=== PATIENT | male | born 1990 | race African-American/Black ===

== ENCOUNTER 2023-03-05 01:16 | Emergency (ER) | payer OTHER, SELFPAY ==
--- NOTE | ~2023-03-05 | XR_ITS ---
Clinical Indication: Chest pain PA and lateral views of the chest: Comparison: None Findings: The lungs are clear, without evidence of focal consolidation or pleural effusion. Cardiome diastinal silhouette is within normal limits. Bones and soft tissues are unremarkable. Impression: Normal chest. Reviewed, dictated and finalized at location . Impression: Normal chest.
--- NOTE | 2023-03-05 01:19 | ECG_ITS ---
Measurements Intervals [place] Rate: 93 P: 47 AR: 167 QRS: 83 QRSD: 102 T: -15 QT: 311 QTc: 387 Interpretive Statements SINUS RHYTHM POSSIBLE LEFT ATRIAL ENLARGEMENT [-0.1mV P WAVE IN V1/V2] POSSIBLE LEFT VENTRICULAR HYPERTROPHY [VOLTAGE CRITERIA PLUS LAE OR QRS WIDENING] ST SEGMENT ELEVATION CONSISTENT WITH ACUTE ANTERIOR WALL CO ABNORMAL ECG ACUTE CO NO PREVIOUS ECG AVAILABLE FOR COMPARISON Electronically Signed On 03-05-2023 13:01:17 CDT by Kev Pereira M.D.
[2023-03-05 01:24] VITALS: BP 118/84; PULSE 99; RESP 14; O2SAT 97
[2023-03-05 01:32] VITALS: PULSE 90
[2023-03-05 01:44] LABS: Basophils Percent Auto 0.3 % (0.2-1.2); Eosinophils Absolute Auto 0.2 K/mm3 (0-0.3); Eosinophils Percent Auto 2.9 % (0-4.4); Hematocrit 41.6 % (42.0-52.0); Hemoglobin 13.5 g/dL (14.0-18.0); Immature Granulocyte Absolute 0.01 K/mm3 (0.00-0.031); Immature Granulocyte Percent A 0.2 % (0-0.5); Lymphocytes Absolute Auto 1.81 K/mm3 (0.9-3.2); Lymphocytes Percent Auto 29.6 % (18.3-44.2); Mean Corpuscular HGB Conc 32.5 g/dl (32-36); Mean Corpuscular Hemoglobin 29.1 pg (26-34); Mean Corpuscular Volume 89.7 fl (80-100); Mean Platelet Volume 9.8 fl (7.4-10.4); Monocytes Absolute Auto 0.7 K/mm3 (0.1-0.6); Monocytes Percent Auto 11.1 % (2.6-8.5); Neutrophils Absolute Auto 3.4 K/mm3 (1.3-6.7); Neutrophils Percent Auto 55.9 % (45.5-73.1); Platelet Count Result 242 k/mm3 (150-375); Red Blood Count 4.64 M/mm3 (4.6-6.20); White Blood Count 6.1 K/mm3 (4.5-10.0)
[2023-03-05 01:56] LABS: Partial Thromboplastin Time 29.7 SECONDS (22.3-36.8)
[2023-03-05 01:58] LABS: Alanine Aminotransferase 29 U/L (6-50); Albumin Level 4.4 g/dL (3.5-5.1); Alkaline Phosphatase 61 U/L (38-126); Anion Gap 9 mmol/L (8-16); Aspartate Amino Transferase 35 U/L (17-59); Bilirubin,Total 0.2 mg/dL (0.2-1.3); Blood Urea Nitrogen 18 mg/dL (9-20); Calcium 9.2 mg/dL (8.4-10.2); Carbon Dioxide 21 mmol/L (22-30); Chloride 105 mmol/L (98-107); Estimated CRCL calculation 80 ml/min; Estimated Glomerular Filt Rate > 60; Glucose 105 mg/dL (65-110); Lipase 95 U/L (23-300); Potassium 4.1 mmol/L (3.4-5.0); Sodium 135 mmol/L (137-145)
[2023-03-05 02:00] VITALS: BP 125/78; PULSE 89; RESP 16; O2SAT 100
[2023-03-05 02:10] LABS: Troponin I < 0.012 ng/mL (0.000-0.034)
--- NOTE | 2023-03-05 02:48 | ED.GENADULT ---
HPI - General Adult General Chief complaint: Chest Pain Stated complaint: CHEST PAIN Time Seen by Provider: 03/05/23 01:24 History of Present Illness HPI narrative: Patient is a 32-year-old gentleman who presents the emergency department with chief complaint of chest pain. Patient reports has been having chest pain for some time reports has been seen at both [place] and [place] and has been told that he had something irritating his heart and was given a prescription for steroids and ibuprofen patient reports that is not getting any better and reports that he has not followed up. Related Data Allergies Allergy/AdvReac Type Severity Reaction Status Date / Time No Known Allergies Allergy Verified 03/05/23 02:11 Review of Systems Review of Systems: A 10 system review of systems was completed on the patient and is negative except for what is stated in the HPI. Nursing and ancillary documentation was reviewed. Exam Narrative: GENERAL: Well-appearing, well-nourished, and in no acute distress. HEAD: Normocephalic, atraumatic. EYES: PERRLA and EOMI. ENT: Nares clear, no rhinorrhea or epistaxis. Mucous membranes moist. NECK: Supple. CHEST: Clear to auscultation. No respiratory distress. HEART: Regular rate and rhythm. No murmur heard. Normal peripheral pulses. ABDOMEN: Soft, nontender, nondistended, normal active bowel sounds. EXTREMITIES: Normal range of motion. No edema. SKIN: Warm, dry, no rash. NEURO: No focal deficits. Alert and oriented x3. PSYCH: Normal mood and affect. Course Vital Signs Vital signs: Vital Signs Pulse Rate 99 03/05/23 01:24 Respiratory Rate 14 03/05/23 01:24 Blood Pressure 118/84 03/05/23 01:24 Pulse Oximetry 97 03/05/23 01:24 Oxygen Delivery Room Air 03/05/23 01:24 Pulse Rate 90 03/05/23 01:32 Respiratory Rate 14 03/05/23 01:24 Blood Pressure 118/84 03/05/23 01:24 Pulse Oximetry 97 03/05/23 01:24 Oxygen Delivery Room Air 03/05/23 01:24 Medical Decision Making [facility] Narrative Medical decision making narrative: Differential diagnosis includes ACS, STEMI, pericarditis, EKG showed diffuse ST elevations present with a rate of 93 EKG was compared to previous EKG from [place] that was obtained which showed pericarditis picture similar to today's EKG Laboratory studies were obtained and otherwise normal The patient be started on colchicine and also given a prescription for prednisone Vital Signs Vital Signs: Vital Signs Pulse Rate 99 03/05/23 01:24 Respiratory Rate 14 03/05/23 01:24 Blood Pressure 118/84 03/05/23 01:24 Pulse Oximetry 97 03/05/23 01:24 Oxygen Delivery Room Air 03/05/23 01:24 Pulse Rate 90 03/05/23 01:32 Respiratory Rate 14 03/05/23 01:24 Blood Pressure 118/84 03/05/23 01:24 Pulse Oximetry 97 03/05/23 01:24 Oxygen Delivery Room Air 03/05/23 01:24 Lab Data 03/05/23 01:39 03/05/23 01:39 Labs: Lab Results 03/05/23 Range/Units 01:39 WBC 6.1 (4.5-10.0) K/mm3 RBC 4.64 (4.6-6.20) M/mm3 Hgb 13.5 L (14.0-18.0) g/dL Hct 41.6 L (42.0-52.0) % MCV 89.7 (80-100) fl MCH 29.1 (26-34) pg MCHC 32.5 (32-36) g/dl RDW 14.0 (11.5-14.5) % Plt Count 242 (150-375) k/mm3 MPV 9.8 (7.4-10.4) fl Immature Gran % (Auto) 0.2 (0-0.5) % Neut % (Auto) 55.9 (45.5-73.1) % Lymph % (Auto) 29.6 (18.3-44.2) % [place] % (Auto) 11.1 H (2.6-8.5) % Eos % (Auto) 2.9 (0-4.4) % Baso % (Auto) 0.3 (0.2-1.2) % Lymph # (Auto) 1.81 (0.9-3.2) K/mm3 [place] # (Auto) 0.7 H (0.1-0.6) K/mm3 Eos # (Auto) 0.2 (0-0.3) K/mm3 Baso # (Auto) 0.0 (0.0-0.1) K/mm3 Abs Immat Gran (auto) 0.01 (0.00-0.031) K/mm3 Absolute Neuts (auto) 3.4 (1.3-6.7) K/mm3 Absolute Nucleated RBC 0.0 (0.0-0.012) K/mm3 Nucleated RBC % 0.0 (0.0-0.2) % PT 14.0 (11.1-14.7) Seconds INR 1.0 APTT 29.7 (22.3-36.8) SECONDS Sodium 135 L (137-145) mmol/L
[2023-03-05 03:15] VITALS: BP 126/69; PULSE 70; RESP 16; O2SAT 100
== END 2023-03-05 03:15 | disposition home or self-care (01) ==
PROVIDERS: Emergency Provider Emergency Medicine
DX: I31.9 Disease of pericardium, unspecified (principal); R94.31 Abnormal electrocardiogram [ECG] [EKG]
CPT/HCPCS: 36415; 71046; 80053; 83690; 84484; 85025; 85610; 85730; 93005; 99284

== ENCOUNTER 2023-06-13 16:19 | Emergency (ER) | payer OTHER, SELFPAY ==
[2023-06-13] VITALS (7 sets, daily range): BP systolic 103–138; BP diastolic 66–83; PULSE 59–71; RESP 8–20; TEMP 36.2–36.6; O2SAT 96–100
--- NOTE | ~2023-06-13 | XR_ITS ---
EXAMINATION: XR chest 1V portable Exam Date/Time: 06/13/2023 16:23 JUDICIAL ASSISTANT HISTORY: cp onset this P.M.; smoker Comparison: 03/05/2023. RESULT: Lines, tubes, and devices: None. Lungs and pleura: Clear. Cardiomediastinal silhouette: Stable. Other: No acute osseous or upper abdominal finding. IMPRESSION: No acute cardiopulmonary process. Reviewed, dictated and finalized at location K. CIAL ASSISTANT
--- NOTE | 2023-06-13 16:21 | ECG_ITS ---
Measurements Intervals [place] Rate: 62 P: 32 SD: 172 QRS: 83 QRSD: 106 T: 50 QT: 364 QTc: 370 Interpretive Statements SINUS RHYTHM WITH SINUS ARRHYTHMIA VOLTAGE CRITERIA FOR LVH ST ELEVATION IN DIFFUSE LEADS- CONSIDER PERICARDITIS, ACUTE INJURY OR EARLY REPOLARIZATION ABNORMALITY ABNORMAL ECG COMPARED TO ECG 03/05/2023 01:22:26 SINUS ARRHYTHMIA NOW PRESENT Electronically Signed On 06-13-2023 19:27:04 TRANSPORT ENGINEER by Juvenal Arteaga D.O.
[2023-06-13 16:41] LABS: Basophils Percent Auto 0.4 % (0.2-1.2); Eosinophils Absolute Auto 0.2 K/mm3 (0-0.3); Eosinophils Percent Auto 4.3 % (0-4.4); Hematocrit 40.8 % (42.0-52.0); Hemoglobin 13.1 g/dL (14.0-18.0); Immature Granulocyte Absolute 0.01 K/mm3 (0.00-0.031); Immature Granulocyte Percent A 0.2 % (0-0.5); Lymphocytes Absolute Auto 1.54 K/mm3 (0.9-3.2); Lymphocytes Percent Auto 32.9 % (18.3-44.2); Mean Corpuscular HGB Conc 32.1 g/dl (32-36); Mean Corpuscular Hemoglobin 28.7 pg (26-34); Mean Corpuscular Volume 89.3 fl (80-100); Mean Platelet Volume 9.6 fl (7.4-10.4); Monocytes Absolute Auto 0.6 K/mm3 (0.1-0.6); Neutrophils Absolute Auto 2.4 K/mm3 (1.3-6.7); Neutrophils Percent Auto 50.2 % (45.5-73.1); Platelet Count Result 237 k/mm3 (150-375); Red Blood Count 4.57 M/mm3 (4.6-6.20); Red Cell Distribution Width 14.6 % (11.5-14.5); White Blood Count 4.7 K/mm3 (4.5-10.0)
[2023-06-13] MEDS: ASPIRIN 81 MG CHEWABLE TABLET 324 MG PO (16:42)
[2023-06-13 17:00] LABS: Partial Thromboplastin Time 27.8 SECONDS (22.3-36.8); Prothrombin Time 13.8 Seconds (11.1-14.7)
--- NOTE | 2023-06-13 17:30 | ED.CHESTPAIN ---
HPI - Chest Pain General Chief Complaint: Chest Pain Stated Complaint: chest pain Time Seen by Provider: 06/13/23 16:34 History of Present Illness HPI narrative: Patient is a 33-year-old male with a history of pericarditis presenting with chest pain. States that the chest pain started couple of hours ago. States that he was not doing anything when it started. States that it feels like prior episodes when he was told he had pericarditis. States that he has had nasal congestion lately that he has attributed to his allergies. No shortness of breath, leg swelling, abdominal pain, nausea or vomiting, fevers or chills. No further complaints. Related Data Allergies Allergy/AdvReac Type Severity Reaction Status Date / Time No Known Allergies Allergy Verified 03/05/23 02:11 Review of Systems Review of Systems: All systems reviewed & are unremarkable except as noted in HPI and below Exam Narrative: GENERAL: Well-appearing, in no acute distress, pleasant and cooperative HEAD: Normocephalic, atraumatic. EYES: PERRLA and EOMI. ENT: Grossly unremarkable NECK: Supple. CHEST: Clear to auscultation. No respiratory distress. HEART: Regular rate and rhythm. No murmur heard. Left-sided chest wall tenderness ABDOMEN: Soft, nontender, nondistended EXTREMITIES: Normal range of motion. No edema. SKIN: Warm, dry, no rash. NEURO: No focal deficits. Alert and oriented x3. PSYCH: Normal mood and affect. Course Vital Signs Vital signs: Vital Signs Temperature 97.1 F L 06/13/23 16:22 Pulse Rate 61 06/13/23 16:22 Respiratory Rate 12 06/13/23 16:22 Blood Pressure 118/66 06/13/23 16:22 Pulse Oximetry 99 06/13/23 16:22 Oxygen Delivery Room Air 06/13/23 16:22 Temperature 97.9 F 06/13/23 17:16 Pulse Rate 71 06/13/23 19:31 Respiratory Rate 20 06/13/23 19:31 Blood Pressure 138/83 06/13/23 19:31 Pulse Oximetry 96 06/13/23 19:31 Oxygen Delivery Room Air 06/13/23 16:39 MDM - Chest Pain MDM Narrative Medical decision making narrative: 33-year-old male presenting with chest pain. Vitals are stable. EKG with ST elevations in leads I, 2, 3, aVF, V3 through V6. It appears very similar to her prior EKG from 3 months ago. There have been some improvements in the elevations and T wave inversions. Blood work is unremarkable. Troponins undetectable x2. Renal function normal. Patient given fluids and Toradol and reports improvement in his pain. States that he actually has an appointment with a mechanical research engineer in a week. Strongly advised that he keep this appointment. We will start him on some prednisone and high-dose ibuprofen. Appropriate return precautions given. Discharged in stable condition. Differential Diagnosis Differential diagnosis: Likely atypical chest pain, costochondritis and chest pain Medical Records Data Attestation: I reviewed the patient's medical records. Lab Data Attestation: I reviewed the patient's lab results. 06/13/23 16:36 06/13/23 16:58 Labs: Lab Results 06/13/23 06/13/23 06/13/23 Range/Units 16:36 16:58 19:29 WBC 4.7 (4.5-10.0) K/mm3 RBC 4.57 L (4.6-6.20) M/mm3 Hgb 13.1 L (14.0-18.0) g/dL Hct 40.8 L (42.0-52.0) % MCV 89.3 (80-100) fl MCH 28.7 (26-34) pg MCHC 32.1 (32-36) g/dl RDW 14.6 H (11.5-14.5) % Plt Count 237 (150-375) k/mm3 MPV 9.6 (7.4-10.4) fl Immature Gran % (Auto) 0.2 (0-0.5) % Neut % (Auto) 50.2 (45.5-73.1) % Lymph % (Auto) 32.9 (18.3-44.2) % [place] % (Auto) 12.0 H (2.6-8.5) % Eos % (Auto) 4.3 (0-4.4) % Baso % (Auto) 0.4 (0.2-1.2) % Lymph # (Auto) 1.54 (0.9-3.2) K/mm3 [place] # (Auto) 0.6 (0.1-0.6) K/mm3 Eos # (Auto) 0.2 (0-0.3) K/mm3 Baso # (Auto) 0.0 (0.0-0.1) K/mm3 Abs Immat Gran (auto) 0.01 (0.00-0.031) K/mm3 Absolute Neuts (auto) 2.4 (1.3-6.7) K/mm3 Absolute Nucleated RBC 0.0 (0.0-0.012) K/mm3 Nucleated RB
[2023-06-13 17:34] LABS: Alanine Aminotransferase 22 U/L (6-50); Albumin Level 4.3 g/dL (3.5-5.1); Alkaline Phosphatase 44 U/L (38-126); Anion Gap 7 mmol/L (8-16); Aspartate Amino Transferase 29 U/L (17-59); Bilirubin,Total 0.7 mg/dL (0.2-1.3); Blood Urea Nitrogen 10 mg/dL (9-20); Calcium 9.4 mg/dL (8.4-10.2); Carbon Dioxide 28 mmol/L (22-30); Chloride 106 mmol/L (98-107); Estimated CRCL calculation 81 ml/min; Estimated Glomerular Filt Rate > 60; Glucose 97 mg/dL (65-110); Lipase 74 U/L (23-300); Potassium 4.3 mmol/L (3.4-5.0); Sodium 141 mmol/L (137-145)
[2023-06-13 17:46] LABS: Troponin I < 0.012 ng/mL (0.000-0.034)
[2023-06-13] MEDS: KETOROLAC 30 MG/ML VIAL (*BKC) IV PUSH (18:03)
[2023-06-13 19:55] LABS: Troponin I < 0.012 ng/mL (0.000-0.034)
== END 2023-06-13 20:36 | disposition home or self-care (01) ==
PROVIDERS: Emergency Medicine; Emergency Provider Emergency Medicine
DX: I31.9 Disease of pericardium, unspecified (principal); R94.31 Abnormal electrocardiogram [ECG] [EKG]
CPT/HCPCS: 36415; 71045; 80053; 83690; 84484; 85025; 85610; 85730; 93005; 96374; 99284; A9270; J1885

== ENCOUNTER 2023-06-26 08:47 | Emergency (ER) | payer OTHER, SELFPAY ==
[2023-06-26] VITALS (13 sets, daily range): BP systolic 122–144; BP diastolic 81–96; PULSE 47–80; RESP 10–20; TEMP 36.8; O2SAT 89–100
--- NOTE | ~2023-06-26 | CT_ITS ---
EXAMINATION: CT abdomen pelvis w con INDICATION: Epigastric pain TECHNIQUE: Computed tomographic images of the abdomen and pelvis were obtained after the administrati on of 100 cc of Omnipaque 350 intravenous contrast. The dose-length product (DLP) was 328.72 mGy-cm. Automated exposure control and iterative reconstruction technique were employed. COMPARISON: None available FINDINGS: The lung bases are clear. The heart size is normal. The liver, spleen, pancreas, gallbladde r, and adrenal glands are normal. Cysts of the kidneys measure up to 12 mm on the right. There is a 3 mm nonobstructing stone of the left kidney. No pathologically enlarged abdominal or pelvic lymph nod es are identified. No free intraperitoneal gas or evidence of bowel obstruction. The appendix is norm al. A moderate volume of colonic stool is present. IMPRESSION: 1. No CT correlate for the patient's symptoms. Reviewed, dictated and finalized at location A. SLIDER
--- NOTE | ~2023-06-26 | XR_ITS ---
EXAMINATION: XR chest 1V portable INDICATION: Chest pain and vomiting TECHNIQUE: Portable AP chest at 0945 hours COMPARISON: 06/13/2023 FINDINGS: The lungs are free of acute opacities. No pleural effusion or pneumothorax. The cardiomedia stinal silhouette is normal. IMPRESSION: 1. No acute cardiopulmonary abnormality. Reviewed, dictated and finalized at location A. TICAL NURSING INSTRUCTOR
--- NOTE | 2023-06-26 08:51 | ECG_ITS ---
Measurements Intervals [place] Rate: 62 P: 29 ME: 140 QRS: 81 QRSD: 103 T: 64 QT: 376 QTc: 384 Interpretive Statements SINUS RHYTHM ST ELEVATION IN DIFFUSE LEADS- CONSIDER PERICARDITIS, ACUTE INJURY OR EARLY REPOLARIZATION ABNORMALITY ABNORMAL ECG COMPARED TO ECG 06/13/2023 16:25:52 NO SIGNIFICANT CHANGES Electronically Signed On 06-26-2023 12:22:18 WASTE WATER TREATMENT PLANT OPERATOR by Juvenal Arteaga D.O.
--- NOTE | 2023-06-26 09:28 | ED.GENADULT ---
HPI - General Adult General Chief complaint: Nausea/Vomiting/Diarrhea Stated complaint: hematemesis Time Seen by Provider: 06/26/23 09:01 Source: patient Mode of arrival: ambulatory Limitations: no limitations History of Present Illness HPI narrative: This is a 33-year-old male with PMH of pericarditis who presents to the ED with chief complaint of 1 episode of hematemesis about 30 minutes prior to arrival this morning around 7:30 a.m.. Reports that he woke up this morning and started to have some central sharp chest pain. He states when he was going for a walk he had 1 episode of emesis. Reports there was red streaking in the vomit. He has had no episodes since but does feel little bit nauseous. Reports that he has some shortness of breath with exertion but feels okay lying in the bed. Patient endorses taking ibuprofen for around 8 months ever since being 1st diagnosed with pericarditis. Denies fevers, chills, diarrhea, neck pain, headache, rectal bleeding. Related Data Allergies Allergy/AdvReac Type Severity Reaction Status Date / Time No Known Allergies Allergy Verified 06/26/23 08:49 Review of Systems Review of Systems: All systems as dictated in HPI Exam Narrative: GENERAL: Well-appearing, well-nourished, and in no acute distress. HEAD: Normocephalic, atraumatic. EYES: PERRLA and EOMI. ENT: Nares clear, no rhinorrhea or epistaxis. Mucous membranes moist. Oropharynx without tonsillar hypertrophy exudate or other lesions. NECK: Supple. No adenopathy or masses. CHEST: No respiratory distress. Clear to auscultation. No wheezes rales or rhonchi. Tenderness inferior to the xiphoid process. 99% on room air. HEART: Regular rate and rhythm. No murmur heard. Normal peripheral pulses. ABDOMEN: Tenderness to the epigastrium. soft, otherwise nontender, nondistended, normal active bowel sounds. Negative peritoneal signs. MSK: Normal range of motion. No edema. SKIN: Warm, dry, no rash. NEURO: Alert and oriented x3. No focal deficits. PSYCH: Normal mood and affect. Course Course Emergency Course: Re-evaluation at 11:51 a.m: Feeling slightly improved with GI cocktail. Minimal relief with morphine. Vital Signs Vital signs: Vital Signs Temperature 98.2 F 06/26/23 08:40 Pulse Rate 74 06/26/23 08:40 Respiratory Rate 15 06/26/23 08:40 Blood Pressure 134/85 06/26/23 08:40 Pulse Oximetry 100 06/26/23 08:40 Oxygen Delivery Room Air 06/26/23 08:40 Temperature 98.2 F 06/26/23 08:40 Pulse Rate 57 L 06/26/23 11:30 Respiratory Rate 12 06/26/23 11:30 Blood Pressure 122/85 06/26/23 11:16 Pulse Oximetry 99 06/26/23 11:30 Oxygen Delivery Room Air 06/26/23 08:40 Medical Decision Making MDM Narrative Medical decision making narrative: This is a 33-year-old male who presents to the ED with chief complaint of an episode of vomiting with blood streaks. He also had some chest pain this morning. History of pericarditis this year. vitals are normal. exam reveals the subxiphoid and epigastric tenderness. EKG shows diffuse ST elevations but are unchanged from previous visit. Lab work is largely unremarkable. Normal white count. CMP reveals very slightly elevated potassium of 5.4. Serial troponins negative. Heart score 1. Wells score for PE is 0, Very low suspicion for any kind of thromboembolic event. Urinalysis negative. Lipase normal. Chest x-ray normal. CT abdomen and pelvis: 1. No CT correlate for the patient's symptoms. No evidence of any pericardial effusion on the CT scan. Feel that his symptoms are more likely consistent possible gastric ulcer as he has been taking ibuprofen for the past 8 months and has epigastric pain/tenderness. Pericarditis is could certainly still be a component of his pain today. Able tolerate p.o., no vomiting episodes here in the ED. morphine provided minimal relief but GI cocktail helped slightly. He already has pantoprazole. I gave him
[2023-06-26 09:32] LABS: Basophils Percent Auto 0.6 % (0.2-1.2); Eosinophils Absolute Auto 0.2 K/mm3 (0-0.3); Eosinophils Percent Auto 3.5 % (0-4.4); Hematocrit 43.8 % (42.0-52.0); Hemoglobin 13.9 g/dL (14.0-18.0); Immature Granulocyte Absolute 0.02 K/mm3 (0.00-0.031); Immature Granulocyte Percent A 0.4 % (0-0.5); Lymphocytes Absolute Auto 1.56 K/mm3 (0.9-3.2); Lymphocytes Percent Auto 28.9 % (18.3-44.2); Mean Corpuscular HGB Conc 31.7 g/dl (32-36); Mean Corpuscular Hemoglobin 28.9 pg (26-34); Mean Corpuscular Volume 91.1 fl (80-100); Mean Platelet Volume 9.9 fl (7.4-10.4); Monocytes Absolute Auto 0.6 K/mm3 (0.1-0.6); Monocytes Percent Auto 11.1 % (2.6-8.5); Neutrophils Percent Auto 55.5 % (45.5-73.1); Platelet Count Result 239 k/mm3 (150-375); Red Blood Count 4.81 M/mm3 (4.6-6.20); Red Cell Distribution Width 14.7 % (11.5-14.5); White Blood Count 5.4 K/mm3 (4.5-10.0)
[2023-06-26] MEDS: ONDANSETRON INJ 4 MG/2 ML VIAL IV PUSH (09:40)
[2023-06-26] MEDS: MORPHINE SULFATE (*CRX) 4 MG/ML INJ IV PUSH (09:40)
[2023-06-26 09:48] LABS: Alanine Aminotransferase 20 U/L (6-50); Albumin Level 4.5 g/dL (3.5-5.1); Alkaline Phosphatase 49 U/L (38-126); Anion Gap 9 mmol/L (8-16); Aspartate Amino Transferase 33 U/L (17-59); Bilirubin,Total 0.6 mg/dL (0.2-1.3); Blood Urea Nitrogen 15 mg/dL (9-20); Calcium 9.3 mg/dL (8.4-10.2); Carbon Dioxide 22 mmol/L (22-30); Chloride 106 mmol/L (98-107); Estimated CRCL calculation 100 ml/min; Estimated Glomerular Filt Rate > 60; Glucose 96 mg/dL (65-110); Lipase 112 U/L (23-300); Potassium 5.4 mmol/L (3.4-5.0); Sodium 137 mmol/L (137-145)
[2023-06-26 09:58] LABS: Troponin I < 0.012 ng/mL (0.000-0.034)
[2023-06-26 10:41] LABS: Appearance Urine Clear (Clear); Bacteria Urine None Seen /hpf; Bilirubin Urine Negative (Negative); Blood Urine 1+ (Negative); Color Urine Yellow (Yellow); Glucose Urine UA Negative (Negative); Ketones Urine Negative (Negative); Leukocyte Esterase Ur Negative LEU/UL (Negative); Nitrate Urine Negative (Negative); Non Pathogenic Casts 0-2; Protein Urine Negative (Negative); RBC Urine 0-2 /hpf (0-2); Specific Grav Ur 1.019 (1.001-1.035); Squamous Epithelial Cell Urine None seen /hpf (Few); Urobilinogen Urine 0.2 mg/dL (<2.0); WBC Urine 0-5 /hpf
[2023-06-26 10:44] LABS: Add Urine Microscopic? YES
[2023-06-26] MEDS: BELLADONNA ALK/PHENOB ELIX 10 ML, MAG HYDROX/ALUMINUM HYD/SIMETH 30 ML, LIDOCAINE HCL 2... PO (10:58)
[2023-06-26 12:46] LABS: Troponin I < 0.012 ng/mL (0.000-0.034)
== END 2023-06-26 14:20 | disposition home or self-care (01) ==
PROVIDERS: Emergency Medicine; Emergency Provider Physician Assistant
DX: R10.13 Epigastric pain (principal); R94.31 Abnormal electrocardiogram [ECG] [EKG]
CPT/HCPCS: 36415; 71045; 74177; 80053; 81001; 83690; 84484; 85025; 93005; 96374; 96375; 99284; A9270; J2270; J2405; Q9967

== ENCOUNTER 2023-08-06 15:48 | Emergency (ER) | payer OTHER, SELFPAY ==
[2023-08-06 15:54] VITALS: BP 141/83; PULSE 110; RESP 18; TEMP 36.7; O2SAT 96
--- NOTE | 2023-08-06 16:48 | PC.NURSE ---
Pt stated to this RN that he lost his unborn daughter 1 week ago and stated that his significant other was 7 months at the time. Pt also stated he believes his family does not love him anymore. States he was treated not too long ago at [facility] for the same thing and discharged from their facility.
[2023-08-06 16:51] LABS: Basophils Percent Auto 0.4 % (0.2-1.2); Eosinophils Absolute Auto 0.1 K/mm3 (0-0.3); Eosinophils Percent Auto 1.8 % (0-4.4); Hematocrit 41.9 % (42.0-52.0); Hemoglobin 13.2 g/dL (14.0-18.0); Immature Granulocyte Absolute 0.01 K/mm3 (0.00-0.031); Immature Granulocyte Percent A 0.2 % (0-0.5); Lymphocytes Absolute Auto 1.43 K/mm3 (0.9-3.2); Lymphocytes Percent Auto 28.2 % (18.3-44.2); Mean Corpuscular HGB Conc 31.5 g/dl (32-36); Mean Corpuscular Hemoglobin 28.2 pg (26-34); Mean Corpuscular Volume 89.5 fl (80-100); Mean Platelet Volume 9.4 fl (7.4-10.4); Monocytes Absolute Auto 0.6 K/mm3 (0.1-0.6); Monocytes Percent Auto 10.8 % (2.6-8.5); Neutrophils Percent Auto 58.6 % (45.5-73.1); Platelet Count Result 265 k/mm3 (150-375); Red Blood Count 4.68 M/mm3 (4.6-6.20); Red Cell Distribution Width 13.8 % (11.5-14.5); White Blood Count 5.1 K/mm3 (4.5-10.0)
[2023-08-06 16:52] VITALS: BP 121/75; PULSE 104; RESP 17; O2SAT 97
[2023-08-06 17:00] LABS: Acetaminophen < 10 ug/mL (10-30); Ethanol < 10 mg/dL (<10); Salicylate < 1.0 mg/dL (2-20)
[2023-08-06 17:01] LABS: Alanine Aminotransferase 24 U/L (6-50); Albumin Level 4.3 g/dL (3.5-5.1); Alkaline Phosphatase 55 U/L (38-126); Anion Gap 11 mmol/L (8-16); Aspartate Amino Transferase 29 U/L (17-59); Bilirubin,Total 0.5 mg/dL (0.2-1.3); Blood Urea Nitrogen 8 mg/dL (9-20); Calcium 9.1 mg/dL (8.4-10.2); Carbon Dioxide 25 mmol/L (22-30); Chloride 103 mmol/L (98-107); Estimated CRCL calculation 97 ml/min; Estimated Glomerular Filt Rate > 60; Glucose 126 mg/dL (65-110); Potassium 3.6 mmol/L (3.4-5.0); Sodium 139 mmol/L (137-145)
[2023-08-06 17:06] LABS: Amphetamine Screen Urine Negative (Negative); Barbiturate Screen Urine Negative (Negative); Benzodiazepines Screen Urine Negative (Negative); Cannabinoid Screen Urine Positive (Negative); Cocaine Screen Urine Negative (Negative); Methadone Screen Urine Negative (Negative); Opiate Screen Urine Negative (Negative); Phencyclidine Screen Urine Negative (Negative)
[2023-08-06 17:11] LABS: Appearance Urine Clear (Clear); Bacteria Urine None Seen /hpf; Bilirubin Urine Negative (Negative); Blood Urine 2+ (Negative); Color Urine Yellow (Yellow); Glucose Urine UA Negative (Negative); Ketones Urine Trace mg/dL (Negative); Leukocyte Esterase Ur Trace LEU/UL (Negative); Mucus Urine Present /lpf; Need Manual Microscopic Reviewed; Nitrate Urine Negative (Negative); Protein Urine Trace mg/dL (Negative); RBC Urine 51-100 /hpf (0-2); Specific Grav Ur 1.024 (1.001-1.035); Squamous Epithelial Cell Urine None seen /hpf (Few); WBC Urine 0-5 /hpf; pH Urine 6.5 (5.0-9.0)
[2023-08-06 17:13] LABS: Add Urine Microscopic? YES
[2023-08-06 17:28] LABS: SARS-CoV-2 RNA PCR Negative (Negative)
[2023-08-06 17:35] LABS: Thyroid Stimulating Hormone 0.036 uIU/mL (0.465-4.680)
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
--- NOTE | 2023-08-06 19:15 | PC.NURSE ---
Report given to Anna SETH, all questions answered
--- NOTE | 2023-08-06 20:54 | PC.NURSE ---
Pt was medically cleared by ED provider Dr. Lemons at 1744
--- NOTE | 2023-08-06 22:55 | PC.NURSE ---
Pt accepted at [facility] in [facility]. accepting doctor is Dr. Walton, pt going to room 103 bed 1. Facility to return this Rns phone call for nurse report.
--- NOTE | 2023-08-06 23:01 | PC.NURSE ---
Nurse to nurse report given at this time.
--- NOTE | 2023-08-07 02:23 | PC.NURSE ---
Transport set for pt @[address] conditions[address]
[2023-08-07 06:24] VITALS: BP 105/73; PULSE 62; RESP 18; TEMP 36.6; O2SAT 100
[2023-08-07 07:30] VITALS: BP 118/68; PULSE 68; RESP 16; TEMP 36.4; O2SAT 98
[2023-08-07 08:30] VITALS: BP 116/68; PULSE 68; RESP 16; TEMP 36.6; O2SAT 100
[2023-08-07 09:54] VITALS: BP 118/66; PULSE 70; RESP 16; TEMP 36.8; O2SAT 98
== END 2023-08-07 09:55 ==
PROVIDERS: Emergency Medicine; Emergency Provider Emergency Medicine
DX: R45.851 Suicidal ideations (principal); Z11.52 Encounter for screening for COVID-19; F32.A Depression, unspecified
CPT/HCPCS: 36415; 80053; 80307; 81001; 84443; 85025; 87635; 99285

== ENCOUNTER 2023-08-13 02:43 | Emergency (ER) | payer OTHER, SELFPAY ==
--- NOTE | ~2023-08-13 | XR_ITS ---
Clinical Indication: Chest pain PA and lateral views of the chest: Comparison: 06/26/2023 Findings: The lungs are clear, without evidence of focal consolidation or pleural effusion. Cardiome diastinal silhouette is within normal limits. Bones and soft tissues are unremarkable. Impression: Normal chest. Reviewed, dictated and finalized at location . IST/OWNER Impression: Normal chest.
--- NOTE | 2023-08-13 02:55 | ECG_ITS ---
Measurements Intervals [place] Rate: 60 P: -11 AR: 144 QRS: 83 QRSD: 111 T: 36 QT: 390 QTc: 391 Interpretive Statements SINUS RHYTHM WITH SINUS ARRHYTHMIA INCOMPLETE LEFT BUNDLE BRANCH BLOCK ST ELEVATION IN ANTEROLAT/INF LEADS- CONSIDER PERICARDITIS, ACUTE INJURY OR EARLY REPOLARIZATION ABNORMALITY ABNORMAL ECG COMPARED TO ECG 06/26/2023 08:56:49 SINUS ARRHYTHMIA NOW PRESENT INCOMPLETE LEFT BUNDLE BRANCH BLOCK NOW PRESENT Electronically Signed On 08-13-2023 14:42:11 MORTGAGE UNDERWRITER by Juvenal Arteaga D.O.
[2023-08-13 03:04] VITALS: BP 126/69; PULSE 60; RESP 14; TEMP 36.4; O2SAT 99
[2023-08-13 03:12] LABS: Basophils Percent Auto 0.5 % (0.2-1.2); Eosinophils Absolute Auto 0.2 K/mm3 (0-0.3); Eosinophils Percent Auto 2.9 % (0-4.4); Hematocrit 39.8 % (42.0-52.0); Hemoglobin 12.4 g/dL (14.0-18.0); Immature Granulocyte Absolute 0.01 K/mm3 (0.00-0.031); Immature Granulocyte Percent A 0.2 % (0-0.5); Lymphocytes Absolute Auto 2.23 K/mm3 (0.9-3.2); Lymphocytes Percent Auto 40.8 % (18.3-44.2); Mean Corpuscular HGB Conc 31.2 g/dl (32-36); Mean Corpuscular Hemoglobin 28.8 pg (26-34); Mean Corpuscular Volume 92.3 fl (80-100); Mean Platelet Volume 9.6 fl (7.4-10.4); Monocytes Absolute Auto 0.7 K/mm3 (0.1-0.6); Monocytes Percent Auto 12.6 % (2.6-8.5); Neutrophils Absolute Auto 2.4 K/mm3 (1.3-6.7); Platelet Count Result 236 k/mm3 (150-375); Red Blood Count 4.31 M/mm3 (4.6-6.20); Red Cell Distribution Width 14.2 % (11.5-14.5); White Blood Count 5.5 K/mm3 (4.5-10.0)
[2023-08-13 03:23] LABS: Alanine Aminotransferase 28 U/L (6-50); Albumin Level 3.6 g/dL (3.5-5.1); Alkaline Phosphatase 57 U/L (38-126); Anion Gap 6 mmol/L (8-16); Aspartate Amino Transferase 41 U/L (17-59); Bilirubin,Total 0.2 mg/dL (0.2-1.3); Blood Urea Nitrogen 12 mg/dL (9-20); Calcium 8.7 mg/dL (8.4-10.2); Carbon Dioxide 25 mmol/L (22-30); Chloride 109 mmol/L (98-107); Estimated CRCL calculation 96 ml/min; Estimated Glomerular Filt Rate > 60; Glucose 92 mg/dL (65-110); Lipase 125 U/L (23-300); Potassium 4.2 mmol/L (3.4-5.0); Sodium 140 mmol/L (137-145)
[2023-08-13 03:34] LABS: Troponin I < 0.012 ng/mL (0.000-0.034)
[2023-08-13 03:36] LABS: Prothrombin Time 13.4 Seconds (11.1-14.7)
[2023-08-13 03:37] LABS: Partial Thromboplastin Time 28.2 SECONDS (22.3-36.8)
[2023-08-13 04:25] VITALS: BP 130/93; PULSE 64; RESP 13; TEMP 36.9; O2SAT 99
[2023-08-13 04:27] VITALS: PULSE 71
[2023-08-13] MEDS: KETOROLAC 30 MG/ML VIAL (*BKC) IM (04:38)
[2023-08-13 04:47] VITALS: BP 126/86; PULSE 70; RESP 15; O2SAT 100
[2023-08-13 05:01] VITALS: BP 128/84
--- NOTE | 2023-08-13 05:06 | ED.GENADULT ---
HPI - General Adult General Chief complaint: Chest Pain Stated complaint: CP Time Seen by Provider: 08/13/23 04:27 History of Present Illness HPI narrative: patient is a 33-year-old gentleman who presents emergency department with chief complaint of chest pain. Patient reports that he has history of pericarditis and reports that he started having sharp pain in his chest. the patient reports the pain is similar to recent pericarditis with for the past Related Data Allergies Allergy/AdvReac Type Severity Reaction Status Date / Time No Known Allergies Allergy Verified 08/06/23 16:53 Review of Systems Review of Systems: A 10 system review of systems was completed on the patient and is negative except for what is stated in the HPI. Nursing and ancillary documentation was reviewed. PMFSH Past Medical History Medical History Depression Pericarditis Surgical History Surgical History No pertinent past surgical history Social History Social History Substance use type: marijuana Exam Narrative: GENERAL: Well-appearing, well-nourished, and in no acute distress. HEAD: Normocephalic, atraumatic. EYES: PERRLA and EOMI. ENT: Nares clear, no rhinorrhea or epistaxis. Mucous membranes moist. NECK: Supple. CHEST: Clear to auscultation. No respiratory distress. HEART: Regular rate and rhythm. No murmur heard. Normal peripheral pulses. ABDOMEN: Soft, nontender, nondistended, normal active bowel sounds. EXTREMITIES: Normal range of motion. No edema. SKIN: Warm, dry, no rash. NEURO: No focal deficits. Alert and oriented x3. PSYCH: Normal mood and affect. Course Vital Signs Vital signs: Vital Signs Temperature 36.4 C 08/13/23 03:04 Pulse Rate 60 08/13/23 03:04 Respiratory Rate 14 08/13/23 03:04 Blood Pressure 126/69 08/13/23 03:04 Pulse Oximetry 99 08/13/23 03:04 Oxygen Delivery Room Air 08/13/23 03:04 Temperature 36.9 C 08/13/23 04:25 Pulse Rate 70 08/13/23 04:47 Respiratory Rate 15 08/13/23 04:47 Blood Pressure 128/84 08/13/23 05:01 Pulse Oximetry 100 08/13/23 04:47 Oxygen Delivery Room Air 08/13/23 04:25 Medical Decision Making MDM Narrative Medical decision making narrative: differential diagnosis includes pericarditis, ACS, atypical chest pain EKG is unchanged from previous study showing pericarditis. Laboratory studies were unremarkable patient was started back on indomethacin Vital Signs Vital Signs: Vital Signs Temperature 36.4 C 08/13/23 03:04 Pulse Rate 60 08/13/23 03:04 Respiratory Rate 14 08/13/23 03:04 Blood Pressure 126/69 08/13/23 03:04 Pulse Oximetry 99 08/13/23 03:04 Oxygen Delivery Room Air 08/13/23 03:04 Temperature 36.9 C 08/13/23 04:25 Pulse Rate 70 08/13/23 04:47 Respiratory Rate 15 08/13/23 04:47 Blood Pressure 128/84 08/13/23 05:01 Pulse Oximetry 100 08/13/23 04:47 Oxygen Delivery Room Air 08/13/23 04:25 Lab Data 08/13/23 03:04 08/13/23 03:04 Labs: Lab Results 08/13/23 Range/Units 03:04 WBC 5.5 (4.5-10.0) K/mm3 RBC 4.31 L (4.6-6.20) M/mm3 Hgb 12.4 L (14.0-18.0) g/dL Hct 39.8 L (42.0-52.0) % MCV 92.3 (80-100) fl MCH 28.8 (26-34) pg MCHC 31.2 L (32-36) g/dl RDW 14.2 (11.5-14.5) % Plt Count 236 (150-375) k/mm3 MPV 9.6 (7.4-10.4) fl Immature Gran % (Auto) 0.2 (0-0.5) % Neut % (Auto) 43.0 L (45.5-73.1) % Lymph % (Auto) 40.8 (18.3-44.2) % [place] % (Auto) 12.6 H (2.6-8.5) % Eos % (Auto) 2.9 (0-4.4) % Baso % (Auto) 0.5 (0.2-1.2) % Lymph # (Auto) 2.23 (0.9-3.2) K/mm3 [place] # (Auto) 0.7 H (0.1-0.6) K/mm3 Eos # (Auto) 0.2 (0-0.3) K/mm3 Baso # (Auto) 0.0 (0.0-0.1) K/mm3 Abs Immat Gran (a
== END 2023-08-13 06:10 | disposition home or self-care (01) ==
PROVIDERS: Emergency Provider Emergency Medicine
DX: I31.9 Disease of pericardium, unspecified (principal)
CPT/HCPCS: 36415; 71046; 80053; 83690; 84484; 85025; 85610; 85730; 93005; 96372; 99284; J1885

== ENCOUNTER 2023-08-15 17:36 | Emergency (ER) | payer OTHER, SELFPAY ==
[2023-08-15] VITALS (7 sets, daily range): BP systolic 121–151; BP diastolic 59–104; PULSE 79–102; RESP 18; TEMP 36.4–38.4; O2SAT 97–98
--- NOTE | ~2023-08-15 | XR_ITS ---
Portable chest x-ray Comparison: 08/13/2023 Clinical History: Hemoptysis Findings: Lungs are clear, without focal consolidation or pleural effusion. Cardiomediastinal silho uette is stable. Bones and soft tissues are unremarkable. Impression: Normal chest. Reviewed, dictated and finalized at [facility]. RANCE POLICY CLERK Impression: Normal chest.
[2023-08-15] MEDS: LACTATED RINGERS 1,000 ML 999 ML IV CONT (18:08)
[2023-08-15] MEDS: diazePAM INJ (*CRX) 10 MG/2 ML SYRINGE 5 MG IV PUSH (18:09)
[2023-08-15 18:25] LABS: Hematocrit 38.9 % (42.0-52.0); Hemoglobin 12.3 g/dL (14.0-18.0); Mean Corpuscular HGB Conc 31.6 g/dl (32-36); Mean Corpuscular Hemoglobin 28.5 pg (26-34); Mean Platelet Volume 9.5 fl (7.4-10.4); Platelet Count Result 194 k/mm3 (150-375); Red Blood Count 4.32 M/mm3 (4.6-6.20); White Blood Count 4.3 K/mm3 (4.5-10.0)
[2023-08-15 18:40] LABS: Prothrombin Time 13.2 Seconds (11.1-14.7)
[2023-08-15 18:41] LABS: Partial Thromboplastin Time 31.3 SECONDS (22.3-36.8)
[2023-08-15 18:53] LABS: Eosinophils Absolute Manual 0.08 K/mm3 (0.02-0.5); Eosinophils Percent Manual 2 % (0-4); Lymphocytes Absolute Manual 0.94 K/mm3 (1.1-4.5); Monocytes Absolute Manual 0.77 K/mm3 (0.1-0.90); Monocytes Percent Manual 18 % (3-9); Neutrophils Percent Manual 58 % (46-73); Platelet Estimate Adequate (Adequate); Schistocytes None Seen (NORMAL); Total Cells Counted 100
[2023-08-15 18:58] LABS: D Dimer 0.39 ug/mL (<0.48)
--- NOTE | 2023-08-15 19:11 | PC.NURSE ---
THIS RN ASSUMED CARE OF PATIENT. THIS RN TOOK PATIENT REPORT FROM DORINDA SHARMA.
[2023-08-15 19:27] LABS: Alanine Aminotransferase 39 U/L (6-50); Albumin Level 3.7 g/dL (3.5-5.1); Alkaline Phosphatase 54 U/L (38-126); Anion Gap 4 mmol/L (8-16); Aspartate Amino Transferase 40 U/L (17-59); Bilirubin,Total 0.3 mg/dL (0.2-1.3); Blood Urea Nitrogen 7 mg/dL (9-20); Calcium 8.5 mg/dL (8.4-10.2); Carbon Dioxide 28 mmol/L (22-30); Chloride 105 mmol/L (98-107); Estimated CRCL calculation 95 ml/min; Estimated Glomerular Filt Rate > 60; Glucose 91 mg/dL (65-110); Sodium 137 mmol/L (137-145)
[2023-08-15] MEDS: ACETAMINOPHEN 500 MG TABLET 1000 MG PO (19:47)
[2023-08-15] MEDS: KETOROLAC 30 MG/ML VIAL (*BKC) IM (19:47)
--- NOTE | 2023-08-15 20:42 | ED.GENADULT ---
HPI - General Adult General Chief complaint: Unspecified Stated complaint: coughing up blood Time Seen by Provider: 08/15/23 17:48 History of Present Illness HPI narrative: patient states that he has been having body aches, worse in his legs, as well as has a mild cough, he denies any chest pain whatsoever or shortness of breath, but he states that in their when he was coughing up sputum there was a little bit of blood-tinged sputum. He does have a history of pericarditis however he states that it is already he thinks resolved. No recent injury. No swelling in his legs. Related Data Allergies Allergy/AdvReac Type Severity Reaction Status Date / Time No Known Allergies Allergy Verified 08/06/23 16:53 Review of Systems Review of Systems: CONST: malaise HEENT: No sore throat C/V: No chest pain RESP: cough GI: No abdominal pain : No dysuria. M/S: body aches worse in his legs bilaterally SKIN: No rash. NEURO: [No headache or focal numbness or weakness] PSYCH: [No depression] [facility] Past Medical History Medical History Depression Pericarditis Surgical History Surgical History No pertinent past surgical history Social History Social History Substance use type: marijuana Exam Narrative: EXAMINATION OF ORGAN SYSTEMS/BODY AREAS: Constitutional: Vital signs per nursing GENERAL:[No acute distress, non-toxic appearing.] HEAD: Normal with no signs of head trauma. EYES: EOMI, conjunctiva normal ENT: Hearing grossly intact LUNGS: Nonlabored breathing. HEART: slightly tachycardic; normal DP pulses bilaterally ABD: [Soft], [nontender to palpation] EXT: Normal range of motion, no lower extremity tenderness or edema SKIN: [No rashes or lesions.] NEURO: [Alert and oriented x 3. No gross focal sensory or strength deficits.] Ambulating with normal steady gait PSYCH: Normal affect Course Vital Signs Vital signs: Vital Signs Pulse Rate 102 H 08/15/23 17:46 Respiratory Rate 18 08/15/23 17:46 Blood Pressure 151/104 H 08/15/23 17:46 Pulse Oximetry 98 08/15/23 17:46 Oxygen Delivery Room Air 08/15/23 17:46 Temperature 101.1 F H 08/15/23 19:15 Pulse Rate 79 08/15/23 20:06 Respiratory Rate 18 08/15/23 19:07 Blood Pressure 121/71 08/15/23 20:06 Pulse Oximetry 98 08/15/23 20:06 Oxygen Delivery Room Air 08/15/23 17:46 Medical Decision Making MDM Narrative Medical decision making narrative: 1) Differential diagnosis: DVT, viral syndrome, electrolyte abnormality, muscle spasm/cramps, bronchitis 2) Comorbidities: pericarditis 3) External notes reviewed: prior notes, EKGs 4) History sources independently obtained from: n/a 5) Discussion of management with: n/a 6) Independent interpretation of: chest x-ray: No obvious consolidation or pneumothorax; normal cardiac silhouette 7) Diagnostic tests or therapies considered but not ordered: CTA chest/US legs; very minimal blood tinged sputum without active bleeding and no CP/BRIAN whatsoever, and d-dimer is negative. 8) Social determinants of health: n/a 9) Shared decision makin-year-old male presenting with bilateral leg pain, and cough with slight blood-tinged sputum that happened once; denies CP, BRIAN. He is febrile here thus I do suspect viral infection. Labs/imaging including ddimer neg, CXR neg. Lytes nl. Pain meds and antipyretics given. On re-evaluation, patient states he is feeling better. Return precautions discussed. Swabs obtained. VS improved. I do feel he is stable for dc at this time. Vital Signs Vital Signs: Vital Signs Pulse Rate 102 H 08/15/23 17:46 Respiratory Rate 18 08/15/23 17:46 Blood Pressure 151/104 H 08/15/23 17:46 Pulse Oximetry 98 08/15/23 17:46 Oxygen Delivery Room Air 08/15/23
[2023-08-15 21:24] LABS: Influenza A QL RT-PCR Positive (Negative); Influenza B QL RT-PCR Negative (Negative); RSV RNA, RT-PCR Negative (Negative); SARS-CoV-2 RNA PCR Negative (Negative)
== END 2023-08-15 21:41 | disposition home or self-care (01) ==
PROVIDERS: Emergency Provider Emergency Medicine
DX: J10.1 Influenza due to other identified influenza virus with other respiratory manifestations (principal); M79.605 Pain in left leg; M79.604 Pain in right leg; Z20.822 Contact with and (suspected) exposure to COVID-19
CPT/HCPCS: 36415; 71045; 80053; 85025; 85380; 85610; 85730; 87637; 96361; 96372; 96374; 99284; A9270; J1885; J3360; J7120

== ENCOUNTER 2023-08-16 06:55 | Emergency (ER) | payer OTHER, SELFPAY ==
--- NOTE | ~2023-08-16 | XR_ITS ---
XR chest 1V portable 08/16/2023 08:05 Indication: Chest pain Procedure: AP portable chest Comparison: 08/15/2023 Findings: There is a new right perihilar nodular opacity. Heart size normal. No peripheral consolidat ion, pleural effusion or pneumothorax. No acute osseous abnormality. Impression: 1: New right perihilar nodular opacity which may represent infiltrate or parenchymal nodule. Consider follow-up CT chest on nonemergent basis. Reviewed, dictated and finalized at location B. ENE OPERATOR Impression: 1: New right perihilar nodular opacity which may represent infiltrate or parenc hymal nodule. Consider follow-up CT chest on nonemergent basis.
[2023-08-16 07:01] VITALS: BP 152/86; PULSE 95; RESP 20; TEMP 36.6; O2SAT 100
--- NOTE | 2023-08-16 07:47 | ECG_ITS ---
Measurements Intervals [place] Rate: 72 P: 39 NV: 164 QRS: 79 QRSD: 105 T: 44 QT: 359 QTc: 393 Interpretive Statements SINUS RHYTHM ST ELEVATION IN ANTEROLAT/INF LEADS- CONSIDER PERICARDITIS, ACUTE INJURY OR EARLY REPOLARIZATION ABNORMALITY BASELINE ARTIFACT- I, II, AVR ABNORMAL ECG COMPARED TO ECG 08/13/2023 02:49:26 NO SIGNIFICANT CHANGES Electronically Signed On 08-16-2023 8:23:19 LIGHTING FIXTURES DECORATOR by Juvenal Arteaga D.O.
--- NOTE | 2023-08-16 08:14 | ED.GENADULT ---
HPI - General Adult General Chief complaint: Unspecified Stated complaint: Chest pain after being woke up from waiting room Time Seen by Provider: 08/16/23 07:15 History of Present Illness HPI narrative: 33-year-old male presents to the emergency department from waiting room for evaluation chest pain and also reporting suicidal ideation. Patient is currently homeless and was seen in the emergency department yesterday. Patient was denying any pain at that time. Patient was discharged to the waiting room. When patient was asked to leave the waiting room he began complaining of chest pain. Patient describes anterior chest pain that is nonradiating that is been ongoing for an hour. Patient reports this does feel similar to his previous pericarditis pain. Patient denies any associated shortness of breath. Patient states he is suicidal. Patient did not mention any plan. Patient states that if he is going to have to live like this he does not want to live. Related Data Allergies Allergy/AdvReac Type Severity Reaction Status Date / Time No Known Allergies Allergy Verified 08/06/23 16:53 Review of Systems Review of Systems: All systems reviewed & are unremarkable except as noted in HPI and below PMFSH Past Medical History Medical History Depression Pericarditis Surgical History Surgical History No pertinent past surgical history Social History Social History Substance use type: marijuana Exam Narrative: APPEARANCE: Well appearing, no pain, no distress, well-nourished. HEAD: normocephalic, atraumatic. EYES: PERRLA/EOMI, conjunctivae clear. NOSE: Normal no drainage RESPIRATORY: Airway patent, respirations nonlabored. Clear to auscultation bilaterally, no rales, rhonchi, wheezing. CARDIOVASCULAR: Regular rate and rhythm without murmurs rubs or gallops. ABDOMINAL: Soft, nontender, nondistended, normal bowel sounds MUSCULOSKELETAL: Moves all extremities. Strength/ROM intact, No edema, No calf tenderness. NEURO: Alert. Cranial nerves II through XII intact. Grossly intact SKIN: Warm, dry. Normal Color Course Course Emergency Course: 31-year-old male presenting emergency department for evaluation chest pain. Patient is afebrile with no leukocytosis and a stable hemoglobin. Patient has no acute electrolyte abnormalities. Patient's UA was negative for infection. Patient was positive for benzos and cannabinoids. Chest x-ray showed no acute cardiopulmonary abnormality. Patient had negative serial troponins. EKGs were similar to his previous with no evidence of acute STEMI. Patient is medically cleared at this time. Patient is medically cleared to be evaluated by crisis and is medically cleared for transport and inpatient psychiatric treatment as needed. Patient did get placement but a bed will not be available until the morning. Vital Signs Vital signs: Vital Signs Temperature 97.8 F 08/16/23 07:01 Pulse Rate 95 08/16/23 07:01 Respiratory Rate 20 08/16/23 07:01 Blood Pressure 152/86 H 08/16/23 07:01 Pulse Oximetry 100 08/16/23 07:01 Oxygen Delivery Room Air 08/16/23 07:01 Temperature 97.8 F 08/16/23 07:01 Pulse Rate 70 08/16/23 12:20 Respiratory Rate 16 08/16/23 12:20 Blood Pressure 127/77 08/16/23 12:20 Pulse Oximetry 99 08/16/23 12:20 Oxygen Delivery Room Air 08/16/23 07:01 Medical Decision Making Vital Signs Vital Signs: Vital Signs Temperature 97.8 F 08/16/23 07:01 Pulse Rate 95 08/16/23 07:01 Respiratory Rate 20 08/16/23 07:01 Blood Pressure 152/86 H 08/16/23 07:01 Pulse Oximetry 100 08/16/23 07:01 Oxygen Delivery Room Air 08/16/23 07:01 Temperature 97.8 F 08/16/23 07:01 Pulse Rate 70 08/16/23 12:20 Respiratory Rate 16 08/16/23 12:20
--- NOTE | 2023-08-16 08:22 | PC.NURSE ---
Patient updated on POC and protocol for high risk SI patients. Patient changed into green scrubs and all belongings removed. Patient belongings placed into locked cabinet. Patient in monitored room still d/t chief complaint and not yet medically cleared.Sitter remains at bedside and updated on need for close observation d/t cords connected to patient for monitoring. Sitter verbalized understanding. Patient cooperative.
[2023-08-16] MEDS: KETOROLAC 15 MG/ML VIAL (*BKC) IV PUSH (08:55)
[2023-08-16 09:06] LABS: Basophils Percent Auto 0.7 % (0.2-1.2); Eosinophils Absolute Auto 0.1 K/mm3 (0-0.3); Eosinophils Percent Auto 1.7 % (0-4.4); Hematocrit 40.1 % (42.0-52.0); Hemoglobin 12.5 g/dL (14.0-18.0); Lymphocytes Absolute Auto 0.66 K/mm3 (0.9-3.2); Lymphocytes Percent Auto 23.1 % (18.3-44.2); Mean Corpuscular HGB Conc 31.2 g/dl (32-36); Mean Corpuscular Hemoglobin 28.4 pg (26-34); Mean Corpuscular Volume 91.1 fl (80-100); Mean Platelet Volume 9.5 fl (7.4-10.4); Monocytes Absolute Auto 0.7 K/mm3 (0.1-0.6); Monocytes Percent Auto 23.8 % (2.6-8.5); Neutrophils Absolute Auto 1.5 K/mm3 (1.3-6.7); Neutrophils Percent Auto 50.7 % (45.5-73.1); Platelet Count Result 187 k/mm3 (150-375); Red Cell Distribution Width 13.9 % (11.5-14.5); White Blood Count 2.9 K/mm3 (4.5-10.0)
[2023-08-16 09:16] LABS: Alanine Aminotransferase 41 U/L (6-50); Albumin Level 3.6 g/dL (3.5-5.1); Alkaline Phosphatase 52 U/L (38-126); Anion Gap 2 mmol/L (8-16); Aspartate Amino Transferase 44 U/L (17-59); Bilirubin,Total 0.2 mg/dL (0.2-1.3); Blood Urea Nitrogen 8 mg/dL (9-20); Calcium 8.6 mg/dL (8.4-10.2); Carbon Dioxide 31 mmol/L (22-30); Chloride 107 mmol/L (98-107); Estimated CRCL calculation 92 ml/min; Estimated Glomerular Filt Rate > 60; Glucose 108 mg/dL (65-110); Potassium 4.1 mmol/L (3.4-5.0); Sodium 140 mmol/L (137-145)
[2023-08-16 09:17] LABS: Ethanol < 10 mg/dL (<10)
[2023-08-16 09:20] LABS: Partial Thromboplastin Time 30.8 SECONDS (22.3-36.8); Prothrombin Time 13.8 Seconds (11.1-14.7)
[2023-08-16 09:28] LABS: Troponin I < 0.012 ng/mL (0.000-0.034)
--- NOTE | 2023-08-16 09:41 | PC.NURSE ---
Patient was noted dumping his urine down the drain and stated he was tired of waiting for his call to be answered patient used call light to ask for more chips and to speak to the doctor and it was not accomplished within his timeframe. Patient also ripped all of his leads off. Patient has been educated the need for the leads d/t his chest pain and the need for the urine sample. Patient sitter still at bedside and remained for the entirety of this interaction.
[2023-08-16 09:45] VITALS: BP 150/93; PULSE 65; RESP 16; O2SAT 100
[2023-08-16 09:47] LABS: Thyroid Stimulating Hormone 0.112 uIU/mL (0.465-4.680)
--- NOTE | 2023-08-16 09:56 | PC.NURSE ---
Patient reminded that blanket needs to be below his head so that we can see his neck and face since he is attached to the director of cardiac rehabilitation, pulse ox, and BP which could be used for strangulation. Patient verbalized understanding. Patient updated again on POC. Patient requesting meal tray. EDP made aware and meal tray with safety precautions ordered.
[2023-08-16 10:15] LABS: Appearance Urine Clear (Clear); Bacteria Urine None Seen /hpf; Bilirubin Urine Negative (Negative); Blood Urine 2+ (Negative); Color Urine Yellow (Yellow); Glucose Urine UA Negative (Negative); Ketones Urine Negative (Negative); Leukocyte Esterase Ur Negative LEU/UL (Negative); Nitrate Urine Negative (Negative); Non Pathogenic Casts 0-2; Protein Urine Trace mg/dL (Negative); Specific Grav Ur 1.018 (1.001-1.035); Squamous Epithelial Cell Urine None seen /hpf (Few); Urobilinogen Urine 0.2 mg/dL (<2.0); WBC Urine 0-5 /hpf; pH Urine 5.5 (5.0-9.0)
[2023-08-16 10:23] LABS: Add Urine Microscopic? YES
[2023-08-16 10:25] LABS: Amphetamine Screen Urine Negative (Negative); Barbiturate Screen Urine Negative (Negative); Benzodiazepines Screen Urine Positive (Negative); Cannabinoid Screen Urine Positive (Negative); Cocaine Screen Urine Negative (Negative); Methadone Screen Urine Negative (Negative); Opiate Screen Urine Negative (Negative); Phencyclidine Screen Urine Negative (Negative)
[2023-08-16 11:23] VITALS: BP 146/74; PULSE 64; RESP 16; O2SAT 99
[2023-08-16 12:14] LABS: Troponin I < 0.012 ng/mL (0.000-0.034)
[2023-08-16 12:20] VITALS: BP 127/77; PULSE 70; RESP 16; O2SAT 99
--- NOTE | 2023-08-16 13:04 | ECG_ITS ---
Measurements Intervals [place] Rate: 72 P: 35 MI: 136 QRS: 80 QRSD: 105 T: 35 QT: 355 QTc: 391 Interpretive Statements SINUS RHYTHM ST ELEVATION IN ANTEROLAT/INF LEADS- CONSIDER PERICARDITIS, ACUTE INJURY OR EARLY REPOLARIZATION ABNORMALITY ABNORMAL ECG COMPARED TO ECG 08/16/2023 08:00:59 NO SIGNIFICANT CHANGES Electronically Signed On 08-16-2023 13:10:38 FULLER BRUSH WORKER by Juvenal Arteaga D.O.
--- NOTE | 2023-08-16 14:03 | ECG_ITS ---
Measurements Intervals [place] Rate: 68 P: 56 HI: 132 QRS: 86 QRSD: 104 T: 48 QT: 357 QTc: 380 Interpretive Statements SINUS RHYTHM ST ELEVATION IN ANTEROLAT/INF LEADS- CONSIDER PERICARDITIS, ACUTE INJURY OR EARLY REPOLARIZATION ABNORMALITY ABNORMAL ECG COMPARED TO ECG 08/16/2023 12:00:54 NO SIGNIFICANT CHANGES Electronically Signed On 08-17-2023 9:34:43 VERIFICATION MANAGER by Juvenal Arteaga D.O.
[2023-08-16 19:47] VITALS: BP 138/78; PULSE 86; RESP 15; O2SAT 98
[2023-08-16] MEDS: traZODone HCL 50 MG TABLET PO (22:34)
--- NOTE | 2023-08-17 07:45 | PC.NURSE ---
Patient was telling the sitter that he does not want to go to [facility] in [place] for treatment. He says that he only wanted to hurt himself yesterday because his heart was hurting . This Rn and electrical discharge machine operator went to talk with patient and patient began yelling and cursing at us stating we were not doing anything for him and he was not going to go to [facility]. He stated he wants to get out of here. He stated that we didn't do anything for his heart and that he has pericarditis. Attempted to de-escalate patient and reassure him that his heart was evaluated yesterday and all his labs and cxr were normal. Pt continues to talk over us and refusing to go to [facility]. Security notified and at bedside to to patients hostile behavior towards this RN. Patient states he does not want to hurt anyone else and he denies wanting to hurt himself. Discussed with Dr. Rush and she is ok with patient leaving. Pt given his belongings and escorted to the door by security.
== END 2023-08-17 07:45 | disposition home or self-care (01) ==
PROVIDERS: Emergency Provider Emergency Medicine
DX: F32.A Depression, unspecified (principal); R45.851 Suicidal ideations; I31.9 Disease of pericardium, unspecified; Z59.00 Homelessness unspecified; R94.31 Abnormal electrocardiogram [ECG] [EKG]
CPT/HCPCS: 36415; 71045; 80053; 80307; 81001; 84443; 84484; 85025; 85610; 85730; 93005; 96374; 99284; A9270; J1885

== ENCOUNTER 2023-09-02 19:36 | Emergency (ER) | payer OTHER, SELFPAY ==
[2023-09-02] VITALS (9 sets, daily range): BP systolic 121–136; BP diastolic 77–87; PULSE 71–119; RESP 14–24; TEMP 36.6–37.3; O2SAT 96–100
--- NOTE | ~2023-09-02 | XR_ITS ---
EXAMINATION: XR chest 2V DATE: 09/02/2023 20:49 INDICATION: Chest pain TECHNIQUE: PA and lateral views of the chest were obtained. COMPARISON: Chest radiograph dated 08/16/2023 FINDINGS: Mild left apical pleural-parenchymal scarring. No other airspace opacities, pulmonary edema, pleural effusion or pneumothorax. The cardiomediastinal silhouette is normal. Chronic minimal anterior wedgin g of a few mid and lower thoracic vertebral bodies. IMPRESSION: 1. No acute cardiopulmonary disease. Reviewed, dictated and finalized at location A. RAL LABOR
--- NOTE | 2023-09-02 19:37 | ECG_ITS ---
Measurements Intervals [place] Rate: 93 P: 45 MN: 140 QRS: 87 QRSD: 99 T: -28 QT: 325 QTc: 404 Interpretive Statements SINUS RHYTHM POSSIBLE LEFT ATRIAL ENLARGEMENT [-0.1mV P WAVE IN V1/V2] POSSIBLE LEFT VENTRICULAR HYPERTROPHY [VOLTAGE CRITERIA PLUS LAE OR QRS WIDENING] CHRONIC ST SEGMENT ELEVATION/CONSIDER PERICARDITIS OR EARLY REPOLARIZATION ABNORMALITY. ABNORMAL ECG COMPARED TO ECG 08/16/2023 14:03:17 NO SIGNIFICANT CHANGES Electronically Signed On 09-03-2023 7:11:13 CHEMICAL WEIGHER by Kev Pereira M.D.
[2023-09-02 19:59] LABS: Basophils Percent Auto 0.5 % (0.2-1.2); Eosinophils Absolute Auto 0.2 K/mm3 (0-0.3); Eosinophils Percent Auto 2.4 % (0-4.4); Hematocrit 40.6 % (42.0-52.0); Hemoglobin 12.9 g/dL (14.0-18.0); Immature Granulocyte Absolute 0.01 K/mm3 (0.00-0.031); Immature Granulocyte Percent A 0.2 % (0-0.5); Lymphocytes Absolute Auto 2.35 K/mm3 (0.9-3.2); Lymphocytes Percent Auto 37.9 % (18.3-44.2); Mean Corpuscular HGB Conc 31.8 g/dl (32-36); Mean Corpuscular Hemoglobin 28.2 pg (26-34); Mean Corpuscular Volume 88.8 fl (80-100); Mean Platelet Volume 9.4 fl (7.4-10.4); Monocytes Absolute Auto 0.7 K/mm3 (0.1-0.6); Monocytes Percent Auto 11.1 % (2.6-8.5); Neutrophils Percent Auto 47.9 % (45.5-73.1); Platelet Count Result 326 k/mm3 (150-375); Red Blood Count 4.57 M/mm3 (4.6-6.20); Red Cell Distribution Width 13.7 % (11.5-14.5); White Blood Count 6.2 K/mm3 (4.5-10.0)
[2023-09-02 20:11] LABS: Alanine Aminotransferase 40 U/L (6-50); Albumin Level 4.2 g/dL (3.5-5.1); Alkaline Phosphatase 67 U/L (38-126); Anion Gap 9 mmol/L (8-16); Aspartate Amino Transferase 42 U/L (17-59); Bilirubin,Total 0.4 mg/dL (0.2-1.3); Blood Urea Nitrogen 13 mg/dL (9-20); Calcium 9.2 mg/dL (8.4-10.2); Carbon Dioxide 25 mmol/L (22-30); Chloride 106 mmol/L (98-107); Estimated CRCL calculation 103 ml/min; Estimated Glomerular Filt Rate > 60; Glucose 112 mg/dL (65-110); Lipase 100 U/L (23-300); Potassium 4.7 mmol/L (3.4-5.0); Sodium 140 mmol/L (137-145)
[2023-09-02 20:14] LABS: INR 0.9; Prothrombin Time 12.7 Seconds (11.1-14.7)
[2023-09-02 20:15] LABS: Partial Thromboplastin Time 26.5 SECONDS (22.3-36.8)
[2023-09-02 20:19] LABS: Troponin I < 0.012 ng/mL (0.000-0.034)
[2023-09-02] MEDS: ASPIRIN 81 MG CHEWABLE TABLET 324 MG PO (20:26)
--- NOTE | 2023-09-02 20:45 | ED.CHESTPAIN ---
HPI - Chest Pain General Chief Complaint: Chest Pain Stated Complaint: chest pain/HANEY Time Seen by Provider: 09/02/23 19:51 History of Present Illness HPI narrative: Patient is a 33-year-old male with history of chronic pericarditis who presents ER with reports of chest pain. It occurred while sitting at the bus stop after drinking a couple of beers. Sharp. Right-sided. No difficulty breathing or swallowing. Denies any aggravating or alleviating factors. He did see his casket liner today and he is supposed to show up in 3 days to have his 1st Arcalyst injection for his pericarditis treatment. he is not on colchicine or other anti-inflammatories at this time. Related Data Allergies Allergy/AdvReac Type Severity Reaction Status Date / Time No Known Allergies Allergy Verified 08/06/23 16:53 Review of Systems Review of Systems: All systems reviewed & are unremarkable except as noted in HPI and below Constitutional: Constitutional: Reports no additional constitutional complaints ENT: Reports system reviewed and no additional complaints, except as documented Cardiovascular: Cardiovascular: Reports chest pain, Denies rapid heart rate and Denies radiating jaw, neck or arm pain Respiratory: Respiratory: Reports no additional respiratory complaints Gastrointestinal: Gastrointestinal: Reports no additional gastrointestinal complaints PMFSH Past Medical History Medical History Depression Pericarditis Surgical History Surgical History No pertinent past surgical history Social History Social History Substance use type: marijuana Exam Narrative: GENERAL: Well-appearing, well-nourished, and in no acute distress. HEAD: Normocephalic, atraumatic. ENT: Mucous membranes moist. NECK: Supple. CHEST: Clear to auscultation. No respiratory distress. HEART: Regular rate and rhythm. Normal peripheral pulses. EXTREMITIES: Normal range of motion. No edema. SKIN: Warm, dry, no rash. NEURO: Alert and oriented x3. PSYCH: Normal mood and affect. Course Course Emergency Course: Patient is followed by a casket liner. He has multiple visits with negative troponins. Chest x-ray without large cardiac silhouette. Patient felt appropriate for discharge home and can follow up with his casket liner. Vital Signs Vital signs: Vital Signs Temperature 99.1 F 09/02/23 19:38 Pulse Rate 119 H 09/02/23 19:38 Respiratory Rate 15 09/02/23 19:38 Blood Pressure 136/79 09/02/23 19:38 Pulse Oximetry 99 09/02/23 19:38 Oxygen Delivery Room Air 09/02/23 19:38 Temperature 98 F 09/02/23 22:00 Pulse Rate 71 09/02/23 22:00 Respiratory Rate 15 09/02/23 22:00 Blood Pressure 121/87 09/02/23 22:00 Pulse Oximetry 100 09/02/23 22:00 Oxygen Delivery Room Air 09/02/23 19:52 MDM - Chest Pain Lab Data 09/02/23 19:48 09/02/23 19:48 Labs: Lab Results 09/02/23 Range/Units 19:48 WBC 6.2 (4.5-10.0) K/mm3 RBC 4.57 L (4.6-6.20) M/mm3 Hgb 12.9 L (14.0-18.0) g/dL Hct 40.6 L (42.0-52.0) % MCV 88.8 (80-100) fl MCH 28.2 (26-34) pg MCHC 31.8 L (32-36) g/dl RDW 13.7 (11.5-14.5) % Plt Count 326 D (150-375) k/mm3 MPV 9.4 (7.4-10.4) fl Immature Gran % (Auto) 0.2 (0-0.5) % Neut % (Auto) 47.9 (45.5-73.1) % Lymph % (Auto) 37.9 (18.3-44.2) % [place] % (Auto) 11.1 H (2.6-8.5) % Eos % (Auto) 2.4 (0-4.4) % Baso % (Auto) 0.5 (0.2-1.2) % Lymph # (Auto) 2.35 (0.9-3.2) K/mm3 [place] # (Auto) 0.7 H (0.1-0.6) K/mm3 Eos # (Auto) 0.2 (0-0.3) K/mm3 Baso # (Auto) 0.0 (0.0-0.1) K/mm3 Abs Immat Gran (auto) 0.01 (0.00-0.031) K/mm3 Absolute Neuts (auto) 3.0 (1.3-6.7) K/mm3 Absolute Nucleated RBC 0.0 (0.0-0.012) K/mm3 Nucleated RBC % 0.0 (0.0-0.
== END 2023-09-02 22:01 | disposition home or self-care (01) ==
PROVIDERS: Emergency Provider Emergency Medicine
DX: I31.9 Disease of pericardium, unspecified (principal); R94.31 Abnormal electrocardiogram [ECG] [EKG]
CPT/HCPCS: 36415; 71046; 80053; 83690; 84484; 85025; 85610; 85730; 93005; 99284; A9270

== ENCOUNTER 2023-09-10 08:39 | Emergency (ER) | payer OTHER, SELFPAY ==
[2023-09-10] VITALS (11 sets, daily range): BP systolic 131–140; BP diastolic 63–90; PULSE 71–105; RESP 14–31; TEMP 36.9; O2SAT 97–100
--- NOTE | ~2023-09-10 | CT_ITS ---
EXAMINATION: CT abdomen pelvis w con INDICATION: Periumbilical abdominal pain TECHNIQUE: Computed tomographic images of the abdomen and pelvis were obtained after the administrati on of 100 cc of Omnipaque 350 intravenous contrast. The dose-length product (DLP) was 268.24 mGy-cm. Automated exposure control and iterative reconstruction technique were employed. COMPARISON: 06/26/2023 FINDINGS: The lung bases are clear. The heart size is normal. There is a 3 mm cyst in the right hepat ic lobe. The spleen, pancreas, gallbladder, and adrenal glands are normal. Cysts of the kidneys measu re up to 12 mm on the right. No pathologically enlarged abdominal or pelvic lymph nodes are identifie d. No free intraperitoneal gas or evidence of bowel obstruction. The appendix is normal. IMPRESSION: 1. No CT correlate for the patient's symptoms. Reviewed, dictated and finalized at location B. RT FORKER
[2023-09-10 08:55] LABS: Basophils Percent Auto 0.2 % (0.2-1.2); Eosinophils Absolute Auto 0.1 K/mm3 (0-0.3); Eosinophils Percent Auto 1.7 % (0-4.4); Hematocrit 40.8 % (42.0-52.0); Immature Granulocyte Absolute 0.02 K/mm3 (0.00-0.031); Immature Granulocyte Percent A 0.3 % (0-0.5); Lymphocytes Absolute Auto 1.47 K/mm3 (0.9-3.2); Lymphocytes Percent Auto 22.8 % (18.3-44.2); Mean Corpuscular HGB Conc 31.9 g/dl (32-36); Mean Corpuscular Hemoglobin 28.6 pg (26-34); Mean Corpuscular Volume 89.9 fl (80-100); Mean Platelet Volume 9.1 fl (7.4-10.4); Monocytes Absolute Auto 0.9 K/mm3 (0.1-0.6); Monocytes Percent Auto 13.2 % (2.6-8.5); Neutrophils Percent Auto 61.8 % (45.5-73.1); Platelet Count Result 273 k/mm3 (150-375); Red Blood Count 4.54 M/mm3 (4.6-6.20); White Blood Count 6.5 K/mm3 (4.5-10.0)
[2023-09-10 09:04] LABS: Alanine Aminotransferase 41 U/L (6-50); Albumin Level 4.4 g/dL (3.5-5.1); Alkaline Phosphatase 62 U/L (38-126); Anion Gap 5 mmol/L (8-16); Aspartate Amino Transferase 49 U/L (17-59); Bilirubin,Total 0.4 mg/dL (0.2-1.3); Blood Urea Nitrogen 12 mg/dL (9-20); Calcium 9.6 mg/dL (8.4-10.2); Carbon Dioxide 28 mmol/L (22-30); Chloride 107 mmol/L (98-107); Estimated CRCL calculation 94 ml/min; Estimated Glomerular Filt Rate > 60; Glucose 100 mg/dL (65-110); Lipase 74 U/L (23-300); Potassium 3.9 mmol/L (3.4-5.0); Sodium 140 mmol/L (137-145)
[2023-09-10 09:19] LABS: Appearance Urine Clear (Clear); Bacteria Urine None Seen /hpf; Bilirubin Urine Negative (Negative); Blood Urine Negative (Negative); Color Urine Yellow (Yellow); Glucose Urine UA Negative (Negative); Ketones Urine Trace mg/dL (Negative); Leukocyte Esterase Ur Negative LEU/UL (Negative); Nitrate Urine Negative (Negative); Non Pathogenic Casts 0-2; Protein Urine 1+ mg/dL (Negative); Specific Grav Ur 1.031 (1.001-1.035); Squamous Epithelial Cell Urine None seen /hpf (Few); WBC Urine 0-5 /hpf; pH Urine 6.5 (5.0-9.0)
[2023-09-10 09:23] LABS: Add Urine Microscopic? YES
[2023-09-10] MEDS: diphenhydrAMINE HCl INJ 50 MG/ML VIAL 25 MG IV PUSH (10:24)
[2023-09-10] MEDS: SODIUM CHLORIDE 0.9% IV 1,000 ML 999 ML IV CONT (10:24)
[2023-09-10] MEDS: METOCLOPRAMIDE HCL INJ 10 MG/2 ML VIAL IV PUSH (10:24)
--- NOTE | 2023-09-10 12:20 | ED.ABDPAIN ---
HPI - Abdominal Pain General Chief Complaint: Abdominal Pain Stated Complaint: abdominal pain, vomitting Time Seen by Provider: 09/10/23 09:52 History of Present Illness HPI narrative: Patient is a 33-year-old male who presents to the emergency this afternoon complaining of abdominal pain, nausea and vomiting. Patient states that he has not been able to keep anything down since yesterday when all of his symptoms started. He denies any diarrhea and denies any sick contacts at. Patient denies any previous symptoms in the. He states that the pain is crampy and in the periumbilical region. Patient denies any additional symptoms including chest pain, shortness of breath, dysuria, hematuria, melena, hematochezia, fevers or chills. Patient also denies any headaches, dizziness, lightheadedness, blurry visions, focal weakness, numbness and or tingling. There are no other modifying, alleviating, or precipitating factors at this time. Related Data Allergies Allergy/AdvReac Type Severity Reaction Status Date / Time No Known Allergies Allergy Verified 08/06/23 16:53 Review of Systems Review of Systems: All systems are reviewed and are negative unless stated otherwise in the HPI. [facility] Past Medical History Medical History Depression Pericarditis Surgical History Surgical History No pertinent past surgical history Social History Social History Substance use type: marijuana Exam Narrative: General: Alert, awake, afebrile, in no acute distress. HEENT: PERRL, no rhinorrhea, no post nasal drip, oropharynx clear. Neck: Trachea midline, no JVD, no lymphadenopathy. Cardiovascular: Regular rate and rhythm, no murmurs, rubs or gallops, no peripheral edema. Respiratory: Clear to auscultation bilaterally, no tachypnea, no wheezing, no rhonchi, no rubs, no respiratory distress. Abdomen: Soft, tenderness to palpation over the periumbilical region, nondistended, no rebound, no guarding, no peritoneal signs. Musculoskeletal: No joint swelling or deformity, normal muscle tone. Skin: No rashes or petechia, no signs of infection. Psychiatric: Alert and oriented, normal behavior and judgment for situation. Neurological: Alert and oriented to person, place, and time. Follows all commands. No focal deficits, speech is clear and fluent. Course Vital Signs Vital signs: Vital Signs Temperature 98.4 F 09/10/23 08:43 Pulse Rate 105 H 09/10/23 08:43 Respiratory Rate 18 09/10/23 08:43 Blood Pressure 140/63 09/10/23 08:43 Pulse Oximetry 99 09/10/23 08:43 Oxygen Delivery Room Air 09/10/23 08:43 Temperature 98.4 F 09/10/23 08:43 Pulse Rate 71 09/10/23 11:03 Respiratory Rate 15 09/10/23 11:03 Blood Pressure 136/90 09/10/23 10:46 Pulse Oximetry 100 09/10/23 10:30 Oxygen Delivery Room Air 09/10/23 08:43 MDM - Abdominal Pain MDM Narrative Medical decision making narrative: The patient was evaluated by myself in the emergency department. History is obtained from patient who is an independent historian and physical exam was performed. External medical records were reviewed at this time. IV was established and pertinent tests were ordered. Patient was administered a 1 L fluid bolus with normal saline and 10 mg of IV Reglan and 25 mg of IV Benadryl. Laboratory results obtained revealing no acute process. Urinalysis obtained revealed trace ketones otherwise unremarkable. Imaging studies obtained included CT abdomen and pelvis with IV contrast which was independently interpreted by me revealing no acute process, which is pending final radiology interpretation. Differential diagnosis considerations include gastroenteritis, appendicitis, and cyclical vomiting syndrome given his history of marijuana use. Comorbidities impacting this
== END 2023-09-10 12:58 | disposition home or self-care (01) ==
PROVIDERS: Emergency Provider Emergency Medicine
DX: R11.15 Cyclical vomiting syndrome unrelated to migraine (principal); R10.33 Periumbilical pain; I31.9 Disease of pericardium, unspecified
CPT/HCPCS: 36415; 74177; 80053; 81001; 83690; 85025; 96361; 96374; 96375; 99284; J1200; J2765; J7030; Q9967

== ENCOUNTER 2023-09-13 17:28 | Emergency (ER) | payer OTHER, SELFPAY ==
--- NOTE | ~2023-09-13 | CT_ITS ---
EXAMINATION: CT brain wo con DATE: 09/13/2023 18:28 INDICATION: Headache TECHNIQUE: Computed tomography (CT) of the head was performed without intravenous contrast. Sagittal and coronal reconstructions were performed. Automated exposure control and iterative reconstruction t echnique were employed. The dose-length product was 1210.67 mGy-cm. COMPARISON: None FINDINGS: No acute intracranial hemorrhage, acute infarction or abnormal extra axial fluid collection. Ventricl es are normal and symmetric. No mass/mass effect. The orbits, paranasal sinuses and mastoid air cells are normal. IMPRESSION: 1. Normal head CT. Reviewed, dictated and finalized at location A. [employer]ENT[employer]CH[employer]IC [employer] IMPRESSION: 1. Normal head CT.
[2023-09-13 17:36] VITALS: BP 149/74; PULSE 75; RESP 16; TEMP 37.2; O2SAT 100
[2023-09-13 18:09] VITALS: BP 150/69; PULSE 73; RESP 15; TEMP 37.2; O2SAT 100
--- NOTE | 2023-09-13 18:14 | ED.HA ---
HPI - Headache General Chief Complaint: Headache Stated Complaint: headache Time Seen by Provider: 09/13/23 18:07 Source: patient Mode of arrival: ambulatory Limitations: no limitations History of Present Illness HPI Narrative: Patient is a 31-year-old male who presents the ED with report of a headache. Reports headache began several hours ago and have been constant since then. Present mostly in his frontal region. He has had mild headaches before, but states he has never had a headache this severe. States it feels like a brain storm. Reports phonophobia, dizziness, and mild nausea. Denies photophobia. Denies vomiting. Denies vision changes. Denies neck pain, fevers. Denies focal weakness or numbness. Denies recent cough or cold sx's, sinus pressure. Patient took Tylenol around 2pm today w/o improvement. Related Data Allergies Allergy/AdvReac Type Severity Reaction Status Date / Time No Known Allergies Allergy Verified 09/13/23 18:44 Review of Systems Review of Systems: CONSTITUTIONAL: Denies fever, chills, or sweats. ENT: See HPI. CARDIOVASCULAR: Denies chest pain. RESPIRATORY: Denies dyspnea. GASTROINTESTINAL: See HPI. MUSCULOSKELETAL: Denies back pain, extremity pain, myalgia. NEUROLOGIC: See HPI. All systems reviewed & are unremarkable except as noted in HPI and below PMFSH Past Medical History Medical History Depression Pericarditis Surgical History Surgical History No pertinent past surgical history Social History Social History Substance use type: marijuana Exam Narrative: GENERAL: Well-appearing, well-nourished, and in no acute distress. HEAD: Normocephalic, atraumatic. EYES: PERRL/EOMI, conjunctiva clear. No nystagmus. CHEST: Clear to auscultation. ?No respiratory distress. HEART: Regular rate and rhythm.? NEURO: ?Alert and oriented x3. No focal neurologic deficits. Course Vital Signs Vital signs: Vital Signs Temperature 98.9 F 09/13/23 17:36 Pulse Rate 75 09/13/23 17:36 Respiratory Rate 16 09/13/23 17:36 Blood Pressure 149/74 H 09/13/23 17:36 Pulse Oximetry 100 09/13/23 17:36 Oxygen Delivery Room Air 09/13/23 17:36 Temperature 99.0 F 09/13/23 18:09 Pulse Rate 73 09/13/23 18:09 Respiratory Rate 15 09/13/23 18:09 Blood Pressure 150/69 H 09/13/23 18:09 Pulse Oximetry 100 09/13/23 18:09 Oxygen Delivery Room Air 09/13/23 17:36 MDM - Headache MDM Narrative Medical decision making narrative: Patient present ED with several hour onset of frontal headache. Patient states headache is severe. He has never had a headache like this before. Vital signs stable upon arrival. Patient neurologically intact. No focal deficits. No neck pain or meningeal signs. No head injury or recent trauma. No vision changes. CT brain obtained and negative. Patient given migraine cocktail in the ED and feeling much better upon reevaluation. Will be discharged. Advised to continue therapies at home, stay well hydrated, low stimulus environment. Given return precautions. Patient in agreement with plan. D/C in stable condition. Medical Records Attestation: I reviewed the patient's medical records. Imaging Data Attestation: I personally reviewed and interpreted this imaging study as follows: Radiologist's impression: ITS Impressions Head CT 09/13/23 18:34 IMPRESSION: 1. Normal head CT. Discharge Plan Discharge Clinical Impression: Headache Qualifiers: Headache type: unspecified Headache chronicity pattern: acute headache Intractability: not intractable Qualified Code(s): R51.9 - Headache, unspecified Patient Disposition: Still a Patient Condition: Improved Instructions: Migraine Headache (ED), Tension Headache (ED), Acute Headache (ED) Ad
[2023-09-13] MEDS: SODIUM CHLORIDE 0.9% IV 1,000 ML 999 ML IV CONT (18:39)
[2023-09-13] MEDS: METOCLOPRAMIDE HCL INJ 10 MG/2 ML VIAL IV PUSH (18:40)
[2023-09-13] MEDS: diphenhydrAMINE HCl INJ 50 MG/ML VIAL 25 MG IV PUSH (18:40)
[2023-09-13] MEDS: KETOROLAC 30 MG/ML VIAL (*BKC) IV PUSH (18:50)
== END 2023-09-13 19:58 | disposition home or self-care (01) ==
LOC: ANHED 18:50
PROVIDERS: Emergency Provider Physician Assistant
DX: R51.9 Headache, unspecified (principal); I31.9 Disease of pericardium, unspecified
CPT/HCPCS: 70450; 96361; 96374; 96375; 99284; J1200; J1885; J2765; J7030

== ENCOUNTER 2023-09-15 20:47 | Emergency (ER) | payer OTHER, SELFPAY ==
--- NOTE | ~2023-09-15 | CT_ITS ---
Noncontrast CT scan of the lumbar spine CLINICAL HISTORY: Back pain TECHNIQUE: Axial noncontrast imaging of the lumbar spine was performed. Sagittal and coronal reformat cuco images were constructed. Dose reduction technique was used on this scan by utilizing automated ex posure control and iterative reconstruction technique. The dose-length product (DLP) was 357.47 mGy-c m. FINDINGS: No fracture or subluxation seen in the lumbar spine. Vertebral bodies maintain normal heigh t and alignment. Intervertebral disc spaces are well preserved. No significant disc bulge or herniation evident. No definite spinal canal stenosis or neural foramina l narrowing identified. Paravertebral soft tissues are unremarkable. Punctate bilateral nonobstructing renal stones are noted . Impression: No significant abnormality of the lumbar spine. Bilateral punctate nonobstructing renal stones. Reviewed, dictated and finalized at [facility]. ET PRESSMAN Impression: No significant abnormality of the lumbar spine. Bilateral punctate nonobstructing renal stones.
[2023-09-15 20:58] VITALS: BP 140/84; PULSE 112; RESP 18; TEMP 36.6; O2SAT 100
--- NOTE | 2023-09-16 00:21 | ED.BACK ---
HPI - Back Pain/Injury General Chief Complaint: Back Pain/Injury Stated Complaint: fall, back pain Time Seen by Provider: 09/15/23 23:23 Source: patient Limitations: no limitations History of Present Illness HPI Narrative: Patient is a 33-year-old male presents to the emergency department complaining of back pain. Patient states her prior to arrival he was at work picking up Pallet and fell backwards and hit his lower back where he has no having pain, nonsedated is a sharp pain, nonradiating, no history of pain like this in the past, has not tried anything for the pain, most the pain is better when lying flat and worse when leaning forward, denies hitting his head or having loss of consciousness. Patient denies history of cancer, history of IV drug use, urinary incontinence, stool incontinence, saddle anesthesia, numbness, weakness, chest pain, difficulty breathing, history kidney stones, urinary discomfort, diarrhea, melena, hematochezia. Patient has been ambulatory since the event without any difficulty. Related Data Allergies Allergy/AdvReac Type Severity Reaction Status Date / Time No Known Allergies Allergy Verified 09/15/23 21:02 Review of Systems Review of Systems: A 10 system review of systems was completed on the patient and is negative except for what is stated in the HPI. Nursing and ancillary documentation was reviewed. [facility] Past Medical History Medical History Depression Pericarditis Surgical History Surgical History No pertinent past surgical history Social History Social History Substance use type: marijuana Comments At time of signature, I have reviewed and agree with nursing past medical, surgical, social and family history unless otherwise noted. Please see the nursing chart for further information. There is no relevant family history pertinent to the presenting complaint. Exam Narrative: CONST: No acute distress. Well nourished. Sleeping comfortably in bed upon my arrival to the room. HENMT: Head is normocephalic and atraumatic. Moist mucous membranes. No posterior oropharynx erythema. EYES: No conjunctival icterus, injection, or pallor. PERRL. NECK: No meningeal signs. RESP: Able to speak in full sentences. Normal respiratory effort. CTAB. CARDIO: Regular rate. Regular rhythm. 2+ DP and radial pulses bilaterally. GI: Nondistended. No tenderness to palpation. Soft. : No CVA tenderness to palpation. SKIN: No rashes or lesions noted on exposed skin. NEURO: Oriented x3. Moves all extremities. No focal neurological deficits. No saddle anesthesia. EXTREM/MSK/BACK: No pedal edema. Mild midline lumbar vertebral tenderness palpation without step-offs or deformities. No thoracic or cervical midline vertebral tenderness to palpation or step-offs. Negative straight leg raise bilaterally. Motor strength is 5/5 bilateral lower extremities and range of motion intact actively. PSYCH: Normal affect. Course Vital Signs Vital signs: Vital Signs Temperature 97.9 F 09/15/23 20:58 Pulse Rate 112 H 09/15/23 20:58 Respiratory Rate 18 09/15/23 20:58 Blood Pressure 140/84 09/15/23 20:58 Pulse Oximetry 100 09/15/23 20:58 Oxygen Delivery Room Air 09/15/23 20:58 Temperature 97.9 F 09/15/23 20:58 Pulse Rate 112 H 09/15/23 20:58 Respiratory Rate 18 09/15/23 20:58 Blood Pressure 140/84 09/15/23 20:58 Pulse Oximetry 100 09/15/23 20:58 Oxygen Delivery Room Air 09/15/23 20:58 MDM - Back Pain/Injury MDM Narrative Medical decision making narrative: Patient presents with the above complaint. Initial vitals are remarkable for Tachycardia, suspect likely secondary to pain, Patient is not tachycardic on my examination and was sleeping comfortably upon my arrival t
[2023-09-16] MEDS: diazePAM (*CRX) 2 MG TABLET PO (00:33)
[2023-09-16] MEDS: ACETAMINOPHEN 500 MG TABLET 1000 MG PO (00:34)
[2023-09-16 02:09] VITALS: BP 114/52; PULSE 68; RESP 15; O2SAT 98
== END 2023-09-16 02:10 | disposition home or self-care (01) ==
PROVIDERS: Emergency Provider Student in an Organized Health Care Education/Training Program
DX: S39.012A Strain of muscle, fascia and tendon of lower back, initial encounter (principal); I31.9 Disease of pericardium, unspecified; W18.39XA Other fall on same level, initial encounter
CPT/HCPCS: 72131; 99284; A9270

== ENCOUNTER 2023-09-22 18:50 | Emergency (ER) | payer OTHER, SELFPAY ==
[2023-09-22] VITALS (12 sets, daily range): BP systolic 104–130; BP diastolic 56–83; PULSE 53–61; RESP 12–20; TEMP 36.5; O2SAT 97–100
--- NOTE | ~2023-09-22 | CT_ITS ---
EXAMINATION: CT abdomen pelvis w con DATE: 09/22/2023 20:57 INDICATION: Mid abdominal pain. TECHNIQUE: Computed tomography (CT) of the abdomen and pelvis was performed with 100 mL Omnipaque 350 intravenous contrast. Automated exposure control and iterative reconstruction technique were employe d. The dose-length product was 324.22 mGy-cm. COMPARISON: CT abdomen and pelvis 09/10/2023 FINDINGS: The visualized portions of the lung bases demonstrate mild atelectasis. No pleural effusion . The heart size is normal. No pericardial effusion. The liver, spleen, gallbladder, pancreas, and ad renal glands are normal. There is cortical thinning of the kidneys. There are cysts in right kidney m easuring up to 11 mm . There are no dilated loops of bowel. The appendix is normal. There are no path ologically enlarged lymph nodes. There is no free intraperitoneal fluid. There is mild lumbar spondyl osis. IMPRESSION: 1. No etiology for the patient's symptoms. Reviewed, dictated and finalized at location E. 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
--- NOTE | 2023-09-22 19:57 | ED.ABDPAIN ---
HPI - Abdominal Pain General Chief Complaint: Abdominal Pain Stated Complaint: ABD PAIN SINCE 1800 TONIGHT Time Seen by Provider: 09/22/23 19:46 Source: patient Mode of arrival: ambulatory Limitations: no limitations History of Present Illness HPI narrative: Patient is 33 years old male came by private car to the ED complaining mid abdominal pain started within 1 hour prior to arrival to the emergency room. He denies any fever, chills, nausea, vomiting, diarrhea, constipation or urinary symptoms. Last marijuana use 2 days ago. Related Data Allergies Allergy/AdvReac Type Severity Reaction Status Date / Time No Known Allergies Allergy Verified 09/15/23 21:02 Review of Systems Review of Systems: All systems reviewed & are unremarkable except as noted in HPI and below PMFSH Past Medical History Medical History Depression Pericarditis Surgical History Surgical History No pertinent past surgical history Social History Social History Substance use type: marijuana Exam Narrative: General appearance: Well-developed, well-nourished Skin: Normal color Head: Normocephalic, nontraumatic Eyes: Clear conjunctiva ENT: Oropharynx normal, ears normal, nose normal Neck: Supple, nontender Chest and respiratory: Airway patent, no respiratory distress, no accessory muscle use Heart: Regular rate/rhythm Abdomen: Soft, tenderness epigastric area, no guarding or rebound , no organomegaly, quiet bowel sounds Vascular: Normal peripheral pulses, normal capillary refill. 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 is normal as tested, no gross motor deficit Course Vital Signs Vital signs: Vital Signs Temperature 36.5 C 09/22/23 18:52 Pulse Rate 61 09/22/23 18:52 Respiratory Rate 20 09/22/23 18:52 Blood Pressure 130/83 09/22/23 18:52 Pulse Oximetry 98 09/22/23 18:52 Oxygen Delivery Room Air 09/22/23 18:52 Temperature 36.5 C 09/22/23 18:52 Pulse Rate 60 09/22/23 20:15 Respiratory Rate 14 09/22/23 20:15 Blood Pressure 120/78 09/22/23 20:15 Pulse Oximetry 100 09/22/23 20:15 Oxygen Delivery Room Air 09/22/23 18:52 MDM - Abdominal Pain MDM Narrative Medical decision making narrative: Patient presents with epigastric pain, vital signs are stable, physical examination showed [id number] tenderness in the epigastric area Differential diagnosis gastritis, esophagitis, GERD, pancreatitis, constipation, colitis, anxiety like symptoms Blood workup today showed no acute abnormalities, urinalysis showed no acute abnormalities, CT abdomen and pelvis with IV contrast showed no acute abnormalities. Diagnosis is abdominal pain of unknown etiology. In the ED patient received 1 L of normal saline IV,, Dilaudid 0.5 mg IV, Zofran 4 mg IV. With remarkable improvement Patient requested a sandwich prior to discharge. Differential Diagnosis Differential diagnosis: Likely other (As above) Medical Records Attestation: I reviewed the patient's medical records. Lab Data Attestation: I reviewed the patient's lab results. 09/22/23 20:06 09/22/23 20:06 Labs: Lab Results 09/22/23 Range/Units 20:06 WBC 6.3 (4.5-10.0) K/mm3 RBC 4.28 L (4.6-6.20) M/mm3 Hgb 12.2 L (14.0-18.0) g/dL Hct 38.1 L (42.0-52.0) % MCV 89.0 (80-100) fl MCH 28.5 (26-34) pg MCHC 32.0 (32-36) g/dl RDW 14.0 (11.5-14.5) % Plt Count 252 (150-375) k/mm3 MPV 9.1 (7.4-1
[2023-09-22 20:12] LABS: Basophils Percent Auto 0.5 % (0.2-1.2); Eosinophils Absolute Auto 0.1 K/mm3 (0-0.3); Eosinophils Percent Auto 2.2 % (0-4.4); Hematocrit 38.1 % (42.0-52.0); Hemoglobin 12.2 g/dL (14.0-18.0); Immature Granulocyte Absolute 0.02 K/mm3 (0.00-0.031); Immature Granulocyte Percent A 0.3 % (0-0.5); Lymphocytes Absolute Auto 1.93 K/mm3 (0.9-3.2); Lymphocytes Percent Auto 30.7 % (18.3-44.2); Mean Corpuscular Hemoglobin 28.5 pg (26-34); Mean Platelet Volume 9.1 fl (7.4-10.4); Monocytes Absolute Auto 0.6 K/mm3 (0.1-0.6); Monocytes Percent Auto 10.2 % (2.6-8.5); Neutrophils Absolute Auto 3.5 K/mm3 (1.3-6.7); Neutrophils Percent Auto 56.1 % (45.5-73.1); Platelet Count Result 252 k/mm3 (150-375); Red Blood Count 4.28 M/mm3 (4.6-6.20); White Blood Count 6.3 K/mm3 (4.5-10.0)
[2023-09-22] MEDS: ONDANSETRON INJ 4 MG/2 ML VIAL IV PUSH (20:15)
[2023-09-22] MEDS: HYDROmorphone HCL INJ (*CRX) 1 MG/ML SYR 0.5 MG IV PUSH (20:15)
[2023-09-22] MEDS: SODIUM CHLORIDE 0.9% IV 1,000 ML 999 ML IV CONT (20:15)
[2023-09-22 20:26] LABS: Alanine Aminotransferase 32 U/L (6-50); Albumin Level 4.2 g/dL (3.5-5.1); Alkaline Phosphatase 62 U/L (38-126); Anion Gap 8 mmol/L (8-16); Aspartate Amino Transferase 33 U/L (17-59); Bilirubin,Total 0.4 mg/dL (0.2-1.3); Blood Urea Nitrogen 12 mg/dL (9-20); Calcium 9.3 mg/dL (8.4-10.2); Carbon Dioxide 23 mmol/L (22-30); Chloride 106 mmol/L (98-107); Estimated CRCL calculation 94 ml/min; Estimated Glomerular Filt Rate > 60; Glucose 98 mg/dL (65-110); Lipase 90 U/L (23-300); Potassium 3.9 mmol/L (3.4-5.0); Sodium 137 mmol/L (137-145)
== END 2023-09-22 22:23 | disposition home or self-care (01) ==
PROVIDERS: Emergency Provider Emergency Medicine
DX: R10.9 Unspecified abdominal pain (principal); F32.A Depression, unspecified
CPT/HCPCS: 36415; 74177; 80053; 83690; 85025; 96361; 96374; 96375; 99284; J1170; J2405; J7030; Q9967

== ENCOUNTER 2023-10-04 14:43 | Emergency (ER) | payer OTHER, SELFPAY ==
--- NOTE | ~2023-10-04 | XR_ITS ---
EXAM: XR abdomen obstructive series DATE: 10/04/2023 18:11 HISTORY: abdominal pain . COMPARISON: CT abdomen pelvis 09/22/2023. FINDINGS: Clear lung bases. No free air. Normal bowel gas pattern. Enlarged liver. No abnormal abdom inal calcification. Regional bones and soft tissues normal for age. IMPRESSION: Hepatomegaly. No radiographic evidence of obstruction or ileus. Reviewed, dictated and finalized at location K. 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
[2023-10-04 14:51] VITALS: BP 134/69; PULSE 84; RESP 20; TEMP 36.3; O2SAT 100
[2023-10-04 15:05] LABS: Basophils Percent Auto 0.4 % (0.2-1.2); Eosinophils Absolute Auto 0.2 K/mm3 (0-0.3); Hematocrit 37.8 % (42.0-52.0); Hemoglobin 11.7 g/dL (14.0-18.0); Immature Granulocyte Absolute 0.01 K/mm3 (0.00-0.031); Immature Granulocyte Percent A 0.2 % (0-0.5); Lymphocytes Absolute Auto 1.53 K/mm3 (0.9-3.2); Lymphocytes Percent Auto 28.5 % (18.3-44.2); Mean Corpuscular Hemoglobin 27.9 pg (26-34); Mean Corpuscular Volume 90.2 fl (80-100); Mean Platelet Volume 9.3 fl (7.4-10.4); Monocytes Absolute Auto 0.7 K/mm3 (0.1-0.6); Monocytes Percent Auto 12.5 % (2.6-8.5); Neutrophils Percent Auto 55.4 % (45.5-73.1); Platelet Count Result 291 k/mm3 (150-375); Red Blood Count 4.19 M/mm3 (4.6-6.20); Red Cell Distribution Width 13.5 % (11.5-14.5); White Blood Count 5.4 K/mm3 (4.5-10.0)
[2023-10-04 15:17] LABS: Alanine Aminotransferase 29 U/L (6-50); Albumin Level 4.1 g/dL (3.5-5.1); Alkaline Phosphatase 65 U/L (38-126); Anion Gap 6 mmol/L (8-16); Aspartate Amino Transferase 35 U/L (17-59); Bilirubin,Total 0.2 mg/dL (0.2-1.3); Blood Urea Nitrogen 14 mg/dL (9-20); Calcium 9.2 mg/dL (8.4-10.2); Carbon Dioxide 26 mmol/L (22-30); Chloride 106 mmol/L (98-107); Estimated CRCL calculation 103 ml/min; Estimated Glomerular Filt Rate > 60; Glucose 86 mg/dL (65-110); Lipase 90 U/L (23-300); Potassium 3.9 mmol/L (3.4-5.0); Sodium 138 mmol/L (137-145)
--- NOTE | 2023-10-04 15:34 | ED.GENADULT ---
HPI - General Adult General Chief complaint: Abdominal Pain <Noreen Healy November, Last Filed: 10/04/23 15:38> Stated complaint: abdominal pain <Noreen Healy November, Last Filed: 10/04/23 15:38> Time Seen by Provider: 10/04/23 15:34 <Noreen Healy November, Last Filed: 10/04/23 15:38> Focused HPI: Flaco Best is a 33 y/o male presents today wt reports of mid abdominal pain that started 1 hour ago along with nausea vomiting. Continues to have pain to his abdomen 02/08 and feels nauseated. Last BM was yesterday and normal. Denies any testicular pain GENERAL: Well-appearing, well-nourished, and in no acute distress. HEAD: Normocephalic, atraumatic. CHEST: Clear to auscultation. ?No respiratory distress. HEART: Regular rate and rhythm.? NEURO: ?Alert and oriented x3. Patient screened in triage and initial orders placed.? ?Additional care and disposition to be based upon?diagnostic testing and treatment. <Noreen Healy November, Last Filed: 10/04/23 15:38> Related Data Allergies/adverse reactions: Allergies Allergy/AdvReac Type Severity Reaction Status Date / Time No Known Allergies Allergy Verified 10/04/23 14:43 <Noreen Healy November, Last Filed: 10/04/23 15:38> PMFSH Past Medical History Medical History: Medical History Depression Pericarditis <Noreen Healy November, Last Filed: 10/04/23 15:38> Surgical History Surgical History: Surgical History No pertinent past surgical history <Noreen Healy November, Last Filed: 10/04/23 15:38> Social History Social History: Social History Substance use type: marijuana <Noreen Healy November, - Last Filed: 10/04/23 15:38> Course Vital Signs Vital signs: Vital Signs Temperature 97.4 F L 10/04/23 14:51 Pulse Rate 84 10/04/23 14:51 Respiratory Rate 20 10/04/23 14:51 Blood Pressure 134/69 10/04/23 14:51 Pulse Oximetry 100 10/04/23 14:51 Oxygen Delivery Room Air 10/04/23 14:51 Temperature 97.6 F 10/04/23 18:52 Pulse Rate 76 10/04/23 18:52 Respiratory Rate 20 10/04/23 18:52 Blood Pressure 112/74 10/04/23 18:52 Pulse Oximetry 100 10/04/23 18:52 Oxygen Delivery Room Air 10/04/23 14:51 <Noreen Thomson, WIRE REPAIRER - Last Filed: 10/04/23 15:38> Vital Signs Temperature 97.4 F L 10/04/23 14:51 Pulse Rate 84 10/04/23 14:51 Respiratory Rate 20 10/04/23 14:51 Blood Pressure 134/69 10/04/23 14:51 Pulse Oximetry 100 10/04/23 14:51 Oxygen Delivery Room Air 10/04/23 14:51 Temperature 97.6 F 10/04/23 18:52 Pulse Rate 76 10/04/23 18:52 Respiratory Rate 20 10/04/23 18:52 Blood Pressure 112/74 10/04/23 18:52 Pulse Oximetry 100 10/04/23 18:52 Oxygen Delivery Room Air 10/04/23 14:51 <Adonay Malagon MD - Last Filed: 10/19/23 07:24> Medical Decision Making MDM Narrative Medical decision making narrative: 33-year-old male presenting emergency department for evaluation of abdominal pain that started after the patient had emesis. Patient states since arriving to the emergency department that the pain has improved. Patient is afebrile with no leukocytosis and a stable hemoglobin of 11.7, no acute abnormalities on the patient's CMP, UA did have ketones. X-ray shows no evidence of ileus or obstruction. Patient did feel improved with treatment. Patient was provided Zofran for home and was encouraged to have close follow-up with his primary care physician. <Adonay Malagon MD - Last Filed: 10/19/23 07:24> Vital Signs Vital Signs: Vital Signs Temperature 97.4 F L 10/04/23 14:51 Pulse Rate 84 10/04/23 14:51 Respiratory Rate 20 10/04/23 14:51 Blood Pressure 134/69 10/04/23 14:51 Pulse Oximetry 100 10/04/23 14:51 Oxygen Delivery Room Air 10/04/23 14:51 Temperatu
[2023-10-04 17:12] VITALS: BP 121/62; PULSE 81; RESP 17; O2SAT 98
[2023-10-04 17:20] LABS: Appearance Urine Turbid (Clear); Bacteria Urine None Seen /hpf; Bilirubin Urine Negative (Negative); Blood Urine Negative (Negative); Color Urine Yellow (Yellow); Glucose Urine UA Negative (Negative); Ketones Urine Trace mg/dL (Negative); Leukocyte Esterase Ur Trace LEU/UL (Negative); Nitrate Urine Negative (Negative); Non Pathogenic Casts 0-2; Protein Urine Negative (Negative); Specific Grav Ur 1.023 (1.001-1.035); Squamous Epithelial Cell Urine None seen /hpf (Few)
[2023-10-04 17:33] LABS: Add Urine Microscopic? YES
[2023-10-04] MEDS: ONDANSETRON HCL ODT 4 MG TABLET PO (18:49)
[2023-10-04 18:52] VITALS: BP 112/74; PULSE 76; RESP 20; TEMP 36.4; O2SAT 100
== END 2023-10-04 18:53 | disposition home or self-care (01) ==
PROVIDERS: Emergency Medicine; Emergency Provider Emergency Medicine
DX: R10.9 Unspecified abdominal pain (principal); R11.2 Nausea with vomiting, unspecified; I31.9 Disease of pericardium, unspecified
CPT/HCPCS: 36415; 74019; 80053; 81001; 83690; 85025; 87086; 87088; 99283; A9270

== ENCOUNTER 2023-10-13 08:56 | Emergency (ER) | payer OTHER, SELFPAY ==
--- NOTE | ~2023-10-13 | CT_ITS ---
EXAMINATION: CT abdomen pelvis w con DATE: 10/13/2023 10:13 INDICATION: Umbilical pain. TECHNIQUE: Computed tomography (CT) of the abdomen and pelvis was performed with 100 mL Omnipaque 350 intravenous contrast. Automated exposure control and iterative reconstruction technique were employe d. The dose-length product was 301.57 mGy-cm. COMPARISON: CT abdomen and pelvis 09/22/2023 FINDINGS: The visualized portions of the lung bases demonstrate minimal atelectasis. No pleural effus ion. The heart size is normal. No pericardial effusion. The liver, gallbladder, spleen, pancreas, and adrenal glands are normal. There are cysts in right kidney measuring up to 13 mm. There is a [address] one in left kidney. There are no dilated loops of bowel. The appendix is normal. There are no patholo gically enlarged lymph nodes. There is no free intraperitoneal fluid. There is mild lumbar spondylosi s. IMPRESSION: 1. No etiology for the patient's symptoms. Reviewed, dictated and finalized at location A.
[2023-10-13 09:04] VITALS: BP 124/75; PULSE 72; RESP 18; TEMP 36.9; O2SAT 99
[2023-10-13 09:26] LABS: Basophils Percent Auto 0.2 % (0.2-1.2); Eosinophils Absolute Auto 0.1 K/mm3 (0-0.3); Eosinophils Percent Auto 3.1 % (0-4.4); Hematocrit 36.1 % (42.0-52.0); Hemoglobin 11.4 g/dL (14.0-18.0); Immature Granulocyte Absolute 0.02 K/mm3 (0.00-0.031); Immature Granulocyte Percent A 0.4 % (0-0.5); Lymphocytes Absolute Auto 1.11 K/mm3 (0.9-3.2); Lymphocytes Percent Auto 24.7 % (18.3-44.2); Mean Corpuscular HGB Conc 31.6 g/dl (32-36); Mean Corpuscular Hemoglobin 28.2 pg (26-34); Mean Corpuscular Volume 89.4 fl (80-100); Mean Platelet Volume 9.8 fl (7.4-10.4); Monocytes Absolute Auto 0.5 K/mm3 (0.1-0.6); Monocytes Percent Auto 11.8 % (2.6-8.5); Neutrophils Absolute Auto 2.7 K/mm3 (1.3-6.7); Neutrophils Percent Auto 59.8 % (45.5-73.1); Platelet Count Result 263 k/mm3 (150-375); Red Blood Count 4.04 M/mm3 (4.6-6.20); Red Cell Distribution Width 13.9 % (11.5-14.5); White Blood Count 4.5 K/mm3 (4.5-10.0)
--- NOTE | 2023-10-13 09:30 | PC.NURSE ---
Pt unable to give urine sample at this time. Instructed to notify staff when able to urinate
--- NOTE | 2023-10-13 09:35 | ED.ABDPAIN ---
HPI - Abdominal Pain General Chief Complaint: Abdominal Pain Stated Complaint: abdominal pain Time Seen by Provider: 10/13/23 09:12 Source: patient Mode of arrival: ambulatory Limitations: no limitations History of Present Illness HPI narrative: This is a 33 year old male that presents to the ER for abdominal pain. Ongoing over the last couple of days. Associated with nausea and vomiting. Pain is worsened with bowel movement. Denies fever, diarrhea, or dysuria. Related Data Allergies Allergy/AdvReac Type Severity Reaction Status Date / Time No Known Allergies Allergy Verified 10/04/23 14:43 Review of Systems Review of Systems: CONSTITUTIONAL: Denies fever GASTROINTESTINAL: Reports abdominal pain, nausea, vomiting. Denies diarrhea. GENITOURINARY: Denies dysuria or hematuria. All systems reviewed & are unremarkable except as noted in HPI and below PMFSH Past Medical History Medical History Depression Pericarditis Surgical History Surgical History No pertinent past surgical history Social History Social History Substance use type: marijuana Exam Narrative: GENERAL: Well-appearing, well-nourished, and in no acute distress. HEAD: Normocephalic, atraumatic. EYES: EOMI. CHEST: Clear to auscultation. No respiratory distress. No wheezes rales or rhonchi HEART: Regular rate and rhythm. No murmur heard. Normal peripheral pulses. ABDOMEN: Soft, nondistended, normal active bowel sounds. Tender to palpation in the mid abdomen, without guarding EXTREMITIES: Normal range of motion. No edema. SKIN: Warm, dry, no rash. NEURO: No focal deficits. Alert and oriented x3. PSYCH: Normal mood and affect Course Course Emergency Course: Patient updated on his workup and agrees with plan of care Vital Signs Vital signs: Vital Signs Temperature 98.5 F 10/13/23 09:04 Pulse Rate 72 10/13/23 09:04 Respiratory Rate 18 10/13/23 09:04 Blood Pressure 124/75 10/13/23 09:04 Pulse Oximetry 99 10/13/23 09:04 Oxygen Delivery Room Air 10/13/23 09:04 Temperature 98.9 F 10/13/23 09:54 Pulse Rate 74 10/13/23 09:54 Respiratory Rate 16 10/13/23 09:54 Blood Pressure 126/74 10/13/23 09:54 Pulse Oximetry 98 10/13/23 09:54 Oxygen Delivery Room Air 10/13/23 09:04 MDM - Abdominal Pain MDM Narrative Medical decision making narrative: Patient presents to the ER for abdominal pain, nausea and vomiting. Ongoing over the last couple of days. He is afebrile and nontoxic appearing. His vitals are normal. CBC without leukocytosis. Metabolic panel and lipase without concerning findings. CT abdomen and pelvis without acute findings. Patient was updated on his workup and agrees with plan of care. Instructed to have further follow-up with primary provider. He was given warnings to return to the ER Differential Diagnosis Differential diagnosis: Likely constipation, diverticulitis and gastroenteritis Lab Data Attestation: I reviewed the patient's lab results. 10/13/23 09:19 10/13/23 09:19 Labs: Lab Results 10/13/23 Range/Units 09:19 WBC 4.5 (4.5-10.0) K/mm3 RBC 4.04 L (4.6-6.20) M/mm3 Hgb 11.4 L (14.0-18.0) g/dL Hct 36.1 L (42.0-52.0) % MCV 89.4 (80-100) fl MCH 28.2 (26-34) pg MCHC 31.6 L (32-36) g/dl RDW 13.9 (11.5-14.5) % Plt Count 263 (150-375) k/mm3 MPV 9.8 (7.4-10.4) fl Immature Gran % (Auto) 0.4 (0-0.5) % Neut % (Auto) 59.8 (45.5-73.1) % Lymph % (Auto) 24.7 (18.3-44.2) % Cannon % (Auto) 11.8 H (2.6-8.5) % Eos % (Auto) 3.1 (0-4.4) % Baso % (Auto) 0.2 (0.2-1.2) % Lymph # (Auto) 1.11 (0.9-3.2) K/mm3 Cannon # (Auto) 0.5 (0.1-0.6) K/mm3 Eos # (Auto) 0.1 (0-0.3) K/mm3 Baso # (Auto) 0.0 (0.0-0.1) K/mm3 Abs Immat Gran (auto) 0.02 (0.00-0.031) K/mm
[2023-10-13 09:41] LABS: Alanine Aminotransferase 29 U/L (6-50); Albumin Level 3.9 g/dL (3.5-5.1); Alkaline Phosphatase 50 U/L (38-126); Anion Gap 4 mmol/L (8-16); Aspartate Amino Transferase 33 U/L (17-59); Bilirubin,Total 0.4 mg/dL (0.2-1.3); Blood Urea Nitrogen 11 mg/dL (9-20); Calcium 9.1 mg/dL (8.4-10.2); Carbon Dioxide 24 mmol/L (22-30); Chloride 109 mmol/L (98-107); Estimated CRCL calculation 102 ml/min; Estimated Glomerular Filt Rate > 60; Glucose 109 mg/dL (65-110); Lipase 91 U/L (23-300); Potassium 4.3 mmol/L (3.4-5.0); Sodium 137 mmol/L (137-145)
[2023-10-13] MEDS: ONDANSETRON INJ 4 MG/2 ML VIAL IV PUSH (09:51)
[2023-10-13] MEDS: PANTOPRAZOLE SODIUM IV 40 MG VIAL IV PUSH (09:51)
[2023-10-13 09:54] VITALS: BP 126/74; PULSE 74; RESP 16; TEMP 37.2; O2SAT 98
[2023-10-13 10:37] VITALS: BP 117/77; PULSE 68; RESP 18; TEMP 36.8; O2SAT 100
== END 2023-10-13 10:39 | disposition home or self-care (01) ==
PROVIDERS: Emergency Provider Physician Assistant
DX: R10.33 Periumbilical pain (principal); F32.A Depression, unspecified
CPT/HCPCS: 36415; 74177; 80053; 83690; 85025; 96374; 96375; 99284; C9113; J2405; Q9967

== ENCOUNTER 2023-10-22 09:53 | Emergency (ER) | payer OTHER, SELFPAY ==
[2023-10-22 09:55] VITALS: BP 125/95; PULSE 96; RESP 18; TEMP 36.4; O2SAT 100
[2023-10-22 10:28] LABS: Basophils Percent Auto 0.4 % (0.2-1.2); Eosinophils Absolute Auto 0.1 K/mm3 (0-0.3); Eosinophils Percent Auto 2.5 % (0-4.4); Hematocrit 39.3 % (42.0-52.0); Hemoglobin 12.1 g/dL (14.0-18.0); Immature Granulocyte Absolute 0.02 K/mm3 (0.00-0.031); Immature Granulocyte Percent A 0.4 % (0-0.5); Lymphocytes Absolute Auto 1.34 K/mm3 (0.9-3.2); Lymphocytes Percent Auto 25.4 % (18.3-44.2); Mean Corpuscular HGB Conc 30.8 g/dl (32-36); Mean Corpuscular Hemoglobin 27.8 pg (26-34); Mean Corpuscular Volume 90.1 fl (80-100); Mean Platelet Volume 9.5 fl (7.4-10.4); Monocytes Absolute Auto 0.6 K/mm3 (0.1-0.6); Monocytes Percent Auto 11.2 % (2.6-8.5); Neutrophils Absolute Auto 3.2 K/mm3 (1.3-6.7); Neutrophils Percent Auto 60.1 % (45.5-73.1); Platelet Count Result 324 k/mm3 (150-375); Red Blood Count 4.36 M/mm3 (4.6-6.20); Red Cell Distribution Width 14.2 % (11.5-14.5); White Blood Count 5.3 K/mm3 (4.5-10.0)
[2023-10-22 10:40] LABS: Alanine Aminotransferase 23 U/L (6-50); Albumin Level 4.6 g/dL (3.5-5.1); Alkaline Phosphatase 54 U/L (38-126); Anion Gap 2 mmol/L (8-16); Aspartate Amino Transferase 41 U/L (17-59); Bilirubin,Total 0.3 mg/dL (0.2-1.3); Blood Urea Nitrogen 11 mg/dL (9-20); Calcium 9.6 mg/dL (8.4-10.2); Carbon Dioxide 30 mmol/L (22-30); Chloride 107 mmol/L (98-107); Estimated CRCL calculation 95 ml/min; Estimated Glomerular Filt Rate > 60; Glucose 96 mg/dL (65-110); Lipase 72 U/L (23-300); Potassium 4.2 mmol/L (3.4-5.0); Sodium 139 mmol/L (137-145)
[2023-10-22 10:56] LABS: Appearance Urine Clear (Clear); Bacteria Urine None Seen /hpf; Bilirubin Urine Negative (Negative); Blood Urine Non-Hemolyzed Trace (Negative); Color Urine Yellow (Yellow); Glucose Urine UA Negative (Negative); Ketones Urine Trace mg/dL (Negative); Leukocyte Esterase Ur 1+ LEU/UL (Negative); Nitrate Urine Negative (Negative); Non Pathogenic Casts 0-2; Protein Urine Trace mg/dL (Negative); RBC Urine 0-2 /hpf (0-2); Specific Grav Ur 1.027 (1.001-1.035); Squamous Epithelial Cell Urine None Seen /hpf (Few); WBC Urine 21-50 /hpf (0-3)
[2023-10-22 10:59] LABS: Add Urine Microscopic? YES
--- NOTE | 2023-10-22 11:33 | ED.ABDPAIN ---
HPI - Abdominal Pain General Chief Complaint: Abdominal Pain Stated Complaint: stomach pain Time Seen by Provider: 10/22/23 10:48 Source: patient Mode of arrival: ambulatory Limitations: no limitations History of Present Illness HPI narrative: Patient is a 33-year-old male who presents the ED with report of periumbilical abdominal pain. Patient reports pain began last night and persisted into today. He reported having an episode of vomiting earlier today. He does still feel nauseous currently. he has previously been prescribed Zofran and tried taking this at home without improvement. Patient has been seen in our ED several times for similar abdominal pain. Workups have been unremarkable. He has not tried anything for the pain today. He denies any fevers, diarrhea, constipation, dysuria, hematuria. Patient frequently uses marijuana. Related Data Allergies Allergy/AdvReac Type Severity Reaction Status Date / Time No Known Allergies Allergy Verified 10/22/23 09:53 Review of Systems Review of Systems: CONSTITUTIONAL: Denies fever, chills, or sweats. CARDIOVASCULAR: Denies chest pain. RESPIRATORY: Denies dyspnea. GASTROINTESTINAL: See HPI. GENITOURINARY: Denies dysuria or hematuria. MUSCULOSKELETAL: Denies back pain, extremity pain, myalgia. All systems reviewed & are unremarkable except as noted in HPI and below PMFSH Past Medical History Medical History Depression Pericarditis Surgical History Surgical History No pertinent past surgical history Social History Social History Substance use type: marijuana Exam Narrative: GENERAL: Well appearing, well-nourished, non-toxic, in no acute distress. HEAD: Normocephalic, atraumatic. RESPIRATORY: Airway patent, respirations nonlabored. Clear to auscultation bilaterally, no rales, rhonchi, wheezing. CARDIOVASCULAR: Regular rate and rhythm without murmurs, rubs, or gallops. ABDOMINAL: Soft, mild tenderness in LLQ/periumbilical region, nondistended. Normoactive BS. MUSCULOSKELETAL: Moves all extremities. No gross deformities. SKIN: Warm, dry, normal color. NEURO: A&O X3. Speech clear. PSYCHIATRIC: Flat affect. Normal interaction. Course Vital Signs Vital signs: Vital Signs Temperature 97.6 F 10/22/23 09:55 Pulse Rate 96 10/22/23 09:55 Respiratory Rate 18 10/22/23 09:55 Blood Pressure 125/95 H 10/22/23 09:55 Pulse Oximetry 100 10/22/23 09:55 Temperature 97.6 F 10/22/23 09:55 Pulse Rate 80 10/22/23 11:57 Respiratory Rate 15 10/22/23 11:57 Blood Pressure 122/86 10/22/23 11:57 Pulse Oximetry 99 10/22/23 11:57 MDM - Abdominal Pain MDM Narrative Medical decision making narrative: Patient present ED with 1 day history of periumbilical abdominal pain. History of similar ED visit, associated with 1 episode of nausea and vomiting. Vitals are stable upon arrival. Patient in no acute distress. Laboratory studies are reassuring. No leukocytosis. Stable mild anemia. CMP unremarkable. Urinalysis with possible infection, 1+ leuk esterase, 21-50 WBC. Patient denies urinary symptoms at this time. Denies concern for STDs. Sent for culture. Discussed treatment versus waiting for culture results. Patient would prefer discharge treatment now. Given dose of Keflex in the ED. given Tylenol and Bentyl. Patient has not tried anything for pain prior to arrival. Discussed reassuring laboratory studies and possibility of obtaining a CT scan of the abdomen. Patient has had several previous CT scans done recently which have been unremarkable. He would prefer to avoid imaging at this time. Will re-evaluate for pain control. On re-evaluation, patient feeling better. Symptoms improved. Nausea resolved. He was able to tolerate p.o. intake.
[2023-10-22] MEDS: DICYCLOMINE HCL 10 MG CAPSULE 20 MG PO (11:35)
[2023-10-22] MEDS: CEPHALEXIN 500 MG CAPSULE PO (11:35)
[2023-10-22] MEDS: ACETAMINOPHEN 500 MG TABLET 1000 MG PO (11:35)
[2023-10-22] MEDS: ONDANSETRON INJ 4 MG/2 ML VIAL IV PUSH (11:55)
[2023-10-22 11:57] VITALS: BP 122/86; PULSE 80; RESP 15; O2SAT 99
== END 2023-10-22 12:37 | disposition home or self-care (01) ==
PROVIDERS: Preventive Medicine Aerospace Medicine; Emergency Provider Physician Assistant
DX: N30.00 Acute cystitis without hematuria (principal); R10.33 Periumbilical pain; R11.2 Nausea with vomiting, unspecified
CPT/HCPCS: 36415; 80053; 83690; 85025; 87086; 96374; 99284; A9270; J2405

== ENCOUNTER 2023-11-05 09:38 | Emergency (ER) | payer OTHER, SELFPAY ==
--- NOTE | ~2023-11-05 | CT_ITS ---
EXAMINATION: CT abdomen pelvis w con DATE: 11/05/2023 13:35 INDICATION: Abdominal pain. TECHNIQUE: Computed tomography (CT) of the abdomen and pelvis was performed with 100 mL Omnipaque 350 intravenous contrast. Automated exposure control and iterative reconstruction technique were employe d. The dose-length product was 280.51 mGy-cm. COMPARISON: None. FINDINGS: The visualized portions of the lung bases are clear without pneumonia or pleural effusion. The heart size is normal. No pericardial effusion. The liver, spleen, gallbladder, pancreas, and adre nal glands are normal. There is cortical thinning of the kidneys. There is an 8 mm cyst in right kidn ey. There is a 3 mm stone in left kidney. There are no dilated loops of bowel. The appendix is normal . There are no pathologically enlarged lymph nodes. There is no free intraperitoneal fluid. There is mild lumbar spondylosis. IMPRESSION: 1. No etiology for the patient's symptoms. Reviewed, dictated and finalized at location A.
[2023-11-05 09:44] VITALS: BP 113/65; PULSE 69; RESP 18; TEMP 36.9; O2SAT 100
[2023-11-05 10:01] LABS: Basophils Percent Auto 0.4 % (0.2-1.2); Eosinophils Absolute Auto 0.1 K/mm3 (0-0.3); Eosinophils Percent Auto 2.6 % (0-4.4); Hematocrit 37.1 % (42.0-52.0); Hemoglobin 11.4 g/dL (14.0-18.0); Immature Granulocyte Absolute 0.01 K/mm3 (0.00-0.031); Immature Granulocyte Percent A 0.2 % (0-0.5); Lymphocytes Absolute Auto 1.34 K/mm3 (0.9-3.2); Mean Corpuscular HGB Conc 30.7 g/dl (32-36); Mean Corpuscular Hemoglobin 27.3 pg (26-34); Mean Platelet Volume 9.1 fl (7.4-10.4); Monocytes Absolute Auto 0.5 K/mm3 (0.1-0.6); Monocytes Percent Auto 8.9 % (2.6-8.5); Neutrophils Absolute Auto 3.4 K/mm3 (1.3-6.7); Neutrophils Percent Auto 62.9 % (45.5-73.1); Platelet Count Result 324 k/mm3 (150-375); Red Blood Count 4.17 M/mm3 (4.6-6.20); Red Cell Distribution Width 14.5 % (11.5-14.5); White Blood Count 5.4 K/mm3 (4.5-10.0)
[2023-11-05 10:35] LABS: Alanine Aminotransferase 33 U/L (6-50); Albumin Level 4.3 g/dL (3.5-5.1); Alkaline Phosphatase 57 U/L (38-126); Anion Gap 3 mmol/L (4-12); Aspartate Amino Transferase 56 U/L (17-59); Bilirubin,Total 0.4 mg/dL (0.2-1.3); Blood Urea Nitrogen 9 mg/dL (9-20); Calcium 9.4 mg/dL (8.4-10.2); Carbon Dioxide 29 mmol/L (22-30); Chloride 109 mmol/L (98-107); Estimated CRCL calculation 80 ml/min; Estimated Glomerular Filt Rate > 60; Glucose 105 mg/dL (65-110); Lipase 73 U/L (23-300); Potassium 4.3 mmol/L (3.4-5.0); Sodium 141 mmol/L (137-145)
[2023-11-05 11:49] LABS: Appearance Urine Cloudy (Clear); Bacteria Urine None Seen /hpf; Bilirubin Urine Negative (Negative); Blood Urine Negative (Negative); Color Urine Yellow (Yellow); Glucose Urine UA Negative (Negative); Ketones Urine Trace mg/dL (Negative); Leukocyte Esterase Ur Negative LEU/UL (Negative); Nitrate Urine Negative (Negative); Non Pathogenic Casts 0-2; Protein Urine Trace mg/dL (Negative); RBC Urine 0-2 /hpf (0-2); Specific Grav Ur 1.027 (1.001-1.035); Squamous Epithelial Cell Urine None Seen /hpf (Few); Urobilinogen Urine 0.2 mg/dL (<2.0); WBC Urine 0-5 /hpf (0-3); pH Urine 5.5 (5.0-9.0)
[2023-11-05 12:11] LABS: Add Urine Microscopic? YES
--- NOTE | 2023-11-05 12:59 | ED.ABDPAIN ---
HPI - Abdominal Pain General Chief Complaint: Abdominal Pain Stated Complaint: abd pain Time Seen by Provider: 11/05/23 11:45 History of Present Illness HPI narrative: 33-year-old male presents to the emergency department for evaluation of periumbilical abdominal pain that started last night. Patient denies any associated nausea vomiting constipation or diarrhea. Patient denies any significant past medical history. Related Data Allergies Allergy/AdvReac Type Severity Reaction Status Date / Time No Known Allergies Allergy Verified 11/05/23 09:48 Review of Systems Review of Systems: All systems reviewed & are unremarkable except as noted in HPI and below PMFSH Past Medical History Medical History Depression Pericarditis Surgical History Surgical History No pertinent past surgical history Social History Social History Substance use type: marijuana Exam Narrative: APPEARANCE: Well appearing, no pain, no distress, well-nourished. HEAD: normocephalic, atraumatic. EYES: PERRLA/EOMI, conjunctivae clear. NOSE: Normal no drainage EARS:TMS clear with good light reflex. THROAT: Pharynx clear, no exudate. NECK: Supple. No adenopathy, no masses. RESPIRATORY: Airway patent, respirations nonlabored. Clear to auscultation bilaterally, no rales, rhonchi, wheezing. CARDIOVASCULAR: Regular rate and rhythm without murmurs rubs or gallops. ABDOMINAL: Diffuse abdominal tenderness to palpation MUSCULOSKELETAL: Moves all extremities. Strength/ROM intact, No edema, No calf tenderness. NEURO: Alert. Cranial nerves II through XII intact. grossly intact Course Course Emergency Course: Patient felt improved was discharged to home Vital Signs Vital signs: Vital Signs Temperature 98.4 F 11/05/23 09:44 Pulse Rate 69 11/05/23 09:44 Respiratory Rate 18 11/05/23 09:44 Blood Pressure 113/65 11/05/23 09:44 Pulse Oximetry 100 11/05/23 09:44 Oxygen Delivery Room Air 11/05/23 09:44 Temperature 98.4 F 11/05/23 09:44 Pulse Rate 75 11/05/23 15:03 Respiratory Rate 18 11/05/23 15:03 Blood Pressure 120/74 11/05/23 15:03 Pulse Oximetry 100 11/05/23 15:03 Oxygen Delivery Room Air 11/05/23 09:44 MDM - Abdominal Pain MDM Narrative Medical decision making narrative: 33-year-old male presents emergency department for evaluation for abdominal pain. Patient was afebrile with no leukocytosis and a stable hemoglobin of 10.4, no acute abnormalities on the patient's CMP. UA shows no underlying evidence of infection. CT scan showed no explanation for the patient's abdominal pain. Patient was updated the results of the workup and patient was encouraged to follow a clear liquid diet for the next few days and to take Tylenol ibuprofen for pain control. Differential Diagnosis Differential diagnosis: Likely abdominal pain, acute appendicitis, calculus of kidney, constipation, diverticulitis, gastroenteritis, pancreatitis and small bowel obstruction Lab Data Attestation: I reviewed the patient's lab results. 11/05/23 09:55 11/05/23 09:55 Labs: Lab Results 11/05/23 11/05/23 Range/Units 09:55 11:27 WBC 5.4 (4.5-10.0) K/mm3 RBC 4.17 L (4.6-6.20) M/mm3 Hgb 11.4 L (14.0-18.0) g/dL Hct 37.1 L (42.0-52.0) % MCV 89.0 (80-100) fl MCH 27.3 (26-34) pg MCHC 30.7 L (32-36) g/dl RDW 14.5 (11.5-14.5) % Plt Count 324 (150-375) k/mm3 MPV 9.1 (7.4-10.4) fl Immature Gran % (Auto) 0.2 (0-0.5) % Neut % (Auto) 62.9 (45.5-73.1) % Lymph % (Auto) 25.0 (18.3-44.2) % [place] % (Auto) 8.9 H (2.6-8.5) % Eos % (Auto) 2.6 (0-4.4) % Baso % (Auto) 0.4 (0.2-1.2) % Lymph # (Auto) 1.34 (0.9-3.2) K/mm3 [place] # (Auto) 0.5 (0.1-0.6) K/mm3 Eos # (Auto
[2023-11-05 15:03] VITALS: BP 120/74; PULSE 75; RESP 18; O2SAT 100
== END 2023-11-05 15:05 | disposition home or self-care (01) ==
PROVIDERS: Emergency Provider Emergency Medicine
DX: R10.9 Unspecified abdominal pain (principal)
CPT/HCPCS: 36415; 74177; 80053; 81001; 83690; 85025; 99284; Q9967

== ENCOUNTER 2023-11-11 12:45 | Emergency (ER) | payer OTHER, SELFPAY ==
[2023-11-11] VITALS (9 sets, daily range): BP systolic 111–142; BP diastolic 60–88; PULSE 63–82; RESP 12–16; TEMP 37.1; O2SAT 97–99
--- NOTE | ~2023-11-11 | XR_ITS ---
EXAMINATION: XR chest 2V DATE: 11/11/2023 13:47 INDICATION: Left chest pain. TECHNIQUE: Frontal and lateral views of the chest were obtained. COMPARISON: Chest 2 views 09/02/2023 FINDINGS: There is mild scarring at the lung apices. No pleural effusion or pneumothorax. The heart s ize is normal. IMPRESSION: 1. Stable mild scarring at the lung apices. Reviewed, dictated and finalized at location A.
--- NOTE | 2023-11-11 12:49 | ECG_ITS ---
SEE SCANNED COPY FOR CONFIRMED REPORT MTDD
[2023-11-11 13:07] LABS: Basophils Percent Auto 0.6 % (0.2-1.2); Eosinophils Absolute Auto 0.2 K/mm3 (0-0.3); Eosinophils Percent Auto 2.8 % (0-4.4); Immature Granulocyte Absolute 0.02 K/mm3 (0.00-0.031); Immature Granulocyte Percent A 0.3 % (0-0.5); Lymphocytes Absolute Auto 1.44 K/mm3 (0.9-3.2); Lymphocytes Percent Auto 23.3 % (18.3-44.2); Mean Corpuscular HGB Conc 31.4 g/dl (32-36); Mean Corpuscular Hemoglobin 27.4 pg (26-34); Mean Corpuscular Volume 87.1 fl (80-100); Mean Platelet Volume 9.5 fl (7.4-10.4); Monocytes Absolute Auto 0.7 K/mm3 (0.1-0.6); Monocytes Percent Auto 11.5 % (2.6-8.5); Neutrophils Absolute Auto 3.8 K/mm3 (1.3-6.7); Neutrophils Percent Auto 61.5 % (45.5-73.1); Platelet Count Result 313 k/mm3 (150-375); Red Blood Count 4.02 M/mm3 (4.6-6.20); Red Cell Distribution Width 14.3 % (11.5-14.5); White Blood Count 6.2 K/mm3 (4.5-10.0)
[2023-11-11] MEDS: ASPIRIN 81 MG CHEWABLE TABLET 324 MG PO (13:18)
[2023-11-11 13:20] LABS: Alanine Aminotransferase 33 U/L (6-50); Albumin Level 4.3 g/dL (3.5-5.1); Alkaline Phosphatase 67 U/L (38-126); Anion Gap 5 mmol/L (4-12); Aspartate Amino Transferase 34 U/L (17-59); Bilirubin,Total 0.2 mg/dL (0.2-1.3); Blood Urea Nitrogen 11 mg/dL (9-20); Calcium 9.2 mg/dL (8.4-10.2); Carbon Dioxide 25 mmol/L (22-30); Chloride 109 mmol/L (98-107); Estimated CRCL calculation 102 ml/min; Estimated Glomerular Filt Rate > 60; Glucose 123 mg/dL (65-110); Lipase 132 U/L (23-300); Partial Thromboplastin Time 26.9 Seconds (22.3-36.8); Potassium 4.4 mmol/L (3.4-5.0); Prothrombin Time 13.7 Seconds (11.1-14.7); Sodium 139 mmol/L (137-145)
--- NOTE | 2023-11-11 13:29 | ED.CHESTPAIN ---
HPI - Chest Pain General Chief Complaint: Chest Pain Stated Complaint: chest pain Time Seen by Provider: 11/11/23 13:17 Source: patient Mode of arrival: ambulatory Limitations: no limitations History of Present Illness HPI narrative: 33-year-old male with chronic pericarditis presenting to emergency department with chest pain. Started about 30 minutes prior to arrival. It is anterior, feels like it typically does when he gets this chest pain. He ran out of his colchicine a few days ago which is primarily why he came in Related Data Allergies Allergy/AdvReac Type Severity Reaction Status Date / Time No Known Allergies Allergy Verified 11/05/23 09:48 Review of Systems Review of Systems: All systems reviewed & are unremarkable except as noted in HPI and below PMFSH Past Medical History Medical History Depression Pericarditis Surgical History Surgical History No pertinent past surgical history Social History Social History Substance use type: marijuana Exam Narrative: Constitutional: Generally well appearing, no acute distress Head: Atraumatic, no deformities. Eyes: Pupils equal, round, and reactive to light. Neck: Supple, no tracheal deviation, no JVD. ENMT: Mucous membranes moist Cardiovascular: S1, S2 auscultated. No murmurs, rubs, or gallops. No S3/S4. Normal Distal pulses. No peripheral edema. Respiratory: Lung sounds equal. No wheezes, rales, or rhonchi. Gastrointestinal: Abdomen was soft and non-tender. Non-distended. No rebound or guarding. Genitourinary: Deferred Musculoskeletal: Normal muscle tone and bulk. No obvious deformities or tenderness over extremities. Skin: No rashes. Neurological: Strength 5/5 in extremities. Cranial nerves I-XII grossly intact. Distal sensation intact. Mental Status: Awake, alert and oriented x3. Follows commands Course Vital Signs Vital signs: Vital Signs Temperature 37.1 C 11/11/23 12:47 Pulse Rate 82 11/11/23 12:47 Respiratory Rate 16 11/11/23 12:47 Blood Pressure 142/88 H 11/11/23 12:47 Pulse Oximetry 99 11/11/23 12:47 Oxygen Delivery Room Air 11/11/23 12:47 Temperature 37.1 C 11/11/23 12:47 Pulse Rate 82 11/11/23 12:47 Respiratory Rate 16 11/11/23 12:47 Blood Pressure 142/88 H 11/11/23 12:47 Pulse Oximetry 99 11/11/23 13:15 Oxygen Delivery Room Air 11/11/23 13:15 MDM - Chest Pain MDM Narrative Medical decision making narrative: 33-year-old male presenting for chest pain. Has history of pericarditis. Feels like his pericarditis. He typically takes colchicine daily but ran out a few days ago. On exam is well appearing, normal vital signs. Normal cardiorespiratory exam. Obtaining cardiac workup. EKG at 12:51 p.m. shows sinus rhythm. It is reading acute AK but this is chronic for the patient his chronic ST elevations. Otherwise normal intervals. Impression: ST changes, chronic pericarditis Troponin x2 negative. Presentation consistent with chronic pancreatitis. Patient well appearing, stable for discharge. Given prescription for colchicine. Pt feeling improved and would like to go home at this point. Return precautions were given to the patient include any new or worsening symptoms or development of and not limited to any chest pain, shortness of breath, lightheadedness, abdominal pain, fevers, chills. Patient understands and agrees. They are to follow-up with her PCP. All questions were answered. I reviewed the patient's vital signs, history, allergies, and labs and imaging workup. Lab Data 11/11/23 13:00 11/11/23 13:00 Labs: Lab Results 11/11/23 11/11/23 Range/Units 13:00 15:01 WBC 6.2 (4.5-10.0) K/mm3 RBC 4.02 L (4.6-6.20) M/mm3 Hgb 11.0 L (14.0-18.0) g/dL Hct 35.0 L (42.
[2023-11-11 13:32] LABS: Troponin I < 0.012 ng/mL (0.000-0.034)
[2023-11-11] MEDS: COLCHICINE 0.6 MG TABLET PO (13:56)
[2023-11-11 15:29] LABS: Troponin I < 0.012 ng/mL (0.000-0.034)
== END 2023-11-11 16:20 | disposition home or self-care (01) ==
PROVIDERS: Emergency Medicine; Emergency Provider Emergency Medicine
DX: I31.9 Disease of pericardium, unspecified (principal); R94.31 Abnormal electrocardiogram [ECG] [EKG]
CPT/HCPCS: 36415; 71046; 80053; 83690; 84484; 85025; 85610; 85730; 93005; 99284; A9270

== ENCOUNTER 2023-11-20 15:39 | Emergency (ER) | payer OTHER, SELFPAY ==
--- NOTE | ~2023-11-20 | XR_ITS ---
EXAMINATION: XR chest 1V portable Exam Date/Time: 11/20/2023 15:53 CDT HISTORY: chest pain Comparison: 11/11/2023. RESULT: Lines, tubes, and devices: None. Lungs and pleura: Mild biapical scarring, otherwise clear. Cardiomediastinal silhouette: Stable. Other: No acute osseous or upper abdominal finding. IMPRESSION: No acute cardiopulmonary process. Reviewed, dictated and finalized at location K.
[2023-11-20 15:41] VITALS: BP 120/72; PULSE 87; RESP 18; TEMP 36.6; O2SAT 98
--- NOTE | 2023-11-20 15:42 | ECG_ITS ---
SEE SCANNED COPY FOR CONFIRMED REPORT MTDD
[2023-11-20 15:46] VITALS: PULSE 88; O2SAT 97
[2023-11-20 15:47] VITALS: BP 120/72; PULSE 88; RESP 16; O2SAT 98
[2023-11-20 16:02] VITALS: BP 104/62; PULSE 79; RESP 15; TEMP 36.7; O2SAT 98
--- NOTE | 2023-11-20 16:21 | PC.NURSE ---
in room getting ready to give injection and pt pt suddenly refused IM medication
--- NOTE | 2023-11-20 16:51 | ED.CHESTPAIN ---
HPI - Chest Pain General Chief Complaint: Chest Pain Stated Complaint: chest pain Time Seen by Provider: 11/20/23 15:42 History of Present Illness HPI narrative: Patient presenting with chest pain that feels like his usual chest pain from his chronic pericarditis. He takes colchicine for symptoms. No new changes today, no new difficulty breathing. Related Data Allergies Allergy/AdvReac Type Severity Reaction Status Date / Time No Known Allergies Allergy Verified 11/20/23 15:48 Review of Systems Review of Systems: All systems reviewed & are unremarkable except as noted in HPI and below PMFSH Past Medical History Medical History Depression Pericarditis Surgical History Surgical History No pertinent past surgical history Social History Social History Substance use type: marijuana Exam Narrative: EXAMINATION OF ORGAN SYSTEMS/BODY AREAS: Constitutional: Vital signs per nursing GENERAL:[No acute distress, non-toxic appearing.] HEAD: Normal with no signs of head trauma. EYES: EOMI, conjunctiva normal ENT: Hearing grossly intact LUNGS: Nonlabored breathing. HEART: [Regular rate and rhythm] ABD: [Soft], [nontender to palpation] EXT: Normal range of motion SKIN: [No rashes or lesions.] NEURO: [Alert and oriented x 3. No gross focal sensory or strength deficits.] PSYCH: Normal affect Course Vital Signs Vital signs: Vital Signs Temperature 97.8 F 11/20/23 15:41 Pulse Rate 87 11/20/23 15:41 Respiratory Rate 18 11/20/23 15:41 Blood Pressure 120/72 11/20/23 15:41 Pulse Oximetry 98 11/20/23 15:41 Oxygen Delivery Room Air 11/20/23 15:41 Temperature 98.0 F 11/20/23 16:02 Pulse Rate 79 11/20/23 16:02 Respiratory Rate 15 11/20/23 16:02 Blood Pressure 104/62 11/20/23 16:02 Pulse Oximetry 98 11/20/23 16:02 Oxygen Delivery Room Air 11/20/23 15:46 MDM - Chest Pain MDM Narrative Medical decision making narrative: Patient with history of chronic pericarditis presents here with his usual symptoms, and no new changes. He is well appearing on exam, no respiratory distress, ambulating normally, he is asking for water and soda. He is homeless and does presents frequently to multiple emergency rooms with similar presentation. EKG obtained here on my a independent interpretation does show ST elevations in all leads consistent with pericarditis, this does appear very similar to his prior EKGs. Chest x-ray does not show any obvious pneumothorax or consolidation on my independent interpretation. I did perform pocus echo and I did see grossly normal EF without any significant pericardial effusion. Patient offered pain medicine but declined since he does not want a shot. He is just asking for more soda. 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 Stable for discharge at this time. Discharge Plan Discharge Clinical Impression: Chronic pericarditis Patient Disposition: Home, Self-Care Condition: Stable Instructions: Antibiotic Form, Chronic Pericarditis (ED) Additional Instructions: Please follow-up with your reactor fueling supervisor. Continue taking your medications as prescribed. You can always return to the ER for any further issues. Prescriptions: No Action ondansetron 4 mg tablet,disintegrating 4 mg PO Q8H PRN (Reason: nausea and vomiting) Qty: 10 0RF indomethacin 50 mg capsule 50 mg PO TID Qty: 30 0RF Rx Instructions: administer with food or milk acetaminophen 500 mg tablet 500 mg PO Q6H PRN (Reason: pain) Qty: 30 0RF ibuprofen 600 mg tablet 600 mg PO Q6H PRN (Reason: pain) Qty: 30 0RF cyclobenzaprine 5 mg tablet 5 mg PO TID P
== END 2023-11-20 16:24 | disposition home or self-care (01) ==
PROVIDERS: Emergency Provider Emergency Medicine
DX: I31.9 Disease of pericardium, unspecified (principal); R94.31 Abnormal electrocardiogram [ECG] [EKG]
CPT/HCPCS: 71045; 93005; 96372; 99283

== ENCOUNTER 2023-12-15 07:36 | Emergency (ER) | payer OTHER, SELFPAY ==
[2023-12-15] VITALS (21 sets, daily range): BP systolic 110–142; BP diastolic 62–91; PULSE 45–80; RESP 12–19; TEMP 36.3; O2SAT 98–100
--- NOTE | 2023-12-15 08:12 | ED.GENADULT ---
HPI - General Adult General Chief complaint: Unspecified Stated complaint: vomiting, depression Time Seen by Provider: 12/15/23 07:44 History of Present Illness HPI narrative: 33-year-old male presents to the emergency department for evaluation recurrent nausea vomiting. Patient states this morning he did have some speckles of blood in the emesis. Patient states he has had previous follow-up with GI at [facility] but does not recall there name. Patient states he does have suicidal ideation with a plan Related Data Home Medications Medication Instructions Recorded Confirmed clonazepam 0.5 mg tablet 0.5 mg PO PRN PRN Anxiety 12/15/23 12/15/23 cyanocobalamin (vitamin B-12) 10,000 mcg PO DAILY 12/15/23 12/15/23 1,000 mcg tablet doxycycline hyclate 100 mg capsule 100 mg PO DAILY 12/15/23 12/15/23 ferrous sulfate 325 mg (65 mg 325 mg PO DAILY 12/15/23 12/15/23 iron) tablet (FeroSul) Allergies Allergy/AdvReac Type Severity Reaction Status Date / Time No Known Allergies Allergy Verified 11/20/23 15:48 Review of Systems Review of Systems: All systems reviewed & are unremarkable except as noted in HPI and below PMFSH Past Medical History Medical History Depression Pericarditis Surgical History Surgical History No pertinent past surgical history Social History Social History Substance use type: marijuana Exam Narrative: APPEARANCE: Well appearing, no pain, no distress, well-nourished. HEAD: normocephalic, atraumatic. EYES: PERRLA/EOMI, conjunctivae clear. NOSE: Normal no drainage EARS:TMS clear with good light reflex. THROAT: Pharynx clear, no exudate. NECK: Supple. No adenopathy, no masses. RESPIRATORY: Airway patent, respirations nonlabored. Clear to auscultation bilaterally, no rales, rhonchi, wheezing. CARDIOVASCULAR: Regular rate and rhythm without murmurs rubs or gallops. ABDOMINAL: Soft, nontender, nondistended, normal bowel sounds MUSCULOSKELETAL: Moves all extremities. Strength/ROM intact, No edema, No calf tenderness. NEURO: Alert. Cranial nerves II through XII intact. Good gait. Good coordination SKIN: Warm, dry. Normal Color Course Course Emergency Course: Patient was transferred for inpatient psych Vital Signs Vital signs: Vital Signs Temperature 97.4 F L 12/15/23 07:44 Pulse Rate 80 12/15/23 07:44 Respiratory Rate 18 12/15/23 07:44 Blood Pressure 142/83 H 12/15/23 07:44 Pulse Oximetry 100 12/15/23 07:44 Oxygen Delivery Room Air 12/15/23 07:44 Temperature 97.4 F L 12/15/23 07:44 Pulse Rate 45 L 12/15/23 16:16 Respiratory Rate 15 12/15/23 16:16 Blood Pressure 122/81 12/15/23 16:16 Pulse Oximetry 99 12/15/23 16:16 Oxygen Delivery Room Air 12/15/23 07:44 Medical Decision Making MDM Narrative Medical decision making narrative: 33-year-old male presents emergency department for evaluation nausea vomiting with blood and has emesis. EKG does show some ST elevation but patient does have history of chronic pericarditis. Patient is medically cleared. Patient is medically cleared to be evaluated by the crisis counselor and patient is stable for transport and inpatient psych hospitalization as needed. Vital Signs Vital Signs: Vital Signs Temperature 97.4 F L 12/15/23 07:44 Pulse Rate 80 12/15/23 07:44 Respiratory Rate 18 12/15/23 07:44 Blood Pressure 142/83 H 12/15/23 07:44 Pulse Oximetry 100 12/15/23 07:44 Oxygen Delivery Room Air 12/15/23 07:44 Temperature 97.4 F L 12/15/23 07:44 Pulse Rate 45 L 12/15/23 16:16 Respiratory Rate 15 12/15/23 16:16 Blood Pressure 122/81 12/15/23 16:16 Pulse Oximetry 99 12/15/23 16:16 Oxygen Delivery Room Air 12/15/23 07:44 Lab Data 12/15/23 08:05 12/15/23 08:05
[2023-12-15 08:22] LABS: Basophils Percent Auto 0.3 % (0.2-1.2); Eosinophils Absolute Auto 0.1 K/mm3 (0-0.3); Hematocrit 40.8 % (42.0-52.0); Hemoglobin 12.4 g/dL (14.0-18.0); Immature Granulocyte Absolute 0.08 K/mm3 (0.00-0.031); Immature Granulocyte Percent A 1.4 % (0-0.5); Lymphocytes Absolute Auto 1.14 K/mm3 (0.9-3.2); Lymphocytes Percent Auto 19.3 % (18.3-44.2); Mean Corpuscular HGB Conc 30.4 g/dl (32-36); Mean Corpuscular Hemoglobin 26.6 pg (26-34); Mean Corpuscular Volume 87.4 fl (80-100); Mean Platelet Volume 9.3 fl (7.4-10.4); Monocytes Absolute Auto 0.6 K/mm3 (0.1-0.6); Monocytes Percent Auto 10.5 % (2.6-8.5); Neutrophils Percent Auto 67.5 % (45.5-73.1); Platelet Count Result 285 k/mm3 (150-375); Red Blood Count 4.67 M/mm3 (4.6-6.20); Red Cell Distribution Width 15.7 % (11.5-14.5); White Blood Count 5.9 K/mm3 (4.5-10.0)
[2023-12-15 08:25] LABS: Prothrombin Time 14.1 Seconds (11.1-14.7)
[2023-12-15 08:26] LABS: Partial Thromboplastin Time 26.4 Seconds (22.3-36.8)
--- NOTE | 2023-12-15 08:30 | ECG_ITS ---
SEE SCANNED COPY FOR CONFIRMED REPORT MTDD
[2023-12-15] MEDS: HALOPERIDOL LACTATE 5 MG/ML VIAL IM (08:40)
[2023-12-15] MEDS: SODIUM CHLORIDE 0.9% IV 1,000 ML 999 ML IV CONT (08:40)
[2023-12-15 08:45] LABS: Albumin Level 4.9 g/dL (3.5-5.1); Alkaline Phosphatase 61 U/L (38-126); Anion Gap 10 mmol/L (4-12); Aspartate Amino Transferase 28 U/L (17-59); Bilirubin,Total 0.6 mg/dL (0.2-1.3); Blood Urea Nitrogen 12 mg/dL (9-20); Calcium 9.3 mg/dL (8.4-10.2); Carbon Dioxide 25 mmol/L (22-30); Chloride 106 mmol/L (98-107); Estimated CRCL calculation 93 ml/min; Estimated Glomerular Filt Rate > 60; Glucose 139 mg/dL (65-110); Lipase 83 U/L (23-300); Potassium 3.3 mmol/L (3.4-5.0); Sodium 141 mmol/L (137-145)
[2023-12-15 09:12] LABS: Alanine Aminotransferase 32 U/L (6-50)
[2023-12-15 09:18] LABS: Amphetamine Screen Urine Negative (Negative); Barbiturate Screen Urine Negative (Negative); Benzodiazepines Screen Urine Negative (Negative); Cannabinoid Screen Urine Positive (Negative); Cocaine Screen Urine Negative (Negative); Methadone Screen Urine Negative (Negative); Opiate Screen Urine Negative (Negative); Phencyclidine Screen Urine Negative (Negative)
[2023-12-15 09:26] LABS: Appearance Urine Clear (Clear); Bacteria Urine None Seen /hpf; Bilirubin Urine Negative (Negative); Blood Urine Non-Hemolyzed Trace (Negative); Color Urine Yellow (Yellow); Glucose Urine UA Negative (Negative); Ketones Urine Trace mg/dL (Negative); Leukocyte Esterase Ur Negative LEU/UL (Negative); Mucus Urine Present /lpf; Need Manual Microscopic Reviewed; Nitrate Urine Negative (Negative); Non Pathogenic Casts 0-2; Protein Urine 1+ mg/dL (Negative); Squamous Epithelial Cell Urine Occasional /hpf (Few); pH Urine 5.5 (5.0-9.0)
[2023-12-15 09:34] LABS: Add Urine Microscopic? YES; Specific Grav Ur 1.032 (1.001-1.035)
[2023-12-15 09:58] LABS: Thyroid Stimulating Hormone Reflex 0.207 uIU/mL (0.465-4.68)
[2023-12-15 10:42] LABS: Free T4 Free Thyroxine Reflex 1.44 ng/dL (0.78-2.19)
[2023-12-15 11:02] LABS: Ethanol < 10 mg/dL (<10)
[2023-12-15 11:03] LABS: SARS-CoV-2 RNA PCR Negative (Negative)
[2023-12-15 12:17] LABS: Total Triiodothyronine (T3) 1.45 NG/ML (0.97-1.69)
--- NOTE | 2023-12-15 13:25 | PC.NURSE ---
Leora, financial administrator from [facility] - called to get report and will present pt to a doctor there.
--- NOTE | 2023-12-15 16:44 | PC.NURSE ---
Precautionary dinner tray ordered
== END 2023-12-15 18:38 ==
PROVIDERS: Emergency Provider Emergency Medicine
DX: R10.9 Unspecified abdominal pain (principal); F32.A Depression, unspecified; Z20.822 Contact with and (suspected) exposure to COVID-19
CPT/HCPCS: 36415; 80053; 80307; 81001; 83690; 84439; 84443; 84480; 85025; 85610; 85730; 87086; 87635; 93005; 96360; 96361; 96372; 99285; J1630; J7030

== ENCOUNTER 2024-03-07 06:26 | Emergency (ER) | payer OTHER, SELFPAY ==
--- NOTE | ~2024-03-07 | XR_ITS ---
Clinical Indication: Chest pain PA and lateral views of the chest: Comparison: 11/20/2023 Findings: The lungs are clear, without evidence of focal consolidation or pleural effusion. Cardiome diastinal silhouette is within normal limits. Bones and soft tissues are unremarkable. Impression: Normal chest. Reviewed, dictated and finalized at location . Impression: Normal chest.
--- NOTE | 2024-03-07 06:26 | ECG_ITS ---
Test Date: 2024-03-07 06:33:59 Measurements Intervals [place] Rate: 54 P: 15 [place]: 144 QRS: 80 QRSD: 117 T: 23 QT: 379 QTc: 359 Interpretive Statements SINUS BRADYCARDIA POSSIBLE LEFT VENTRICULAR HYPERTROPHY [VOLTAGE CRITERIA PLUS LAE OR QRS WIDENING] ST ELEVATIONS NOTED IN INFEROLATERAL LEADS, WHICH WERE ALSO NOTED ON PREVIOUS ECGS Electronically Signed On 03-07-2024 14:47:33 CDT by Pam Jesus M.D.
[2024-03-07 06:29] VITALS: BP 131/93; PULSE 56; RESP 12; TEMP 36.6; O2SAT 100
[2024-03-07 06:48] LABS: Basophils Percent Auto 0.4 % (0.2-1.2); Eosinophils Absolute Auto 0.2 K/mm3 (0-0.3); Eosinophils Percent Auto 3.3 % (0-4.4); Hematocrit 38.7 % (42.0-52.0); Immature Granulocyte Absolute 0.01 K/mm3 (0.00-0.031); Immature Granulocyte Percent A 0.2 % (0-0.5); Lymphocytes Absolute Auto 1.19 K/mm3 (0.9-3.2); Lymphocytes Percent Auto 26.6 % (18.3-44.2); Mean Corpuscular Volume 87.2 fl (80-100); Mean Platelet Volume 9.8 fl (7.4-10.4); Monocytes Absolute Auto 0.5 K/mm3 (0.1-0.6); Monocytes Percent Auto 10.7 % (2.6-8.5); Neutrophils Absolute Auto 2.6 K/mm3 (1.3-6.7); Neutrophils Percent Auto 58.8 % (45.5-73.1); Platelet Count Result 259 k/mm3 (150-375); Red Blood Count 4.44 M/mm3 (4.6-6.20); Red Cell Distribution Width 15.6 % (11.5-14.5); White Blood Count 4.5 K/mm3 (4.5-10.0)
[2024-03-07 06:58] LABS: INR 1.1; Prothrombin Time 14.2 Seconds (11.1-14.7)
[2024-03-07 06:59] LABS: Partial Thromboplastin Time 27.8 Seconds (22.3-36.8)
--- NOTE | 2024-03-07 07:10 | ED.CHESTPAIN ---
HPI - Chest Pain General Chief Complaint: Chest Pain Stated Complaint: chest pain Time Seen by Provider: 03/07/24 06:55 History of Present Illness HPI narrative: 34-year-old male present to the emergency department for evaluation for chest pain. Patient does have a longstanding history of chronic pericarditis. Patient states he has chest pain approximately every few months and his last episode of chest pain was about 2 months ago. Patient states he woke up with chest pain. Patient does have some associated shortness of breath with it. Patient denies any recent coughs colds or fevers, nausea vomiting diarrhea or falls or injuries. Related Data Home Medications Medication Instructions Recorded Confirmed clonazepam 0.5 mg tablet 0.5 mg PO PRN PRN Anxiety 12/15/23 12/15/23 cyanocobalamin (vitamin B-12) 10,000 mcg PO DAILY 12/15/23 12/15/23 1,000 mcg tablet doxycycline hyclate 100 mg capsule 100 mg PO DAILY 12/15/23 12/15/23 ferrous sulfate 325 mg (65 mg 325 mg PO DAILY 12/15/23 12/15/23 iron) tablet (FeroSul) Allergies Allergy/AdvReac Type Severity Reaction Status Date / Time No Known Allergies Allergy Verified 11/20/23 15:48 Review of Systems Review of Systems: All systems reviewed & are unremarkable except as noted in HPI and below PMFSH Past Medical History Medical History Depression Pericarditis Surgical History Surgical History No pertinent past surgical history Social History Social History Substance use type: marijuana Exam Narrative: APPEARANCE: Well appearing, no pain, no distress, well-nourished. HEAD: normocephalic, atraumatic. EYES: PERRLA/EOMI, conjunctivae clear. NOSE: Normal no drainage EARS:TMS clear with good light reflex. THROAT: Pharynx clear, no exudate. NECK: Supple. No adenopathy, no masses. RESPIRATORY: Airway patent, respirations nonlabored. Clear to auscultation bilaterally, no rales, rhonchi, wheezing. CARDIOVASCULAR: Regular rate and rhythm without murmurs rubs or gallops. ABDOMINAL: Soft, nontender, nondistended, normal bowel sounds MUSCULOSKELETAL: Moves all extremities. Strength/ROM intact, No edema, No calf tenderness. NEURO: Alert. Cranial nerves II through XII intact. Grossly intact SKIN: Warm, dry. Normal Color Course Course Emergency Course: Patient did feel improved with treatment. Vital Signs Vital signs: Vital Signs Temperature 98 F 03/07/24 06:29 Pulse Rate 56 L 03/07/24 06:29 Respiratory Rate 12 03/07/24 06:29 Blood Pressure 131/93 H 03/07/24 06:29 Pulse Oximetry 100 03/07/24 06:29 Temperature 97.5 F L 03/07/24 11:10 Pulse Rate 67 03/07/24 11:10 Respiratory Rate 15 03/07/24 11:10 Blood Pressure 131/78 03/07/24 11:10 Pulse Oximetry 100 03/07/24 11:10 MDM - Chest Pain MDM Narrative Medical decision making narrative: 34-year-old male present to the emergency department for evaluation of intermittent chest pain. Patient is afebrile with no leukocytosis and hemoglobin of 12. Patient had negative serial EKGs and negative serial troponins. Patient states pain was improved. Patient was updated the results of his workup patient was encouraged of close follow-up with primary care physician. All questions concerns were addressed. Differential Diagnosis Differential diagnosis: Likely fracture of rib, stable angina, unstable angina pectoris, atypical chest pain, chest pain and biliary colic Lab Data Attestation: I reviewed the patient's lab results. 03/07/24 06:42 03/07/24 06:42 Labs: Lab Results 03/07/24 03/07/24 Range/Units 06:42 09:45 WBC 4.5 (4.5-10.0) K/mm3 RBC 4.44 L (4.6-6.20) M/mm3 Hgb 12.0 L (14.0-18.0) g/dL Hct 38.7 L (42.0-52.0) % MCV 87.2 (80-100) fl MCH 27.0 (26-34) p
[2024-03-07 07:11] VITALS: BP 111/70; PULSE 56; RESP 15; O2SAT 100
[2024-03-07 07:12] VITALS: PULSE 55
[2024-03-07 07:12] LABS: Alanine Aminotransferase 17 U/L (6-50); Albumin Level 4.3 g/dL (3.5-5.1); Alkaline Phosphatase 57 U/L (38-126); Anion Gap 9 mmol/L (4-12); Aspartate Amino Transferase 24 U/L (17-59); Bilirubin,Total 0.4 mg/dL (0.2-1.3); Blood Urea Nitrogen 9 mg/dL (9-20); Carbon Dioxide 27 mmol/L (22-30); Chloride 102 mmol/L (98-107); Estimated CRCL calculation 87 ml/min; Estimated Glomerular Filt Rate > 60; Glucose 102 mg/dL (65-110); Lipase 73 U/L (23-300); Potassium 3.5 mmol/L (3.4-5.0); Sodium 138 mmol/L (137-145)
[2024-03-07] MEDS: ASPIRIN 81 MG CHEWABLE TABLET 324 MG PO (07:14)
[2024-03-07 07:23] LABS: Troponin I < 0.012 ng/mL (0.000-0.034)
[2024-03-07] MEDS: KETOROLAC 15 MG/ML VIAL (*BKC) IV PUSH (08:55)
[2024-03-07] MEDS: PANTOPRAZOLE SODIUM IV 40 MG VIAL IV PUSH (08:56)
[2024-03-07 08:58] VITALS: BP 118/79; PULSE 53; RESP 16; O2SAT 99
--- NOTE | 2024-03-07 09:37 | ECG_ITS ---
Test Date: 2024-03-07 09:58:45 Measurements Intervals [place] Rate: 50 P: 16 OR: 148 QRS: 80 QRSD: 113 T: 49 QT: 396 QTc: 361 Interpretive Statements SINUS BRADYCARDIA POSSIBLE LEFT VENTRICULAR HYPERTROPHY [VOLTAGE CRITERIA PLUS LAE OR QRS WIDENING] ST ELEVATIONS NOTED IN INFEROLATERAL LEADS, WHICH WERE ALSO NOTED ON PREVIOUS ECGS Compared to ECG 03/07/2024 06:33:59 NO SIGNIFICANT CHANGES Electronically Signed On 03-07-2024 14:50:12 CDT by Pam Jesus M.D.
[2024-03-07 10:14] LABS: Troponin I < 0.012 ng/mL (0.000-0.034)
[2024-03-07 11:10] VITALS: BP 131/78; PULSE 67; RESP 15; TEMP 36.4; O2SAT 100
== END 2024-03-07 11:11 | disposition home or self-care (01) ==
PROVIDERS: Emergency Medicine; Emergency Provider Emergency Medicine
DX: R07.9 Chest pain, unspecified (principal); I31.9 Disease of pericardium, unspecified; R00.1 Bradycardia, unspecified; R94.31 Abnormal electrocardiogram [ECG] [EKG]
CPT/HCPCS: 36415; 71046; 80053; 83690; 84484; 85025; 85610; 85730; 93005; 96374; 96375; 99284; A9270; J1885; J2470

== ENCOUNTER 2024-10-09 21:37 | Emergency (ER) | payer OTHER, SELFPAY ==
[2024-10-09 21:41] VITALS: BP 133/82; PULSE 56; RESP 18; TEMP 36.6; O2SAT 95
--- OUTSIDE RECORDS SUMMARY | 2024-10-09 21:41 | XMS_ITS | Referral Summary ---
Author Organization [facility] Address [address] [place] [address] [place] [address] Care Team Providers Care Outpatient Clerk Name Role Phone None, Physician Primary Care Provider Unavailabl e Source Comments [facility],non-owned Affiliates and Associated Physician Practices is amultiple site organization consisting of ambulatory clinics and hospital sitesin [place], [place], [place] and [place]. This disclosure is being madepursuant to the Care Everywhere program and may not contain all information available regarding this patient. Last updated 18.[facility] Encounters Date Type Department Care Team Description 09/17/2024 Travel 09/17/2024 1:40 AM HEALTH ADMINISTRATOR - 09/17/2024 4:17 AM [facility] Emergency [facility] EMERGENCY DEPARTMENT [address] [place] [phone] Kyree Rossi MD Acute idiopathic pericarditis (HCC) (Primary Dx); Chest pain, unspecified type; Cough, unspecified type Discharge Disposition: Home or Self Care from Last 3 Months Allergies No known active allergies Medications * Be aware that medications may not be up to date on this document. Alwaysverify current medications with the patient. Medication Sig Dispensed Refills Start Date End Date Status mirtazapine (Remeron) 7.5 MG tabletIndications:M ajor Depressive Disorder Take 1 (one) tablet by mouth at bedtime for 30 days Reasons: Major Depressive Disorder 30 tablet 08/10/2023 Active pantoprazole EC (Protonix) 40 MG tabletIndications:H eartburn Take 1 (one) tablet by mouth once daily for 30 days Reasons: Heartburn 30 tablet 08/11/2023 Active colchicine 0.6 MG tablet Take 2 (two) tablets by mouth once daily 60 tablet 09/17/2024 Active Active Problems Problem Noted Date Diagnosed Date Suicidal ideation 08/29/2023 Chronic pericarditis, unspec ified complication status, unspecified type 08/29/2023 Recurrent major depressive d isorder, remission status unspecified 08/29/2023 Encounter for medication monitoring 08/29/2023 Mood disorder 08/16/2023 Chronic pericarditis by hx 08/07/2023 Severe episode of recurrent major depressive disorder, without psychotic features 08/06/2023 ST elevation myocardial infarction (STEMI) 06/02 Overview (06/02/2022): Added automatically from request for surgery [id number] ST elevation myocardial infa rction (STEMI), unspecified artery 06/02/2022 Chest pain due to myocardial ischemia, unspecified ischemic chest pain type 06/02/2022 Immunizations Name Administration Dates Next Due DTP, HISTORIC VACCINE 04/04/1996,08/20/1992,06/02,04/30/1992 HEP A PEDS 2 DOSE 08/26/2001 HEP B VACCINE, PED/ADOL 09/21/2000,04/04/1996 HIB VACCINE 08/20/1992,06/20/1992,04/30/1992 MMR VACCINE 04/04/1996,06/20/1992 POLIO OPV 04/04/1996,08/20/1992,06/20/1992 ,04/30/1992 Social History Tobacco Use Types Packs/Day Years Used Date Smoking Tobacco: Never Passive Smoke Exposure: Never Smokeless Tobacco: Never Tobacco Cessation:Counseling Given: Not Answered Alcohol Use Standard Drinks/Week Comments Never 0 (1 standard drink = 0.6 oz pur e alcohol) AUDIT-C Answer Date Recorded Q1: How often do you have a drink containing alcohol? Never 08/28/2023 Q2: How many drinks containi ng alcohol do you have on a typical day when you are drinking? Patient does not drink Q3: How often do you have si x or more drinks on one occasion? Never 08/28/2023 Overall Financial Resource Strain (CARDIA) Answe r Date Recorded How hard is it for you to pa y for the very basics like food, housing, medical care, and heating? Hard 08/07/2023 [facility] - Occupational Stress Questionnaire Answer Date Recorded Do you feel stress - tense, restless, nervous, or anxious, or unable to sleep at night because your mind is troubled all the time - these days? Rather much 08/07/2023 Hunger Vital Sign Answer Date Recorded Within the past 12 months, y ou worried that your food would run out before you got the money to buy more. Sometimes true Within the past 12 months, t he food you bought just didn't last and you didn't have money to get more. Often true 01/2024 PRAPARE - Transportation Answer Date Re corded In the past 12 months, has l ack of transportation kept you from medical appointments or from getting medications? Yes 01/2024 In the past 12 months, has l ack of transportation kept you from meetings, work, or from getting things needed for daily living? Yes 08/07/2023 Housing Stability Vital Sign Answer Pavel e Recorded In the last 12 months, was t here a time when you were not able to pay the mortgage or rent on time? Yes 08/07/2023 In the last 12 months, how many places have you lived? 1 08/07/2023 In the last 12 months, was t here a time when you did not have a steady place to sleep or slept in a long-term (including now)? No 08/07/2023 Housing Stability Vital Sign Answer Pavel e Recorded In the last 12 months, was t here a time when you were not able to pay the mortgage or rent on time? Yes 08/07/2023 Number of Times Moved in the Last Year Not on fi le 08/07/2023 Homeless in the Last Year Not on file 2023 Sex and Gender Information Value Date Recorded Sex Assigned at Not on file Gender Identity Not on file Sexual Orientation Not on file Last Filed Vital Signs Vital Sign Reading Time Taken Comments Blood Pressure 141/85 09/17/2024 4:00 AM HEALTH ADMINISTRATOR Pulse 87 09/17/2024 4:00 AM HEALTH ADMINISTRATOR Temperature 36.9 C (98.5 F) 09/17/2024 1:48 AM HEALTH ADMINISTRATOR Respiratory Rate 13 09/17/2024 4:02 AM HEALTH ADMINISTRATOR Oxygen Saturation 96% 09/17/2024 4:00 AM HEALTH ADMINISTRATOR Inhaled Oxygen Concentration - - Weight 72.6 kg (160 lb) 09/17/2024 1:45 AM HEALTH ADMINISTRATOR Height 180.3 cm (5' 11 ) 09/17/2024 1:45 AM HEALTH ADMINISTRATOR Body Mass Index 22.32 09/17/2024 1:45 AM HEALTH ADMINISTRATOR Functional Status Functional Status Response Date of Assess ment Is person deaf or have serious hearing difficult y? No 08/10/2023 Is person blind or have serious difficulty seein g? No 08/10/2023 Does person have serious dif ficulty walking/climbing stairs? No 08/10/2023 Does person have difficulty dressing/bathing? No 08/10/2023 Does person have difficulty doing errands alone? No 08/10/2023 Cognitive Status Response Date of Assessm ent Does person have difficulty concentrating/remembering/making decisions? No 08/10/2023 Plan of Treatment Not on file Procedures Procedure Name Priority Date/Time Associated Diagnosis Comments CARDIAC EKG ORDER 09/19/2024 1:4 4 PM HEALTH ADMINISTRATOR BLOOD TYPE VERIFICATION STAT 09/17/2024 2:53 AM HEALTH ADMINISTRATOR TROPONIN-I HIGH SENSITIVE REFLEX 1HOUR Timed 09/17/2024 2:53 AM HEALTH ADMINISTRATOR XR CHEST 2VW STAT 09/17/2024 2:07 AM HEALTH ADMINISTRATOR Chest pain, unspecified type SARS-COV-2 (COVID-19)+INFLU A+B PCR RAPID STAT 09/17/2024 2:02 AM HEALTH ADMINISTRATOR TYPE + SCREEN PANEL STAT 09/17/2024 1 :52 AM HEALTH ADMINISTRATOR B-TYPE NATRIURETIC PEPTIDE STAT 09/17/2024 1:52 AM HEALTH ADMINISTRATOR TROPONIN-I HIGH SENSITIVE BASELINE + 1HR STAT 09/17/2024 1:52 AM HEALTH ADMINISTRATOR PT-INR SLH STAT 09/17/2024 1:52 AM HEALTH ADMINISTRATOR MAGNESIUM BLOOD STAT 09/17/2024 1:52 AM HEALTH ADMINISTRATOR COMPREHENSIVE METABOLIC PANEL STAT 09/17/2024 1:52 AM HEALTH ADMINISTRATOR CBC W AUTO DIFFERENTIAL STAT 09/17/2024 1:52 AM HEALTH ADMINISTRATOR EKG 12-LEAD STAT 09/17/2024 1:43 AM HEALTH ADMINISTRATOR Chest pain, unspecified type from Last 3 Months Results * CARDIAC EKG ORDER (09/19/2024 1:44 PM HEALTH ADMINISTRATOR) Narrative 09/19/2024 1:44 PM HEALTH ADMINISTRATOR Ordered by an unspecified provider. Scanned Document CARDIAC SERVICES ORD ERABLES * TROPONIN-I HIGH SENSITIVE REFLEX 1HOUR (09/17/2024 2:53 AM HEALTH ADMINISTRATOR) [facility] Troponin I High Sensitive 9 <=35 ng/L 09/17/2024 3:38 AM HEALTH ADMINISTRATOR [facility] [place] Troponin I HS 0 <6 ng/L 09/17/2024 3:38 AM HEALTH ADMINISTRATOR [facility] Blood BLOOD SPECIMEN / Unknown Venipuncture / Unknown 09/17/2024 2:53 AM HEALTH ADMINISTRATOR 09/17/2024 2:59 AM HEALTH ADMINISTRATOR Kyree Rossi MD LAB - CHEMISTRY CECIL SANTOS [facility] [address] [place] [phone], [facility] [phone] * BLOOD TYPE VERIFICATION (09/17/2024 2:53 AM HEALTH ADMINISTRATOR) [facility] ABO Rh A POS 09/17/2024 3:2 2 AM HEALTH ADMINISTRATOR [facility] BLOOD BANK LAB Blood Bank BLOOD SPECIMEN / Unknown Venipuncture / Unknown 09/17/2024 2:53 AM HEALTH ADMINISTRATOR 09/17/2024 3:00 AM HEALTH ADMINISTRATOR Kyree Rossi MD LAB - BLOOD BANK ORD ERATAMIKA [facility] BLOOD BANK LAB [address] [place] [phone], [place] [phone] * XR CHEST 2VW (09/17/2024 2:07 AM HEALTH ADMINISTRATOR) Anatomical Region Laterality Modality Chest Digital Radiogra phy 09/17/2024 2:08 AM HEALTH ADMINISTRATOR Narrative 09/17/2024 7:55 AM HEALTH ADMINISTRATOR PROCEDURE: XR CHEST 2VW, DATE/TIME OF EXAM: 09/17/2024 2:08 AM, LOCATION [facility] INDICATION: R07.9: Chest pain, unspecified type ADDITIONAL CLINICAL INFORMATION: Ordering Provider Reason For Exam: pna vs other Technologist Note: Additional: COMPARISON: None. FINDINGS/IMPRESSION: No focal consolidation, pleural effusion, or pneumothorax. The cardiomediastinal silhouette is normal. No acute osseous abnormality. > Dictated by Acacia Leal MD (residential gas heat technician) Mandi Osman MD have personally reviewed and interpreted this examination/study. > Interpreting Provider: Mandi Mccain MD on 09/17/2024 7:55 AM Procedure Note Mandi Mccain MD - 09/17/2024 PROCEDURE: XR CHEST 2VW, DATE/TIME OF EXAM: 09/17/2024 2:08 AM, LOCATION [facility] INDICATION: R07.9: Chest pain, unspecified type ADDITIONAL CLINICAL INFORMATION: Ordering Provider Reason For Exam: pna vs other Technologist Note: Additional: COMPARISON: None. FINDINGS/IMPRESSION: No focal consolidation, pleural effusion, or pneumothorax. The cardiomediastinal silhouette is normal. No acute osseousabnormality. > Dictated by Acacia Leal MD (residential gas heat technician) Mandi Osman MD have personally reviewed and interpreted this examination/study. > Interpreting Provider: Mandi Mccain MD on 09/17/2024 7:55 AM Kyree Rossi MD DIAGNOSTIC IMAGING O RDERABLES * SARS-COV-2 (COVID-19)+INFLU A+B PCR RAPID (09/17/2024 2:02 AM HEALTH ADMINISTRATOR) COVID-19 PCR Not detected Not detected 09/17/19 2:45 AM HEALTH ADMINISTRATOR [facility] Influenza A Rapid ROSALIND Not Detected Not Detected 09/17/2024 2:45 AM HEALTH ADMINISTRATOR [facility] Influenza B ROSALIND Rapid Not Detected Not Detected 09/17/2024 2:45 AM HEALTH ADMINISTRATOR [facility] Microbiology SPECIMEN FROM NASOPHARYNGEAL STRUCTURE / Unknown Collection / Unknown 09/17/2024 2:02 AM HEALTH ADMINISTRATOR 09/17/2024 2:05 AM HEALTH ADMINISTRATOR Narrative [facility] - 09/17/2024 2:45 AM HEALTH ADMINISTRATOR Influenza assay performed by Nucleic Acid Amplification. Results do not exclude the possibility of a mixed viral infection. NOTE: Detecting and identifying specific viral nucleic acids from individuals exhibiting signs and symptoms of respiratory infection aids in the diagnosis of respiratory infection, if used in conjunction with other clinical and laboratory findings. The results of this test should not be used as the sole basis for diagnosis, treatment, or patient management decisions. This nucleic acid amplification assay performance was validated by [facility]. This test has been authorized by the Food and Drug administration (FDA)under an Emergency Use Authorization (EUA). This test has been validated in accordance with the FDA's guidance document Policy for Diagnostic Testing in Laboratories Certified to perform High Complexity Testing under CLIA prior to Emergency Use Authorization for Coronavirus Disease-2019 during the Public Health Emergency issued on September 30, 2019. FDA independent review of this validation is pending. This test is only authorized for the duration of time the declaration that circumstances exist justifying the authorization of emergency use of in vitro diagnostic tests for detection of SARS-CoV-2 virus and/or diagnosis of COVID-19 infection under section 564(b)(1) of the Act, 21 U.S.C 360bbb-3 (b)(1), unless the authorization is terminated or revoked sooner. Fact Sheets for this EUA assay are available upon request. Kyree Rossi MD LAB - MICROBIOLOGY O RDERABLES [facility] [address] [place] [address], [facility] [phone] * PT-INR [facility] (09/17/2024 1:52 AM HEALTH ADMINISTRATOR) PT 13.3 12.1 - 14.8 Seconds 09/17/2024 2:18 AM [facility] INR 1.0 See Comment 09/17/2024 2:18 AM [facility] Comment:The suggested therap eutic range for standard coumadin (warfarin) therapy is an INR of 2.0-3.0. For high-risk patients (Mechanical Mitral Valve Prosthesis, etc.), the suggested prophylactic therapeutic range is an INR of 2.5-3.5. Blood BLOOD SPECIMEN / Unknown Venipuncture / Unknown 09/17/2024 1:52 AM HEALTH ADMINISTRATOR 09/17/2024 1:57 AM HEALTH ADMINISTRATOR Kyree Rossi MD LAB - COAGULATION OR DERABLES Performing Organization Address [facility]/ZIP Co de Phone Number [address] [address], [facility] [phone] * TROPONIN-I HIGH SENSITIVE BASELINE + 1HR (09/17/2024 1:52 AM HEALTH ADMINISTRATOR) Troponin I High Sensitive 9 <=35 ng/L 09/17/2024 2:28 AM [facility] Blood BLOOD SPECIMEN / Unknown Venipuncture / Unknown 09/17/2024 1:52 AM HEALTH ADMINISTRATOR 09/17/2024 1:57 AM HEALTH ADMINISTRATOR Kyree Rossi MD LAB - CHEMISTRY ORDE RABLES Performing Organization Address [facility] Co de Phone Number [address] [phone], [place] [phone] * TYPE + SCREEN PANEL (09/17/2024 1:52 AM HEALTH ADMINISTRATOR) Antibody Screen NEG 2:35 AM HEALTH ADMINISTRATOR [facility] BLOOD BANK LAB ABO Rh A POS 09/17/2024 2:35 AM HEALTH ADMINISTRATOR [facility] BLOOD BANK LAB Blood Bank BLOOD SPECIMEN / Unknown Venipuncture / Unknown 09/17/2024 1:52 AM HEALTH ADMINISTRATOR 09/17/2024 1:59 AM HEALTH ADMINISTRATOR Kyree Rossi MD LAB - BLOOD BANK ORD ERABLES Performing Organization Address [facility]/ZIP Co de Phone Number [facility] BLOOD BANK LAB [address] [place] [address], [facility] [phone] * (ABNORMAL) CBC W AUTO DIFFERENTIAL (09/17/2024 1:52 AM [facility]) [facility] Signature WBC 5.1 4.0 - 10.7 x10E9/L 09/17/2024 2:01 AM [facility] RBC Count 4.62 4.30 - 5.80 x10E12/L 09/17/2024 2:01 AM [facility] Hemoglobin 13.2(L) 13.3 - 17.5 g/dL 09/17/2024 2:01 AM [facility] Hematocrit 39.2 38.7 - 51.1 % 09/17/2024 2:01 AM [facility] MCV 84.8 80.0 - 98.0 fL 09/17/2024 2:01 AM [facility] MCH 28.6 26.7 - 33.6 pg 09/17/2024 2:01 AM [facility] MCHC 33.7 31.7 - 36.3 g/dL 09/17/2024 2:01 AM [facility] RDW-CV 13.2 11.3 - 14.8 % 09/17/2024 2:01 AM [facility] Platelet Count 240 150 - 420 x10E9/L 09/17/2024 2:01 AM [facility] MPV 9.6 7.8 - 11.4 fL 09/17/2024 2:01 AM [facility] Neutrophil % 69.4 41.0 - 74.0 % 09/17/2024 2:01 AM [facility] Lymphocyte % 18.1 17.0 - 47.0 % 09/17/2024 2:01 AM [facility] Monocyte % 10.5 3.0 - 11.0 % 09/17/2024 2:01 AM [facility] Eosinophil % 1.4 0.0 - 7.0 % 09/17/2024 2:01 AM [facility] Basophil % 0.4 0.0 - 1.6 % 09/17/2024 2:01 AM [facility] Immature Granulocytes % 0.2 0.0 - 1.0 % 09/17/2024 2:01 AM [facility] Neutrophil Absolute 3.56 1.60 - 7.50 x10E9/L 09/17/2024 2:01 AM [facility] Lymphocyte Absolute 0.93(L) 1.00 - 4.40 x10E9/L 09/17/2024 2:01 AM [facility] Monocyte Absolute 0.54 0.15 - 1.00 x10E9/L 09/17/2024 2:01 AM [facility] Eosinophil Absolute 0.07 0.00 - 0.60 x10E9/L 09/17/2024 2:01 AM [facility] Basophil Absolute 0.02 0.00 - 0.13 x10E9/L 09/17/2024 2:01 AM [facility] Blood BLOOD SPECIMEN / Unknown Venipuncture / Unknown 09/17/2024 1:52 AM [facility] 09/17/2024 1:56 AM [facility] Kyree Rossi MD LAB - HEMATOLOGY ORD ERABLES [facility] [address] [place] [address] [email or web address]] [phone] * B-TYPE NATRIURETIC PEPTIDE (09/17/2024 1:52 AM [facility]) BNP <10 <100 pg/mL 09/17/2024 2:43 AM [facility] Comment: A decision threshold of 100 pg/mL has been demonstrated to provide the maximal combination of sensitivity, specificity and predictive value for the diagnosis of congestive heart failure (CHF). Virtually all patients with no evidence of CHF have BNP values less than 100 pg/mL. A BNP value greater than 100 pg/mL is consistent with the diagnosis of CHF in the appropriate clinical setting. In a study of 693 patients (male and female) with diagnosed CHF, the following values were determined based on the NYHA functional classification system: NYHA Functional Class Mean Valule (pg/mL) % >100 pg/mL I 320 58.1 II 432 73.0 III 656 79.0 IV 1635 98.3 Blood BLOOD SPECIMEN / Unknown Venipuncture / Unknown 09/17/2024 1:52 AM HEALTH ADMINISTRATOR 09/17/2024 2:09 AM HEALTH ADMINISTRATOR Kyree Rossi MD LAB - CHEMISTRY CECIL SANTOS [facility] [address] [place] [address], [facility] [phone] * (ABNORMAL) COMPREHENSIVE METABOLIC PANEL (09/17/2024 1:52 AM HEALTH ADMINISTRATOR) BUN 8 7 - 26 mg/dL 09/17/2024 2:24 AM [facility] Creatinine 1.03 0.71 - 1.16 mg/dL 09/17/2024 2:24 AM [facility] Sodium 142 136 - 145 mmol/L 09/17/2024 2:24 AM [facility] Potassium 3.8 3.5 - 4.5 mmol/L 09/17/2024 2:24 AM [facility] Chloride 110(H) 98 - 107 mmol/L 09/17/2024 2:24 AM [facility] CO2 23 22 - 29 mmol/L 09/17/2024 2:24 AM [facility] Glucose 128(H) 70 - 99 mg/dL 09/17/2024 2:24 AM [facility] Calcium 8.8 8.4 - 10.2 mg/dL 09/17/2024 2:24 AM [facility] Protein Total 7.0 6.0 - 8.3 g/dL 09/17/2024 2:24 AM [facility] Albumin 3.8 3.4 - 5.0 g/dL 09/17/2024 2:24 AM [facility] Bilirubin Total 0.3 0.2 - 1.2 mg/dL 09/17/2024 2:24 AM [facility] Alkaline Phosphatase 65 40 - 150 U/L 09/17/2024 2:24 AM [facility] ALT 35 5 - 55 U/L 09/17/2024 2:24 AM [facility] AST 29 5 - 34 U/L 09/17/2024 2:24 AM [facility] Anion Gap 9 6 - 16 09/17/2024 2:24 AM [facility] BUN/Creatinine Ratio 8 7 - 23 09/17/2024 2:24 AM [facility] Osmolality Calculated 294 275 - 295 mOsm/kg 09/17/2024 2:24 AM [facility] Albumin/Globulin Ratio 1.2 1.1 - 2.3 09/17/2024 2:24 AM [facility] eGFR by CKD-EPI >90 >=90 mL/min/1.7 3 m2 09/17/2024 2:24 AM [facility] Blood BLOOD SPECIMEN / Unknown Venipuncture / Unknown 09/17/2024 1:52 AM HEALTH ADMINISTRATOR 09/17/2024 1:57 AM HEALTH ADMINISTRATOR Kyree Rossi MD LAB - CHEMISTRY CECIL SANTOS Performing Organization Address [facility]/ZIP Co de Phone Number [address] [address], [facility] [phone] * MAGNESIUM BLOOD (09/17/2024 1:52 AM HEALTH ADMINISTRATOR) Pathologist [facility] Magnesium 1.8 1.6 - 2.6 mg/dL 09/17/2024 2:24 AM [facility] Blood BLOOD SPECIMEN / Unknown Venipuncture / Unknown 09/17/2024 1:52 AM HEALTH ADMINISTRATOR 09/17/2024 1:57 AM HEALTH ADMINISTRATOR Kyree Rossi MD LAB - CHEMISTRY CECIL SANTOS Performing Organization Address [facility]/ZIP Co de Phone Number [address] [address], [facility] [phone] * EKG 12-LEAD (09/17/2024 1:43 AM HEALTH ADMINISTRATOR) Ventricular Rate 80 BPM [facility] MUSE Atrial Rate 80 BPM [facility] MUSE P-R Interval 164 ms [facility] MUSE QRS Duration ms 116 ms [facility] MUSE Q-T Interval ms 356 ms [facility] MUSE QTC Calculation (Bezet) 410 ms [facility] MUSE Calculated P [place] 36 degrees [facility] MUSE Calculated R [place] 80 degrees [facility] MUSE Calculated T [place] 48 degrees [facility] MUSE Interpretation EKG NORMAL SINUS RHYTHM ST ELEVATION CONSIDER ANTEROLATERAL INJURY OR ACUTE INFARCT ST ELEVATION CONSIDER INFERIOR INJURY OR ACUTE INFARCT ACUTE MT / STEMI ABNORMAL ECG WHEN COMPARED WITH ECG OF 28-AUG-2023 22:14, T WAVE INVERSION NO LONGER EVIDENT IN INFERIOR LEADS NONSPECIFIC T WAVE ABNORMALITY HAS REPLACED INVERTED T WAVES IN LATERAL LEADS Confirmed by TG SHAW MD ([id number]) on 09/23/2024 7:15:26 PM [facility] MUSE 09/17/2024 1:43 AM HEALTH ADMINISTRATOR 09/23/2024 7:15 PM HEALTH ADMINISTRATOR Kyree Rossi MD ECG ORDERABLES [facility] [place] from Last 3 Months Advance Directives * Full Code (Latest Code Status on File) Date Activated Date Inactivated Comments 08/29/2023 6:12 AM 08/29/2023 1:31 PM * Full Code Date Activated Date Inactivated Comments 08/07/2023 11:38 AM 08/10/2023 3:33 PM * Full Code Date Activated Date Inactivated Comments 06/02/2022 4:30 AM 06/03/2022 4:00 PM Care Teams Outpatient Clerk Relationship Specialty Start Date End Date None, Physician PCP - General 2/16/25
--- OUTSIDE RECORDS SUMMARY | 2024-10-09 21:41 | XMS_ITS | CONTINUITY OF CARE DOCUMENT ---
Author Name ed ward Address Unknown Organization [facility] Address [address] [place] [address] Phone [phone] Care Team Providers Care Railroad Inspector Name Role Phone Cat Choudhary MD Unavailable Cat Choudhary MD Unavailable PROBLEMS Condition Status Date Provider Notes Acute idiopathic pericarditis active Haritha MTZ Specialist Cardiology examination active Garfield Lucas MD Marijuana use active Garfield Lucas MD ENCOUNTERS Date Type Provider Location Encounter Diag nosis - In-person encounter Office Visit Garfield Lucas MD [facility] Cardiology examinationMarijuana use VITAL SIGNS Date Observation Value Provider Body Mass Index (Ratio) 23.32 kg/m2 Tyshawn Lucas MD blood pressure, diastolic 65 mm[Hg] Aurora nkLogic blood pressure, systolic 124 mm[Hg] Bettina kLogic blood pressure, cuff size regular Ja rret blood pressure, diastolic 65 mm[Hg] Ja rret blood pressure, systolic 124 mm[Hg] Jar ret pulse rate 107 /min Stephan y height E&M 72 [in_i] Stephan y oxygen saturation, oximetry 95 % Stephan respiratory rate E&M 12 /min Stephan Miramontes weight E&M 172 [lb_av] Stephan Miller y ALLERGIES No Known Drug Allergies SOCIAL HISTORY Date Observation Value Provider personal history of marijuana use yes Mckennakaren Zhangmiglia ORIENTAL MEDICINE PRACTITIONER drug use no Mckenna Ventimig maureen ORIENTAL MEDICINE PRACTITIONER alcohol use no Mckenna Ventimig maureen ORIENTAL MEDICINE PRACTITIONER cigarette use yes Stephan Velasco ay smoking status Former smoker Stephan Whitt rday INSURANCE PROVIDERS Payer name Policy type / Coverage type [employer] ID [employer] MEDICA[employer] Medicaid [id number] ADVANCE DIRECTIVES Name Date DISCUSSED - NO DECISION MADE TREATMENT PLAN Date Name Performer Cardiology:cessation encouraged Mckenna Zhangmiglia [facility] Cardiology:patient h as had recurrent ER visits for chest pain suggestive of pericarditis as worse with leaning forward and deep inspiration p ain has been refractory to NSAIDs and colchincine We will do echo to look for effusion w ill plan to send order for arcalyst p atient will return in 3 mos or sooner if needed. Mckenna Zhangmiglia [facility] Date Name Complete Echo HISTORY OF PROCEDURES Procedure Date Procedure Name Provider Procedure Notes S tatus EKG Garfield Lucas MD complete d
--- OUTSIDE RECORDS SUMMARY | 2024-10-09 21:41 | XMS_ITS | Patient Health Summary ---
Author Organization [facility] [employer] Address [address] [place] [address] [place] [address] Care Team Providers Care Lei Maker Name Role Phone None, Physician Primary Care Provider Unavailabl e Note from [facility],non-owned Affiliates and Associated Physician Practices is amultiple site organization consisting of ambulatory clinics and hospital sitesin [place], [place], [place] and [place]. This disclosure is being madepursuant to the Care Everywhere program and may not contain all information available regarding this patient. Last updated 18.[facility] [employer] Allergies No known active allergies Medications * Be aware that medications may not be up to date on this document. Alwaysverify current medications with the patient. * mirtazapine (Remeron) 7.5 MG tablet(Started 08/10/2023) Take 1 (one) tablet by mouth at bedtime for 30 days Reasons: Major Depressive Disorder * pantoprazole EC (Protonix) 40 MG tablet(Started 08/11/2023) Take 1 (one) tablet by mouth once daily for 30 days Reasons: Heartburn * colchicine 0.6 MG tablet(Started 09/17/2024) Take 2 (two) tablets by mouth once daily Active Problems Problem Noted Date Diagnosed Date Suicidal ideation 08/29/2023 Chronic pericarditis, unspec ified complication status, unspecified type 08/29/2023 Recurrent major depressive d isorder, remission status unspecified 08/29/2023 Encounter for medication monitoring 08/29/2023 Mood disorder 08/16/2023 Chronic pericarditis by hx 08/07/2023 Severe episode of recurrent major depressive disorder, without psychotic features 08/06/2023 ST elevation myocardial infarction (STEMI) 06/02 ST elevation myocardial infa rction (STEMI), unspecified artery 06/02/2022 Chest pain due to myocardial ischemia, unspecified ischemic chest pain type 06/02/2022 Immunizations * DTP, HISTORIC VACCINE(Given 04/04/1996, 08/20/1992, 06/20/1992, 04/30/1992) * HEP A PEDS 2 DOSE(Given 08/26/2001) * HEP B VACCINE, PED/ADOL(Given 09/21/2000, 04/04/1996) * HIB VACCINE(Given 08/20/1992, 06/20/1992, 04/30/1992) * MMR VACCINE(Given 04/04/1996, 06/20/1992) * POLIO OPV(Given 04/04/1996, 08/20/1992, 06/20/1992, 04/30/1992) Social History Tobacco Use Types Packs/Day Years [...] housing, medical care, and heating? Hard 08/07/2023 [facility] - Occupational Stress [...] place to sleep or slept in a fdc (including now)? No 08/07/2023 Housing Stability Vital [...] Comments Blood Pressure 141/85 09/17/2024 4:00 AM USER EXPERIENCE RESEARCHER Pulse 87 09/17/2024 4:00 AM USER EXPERIENCE RESEARCHER Temperature 36.9 C (98.5 F) 09/17/2024 1:48 AM USER EXPERIENCE RESEARCHER Respiratory Rate 13 09/17/2024 4:02 AM USER EXPERIENCE RESEARCHER Oxygen Saturation 96% 09/17/2024 4:00 AM USER EXPERIENCE RESEARCHER Inhaled Oxygen Concentration - - Weight 72.6 kg (160 lb) 09/17/2024 1:45 AM USER EXPERIENCE RESEARCHER Height 180.3 cm (5' 11 ) 09/17/2024 1:45 AM USER EXPERIENCE RESEARCHER Body Mass Index 22.32 09/17/2024 1:45 AM USER EXPERIENCE RESEARCHER Procedures * CARDIAC EKG ORDER(Performed 09/19/2024) * BLOOD TYPE VERIFICATION(Performed 09/17/2024) * TROPONIN-I HIGH SENSITIVE REFLEX 1HOUR(Performed 09/17/2024) * XR CHEST 2VW(Performed 09/17/2024) Performed for Chest pain, unspecified type * SARS-COV-2 (COVID-19)+INFLU A+B PCR RAPID(Performed 09/17/2024) * TYPE + SCREEN PANEL(Performed 09/17/2024) * B-TYPE NATRIURETIC PEPTIDE(Performed 09/17/2024) * TROPONIN-I HIGH SENSITIVE BASELINE + 1HR(Performed 09/17/2024) * PT-INR SLH(Performed 09/17/2024) * MAGNESIUM BLOOD(Performed 09/17/2024) * COMPREHENSIVE METABOLIC PANEL(Performed 09/17/2024) * CBC W AUTO DIFFERENTIAL(Performed 09/17/2024) * EKG 12-LEAD(Performed 09/17/2024) Performed for Chest pain, unspecified type * CARDIAC EKG ORDER(Performed 09/27/2023) * TROPONIN-I HIGH SENSITIVE REFLEX 1HOUR(Performed 09/26/2023) * COMPREHENSIVE METABOLIC PANEL(Performed 09/26/2023) * CBC W AUTO DIFFERENTIAL(Performed 09/26/2023) * TROPONIN-I HIGH SENSITIVE BASELINE + 1HR(Performed 09/26/2023) * CARDIAC EKG ORDER(Performed 08/30/2023) * TROPONIN-I HIGH SENSITIVE REFLEX 1HOUR(Performed 08/29/2023) * RPR TITER(Performed 08/29/2023) * RPR(Performed 08/29/2023) * TROPONIN-I HIGH SENSITIVE BASELINE + 1HR(Performed 08/29/2023) * SYPHILIS ANTIBODY CASCADING REFLEX(Performed 08/29/2023) * EKG 12-LEAD(Performed 08/28/2023) Performed for Suicidal ideation * EKG 12-LEAD(Performed 08/28/2023) Performed for Encounter for medication monitoring * URINE DRUG SCREEN IMMUNOASSAY(Performed 08/28/2023) * T4 FREE(Performed 08/28/2023) * CBC W AUTO DIFFERENTIAL(Performed 08/28/2023) * COMPREHENSIVE METABOLIC PANEL(Performed 08/28/2023) * TSH REFLEX FREE T4(Performed 08/28/2023) * ALCOHOL ETHYL BLOOD(Performed 08/28/2023) * CARDIAC EKG ORDER(Performed 08/11/2023) * CARDIAC EKG ORDER(Performed 08/11/2023) * XR CHEST 1VW PORTABLE(Performed 08/07/2023) Performed for Heart palpitations * C-REACTIVE PROTEIN(Performed 08/07/2023) * TROPONIN-I HIGH SENSITIVE(Performed 08/07/2023) * CBC W AUTO DIFFERENTIAL(Performed 08/07/2023) * MAGNESIUM BLOOD(Performed 08/07/2023) * COMPREHENSIVE METABOLIC PANEL(Performed 08/07/2023) * HEMOGLOBIN A1C(Performed 08/07/2023) * LIPID PROFILE(Performed 08/07/2023) * EKG 12-LEAD(Performed 08/07/2023) Performed for Heart palpitations * CARDIAC EKG ORDER(Performed 05/03/2023) * XR CHEST 1VW PORTABLE(Performed 04/30/2023) Performed for Chest pain, unspecified type * C-REACTIVE PROTEIN(Performed 04/30/2023) * ERYTHROCYTE SEDIMENTATION RATE(Performed 04/30/2023) * TROPONIN-I HIGH SENSITIVE BASELINE + 1HR(Performed 04/30/2023) * COMPREHENSIVE METABOLIC PANEL(Performed 04/30/2023) * CBC W AUTO DIFFERENTIAL(Performed 04/30/2023) * EKG 12-LEAD(Performed 04/30/2023) Performed for Chest pain, unspecified type * C-REACTIVE PROTEIN(Performed 03/13/2023) * ERYTHROCYTE SEDIMENTATION RATE(Performed 03/13/2023) * TROPONIN-I HIGH SENSITIVE REFLEX 1HOUR(Performed 03/13/2023) * XR CHEST 2VW(Performed 03/13/2023) Performed for Chest pain, unspecified type * TROPONIN-I HIGH SENSITIVE BASELINE + 1HR(Performed 03/13/2023) * BASIC METABOLIC PANEL (CALCIUM TOTAL)(Performed 03/13/2023) * CBC W AUTO DIFFERENTIAL(Performed 03/13/2023) * EKG 12-LEAD(Performed 03/13/2023) Performed for Chest pain, unspecified type * EKG 12-LEAD(Performed 03/13/2023) Performed for Chest pain, unspecified type * CARDIAC EKG ORDER(Performed 01/12/2023) * EKG 12-LEAD(Performed 01/11/2023) Performed for ST elevation myocardial infarction (STEMI), unspecified artery (HCC), Abnormal EKG, Acute idiopathic pericarditis (HCC) * ECHO COMPLETE(Performed 01/11/2023) Performed for ST elevation myocardial infarction (STEMI), unspecified artery (HCC), Abnormal EKG * TROPONIN-I HIGH SENSITIVE REFLEX 1HOUR(Performed 01/11/2023) * B-TYPE NATRIURETIC PEPTIDE(Performed 01/11/2023) * XR CHEST 1VW PORTABLE(Performed 01/11/2023) Performed for ST elevation myocardial infarction (STEMI), unspecified artery (HCC) * PTT SLH(Performed 01/11/2023) * PT-INR SLH(Performed 01/11/2023) * COMPREHENSIVE METABOLIC PANEL(Performed 01/11/2023) * CBC W/O DIFFERENTIAL(Performed 01/11/2023) * PT-INR SLH(Performed 01/11/2023) * CBC W AUTO DIFFERENTIAL(Performed 01/11/2023) * TROPONIN-I HIGH SENSITIVE BASELINE + 1HR(Performed 01/11/2023) * CARDIAC EKG ORDER(Performed 06/04/2022) * GLUCOSE - POINT OF CARE(Performed 06/03/2022) * MRI CARDIAC STUDY WO CONTRAST(Performed 06/03/2022) Performed for ST elevation myocardial infarction (STEMI), unspecified artery (HCC), Chest pain due to myocardial ischemia, unspecified ischemic chest pain type, Acute pericarditis, unspecified type (HCC) * MAGNESIUM BLOOD(Performed 06/03/2022) * BASIC METABOLIC PANEL (CALCIUM TOTAL)(Performed 06/03/2022) * ECHO COMPLETE W BUBBLE STUDY(Performed 06/02/2022) Performed for Chest pain due to myocardial ischemia, unspecified ischemic chest pain type * RESPIRATORY PANEL WITH SARS-COV-2 BY PCR (STL)(Performed 06/02/2022) * URINE DRUG SCREEN IMMUNOASSAY(Performed 06/02/2022) * TROPONIN I(Performed 06/02/2022) * EKG 12-LEAD(Performed 06/02/2022) Performed for ST elevation myocardial infarction (STEMI), unspecified artery (HCC) * XR CHEST 1VW PORTABLE(Performed 06/02/2022) Performed for ST elevation myocardial infarction (STEMI), unspecified artery (HCC) * PTT SLH(Performed 06/02/2022) * PT-INR SLH(Performed 06/02/2022) * TROPONIN I(Performed 06/02/2022) * CBC W AUTO DIFFERENTIAL(Performed 06/02/2022) * COMPREHENSIVE METABOLIC PANEL(Performed 06/02/2022) * TROPONIN I(Performed 06/02/2022) * LIPASE BLOOD(Performed 03/31/2018) * COMPREHENSIVE METABOLIC PANEL(Performed 03/31/2018) * CBC W AUTO DIFFERENTIAL(Performed 03/31/2018) Results * CARDIAC EKG ORDER (09/19/2024 1:44 PM USER EXPERIENCE RESEARCHER) Only the most recent of8 resultswithin the time period is included. Narrative 09/19/2024 1:44 PM USER EXPERIENCE RESEARCHER Ordered by an unspecified provider. Scanned Document CARDIAC SERVICES ORD ERABLES * TROPONIN-I HIGH SENSITIVE REFLEX 1HOUR (09/17/2024 2:53 AM USER EXPERIENCE RESEARCHER) Only the most recent of5 resultswithin the time period is included. [facility] Troponin I High Sensitive 9 <=35 ng/L 09/17/2024 3:38 AM USER EXPERIENCE RESEARCHER [facility] Delta Troponin I HS 0 <6 ng/L 09/17/2024 3:38 AM USER EXPERIENCE RESEARCHER [facility] Blood BLOOD SPECIMEN / Unknown Venipuncture / Unknown 09/17/2024 2:53 AM USER EXPERIENCE RESEARCHER 09/17/2024 2:59 AM USER EXPERIENCE RESEARCHER Kyree Rossi MD LAB - CHEMISTRY CECIL SANTOS [facility] [address] [place] [id number], [facility] [phone] * BLOOD TYPE VERIFICATION (09/17/2024 2:53 AM USER EXPERIENCE RESEARCHER) [facility] ABO Rh A POS 09/17/2024 3:2 2 AM USER EXPERIENCE RESEARCHER [facility] Blood Bank BLOOD SPECIMEN / Unknown Venipuncture / Unknown 09/17/2024 2:53 AM USER EXPERIENCE RESEARCHER 09/17/2024 3:00 AM USER EXPERIENCE RESEARCHER Kyree Rossi MD LAB - BLOOD BANK ORD MISSY [facility] [address] [place] [phone], [facility] [phone] * XR CHEST 2VW (09/17/2024 2:07 AM USER EXPERIENCE RESEARCHER) Only the most recent of2 resultswithin the time period is included. Anatomical Region Laterality Modality Chest Digital Radiogra phy 09/17/2024 2:08 AM USER EXPERIENCE RESEARCHER Narrative 09/17/2024 7:55 AM USER EXPERIENCE RESEARCHER PROCEDURE: XR CHEST 2VW, DATE/TIME OF EXAM: 09/17/2024 2:08 AM, LOCATION [facility] INDICATION: R07.9: Chest pain, unspecified type ADDITIONAL CLINICAL INFORMATION: Ordering Provider Reason For Exam: pna vs other Technologist Note: Additional: COMPARISON: None. FINDINGS/IMPRESSION: No focal consolidation, pleural effusion, or pneumothorax. The cardiomediastinal silhouette is normal. No acute osseous abnormality. > Dictated by Acacia Leal MD (radiology transporter) Mandi Osman MD have personally reviewed and interpreted this examination/study. > Interpreting Provider: Mandi Mccain MD on 09/17/2024 7:55 AM Procedure Note Mandi Mccain MD - 09/17/2024 PROCEDURE: XR CHEST 2VW, DATE/TIME OF EXAM: 09/17/2024 2:08 AM, LOCATION [facility] INDICATION: R07.9: Chest pain, unspecified type ADDITIONAL CLINICAL INFORMATION: Ordering Provider Reason For Exam: pna vs other Technologist Note: Additional: COMPARISON: None. FINDINGS/IMPRESSION: No focal consolidation, pleural effusion, or pneumothorax. The cardiomediastinal silhouette is normal. No acute osseousabnormality. > Dictated by Acacia Leal MD (radiology transporter) Mandi Osman MD have personally reviewed and interpreted this examination/study. > Interpreting Provider: Mandi Mccain MD on 09/17/2024 7:55 AM Kyree Rossi MD DIAGNOSTIC IMAGING O RDERABLES * SARS-COV-2 (COVID-19)+INFLU A+B PCR RAPID (09/17/2024 2:02 AM USER EXPERIENCE RESEARCHER) COVID-19 PCR Not detected Not detected 09/17/19 2:45 AM USER EXPERIENCE RESEARCHER [facility] Influenza A Rapid ROSALIND Not Detected Not Detected 09/17/2024 2:45 AM USER EXPERIENCE RESEARCHER [facility] Influenza B ROSALIND Rapid Not Detected Not Detected 09/17/2024 2:45 AM [facility] Microbiology SPECIMEN FROM NASOPHARYNGEAL STRUCTURE / Unknown Collection / Unknown 09/17/2024 2:02 AM USER EXPERIENCE RESEARCHER 09/17/2024 2:05 AM USER EXPERIENCE RESEARCHER Narrative [facility] - 09/17/2024 2:45 AM USER EXPERIENCE RESEARCHER Influenza assay performed by [employer]. [...] acid amplification assay performance was validated by [facility]. This test has been authorized by [...] Rossi MD LAB - MICROBIOLOGY O RDERABLES [facility] [address] [place] [address], [facility] [phone] * PT-INR [facility] (09/17/2024 1:52 AM USER EXPERIENCE RESEARCHER) Only the most recent of4 resultswithin the time period is included. PT 13.3 12.1 - 14.8 Seconds 09/17/2024 2:18 AM [facility] INR 1.0 See Comment 09/17/2024 2:18 AM [facility] Comment:The suggested therap eutic range for standard coumadin (warfarin) therapy is an INR of 2.0-3.0. For high-risk patients (Mechanical Mitral Valve Prosthesis, etc.), the suggested prophylactic therapeutic range is an INR of 2.5-3.5. Blood BLOOD SPECIMEN / Unknown Venipuncture / Unknown 09/17/2024 1:52 AM USER EXPERIENCE RESEARCHER 09/17/2024 1:57 AM USER EXPERIENCE RESEARCHER Kyree Rossi MD LAB - COAGULATION OR DERABLES Performing Organization Address [facility] Co de Phone Number [address] [address], [facility] [phone] * TROPONIN-I HIGH SENSITIVE BASELINE + 1HR (09/17/2024 1:52 AM USER EXPERIENCE RESEARCHER) Only the most recent of6 resultswithin the time period is included. Troponin I High Sensitive 9 <=35 ng/L 09/17/2024 2:28 AM [facility] Blood BLOOD SPECIMEN / Unknown Venipuncture / Unknown 09/17/2024 1:52 AM USER EXPERIENCE RESEARCHER 09/17/2024 1:57 AM USER EXPERIENCE RESEARCHER Kyree Rossi MD LAB - CHEMISTRY ORDE RABLES Performing Organization Address [facility] Co de Phone Number [address] [address], [place] [phone] * TYPE + SCREEN PANEL (09/17/2024 1:52 AM USER EXPERIENCE RESEARCHER) Antibody Screen NEG 2:35 AM USER EXPERIENCE RESEARCHER [facility] ABO Rh A POS 09/17/2024 2:35 AM USER EXPERIENCE RESEARCHER [facility] Blood Bank BLOOD SPECIMEN / Unknown Venipuncture / Unknown 09/17/2024 1:52 AM USER EXPERIENCE RESEARCHER 09/17/2024 1:59 AM USER EXPERIENCE RESEARCHER Kyree Rossi MD LAB - BLOOD BANK ORD ERABLES Performing Organization Address City/[facility]/ZIP Co de Phone Number [facility] [address] [place] [address], [facility] [phone] * (ABNORMAL) CBC W AUTO DIFFERENTIAL (09/17/2024 1:52 AM [facility]) Only the most recent of9 resultswithin the time period is included. WBC 5.1 4.0 - 10.7 x10E9/L 09/17/2024 2:01 AM [facility] RBC Count 4.62 4.30 - 5.80 x10E12/L 09/17/2024 2:01 AM [facility] Hemoglobin 13.2(L) 13.3 - 17.5 g/dL 09/17/2024 2:01 AM [facility] Hematocrit 39.2 38.7 - 51.1 % 09/17/2024 2:01 AM [facility] MCV 84.8 80.0 - 98.0 fL 09/17/2024 2:01 AM [facility] MCH 28.6 26.7 - 33.6 pg 09/17/2024 2:01 AM [facility] MCHC 33.7 31.7 - 36.3 g/dL 09/17/2024 2:01 AM [facility] RDW-CV 13.2 11.3 - 14.8 % 09/17/2024 2:01 AM [facility] Platelet Count 240 150 - 420 x10E9/L 09/17/2024 2:01 AM [facility] MPV 9.6 7.8 - 11.4 fL 09/17/2024 2:01 AM [facility] Neutrophil % 69.4 41.0 - 74.0 % 09/17/2024 2:01 AM [facility] Lymphocyte % 18.1 17.0 - 47.0 % 09/17/2024 2:01 AM [facility] Monocyte % 10.5 3.0 - 11.0 % 09/17/2024 2:01 AM [facility] Eosinophil % 1.4 0.0 - 7.0 % 09/17/2024 2:01 AM [facility] Basophil % 0.4 0.0 - 1.6 % 09/17/2024 2:01 AM [facility] Immature Granulocytes % 0.2 0.0 - 1.0 % 09/17/2024 2:01 AM [facility] Neutrophil Absolute 3.56 1.60 - 7.50 x10E9/L 09/17/2024 2:01 AM [facility] Lymphocyte Absolute 0.93(L) 1.00 - 4.40 x10E9/L 09/17/2024 2:01 AM [facility] Monocyte Absolute 0.54 0.15 - 1.00 x10E9/L 09/17/2024 2:01 AM [facility] Eosinophil Absolute 0.07 0.00 - 0.60 x10E9/L 09/17/2024 2:01 AM [facility] Basophil Absolute 0.02 0.00 - 0.13 x10E9/L 09/17/2024 2:01 AM [facility] Blood BLOOD SPECIMEN / Unknown Venipuncture / Unknown 09/17/2024 1:52 AM USER EXPERIENCE RESEARCHER 09/17/2024 1:56 AM [facility] Kyree Rossi MD LAB - HEMATOLOGY ORD ERABLES [facility] [address] [place] [phone], [facility] [phone] * B-TYPE NATRIURETIC PEPTIDE (09/17/2024 1:52 AM [facility]) Only the most recent of2 resultswithin the time period is included. BNP <10 <100 pg/mL 09/17/2024 2:43 AM [facility] Comment: A decision threshold of 100 [...] Unknown Venipuncture / Unknown 09/17/2024 1:52 AM USER EXPERIENCE RESEARCHER 09/17/2024 2:09 AM USER EXPERIENCE RESEARCHER Kyree Rossi MD LAB - CHEMISTRY CECIL SANTOS [facility] Organization Address City/State/ZIP Co de Phone Number [facility] [address] [place] [address], [facility] [phone] * (ABNORMAL) COMPREHENSIVE METABOLIC PANEL (09/17/2024 1:52 AM USER EXPERIENCE RESEARCHER) Only the most recent of8 resultswithin the time period is included. BUN 8 7 - 26 mg/dL 09/17/2024 2:24 AM [facility] Creatinine 1.03 0.71 - 1.16 mg/dL 09/17/2024 2:24 AM [facility] Sodium 142 136 - 145 mmol/L 09/17/2024 2:24 AM [facility] Potassium 3.8 3.5 - 4.5 mmol/L 09/17/2024 2:24 AM [facility] Chloride 110(H) 98 - 107 mmol/L 09/17/2024 2:24 AM [facility] CO2 23 22 - 29 mmol/L 09/17/2024 2:24 AM [facility] Glucose 128(H) 70 - 99 mg/dL 09/17/2024 2:24 AM [facility] Calcium 8.8 8.4 - 10.2 mg/dL 09/17/2024 2:24 AM [facility] Protein Total 7.0 6.0 - 8.3 g/dL 09/17/2024 2:24 AM [facility] Albumin 3.8 3.4 - 5.0 g/dL 09/17/2024 2:24 AM [facility] Bilirubin Total 0.3 0.2 - 1.2 mg/dL 09/17/2024 2:24 AM [facility] Alkaline Phosphatase 65 40 - 150 U/L 09/17/2024 2:24 AM [facility] ALT 35 5 - 55 U/L 09/17/2024 2:24 AM [facility] AST 29 5 - 34 U/L 09/17/2024 2:24 AM [facility] Anion Gap 9 6 - 16 09/17/2024 2:24 AM [facility] BUN/Creatinine Ratio 8 7 - 23 09/17/2024 2:24 AM [facility] Osmolality Calculated 294 275 - 295 mOsm/kg 09/17/2024 2:24 AM [facility] Albumin/Globulin Ratio 1.2 1.1 - 2.3 09/17/2024 2:24 AM [facility] eGFR by CKD-EPI >90 >=90 mL/min/1.7 3 m2 09/17/2024 2:24 AM [facility] Blood BLOOD SPECIMEN / Unknown Venipuncture / Unknown 09/17/2024 1:52 AM USER EXPERIENCE RESEARCHER 09/17/2024 1:57 AM USER EXPERIENCE RESEARCHER Kyree Rossi MD LAB - CHEMISTRY CECIL SANTOS Performing Organization Address City/[facility]/ZIP Co de Phone Number [address] [address], [facility] [phone] * MAGNESIUM BLOOD (09/17/2024 1:52 AM USER EXPERIENCE RESEARCHER) Only the most recent of3 resultswithin the time period is included. Pathologist [facility] Magnesium 1.8 1.6 - 2.6 mg/dL 09/17/2024 2:24 AM [facility] Blood BLOOD SPECIMEN / Unknown Venipuncture / Unknown 09/17/2024 1:52 AM USER EXPERIENCE RESEARCHER 09/17/2024 1:57 AM USER EXPERIENCE RESEARCHER Kyree Rossi MD LAB - CHEMISTRY CECIL SANTOS Performing Organization Address City/[facility]/ZIP Co de Phone Number [address] [address], [facility] [phone] * EKG 12-LEAD (09/17/2024 1:43 AM USER EXPERIENCE RESEARCHER) Only the most recent of9 resultswithin the time period is included. Ventricular Rate 80 BPM [facility] MUSE Atrial Rate 80 BPM [facility] MUSE P-R Interval 164 ms [facility] MUSE QRS Duration ms 116 ms [facility] MUSE Q-T Interval ms 356 ms [facility] MUSE QTC Calculation (Bezet) 410 ms SL MUSE Calculated [place] 36 degrees [facility] MUSE Calculated [place] 80 degrees SL MUSE Calculated [place] 48 degrees [facility] MUSE Interpretation EKG NORMAL SINUS RHYTHM ST ELEVATION CONSIDER ANTEROLATERAL INJURY OR ACUTE INFARCT ST ELEVATION CONSIDER INFERIOR INJURY OR ACUTE INFARCT ACUTE FL / STEMI ABNORMAL ECG WHEN COMPARED WITH ECG OF 28-AUG-2023 22:14, T WAVE INVERSION NO LONGER EVIDENT IN INFERIOR LEADS NONSPECIFIC T WAVE ABNORMALITY HAS REPLACED INVERTED T WAVES IN LATERAL LEADS Confirmed by VALERIA PETERSON, TG ([id number]) on 09/23/2024 7:15:26 PM [facility] 09/17/2024 1:43 AM USER EXPERIENCE RESEARCHER 09/23/2024 7:15 PM USER EXPERIENCE RESEARCHER Kyree Rossi MD ECG ORDERABLES Performing Organization Address City/[facility]/ZIP Co de Phone Number [facility] * (ABNORMAL) RPR TITER (08/29/2023 12:31 AM USER EXPERIENCE RESEARCHER) RPR Titer 1:4(A) (none) 08/29/2023 12:37 PM USER EXPERIENCE RESEARCHER [facility] Blood BLOOD SPECIMEN / Unknown Venipuncture / Unknown 08/29/2023 12:31 AM USER EXPERIENCE RESEARCHER 08/29/2023 12:33 AM USER EXPERIENCE RESEARCHER Delmi Jeronimo COMMUNITY ENGAGEMENT REPRESENTATIVE-MODEL MAKING SUPERVISOR LAB - CHEMIS TRY ORDERABLES [facility] [address] [place] [address], [facility] [phone] * (ABNORMAL) SYPHILIS ANTIBODY CASCADING REFLEX (08/29/2023 12:31 AM USER EXPERIENCE RESEARCHER) Treponema pallidum Antibody REACTIVE( A) Non-react jeff 08/29/2023 1:31 AM USER EXPERIENCE RESEARCHER [facility] Comment:Additional testing r equired for evaluation of syphilis. An RPR has been reflexively ordered and is in progress. Blood BLOOD SPECIMEN / Unknown Venipuncture / Unknown 08/29/2023 12:31 AM USER EXPERIENCE RESEARCHER 08/29/2023 12:33 AM USER EXPERIENCE RESEARCHER Delmi Jeronimo COMMUNITY ENGAGEMENT REPRESENTATIVE-MODEL MAKING SUPERVISOR LAB - [place] GY ORDERABLES Performing Organization Address [facility]/ZIP Co de Phone Number [facility] [address] [place] [phone], [facility] [phone] * (ABNORMAL) RPR (08/29/2023 12:31 AM USER EXPERIENCE RESEARCHER) Pathologist [facility] RPR REACTIVE( A) Non Reactive 08/29/2023 12:36 PM USER EXPERIENCE RESEARCHER [facility] Comment: Treponemal antibodies and non-treponemal antibodies detected. Consistent with current syphilis infection. Clinical evaluation should be performed to identify signs, symptoms, or past history of infection. Blood BLOOD SPECIMEN / Unknown Venipuncture / Unknown 08/29/2023 12:31 AM USER EXPERIENCE RESEARCHER 08/29/2023 12:33 AM USER EXPERIENCE RESEARCHER Delmi Jeronimo [facility] CHEMIS TRY ORDERABLES Performing Organization Address [facility] Co de Phone Number [address] [phone], [facility] [phone] * (ABNORMAL) URINE DRUG SCREEN IMMUNOASSAY (08/28/2023 9:59 PM USER EXPERIENCE RESEARCHER) Only the most recent of2 resultswithin the time period is included. [facility] Amphetamines Screen Urine Negative Negative : < 1000 ng/mL 08/28/2023 10:43 PM USER EXPERIENCE RESEARCHER [facility] Barbiturates Screen Urine Negative Negative : < 200 ng/mL 08/28/2023 10:43 PM [facility] Benzodiazepine Screen Urine Negative Negative : < 200 ng/mL 08/28/2023 10:43 PM [facility] Opiates Urine Negative Negative : < 300 ng/mL 08/28/2023 10:43 PM [facility] Cocaine Metabolites Urine Negative Negative : < 300 ng/mL 08/28/2023 10:43 PM [facility] Phencyclidine Screen Urine Negative Negative : < 25 ng/ml 08/28/2023 10:43 PM [facility] Cannabinoids Screen Urine Positive(A) Negative : <50 ng/mL 08/28/2023 10:43 PM [facility] Comment:Positive urine canna binoids (THC) screening results should be confirmed by another generally accepted non-immunological method such as gas chromatography or mass spectrometry. Methadone Screen Urine Negative Negative : < 300 ng/mL 08/28/2023 10:43 PM [facility] Fentanyl Screen Urine Negative Negative : <1.5 ng/mL 08/28/2023 10:43 PM [facility] Urine URINE / Unknown Collection / Unknown 08/28/2023 9:59 PM USER EXPERIENCE RESEARCHER 08/28/2023 10:07 PM [facility] Narrative [facility] - 08/28/2023 10:43 PM USER EXPERIENCE RESEARCHER The Urine Toxicology Screening Panel does not screen for Propoxyphene, Meprobamate, Carisoprodol, Trazodone, klsy-awz-lzeicns medications and/or volatiles (Acetone, Isopropanol, Methanol or Ethylene Glycol). Ethanol, Salicylate, Acetaminophen, Tricyclic Antidepressants and several therapeutic drugs may be individually assayed in serum or plasma specimen. Toxicology testing by the [facility] is an aid to medical diagnosis and treatment of patients. No documented chain of custody was maintained. Results are intended to be used for clinical purposes only. Delmi Jeronimo [facility] - URINE CHEMISTRY ORDERABLES [facility] [address] [place] [phone], [facility] [phone] * (ABNORMAL) TSH REFLEX FREE T4 (08/28/2023 9:57 PM USER EXPERIENCE RESEARCHER) TSH 0.078(L) 0.350 - 4.940 uIU/mL 08/28/2023 11:01 PM [facility] Blood BLOOD SPECIMEN / Unknown Venipuncture / Unknown 08/28/2023 9:57 PM USER EXPERIENCE RESEARCHER 08/28/2023 10:13 PM USER EXPERIENCE RESEARCHER Delmi Jeronimo COMMUNITY ENGAGEMENT REPRESENTATIVES[facility] - CHEMIS TRY ORDERABLES Performing Organization Address City/[facility]/ZIP Co de Phone Number [facility] [address] [place] [phone], [facility] [phone] * ALCOHOL ETHYL BLOOD (08/28/2023 9:57 PM USER EXPERIENCE RESEARCHER) Ethanol (mg/dL) <10 <10 mg/dL 10:43 PM USER EXPERIENCE RESEARCHER [facility] Ethanol Calculated (g/dL) <0.010 <=0.010 g/dL 08/28/2023 10:43 PM USER EXPERIENCE RESEARCHER [facility] Blood BLOOD SPECIMEN / Unknown Venipuncture / Unknown 08/28/2023 9:57 PM USER EXPERIENCE RESEARCHER 08/28/2023 10:13 PM USER EXPERIENCE RESEARCHER Narrative [facility] - 08/28/2023 10:43 PM USER EXPERIENCE RESEARCHER Ethanol Interp <10: None Detected. Depression of RVDA MASTER CERTIFIED RV TECHNICIAN: >100 mg/dl Potentially Critical: >250 mg/dl Potentially Fatal >400 mg/dl Ethanol in the patient's blood will contribute to the osmolar gap. Ethanol's contribution to the osmolar gap can be estimated by dividing the concentration of ethanol in mg/dL by 4.6. This test is for clinical use only and does not equal a PASCUAL for legal purposes. Delmi Jeronimo [facility] [employer] TRY ORDERABLES Performing Organization Address [facility]/ZIP Co de Phone Number [address] [address], [facility] [phone] * T4 FREE (08/28/2023 9:57 PM USER EXPERIENCE RESEARCHER) T4 Free 0.9 0.7 - 1.5 ng/dL 08/28/2023 11:33 PM USER EXPERIENCE RESEARCHER [facility] Blood BLOOD SPECIMEN / Unknown Venipuncture / Unknown 08/28/2023 9:57 PM USER EXPERIENCE RESEARCHER 08/28/2023 10:13 PM USER EXPERIENCE RESEARCHER Delmi Jeronimo COMMUNITY ENGAGEMENT [facility] [employer] TRY ORDERABLES [address] [place] [address], [facility] [phone] * XR CHEST 1 VW PORTABLE 11117 (08/07/2023 3:40 PM USER EXPERIENCE RESEARCHER) Only the most recent of4 resultswithin the time period is included. Anatomical Region Laterality Modality Chest Computed Radiogr aphy 08/07/2023 4:10 PM USER EXPERIENCE RESEARCHER Impressions 08/07/2023 4:11 PM USER EXPERIENCE RESEARCHER IMPRESSION: No acute cardiopulmonary process. > Interpreting Provider: Seth Reed DO on 08/07/2023 4:11 PM Narrative 08/07/2023 4:11 PM USER EXPERIENCE RESEARCHER PROCEDURE: XR CHEST 1VW PORTABLE Date/Time of Exam: 08/07/2023 3:41 PM INDICATION: R00.2: Palpitations Comparison: None. Findings: Lungs: There is no consolidation or atelectasis in either lung. Heart and mediastinum: Heart size normal. No abnormal mediastinal or hilar lymph nodes. Tracheal air shadow and aortic contour normal. Pleural spaces: No pleural fluid nor pneumothorax. Musculoskeletal: No acute osseous abnormalities. Procedure Note Seth Reed DO - 08/07/2023 PROCEDURE: XR CHEST 1VW PORTABLE Date/Time of Exam: 08/07/2023 3:41 PM INDICATION: R00.2: Palpitations Comparison: None. Findings: Lungs: There is no consolidation or atelectasis in either lung. Heart and mediastinum: Heart size normal. No abnormal mediastinal orhilar lymph nodes. Tracheal air shadow and aortic contour normal. Pleural spaces: No pleural fluid nor pneumothorax. Musculoskeletal: No acute osseous abnormalities. IMPRESSION: No acute cardiopulmonary process. > Interpreting Provider: Seth Reed DO on 08/07/2023 4:11 PM Nicola Childers COMMUNITY ENGAGEMENT REPRESENTATIVE-MODEL MAKING SUPERVISOR DIAGNOSTIC IMAGING ORDERABLES * TROPONIN-I HIGH SENSITIVE (08/07/2023 3:10 PM USER EXPERIENCE RESEARCHER) Troponin I High Sensitive 4 <=35 ng/L 08/07/2023 3:47 PM USER EXPERIENCE RESEARCHER [facility] Blood BLOOD SPECIMEN / Unknown Lab Venipuncture / Unknown 08/07/2023 3:10 PM USER EXPERIENCE RESEARCHER 08/07/2023 3:18 PM USER EXPERIENCE RESEARCHER Nicola Childers COMMUNITY ENGAGEMENT REPRESENTATIVEN[facility] - CHEM ISTRY ORDERABLES Performing Organization Address City/[facility]/ZIP Co de Phone Number [facility] [address] * C-REACTIVE PROTEIN (08/07/2023 3:10 PM USER EXPERIENCE RESEARCHER) Only the most recent of3 resultswithin the time period is included. C-Reactive Protein <0.10 <=0.50 mg/dL 08/07/2023 4:12 PM USER EXPERIENCE RESEARCHER [facility] Blood BLOOD SPECIMEN / Unknown Lab Venipuncture / Unknown 08/07/2023 3:10 PM USER EXPERIENCE RESEARCHER 08/07/2023 3:18 PM USER EXPERIENCE RESEARCHER Nicola Childers [facility] - CHEM ISTRY ORDERABLES Performing Organization Address [facility] de Phone Number [facility] [address] [place] [address] * HEMOGLOBIN A1C (08/07/2023 3:01 PM USER EXPERIENCE RESEARCHER) Hemoglobin A1c 5.4 4.2 - 5.6 % 08/08/2023 6:09 AM USER EXPERIENCE RESEARCHER [facility] Estimated Average Glucose 108 mg/dL 08/08/2023 6:09 AM USER EXPERIENCE RESEARCHER [facility] Blood BLOOD SPECIMEN / Unknown Lab Venipuncture / Unknown 08/07/2023 3:01 PM USER EXPERIENCE RESEARCHER 08/08/2023 5:56 AM USER EXPERIENCE RESEARCHER Narrative [facility] - 08/08/2023 6:09 AM USER EXPERIENCE RESEARCHER HbA1c Interpretation: Normal: < 5.7% Pre-diabetes: 5.7-6.4% Diabetes: Equal to or greater than 6.5% Test results diagnostic of diabetes should be repeated for confirmation. Treatment target values recommended by ADA and other clinical organizations should be used to evaluate metabolic control in patients. This test should not replace glucose testing for patients with Type 1 diabetes, pediatric patients, or women. Falsely low HbA1c results may be observed in patients with clinical conditions that shorten erythrocyte life span or decrease mean erythrocyte age such as the presence of unstable hemoglobin variants, elevated hemoglobin F level or other causes of hemolytic anemia. HbA1c may not accurately reflect glycemic control when clinical conditions that affect erythrocyte survival are present. Severe Iron deficiency anemia may yield falsely high results. Hemoglobin A1c assay should not be used to diagnose or monitor diabetes in patients with malignancy, recent blood transfusion, chronic kidney or liver disease. This method may yield falsely low results when hemoglobin (HbF) exceeds 5% in the specimen. The Hartman Alinity assay for the measurement of HbA1c is a National Glycohemoglobin Standardization Program (NGSP) certified method. Trinity Pollard [facility] - CHEMISTRY ORDERABLES [facility] [address] * (ABNORMAL) LIPID PROFILE (08/07/2023 3:01 PM [facility]) [facility] Cholesterol 164 <200 mg/dL 08/08/2023 6:11 AM [facility] Triglycerides 178(H) <150 mg/dL 08/08/2023 6:11 AM [facility] HDL Cholesterol 50 >40 mg/dL 4 6:11 AM [facility] Chol HDL Ratio 3.3 1.0 - 6.0 08/08/2023 6:11 AM [facility] LDL Calculated 78 65 - 130 mg/dL 08/08/2023 6:11 AM [facility] VLDL Calculated 36(H) <=30 mg/dL 4 6:11 AM [facility] Blood BLOOD SPECIMEN / Unknown Lab Venipuncture / Unknown 08/07/2023 3:01 PM USER EXPERIENCE RESEARCHER 08/08/2023 5:56 AM [facility] Narrative [facility] - 08/08/2023 6:11 AM [facility] Lipid Profile Comment: CHOLESTEROL LEVEL..................CLINICAL INTERPRETATION LESS THAN 200 MG/DL..............................DESIRABLE 200-239 MG/DL..............................BORDERLINE HIGH GREATER THAN 240 MG/DL................................HIGH LDL-CHOLESTEROL LEVEL..............CLINICAL INTERPRETATION LESS THAN 100 MG/DL................................OPTIMAL 100-129 MG/DL.................................NEAR OPTIMAL GREATER THAN 160 MG/DL...........................HIGH RISK HDL RISK LEVEL GREATER THEN 60 MG/DL............................DECREASED 40-60 MG/DL........................................AVERAGE LESS THAN 40 MG/DL...............................INCREASED TRIGLYCERIDE LEVEL..................CLINICAL INTERPRETATION LESS THAN 150 MG/DL...............................DESIRABLE 150-199 MG/DL...............................BORDERLINE HIGH 200-499 MG/DL..........................................HIGH GREATER THAN 500..................................VERY HIGH THE NATIONAL CHOLESTEROL EDUCATION PROGRAM HAS SET THE ABOVE GUIDELINES (REFERANCE VALUES) FOR CHOLESTEROL AND HDL. RISK ASSOCIATED WITH CHOLESTEROL/HDL RATIOS RISK....................MALE RATIO.............FEMALE RATIO 1/2 AVERAGE.................<3.4.......................<3.3 LOW RISK.................... 4.0 ...................... 3.8 AVERAGE..................... 5.0 ...................... 4.5 2X AVERAGE.................. 9.5 ...................... 7.0 3X AVERAGE...................>23........................>11 Trinity Pollard APRN-[facility] LAB - CHEMISTRY ORDERABLES [facility] [address] * ERYTHROCYTE SEDIMENTATION RATE (04/30/2023 9:06 AM CDT) Only the most recent of2 resultswithin the time period is included. Erythrocyte Sedimentation Rate Navid 13 0 - 15 MM/HR 04/30/2023 9:28 AM CDT [facility] Blood BLOOD SPECIMEN / Unknown Venipuncture / Unknown 04/30/2023 9:06 AM CDT 04/30/2023 9:15 AM CDT Neel Hernandez MD LAB - HEMATOLO GY ORDERABLES [facility] [address] [place] [address], [facility] [phone] * (ABNORMAL) BASIC METABOLIC PANEL (CALCIUM TOTAL) (03/13/2023 2:38 AM CDT) Only the most recent of2 resultswithin the time period is included. BUN 14 7 - 26 mg/dL 03/13/2023 3:17 AM [facility] Creatinine 1.18(H) 0.71 - 1.16 mg/dL 03/13/2023 3:17 AM [facility] Sodium 142 136 - 145 mmol/L 03/13/2023 3:17 AM [facility] Potassium 3.6 3.5 - 4.5 mmol/L 03/13/2023 3:17 AM [facility] Chloride 111(H) 98 - 107 mmol/L 03/13/2023 3:17 AM [facility] CO2 21(L) 22 - 29 mmol/L 03/13/2023 3:17 AM [facility] Glucose 172(H) 70 - 115 mg/dL 03/13/2023 3:17 AM [facility] Calcium 9.4 8.4 - 10.2 mg/dL 03/13/2023 3:17 AM [facility] Anion Gap 14 8 - 18 03/13/2023 3:17 AM [facility] BUN/Creatinine Ratio 12 7 - 23 03/13/2023 3:17 AM [facility] Osmolality Calculated 299 270 - 300 mOsm/kg 03/13/2023 3:17 AM [facility] eGFR by CKD-EPI 84(L) >=90 mL/min/1.7 3 m2 03/13/2023 3:17 AM [facility] Blood BLOOD SPECIMEN / Unknown Venipuncture / Unknown 03/13/2023 2:38 AM CDT 03/13/2023 2:47 AM CDT Cash Parker MD LAB - CHEMISTRY ORDERABLES [facility] [address] [place] [address], [facility] [phone] * ECHO COMPLETE (01/11/2023 11:08 AM CDT) BSA 1.1323677 [id number] m2 SSM CV FUJI PACS LV biplane EF 63 52 - 72 % SSM CV FUJI PACS LV A2C EF 64 48 - 76 % SSM CV FUJ I PACS LV A4C EF 65 46 - 74 % SSM CV FUJ I PACS LVOT stroke vol 73.80 cm3 SSM CV FUJI PACS LV stroke vol 2D teich 56.798 ml SSM CV FUJI PACS LV stroke vol index A4C MOD 139.732 ml SSM CV FUJI PACS LVIDd 5.06 4.2 - 5.8 cm SSM CV FUJI PACS LVIDs 3.87 2.5 - 4.0 cm SSM CV FUJI PACS IVSd 2D 0.787 0.6 - 1 cm SSM CV FUJI PACS IVSs 1.13 cm SSM CV FUJ I PACS LVPWd 0.89 cm SSM CV FUJ I PACS Fractional Shortening 2D 24 28 - 44 % SSM CV FUJI PACS LV ESV BP 78.449 21 - 61 mL SSM CV FUJI PACS LV ESV index BP 39.9 11 - 31 mL/m2 SSM CV FUJI PACS LV ESV A2C 75.479 15 - 75 mL SSM CV FUJI PACS LV EDV BP 212.144 mL SSM CV FUJ I PACS LV ESV A4C 73.997 22 - 78 mL SSM CV FUJI PACS LV EDV index BP 107.8 34 - 74 mL/m2 SSM CV FUJI PACS LV EDV A2C 204.161 59 - 175 mL SSM CV FUJI PACS LV EDV A4C 215.211 mL SSM CV FU JI PACS LV ESV 2D 64.6 21 - 61 mL SSM CV FUJI PACS LV EDV 2D 121.398 62 - 150 mL SSM CV FUJI PACS LVOT diam 2.2 cm SSM CV FUJ I PACS LVOT area 3.80 cm2 SSM CV FUJ I PACS LV RWT 0.352 SSM CV FUJ I PACS LV Hurley A2C 11.195 cm SSM CV F UJI PACS LV Hurley A4C 10.808 cm SSM CV F UJI PACS MV E pk joni 91.505 cm/s SSM CV F UJI PACS MV avg E/e' ratio 7.26 SS M CV FUJI PACS MV A pk joni 64.372 cm/s SSM CV F UJI PACS MV E A ratio 1.42 SSM CV FUJI PACS LV IVRT 126 ms SSM CV FUJ I PACS MV E' lateral joni 12.569 cm/s SS M CV FUJI PACS MV DT 185 ms SSM CV FUJ I PACS MV E' septal joni 12.641 cm/s SSM CV FUJI PACS MV A duration 157 ms SSM CV FUJI PACS MV E/e' septal 7.239 SSM C V FUJI PACS MV E/e' lateral 7.28 SSM CV FUJI PACS TR pk joni 217.0 cm/s SSM CV [facility] I PACS P vein A joni 25.0 cm/s SSM CV FUJI PACS P vein A duration 131 ms SS M CV FUJI PACS LVOT pk joni 0.95 m/s SSM CV F UJI PACS LVOT mn joni 0.58 m/s SSM CV F UJI PACS LVOT mn grad 1.4 mmHg SSM CV FUJI PACS LVOT Cardiac Output 3.806 l/min SSM CV FUJI PACS LA ESV A2C MOD Index 28 ml/m2 SSM CV FUJI PACS LA ESV A4C MOD Index 24 ml/m2 SSM CV FUJI PACS LA size 3.21 3.0 - 4.0 cm SSM CV FUJI PACS LA vol BP A-L 58.412 mL SSM CV FUJI PACS RVIDd 2.8 cm SSM CV [facility] I PACS RVOT VTI 18.446 cm SSM CV [facility] I PACS TV S' joni 15.082 SSM CV [facility] I PACS TAPSE 2.497 1.7 cm SSM CV [facility] I PACS RVOT pk joni 0.70 m/s SSM CV F UJI PACS RA area 18.208 cm2 SSM CV FUJ I PACS AV mn grad 3 mmHg SSM CV FU JI PACS AV pk grad 5 mmHg SSM CV FU JI PACS AV mn joni 0.77 m/s SSM CV FUJ I PACS AV pk joni 1.17 m/s SSM CV FUJ I PACS AV VTI 23.552 cm SSM CV FUJ I PACS LVOT pk grad 2.594 mmHg SSM CV FUJI PACS LVOT VTI 19.423 cm SSM CV FUJ I PACS AV area planimetry 3.13 cm2 SSM CV FUJI PACS AV area index 1.7 cm2/m2 SSM CV FUJI PACS AV area cont VTI 3.3 cm2 SSM CV FUJI PACS AV area pk joni 3.2 cm2 SSM C V FUJI PACS AV Doppler joni index pk joni 0.81 SSM CV FUJI PACS MV mn grad 1 mmHg SSM CV FU JI PACS MV pk grad 3 mmHg SSM CV FU JI PACS MV mn joni 0.34 m/s SSM CV FUJ I PACS MV pk joni 82.247 cm/s SSM CV FUJ I PACS MV PHT 54 ms SSM CV FUJ I PACS MV area PHT 4.07 cm2 SSM CV F UJI PACS MV area cont eq 2.38 cm2 SSM CV FUJI PACS MV VTI 31.052 cm SSM CV FUJ I PACS MV decel slope 493.739 cm/s2 SSM C V FUJI PACS TR VTI 70.3 cm SSM CV FUJ I PACS TR pk grad 19 mmHg SSM CV FU JI PACS RVOT mn grad 1 mmHg SSM CV FUJI PACS RVOT pk grad 2 mmHg SSM CV FUJI PACS NM pk grad 3 mmHg SSM CV FU JI PACS PV mn grad 2 mmHg SSM CV FU JI PACS PV pk joni 91.324 cm/s SSM CV FUJ I PACS PV pk grad 3 mmHg SSM CV FU JI PACS PV VTI 22.939 cm SSM CV FUJ I PACS PV mn joni 65.166 cm/s SSM CV FUJ I PACS Ascending aorta 2.84 cm SSM CV FUJI PACS [id number] 8.232 cm SSM CV FUJ I PACS [id number] 9.172 cm SSM CV FUJ I PACS Dimensionless Index 0.825 SSM CV FUJI PACS LV stroke vol BP 133.696 mL SSM CV FUJI PACS LVIDs index 1.97 1.3 - 2.1 cm/m2 SSM CV [facility] LV LVIDd index 2.57 2.2 - 3.0 cm/m2 [facility] CV [facility] Anatomical Region Laterality Modality Ultrasound Narrative 01/11/2023 1:29 PM CDT Left Ventricle: Left ventricle size is upper limits of normal. Normal wall thickness. Normal systolic function with a visually estimated EF of 55 - 60%. Normal wall motion. Normal diastolic function. Right Ventricle: Right ventricle size is normal. Normal systolic function. No significant valvular abnormalities. IVC/SVC: IVC diameter is less than or equal to 21 mm and decreases greater than 50% during inspiration; therefore the estimated right atrial pressure is normal (~3 mmHg). Pericardium: Trivial pericardial effusion present. Left Ventricle Left ventricle size is upper limits of normal. Normal wall thickness. Normal systolic function with a visually estimated EF of 55 - 60%. Normal wall motion. Normal diastolic function. Right Ventricle Right ventricle size is normal. Normal systolic function. Left Atrium Left atrium size is normal. Right Atrium Right atrium size is normal. IVC/SVC IVC diameter is less than or equal to 21 mm and decreases greater than 50% during inspiration; therefore the estimated right atrial pressure is normal (~3 mmHg). Mitral Valve Valve structure is normal. No restricted motion. Trace regurgitation. No stenosis. Tricuspid Valve Valve structure is normal. No restricted motion. Trace regurgitation. The pulmonary artery systolic pressure is normal. No stenosis. Aortic Valve Valve structure is trileaflet. No restricted motion. No regurgitation. No stenosis. Pulmonic Valve Valve structure is normal. No restricted motion. Trace regurgitation. No stenosis. Main pulmonary artery size is normal. Ascending Aorta Normal sized sinus of Valsalva (aortic root) and ascending aorta. Pericardium Trivial pericardial effusion present. Study Details Study quality was excellent. A complete 2D, color Doppler, spectral Doppler and M-mode echocardiogram was performed. The apical, parasternal, subcostal and suprasternal views were obtained. Procedure Note Teodoro Gomez MD - 01/11/2023 Left Ventricle: Left ventricle size is upper limits of normal. Normalwall thickness. Normal systolic function with a visually estimated EF of55 - 60%. Normal wall motion. Normal diastolic function. Right Ventricle: Right ventricle size is normal. Normal systolicfunction. No significant valvular abnormalities. IVC/SVC: IVC diameter is less than or equal to 21 mm and decreasesgreater than 50% during inspiration; therefore the estimated right atrialpressure is normal (~3 mmHg). Pericardium: Trivial pericardial effusion present. Sidney Reeves MD ECHO CUPID * PTT [facility] (01/11/2023 3:00 AM CDT) Only the most recent of2 resultswithin the time period is included. Pathologist [facility] APTT 28.8 23.0 - 38.4 Seconds 01/11/2023 3:43 AM T [facility] Comment:Suggested therapeuti c range for full dose I.V. unfractionated heparin therapy for venous thromboembolism is 71 to 109 seconds. Blood BLOOD SPECIMEN / Unknown Venipuncture / Unknown 01/11/2023 3:00 AM CDT 01/11/2023 3:15 AM CDT Sidney Reeves MD LAB - COAGULATION O RDERABLES [facility] [address] [place] [address], [facility] [phone] * (ABNORMAL) CBC W/O DIFFERENTIAL (01/11/2023 3:00 AM CDT) Pathologist [facility] WBC 6.2 3.5 - 10.5 10 3/uL 01/11/2023 3:25 AM CDT [facility] RBC 4.14(L) 4.30 - 5.70 10 6/uL 01/11/2023 3:25 AM [facility] Hemoglobin 12.3 12.0 - 17.6 g/dL 01/11/2023 3:25 AM T [facility] Hematocrit 37.7 35.2 - 51.7 % 01/11/2023 3:25 AM T [facility] MCV 91.1 80.7 - 98.3 fL 01/11/2023 3:25 AM T [facility] MCH 29.7 26.7 - 34.0 pg 01/11/2023 3:25 AM T [facility] MCHC 32.6 30.8 - 35.9 g/dL 01/11/2023 3:25 AM [facility] RDW-SD 43.0 36.0 - 50.0 fL 01/11/2023 3:25 AM [facility] RDW-CV 13.1 11.2 - 14.8 % 01/11/2023 3:25 AM [facility] Platelet Count 263 150 - 400 10 3/uL 01/11/2023 3:25 AM T [facility] MPV 9.6 9.4 - 12.9 fL 01/11/2023 3:25 AM [facility] nRBC Absolute 0.00 0 10 3/uL 01/11/2023 3:25 AM [facility] nRBC Auto 0.0 0 /100 WBC 01/11/2023 3:25 AM [facility] Blood BLOOD SPECIMEN / Unknown Venipuncture / Unknown 01/11/2023 3:00 AM CDT 01/11/2023 3:14 AM CDT Sidney Reeves MD LAB - HEMATOLOGY OR DERABLES [address] [address], [facility] [phone] * (ABNORMAL) GLUCOSE - POINT OF CARE (06/03/2022 12:10 PM CDT) Glucose WB/POC 279(H) 70 - 115 mg/dL 06/03/2022 5:07 PM CDT [facility] Specimen Type Arterial 06/03/2022 5:07 PM CDT [facility] Blood BLOOD SPECIMEN / Unknown 06/03/2022 12:10 PM CDT 06/03/2022 5:06 PM CDT Provider Unknown LAB - POINT OF CARE ORDERABLES [address] [address] [phone] * MRI CARDIAC STUDY WO CONTRAST (06/03/2022 8:08 AM CDT) Anatomical Region Laterality Modality Chest Magnetic Resonan ce 06/03/2022 10:4 9 AM CDT Impressions 06/03/2022 11:22 AM CDT Impression: 1.No imaging features of pericarditis or pericardial effusion. 2. Normal-sized heart and cardiac chambers. No wall motion abnormalities identified. > Interpreting Provider: Vielka Schaeffer MD on 06/03/2022 11:22 AM Narrative 06/03/2022 11:22 AM CDT PROCEDURE: MRI CARDIAC STUDY WO CONTRAST, DATE/TIME OF EXAM: 06/03/2022 8:09 AM, LOCATION [facility] INDICATION: I21.3: ST elevation myocardial infarction (STEMI), unspecified artery (CMS/HCC) I25.9: Chest pain due to myocardial ischemia, unspecified ischemic chest pain type I30.9: Acute pericarditis, unspecified type ADDITIONAL CLINICAL INFORMATION: Ordering Provider Reason For Exam: Myocarditis suspected in patient. EKG, patient had diffuse ST elevations inII, III, aVF, aVL, V1, -[id number] with pericarditis. COMPARISON: None. TECHNIQUE: MRI of the heart was performed without contrast according to a custom protocol monitored by the radiologist. Findings: Morphology: A left aortic arch is present. The visible aorta and pulmonary artery are normal in course and caliber. The right ventricle is normal in size without evidence of focal wall motion abnormality. The left ventricle is normal in size without evidence of focal wall motion abnormality. The myocardial thickness is within normal limits (septum measures 10 mm, anterior wall is 12 mm lateral wall is 11 mm and inferior wall is 9 mm in the mid ventricle). No pericardial thickening or pericardial effusion is identified. Valves: The aortic, pulmonic, tricuspid, and mitral valves are normal. No intraluminal filling defects or thrombi identified. Left and right ventricular functions: The left and right ventricular function was not able evaluated due to insufficient data set. Coronary arteries are noted evaluated due to motion artifacts. Noncardiac findings: The visible lungs are clear. There is no mediastinal lymphadenopathy. Procedure Note Vielka Schaeffer MD - 06/03/2022 PROCEDURE: MRI CARDIAC STUDY WO CONTRAST, DATE/TIME OF EXAM: 06/03/2022 8:09 AM, LOCATION [facility] INDICATION: I21.3: ST elevation myocardial infarction (STEMI), unspecified artery (CMS/HCC) I25.9: Chest pain due to myocardial ischemia, unspecified ischemic chest pain type I30.9: Acute pericarditis, unspecified type ADDITIONAL CLINICAL INFORMATION: Ordering Provider Reason For Exam: Myocarditis suspected in patient.EKG, patient had diffuse ST elevations inII, III, aVF, aVL, V1, -[id number] with pericarditis. COMPARISON: None. TECHNIQUE: MRI of the heart was performed without contrast according toa custom protocol monitored by the radiologist. Findings: Morphology: A left aortic arch is present. The visible aorta andpulmonary artery are normal in course and caliber. The right ventricle is normal in size without evidence of focal wallmotion abnormality. The left ventricle is normal in size without evidence of focal wallmotion abnormality. The myocardial thickness is within normal limits (septum measures 10 mm, anterior wall is 12 mm lateral wall is 11 mm andinferior wall is 9 mm in the mid ventricle). No pericardial thickening or pericardial effusion is identified. Valves: The aortic, pulmonic, tricuspid, and mitral valves are normal. No intraluminal filling defects or thrombi identified. Left and right ventricular functions: The left and right ventricular function was not able evaluated due to insufficient data set. Coronary arteries are noted evaluated due to motion artifacts. Noncardiac findings: The visible lungs are clear. There is no mediastinal lymphadenopathy. Impression: 1.No imaging features of pericarditis or pericardial effusion. 2. Normal-sized heart and cardiac chambers. No wall motion abnormalities identified. > Interpreting Provider: Vielka Schaeffer MD on 1:22 AM Neel Hernandez MD MR ORDERABLES * ECHO COMPLETE W BUBBLE STUDY (06/02/2022 3:42 PM CDT) Anatomical Region Laterality Modality Chest Echo 06/02/2022 3:01 PM CDT Narrative Procedure Note Juliet Benitez MD - 06/02/2022 Sidney Reeves MD ECHOCARDIOGRAPHY RA SOUSA * RESPIRATORY PANEL WITH SARS-COV-2 BY PCR (STL) (06/02/2022 1:30 PM CDT) Adenovirus PCR Not detected Not detected 06/02/2022 6:43 PM CDT [facility] Coronavirus 229E PCR Not detected Not detected 06/02/2022 6:43 PM CDT [facility] Coronavirus HKU1 PCR Not detected Not detected 06/02/2022 6:43 PM CDT [facility] Coronavirus NL63 PCR Not detected Not detected 06/02/2022 6:43 PM CDT [facility] Coronavirus OC43 PCR Not detected Not detected 06/02/2022 6:43 PM CDT [facility] COVID-19 PCR Not detected Not detected 06/02/2022 6:43 PM CDT [facility] Human Metapneumovirus PCR Not detected Not detected 06/02/2022 6:43 PM CDT [facility] Human Rhinovirus/Enterov irus PCR Not detected Not detected 06/02/2022 6:43 PM CDT [facility] Influenza A PCR Not detected Not detected 06/02/2022 6:43 PM CDT [facility] Influenza B PCR Not detected Not detected 06/02/2022 6:43 PM CDT [facility] Parainfluenza Virus 1 PCR Not detected Not detected 06/02/2022 6:43 PM CDT [facility] Parainfluenza Virus 2 PCR Not detected Not detected 06/02/2022 6:43 PM CDT [facility] Parainfluenza Virus 3 PCR Not detected Not detected 06/02/2022 6:43 PM CDT [facility] Parainfluenza Virus 4 PCR Not detected Not detected 06/02/2022 6:43 PM CDT [facility] Respiratory Syncytial Virus PCR Not detected Not detected 06/02/2022 6:43 PM CDT [facility] Bordetella parapertussis PCR Not detected Not detected 06/02/2022 6:43 PM CDT [facility] Bordetella pertussis PCR Not detected Not detected 06/02/2022 6:43 PM CDT [facility] Chlamydia pneumoniae PCR Not detected Not detected 06/02/2022 6:43 PM CDT [facility] Mycoplasma pneumoniae PCR Not detected Not detected 06/02/2022 6:43 PM CDT [facility] Microbiology SPECIMEN FROM NASOPHARYNGEAL STRUCTURE / Unknown Collection / Unknown 06/02/2022 1:30 PM CDT 06/02/2022 1:34 PM CDT Narrative [facility] - 06/02/2022 6:43 PM CDT This nucleic amplification assay has received FDA authorization via the [employer]. Neel Hernandez MD LAB - MICROBIO LOGY ORDERABLES [facility] [address] [place] [address], [facility] [phone] * (ABNORMAL) TROPONIN I (06/02/2022 8:02 AM CDT) Only the most recent of3 resultswithin the time period is included. Troponin I 0.228(H) <0.032 ng/mL 06/02/2022 8:42 AM CDT [facility] Blood BLOOD SPECIMEN / Unknown Venipuncture / Unknown 06/02/2022 8:02 AM CDT 06/02/2022 8:11 AM CDT Kyree Rossi MD LAB - CHEMISTRY CECIL SANTOS [facility] [address] [place] [address], [facility] [phone] * LIPASE BLOOD (03/31/2018 12:31 AM CDT) Lipase 118 73 - 393 U/L 03/31/2018 1:51 AM CDT [facility] Blood BLOOD SPECIMEN / Unknown Venipuncture / Unknown 03/31/2018 12:31 AM CDT 03/31/2018 12:36 AM CDT Stefan Montes MD LAB - CHEMISTRY CECIL Browne Organization Address City/State/ZIP Co de Phone Number [facility] [address] [place] [address] Care Teams Lei Maker Relationship Specialty Start Date End Date None, Physician PCP - General 09/17/24
--- OUTSIDE RECORDS SUMMARY | 2024-10-09 21:41 | XMS_ITS | Clinical Summary ---
Author Organization [facility] Commissioner Address [address] [place] [address] [place] [address] Care Team Providers Care Pizzamaker Name Role Phone None, Physician Primary Care Provider Unavailabl e Source Comments [facility] Commissioner,non-owned Affiliates and Associated Physician Practices is amultiple site organization consisting of ambulatory clinics and hospital sitesin [place], [place] and [place]. This disclosure is being madepursuant to the Care Everywhere program and may not contain all information available regarding this patient. Last updated 18.[employer] Allergies No known active allergies Medications * [...] (06/02/2022): Added automatically from request for surgery [id number] ST elevation myocardial infa rction (STEMI), unspecified artery 06/02/2022 Chest pain due to myocardial ischemia, unspecified ischemic chest pain type 06/02/2022 Encounters Date Type Department Care Team Description 09/17/2024 1:40 AM CRIMINOLOGY TEACHER - 09/17/2024 4:17 AM [facility] Emergency [facility] [address] [place] [address] Kyree Rossi MD Acute idiopathic pericarditis (HCC) (Primary Dx); Chest pain, unspecified type; Cough, unspecified type Discharge Disposition: Home or Self Care 09/17/2024 Travel from Last 3 Months Immunizations Name Administration Dates Next Due DTP, HISTORIC VACCINE 04/04/1996,08/20/1992,06/02,04/30/1992 HEP A PEDS 2 DOSE 08/26/2001 HEP B VACCINE, PED/ADOL 09/21/2000,04/04/1996 HIB VACCINE 08/20/1992,06/20/1992,04/30/1992 MMR VACCINE 04/04/1996,06/20/1992 POLIO OPV 04/04/1996,08/20/1992,06/20/1992 ,04/30/1992 Family History Medical History Relation Name Comments None Known Father None Known Mother Relation Name Status Comments Father Mother Social History Tobacco Use Types Packs/Day Years [...] housing, medical care, and heating? Hard 08/07/2023 [facility] Occupat ional Health - Occupational Stress [...] place to sleep or slept in a chcf (including now)? No 08/07/2023 Housing Stability Vital [...] Comments Blood Pressure 141/85 09/17/2024 4:00 AM CRIMINOLOGY TEACHER Pulse 87 09/17/2024 4:00 AM CRIMINOLOGY TEACHER Temperature 36.9 C (98.5 F) 09/17/2024 1:48 AM CRIMINOLOGY TEACHER Respiratory Rate 13 09/17/2024 4:02 AM CRIMINOLOGY TEACHER Oxygen Saturation 96% 09/17/2024 4:00 AM CRIMINOLOGY TEACHER Inhaled Oxygen Concentration - - Weight 72.6 kg (160 lb) 09/17/2024 1:45 AM CRIMINOLOGY TEACHER Height 180.3 cm (5' 11 ) 09/17/2024 1:45 AM CRIMINOLOGY TEACHER Body Mass Index 22.32 09/17/2024 1:45 AM CRIMINOLOGY TEACHER Plan of Treatment Health Maintenance Due Date Last Done Comments HEPATITIS B VACCINE (3 of 3 - 3-dose series) 11/16/2000 09/21/2000, 04/04/1996 DTAP/TDAP/TD VACCINES (5 - Tdap) 2002 04/04/1996, 08/20/1992, 06/20/1992, Additional history exists HIV SCREENING 2006 HEPATITIS C SCREENING 03/01/2009 COVID-19 VACCINE () 04/02/2024 INFLUENZA VACCINE (#1) 2024 DEPRESSION SCREENING 08/02/2024 ZOSTER VACCINE (1 of 2) 2041 HIB VACCINE Completed 08/20/1992, 06/02, 04/30/1992 HPV VACCINE Aged Out No longer eligi ble based on patient's age to complete this topic MENINGOCOCCAL (Group B) VACCINE Aged Out No longer eligible based on patient's age to complete this topic MENINGOCOCCAL VACCINE Aged Out No gila jorge eligible based on patient's age to complete this topic PNEUMOCOCCAL VACCINE Aged Out No long er eligible based on patient's age to complete this topic Procedures Procedure Name Priority Date/Time Associated Diagnosis Comments CARDIAC EKG ORDER 09/19/2024 1:4 4 PM CRIMINOLOGY TEACHER BLOOD TYPE VERIFICATION STAT 09/17/2024 2:53 AM CRIMINOLOGY TEACHER TROPONIN-I HIGH SENSITIVE REFLEX 1HOUR Timed 09/17/2024 2:53 AM CRIMINOLOGY TEACHER XR CHEST 2VW STAT 09/17/2024 2:07 AM CRIMINOLOGY TEACHER Chest pain, unspecified type SARS-COV-2 (COVID-19)+INFLU A+B PCR RAPID STAT 09/17/2024 2:02 AM CRIMINOLOGY TEACHER TYPE + SCREEN PANEL STAT 09/17/2024 1 :52 AM CRIMINOLOGY TEACHER B-TYPE NATRIURETIC PEPTIDE STAT 09/17/2024 1:52 AM CRIMINOLOGY TEACHER TROPONIN-I HIGH SENSITIVE BASELINE + 1HR STAT 09/17/2024 1:52 AM CRIMINOLOGY TEACHER PT-INR [facility] STAT 09/17/2024 1:52 AM CRIMINOLOGY TEACHER MAGNESIUM BLOOD STAT 09/17/2024 1:52 AM CRIMINOLOGY TEACHER COMPREHENSIVE METABOLIC PANEL STAT 09/17/2024 1:52 AM CRIMINOLOGY TEACHER CBC W AUTO DIFFERENTIAL STAT 09/17/2024 1:52 AM CRIMINOLOGY TEACHER EKG 12-LEAD STAT 09/17/2024 1:43 AM CRIMINOLOGY TEACHER Chest pain, unspecified type from Last 3 Months Results * CARDIAC EKG ORDER (09/19/2024 1:44 PM CRIMINOLOGY TEACHER) Narrative 09/19/2024 1:44 PM CRIMINOLOGY TEACHER Ordered by an unspecified provider. Scanned Document CARDIAC SERVICES ORD ERABLES * TROPONIN-I HIGH SENSITIVE REFLEX 1HOUR (09/17/2024 2:53 AM CRIMINOLOGY TEACHER) Troponin I High Sensitive 9 <=35 ng/L 09/17/2024 3:38 AM CRIMINOLOGY TEACHER [facility] Delta Troponin I HS 0 <6 ng/L 09/17/2024 3:38 AM CRIMINOLOGY TEACHER [facility] Blood BLOOD SPECIMEN / Unknown Venipuncture / Unknown 09/17/2024 2:53 AM CRIMINOLOGY TEACHER 09/17/2024 2:59 AM CRIMINOLOGY TEACHER Kyree Rossi MD LAB - CHEMISTRY ORDE TOM [facility] [address] [place] [address], [facility] [phone] * BLOOD TYPE VERIFICATION (09/17/2024 2:53 AM CRIMINOLOGY TEACHER) ABO Rh A POS 09/17/2024 3:2 2 AM CRIMINOLOGY TEACHER [facility] Blood Bank BLOOD SPECIMEN / Unknown Venipuncture / Unknown 09/17/2024 2:53 AM CRIMINOLOGY TEACHER 09/17/2024 3:00 AM CRIMINOLOGY TEACHER Kyree Rossi MD LAB - BLOOD BANK ORD ERABLES [facility] [address] [place] [address], [facility] [phone] * XR CHEST 2VW (09/17/2024 2:07 AM CRIMINOLOGY TEACHER) Anatomical Region Laterality Modality Chest Digital Radiogra phy 09/17/2024 2:08 AM CRIMINOLOGY TEACHER Narrative 09/17/2024 7:55 AM CRIMINOLOGY TEACHER PROCEDURE: XR CHEST 2VW, DATE/TIME OF EXAM: 09/17/2024 2:08 AM, LOCATION [facility] INDICATION: R07.9: Chest pain, unspecified type ADDITIONAL CLINICAL INFORMATION: Ordering Provider Reason For Exam: pna vs other Technologist Note: Additional: COMPARISON: None. FINDINGS/IMPRESSION: No focal consolidation, pleural effusion, or pneumothorax. The cardiomediastinal silhouette is normal. No acute osseous abnormality. > Dictated by Acacia Leal MD (resident caregiver) Mandi Osman MD have personally reviewed and interpreted this examination/study. > Interpreting Provider: Mandi Mccain MD on 09/17/2024 7:55 AM Procedure Note Mandi Mccain MD - 09/17/2024 PROCEDURE: XR CHEST 2VW, DATE/TIME OF EXAM: 09/17/2024 2:08 AM, LOCATION [facility] INDICATION: R07.9: Chest pain, unspecified type ADDITIONAL CLINICAL INFORMATION: Ordering Provider Reason For Exam: pna vs other Technologist Note: Additional: COMPARISON: None. FINDINGS/IMPRESSION: No focal consolidation, pleural effusion, or pneumothorax. The cardiomediastinal silhouette is normal. No acute osseousabnormality. > Dictated by Acacia Leal MD (resident caregiver) Mandi Osman MD have personally reviewed and interpreted this examination/study. > Interpreting Provider: Mandi Mccain MD on 09/17/2024 7:55 AM Kyree Rossi MD DIAGNOSTIC IMAGING O RDERABLES * SARS-COV-2 (COVID-19)+INFLU A+B PCR RAPID (09/17/2024 2:02 AM CRIMINOLOGY TEACHER) COVID-19 PCR Not detected Not detected 09/17/19 2:45 AM CRIMINOLOGY TEACHER [facility] Influenza A Rapid ROSALIND Not Detected Not Detected 09/17/2024 2:45 AM CRIMINOLOGY TEACHER [facility] Influenza B ROSALIND Rapid Not Detected Not Detected 09/17/2024 2:45 AM [facility] Microbiology SPECIMEN FROM NASOPHARYNGEAL STRUCTURE / Unknown Collection / Unknown 09/17/2024 2:02 AM CRIMINOLOGY TEACHER 09/17/2024 2:05 AM CRIMINOLOGY TEACHER [facility] - 09/17/2024 2:45 AM CRIMINOLOGY TEACHER Influenza assay performed by [employer]. [...] acid amplification assay performance was validated by [facility]. This test has been authorized [...] Rossi MD LAB - MICROBIOLOGY O RDERABLES Performing Organization Address [facility]/ZIP Co de Phone Number [facility] [address] [place] [address], [place] [phone] * PT-INR [facility] (09/17/2024 1:52 AM CRIMINOLOGY TEACHER) PT 13.3 12.1 - 14.8 Seconds 09/17/2024 2:18 AM CRIMINOLOGY TEACHER [facility] INR 1.0 See Comment 09/17/2024 2:18 AM CRIMINOLOGY TEACHER [facility] Comment:The suggested therap eutic range for standard coumadin (warfarin) therapy is an INR of 2.0-3.0. For high-risk patients (Mechanical Mitral Valve Prosthesis, etc.), the suggested prophylactic therapeutic range is an INR of 2.5-3.5. Blood BLOOD SPECIMEN / Unknown Venipuncture / Unknown 09/17/2024 1:52 AM CRIMINOLOGY TEACHER 09/17/2024 1:57 AM CRIMINOLOGY TEACHER Kyree Rossi MD LAB - COAGULATION OR DERABLES Performing Organization Address [facility] Co de Phone Number [address] [address], [place] [phone] * TROPONIN-I HIGH SENSITIVE BASELINE + 1HR (09/17/2024 1:52 AM CRIMINOLOGY TEACHER) Pathologist [facility] Troponin I High Sensitive 9 <=35 ng/L 09/17/2024 2:28 AM CRIMINOLOGY TEACHER [facility] Blood BLOOD SPECIMEN / Unknown Venipuncture / Unknown 09/17/2024 1:52 AM CRIMINOLOGY TEACHER 09/17/2024 1:57 AM CRIMINOLOGY TEACHER Kyree Rossi MD LAB - CHEMISTRY ORDE RABGHISLAINE Performing Organization Address City/[facility]/ZIP Co de Phone Number [address] [address], [place] [phone] * TYPE + SCREEN PANEL (09/17/2024 1:52 AM CRIMINOLOGY TEACHER) Pathologist [facility] Antibody Screen NEG 2:35 AM [facility] ABO Rh A POS 09/17/2024 2:35 AM [facility] Blood Bank BLOOD SPECIMEN / Unknown Venipuncture / Unknown 09/17/2024 1:52 AM CRIMINOLOGY TEACHER 09/17/2024 1:59 AM CRIMINOLOGY TEACHER Kyree Rossi MD LAB - BLOOD BANK ORD ERABLES [facility] [address] [place] [address], [facility] [phone] * (ABNORMAL) CBC W AUTO DIFFERENTIAL (09/17/2024 1:52 AM [facility]) [facility] WBC 5.1 4.0 - 10.7 x10E9/L 09/17/2024 2:01 AM [facility] RBC Count 4.62 4.30 - 5.80 x10E12/L 09/17/2024 2:01 AM [facility] Hemoglobin 13.2(L) 13.3 - 17.5 g/dL 09/17/2024 2:01 AM [facility] Hematocrit 39.2 38.7 - 51.1 % 09/17/2024 2:01 AM [facility] MCV 84.8 80.0 - 98.0 fL 09/17/2024 2:01 AM [facility] MCH 28.6 26.7 - 33.6 pg 09/17/2024 2:01 AM [facility] MCHC 33.7 31.7 - 36.3 g/dL 09/17/2024 2:01 AM [facility] RDW-CV 13.2 11.3 - 14.8 % 09/17/2024 2:01 AM [facility] Platelet Count 240 150 - 420 x10E9/L 09/17/2024 2:01 AM [facility] MPV 9.6 7.8 - 11.4 fL 09/17/2024 2:01 AM [facility] Neutrophil % 69.4 41.0 - 74.0 % 09/17/2024 2:01 AM [facility] Lymphocyte % 18.1 17.0 - 47.0 % 09/17/2024 2:01 AM [facility] Monocyte % 10.5 3.0 - 11.0 % 09/17/2024 2:01 AM [facility] Eosinophil % 1.4 0.0 - 7.0 % 09/17/2024 2:01 AM [facility] Basophil % 0.4 0.0 - 1.6 % 09/17/2024 2:01 AM [facility] Immature Granulocytes % 0.2 0.0 - 1.0 % 09/17/2024 2:01 AM [facility] Neutrophil Absolute 3.56 1.60 - 7.50 x10E9/L 09/17/2024 2:01 AM [facility] Lymphocyte Absolute 0.93(L) 1.00 - 4.40 x10E9/L 09/17/2024 2:01 AM [facility] Monocyte Absolute 0.54 0.15 - 1.00 x10E9/L 09/17/2024 2:01 AM [facility] Eosinophil Absolute 0.07 0.00 - 0.60 x10E9/L 09/17/2024 2:01 AM [facility] Basophil Absolute 0.02 0.00 - 0.13 x10E9/L 09/17/2024 2:01 AM [facility] Blood BLOOD SPECIMEN / Unknown Venipuncture / Unknown 09/17/2024 1:52 AM [facility] 09/17/2024 1:56 AM [facility] Kyree Rossi MD LAB - HEMATOLOGY ORD ERABLES [facility] [address] [place] [phone] [phone] * B-TYPE NATRIURETIC PEPTIDE (09/17/2024 1:52 AM [facility]) Pathologist [facility] BNP <10 <100 pg/mL 09/17/2024 2:43 AM [facility] Comment: A decision threshold of 100 pg/mL [...] Unknown Venipuncture / Unknown 09/17/2024 1:52 AM CRIMINOLOGY TEACHER 09/17/2024 2:09 AM [facility] Kyree Rossi MD LAB - CHEMISTRY CECIL SANTOS [facility] Organization Address City/State/ZIP Co de Phone Number [facility] [address] [place] [address], [facility] [phone] * (ABNORMAL) COMPREHENSIVE METABOLIC PANEL (09/17/2024 1:52 AM CRIMINOLOGY TEACHER) BUN 8 7 - 26 mg/dL 09/17/2024 2:24 AM [facility] Creatinine 1.03 0.71 - 1.16 mg/dL 09/17/2024 2:24 AM [facility] Sodium 142 136 - 145 mmol/L 09/17/2024 2:24 AM [facility] Potassium 3.8 3.5 - 4.5 mmol/L 09/17/2024 2:24 AM [facility] Chloride 110(H) 98 - 107 mmol/L 09/17/2024 2:24 AM [facility] CO2 23 22 - 29 mmol/L 09/17/2024 2:24 AM [facility] Glucose 128(H) 70 - 99 mg/dL 09/17/2024 2:24 AM [facility] Calcium 8.8 8.4 - 10.2 mg/dL 09/17/2024 2:24 AM [facility] Protein Total 7.0 6.0 - 8.3 g/dL 09/17/2024 2:24 AM [facility] Albumin 3.8 3.4 - 5.0 g/dL 09/17/2024 2:24 AM [facility] Bilirubin Total 0.3 0.2 - 1.2 mg/dL 09/17/2024 2:24 AM [facility] Alkaline Phosphatase 65 40 - 150 U/L 09/17/2024 2:24 AM [facility] ALT 35 5 - 55 U/L 09/17/2024 2:24 AM [facility] AST 29 5 - 34 U/L 09/17/2024 2:24 AM [facility] Anion Gap 9 6 - 16 09/17/2024 2:24 AM [facility] BUN/Creatinine Ratio 8 7 - 23 09/17/2024 2:24 AM [facility] Osmolality Calculated 294 275 - 295 mOsm/kg 09/17/2024 2:24 AM [facility] Albumin/Globulin Ratio 1.2 1.1 - 2.3 09/17/2024 2:24 AM [facility] eGFR by CKD-EPI >90 >=90 mL/min/1.7 3 m2 09/17/2024 2:24 AM [facility] Blood BLOOD SPECIMEN / Unknown Venipuncture / Unknown 09/17/2024 1:52 AM CRIMINOLOGY TEACHER 09/17/2024 1:57 AM CRIMINOLOGY TEACHER Kyree Rossi MD LAB - CHEMISTRY CECIL SANTOS [address] [address], [facility] [phone] * MAGNESIUM BLOOD (09/17/2024 1:52 AM CRIMINOLOGY TEACHER) Magnesium 1.8 1.6 - 2.6 mg/dL 09/17/2024 2:24 AM [facility] Blood BLOOD SPECIMEN / Unknown Venipuncture / Unknown 09/17/2024 1:52 AM CRIMINOLOGY TEACHER 09/17/2024 1:57 AM CRIMINOLOGY TEACHER Kyree Rossi MD LAB - CHEMISTRY CECIL SANTOS [facility] [address] [place] [address], [facility] [phone] * EKG 12-LEAD (09/17/2024 1:43 AM CRIMINOLOGY TEACHER) Ventricular Rate 80 BPM [facility] Atrial Rate 80 BPM [facility] P-R Interval 164 ms [facility] QRS Duration ms 116 ms [facility] Q-T Interval ms 356 ms [facility] QTC Calculation (Bezet) 410 ms [facility] Calculated P [place] 36 degrees [facility] Calculated R [place] 80 degrees [facility] Calculated T [place] 48 degrees [facility] Interpretation EKG NORMAL SINUS RHYTHM ST ELEVATION CONSIDER ANTEROLATERAL INJURY OR ACUTE INFARCT ST ELEVATION CONSIDER INFERIOR INJURY OR ACUTE INFARCT ACUTE AR / STEMI ABNORMAL ECG WHEN COMPARED WITH ECG OF 28-AUG-2023 22:14, T WAVE INVERSION NO LONGER EVIDENT IN INFERIOR LEADS NONSPECIFIC T WAVE ABNORMALITY HAS REPLACED INVERTED T WAVES IN LATERAL LEADS Confirmed by VALERIA PETERSON, TG ([id number]) on 09/23/2024 7:15:26 PM [facility] MUSE 09/17/2024 1:43 AM CRIMINOLOGY TEACHER 09/23/2024 7:15 PM CRIMINOLOGY TEACHER Kyree Rossi MD ECG ORDERABLES Performing Organization Address City/State/[facility] Co de Phone Number [facility] [place] from Last 3 Months Advance Directives * Full Code (Latest Code Status on File) Date Activated Date Inactivated Comments 08/29/2023 6:12 AM 08/29/2023 1:31 PM * Full Code Date Activated Date Inactivated Comments 08/07/2023 11:38 AM 08/10/2023 3:33 PM * Full Code Date Activated Date Inactivated Comments 06/02/2022 4:30 AM 06/03/2022 4:00 PM Care Teams Pizzamaker Relationship Specialty Start Date End Date None, Physician PCP - General 09/17/24
--- OUTSIDE RECORDS SUMMARY | 2024-10-09 21:41 | XMS_ITS | Clinical Summary ---
Author Organization [facility] [place] [facility] Address [address] [place] [address] Care Team Providers Care Mill Manager Name Role Phone No, Physician Primary Care Provider [phone] Allergies No known active allergies Medications colchicine (COLCRYS) 0.6 mg capsuleIndicati ons:pericarditi s Take 1 capsule (0.6 mg total) by mouth 2 (two) times a day 60 capsule 5 10/20/19 25 Active metoclopramide (REGLAN) 10 mg tablet Take 1 tablet (10 mg total) by mouth every 6 (six) hours as needed (abdominal pain, nausea) 30 tablet 4 10/02/19 25 Discontinu ed(Stop Taking at Discharge) colchicine (COLCRYS) 0.6 mg capsule Take 1 capsule (0.6 mg total) by mouth 2 (two) times a day 60 capsule 4 09/19/19 25 Discontinu ed(Reorder ) lidocaine (LIDODERM) 5 % Apply 1 patch topically daily Remove after 12 hours (need 12 hour patch free period). 15 patch 4 10/02/19 25 Discontinu ed(Stop Taking at Discharge) ibuprofen (ADVIL,MOTRIN) 600 mg tablet Take 1 tablet (600 mg total) by mouth every 6 (six) hours as needed for pain 20 tablet 4 10/02/19 25 Discontinu ed(Stop Taking at Discharge) pantoprazole DR (PROTONIX) 40 mg EC tabletIndicatio ns:GERD Take 1 tablet (40 mg total) by mouth daily 30 tablet 11 5 10/02/19 25 Discontinu ed(Stop Taking at Discharge) Active Problems Problem Noted Date Diagnosed Date History of iron deficiency 09/30/2024 Assessment & Plan (09/30/2024 9:09 AM BRANCH SALES AND SERVICE REPRESENTATIVE): Will try to obtain iron studies I asked SW to help w/ PCP followup Epigastric pain 09/30/2024 Assessment & Plan (09/30/2024 9:17 AM BRANCH SALES AND SERVICE REPRESENTATIVE): When asked where his pericarditis pain is, he points to the epigastrium. When I saw him in 11/2023, I had requested an H pylori stool antigen, which we were not able to obtain. -Try again to obtain H pylori antigen (especially w/ history of anemia) Depression 09/29/2024 Assessment & Plan (09/29/2024 1:17 PM BRANCH SALES AND SERVICE REPRESENTATIVE): As per psychiatry Will isidoroon a TSH Pericarditis 09/29/2024 Assessment & Plan (09/30/2024 9:10 AM BRANCH SALES AND SERVICE REPRESENTATIVE): Currently asymptomatic. Will obtain EKG. 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 Low threshold to restart. The chest pain (when present) he notes is epigastric so that may be a component of GERD Renal lesion 09/29/2024 Assessment & Plan (09/30/2024 9:09 AM BRANCH SALES AND SERVICE REPRESENTATIVE): 11/02/23 CT: There are 3 low-attenuation lesions in the right kidney which are incompletely evaluated on this single-phase study. Further evaluation with either pre and post contrast CT or pre and post contrast MR imaging is recommended. >>Will d/c w/ patient and recommend outpatient f/u w/ PCP. I asked SW re: need help for PCP Suicidal ideation 09/28/2024 Pericarditis 11/16/2023 Assessment & Plan (11/16/2023 4:41 PM CDT): Per medical team recs Assessment & Plan (11/17/2023 11:01 AM CDT): ?Chronic/insufficiently treated Pericarditis vs MSK pain w/ ??early repolarization He has a charted history of pericarditis, likely diagnosed in 2020. There has been EKG findings consistent w/ pericarditis (eg 08/14/23, 11/02/23 w/ diffuse ST elevation, w/ NE depression) and a negative ischemic workup (including as below, and multiple troponins). -12/15/20: EKG stress test negative for ischemia -12/14/20: TTE normal w/ no pericardial effusion -2022 TTE: overall normal, with trivial pericardial effusion Nevertheless, his pain is somewhat atypical for pericarditis (happens mostly at night, is worse w/ leaning forward, better w/ laying flat). Not reproducible w/ palpation. On ROS: not worse w/ food (GERD?) and no association w/ exercise. On further review of his EKGs, he also meets criteria for LVH (eg 11/02/23 EKG, 11/2020 EKG), and early repolarization is also on the Ddx for the appearance of his EKG. Notably, no significant pericardial effusion at the time of diagnosis (2020) nor on repeat Also, ESR/CRP have remained wnl or only slightly elevated (2022, 2023); I do not have access to labs prior, and D/C summary of the 11/2020 admission at OSH does not mention inflammatory markers. Other inflammatory markers (platelets, albumin, ferritin (granted may be confounded by iron deficiency) are also not elevated It looks like he follows w/ Dr Cat Choudhary (cardiology w/ [facility]), which he will follow up with Plan: -He should continue f/u w/ cardiology. At this point, he does not formally meet criteria for acute pericarditis (might be chronic vs poorly treated due to lack of adherence vs other causes -Will continue colchicine 0.6 BID here. I am ok w/ adding NSAIDs as well, though he does not seem interested -If able to, will send ESR/CRP. He had recent EKGs and has had no changes in symptoms, so hold off repeating it for now. -Alternate diagnosis can be entertained, including GERD, H pylori (also has anemia), less likely gastric ulcer, early repolarization. If Sx of ischemia develops (none so far), ischemic workup (repeat EKG, trop) should be obtained -Trial of lidocaine patch Update: H pylori stool antigen likely will not be obtained prior to discharge (likely today). Intrinsic factor & celiac labs processing. Ok for outpatient f/u Low serum vitamin B12 11/16/2023 Assessment & Plan (09/30/2024 9:11 AM BRANCH SALES AND SERVICE REPRESENTATIVE): B12 300, same as 11/2023. Will replete Assessment & Plan (11/16/2023 1:04 PM CDT): B12 levels 09/2023 were 300. No macrocytosis. Hgb 10. He is not vegetarian. -Will start supplementation. -See iron deficiency Iron deficiency anemia 11/16/2023 Assessment & Plan (11/16/2023 1:13 PM CDT): Ferritin 20, Tsat 8%, Hgb 10, consistent w/ iron deficiency anemia. No microcytosis. No Fhx of sicke cell. -Will start supplement w/ daily PO iron for at least 6 months -Will send a stool H pylori antigen (if able to obtain here) especially w/ the chronic epigastric pain. Hold PPIs here for now -Will need important PCP follow up +/- EGD/c/scope if this does not resolve -Will send workup for celiac (lower suspicion) and pernicious anemia. Asthma 11/16/2023 Assessment & Plan (11/16/2023 1:14 PM CDT): As per patient. No signs of acute exacerbation. Prn albuterol Microscopic hematuria 11/16/2023 Assessment & Plan (11/16/2023 1:20 PM CDT): He has stable microscopic hematuria on dipstick since at least 2022. Without gross hematuria, this seems unlikely to be causing the degree of iron deficiency anemia, but this is noteworthy enough and warrants PCP f/u +/- workup History of syphilis 11/16/2023 Assessment & Plan (09/30/2024 9:11 AM BRANCH SALES AND SERVICE REPRESENTATIVE): Late latent, appropriately treated. See my 11/15/24 note Assessment & Plan (11/16/2023 1:25 PM CDT): As per my colleague Dr Bynum (see 09/07/23 medicine c/s note): - Has history of Syphilis, treated in 2013 , -Treponema ab + and RPR 1:4 on 08/29/23 when tested at [facility] ED Contacted [facility] ( [place] ) for info To see if titers are coming down , left message with Nurse ( [phone]): Called back received, Patient diagnosed with late latent syphilis at [facility] in [place] on 10-11 : +RPR titer 1 :256, treponema -EIA positive Completed treatment with benzathine penicillin G x 3 doses given on November 21 2013, November 28 2013 and December 052013 So appropriately treated Lumbar strain, initial encounter 09/16/2023 Anemia 09/08/2023 Assessment & Plan (09/08/2023 8:05 PM BRANCH SALES AND SERVICE REPRESENTATIVE): -possible hx of GI bleed in June, refused EGD per OSH records Has been treated with PPI BID and then qday. Now on Pepcid Hgb 12.2 , MCV 89 Iron panel c/w ASTRID Iron 28, transferrin saturation 8 , Ferritin 20, B12 low 300 -agree with starting MVI with Iron that will also supplement B12 GERD (gastroesophageal reflux disease) Assessment & Plan (09/08/2023 5:10 AM BRANCH SALES AND SERVICE REPRESENTATIVE): -continue pepcid Adjustment disorders, with mixed anxiety and dep ressed mood 09/07/2023 Assessment & Plan (09/08/2023 4:53 AM BRANCH SALES AND SERVICE REPRESENTATIVE): Per Psychiatry Cannabis use disorder, moderate, dependence 01/2024 Assessment & Plan (09/08/2023 4:53 AM BRANCH SALES AND SERVICE REPRESENTATIVE): Per Psychiatry History of syphilis 09/07/2023 Assessment & Plan (09/08/2023 12:28 PM BRANCH SALES AND SERVICE REPRESENTATIVE): - Has history of Syphilis, treated in 2013 , -Treponema ab + and RPR 1:4 on 08/29/23 when tested at [facility] ED Contacted [facility] ( [place] ) for info To see if titers are coming down , left message with Nurse ( [phone]): Called back received, Patient diagnosed with late latent syphilis at [facility] in [place] on 10-11 : +RPR titer 1 :256, treponema -EIA positive Completed treatment with benzathine penicillin G x 3 doses given on November 21 2013, November 28 2013 and December 052013 -09-08-23 HIV 1/2 Abs +p24 Ag Non reactive COVID 05/22/2023 Assessment & Plan (05/22/2023 10:52 AM CDT): Patient did not receive any COVID vaccination. He was found incidentally to have a positive COVID test in the ED. Patient is asymptomatic. - continue to monitor - treat accordingly if symptoms arise. Adjustment disorder 05/22/2023 Assessment & Plan (11/17/2023 12:50 PM CDT): Good progress - feeling better. PLAN - continue voluntary admission - no medications necessary at this time. Patient is open to therapy. SW will help schedule this or provide appropriate resources for therapy - referred to therapy and he has an appointment tomorrow at 9AM. We will discharge him tomorrow to his appointment directly - appreciate medical team recs Assessment & Plan (11/16/2023 4:40 PM CDT): Mr. Escobar is a 33yo M with a hx of adjustment disorder, unspecified depressive disorder and MJ use, in addition to pericarditis and other medical co- morbidities, admitted for SI. Patient reports that his cousin was killed 4-5 days ago and he has been struggling since then. He reports low mood, and SI in addition to insomnia. This is consistent with past presentations and admission, all in the context of recent loss. We will keep the diagnosis of unspecified depressive disorder . Risk assessment: patient had recent SI. Admission is appropriate. PLAN - continue voluntary admission - no medications necessary at this time. Patient is open to therapy. SW will help schedule this or provide appropriate resources for therapy - we will discuss the risks and benefits of an SSRI - appreciate medical team recs Assessment & Plan (07/27/2023 10:01 AM BRANCH SALES AND SERVICE REPRESENTATIVE): Wes has been struggling for the last 4 years with unstable realtionships, unstable housing, difficulty finding and maintaining employment, and in and out of long-term/shelter/probation. He says that he is sad about his grandmother passing, but is no longer suicidal because that's not what my granny would've wanted . He says that getting a job and his own place are his priorities and was hoping that he could help with that while he was here. He does not want family notified where he is. I suspect that there is a personality disorder such as ASPD due to his h/o stealing, drinking at a young age, assault charges, and blaming/shirking responsbility. He is improving. He is in much better spirits. Voluntary Zoloft 50mg daily for depressive sxs. Med recs apprec; h/o pericarditis Swer to [facility] with follow-up and dispo Assessment & Plan (07/26/2023 9:44 AM BRANCH SALES AND SERVICE REPRESENTATIVE): Wes has been struggling for the last 4 years with unstable realtionships, unstable housing, difficulty finding and maintaining employment, and in and out of long-term/shelter/probation. He says that he is sad about his grandmother passing, but is no longer suicidal because that's not what my vanessany would've wanted . He says that getting a job and his own place are his priorities and was hoping that he could help with that while he was here. He does not want family notified where he is. I suspect that there is a personality disorder such as ASPD due to his h/o stealing, drinking at a young age, assault charges, and blaming/shirking responsbility. He is improving. Voluntary Zoloft 50mg daily for depressive sxs. Med recs apprec; h/o pericarditis Swer to [facility] with follow-up and dispo Assessment & Plan (07/25/2023 12:24 PM BRANCH SALES AND SERVICE REPRESENTATIVE): Wes has been struggling for the last 4 years with unstable realtionships, unstable housing, difficulty finding and maintaining employment, and in and out of long-term/shelter/probation. He says that he is sad about his grandmother passing, but is no longer suicidal because that's not what my granny would've wanted . He says that getting a job and his own place are his priorities and was hoping that he could help with that while he was here. He does not want family notified where he is. I suspect that there is a personality disorder such as ASPD due to his h/o stealing, drinking at a young age, assault charges, and blaming/shirking responsbility. Voluntary Zoloft 50mg daily for depressive sxs. Med recs apprec; h/o pericarditis Swer to [facility] with follow-up and dispo Assessment & Plan (05/22/2023 11:24 AM CDT): The patient reports a history, since the age of 29, of depressed mood most of the day nearly every day, anhedonia, insomnia, psychomotor retardation, fatigue, feelings of worthlessness/inappropriate guilt, poor concentration, and persistent suicidal ideation. These symptoms have caused clinically significant distress/impairment in social/occupational/other functioning. The patient endorses some symptoms that might be suggestive of laura, although history is a bit inconsistent, symptoms not severe enough to constitute laura, and timeline not consistent with manic episode. These symptoms are complicated by what the patient describes as command auditory hallucination and visual hallucinations which are distressing to the patient. These hallucinations only occur in the setting of mood episodes, and never occur without any mood episodes. He was started on Abilify and Depakote in [place], and reports that his visual and auditory hallucinations have resolved. - Start Sertraline 50mg, consider titrating - Obtain further information about the hallucinations - Haldol 5 p.o. or Haldol 5/Ativan 2 IM PRN for agitation - Suicide/elopement/safety precautions - Therapeutic milieu - q15 min safety checks Asthma 05/22/2023 Assessment & Plan (09/29/2024 1:14 PM BRANCH SALES AND SERVICE REPRESENTATIVE): Mild. Prn albuterol Assessment & Plan (09/08/2023 5:12 AM BRANCH SALES AND SERVICE REPRESENTATIVE): - no PFTs available , currently not in exacerbation, - PRN albuteral Assessment & Plan (07/25/2023 10:37 AM BRANCH SALES AND SERVICE REPRESENTATIVE): Intermittent. No symptoms. Uses albuterol prn at home Assessment & Plan (05/22/2023 10:53 AM CDT): Patient has a remote history of asthma. No acute episode of asthma for a long time. - albuterol p.r.n. if needed Personality disorder, unspecified 05/22/2023 Assessment & Plan (05/22/2023 11:22 AM CDT): Patient has a history of multiple arrests due to theft, altercations with civilians and police, altercations with . Did not have any symptoms suggestive of conduct disorder before the age of 16. Patient shows remorse towards his actions after they happened. He has a pattern of thinking everyone is against him and no one understands him, and that he sacrificed his life for everyone around him. As such, there are some symptoms that might be suggestive of personality traits, although inconclusive and not meeting criteria for any major personality disorder at this time. Antisocial personality disorder and borderline personality disorder on the differential but additional information will be required before making a diagnosis. - obtain additional information from patient's/collateral if patient consents Resolved Problems Problem Noted Date Diagnosed Date Resolved Date history of Pericarditis 09/07/202310/31 Assessment & Plan (09/08/2023 8:04 PM BRANCH SALES AND SERVICE REPRESENTATIVE): - patient has not been able to afford colchicine and reports benefit when getting doses in ED visits - continue colchicine 0.6 mg po BID and monitor for side effects, it should be held if nausea, vomiting, diarrhea -Hold NSAIDS as -he as not tolerated with significant Gi side effects -Patient was seen by Cardiology as outpatient on 09/02/2023 at [facility] ([facility]) and has an appointment on 09-21-23 for 2 D ECHO and follow up appointment scheduled again in November -records of outpatient visit requested as currently not available on Care- everywhere, per notes plan for ECHO on Sep 21 and send order for arcalyst Suicidal ideations 07/25/2023 Assessment & Plan (11/16/2023 12:50 PM CDT): TSH wnl Rest of plan as per psychiatry Assessment & Plan (07/25/2023 10:36 AM BRANCH SALES AND SERVICE REPRESENTATIVE): Pt w/ hx of depression and anxiety presents w/ SI after grandmother passing. Didn't have intent or plan. Denies SI now -mgt per primary Encounters Date Type Department Care Team Description 09/28/2024 2:49 AM BRANCH SALES AND SERVICE REPRESENTATIVE - 10/01/2024 11:55 AM BRANCH SALES AND SERVICE REPRESENTATIVE Hospital Encounter [facility] [address] [place] [address] Torres Armenta MD L'Ecuyer, MD Ivy Dixon, MD Toy Wilks, Irina Barlow MD Suicidal ideation (Primary Dx); Abdominal pain; Adjustment disorders, with mixed anxiety and depressed mood; 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]; Cannabis use disorder, moderate, dependence (CMS/HCC) (HCC) [F12.20]; Pericarditis [I31.9]; Personality disorder, unspecified (HCC) [F60.9]; Gastroesophageal reflux disease without esophagitis [K21.9] Discharge Disposition: Discharge to home or self care 09/19/2024 5:09 PM [facility] - 09/19/2024 5:50 PM [facility] Emergency [facility] Emergency Department [address] [place] [address] Kenny Curran MD Pericarditis (Primary Dx) Discharge Disposition: Discharge to home or self care 09/14/2024 12:06 AM [facility] - 09/14/2024 7:08 AM [facility] Emergency [facility] Emergency Department [address] [place] [phone] Alexis Santos MD Abdominal pain (Primary Dx) Discharge Disposition: Discharge to home or self care 09/13/2024 [facility]phone [facility] [address] [place] [address] Outpatient [facility] 4th Floor [address] [place] [address] Lara Herrera 09/08/2024 [facility]phone [facility] [address] [place] [address] 4th Floor [address] [place] [address] Lara Herrera 09/07/2024 1:21 AM [facility] - 09/07/2024 6:46 AM [facility] Emergency [facility] Emergency Department [address] [place] [phone] Wilmer Muro MD Chest pain, unspecified type (Primary Dx); Personality disorder, unspecified (HCC); Adjustment disorder, unspecified type; Asthma, unspecified asthma severity, unspecified whether complicated, unspecified whether persistent; Cannabis use disorder, moderate, dependence (HCC); Pain of finger of right hand Discharge Disposition: Discharge to home or self care from Last 3 Months Medical History Medical History Date Comments Pericarditis Asthma Depression with suicidal ideation 12/06/2023 Tobacco use Marijuana use Alcohol use Adjustment disorder Social History Tobacco Use Types Packs/Day Years Used Date Smoking Tobacco: Former Cigarettes Tobacco Cessation:Counseling Given: Not Answered Alcohol Use Standard Drinks/Week Comments Defer 0 (1 standard drink = 0.6 oz pur e alcohol) [facility] Utilities Answer Date Recorded In the past 12 months has th e [employer], oil, or water [employer] threatened to shut off services in your home? No 09/29/2024 Humiliation, Afraid, Rape, and Kick questionnair e Answer Date Recorded Within the last year, have y ou been afraid of your partner or ex-partner? No 09/29/2024 Within the last year, have y ou been humiliated or emotionally abused in other ways by your partner or ex-partner? No Within the last year, have y ou been kicked, hit, slapped, or otherwise physically hurt by your partner or ex-partner? No 09/29/2024 Within the last year, have y ou been raped or forced to have any kind of sexual activity by your partner or ex-partner? No 09/29/2024 Social Connection and Isolat ion Panel [NHANES] Answer Date Recorded In a typical week, how many times do you talk on the phone with family, friends, or neighbors? More than three times a week 09/29/2024 How often do you get togethe r with friends or relatives? More than three times a week 09/29/2024 How often do you attend chur ch or pentecostalism services? Never 09/29/2024 Do you belong to any clubs o r organizations such as baptism groups, unions, fraternal or athletic groups, or school groups? No 09/29/2024 How often do you attend meet ings of the clubs or organizations you belong to? Never 09/29/2024 Are you , , di vorced, , never , or living with a partner? 09/29/2024 AUDIT-C Answer Date Recorded Q1: How often do you have a drink containing alc ohol? Patient declined 09/29/2024 Q2: How many drinks containi ng alcohol do you have on a typical day when you are drinking? Patient declined 09/29/2024 Q3: How often do you have si x or more drinks on one occasion? Patient declined 09/29/2024 Overall Financial Resource Strain (CARDIA) Answe r Date Recorded How hard is it for you to pa y for the very basics like food, housing, medical care, and heating? Not very hard 09/29/2024 PHQ-2 Answer Date Recorded PHQ-2 Total Score (If total score is 3 or more points, staff should administer the PHQ-9) 2 09/07/2023 [facility] - Occupational Stress Questionnaire Answer Date Recorded Do you feel stress - tense, restless, nervous, or anxious, or unable to sleep at night because your mind is troubled all the time - these days? Only a little 09/29/2024 Exercise Vital Sign Answer Date Recorde d On average, how many days pe r week do you engage in moderate to strenuous exercise (like a brisk walk)? Patient declined On average, how many minutes do you engage in exercise at this level? Patient declined 09/29/2024 Hunger Vital Sign Answer Date Recorded Within the past 12 months, y ou worried that your food would run out before you got the money to buy more. Sometimes true Within the past 12 months, t he food you bought just didn't last and you didn't have money to get more. Sometimes true PRAPARE - Transportation Answer Date Re corded In the past 12 months, has l ack of transportation kept you from medical appointments or from getting medications? No 09/03 In the past 12 months, has l ack of transportation kept you from meetings, work, or from getting things needed for daily living? No 09/29/2024 Housing Stability Vital Sign Answer Pavel e Recorded In the last 12 months, was t here a time when you were not able to pay the mortgage or rent on time? Yes 10/02/2023 [address] of Places Lived in the Last Year Not on f ile 10/02/2023 In the last 12 months, was t here a time when you did not have a steady place to sleep or slept in a residential (including now)? Yes 10/02/2023 Housing Stability Vital Sign Answer Pavel e Recorded In the last 12 months, was t here a time when you were not able to pay the mortgage or rent on time? No 09/29/2024 Number of Times Moved in the Last Year Not on fi le 09/29/2024 At any time in the past 12 m [facility], were you homeless or living in a residential (including now)? No 09/29/2024 Personal Safety Answer Date Recorded Have you ever been in or are you currently in a harmful physical or emotional relationship or is someone making you feel afraid or unsafe? Denies 09/28/2024 Education Answer Date Recorded What is the highest level of school you have completed or the highest degree you have received? GED or equivalent 01/2024 Sex and Gender Information Value Date Recorded Sex Assigned at Not on file Legal Sex Male 5:49 PM [employer]AN[employer] SALES [employer] SERVICE REPRESENTATIVE Gender Identity Not on file Sexual Orientation Not on file Obstetrics History Last Filed Vital Signs Vital Sign Reading Time Taken Comments Blood Pressure 161/95 10/01/2024 7:56 AM BRANCH SALES AND SERVICE REPRESENTATIVE Pulse 75 10/01/2024 7:56 AM BRANCH SALES AND SERVICE REPRESENTATIVE Temperature 37.3 C (99.1 F) 10/01/2024 7:56 AM BR[employer]CH SALES AND SERVICE REPRESENTATIVE Respiratory Rate 20 10/01/2024 7:56 AM BRANCH SALES AND SERVICE REPRESENTATIVE Oxygen Saturation 97% 10/01/2024 7:56 AM BRANCH SALES AND SERVICE REPRESENTATIVE Inhaled Oxygen Concentration - - Weight 72.6 kg (160 lb 1.6 oz) 09/28/2024 2:30 P M BR[employer]CH SALES [employer] SERVICE REPRESENTATIVE Height 177.8 cm (5' 10 ) 09/28/2024 2:30 PM [employer]CH SALES AND SERVICE REPRESENTATIVE Body Mass Index 22.97 09/28/2024 2:30 PM BRANCH SALES AND SERVICE REPRESENTATIVE Plan of Treatment Health Maintenance Due Date Last Done Comments Hepatitis C Screening 1991 DTaP/Tdap/Td Vaccine (5 - Tdap) 2002 04/04/1996, 08/20/1992, 06/20/1992, Additional history exists Varicella Vaccines (1 of 2 - 13+ 2-dose series) 2004 Regular Well Visit/Exam 18-64 2009 Pneumococcal vaccine <65 (1 of 2 - PCV) 2010 Influenza Vaccine (#1) 2024 Depression Screening 09/06/2024 09/06/2023, 09/06/2023, 05/21/2023, Additional history exists Hepatitis B Screening Completed 09/21/2000, 996 HPV Vaccines Aged Out No longer eligi ble based on patient's age to complete this topic Procedures Procedure Name Priority Date/Time Associated Diagnosis Comments N. GONORRHOEAE/C. TRACHOMATIS AMPLIFICATION Routine 09/30/2024 11:18 AM BRANCH SALES AND SERVICE REPRESENTATIVE URINALYSIS, MICROSCOPIC ONLY STAT 09/28/2024 3:44 AM BRANCH SALES AND SERVICE REPRESENTATIVE DRUGS OF ABUSE SCREEN, URINE WITHOUT CONFIRMATION STAT 09/28/2024 3:44 AM BRANCH SALES AND SERVICE REPRESENTATIVE URINALYSIS AND REFLEX TO MICROSCOPIC STAT 09/28/2024 3:44 AM BRANCH SALES AND SERVICE REPRESENTATIVE IRON PROFILE W/ IBC STAT 09/28/2024 3 :15 AM BRANCH SALES AND SERVICE REPRESENTATIVE FERRITIN STAT 09/28/2024 3:15 AM BRANCH SALES AND SERVICE REPRESENTATIVE TSH STAT 09/28/2024 3:15 AM BRANCH SALES AND SERVICE REPRESENTATIVE VITAMIN B12 STAT 09/28/2024 3:15 AM BRANCH SALES AND SERVICE REPRESENTATIVE ETHANOL STAT 09/28/2024 3:15 AM BRANCH SALES AND SERVICE REPRESENTATIVE LIPID PANEL STAT 09/28/2024 1:27 AM BRANCH SALES AND SERVICE REPRESENTATIVE EGFR STAT 09/28/2024 1:27 AM BRANCH SALES AND SERVICE REPRESENTATIVE DIFFERENTIAL AUTO STAT 09/28/2024 1:2 7 AM BR[employer]CH SALES AND SERVICE REPRESENTATIVE LIPASE STAT 09/28/2024 1:27 AM BRANCH SALES AND SERVICE REPRESENTATIVE COMPREHENSIVE METABOLIC PANEL STAT 09/28/2024 1:27 AM BRANCH SALES AND SERVICE REPRESENTATIVE CBC WITH AUTO DIFFERENTIAL STAT 09/28/2024 1:27 AM BRANCH SALES AND SERVICE REPRESENTATIVE RPR STAT 09/28/2024 1:27 AM BRANCH SALES AND SERVICE REPRESENTATIVE HIV 1/2 ANTIBODY PLUS P24 ANTIGEN STAT 09/28/2024 1:27 AM BRANCH SALES AND SERVICE REPRESENTATIVE RESPIRATORY PATHOGEN PANEL STAT 09/27/2024 10:38 PM BRANCH SALES AND SERVICE REPRESENTATIVE TROPONIN I HIGH-SENSITIVITY 2-HOUR Timed 09/19/2024 5:19 PM BR[employer]CH SALES [employer] SERVICE REPRESENTATIVE XR CHEST PA LATERAL 2 VIEWS ED 09/19/2024 3:06 PM BR[employer]CH SALES AND SERVICE REPRESENTATIVE ECG 12-LEAD STAT 09/19/2024 3:00 PM BR[employer]CH SALES AND SERVICE REPRESENTATIVE EGFR STAT 09/19/2024 2:56 PM BR[employer]CH SALES AND SERVICE REPRESENTATIVE DIFFERENTIAL AUTO STAT 09/19/2024 2:5 6 PM BR[employer]CH SALES AND SERVICE REPRESENTATIVE TROPONIN I HIGH-SENSITIVITY SERIES (BASELINE, 2HR, 4HR, 6HR) STAT 09/19/2024 2:56 PM BRANCH SALES AND SERVICE REPRESENTATIVE COMPREHENSIVE METABOLIC PANEL STAT 09/19/2024 2:56 PM BRANCH SALES AND SERVICE REPRESENTATIVE CBC WITH AUTO DIFFERENTIAL STAT 09/19/2024 2:56 PM BRANCH SALES AND SERVICE REPRESENTATIVE EGFR Routine 09/14/2024 4:26 AM BRANCH SALES AND SERVICE REPRESENTATIVE LIPASE STAT 09/14/2024 4:26 AM BRANCH SALES AND SERVICE REPRESENTATIVE COMPREHENSIVE METABOLIC PANEL Routine 09/14/2024 4:26 AM BRANCH SALES AND SERVICE REPRESENTATIVE CBC WITHOUT DIFFERENTIAL Routine 09/14/2024 4:26 AM BRANCH SALES AND SERVICE REPRESENTATIVE URINALYSIS, MICROSCOPIC ONLY Routine 09/14/2024 1:16 AM BRANCH SALES AND SERVICE REPRESENTATIVE URINALYSIS AND REFLEX TO MICROSCOPIC AND CULTURE Routine 09/14/2024 1:16 AM BRANCH SALES AND SERVICE REPRESENTATIVE POCUS CARDIAC 09/07/2024 3:41 AM BRANCH SALES AND SERVICE REPRESENTATIVE TROPONIN I HIGH-SENSITIVITY 4-HOUR Timed 09/07/2024 2:19 AM BRANCH SALES AND SERVICE REPRESENTATIVE TROPONIN I HIGH-SENSITIVITY 2-HOUR Timed 09/06/2024 10:53 PM BRANCH SALES AND SERVICE REPRESENTATIVE ECG 12-LEAD STAT 09/06/2024 9:44 PM BR[employer]CH SALES AND SERVICE REPRESENTATIVE EGFR STAT 09/06/2024 9:13 PM BRANCH SALES AND SERVICE REPRESENTATIVE DIFFERENTIAL AUTO STAT 09/06/2024 9:1 3 PM BRANCH SALES AND SERVICE REPRESENTATIVE TROPONIN I HIGH-SENSITIVITY SERIES (BASELINE, 2HR, 4HR, 6HR) STAT 09/06/2024 9:13 PM BRANCH SALES AND SERVICE REPRESENTATIVE COMPREHENSIVE METABOLIC PANEL STAT 09/06/2024 9:13 PM BRANCH SALES AND SERVICE REPRESENTATIVE CBC WITH AUTO DIFFERENTIAL STAT 09/06/2024 9:13 PM BRANCH SALES AND SERVICE REPRESENTATIVE XR FINGER RIGHT 2 OR MORE VIEWS ED 09/06/2024 8:43 PM BR[employer]CH SALES AND SERVICE REPRESENTATIVE XR CHEST PA LATERAL 2 VIEWS ED 09/06/2024 8:43 PM BR[employer]CH SALES AND SERVICE REPRESENTATIVE from Last 3 Months Results * N. gonorrhoeae/C. trachomatis Amplification Urine (09/30/2024 11:18 AM BRANCH SALES AND SERVICE REPRESENTATIVE) [facility] C. trachomatis Not Detected Not Detected [facility] N. gonorrhoeae Not Detected Not Detected [facility] Comment: Interpretive Data This assay detects Chlamydia trachomatis and Neisseria gonorrhoeae by nucleic acid amplification testing (NAAT). This assay has been cleared by the [place] Food and Drug administration. The performance characteristics of this test have been verified by the [facility] Molecular Infectious Disease laboratory. The performance characteristics of this test have not been evaluated in individuals less than 14 years of age. Current Interpretive Data last revised 2023. Urine (None) 09/30/2024 11:1 8 AM [employer]CH SALES AND SERVICE REPRESENTATIVE 10/01/2024 2:05 PM BRANCH SALES AND SERVICE REPRESENTATIVE us Max Lira MD LAB MICROBIOLOGY - GENERA L ORDERABLES Final Result [facility] Department [place] [address] [facility] * (ABNORMAL) Urinalysis reflex to microscopic (09/28/2024 3:44 AM BRANCH SALES AND SERVICE REPRESENTATIVE) Color, ur Yellow Yellow Clarity, ur Clear Clear [facility] Specific gravity, ur 1.033(H) 1.003 - 1.030 [facility] pH, urine 6.0 [facility] Comment: Interpretive Data U rine pH is affected by diet, medications, systemic acid-base disturbances, and renal tubular function. pH may affect urinary stone formation. For example, urine pH below 6.0 may help reduce the tendency for calcium phosphate stones and pH greater than 6.0 may reduce the tendency for uric acid stone formation. Source: [facility] Current Interpretive Data was last revised on 2017 Protein, ur ql 1+(A) Negative [facility] Glucose, ur ql Negative Negative [facility] Ketones, ur Trace Negative [facility] Bilirubin, ur Negative Negative [facility] Blood, ur 1+(A) Negative [facility] Urobilinogen, ur <2.0 <2.0 mg/dL [facility] Nitrite, ur Negative Negative [facility] Leukocyte esterase, ur Negative Negative [facility] UA reflex comment Reflex to microscopic UA will be performed. [facility] Urine 09/28/2024 3:44 AM BR[employer]CH SALES AND SERVICE REPRESENTATIVE 09/28/2024 3:52 AM BRANCH SALES AND SERVICE REPRESENTATIVE Torres Armenta MD LAB URINE ORDERABLES Vickie arreola Result [facility] Department [place] [address] * (ABNORMAL) Drugs of Abuse Screen, Urine without Confirmation (09/28/2024 3:44 AM BRANCH SALES AND SERVICE REPRESENTATIVE) Amphetamine, ur Not Detected [facility] 500ng/mL Comment: Interpretive Data - Amphetamines: Samples containing greater than 500 ng/mL d-methamphetamine or other cross-reacting amphetamine compounds are reported as positive. Amphetamine immunoassays are subject to significant false positive rates due to cross-reactivity of non-amphetamine drugs. Confirmatory testing required for definitive results. Current Interpretive Data was last reviewed 2023. Barbiturates, ur Not Detected CutOff 200ng/mL [facility] Comment: Interpretive Data - Barbiturates: Samples containing greater than 200 ng/mL secobarbital or other cross-reacting barbiturate compounds are reported as positive. False positive and false negative results are possible. Confirmatory testing required for definitive results. Current Interpretive Data was last reviewed 2023. Benzodiazepines, ur Not Detected CutOff 100ng/mL [facility] Comment: Interpretive Data - Benzodiazepines: Samples containing greater than 100 ng/mL nordiazepam or other cross-reacting compounds are reported as positive. False positive and false negative results are possible. Confirmatory testing required for definitive results. Current Interpretive Data was last reviewed 2023. Cannabinoids, ur Screen Positive, presumptive (A) CutOff 50 ng/mL [facility] Comment: Interpretive Data - Cannabinoids: Samples containing greater than 50 ng/mL delta-9 THC -COOH or other cross- reacting compounds are reported as positive. False positive and false negative results are possible. Confirmatory testing required for definitive results. Current Interpretive Data was last reviewed 2023. Cocaine, ur Not Detected CutOff 150ng/mL [facility] Comment: Interpretive Data - Cocaine: Samples containing greater than 150 ng/mL benzoylecgonine or other cross- reacting compounds are reported as positive. False positive and false negative results are possible. Confirmatory testing required for definitive results. Current Interpretive Data was last reviewed 2023. Fentanyl, Ur Not Detected CutOff 5 ng/mL [facility] Comment: Interpretive Data - Fentanyl: Samples containing greater than 5 ng/mL norfentanyl, fentanyl, or other cross-reacting fentanyl compounds are reported as positive. False positive and false negative results are possible. Confirmatory testing required for definitive results. Current Interpretive Data was last reviewed 2023. Methadone, ur Not Detected CutOff 300ng/mL [facility] Comment: Interpretive Data - Methadone: Samples containing greater than 300 ng/mL d,l-methadone or other cross-reacting compounds are reported as positive. False positive and false negative results are possible. Confirmatory testing required for definitive results. Current Interpretive Data was last reviewed 2023. Opiates, ur Not Detected CutOff 300ng/mL [facility] Comment: Interpretive Data - Opiates: Samples containing greater than 300 ng/mL morphine or other cross-reacting compounds are reported as positive. False positive and false negative results are possible. Confirmatory testing required for definitive results. Current Interpretive Data was last reviewed 2023. Oxycodone, ur Not Detected CutOff 100ng/mL [facility] Comment: Interpretive Data - Oxycodone: Samples containing greater than 100 ng/mL oxycodone or other cross-reacting compounds are reported as positive. False positive and false negative results are possible. Confirmatory testing required for definitive results. Current Interpretive Data was last reviewed 2023. Phencyclidine, ur Not Detected CutOff 25 ng/mL [facility] Comment: Interpretive Data - Phencyclidine: Samples containing greater than 25 ng/mL phencyclidine or other cross-reacting compounds are reported as positive. False positive and false negative results are possible. Confirmatory testing required for definitive results. Current Interpretive Data was last reviewed 2023. Urine Creatinine 460 mg/dL [facility] Comment: Interpretive Data Urine Creatinine: < 10 mg/dL is extremely dilute = or > 10 but < 20 mg/dL is dilute = or > 20 mg/dL is normal Current Interpretive Data was last revised on 2017. Urine 09/28/2024 3:44 AM BRANCH SALES AND SERVICE REPRESENTATIVE 09/28/2024 4:00 AM BRANCH SALES AND SERVICE REPRESENTATIVE Narrative [facility] - 09/28/2024 4:43 AM BRANCH SALES AND SERVICE REPRESENTATIVE Drug of Abuse screening is performed by immunoassay for medical purposes only. This is not to be used for Pain Management purposes. Molly Haynes MD LAB URINE ORDERABL ES Edited Result - Final [facility] Department [place] [address] * (ABNORMAL) Urinalysis, microscopic only (09/28/2024 3:44 AM BRANCH SALES AND SERVICE REPRESENTATIVE) WBC, ur 0-5 0 - 5 /HPF RBC, ur 0-2 0 - 2 /HPF [facility] Bacteria, ur 1+(A) [facility] Yeast, ur TRACE [facility] Mucous, ur Present(A) [facility] Amorphous crystals, ur 1+(A) [facility] Urine 09/28/2024 3:44 AM BR[employer]CH SALES AND SERVICE REPRESENTATIVE 09/28/2024 3:52 AM BRANCH SALES AND SERVICE REPRESENTATIVE Torres Armenta MD LAB URINE ORDERABLES Vickie l Result Performing Organization Address [facility] Co de Phone Number [facility] [place] [address] * Iron profile w/ IBC (09/28/2024 3:15 AM BRANCH SALES AND SERVICE REPRESENTATIVE) Iron See Comment 50 - 150 mcg/dL Comment: Credited; Hemolyzed Specimen Telephone report made to: [facility] on 09/29/2024 21:39:47 BRANCH SALES AND SERVICE REPRESENTATIVE by rxy . TIBC See Comment 250 - 400 mcg/dL [facility] Comment: Credited; Hemolyzed Specimen Telephone report made to: [facility] on 09/29/2024 21:39:47 BRANCH SALES AND SERVICE REPRESENTATIVE by rxy . Unable to calculate exact result. Transferrin saturation See Comment 20 - 50 % [facility] Comment: Credited; Hemolyzed Specimen Telephone report made to: [facility] on 09/29/2024 21:39:47 BRANCH SALES AND SERVICE REPRESENTATIVE by rxy . Unable to calculate exact result. Blood 09/28/2024 3:15 AM BRANCH SALES AND SERVICE REPRESENTATIVE 09/28/2024 3:25 AM BRANCH SALES AND SERVICE REPRESENTATIVE Destiny Ch MD LAB BLOOD ORDERABLES Final R esult Performing Organization Address [facility] Co de Phone Number [facility] Department [place] [address] * TSH (09/28/2024 3:15 AM BRANCH SALES AND SERVICE REPRESENTATIVE) Thyroid Stimulating Hormone 0.76 0.30 - 4.20 mcIUnit/mL Blood 09/28/2024 3:15 AM BRANCH SALES AND SERVICE REPRESENTATIVE 09/28/2024 3:25 AM BRANCH SALES AND SERVICE REPRESENTATIVE Destiny Ch MD LAB BLOOD ORDERABLES Final R esult Performing Organization Address [facility] Co de Phone Number [facility] [place] [address] * Ferritin (09/28/2024 3:15 AM BRANCH SALES AND SERVICE REPRESENTATIVE) Pathologist [facility] Ferritin See Comment 30 - 400 ng/mL Comment: Credited; Hemolyzed Specimen Telephone report made to: destiny on 09/29/2024 21:39:02 BRANCH SALES AND SERVICE REPRESENTATIVE by RXY . Blood 09/28/2024 3:15 AM BRANCH SALES AND SERVICE REPRESENTATIVE 09/28/2024 3:25 AM BRANCH SALES AND SERVICE REPRESENTATIVE us Destiny Ch MD LAB BLOOD ORDERABLES Final R esult Performing Organization Address [facility] Co de Phone Number [facility] [place] [address] * Vitamin B12 (09/28/2024 3:15 AM BRANCH SALES AND SERVICE REPRESENTATIVE) [facility] Vitamin B12 307 230 - 1,250 pg/mL Blood 09/28/2024 3:15 AM BRANCH SALES AND SERVICE REPRESENTATIVE 09/28/2024 3:25 AM BRANCH SALES AND SERVICE REPRESENTATIVE us Destiny Ch MD LAB BLOOD ORDERABLES Final R esult Performing Organization Address [facility] Co de Phone Number [facility] Department [place] [address] * Ethanol (09/28/2024 3:15 AM BRANCH SALES AND SERVICE REPRESENTATIVE) Pathologist [facility] Ethanol <10 <=10 mg/dL Comment: Hemolyzed; result may be falsely decreased Interpretive Data Legal limit of intoxication > or = 80 mg/dL Levels > or = 400 mg/dL are potentially TOXIC. Current interpretive data was last revised on 2018. Blood 09/28/2024 3:15 AM BRANCH SALES AND SERVICE REPRESENTATIVE 09/28/2024 3:25 AM BRANCH SALES AND SERVICE REPRESENTATIVE us Molly Haynes MD LAB BLOOD ORDERABL ES Final Result Performing Organization Address [facility] Co de Phone Number [facility] Department [place] [address] * eGFR (09/28/2024 1:27 AM BRANCH SALES AND SERVICE REPRESENTATIVE) eGFR 80 >=60 mL/min/1. 73 m2 Comment: Interpretive Data Reference Interval Normal >/= 90 mL/min/1.73m2 Mildly decreased* 60 - 89 mL/min/1.73m2 Mildly to moderately decreased 45 - 59 mL/min/1.73m2 Moderately to severely decreased 30 - 44 mL/min/1.73m2 Severely decreased 15 - 29 mL/min/1.73m2 Kidney Failure < 15 mL/min/1.73m2 *Relative to young adult level Estimated glomerular filtration rate is determined by the 2020 CKD-EPI equation recommended by the National Kidney Foundation (A Unifying Approach to GFR Estimation: Recommendations of the NKF-ASK Task Force on Reassessing the Inclusion of Race in Diagnosing Kidney Disease, JASN 2020). The CKD-EPI equation should not be used for patients with unstable renal function and has not been validated in children and those over 70. Current interpretive data was last reviewed 2021. Blood 09/28/2024 1:27 AM BRANCH SALES AND SERVICE REPRESENTATIVE 09/28/2024 1:45 AM BRANCH SALES AND SERVICE REPRESENTATIVE Torres Armenta MD LAB BLOOD ORDERABLES Vickie l Result Performing Organization Address City/[facility] Co de Phone Number [facility] Department [place] [address] * (ABNORMAL) Differential, auto (09/28/2024 1:27 AM BRANCH SALES AND SERVICE REPRESENTATIVE) Pathologist [facility] Neutrophil abs 5.7 1.5 - 6.5 K/cumm Imm gran abs 0.0 0.0 - 0.1 K/cumm [facility] Lymphocyte abs 1.8 0.8 - 3.3 K/cumm [facility] Monocyte abs 1.0(H) 0.2 - 0.8 K/cumm [facility] Eosinophil abs 0.1 0.0 - 0.5 K/cumm [facility] Basophil abs 0.0 0.0 - 0.1 K/cumm [facility] Neutrophil pct 65.2 % [facility] Comment: Interpretive Data Percent cell count reference ranges are not reported, since discordance with absolute values may lead to misinterpretation of CBC data. Current Interpretive Data was last revised on 2017. Imm gran pct 0.5 % [facility] Comment: Interpretive Data Percent cell count reference ranges are not reported, since discordance with absolute values may lead to misinterpretation of CBC data. Current Interpretive Data was last revised on 2017. Lymphocyte pct 21.2 % [facility] Comment: Interpretive Data Percent cell count reference ranges are not reported, since discordance with absolute values may lead to misinterpretation of CBC data. Current Interpretive Data was last revised on 2017. Monocyte pct 11.6 % [facility] Comment: Interpretive Data Percent cell count reference ranges are not reported, since discordance with absolute values may lead to misinterpretation of CBC data. Current Interpretive Data was last revised on 2017. Eosinophil pct 1.4 % [facility] Comment: Interpretive Data Percent cell count reference ranges are not reported, since discordance with absolute values may lead to misinterpretation of CBC data. Current Interpretive Data was last revised on 2017. Basophil pct 0.1 % [facility] Comment: Interpretive Data Percent cell count reference ranges are not reported, since discordance with absolute values may lead to misinterpretation of CBC data. Current Interpretive Data was last revised on 2017. Blood 09/28/2024 1:27 AM BRANCH SALES AND SERVICE REPRESENTATIVE 09/28/2024 1:45 AM BRANCH SALES AND SERVICE REPRESENTATIVE us Torres Armenta MD LAB BLOOD ORDERABLES Vickie arreola Result [facility] Department [place] [address] * HIV 1/2 Antibody plus p24 Antigen Blood (09/28/2024 1:27 AM BRANCH SALES AND SERVICE REPRESENTATIVE) HIV 1/2 ab + p24 ag Nonreactive Nonreactive Comment:Nonreactive for HIV- 1 antigen and HIV-1/HIV-2 antibodies. No laboratory evidence of HIV infection. If acute HIV infection is suspected, consider testing for HIV-1 RNA. Current interpretive data was last revised on 22. Blood 09/28/2024 1:27 AM BRANCH SALES AND SERVICE REPRESENTATIVE 09/28/2024 1:45 AM BRANCH SALES AND SERVICE REPRESENTATIVE us Destiny Ch MD LAB MICROBIOLOGY - GENERAL O RDERABLES Final Result [facility] Department [place] [address] * CBC with auto differential (09/28/2024 1:27 AM BRANCH SALES AND SERVICE REPRESENTATIVE) [facility] WBC 8.7 3.8 - 9.9 K/cumm Hgb 13.9 13.0 - 17.5 g/dL [facility] Hct 42.6 38.9 - 50.3 % [facility] Plt 270 150 - 400 K/cumm [facility] MPV 10.0 9.1 - 12.3 fL [facility] RBC 4.87 4.30 - 5.80 M/cumm [facility] MCV 87.5 81.3 - 96.4 fL [facility] MCH 28.5 27.1 - 33.3 pg [facility] MCHC 32.6 32.3 - 35.7 g/dL [facility] RDW CV 13.2 11.1 - 14.9 % [facility] RDW SD 42.5 35.7 - 48.1 fL [facility] NRBC abs 0.00 0.00 - 0.01 K/cumm [facility] Blood Venous blood specimen / Unknown 09/28/2024 1:27 AM BRANCH SALES AND SERVICE REPRESENTATIVE 09/28/2024 1:45 AM BRANCH SALES AND SERVICE REPRESENTATIVE us Torres Armenta MD LAB BLOOD ORDERABLES Vickie l Result [facility] Department [place] [address] * RPR Blood (09/28/2024 1:27 AM BRANCH SALES AND SERVICE REPRESENTATIVE) RPR Nonreactive Nonreactive Blood 09/28/2024 1:27 AM BRANCH SALES AND SERVICE REPRESENTATIVE 09/28/2024 1:50 AM BRANCH SALES AND SERVICE REPRESENTATIVE us Destiny Ch MD LAB MICROBIOLOGY - GENERAL O RDERABLES Final Result [facility] Department [place] [address] * Lipase (09/28/2024 1:27 AM BRANCH SALES AND SERVICE REPRESENTATIVE) Pathologist [facility] Lipase 27 10 - 99 Units/L Blood Venous blood specimen / Unknown 09/28/2024 1:27 AM BRANCH SALES AND SERVICE REPRESENTATIVE 09/28/2024 1:45 AM BRANCH SALES AND SERVICE REPRESENTATIVE us Torres Armenta MD LAB BLOOD ORDERABLES Vickie l Result [facility] Department [place] [address] * Lipid panel (09/28/2024 1:27 AM BRANCH SALES AND SERVICE REPRESENTATIVE) Pathologist [facility] Cholesterol 163 30 - 199 mg/dL Comment: Interpretive Data Ages < or = 19 years Acceptable: <170 mg/dL Borderline high: 170-199 mg/dL High: >or= 200 mg/dL Ages > or = 20 years Desirable: <200 mg/dL Borderline high: 200-239 mg/dL High: >or= 240 mg/dL Literature References: 1. Expert Panel on Integrated Guidelines for Cardiovascular Health and Risk Reduction in Children and Adolescents. Pediatrics 2011;128:S213 2. NCEP Expert Panel. Circulation 2004;110:227 Current Interpretive Data was last revised on 2018. Triglycerides 75 <=149 mg/dL [facility] Comment: Interpretive Data Ages < or = 9 years Acceptable: <75 mg/dL Borderline high: 75-99 mg/dL High: >or= 100 mg/dL Ages 10 to 20 years Acceptable: <90 mg/dL Borderline high: 90-129 mg/dL High: >or= 130 mg/dL Ages > or = 20 years Desirable: <150 mg/dL Borderline high: 150-199 mg/dL High: 200-499 mg/dL Very high: >or= 499 mg/dL Literature References: 1. Expert Panel on Integrated Guidelines for Cardiovascular Health and Risk Reduction in Children and Adolescents. Pediatrics 2011;128:S213 2. NCEP Expert Panel. Circulation 2004;110:227 Current Interpretive Data was last revised on 2018. HDL 57 >=40 mg/dL [facility] Comment: Interpretive Data Ages < or = 19 years Acceptable: >45 mg/dL Borderline low: 40-45 mg/dL Low: <40 mg/dL Ages > or = 20 years Desirable: >or= 60 mg/dL Low: <40 mg/dL Literature References: 1. Expert Panel on Integrated Guidelines for Cardiovascular Health and Risk Reduction in Children and Adolescents. Pediatrics 2011;128:S213 2. NCEP Expert Panel. Circulation 2004;110:227 Current Interpretive Data was last revised on 2018. LDL, calculated 92 <=129 mg/dL [facility] Comment: Interpretive Data Ages < or = 19 years Acceptable: <110 mg/dL Borderline high: 110-129 mg/dL High: >or= 130 mg/dL Ages > or = 20 years Optimal: <100 mg/dL Near optimal: 100-129 mg/dL Borderline high: 130-159 mg/dL High: >160 mg/dL Calculated using the Aaron LDL-C estimating equation. This equation was implemented on 2024. Prior to this date LDL-C was estimated using the Friedewald equation. Literature References: 1. Expert Panel on Integrated Guidelines for Cardiovascular Health and Risk Reduction in Children and Adolescents. Pediatrics 2011;128:S213 2. NCEP Expert Panel. Circulation 2004;110:227 3. Aaron Mckinnon al. REVA Cardiol. 2019November 30;5(5):540-548. doi: [email or web address] Current Interpretive Data was last revised on 2024. Non-HDL Cholesterol 106 mg/dL [facility] Comment: Interpretive Data Ages < or = 19 years Acceptable: <120 mg/dL Borderline high: 120-144 mg/dL High: >145 mg/dL Ages > or = 20 years When triglycerides are >200 mg/dL, Non-HDL cholesterol is a secondary target of therapy with treatment goals that are 30 mg/dL greater than the LDL cholesterol target. Literature References: 1. Expert Panel on Integrated Guidelines for Cardiovascular Health and Risk Reduction in Children and Adolescents. Pediatrics 2011;128:S213 2. NCEP Expert Panel. Circulation 2004;110:227 Current Interpretive Data was last revised on 2018. Chol/HDL ratio 3 [facility] Blood 09/28/2024 1:27 AM BRANCH SALES AND SERVICE REPRESENTATIVE 09/28/2024 1:45 AM BRANCH SALES AND SERVICE REPRESENTATIVE us Destiny Ch MD LAB BLOOD ORDERABLES Final R esult [facility] Department [place] [address] * Comprehensive metabolic panel (09/28/2024 1:27 AM BRANCH SALES AND SERVICE REPRESENTATIVE) Sodium 143 135 - 145 mmol/L Potassium, pl 4.6 3.3 - 4.9 mmol/L [facility] Chloride 106 97 - 110 mmol/L [facility] CO2 29 22 - 32 mmol/L [facility] Anion gap 8 2 - 15 mmol/L [facility] BUN 10 6 - 25 mg/dL [facility] Creatinine 1.22 0.80 - 1.30 mg/dL [facility] Glucose 100 70 - 199 mg/dL [facility] Comment: Interpretive Data Fasting glucose >/= 126 mg/dl is diagnostic for diabetes. Fasting is defined as no caloric intake for at least 8 hours. Fasting glucose between 100 mg/dl to 125 mg/dl is diagnostic of prediabetes. In a patient with classic symptoms of hyperglycemia or hyperglycemic crisis, a random glucose >/= 200 mg/dl is diagnostic for diabetes. In the absence of unequivocal hyperglycemia, results should be confirmed by repeat testing. The classification and Diagnosis of Diabetes Diabetes Care 202; 46: S19-S40. Current interpretive data was last revised 2022. Calcium 9.7 8.5 - 10.3 mg/dL [facility] Bilirubin, total 0.2 0.1 - 1.2 mg/dL [facility] Protein, pl 7.7 6.5 - 8.5 g/dL [facility] Albumin 3.9 3.5 - 5.0 g/dL [facility] Alk phos 74 40 - 130 Units/L [facility] ALT 22 7 - 55 Units/L [facility] AST 24 10 - 50 Units/L [facility] Blood 09/28/2024 1:27 AM BRANCH SALES AND SERVICE REPRESENTATIVE 09/28/2024 1:45 AM BRANCH SALES AND SERVICE REPRESENTATIVE Torres Armenta MD LAB BLOOD ORDERABLES Vickie arreola Result [facility] Department [place] [address] * Respiratory pathogen panel Nasopharyngeal (09/27/2024 10:38 PM BRANCH SALES AND SERVICE REPRESENTATIVE) Pathologist [facility] Influenza A RNA Not Detected Not Detected Influenza B RNA Not Detected Not Detected [facility] RSV RNA Not Detected Not Detected [facility] COVID-19 RNA Not Detected Not Detected [facility] Coronavirus 229E RNA Not Detected Not Detected [facility] Coronavirus HKU1 RNA Not Detected Not Detected [facility] Coronavirus NL63 RNA Not Detected Not Detected [facility] Coronavirus OC43 RNA Not Detected Not Detected [facility] Adenovirus DNA Not Detected Not Detected [facility] Metapneumovirus RNA Not Detected Not Detected [facility] Rhinovirus/Enterov irus RNA Not Detected Not Detected [facility] Parainfluenza 1 RNA Not Detected Not Detected [facility] Parainfluenza 2 RNA Not Detected Not Detected [facility] Parainfluenza 3 RNA Not Detected Not Detected [facility] Parainfluenza 4 RNA Not Detected Not Detected [facility] B. pertussis DNA Not Detected Not Detected [facility] B. parapertussis DNA Not Detected Not Detected [facility] C. pneumoniae DNA Not Detected Not Detected [facility] M. pneumoniae DNA Not Detected Not Detected [facility] Nasopharyngeal 09/27/2024 10 :38 PM BRANCH SALES AND SERVICE REPRESENTATIVE 09/28/2024 1:00 AM BRANCH SALES AND SERVICE REPRESENTATIVE Buddy [facility] - 09/28/2024 2:21 AM BRANCH SALES AND SERVICE REPRESENTATIVE Is the Patient experiencing symptoms consistent with COVID?->Yes Surveillance testing for transplant patient?->No Interpretive Data The [employer] FilmArray Respiratory Panel (RP2.1) assay is a multiplexed real-time PCR based nucleic acid test capable of simultaneous qualitative detection and identification of multiple respiratory viral and bacterial nucleic acids, including SARS Coronavirus 2 (the causative agent of COVID-19). The following bacteria, viruses and virus subtypes can be identified using the FilmArray RP2.1 assay: Bordetella pertussis, Bordetella parapertussis, Chlamydia pneumoniae, Mycoplasma pneumoniae, Adenovirus, SARS Coronavirus 2, seasonal coronaviruses (Coronavirus HKU1, Coronavirus NL63, Coronavirus 229E, and Coronavirus OC43), Influenza A, Influenza A subtype H1, Influenza A subtype H3, Influenza A subtype 2009 H1, Influenza B, Metapneumovirus, Parainfluenza 1, Parainfluenza 2, Parainfluenza 3, Parainfluenza 4, RSV, Rhinovirus/Enterovirus. Due to the genetic similarity between human Rhinovirus and Enterovirus, the FilmArray RP2.1 assay cannot reliably differentiate them. Coronavirus OC43 may cross-react with some isolates of Coronavirus HKU1. A dual positive result may be due to cross-reactivity or may indicate a co- infection. The detection and identification of specific viral and bacterial nucleic acids from individuals exhibiting signs and symptoms of a respiratory infection aids in the diagnosis of respiratory infection if used in conjunction with other clinical and epidemiological information. The results of this test should not be used as the sole basis for diagnosis, treatment, or other management decisions. Negative results in the setting of a respiratory illness may be due to infection with pathogens that are not detected by this test. Positive results do not rule out infection/co-infection with other organisms. The agent(s) detected by the FilmArray RP2.1 may not be the definite cause of disease. Additional testing (lab, imaging, etc.) may be necessary when evaluating a patient with possible respiratory tract infection. The FilmArray RP2.1 assay has FDA clearance for testing of UPHOLSTERY INSTRU[employer] swabs. The performance of additional specimen types has been assessed by the performing laboratory. The performance characteristics of this assay have been determined by [facility] Infectious Disease [facility]. Current interpretive data was last revised on 22. us Torres Armenta MD LAB MICROBIOLOGY - GENERA L ORDERABLES Final Result Performing Organization Address [facility] de Phone Number [facility] [place] [address] * Troponin I high-sensitivity 2-hour (09/19/2024 5:19 PM BRANCH SALES AND SERVICE REPRESENTATIVE) Trop I hs 8 <=35 ng/L Comment: Interpretive Data For further hscTnI resources including the diagnostic algorithm and an aid in interpretation, copy and paste this link: [email or web address].testcatalog.org/show/[email or web address] Current Interpretive Data last revised 2020. Trop I hs delta 1 ng/L [facility] Trop I hs interp Insignificant [facility] Blood 09/19/2024 5:19 PM BRANCH SALES AND SERVICE REPRESENTATIVE 09/19/2024 5:36 PM BRANCH SALES AND SERVICE REPRESENTATIVE us Ole Kay MD LAB BLOOD ORDERABLES Final Result Performing Organization Address [facility] de Phone Number [facility] Department [place] [address] * XR Chest Pa Lateral 2 Views (09/19/2024 3:06 PM BRANCH SALES AND SERVICE REPRESENTATIVE) Anatomical Region Laterality Modality Body, Chest N/A Computed Radiogr aphy 09/19/2024 3:41 PM BRANCH SALES AND SERVICE REPRESENTATIVE Impressions 09/19/2024 4:08 PM BRANCH SALES AND SERVICE REPRESENTATIVE Comparison with chest radiograph dated 09/06/2024. No pulmonary consolidation, pleural effusion, or pneumothorax. Cardiomediastinal silhouette is normal. Dictated by: Kolby Garvey M.D. The radiology attending physician has personally reviewed this study, and had reviewed and/or edited this written report and agrees with it. Electronically signed by: Rory Castellano M.D. Narrative 09/19/2024 4:08 PM BRANCH SALES AND SERVICE REPRESENTATIVE EXAMINATION: 2 view chest radiograph Procedure Note Rory Castellano MD - 09/19/2024 EXAMINATION: 2 view chest radiograph IMPRESSION: Comparison with chest radiograph dated 09/06/2024. No pulmonary consolidation, pleural effusion, or pneumothorax. Cardiomediastinal silhouette is normal. Dictated by: Kolby Garvey M.D. The radiology attending physician has personally reviewed this study, and had reviewed and/or edited this written report and agrees with it. Electronically signed by: Rory Castellano M.D. us Kenny Curran MD IMG XR PROCEDURES Final Result * (ABNORMAL) ECG 12-LEAD (09/19/2024 3:00 PM BRANCH SALES AND SERVICE REPRESENTATIVE) Narrative [facility] - 09/19/2024 3:00 PM BRANCH SALES AND SERVICE REPRESENTATIVE Irina Yeager MD 09/19/2024 3:01 PM ECG 12 lead Date/Time: 09/19/2024 3:00 PM Performed by: Irina Yeager MD Authorized by: Freedom Mcginnis MD Rate: ECG rate: 86 ECG rate assessment: normal Rhythm: Rhythm: sinus rhythm Ectopy: Ectopy: none QRS: QRS axis: Normal QRS intervals: Normal Conduction: Conduction: normal ST segments: ST segments: Non-specific Interpretation: Interpretation: abnormal Recommended Follow-up: Recommended follow up: further workup in the ED Comments: Patient with ST elevations in V2, v3,v4,v5,v6, avf, II, III With NE depression in avF, I,II, v4, v5. Similar to prior EKG on 12/05/23. Acute pericarditis concern Procedure Note Irina Yeager MD - 09/19/2024 3:00 PM CST Procedure ECG 12 lead Date/Time: 09/19/2024 3:00 PM Performed by: Irina Yeager MD Authorized by: Freedom Mcginnis MD Rate: ECG rate: 86 ECG rate assessment: normal Rhythm: Rhythm: sinus rhythm Ectopy: Ectopy: none QRS: QRS axis: Normal QRS intervals: Normal Conduction: Conduction: normal ST segments: ST segments: Non-specific Interpretation: Interpretation: abnormal Recommended Follow-up: Recommended follow up: further workup in the ED Comments: Patient with ST elevations in V2, v3,v4,v5,v6, avf, II, III With NE depression in avF, I,II, v4, v5. Similar to prior EKG on 12/05/23. Acute pericarditis concern Irina Yeager MD 09/19/24 1501 us Kenny Curran MD ECG ORDERABLES Final R esult Performing Organization Address City/[facility]/ZIP Co de Phone Number [facility] * Troponin I high-sensitivity series (baseline, 2hr, 4hr, 6hr) (09/19/2024 2:56 PM BRANCH SALES AND SERVICE REPRESENTATIVE) Trop I hs 7 <=35 ng/L Comment: Interpretive Data For further hscTnI resources including the diagnostic algorithm and an aid in interpretation, copy and paste this link: https://bjhlab.testcatalog.org/show/hsTrop-1 Current Interpretive Data last revised 2020. Blood 09/19/2024 2:56 PM BRANCH SALES AND SERVICE REPRESENTATIVE 09/19/2024 3:25 PM BRANCH SALES AND SERVICE REPRESENTATIVE us Kenny Curran MD LAB BLOOD ORDERABLES Fi nal Result Performing Organization Address City/[facility] Co de Phone Number [facility] Department [place] [address] * eGFR (09/19/2024 2:56 PM BRANCH SALES AND SERVICE REPRESENTATIVE) eGFR >90 >=60 mL/min/1. 73 m2 Comment: Interpretive Data Reference Interval Normal >/= 90 mL/min/1.73m2 Mildly decreased* 60 - 89 mL/min/1.73m2 Mildly to moderately decreased 45 - 59 mL/min/1.73m2 Moderately to severely decreased 30 - 44 mL/min/1.73m2 Severely decreased 15 - 29 mL/min/1.73m2 Kidney Failure < 15 mL/min/1.73m2 *Relative to young adult level Estimated glomerular filtration rate is determined by the 2020 CKD-EPI equation recommended by the National Kidney Foundation (A Unifying Approach to GFR Estimation: Recommendations of the NKF-ASK Task Force on Reassessing the Inclusion of Race in Diagnosing Kidney Disease, JASN 2020). The CKD-EPI equation should not be used for patients with unstable renal function and has not been validated in children and those over 70. Current interpretive data was last reviewed 2021. Blood 09/19/2024 2:56 PM BRANCH SALES AND SERVICE REPRESENTATIVE 09/19/2024 3:25 PM BRANCH SALES AND SERVICE REPRESENTATIVE us Kenny Curran MD LAB BLOOD ORDERABLES Fi nal Result [facility] Department [place] [address] * Differential, auto (09/19/2024 2:56 PM BRANCH SALES AND SERVICE REPRESENTATIVE) Neutrophil abs 2.5 1.5 - 6.5 K/cumm Imm gran abs 0.0 0.0 - 0.1 K/cumm [facility] Lymphocyte abs 1.7 0.8 - 3.3 K/cumm [facility] Monocyte abs 0.5 0.2 - 0.8 K/cumm [facility] Eosinophil abs 0.1 0.0 - 0.5 K/cumm [facility] Basophil abs 0.0 0.0 - 0.1 K/cumm [facility] Neutrophil pct 50.3 % [facility] Comment: Interpretive Data Percent cell count reference ranges are not reported, since discordance with absolute values may lead to misinterpretation of CBC data. Current Interpretive Data was last revised on 2017. Imm gran pct 0.2 % [facility] Comment: Interpretive Data Percent cell count reference ranges are not reported, since discordance with absolute values may lead to misinterpretation of CBC data. Current Interpretive Data was last revised on 2017. Lymphocyte pct 35.7 % [facility] Comment: Interpretive Data Percent cell count reference ranges are not reported, since discordance with absolute values may lead to misinterpretation of CBC data. Current Interpretive Data was last revised on 2017. Monocyte pct 10.7 % [facility] Comment: Interpretive Data Percent cell count reference ranges are not reported, since discordance with absolute values may lead to misinterpretation of CBC data. Current Interpretive Data was last revised on 2017. Eosinophil pct 2.5 % [facility] Comment: Interpretive Data Percent cell count reference ranges are not reported, since discordance with absolute values may lead to misinterpretation of CBC data. Current Interpretive Data was last revised on 2017. Basophil pct 0.6 % [facility] Comment: Interpretive Data Percent cell count reference ranges are not reported, since discordance with absolute values may lead to misinterpretation of CBC data. Current Interpretive Data was last revised on 2017. Blood 09/19/2024 2:56 PM BRANCH SALES AND SERVICE REPRESENTATIVE 09/19/2024 3:25 PM BRANCH SALES AND SERVICE REPRESENTATIVE Kenny Curran MD LAB BLOOD ORDERABLES Fi nal Result [facility] Department [place] [address] * (ABNORMAL) CBC with auto differential (09/19/2024 2:56 PM BRANCH SALES AND SERVICE REPRESENTATIVE) WBC 4.9 3.8 - 9.9 K/cumm Hgb 12.8(L) 13.0 - 17.5 g/dL [facility] Hct 40.5 38.9 - 50.3 % [facility] Plt 271 150 - 400 K/cumm [facility] MPV 9.7 9.1 - 12.3 fL [facility] RBC 4.63 4.30 - 5.80 M/cumm [facility] MCV 87.5 81.3 - 96.4 fL [facility] MCH 27.6 27.1 - 33.3 pg [facility] MCHC 31.6(L) 32.3 - 35.7 g/dL [facility] RDW CV 13.2 11.1 - 14.9 % [facility] RDW SD 41.6 35.7 - 48.1 fL [facility] NRBC abs 0.02(H) 0.00 - 0.01 K/cumm [facility] Blood Venous blood specimen / Unknown 09/19/2024 2:56 PM BRANCH SALES AND SERVICE REPRESENTATIVE 09/19/2024 3:25 PM BRANCH SALES AND SERVICE REPRESENTATIVE us Kenny Curran MD LAB BLOOD ORDERABLES Fi nal Result [facility] Department [place] [address] * Comprehensive metabolic panel (09/19/2024 2:56 PM BRANCH SALES AND SERVICE REPRESENTATIVE) Sodium 141 135 - 145 mmol/L Potassium, pl 3.9 3.3 - 4.9 mmol/L [facility] Chloride 106 97 - 110 mmol/L [facility] CO2 26 22 - 32 mmol/L [facility] Anion gap 9 2 - 15 mmol/L [facility] BUN 6 6 - 25 mg/dL [facility] Creatinine 1.00 0.80 - 1.30 mg/dL [facility] Glucose 93 70 - 199 mg/dL [facility] Comment: Interpretive Data Fasting glucose >/= 126 mg/dl is diagnostic for diabetes. Fasting is defined as no caloric intake for at least 8 hours. Fasting glucose between 100 mg/dl to 125 mg/dl is diagnostic of prediabetes. In a patient with classic symptoms of hyperglycemia or hyperglycemic crisis, a random glucose >/= 200 mg/dl is diagnostic for diabetes. In the absence of unequivocal hyperglycemia, results should be confirmed by repeat testing. The classification and Diagnosis of Diabetes Diabetes Care 2021; 46: S19-S40. Current interpretive data was last revised 2022. Calcium 9.1 8.5 - 10.3 mg/dL [facility] Bilirubin, total 0.2 0.1 - 1.2 mg/dL [facility] Protein, pl 7.1 6.5 - 8.5 g/dL [facility] Albumin 4.2 3.5 - 5.0 g/dL [facility] Alk phos 69 40 - 130 Units/L [facility] ALT 32 7 - 55 Units/L [facility] AST 22 10 - 50 Units/L [facility] Blood 09/19/2024 2:56 PM BRANCH SALES AND SERVICE REPRESENTATIVE 09/19/2024 3:25 PM BRANCH SALES AND SERVICE REPRESENTATIVE Kenny Curran MD LAB BLOOD ORDERABLES Fi nal Result Performing Organization Address [facility] Co de Phone Number [facility] [place] [address] * eGFR (09/14/2024 4:26 AM BRANCH SALES AND SERVICE REPRESENTATIVE) eGFR >90 >=60 mL/min/1. 73 m2 Comment: Interpretive Data Reference Interval Normal >/= 90 mL/min/1.73m2 Mildly decreased* 60 - 89 mL/min/1.73m2 Mildly to moderately decreased 45 - 59 mL/min/1.73m2 Moderately to severely decreased 30 - 44 mL/min/1.73m2 Severely decreased 15 - 29 mL/min/1.73m2 Kidney Failure < 15 mL/min/1.73m2 *Relative to young adult level Estimated glomerular filtration rate is determined by the 2020 CKD-EPI equation recommended by the National Kidney Foundation (A Unifying Approach to GFR Estimation: Recommendations of the NKF-ASK Task Force on Reassessing the Inclusion of Race in Diagnosing Kidney Disease, JASN 2020). The CKD-EPI equation should not be used for patients with unstable renal function and has not been validated in children and those over 70. Current interpretive data was last reviewed 2021. Blood 09/14/2024 4:26 AM BRANCH SALES AND SERVICE REPRESENTATIVE 09/14/2024 4:45 AM BRANCH SALES AND SERVICE REPRESENTATIVE us Qi Cherry MD LAB BLOOD ORDERABLES Final R esult Performing Organization Address [facility] Co de Phone Number [facility] Department [place] [address] * (ABNORMAL) CBC without differential (09/14/2024 4:26 AM BRANCH SALES AND SERVICE REPRESENTATIVE) WBC 6.1 3.8 - 9.9 K/cumm Hgb 12.0(L) 13.0 - 17.5 g/dL [facility] Hct 37.2(L) 38.9 - 50.3 % [facility] Plt 218 150 - 400 K/cumm [facility] MPV 10.0 9.1 - 12.3 fL [facility] RBC 4.28(L) 4.30 - 5.80 M/cumm [facility] MCV 86.9 81.3 - 96.4 fL [facility] MCH 28.0 27.1 - 33.3 pg [facility] MCHC 32.3 32.3 - 35.7 g/dL [facility] RDW CV 13.2 11.1 - 14.9 % [facility] RDW SD 41.2 35.7 - 48.1 fL [facility] NRBC abs 0.00 0.00 - 0.01 K/cumm [facility] Blood 09/14/2024 4:26 AM BRANCH SALES AND SERVICE REPRESENTATIVE 09/14/2024 4:45 AM BRANCH SALES AND SERVICE REPRESENTATIVE Qi Cherry MD LAB BLOOD ORDERABLES Final R esult Performing Organization Address City/[facility]/ZIP Co de Phone Number [facility] [employer] [address] * Lipase (09/14/2024 4:26 AM BRANCH SALES AND SERVICE REPRESENTATIVE) Pathologist [facility] Lipase 39 10 - 99 Units/L Blood 09/14/2024 4:26 AM BRANCH SALES AND SERVICE REPRESENTATIVE 09/14/2024 4:45 AM BRANCH SALES AND SERVICE REPRESENTATIVE Qi Cherry MD LAB BLOOD ORDERABLES Final R esult [facility] [place] [employer] [address] * (ABNORMAL) Comprehensive metabolic panel (09/14/2024 4:26 AM BRANCH SALES AND SERVICE REPRESENTATIVE) Pathologist [facility] Sodium 142 135 - 145 mmol/L Potassium, pl 4.4 3.3 - 4.9 mmol/L [facility] Chloride 108 97 - 110 mmol/L [facility] CO2 27 22 - 32 mmol/L [facility] Anion gap 7 2 - 15 mmol/L [facility] BUN 12 6 - 25 mg/dL [facility] Creatinine 1.08 0.80 - 1.30 mg/dL [facility] Glucose 110 70 - 199 mg/dL [facility] Comment: Interpretive Data Fasting glucose >/= 126 mg/dl is diagnostic for diabetes. Fasting is defined as no caloric intake for at least 8 hours. Fasting glucose between 100 mg/dl to 125 mg/dl is diagnostic of prediabetes. In a patient with classic symptoms of hyperglycemia or hyperglycemic crisis, a random glucose >/= 200 mg/dl is diagnostic for diabetes. In the absence of unequivocal hyperglycemia, results should be confirmed by repeat testing. The classification and Diagnosis of Diabetes Diabetes Care 202; 46: S19-S40. Current interpretive data was last revised 2022. Calcium 8.4(L) 8.5 - 10.3 mg/dL [facility] Bilirubin, total <0.2 0.1 - 1.2 mg/dL [facility] Protein, pl 6.1(L) 6.5 - 8.5 g/dL [facility] Albumin 3.4(L) 3.5 - 5.0 g/dL [facility] Alk phos 65 40 - 130 Units/L [facility] ALT 27 7 - 55 Units/L [facility] AST 25 10 - 50 Units/L [facility] Blood 09/14/2024 4:26 AM [employer]CH SALES AND SERVICE REPRESENTATIVE 09/14/2024 4:45 AM BRANCH SALES AND SERVICE REPRESENTATIVE us Qi Cherry MD LAB BLOOD ORDERABLES Final R esult [facility] Department [place] [address] * (ABNORMAL) Urinalysis reflex to microscopic and culture Urine (09/14/2024 1:16 AM BRANCH SALES AND SERVICE REPRESENTATIVE) Color, ur Yellow Yellow Clarity, ur Clear Clear [facility] Specific gravity, ur 1.031(H) 1.003 - 1.030 [facility] pH, urine 6.5 [facility] Comment: Interpretive Data U rine pH is affected by diet, medications, systemic acid-base disturbances, and renal tubular function. pH may affect urinary stone formation. For example, urine pH below 6.0 may help reduce the tendency for calcium phosphate stones and pH greater than 6.0 may reduce the tendency for uric acid stone formation. Source: [facility] Current Interpretive Data was last revised on 2017 Protein, ur ql 1+(A) Negative [facility] Glucose, ur ql Negative Negative [facility] Ketones, ur Negative Negative [facility] Bilirubin, ur Negative Negative [facility] Blood, ur 1+(A) Negative [facility] Urobilinogen, ur <2.0 <2.0 mg/dL [facility] Nitrite, ur Negative Negative [facility] Leukocyte esterase, ur Negative Negative [facility] UA reflex comment Reflex to microscopic UA will be performed. [facility] Urine 09/14/2024 1:16 AM [employer]CH SALES AND SERVICE REPRESENTATIVE 09/14/2024 1:25 AM BRANCH SALES AND SERVICE REPRESENTATIVE Qi Cherry MD LAB MICROBIOLOGY - GENERAL O RDERABLES Final Result [facility] Department [place] [address] * (ABNORMAL) Urinalysis, microscopic only (09/14/2024 1:16 AM [employer]CH SALES AND SERVICE REPRESENTATIVE) WBC, ur 0-5 0 - 5 /HPF RBC, ur 11-20(A) 0 - 2 /HPF [facility] Bacteria, ur Trace(A) [facility] Mucous, ur Present(A) [facility] Hyaline casts, ur 1-5 0 - 10 /LPF [facility] Culture Reflex Comment Reflex conditions for urine culture (WBC >10) not met. [facility] Urine 09/14/2024 1:16 AM BR[employer]CH SALES AND SERVICE REPRESENTATIVE 09/14/2024 1:25 AM BR[employer]CH SALES AND SERVICE REPRESENTATIVE Qi Cherry MD LAB URINE ORDERABLES Final R esult [facility] Department [place] [address] * POCUS Cardiac (09/07/2024 3:41 AM BR[employer]CH SALES AND SERVICE REPRESENTATIVE) Anatomical Region Laterality Modality Other 09/07/2024 2:37 AM [employer]CH SALES AND SERVICE REPRESENTATIVE Narrative 09/07/2024 5:32 AM BRANCH SALES AND SERVICE REPRESENTATIVE Performed by: Kolby Dominguez Cardiac: Exam type: Diagnostic Exam Information: Indication(s) for Exam: Chest Pain Exam Occurence: Initial Findings : Pericardial effusion: Absent Left ventricle: Normal EF IVC: Normal IVC respiratory variation: High collapsibility (>50%) Interpretation: Normal LVEF Electronically signed by Kolby Dominguez on September at 5:22 AM I have reviewed the images & the resident's interpretation. I agree with the findings. Electronically signed by Wilmer Muro on September at 5:32 AM I have reviewed the images & the resident's interpretation. I agree with the findings. Procedure Note Wilmer Muro MD - 09/07/2024 Performed by: Kolby Dominguez Cardiac: Exam type: Diagnostic Exam Information: Indication(s) for Exam: Chest Pain Exam Occurence: Initial Findings : Pericardial effusion: Absent Left ventricle: Normal EF IVC: Normal IVC respiratory variation: High collapsibility (>50%) Interpretation: Normal LVEF Electronically signed by Kloby Dominguez on September 07t 5:22 AM I have reviewed the images & the resident's interpretation. I agree withthe findings. Electronically signed by Wilmer Muro on September at5:32 AM I have reviewed the images & the resident's interpretation. I agree withthe findings. Wilmer Muro MD POCUS ORDERABLES Final Result * Troponin I high-sensitivity 4-hour (09/07/2024 2:19 AM [employer] SALES AND SERVICE REPRESENTATIVE) Trop I hs 12 <=35 ng/L Comment: Interpretive Data For further hscTnI resources including the diagnostic algorithm and an aid in interpretation, copy and paste this link: [email or web address] Current Interpretive Data last revised 2020. Trop I hs delta See Comment ng/L [facility] Comment:Inappropriate collec tion time to report a delta. Trop I hs pct delta See Comment % [facility] Comment:Inappropriate collec tion time to report a delta. Trop I hs interp See Comment [facility] Comment:Inappropriate collec tion time to report a delta. Blood 09/07/2024 2:19 AM BRANCH SALES AND SERVICE REPRESENTATIVE 09/07/2024 2:40 AM BRANCH SALES AND SERVICE REPRESENTATIVE us Florida Yang MD LAB BLOOD ORDERABLES Final R esult Performing Organization Address [facility] Co de Phone Number [facility] [place] [employer] [address] * Troponin I high-sensitivity 2-hour (09/06/2024 10:53 PM BR[employer]CH SALES AND SERVICE REPRESENTATIVE) Trop I hs 12 <=35 ng/L Comment: Interpretive Data For further hscTnI resources including the diagnostic algorithm and an aid in interpretation, copy and paste this link: [email or web address]/[email or web address] Current Interpretive Data last revised 2020. Trop I hs delta 0 ng/L [facility] Trop I hs interp Insignificant [facility] Blood 09/06/2024 10:5 3 PM BR[employer]CH SALES AND SERVICE REPRESENTATIVE 09/06/2024 11:08 PM BRANCH SALES AND SERVICE REPRESENTATIVE us Florida Yang MD LAB BLOOD ORDERABLES Final R esult Performing Organization Address [facility] Co de Phone Number [facility] Department [place] [employer] [address] * ECG 12-LEAD (09/06/2024 9:44 PM BRANCH SALES AND SERVICE REPRESENTATIVE) Narrative [facility] - 09/06/2024 9:44 PM BRANCH SALES AND SERVICE REPRESENTATIVE Heriberto Herrera MD 09/06/2024 9:45 PM ECG 12 lead Date/Time: 09/06/2024 9:44 PM Performed by: Heriberto Herrera MD Authorized by: Florida Yang MD Procedure Note Heriberto Herrera MD - 09/06/2024 9:44 PM CST Procedure ECG 12 lead Date/Time: 09/06/2024 9:44 PM Performed by: Heriberto Herrera MD Authorized by: Florida Yang MD Normal sinus rhythm, rate of 60, left axis deviation, diffuse STelevations in leads 1, 2, 3, AVF, V3, V4, V5, V6, all similar to priorperformed 12/14/2023. Moderate to high-risk EKG but given chronicitydoubt acute ischemia. History of pericarditis. Heriberto Herrera MD 09/06/242144 us Wilmer Muro MD ECG ORDERABLES Final Result [facility] * Troponin I high-sensitivity series (baseline, 2hr, 4hr, 6hr) (09/06/2024 9:13 PM BRANCH SALES AND SERVICE REPRESENTATIVE) [facility] Trop I hs 12 <=35 ng/L Comment: Interpretive Data For further [facility] resources including the diagnostic algorithm and an aid in interpretation, copy and paste this link: [email or web address] Current Interpretive Data last revised 2020. Blood 09/06/2024 9:13 PM BRANCH SALES AND SERVICE REPRESENTATIVE 09/06/2024 9:55 PM BRANCH SALES AND SERVICE REPRESENTATIVE us Wilmer Muro MD LAB BLOOD ORDERABLES Final Re sult [facility] Department [place] [address] * eGFR (09/06/2024 9:13 PM BRANCH SALES AND SERVICE REPRESENTATIVE) eGFR >90 >=60 mL/min/1. 73 m2 Comment: Interpretive Data Reference Interval Normal >/= 90 mL/min/1.73m2 Mildly decreased* 60 - 89 mL/min/1.73m2 Mildly to moderately decreased 45 - 59 mL/min/1.73m2 Moderately to severely decreased 30 - 44 mL/min/1.73m2 Severely decreased 15 - 29 mL/min/1.73m2 Kidney Failure < 15 mL/min/1.73m2 *Relative to young adult level Estimated glomerular filtration rate is determined by the 2020 CKD-EPI equation recommended by the National Kidney Foundation (A Unifying Approach to GFR Estimation: Recommendations of the NKF-ASK Task Force on Reassessing the Inclusion of Race in Diagnosing Kidney Disease, JASN 2020). The CKD-EPI equation should not be used for patients with unstable renal function and has not been validated in children and those over 70. Current interpretive data was last reviewed 2021. Blood 09/06/2024 9:1 3 PM BRANCH SALES AND SERVICE REPRESENTATIVE 09/06/2024 9:55 PM BRANCH SALES AND SERVICE REPRESENTATIVE us Wilmer Muro MD LAB BLOOD ORDERABLES Final Re sult [facility] Department [place] [address] * Differential, auto (09/06/2024 9:13 PM BRANCH SALES AND SERVICE REPRESENTATIVE) Pathologist [facility] Neutrophil abs 3.6 1.5 - 6.5 K/cumm Imm gran abs 0.0 0.0 - 0.1 K/cumm [facility] Lymphocyte abs 2.0 0.8 - 3.3 K/cumm [facility] Monocyte abs 0.6 0.2 - 0.8 K/cumm [facility] Eosinophil abs 0.1 0.0 - 0.5 K/cumm [facility] Basophil abs 0.0 0.0 - 0.1 K/cumm [facility] Neutrophil pct 57.4 % [facility] Comment: Interpretive Data Percent cell count reference ranges are not reported, since discordance with absolute values may lead to misinterpretation of CBC data. Current Interpretive Data was last revised on 2017. Imm gran pct 0.3 % [facility] Comment: Interpretive Data Percent cell count reference ranges are not reported, since discordance with absolute values may lead to misinterpretation of CBC data. Current Interpretive Data was last revised on 2017. Lymphocyte pct 30.9 % [facility] Comment: Interpretive Data Percent cell count reference ranges are not reported, since discordance with absolute values may lead to misinterpretation of CBC data. Current Interpretive Data was last revised on 2017. Monocyte pct 9.1 % [facility] Comment: Interpretive Data Percent cell count reference ranges are not reported, since discordance with absolute values may lead to misinterpretation of CBC data. Current Interpretive Data was last revised on 2017. Eosinophil pct 2.0 % [facility] Comment: Interpretive Data Percent cell count reference ranges are not reported, since discordance with absolute values may lead to misinterpretation of CBC data. Current Interpretive Data was last revised on 2017. Basophil pct 0.3 % [facility] Comment: Interpretive Data Percent cell count reference ranges are not reported, since discordance with absolute values may lead to misinterpretation of CBC data. Current Interpretive Data was last revised on 2017. Blood 09/06/2024 9:13 PM BRANCH SALES AND SERVICE REPRESENTATIVE 09/06/2024 9:56 PM BRANCH SALES AND SERVICE REPRESENTATIVE us Wilmer Muro MD LAB BLOOD ORDERABLES Final Re sult [facility] Department [place] [address] * (ABNORMAL) CBC with auto differential (09/06/2024 9:13 PM BRANCH SALES AND SERVICE REPRESENTATIVE) WBC 6.4 3.8 - 9.9 K/cumm Hgb 13.9 13.0 - 17.5 g/dL [facility] Hct 43.6 38.9 - 50.3 % [facility] Plt 267 150 - 400 K/cumm [facility] MPV 10.1 9.1 - 12.3 fL [facility] RBC 4.94 4.30 - 5.80 M/cumm [facility] MCV 88.3 81.3 - 96.4 fL [facility] MCH 28.1 27.1 - 33.3 pg [facility] MCHC 31.9(L) 32.3 - 35.7 g/dL [facility] RDW CV 13.2 11.1 - 14.9 % [facility] RDW SD 42.4 35.7 - 48.1 fL [facility] NRBC abs 0.00 0.00 - 0.01 K/cumm [facility] Blood Venous blood specimen / Unknown 09/06/2024 9:13 PM BRANCH SALES AND SERVICE REPRESENTATIVE 09/06/2024 9:56 PM BRANCH SALES AND SERVICE REPRESENTATIVE us Wilmer Muro MD LAB BLOOD ORDERABLES Final Re sult [facility] Department [place] [address] * (ABNORMAL) Comprehensive metabolic panel (09/06/2024 9:13 PM BRANCH SALES AND SERVICE REPRESENTATIVE) Sodium 147(H) 135 - 145 mmol/L Potassium, pl 4.1 3.3 - 4.9 mmol/L [facility] Chloride 111(H) 97 - 110 mmol/L [facility] CO2 28 22 - 32 mmol/L [facility] Anion gap 8 2 - 15 mmol/L [facility] BUN 9 6 - 25 mg/dL [facility] Creatinine 1.05 0.80 - 1.30 mg/dL [facility] Glucose 91 70 - 199 mg/dL [facility] Comment: Interpretive Data Fasting glucose >/= 126 mg/dl is diagnostic for diabetes. Fasting is defined as no caloric intake for at least 8 hours. Fasting glucose between 100 mg/dl to 125 mg/dl is diagnostic of prediabetes. In a patient with classic symptoms of hyperglycemia or hyperglycemic crisis, a random glucose >/= 200 mg/dl is diagnostic for diabetes. In the absence of unequivocal hyperglycemia, results should be confirmed by repeat testing. The classification and Diagnosis of Diabetes Diabetes Care 2021; 46: S19-S40. Current interpretive data was last revised 2022. Calcium 9.5 8.5 - 10.3 mg/dL [facility] Bilirubin, total 0.2 0.1 - 1.2 mg/dL [facility] Protein, pl 7.7 6.5 - 8.5 g/dL [facility] Albumin 4.2 3.5 - 5.0 g/dL [facility] Alk phos 75 40 - 130 Units/L [facility] ALT 20 7 - 55 Units/L [facility] AST 26 10 - 50 Units/L [facility] Blood 09/06/2024 9:13 PM BRANCH SALES AND SERVICE REPRESENTATIVE 09/06/2024 9:55 PM BRANCH SALES AND SERVICE REPRESENTATIVE us Wilmer Muro MD LAB BLOOD ORDERABLES Final Re sult [facility] Department [place] [address] * XR Finger Right 2 or More Views (09/06/2024 8:43 PM BRANCH SALES AND SERVICE REPRESENTATIVE) Anatomical Region Laterality Modality Upper Extremities, Hand, Fingers Right Computed Radiography 09/06/2024 8:45 PM BRANCH SALES AND SERVICE REPRESENTATIVE Impressions 09/06/2024 8:57 PM BRANCH SALES AND SERVICE REPRESENTATIVE No acute fracture or dislocation. Joint spaces are preserved. Dictated by: Jay Rios MD The radiology attending physician has personally reviewed this study, and had reviewed and/or edited this written report and agrees with it. Electronically signed by: Mckenna Spencer M.D. Narrative 09/06/2024 8:57 PM BRANCH SALES AND SERVICE REPRESENTATIVE EXAMINATION: XR FINGER RIGHT 2 OR MORE VIEWS HISTORY: Pain Procedure Note Mckenna Spencer MD - 09/06/2024 EXAMINATION: XR FINGER RIGHT 2 OR MORE VIEWS HISTORY: Pain IMPRESSION: No acute fracture or dislocation. Joint spaces are preserved. Dictated by: Jay Rios MD The radiology attending physician has personally reviewed this study, and had reviewed and/or edited this written report and agrees with it. Electronically signed by: Mckenna Spencer M.D. Wilmer Muro MD IMG XR PROCEDURES Final Resul t * XR Chest Pa Lateral 2 Views (09/06/2024 8:43 PM BRANCH SALES AND SERVICE REPRESENTATIVE) Anatomical Region Laterality Modality Body, Chest N/A Computed Radiogr aphy 09/06/2024 8:44 PM BRANCH SALES AND SERVICE REPRESENTATIVE Impressions 09/06/2024 8:56 PM BRANCH SALES AND SERVICE REPRESENTATIVE FINDINGS/IMPRESSION: 2 views of the chest are provided for interpretation. Lungs are clear with no pulmonary consolidation. No pleural effusion and no pneumothorax is seen. Cardiomediastinal contours are normal. Dictated by: Carlos Heart M.D. The radiology attending physician has personally reviewed this study, and had reviewed and/or edited this written report and agrees with it. Electronically signed by: Mckenna Spencer M.D. Narrative 09/06/2024 8:56 PM BRANCH SALES AND SERVICE REPRESENTATIVE EXAMINATION: XR CHEST PA LATERAL 2 VIEWS HISTORY: 34-year-old male with chest pain. COMPARISON: Comparison radiograph from 12/05/2023. Procedure Note Mckenna Spencer MD - 09/06/2024 EXAMINATION: XR CHEST PA LATERAL 2 VIEWS HISTORY: 34-year-old male with chest pain. COMPARISON: Comparison radiograph from 12/05/2023. IMPRESSION: FINDINGS/IMPRESSION: 2 views of the chest are provided for interpretation. Lungs are clear with no pulmonary consolidation. No pleural effusion and no pneumothorax is seen. Cardiomediastinal contours are normal. Dictated by: Carlos Heart M.D. The radiology attending physician has personally reviewed this study, and had reviewed and/or edited this written report and agrees with it. Electronically signed by: Mckenna Spencer M.D. Wilmer Muro MD IM XR PROCEDURES Final Resul t from Last 3 Months Insurance Advance Directives For more information, please contact: [phone] * Full Code (Latest Code Status on File) Date Activated Date Inactivated Comments 09/28/2024 2:38 PM 10/01/2024 4:02 PM * Full Code Date Activated Date Inactivated Comments 11/16/2023 2:56 AM 11/18/2023 12:47 PM * Full Code Date Activated Date Inactivated Comments 09/07/2023 6:32 AM 09/09/2023 5:23 PM * Full Code Date Activated Date Inactivated Comments 07/25/2023 2:35 AM 07/28/2023 3:46 PM * Full Code Date Activated Date Inactivated Comments 05/22/2023 7:18 AM 05/25/2023 5:25 PM Care Teams Mill Manager Relationship Specialty Start Date End Date No, Physician PCP - General 11/30/20
--- OUTSIDE RECORDS SUMMARY | 2024-10-09 21:42 | XMS_ITS | Clinical Summary ---
Author Organization [facility] Address Formerly [facility] [place] [address] Care Team Providers Care Energy Trader Name Role Phone None, Provider MD Primary Care Provider Unavaila ble Allergies No known active allergies Medications ARIPiprazole (ABILIFY) 10 MG tablet Take 1 tablet (10 mg total) by mouth daily. 30 tablet 4 Active lidocaine (LIDO SINTIA) 4 % patch Place 1 patch onto the skin daily. Remove & Discard patch within 12 hours or as directed 30 patch 4 Active methocarbamol (ROBAXIN-750) 750 MG Tab Take 1 tablet (750 mg total) by mouth every 8 (eight) hours as needed. 30 tablet 4 Active pantoprazole EC (PROTONIX) 40 MG tablet Take 1 tablet (40 mg total) by mouth daily. 30 tablet 5 Active pantoprazole EC (PROTONIX) 40 MG tablet Take 1 tablet (40 mg total) by mouth 2 (two) times a day. 60 tablet 3 10/08/19 25 Discontinue d(Formulary change) ibuprofen (MOTRIN) 800 MG tablet Take 1 tablet (800 mg total) by mouth every 8 (eight) hours as needed. 15 tablet 5 09/23/19 25 Active Problems Problem Noted Date Diagnosed Date Pericarditis (HHS/HCC) 06/16/2023 Acute blood loss anemia 06/16/2023 Hematemesis with nausea 06/16/2023 Encounters Date Type Department Care Team Description 10/07/2024 1:49 AM CHUCKING LATHE OPERATOR - 10/07/2024 3:26 AM CHUCKING LATHE OPERATOR [facility] [place] [address] Ian Persaud MD Abdominal Pain Discharge Disposition: Home or Self Care (Routine Discharge) 10/07/2024 Travel 09/12/2024 11:01 PM CHUCKING LATHE OPERATOR - 09/13/2024 2:56 AM CHUCKING LATHE OPERATOR [facility] [place] [address] Ian Persaud MD Chest Pain Discharge Disposition: Home or Self Care (Routine Discharge) 09/12/2024 Travel from Last 3 Months Social History Tobacco Use Types Packs/Day Years Used Date Smoking Tobacco: Former Cigarettes Cigars Smokeless Tobacco: Never Tobacco Cessation:Counseling Given: Not Answered Alcohol Use Standard Drinks/Week Comments Yes 0 (1 standard drink = 0.6 oz pur e alcohol) [facility] [employer] Answer Date Recorded In the past 12 months has [employer], gas, oil, or water [employer] threatened to shut off services in your home? No 06/17/2023 Humiliation, Afraid, Rape, and Kick questionnair e Answer Date Recorded Within the last year, have y ou been afraid of your partner or ex-partner? No 06/17/2023 Within the last year, have y ou been humiliated or emotionally abused in other ways by your partner or ex-partner? No Within the last year, have y ou been kicked, hit, slapped, or otherwise physically hurt by your partner or ex-partner? No 06/17/2023 Within the last year, have y ou been raped or forced to have any kind of sexual activity by your partner or ex-partner? No 06/17/2023 Social Connection and Isolat ion Panel [NHANES] Answer Date Recorded In a typical week, how many times do you talk on the phone with family, friends, or neighbors? More than three times a week 06/17/2023 How often do you get togethe r with friends or relatives? More than three times a week 06/17/2023 How often do you attend [facility] or taoist services? 1 to 4 times per year 06/17/2023 Do you belong to any clubs o r organizations such as anabaptist groups, unions, fraternal or athletic groups, or school groups? No 06/17/2023 How often do you attend meet ings of the clubs or organizations you belong to? Never 06/17/2023 Are you , , di vorced, , never , or living with a partner? 06/17/2023 AUDIT-C Answer Date Recorded Q1: How often do you have a drink containing alcohol? Never 06/17/2023 Q2: How many drinks containi ng alcohol do you have on a typical day when you are drinking? Patient does not drink Q3: How often do you have si x or more drinks on one occasion? Never 06/17/2023 Overall Financial Resource Strain (CARDIA) Answe r Date Recorded How hard is it for you to pa y for the very basics like food, housing, medical care, and heating? Not hard at all 06/17/2023 PHQ-2 Answer Date Recorded Patient Health Questionnaire-2 Score 0 06/17/2023 [facility] - Occupational Stress Questionnaire Answer Date Recorded Do you feel stress - tense, restless, nervous, or anxious, or unable to sleep at night because your mind is troubled all the time - these days? Not at all 06/17/2023 Exercise Vital Sign Answer Date Recorde d On average, how many days pe r week do you engage in moderate to strenuous exercise (like a brisk walk)? 3 days 06/17/2023 On average, how many minutes do you engage in exercise at this level? 60 min 06/17/2023 Hunger Vital Sign Answer Date Recorded Within the past 12 months, y ou worried that your food would run out before you got the money to buy more. Never true 06/17/20 23 Within the past 12 months, t he food you bought just didn't last and you didn't have money to get more. Never true 06/17/2023 PRAPARE - Transportation Answer Date Re corded In the past 12 months, has l ack of transportation kept you from medical appointments or from getting medications? No 06/02 In the past 12 months, has l ack of transportation kept you from meetings, work, or from getting things needed for daily living? No 06/17/2023 Housing Stability Vital Sign Answer Pavel e Recorded In the last 12 months, was t here a time when you were not able to pay the mortgage or rent on time? No 06/17/2023 In the last 12 months, how many places have you lived? 1 06/17/2023 In the last 12 months, was t here a time when you did not have a steady place to sleep or slept in a long term (including now)? No 06/17/2023 Housing Stability Vital Sign Answer Pavel e Recorded In the last 12 months, was t here a time when you were not able to pay the mortgage or rent on time? No 06/17/2023 Number of Times Moved in the Last Year Not on fi le 06/17/2023 Homeless in the Last Year Not on file 2022 Sex and Gender Information Value Date Recorded Sex Assigned at Male 09/12/2024 10:51 PM CHUCKING LATHE OPERATOR Legal Sex Male 4:43 PM CDT Gender Identity Not on file Sexual Orientation Not on file Last Filed Vital Signs Vital Sign Reading Time Taken Comments Blood Pressure 151/92 10/07/2024 1:22 AM CHUCKING LATHE OPERATOR Pulse 102 10/07/2024 1:22 AM CHUCKING LATHE OPERATOR Temperature 37.2 C (98.9 F) 10/07/2024 1:22 AM CHUCKING LATHE OPERATOR Respiratory Rate 18 10/07/2024 1:22 AM CHUCKING LATHE OPERATOR Oxygen Saturation 100% 10/07/2024 1:22 AM CHUCKING LATHE OPERATOR Inhaled Oxygen Concentration - - Weight 72.6 kg (160 lb) 10/07/2024 1:22 AM CHUCKING LATHE OPERATOR Height 180.3 cm (5' 11 ) 10/07/2024 1:22 AM CHUCKING LATHE OPERATOR Body Mass Index 22.32 10/07/2024 1:22 AM CHUCKING LATHE OPERATOR Plan of Treatment Health Maintenance Due Date Last Done Comments Annual Physical 1994 Hepatitis B Vaccines (3 of 3 - 3-dose series) 11/16/2000 09/21/2000, 04/04/1996 DTaP, Tdap and Td Vaccines (5 - Tdap) 2002 04/04/1996, 08/20/1992, 06/20/1992, Additional history exists Hepatitis C 2009 COVID-19 Vaccine ( season) 2024 Influenza Adult (#1) 2024 HPV Vaccines Aged Out No longer eligi ble based on patient's age to complete this topic Meningococcal B Vaccine Aged Out No l onger eligible based on patient's age to complete this topic Meningococcal Vaccine Aged Out No gila jorge eligible based on patient's age to complete this topic Pneumococcal Vaccine: Pediatrics (0 to 5 Years) and At-Risk Patients (6 to 64 Years) Aged Out No longer eligible based on patient's age to complete this topic RSV Immunizations Under 20 Months Aged Out No longer eligible based on patient's age to complete this topic Goals Goal Patient Goal Type Associated Problems Recent Progress Patient-Stated? Author Patient will return to prior living situation and remain independent in ADLs upon discharge from hospital Lifestyle No 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, EMBROIDERY OPERATOR Procedures Procedure Name Priority Date/Time Associated Diagnosis Comments CT ABD+PEL W CON STAT 10/07/2024 2:23 AM CHUCKING LATHE OPERATOR LIPASE STAT 10/07/2024 2:04 AM CHUCKING LATHE OPERATOR COMPREHENSIVE METABOLIC PANEL STAT 10/07/2024 2:04 AM CHUCKING LATHE OPERATOR CBC W/DIFF AUTOMATED STAT 10/07/2024 2:04 AM CHUCKING LATHE OPERATOR ECG 12-LEAD STAT 09/13/2024 1:59 AM CHUCKING LATHE OPERATOR TROPONIN, QUANT STAT 09/13/2024 1:50 AM CHUCKING LATHE OPERATOR XR CHEST PORTABLE STAT 09/12/2024 11: 16 PM CHUCKING LATHE OPERATOR C-REACTIVE PROTEIN STAT 09/12/2024 10 :59 PM CHUCKING LATHE OPERATOR TROPONIN, QUANT STAT 09/12/2024 10:59 PM CHUCKING LATHE OPERATOR COMPREHENSIVE METABOLIC PANEL STAT 09/12/2024 10:59 PM CHUCKING LATHE OPERATOR CBC W/DIFF AUTOMATED STAT 09/12/2024 10:59 PM CHUCKING LATHE OPERATOR SED RATE, ERYTHROCYTE (ESR) STAT 09/12/2024 10:53 PM CHUCKING LATHE OPERATOR ECG 12-LEAD STAT 09/12/2024 10:52 PM CHUCKING LATHE OPERATOR from Last 3 Months Results * CT ABD+PEL W IV CON ONLY (10/07/2024 2:23 AM CHUCKING LATHE OPERATOR) Anatomical Region Laterality Modality Abdomen Computed Tomogra phy 10/07/2024 2:25 AM CHUCKING LATHE OPERATOR Impressions 10/07/2024 2:32 AM CHUCKING LATHE OPERATOR IMPRESSION: 1. No definite acute CT findings within the abdomen or pelvis. 2. Multiple hypodense foci within the kidneys that most likely represent cysts. The largest measures approximately 1.5 cm within the midportion of the right kidney which appears mild to moderately complex. Nonemergent renal ultrasound could be beneficial for further characterization. Referred By: Interpreted By: Jeremiah Sam MD, 10/07/2024 2:25 AM Narrative 10/07/2024 2:32 AM CHUCKING LATHE OPERATOR [address] [address] EXAMINATION: CT ABD+PEL W CON, 10/07/2024 2:25 AM TECHNIQUE: Computed tomographic images of the abdomen and pelvis were obtained after the administration of 100 mL of Isovue-370 injected through the left forearm IV, without evidence of adverse reaction. Additional coronal and sagittal reformatted images were generated. A dose lowering technique was used for this procedure, which may include, but is not limited to, dose reduction technique, automated exposure control, the use of iterative reconstruction, and ALARA (As Low As Reasonably Achievable) / Image Gently techniques. HISTORY: Red area on the side of the penial shaft. Patient reports redness and no drainage. Pericarditis. COMPARISON: CT abdomen and pelvis 10/19/2016 FINDINGS: Lung bases are well-aerated. Heart size is normal. ABDOMEN: The liver is normal in size and contour. There is a 0.3 cm hypodense focus involving the posterior segment of the right hepatic lobe (best seen on series 2 image 41) which could represent a hemangioma or tiny cyst, too small to characterize. Gallbladder is decompressed. No bile duct dilation. The pancreas is negative. The spleen is normal in size. Multiple hypodense foci within the kidneys that most likely represent cysts. The largest measures approximately 1.5 cm within the midportion of the right kidney which appears mild to moderately complex. No nephrolithiasis. No hydronephrosis. Caliber of the abdominal aorta is normal. No retroperitoneal adenopathy. PELVIS: The appendix appears normal. There is no bowel dilation or wall thickening. No free fluid within the abdomen or pelvis. No free intraperitoneal air. Pelvic phleboliths. Urinary bladder is relatively decompressed. No acute fracture nor destructive process of the visualized osseous structures. Procedure Note Jeremiah Sam MD - 10/07/[address] [address] EXAMINATION: CT ABD+PEL W CON, 10/07/2024 2:25 AM TECHNIQUE: Computed tomographic images of the abdomen and pelvis wereobtained after the administration of 100 mL of Isovue-370 injected throughthe left forearm IV, without evidence of adverse reaction. Additionalcoronal and sagittal reformatted images were generated. A dose loweringtechnique was used for this procedure, which may include, but is notlimited to, dose reduction technique, automated exposure control, the useof iterative reconstruction, and ALARA (As Low As Reasonably Achievable) /Image Gently techniques. HISTORY: Red area on the side of the penial shaft. Patient reports rednessand no drainage. Pericarditis. COMPARISON: CT abdomen and pelvis 10/19/2016 FINDINGS: Lung bases are well-aerated. Heart size is normal. ABDOMEN: The liver is normal in size and contour. There is a 0.3 cmhypodense focus involving the posterior segment of the right hepatic lobe(best seen on series 2 image 41) which could represent a hemangioma ortiny cyst, too small to characterize. Gallbladder is decompressed. Nobile duct dilation. The pancreas is negative. The spleen is normal insize. Multiple hypodense foci within the kidneys that most likelyrepresent cysts. The largest measures approximately 1.5 cm within themidportion of the right kidney which appears mild to moderately complex.No nephrolithiasis. No hydronephrosis. Caliber of the abdominal aorta isnormal. No retroperitoneal adenopathy. PELVIS: The appendix appears normal. There is no bowel dilation or wallthickening. No free fluid within the abdomen or pelvis. No freeintraperitoneal air. Pelvic phleboliths. Urinary bladder is relativelydecompressed. No acute fracture nor destructive process of the visualizedosseous structures. IMPRESSION: 1. No definite acute CT findings within the abdomen or pelvis. 2. Multiple hypodense foci within the kidneys that most likely representcysts. The largest measures approximately 1.5 cm within the midportion ofthe right kidney which appears mild to moderately complex. Nonemergentrenal ultrasound could be beneficial for further characterization. Referred By: Interpreted By: Jeremiah Sam MD, 10/07/2024 2:25 AM [address] [place] [address] Final Result * (ABNORMAL) COMPREHENSIVE METABOLIC PANEL (10/07/2024 2:04 AM CHUCKING LATHE OPERATOR) Only the most recent of2 resultswithin the time period is included. GLUCOSE 115(H) 70 - 99 MG/DL 10/07/2024 2:54 AM [facility] BUN 14 7 - 18 MG/DL 10/07/2024 2:54 AM [facility] CREATININE S/P/B 1.24 0.7 - 1.3 MG/DL 10/07/2024 2:54 AM [facility] SODIUM S/P/B 140 136 - 145 MMOL/L 10/07/2024 2:54 AM [facility] POTASSIUM S/P/B 3.7 3.5 - 5.1 MMOL/L 10/07/2024 2:54 AM [facility] CHLORIDE S/P/B 110 97 - 115 MMOL/L 10/07/2024 2:54 AM [facility] CO2 28.8 21 - 32 MMOL/L 10/07/2024 2:54 AM [facility] CALCIUM S/P/B 8.4(L) 8.5 - 10.1 MG/DL 10/07/2024 2:54 AM [facility] BILIRUBIN TOTAL S/P/B 0.2 0.2 - 1.2 MG/DL 10/07/2024 2:54 AM [facility] Comment: THIS ASSAY IS NOT RECOMMENDED FOR PATIENTS UNDERGOING TREATMENT WITH ELTROMBOPAG DUE TO THE POTENTIAL FOR FALSELY ELEVATED RESULTS. TOTAL PROTEIN S/P/B 7.3 6.4 - 8.2 G/DL 10/07/2024 2:54 AM [facility] ALBUMIN S/P/B 3.4 3.4 - 5.0 G/DL 10/07/2024 2:54 AM [facility] AST 15 15 - 37 U/L 10/07/2024 2:54 AM [facility] ALT 26 16 - 60 U/L 10/07/2024 2:54 AM [facility] ALKALINE PHOSPHATASE S/P/B 71 50 - 136 U/L 10/07/2024 2:54 AM [facility] ANION GAP 1.2(L) 2 - 10 MMOL/L 10/07/2024 2:54 AM [facility] BUN CREATININE RATIO 11.3 6 - 26 10/07/2024 2:54 AM [facility] A/G RATIO 0.9(L) 1.0 - 2.0 RATIO 10/07/2024 2:54 AM [facility] GFR ESTIMATE 79(L) >90 ML/MIN/1.7 3 M2 10/07/2024 2:54 AM [facility] Comment: NOTE: eGFR is not calculated for patients <18 years of age or gender unknown. This is an estimated GFR calculation using the new CKD EPI creatinine equation without race and so does not require a correction factor for race. This estimated GFR should not be used for calculating drug doses. 10/07/2024 2:04 AM CHUCKING LATHE OPERATOR [facility] Final Result [facility] [address] [place] [address], * (ABNORMAL) CBC W/DIFF AUTOMATED (10/07/2024 2:04 AM CHUCKING LATHE OPERATOR) Only the most recent of2 resultswithin the time period is included. WBC 6.53 4.5 - 11.0 x10'3/uL 10/07/2024 2:19 AM [facility] RBC 4.62(L) 4.70 - 6.10 x10'6/uL 10/07/2024 2:19 AM [facility] HGB 13.0(L) 14.0 - 18.0 G/DL 10/07/2024 2:19 AM [facility] HCT 41.1(L) 43.0 - 54.0 % 10/07/2024 2:19 AM [facility] MCV 89.0 80.0 - 94.0 FL 10/07/2024 2:19 AM [facility] MCH 28.1 27.0 - 31.0 PG 10/07/2024 2:19 AM [facility] MCHC 31.6(L) 32.0 - 36.0 G/DL 10/07/2024 2:19 AM [facility] RDW 13.2 11.5 - 14.5 % 10/07/2024 2:19 AM [facility] PLT 298 130 - 400 x10'3/uL 10/07/2024 2:19 AM [facility] MPV 9.8 9.3 - 12.2 FL 10/07/2024 2:19 AM [facility] DIFFERENTIAL TYPE AUTOMATED DIFFERENTIAL 10/07/2024 2:19 AM [facility] NEUTROPHILS % 61.9 % 10/07/2024 2:19 AM [facility] LYMPHOCYTES % 24.0 % 10/07/2024 2:19 AM [facility] MONOCYTES % 11.2 % 10/07/2024 2:19 AM [facility] EOSINOPHILS 2.0 % 10/07/2024 2:19 AM [facility] BASOPHILS 0.6 % 10/07/2024 2:19 AM [facility] IMMATURE GRANS % 0.3 % 10/08/19 2:19 AM [facility] ABS. NEUTROPHILS 4.04 1.80 - 7.70 x10'3/uL 10/07/2024 2:19 AM [facility] ABS. LYMPHOCYTES 1.57 1.00 - 4.80 x10'3/uL 10/07/2024 2:19 AM [facility] ABS. MONOCYTES 0.73 0.30 - 0.82 x10'3/uL 10/07/2024 2:19 AM [facility] ABS. EOSINOPHILS 0.13 0.04 - 0.54 x10'3/uL 10/07/2024 2:19 AM [facility] ABS. BASOPHILS 0.04 0.01 - 0.08 x10'3/uL 10/07/2024 2:19 AM [facility] ABS. IMMATURE GRANULOCYTES 0.02 0.00 - 0.49 x10'3/uL 10/07/2024 2:19 AM [facility] 10/07/2024 2:04 AM CHUCKING LATHE OPERATOR [facility] Final Result [facility] [address] [place] [id number], * LIPASE (10/07/2024 2:04 AM CHUCKING LATHE OPERATOR) LIPASE 32 13 - 75 UNITS/L 10/07/2024 2:54 AM CHUCKING LATHE OPERATOR [facility] 10/07/2024 2:04 AM CHUCKING LATHE OPERATOR [facility] Final Result Performing Organization Address [facility] Co de Phone Number [facility] [address] [place] [id number], * ECG 12 lead (09/13/2024 1:59 AM CHUCKING LATHE OPERATOR) Only the most recent of2 resultswithin the time period is included. 09/13/2024 1:59 AM CHUCKING LATHE OPERATOR Narrative [facility] ([facility] RAD - 09/13/2024 1:54 PM CHUCKING LATHE OPERATOR [address] Test Date: 2024-09-13 Pat Name: FLACO BEST Department: 41 Room: [facility] Gender: Male Certification And Selection Specialist: [id number] : 1990 Requested By: BREANNE GRIFFIN Order Number: [id number] Reading MD: Angie Vilchis Measurements Intervals [place] Rate: 68 P: 29 WI: 144 QRS: 81 QRSD: 120 T: 43 QT: 390 QTc: 415 Interpretive Statements SINUS RHYTHM POSSIBLE LEFT VENTRICULAR HYPERTROPHY [VOLTAGE CRITERIA PLUS LAE OR QRS WIDENING] ST ELEVATION, CONSIDER ANTEROLATERAL and INFERIOR INJURY [MARKED ST ELEVATION W/O NORMALLY INFLECTED T WAVE IN V3-V6] +++ ACUTE [place] +++ Compared to ECG 09/12/2024 22:52:04 No significant changes KING LATHE OPERATOR Procedure Note Angie Vilchis MD - 09/13/[address] Test Date: 2024-09-13 Pat Name: FLACO BEST Department: 41 Room: [facility] Gender: Male Certification And Selection Specialist: [id number] : 1990 Requested By: BREANNE GRIFFIN Order Number: [id number] Reading MD: Angie Vilchis Measurements Intervals [place] Rate: 68 P: 29 WI: 144 QRS: 81 QRSD: 120 T: 43 QT: 390 QTc: 415 Interpretive Statements SINUS RHYTHM POSSIBLE LEFT VENTRICULAR HYPERTROPHY [VOLTAGE CRITERIA PLUS LAE OR QRS WIDENING] ST ELEVATION, CONSIDER ANTEROLATERAL and INFERIOR INJURY [MARKED STELEVATION W/O NORMALLY INFLECTED T WAVE IN V3-V6] +++ ACUTE [place] +++ Compared to ECG 09/12/2024 22:52:04 No significant changes KING LATHE OPERATOR us Breanne [facility] ECG ORDERABLES Final Result [facility] ([facility]) RAD * TROPONIN, QUANT (09/13/2024 1:50 AM CHUCKING LATHE OPERATOR) Only the most recent of2 resultswithin the time period is included. TROPONIN I HIGH SENSITIVITY 34 <79 ng/L 09/13/2024 2:24 AM CHUCKING LATHE OPERATOR [facility] Comment: HIGH DOSES OF BIOTIN, TROPONIN-SPECIFIC AUTOANTIBODIES, AND ANTIBODY THERAPY CONTAINING HAMA MAY INTERFERE WITH THIS TEST RESULT. CORRELATION TO CLINICAL HISTORY AND PRESENTATION RECOMMENDED. 09/13/2024 1:50 AM CHUCKING LATHE OPERATOR [facility] Final Result [facility] [address] [place] [address], * XR CHEST PORTABLE (09/12/2024 11:16 PM CHUCKING LATHE OPERATOR) Anatomical Region Laterality Modality Chest Radiographic Macarena ging 09/12/2024 11:1 8 PM CHUCKING LATHE OPERATOR Impressions 09/12/2024 11:18 PM CHUCKING LATHE OPERATOR IMPRESSION: ======== 1. No acute cardiopulmonary findings. Referred By: Interpreted By: Alexis Clarke MD, 09/12/2024 11:18 PM Narrative 09/12/2024 11:18 PM CHUCKING LATHE OPERATOR [address] [address] Examination: Chest x-ray 1 view Exam Date/Time: 09/12/2024 11:11 PM Reason For Exam: Chest pain Mid chest pain radiates to the left arm Comparison: 10/18/2023 chest radiograph Technique: Single AP view of the chest was obtained. Findings: Heart size is within normal limits. Pulmonary vasculature is within normal limits. There is no large pleural effusion or pneumothorax. There is no focal infiltrate or consolidative change. ======== Procedure Note Alexis Clarke MD - 09/12/[address] [address] Examination: Chest x-ray 1 view Exam Date/Time: 09/12/2024 11:11 PM Reason For Exam: Chest pain Mid chest pain radiates to the left arm Comparison: 10/18/2023 chest radiograph Technique: Single AP view of the chest was obtained. Findings: Heart size is within normal limits. Pulmonary vasculature iswithin normal limits. There is no large pleural effusion or pneumothorax.There is no focal infiltrate or consolidative change. ======== IMPRESSION: ======== 1. No acute cardiopulmonary findings. Referred By: Interpreted By: Alexis Clarke MD, 09/12/2024 11:18 PM us Bre[facility] Final Result * C-REACTIVE PROTEIN (09/12/2024 10:59 PM CHUCKING LATHE OPERATOR) C-REACTIVE PROTEIN <0.29 <0.29 mg/dL 09/12/2024 11:36 PM CHUCKING LATHE OPERATOR [facility] 09/12/2024 10:5 9 PM CHUCKING LATHE OPERATOR us [facility] Final Result Performing Organization Address [facility] Co de Phone Number [facility] [address] [place] [id number], [place] [phone] * SED RATE, ERYTHROCYTE (ESR) (09/12/2024 10:53 PM CHUCKING LATHE OPERATOR) ESR 9 <15 MM/HR 09/12/2024 11:37 PM CHUCKING LATHE OPERATOR [facility] Comment:Testing performed on [employer] iSED. 09/12/2024 10:5 3 PM CHUCKING LATHE OPERATOR us [facility] Final Result [facility] [address] [place] [address], [place] [phone] from Last 3 Months Insurance [employer] Advance Directives * Full Code (Latest Code Status on File) Date Activated Date Inactivated Comments 06/16/2023 10:32 PM 06/18/2023 1:59 PM Care Teams Energy Trader Relationship Specialty Start Date End Date None, Provider, PCP - General UNKNOWN PHYSICIAN SPECIALTY 06/16/23
--- OUTSIDE RECORDS SUMMARY | 2024-10-09 21:42 | XMS_ITS | Referral Summary ---
[facility] Address [address] [place] [address] Care Team Providers Care Car Repair Supervisor Name Role Phone No, Physician Primary Care Provider [phone] Encounters Date Type Department Care Team Description 09/28/2024 2:49 AM CUSTOMER EXPERIENCE ANALYST - 10/01/2024 11:55 AM [facility] Hospital Encounter [facility] [address] [place] [id number] Torres Armenta MD L'Ecuyer, Suzanne, MD Svancarek, MD Tyo Wilks Rawan Ahmad, MD Suicidal ideation (Primary Dx); Abdominal pain; Adjustment disorders, with mixed anxiety and depressed mood; 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]; Cannabis use disorder, moderate, dependence (CMS/HCC) (HCC) [F12.20]; Pericarditis [I31.9]; Personality disorder, unspecified ([facility]) [F60.9]; Gastroesophageal reflux disease without esophagitis [K21.9] Discharge Disposition: Discharge to home or self care 09/19/2024 5:09 PM CUSTOMER EXPERIENCE ANALYST - 09/19/2024 5:50 PM [facility] Emergency [facility] Emergency Department [address] [place] [address] Kenny Curran MD Pericarditis (Primary Dx) Discharge Disposition: Discharge to home or self care 09/14/2024 12:06 AM CUSTOMER EXPERIENCE ANALYST - 09/14/2024 7:08 AM [facility] Emergency [facility] Emergency Department [address] [place] [address] Alexis Santos MD Abdominal pain (Primary Dx) Discharge Disposition: Discharge to home or self care 09/13/2024 [facility]phone [facility] [address] [place] [address] 4th Floor [address] [place] [address] Lara Herrera 09/08/2024 Telephone [facility] [address] [place] [address] 4th Floor [address] [place] [address] Lara Herrera 09/07/2024 1:21 AM [facility] 09/07/2024 6:46 AM [facility] Emergency [facility] Emergency Department [address] [place] [address] Wilmer Muro MD Chest pain, unspecified type (Primary Dx); Personality disorder, unspecified (HCC); Adjustment disorder, unspecified type; Asthma, unspecified asthma severity, unspecified whether complicated, unspecified whether persistent; Cannabis use disorder, moderate, dependence (HCC); Pain of finger of right hand Discharge Disposition: Discharge to home or self care from Last 3 Months Allergies No known active allergies Medications colchicine [...] 09/30/2024 Assessment & Plan (09/30/2024 9:09 AM CUSTOMER EXPERIENCE ANALYST): Will try to obtain iron studies I asked SW to help w/ PCP followup Epigastric pain 09/30/2024 Assessment & Plan (09/30/2024 9:17 AM CUSTOMER EXPERIENCE ANALYST): When asked where his pericarditis pain is, he points to the epigastrium. When I saw him in 11/2023, I had requested an H pylori stool antigen, which we were not able to obtain. -Try again to obtain H pylori antigen (especially w/ history of anemia) Depression 09/29/2024 Assessment & Plan (09/29/2024 1:17 PM CUSTOMER EXPERIENCE ANALYST): As per psychiatry Will addon a TSH Pericarditis 09/29/2024 Assessment & Plan (09/30/2024 9:10 AM CUSTOMER EXPERIENCE ANALYST): Currently asymptomatic. Will obtain EKG. Will restart colchicine if symptoms recurs EKG w/ diffuse ST elevation in II, III, aVF, and V1-6, with no KS depression This might also be early repolarization See my notes from 11/16/23 and 11/17/23 for my thought process then He has a biological technician (Dr Rivera, in [place]) with whom he can follow up Routine general medical exam ination at a health care facility 09/29/2024 Assessment & Plan (09/29/2024 1:17 PM CUSTOMER EXPERIENCE ANALYST): HIV, RPR negative Will recheck here Addon B12, TSH GERD (gastroesophageal reflux disease) Assessment & Plan (09/29/2024 1:18 PM CUSTOMER EXPERIENCE ANALYST): Hold off PPI for now as he notes no symptoms of acid reflux. Low threshold to restart. The chest pain (when present) he notes is epigastric so that may be a component of GERD Renal lesion 09/29/2024 Assessment & Plan (09/30/2024 9:09 AM CUSTOMER EXPERIENCE ANALYST): 11/02/23 CT: There are 3 low-attenuation lesions [...] 08/14/23, 11/02/23 w/ diffuse ST elevation, w/ KS depression) and a negative ischemic workup (including [...] follows w/ Dr Cat Choudhary (cardiology w/ [facility]), which he will follow up with Plan: [...] 11/16/2023 Assessment & Plan (09/30/2024 9:11 AM CUSTOMER EXPERIENCE ANALYST): B12 300, same as 11/2023. Will replete [...] 11/16/2023 Assessment & Plan (09/30/2024 9:11 AM CUSTOMER EXPERIENCE ANALYST): Late latent, appropriately treated. See my 11/15/24 note Assessment & Plan (11/16/2023 1:25 PM CDT): As per my colleague Dr Bynum (see 09/07/23 medicine c/s note): - Has history of Syphilis, treated in 2013 , -Treponema ab + and RPR 1:4 on 08/29/23 when tested at [facility] ED Contacted [facility] ( [place] ) for info To see if titers are coming down , left message with Nurse ( [phone]): Called back received, Patient diagnosed with late latent syphilis at [facility] in [place] on 10-11 : +RPR titer 1 :256, treponema -EIA positive Completed treatment with benzathine penicillin G x 3 doses given on November 21 2013, November 28 2013 and December 052013 So appropriately treated Lumbar strain, initial encounter 09/16/2023 Anemia 09/08/2023 Assessment & Plan (09/08/2023 8:05 PM CUSTOMER EXPERIENCE ANALYST): -possible hx of GI bleed in June, [...] disease) Assessment & Plan (09/08/2023 5:10 AM CUSTOMER EXPERIENCE ANALYST): -continue pepcid Adjustment disorders, with mixed anxiety and dep ressed mood 09/07/2023 Assessment & Plan (09/08/2023 4:53 AM CUSTOMER EXPERIENCE ANALYST): Per Psychiatry Cannabis use disorder, moderate, dependence 01/2024 Assessment & Plan (09/08/2023 4:53 AM CUSTOMER EXPERIENCE ANALYST): Per Psychiatry History of syphilis 09/07/2023 Assessment & Plan (09/08/2023 12:28 PM CUSTOMER EXPERIENCE ANALYST): - Has history of Syphilis, treated in 2013 , -Treponema ab + and RPR 1:4 on 08/29/23 when tested at [facility] ED Contacted [facility] ( [place] ) for info To see if titers are coming down , left message with Nurse ( [phone]): Called back received, Patient diagnosed with late latent syphilis at [facility] in [place] on 10-11 : +RPR titer 1 :256, [...] & Plan (11/16/2023 4:40 PM CDT): Mr. Ecsobar is a 33yo M with a hx [...] recs Assessment & Plan (07/27/2023 10:01 AM CUSTOMER EXPERIENCE ANALYST): Wes has been struggling for the last 4 years with unstable realtionships, unstable housing, difficulty finding and maintaining employment, and in and out of correction/assisted/probation. He says that he is sad about [...] Med recs apprec; h/o pericarditis Swer to [facility] with follow-up and dispo Assessment & Plan (07/26/2023 9:44 AM CUSTOMER EXPERIENCE ANALYST): Wes has been struggling for the last 4 years with unstable realtionships, unstable housing, difficulty finding and maintaining employment, and in and out of correction/assisted/probation. He says that he is sad about [...] Med recs apprec; h/o pericarditis Swer to [facility] with follow-up and dispo Assessment & Plan (07/25/2023 12:24 PM CUSTOMER EXPERIENCE ANALYST): Wes has been struggling for the last 4 years with unstable realtionships, unstable housing, difficulty finding and maintaining employment, and in and out of correction/assisted/probation. He says that he is sad about [...] Med recs apprec; h/o pericarditis Swer to [facility] with follow-up and dispo Assessment & Plan [...] was started on Abilify and Depakote in [place], and reports that his visual and auditory hallucinations have resolved. - Start Sertraline 50mg, consider titrating - Obtain further information about the hallucinations - Haldol 5 p.o. or Haldol 5/Ativan 2 IM PRN for agitation - Suicide/elopement/safety precautions - Therapeutic milieu - q15 min safety checks Asthma 05/22/2023 Assessment & Plan (09/29/2024 1:14 PM CUSTOMER EXPERIENCE ANALYST): Mild. Prn albuterol Assessment & Plan (09/08/2023 5:12 AM CUSTOMER EXPERIENCE ANALYST): - no PFTs available , currently not in exacerbation, - PRN albuteral Assessment & Plan (07/25/2023 10:37 AM CUSTOMER EXPERIENCE ANALYST): Intermittent. No symptoms. Uses albuterol prn at [...] 09/07/202310/31 Assessment & Plan (09/08/2023 8:04 PM CUSTOMER EXPERIENCE ANALYST): - patient has not been able to afford colchicine and reports benefit when getting doses in ED visits - continue colchicine 0.6 mg po BID and monitor for side effects, it should be held if nausea, vomiting, diarrhea -Hold NSAIDS as -he as not tolerated with significant Gi side effects -Patient was seen by Cardiology as outpatient on 09/02/[address] [facility] ([facility]) and has [...] psychiatry Assessment & Plan (07/25/2023 10:36 AM CUSTOMER EXPERIENCE ANALYST): Pt w/ hx of depression and anxiety presents w/ SI after grandmother passing. Didn't have intent or plan. Denies SI now -mgt per primary Social History Tobacco Use Types Packs/Day Years Used Date Smoking Tobacco: Former Cigarettes Tobacco Cessation:Counseling Given: Not Answered Alcohol Use Standard Drinks/Week Comments Defer 0 (1 standard drink = 0.6 oz pur e alcohol) [facility] Utilities Answer Date Recorded In the past 12 months has e [employer], gas, oil, or water company threatened to shut off services in your [...] 09/29/2024 How often do you attend chur or mormon services? Never 09/29/2024 Do you belong to any clubs o r organizations such as mormon groups, unions, fraternal or athletic groups, or [...] staff should administer the PHQ-9) 2 09/07/2023 [place] [facility] Occupat ional [facility] - Occupational Stress [...] place to sleep or slept in a group home (including now)? Yes 10/02/2023 Housing Stability Vital Sign Answer Pavel e Recorded In the last 12 months, was t here a time when you were not able to pay the mortgage or rent on time? No 09/29/2024 Number of Times Moved in the Last Year Not on fi le 09/29/2024 At any time in the past 12 m [facility], were you homeless or living in a group home (including now)? No 09/29/2024 Personal Safety Answer [...] on file Legal Sex Male 5:49 PM CUSTOMER EXPERIENCE ANALYST Gender Identity Not on file Sexual Orientation Not on file Last Filed Vital Signs Vital Sign Reading Time Taken Comments Blood Pressure 161/95 10/01/2024 7:56 AM CUSTOMER EXPERIENCE ANALYST Pulse 75 10/01/2024 7:56 AM CUSTOMER EXPERIENCE ANALYST Temperature 37.3 C (99.1 F) 10/01/2024 7:56 AM CUSTOMER EXPERIENCE ANALYST Respiratory Rate 20 10/01/2024 7:56 AM CUSTOMER EXPERIENCE ANALYST Oxygen Saturation 97% 10/01/2024 7:56 AM CUSTOMER EXPERIENCE ANALYST Inhaled Oxygen Concentration - - Weight 72.6 kg (160 lb 1.6 oz) 09/28/2024 2:30 P M CUSTOMER EXPERIENCE ANALYST Height 177.8 cm (5' 10 ) 09/28/2024 2:30 PM CUSTOMER EXPERIENCE ANALYST Body Mass Index 22.97 09/28/2024 2:30 PM CUSTOMER EXPERIENCE ANALYST Functional Status * Are you deaf or do you have serious difficulty hearing? Answer Date of Assessment Author No 09/29/2024 10:53 AM Rome Freedman LCSW * Are you blind or do you have serious difficulty seeing, even when wearing glasses? Answer Date of Assessment Author No 09/29/2024 10:53 AM Rome Freedman LCSW * Do you have serious difficulty walking or climbing stairs? Answer Date of Assessment Author No 09/29/2024 10:53 AM Rome Freedman LCSW * Do you have serious difficulty dressing or bathing? Answer Date of Assessment Author No 09/29/2024 10:53 AM Rome Freedman LCSW * Because of a physical, mental, or emotional condition, do you have serious difficulty doing errandsalone such as visiting the doctor? Answer Date of Assessment Author No 09/29/2024 10:53 AM Rome Freedman LCSW Mental Status * Because of a physical, mental, or emotional condition, do you have serious difficulty concentrating, remembering, or making decisions? (5 years old or older) Answer Entry Date Author No 09/29/2024 10:53 AM Rome Freedman LCSW Plan of Treatment Not on file Procedures Procedure Name Priority Date/Time Associated Diagnosis Comments N. GONORRHOEAE/C. TRACHOMATIS AMPLIFICATION Routine 09/30/2024 11:18 AM CUSTOMER EXPERIENCE ANALYST URINALYSIS, MICROSCOPIC ONLY STAT 09/28/2024 3:44 AM CUSTOMER EXPERIENCE ANALYST DRUGS OF ABUSE SCREEN, URINE WITHOUT CONFIRMATION STAT 09/28/2024 3:44 AM CUSTOMER EXPERIENCE ANALYST URINALYSIS AND REFLEX TO MICROSCOPIC STAT 09/28/2024 3:44 AM CUSTOMER EXPERIENCE ANALYST IRON PROFILE W/ IBC STAT 09/28/2024 3 :15 AM CUSTOMER EXPERIENCE ANALYST FERRITIN STAT 09/28/2024 3:15 AM CUSTOMER EXPERIENCE ANALYST TSH STAT 09/28/2024 3:15 AM CUSTOMER EXPERIENCE ANALYST VITAMIN B12 STAT 09/28/2024 3:15 AM CUSTOMER EXPERIENCE ANALYST ETHANOL STAT 09/28/2024 3:15 AM CUSTOMER EXPERIENCE ANALYST LIPID PANEL STAT 09/28/2024 1:27 AM CUSTOMER EXPERIENCE ANALYST EGFR STAT 09/28/2024 1:27 AM CUSTOMER EXPERIENCE ANALYST DIFFERENTIAL AUTO STAT 09/28/2024 1:2 7 AM CUSTOMER EXPERIENCE ANALYST LIPASE STAT 09/28/2024 1:27 AM CUSTOMER EXPERIENCE ANALYST COMPREHENSIVE METABOLIC PANEL STAT 09/28/2024 1:27 AM CUSTOMER EXPERIENCE ANALYST CBC WITH AUTO DIFFERENTIAL STAT 09/28/2024 1:27 AM CUSTOMER EXPERIENCE ANALYST RPR STAT 09/28/2024 1:27 AM CUSTOMER EXPERIENCE ANALYST HIV 1/2 ANTIBODY PLUS P24 ANTIGEN STAT 09/28/2024 1:27 AM CUSTOMER EXPERIENCE ANALYST RESPIRATORY PATHOGEN PANEL STAT 09/27/2024 10:38 PM CUSTOMER EXPERIENCE ANALYST TROPONIN I HIGH-SENSITIVITY 2-HOUR Timed 09/19/2024 5:19 PM CUSTOMER EXPERIENCE ANALYST XR CHEST PA LATERAL 2 VIEWS ED 09/19/2024 3:06 PM CUSTOMER EXPERIENCE ANALYST ECG 12-LEAD STAT 09/19/2024 3:00 PM CUSTOMER EXPERIENCE ANALYST EGFR STAT 09/19/2024 2:56 PM CUSTOMER EXPERIENCE ANALYST DIFFERENTIAL AUTO STAT 09/19/2024 2:5 6 PM CUSTOMER EXPERIENCE ANALYST TROPONIN I HIGH-SENSITIVITY SERIES (BASELINE, 2HR, 4HR, 6HR) STAT 09/19/2024 2:56 PM CUSTOMER EXPERIENCE ANALYST COMPREHENSIVE METABOLIC PANEL STAT 09/19/2024 2:56 PM CUSTOMER EXPERIENCE ANALYST CBC WITH AUTO DIFFERENTIAL STAT 09/19/2024 2:56 PM CUSTOMER EXPERIENCE ANALYST EGFR Routine 09/14/2024 4:26 AM CUSTOMER EXPERIENCE ANALYST LIPASE STAT 09/14/2024 4:26 AM CUSTOMER EXPERIENCE ANALYST COMPREHENSIVE METABOLIC PANEL Routine 09/14/2024 4:26 AM CUSTOMER EXPERIENCE ANALYST CBC WITHOUT DIFFERENTIAL Routine 09/14/2024 4:26 AM CUSTOMER EXPERIENCE ANALYST URINALYSIS, MICROSCOPIC ONLY Routine 09/14/2024 1:16 AM CUSTOMER EXPERIENCE ANALYST URINALYSIS AND REFLEX TO MICROSCOPIC AND CULTURE Routine 09/14/2024 1:16 AM CUSTOMER EXPERIENCE ANALYST POCUS CARDIAC 09/07/2024 3:41 AM CUSTOMER EXPERIENCE ANALYST TROPONIN I HIGH-SENSITIVITY 4-HOUR Timed 09/07/2024 2:19 AM CUSTOMER EXPERIENCE ANALYST TROPONIN I HIGH-SENSITIVITY 2-HOUR Timed 09/06/2024 10:53 PM CUSTOMER EXPERIENCE ANALYST ECG 12-LEAD STAT 09/06/2024 9:44 PM CUSTOMER EXPERIENCE ANALYST EGFR STAT 09/06/2024 9:13 PM CUSTOMER EXPERIENCE ANALYST DIFFERENTIAL AUTO STAT 09/06/2024 9:1 3 PM CUSTOMER EXPERIENCE ANALYST TROPONIN I HIGH-SENSITIVITY SERIES (BASELINE, 2HR, 4HR, 6HR) STAT 09/06/2024 9:13 PM CUSTOMER EXPERIENCE ANALYST COMPREHENSIVE METABOLIC PANEL STAT 09/06/2024 9:13 PM CUSTOMER EXPERIENCE ANALYST CBC WITH AUTO DIFFERENTIAL STAT 09/06/2024 9:13 PM CUSTOMER EXPERIENCE ANALYST XR FINGER RIGHT 2 OR MORE VIEWS ED 09/06/2024 8:43 PM CUSTOMER EXPERIENCE ANALYST XR CHEST PA LATERAL 2 VIEWS ED 09/06/2024 8:43 PM CUSTOMER EXPERIENCE ANALYST from Last 3 Months Results * N. gonorrhoeae/C. trachomatis Amplification Urine (09/30/2024 11:18 AM CUSTOMER EXPERIENCE ANALYST) Pathologist [facility] [place] C. trachomatis Not Detected Not Detected [facility] N. gonorrhoeae Not Detected Not Detected [facility] Comment: Interpretive Data This assay detects Chlamydia trachomatis and Neisseria gonorrhoeae by nucleic acid amplification testing (NAAT). This assay has been cleared by the [place] Food and Drug administration. The performance characteristics of this test have been verified by the [facility] laboratory. The performance characteristics of this test have not been evaluated in individuals less than 14 years of age. Current Interpretive Data last revised 2023. Urine (None) 09/30/2024 11:1 8 AM CUSTOMER EXPERIENCE ANALYST 10/01/2024 2:05 PM CUSTOMER EXPERIENCE ANALYST us Max Lira MD LAB MICROBIOLOGY - GENERA L ORDERABLES Final Result [facility] [place] [address] [facility] * (ABNORMAL) Urinalysis reflex to microscopic (09/28/2024 3:44 AM CUSTOMER EXPERIENCE ANALYST) Color, ur Yellow Yellow Clarity, ur Clear Clear [facility] Specific gravity, ur 1.033(H) 1.003 - 1.030 [facility] pH, urine 6.0 [facility] Comment: Interpretive Data U rine pH is affected by diet, medications, systemic acid-base disturbances, and renal tubular function. pH may affect urinary stone formation. For example, urine pH below 6.0 may help reduce the tendency for calcium phosphate stones and pH greater than 6.0 may reduce the tendency for uric acid stone formation. Source: [facility] Current Interpretive Data was last revised on 2017 Protein, ur ql 1+(A) Negative [facility] Glucose, ur ql Negative Negative [facility] Ketones, ur Trace Negative [facility] Bilirubin, ur Negative Negative [facility] Blood, ur 1+(A) Negative [facility] Urobilinogen, ur <2.0 <2.0 mg/dL [facility] Nitrite, ur Negative Negative [facility] Leukocyte esterase, ur Negative Negative [facility] UA reflex comment Reflex to microscopic UA will be performed. [facility] Urine 09/28/2024 3:44 AM CUSTOMER EXPERIENCE ANALYST 09/28/2024 3:52 AM CUSTOMER EXPERIENCE ANALYST Torres Armenta MD LAB URINE ORDERABLES Vickie arreola Result [facility] [place] [address] * (ABNORMAL) Drugs of Abuse Screen, Urine without Confirmation (09/28/2024 3:44 AM CUSTOMER EXPERIENCE ANALYST) Pathologist [facility] [place] Amphetamine, ur Not Detected [facility] 500ng/mL Comment: Interpretive Data - Amphetamines: Samples containing greater than 500 ng/mL d-methamphetamine or other cross-reacting amphetamine compounds are reported as positive. Amphetamine immunoassays are subject to significant false positive rates due to cross-reactivity of non-amphetamine drugs. Confirmatory testing required for definitive results. Current Interpretive Data was last reviewed 2023. Barbiturates, ur Not Detected CutOff 200ng/mL [facility] Comment: Interpretive Data - Barbiturates: Samples containing greater than 200 ng/mL secobarbital or other cross-reacting barbiturate compounds are reported as positive. False positive and false negative results are possible. Confirmatory testing required for definitive results. Current Interpretive Data was last reviewed 2023. Benzodiazepines, ur Not Detected CutOff 100ng/mL [facility] Comment: Interpretive Data - Benzodiazepines: Samples containing greater than 100 ng/mL nordiazepam or other cross-reacting compounds are reported as positive. False positive and false negative results are possible. Confirmatory testing required for definitive results. Current Interpretive Data was last reviewed 2023. Cannabinoids, ur Screen Positive, presumptive (A) CutOff 50 ng/mL [facility] Comment: Interpretive Data - Cannabinoids: Samples containing greater than 50 ng/mL delta-9 THC -COOH or other cross- reacting compounds are reported as positive. False positive and false negative results are possible. Confirmatory testing required for definitive results. Current Interpretive Data was last reviewed 2023. Cocaine, ur Not Detected CutOff 150ng/mL [facility] Comment: Interpretive Data - Cocaine: Samples containing greater than 150 ng/mL benzoylecgonine or other cross- reacting compounds are reported as positive. False positive and false negative results are possible. Confirmatory testing required for definitive results. Current Interpretive Data was last reviewed 2023. Fentanyl, Ur Not Detected CutOff 5 ng/mL [facility] Comment: Interpretive Data - Fentanyl: Samples containing greater than 5 ng/mL norfentanyl, fentanyl, or other cross-reacting fentanyl compounds are reported as positive. False positive and false negative results are possible. Confirmatory testing required for definitive results. Current Interpretive Data was last reviewed 2023. Methadone, ur Not Detected CutOff 300ng/mL [facility] Comment: Interpretive Data - Methadone: Samples containing greater than 300 ng/mL d,l-methadone or other cross-reacting compounds are reported as positive. False positive and false negative results are possible. Confirmatory testing required for definitive results. Current Interpretive Data was last reviewed 2023. Opiates, ur Not Detected CutOff 300ng/mL [facility] Comment: Interpretive Data - Opiates: Samples containing greater than 300 ng/mL morphine or other cross-reacting compounds are reported as positive. False positive and false negative results are possible. Confirmatory testing required for definitive results. Current Interpretive Data was last reviewed 2023. Oxycodone, ur Not Detected CutOff 100ng/mL [facility] Comment: Interpretive Data - Oxycodone: Samples containing greater than 100 ng/mL oxycodone or other cross-reacting compounds are reported as positive. False positive and false negative results are possible. Confirmatory testing required for definitive results. Current Interpretive Data was last reviewed 2023. Phencyclidine, ur Not Detected CutOff 25 ng/mL [facility] Comment: Interpretive Data - Phencyclidine: Samples containing greater than 25 ng/mL phencyclidine or other cross-reacting compounds are reported as positive. False positive and false negative results are possible. Confirmatory testing required for definitive results. Current Interpretive Data was last reviewed 2023. Urine Creatinine 460 mg/dL [facility] Comment: Interpretive Data Urine Creatinine: < 10 mg/dL is extremely dilute = or > 10 but < 20 mg/dL is dilute = or > 20 mg/dL is normal Current Interpretive Data was last revised on 2017. Urine 09/28/2024 3:44 AM CUSTOMER EXPERIENCE ANALYST 09/28/2024 4:00 AM CUSTOMER EXPERIENCE ANALYST Narrative [facility] - 09/28/2024 4:43 AM CUSTOMER EXPERIENCE ANALYST Drug of Abuse screening is performed by immunoassay for medical purposes only. This is not to be used for Pain Management purposes. us Molly Haynes MD LAB URINE ORDERABL ES Edited Result - Final [facility] Department [place] [address] * (ABNORMAL) Urinalysis, microscopic only (09/28/2024 3:44 AM CUSTOMER EXPERIENCE ANALYST) WBC, ur 0-5 0 - 5 /HPF RBC, ur 0-2 0 - 2 /HPF [facility] Bacteria, ur 1+(A) [facility] Yeast, ur TRACE [facility] Mucous, ur Present(A) [facility] Amorphous crystals, ur 1+(A) [facility] Urine 09/28/2024 3:44 AM CUSTOMER EXPERIENCE ANALYST 09/28/2024 3:52 AM CUSTOMER EXPERIENCE ANALYST us Torres Armenta MD LAB URINE ORDERABLES Vickie l Result Performing Organization Address City/[facility]/ZIP Co de Phone Number [facility] [place] [address] * Iron profile w/ IBC (09/28/2024 3:15 AM CUSTOMER EXPERIENCE ANALYST) Iron See Comment 50 - 150 mcg/dL Comment: Credited; Hemolyzed Specimen Telephone report made to: [facility] on 09/29/2024 21:39:47 CUSTOMER EXPERIENCE ANALYST by rxy . TIBC See Comment 250 - 400 mcg/dL [facility] Comment: Credited; Hemolyzed Specimen Telephone report made to: destiny on 09/29/2024 21:39:47 CUSTOMER EXPERIENCE ANALYST by rxy . Unable to calculate exact result. Transferrin saturation See Comment 20 - 50 % [facility] Comment: Credited; Hemolyzed Specimen Telephone report made to: destiny on 09/29/2024 21:39:47 CUSTOMER EXPERIENCE ANALYST by rxy . Unable to calculate exact result. Blood 09/28/2024 3:15 AM CUSTOMER EXPERIENCE ANALYST 09/28/2024 3:25 AM CUSTOMER EXPERIENCE ANALYST us Destiny Ch MD LAB BLOOD ORDERABLES Final R esult Performing Organization Address City/[facility]/ZIP Co de Phone Number [facility] [place] [address] * TSH (09/28/2024 3:15 AM CUSTOMER EXPERIENCE ANALYST) Thyroid Stimulating Hormone 0.76 0.30 - 4.20 mcIUnit/mL Blood 09/28/2024 3:15 AM CUSTOMER EXPERIENCE ANALYST 09/28/2024 3:25 AM CUSTOMER EXPERIENCE ANALYST Destiny Ch MD LAB BLOOD ORDERABLES Final R esult Performing Organization Address [facility] de Phone Number [facility] [place] [address] * Ferritin (09/28/2024 3:15 AM CUSTOMER EXPERIENCE ANALYST) Pathologist [facility] [place] Ferritin See Comment 30 - 400 ng/mL Comment: Credited; Hemolyzed Specimen Telephone report made to: destiny on 09/29/2024 21:39:02 CUSTOMER EXPERIENCE ANALYST by RXY . Blood 09/28/2024 3:15 AM CUSTOMER EXPERIENCE ANALYST 09/28/2024 3:25 AM CUSTOMER EXPERIENCE ANALYST Destiny Ch MD LAB BLOOD ORDERABLES Final R esult Performing Organization Address [facility] de Phone Number [facility] [place] [address] * Vitamin B12 (09/28/2024 3:15 AM CUSTOMER EXPERIENCE ANALYST) [facility] Vitamin B12 307 230 - 1,250 pg/mL Blood 09/28/2024 3:15 AM CUSTOMER EXPERIENCE ANALYST 09/28/2024 3:25 AM CUSTOMER EXPERIENCE ANALYST Destiny Ch MD LAB BLOOD ORDERABLES Final R esult Performing Organization Address [facility] de Phone Number [facility] Department [place] [address] * Ethanol (09/28/2024 3:15 AM CUSTOMER EXPERIENCE ANALYST) [facility] Ethanol <10 <=10 mg/dL Comment: Hemolyzed; result may be falsely decreased Interpretive Data Legal limit of intoxication > or = 80 mg/dL Levels > or = 400 mg/dL are potentially TOXIC. Current interpretive data was last revised on 2018. Blood 09/28/2024 3:15 AM CUSTOMER EXPERIENCE ANALYST 09/28/2024 3:25 AM CUSTOMER EXPERIENCE ANALYST us Molly Haynes MD LAB BLOOD ORDERABL ES Final Result Performing Organization Address [facility] Co de Phone Number [facility] [place] [address] * eGFR (09/28/2024 1:27 AM CUSTOMER EXPERIENCE ANALYST) eGFR 80 >=60 mL/min/1. 73 m2 Comment: [...] last reviewed 2021. Blood 09/28/2024 1:27 AM CUSTOMER EXPERIENCE ANALYST 09/28/2024 1:45 AM CUSTOMER EXPERIENCE ANALYST us Torres Armenta MD LAB BLOOD ORDERABLES Vickie l Result Performing Organization Address City/[facility]/ZIP Co de Phone Number [facility] Department [place] [address] * (ABNORMAL) Differential, auto (09/28/2024 1:27 AM CUSTOMER EXPERIENCE ANALYST) Neutrophil abs 5.7 1.5 - 6.5 K/cumm Imm gran abs 0.0 0.0 - 0.1 K/cumm [facility] Lymphocyte abs 1.8 0.8 - 3.3 K/cumm [facility] Monocyte abs 1.0(H) 0.2 - 0.8 K/cumm [facility] Eosinophil abs 0.1 0.0 - 0.5 K/cumm [facility] Basophil abs 0.0 0.0 - 0.1 K/cumm [facility] Neutrophil pct 65.2 % [facility] Comment: Interpretive Data Percent cell count reference ranges are not reported, since discordance with absolute values may lead to misinterpretation of CBC data. Current Interpretive Data was last revised on 2017. Imm gran pct 0.5 % [facility] Comment: Interpretive Data Percent cell count reference ranges are not reported, since discordance with absolute values may lead to misinterpretation of CBC data. Current Interpretive Data was last revised on 2017. Lymphocyte pct 21.2 % [facility] Comment: Interpretive Data Percent cell count reference ranges are not reported, since discordance with absolute values may lead to misinterpretation of CBC data. Current Interpretive Data was last revised on 2017. Monocyte pct 11.6 % [facility] Comment: Interpretive Data Percent cell count reference ranges are not reported, since discordance with absolute values may lead to misinterpretation of CBC data. Current Interpretive Data was last revised on 2017. Eosinophil pct 1.4 % [facility] Comment: Interpretive Data Percent cell count reference ranges are not reported, since discordance with absolute values may lead to misinterpretation of CBC data. Current Interpretive Data was last revised on 2017. Basophil pct 0.1 % [facility] Comment: Interpretive Data Percent cell count reference ranges are not reported, since discordance with absolute values may lead to misinterpretation of CBC data. Current Interpretive Data was last revised on 2017. Blood 09/28/2024 1:27 AM CUSTOMER EXPERIENCE ANALYST 09/28/2024 1:45 AM CUSTOMER EXPERIENCE ANALYST us Torres Armenta MD LAB BLOOD ORDERABLES Vickie arreola Result [facility] Department [place] [address] * HIV 1/2 Antibody plus p24 Antigen Blood (09/28/2024 1:27 AM CUSTOMER EXPERIENCE ANALYST) [facility] HIV 1/2 ab + p24 ag Nonreactive Nonreactive Comment:Nonreactive for HIV- 1 antigen and HIV-1/HIV-2 antibodies. No laboratory evidence of HIV infection. If acute HIV infection is suspected, consider testing for HIV-1 RNA. Current interpretive data was last revised on 22. Blood 09/28/2024 1:27 AM CUSTOMER EXPERIENCE ANALYST 09/28/2024 1:45 AM CUSTOMER EXPERIENCE ANALYST us Destiny Ch MD LAB MICROBIOLOGY - GENERAL O RDERABLES Final Result [facility] Department [place] [address] * CBC with auto differential (09/28/2024 1:27 AM CUSTOMER EXPERIENCE ANALYST) [facility] WBC 8.7 3.8 - 9.9 K/cumm Hgb 13.9 13.0 - 17.5 g/dL [facility] Hct 42.6 38.9 - 50.3 % [facility] Plt 270 150 - 400 K/cumm [facility] MPV 10.0 9.1 - 12.3 fL [facility] RBC 4.87 4.30 - 5.80 M/cumm [facility] MCV 87.5 81.3 - 96.4 fL [facility] MCH 28.5 27.1 - 33.3 pg [facility] MCHC 32.6 32.3 - 35.7 g/dL [facility] RDW CV 13.2 11.1 - 14.9 % [facility] RDW SD 42.5 35.7 - 48.1 fL [facility] NRBC abs 0.00 0.00 - 0.01 K/cumm [facility] Blood Venous blood specimen / Unknown 09/28/2024 1:27 AM CUSTOMER EXPERIENCE ANALYST 09/28/2024 1:45 AM CUSTOMER EXPERIENCE ANALYST us Torres Armenta MD LAB BLOOD ORDERABLES Vickie l Result Performing Organization Address City/[facility] Co de Phone Number [facility] Department [place] [address] * RPR Blood (09/28/2024 1:27 AM CUSTOMER EXPERIENCE ANALYST) RPR Nonreactive Nonreactive Blood 09/28/2024 1:27 AM CUSTOMER EXPERIENCE ANALYST 09/28/2024 1:50 AM CUSTOMER EXPERIENCE ANALYST us Destiny Ch MD LAB MICROBIOLOGY - GENERAL O RDERABLES Final Result Performing Organization Address [facility] Co de Phone Number [facility] Department [place] [address] * Lipase (09/28/2024 1:27 AM CUSTOMER EXPERIENCE ANALYST) Lipase 27 10 - 99 Units/L Blood Venous blood specimen / Unknown 09/28/2024 1:27 AM CUSTOMER EXPERIENCE ANALYST 09/28/2024 1:45 AM CUSTOMER EXPERIENCE ANALYST us Torres Armenta MD LAB BLOOD ORDERABLES Vickie l Result Performing Organization Address [facility] de Phone Number [facility] Department [place] [address] * Lipid panel (09/28/2024 1:27 AM CUSTOMER EXPERIENCE ANALYST) Cholesterol 163 30 - 199 mg/dL Comment: [...] revised on 2018. Triglycerides 75 <=149 mg/dL [facility] Comment: Interpretive Data Ages < or = [...] revised on 2018. HDL 57 >=40 mg/dL [facility] Comment: Interpretive Data Ages < or = [...] on 2018. LDL, calculated 92 <=129 mg/dL [facility] Comment: Interpretive Data Ages < or = [...] NCEP Expert Panel. Circulation 2004;110:227 3. Aaron Patton et al. REVA Cardiol. 2020 November 30;5(5):540-54. doi: 10.1001/jamacardio.2020.0013 Current Interpretive Data was last revised on 2024. Non-HDL Cholesterol 106 mg/dL [facility] Comment: Interpretive Data Ages < or = [...] last revised on 2018. Chol/HDL ratio 3 [facility] Blood 09/28/2024 1:27 AM CUSTOMER EXPERIENCE ANALYST 09/28/2024 1:45 AM CUSTOMER EXPERIENCE ANALYST Destiny Ch MD LAB BLOOD ORDERABLES Final R esult [facility] Department [place] [address] * Comprehensive metabolic panel (09/28/2024 1:27 AM CUSTOMER EXPERIENCE ANALYST) Sodium 143 135 - 145 mmol/L Potassium, pl 4.6 3.3 - 4.9 mmol/L [facility] Chloride 106 97 - 110 mmol/L [facility] CO2 29 22 - 32 mmol/L [facility] Anion gap 8 2 - 15 mmol/L [facility] BUN 10 6 - 25 mg/dL [facility] Creatinine 1.22 0.80 - 1.30 mg/dL [facility] Glucose 100 70 - 199 mg/dL [facility] Comment: Interpretive Data Fasting glucose >/= 126 [...] 2022. Calcium 9.7 8.5 - 10.3 mg/dL [facility] Bilirubin, total 0.2 0.1 - 1.2 mg/dL [facility] Protein, pl 7.7 6.5 - 8.5 g/dL [facility] Albumin 3.9 3.5 - 5.0 g/dL [facility] Alk phos 74 40 - 130 Units/L [facility] ALT 22 7 - 55 Units/L [facility] AST 24 10 - 50 Units/L [facility] Blood 09/28/2024 1:27 AM CUSTOMER EXPERIENCE ANALYST 09/28/2024 1:45 AM CUSTOMER EXPERIENCE ANALYST Torres Armenta MD LAB BLOOD ORDERABLES Vickie arreola Result Performing Organization Address City/State/[facility] Co de Phone Number [facility] Department [place] [address] * Respiratory pathogen panel Nasopharyngeal (09/27/2024 10:38 PM CUSTOMER EXPERIENCE ANALYST) Pathologist [facility] [place] Influenza A RNA Not Detected Not Detected Influenza B RNA Not Detected Not Detected [facility] RSV RNA Not Detected Not Detected [facility] COVID-19 RNA Not Detected Not Detected [facility] Coronavirus 229E RNA Not Detected Not Detected [facility] Coronavirus HKU1 RNA Not Detected Not Detected [facility] Coronavirus NL63 RNA Not Detected Not Detected [facility] Coronavirus OC43 RNA Not Detected Not Detected [facility] Adenovirus DNA Not Detected Not Detected [facility] Metapneumovirus RNA Not Detected Not Detected [facility] Rhinovirus/Enterov irus RNA Not Detected Not Detected [facility] Parainfluenza 1 RNA Not Detected Not Detected [facility] Parainfluenza 2 RNA Not Detected Not Detected [facility] Parainfluenza 3 RNA Not Detected Not Detected [facility] Parainfluenza 4 RNA Not Detected Not Detected [facility] B. pertussis DNA Not Detected Not Detected [facility] B. parapertussis DNA Not Detected Not Detected [facility] C. pneumoniae DNA Not Detected Not Detected [facility] M. pneumoniae DNA Not Detected Not Detected [facility] Nasopharyngeal 09/27/2024 10 :38 PM CUSTOMER EXPERIENCE ANALYST 09/28/2024 1:00 AM CUSTOMER EXPERIENCE ANALYST Narrative [facility] - 09/28/2024 2:21 AM CUSTOMER EXPERIENCE ANALYST Is the Patient experiencing symptoms consistent with COVID?->Yes Surveillance testing for transplant patient?->No Interpretive Data The [employer] Film[employer] Respiratory Panel (RP2.1) assay is a [...] assay has FDA clearance for testing of HEAD OF PHYSICS swabs. The performance of additional specimen types has been assessed by the performing laboratory. The performance characteristics of this assay have been determined by [facility] Molecular Infectious Disease Laboratory. Current interpretive data was last revised on 22. us Torres Armenta MD LAB MICROBIOLOGY - GENERA L ORDERABLES Final Result Performing Organization Address [facility] Co de Phone Number [facility] Department [place] [address] * Troponin I high-sensitivity 2-hour (09/19/2024 5:19 PM CUSTOMER EXPERIENCE ANALYST) Trop I hs 8 <=35 ng/L Comment: Interpretive Data For further hscTnI resources including the diagnostic algorithm and an aid in interpretation, copy and paste this link: https://bjhlab.testcatalog.org/show/hsTrop-[email or web address] Current Interpretive Data last revised 2020. Trop I hs delta 1 ng/L [facility] Trop I hs interp Insignificant [facility] Blood 09/19/2024 5:19 PM CUSTOMER EXPERIENCE ANALYST 09/19/2024 5:36 PM CUSTOMER EXPERIENCE ANALYST us Ole Kay MD LAB BLOOD ORDERABLES Final Result Performing Organization Address [facility] Co de Phone Number [facility] Department [place] [address] * XR Chest Pa Lateral 2 Views (09/19/2024 3:06 PM CUSTOMER EXPERIENCE ANALYST) Anatomical Region Laterality Modality Body, Chest N/A Computed Radiogr aphy 09/19/2024 3:41 PM CUSTOMER EXPERIENCE ANALYST Impressions 09/19/2024 4:08 PM CUSTOMER EXPERIENCE ANALYST Comparison with chest radiograph dated 09/06/2024. No pulmonary consolidation, pleural effusion, or pneumothorax. Cardiomediastinal silhouette is normal. Dictated by: Kolby Garvey M.D. The radiology attending physician has personally reviewed this study, and had reviewed and/or edited this written report and agrees with it. Electronically signed by: Rory Castellano M.D. Narrative 09/19/2024 4:08 PM CUSTOMER EXPERIENCE ANALYST EXAMINATION: 2 view chest radiograph Procedure Note [...] it. Electronically signed by: Rory Castellano M.D. Kenny Curran MD IMG XR PROCEDURES Final Result * (ABNORMAL) ECG 12-LEAD (09/19/2024 3:00 PM CUSTOMER EXPERIENCE ANALYST) Narrative [facility] - 09/19/2024 3:00 PM CUSTOMER EXPERIENCE ANALYST Irina Yeager MD 09/19/2024 3:01 PM ECG [...] in V2, v3,v4,v5,v6, avf, II, III With KS depression in avF, I,II, v4, v5. Similar [...] in V2, v3,v4,v5,v6, avf, II, III With KS depression in avF, I,II, v4, v5. Similar to prior EKG on 12/05/23. Acute pericarditis concern Irina Yeager MD 09/19/24 1501 us Kenny Curran MD ECG ORDERABLES Final R esult [facility] * Troponin I high-sensitivity series (baseline, 2hr, 4hr, 6hr) (09/19/2024 2:56 PM CUSTOMER EXPERIENCE ANALYST) Pathologist [facility] [place] Trop I hs 7 <=35 ng/L Comment: Interpretive Data For further hscTnI resources including the diagnostic algorithm and an aid in interpretation, copy and paste this link: https://bjhlab.testcatalog.org/show/[email or web address] Current Interpretive Data last revised 2020. Blood 09/19/2024 2:56 PM CUSTOMER EXPERIENCE ANALYST 09/19/2024 3:25 PM CUSTOMER EXPERIENCE ANALYST us Kenny Curran MD LAB BLOOD ORDERABLES Fi nal Result [facility] Department [place] [address] * eGFR (09/19/2024 2:56 PM CUSTOMER EXPERIENCE ANALYST) Pathologist [facility] [place] eGFR >90 >=60 mL/min/1. 73 m2 Comment: [...] last reviewed 2021. Blood 09/19/2024 2:56 PM CUSTOMER EXPERIENCE ANALYST 09/19/2024 3:25 PM CUSTOMER EXPERIENCE ANALYST us Kenny Curran MD LAB BLOOD ORDERABLES [facility] Result [facility] Department [place] [address] * Differential, auto (09/19/2024 2:56 PM CUSTOMER EXPERIENCE ANALYST) Neutrophil abs 2.5 1.5 - 6.5 K/cumm Imm gran abs 0.0 0.0 - 0.1 K/cumm [facility] Lymphocyte abs 1.7 0.8 - 3.3 K/cumm [facility] Monocyte abs 0.5 0.2 - 0.8 K/cumm [facility] Eosinophil abs 0.1 0.0 - 0.5 K/cumm [facility] Basophil abs 0.0 0.0 - 0.1 K/cumm [facility] Neutrophil pct 50.3 % [facility] Comment: Interpretive Data Percent cell count reference ranges are not reported, since discordance with absolute values may lead to misinterpretation of CBC data. Current Interpretive Data was last revised on 2017. Imm gran pct 0.2 % [facility] Comment: Interpretive Data Percent cell count reference ranges are not reported, since discordance with absolute values may lead to misinterpretation of CBC data. Current Interpretive Data was last revised on 2017. Lymphocyte pct 35.7 % [facility] Comment: Interpretive Data Percent cell count reference ranges are not reported, since discordance with absolute values may lead to misinterpretation of CBC data. Current Interpretive Data was last revised on 2017. Monocyte pct 10.7 % [facility] Comment: Interpretive Data Percent cell count reference ranges are not reported, since discordance with absolute values may lead to misinterpretation of CBC data. Current Interpretive Data was last revised on 2017. Eosinophil pct 2.5 % [facility] Comment: Interpretive Data Percent cell count reference ranges are not reported, since discordance with absolute values may lead to misinterpretation of CBC data. Current Interpretive Data was last revised on 2017. Basophil pct 0.6 % [facility] Comment: Interpretive Data Percent cell count reference ranges are not reported, since discordance with absolute values may lead to misinterpretation of CBC data. Current Interpretive Data was last revised on 2017. Blood 09/19/2024 2:56 PM CUSTOMER EXPERIENCE ANALYST 09/19/2024 3:25 PM CUSTOMER EXPERIENCE ANALYST us Kenny Curran MD LAB BLOOD ORDERABLES nal Result [facility] Department [place] [address] * (ABNORMAL) CBC with auto differential (09/19/2024 2:56 PM CUSTOMER EXPERIENCE ANALYST) WBC 4.9 3.8 - 9.9 K/cumm Hgb 12.8(L) 13.0 - 17.5 g/dL [facility] Hct 40.5 38.9 - 50.3 % [facility] Plt 271 150 - 400 K/cumm [facility] MPV 9.7 9.1 - 12.3 fL [facility] RBC 4.63 4.30 - 5.80 M/cumm [facility] MCV 87.5 81.3 - 96.4 fL [facility] MCH 27.6 27.1 - 33.3 pg [facility] MCHC 31.6(L) 32.3 - 35.7 g/dL [facility] RDW CV 13.2 11.1 - 14.9 % [facility] RDW SD 41.6 35.7 - 48.1 fL [facility] NRBC abs 0.02(H) 0.00 - 0.01 K/cumm [facility] Blood Venous blood specimen / Unknown 09/19/2024 2:56 PM CUSTOMER EXPERIENCE ANALYST 09/19/2024 3:25 PM CUSTOMER EXPERIENCE ANALYST us Kenny Curran MD LAB BLOOD ORDERABLES Fi nal Result [facility] Department [place] [address] * Comprehensive metabolic panel (09/19/2024 2:56 PM CUSTOMER EXPERIENCE ANALYST) Sodium 141 135 - 145 mmol/L Potassium, pl 3.9 3.3 - 4.9 mmol/L [facility] Chloride 106 97 - 110 mmol/L [facility] CO2 26 22 - 32 mmol/L [facility] Anion gap 9 2 - 15 mmol/L [facility] BUN 6 6 - 25 mg/dL [facility] Creatinine 1.00 0.80 - 1.30 mg/dL [facility] Glucose 93 70 - 199 mg/dL [facility] Comment: Interpretive Data Fasting glucose >/= 126 [...] 2022. Calcium 9.1 8.5 - 10.3 mg/dL [facility] Bilirubin, total 0.2 0.1 - 1.2 mg/dL [facility] Protein, pl 7.1 6.5 - 8.5 g/dL [facility] Albumin 4.2 3.5 - 5.0 g/dL [facility] Alk phos 69 40 - 130 Units/L [facility] ALT 32 7 - 55 Units/L [facility] AST 22 10 - 50 Units/L [facility] Blood 09/19/2024 2:56 PM CUSTOMER EXPERIENCE ANALYST 09/19/2024 3:25 PM CUSTOMER EXPERIENCE ANALYST us Kenny Curran MD LAB BLOOD ORDERABLES Fi nal Result Performing Organization Address City/[facility]/ZIP Co de Phone Number [facility] [place] [place] [address] * eGFR (09/14/2024 4:26 AM CUSTOMER EXPERIENCE ANALYST) eGFR >90 >=60 mL/min/1. 73 m2 Comment: [...] last reviewed 2021. Blood 09/14/2024 4:26 AM CUSTOMER EXPERIENCE ANALYST 09/14/2024 4:45 AM CUSTOMER EXPERIENCE ANALYST us Qi Cherry MD LAB BLOOD ORDERABLES Final R esult Performing Organization Address City/[facility]/ZIP Co de Phone Number [facility] Department [place] [address] * (ABNORMAL) CBC without differential (09/14/2024 4:26 AM CUSTOMER EXPERIENCE ANALYST) [facility] WBC 6.1 3.8 - 9.9 K/cumm Hgb 12.0(L) 13.0 - 17.5 g/dL [facility] Hct 37.2(L) 38.9 - 50.3 % [facility] Plt 218 150 - 400 K/cumm [facility] MPV 10.0 9.1 - 12.3 fL [facility] RBC 4.28(L) 4.30 - 5.80 M/cumm [facility] MCV 86.9 81.3 - 96.4 fL [facility] MCH 28.0 27.1 - 33.3 pg [facility] MCHC 32.3 32.3 - 35.7 g/dL [facility] RDW CV 13.2 11.1 - 14.9 % [facility] RDW SD 41.2 35.7 - 48.1 fL [facility] NRBC abs 0.00 0.00 - 0.01 K/cumm [facility] Blood 09/14/2024 4:26 AM CUSTOMER EXPERIENCE ANALYST 09/14/2024 4:45 AM CUSTOMER EXPERIENCE ANALYST Qi Cherry MD LAB BLOOD ORDERABLES Final R esult Performing Organization Address City/[facility] Co de Phone Number [facility] Department [place] [address] * Lipase (09/14/2024 4:26 AM CUSTOMER EXPERIENCE ANALYST) [facility] Lipase 39 10 - 99 Units/L Blood 09/14/2024 4:26 AM CUSTOMER EXPERIENCE ANALYST 09/14/2024 4:45 AM CUSTOMER EXPERIENCE ANALYST Qi Cherry MD LAB BLOOD ORDERABLES Final R esult [facility] [place] [address] * (ABNORMAL) Comprehensive metabolic panel (09/14/2024 4:26 AM CUSTOMER EXPERIENCE ANALYST) Sodium 142 135 - 145 mmol/L Potassium, pl 4.4 3.3 - 4.9 mmol/L [facility] Chloride 108 97 - 110 mmol/L [facility] CO2 27 22 - 32 mmol/L [facility] Anion gap 7 2 - 15 mmol/L [facility] BUN 12 6 - 25 mg/dL [facility] Creatinine 1.08 0.80 - 1.30 mg/dL [facility] Glucose 110 70 - 199 mg/dL [facility] Comment: Interpretive Data Fasting glucose >/= 126 [...] 2022. Calcium 8.4(L) 8.5 - 10.3 mg/dL [facility] Bilirubin, total <0.2 0.1 - 1.2 mg/dL [facility] Protein, pl 6.1(L) 6.5 - 8.5 g/dL [facility] Albumin 3.4(L) 3.5 - 5.0 g/dL [facility] Alk phos 65 40 - 130 Units/L [facility] ALT 27 7 - 55 Units/L [facility] AST 25 10 - 50 Units/L [facility] Blood 09/14/2024 4:26 AM CUSTOMER EXPERIENCE ANALYST 09/14/2024 4:45 AM CUSTOMER EXPERIENCE ANALYST us Qi Cherry MD LAB BLOOD ORDERABLES Final R esult [facility] [place] [address] * (ABNORMAL) Urinalysis reflex to microscopic and culture Urine (09/14/2024 1:16 AM CUSTOMER EXPERIENCE ANALYST) Color, ur Yellow Yellow Clarity, ur Clear Clear [facility] Specific gravity, ur 1.031(H) 1.003 - 1.030 [facility] pH, urine 6.5 [facility] Comment: Interpretive Data U rine pH is affected by diet, medications, systemic acid-base disturbances, and renal tubular function. pH may affect urinary stone formation. For example, urine pH below 6.0 may help reduce the tendency for calcium phosphate stones and pH greater than 6.0 may reduce the tendency for uric acid stone formation. Source: [facility] [employer] Current Interpretive Data was last revised on 2017 Protein, ur ql 1+(A) Negative [facility] Glucose, ur ql Negative Negative [facility] Ketones, ur Negative Negative [facility] Bilirubin, ur Negative Negative [facility] Blood, ur 1+(A) Negative [facility] Urobilinogen, ur <2.0 <2.0 mg/dL [facility] Nitrite, ur Negative Negative [facility] Leukocyte esterase, ur Negative Negative [facility] UA reflex comment Reflex to microscopic UA will be performed. [facility] Urine 09/14/2024 1:16 AM CUSTOMER EXPERIENCE ANALYST 09/14/2024 1:25 AM CUSTOMER EXPERIENCE ANALYST us Qi Cherry MD LAB MICROBIOLOGY - GENERAL O RDERABLES Final Result [facility] [place] [address] * (ABNORMAL) Urinalysis, microscopic only (09/14/2024 1:16 AM CUSTOMER EXPERIENCE ANALYST) WBC, ur 0-5 0 - 5 /HPF RBC, ur 11-20(A) 0 - 2 /HPF [facility] Bacteria, ur Trace(A) [facility] Mucous, ur Present(A) [facility] Hyaline casts, ur 1-5 0 - 10 /LPF [facility] Culture Reflex Comment Reflex conditions for urine culture (WBC >10) not met. [facility] Urine 09/14/2024 1:16 AM CUSTOMER EXPERIENCE ANALYST 09/14/2024 1:25 AM CUSTOMER EXPERIENCE ANALYST us Qi Cherry MD LAB URINE ORDERABLES Final R esult [facility] [place] [address] * POCUS Cardiac (09/07/2024 3:41 AM CUSTOMER EXPERIENCE ANALYST) Anatomical Region Laterality Modality Other 09/07/2024 2:37 AM CUSTOMER EXPERIENCE ANALYST Narrative 09/07/2024 5:32 AM CUSTOMER EXPERIENCE ANALYST Performed by: Kolby Dominguez Cardiac: Exam type: [...] Electronically signed by Kolby Dominguez on September 07t 5:22 AM I have reviewed the images & the resident's interpretation. I agree withthe findings. Electronically signed by Wilmer Muro on September at5:32 AM I have reviewed the images & the resident's interpretation. I agree withthe findings. us Wilmer Muro MD POCUS ORDERABLES Final Result * Troponin I high-sensitivity 4-hour (09/07/2024 2:19 AM CUSTOMER EXPERIENCE ANALYST) Trop I hs 12 <=35 ng/L Comment: Interpretive Data For further hscTnI resources including the diagnostic algorithm and an aid in interpretation, copy and paste this link: [email or web address] Current Interpretive Data last revised 2020. Trop I hs delta See Comment ng/L [facility] Comment:Inappropriate collec tion time to report a delta. Trop I hs pct delta See Comment % [facility] Comment:Inappropriate collec tion time to report a delta. Trop I hs interp See Comment [facility] Comment:Inappropriate collec tion time to report a delta. Blood 09/07/2024 2:19 AM CUSTOMER EXPERIENCE ANALYST 09/07/2024 2:40 AM CUSTOMER EXPERIENCE ANALYST [place] Yang MD LAB BLOOD ORDERABLES Final R esult Performing Organization Address [facility] Co de Phone Number [facility] [place] [address] * Troponin I high-sensitivity 2-hour (09/06/2024 10:53 PM CUSTOMER EXPERIENCE ANALYST) Trop I hs 12 <=35 ng/L Comment: Interpretive Data For further hscTnI resources including the diagnostic algorithm and an aid in interpretation, copy and paste this link: [email or web address]/[email or web address] Current Interpretive Data last revised 2020. Trop I hs delta 0 ng/L [facility] Trop I hs interp Insignificant [facility] Blood 09/06/2024 10:5 3 PM CUSTOMER EXPERIENCE ANALYST 09/06/2024 11:08 PM CUSTOMER EXPERIENCE ANALYST Florida Yang MD LAB BLOOD ORDERABLES Final R esult [facility] Department [place] [address] * ECG 12-LEAD (09/06/2024 9:44 PM CUSTOMER EXPERIENCE ANALYST) Narrative [facility] - 09/06/2024 9:44 PM CUSTOMER EXPERIENCE ANALYST Heriberto Herrera MD 09/06/2024 9:45 PM ECG [...] Wilmer Muro MD ECG ORDERABLES Final Result [facility] * Troponin I high-sensitivity series (baseline, 2hr, 4hr, 6hr) (09/06/2024 9:13 PM CUSTOMER EXPERIENCE ANALYST) Trop I hs 12 <=35 ng/L Comment: Interpretive Data For further hscTnI resources including the diagnostic algorithm and an aid in interpretation, copy and paste this link: [email or web address]/[email or web address] Current Interpretive Data last revised 2020. Blood 09/06/2024 9:13 PM CUSTOMER EXPERIENCE ANALYST 09/06/2024 9:55 PM CUSTOMER EXPERIENCE ANALYST us Wilmer Muro MD LAB BLOOD ORDERABLES Final Re sult [facility] [place] [address] * eGFR (09/06/2024 9:13 PM CUSTOMER EXPERIENCE ANALYST) Pathologist [facility] [place] eGFR >90 >=60 mL/min/1. 73 m2 Comment: [...] data was last reviewed 2021. Blood 09/06/2024 9:13 PM CUSTOMER EXPERIENCE ANALYST 09/06/2024 9:55 PM CUSTOMER EXPERIENCE ANALYST us Wilmer Muro MD LAB BLOOD ORDERABLES Final Re sult [facility] Department [place] [address] * Differential, auto (09/06/2024 9:13 PM CUSTOMER EXPERIENCE ANALYST) Pathologist [facility] [place] Neutrophil abs 3.6 1.5 - 6.5 K/cumm Imm gran abs 0.0 0.0 - 0.1 K/cumm [facility] Lymphocyte abs 2.0 0.8 - 3.3 K/cumm [facility] Monocyte abs 0.6 0.2 - 0.8 K/cumm [facility] Eosinophil abs 0.1 0.0 - 0.5 K/cumm [facility] Basophil abs 0.0 0.0 - 0.1 K/cumm [facility] Neutrophil pct 57.4 % [facility] Comment: Interpretive Data Percent cell count reference ranges are not reported, since discordance with absolute values may lead to misinterpretation of CBC data. Current Interpretive Data was last revised on 2017. Imm gran pct 0.3 % [facility] Comment: Interpretive Data Percent cell count reference ranges are not reported, since discordance with absolute values may lead to misinterpretation of CBC data. Current Interpretive Data was last revised on 2017. Lymphocyte pct 30.9 % [facility] Comment: Interpretive Data Percent cell count reference ranges are not reported, since discordance with absolute values may lead to misinterpretation of CBC data. Current Interpretive Data was last revised on 2017. Monocyte pct 9.1 % [facility] Comment: Interpretive Data Percent cell count reference ranges are not reported, since discordance with absolute values may lead to misinterpretation of CBC data. Current Interpretive Data was last revised on 2017. Eosinophil pct 2.0 % [facility] Comment: Interpretive Data Percent cell count reference ranges are not reported, since discordance with absolute values may lead to misinterpretation of CBC data. Current Interpretive Data was last revised on 2017. Basophil pct 0.3 % [facility] Comment: Interpretive Data Percent cell count reference ranges are not reported, since discordance with absolute values may lead to misinterpretation of CBC data. Current Interpretive Data was last revised on 2017. Blood 09/06/2024 9:13 PM CUSTOMER EXPERIENCE ANALYST 09/06/2024 9:56 PM CUSTOMER EXPERIENCE ANALYST us Wilmer Muro MD LAB BLOOD ORDERABLES Final Re sult [facility] [place] [address] * (ABNORMAL) CBC with auto differential (09/06/2024 9:13 PM CUSTOMER EXPERIENCE ANALYST) WBC 6.4 3.8 - 9.9 K/cumm Hgb 13.9 13.0 - 17.5 g/dL [facility] Hct 43.6 38.9 - 50.3 % [facility] Plt 267 150 - 400 K/cumm [facility] MPV 10.1 9.1 - 12.3 fL [facility] RBC 4.94 4.30 - 5.80 M/cumm [facility] MCV 88.3 81.3 - 96.4 fL [facility] MCH 28.1 27.1 - 33.3 pg [facility] MCHC 31.9(L) 32.3 - 35.7 g/dL [facility] RDW CV 13.2 11.1 - 14.9 % [facility] RDW SD 42.4 35.7 - 48.1 fL [facility] NRBC abs 0.00 0.00 - 0.01 K/cumm [facility] Blood Venous blood specimen / Unknown 09/06/2024 9:13 PM CUSTOMER EXPERIENCE ANALYST 09/06/2024 9:56 PM CUSTOMER EXPERIENCE ANALYST Wilmer Muro MD LAB BLOOD ORDERABLES Final Re sult [facility] [place] [address] * (ABNORMAL) Comprehensive metabolic panel (09/06/2024 9:13 PM CUSTOMER EXPERIENCE ANALYST) Sodium 147(H) 135 - 145 mmol/L Potassium, pl 4.1 3.3 - 4.9 mmol/L [facility] Chloride 111(H) 97 - 110 mmol/L [facility] CO2 28 22 - 32 mmol/L [facility] Anion gap 8 2 - 15 mmol/L [facility] BUN 9 6 - 25 mg/dL [facility] Creatinine 1.05 0.80 - 1.30 mg/dL [facility] Glucose 91 70 - 199 mg/dL [facility] Comment: Interpretive Data Fasting glucose >/= 126 [...] phos 75 40 - 130 Units/L [facility] ALT 20 7 - 55 Units/L [facility] AST 26 10 - 50 Units/L [facility] Blood 09/06/2024 9:13 PM CUSTOMER EXPERIENCE ANALYST 09/06/2024 9:55 PM CUSTOMER EXPERIENCE ANALYST us Wilmer Muro MD LAB BLOOD ORDERABLES Final Re sult [facility] [place] [address] * XR Finger Right 2 or More Views (09/06/2024 8:43 PM CUSTOMER EXPERIENCE ANALYST) Anatomical Region Laterality Modality Upper Extremities, Hand, Fingers Right Computed Radiography 09/06/2024 8:45 PM CUSTOMER EXPERIENCE ANALYST Impressions 09/06/2024 8:57 PM CUSTOMER EXPERIENCE ANALYST No acute fracture or dislocation. Joint spaces are preserved. Dictated by: Jay Rios MD The radiology attending physician has personally reviewed this study, and had reviewed and/or edited this written report and agrees with it. Electronically signed by: Mckenna Spencer M.D. Narrative 09/06/2024 8:57 PM CUSTOMER EXPERIENCE ANALYST EXAMINATION: XR FINGER RIGHT 2 OR MORE [...] Electronically signed by: Mckenna Spencer M.D. Wilmer [place] XR PROCEDURES Final Resul t * XR Chest Pa Lateral 2 Views (09/06/2024 8:43 PM CUSTOMER EXPERIENCE ANALYST) Anatomical Region Laterality Modality Body, Chest N/A Computed Radiogr aphy 09/06/2024 8:44 PM CUSTOMER EXPERIENCE ANALYST Impressions 09/06/2024 8:56 PM CUSTOMER EXPERIENCE ANALYST FINDINGS/IMPRESSION: 2 views of the chest are [...] Mckenna Spencer M.D. Narrative 09/06/2024 8:56 PM CUSTOMER EXPERIENCE ANALYST EXAMINATION: XR CHEST PA LATERAL 2 VIEWS [...] Electronically signed by: Mckenna Spencer M.D. Wilmer Jina MD IMG XR PROCEDURES Final Resul t from Last 3 Months Insurance Advance Directives For more information, please contact: [phone] * Full Code (Latest Code Status on [...] 7:18 AM 05/25/2023 5:25 PM Care Teams Car Repair Supervisor Relationship Specialty Start Date End Date No, Physician PCP - General 11/30/20
--- OUTSIDE RECORDS SUMMARY | 2024-10-09 21:42 | XMS_ITS | Clinical Summary ---
Author Organization [facility] Address [address] [place] [address] Phone Care Team Providers Care Oleomargarine Maker Name Role Phone Unavailable Primary Care Provider Unavailabl e Allergies No known active allergies Social History Tobacco Use Types Packs/Day Years Used Date Smoking Tobacco: Never Assessed Sex and Gender Information Value Date Recorded Sex Assigned at Not on file Legal Sex Male 8:18 AM VICE PRESIDENT NETWORK DEVELOPMENT Gender Identity Not on file Sexual Orientation Not on file Last Filed Vital Signs Vital Sign Reading Time Taken Comments Blood Pressure 136/87 06/14/2021 8:27 AM VICE PRESIDENT NETWORK DEVELOPMENT Pulse - - Temperature 36.9 C (98.4 F) 06/14/2021 8:27 AM VICE PRESIDENT NETWORK DEVELOPMENT Respiratory Rate 18 06/14/2021 8:27 AM VICE PRESIDENT NETWORK DEVELOPMENT Oxygen Saturation 98% 06/14/2021 8:27 AM VICE PRESIDENT NETWORK DEVELOPMENT Inhaled Oxygen Concentration - - Weight 69.9 kg (154 lb) 06/14/2021 8:27 AM VICE PRESIDENT NETWORK DEVELOPMENT Height 15.2 cm (6 ) 06/14/2021 8:27 AM VICE PRESIDENT NETWORK DEVELOPMENT Body Mass Index 3007.61 06/14/2021 8:27 AM VICE PRESIDENT NETWORK DEVELOPMENT Plan of Treatment Health Maintenance Due Date Last Done Comments DTAP/TDAP/TD VACCINES (1 - Tdap) 2010 HEPATITIS B VACCINES (1 of 3 - 19+ 3-dose series) 2010 INFLUENZA VACCINE (#1) 2024 HPV VACCINES Aged Out No longer eligi ble based on patient's age to complete this topic [place] [address] [place] [address] MEDICAID
--- OUTSIDE RECORDS SUMMARY | 2024-10-09 21:42 | XMS_ITS | Clinical Summary ---
Author Organization [facility] Address [address] [place] [address] Phone Care Team Providers Care Counter Supervisor Name Role Phone Provider, None Primary Care Provider Unavailabl e Medications Mirtazapine (REMERON) 7.5 MG Tablet Take 7.5 mg by mouth nightly. Active traZODone (DESYREL) 50 MG Tablet Take 50 mg by mouth nightly. Active pantoprazole (PROTONIX) 20 MG Tablet Delayed Response Take 40 mg by mouth daily. Active indomethacin (INDOCIN) 25 MG Capsule Take 50 mg by mouth 3 times daily. Active albuterol (Ventolin HFA) 108 (90 Base) MCG/ACT Aerosol Solution take 2 Puffs by inhalation every 4 hours as needed for Wheezing. Active Social History Tobacco Use Types Packs/Day Years Used Date Smoking Tobacco: Every Day Cigarettes Smokeless Tobacco: Never Tobacco Cessation:Ready to Q uit: Not Asked Alcohol Use Standard Drinks/Week Comments Yes 0 (1 standard drink = 0.6 oz pur e alcohol) Sex and Gender Information Value Date Recorded Sex Assigned at Not on file Legal Sex Male 12:16 AM CDT Gender Identity Not on file Sexual Orientation Not on file Last Filed Vital Signs Vital Sign Reading Time Taken Comments Blood Pressure 134/78 09/19/2023 6:07 PM PARTS CLEANER Pulse 70 09/19/2023 9:14 PM PARTS CLEANER Temperature 36.6 C (97.8 F) 09/19/2023 6:07 PM PARTS CLEANER Respiratory Rate 17 09/19/2023 6:07 PM PARTS CLEANER Oxygen Saturation 94% 09/19/2023 9:14 PM PARTS CLEANER Inhaled Oxygen Concentration - - Weight 79.4 kg (175 lb) 09/19/2023 6:07 PM PARTS CLEANER Height 185.4 cm (6' 1 ) 09/19/2023 6:07 PM PARTS CLEANER Body Mass Index 23.09 09/19/2023 6:07 PM PARTS CLEANER Plan of Treatment Health Maintenance Due Date Last Done Comments Hepatitis C Virus (HCV) Screening 1991 TdaP Immunization 1991 Hepatitis B Immunization (3 of 3 - 3-dose series) 11/16/2000 09/21/2000, 04/04/1996 Pneumococcal Immunization Combined (1 of 2 - PCV) 2010 Influenza Immunization (#1) 2024 SARS-COV-2 Immunization ( - season) 2024 Respiratory Syncytial Virus (RSV) Immunization (Adult) (1 - 1-dose 75+ series) 2066 DTaP/Tdap/Td Immunization Discontinued 1995, 08/20/1992, 06/20/1992, Additional history exists Meningococcal Immunization (ACWY) Aged Out No longer eligible based on patient's age to complete this topic Rotavirus Immunization Aged Out No lo nger eligible based on patient's age to complete this topic Insurance MEDICAID [place] Care Teams Counter Supervisor Relationship Specialty Start Date End Date Provider, None [place] PCP - General 08/19/23
--- NOTE | 2024-10-09 21:53 | ECG_ITS ---
Test Date: 2024-10-09 21:56:27 Measurements Intervals [place] Rate: 62 P: 30 AR: 144 QRS: 81 QRSD: 113 T: 28 QT: 380 QTc: 388 Interpretive Statements SINUS RHYTHM DIFFUSE ST ELEVATION Compared to ECG 03/07/2024 09:58:45 Sinus bradycardia no longer present Electronically Signed On 10-10-2024 14:45:20 CDT by Pam eJsus M.D.
[2024-10-09 21:54] VITALS: BP 131/80; PULSE 66; RESP 17; O2SAT 97
--- NOTE | 2024-10-09 21:54 | PC.NURSE ---
Patient stated that he has an on and off suicidal plan to cut both of his wrists.
[2024-10-09 22:14] LABS: Basophils Percent Auto 0.4 % (0.2-1.2); Eosinophils Absolute Auto 0.2 K/mm3 (0-0.3); Eosinophils Percent Auto 2.3 % (0-4.4); Hematocrit 40.9 % (42.0-52.0); Hemoglobin 13.1 g/dL (14.0-18.0); Immature Granulocyte Absolute 0.02 K/mm3 (0.00-0.031); Immature Granulocyte Percent A 0.3 % (0-0.5); Lymphocytes Absolute Auto 2.22 K/mm3 (0.9-3.2); Lymphocytes Percent Auto 31.7 % (18.3-44.2); Mean Corpuscular Hemoglobin 28.2 pg (26-34); Mean Corpuscular Volume 88.1 fl (80-100); Mean Platelet Volume 9.5 fl (7.4-10.4); Monocytes Absolute Auto 0.6 K/mm3 (0.1-0.6); Monocytes Percent Auto 9.1 % (2.6-8.5); Neutrophils Absolute Auto 3.9 K/mm3 (1.3-6.7); Neutrophils Percent Auto 56.2 % (45.5-73.1); Platelet Count Result 290 k/mm3 (150-375); Red Blood Count 4.64 M/mm3 (4.6-6.20); Red Cell Distribution Width 13.3 % (11.5-14.5)
[2024-10-09 22:31] LABS: Ethanol < 10 mg/dL (<10)
--- OUTSIDE RECORDS SUMMARY | 2024-10-09 22:32 | XMS_ITS | Clinical Summary ---
Author Organization [facility] [employer] Address [address] [place] [address] [place] [address] Care Team Providers [facility] [employer] Worker Name Role Phone None, Physician Primary Care Provider Unavailabl e Source Comments [facility] [employer],non-owned Affiliates and Associated Physician Practices is amultiple site organization consisting of ambulatory clinics and hospital sitesin [place], [place], [place] and [place]. This disclosure is being madepursuant to the Care Everywhere program and may not contain all information available regarding this patient. Last updated 18.[employer] Allergies No known active allergies Medications * [...] (06/02/2022): Added automatically from request for surgery [id number] ST elevation myocardial infa rction (STEMI), unspecified artery 06/02/2022 Chest pain due to myocardial ischemia, unspecified ischemic chest pain type 06/02/2022 Encounters Date Type Department Care Team Description 09/17/2024 1:40 AM [facility] - 09/17/2024 4:17 AM [facility] Emergency [facility] EMERGENCY DEPARTMENT [address] [place] [address] Kyree Rossi MD Acute idiopathic pericarditis (HCC) [...] housing, medical care, and heating? Hard 08/07/2023 [facility] [place] of Occupat ional Health - Occupational Stress [...] place to sleep or slept in a halfway (including now)? No 08/07/2023 Housing Stability Vital [...] Comments Blood Pressure 141/85 09/17/2024 4:00 AM [facility] Pulse 87 09/17/2024 4:00 AM [facility] Temperature 36.9 C (98.5 F) 09/17/2024 1:48 AM [facility] Respiratory Rate 13 09/17/2024 4:02 AM [facility] Oxygen Saturation 96% 09/17/2024 4:00 AM [facility] Inhaled Oxygen Concentration - - Weight 72.6 kg (160 lb) 09/17/2024 1:45 AM [facility] Height 180.3 cm (5' 11 ) 09/17/2024 1:45 AM [facility] Body Mass Index 22.32 09/17/2024 1:45 AM [facility] Plan of Treatment Health Maintenance Due Date [...] CARDIAC EKG ORDER 09/19/2024 1:4 4 PM [facility] BLOOD TYPE VERIFICATION STAT 09/17/2024 2:53 AM [facility] TROPONIN-I HIGH SENSITIVE REFLEX 1HOUR Timed 09/17/2024 2:53 AM [facility] XR CHEST 2VW STAT 09/17/2024 2:07 AM [facility] Chest pain, unspecified type SARS-COV-2 (COVID-19)+INFLU A+B PCR RAPID STAT 09/17/2024 2:02 AM [facility] TYPE + SCREEN PANEL STAT 09/17/2024 1 :52 AM [facility] B-TYPE NATRIURETIC PEPTIDE STAT 09/17/2024 1:52 AM [facility] TROPONIN-I HIGH SENSITIVE BASELINE + 1HR STAT 09/17/2024 1:52 AM [facility] PT-INR [facility] STAT 09/17/2024 1:52 AM [facility] MAGNESIUM BLOOD STAT 09/17/2024 1:52 AM [facility] COMPREHENSIVE METABOLIC PANEL STAT 09/17/2024 1:52 AM [facility] CBC W AUTO DIFFERENTIAL STAT 09/17/2024 1:52 AM [facility] EKG 12-LEAD STAT 09/17/2024 1:43 AM [facility] Chest pain, unspecified type from Last 3 Months Results * CARDIAC EKG ORDER (09/19/2024 1:44 PM [facility]) Narrative 09/19/2024 1:44 PM [facility] Ordered by an unspecified provider. Scanned Document CARDIAC SERVICES ORD ERABLES * TROPONIN-I HIGH SENSITIVE REFLEX 1HOUR (09/17/2024 2:53 AM [facility]ER) Troponin I High Sensitive 9 <=35 ng/L 09/17/2024 3:38 AM [facility] Delta Troponin I HS 0 <6 ng/L 09/17/2024 3:38 AM [facility] Blood BLOOD SPECIMEN / Unknown Venipuncture / Unknown 09/17/2024 2:53 AM [facility] 09/17/2024 2:59 AM [facility] Kyree Rossi MD LAB - CHEMISTRY ORDE TOM [facility] [address] [place] [address], [facility] [phone] * BLOOD TYPE VERIFICATION (09/17/2024 2:53 AM [facility]KER) ABO Rh A POS 09/17/2024 3:2 2 AM [facility] BLOOD BANK LAB Blood Bank BLOOD SPECIMEN / Unknown Venipuncture / Unknown 09/17/2024 2:53 AM [facility] 09/17/2024 3:00 AM [facility] Kyree Rossi MD LAB - BLOOD BANK ORD ERABLES [facility] BLOOD BANK LAB [address] [place] [address], [facility] [phone] * XR CHEST 2VW (09/17/2024 2:07 AM [facility]ER) Anatomical Region Laterality Modality Chest Digital Radiogra phy 09/17/2024 2:08 AM [facility] Narrative 09/17/2024 7:55 AM [facility] PROCEDURE: XR CHEST 2VW, DATE/TIME OF EXAM: 09/17/2024 2:08 AM, LOCATION [facility] INDICATION: R07.9: Chest pain, unspecified type ADDITIONAL CLINICAL INFORMATION: Ordering Provider Reason For Exam: pna vs other Technologist Note: Additional: COMPARISON: None. FINDINGS/IMPRESSION: No focal consolidation, pleural effusion, or pneumothorax. The cardiomediastinal silhouette is normal. No acute osseous abnormality. > Dictated by Acacia Leal MD (residential sales representative) Mandi Osman MD have personally reviewed and interpreted this examination/study. > Interpreting Provider: Mandi Mccain MD on 09/17/2024 7:55 AM Procedure Note Mandi Mccain MD - 09/17/2024 PROCEDURE: XR CHEST 2VW, DATE/TIME OF EXAM: 09/17/2024 2:08 AM, LOCATION [facility] INDICATION: R07.9: Chest pain, unspecified type ADDITIONAL CLINICAL INFORMATION: Ordering Provider Reason For Exam: pna vs other Technologist Note: Additional: COMPARISON: None. FINDINGS/IMPRESSION: No focal consolidation, pleural effusion, or pneumothorax. The cardiomediastinal silhouette is normal. No acute osseousabnormality. > Dictated by Acacia Leal MD (residential sales representative) Mandi Osman MD have personally reviewed and interpreted this examination/study. > Interpreting Provider: Mandi Mccain MD on 09/17/2024 7:55 AM Kyree Rossi MD DIAGNOSTIC IMAGING O RDERABLES * SARS-COV-2 (COVID-19)+INFLU A+B PCR RAPID (09/17/2024 2:02 AM [facility]) COVID-19 PCR Not detected Not detected 09/17/19 2:45 AM [facility] Influenza A Rapid ROSALIND Not Detected Not Detected 09/17/2024 2:45 AM [facility] Influenza B ROSALIND Rapid Not Detected Not Detected 09/17/2024 2:45 AM [facility] Microbiology SPECIMEN FROM NASOPHARYNGEAL STRUCTURE / Unknown Collection / Unknown 09/17/2024 2:02 AM [facility] 09/17/2024 2:05 AM [facility] - 09/17/2024 2:45 AM [facility]ER Influenza assay performed by Nucleic Acid Amplification. [...] acid amplification assay performance was validated by [facility]. This test has been [...] - MICROBIOLOGY O RDERABLES Performing Organization Address [facility]/ZIP Co de Phone Number [facility] [address] [place] [address], [place] [phone] * PT-INR [facility] (09/17/2024 1:52 AM [facility]KER) PT 13.3 12.1 - 14.8 Seconds 09/17/2024 2:18 AM [facility] INR 1.0 See Comment 09/17/2024 2:18 AM [facility] Comment:The suggested therap eutic range for standard coumadin (warfarin) therapy is an INR of 2.0-3.0. For high-risk patients (Mechanical Mitral Valve Prosthesis, etc.), the suggested prophylactic therapeutic range is an INR of 2.5-3.5. Blood BLOOD SPECIMEN / Unknown Venipuncture / Unknown 09/17/2024 1:52 AM [facility] 09/17/2024 1:57 AM [facility] Kyree Rossi MD LAB - COAGULATION OR DERABLES Performing Organization Address [facility] Co de Phone Number [address] [address], [place] [phone] * TROPONIN-I HIGH SENSITIVE BASELINE + 1HR (09/17/2024 1:52 AM [facility]KER) Pathologist [facility] Troponin I High Sensitive 9 <=35 ng/L 09/17/2024 2:28 AM [facility]ER [facility] Blood BLOOD SPECIMEN / Unknown Venipuncture / Unknown 09/17/2024 1:52 AM [facility] 09/17/2024 1:57 AM [facility] Kyree Rossi MD LAB - CHEMISTRY ORDE RABGHISLAINE Performing Organization Address City/[facility]/ZIP Co de Phone Number [address] [address], [place] [phone] * TYPE + SCREEN PANEL (09/17/2024 1:52 AM [facility]KER) Pathologist [facility] Antibody Screen NEG 2:35 AM [facility] BLOOD BANK LAB ABO Rh A POS 09/17/2024 2:35 AM [facility] BLOOD BANK LAB Blood Bank BLOOD SPECIMEN / Unknown Venipuncture / Unknown 09/17/2024 1:52 AM [facility] 09/17/2024 1:59 AM [facility] Kyree Rossi MD LAB - BLOOD BANK ORD ERABLES [facility] BLOOD BANK LAB [address] [place] [address], [facility] [phone] * (ABNORMAL) CBC W AUTO DIFFERENTIAL (09/17/2024 1:52 AM [facility]) [facility] WBC 5.1 4.0 - 10.7 x10E9/L 09/17/2024 2:01 AM [facility] RBC Count 4.62 4.30 - 5.80 x10E12/L 09/17/2024 2:01 AM [facility] Hemoglobin 13.2(L) 13.3 - 17.5 g/dL 09/17/2024 2:01 AM [facility] Hematocrit 39.2 38.7 - 51.1 % 09/17/2024 2:01 AM [facility] MCV 84.8 80.0 - 98.0 fL 09/17/2024 2:01 AM [facility] MCH 28.6 26.7 - 33.6 pg 09/17/2024 2:01 AM [facility] MCHC 33.7 31.7 - 36.3 g/dL 09/17/2024 2:01 AM [facility] RDW-CV 13.2 11.3 - 14.8 % 09/17/2024 2:01 AM [facility] Platelet Count 240 150 - 420 x10E9/L 09/17/2024 2:01 AM [facility] MPV 9.6 7.8 - 11.4 fL 09/17/2024 2:01 AM [facility] Neutrophil % 69.4 41.0 - 74.0 % 09/17/2024 2:01 AM [facility] Lymphocyte % 18.1 17.0 - 47.0 % 09/17/2024 2:01 AM [facility] Monocyte % 10.5 3.0 - 11.0 % 09/17/2024 2:01 AM [facility] Eosinophil % 1.4 0.0 - 7.0 % 09/17/2024 2:01 AM [facility] Basophil % 0.4 0.0 - 1.6 % 09/17/2024 2:01 AM [facility] Immature Granulocytes % 0.2 0.0 - 1.0 % 09/17/2024 2:01 AM [facility] Neutrophil Absolute 3.56 1.60 - 7.50 x10E9/L 09/17/2024 2:01 AM [facility] Lymphocyte Absolute 0.93(L) 1.00 - 4.40 x10E9/L 09/17/2024 2:01 AM [facility] Monocyte Absolute 0.54 0.15 - 1.00 x10E9/L 09/17/2024 2:01 AM [facility] Eosinophil Absolute 0.07 0.00 - 0.60 x10E9/L 09/17/2024 2:01 AM [facility] Basophil Absolute 0.02 0.00 - 0.13 x10E9/L 09/17/2024 2:01 AM [facility] Blood BLOOD SPECIMEN / Unknown Venipuncture / Unknown 09/17/2024 1:52 AM [facility] 09/17/2024 1:56 AM [facility] Kyree Rossi MD LAB - HEMATOLOGY ORD ERABLES [facility] [address] [place] [phone] [phone] * B-TYPE NATRIURETIC PEPTIDE (09/17/2024 1:52 AM [facility]) Pathologist [facility] BNP <10 <100 pg/mL 09/17/2024 2:43 AM [facility] Comment: A decision threshold of 100 pg/mL [...] Unknown Venipuncture / Unknown 09/17/2024 1:52 AM [facility] 09/17/2024 2:09 AM [facility] Kyree Rossi MD LAB - CHEMISTRY CECIL SANTOS [facility] Organization Address City/State/ZIP Co de Phone Number [facility] [address] [place] [address], [facility] [phone] * (ABNORMAL) COMPREHENSIVE METABOLIC PANEL (09/17/2024 1:52 AM [facility]KER) BUN 8 7 - 26 mg/dL 09/17/2024 2:24 AM [facility] Creatinine 1.03 0.71 - 1.16 mg/dL 09/17/2024 2:24 AM [facility] Sodium 142 136 - 145 mmol/L 09/17/2024 2:24 AM [facility] Potassium 3.8 3.5 - 4.5 mmol/L 09/17/2024 2:24 AM [facility] Chloride 110(H) 98 - 107 mmol/L 09/17/2024 2:24 AM [facility] CO2 23 22 - 29 mmol/L 09/17/2024 2:24 AM [facility] Glucose 128(H) 70 - 99 mg/dL 09/17/2024 2:24 AM [facility] Calcium 8.8 8.4 - 10.2 mg/dL 09/17/2024 2:24 AM [facility] Protein Total 7.0 6.0 - 8.3 g/dL 09/17/2024 2:24 AM [facility] Albumin 3.8 3.4 - 5.0 g/dL 09/17/2024 2:24 AM [facility] Bilirubin Total 0.3 0.2 - 1.2 mg/dL 09/17/2024 2:24 AM [facility] Alkaline Phosphatase 65 40 - 150 U/L 09/17/2024 2:24 AM [facility] ALT 35 5 - 55 U/L 09/17/2024 2:24 AM [facility] AST 29 5 - 34 U/L 09/17/2024 2:24 AM [facility] Anion Gap 9 6 - 16 09/17/2024 2:24 AM [facility] BUN/Creatinine Ratio 8 7 - 23 09/17/2024 2:24 AM [facility] Osmolality Calculated 294 275 - 295 mOsm/kg 09/17/2024 2:24 AM [facility] Albumin/Globulin Ratio 1.2 1.1 - 2.3 09/17/2024 2:24 AM [facility] eGFR by CKD-EPI >90 >=90 mL/min/1.7 3 m2 09/17/2024 2:24 AM [facility] Blood BLOOD SPECIMEN / Unknown Venipuncture / Unknown 09/17/2024 1:52 AM [facility] 09/17/2024 1:57 AM [facility] Kyree Rossi MD LAB - CHEMISTRY CECIL SANTOS [address] [address], [facility] [phone] * MAGNESIUM BLOOD (09/17/2024 1:52 AM [facility]KER) Magnesium 1.8 1.6 - 2.6 mg/dL 09/17/2024 2:24 AM [facility] Blood BLOOD SPECIMEN / Unknown Venipuncture / Unknown 09/17/2024 1:52 AM [facility]ER 09/17/2024 1:57 AM [facility]ER Kyree Rossi MD LAB - CHEMISTRY CECIL SANTOS [facility] [address] [place] [address], [facility] [phone] * EKG 12-LEAD (09/17/2024 1:43 AM [facility]ANK MAKER) Ventricular Rate 80 BPM [facility] Atrial Rate 80 BPM [facility] P-R Interval 164 ms [facility] QRS Duration ms 116 ms [facility] Q-T Interval ms 356 ms [facility] QTC Calculation (Bezet) 410 ms [facility]USE Calculated P Arnold 36 degrees [facility]USE Calculated R Arnold 80 degrees [facility] Calculated T Arnold 48 degrees [facility] Interpretation EKG NORMAL SINUS RHYTHM ST ELEVATION CONSIDER ANTEROLATERAL INJURY OR ACUTE INFARCT ST ELEVATION CONSIDER INFERIOR INJURY OR ACUTE INFARCT ACUTE OR / STEMI ABNORMAL ECG WHEN COMPARED WITH ECG OF 28-AUG-2023 22:14, T WAVE INVERSION NO LONGER EVIDENT IN INFERIOR LEADS NONSPECIFIC T WAVE ABNORMALITY HAS REPLACED INVERTED T WAVES IN LATERAL LEADS Confirmed by VALERIA PETERSON, TG ([id number]) on 09/23/2024 7:15:26 PM [facility] MUSE 09/17/2024 1:43 AM [facility]ANK [facility]KER 09/23/2024 7:15 PM [facility]ER Kyree Rossi MD ECG ORDERABLES Performing Organization Address City/State/[facility] Co de Phone Number [facility] [place] from Last 3 Months Advance Directives * Full Code (Latest Code Status on File) Date Activated Date Inactivated Comments 08/29/2023 6:12 AM 08/29/2023 1:31 PM * Full Code Date Activated Date Inactivated Comments 08/07/2023 11:38 AM 08/10/2023 3:33 PM * Full Code Date Activated Date Inactivated Comments 06/02/2022 4:30 AM 06/03/2022 4:00 PM Care Teams [facility] [employer] Worker Relationship Specialty Start Date End Date None, Physician PCP - General 09/17/24
--- OUTSIDE RECORDS SUMMARY | 2024-10-09 22:32 | XMS_ITS | Clinical Summary ---
Author Organization [facility] [place] [facility] Address [address] [place] [address] Care Team Providers Care Homemaking Rehabilitation Consultant Name Role Phone No, Physician Primary Care Provider [phone] Allergies No known active allergies Medications colchicine [...] 09/30/2024 Assessment & Plan (09/30/2024 9:09 AM GEOLOGICAL SPECIALIST): Will try to obtain iron studies I asked SW to help w/ PCP followup Epigastric pain 09/30/2024 Assessment & Plan (09/30/2024 9:17 AM GEOLOGICAL SPECIALIST): When asked where his pericarditis pain is, he points to the epigastrium. When I saw him in 11/2023, I had requested an H pylori stool antigen, which we were not able to obtain. -Try again to obtain H pylori antigen (especially w/ history of anemia) Depression 09/29/2024 Assessment & Plan (09/29/2024 1:17 PM GEOLOGICAL SPECIALIST): As per psychiatry Will isidoroon a TSH Pericarditis 09/29/2024 Assessment & Plan (09/30/2024 9:10 AM GEOLOGICAL SPECIALIST): Currently asymptomatic. Will obtain EKG. Will restart colchicine if symptoms recurs EKG w/ diffuse ST elevation in II, III, aVF, and V1-6, with no SD depression This might also be early repolarization See my notes from 11/16/23 and 11/17/23 for my thought process then He has a ekg monitor (Dr Rivera, in [place]) with whom he can follow up Routine general medical exam ination at a health care facility 09/29/2024 Assessment & Plan (09/29/2024 1:17 PM GEOLOGICAL SPECIALIST): HIV, RPR negative Will recheck here Addon B12, TSH GERD (gastroesophageal reflux disease) Assessment & Plan (09/29/2024 1:18 PM GEOLOGICAL SPECIALIST): Hold off PPI for now as he notes no symptoms of acid reflux. Low threshold to restart. The chest pain (when present) he notes is epigastric so that may be a component of GERD Renal lesion 09/29/2024 Assessment & Plan (09/30/2024 9:09 AM GEOLOGICAL SPECIALIST): 11/02/23 CT: There are 3 low-attenuation lesions [...] 08/14/23, 11/02/23 w/ diffuse ST elevation, w/ SD depression) and a negative ischemic workup (including [...] follows w/ Dr Cat Choudhary (cardiology w/ [facility]), which he will follow up with Plan: [...] 11/16/2023 Assessment & Plan (09/30/2024 9:11 AM GEOLOGICAL SPECIALIST): B12 300, same as 11/2023. Will replete [...] 11/16/2023 Assessment & Plan (09/30/2024 9:11 AM GEOLOGICAL SPECIALIST): Late latent, appropriately treated. See my 11/15/24 note Assessment & Plan (11/16/2023 1:25 PM CDT): As per my colleague Dr Bynum (see 09/07/23 medicine c/s note): - Has history of Syphilis, treated in 2013 , -Treponema ab + and RPR 1:4 on 08/29/23 when tested at [facility] ED Contacted [facility] ( [place] ) for info To see if titers are coming down , left message with Nurse ( [phone]): Called back received, Patient diagnosed with late latent syphilis at [facility] in [place] on 10-11 : +RPR titer 1 :256, treponema -EIA positive Completed treatment with benzathine penicillin G x 3 doses given on November 21 2013, November 28 2013 and December 052013 So appropriately treated Lumbar strain, initial encounter 09/16/2023 Anemia 09/08/2023 Assessment & Plan (09/08/2023 8:05 PM GEOLOGICAL SPECIALIST): -possible hx of GI bleed in June, [...] disease) Assessment & Plan (09/08/2023 5:10 AM GEOLOGICAL SPECIALIST): -continue pepcid Adjustment disorders, with mixed anxiety and dep ressed mood 09/07/2023 Assessment & Plan (09/08/2023 4:53 AM GEOLOGICAL SPECIALIST): Per Psychiatry Cannabis use disorder, moderate, dependence 01/2024 Assessment & Plan (09/08/2023 4:53 AM GEOLOGICAL SPECIALIST): Per Psychiatry History of syphilis 09/07/2023 Assessment & Plan (09/08/2023 12:28 PM GEOLOGICAL SPECIALIST): - Has history of Syphilis, treated in 2013 , -Treponema ab + and RPR 1:4 on 08/29/23 when tested at [facility] Contacted [facility] ( [place] ) for info To see if titers are coming down , left message with Nurse ( [phone]): Called back received, Patient diagnosed with late latent syphilis at [facility] in [place] on 10-11 : +RPR titer 1 :256, [...] recs Assessment & Plan (07/27/2023 10:01 AM GEOLOGICAL SPECIALIST): Wes has been struggling for the last 4 years with unstable realtionships, unstable housing, difficulty finding and maintaining employment, and in and out of fci/assisted/probation. He says that he is sad about [...] Med recs apprec; h/o pericarditis Swer to critical access hospital with follow-up and dispo Assessment & Plan (07/26/2023 9:44 AM GEOLOGICAL SPECIALIST): Wes has been struggling for the last 4 years with unstable realtionships, unstable housing, difficulty finding and maintaining employment, and in and out of fci/assisted/probation. He says that he is sad about [...] Med recs apprec; h/o pericarditis Swer to critical access hospital with follow-up and dispo Assessment & Plan (07/25/2023 12:24 PM GEOLOGICAL SPECIALIST): Wes has been struggling for the last 4 years with unstable realtionships, unstable housing, difficulty finding and maintaining employment, and in and out of fci/assisted/probation. He says that he is sad about [...] Med recs apprec; h/o pericarditis Swer to critical access hospital with follow-up and dispo Assessment & [...] was started on Abilify and Depakote in [place], and reports that his visual and auditory hallucinations have resolved. - Start Sertraline 50mg, consider titrating - Obtain further information about the hallucinations - Haldol 5 p.o. or Haldol 5/Ativan 2 IM PRN for agitation - Suicide/elopement/safety precautions - Therapeutic milieu - q15 min safety checks Asthma 05/22/2023 Assessment & Plan (09/29/2024 1:14 PM GEOLOGICAL SPECIALIST): Mild. Prn albuterol Assessment & Plan (09/08/2023 5:12 AM GEOLOGICAL SPECIALIST): - no PFTs available , currently not in exacerbation, - PRN albuteral Assessment & Plan (07/25/2023 10:37 AM GEOLOGICAL SPECIALIST): Intermittent. No symptoms. Uses albuterol prn at [...] 09/07/202310/31 Assessment & Plan (09/08/2023 8:04 PM GEOLOGICAL SPECIALIST): - patient has not been able to afford colchicine and reports benefit when getting doses in ED visits - continue colchicine 0.6 mg po BID and monitor for side effects, it should be held if nausea, vomiting, diarrhea -Hold NSAIDS as -he as not tolerated with significant Gi side effects -Patient was seen by Cardiology as outpatient on 09/02/2023 at [facility] ([facility]) and has an [...] psychiatry Assessment & Plan (07/25/2023 10:36 AM GEOLOGICAL SPECIALIST): Pt w/ hx of depression and anxiety presents w/ SI after grandmother passing. Didn't have intent or plan. Denies SI now -mgt per primary Encounters Date Type Department Care Team Description 09/28/2024 2:49 AM GEOLOGICAL SPECIALIST - 10/01/2024 11:55 AM GEOLOGICAL SPECIALIST Hospital Encounter [facility] [address] [place] [address] Torres Armenta MD L'Ecuyer, MD Ivy Dixon, [...] home or self care 09/19/2024 5:09 PM [facility] - 09/19/2024 5:50 PM [facility] Emergency [facility] Emergency Department [address] [place] [address] Kenny Curran MD Pericarditis (Primary Dx) Discharge Disposition: Discharge to home or self care 09/14/2024 12:06 AM [facility] - 09/14/2024 7:08 AM [facility] Emergency [facility] Emergency Department [address] [place] [phone] Alexis Santos MD Abdominal pain (Primary Dx) Discharge Disposition: Discharge to home or self care 09/13/2024 [facility]phone [facility] [address] [place] [address] [facility] 4th Floor [address] [place] [address] Lara Herrera 09/08/2024 Telephone [facility] [address] [place] [address] 4th Floor [address] [place] [address] Lara Herrera 09/07/2024 1:21 AM [facility] - 09/07/2024 6:46 AM [facility] Emergency [facility] Emergency Department [address] [place] [phone] Wilmer Muro MD Chest pain, unspecified type [...] drink = 0.6 oz pur e alcohol) [facility] Utilities Answer Date Recorded In the past 12 months has th e [employer], [email or web address], oil, or water [employer] threatened to shut off services in your [...] often do you attend chur ch or taoism services? Never 09/29/2024 Do you belong to any clubs o r organizations such as uatsdin groups, unions, fraternal or athletic groups, or [...] staff should administer the PHQ-9) 2 09/07/2023 [facility] - Occupational Stress Questionnaire Answer Date [...] place to sleep or slept in a alf (including now)? Yes 10/02/2023 Housing Stability Vital Sign Answer Pavel e Recorded In the last 12 months, was t here a time when you were not able to pay the mortgage or rent on time? No 09/29/2024 Number of Times Moved in the Last Year Not on fi le 09/29/2024 At any time in the past 12 m [facility], were you homeless or living in a alf (including now)? No 09/29/2024 Personal Safety Answer [...] on file Legal Sex Male 5:49 PM GEOLOGICAL SPECIALIST Gender Identity Not on file Sexual Orientation Not on file Obstetrics History Last Filed Vital Signs Vital Sign Reading Time Taken Comments Blood Pressure 161/95 10/01/2024 7:56 AM GEOLOGICAL SPECIALIST Pulse 75 10/01/2024 7:56 AM GEOLOGICAL SPECIALIST Temperature 37.3 C (99.1 F) 10/01/2024 7:56 AM GEOLOGICAL SPECIALIST Respiratory Rate 20 10/01/2024 7:56 AM GEOLOGICAL SPECIALIST Oxygen Saturation 97% 10/01/2024 7:56 AM GEOLOGICAL SPECIALIST Inhaled Oxygen Concentration - - Weight 72.6 kg (160 lb 1.6 oz) 09/28/2024 2:30 P M GEOLOGICAL SPECIALIST Height 177.8 cm (5' 10 ) 09/28/2024 2:30 PM GEOLOGICAL SPECIALIST Body Mass Index 22.97 09/28/2024 2:30 PM GEOLOGICAL SPECIALIST Plan of Treatment Health Maintenance Due Date [...] GONORRHOEAE/C. TRACHOMATIS AMPLIFICATION Routine 09/30/2024 11:18 AM GEOLOGICAL SPECIALIST URINALYSIS, MICROSCOPIC ONLY STAT 09/28/2024 3:44 AM GEOLOGICAL SPECIALIST DRUGS OF ABUSE SCREEN, URINE WITHOUT CONFIRMATION STAT 09/28/2024 3:44 AM GEOLOGICAL SPECIALIST URINALYSIS AND REFLEX TO MICROSCOPIC STAT 09/28/2024 3:44 AM GEOLOGICAL SPECIALIST IRON PROFILE W/ IBC STAT 09/28/2024 3 :15 AM GEOLOGICAL SPECIALIST FERRITIN STAT 09/28/2024 3:15 AM GEOLOGICAL SPECIALIST TSH STAT 09/28/2024 3:15 AM GEOLOGICAL SPECIALIST VITAMIN B12 STAT 09/28/2024 3:15 AM GEOLOGICAL SPECIALIST ETHANOL STAT 09/28/2024 3:15 AM GEOLOGICAL SPECIALIST LIPID PANEL STAT 09/28/2024 1:27 AM GEOLOGICAL SPECIALIST EGFR STAT 09/28/2024 1:27 AM GEOLOGICAL SPECIALIST DIFFERENTIAL AUTO STAT 09/28/2024 1:2 7 AM GEOLOGICAL SPECIALIST LIPASE STAT 09/28/2024 1:27 AM GEOLOGICAL SPECIALIST COMPREHENSIVE METABOLIC PANEL STAT 09/28/2024 1:27 AM GEOLOGICAL SPECIALIST CBC WITH AUTO DIFFERENTIAL STAT 09/28/2024 1:27 AM GEOLOGICAL SPECIALIST RPR STAT 09/28/2024 1:27 AM GEOLOGICAL SPECIALIST HIV 1/2 ANTIBODY PLUS P24 ANTIGEN STAT 09/28/2024 1:27 AM GEOLOGICAL SPECIALIST RESPIRATORY PATHOGEN PANEL STAT 09/27/2024 10:38 PM GEOLOGICAL SPECIALIST TROPONIN I HIGH-SENSITIVITY 2-HOUR Timed 09/19/2024 5:19 PM GEOLOGICAL SPECIALIST XR CHEST PA LATERAL 2 VIEWS ED 09/19/2024 3:06 PM GEOLOGICAL SPECIALIST ECG 12-LEAD STAT 09/19/2024 3:00 PM GEOLOGICAL SPECIALIST EGFR STAT 09/19/2024 2:56 PM GEOLOGICAL SPECIALIST DIFFERENTIAL AUTO STAT 09/19/2024 2:5 6 PM GEOLOGICAL SPECIALIST TROPONIN I HIGH-SENSITIVITY SERIES (BASELINE, 2HR, 4HR, 6HR) STAT 09/19/2024 2:56 PM GEOLOGICAL SPECIALIST COMPREHENSIVE METABOLIC PANEL STAT 09/19/2024 2:56 PM GEOLOGICAL SPECIALIST CBC WITH AUTO DIFFERENTIAL STAT 09/19/2024 2:56 PM GEOLOGICAL SPECIALIST EGFR Routine 09/14/2024 4:26 AM GEOLOGICAL SPECIALIST LIPASE STAT 09/14/2024 4:26 AM GEOLOGICAL SPECIALIST COMPREHENSIVE METABOLIC PANEL Routine 09/14/2024 4:26 AM GEOLOGICAL SPECIALIST CBC WITHOUT DIFFERENTIAL Routine 09/14/2024 4:26 AM GEOLOGICAL SPECIALIST URINALYSIS, MICROSCOPIC ONLY Routine 09/14/2024 1:16 AM GEOLOGICAL SPECIALIST URINALYSIS AND REFLEX TO MICROSCOPIC AND CULTURE Routine 09/14/2024 1:16 AM GEOLOGICAL SPECIALIST POCUS CARDIAC 09/07/2024 3:41 AM GEOLOGICAL SPECIALIST TROPONIN I HIGH-SENSITIVITY 4-HOUR Timed 09/07/2024 2:19 AM GEOLOGICAL SPECIALIST TROPONIN I HIGH-SENSITIVITY 2-HOUR Timed 09/06/2024 10:53 PM GEOLOGICAL SPECIALIST ECG 12-LEAD STAT 09/06/2024 9:44 PM GEOLOGICAL SPECIALIST EGFR STAT 09/06/2024 9:13 PM GEOLOGICAL SPECIALIST DIFFERENTIAL AUTO STAT 09/06/2024 9:1 3 PM GEOLOGICAL SPECIALIST TROPONIN I HIGH-SENSITIVITY SERIES (BASELINE, 2HR, 4HR, 6HR) STAT 09/06/2024 9:13 PM GEOLOGICAL SPECIALIST COMPREHENSIVE METABOLIC PANEL STAT 09/06/2024 9:13 PM GEOLOGICAL SPECIALIST CBC WITH AUTO DIFFERENTIAL STAT 09/06/2024 9:13 PM GEOLOGICAL SPECIALIST XR FINGER RIGHT 2 OR MORE VIEWS ED 09/06/2024 8:43 PM GEOLOGICAL SPECIALIST XR CHEST PA LATERAL 2 VIEWS ED 09/06/2024 8:43 PM GEOLOGICAL SPECIALIST from Last 3 Months Results * N. gonorrhoeae/C. trachomatis Amplification Urine (09/30/2024 11:18 AM GEOLOGICAL SPECIALIST) [facility] C. trachomatis Not Detected Not [...] this test have been verified by the [facility] Molecular Infectious Disease laboratory. The performance characteristics of this test have not been evaluated in individuals less than 14 years of age. Current Interpretive Data last revised 2023. Urine (None) 09/30/2024 11:1 8 AM GEOLOGICAL SPECIALIST 10/01/2024 2:05 PM GEOLOGICAL SPECIALIST us Max Lira MD LAB MICROBIOLOGY - GENERA L ORDERABLES Final Result [facility] Department [place] [address] [facility] * (ABNORMAL) Urinalysis reflex to microscopic (09/28/2024 3:44 AM GEOLOGICAL SPECIALIST) Color, ur Yellow Yellow Clarity, ur Clear Clear [facility] Specific gravity, ur 1.033(H) 1.003 - 1.030 [facility] pH, urine 6.0 [facility] Comment: Interpretive Data U rine pH is affected by diet, medications, systemic acid-base disturbances, and renal tubular function. pH may affect urinary stone formation. For example, urine pH below 6.0 may help reduce the tendency for calcium phosphate stones and pH greater than 6.0 may reduce the tendency for uric acid stone formation. Source: [facility] Current Interpretive Data was last revised on 2017 Protein, ur ql 1+(A) Negative [facility] Glucose, ur ql Negative Negative [facility] Ketones, ur Trace Negative [facility] Bilirubin, ur Negative Negative [facility] Blood, ur 1+(A) Negative [facility] Urobilinogen, ur <2.0 <2.0 mg/dL [facility] Nitrite, ur Negative Negative [facility] Leukocyte esterase, ur Negative Negative [facility] UA reflex comment Reflex to microscopic UA will be performed. [facility] Urine 09/28/2024 3:44 AM GEOLOGICAL SPECIALIST 09/28/2024 3:52 AM GEOLOGICAL SPECIALIST Torres Aremnta MD LAB URINE ORDERABLES Vickie arreola Result [facility] Department [place] [address] * (ABNORMAL) Drugs of Abuse Screen, Urine without Confirmation (09/28/2024 3:44 AM GEOLOGICAL SPECIALIST) Amphetamine, ur Not Detected [facility] 500ng/mL Comment: Interpretive Data - Amphetamines: Samples containing greater than 500 ng/mL d-methamphetamine or other cross-reacting amphetamine compounds are reported as positive. Amphetamine immunoassays are subject to significant false positive rates due to cross-reactivity of non-amphetamine drugs. Confirmatory testing required for definitive results. Current Interpretive Data was last reviewed 2023. Barbiturates, ur Not Detected CutOff 200ng/mL [facility] Comment: Interpretive Data - Barbiturates: Samples [...] 2023. Oxycodone, ur Not Detected CutOff 100ng/mL [facility] Comment: Interpretive Data - Oxycodone: Samples containing greater than 100 ng/mL oxycodone or other cross-reacting compounds are reported as positive. False positive and false negative results are possible. Confirmatory testing required for definitive results. Current Interpretive Data was last reviewed 2023. Phencyclidine, ur Not Detected CutOff 25 ng/mL [facility] Comment: Interpretive Data - Phencyclidine: Samples containing greater than 25 ng/mL phencyclidine or other cross-reacting compounds are reported as positive. False positive and false negative results are possible. Confirmatory testing required for definitive results. Current Interpretive Data was last reviewed 2023. Urine Creatinine 460 mg/dL [facility] Comment: Interpretive Data Urine Creatinine: < 10 mg/dL is extremely dilute = or > 10 but < 20 mg/dL is dilute = or > 20 mg/dL is normal Current Interpretive Data was last revised on 2017. Urine 09/28/2024 3:44 AM GEOLOGICAL SPECIALIST 09/28/2024 4:00 AM GEOLOGICAL SPECIALIST Narrative [facility] - 09/28/2024 4:43 AM GEOLOGICAL SPECIALIST Drug of Abuse screening is performed by immunoassay for medical purposes only. This is not to be used for Pain Management purposes. Molly Haynes MD LAB URINE ORDERABL ES Edited Result - Final [facility] [place] [address] * (ABNORMAL) Urinalysis, microscopic only (09/28/2024 3:44 AM GEOLOGICAL SPECIALIST) WBC, ur 0-5 0 - 5 /HPF RBC, ur 0-2 0 - 2 /HPF [facility] Bacteria, ur 1+(A) [facility] Yeast, ur TRACE [facility] Mucous, ur Present(A) [facility] Amorphous crystals, ur 1+(A) [facility] Urine 09/28/2024 3:44 AM GEOLOGICAL SPECIALIST 09/28/2024 3:52 AM GEOLOGICAL SPECIALIST Torres Armenta MD LAB URINE ORDERABLES Vickie l Result Performing Organization Address [facility] Co de Phone Number [facility] [place] [address] * Iron profile w/ IBC (09/28/2024 3:15 AM GEOLOGICAL SPECIALIST) Iron See Comment 50 - 150 mcg/dL Comment: Credited; Hemolyzed Specimen Telephone report made to: destiny on 09/29/2024 21:39:47 GEOLOGICAL SPECIALIST by rxy . TIBC See Comment 250 - 400 mcg/dL [facility] Comment: Credited; Hemolyzed Specimen Telephone report made to: destiny on 09/29/2024 21:39:47 GEOLOGICAL SPECIALIST by rxy . Unable to calculate exact result. Transferrin saturation See Comment 20 - 50 % [facility] Comment: Credited; Hemolyzed Specimen Telephone report made to: destiny on 09/29/2024 21:39:47 GEOLOGICAL SPECIALIST by rxy . Unable to calculate exact result. Blood 09/28/2024 3:15 AM GEOLOGICAL SPECIALIST 09/28/2024 3:25 AM GEOLOGICAL SPECIALIST Destiny Ch MD LAB BLOOD ORDERABLES Final R esult Performing Organization Address [facility] Co de Phone Number [facility] Department [place] [address] * TSH (09/28/2024 3:15 AM GEOLOGICAL SPECIALIST) Thyroid Stimulating Hormone 0.76 0.30 - 4.20 mcIUnit/mL Blood 09/28/2024 3:15 AM GEOLOGICAL SPECIALIST 09/28/2024 3:25 AM GEOLOGICAL SPECIALIST Destiny Ch MD LAB BLOOD ORDERABLES Final R esult Performing Organization Address [facility] Co de Phone Number [facility] [place] [address] * Ferritin (09/28/2024 3:15 AM GEOLOGICAL SPECIALIST) Pathologist [facility] Ferritin See Comment 30 - 400 ng/mL Comment: Credited; Hemolyzed Specimen Telephone report made to: destiny on 09/29/2024 21:39:02 GEOLOGICAL SPECIALIST by RXY . Blood 09/28/2024 3:15 AM GEOLOGICAL SPECIALIST 09/28/2024 3:25 AM GEOLOGICAL SPECIALIST us Destiny Ch MD LAB BLOOD ORDERABLES Final R esult Performing Organization Address [facility] Co de Phone Number [facility] [place] [address] * Vitamin B12 (09/28/2024 3:15 AM GEOLOGICAL SPECIALIST) [facility] Vitamin B12 307 230 - 1,250 pg/mL Blood 09/28/2024 3:15 AM GEOLOGICAL SPECIALIST 09/28/2024 3:25 AM GEOLOGICAL SPECIALIST us Destiny Ch MD LAB BLOOD ORDERABLES Final R esult Performing Organization Address [facility] Co de Phone Number [facility] Department [place] [address] * Ethanol (09/28/2024 3:15 AM GEOLOGICAL SPECIALIST) Pathologist [facility] Ethanol <10 <=10 mg/dL Comment: Hemolyzed; result may be falsely decreased Interpretive Data Legal limit of intoxication > or = 80 mg/dL Levels > or = 400 mg/dL are potentially TOXIC. Current interpretive data was last revised on 2018. Blood 09/28/2024 3:15 AM GEOLOGICAL SPECIALIST 09/28/2024 3:25 AM GEOLOGICAL SPECIALIST us Molly Haynes MD LAB BLOOD ORDERABL ES Final Result Performing Organization Address [facility] Co de Phone Number [facility] Department [place] [address] * eGFR (09/28/2024 1:27 AM GEOLOGICAL SPECIALIST) eGFR 80 >=60 mL/min/1. 73 m2 Comment: [...] last reviewed 2021. Blood 09/28/2024 1:27 AM GEOLOGICAL SPECIALIST 09/28/2024 1:45 AM GEOLOGICAL SPECIALIST Torres Armenta MD LAB BLOOD ORDERABLES Vickie l Result Performing Organization Address [facility] Co de Phone Number [facility] Department [place] [address] * (ABNORMAL) Differential, auto (09/28/2024 1:27 AM GEOLOGICAL SPECIALIST) Pathologist [facility] Neutrophil abs 5.7 1.5 - 6.5 K/cumm Imm gran abs 0.0 0.0 - 0.1 K/cumm [facility] Lymphocyte abs 1.8 0.8 - 3.3 K/cumm [facility] Monocyte abs 1.0(H) 0.2 - 0.8 K/cumm [facility] Eosinophil abs 0.1 0.0 - 0.5 K/cumm [facility] Basophil abs 0.0 0.0 - 0.1 K/cumm [facility] Neutrophil pct 65.2 % [facility] Comment: Interpretive Data Percent cell count reference ranges are not reported, since discordance with absolute values may lead to misinterpretation of CBC data. Current Interpretive Data was last revised on 2017. Imm gran pct 0.5 % [facility] Comment: Interpretive Data Percent cell count reference ranges are not reported, since discordance with absolute values may lead to misinterpretation of CBC data. Current Interpretive Data was last revised on 2017. Lymphocyte pct 21.2 % [facility] Comment: Interpretive Data Percent cell count reference ranges are not reported, since discordance with absolute values may lead to misinterpretation of CBC data. Current Interpretive Data was last revised on 2017. Monocyte pct 11.6 % [facility] Comment: Interpretive Data Percent cell count reference ranges are not reported, since discordance with absolute values may lead to misinterpretation of CBC data. Current Interpretive Data was last revised on 2017. Eosinophil pct 1.4 % [facility] Comment: Interpretive Data Percent cell count reference ranges are not reported, since discordance with absolute values may lead to misinterpretation of CBC data. Current Interpretive Data was last revised on 2017. Basophil pct 0.1 % [facility] Comment: Interpretive Data Percent cell count reference ranges are not reported, since discordance with absolute values may lead to misinterpretation of CBC data. Current Interpretive Data was last revised on 2017. Blood 09/28/2024 1:27 AM GEOLOGICAL SPECIALIST 09/28/2024 1:45 AM GEOLOGICAL SPECIALIST us Torres Armenta MD LAB BLOOD ORDERABLES Vickie arreola Result [facility] Department [place] [address] * HIV 1/2 Antibody plus p24 Antigen Blood (09/28/2024 1:27 AM GEOLOGICAL SPECIALIST) HIV 1/2 ab + p24 ag Nonreactive Nonreactive Comment:Nonreactive for HIV- 1 antigen and HIV-1/HIV-2 antibodies. No laboratory evidence of HIV infection. If acute HIV infection is suspected, consider testing for HIV-1 RNA. Current interpretive data was last revised on 22. Blood 09/28/2024 1:27 AM GEOLOGICAL SPECIALIST 09/28/2024 1:45 AM GEOLOGICAL SPECIALIST us Destiny Ch MD LAB MICROBIOLOGY - GENERAL O RDERABLES Final Result [facility] [place] [address] * CBC with auto differential (09/28/2024 1:27 AM GEOLOGICAL SPECIALIST) [facility] WBC 8.7 3.8 - 9.9 K/cumm Hgb 13.9 13.0 - 17.5 g/dL [facility] Hct 42.6 38.9 - 50.3 % [facility] Plt 270 150 - 400 K/cumm [facility] MPV 10.0 9.1 - 12.3 fL [facility] RBC 4.87 4.30 - 5.80 M/cumm [facility] MCV 87.5 81.3 - 96.4 fL [facility] MCH 28.5 27.1 - 33.3 pg [facility] MCHC 32.6 32.3 - 35.7 g/dL [facility] RDW CV 13.2 11.1 - 14.9 % [facility] RDW SD 42.5 35.7 - 48.1 fL [facility] NRBC abs 0.00 0.00 - 0.01 K/cumm [facility] Blood Venous blood specimen / Unknown 09/28/2024 1:27 AM GEOLOGICAL SPECIALIST 09/28/2024 1:45 AM GEOLOGICAL SPECIALIST us Torres Armenta MD LAB BLOOD ORDERABLES Vickie l Result [facility] Department [place] [address] * RPR Blood (09/28/2024 1:27 AM GEOLOGICAL SPECIALIST) RPR Nonreactive Nonreactive Blood 09/28/2024 1:27 AM GEOLOGICAL SPECIALIST 09/28/2024 1:50 AM GEOLOGICAL SPECIALIST us Destiny Ch MD LAB MICROBIOLOGY - GENERAL O RDERABLES Final Result [facility] Department [place] [address] * Lipase (09/28/2024 1:27 AM GEOLOGICAL SPECIALIST) Pathologist [facility] Lipase 27 10 - 99 Units/L Blood Venous blood specimen / Unknown 09/28/2024 1:27 AM GEOLOGICAL SPECIALIST 09/28/2024 1:45 AM GEOLOGICAL SPECIALIST us Torres Armenta MD LAB BLOOD ORDERABLES Vickie l Result [facility] Department [place] [address] * Lipid panel (09/28/2024 1:27 AM GEOLOGICAL SPECIALIST) Pathologist [facility] Cholesterol 163 30 - 199 mg/dL Comment: [...] revised on 2018. Triglycerides 75 <=149 mg/dL [facility] Comment: Interpretive Data Ages < or [...] revised on 2018. HDL 57 >=40 mg/dL [facility] Comment: Interpretive Data Ages < or [...] on 2018. LDL, calculated 92 <=129 mg/dL [facility] Comment: Interpretive Data Ages < or [...] revised on 2024. Non-HDL Cholesterol 106 mg/dL [facility] Comment: Interpretive Data Ages < or [...] last revised on 2018. Chol/HDL ratio 3 [facility] Blood 09/28/2024 1:27 AM GEOLOGICAL SPECIALIST 09/28/2024 1:45 AM GEOLOGICAL SPECIALIST us Destiny Ch MD LAB BLOOD ORDERABLES Final R esult [facility] [place] [address] * Comprehensive metabolic panel (09/28/2024 1:27 AM GEOLOGICAL SPECIALIST) Sodium 143 135 - 145 mmol/L Potassium, pl 4.6 3.3 - 4.9 mmol/L [facility] Chloride 106 97 - 110 mmol/L [facility] CO2 29 22 - 32 mmol/L [facility] Anion gap 8 2 - 15 mmol/L [facility] BUN 10 6 - 25 mg/dL [facility] Creatinine 1.22 0.80 - 1.30 mg/dL [facility] Glucose 100 70 - 199 mg/dL [facility] Comment: Interpretive Data Fasting glucose >/= [...] 2022. Calcium 9.7 8.5 - 10.3 mg/dL [facility] Bilirubin, total 0.2 0.1 - 1.2 mg/dL [facility] Protein, pl 7.7 6.5 - 8.5 g/dL [facility] Albumin 3.9 3.5 - 5.0 g/dL [facility] Alk phos 74 40 - 130 Units/L [facility] ALT 22 7 - 55 Units/L [facility] AST 24 10 - 50 Units/L [facility] Blood 09/28/2024 1:27 AM GEOLOGICAL SPECIALIST 09/28/2024 1:45 AM GEOLOGICAL SPECIALIST Torres Armenta MD LAB BLOOD ORDERABLES Vickie arreola Result [facility] Department [place] [address] * Respiratory pathogen panel Nasopharyngeal (09/27/2024 10:38 PM GEOLOGICAL SPECIALIST) Pathologist [facility] Influenza A RNA Not Detected Not Detected Influenza B RNA Not Detected Not Detected [facility] RSV RNA Not Detected Not Detected [facility] COVID-19 RNA Not Detected Not Detected [facility] Coronavirus 229E RNA Not Detected Not Detected [facility] Coronavirus HKU1 RNA Not Detected Not Detected [facility] Coronavirus NL63 RNA Not Detected Not Detected [facility] Coronavirus OC43 RNA Not Detected Not Detected [facility] Adenovirus DNA Not Detected Not Detected [facility] Metapneumovirus RNA Not Detected Not Detected [facility] Rhinovirus/Enterov irus RNA Not Detected Not Detected [facility] Parainfluenza 1 RNA Not Detected Not Detected [facility] Parainfluenza 2 RNA Not Detected Not Detected [facility] Parainfluenza 3 RNA Not Detected Not Detected [facility] Parainfluenza 4 RNA Not Detected Not Detected [facility] B. pertussis DNA Not Detected Not Detected [facility] B. parapertussis DNA Not Detected Not Detected [facility] C. pneumoniae DNA Not Detected Not Detected [facility] M. pneumoniae DNA Not Detected Not Detected [facility] Nasopharyngeal 09/27/2024 10 :38 PM GEOLOGICAL SPECIALIST 09/28/2024 1:00 AM GEOLOGICAL SPECIALIST Buddy [facility] - 09/28/2024 2:21 AM GEOLOGICAL SPECIALIST Is the Patient experiencing symptoms consistent with COVID?->Yes Surveillance testing for transplant patient?->No Interpretive Data The 3PointData FilmArray Respiratory Panel (RP2.1) assay is a [...] assay has FDA clearance for testing of PATTERN KEEPER swabs. The performance of additional specimen types has been assessed by the performing laboratory. The performance characteristics of this assay have been determined by [facility] Molecular Infectious Disease Laboratory. Current interpretive data was last revised on 22. us Torres Armenta MD LAB MICROBIOLOGY - GENERA L ORDERABLES Final Result Performing Organization Address [facility] de Phone Number [facility] [place] [address] * Troponin I high-sensitivity 2-hour (09/19/2024 5:19 PM GEOLOGICAL SPECIALIST) Trop I hs 8 <=35 ng/L Comment: Interpretive Data For further hscTnI resources including the diagnostic algorithm and an aid in interpretation, copy and paste this link: [email or web address].[email or web address]/show/[email or web address] Current Interpretive Data last revised 2020. Trop I hs delta 1 ng/L [facility] Trop I hs interp Insignificant [facility] Blood 09/19/2024 5:19 PM GEOLOGICAL SPECIALIST 09/19/2024 5:36 PM GEOLOGICAL SPECIALIST us Ole Kay MD LAB BLOOD ORDERABLES Final Result Performing Organization Address [facility] de Phone Number [facility] Department [place] [address] * XR Chest Pa Lateral 2 Views (09/19/2024 3:06 PM GEOLOGICAL SPECIALIST) Anatomical Region Laterality Modality Body, Chest N/A Computed Radiogr aphy 09/19/2024 3:41 PM GEOLOGICAL SPECIALIST Impressions 09/19/2024 4:08 PM GEOLOGICAL SPECIALIST Comparison with chest radiograph dated 09/06/2024. No pulmonary consolidation, pleural effusion, or pneumothorax. Cardiomediastinal silhouette is normal. Dictated by: Kolby Garvey M.D. The radiology attending physician has personally reviewed this study, and had reviewed and/or edited this written report and agrees with it. Electronically signed by: Rory Castellano M.D. Narrative 09/19/2024 4:08 PM GEOLOGICAL SPECIALIST EXAMINATION: 2 view chest radiograph Procedure Note [...] * (ABNORMAL) ECG 12-LEAD (09/19/2024 3:00 PM GEOLOGICAL SPECIALIST) Narrative [facility] - 09/19/2024 3:00 PM GEOLOGICAL SPECIALIST Irina Yeager MD 09/19/2024 3:01 PM ECG [...] in V2, v3,v4,v5,v6, avf, II, III With SD depression in avF, I,II, v4, v5. Similar [...] in V2, v3,v4,v5,v6, avf, II, III With SD depression in avF, I,II, v4, v5. Similar to prior EKG on 12/05/23. Acute pericarditis concern Irina Yeager MD 09/19/24 1501 us Kenny Curran MD ECG ORDERABLES Final R esult Performing Organization Address City/[facility]/ZIP Co de Phone Number [facility] * Troponin I high-sensitivity series (baseline, 2hr, 4hr, 6hr) (09/19/2024 2:56 PM GEOLOGICAL SPECIALIST) Trop I hs 7 <=35 ng/L Comment: Interpretive Data For further hscTnI resources including the diagnostic algorithm and an aid in interpretation, copy and paste this link: [email or web address].testcatalog.org/show/[email or web address] Current Interpretive Data last revised 2020. Blood 09/19/2024 2:56 PM GEOLOGICAL SPECIALIST 09/19/2024 3:25 PM GEOLOGICAL SPECIALIST us Kenny Curran MD LAB BLOOD ORDERABLES Fi nal Result Performing Organization Address City/[facility] Co de Phone Number [facility] Department [place] [address] * eGFR (09/19/2024 2:56 PM GEOLOGICAL SPECIALIST) eGFR >90 >=60 mL/min/1. 73 m2 Comment: [...] last reviewed 2021. Blood 09/19/2024 2:56 PM GEOLOGICAL SPECIALIST 09/19/2024 3:25 PM GEOLOGICAL SPECIALIST us Kenny Curran MD LAB BLOOD ORDERABLES Fi nal Result [facility] Department [place] [address] * Differential, auto (09/19/2024 2:56 PM GEOLOGICAL SPECIALIST) Neutrophil abs 2.5 1.5 - 6.5 K/cumm Imm gran abs 0.0 0.0 - 0.1 K/cumm [facility] Lymphocyte abs 1.7 0.8 - 3.3 K/cumm [facility] Monocyte abs 0.5 0.2 - 0.8 K/cumm [facility] Eosinophil abs 0.1 0.0 - 0.5 K/cumm [facility] Basophil abs 0.0 0.0 - 0.1 K/cumm [facility] Neutrophil pct 50.3 % [facility] Comment: Interpretive Data Percent cell count reference ranges are not reported, since discordance with absolute values may lead to misinterpretation of CBC data. Current Interpretive Data was last revised on 2017. Imm gran pct 0.2 % [facility] Comment: Interpretive Data Percent cell count reference ranges are not reported, since discordance with absolute values may lead to misinterpretation of CBC data. Current Interpretive Data was last revised on 2017. Lymphocyte pct 35.7 % [facility] Comment: Interpretive Data Percent cell count reference ranges are not reported, since discordance with absolute values may lead to misinterpretation of CBC data. Current Interpretive Data was last revised on 2017. Monocyte pct 10.7 % [facility] Comment: Interpretive Data Percent cell count reference ranges are not reported, since discordance with absolute values may lead to misinterpretation of CBC data. Current Interpretive Data was last revised on 2017. Eosinophil pct 2.5 % [facility] Comment: Interpretive Data Percent cell count reference ranges are not reported, since discordance with absolute values may lead to misinterpretation of CBC data. Current Interpretive Data was last revised on 2017. Basophil pct 0.6 % [facility] Comment: Interpretive Data Percent cell count reference ranges are not reported, since discordance with absolute values may lead to misinterpretation of CBC data. Current Interpretive Data was last revised on 2017. Blood 09/19/2024 2:56 PM GEOLOGICAL SPECIALIST 09/19/2024 3:25 PM GEOLOGICAL SPECIALIST Kenny Curran MD LAB BLOOD ORDERABLES Fi nal Result [facility] Department [place] [address] * (ABNORMAL) CBC with auto differential (09/19/2024 2:56 PM GEOLOGICAL SPECIALIST) WBC 4.9 3.8 - 9.9 K/cumm Hgb 12.8(L) 13.0 - 17.5 g/dL [facility] Hct 40.5 38.9 - 50.3 % [facility] Plt 271 150 - 400 K/cumm [facility] MPV 9.7 9.1 - 12.3 fL [facility] RBC 4.63 4.30 - 5.80 M/cumm [facility] MCV 87.5 81.3 - 96.4 fL [facility] MCH 27.6 27.1 - 33.3 pg [facility] MCHC 31.6(L) 32.3 - 35.7 g/dL [facility] RDW CV 13.2 11.1 - 14.9 % [facility] RDW SD 41.6 35.7 - 48.1 fL [facility] NRBC abs 0.02(H) 0.00 - 0.01 K/cumm [facility] Blood Venous blood specimen / Unknown 09/19/2024 2:56 PM GEOLOGICAL SPECIALIST 09/19/2024 3:25 PM GEOLOGICAL SPECIALIST us Kenny Curran MD LAB BLOOD ORDERABLES Fi nal Result [facility] Department [place] [address] * Comprehensive metabolic panel (09/19/2024 2:56 PM GEOLOGICAL SPECIALIST) Sodium 141 135 - 145 mmol/L Potassium, pl 3.9 3.3 - 4.9 mmol/L [facility] Chloride 106 97 - 110 mmol/L [facility] CO2 26 22 - 32 mmol/L [facility] Anion gap 9 2 - 15 mmol/L [facility] BUN 6 6 - 25 mg/dL [facility] Creatinine 1.00 0.80 - 1.30 mg/dL [facility] Glucose 93 70 - 199 mg/dL [facility] Comment: Interpretive Data Fasting glucose >/= [...] 2022. Calcium 9.1 8.5 - 10.3 mg/dL [facility] Bilirubin, total 0.2 0.1 - 1.2 mg/dL [facility] Protein, pl 7.1 6.5 - 8.5 g/dL [facility] Albumin 4.2 3.5 - 5.0 g/dL [facility] Alk phos 69 40 - 130 Units/L [facility] ALT 32 7 - 55 Units/L [facility] AST 22 10 - 50 Units/L [facility] Blood 09/19/2024 2:56 PM GEOLOGICAL SPECIALIST 09/19/2024 3:25 PM GEOLOGICAL SPECIALIST Kenny Curran MD LAB BLOOD ORDERABLES Fi nal Result Performing Organization Address [facility] Co de Phone Number [facility] [place] [address] * eGFR (09/14/2024 4:26 AM GEOLOGICAL SPECIALIST) eGFR >90 >=60 mL/min/1. 73 m2 Comment: [...] last reviewed 2021. Blood 09/14/2024 4:26 AM GEOLOGICAL SPECIALIST 09/14/2024 4:45 AM GEOLOGICAL SPECIALIST us Qi Cherry MD LAB BLOOD ORDERABLES Final R esult Performing Organization Address [facility] Co de Phone Number [facility] Department [place] [address] * (ABNORMAL) CBC without differential (09/14/2024 4:26 AM GEOLOGICAL SPECIALIST) WBC 6.1 3.8 - 9.9 K/cumm Hgb 12.0(L) 13.0 - 17.5 g/dL [facility] Hct 37.2(L) 38.9 - 50.3 % [facility] Plt 218 150 - 400 K/cumm [facility] MPV 10.0 9.1 - 12.3 fL [facility] RBC 4.28(L) 4.30 - 5.80 M/cumm [facility] MCV 86.9 81.3 - 96.4 fL [facility] MCH 28.0 27.1 - 33.3 pg [facility] MCHC 32.3 32.3 - 35.7 g/dL [facility] RDW CV 13.2 11.1 - 14.9 % [facility] RDW SD 41.2 35.7 - 48.1 fL [facility] NRBC abs 0.00 0.00 - 0.01 K/cumm [facility] Blood 09/14/2024 4:26 AM GEOLOGICAL SPECIALIST 09/14/2024 4:45 AM GEOLOGICAL SPECIALIST Qi Cherry MD LAB BLOOD ORDERABLES Final R esult Performing Organization Address City/[facility]/ZIP Co de Phone Number [facility] [place] [address] * Lipase (09/14/2024 4:26 AM GEOLOGICAL SPECIALIST) Pathologist [facility] Lipase 39 10 - 99 Units/L Blood 09/14/2024 4:26 AM GEOLOGICAL SPECIALIST 09/14/2024 4:45 AM GEOLOGICAL SPECIALIST Qi Cherry MD LAB BLOOD ORDERABLES Final R esult [facility] [place] [address] * (ABNORMAL) Comprehensive metabolic panel (09/14/2024 4:26 AM GEOLOGICAL SPECIALIST) Pathologist [facility] Sodium 142 135 - 145 mmol/L Potassium, pl 4.4 3.3 - 4.9 mmol/L [facility] Chloride 108 97 - 110 mmol/L [facility] CO2 27 22 - 32 mmol/L [facility] Anion gap 7 2 - 15 mmol/L [facility] BUN 12 6 - 25 mg/dL [facility] Creatinine 1.08 0.80 - 1.30 mg/dL [facility] Glucose 110 70 - 199 mg/dL [facility] Comment: Interpretive Data Fasting glucose >/= [...] 2022. Calcium 8.4(L) 8.5 - 10.3 mg/dL [facility] Bilirubin, total <0.2 0.1 - 1.2 mg/dL [facility] Protein, pl 6.1(L) 6.5 - 8.5 g/dL [facility] Albumin 3.4(L) 3.5 - 5.0 g/dL [facility] Alk phos 65 40 - 130 Units/L [facility] ALT 27 7 - 55 Units/L [facility] AST 25 10 - 50 Units/L [facility] Blood 09/14/2024 4:26 AM GEOLOGICAL SPECIALIST 09/14/2024 4:45 AM GEOLOGICAL SPECIALIST us Qi Cherry MD LAB BLOOD ORDERABLES Final R esult [facility] Department [place] [address] * (ABNORMAL) Urinalysis reflex to microscopic and culture Urine (09/14/2024 1:16 AM GEOLOGICAL SPECIALIST) Color, ur Yellow Yellow Clarity, ur Clear Clear [facility] Specific gravity, ur 1.031(H) 1.003 - 1.030 [facility] pH, urine 6.5 [facility] Comment: Interpretive Data U rine pH is affected by diet, medications, systemic acid-base disturbances, and renal tubular function. pH may affect urinary stone formation. For example, urine pH below 6.0 may help reduce the tendency for calcium phosphate stones and pH greater than 6.0 may reduce the tendency for uric acid stone formation. Source: [facility] Current Interpretive Data was last revised on 2017 Protein, ur ql 1+(A) Negative [facility] Glucose, ur ql Negative Negative [facility] Ketones, ur Negative Negative [facility] Bilirubin, ur Negative Negative [facility] Blood, ur 1+(A) Negative [facility] Urobilinogen, ur <2.0 <2.0 mg/dL [facility] Nitrite, ur Negative Negative [facility] Leukocyte esterase, ur Negative Negative [facility] UA reflex comment Reflex to microscopic UA will be performed. [facility] Urine 09/14/2024 1:16 AM GEOLOGICAL SPECIALIST 09/14/2024 1:25 AM GEOLOGICAL SPECIALIST Qi Cherry MD LAB MICROBIOLOGY - GENERAL O RDERABLES Final Result [facility] [place] [address] * (ABNORMAL) Urinalysis, microscopic only (09/14/2024 1:16 AM GEOLOGICAL SPECIALIST) WBC, ur 0-5 0 - 5 /HPF RBC, ur 11-20(A) 0 - 2 /HPF [facility] Bacteria, ur Trace(A) [facility] Mucous, ur Present(A) [facility] Hyaline casts, ur 1-5 0 - 10 /LPF [facility] Culture Reflex Comment Reflex conditions for urine culture (WBC >10) not met. [facility] Urine 09/14/2024 1:16 AM GEOLOGICAL SPECIALIST 09/14/2024 1:25 AM GEOLOGICAL SPECIALIST Qi Cherry MD LAB URINE ORDERABLES Final R esult [facility] [place] [address] * POCUS Cardiac (09/07/2024 3:41 AM GEOLOGICAL SPECIALIST) Anatomical Region Laterality Modality Other 09/07/2024 2:37 AM GEOLOGICAL SPECIALIST Narrative 09/07/2024 5:32 AM GEOLOGICAL SPECIALIST Performed by: Kolby Dominguez Cardiac: Exam type: [...] Troponin I high-sensitivity 4-hour (09/07/2024 2:19 AM GEOLOGICAL SPECIALIST) Trop I hs 12 <=35 ng/L Comment: Interpretive Data For further hscTnI resources including the diagnostic algorithm and an aid in interpretation, copy and paste this link: [email or web address].[email or web address]/show/[email or web address] Current Interpretive Data last revised 2020. Trop [...] report a delta. Blood 09/07/2024 2:19 AM GEOLOGICAL SPECIALIST 09/07/2024 2:40 AM GEOLOGICAL SPECIALIST us [place] Yang MD LAB BLOOD ORDERABLES Final R esult Performing Organization Address [facility] Co de Phone Number [facility] [place] [address] * Troponin I high-sensitivity 2-hour (09/06/2024 10:53 PM GEOLOGICAL SPECIALIST) Trop I hs 12 <=35 ng/L Comment: Interpretive Data For further hscTnI resources including the diagnostic algorithm and an aid in interpretation, copy and paste this link: [email or web address].[email or web address]/show/[email or web address] Current Interpretive Data last revised 2020. Trop I hs delta 0 ng/L [facility] Trop I hs interp Insignificant [facility] Blood 09/06/2024 10:5 3 PM GEOLOGICAL SPECIALIST 09/06/2024 11:08 PM GEOLOGICAL SPECIALIST us Florida Yang MD LAB BLOOD ORDERABLES Final R esult Performing Organization Address [facility] Co de Phone Number [facility] [place] [address] * ECG 12-LEAD (09/06/2024 9:44 PM GEOLOGICAL SPECIALIST) Narrative [facility] - 09/06/2024 9:44 PM GEOLOGICAL SPECIALIST Heriberto Herrera MD 09/06/2024 9:45 PM ECG [...] Muro MD ECG ORDERABLES Final Result [facility] * Troponin I high-sensitivity series (baseline, 2hr, 4hr, 6hr) (09/06/2024 9:13 PM GEOLOGICAL SPECIALIST) [facility] Trop I hs 12 <=35 ng/L Comment: Interpretive Data For further [facility] resources including the diagnostic algorithm and an aid in interpretation, copy and paste this link: [email or web address].testcatalog.org/show/[email or web address] Current Interpretive Data last revised 2020. Blood 09/06/2024 9:13 PM GEOLOGICAL SPECIALIST 09/06/2024 9:55 PM GEOLOGICAL SPECIALIST us Wilmer Muro MD LAB BLOOD ORDERABLES Final Re sult [facility] Department [place] [address] * eGFR (09/06/2024 9:13 PM GEOLOGICAL SPECIALIST) eGFR >90 >=60 mL/min/1. 73 m2 Comment: [...] reviewed 2021. Blood 09/06/2024 9:1 3 PM GEOLOGICAL SPECIALIST 09/06/2024 9:55 PM GEOLOGICAL SPECIALIST us Wilmer Muro MD LAB BLOOD ORDERABLES Final Re sult [facility] Department [place] [address] * Differential, auto (09/06/2024 9:13 PM GEOLOGICAL SPECIALIST) Pathologist [facility] Neutrophil abs 3.6 1.5 - 6.5 K/cumm Imm gran abs 0.0 0.0 - 0.1 K/cumm [facility] Lymphocyte abs 2.0 0.8 - 3.3 K/cumm [facility] Monocyte abs 0.6 0.2 - 0.8 K/cumm [facility] Eosinophil abs 0.1 0.0 - 0.5 K/cumm [facility] Basophil abs 0.0 0.0 - 0.1 K/cumm [facility] Neutrophil pct 57.4 % [facility] Comment: Interpretive Data Percent cell count reference ranges are not reported, since discordance with absolute values may lead to misinterpretation of CBC data. Current Interpretive Data was last revised on 2017. Imm gran pct 0.3 % [facility] Comment: Interpretive Data Percent cell count reference ranges are not reported, since discordance with absolute values may lead to misinterpretation of CBC data. Current Interpretive Data was last revised on 2017. Lymphocyte pct 30.9 % [facility] Comment: Interpretive Data Percent cell count reference ranges are not reported, since discordance with absolute values may lead to misinterpretation of CBC data. Current Interpretive Data was last revised on 2017. Monocyte pct 9.1 % [facility] Comment: Interpretive Data Percent cell count reference ranges are not reported, since discordance with absolute values may lead to misinterpretation of CBC data. Current Interpretive Data was last revised on 2017. Eosinophil pct 2.0 % [facility] Comment: Interpretive Data Percent cell count reference ranges are not reported, since discordance with absolute values may lead to misinterpretation of CBC data. Current Interpretive Data was last revised on 2017. Basophil pct 0.3 % [facility] Comment: Interpretive Data Percent cell count reference ranges are not reported, since discordance with absolute values may lead to misinterpretation of CBC data. Current Interpretive Data was last revised on 2017. Blood 09/06/2024 9:13 PM GEOLOGICAL SPECIALIST 09/06/2024 9:56 PM GEOLOGICAL SPECIALIST us Wilmer Muro MD LAB BLOOD ORDERABLES Final Re sult [facility] [place] [address] * (ABNORMAL) CBC with auto differential (09/06/2024 9:13 PM GEOLOGICAL SPECIALIST) WBC 6.4 3.8 - 9.9 K/cumm Hgb 13.9 13.0 - 17.5 g/dL [facility] Hct 43.6 38.9 - 50.3 % [facility] Plt 267 150 - 400 K/cumm [facility] MPV 10.1 9.1 - 12.3 fL [facility] RBC 4.94 4.30 - 5.80 M/cumm [facility] MCV 88.3 81.3 - 96.4 fL [facility] MCH 28.1 27.1 - 33.3 pg [facility] MCHC 31.9(L) 32.3 - 35.7 g/dL [facility] RDW CV 13.2 11.1 - 14.9 % [facility] RDW SD 42.4 35.7 - 48.1 fL [facility] NRBC abs 0.00 0.00 - 0.01 K/cumm [facility] Blood Venous blood specimen / Unknown 09/06/2024 9:13 PM GEOLOGICAL SPECIALIST 09/06/2024 9:56 PM GEOLOGICAL SPECIALIST us Wilmer Muro MD LAB BLOOD ORDERABLES Final Re sult [facility] [place] [address] * (ABNORMAL) Comprehensive metabolic panel (09/06/2024 9:13 PM GEOLOGICAL SPECIALIST) Sodium 147(H) 135 - 145 mmol/L Potassium, pl 4.1 3.3 - 4.9 mmol/L [facility] Chloride 111(H) 97 - 110 mmol/L [facility] CO2 28 22 - 32 mmol/L [facility] Anion gap 8 2 - 15 mmol/L [facility] BUN 9 6 - 25 mg/dL [facility] Creatinine 1.05 0.80 - 1.30 mg/dL [facility] Glucose 91 70 - 199 mg/dL [facility] Comment: Interpretive Data Fasting glucose >/= [...] Units/L [facility]ERNER BJ Blood 09/06/2024 9:13 PM GEOLOGICAL SPECIALIST 09/06/2024 9:55 PM GEOLOGICAL SPECIALIST us Wilmer Muro MD LAB BLOOD ORDERABLES Final Re sult [facility] [place] [address] * XR Finger Right 2 or More Views (09/06/2024 8:43 PM GEOLOGICAL SPECIALIST) Anatomical Region Laterality Modality Upper Extremities, Hand, Fingers Right Computed Radiography 09/06/2024 8:45 PM GEOLOGICAL SPECIALIST Impressions 09/06/2024 8:57 PM GEOLOGICAL SPECIALIST No acute fracture or dislocation. Joint spaces are preserved. Dictated by: Jay Rios MD The radiology attending physician has personally reviewed this study, and had reviewed and/or edited this written report and agrees with it. Electronically signed by: Mckenna Spencer M.D. Narrative 09/06/2024 8:57 PM GEOLOGICAL SPECIALIST EXAMINATION: XR FINGER RIGHT 2 OR MORE [...] Pa Lateral 2 Views (09/06/2024 8:43 PM GEOLOGICAL SPECIALIST) Anatomical Region Laterality Modality Body, Chest N/A Computed Radiogr aphy 09/06/2024 8:44 PM GEOLOGICAL SPECIALIST Impressions 09/06/2024 8:56 PM GEOLOGICAL SPECIALIST FINDINGS/IMPRESSION: 2 views of the chest are [...] Mckenna Spencer M.D. Narrative 09/06/2024 8:56 PM GEOLOGICAL SPECIALIST EXAMINATION: XR CHEST PA LATERAL 2 VIEWS [...] Advance Directives For more information, please contact: [phone] * Full Code (Latest Code Status on [...] 7:18 AM 05/25/2023 5:25 PM Care Teams Homemaking Rehabilitation Consultant Relationship Specialty Start Date End Date No, Physician PCP - General 11/30/20
--- OUTSIDE RECORDS SUMMARY | 2024-10-09 22:32 | XMS_ITS | Patient Health Summary ---
Author Organization [facility] Address [address] [place] [address] [place] [address] Care Team Providers Care Industrial Specialist Name Role Phone None, Physician Primary Care Provider Unavailabl e Note from [facility],non-owned Affiliates and Associated Physician Practices is amultiple site organization consisting of ambulatory clinics and hospital sitesin [place], [place], [place] and [place]. This disclosure is being madepursuant to the Care Everywhere program and may not contain all information available regarding this patient. Last updated 18.[facility] Allergies No known active allergies Medications * [...] housing, medical care, and heating? Hard 08/07/2023 [facility] - Occupational Stress [...] place to sleep or slept in a senior care (including now)? No 08/07/2023 Housing Stability Vital [...] Comments Blood Pressure 141/85 09/17/2024 4:00 AM AREA PLANT MANAGER Pulse 87 09/17/2024 4:00 AM AREA PLANT MANAGER Temperature 36.9 C (98.5 F) 09/17/2024 1:48 AM AREA PLANT MANAGER Respiratory Rate 13 09/17/2024 4:02 AM AREA PLANT MANAGER Oxygen Saturation 96% 09/17/2024 4:00 AM AREA PLANT MANAGER Inhaled Oxygen Concentration - - Weight 72.6 kg (160 lb) 09/17/2024 1:45 AM AREA PLANT MANAGER Height 180.3 cm (5' 11 ) 09/17/2024 1:45 AM AREA PLANT MANAGER Body Mass Index 22.32 09/17/2024 1:45 AM AREA PLANT MANAGER Procedures * CARDIAC EKG ORDER(Performed 09/19/2024) * [...] * CARDIAC EKG ORDER (09/19/2024 1:44 PM AREA PLANT MANAGER) Only the most recent of8 resultswithin the time period is included. Narrative 09/19/2024 1:44 PM AREA PLANT MANAGER Ordered by an unspecified provider. Scanned Document CARDIAC SERVICES ORD ERABLES * TROPONIN-I HIGH SENSITIVE REFLEX 1HOUR (09/17/2024 2:53 AM AREA PLANT MANAGER) Only the most recent of5 resultswithin the time period is included. [facility] Troponin I High Sensitive 9 <=35 ng/L 09/17/2024 3:38 AM AREA PLANT MANAGER [facility] Delta Troponin I HS 0 <6 ng/L 09/17/2024 3:38 AM AREA PLANT MANAGER [facility] Blood BLOOD SPECIMEN / Unknown Venipuncture / Unknown 09/17/2024 2:53 AM AREA PLANT MANAGER 09/17/2024 2:59 AM AREA PLANT MANAGER Kyree Rossi MD LAB - CHEMISTRY CECIL SANTOS [facility] [address] [place] [address], [facility] [phone] * BLOOD TYPE VERIFICATION (09/17/2024 2:53 AM AREA PLANT MANAGER) [facility] ABO Rh A POS 09/17/2024 3:2 2 AM AREA PLANT MANAGER [facility] Blood Bank BLOOD SPECIMEN / Unknown Venipuncture / Unknown 09/17/2024 2:53 AM AREA PLANT MANAGER 09/17/2024 3:00 AM AREA PLANT MANAGER Kyree Rossi MD LAB - BLOOD BANK ORD MISSY [facility] [address] [place] [address], [facility] [phone] * XR CHEST 2VW (09/17/2024 2:07 AM AREA PLANT MANAGER) Only the most recent of2 resultswithin the time period is included. Anatomical Region Laterality Modality Chest Digital Radiogra phy 09/17/2024 2:08 AM AREA PLANT MANAGER Narrative 09/17/2024 7:55 AM AREA PLANT MANAGER PROCEDURE: XR CHEST 2VW, DATE/TIME OF EXAM: 09/17/2024 2:08 AM, LOCATION [facility] INDICATION: R07.9: Chest pain, unspecified type ADDITIONAL CLINICAL INFORMATION: Ordering Provider Reason For Exam: pna vs other Technologist Note: Additional: COMPARISON: None. FINDINGS/IMPRESSION: No focal consolidation, pleural effusion, or pneumothorax. The cardiomediastinal silhouette is normal. No acute osseous abnormality. > Dictated by Acacia Leal MD (radiology teacher) Mandi Osman MD have personally reviewed and interpreted this examination/study. > Interpreting Provider: Mandi Mccain MD on 09/17/2024 7:55 AM Procedure Note Mandi Mccain MD - 09/17/2024 PROCEDURE: XR CHEST 2VW, DATE/TIME OF EXAM: 09/17/2024 2:08 AM, LOCATION [facility] INDICATION: R07.9: Chest pain, unspecified type ADDITIONAL CLINICAL INFORMATION: Ordering Provider Reason For Exam: pna vs other Technologist Note: Additional: COMPARISON: None. FINDINGS/IMPRESSION: No focal consolidation, pleural effusion, or pneumothorax. The cardiomediastinal silhouette is normal. No acute osseousabnormality. > Dictated by Acacia Leal MD (radiology teacher) Mandi Osman MD have personally reviewed and interpreted this examination/study. > Interpreting Provider: Mandi Mccain MD on 09/17/2024 7:55 AM Kyree Rossi MD DIAGNOSTIC IMAGING O RDERABLES * SARS-COV-2 (COVID-19)+INFLU A+B PCR RAPID (09/17/2024 2:02 AM AREA PLANT MANAGER) COVID-19 PCR Not detected Not detected 09/17/19 2:45 AM AREA PLANT MANAGER [facility] Influenza A Rapid ROSALIND Not Detected Not Detected 09/17/2024 2:45 AM AREA PLANT MANAGER [facility] Influenza B ROSALIND Rapid Not Detected Not Detected 09/17/2024 2:45 AM [facility] Microbiology SPECIMEN FROM NASOPHARYNGEAL STRUCTURE / Unknown Collection / Unknown 09/17/2024 2:02 AM AREA PLANT MANAGER 09/17/2024 2:05 AM AREA PLANT MANAGER Narrative [facility] - 09/17/2024 2:45 AM AREA PLANT MANAGER Influenza assay performed by [employer]. [...] acid amplification assay performance was validated by [facility]. This test has been authorized by [...] Rossi MD LAB - MICROBIOLOGY O RDERABLES [facility] [address] [place] [address], [facility] [phone] * PT-INR [facility] (09/17/2024 1:52 AM AREA PLANT MANAGER) Only the most recent of4 resultswithin the time period is included. PT 13.3 12.1 - 14.8 Seconds 09/17/2024 2:18 AM [facility] INR 1.0 See Comment 09/17/2024 2:18 AM [facility] Comment:The suggested therap eutic range for standard coumadin (warfarin) therapy is an INR of 2.0-3.0. For high-risk patients (Mechanical Mitral Valve Prosthesis, etc.), the suggested prophylactic therapeutic range is an INR of 2.5-3.5. Blood BLOOD SPECIMEN / Unknown Venipuncture / Unknown 09/17/2024 1:52 AM AREA PLANT MANAGER 09/17/2024 1:57 AM AREA PLANT MANAGER Kyree Rossi MD LAB - COAGULATION OR DERABLES Performing Organization Address [facility] Co de Phone Number [address] [address], [facility] [phone] * TROPONIN-I HIGH SENSITIVE BASELINE + 1HR (09/17/2024 1:52 AM AREA PLANT MANAGER) Only the most recent of6 resultswithin the time period is included. Troponin I High Sensitive 9 <=35 ng/L 09/17/2024 2:28 AM [facility] Blood BLOOD SPECIMEN / Unknown Venipuncture / Unknown 09/17/2024 1:52 AM AREA PLANT MANAGER 09/17/2024 1:57 AM AREA PLANT MANAGER Kyree Rossi MD LAB - CHEMISTRY ORDE RABLES Performing Organization Address [facility] Co de Phone Number [address] [address], [place] [phone] * TYPE + SCREEN PANEL (09/17/2024 1:52 AM AREA PLANT MANAGER) Antibody Screen NEG 2:35 AM AREA PLANT MANAGER [facility] ABO Rh A POS 09/17/2024 2:35 AM AREA PLANT MANAGER [facility] Blood Bank BLOOD SPECIMEN / Unknown Venipuncture / Unknown 09/17/2024 1:52 AM AREA PLANT MANAGER 09/17/2024 1:59 AM AREA PLANT MANAGER Kyree Rossi MD LAB - BLOOD BANK ORD ERABLES Performing Organization Address City/[facility]/ZIP Co de Phone Number [facility] [address] [place] [address], [facility] [phone] * (ABNORMAL) CBC W AUTO DIFFERENTIAL (09/17/2024 1:52 AM [facility]) Only the most recent of9 resultswithin the time period is included. WBC 5.1 4.0 - 10.7 x10E9/L 09/17/2024 2:01 AM [facility] RBC Count 4.62 4.30 - 5.80 x10E12/L 09/17/2024 2:01 AM [facility] Hemoglobin 13.2(L) 13.3 - 17.5 g/dL 09/17/2024 2:01 AM [facility] Hematocrit 39.2 38.7 - 51.1 % 09/17/2024 2:01 AM [facility] MCV 84.8 80.0 - 98.0 fL 09/17/2024 2:01 AM [facility] MCH 28.6 26.7 - 33.6 pg 09/17/2024 2:01 AM [facility] MCHC 33.7 31.7 - 36.3 g/dL 09/17/2024 2:01 AM [facility] RDW-CV 13.2 11.3 - 14.8 % 09/17/2024 2:01 AM [facility] Platelet Count 240 150 - 420 x10E9/L 09/17/2024 2:01 AM [facility] MPV 9.6 7.8 - 11.4 fL 09/17/2024 2:01 AM [facility] Neutrophil % 69.4 41.0 - 74.0 % 09/17/2024 2:01 AM [facility] Lymphocyte % 18.1 17.0 - 47.0 % 09/17/2024 2:01 AM [facility] Monocyte % 10.5 3.0 - 11.0 % 09/17/2024 2:01 AM [facility] Eosinophil % 1.4 0.0 - 7.0 % 09/17/2024 2:01 AM [facility] Basophil % 0.4 0.0 - 1.6 % 09/17/2024 2:01 AM [facility] Immature Granulocytes % 0.2 0.0 - 1.0 % 09/17/2024 2:01 AM [facility] Neutrophil Absolute 3.56 1.60 - 7.50 x10E9/L 09/17/2024 2:01 AM [facility] Lymphocyte Absolute 0.93(L) 1.00 - 4.40 x10E9/L 09/17/2024 2:01 AM [facility] Monocyte Absolute 0.54 0.15 - 1.00 x10E9/L 09/17/2024 2:01 AM [facility] Eosinophil Absolute 0.07 0.00 - 0.60 x10E9/L 09/17/2024 2:01 AM [facility] Basophil Absolute 0.02 0.00 - 0.13 x10E9/L 09/17/2024 2:01 AM [facility] Blood BLOOD SPECIMEN / Unknown Venipuncture / Unknown 09/17/2024 1:52 AM AREA PLANT MANAGER 09/17/2024 1:56 AM [facility] Kyree Rossi MD LAB - HEMATOLOGY ORD ERABLES [facility] [address] [place] [address], [facility] [phone] * B-TYPE NATRIURETIC PEPTIDE (09/17/2024 1:52 AM [facility]) Only the most recent of2 resultswithin the time period is included. BNP <10 <100 pg/mL 09/17/2024 2:43 AM [facility] Comment: A decision threshold of 100 [...] Unknown Venipuncture / Unknown 09/17/2024 1:52 AM AREA PLANT MANAGER 09/17/2024 2:09 AM AREA PLANT MANAGER Kyree Rossi MD LAB - CHEMISTRY CECIL SANTOS [facility] Organization Address City/State/ZIP Co de Phone Number [facility] [address] [place] [address], [facility] [phone] * (ABNORMAL) COMPREHENSIVE METABOLIC PANEL (09/17/2024 1:52 AM AREA PLANT MANAGER) Only the most recent of8 resultswithin the time period is included. BUN 8 7 - 26 mg/dL 09/17/2024 2:24 AM [facility] Creatinine 1.03 0.71 - 1.16 mg/dL 09/17/2024 2:24 AM [facility] Sodium 142 136 - 145 mmol/L 09/17/2024 2:24 AM [facility] Potassium 3.8 3.5 - 4.5 mmol/L 09/17/2024 2:24 AM [facility] Chloride 110(H) 98 - 107 mmol/L 09/17/2024 2:24 AM [facility] CO2 23 22 - 29 mmol/L 09/17/2024 2:24 AM [facility] Glucose 128(H) 70 - 99 mg/dL 09/17/2024 2:24 AM [facility] Calcium 8.8 8.4 - 10.2 mg/dL 09/17/2024 2:24 AM [facility] Protein Total 7.0 6.0 - 8.3 g/dL 09/17/2024 2:24 AM [facility] Albumin 3.8 3.4 - 5.0 g/dL 09/17/2024 2:24 AM [facility] Bilirubin Total 0.3 0.2 - 1.2 mg/dL 09/17/2024 2:24 AM [facility] Alkaline Phosphatase 65 40 - 150 U/L 09/17/2024 2:24 AM [facility] ALT 35 5 - 55 U/L 09/17/2024 2:24 AM [facility] AST 29 5 - 34 U/L 09/17/2024 2:24 AM [facility] Anion Gap 9 6 - 16 09/17/2024 2:24 AM [facility] BUN/Creatinine Ratio 8 7 - 23 09/17/2024 2:24 AM [facility] Osmolality Calculated 294 275 - 295 mOsm/kg 09/17/2024 2:24 AM [facility] Albumin/Globulin Ratio 1.2 1.1 - 2.3 09/17/2024 2:24 AM [facility] eGFR by CKD-EPI >90 >=90 mL/min/1.7 3 m2 09/17/2024 2:24 AM [facility] Blood BLOOD SPECIMEN / Unknown Venipuncture / Unknown 09/17/2024 1:52 AM AREA PLANT MANAGER 09/17/2024 1:57 AM [employer]A PLANT MANAGER Kyree Rossi MD LAB - CHEMISTRY CECIL SANTOS Performing Organization Address City/[facility]/ZIP Co de Phone Number [address] [address], [facility] [phone] * MAGNESIUM BLOOD (09/17/2024 1:52 AM AREA PLANT MANAGER) Only the most recent of3 resultswithin the time period is included. Pathologist [facility] Magnesium 1.8 1.6 - 2.6 mg/dL 09/17/2024 2:24 AM [facility] Blood BLOOD SPECIMEN / Unknown Venipuncture / Unknown 09/17/2024 1:52 AM AREA PLANT MANAGER 09/17/2024 1:57 AM [employer]A PLANT MANAGER Kyree Rossi MD LAB - CHEMISTRY CECIL SANTOS Performing Organization Address City/[facility]/ZIP Co de Phone Number [address] [address], [facility] [phone] * EKG 12-LEAD (09/17/2024 1:43 AM AREA PLANT MANAGER) Only the most recent of9 resultswithin the time period is included. Ventricular Rate 80 BPM [facility] MUSE Atrial Rate 80 BPM [facility] MUSE P-R Interval 164 ms [facility] MUSE QRS Duration ms 116 ms [facility] MUSE Q-T Interval ms 356 ms [facility] MUSE QTC Calculation (Bezet) 410 ms SL MUSE Calculated P Tenino 36 degrees [facility]H MUSE Calculated R Tenino 80 degrees SL MUSE Calculated T Tenino 48 degrees [facility] MUSE Interpretation EKG NORMAL SINUS RHYTHM ST ELEVATION CONSIDER ANTEROLATERAL INJURY OR ACUTE INFARCT ST ELEVATION CONSIDER INFERIOR INJURY OR ACUTE INFARCT ACUTE W[place] / STEMI ABNORMAL ECG WHEN COMPARED WITH ECG OF 28-AUG-2023 22:14, T WAVE INVERSION NO LONGER EVIDENT IN INFERIOR LEADS NONSPECIFIC T WAVE ABNORMALITY HAS REPLACED INVERTED T WAVES IN LATERAL LEADS Confirmed by VALERIA PETERSON, TG ([id number]) on 09/23/2024 7:15:26 PM [facility] 09/17/2024 1:43 AM AREA PLANT MANAGER 09/23/2024 7:15 PM AREA PLANT MANAGER Kyree Rossi MD ECG ORDERABLES Performing Organization Address City/[facility]/ZIP Co de Phone Number [facility] * (ABNORMAL) RPR TITER (08/29/2023 12:31 AM AREA PLANT MANAGER) RPR Titer 1:4(A) (none) 08/29/2023 12:37 PM AREA PLANT MANAGER [facility] Blood BLOOD SPECIMEN / Unknown Venipuncture / Unknown 08/29/2023 12:31 AM AREA PLANT MANAGER 08/29/2023 12:33 AM AREA PLANT MANAGER Delmi Jeronimo SCREEN MAKING SUPERVISOR-TRUST ADMINISTRATIVE ASSISTANT LAB - CHEMIS TRY ORDERABLES [facility] [address] [place] [address], [facility] [phone] * (ABNORMAL) SYPHILIS ANTIBODY CASCADING REFLEX (08/29/2023 12:31 AM AREA PLANT MANAGER) Treponema pallidum Antibody REACTIVE( A) Non-react jeff 08/29/2023 1:31 AM AREA PLANT MANAGER [facility] Comment:Additional testing r equired for evaluation of syphilis. An RPR has been reflexively ordered and is in progress. Blood BLOOD SPECIMEN / Unknown Venipuncture / Unknown 08/29/2023 12:31 AM AREA PLANT MANAGER 08/29/2023 12:33 AM AREA PLANT MANAGER Delmi Jeronimo SCREEN MAKING SUPERVISOR-TRUST ADMINISTRATIVE ASSISTANT LAB - SEROLO GY ORDERABLES Performing Organization Address [facility]/ZIP Co de Phone Number [facility] [address] [place] [address], [facility] [phone] * (ABNORMAL) RPR (08/29/2023 12:31 AM AREA PLANT MANAGER) Pathologist [facility] RPR REACTIVE( A) Non Reactive 08/29/2023 12:36 PM AREA PLANT MANAGER [facility] Comment: Treponemal antibodies and non-treponemal antibodies detected. Consistent with current syphilis infection. Clinical evaluation should be performed to identify signs, symptoms, or past history of infection. Blood BLOOD SPECIMEN / Unknown Venipuncture / Unknown 08/29/2023 12:31 AM AREA PLANT MANAGER 08/29/2023 12:33 AM AREA PLANT MANAGER Delmi Jeronimo [facility] LAB - CHEMIS TRY ORDERABLES Performing Organization Address [facility] Co de Phone Number [address] [address], [facility] [phone] * (ABNORMAL) URINE DRUG SCREEN IMMUNOASSAY (08/28/2023 9:59 PM AREA PLANT MANAGER) Only the most recent of2 resultswithin the time period is included. [facility] Amphetamines Screen Urine Negative Negative : < 1000 ng/mL 08/28/2023 10:43 PM AREA PLANT MANAGER [facility] Barbiturates Screen Urine Negative Negative : < 200 ng/mL 08/28/2023 10:43 PM [facility] Benzodiazepine Screen Urine Negative Negative : < 200 ng/mL 08/28/2023 10:43 PM [facility] Opiates Urine Negative Negative : < 300 ng/mL 08/28/2023 10:43 PM [facility] Cocaine Metabolites Urine Negative Negative : < 300 ng/mL 08/28/2023 10:43 PM [facility] Phencyclidine Screen Urine Negative Negative : < 25 ng/ml 08/28/2023 10:43 PM [facility] Cannabinoids Screen Urine Positive(A) Negative : <50 ng/mL 08/28/2023 10:43 PM [facility] Comment:Positive urine canna binoids (THC) screening results should be confirmed by another generally accepted non-immunological method such as gas chromatography or mass spectrometry. Methadone Screen Urine Negative Negative : < 300 ng/mL 08/28/2023 10:43 PM [facility] Fentanyl Screen Urine Negative Negative : <1.5 ng/mL 08/28/2023 10:43 PM [facility] Urine URINE / Unknown Collection / Unknown 08/28/2023 9:59 PM AREA PLANT MANAGER 08/28/2023 10:07 PM [facility] Narrative [facility] - 08/28/2023 10:43 PM AREA PLANT MANAGER The Urine Toxicology Screening Panel does not screen for Propoxyphene, Meprobamate, Carisoprodol, Trazodone, jhvv-ihn-yvjztpr medications and/or volatiles (Acetone, Isopropanol, Methanol or Ethylene Glycol). Ethanol, Salicylate, Acetaminophen, Tricyclic Antidepressants and several therapeutic drugs may be individually assayed in serum or plasma specimen. Toxicology testing by the [facility] is an aid to medical diagnosis and treatment of patients. No documented chain of custody was maintained. Results are intended to be used for clinical purposes only. Delmi Jeronimo [facility] LAB - URINE CHEMISTRY ORDERABLES [facility] [address] [place] [address], [facility] [phone] * (ABNORMAL) TSH REFLEX FREE T4 (08/28/2023 9:57 PM AREA PLANT MANAGER) TSH 0.078(L) 0.350 - 4.940 uIU/mL 08/28/2023 11:01 PM [facility] Blood BLOOD SPECIMEN / Unknown Venipuncture / Unknown 08/28/2023 9:57 PM AREA PLANT MANAGER 08/28/2023 10:13 PM AREA PLANT MANAGER Delmi Jeronimo SCREEN MAKING SUPERVISORWESTOVER [facility] LAB - CHEMIS TRY ORDERABLES Performing Organization Address City/[facility]/ZIP Co de Phone Number [facility] [address] [place] [address], [facility] [phone] * ALCOHOL ETHYL BLOOD (08/28/2023 9:57 PM AREA PLANT MANAGER) Ethanol (mg/dL) <10 <10 mg/dL 10:43 PM AREA PLANT MANAGER [facility] Ethanol Calculated (g/dL) <0.010 <=0.010 g/dL 08/28/2023 10:43 PM AREA PLANT MANAGER [facility] Blood BLOOD SPECIMEN / Unknown Venipuncture / Unknown 08/28/2023 9:57 PM AREA PLANT MANAGER 08/28/2023 10:13 PM AREA PLANT MANAGER Narrative [facility] - 08/28/2023 10:43 PM AREA PLANT MANAGER Ethanol Interp <10: None Detected. Depression of BOOK SHELVER: >100 mg/dl Potentially Critical: >250 mg/dl Potentially Fatal >400 mg/dl Ethanol in the patient's blood will contribute to the osmolar gap. Ethanol's contribution to the osmolar gap can be estimated by dividing the concentration of ethanol in mg/dL by 4.6. This test is for clinical use only and does not equal a PASCUAL for legal purposes. Delmi Jeronimo [facility] [employer] TRY ORDERABLES Performing Organization Address [facility]/ZIP Co de Phone Number [address] [address], [facility] [phone] * T4 FREE (08/28/2023 9:57 PM AREA PLANT MANAGER) T4 Free 0.9 0.7 - 1.5 ng/dL 08/28/2023 11:33 PM AREA PLANT MANAGER [facility] Blood BLOOD SPECIMEN / Unknown Venipuncture / Unknown 08/28/2023 9:57 PM AREA PLANT MANAGER 08/28/2023 10:13 PM AREA PLANT MANAGER Delmi Jeronimo SCREEN MAKING [facility]PER[facility]ORWESTOVER [facility] [employer] TRY ORDERABLES [address] [place] [address], [facility] [phone] * XR CHEST 1 VW PORTABLE [id number] (08/07/2023 3:40 PM AREA PLANT MANAGER) Only the most recent of4 resultswithin the time period is included. Anatomical Region Laterality Modality Chest Computed Radiogr aphy 08/07/2023 4:10 PM AREA PLANT MANAGER Impressions 08/07/2023 4:11 PM AREA PLANT MANAGER IMPRESSION: No acute cardiopulmonary process. > Interpreting Provider: Seth Reed DO on 08/07/2023 4:11 PM Narrative 08/07/2023 4:11 PM AREA PLANT MANAGER PROCEDURE: XR CHEST 1VW PORTABLE Date/Time of [...] DO on 08/07/2023 4:11 PM Nicola Childers SCREEN MAKING SUPERVISOR-TRUST ADMINISTRATIVE ASSISTANT DIAGNOSTIC IMAGING ORDERABLES * TROPONIN-I HIGH SENSITIVE (08/07/2023 3:10 PM AREA PLANT MANAGER) Troponin I High Sensitive 4 <=35 ng/L 08/07/2023 3:47 PM AREA PLANT MANAGER [facility] Blood BLOOD SPECIMEN / Unknown Lab Venipuncture / Unknown 08/07/2023 3:10 PM AREA PLANT MANAGER 08/07/2023 3:18 PM AREA PLANT MANAGER Nicola Childers SCREEN MAKING [facility] LAB - CHEM ISTRY ORDERABLES Performing Organization Address City/[facility]/ZIP Co de Phone Number [facility] [address] * C-REACTIVE PROTEIN (08/07/2023 3:10 PM AREA PLANT MANAGER) Only the most recent of3 resultswithin the time period is included. C-Reactive Protein <0.10 <=0.50 mg/dL 08/07/2023 4:12 PM AREA PLANT MANAGER [facility] Blood BLOOD SPECIMEN / Unknown Lab Venipuncture / Unknown 08/07/2023 3:10 PM AREA PLANT MANAGER 08/07/2023 3:18 PM AREA PLANT MANAGER Nicola Childers [facility] LAB - CHEM ISTRY ORDERABLES Performing Organization Address [facility] de Phone Number [facility] [address] [place] [address] * HEMOGLOBIN A1C (08/07/2023 3:01 PM AREA PLANT MANAGER) Hemoglobin A1c 5.4 4.2 - 5.6 % 08/08/2023 6:09 AM AREA PLANT MANAGER [facility] Estimated Average Glucose 108 mg/dL 08/08/2023 6:09 AM [employer] [facility] Blood BLOOD SPECIMEN / Unknown Lab Venipuncture / Unknown 08/07/2023 3:01 PM [employer] 08/08/2023 5:56 AM [employer] Narrative [facility] - 08/08/2023 6:09 AM [employer] HbA1c Interpretation: Normal: < 5.7% Pre-diabetes: 5.7-6.4% [...] Standardization Program (NGSP) certified method. Trinity Pollard [facility] - CHEMISTRY ORDERABLES [facility] [address] * (ABNORMAL) LIPID PROFILE (08/07/2023 3:01 PM [facility]) [facility] Cholesterol 164 <200 mg/dL 08/08/2023 6:11 AM [facility] Triglycerides 178(H) <150 mg/dL 08/08/2023 6:11 AM [facility] HDL Cholesterol 50 >40 mg/dL 4 6:11 AM [facility] Chol HDL Ratio 3.3 1.0 - 6.0 08/08/2023 6:11 AM [facility] LDL Calculated 78 65 - 130 mg/dL 08/08/2023 6:11 AM [facility] VLDL Calculated 36(H) <=30 mg/dL 4 6:11 AM [facility] [facility] Blood BLOOD SPECIMEN / Unknown Lab Venipuncture / Unknown 08/07/2023 3:01 PM [employer] 08/08/2023 5:56 AM [facility] Narrative [facility] - 08/08/2023 6:11 AM [facility] Lipid Profile Comment: CHOLESTEROL LEVEL..................CLINICAL INTERPRETATION LESS [...] 9.5 ...................... 7.0 3X AVERAGE...................>23........................>11 Trinity Pollard APRN-[facility] LAB - CHEMISTRY ORDERABLES [facility] [address] * ERYTHROCYTE SEDIMENTATION RATE (04/30/2023 9:06 AM CDT) Only the most recent of2 resultswithin the time period is included. Erythrocyte Sedimentation Rate Navid 13 0 - 15 MM/HR 04/30/2023 9:28 AM CDT [facility] Blood BLOOD SPECIMEN / Unknown Venipuncture / Unknown 04/30/2023 9:06 AM CDT 04/30/2023 9:15 AM CDT Neel Hernandez MD LAB - HEMATOLO GY ORDERABLES [facility] [address] [place] [address], [facility] [phone] * (ABNORMAL) BASIC METABOLIC PANEL (CALCIUM TOTAL) (03/13/2023 2:38 AM CDT) Only the most recent of2 resultswithin the time period is included. BUN 14 7 - 26 mg/dL 03/13/2023 3:17 AM [facility] Creatinine 1.18(H) 0.71 - 1.16 mg/dL 03/13/2023 3:17 AM [facility] Sodium 142 136 - 145 mmol/L 03/13/2023 3:17 AM [facility] Potassium 3.6 3.5 - 4.5 mmol/L 03/13/2023 3:17 AM [facility] Chloride 111(H) 98 - 107 mmol/L 03/13/2023 3:17 AM [facility] CO2 21(L) 22 - 29 mmol/L 03/13/2023 3:17 AM [facility] Glucose 172(H) 70 - 115 mg/dL 03/13/2023 3:17 AM [facility] Calcium 9.4 8.4 - 10.2 mg/dL 03/13/2023 3:17 AM [facility] Anion Gap 14 8 - 18 03/13/2023 3:17 AM [facility] BUN/Creatinine Ratio 12 7 - 23 03/13/2023 3:17 AM [facility] Osmolality Calculated 299 270 - 300 mOsm/kg 03/13/2023 3:17 AM [facility] eGFR by CKD-EPI 84(L) >=90 mL/min/1.7 3 m2 03/13/2023 3:17 AM [facility] Blood BLOOD SPECIMEN / Unknown Venipuncture / Unknown 03/13/2023 2:38 AM CDT 03/13/2023 2:47 AM CDT Cash Parker MD LAB - CHEMISTRY ORDERABLES [facility] [address] [place] [address], [facility] [phone] * ECHO COMPLETE (01/11/2023 11:08 AM CDT) BSA 1.0263825 [id number] m2 [facility] CV FUJI PACS LV biplane [...] TR pk joni 217.0 cm/s [facility] I PACS P vein A joni 25.0 [...] FUJI PACS RVIDd 2.8 cm [facility] I PACS RVOT VTI 18.446 cm [facility] I PACS TV S' joni 15.082 [facility] I PACS TAPSE 2.497 1.7 cm [facility] I PACS RVOT pk joni 0.70 m/s [...] grad 2 mmHg [facility] CV FUJI PACS VA pk grad 3 mmHg [facility] CV FU [...] aorta 2.84 cm [facility] CV FUJI PACS VAAHE1XY 8.232 cm [facility] CV [facility]J I PACS UYHJN0SE 9.172 cm [facility] CV [facility]J I PACS Dimensionless Index 0.825 [facility] CV [facility]I PACS LV stroke vol BP 133.696 mL [facility] CV FUJI PACS LVIDs index 1.97 1.3 - 2.1 cm/m2 [facility] LV LVIDd index 2.57 2.2 - 3.0 cm/m2 [facility] CV [facility] Anatomical Region Laterality Modality Ultrasound Narrative [...] Sidney Reeves MD ECHO CUPID * PTT [facility] (01/11/2023 3:00 AM CDT) Only the most recent of2 resultswithin the time period is included. Pathologist [facility] APTT 28.8 23.0 - 38.4 Seconds 01/11/2023 3:43 AM T [facility] Comment:Suggested therapeuti c range for full dose I.V. unfractionated heparin therapy for venous thromboembolism is 71 to 109 seconds. Blood BLOOD SPECIMEN / Unknown Venipuncture / Unknown 01/11/2023 3:00 AM CDT 01/11/2023 3:15 AM CDT Sidney Reeves MD LAB - COAGULATION O RDERABLES [facility] [address] [place] [address], [facility] [phone] * (ABNORMAL) CBC W/O DIFFERENTIAL (01/11/2023 3:00 AM CDT) Pathologist [facility] WBC 6.2 3.5 - 10.5 10 3/uL 01/11/2023 3:25 AM CDT [facility] RBC 4.14(L) 4.30 - 5.70 10 6/uL 01/11/2023 3:25 AM [facility] Hemoglobin 12.3 12.0 - 17.6 g/dL 01/11/2023 3:25 AM T [facility] Hematocrit 37.7 35.2 - 51.7 % 01/11/2023 3:25 AM T [facility] MCV 91.1 80.7 - 98.3 fL 01/11/2023 3:25 AM T [facility] MCH 29.7 26.7 - 34.0 pg 01/11/2023 3:25 AM T [facility] MCHC 32.6 30.8 - 35.9 g/dL 01/11/2023 3:25 AM [facility] RDW-SD 43.0 36.0 - 50.0 fL 01/11/2023 3:25 AM [facility] RDW-CV 13.1 11.2 - 14.8 % 01/11/2023 3:25 AM [facility] Platelet Count 263 150 - 400 10 3/uL 01/11/2023 3:25 AM T [facility] MPV 9.6 9.4 - 12.9 fL 01/11/2023 3:25 AM [facility] nRBC Absolute 0.00 0 10 3/uL 01/11/2023 3:25 AM [facility] nRBC Auto 0.0 0 /100 WBC 01/11/2023 3:25 AM [facility] Blood BLOOD SPECIMEN / Unknown Venipuncture / Unknown 01/11/2023 3:00 AM CDT 01/11/2023 3:14 AM CDT Sidney Reeves MD LAB - HEMATOLOGY OR DERABLES [address] [address], [facility] [phone] * (ABNORMAL) GLUCOSE - POINT OF CARE (06/03/2022 12:10 PM CDT) Glucose WB/POC 279(H) 70 - 115 mg/dL 06/03/2022 5:07 PM CDT [facility] Specimen Type Arterial 06/03/2022 5:07 PM CDT [facility] Blood BLOOD SPECIMEN / Unknown 06/03/2022 12:10 PM CDT 06/03/2022 5:06 PM CDT Provider Unknown LAB - POINT OF CARE ORDERABLES [address] [address] [phone] * MRI CARDIAC STUDY WO CONTRAST (06/03/2022 [...] DATE/TIME OF EXAM: 06/03/2022 8:09 AM, LOCATION [facility] INDICATION: I21.3: ST elevation myocardial infarction (STEMI), unspecified artery (CMS/HCC) I25.9: Chest pain due to myocardial ischemia, unspecified ischemic chest pain type I30.9: Acute pericarditis, unspecified type ADDITIONAL CLINICAL INFORMATION: Ordering Provider Reason For Exam: Myocarditis suspected in patient. EKG, patient had diffuse ST elevations inII, III, aVF, aVL, V1, -[id number] with pericarditis. COMPARISON: None. TECHNIQUE: MRI of [...] DATE/TIME OF EXAM: 06/03/2022 8:09 AM, LOCATION [facility] INDICATION: I21.3: ST elevation myocardial infarction (STEMI), unspecified artery (CMS/HCC) I25.9: Chest pain due to myocardial ischemia, unspecified ischemic chest pain type I30.9: Acute pericarditis, unspecified type ADDITIONAL CLINICAL INFORMATION: Ordering Provider Reason For Exam: Myocarditis suspected in patient.EKG, patient had diffuse ST elevations inII, III, aVF, aVL, V1, -[id number] with pericarditis. COMPARISON: None. TECHNIQUE: MRI of [...] detected Not detected 06/02/2022 6:43 PM CDT [facility]CRO[facility] Chlamydia pneumoniae PCR Not detected Not detected 06/02/2022 6:43 PM CDT [facility] Mycoplasma pneumoniae PCR Not detected Not detected 06/02/2022 6:43 PM CDT [facility] Microbiology SPECIMEN FROM NASOPHARYNGEAL STRUCTURE / Unknown Collection / Unknown 06/02/2022 1:30 PM CDT 06/02/2022 1:34 PM CDT Narrative [facility]CRO[facility] - 06/02/2022 6:43 PM CDT This nucleic amplification assay has received FDA authorization via the [employer]. Neel Hernandez MD LAB - MICROBIO LOGY ORDERABLES [facility] [address] [place] [address], [facility] [phone] * (ABNORMAL) TROPONIN I (06/02/2022 8:02 AM CDT) Only the most recent of3 resultswithin the time period is included. Troponin I 0.228(H) <0.032 ng/mL 06/02/2022 8:42 AM CDT [facility] Blood BLOOD SPECIMEN / Unknown Venipuncture / Unknown 06/02/2022 8:02 AM CDT 06/02/2022 8:11 AM CDT Kyree Rossi MD LAB - CHEMISTRY CECIL SANTOS [facility] [address] [place] [address], [facility] [phone] * LIPASE BLOOD (03/31/2018 12:31 AM CDT) Lipase 118 73 - 393 U/L 03/31/2018 1:51 AM CDT [id number] Blood BLOOD SPECIMEN / Unknown Venipuncture / Unknown 03/31/2018 12:31 AM CDT 03/31/2018 12:36 AM CDT Stefan Montes MD LAB - CHEMISTRY CECIL Browne Organization Address City/State/ZIP Co de Phone Number [id number] [address] [place] [address] Care Teams Industrial Specialist Relationship Specialty Start Date End Date None, Physician PCP - General 09/17/24
--- OUTSIDE RECORDS SUMMARY | 2024-10-09 22:32 | XMS_ITS | CONTINUITY OF CARE DOCUMENT ---
Author Name ed ward Address Unknown Organization [facility] Address [address] [place] [address] Phone [phone] Care Team Providers Care Lasting Machine Operator Hand Method Name Role Phone Cat Choudhary MD Unavailable [phone] Cat Choudhary MD Unavailable PROBLEMS Condition Status Date Provider Notes Acute idiopathic pericarditis active Haritha MTZ Specialist Cardiology examination active Garfield Lucas MD Marijuana use active Garfield Lucas MD ENCOUNTERS Date Type Provider Location Encounter Diag nosis - In-person encounter Office Visit Garfield Lucas MD [place] [facility] Cardiology examinationMarijuana use VITAL SIGNS Date [...] history of marijuana use yes Mckennakaren Zhangmiglia GASOLINE ATTENDANT drug use no Mckenna Ventimig maureen GASOLINE ATTENDANT alcohol use no Mckenna Ventimig maureen GASOLINE ATTENDANT cigarette use yes Stephan Velasco ay smoking status Former smoker Stephan Whitt rday INSURANCE PROVID[employer] Payer name Policy type / Coverage type [place] [employer] party ID [employer] Medicaid [id number] ADVANCE DIRECTIVES Name Date DISCUSSED - NO DECISION MADE TREATMENT PLAN Date Name Performer Cardiology:cessation encouraged Mckenna Zhangmiglia [facility] Cardiology:patient h as had recurrent ER visits for chest pain suggestive of pericarditis as worse with leaning forward and deep inspiration p ain has been refractory to NSAIDs and colchincine We will do echo to look for effusion w ill plan to send order for arcalyst p atient will return in 3 mos or sooner if needed. Mckenna Zhangmiglia [facility] Date Name Complete Echo HISTORY OF PROCEDURES Procedure Date Procedure Name Provider Procedure Notes S tatus EKG Garfield Lucas MD complete d
--- OUTSIDE RECORDS SUMMARY | 2024-10-09 22:32 | XMS_ITS | Referral Summary ---
Author Organization [facility] Address [address] [place] [address] [place] [address] Care Team Providers Care Political Analyst Name Role Phone None, Physician Primary Care Provider Unavailabl e Source Comments [facility],non-owned Affiliates and Associated Physician Practices is amultiple site organization consisting of ambulatory clinics and hospital sitesin [place], [place], [place] and [place]. This disclosure is being madepursuant to the Care Everywhere program and may not contain all information available regarding this patient. Last updated 18.[facility] Encounters Date Type Department Care Team Description 09/17/2024 Travel 09/17/2024 1:40 AM DIRECTOR OF ANALYTICS - 09/17/2024 4:17 AM [facility] Emergency [facility] EMERGENCY DEPARTMENT [address] [place] [id number] Kyree Rossi MD Acute idiopathic pericarditis (HCC) [...] (06/02/2022): Added automatically from request for surgery [id number] ST elevation myocardial infa rction (STEMI), unspecified [...] housing, medical care, and heating? Hard 08/07/2023 [facility] Gaylord of Occupat ional Health - Occupational Stress [...] place to sleep or slept in a usp (including now)? No 08/07/2023 Housing Stability Vital [...] Comments Blood Pressure 141/85 09/17/2024 4:00 AM DIRECTOR OF ANALYTICS Pulse 87 09/17/2024 4:00 AM DIRECTOR OF ANALYTICS Temperature 36.9 C (98.5 F) 09/17/2024 1:48 AM DIRECTOR OF ANALYTICS Respiratory Rate 13 09/17/2024 4:02 AM DIRECTOR OF ANALYTICS Oxygen Saturation 96% 09/17/2024 4:00 AM DIRECTOR OF ANALYTICS Inhaled Oxygen Concentration - - Weight 72.6 kg (160 lb) 09/17/2024 1:45 AM DIRECTOR OF ANALYTICS Height 180.3 cm (5' 11 ) 09/17/2024 1:45 AM DIRECTOR OF ANALYTICS Body Mass Index 22.32 09/17/2024 1:45 AM DIRECTOR OF ANALYTICS Functional Status Functional Status Response Date of [...] CARDIAC EKG ORDER 09/19/2024 1:4 4 PM DIRECTOR OF ANALYTICS BLOOD TYPE VERIFICATION STAT 09/17/2024 2:53 AM DIRECTOR OF ANALYTICS TROPONIN-I HIGH SENSITIVE REFLEX 1HOUR Timed 09/17/2024 2:53 AM DIRECTOR OF ANALYTICS XR CHEST 2VW STAT 09/17/2024 2:07 AM DIRECTOR OF ANALYTICS Chest pain, unspecified type SARS-COV-2 (COVID-19)+INFLU A+B PCR RAPID STAT 09/17/2024 2:02 AM DIRECTOR OF ANALYTICS TYPE + SCREEN PANEL STAT 09/17/2024 1 :52 AM DIRECTOR OF ANALYTICS B-TYPE NATRIURETIC PEPTIDE STAT 09/17/2024 1:52 AM DIRECTOR OF ANALYTICS TROPONIN-I HIGH SENSITIVE BASELINE + 1HR STAT 09/17/2024 1:52 AM DIRECTOR OF ANALYTICS PT-INR [facility] STAT 09/17/2024 1:52 AM DIRECTOR OF ANALYTICS MAGNESIUM BLOOD STAT 09/17/2024 1:52 AM DIRECTOR OF ANALYTICS COMPREHENSIVE METABOLIC PANEL STAT 09/17/2024 1:52 AM DIRECTOR OF ANALYTICS CBC W AUTO DIFFERENTIAL STAT 09/17/2024 1:52 AM DIRECTOR OF ANALYTICS EKG 12-LEAD STAT 09/17/2024 1:43 AM DIRECTOR OF ANALYTICS Chest pain, unspecified type from Last 3 Months Results * CARDIAC EKG ORDER (09/19/2024 1:44 PM DIRECTOR OF ANALYTICS) Narrative 09/19/2024 1:44 PM DIRECTOR OF ANALYTICS Ordered by an unspecified provider. Scanned Document CARDIAC SERVICES ORD ERABLES * TROPONIN-I HIGH SENSITIVE REFLEX 1HOUR (09/17/2024 2:53 AM DIRECTOR OF ANALYTICS) [facility] Troponin I High Sensitive 9 <=35 ng/L 09/17/2024 3:38 AM DIRECTOR OF ANALYTICS [facility] [place] Troponin I HS 0 <6 ng/L 09/17/2024 3:38 AM DIRECTOR OF ANALYTICS [facility] Blood BLOOD SPECIMEN / Unknown Venipuncture / Unknown 09/17/2024 2:53 AM DIRECTOR OF ANALYTICS 09/17/2024 2:59 AM DIRECTOR OF ANALYTICS Kyree Rossi MD LAB - CHEMISTRY CECIL SANTOS [facility] [address] [place] [id number], [facility] [phone] * BLOOD TYPE VERIFICATION (09/17/2024 2:53 AM DIRECTOR OF ANALYTICS) [facility] ABO Rh A POS 09/17/2024 3:2 2 AM DIRECTOR OF ANALYTICS [facility] Blood Bank BLOOD SPECIMEN / Unknown Venipuncture / Unknown 09/17/2024 2:53 AM DIRECTOR OF ANALYTICS 09/17/2024 3:00 AM DIRECTOR OF ANALYTICS Kyree Rossi MD LAB - BLOOD BANK ORD ERATAMIKA [facility] [address] [place] [id number], [place] [phone] * XR CHEST 2VW (09/17/2024 2:07 AM DIRECTOR OF ANALYTICS) Anatomical Region Laterality Modality Chest Digital Radiogra phy 09/17/2024 2:08 AM DIRECTOR OF ANALYTICS Narrative 09/17/2024 7:55 AM DIRECTOR OF ANALYTICS PROCEDURE: XR CHEST 2VW, DATE/TIME OF EXAM: 09/17/2024 2:08 AM, LOCATION [facility] INDICATION: R07.9: Chest pain, unspecified type ADDITIONAL CLINICAL INFORMATION: Ordering Provider Reason For Exam: pna vs other Technologist Note: Additional: COMPARISON: None. FINDINGS/IMPRESSION: No focal consolidation, pleural effusion, or pneumothorax. The cardiomediastinal silhouette is normal. No acute osseous abnormality. > Dictated by Acacia Leal MD (radiology technician) Mandi Osman MD have personally reviewed and interpreted this examination/study. > Interpreting Provider: Mandi Mccain MD on 09/17/2024 7:55 AM Procedure Note Mandi Mccain MD - 09/17/2024 PROCEDURE: XR CHEST 2VW, DATE/TIME OF EXAM: 09/17/2024 2:08 AM, LOCATION [facility] INDICATION: R07.9: Chest pain, unspecified type ADDITIONAL CLINICAL INFORMATION: Ordering Provider Reason For Exam: pna vs other Technologist Note: Additional: COMPARISON: None. FINDINGS/IMPRESSION: No focal consolidation, pleural effusion, or pneumothorax. The cardiomediastinal silhouette is normal. No acute osseousabnormality. > Dictated by Acacia Leal MD (radiology technician) Mandi Osman MD have personally reviewed and interpreted this examination/study. > Interpreting Provider: Mandi Mccain MD on 09/17/2024 7:55 AM Kyree Rossi MD DIAGNOSTIC IMAGING O RDERABLES * SARS-COV-2 (COVID-19)+INFLU A+B PCR RAPID (09/17/2024 2:02 AM DIRECTOR OF ANALYTICS) COVID-19 PCR Not detected Not detected 09/17/19 2:45 AM DIRECTOR OF ANALYTICS [facility] Influenza A Rapid ROSLAIND Not Detected Not Detected 09/17/2024 2:45 AM DIRECTOR OF ANALYTICS [facility] Influenza B ROSALIND Rapid Not Detected Not Detected 09/17/2024 2:45 AM DIRECTOR OF ANALYTICS [facility] Microbiology SPECIMEN FROM NASOPHARYNGEAL STRUCTURE / Unknown Collection / Unknown 09/17/2024 2:02 AM DIRECTOR OF ANALYTICS 09/17/2024 2:05 AM DIRECTOR OF ANALYTICS Narrative [facility] - 09/17/2024 2:45 AM DIRECTOR OF ANALYTICS Influenza assay performed by Nucleic Acid Amplification. [...] acid amplification assay performance was validated by [facility]. This test has been authorized by the [...] Rossi MD LAB - MICROBIOLOGY O RDERABLES [facility] [address] [place] [address], [facility] [phone] * PT-INR [facility] (09/17/2024 1:52 AM DIRECTOR OF ANALYTICS) PT 13.3 12.1 - 14.8 Seconds 09/17/2024 2:18 AM [facility] INR 1.0 See Comment 09/17/2024 2:18 AM [facility] Comment:The suggested therap eutic range for standard coumadin (warfarin) therapy is an INR of 2.0-3.0. For high-risk patients (Mechanical Mitral Valve Prosthesis, etc.), the suggested prophylactic therapeutic range is an INR of 2.5-3.5. Blood BLOOD SPECIMEN / Unknown Venipuncture / Unknown 09/17/2024 1:52 AM DIRECTOR OF ANALYTICS 09/17/2024 1:57 AM DIRECTOR OF ANALYTICS Kyree Rossi MD LAB - COAGULATION OR DERABLES Performing Organization Address [facility]/ZIP Co de Phone Number [address] [address], [facility] [phone] * TROPONIN-I HIGH SENSITIVE BASELINE + 1HR (09/17/2024 1:52 AM DIRECTOR OF ANALYTICS) Troponin I High Sensitive 9 <=35 ng/L 09/17/2024 2:28 AM [facility] Blood BLOOD SPECIMEN / Unknown Venipuncture / Unknown 09/17/2024 1:52 AM DIRECTOR OF ANALYTICS 09/17/2024 1:57 AM DIRECTOR OF ANALYTICS Kyree Rossi MD LAB - CHEMISTRY ORDE RABLES Performing Organization Address [facility] Co de Phone Number [address] [address], [place] [phone] * TYPE + SCREEN PANEL (09/17/2024 1:52 AM DIRECTOR OF ANALYTICS) Antibody Screen NEG 2:35 AM DIRECTOR OF ANALYTICS [facility] ABO Rh A POS 09/17/2024 2:35 AM DIRECTOR OF ANALYTICS [facility] LAB Blood Bank BLOOD SPECIMEN / Unknown Venipuncture / Unknown 09/17/2024 1:52 AM DIRECTOR OF ANALYTICS 09/17/2024 1:59 AM DIRECTOR OF ANALYTICS Kyree Rossi MD LAB - BLOOD BANK ORD ERABLES Performing Organization Address [facility]/ZIP Co de Phone Number [facility] [address] [place] [address], [facility] [phone] * (ABNORMAL) CBC W AUTO DIFFERENTIAL (09/17/2024 1:52 AM [facility]) [facility] Signature WBC 5.1 4.0 - 10.7 x10E9/L 09/17/2024 2:01 AM [facility] RBC Count 4.62 4.30 - 5.80 x10E12/L 09/17/2024 2:01 AM [facility] Hemoglobin 13.2(L) 13.3 - 17.5 g/dL 09/17/2024 2:01 AM [facility] Hematocrit 39.2 38.7 - 51.1 % 09/17/2024 2:01 AM [facility] MCV 84.8 80.0 - 98.0 fL 09/17/2024 2:01 AM [facility] MCH 28.6 26.7 - 33.6 pg 09/17/2024 2:01 AM [facility] MCHC 33.7 31.7 - 36.3 g/dL 09/17/2024 2:01 AM [facility] RDW-CV 13.2 11.3 - 14.8 % 09/17/2024 2:01 AM [facility] Platelet Count 240 150 - 420 x10E9/L 09/17/2024 2:01 AM [facility] MPV 9.6 7.8 - 11.4 fL 09/17/2024 2:01 AM [facility] Neutrophil % 69.4 41.0 - 74.0 % 09/17/2024 2:01 AM [facility] Lymphocyte % 18.1 17.0 - 47.0 % 09/17/2024 2:01 AM [facility] Monocyte % 10.5 3.0 - 11.0 % 09/17/2024 2:01 AM [facility] Eosinophil % 1.4 0.0 - 7.0 % 09/17/2024 2:01 AM [facility] Basophil % 0.4 0.0 - 1.6 % 09/17/2024 2:01 AM [facility] Immature Granulocytes % 0.2 0.0 - 1.0 % 09/17/2024 2:01 AM [facility] Neutrophil Absolute 3.56 1.60 - 7.50 x10E9/L 09/17/2024 2:01 AM [facility] Lymphocyte Absolute 0.93(L) 1.00 - 4.40 x10E9/L 09/17/2024 2:01 AM [facility] Monocyte Absolute 0.54 0.15 - 1.00 x10E9/L 09/17/2024 2:01 AM [facility] Eosinophil Absolute 0.07 0.00 - 0.60 x10E9/L 09/17/2024 2:01 AM [facility] Basophil Absolute 0.02 0.00 - 0.13 x10E9/L 09/17/2024 2:01 AM [facility] Blood BLOOD SPECIMEN / Unknown Venipuncture / Unknown 09/17/2024 1:52 AM [facility] 09/17/2024 1:56 AM [facility] Kyree Rossi MD LAB - HEMATOLOGY ORD ERABLES [facility] [address] [place] [address] [phone] * B-TYPE NATRIURETIC PEPTIDE (09/17/2024 1:52 AM [facility]) BNP <10 <100 pg/mL 09/17/2024 2:43 AM [facility] Comment: A decision threshold of 100 [...] Unknown Venipuncture / Unknown 09/17/2024 1:52 AM DIRECTOR OF ANALYTICS 09/17/2024 2:09 AM DIRECTOR OF ANALYTICS Kyree Rossi MD LAB - CHEMISTRY CECIL SANTOS [facility] [address] [place] [address], [facility] [phone] * (ABNORMAL) COMPREHENSIVE METABOLIC PANEL (09/17/2024 1:52 AM DIRECTOR OF ANALYTICS) BUN 8 7 - 26 mg/dL 09/17/2024 2:24 AM [facility] Creatinine 1.03 0.71 - 1.16 mg/dL 09/17/2024 2:24 AM [facility] Sodium 142 136 - 145 mmol/L 09/17/2024 2:24 AM [facility] Potassium 3.8 3.5 - 4.5 mmol/L 09/17/2024 2:24 AM [facility] Chloride 110(H) 98 - 107 mmol/L 09/17/2024 2:24 AM [facility] CO2 23 22 - 29 mmol/L 09/17/2024 2:24 AM [facility] Glucose 128(H) 70 - 99 mg/dL 09/17/2024 2:24 AM [facility] Calcium 8.8 8.4 - 10.2 mg/dL 09/17/2024 2:24 AM [facility] Protein Total 7.0 6.0 - 8.3 g/dL 09/17/2024 2:24 AM [facility] Albumin 3.8 3.4 - 5.0 g/dL 09/17/2024 2:24 AM [facility] Bilirubin Total 0.3 0.2 - 1.2 mg/dL 09/17/2024 2:24 AM [facility] Alkaline Phosphatase 65 40 - 150 U/L 09/17/2024 2:24 AM [facility] ALT 35 5 - 55 U/L 09/17/2024 2:24 AM [facility] AST 29 5 - 34 U/L 09/17/2024 2:24 AM [facility] Anion Gap 9 6 - 16 09/17/2024 2:24 AM [facility] BUN/Creatinine Ratio 8 7 - 23 09/17/2024 2:24 AM [facility] Osmolality Calculated 294 275 - 295 mOsm/kg 09/17/2024 2:24 AM [facility] Albumin/Globulin Ratio 1.2 1.1 - 2.3 09/17/2024 2:24 AM [facility] eGFR by CKD-EPI >90 >=90 mL/min/1.7 3 m2 09/17/2024 2:24 AM [facility] Blood BLOOD SPECIMEN / Unknown Venipuncture / Unknown 09/17/2024 1:52 AM DIRECTOR OF ANALYTICS 09/17/2024 1:57 AM DIRECTOR OF ANALYTICS Kyree Rossi MD LAB - CHEMISTRY CECIL SANTOS Performing Organization Address [facility]/ZIP Co de Phone Number [address] [address], [facility] [phone] * MAGNESIUM BLOOD (09/17/2024 1:52 AM DIRECTOR OF ANALYTICS) Pathologist [facility] Magnesium 1.8 1.6 - 2.6 mg/dL 09/17/2024 2:24 AM [facility] Blood BLOOD SPECIMEN / Unknown Venipuncture / Unknown 09/17/2024 1:52 AM DIRECTOR OF ANALYTICS 09/17/2024 1:57 AM DIRECTOR OF ANALYTICS Kyree Rossi MD LAB - CHEMISTRY CECIL SANTOS Performing Organization Address [facility]/ZIP Co de Phone Number [address] [address], [facility] [phone] * EKG 12-LEAD (09/17/2024 1:43 AM DIRECTOR OF ANALYTICS) Ventricular Rate 80 BPM [facility] Atrial Rate 80 BPM [facility] P-R Interval 164 ms [facility] QRS Duration ms 116 ms [facility] Q-T Interval ms 356 ms [facility] QTC Calculation (Bezet) 410 ms [facility] Calculated P [place] 36 degrees [facility] Calculated R [place] 80 degrees [facility] M[facility] Calculated T [place] 48 degrees [facility] Interpretation EKG NORMAL SINUS RHYTHM ST ELEVATION CONSIDER ANTEROLATERAL INJURY OR ACUTE INFARCT ST ELEVATION CONSIDER INFERIOR INJURY OR ACUTE INFARCT ACUTE ID / STEMI ABNORMAL ECG WHEN COMPARED WITH ECG OF 28-AUG-2023 22:14, T WAVE INVERSION NO LONGER EVIDENT IN INFERIOR LEADS NONSPECIFIC T WAVE ABNORMALITY HAS REPLACED INVERTED T WAVES IN LATERAL LEADS Confirmed by TG SHAW MD ([id number]) on 09/23/2024 7:15:26 PM [facility] 09/17/2024 1:43 AM DIRECTOR OF ANALYTICS 09/23/2024 7:15 PM DIRECTOR OF ANALYTICS Kyree Rossi MD ECG ORDERABLES [facility] [place] from Last 3 Months Advance Directives * Full Code (Latest Code Status on File) Date Activated Date Inactivated Comments 08/29/2023 6:12 AM 08/29/2023 1:31 PM * Full Code Date Activated Date Inactivated Comments 08/07/2023 11:38 AM 08/10/2023 3:33 PM * Full Code Date Activated Date Inactivated Comments 06/02/2022 4:30 AM 06/03/2022 4:00 PM Care Teams Political Analyst Relationship Specialty Start Date End Date None, Physician PCP - General 2/16/25
[2024-10-09 22:33] LABS: Alanine Aminotransferase 22 U/L (6-50); Albumin Level 4.2 g/dL (3.5-5.1); Alkaline Phosphatase 62 U/L (38-126); Anion Gap 11 mmol/L (4-12); Aspartate Amino Transferase 24 U/L (17-59); Bilirubin,Total 0.2 mg/dL (0.2-1.3); Blood Urea Nitrogen 12 mg/dL (9-20); Calcium 9.2 mg/dL (8.4-10.2); Carbon Dioxide 25 mmol/L (22-30); Chloride 107 mmol/L (98-107); Estimated Glomerular Filt Rate > 60; Glucose 118 mg/dL (65-110); Potassium 3.7 mmol/L (3.4-5.0); Sodium 143 mmol/L (137-145)
--- OUTSIDE RECORDS SUMMARY | 2024-10-09 22:33 | XMS_ITS | Clinical Summary ---
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 Gender Identity Not on file Sexual Orientation Not on file Last Filed Vital Signs Vital Sign Reading Time Taken Comments Blood Pressure 136/87 06/14/2021 8:27 AM ROLLER LEVELER OPERATOR Pulse - - Temperature 36.9 C (98.4 F) 06/14/2021 8:27 AM ROLLER LEVELER OPERATOR Respiratory Rate 18 06/14/2021 8:27 AM ROLLER LEVELER OPERATOR Oxygen Saturation 98% 06/14/2021 8:27 AM ROLLER LEVELER OPERATOR Inhaled Oxygen Concentration - - Weight 69.9 kg (154 lb) 06/14/2021 8:27 AM ROLLER LEVELER OPERATOR Height 15.2 cm (6 ) 06/14/2021 8:27 AM ROLLER LEVELER OPERATOR Body Mass Index 3007.61 06/14/2021 8:27 AM ROLLER LEVELER OPERATOR Plan of Treatment Health Maintenance Due Date Last Done Comments DTAP/TDAP/TD VACCINES (1 - Tdap) 2010 HEPATITIS B VACCINES (1 of 3 - 19+ 3-dose series) 2010 INFLUENZA VACCINE (#1) 2024 HPV VACCINES Aged Out No longer eligi ble based on patient's age to complete this topic [place] [address] MEDICAID
--- OUTSIDE RECORDS SUMMARY | 2024-10-09 22:33 | XMS_ITS | Referral Summary ---
Author Organization [facility] Address [address] [place] [address] Care Team Providers Care [employer] Name Role Phone No, Physician Primary Care Provider [phone] Encounters Date Type Department Care Team Description 09/28/2024 2:49 AM SOLE PAINTER - 10/01/2024 11:55 AM [facility] Hospital Encounter [facility] [address] [place] [phone] Torres Armenta MD L'Ecuyer, Suzanne, MD Svancarek, MD Toy Wilks Rawan Ahmad, MD Suicidal ideation (Primary Dx); Abdominal pain; Adjustment disorders, with mixed anxiety and depressed mood; 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]; Cannabis use disorder, moderate, dependence (CMS/HCC) (HCC) [F12.20]; Pericarditis [I31.9]; Personality disorder, unspecified ([facility]) [F60.9]; Gastroesophageal reflux disease without esophagitis [K21.9] Discharge Disposition: Discharge to home or self care 09/19/2024 5:09 PM SOLE PAINTER - 09/19/2024 5:50 PM [facility] Emergency [facility] Emergency Department [address] [place] [address] Kenny Curran MD Pericarditis (Primary Dx) Discharge Disposition: Discharge to home or self care 09/14/2024 12:06 AM SOLE PAINTER - 09/14/2024 7:08 AM [facility] Emergency [facility] Emergency Department [address] [place] [address] Alexis Santos MD Abdominal pain (Primary Dx) Discharge Disposition: Discharge to home or self care 09/13/2024 [facility]phone [facility] [address] [place] [address] 4th [address] [place] [address] Lara Herrera 09/08/2024 Telephone [facility] [address] [place] [address] 4th [address] [place] [address] Lara Herrera 09/07/2024 1:21 AM [facility] 09/07/2024 6:46 AM [facility] Emergency [facility] Emergency Department [address] [place] [address] Wilmer Muro MD Chest pain, unspecified type [...] 09/30/2024 Assessment & Plan (09/30/2024 9:09 AM SOLE PAINTER): Will try to obtain iron studies I asked SW to help w/ PCP followup Epigastric pain 09/30/2024 Assessment & Plan (09/30/2024 9:17 AM SOLE PAINTER): When asked where his pericarditis pain is, he points to the epigastrium. When I saw him in 11/2023, I had requested an H pylori stool antigen, which we were not able to obtain. -Try again to obtain H pylori antigen (especially w/ history of anemia) Depression 09/29/2024 Assessment & Plan (09/29/2024 1:17 PM SOLE PAINTER): As per psychiatry Will addon a TSH Pericarditis 09/29/2024 Assessment & Plan (09/30/2024 9:10 AM SOLE PAINTER): Currently asymptomatic. Will obtain EKG. Will restart colchicine if symptoms recurs EKG w/ diffuse ST elevation in II, III, aVF, and V1-6, with no MI depression This might also be early repolarization See my notes from 11/16/23 and 11/17/23 for my thought process then He has a financial aid counselor (Dr Rivera, in [place]) with whom he can follow up Routine general medical exam ination at a health care facility 09/29/2024 Assessment & Plan (09/29/2024 1:17 PM SOLE PAINTER): HIV, RPR negative Will recheck here Addon B12, TSH GERD (gastroesophageal reflux disease) Assessment & Plan (09/29/2024 1:18 PM SOLE PAINTER): Hold off PPI for now as he notes no symptoms of acid reflux. Low threshold to restart. The chest pain (when present) he notes is epigastric so that may be a component of GERD Renal lesion 09/29/2024 Assessment & Plan (09/30/2024 9:09 AM SOLE PAINTER): 11/02/23 CT: There are 3 low-attenuation lesions [...] 08/14/23, 11/02/23 w/ diffuse ST elevation, w/ MI depression) and a negative ischemic workup (including [...] 11/16/2023 Assessment & Plan (09/30/2024 9:11 AM SOLE PAINTER): B12 300, same as 11/2023. Will replete [...] 11/16/2023 Assessment & Plan (09/30/2024 9:11 AM SOLE PAINTER): Late latent, appropriately treated. See my 11/15/24 note Assessment & Plan (11/16/2023 1:25 PM CDT): As per my colleague Dr Bynum (see 09/07/23 medicine c/s note): - Has history of Syphilis, treated in 2013 , -Treponema ab + and RPR 1:4 on 08/29/23 when tested at [facility] ED Contacted [facility] ( [place] ) for info To see if titers are coming down , left message with Nurse ( [phone]): Called back received, Patient diagnosed with late latent syphilis at [facility], [place], operated by [facility] in [place] on 10-11 : +RPR titer 1 :256, treponema -EIA positive Completed treatment with benzathine penicillin G x 3 doses given on November 21 2013, November 28 2013 and December 052013 So appropriately treated Lumbar strain, initial encounter 09/16/2023 Anemia 09/08/2023 Assessment & Plan (09/08/2023 8:05 PM SOLE PAINTER): -possible hx of GI bleed in June, [...] disease) Assessment & Plan (09/08/2023 5:10 AM SOLE PAINTER): -continue pepcid Adjustment disorders, with mixed anxiety and dep ressed mood 09/07/2023 Assessment & Plan (09/08/2023 4:53 AM SOLE PAINTER): Per Psychiatry Cannabis use disorder, moderate, dependence 01/2024 Assessment & Plan (09/08/2023 4:53 AM SOLE PAINTER): Per Psychiatry History of syphilis 09/07/2023 Assessment & Plan (09/08/2023 12:28 PM SOLE PAINTER): - Has history of Syphilis, treated in 2013 , -Treponema ab + and RPR 1:4 on 08/29/23 when tested at [facility] ED Contacted [facility] ( [place] ) for info To see if titers are coming down , left message with Nurse ( [phone]): Called back received, Patient diagnosed with late latent syphilis at [facility], [place], operated by [facility] in [place] on 10-11 : +RPR titer 1 :256, [...] recs Assessment & Plan (07/27/2023 10:01 AM SOLE PAINTER): Wes has been struggling for the last 4 years with unstable realtionships, unstable housing, difficulty finding and maintaining employment, and in and out of assisted/fdc/probation. He says that he is sad about [...] Med recs apprec; h/o pericarditis Sw[facility] to [facility] with follow-up and dispo Assessment & Plan (07/26/2023 9:44 AM SOLE PAINTER): Wes has been struggling for the last 4 years with unstable realtionships, unstable housing, difficulty finding and maintaining employment, and in and out of assisted/fdc/probation. He says that he is sad about [...] Med recs apprec; h/o pericarditis [facility] to [facility] with follow-up and dispo Assessment & Plan (07/25/2023 12:24 PM SOLE PAINTER): Wes has been struggling for the last 4 years with unstable realtionships, unstable housing, difficulty finding and maintaining employment, and in and out of assisted/fdc/probation. He says that he is sad about [...] Med recs apprec; h/o pericarditis Swer to [facility] with follow-up and dispo Assessment & [...] was started on Abilify and Depakote in [place], and reports that his visual and auditory hallucinations have resolved. - Start Sertraline 50mg, consider titrating - Obtain further information about the hallucinations - Haldol 5 p.o. or Haldol 5/Ativan 2 IM PRN for agitation - Suicide/elopement/safety precautions - Therapeutic milieu - q15 min safety checks Asthma 05/22/2023 Assessment & Plan (09/29/2024 1:14 PM SOLE PAINTER): Mild. Prn albuterol Assessment & Plan (09/08/2023 5:12 AM SOLE PAINTER): - no PFTs available , currently not in exacerbation, - PRN albuteral Assessment & Plan (07/25/2023 10:37 AM SOLE PAINTER): Intermittent. No symptoms. Uses albuterol prn at [...] 09/07/202310/31 Assessment & Plan (09/08/2023 8:04 PM SOLE PAINTER): - patient has not been able to afford colchicine and reports benefit when getting doses in ED visits - continue colchicine 0.6 mg po BID and monitor for side effects, it should be held if nausea, vomiting, diarrhea -Hold NSAIDS as -he as not tolerated with significant Gi side effects -Patient was seen by Cardiology as outpatient on 09/02/[address] [facility]) and has [...] psychiatry Assessment & Plan (07/25/2023 10:36 AM SOLE PAINTER): Pt w/ hx of depression and anxiety presents w/ SI after grandmother passing. Didn't have intent or plan. Denies SI now -mgt per primary Social History Tobacco Use Types Packs/Day Years Used Date Smoking Tobacco: Former Cigarettes Tobacco Cessation:Counseling Given: Not Answered Alcohol Use Standard Drinks/Week Comments Defer 0 (1 standard drink = 0.6 oz pur e alcohol) [facility] Utilities Answer Date Recorded In the past 12 months has e [employer], gas, oil, or water company threatened to [...] How often do you attend chur or jain services? Never 09/29/2024 Do you belong to any clubs o r organizations such as congregation groups, unions, fraternal or athletic groups, or [...] staff should administer the PHQ-9) 2 09/07/2023 [place] [facility] - Occupational Stress [...] place to sleep or slept in a intermediate (including now)? Yes 10/02/2023 Housing Stability Vital Sign Answer Pavel e Recorded In the last 12 months, was t here a time when you were not able to pay the mortgage or rent on time? No 09/29/2024 Number of Times Moved in the Last Year Not on fi le 09/29/2024 At any time in the past 12 m [facility], were you homeless or living in a intermediate (including now)? No 09/29/2024 Personal Safety Answer [...] on file Legal Sex Male 5:49 PM SOLE PAINTER Gender Identity Not on file Sexual Orientation Not on file Last Filed Vital Signs Vital Sign Reading Time Taken Comments Blood Pressure 161/95 10/01/2024 7:56 AM SOLE PAINTER Pulse 75 10/01/2024 7:56 AM SOLE PAINTER Temperature 37.3 C (99.1 F) 10/01/2024 7:56 AM SOLE PAINTER Respiratory Rate 20 10/01/2024 7:56 AM SOLE PAINTER Oxygen Saturation 97% 10/01/2024 7:56 AM SOLE PAINTER Inhaled Oxygen Concentration - - Weight 72.6 kg (160 lb 1.6 oz) 09/28/2024 2:30 P M SOLE PAINTER Height 177.8 cm (5' 10 ) 09/28/2024 2:30 PM SOLE PAINTER Body Mass Index 22.97 09/28/2024 2:30 PM SOLE PAINTER Functional Status * Are you deaf or [...] GONORRHOEAE/C. TRACHOMATIS AMPLIFICATION Routine 09/30/2024 11:18 AM SOLE PAINTER URINALYSIS, MICROSCOPIC ONLY STAT 09/28/2024 3:44 AM SOLE PAINTER DRUGS OF ABUSE SCREEN, URINE WITHOUT CONFIRMATION STAT 09/28/2024 3:44 AM SOLE PAINTER URINALYSIS AND REFLEX TO MICROSCOPIC STAT 09/28/2024 3:44 AM SOLE PAINTER IRON PROFILE W/ IBC STAT 09/28/2024 3 :15 AM SOLE PAINTER FERRITIN STAT 09/28/2024 3:15 AM SOLE PAINTER TSH STAT 09/28/2024 3:15 AM SOLE PAINTER VITAMIN B12 STAT 09/28/2024 3:15 AM SOLE PAINTER ETHANOL STAT 09/28/2024 3:15 AM SOLE PAINTER LIPID PANEL STAT 09/28/2024 1:27 AM SOLE PAINTER EGFR STAT 09/28/2024 1:27 AM SOLE PAINTER DIFFERENTIAL AUTO STAT 09/28/2024 1:2 7 AM SOLE PAINTER LIPASE STAT 09/28/2024 1:27 AM SOLE PAINTER COMPREHENSIVE METABOLIC PANEL STAT 09/28/2024 1:27 AM SOLE PAINTER CBC WITH AUTO DIFFERENTIAL STAT 09/28/2024 1:27 AM SOLE PAINTER RPR STAT 09/28/2024 1:27 AM SOLE PAINTER HIV 1/2 ANTIBODY PLUS P24 ANTIGEN STAT 09/28/2024 1:27 AM SOLE PAINTER RESPIRATORY PATHOGEN PANEL STAT 09/27/2024 10:38 PM SOLE PAINTER TROPONIN I HIGH-SENSITIVITY 2-HOUR Timed 09/19/2024 5:19 PM SOLE PAINTER XR CHEST PA LATERAL 2 VIEWS ED 09/19/2024 3:06 PM SOLE PAINTER ECG 12-LEAD STAT 09/19/2024 3:00 PM SOLE PAINTER EGFR STAT 09/19/2024 2:56 PM SOLE PAINTER DIFFERENTIAL AUTO STAT 09/19/2024 2:5 6 PM SOLE PAINTER TROPONIN I HIGH-SENSITIVITY SERIES (BASELINE, 2HR, 4HR, 6HR) STAT 09/19/2024 2:56 PM SOLE PAINTER COMPREHENSIVE METABOLIC PANEL STAT 09/19/2024 2:56 PM SOLE PAINTER CBC WITH AUTO DIFFERENTIAL STAT 09/19/2024 2:56 PM SOLE PAINTER EGFR Routine 09/14/2024 4:26 AM SOLE PAINTER LIPASE STAT 09/14/2024 4:26 AM SOLE PAINTER COMPREHENSIVE METABOLIC PANEL Routine 09/14/2024 4:26 AM SOLE PAINTER CBC WITHOUT DIFFERENTIAL Routine 09/14/2024 4:26 AM SOLE PAINTER URINALYSIS, MICROSCOPIC ONLY Routine 09/14/2024 1:16 AM SOLE PAINTER URINALYSIS AND REFLEX TO MICROSCOPIC AND CULTURE Routine 09/14/2024 1:16 AM SOLE PAINTER POCUS CARDIAC 09/07/2024 3:41 AM SOLE PAINTER TROPONIN I HIGH-SENSITIVITY 4-HOUR Timed 09/07/2024 2:19 AM SOLE PAINTER TROPONIN I HIGH-SENSITIVITY 2-HOUR Timed 09/06/2024 10:53 PM SOLE PAINTER ECG 12-LEAD STAT 09/06/2024 9:44 PM SOLE PAINTER EGFR STAT 09/06/2024 9:13 PM SOLE PAINTER DIFFERENTIAL AUTO STAT 09/06/2024 9:1 3 PM SOLE PAINTER TROPONIN I HIGH-SENSITIVITY SERIES (BASELINE, 2HR, 4HR, 6HR) STAT 09/06/2024 9:13 PM SOLE PAINTER COMPREHENSIVE METABOLIC PANEL STAT 09/06/2024 9:13 PM SOLE PAINTER CBC WITH AUTO DIFFERENTIAL STAT 09/06/2024 9:13 PM SOLE PAINTER XR FINGER RIGHT 2 OR MORE VIEWS ED 09/06/2024 8:43 PM SOLE PAINTER XR CHEST PA LATERAL 2 VIEWS ED 09/06/2024 8:43 PM SOLE PAINTER from Last 3 Months Results * N. gonorrhoeae/C. trachomatis Amplification Urine (09/30/2024 11:18 AM SOLE PAINTER) Pathologist [facility] C. trachomatis Not Detected Not Detected [facility] N. gonorrhoeae Not Detected Not Detected [facility] Comment: Interpretive Data This assay detects Chlamydia trachomatis and Neisseria gonorrhoeae by nucleic acid amplification testing (NAAT). This assay has been cleared by the [place] Food and Drug administration. The performance characteristics of this test have been verified by the [facility] Disease laboratory. The performance characteristics of this test have not been evaluated in individuals less than 14 years of age. Current Interpretive Data last revised 2023. Urine (None) 09/30/2024 11:1 8 AM SOLE PAINTER 10/01/2024 2:05 PM SOLE PAINTER us Max Lira MD LAB MICROBIOLOGY - GENERA L ORDERABLES Final Result [facility] [place] [address] [facility] * (ABNORMAL) Urinalysis reflex to microscopic (09/28/2024 3:44 AM SOLE PAINTER) Color, ur Yellow Yellow Clarity, ur Clear Clear [facility] Specific gravity, ur 1.033(H) 1.003 - 1.030 [facility] pH, urine 6.0 [facility] Comment: Interpretive Data U rine pH is affected by diet, medications, systemic acid-base disturbances, and renal tubular function. pH may affect urinary stone formation. For example, urine pH below 6.0 may help reduce the tendency for calcium phosphate stones and pH greater than 6.0 may reduce the tendency for uric acid stone formation. Source: [facility] Current Interpretive Data was last revised on 2017 Protein, ur ql 1+(A) Negative [facility] Glucose, ur ql Negative Negative [facility] Ketones, ur Trace Negative [facility] Bilirubin, ur Negative Negative [facility] Blood, ur 1+(A) Negative [facility] Urobilinogen, ur <2.0 <2.0 mg/dL [facility] Nitrite, ur Negative Negative [facility] Leukocyte esterase, ur Negative Negative [facility] UA reflex comment Reflex to microscopic UA will be performed. [facility] Urine 09/28/2024 3:44 AM SOLE PAINTER 09/28/2024 3:52 AM SOLE PAINTER Torres Armenta MD LAB URINE ORDERABLES Vickie arreola Result [facility] Department [place] [address] * (ABNORMAL) Drugs of Abuse Screen, Urine without Confirmation (09/28/2024 3:44 AM SOLE PAINTER) Pathologist [facility] Amphetamine, ur Not Detected [facility] 500ng/mL Comment: Interpretive Data - Amphetamines: Samples containing greater than 500 ng/mL d-methamphetamine or other cross-reacting amphetamine compounds are reported as positive. Amphetamine immunoassays are subject to significant false positive rates due to cross-reactivity of non-amphetamine drugs. Confirmatory testing required for definitive results. Current Interpretive Data was last reviewed 2023. Barbiturates, ur Not Detected CutOff 200ng/mL [facility] Comment: Interpretive Data - Barbiturates: Samples containing greater than 200 ng/mL secobarbital or other cross-reacting barbiturate compounds are reported as positive. False positive and false negative results are possible. Confirmatory testing required for definitive results. Current Interpretive Data was last reviewed 2023. Benzodiazepines, ur Not Detected CutOff 100ng/mL [facility] Comment: Interpretive Data - Benzodiazepines: Samples containing greater than 100 ng/mL nordiazepam or other cross-reacting compounds are reported as positive. False positive and false negative results are possible. Confirmatory testing required for definitive results. Current Interpretive Data was last reviewed 2023. Cannabinoids, ur Screen Positive, presumptive (A) CutOff 50 ng/mL [facility] Comment: Interpretive Data - Cannabinoids: Samples containing greater than 50 ng/mL delta-9 THC -COOH or other cross- reacting compounds are reported as positive. False positive and false negative results are possible. Confirmatory testing required for definitive results. Current Interpretive Data was last reviewed 2023. Cocaine, ur Not Detected CutOff 150ng/mL [facility] Comment: Interpretive Data - Cocaine: Samples containing greater than 150 ng/mL benzoylecgonine or other cross- reacting compounds are reported as positive. False positive and false negative results are possible. Confirmatory testing required for definitive results. Current Interpretive Data was last reviewed 2023. Fentanyl, Ur Not Detected CutOff 5 ng/mL [facility] Comment: Interpretive Data - Fentanyl: Samples containing greater than 5 ng/mL norfentanyl, fentanyl, or other cross-reacting fentanyl compounds are reported as positive. False positive and false negative results are possible. Confirmatory testing required for definitive results. Current Interpretive Data was last reviewed 2023. Methadone, ur Not Detected CutOff 300ng/mL [facility] Comment: Interpretive Data - Methadone: Samples containing greater than 300 ng/mL d,l-methadone or other cross-reacting compounds are reported as positive. False positive and false negative results are possible. Confirmatory testing required for definitive results. Current Interpretive Data was last reviewed 2023. Opiates, ur Not Detected CutOff 300ng/mL [facility] Comment: Interpretive Data - Opiates: Samples containing greater than 300 ng/mL morphine or other cross-reacting compounds are reported as positive. False positive and false negative results are possible. Confirmatory testing required for definitive results. Current Interpretive Data was last reviewed 2023. Oxycodone, ur Not Detected CutOff 100ng/mL [facility] Comment: Interpretive Data - Oxycodone: Samples containing greater than 100 ng/mL oxycodone or other cross-reacting compounds are reported as positive. False positive and false negative results are possible. Confirmatory testing required for definitive results. Current Interpretive Data was last reviewed 2023. Phencyclidine, ur Not Detected CutOff 25 ng/mL [facility] Comment: Interpretive Data - Phencyclidine: Samples containing greater than 25 ng/mL phencyclidine or other cross-reacting compounds are reported as positive. False positive and false negative results are possible. Confirmatory testing required for definitive results. Current Interpretive Data was last reviewed 2023. Urine Creatinine 460 mg/dL [facility] Comment: Interpretive Data Urine Creatinine: < 10 mg/dL is extremely dilute = or > 10 but < 20 mg/dL is dilute = or > 20 mg/dL is normal Current Interpretive Data was last revised on 2017. Urine 09/28/2024 3:44 AM SOLE PAINTER 09/28/2024 4:00 AM SOLE PAINTER Narrative [facility] - 09/28/2024 4:43 AM SOLE PAINTER Drug of Abuse screening is performed by immunoassay for medical purposes only. This is not to be used for Pain Management purposes. us Molly Haynes MD LAB URINE ORDERABL ES Edited Result - Final [facility] Department [place] [address] * (ABNORMAL) Urinalysis, microscopic only (09/28/2024 3:44 AM SOLE PAINTER) WBC, ur 0-5 0 - 5 /HPF RBC, ur 0-2 0 - 2 /HPF [facility] Bacteria, ur 1+(A) [facility] Yeast, ur TRACE [facility] Mucous, ur Present(A) [facility] Amorphous crystals, ur 1+(A) [facility] Urine 09/28/2024 3:44 AM SOLE PAINTER 09/28/2024 3:52 AM SOLE PAINTER us Torres Armenta MD LAB URINE ORDERABLES Vickie l Result Performing Organization Address City/[facility]/ZIP Co de Phone Number [facility] [place] [address] * Iron profile w/ IBC (09/28/2024 3:15 AM SOLE PAINTER) Iron See Comment 50 - 150 mcg/dL Comment: Credited; Hemolyzed Specimen Telephone report made to: destiny on 09/29/2024 21:39:47 SOLE PAINTER by rxy . TIBC See Comment 250 - 400 mcg/dL [facility] Comment: Credited; Hemolyzed Specimen Telephone report made to: destiny on 09/29/2024 21:39:47 SOLE PAINTER by rxy . Unable to calculate exact result. Transferrin saturation See Comment 20 - 50 % [facility] Comment: Credited; Hemolyzed Specimen Telephone report made to: destiny on 09/29/2024 21:39:47 SOLE PAINTER by rxy . Unable to calculate exact result. Blood 09/28/2024 3:15 AM SOLE PAINTER 09/28/2024 3:25 AM SOLE PAINTER us Destiny Ch MD LAB BLOOD ORDERABLES Final R esult Performing Organization Address City/[facility]/ZIP Co de Phone Number [facility] Department [place] [address] * TSH (09/28/2024 3:15 AM SOLE PAINTER) Thyroid Stimulating Hormone 0.76 0.30 - 4.20 mcIUnit/mL Blood 09/28/2024 3:15 AM SOLE PAINTER 09/28/2024 3:25 AM SOLE PAINTER Destiny Ch MD LAB BLOOD ORDERABLES Final R esult Performing Organization Address [facility] de Phone Number [facility] [place] [address] * Ferritin (09/28/2024 3:15 AM SOLE PAINTER) Pathologist [facility] Ferritin See Comment 30 - 400 ng/mL Comment: Credited; Hemolyzed Specimen Telephone report made to: destiny on 09/29/2024 21:39:02 SOLE PAINTER by RXY . Blood 09/28/2024 3:15 AM SOLE PAINTER 09/28/2024 3:25 AM SOLE PAINTER Destiny Ch MD LAB BLOOD ORDERABLES Final R esult Performing Organization Address [facility] de Phone Number [facility] [place] [address] * Vitamin B12 (09/28/2024 3:15 AM SOLE PAINTER) [facility] Vitamin B12 307 230 - 1,250 pg/mL Blood 09/28/2024 3:15 AM SOLE PAINTER 09/28/2024 3:25 AM SOLE PAINTER Destiny Ch MD LAB BLOOD ORDERABLES Final R esult Performing Organization Address [facility] de Phone Number [facility] [email or web address] [place] [address] * Ethanol (09/28/2024 3:15 AM SOLE PAINTER) [facility] Ethanol <10 <=10 mg/dL Comment: Hemolyzed; result may be falsely decreased Interpretive Data Legal limit of intoxication > or = 80 mg/dL Levels > or = 400 mg/dL are potentially TOXIC. Current interpretive data was last revised on 2018. Blood 09/28/2024 3:15 AM SOLE PAINTER 09/28/2024 3:25 AM SOLE PAINTER us Molly Haynes MD LAB BLOOD ORDERABL ES Final Result Performing Organization Address [facility] Co de Phone Number [facility] [place] [address] * eGFR (09/28/2024 1:27 AM SOLE PAINTER) eGFR 80 >=60 mL/min/1. 73 m2 Comment: [...] last reviewed 2021. Blood 09/28/2024 1:27 AM SOLE PAINTER 09/28/2024 1:45 AM SOLE PAINTER us Torres Armenta MD LAB BLOOD ORDERABLES Vickie l Result Performing Organization Address City/[facility]/ZIP Co de Phone Number [facility] [place] [address] * (ABNORMAL) Differential, auto (09/28/2024 1:27 AM SOLE PAINTER) Neutrophil abs 5.7 1.5 - 6.5 K/cumm Imm gran abs 0.0 0.0 - 0.1 K/cumm [facility] Lymphocyte abs 1.8 0.8 - 3.3 K/cumm [facility] Monocyte abs 1.0(H) 0.2 - 0.8 K/cumm [facility] Eosinophil abs 0.1 0.0 - 0.5 K/cumm [facility] Basophil abs 0.0 0.0 - 0.1 K/cumm [facility] Neutrophil pct 65.2 % [facility] Comment: Interpretive Data Percent cell count reference ranges are not reported, since discordance with absolute values may lead to misinterpretation of CBC data. Current Interpretive Data was last revised on 2017. Imm gran pct 0.5 % [facility] Comment: Interpretive Data Percent cell count reference ranges are not reported, since discordance with absolute values may lead to misinterpretation of CBC data. Current Interpretive Data was last revised on 2017. Lymphocyte pct 21.2 % [facility] Comment: Interpretive Data Percent cell count reference ranges are not reported, since discordance with absolute values may lead to misinterpretation of CBC data. Current Interpretive Data was last revised on 2017. Monocyte pct 11.6 % [facility] Comment: Interpretive Data Percent cell count reference ranges are not reported, since discordance with absolute values may lead to misinterpretation of CBC data. Current Interpretive Data was last revised on 2017. Eosinophil pct 1.4 % [facility] Comment: Interpretive Data Percent cell count reference ranges are not reported, since discordance with absolute values may lead to misinterpretation of CBC data. Current Interpretive Data was last revised on 2017. Basophil pct 0.1 % [facility] Comment: Interpretive Data Percent cell count reference ranges are not reported, since discordance with absolute values may lead to misinterpretation of CBC data. Current Interpretive Data was last revised on 2017. Blood 09/28/2024 1:27 AM SOLE PAINTER 09/28/2024 1:45 AM SOLE PAINTER us Torres Armenta MD LAB BLOOD ORDERABLES Vickie arreola Result [facility] [place] [address] * HIV 1/2 Antibody plus p24 Antigen Blood (09/28/2024 1:27 AM SOLE PAINTER) [facility] HIV 1/2 ab + p24 ag Nonreactive Nonreactive Comment:Nonreactive for HIV- 1 antigen and HIV-1/HIV-2 antibodies. No laboratory evidence of HIV infection. If acute HIV infection is suspected, consider testing for HIV-1 RNA. Current interpretive data was last revised on 22. Blood 09/28/2024 1:27 AM SOLE PAINTER 09/28/2024 1:45 AM SOLE PAINTER us Destiny Ch MD LAB MICROBIOLOGY - GENERAL O RDERABLES Final Result [facility] [place] [address] * CBC with auto differential (09/28/2024 1:27 AM SOLE PAINTER) [facility] WBC 8.7 3.8 - 9.9 K/cumm Hgb 13.9 13.0 - 17.5 g/dL [facility] Hct 42.6 38.9 - 50.3 % [facility] Plt 270 150 - 400 K/cumm [facility] MPV 10.0 9.1 - 12.3 fL [facility] RBC 4.87 4.30 - 5.80 M/cumm [facility] MCV 87.5 81.3 - 96.4 fL [facility] MCH 28.5 27.1 - 33.3 pg [facility] MCHC 32.6 32.3 - 35.7 g/dL [facility] RDW CV 13.2 11.1 - 14.9 % [facility] RDW SD 42.5 35.7 - 48.1 fL [facility] NRBC abs 0.00 0.00 - 0.01 K/cumm [facility] Blood Venous blood specimen / Unknown 09/28/2024 1:27 AM SOLE PAINTER 09/28/2024 1:45 AM SOLE PAINTER us Torres Armenta MD LAB BLOOD ORDERABLES Vickie l Result Performing Organization Address City/[facility] Co de Phone Number [facility] [place] [address] * RPR Blood (09/28/2024 1:27 AM SOLE PAINTER) RPR Nonreactive Nonreactive Blood 09/28/2024 1:27 AM SOLE PAINTER 09/28/2024 1:50 AM SOLE PAINTER us Destiny Ch MD LAB MICROBIOLOGY - GENERAL O RDERABLES Final Result Performing Organization Address [facility] Co de Phone Number [facility] [place] [address] * Lipase (09/28/2024 1:27 AM SOLE PAINTER) Lipase 27 10 - 99 Units/L Blood Venous blood specimen / Unknown 09/28/2024 1:27 AM SOLE PAINTER 09/28/2024 1:45 AM SOLE PAINTER us Torres Armenta MD LAB BLOOD ORDERABLES Vickie l Result Performing Organization Address [facility] de Phone Number [facility] [place] [address] * Lipid panel (09/28/2024 1:27 AM SOLE PAINTER) Cholesterol 163 30 - 199 mg/dL Comment: [...] revised on 2018. Triglycerides 75 <=149 mg/dL [facility] Comment: Interpretive Data Ages < or [...] revised on 2018. HDL 57 >=40 mg/dL [facility] Comment: Interpretive Data Ages < or [...] on 2018. LDL, calculated 92 <=129 mg/dL [facility] Comment: Interpretive Data Ages < or [...] Patton et al. REVA Cardiol. 2020 November 30;5(5):540-545. doi: [email or web address] Current Interpretive Data was last revised on 2024. Non-HDL Cholesterol 106 mg/dL [facility] Comment: Interpretive Data Ages < or [...] last revised on 2018. Chol/HDL ratio 3 [facility] Blood 09/28/2024 1:27 AM SOLE PAINTER 09/28/2024 1:45 AM SOLE PAINTER Destiny Ch MD LAB BLOOD ORDERABLES Final R esult [facility] [place] [address] * Comprehensive metabolic panel (09/28/2024 1:27 AM SOLE PAINTER) Sodium 143 135 - 145 mmol/L Potassium, pl 4.6 3.3 - 4.9 mmol/L [facility] Chloride 106 97 - 110 mmol/L [facility] CO2 29 22 - 32 mmol/L [facility] Anion gap 8 2 - 15 mmol/L [facility] BUN 10 6 - 25 mg/dL [facility] Creatinine 1.22 0.80 - 1.30 mg/dL [facility] Glucose 100 70 - 199 mg/dL [facility] Comment: Interpretive Data Fasting glucose >/= [...] 2022. Calcium 9.7 8.5 - 10.3 mg/dL [facility] Bilirubin, total 0.2 0.1 - 1.2 mg/dL [facility] Protein, pl 7.7 6.5 - 8.5 g/dL [facility] Albumin 3.9 3.5 - 5.0 g/dL [facility] Alk phos 74 40 - 130 Units/L [facility] ALT 22 7 - 55 Units/L [facility] AST 24 10 - 50 Units/L [facility] Blood 09/28/2024 1:27 AM SOLE PAINTER 09/28/2024 1:45 AM SOLE PAINTER Torres Armenta MD LAB BLOOD ORDERABLES Vickie arreola Result Performing Organization Address City/State/[facility] Co de Phone Number [facility] [place] [address] * Respiratory pathogen panel Nasopharyngeal (09/27/2024 10:38 PM SOLE PAINTER) Pathologist [facility] Influenza A RNA Not Detected Not Detected Influenza B RNA Not Detected Not Detected [facility] RSV RNA Not Detected Not Detected [facility] COVID-19 RNA Not Detected Not Detected [facility] Coronavirus 229E RNA Not Detected Not Detected [facility] Coronavirus HKU1 RNA Not Detected Not Detected [facility] Coronavirus NL63 RNA Not Detected Not Detected [facility] Coronavirus OC43 RNA Not Detected Not Detected [facility] Adenovirus DNA Not Detected Not Detected [facility] Metapneumovirus RNA Not Detected Not Detected [facility] Rhinovirus/Enterov irus RNA Not Detected Not Detected [facility] Parainfluenza 1 RNA Not Detected Not Detected [facility] Parainfluenza 2 RNA Not Detected Not Detected [facility] Parainfluenza 3 RNA Not Detected Not Detected [facility] Parainfluenza 4 RNA Not Detected Not Detected [facility] B. pertussis DNA Not Detected Not Detected [facility] B. parapertussis DNA Not Detected Not Detected [facility] C. pneumoniae DNA Not Detected Not Detected [facility] M. pneumoniae DNA Not Detected Not Detected [facility] Nasopharyngeal 09/27/2024 10 :38 PM SOLE PAINTER 09/28/2024 1:00 AM SOLE PAINTER Narrative [facility] - 09/28/2024 2:21 AM SOLE PAINTER Is the Patient experiencing symptoms consistent with COVID?->Yes Surveillance testing for transplant patient?->No Interpretive Data The [employer] FilmArray Respiratory Panel (RP2.1) assay is a [...] assay has FDA clearance for testing of CON[employer]ER LOAN MANAGER swabs. The performance of additional specimen types has been assessed by the performing laboratory. The performance characteristics of this assay have been determined by [facility] Infectious Disease [facility]. Current interpretive data was last revised on 22. us Torres Armenta MD LAB MICROBIOLOGY - GENERA L ORDERABLES Final Result Performing Organization Address [facility] Co de Phone Number [facility] [place] [address] * Troponin I high-sensitivity 2-hour (09/19/2024 5:19 PM SOLE PAINTER) Trop I hs 8 <=35 ng/L Comment: Interpretive Data For further hscTnI resources including the diagnostic algorithm and an aid in interpretation, copy and paste this link: https://bjhlab.testcatalog.org/show/hsTrop-1 Current Interpretive Data last revised 2020. Trop I hs delta 1 ng/L [facility] Trop I hs interp Insignificant [facility] Blood 09/19/2024 5:19 PM SOLE PAINTER 09/19/2024 5:36 PM SOLE PAINTER us Ole Kay MD LAB BLOOD ORDERABLES Final Result Performing Organization Address [facility] Co de Phone Number [facility] [place] [address] * XR Chest Pa Lateral 2 Views (09/19/2024 3:06 PM SOLE PAINTER) Anatomical Region Laterality Modality Body, Chest N/A Computed Radiogr aphy 09/19/2024 3:41 PM SOLE PAINTER Impressions 09/19/2024 4:08 PM SOLE PAINTER Comparison with chest radiograph dated 09/06/2024. No pulmonary consolidation, pleural effusion, or pneumothorax. Cardiomediastinal silhouette is normal. Dictated by: Kolby Garvey M.D. The radiology attending physician has personally reviewed this study, and had reviewed and/or edited this written report and agrees with it. Electronically signed by: Rory Castellano M.D. Narrative 09/19/2024 4:08 PM SOLE PAINTER EXAMINATION: 2 view chest radiograph Procedure Note [...] * (ABNORMAL) ECG 12-LEAD (09/19/2024 3:00 PM SOLE PAINTER) Narrative [facility] - 09/19/2024 3:00 PM SOLE PAINTER Irina Yeager MD 09/19/2024 3:01 PM ECG [...] in V2, v3,v4,v5,v6, avf, II, III With MI depression in avF, I,II, v4, v5. Similar [...] in V2, v3,v4,v5,v6, avf, II, III With MI depression in avF, I,II, v4, v5. Similar to prior EKG on 12/05/23. Acute pericarditis concern Irina Yeager MD 09/19/24 1501 us Kenny Curran MD ECG ORDERABLES Final R esult [facility] * Troponin I high-sensitivity series (baseline, 2hr, 4hr, 6hr) (09/19/2024 2:56 PM SOLE PAINTER) Pathologist [facility] Trop I hs 7 <=35 ng/L Comment: Interpretive Data For further hscTnI resources including the diagnostic algorithm and an aid in interpretation, copy and paste this link: https://bjhlab.testcatalog.org/show/hsTrop-1 Current Interpretive Data last revised 2020. Blood 09/19/2024 2:56 PM SOLE PAINTER 09/19/2024 3:25 PM SOLE PAINTER us Kenny Curran MD LAB BLOOD ORDERABLES Fi nal Result [facility] [place] [address] * eGFR (09/19/2024 2:56 PM SOLE PAINTER) Pathologist [facility] eGFR >90 >=60 mL/min/1. 73 m2 Comment: [...] last reviewed 2021. Blood 09/19/2024 2:56 PM SOLE PAINTER 09/19/2024 3:25 PM SOLE PAINTER us Kenny Curran MD LAB BLOOD ORDERABLES [facility] Result [facility] [place] [address] * Differential, auto (09/19/2024 2:56 PM SOLE PAINTER) Neutrophil abs 2.5 1.5 - 6.5 K/cumm Imm gran abs 0.0 0.0 - 0.1 K/cumm [facility] Lymphocyte abs 1.7 0.8 - 3.3 K/cumm [facility] Monocyte abs 0.5 0.2 - 0.8 K/cumm [facility] Eosinophil abs 0.1 0.0 - 0.5 K/cumm [facility] Basophil abs 0.0 0.0 - 0.1 K/cumm [facility] Neutrophil pct 50.3 % [facility] Comment: Interpretive Data Percent cell count reference ranges are not reported, since discordance with absolute values may lead to misinterpretation of CBC data. Current Interpretive Data was last revised on 2017. Imm gran pct 0.2 % [facility] Comment: Interpretive Data Percent cell count reference ranges are not reported, since discordance with absolute values may lead to misinterpretation of CBC data. Current Interpretive Data was last revised on 2017. Lymphocyte pct 35.7 % [facility] Comment: Interpretive Data Percent cell count reference ranges are not reported, since discordance with absolute values may lead to misinterpretation of CBC data. Current Interpretive Data was last revised on 2017. Monocyte pct 10.7 % [facility] Comment: Interpretive Data Percent cell count reference ranges are not reported, since discordance with absolute values may lead to misinterpretation of CBC data. Current Interpretive Data was last revised on 2017. Eosinophil pct 2.5 % [facility] Comment: Interpretive Data Percent cell count reference ranges are not reported, since discordance with absolute values may lead to misinterpretation of CBC data. Current Interpretive Data was last revised on 2017. Basophil pct 0.6 % [facility] Comment: Interpretive Data Percent cell count reference ranges are not reported, since discordance with absolute values may lead to misinterpretation of CBC data. Current Interpretive Data was last revised on 2017. Blood 09/19/2024 2:56 PM SOLE PAINTER 09/19/2024 3:25 PM SOLE PAINTER us Kenny Curran MD LAB BLOOD ORDERABLES nal Result [facility] [place] [address] * (ABNORMAL) CBC with auto differential (09/19/2024 2:56 PM SOLE PAINTER) WBC 4.9 3.8 - 9.9 K/cumm Hgb 12.8(L) 13.0 - 17.5 g/dL [facility] Hct 40.5 38.9 - 50.3 % [facility] Plt 271 150 - 400 K/cumm [facility] MPV 9.7 9.1 - 12.3 fL [facility] RBC 4.63 4.30 - 5.80 M/cumm [facility] MCV 87.5 81.3 - 96.4 fL [facility] MCH 27.6 27.1 - 33.3 pg [facility] MCHC 31.6(L) 32.3 - 35.7 g/dL [facility] RDW CV 13.2 11.1 - 14.9 % [facility] RDW SD 41.6 35.7 - 48.1 fL [facility] NRBC abs 0.02(H) 0.00 - 0.01 K/cumm [facility] Blood Venous blood specimen / Unknown 09/19/2024 2:56 PM SOLE PAINTER 09/19/2024 3:25 PM SOLE PAINTER us Kenny Curran MD LAB BLOOD ORDERABLES Fi nal Result [facility] [place] [address] * Comprehensive metabolic panel (09/19/2024 2:56 PM SOLE PAINTER) Sodium 141 135 - 145 mmol/L Potassium, pl 3.9 3.3 - 4.9 mmol/L [facility] Chloride 106 97 - 110 mmol/L [facility] CO2 26 22 - 32 mmol/L [facility] Anion gap 9 2 - 15 mmol/L [facility] BUN 6 6 - 25 mg/dL [facility] Creatinine 1.00 0.80 - 1.30 mg/dL [facility] Glucose 93 70 - 199 mg/dL [facility] Comment: Interpretive Data Fasting glucose >/= [...] 2022. Calcium 9.1 8.5 - 10.3 mg/dL [facility] Bilirubin, total 0.2 0.1 - 1.2 mg/dL [facility] Protein, pl 7.1 6.5 - 8.5 g/dL [facility] Albumin 4.2 3.5 - 5.0 g/dL [facility] Alk phos 69 40 - 130 Units/L [facility] ALT 32 7 - 55 Units/L [facility] AST 22 10 - 50 Units/L [facility] Blood 09/19/2024 2:56 PM SOLE PAINTER 09/19/2024 3:25 PM SOLE PAINTER us Kenny Curran MD LAB BLOOD ORDERABLES Fi nal Result Performing Organization Address City/[facility]/ZIP Co de Phone Number [facility] [place] [email or web address] [address] * eGFR (09/14/2024 4:26 AM SOLE PAINTER) eGFR >90 >=60 mL/min/1. 73 m2 Comment: [...] last reviewed 2021. Blood 09/14/2024 4:26 AM SOLE PAINTER 09/14/2024 4:45 AM SOLE PAINTER us Qi Cherry MD LAB BLOOD ORDERABLES Final R esult Performing Organization Address City/[facility]/ZIP Co de Phone Number [facility] Department [email or web address] [place] [address] * (ABNORMAL) CBC without differential (09/14/2024 4:26 AM SOLE PAINTER) [facility] WBC 6.1 3.8 - 9.9 K/cumm Hgb 12.0(L) 13.0 - 17.5 g/dL [facility] Hct 37.2(L) 38.9 - 50.3 % [facility] Plt 218 150 - 400 K/cumm [facility] MPV 10.0 9.1 - 12.3 fL [facility] RBC 4.28(L) 4.30 - 5.80 M/cumm [facility] MCV 86.9 81.3 - 96.4 fL [facility] MCH 28.0 27.1 - 33.3 pg [facility] MCHC 32.3 32.3 - 35.7 g/dL [facility] RDW CV 13.2 11.1 - 14.9 % [facility] RDW SD 41.2 35.7 - 48.1 fL [facility] NRBC abs 0.00 0.00 - 0.01 K/cumm [facility] Blood 09/14/2024 4:26 AM SOLE PAINTER 09/14/2024 4:45 AM SOLE PAINTER Qi Cherry MD LAB BLOOD ORDERABLES Final R esult Performing Organization Address City/[facility] Co de Phone Number [facility] [place] [address] * Lipase (09/14/2024 4:26 AM SOLE PAINTER) [facility] Lipase 39 10 - 99 Units/L Blood 09/14/2024 4:26 AM SOLE PAINTER 09/14/2024 4:45 AM SOLE PAINTER Qi Cherry MD LAB BLOOD ORDERABLES Final R esult [facility] [place] [address] * (ABNORMAL) Comprehensive metabolic panel (09/14/2024 4:26 AM SOLE PAINTER) Sodium 142 135 - 145 mmol/L Potassium, pl 4.4 3.3 - 4.9 mmol/L [facility] Chloride 108 97 - 110 mmol/L [facility] CO2 27 22 - 32 mmol/L [facility] Anion gap 7 2 - 15 mmol/L [facility] BUN 12 6 - 25 mg/dL [facility] Creatinine 1.08 0.80 - 1.30 mg/dL [facility] Glucose 110 70 - 199 mg/dL [facility] Comment: Interpretive Data Fasting glucose >/= [...] 2022. Calcium 8.4(L) 8.5 - 10.3 mg/dL [facility] Bilirubin, total <0.2 0.1 - 1.2 mg/dL [facility] Protein, pl 6.1(L) 6.5 - 8.5 g/dL [facility] Albumin 3.4(L) 3.5 - 5.0 g/dL [facility] Alk phos 65 40 - 130 Units/L [facility] ALT 27 7 - 55 Units/L [facility] AST 25 10 - 50 Units/L [facility] Blood 09/14/2024 4:26 AM SOLE PAINTER 09/14/2024 4:45 AM SOLE PAINTER us Qi Cherry MD LAB BLOOD ORDERABLES Final R esult [facility] [place] [address] * (ABNORMAL) Urinalysis reflex to microscopic and culture Urine (09/14/2024 1:16 AM SOLE PAINTER) Color, ur Yellow Yellow Clarity, ur Clear Clear [facility] Specific gravity, ur 1.031(H) 1.003 - 1.030 [facility] pH, urine 6.5 [facility] Comment: Interpretive Data U rine pH is affected by diet, medications, systemic acid-base disturbances, and renal tubular function. pH may affect urinary stone formation. For example, urine pH below 6.0 may help reduce the tendency for calcium phosphate stones and pH greater than 6.0 may reduce the tendency for uric acid stone formation. Source: [facility] [email or web address] Current Interpretive Data was last revised on 2017 Protein, ur ql 1+(A) Negative [facility] Glucose, ur ql Negative Negative [facility] Ketones, ur Negative Negative [facility] Bilirubin, ur Negative Negative [facility] Blood, ur 1+(A) Negative [facility] Urobilinogen, ur <2.0 <2.0 mg/dL [facility] Nitrite, ur Negative Negative [facility] Leukocyte esterase, ur Negative Negative [facility] UA reflex comment Reflex to microscopic UA will be performed. [facility] Urine 09/14/2024 1:16 AM SOLE PAINTER 09/14/2024 1:25 AM SOLE PAINTER us Qi Cherry MD LAB MICROBIOLOGY - GENERAL O RDERABLES Final Result [facility] [place] [address] * (ABNORMAL) Urinalysis, microscopic only (09/14/2024 1:16 AM SOLE PAINTER) WBC, ur 0-5 0 - 5 /HPF RBC, ur 11-20(A) 0 - 2 /HPF [facility] Bacteria, ur Trace(A) [facility] Mucous, ur Present(A) [facility] Hyaline casts, ur 1-5 0 - 10 /LPF [facility] Culture Reflex Comment Reflex conditions for urine culture (WBC >10) not met. [facility] Urine 09/14/2024 1:16 AM SOLE PAINTER 09/14/2024 1:25 AM SOLE PAINTER us Qi Cherry MD LAB URINE ORDERABLES Final R esult [facility] [place] [address] * POCUS Cardiac (09/07/2024 3:41 AM SOLE PAINTER) Anatomical Region Laterality Modality Other 09/07/2024 2:37 AM SOLE PAINTER Narrative 09/07/2024 5:32 AM SOLE PAINTER Performed by: Kolby Dominguez Cardiac: Exam type: [...] Troponin I high-sensitivity 4-hour (09/07/2024 2:19 AM SOLE PAINTER) Trop I hs 12 <=35 ng/L Comment: Interpretive Data For further hscTnI resources including the diagnostic algorithm and an aid in interpretation, copy and paste this link: [email or web address]/show/[email or web address] Current Interpretive Data last revised 2020. Trop I hs delta See Comment ng/L [facility] Comment:Inappropriate collec tion time to report a delta. Trop I hs pct delta See Comment % [facility] Comment:Inappropriate collec tion time to report a delta. Trop I hs interp See Comment [facility] Comment:Inappropriate collec tion time to report a delta. Blood 09/07/2024 2:19 AM SOLE PAINTER 09/07/2024 2:40 AM SOLE PAINTER Florida Yang MD LAB BLOOD ORDERABLES Final R esult Performing Organization Address [facility] Co de Phone Number [facility] [place] [address] * Troponin I high-sensitivity 2-hour (09/06/2024 10:53 PM SOLE PAINTER) Trop I hs 12 <=35 ng/L Comment: Interpretive Data For further hscTnI resources including the diagnostic algorithm and an aid in interpretation, copy and paste this link: [email or web address]/show/[email or web address] Current Interpretive Data last revised 2020. Trop I hs delta 0 ng/L [facility] Trop I hs interp Insignificant [facility] Blood 09/06/2024 10:5 3 PM SOLE PAINTER 09/06/2024 11:08 PM SOLE PAINTER Florida Yang MD LAB BLOOD ORDERABLES Final R esult [facility] [place] [address] * ECG 12-LEAD (09/06/2024 9:44 PM SOLE PAINTER) Narrative [facility] - 09/06/2024 9:44 PM SOLE PAINTER Heriberto Herrera MD 09/06/2024 9:45 PM ECG [...] Wilmer Muro MD ECG ORDERABLES Final Result [facility] * Troponin I high-sensitivity series (baseline, 2hr, 4hr, 6hr) (09/06/2024 9:13 PM SOLE PAINTER) Trop I hs 12 <=35 ng/L Comment: Interpretive Data For further hscTnI resources including the diagnostic algorithm and an aid in interpretation, copy and paste this link: [email or web address]/show/[email or web address] Current Interpretive Data last revised 2020. Blood 09/06/2024 9:13 PM SOLE PAINTER 09/06/2024 9:55 PM SOLE PAINTER us Wilmer Muro MD LAB BLOOD ORDERABLES Final Re sult [facility] [place] [address] * eGFR (09/06/2024 9:13 PM SOLE PAINTER) Pathologist [facility] eGFR >90 >=60 mL/min/1. 73 m2 Comment: [...] last reviewed 2021. Blood 09/06/2024 9:13 PM SOLE PAINTER 09/06/2024 9:55 PM SOLE PAINTER us Wilmer Muro MD LAB BLOOD ORDERABLES Final Re sult [facility] [place] [address] * Differential, auto (09/06/2024 9:13 PM SOLE PAINTER) Pathologist [facility] Neutrophil abs 3.6 1.5 - 6.5 K/cumm Imm gran abs 0.0 0.0 - 0.1 K/cumm [facility] Lymphocyte abs 2.0 0.8 - 3.3 K/cumm [facility] Monocyte abs 0.6 0.2 - 0.8 K/cumm [facility] Eosinophil abs 0.1 0.0 - 0.5 K/cumm [facility] Basophil abs 0.0 0.0 - 0.1 K/cumm [facility] Neutrophil pct 57.4 % [facility] Comment: Interpretive Data Percent cell count reference ranges are not reported, since discordance with absolute values may lead to misinterpretation of CBC data. Current Interpretive Data was last revised on 2017. Imm gran pct 0.3 % [facility] Comment: Interpretive Data Percent cell count reference ranges are not reported, since discordance with absolute values may lead to misinterpretation of CBC data. Current Interpretive Data was last revised on 2017. Lymphocyte pct 30.9 % [facility] Comment: Interpretive Data Percent cell count reference ranges are not reported, since discordance with absolute values may lead to misinterpretation of CBC data. Current Interpretive Data was last revised on 2017. Monocyte pct 9.1 % [facility] Comment: Interpretive Data Percent cell count reference ranges are not reported, since discordance with absolute values may lead to misinterpretation of CBC data. Current Interpretive Data was last revised on 2017. Eosinophil pct 2.0 % [facility] Comment: Interpretive Data Percent cell count reference ranges are not reported, since discordance with absolute values may lead to misinterpretation of CBC data. Current Interpretive Data was last revised on 2017. Basophil pct 0.3 % [facility] Comment: Interpretive Data Percent cell count reference ranges are not reported, since discordance with absolute values may lead to misinterpretation of CBC data. Current Interpretive Data was last revised on 2017. Blood 09/06/2024 9:13 PM SOLE PAINTER 09/06/2024 9:56 PM SOLE PAINTER us Wilmer Muro MD LAB BLOOD ORDERABLES Final Re sult [facility] [place] [address] * (ABNORMAL) CBC with auto differential (09/06/2024 9:13 PM SOLE PAINTER) WBC 6.4 3.8 - 9.9 K/cumm Hgb 13.9 13.0 - 17.5 g/dL [facility] Hct 43.6 38.9 - 50.3 % [facility] Plt 267 150 - 400 K/cumm [facility] MPV 10.1 9.1 - 12.3 fL [facility] RBC 4.94 4.30 - 5.80 M/cumm [facility] MCV 88.3 81.3 - 96.4 fL [facility] MCH 28.1 27.1 - 33.3 pg [facility] MCHC 31.9(L) 32.3 - 35.7 g/dL [facility] RDW CV 13.2 11.1 - 14.9 % [facility] RDW SD 42.4 35.7 - 48.1 fL [facility] NRBC abs 0.00 0.00 - 0.01 K/cumm [facility] Blood Venous blood specimen / Unknown 09/06/2024 9:13 PM SOLE PAINTER 09/06/2024 9:56 PM SOLE PAINTER Wilmer Muro MD LAB BLOOD ORDERABLES Final Re sult [facility] [place] [address] * (ABNORMAL) Comprehensive metabolic panel (09/06/2024 9:13 PM SOLE PAINTER) Sodium 147(H) 135 - 145 mmol/L Potassium, pl 4.1 3.3 - 4.9 mmol/L [facility] Chloride 111(H) 97 - 110 mmol/L [facility] CO2 28 22 - 32 mmol/L [facility] Anion gap 8 2 - 15 mmol/L [facility] BUN 9 6 - 25 mg/dL [facility] Creatinine 1.05 0.80 - 1.30 mg/dL [facility] Glucose 91 70 - 199 mg/dL [facility] Comment: Interpretive Data Fasting glucose >/= [...] AST 26 10 - 50 Units/L [facility] Blood 09/06/2024 9:13 PM SOLE PAINTER 09/06/2024 9:55 PM SOLE PAINTER us Wilmer Muro MD LAB BLOOD ORDERABLES Final Re sult [facility] [place] [address] * XR Finger Right 2 or More Views (09/06/2024 8:43 PM SOLE PAINTER) Anatomical Region Laterality Modality Upper Extremities, Hand, Fingers Right Computed Radiography 09/06/2024 8:45 PM SOLE PAINTER Impressions 09/06/2024 8:57 PM SOLE PAINTER No acute fracture or dislocation. Joint spaces are preserved. Dictated by: Jay Rios MD The radiology attending physician has personally reviewed this study, and had reviewed and/or edited this written report and agrees with it. Electronically signed by: Mckenna Spencer M.D. Narrative 09/06/2024 8:57 PM SOLE PAINTER EXAMINATION: XR FINGER RIGHT 2 OR MORE [...] Pa Lateral 2 Views (09/06/2024 8:43 PM SOLE PAINTER) Anatomical Region Laterality Modality Body, Chest N/A Computed Radiogr aphy 09/06/2024 8:44 PM SOLE PAINTER Impressions 09/06/2024 8:56 PM SOLE PAINTER FINDINGS/IMPRESSION: 2 views of the chest are [...] Mckenna Spencer M.D. Narrative 09/06/2024 8:56 PM SOLE PAINTER EXAMINATION: XR CHEST PA LATERAL 2 VIEWS [...] Advance Directives For more information, please contact: [phone] * Full Code (Latest Code Status on [...] 7:18 AM 05/25/2023 5:25 PM Care Teams [employer] Chemistry Teacher Relationship Specialty Start Date End Date No, Physician PCP - General 11/30/20
--- OUTSIDE RECORDS SUMMARY | 2024-10-09 22:33 | XMS_ITS | Clinical Summary ---
Author Organization [facility] Address [address] [place] [address] Phone Care Team Providers Care Ms Sql Dba Name Role Phone Provider, None Primary Care [...] Comments Blood Pressure 134/78 09/19/2023 6:07 PM AIRLINE OPERATIONS AGENT Pulse 70 09/19/2023 9:14 PM AIRLINE OPERATIONS AGENT Temperature 36.6 C (97.8 F) 09/19/2023 6:07 PM AIRLINE OPERATIONS AGENT Respiratory Rate 17 09/19/2023 6:07 PM AIRLINE OPERATIONS AGENT Oxygen Saturation 94% 09/19/2023 9:14 PM AIRLINE OPERATIONS AGENT Inhaled Oxygen Concentration - - Weight 79.4 kg (175 lb) 09/19/2023 6:07 PM AIRLINE OPERATIONS AGENT Height 185.4 cm (6' 1 ) 09/19/2023 6:07 PM AIRLINE OPERATIONS AGENT Body Mass Index 23.09 09/19/2023 6:07 PM AIRLINE OPERATIONS AGENT Plan of Treatment Health Maintenance Due Date [...] age to complete this topic Insurance MEDICAID [employer] Care Teams Ms Sql Dba Relationship Specialty Start Date End Date Provider, None [place] PCP - General 08/19/23
--- OUTSIDE RECORDS SUMMARY | 2024-10-09 22:33 | XMS_ITS | Clinical Summary ---
Author Organization [facility] Address [facility] [place] [address] Care Team Providers Care Ad Compositor Name Role Phone None, Provider MD Primary [...] Department Care Team Description 10/07/2024 1:49 AM RECHECKER - 10/07/2024 3:26 AM RECHECKER Emergency [facility] [place] [address] Ian Persaud MD Abdominal Pain Discharge Disposition: Home or Self Care (Routine Discharge) 10/07/2024 Travel 09/12/2024 11:01 PM RECHECKER - 09/13/2024 2:56 AM RECHECKER Emergency [facility] [place] [address] [place] [address] Ian Persaud MD Chest Pain Discharge Disposition: Home or Self Care (Routine Discharge) 09/12/2024 Travel from Last 3 Months Social History Tobacco Use Types Packs/Day Years Used Date Smoking Tobacco: Former Cigarettes Cigars Smokeless Tobacco: Never Tobacco Cessation:Counseling Given: Not Answered Alcohol Use Standard Drinks/Week Comments Yes 0 (1 standard drink = 0.6 oz pur e alcohol) [facility] [employer] Answer Date Recorded In the past 12 months has [employer], gas, oil, or water [email or web address] threatened to shut off services in your [...] week 06/17/2023 How often do you attend [facility] or tenriism services? 1 to 4 times per year 06/17/2023 Do you belong to any clubs o r organizations such as quaker groups, unions, fraternal or athletic groups, or [...] Recorded Patient Health Questionnaire-2 Score 0 06/17/2023 [facility]at [facility] - Occupational Stress Questionnaire Answer Date [...] place to sleep or slept in a care home (including now)? No 06/17/2023 Housing Stability Vital [...] Sex Assigned at Male 09/12/2024 10:51 PM RECHECKER Legal Sex Male 4:43 PM CDT Gender Identity Not on file Sexual Orientation Not on file Last Filed Vital Signs Vital Sign Reading Time Taken Comments Blood Pressure 151/92 10/07/2024 1:22 AM RECHECKER Pulse 102 10/07/2024 1:22 AM RECHECKER Temperature 37.2 C (98.9 F) 10/07/2024 1:22 AM RECHECKER Respiratory Rate 18 10/07/2024 1:22 AM RECHECKER Oxygen Saturation 100% 10/07/2024 1:22 AM RECHECKER Inhaled Oxygen Concentration - - Weight 72.6 kg (160 lb) 10/07/2024 1:22 AM RECHECKER Height 180.3 cm (5' 11 ) 10/07/2024 1:22 AM RECHECKER Body Mass Index 22.32 10/07/2024 1:22 AM RECHECKER Plan of Treatment Health Maintenance Due Date [...] this topic Meningococcal Vaccine Aged Out No glia jorge eligible based on patient's age to [...] discharge from hospital Lifestyle No 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, 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 Procedures Procedure Name Priority Date/Time Associated Diagnosis Comments CT ABD+PEL W CON STAT 10/07/2024 2:23 AM RECHECKER LIPASE STAT 10/07/2024 2:04 AM RECHECKER COMPREHENSIVE METABOLIC PANEL STAT 10/07/2024 2:04 AM RECHECKER CBC W/DIFF AUTOMATED STAT 10/07/2024 2:04 AM RECHECKER ECG 12-LEAD STAT 09/13/2024 1:59 AM RECHECKER TROPONIN, QUANT STAT 09/13/2024 1:50 AM RECHECKER XR CHEST PORTABLE STAT 09/12/2024 11: 16 PM RECHECKER C-REACTIVE PROTEIN STAT 09/12/2024 10 :59 PM RECHECKER TROPONIN, QUANT STAT 09/12/2024 10:59 PM RECHECKER COMPREHENSIVE METABOLIC PANEL STAT 09/12/2024 10:59 PM RECHECKER CBC W/DIFF AUTOMATED STAT 09/12/2024 10:59 PM RECHECKER SED RATE, ERYTHROCYTE (ESR) STAT 09/12/2024 10:53 PM RECHECKER ECG 12-LEAD STAT 09/12/2024 10:52 PM RECHECKER from Last 3 Months Results * CT ABD+PEL W IV CON ONLY (10/07/2024 2:23 AM RECHECKER) Anatomical Region Laterality Modality Abdomen Computed Tomogra phy 10/07/2024 2:25 AM RECHECKER Impressions 10/07/2024 2:32 AM RECHECKER IMPRESSION: 1. No definite acute CT findings [...] 10/07/2024 2:25 AM Narrative 10/07/2024 2:32 AM RECHECKER [address] [address] EXAMINATION: CT ABD+PEL W CON, 10/07/2024 2:25 [...] Procedure Note Jeremiah Sam MD - 10/07/[address] [address] EXAMINATION: CT ABD+PEL W CON, 10/07/2024 2:25 [...] Sam MD, 10/07/2024 2:25 AM Breanne Griffin [place] CT Final Result * (ABNORMAL) COMPREHENSIVE METABOLIC PANEL (10/07/2024 2:04 AM RECHECKER) Only the most recent of2 resultswithin the time period is included. GLUCOSE 115(H) 70 - 99 MG/DL 10/07/2024 2:54 AM [facility] BUN 14 7 - 18 MG/DL 10/07/2024 2:54 AM [facility] CREATININE S/P/B 1.24 0.7 - 1.3 MG/DL 10/07/2024 2:54 AM [facility] SODIUM S/P/B 140 136 - 145 MMOL/L 10/07/2024 2:54 AM [facility] POTASSIUM S/P/B 3.7 3.5 - 5.1 MMOL/L 10/07/2024 2:54 AM [facility] CHLORIDE S/P/B 110 97 - 115 MMOL/L 10/07/2024 2:54 AM [facility] CO2 28.8 21 - 32 MMOL/L 10/07/2024 2:54 AM [facility] CALCIUM S/P/B 8.4(L) 8.5 - 10.1 MG/DL 10/07/2024 2:54 AM [facility] BILIRUBIN TOTAL S/P/B 0.2 0.2 - 1.2 MG/DL 10/07/2024 2:54 AM [facility] Comment: THIS ASSAY IS NOT RECOMMENDED FOR PATIENTS UNDERGOING TREATMENT WITH ELTROMBOPAG DUE TO THE POTENTIAL FOR FALSELY ELEVATED RESULTS. TOTAL PROTEIN S/P/B 7.3 6.4 - 8.2 G/DL 10/07/2024 2:54 AM [facility] ALBUMIN S/P/B 3.4 3.4 - 5.0 G/DL 10/07/2024 2:54 AM [facility] AST 15 15 - 37 U/L 10/07/2024 2:54 AM [facility] ALT 26 16 - 60 U/L 10/07/2024 2:54 AM [facility] ALKALINE PHOSPHATASE S/P/B 71 50 - 136 U/L 10/07/2024 2:54 AM [facility] ANION GAP 1.2(L) 2 - 10 MMOL/L 10/07/2024 2:54 AM [facility] BUN CREATININE RATIO 11.3 6 - 26 10/07/2024 2:54 AM [facility] A/G RATIO 0.9(L) 1.0 - 2.0 RATIO 10/07/2024 2:54 AM [facility] GFR ESTIMATE 79(L) >90 ML/MIN/1.7 3 M2 10/07/2024 2:54 AM [facility] Comment: NOTE: eGFR is not calculated for patients <18 years of age or gender unknown. This is an estimated GFR calculation using the new CKD EPI creatinine equation without race and so does not require a correction factor for race. This estimated GFR should not be used for calculating drug doses. 10/07/2024 2:04 AM RECHECKER [facility] Final Result [facility] [address] [place] [address], * (ABNORMAL) CBC W/DIFF AUTOMATED (10/07/2024 2:04 AM RECHECKER) Only the most recent of2 resultswithin the time period is included. WBC 6.53 4.5 - 11.0 x10'3/uL 10/07/2024 2:19 AM [facility] RBC 4.62(L) 4.70 - 6.10 x10'6/uL 10/07/2024 2:19 AM [facility] HGB 13.0(L) 14.0 - 18.0 G/DL 10/07/2024 2:19 AM [facility] HCT 41.1(L) 43.0 - 54.0 % 10/07/2024 2:19 AM [facility] MCV 89.0 80.0 - 94.0 FL 10/07/2024 2:19 AM [facility] MCH 28.1 27.0 - 31.0 PG 10/07/2024 2:19 AM [facility] MCHC 31.6(L) 32.0 - 36.0 G/DL 10/07/2024 2:19 AM [facility] RDW 13.2 11.5 - 14.5 % 10/07/2024 2:19 AM [facility] PLT 298 130 - 400 x10'3/uL 10/07/2024 2:19 AM [facility] MPV 9.8 9.3 - 12.2 FL 10/07/2024 2:19 AM [facility] DIFFERENTIAL TYPE AUTOMATED DIFFERENTIAL 10/07/2024 2:19 AM [facility] NEUTROPHILS % 61.9 % 10/07/2024 2:19 AM [facility] LYMPHOCYTES % 24.0 % 10/07/2024 2:19 AM [facility] MONOCYTES % 11.2 % 10/07/2024 2:19 AM [facility] EOSINOPHILS 2.0 % 10/07/2024 2:19 AM [facility] BASOPHILS 0.6 % 10/07/2024 2:19 AM [facility] IMMATURE GRANS % 0.3 % 10/08/19 2:19 AM [facility] ABS. NEUTROPHILS 4.04 1.80 - 7.70 x10'3/uL 10/07/2024 2:19 AM [facility] ABS. LYMPHOCYTES 1.57 1.00 - 4.80 x10'3/uL 10/07/2024 2:19 AM [facility] ABS. MONOCYTES 0.73 0.30 - 0.82 x10'3/uL 10/07/2024 2:19 AM [facility] ABS. EOSINOPHILS 0.13 0.04 - 0.54 x10'3/uL 10/07/2024 2:19 AM [facility] ABS. BASOPHILS 0.04 0.01 - 0.08 x10'3/uL 10/07/2024 2:19 AM [facility] ABS. IMMATURE GRANULOCYTES 0.02 0.00 - 0.49 x10'3/uL 10/07/2024 2:19 AM [facility] 10/07/2024 2:04 AM RECHECKER Breanne [facility] Final Result [facility] [address] [place] [id number], * LIPASE (10/07/2024 2:04 AM RECHECKER) LIPASE 32 13 - 75 UNITS/L 10/07/2024 2:54 AM RECHECKER [facility] 10/07/2024 2:04 AM RECHECKER Breanne [facility] Final Result Performing Organization Address [facility] Co de Phone Number [facility] [address] [place] [id number], * ECG 12 lead (09/13/2024 1:59 AM RECHECKER) Only the most recent of2 resultswithin the time period is included. 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 : 1990 Requested By: BREANNE GRIFFIN Order Number: [id number] Reading MD: Angie Vilchis Measurements Intervals Point Clear Rate: 68 P: 29 ME: 144 QRS: 81 QRSD: 120 T: 43 QT: 390 QTc: 415 Interpretive Statements SINUS RHYTHM POSSIBLE LEFT VENTRICULAR HYPERTROPHY [VOLTAGE CRITERIA PLUS LAE OR QRS WIDENING] ST ELEVATION, CONSIDER ANTEROLATERAL and INFERIOR INJURY [MARKED ST ELEVATION W/O NORMALLY INFLECTED T WAVE IN V3-V6] +++ ACUTE OR +++ Compared to ECG 09/12/2024 22:52:04 No significant changes ECKER Procedure Note Angie Vilchis MD - 09/13/[address] Test Date: 2024-09-13 Pat Name: FLACO BEST Department: 41 Room: [id number] 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: Male 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: [id number] : 1990 Requested By: BREANNE GRIFFIN Order Number: [id number] Reading MD: Angie Vilchis Measurements Intervals Point Clear Rate: 68 P: 29 ME: 144 QRS: 81 QRSD: 120 T: 43 QT: 390 QTc: 415 Interpretive Statements SINUS RHYTHM POSSIBLE LEFT VENTRICULAR HYPERTROPHY [VOLTAGE CRITERIA PLUS LAE OR QRS WIDENING] ST ELEVATION, CONSIDER ANTEROLATERAL and INFERIOR INJURY [MARKED STELEVATION W/O NORMALLY INFLECTED T WAVE IN V3-V6] +++ ACUTE OR +++ Compared to ECG 09/12/2024 22:52:04 No significant changes ECKER us Breanne MTZ ECG ORDERABLES Final Result [facility] ([facility]) RAD * TROPONIN, QUANT (09/13/2024 1:50 AM RECHECKER) Only the most recent of2 resultswithin the time period is included. TROPONIN I HIGH SENSITIVITY 34 <79 ng/L 09/13/2024 2:24 AM RECHECKER [facility] Comment: HIGH DOSES OF BIOTIN, TROPONIN-SPECIFIC AUTOANTIBODIES, AND ANTIBODY THERAPY CONTAINING HAMA MAY INTERFERE WITH THIS TEST RESULT. CORRELATION TO CLINICAL HISTORY AND PRESENTATION RECOMMENDED. 09/13/2024 1:50 AM RECHECKER Breanne [facility] Final Result [facility] [address] [place] [address], * XR CHEST PORTABLE (09/12/2024 11:16 PM RECHECKER) Anatomical Region Laterality Modality Chest Radiographic Macarena ging 09/12/2024 11:1 8 PM RECHECKER Impressions 09/12/2024 11:18 PM RECHECKER IMPRESSION: ======== 1. No acute cardiopulmonary findings. Referred By: Interpreted By: Alexis Clarke MD, 09/12/2024 11:18 PM Narrative 09/12/2024 11:18 PM RECHECKER [address] [address] Examination: Chest x-ray 1 view Exam Date/Time: [...] Procedure Note Alexis Clarke MD - 09/12/[address] [address] Examination: Chest x-ray 1 view Exam Date/Time: [...] Result * C-REACTIVE PROTEIN (09/12/2024 10:59 PM RECHECKER) C-REACTIVE PROTEIN <0.29 <0.29 mg/dL 09/12/2024 11:36 PM RECHECKER [facility] 09/12/2024 10:5 9 PM RECHECKER us Breanne [facility] Final Result Performing Organization Address City/[facility] Co de Phone Number [facility] [address] [place] [address], [place] [phone] * SED RATE, ERYTHROCYTE (ESR) (09/12/2024 10:53 PM RECHECKER) ESR 9 <15 MM/HR 09/12/2024 11:37 PM RECHECKER [facility] Comment:Testing performed on [employer] iSED. 09/12/2024 10:5 3 PM RECHECKER us Breanne [facility] Final Result [facility] [address] [place] [address], [place] [phone] from Last 3 Months Insurance [employer] Advance Directives * Full Code (Latest Code Status on File) Date Activated Date Inactivated Comments 06/16/2023 10:32 PM 06/18/2023 1:59 PM Care Teams Ad Compositor Relationship Specialty Start Date End Date None, Provider, PCP - General UNKNOWN PHYSICIAN SPECIALTY 06/16/23
[2024-10-09] MEDS: IBUPROFEN 600 MG TABLET PO (22:38)
[2024-10-09 22:54] LABS: Troponin I < 0.012 ng/mL (0.000-0.034)
[2024-10-09 22:58] LABS: Influenza A QL RT-PCR Negative (Negative); Influenza B QL RT-PCR Negative (Negative); RSV RNA, RT-PCR Negative (Negative); SARS-CoV-2 RNA PCR Negative (Negative)
--- NOTE | 2024-10-09 23:17 | ED.GENADULT ---
HPI - General Adult General Chief complaint: Psychiatric Symptoms Stated complaint: Chest pain, suicidal thoughts/hallucinations Time Seen by Provider: 10/09/24 21:56 History of Present Illness HPI narrative: Patient is a 34-year-old male who presents to the emergency department this evening with suicidal ideations. Patient states that he has been going through a lot of life stressors recently and that his cousins niece recently which has been triggering some suicidal thoughts. Patient states that he feels depressed, and has thoughts of cutting himself. Denies any homicidal ideations at this time. Admits that he has been having some visual hallucinations. Patient admits to history of drug use with meth but states that he has not used meth in the past 9 months. He denies any alcohol use. Admits that he has been hospitalized in the past for behavior health/suicidal ideations. Patient is also complaining of chest pain and states that he has a history of pericarditis and this feels just like his chronic pericarditis pain which he takes colchicine for her. Denies any nausea, vomiting, abdominal pain, and denies any shortness of breath. No additional symptoms or concerns at this time. Related Data Home Medications ?Medication ?Instructions ?Recorded ?Confirmed ?Last Taken ?Type clonazepam 0.5 mg tablet 0.5 mg PO PRN PRN Anxiety 12/15/23 12/15/23 Unknown History cyanocobalamin (vitamin B-12) 10,000 mcg PO DAILY 12/15/23 12/15/23 Unknown History 1,000 mcg tablet doxycycline hyclate 100 mg capsule 100 mg PO DAILY 12/15/23 12/15/23 Unknown History ferrous sulfate 325 mg (65 mg 325 mg PO DAILY 12/15/23 12/15/23 Unknown History iron) tablet (FeroSul) Allergies Allergy/AdvReac Type Severity Reaction Status Date / Time No Known Allergies Allergy Verified 10/09/24 21:39 Review of Systems Review of Systems: All systems are reviewed and are negative unless stated otherwise in the HPI. ON LICENSE OF [facility] Past Medical History Medical History Depression Pericarditis Surgical History Surgical History No pertinent past surgical history Social History Social History Substance use type: does not use Exam Narrative: General: Alert, awake, afebrile, in no acute distress. HEENT: PERRL, no rhinorrhea, no post nasal drip, oropharynx clear. Neck: Trachea midline, no JVD, no lymphadenopathy. Cardiovascular: Regular rate and rhythm, no murmurs, rubs or gallops, no peripheral edema. Respiratory: Clear to auscultation bilaterally, no tachypnea, no wheezing, no rhonchi, no rubs, no respiratory distress. Abdomen: Soft, nontender, nondistended, no rebound, no guarding, no peritoneal signs. Musculoskeletal: No joint swelling or deformity, normal muscle tone. Skin: No rashes or petechia, no signs of infection. Psychiatric: Alert and oriented, normal behavior and judgment for situation. Neurological: Alert and oriented to person, place, and time. Follows all commands. No focal deficits, speech is clear and fluent. Course Vital Signs Vital signs: Vital Signs Temperature 97.8 F 10/09/24 21:41 Pulse Rate 56 L 10/09/24 21:41 Respiratory Rate 18 10/09/24 21:41 Blood Pressure 133/82 10/09/24 21:41 Pulse Oximetry 95 10/09/24 21:41 Oxygen Delivery Room Air 10/09/24 21:41 Temperature 97.8 F 10/09/24 21:41 Pulse Rate 66 10/09/24 21:54 Respiratory Rate 17 10/09/24 21:54 Blood Pressure 131/80 10/09/24 21:54 Pulse Oximetry 97 10/09/24 21:54 Oxygen Delivery Room Air 10/09/24 21:[address] [facility] Narrative Medical decision making narrative: The patient was evaluated by myself in the emergency department. History is obtained from patient who is an independent historian and physical exam was performed. External medical records were reviewed at this time. IV was established and pertinent tests were ordered. Patient was administered 600 mg of oral ibuprofen for chest pain, likely patient's chronic pericarditis. EKG was obtained which revealed a paced rhythm rate of 62 beats per minute, good capture, negative Sgarbossa. No ST changes, T wave inversions or evidence of acute ischemia. EKG was independently interpreted by me and is currently pending official cardiology read. EKG was compared to multiple previous EKGs noted on file revealing some oral findings Laboratory results obtained revealing no acute process. Troponin negative. Urinalysis unremarkable, urine drug screen noted to be positive for cannabinoids. Viral swabs noted to be negative for COVID/influenza/RSV. Differential diagnosis considerations include suicidal ideations, homicidal ideations, depression, anxiety, acute stress reaction, pneumonia, acute viral syndrome, pericarditis, costochondritis. Comorbidities impacting this visit include history of previous psychiatric hospitalization for suicidal ideations and history of pericarditis. I have evaluated and discussed social determinants of health with the patient that could potentially impact subsequent diagnosis and treatment plans. On repeat assessment of the patient, reevaluation revealed that the patient is doing well and is in no acute distress. Patient symptoms have improved since he arrived to our emergency department. States that his chest pain has completely resolved. Repeat vital signs were all reviewed and noted to be stable. Differential diagnosis and treatment plan were discussed with the patient at bedside. Patient is now medically cleared pending psychiatric evaluation. Patient was evaluated by our psychiatric team recommending inpatient hospitalization for suicidal ideations. Patient is currently pending placement. Patient was accepted to [facility] and is currently pending transport. Accepting physician Dr. Pond. Vital Signs Vital Signs: Vital Signs Temperature 97.8 F 10/09/24 21:41 Pulse Rate 56 L 10/09/24 21:41 Respiratory Rate 18 10/09/24 21:41 Blood Pressure 133/82 10/09/24 21:41 Pulse Oximetry 95 10/09/24 21:41 Oxygen Delivery Room Air 10/09/24 21:41 Temperature 97.8 F 10/09/24 21:41 Pulse Rate 66 10/09/24 21:54 Respiratory Rate 17 10/09/24 21:54 Blood Pressure 131/80 10/09/24 21:54 Pulse Oximetry 97 10/09/24 21:54 Oxygen Delivery Room Air 10/09/24 21:41 Lab Data 10/09/24 22:05 10/09/24 22:05 Labs: Lab Results 10/09/24 10/09/24 10/09/24 Range/Units 22:04 22:05 23:02 WBC 7.0 (4.5-10.0) K/mm3 RBC 4.64 (4.6-6.20) M/mm3 Hgb 13.1 L (14.0-18.0) g/dL Hct 40.9 L (42.0-52.0) % MCV 88.1 (80-100) fl MCH 28.2 (26-34) pg MCHC 32.0 (32-36) g/dl RDW 13.3 (11.5-14.5) % Plt Count 290 (150-375) k/mm3 MPV 9.5 (7.4-10.4) fl Immature Gran % (Auto) 0.3 (0-0.5) % Neut % (Auto) 56.2 (45.5-73.1) % Lymph % (Auto) 31.7 (18.3-44.2) % Franklin % (Auto) 9.1 H (2.6-8.5) % Eos % (Auto) 2.3 (0-4.4) % Baso % (Auto) 0.4 (0.2-1.2) % Lymph # (Auto) 2.22 (0.9-3.2) K/mm3 Franklin # (Auto) 0.6 (0.1-0.6) K/mm3 Eos # (Auto) 0.2 (0-0.3) K/mm3 Baso # (Auto) 0.0 (0.0-0.1) K/mm3 Abs Immat Gran (auto) 0.02 (0.00-0.031) K/mm3 Absolute Neuts (auto) 3.9 (1.3-6.7) K/mm3 Absolute Nucleated RBC 0.000 (0.0-0.012) K/mm3 Nucleated RBC % 0.0 (0.0-0.2) % Sodium 143 (137-145) mmol/L Potassium 3.7 (3.4-5.0) mmol/L Chloride 107 (98-107) mmol/L Carbon Dioxide 25 (22-30) mmol/L Anion Gap 11 (4-12) mmol/L BUN 12 (9-20) mg/dL Creatinine 1.01 (0.7-1.3) mg/dL Estim Creat Clear Calc Not Reportable Estimated GFR > 60 (59 - ) Glucose 118 H (65-110) mg/dL Calcium 9.2 (8.4-10.2) mg/dL Total Bilirubin 0.2 (0.2-1.3) mg/dL AST 24 (17-59) U/L ALT 22 (6-50) U/L Alkaline Phosphatase 62 (38-126) U/L Troponin I < 0.012 (0.000-0.034) ng/mL Total Protein 7.0 (6.3-8.2) g/dL Albumin 4.2 (3.5-5.1) g/dL TSH (Reflex) 1.990 (0.465-4.68) uIU/mL Urine Color Yellow (Yellow) Urine Appearance Clear (Clear) Urine pH 5.5 (5.0-9.0) Ur Specific Parachute 1.034 (1.001-1.035) Urine Protein 1+ H (Negative) mg/dL Urine Glucose (UA) Negative (Negative) mg/dL Urine Ketones Trace H (Negative) mg/dL Ur Blood (Man) Negative (Negative) Urine Nitrate Negative (Negative) Urine Bilirubin Negative (Negative) Urine Urobilinogen 1.0 (<2.0) mg/dL Add Ur Microanalysis Reviewed Leukocyte Esterase Rfl Negative (Negative) JOYCE/UL Urine RBC 0-2 (0-2) /hpf Urine WBC 0-5 (0-3) /hpf Ur Squamous Epith Cells None seen (Few) /hpf Urine Bacteria None seen /hpf Urine Casts 0-2 Urine Opiates Screen Negative (Negative) Urine Methadone Screen Negative (Negative) Ur Barbiturates Screen Negative (Negative) Ur Phencyclidine Scrn Negative (Negative) Ur Amphetamine Screen Negative (Negative) U Benzodiazepines Scrn Negative (Negative) Urine Cocaine Screen Negative (Negative) U Cannabinoids Screen Positive A (Negative) Ethyl Alcohol < 10 (<10) mg/dL Influenza A (RT-PCR) Negative (Negative) Influenza B (RT-PCR) Negative (Negative) RSV (RT-PCR) Negative (Negative) SARS-CoV-2 RNA (RT-PCR) Negative (Negative) Discharge Plan Discharge Clinical Impression: Chronic pericarditis, Suicidal ideations, Depression, Acute stress reaction Patient Disposition: Psychiatric Hosp Condition: Stable Patient Language: Bengali Prescriptions: No Action doxycycline hyclate 100 mg capsule 100 mg PO DAILY clonazepam 0.5 mg tablet 0.5 mg PO PRN PRN (Reason: Anxiety) cyanocobalamin (vitamin B-12) 1,000 mcg tablet 10,000 mcg PO DAILY ferrous sulfate [FeroSul] 325 mg (65 mg iron) tablet 325 mg PO DAILY Follow-up/Referrals: UNKNOWN,DOCTOR [Primary Care Provider] - Time of Disposition: 04:51
[2024-10-09 23:33] LABS: Add Urine Microscopic? YES; Appearance Urine Clear (Clear); Bacteria Urine None Seen /hpf; Bilirubin Urine Negative (Negative); Blood Urine Negative (Negative); Color Urine Yellow (Yellow); Glucose Urine UA Negative (Negative); Ketones Urine Trace mg/dL (Negative); Leukocyte Esterase Ur Negative LEU/UL (Negative); Need Manual Microscopic Reviewed; Nitrate Urine Negative (Negative); Non Pathogenic Casts 0-2; Protein Urine 1+ mg/dL (Negative); RBC Urine 0-2 /hpf (0-2); Specific Grav Ur 1.034 (1.001-1.035); Squamous Epithelial Cell Urine None Seen /hpf (Few); WBC Urine 0-5 /hpf (0-3); pH Urine 5.5 (5.0-9.0)
[2024-10-09 23:47] LABS: Amphetamine Screen Urine Negative (Negative); Barbiturate Screen Urine Negative (Negative); Benzodiazepines Screen Urine Negative (Negative); Cannabinoid Screen Urine Positive (Negative); Cocaine Screen Urine Negative (Negative); Methadone Screen Urine Negative (Negative); Opiate Screen Urine Negative (Negative); Phencyclidine Screen Urine Negative (Negative)
--- NOTE | 2024-10-09 23:54 | PC.NURSE ---
Patient has been medically cleared. Crisis has been contacted and will arrive within 90 minutes.
--- NOTE | 2024-10-10 05:23 | PC.NURSE ---
Pt accepted to [facility] by Dr. Pond with dx of adjustment disorder with depressed mood. Bed 5[address] Sarah Fair with [facility] stated RN will call for report in one hour.
[2024-10-10 08:30] VITALS: BP 115/71; PULSE 60; RESP 16; O2SAT 99
== END 2024-10-10 08:34 ==
PROVIDERS: Emergency Provider Emergency Medicine
DX: R45.851 Suicidal ideations (principal); F43.0 Acute stress reaction; F32.A Depression, unspecified; I31.9 Disease of pericardium, unspecified; Z11.52 Encounter for screening for COVID-19
CPT/HCPCS: 36415; 80053; 80307; 81001; 82077; 84443; 84484; 85025; 87637; 93005; 99284; A9270

== ENCOUNTER 2024-10-31 12:43 | Emergency (ER) | payer OTHER, SELFPAY ==
--- NOTE | ~2024-10-31 | XR_ITS ---
EXAMINATION: XR chest 2V DATE: 10/31/2024 13:13 INDICATION: Chest pain TECHNIQUE: frontal and lateral views of the chest were obtained. COMPARISON: Chest radiograph dated 03/07/2024 FINDINGS: Unchanged mild biapical pleural-parenchymal scarring. The lungs remain otherwise clear with no focal airspace opacities, pulmonary edema, pleural effusion or pneumothorax. The cardiomediastinal silhouet te is normal. Visualized bones and soft tissues are unremarkable. IMPRESSION: 1. No acute cardiopulmonary disease. Reviewed, dictated and finalized at location A.
[2024-10-31 12:47] VITALS: BP 134/93; PULSE 54; RESP 16; TEMP 37.1; O2SAT 100
--- NOTE | 2024-10-31 12:48 | ECG_ITS ---
Test Date: 2024-10-31 12:53:15 Measurements Intervals [place] Rate: 55 P: 30 MT: 180 QRS: 75 QRSD: 105 T: 53 QT: 380 QTc: 364 Interpretive Statements SINUS BRADYCARDIA VOLTAGE CRITERIA FOR LVH ST ELEVATION IN DIFFUSE LEADS- PROBABLY EARLY REPOLARIZATION ABNORMALITY BASELINE ARTIFACT- V1, V4 ABNORMAL ECG Compared to ECG 10/09/2024 21:56:27 NO SIGNIFICANT CHANGE Electronically Signed On 10-31-2024 12:57:51 CDT by Juvenal Arteaga D.O.
[2024-10-31 13:04] LABS: Basophils Percent Auto 0.3 % (0.2-1.2); Eosinophils Absolute Auto 0.1 K/mm3 (0-0.3); Eosinophils Percent Auto 1.4 % (0-4.4); Hematocrit 41.7 % (42.0-52.0); Hemoglobin 13.3 g/dL (14.0-18.0); Immature Granulocyte Absolute 0.01 K/mm3 (0.00-0.031); Immature Granulocyte Percent A 0.1 % (0-0.5); Lymphocytes Absolute Auto 1.58 K/mm3 (0.9-3.2); Lymphocytes Percent Auto 22.7 % (18.3-44.2); Mean Corpuscular HGB Conc 31.9 g/dl (32-36); Mean Corpuscular Hemoglobin 28.2 pg (26-34); Mean Corpuscular Volume 88.5 fl (80-100); Mean Platelet Volume 9.6 fl (7.4-10.4); Monocytes Absolute Auto 0.6 K/mm3 (0.1-0.6); Monocytes Percent Auto 8.9 % (2.6-8.5); Neutrophils Absolute Auto 4.6 K/mm3 (1.3-6.7); Neutrophils Percent Auto 66.6 % (45.5-73.1); Platelet Count Result 229 k/mm3 (150-375); Red Blood Count 4.71 M/mm3 (4.6-6.20); Red Cell Distribution Width 13.6 % (11.5-14.5)
[2024-10-31 13:23] LABS: Alanine Aminotransferase 23 U/L (6-50); Albumin Level 4.3 g/dL (3.5-5.1); Alkaline Phosphatase 61 U/L (38-126); Anion Gap 10 mmol/L (4-12); Aspartate Amino Transferase 26 U/L (17-59); Bilirubin,Total 0.3 mg/dL (0.2-1.3); Blood Urea Nitrogen 13 mg/dL (9-20); Calcium 9.2 mg/dL (8.4-10.2); Carbon Dioxide 22 mmol/L (22-30); Chloride 108 mmol/L (98-107); Estimated CRCL calculation 90 ml/min; Estimated Glomerular Filt Rate > 60; Glucose 93 mg/dL (65-110); Lipase 84 U/L (23-300); Potassium 4.4 mmol/L (3.4-5.0); Sodium 140 mmol/L (137-145)
[2024-10-31 13:29] LABS: Troponin I < 0.012 ng/mL (0.000-0.034)
[2024-10-31 13:30] VITALS: O2SAT 98
[2024-10-31 13:32] LABS: Prothrombin Time 13.5 Seconds (11.1-14.7)
[2024-10-31 13:33] LABS: Partial Thromboplastin Time 27.5 Seconds (22.3-36.8)
[2024-10-31] MEDS: KETOROLAC 30 MG/ML VIAL (*BKC) IV PUSH (13:50)
[2024-10-31 14:00] VITALS: BP 130/89; PULSE 74; RESP 16; O2SAT 97
--- OUTSIDE RECORDS SUMMARY | 2024-10-31 14:31 | XMS_ITS | CONTINUITY OF CARE DOCUMENT ---
Author Name ed ward Address Unknown Organization [facility] Address [address] [place] [address] Phone [phone] Care Team Providers Care Policy Service Coordinator Name Role Phone Cat Choudhary MD Unavailable Cat Choudhary MD Unavailable PROBLEMS Condition Status Date Provider Notes Acute idiopathic pericarditis active Haritha MTZ Specialist Cardiology examination active Garfield Lucas MD Marijuana use active Garfield Lucas MD ENCOUNTERS Date Type Provider Location Encounter Diag nosis - In-person encounter Office Visit Garfield Lucas MD [facility] Cardiology examinationMarijuana use VITAL SIGNS Date [...] history of marijuana use yes Mckennakaren Zhangmiglia [employer] drug use no Mckenna Ventimig maureen [employer] alcohol use no Mckenna Ventimig maureen [employer] cigarette use yes Stephan Velasco ay smoking status Former smoker Stephan Whitt rday INSURANCE PROVIDERS Payer name Policy type / Coverage type [place] red democrat [employer] MED[employer] Medicaid [id number] ADVANCE DIRECTIVES Name Date DISCUSSED - NO DECISION MADE TREATMENT PLAN Date Name Performer Cardiology:cessation encouraged Mckenna Zhangmiglia [facility] Cardiology:patient h as had recurrent ER visits for chest pain suggestive of pericarditis as worse with leaning forward and deep inspiration p ain has been refractory to NSAIDs and colchincine We will do echo to look for effusion w ill plan to send order for arcalyst p atient will return in 3 mos or sooner if needed. Mckenna Zhangmiglia [facility] Date Name Complete Echo HISTORY OF PROCEDURES Procedure Date Procedure Name Provider Procedure Notes S tatus EKG Garfield Lucas MD complete d
--- OUTSIDE RECORDS SUMMARY | 2024-10-31 14:31 | XMS_ITS | Patient Health Record ---
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 Name Role Phone Rocío Castillo Primary Care Provider Reason For Referral No Information Social History Sex Assigned At : Social History Observation Description Sex Assigned At Male Encounters Encounter Location Date Provider Diagnosis [address] [place] [address] 10/16/2024 Rocío Casitllo Plan Of Treatment No Information Insurance Providers Payer Name Payer Address Payer Phone Subscriber Number Group Number Insured Name Patient Relationship to Insured Coverage Start Date Coverage End Date [employer] [phone] [id number] [employer] - patient is the insured 4
--- OUTSIDE RECORDS SUMMARY | 2024-10-31 14:31 | XMS_ITS | Clinical Summary ---
Author Organization [facility] [employer] Address [address] [place] [address] [place] [address] Care Team Providers Care Structural Steel Worker Helper Name Role Phone None, Physician Primary Care Provider Unavailabl e Source Comments [facility] [employer],non-owned Affiliates and Associated Physician Practices is amultiple site organization consisting of ambulatory clinics and hospital sitesin [place], [place], [place] and [place]. This disclosure is being madepursuant to the Care Everywhere program and may not contain all information available regarding this patient. Last updated 18.[employer] Allergies No known active allergies Medications * [...] Active Problems Problem Noted Date Diagnosed Date Unspecified mood (affective) disorder 10/10/2024 Suicidal ideation 08/29/2023 Chronic pericarditis, unspec ified complication status, unspecified type 08/29/2023 Recurrent major depressive d isorder, remission status unspecified 08/29/2023 Encounter for medication monitoring 08/29/2023 Mood disorder 08/16/2023 Chronic pericarditis by hx 08/07/2023 Severe episode of recurrent major depressive disorder, without psychotic features 08/06/2023 ST elevation myocardial infarction (STEMI) 06/02 Overview (06/02/2022): Added automatically from request for surgery [id number] ST elevation myocardial infa rction (STEMI), unspecified artery 06/02/2022 Chest pain due to myocardial ischemia, unspecified ischemic chest pain type 06/02/2022 Encounters Date Type Department Care Team Description 09/17/2024 1:40 AM TECHNOLOGY LAB TEACHER - 09/17/2024 4:[address] [facility] Emergency [facility] EMERGENCY DEPARTMENT [address] [place] [address] Kyree Rossi MD Acute idiopathic pericarditis (Primary Dx); Chest pain, unspecified type; Cough, [...] housing, medical care, and heating? Hard 08/07/2023 [facility] [place] of Occupat ional Health - Occupational Stress [...] Comments Blood Pressure 141/85 09/17/2024 4:00 AM TECHNOLOGY LAB TEACHER Pulse 87 09/17/2024 4:00 AM TECHNOLOGY LAB TEACHER Temperature 36.9 C (98.5 F) 09/17/2024 1:48 AM TECHNOLOGY LAB TEACHER Respiratory Rate 13 09/17/2024 4:02 AM TECHNOLOGY LAB TEACHER Oxygen Saturation 96% 09/17/2024 4:00 AM TECHNOLOGY LAB TEACHER Inhaled Oxygen Concentration - - Weight 72.6 kg (160 lb) 09/17/2024 1:45 AM TECHNOLOGY LAB TEACHER Height 180.3 cm (5' 11 ) 09/17/2024 1:45 AM TECHNOLOGY LAB TEACHER Body Mass Index 22.32 09/17/2024 1:45 AM TECHNOLOGY LAB TEACHER Plan of Treatment Health Maintenance Due Date Last Done Comments HEPATITIS B VACCINE (3 of 3 - 3-dose series) 11/16/2000 09/21/2000, 04/04/1996 DTAP/TDAP/TD VACCINES (5 - Tdap) 2002 04/04/1996, 08/20/1992, 06/20/1992, Additional history exists HIV SCREENING 2006 HEPATITIS C SCREENING 03/01/2009 COVID-19 VACCINE ( season) 2024 INFLUENZA VACCINE (#1) 2024 DEPRESSION SCREENING 08/02/2024 ZOSTER VACCINE (1 of 2) 2041 HIB VACCINE Completed 08/20/1992, 06/02, 04/30/1992 HPV VACCINE Aged Out No longer eligi ble based on patient's age to complete this topic MENINGOCOCCAL (Group B) VACCINE SHARED DECISION-MAKING Aged Out No longer eligible based on patient's age to complete this topic MENINGOCOCCAL GROUPS A/C/Y/W VACCINE Aged Out No longer eligible based on patient's age to complete this topic PNEUMOCOCCAL VACCINE Aged Out No long er eligible based on patient's age to complete this topic Procedures Procedure Name Priority Date/Time Associated Diagnosis Comments CARDIAC EKG ORDER 09/19/2024 1:4 4 PM TECHNOLOGY LAB TEACHER BLOOD TYPE VERIFICATION STAT 09/17/2024 2:53 AM TECHNOLOGY LAB TEACHER TROPONIN-I HIGH SENSITIVE REFLEX 1HOUR Timed 09/17/2024 2:53 AM TECHNOLOGY LAB TEACHER XR CHEST 2VW STAT 09/17/2024 2:07 AM TECHNOLOGY LAB TEACHER Chest pain, unspecified type SARS-COV-2 (COVID-19)+INFLU A+B PCR RAPID STAT 09/17/2024 2:02 AM TECHNOLOGY LAB TEACHER TYPE + SCREEN PANEL STAT 09/17/2024 1 :52 AM TECHNOLOGY LAB TEACHER B-TYPE NATRIURETIC PEPTIDE STAT 09/17/2024 1:52 AM TECHNOLOGY LAB TEACHER TROPONIN-I HIGH SENSITIVE BASELINE + 1HR STAT 09/17/2024 1:52 AM TECHNOLOGY LAB TEACHER PT-INR [facility] STAT 09/17/2024 1:52 AM TECHNOLOGY LAB TEACHER MAGNESIUM BLOOD STAT 09/17/2024 1:52 AM TECHNOLOGY LAB TEACHER COMPREHENSIVE METABOLIC PANEL STAT 09/17/2024 1:52 AM TECHNOLOGY LAB TEACHER CBC W AUTO DIFFERENTIAL STAT 09/17/2024 1:52 AM TECHNOLOGY LAB TEACHER EKG 12-LEAD STAT 09/17/2024 1:43 AM TECHNOLOGY LAB TEACHER Chest pain, unspecified type from Last 3 Months Results * CARDIAC EKG ORDER (09/19/2024 1:44 PM TECHNOLOGY LAB TEACHER) Narrative 09/19/2024 1:44 PM TECHNOLOGY LAB TEACHER Ordered by an unspecified provider. Scanned Document CARDIAC SERVICES ORD ERABLES * TROPONIN-I HIGH SENSITIVE REFLEX 1HOUR (09/17/2024 2:53 AM TECHNOLOGY LAB TEACHER) Troponin I High Sensitive 9 <=35 ng/L 09/17/2024 3:38 AM TECHNOLOGY LAB TEACHER [facility] Delta Troponin I HS 0 <6 ng/L 09/17/2024 3:38 AM TECHNOLOGY LAB TEACHER [facility] Blood BLOOD SPECIMEN / Unknown Venipuncture / Unknown 09/17/2024 2:53 AM TECHNOLOGY LAB TEACHER 09/17/2024 2:59 AM TECHNOLOGY LAB TEACHER Kyree Rossi MD LAB - CHEMISTRY ORDE TOM [address] [address], [facility] [phone] * BLOOD TYPE VERIFICATION (09/17/2024 2:53 AM TECHNOLOGY LAB TEACHER) ABO Rh A POS 09/17/2024 3:2 2 AM TECHNOLOGY LAB TEACHER [facility] BLOOD BANK LAB Blood Bank BLOOD SPECIMEN / Unknown Venipuncture / Unknown 09/17/2024 2:53 AM TECHNOLOGY LAB TEACHER 09/17/2024 3:00 AM TECHNOLOGY LAB TEACHER Kyree Rossi MD LAB - BLOOD BANK ORD ERABLES [facility] BLOOD BANK LAB [address] [place] [address], [facility] [phone] * XR CHEST 2VW (09/17/2024 2:07 AM TECHNOLOGY LAB TEACHER) Anatomical Region Laterality Modality Chest Digital Radiogra phy 09/17/2024 2:08 AM TECHNOLOGY LAB TEACHER Narrative 09/17/2024 7:55 AM TECHNOLOGY LAB TEACHER PROCEDURE: XR CHEST 2VW, DATE/TIME OF EXAM: 09/17/2024 2:08 AM, LOCATION [facility] INDICATION: R07.9: Chest pain, unspecified type ADDITIONAL CLINICAL INFORMATION: Ordering Provider Reason For Exam: pna vs other Technologist Note: Additional: COMPARISON: None. FINDINGS/IMPRESSION: No focal consolidation, pleural effusion, or pneumothorax. The cardiomediastinal silhouette is normal. No acute osseous abnormality. > Dictated by Acacia Leal MD (radiology rn) I, Mandi Mccain MD have personally reviewed and interpreted this examination/study. > Interpreting Provider: Mandi Mccain MD on 09/17/2024 7:55 AM Procedure Note Mandi Mccain MD - 09/17/2024 PROCEDURE: XR CHEST 2VW, DATE/TIME OF EXAM: 09/17/2024 2:08 AM, LOCATION [facility] INDICATION: R07.9: Chest pain, unspecified type ADDITIONAL CLINICAL INFORMATION: Ordering Provider Reason For Exam: pna vs other Technologist Note: Additional: COMPARISON: None. FINDINGS/IMPRESSION: No focal consolidation, pleural effusion, or pneumothorax. The cardiomediastinal silhouette is normal. No acute osseousabnormality. > Dictated by Acacia Leal MD (radiology rn) I, Mandi Mccain MD have personally reviewed and interpreted this examination/study. > Interpreting Provider: Mandi Mccain MD on 09/17/2024 7:55 AM Kyree Rossi MD DIAGNOSTIC IMAGING O RDERABLES * SARS-COV-2 (COVID-19)+INFLU A+B PCR RAPID (09/17/2024 2:02 AM TECHNOLOGY LAB TEACHER) COVID-19 PCR Not detected Not detected 09/17/19 2:45 AM TECHNOLOGY LAB TEACHER [facility] Influenza A Rapid ROSALIND Not Detected Not Detected 09/17/2024 2:45 AM [facility] Influenza B ROSALIND Rapid Not Detected Not Detected 09/17/2024 2:45 AM [facility] Microbiology SPECIMEN FROM NASOPHARYNGEAL STRUCTURE / Unknown Collection / Unknown 09/17/2024 2:02 AM TECHNOLOGY LAB TEACHER 09/17/2024 2:05 AM TECHNOLOGY LAB TEACHER Narrative [facility] - 09/17/2024 2:45 AM TECHNOLOGY LAB TEACHER Influenza assay performed by Nucleic Acid [...] acid amplification assay performance was validated by [facility]. This test has been authorized [...] - MICROBIOLOGY O RDERABLES Performing Organization Address City/[facility]/ZIP Co de Phone Number [address] [address], [place] [phone] * PT-INR [facility] (09/17/2024 1:52 AM TECHNOLOGY LAB TEACHER) Pathologist [facility] PT 13.3 12.1 - 14.8 Seconds 09/17/2024 2:18 AM TECHNOLOGY LAB TEACHER [facility] INR 1.0 See Comment 09/17/2024 2:18 AM TECHNOLOGY LAB TEACHER [facility] Comment:The suggested therap eutic range for standard coumadin (warfarin) therapy is an INR of 2.0-3.0. For high-risk patients (Mechanical Mitral Valve Prosthesis, etc.), the suggested prophylactic therapeutic range is an INR of 2.5-3.5. Blood BLOOD SPECIMEN / Unknown Venipuncture / Unknown 09/17/2024 1:52 AM TECHNOLOGY LAB TEACHER 09/17/2024 1:57 AM TECHNOLOGY LAB TEACHER Kyree Rossi MD LAB - COAGULATION OR DERABLES Performing Organization Address [facility]/ZIP Co de Phone Number [address] [address], [place] [phone] * TROPONIN-I HIGH SENSITIVE BASELINE + 1HR (09/17/2024 1:52 AM TECHNOLOGY LAB TEACHER) Pathologist [facility] Troponin I High Sensitive 9 <=35 ng/L 09/17/2024 2:28 AM TECHNOLOGY LAB TEACHER [facility] Blood BLOOD SPECIMEN / Unknown Venipuncture / Unknown 09/17/2024 1:52 AM TECHNOLOGY LAB TEACHER 09/17/2024 1:57 AM TECHNOLOGY LAB TEACHER Kyree Rossi MD LAB - CHEMISTRY ORDE RABLES Performing Organization Address City/[facility]/ZIP Co de Phone Number [address] [address], [place] [phone] * TYPE + SCREEN PANEL (09/17/2024 1:52 AM TECHNOLOGY LAB TEACHER) Antibody Screen NEG 2:35 AM [facility] BLOOD BANK LAB ABO Rh A POS 09/17/2024 2:35 AM [facility] BLOOD BANK LAB Blood Bank BLOOD SPECIMEN / Unknown Venipuncture / Unknown 09/17/2024 1:52 AM TECHNOLOGY LAB TEACHER 09/17/2024 1:59 AM TECHNOLOGY LAB TEACHER Kyree Rossi MD LAB - BLOOD BANK ORD ERABLES [facility] BLOOD BANK LAB [address] [place] [address], [facility] [phone] * (ABNORMAL) CBC W AUTO DIFFERENTIAL (09/17/2024 1:52 AM TECHNOLOGY LAB TEACHER) Pathologist [facility] WBC 5.1 4.0 - 10.7 x10E9/L 09/17/2024 2:01 AM [facility] RBC Count 4.62 4.30 - 5.80 x10E12/L 09/17/2024 2:01 AM [facility] Hemoglobin 13.2(L) 13.3 - 17.5 g/dL 09/17/2024 2:01 AM [facility] Hematocrit 39.2 38.7 - 51.1 % 09/17/2024 2:01 AM [facility] MCV 84.8 80.0 - 98.0 fL 09/17/2024 2:01 AM [facility] MCH 28.6 26.7 - 33.6 pg 09/17/2024 2:01 AM [facility] MCHC 33.7 31.7 - 36.3 g/dL 09/17/2024 2:01 AM [facility] RDW-CV 13.2 11.3 - 14.8 % 09/17/2024 2:01 AM [facility] Platelet Count 240 150 - 420 x10E9/L 09/17/2024 2:01 AM [facility] MPV 9.6 7.8 - 11.4 fL 09/17/2024 2:01 AM [facility] Neutrophil % 69.4 41.0 - 74.0 % 09/17/2024 2:01 AM [facility] Lymphocyte % 18.1 17.0 - 47.0 % 09/17/2024 2:01 AM [facility] Monocyte % 10.5 3.0 - 11.0 % 09/17/2024 2:01 AM [facility] Eosinophil % 1.4 0.0 - 7.0 % 09/17/2024 2:01 AM [facility] Basophil % 0.4 0.0 - 1.6 % 09/17/2024 2:01 AM [facility] Immature Granulocytes % 0.2 0.0 - 1.0 % 09/17/2024 2:01 AM [facility] Neutrophil Absolute 3.56 1.60 - 7.50 x10E9/L 09/17/2024 2:01 AM [facility] Lymphocyte Absolute 0.93(L) 1.00 - 4.40 x10E9/L 09/17/2024 2:01 AM [facility] Monocyte Absolute 0.54 0.15 - 1.00 x10E9/L 09/17/2024 2:01 AM [facility] Eosinophil Absolute 0.07 0.00 - 0.60 x10E9/L 09/17/2024 2:01 AM [facility] Basophil Absolute 0.02 0.00 - 0.13 x10E9/L 09/17/2024 2:01 AM [facility] Blood BLOOD SPECIMEN / Unknown Venipuncture / Unknown 09/17/2024 1:52 AM TECHNOLOGY LAB TEACHER 09/17/2024 1:[address] [facility] Kyree Rossi MD LAB - HEMATOLOGY ORD ERABLES [facility] [address] [place] [address], [facility] [phone] * B-TYPE NATRIURETIC PEPTIDE (09/17/2024 1:[address] [facility]) Pathologist [facility] BNP <10 <100 pg/mL 09/17/2024 2:43 AM [facility] Comment: A decision threshold of 100 [...] Unknown Venipuncture / Unknown 09/17/2024 1:52 AM TECHNOLOGY LAB TEACHER 09/17/2024 2:[address] [facility] Kyree Rossi MD LAB - CHEMISTRY CECIL SANTOS [facility] Organization Address City/State/ZIP Co de Phone Number [facility] [address] [place] [address] [phone] * (ABNORMAL) COMPREHENSIVE METABOLIC PANEL (09/17/2024 1:[address] [facility]) BUN 8 7 - 26 mg/dL 09/17/2024 2:24 AM [facility] Creatinine 1.03 0.71 - 1.16 mg/dL 09/17/2024 2:24 AM [facility] Sodium 142 136 - 145 mmol/L 09/17/2024 2:24 AM [facility] Potassium 3.8 3.5 - 4.5 mmol/L 09/17/2024 2:24 AM [facility] Chloride 110(H) 98 - 107 mmol/L 09/17/2024 2:24 AM [facility] CO2 23 22 - 29 mmol/L 09/17/2024 2:24 AM [facility] Glucose 128(H) 70 - 99 mg/dL 09/17/2024 2:24 AM [facility] Calcium 8.8 8.4 - 10.2 mg/dL 09/17/2024 2:24 AM [facility] Protein Total 7.0 6.0 - 8.3 g/dL 09/17/2024 2:24 AM [facility] Albumin 3.8 3.4 - 5.0 g/dL 09/17/2024 2:24 AM [facility] Bilirubin Total 0.3 0.2 - 1.2 mg/dL 09/17/2024 2:24 AM [facility] Alkaline Phosphatase 65 40 - 150 U/L 09/17/2024 2:24 AM [facility] ALT 35 5 - 55 U/L 09/17/2024 2:24 AM [facility] AST 29 5 - 34 U/L 09/17/2024 2:24 AM [facility] Anion Gap 9 6 - 16 09/17/2024 2:24 AM [facility] BUN/Creatinine Ratio 8 7 - 23 09/17/2024 2:24 AM [facility] Osmolality Calculated 294 275 - 295 mOsm/kg 09/17/2024 2:24 AM [facility] Albumin/Globulin Ratio 1.2 1.1 - 2.3 09/17/2024 2:24 AM [facility] eGFR by CKD-EPI >90 >=90 mL/min/1.7 3 m2 09/17/2024 2:24 AM [facility] Blood BLOOD SPECIMEN / Unknown Venipuncture / Unknown 09/17/2024 1:52 AM TECHNOLOGY LAB TEACHER 09/17/2024 1:57 AM TECHNOLOGY LAB TEACHER Kyree Rossi MD LAB - CHEMISTRY ORDE [facility] Organization Address [facility]/State/[place] Co de Phone Number [facility] [address] [place] [address] [phone] * MAGNESIUM BLOOD (09/17/2024 1:52 AM TECHNOLOGY LAB TEACHER) Magnesium 1.8 1.6 - 2.6 mg/dL 09/17/2024 2:24 AM [facility] Blood BLOOD SPECIMEN / Unknown Venipuncture / Unknown 09/17/2024 1:52 AM TECHNOLOGY LAB TEACHER 09/17/2024 1:57 AM TECHNOLOGY LAB TEACHER Kyree Rossi MD LAB - CHEMISTRY ORDE RABLES [facility] [address] [place] [address], [facility] [phone] * EKG 12-LEAD (09/17/2024 1:43 AM TECHNOLOGY LAB TEACHER) Ventricular Rate 80 BPM [facility]USE Atrial Rate 80 BPM [facility] MUSE P-R Interval 164 ms [facility]USE QRS Duration ms 116 ms H MUSE Q-T Interval ms 356 ms [facility] MUSE QTC Calculation (Bezet) 410 ms [facility] MUSE Calculated P [place] 36 degrees [facility] Calculated R [place] 80 degrees [facility]USE Calculated T [place] 48 degrees [facility] MUSE Interpretation EKG NORMAL SINUS RHYTHM ST ELEVATION CONSIDER ANTEROLATERAL INJURY OR ACUTE INFARCT ST ELEVATION CONSIDER INFERIOR INJURY OR ACUTE INFARCT ACUTE IA / STEMI ABNORMAL ECG WHEN COMPARED WITH ECG OF 28-AUG-2023 22:14, T WAVE INVERSION NO LONGER EVIDENT IN INFERIOR LEADS NONSPECIFIC T WAVE ABNORMALITY HAS REPLACED INVERTED T WAVES IN LATERAL LEADS Confirmed by VALERIA PETERSON, TG ([id number]) on 09/23/2024 7:15:26 PM [facility] MUSE 09/17/2024 1:43 AM TECHNOLOGY LAB TEACHER 09/23/2024 7:15 PM TECHNOLOGY LAB TEACHER Kyree Rossi MD ECG ORDERABLES Performing Organization Address [facility]/[place] Co de Phone Number [facility] [place] from Last 3 Months Advance Directives * Full Code (Latest Code Status on File) Date Activated Date Inactivated Comments 08/29/2023 6:12 AM 08/29/2023 1:31 PM * Full Code Date Activated Date Inactivated Comments 08/07/2023 11:38 AM 08/10/2023 3:33 PM * Full Code Date Activated Date Inactivated Comments 06/02/2022 4:30 AM 06/03/2022 4:00 PM Care Teams Structural Steel Worker Helper Relationship Specialty Start Date End Date None, Physician PCP - General 09/17/24
--- OUTSIDE RECORDS SUMMARY | 2024-10-31 14:31 | XMS_ITS ---
Author Organization [facility] Address [address] [place] [address] Care Team Providers Care Fishing Lure Assembler Name Role Phone Rocío Castillo Primary Care Provider REASON FOR VISIT psych eval, fu from [facility] Social History Sex Assigned At : Social History Observation Description Sex Assigned At Male Encounters Encounter Location Date Provider Diagnosis [address] [place] [address] 10/16/2024 Rocío Castillo Plan Of Treatment No Information Progress Notes * Flaco BESTDOB:[birth year] (34 yo M)Acc No.[id number]:10/16/2024 UNLOCKED PROGRESS NOTE Patient: Flaco LYNN Provider: Lluvia Castillo MSN, AUTOMOBILE CONTRACT CLERK, SCISSORS SHARPENER-C :1990 A ge:34 Y S ex:Male Date:10/16/2024 Address:[address] [place] [address], [place], [id number] Subjective: * Chief Complaints: * 1 . psych eval, fu from [facility]. * Medical History: Objective: * Vitals: Assessment: Plan: * Treatment: * * Electronic signature of Stacey Castillo , [id number] on 10/31/2024 at 02:31 PM CDT Sign off status: Pending * Provider: Lluvia Castillo MSN, AUTOMOBILE CONTRACT CLERK, SCISSORS SHARPENER-C Date: 0 10/16/2024 Generated for Roseann hernandez/Marcos/eTransmitting on: 10/31/2024 02:31 PM CDT
--- OUTSIDE RECORDS SUMMARY | 2024-10-31 14:32 | XMS_ITS | Clinical Summary ---
Author Organization [facility] Address [address] [place] [address] Phone Care Team Providers Care Ferryboat Deckhand Name Role Phone Provider, None Primary Care [...] Comments Blood Pressure 134/78 09/19/2023 6:07 PM [facility] Pulse 70 09/19/2023 9:14 PM [facility] Temperature 36.6 C (97.8 F) 09/19/2023 6:07 PM [facility] Respiratory Rate 17 09/19/2023 6:07 PM [facility] Oxygen Saturation 94% 09/19/2023 9:14 PM [facility] Inhaled Oxygen Concentration - - Weight 79.4 kg (175 lb) 09/19/2023 6:07 PM [facility] Height 185.4 cm (6' 1 ) 09/19/2023 6:07 PM [facility] Body Mass Index 23.09 09/19/2023 6:07 PM [facility] Plan of Treatment Health Maintenance Due Date [...] age to complete this topic Insurance MEDICAID [facility] Care Teams Ferryboat Deckhand Relationship Specialty Start Date End Date Provider, None [place] PCP - General 08/19/23
--- OUTSIDE RECORDS SUMMARY | 2024-10-31 14:32 | XMS_ITS | Clinical Summary ---
Author Organization [facility] Address [address] [place] [address] Phone Care Team Providers Care Information Technology Data Analyst Name Role Phone Unavailable Primary Care Provider Unavailabl e Allergies No known active allergies Social History Tobacco Use Types Packs/Day Years Used Date Smoking Tobacco: Never Assessed Sex and Gender Information Value Date Recorded Sex Assigned at Not on file Legal Sex Male 8:18 AM APPOINTMENT MANAGER Gender Identity Not on file Sexual Orientation Not on file Last Filed Vital Signs Vital Sign Reading Time Taken Comments Blood Pressure 136/87 06/14/2021 8:27 AM APPOINTMENT MANAGER Pulse - - Temperature 36.9 C (98.4 F) 06/14/2021 8:27 AM APPOINTMENT MANAGER Respiratory Rate 18 06/14/2021 8:27 AM APPOINTMENT MANAGER Oxygen Saturation 98% 06/14/2021 8:27 AM APPOINTMENT MANAGER Inhaled Oxygen Concentration - - Weight 69.9 kg (154 lb) 06/14/2021 8:27 AM APPOINTMENT MANAGER Height 15.2 cm (6 ) 06/14/2021 8:27 AM APPOINTMENT MANAGER Body Mass Index 3007.61 06/14/2021 8:27 AM APPOINTMENT MANAGER Plan of Treatment Health Maintenance Due Date Last Done Comments DTAP/TDAP/TD VACCINES (1 - Tdap) 2010 HEPATITIS B VACCINES (1 of 3 - 19+ 3-dose series) 2010 INFLUENZA VACCINE (#1) 2024 HPV VACCINES Aged Out No longer eligi ble based on patient's age to complete this topic [place] [address] [place] [address] MEDICAID
--- OUTSIDE RECORDS SUMMARY | 2024-10-31 14:32 | XMS_ITS | Clinical Summary ---
Author Organization 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 Name Role Phone No, Physician Primary Care Provider [phone] Allergies No known active allergies Medications colchicine (COLCRYS) 0.6 mg capsuleIndicati ons:pericarditi s Take 1 capsule (0.6 mg total) by mouth 2 (two) times a day 60 capsule 09/19/2024 Active Active Problems Problem Noted Date Diagnosed Date History of iron deficiency 09/30/2024 Assessment & Plan (09/30/2024 9:09 AM COMPUTER TAPE LIBRARIAN): Will try to obtain iron studies I asked SW to help w/ PCP followup Epigastric pain 09/30/2024 Assessment & Plan (09/30/2024 9:17 AM COMPUTER TAPE LIBRARIAN): When asked where his pericarditis pain is, he points to the epigastrium. When I saw him in 11/2023, I had requested an H pylori stool antigen, which we were not able to obtain. -Try again to obtain H pylori antigen (especially w/ history of anemia) Depression 09/29/2024 Assessment & Plan (09/29/2024 1:17 PM COMPUTER TAPE LIBRARIAN): As per psychiatry Will isidoroon tayler TSH Pericarditis 09/29/2024 Assessment & Plan (09/30/2024 9:10 AM COMPUTER TAPE LIBRARIAN): Currently asymptomatic. Will obtain EKG. 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 Low threshold to restart. The chest pain (when present) he notes is epigastric so that may be a component of GERD Renal lesion 09/29/2024 Assessment & Plan (09/30/2024 9:09 AM COMPUTER TAPE LIBRARIAN): 11/02/23 CT: There are 3 low-attenuation lesions [...] 08/14/23, 11/02/23 w/ diffuse ST elevation, w/ NH depression) and a negative ischemic workup (including [...] follows w/ Dr Cat Choudhary (cardiology w/ [facility]), which he will follow up with Plan: [...] 11/16/2023 Assessment & Plan (09/30/2024 9:11 AM COMPUTER TAPE LIBRARIAN): B12 300, same as 11/2023. Will replete [...] 11/16/2023 Assessment & Plan (09/30/2024 9:11 AM COMPUTER TAPE LIBRARIAN): Late latent, appropriately treated. See my 11/15/24 note Assessment & Plan (11/16/2023 1:25 PM CDT): As per my colleague Dr Bynum (see 09/07/23 medicine c/s note): - Has history of Syphilis, treated in 2013 , -Treponema ab + and RPR 1:4 on 08/29/23 when tested at [facility] ED Contact[facility] [place] [facility] for [place] To see if titers are coming down , left message with Nurse ( [phone]): Called back received, Patient diagnosed with late [place] [facility] [place] : +RPR titer 1 :256, treponema -EIA positive Completed treatment with benzathine penicillin G x 3 doses given on November 21 2013, November 28 2013 and December 052013 So appropriately treated Lumbar strain, initial encounter 09/16/2023 Anemia 09/08/2023 Assessment & Plan (09/08/2023 8:05 PM COMPUTER TAPE LIBRARIAN): -possible hx of GI bleed in June, [...] disease) Assessment & Plan (09/08/2023 5:10 AM COMPUTER TAPE LIBRARIAN): -continue pepcid Adjustment disorders, with mixed anxiety and dep ressed mood 09/07/2023 Assessment & Plan (09/08/2023 4:53 AM COMPUTER TAPE LIBRARIAN): Per Psychiatry Cannabis use disorder, moderate, dependence 01/2024 Assessment & Plan (09/08/2023 4:53 AM COMPUTER TAPE LIBRARIAN): Per Psychiatry History of syphilis 09/07/2023 Assessment & Plan (09/08/2023 12:28 PM COMPUTER TAPE LIBRARIAN): - Has history of Syphilis, treated in 2013 , -Treponema ab + and RPR 1:4 on 08/29/23 [facility] [place] [facility] [place] To see if titers are coming down , left message with Nurse ( [phone]): Called back received, Patient diagnosed with late latent syphilis at [facility] in [place] on 10-11 : +RPR titer 1 :256, [...] recs Assessment & Plan (07/27/2023 10:01 AM COMPUTER TAPE LIBRARIAN): Wes has been struggling for the last [...] Med recs apprec; h/o pericarditis Swer to [facility] with follow-up and dispo Assessment & Plan (07/26/2023 9:44 AM COMPUTER TAPE LIBRARIAN): Wes has been struggling for the last [...] Med recs apprec; h/o pericarditis Swer to [facility] with follow-up and dispo Assessment & Plan (07/25/2023 12:24 PM COMPUTER TAPE LIBRARIAN): Wes has been struggling for the last [...] Med recs apprec; h/o pericarditis Swer to [facility] with follow-up and dispo Assessment & [...] was started on Abilify and Depakote in [place], and reports that his visual and auditory hallucinations have resolved. - Start Sertraline 50mg, consider titrating - Obtain further information about the hallucinations - Haldol 5 p.o. or Haldol 5/Ativan 2 IM PRN for agitation - Suicide/elopement/safety precautions - Therapeutic milieu - q15 min safety checks Asthma 05/22/2023 Assessment & Plan (09/29/2024 1:14 PM COMPUTER TAPE LIBRARIAN): Mild. Prn albuterol Assessment & Plan (09/08/2023 5:12 AM COMPUTER TAPE LIBRARIAN): - no PFTs available , currently not in exacerbation, - PRN albuteral Assessment & Plan (07/25/2023 10:37 AM COMPUTER TAPE LIBRARIAN): Intermittent. No symptoms. Uses albuterol prn at [...] 09/07/202310/31 Assessment & Plan (09/08/2023 8:04 PM COMPUTER TAPE LIBRARIAN): - patient has not been able to afford colchicine and reports benefit when getting doses in ED visits - continue colchicine 0.6 mg po BID and monitor for side effects, it should be held if nausea, vomiting, diarrhea -Hold NSAIDS as -he as not tolerated with significant Gi side effects -Patient was seen by Cardiology as outpatient on 09/02/2023 at [facility] ([facility]) and has an [...] psychiatry Assessment & Plan (07/25/2023 10:36 AM COMPUTER TAPE LIBRARIAN): Pt w/ hx of depression and anxiety presents w/ SI after grandmother passing. Didn't have intent or plan. Denies SI now -mgt per primary Encounters Date Type Department Care Team Description 09/28/2024 2:49 AM COMPUTER TAPE LIBRARIAN - 10/01/2024 11:55 AM COMPUTER TAPE LIBRARIAN Hospital Encounter [facility] [address] [place] [address] Torres Armenta MD L'Ecuyer, MD Ivy Dixon, [...] home or self care 09/19/2024 5:09 PM COMPUTER TAPE LIBRARIAN - 09/19/2024 5:50 PM [facility] Emergency [facility] Emergency Department [address] [place] [phone] Kenny Curran MD Pericarditis (Primary Dx) Discharge Disposition: Discharge to home or self care 09/14/2024 12:06 AM COMPUTER TAPE LIBRARIAN - 09/14/2024 7:08 AM [facility] Emergency [facility] Emergency Department [address] [place] [phone] Alexis Santos MD Abdominal pain (Primary Dx) Discharge Disposition: Discharge to home or self care 09/13/2024 [facility]phone [facility] [address] [place] [address] [facility] 4th Floor [address] [place] [address] Lara Herrera 09/08/2024 Telephone [facility] [address] [place] [address] 4th Floor [address] [place] [phone] Lara Herrera 09/07/2024 1:21 AM COMPUTER TAPE LIBRARIAN - 09/07/2024 6:46 AM COMPUTER TAPE LIBRARIAN Emergency [facility] Emergency Department [address] [place] [address] Wilmer Muro MD Chest pain, unspecified type [...] drink = 0.6 oz pur e alcohol) [facility] Utilities Answer Date Recorded In the past 12 months has [employer] gas, oil, or water [employer] threatened to shut off services in your [...] week 09/29/2024 How often do you attend caro center or orthodox services? Never 09/29/2024 Do you belong to any clubs o r organizations such as sikhism groups, unions, fraternal or athletic groups, or [...] staff should administer the PHQ-9) 2 09/07/2023 [facility] - Occupational Stress Questionnaire Answer Date [...] place to sleep or slept in a half-way (including now)? Yes 10/02/2023 Housing Stability Vital Sign Answer Pavel e Recorded In the last 12 months, was t here a time when you were not able to pay the mortgage or rent on time? No 09/29/2024 Number of Times Moved in the Last Year Not on fi le 09/29/2024 At any time in the past 12 m [facility], were you homeless or living in a half-way (including now)? No 09/29/2024 Personal Safety Answer [...] on file Legal Sex Male 5:49 PM COMPUTER TAPE LIBRARIAN Gender Identity Not on file Sexual Orientation Not on file Obstetrics History Last Filed Vital Signs Vital Sign Reading Time Taken Comments Blood Pressure 161/95 10/01/2024 7:56 AM COMPUTER TAPE LIBRARIAN Pulse 75 10/01/2024 7:56 AM COMPUTER TAPE LIBRARIAN Temperature 37.3 C (99.1 F) 10/01/2024 7:56 AM COMPUTER TAPE LIBRARIAN Respiratory Rate 20 10/01/2024 7:56 AM COMPUTER TAPE LIBRARIAN Oxygen Saturation 97% 10/01/2024 7:56 AM COMPUTER TAPE LIBRARIAN Inhaled Oxygen Concentration - - Weight 72.6 kg (160 lb 1.6 oz) 09/28/2024 2:30 P M COMPUTER TAPE LIBRARIAN Height 177.8 cm (5' 10 ) 09/28/2024 2:30 PM COMPUTER TAPE LIBRARIAN Body Mass Index 22.97 09/28/2024 2:30 PM COMPUTER TAPE LIBRARIAN Plan of Treatment Health Maintenance Due Date [...] GONORRHOEAE/C. TRACHOMATIS AMPLIFICATION Routine 09/30/2024 11:18 AM COMPUTER TAPE LIBRARIAN URINALYSIS, MICROSCOPIC ONLY STAT 09/28/2024 3:44 AM COMPUTER TAPE LIBRARIAN DRUGS OF ABUSE SCREEN, URINE WITHOUT CONFIRMATION STAT 09/28/2024 3:44 AM COMPUTER TAPE LIBRARIAN URINALYSIS AND REFLEX TO MICROSCOPIC STAT 09/28/2024 3:44 AM COMPUTER TAPE LIBRARIAN IRON PROFILE W/ IBC STAT 09/28/2024 3 :15 AM COMPUTER TAPE LIBRARIAN FERRITIN STAT 09/28/2024 3:15 AM COMPUTER TAPE LIBRARIAN TSH STAT 09/28/2024 3:15 AM COMPUTER TAPE LIBRARIAN VITAMIN B12 STAT 09/28/2024 3:15 AM COMPUTER TAPE LIBRARIAN ETHANOL STAT 09/28/2024 3:15 AM COMPUTER TAPE LIBRARIAN LIPID PANEL STAT 09/28/2024 1:27 AM COMPUTER TAPE LIBRARIAN EGFR STAT 09/28/2024 1:27 AM COMPUTER TAPE LIBRARIAN DIFFERENTIAL AUTO STAT 09/28/2024 1:2 7 AM COMPUTER TAPE LIBRARIAN LIPASE STAT 09/28/2024 1:27 AM COMPUTER TAPE LIBRARIAN COMPREHENSIVE METABOLIC PANEL STAT 09/28/2024 1:27 AM COMPUTER TAPE LIBRARIAN CBC WITH AUTO DIFFERENTIAL STAT 09/28/2024 1:27 AM COMPUTER TAPE LIBRARIAN RPR STAT 09/28/2024 1:27 AM COMPUTER TAPE LIBRARIAN HIV 1/2 ANTIBODY PLUS P24 ANTIGEN STAT 09/28/2024 1:27 AM COMPUTER TAPE LIBRARIAN RESPIRATORY PATHOGEN PANEL STAT 09/27/2024 10:38 PM COMPUTER TAPE LIBRARIAN TROPONIN I HIGH-SENSITIVITY 2-HOUR Timed 09/19/2024 5:19 PM COMPUTER TAPE LIBRARIAN XR CHEST PA LATERAL 2 VIEWS ED 09/19/2024 3:06 PM COMPUTER TAPE LIBRARIAN ECG 12-LEAD STAT 09/19/2024 3:00 PM COMPUTER TAPE LIBRARIAN EGFR STAT 09/19/2024 2:56 PM COMPUTER TAPE LIBRARIAN DIFFERENTIAL AUTO STAT 09/19/2024 2:5 6 PM COMPUTER TAPE LIBRARIAN TROPONIN I HIGH-SENSITIVITY SERIES (BASELINE, 2HR, 4HR, 6HR) STAT 09/19/2024 2:56 PM COMPUTER TAPE LIBRARIAN COMPREHENSIVE METABOLIC PANEL STAT 09/19/2024 2:56 PM COMPUTER TAPE LIBRARIAN CBC WITH AUTO DIFFERENTIAL STAT 09/19/2024 2:56 PM COMPUTER TAPE LIBRARIAN EGFR Routine 09/14/2024 4:26 AM COMPUTER TAPE LIBRARIAN LIPASE STAT 09/14/2024 4:26 AM COMPUTER TAPE LIBRARIAN COMPREHENSIVE METABOLIC PANEL Routine 09/14/2024 4:26 AM COMPUTER TAPE LIBRARIAN CBC WITHOUT DIFFERENTIAL Routine 09/14/2024 4:26 AM COMPUTER TAPE LIBRARIAN URINALYSIS, MICROSCOPIC ONLY Routine 09/14/2024 1:16 AM COMPUTER TAPE LIBRARIAN URINALYSIS AND REFLEX TO MICROSCOPIC AND CULTURE Routine 09/14/2024 1:16 AM COMPUTER TAPE LIBRARIAN POCUS CARDIAC 09/07/2024 3:41 AM COMPUTER TAPE LIBRARIAN TROPONIN I HIGH-SENSITIVITY 4-HOUR Timed 09/07/2024 2:19 AM COMPUTER TAPE LIBRARIAN TROPONIN I HIGH-SENSITIVITY 2-HOUR Timed 09/06/2024 10:53 PM COMPUTER TAPE LIBRARIAN ECG 12-LEAD STAT 09/06/2024 9:44 PM COMPUTER TAPE LIBRARIAN EGFR STAT 09/06/2024 9:13 PM COMPUTER TAPE LIBRARIAN DIFFERENTIAL AUTO STAT 09/06/2024 9:1 3 PM COMPUTER TAPE LIBRARIAN TROPONIN I HIGH-SENSITIVITY SERIES (BASELINE, 2HR, 4HR, 6HR) STAT 09/06/2024 9:13 PM COMPUTER TAPE LIBRARIAN COMPREHENSIVE METABOLIC PANEL STAT 09/06/2024 9:13 PM COMPUTER TAPE LIBRARIAN CBC WITH AUTO DIFFERENTIAL STAT 09/06/2024 9:13 PM COMPUTER TAPE LIBRARIAN XR FINGER RIGHT 2 OR MORE VIEWS ED 09/06/2024 8:43 PM COMPUTER TAPE LIBRARIAN XR CHEST PA LATERAL 2 VIEWS ED 09/06/2024 8:43 PM COMPUTER TAPE LIBRARIAN from Last 3 Months Results * N. gonorrhoeae/C. trachomatis Amplification Urine (09/30/2024 11:18 AM COMPUTER TAPE LIBRARIAN) Pathologist [facility] C. trachomatis Not Detected Not Detected [facility] N. gonorrhoeae Not Detected Not Detected [facility] Comment: Interpretive Data This assay detects Chlamydia trachomatis and Neisseria gonorrhoeae by nucleic acid amplification testing (NAAT). This assay has been cleared by the [place] Food and Drug administration. The performance characteristics of this test have been verified by the [facility] laboratory. The performance characteristics of this test have not been evaluated in individuals less than 14 years of age. Current Interpretive Data last revised 2023. Urine (None) 09/30/2024 11:1 8 AM COMPUTER TAPE LIBRARIAN 10/01/2024 2:05 PM COMPUTER TAPE LIBRARIAN us Max Lira MD LAB MICROBIOLOGY - GENERA L ORDERABLES Final Result [facility] [place] [address] BJ * (ABNORMAL) Urinalysis reflex to microscopic (09/28/2024 3:44 AM COMPUTER TAPE LIBRARIAN) Color, ur Yellow Yellow Clarity, ur Clear Clear [facility] Specific gravity, ur 1.033(H) 1.003 - 1.030 [facility] pH, urine 6.0 [facility] Comment: Interpretive Data U rine pH is affected by diet, medications, systemic acid-base disturbances, and renal tubular function. pH may affect urinary stone formation. For example, urine pH below 6.0 may help reduce the tendency for calcium phosphate stones and pH greater than 6.0 may reduce the tendency for uric acid stone formation. Source: [facility] Current Interpretive Data was last revised on 2017 Protein, ur ql 1+(A) Negative [facility] Glucose, ur ql Negative Negative [facility] Ketones, ur Trace Negative [facility] Bilirubin, ur Negative Negative [facility] Blood, ur 1+(A) Negative [facility] Urobilinogen, ur <2.0 <2.0 mg/dL [facility] Nitrite, ur Negative Negative [facility] Leukocyte esterase, ur Negative Negative [facility] UA reflex comment Reflex to microscopic UA will be performed. [facility] Urine 09/28/2024 3:44 AM COMPUTER TAPE LIBRARIAN 09/28/2024 3:52 AM COMPUTER TAPE LIBRARIAN Torres Armenta MD LAB URINE ORDERABLES Vickie arreola Result [facility] Department [place] [address] * (ABNORMAL) Drugs of Abuse Screen, Urine without Confirmation (09/28/2024 3:44 AM COMPUTER TAPE LIBRARIAN) Pathologist [facility] Amphetamine, ur Not Detected [facility] 500ng/mL Comment: Interpretive Data - Amphetamines: Samples containing greater than 500 ng/mL d-methamphetamine or other cross-reacting amphetamine compounds are reported as positive. Amphetamine immunoassays are subject to significant false positive rates due to cross-reactivity of non-amphetamine drugs. Confirmatory testing required for definitive results. Current Interpretive Data was last reviewed 2023. Barbiturates, ur Not Detected CutOff 200ng/mL [facility] Comment: Interpretive Data - Barbiturates: Samples containing greater than 200 ng/mL secobarbital or other cross-reacting barbiturate compounds are reported as positive. False positive and false negative results are possible. Confirmatory testing required for definitive results. Current Interpretive Data was last reviewed 2023. Benzodiazepines, ur Not Detected CutOff 100ng/mL [facility] Comment: Interpretive Data - Benzodiazepines: Samples containing greater than 100 ng/mL nordiazepam or other cross-reacting compounds are reported as positive. False positive and false negative results are possible. Confirmatory testing required for definitive results. Current Interpretive Data was last reviewed 2023. Cannabinoids, ur Screen Positive, presumptive (A) CutOff 50 ng/mL [facility] Comment: Interpretive Data - Cannabinoids: Samples containing greater than 50 ng/mL delta-9 THC -COOH or other cross- reacting compounds are reported as positive. False positive and false negative results are possible. Confirmatory testing required for definitive results. Current Interpretive Data was last reviewed 2023. Cocaine, ur Not Detected CutOff 150ng/mL [facility] Comment: Interpretive Data - Cocaine: Samples containing greater than 150 ng/mL benzoylecgonine or other cross- reacting compounds are reported as positive. False positive and false negative results are possible. Confirmatory testing required for definitive results. Current Interpretive Data was last reviewed 2023. Fentanyl, Ur Not Detected CutOff 5 ng/mL [facility] Comment: Interpretive Data - Fentanyl: Samples containing greater than 5 ng/mL norfentanyl, fentanyl, or other cross-reacting fentanyl compounds are reported as positive. False positive and false negative results are possible. Confirmatory testing required for definitive results. Current Interpretive Data was last reviewed 2023. Methadone, ur Not Detected CutOff 300ng/mL [facility] Comment: Interpretive Data - Methadone: Samples containing greater than 300 ng/mL d,l-methadone or other cross-reacting compounds are reported as positive. False positive and false negative results are possible. Confirmatory testing required for definitive results. Current Interpretive Data was last reviewed 2023. Opiates, ur Not Detected CutOff 300ng/mL [facility] Comment: Interpretive Data - Opiates: Samples containing greater than 300 ng/mL morphine or other cross-reacting compounds are reported as positive. False positive and false negative results are possible. Confirmatory testing required for definitive results. Current Interpretive Data was last reviewed 2023. Oxycodone, ur Not Detected CutOff 100ng/mL [facility] Comment: Interpretive Data - Oxycodone: Samples containing greater than 100 ng/mL oxycodone or other cross-reacting compounds are reported as positive. False positive and false negative results are possible. Confirmatory testing required for definitive results. Current Interpretive Data was last reviewed 2023. Phencyclidine, ur Not Detected CutOff 25 ng/mL [facility] Comment: Interpretive Data - Phencyclidine: Samples containing greater than 25 ng/mL phencyclidine or other cross-reacting compounds are reported as positive. False positive and false negative results are possible. Confirmatory testing required for definitive results. Current Interpretive Data was last reviewed 2023. Urine Creatinine 460 mg/dL [facility] Comment: Interpretive Data Urine Creatinine: < 10 mg/dL is extremely dilute = or > 10 but < 20 mg/dL is dilute = or > 20 mg/dL is normal Current Interpretive Data was last revised on 2017. Urine 09/28/2024 3:44 AM COMPUTER TAPE LIBRARIAN 09/28/2024 4:00 AM COMPUTER TAPE LIBRARIAN Narrative [facility] - 09/28/2024 4:43 AM COMPUTER TAPE LIBRARIAN Drug of Abuse screening is performed by immunoassay for medical purposes only. This is not to be used for Pain Management purposes. Molly Haynes MD LAB URINE ORDERABL ES Edited Result - Final Performing Organization Address [facility] Co de Phone Number [facility] [place] [address] * (ABNORMAL) Urinalysis, microscopic only (09/28/2024 3:44 AM COMPUTER TAPE LIBRARIAN) WBC, ur 0-5 0 - 5 /HPF RBC, ur 0-2 0 - 2 /HPF [facility] Bacteria, ur 1+(A) [facility] Yeast, ur TRACE [facility] Mucous, ur Present(A) [facility] Amorphous crystals, ur 1+(A) [facility] Urine 09/28/2024 3:44 AM COMPUTER TAPE LIBRARIAN 09/28/2024 3:52 AM COMPUTER TAPE LIBRARIAN us Torres Armenta MD LAB URINE ORDERABLES Vickie l Result Performing Organization Address [facility] de Phone Number [facility] Department [place] [address] * Iron profile w/ IBC (09/28/2024 3:15 AM COMPUTER TAPE LIBRARIAN) Iron See Comment 50 - 150 mcg/dL Comment: Credited; Hemolyzed Specimen Telephone report made to: destiny on 09/29/2024 21:39:47 COMPUTER TAPE LIBRARIAN by rxy . TIBC See Comment 250 - 400 mcg/dL [facility] Comment: Credited; Hemolyzed Specimen Telephone report made to: destiny on 09/29/2024 21:39:47 COMPUTER TAPE LIBRARIAN by rxy . Unable to calculate exact result. Transferrin saturation See Comment 20 - 50 % [facility] Comment: Credited; Hemolyzed Specimen Telephone report made to: destiny on 09/29/2024 21:39:47 COMPUTER TAPE LIBRARIAN by rxy . Unable to calculate exact result. Blood 09/28/2024 3:15 AM COMPUTER TAPE LIBRARIAN 09/28/2024 3:25 AM COMPUTER TAPE LIBRARIAN Destiny Ch MD LAB BLOOD ORDERABLES Final R esult Performing Organization Address [facility] Co de Phone Number [facility] [place] [address] * TSH (09/28/2024 3:15 AM COMPUTER TAPE LIBRARIAN) Thyroid Stimulating Hormone 0.76 0.30 - 4.20 mcIUnit/mL Blood 09/28/2024 3:15 AM COMPUTER TAPE LIBRARIAN 09/28/2024 3:25 AM COMPUTER TAPE LIBRARIAN Destiny Ch MD LAB BLOOD ORDERABLES Final R esult Performing Organization Address [facility] de Phone Number [facility] [place] [address] * Ferritin (09/28/2024 3:15 AM COMPUTER TAPE LIBRARIAN) Pathologist [facility] Ferritin See Comment 30 - 400 ng/mL Comment: Credited; Hemolyzed Specimen Telephone report made to: destiny on 09/29/2024 21:39:02 COMPUTER TAPE LIBRARIAN by RXY . Blood 09/28/2024 3:15 AM COMPUTER TAPE LIBRARIAN 09/28/2024 3:25 AM COMPUTER TAPE LIBRARIAN Destiny Ch MD LAB BLOOD ORDERABLES Final R esult Performing Organization Address [facility] [place] [address] * Vitamin B12 (09/28/2024 3:15 AM COMPUTER TAPE LIBRARIAN) Vitamin B12 307 230 - 1,250 pg/mL Blood 09/28/2024 3:15 AM COMPUTER TAPE LIBRARIAN 09/28/2024 3:25 AM COMPUTER TAPE LIBRARIAN us Destiny Ch MD LAB BLOOD ORDERABLES Final R esult Performing Organization Address City/[facility] Co de Phone Number [facility] [place] [address] * Ethanol (09/28/2024 3:15 AM COMPUTER TAPE LIBRARIAN) Ethanol <10 <=10 mg/dL Comment: Hemolyzed; result may be falsely decreased Interpretive Data Legal limit of intoxication > or = 80 mg/dL Levels > or = 400 mg/dL are potentially TOXIC. Current interpretive data was last revised on 2018. Blood 09/28/2024 3:15 AM COMPUTER TAPE LIBRARIAN 09/28/2024 3:25 AM COMPUTER TAPE LIBRARIAN Molly Haynes MD LAB BLOOD ORDERABL ES Final Result Performing Organization Address [facility] Co de Phone Number [facility] [place] [address] * eGFR (09/28/2024 1:27 AM COMPUTER TAPE LIBRARIAN) Pathologist [facility] eGFR 80 >=60 mL/min/1. 73 m2 Comment: [...] of Race in Diagnosing Kidney Disease, JASN 202). The CKD-EPI equation should not be used for patients with unstable renal function and has not been validated in children and those over 70. Current interpretive data was last reviewed 2021. Blood 09/28/2024 1:27 AM COMPUTER TAPE LIBRARIAN 09/28/2024 1:45 AM COMPUTER TAPE LIBRARIAN Torres Armenta MD LAB BLOOD ORDERABLES Vickie arreola Result [facility] [place] [address] * (ABNORMAL) Differential, auto (09/28/2024 1:27 AM COMPUTER TAPE LIBRARIAN) Neutrophil abs 5.7 1.5 - 6.5 K/cumm Imm gran abs 0.0 0.0 - 0.1 K/cumm [facility] Lymphocyte abs 1.8 0.8 - 3.3 K/cumm [facility] Monocyte abs 1.0(H) 0.2 - 0.8 K/cumm [facility] Eosinophil abs 0.1 0.0 - 0.5 K/cumm [facility] Basophil abs 0.0 0.0 - 0.1 K/cumm [facility] Neutrophil pct 65.2 % [facility] Comment: Interpretive Data Percent cell count reference ranges are not reported, since discordance with absolute values may lead to misinterpretation of CBC data. Current Interpretive Data was last revised on 2017. Imm gran pct 0.5 % [facility] Comment: Interpretive Data Percent cell count reference ranges are not reported, since discordance with absolute values may lead to misinterpretation of CBC data. Current Interpretive Data was last revised on 2017. Lymphocyte pct 21.2 % [facility] Comment: Interpretive Data Percent cell count reference ranges are not reported, since discordance with absolute values may lead to misinterpretation of CBC data. Current Interpretive Data was last revised on 2017. Monocyte pct 11.6 % [facility] Comment: Interpretive Data Percent cell count reference ranges are not reported, since discordance with absolute values may lead to misinterpretation of CBC data. Current Interpretive Data was last revised on 2017. Eosinophil pct 1.4 % [facility] Comment: Interpretive Data Percent cell count reference ranges are not reported, since discordance with absolute values may lead to misinterpretation of CBC data. Current Interpretive Data was last revised on 2017. Basophil pct 0.1 % [facility] Comment: Interpretive Data Percent cell count reference ranges are not reported, since discordance with absolute values may lead to misinterpretation of CBC data. Current Interpretive Data was last revised on 2017. Blood 09/28/2024 1:27 AM COMPUTER TAPE LIBRARIAN 09/28/2024 1:45 AM COMPUTER TAPE LIBRARIAN us Torres Armenta MD LAB BLOOD ORDERABLES Vickie l Result Performing Organization Address [facility] Co de Phone Number [facility] [place] [address] * HIV 1/2 Antibody plus p24 Antigen Blood (09/28/2024 1:27 AM COMPUTER TAPE LIBRARIAN) [facility] HIV 1/2 ab + p24 ag Nonreactive Nonreactive Comment:Nonreactive for HIV- 1 antigen and HIV-1/HIV-2 antibodies. No laboratory evidence of HIV infection. If acute HIV infection is suspected, consider testing for HIV-1 RNA. Current interpretive data was last revised on 22. Blood 09/28/2024 1:27 AM COMPUTER TAPE LIBRARIAN 09/28/2024 1:45 AM COMPUTER TAPE LIBRARIAN us Destiny Ch MD LAB MICROBIOLOGY - GENERAL O RDERABLES Final Result Performing Organization Address City/[facility] Co de Phone Number [facility] [place] [address] * CBC with auto differential (09/28/2024 1:27 AM COMPUTER TAPE LIBRARIAN) [facility] WBC 8.7 3.8 - 9.9 K/cumm Hgb 13.9 13.0 - 17.5 g/dL [facility] Hct 42.6 38.9 - 50.3 % [facility] Plt 270 150 - 400 K/cumm [facility] MPV 10.0 9.1 - 12.3 fL [facility] RBC 4.87 4.30 - 5.80 M/cumm [facility] MCV 87.5 81.3 - 96.4 fL [facility] MCH 28.5 27.1 - 33.3 pg [facility] MCHC 32.6 32.3 - 35.7 g/dL [facility] RDW CV 13.2 11.1 - 14.9 % [facility] RDW SD 42.5 35.7 - 48.1 fL [facility] NRBC abs 0.00 0.00 - 0.01 K/cumm [facility] Blood Venous blood specimen / Unknown 09/28/2024 1:27 AM COMPUTER TAPE LIBRARIAN 09/28/2024 1:45 AM COMPUTER TAPE LIBRARIAN us Torres Armenta MD LAB BLOOD ORDERABLES Vickie l Result Performing Organization Address City/[facility]/ZIP Co de Phone Number [facility] [place] [address] * RPR Blood (09/28/2024 1:27 AM COMPUTER TAPE LIBRARIAN) RPR Nonreactive Nonreactive Blood 09/28/2024 1:27 AM COMPUTER TAPE LIBRARIAN 09/28/2024 1:50 AM COMPUTER TAPE LIBRARIAN Destiny Ch MD LAB MICROBIOLOGY - GENERAL O RDERABLES Final Result Performing Organization Address City/[facility]/ZIP Co de Phone Number [facility] [place] [address] * Lipase (09/28/2024 1:27 AM COMPUTER TAPE LIBRARIAN) Lipase 27 10 - 99 Units/L Blood Venous blood specimen / Unknown 09/28/2024 1:27 AM COMPUTER TAPE LIBRARIAN 09/28/2024 1:45 AM COMPUTER TAPE LIBRARIAN us Torres Armenta MD LAB BLOOD ORDERABLES Vickie l Result [facility] [place] [address] * Lipid panel (09/28/2024 1:27 AM COMPUTER TAPE LIBRARIAN) Cholesterol 163 30 - 199 mg/dL Comment: [...] revised on 2018. Triglycerides 75 <=149 mg/dL [facility] Comment: Interpretive Data Ages < or = [...] revised on 2018. HDL 57 >=40 mg/dL [facility] Comment: Interpretive Data Ages < or = [...] on 2018. LDL, calculated 92 <=129 mg/dL [facility] Comment: Interpretive Data Ages < or = [...] Patton et al. REVA Cardiol. 2020 November 30;5(5):540-548. doi: [email or web address] Current Interpretive Data was last revised on 2024. Non-HDL Cholesterol 106 mg/dL [facility] Comment: Interpretive Data Ages < or = [...] last revised on 2018. Chol/HDL ratio 3 [facility] Blood 09/28/2024 1:27 AM COMPUTER TAPE LIBRARIAN 09/28/2024 1:45 AM COMPUTER TAPE LIBRARIAN us Destiny Ch MD LAB BLOOD ORDERABLES Final R esult [facility] Department [place] [address] * Comprehensive metabolic panel (09/28/2024 1:27 AM COMPUTER TAPE LIBRARIAN) Sodium 143 135 - 145 mmol/L Potassium, pl 4.6 3.3 - 4.9 mmol/L [facility] Chloride 106 97 - 110 mmol/L [facility] CO2 29 22 - 32 mmol/L [facility] Anion gap 8 2 - 15 mmol/L [facility] BUN 10 6 - 25 mg/dL [facility] Creatinine 1.22 0.80 - 1.30 mg/dL [facility] Glucose 100 70 - 199 mg/dL [facility] Comment: Interpretive Data Fasting glucose >/= [...] 2022. Calcium 9.7 8.5 - 10.3 mg/dL [facility] Bilirubin, total 0.2 0.1 - 1.2 mg/dL [facility] Protein, pl 7.7 6.5 - 8.5 g/dL [facility] Albumin 3.9 3.5 - 5.0 g/dL [facility] Alk phos 74 40 - 130 Units/L [facility] ALT 22 7 - 55 Units/L [facility] AST 24 10 - 50 Units/L [facility] Blood 09/28/2024 1:27 AM COMPUTER TAPE LIBRARIAN 09/28/2024 1:45 AM COMPUTER TAPE LIBRARIAN us Torres Armenta MD LAB BLOOD ORDERABLES Vickie arreola Result [facility] Department [place] [address] * Respiratory pathogen panel Nasopharyngeal (09/27/2024 10:38 PM COMPUTER TAPE LIBRARIAN) Pathologist [facility] Influenza A RNA Not Detected Not Detected Influenza B RNA Not Detected Not Detected [facility] RSV RNA Not Detected Not Detected [facility] COVID-19 RNA Not Detected Not Detected [facility] Coronavirus 229E RNA Not Detected Not Detected [facility] Coronavirus HKU1 RNA Not Detected Not Detected [facility] Coronavirus NL63 RNA Not Detected Not Detected [facility] Coronavirus OC43 RNA Not Detected Not Detected [facility] Adenovirus DNA Not Detected Not Detected [facility] Metapneumovirus RNA Not Detected Not Detected [facility] Rhinovirus/Enterov irus RNA Not Detected Not Detected [facility] Parainfluenza 1 RNA Not Detected Not Detected [facility] Parainfluenza 2 RNA Not Detected Not Detected [facility] Parainfluenza 3 RNA Not Detected Not Detected [facility] Parainfluenza 4 RNA Not Detected Not Detected [facility] B. pertussis DNA Not Detected Not Detected [facility] B. parapertussis DNA Not Detected Not Detected [facility] C. pneumoniae DNA Not Detected Not Detected [facility] M. pneumoniae DNA Not Detected Not Detected [facility] Nasopharyngeal 09/27/2024 10 :38 PM COMPUTER TAPE LIBRARIAN 09/28/2024 1:00 AM COMPUTER TAPE LIBRARIAN Narrative [facility] - 09/28/2024 2:21 AM COMPUTER TAPE LIBRARIAN Is the Patient experiencing symptoms consistent with COVID?->Yes Surveillance testing for transplant patient?->No Interpretive Data The OpenFin FilmArray Respiratory Panel (RP2.1) assay is a [...] assay has FDA clearance for testing of CENSUS ENUMERATOR swabs. The performance of additional specimen types has been assessed by the performing laboratory. The performance characteristics of this assay have been determined by [facility]. Current interpretive data was last revised on 22. Torres Armenta MD LAB MICROBIOLOGY - GENERA L ORDERABLES Final Result [facility] [place] [address] * Troponin I high-sensitivity 2-hour (09/19/2024 5:19 PM COMPUTER TAPE LIBRARIAN) Trop I hs 8 <=35 ng/L Comment: Interpretive Data For further hscTnI resources including the diagnostic algorithm and an aid in interpretation, copy and paste this link: https://bjhlab.testcatalog.org/show/hsTrop-1 Current Interpretive Data last revised 2020. Trop I hs delta 1 ng/L [facility] Trop I hs interp Insignificant [facility] Blood 09/19/2024 5:19 PM COMPUTER TAPE LIBRARIAN 09/19/2024 5:36 PM COMPUTER TAPE LIBRARIAN us Ole Kay MD LAB BLOOD ORDERABLES Final Result [facility] [place] [address] * XR Chest Pa Lateral 2 Views (09/19/2024 3:06 PM COMPUTER TAPE LIBRARIAN) Anatomical Region Laterality Modality Body, Chest N/A Computed Radiogr aphy 09/19/2024 3:41 PM COMPUTER TAPE LIBRARIAN Impressions 09/19/2024 4:08 PM COMPUTER TAPE LIBRARIAN Comparison with chest radiograph dated 09/06/2024. No pulmonary consolidation, pleural effusion, or pneumothorax. Cardiomediastinal silhouette is normal. Dictated by: Kolby Garvey M.D. The radiology attending physician has personally reviewed this study, and had reviewed and/or edited this written report and agrees with it. Electronically signed by: Rory Castellano M.D. Narrative 09/19/2024 4:08 PM COMPUTER TAPE LIBRARIAN EXAMINATION: 2 view chest radiograph Procedure Note [...] * (ABNORMAL) ECG 12-LEAD (09/19/2024 3:00 PM COMPUTER TAPE LIBRARIAN) Narrative [facility] - 09/19/2024 3:00 PM COMPUTER TAPE LIBRARIAN Irina Yeager MD 09/19/2024 3:01 PM ECG [...] in V2, v3,v4,v5,v6, avf, II, III With NH depression in avF, I,II, v4, v5. Similar [...] in V2, v3,v4,v5,v6, avf, II, III With NH depression in avF, I,II, v4, v5. Similar to prior EKG on 12/05/23. Acute pericarditis concern Irina Yeager MD 09/19/24 1501 us Kenny Curran MD ECG ORDERABLES Final R esult [facility] * Troponin I high-sensitivity series (baseline, 2hr, 4hr, 6hr) (09/19/2024 2:56 PM COMPUTER TAPE LIBRARIAN) Trop I hs 7 <=35 ng/L Comment: Interpretive Data For further hscTnI resources including the diagnostic algorithm and an aid in interpretation, copy and paste this link: https://bjhlab.testcatalog.org/show/hsTrop-1 Current Interpretive Data last revised 2020. Blood 09/19/2024 2:56 PM COMPUTER TAPE LIBRARIAN 09/19/2024 3:25 PM COMPUTER TAPE LIBRARIAN us Kenny Curran MD LAB BLOOD ORDERABLES Fi nal Result Performing Organization Address City/[facility] Co de Phone Number [facility] [place] [address] * eGFR (09/19/2024 2:56 PM COMPUTER TAPE LIBRARIAN) eGFR >90 >=60 mL/min/1. 73 m2 Comment: [...] last reviewed 2021. Blood 09/19/2024 2:56 PM COMPUTER TAPE LIBRARIAN 09/19/2024 3:25 PM COMPUTER TAPE LIBRARIAN us Kenny Curran MD LAB BLOOD ORDERABLES Fi nal Result Performing Organization Address City/[facility]/ZIP Co de Phone Number [facility] [place] [address] * Differential, auto (09/19/2024 2:56 PM COMPUTER TAPE LIBRARIAN) Neutrophil abs 2.5 1.5 - 6.5 K/cumm Imm gran abs 0.0 0.0 - 0.1 K/cumm [facility] Lymphocyte abs 1.7 0.8 - 3.3 K/cumm [facility] Monocyte abs 0.5 0.2 - 0.8 K/cumm [facility] Eosinophil abs 0.1 0.0 - 0.5 K/cumm [facility] Basophil abs 0.0 0.0 - 0.1 K/cumm [facility] Neutrophil pct 50.3 % [facility] Comment: Interpretive Data Percent cell count reference ranges are not reported, since discordance with absolute values may lead to misinterpretation of CBC data. Current Interpretive Data was last revised on 2017. Imm gran pct 0.2 % [facility] Comment: Interpretive Data Percent cell count reference ranges are not reported, since discordance with absolute values may lead to misinterpretation of CBC data. Current Interpretive Data was last revised on 2017. Lymphocyte pct 35.7 % [facility] Comment: Interpretive Data Percent cell count reference ranges are not reported, since discordance with absolute values may lead to misinterpretation of CBC data. Current Interpretive Data was last revised on 2017. Monocyte pct 10.7 % [facility] Comment: Interpretive Data Percent cell count reference ranges are not reported, since discordance with absolute values may lead to misinterpretation of CBC data. Current Interpretive Data was last revised on 2017. Eosinophil pct 2.5 % [facility] Comment: Interpretive Data Percent cell count reference ranges are not reported, since discordance with absolute values may lead to misinterpretation of CBC data. Current Interpretive Data was last revised on 2017. Basophil pct 0.6 % [facility] Comment: Interpretive Data Percent cell count reference ranges are not reported, since discordance with absolute values may lead to misinterpretation of CBC data. Current Interpretive Data was last revised on 2017. Blood 09/19/2024 2:56 PM COMPUTER TAPE LIBRARIAN 09/19/2024 3:25 PM COMPUTER TAPE LIBRARIAN us Kenny Curran MD LAB BLOOD ORDERABLES Fi nal Result [facility] [place] [address] * (ABNORMAL) CBC with auto differential (09/19/2024 2:56 PM COMPUTER TAPE LIBRARIAN) [facility] WBC 4.9 3.8 - 9.9 K/cumm Hgb 12.8(L) 13.0 - 17.5 g/dL [facility] Hct 40.5 38.9 - 50.3 % [facility] Plt 271 150 - 400 K/cumm [facility] MPV 9.7 9.1 - 12.3 fL [facility] RBC 4.63 4.30 - 5.80 M/cumm [facility] MCV 87.5 81.3 - 96.4 fL [facility] MCH 27.6 27.1 - 33.3 pg [facility] MCHC 31.6(L) 32.3 - 35.7 g/dL [facility] RDW CV 13.2 11.1 - 14.9 % [facility] RDW SD 41.6 35.7 - 48.1 fL [facility] NRBC abs 0.02(H) 0.00 - 0.01 K/cumm [facility] Blood Venous blood specimen / Unknown 09/19/2024 2:56 PM COMPUTER TAPE LIBRARIAN 09/19/2024 3:25 PM COMPUTER TAPE LIBRARIAN us Kenny Curran MD LAB BLOOD ORDERABLES Fi nal Result [facility] [place] [address] * Comprehensive metabolic panel (09/19/2024 2:56 PM COMPUTER TAPE LIBRARIAN) [facility] Sodium 141 135 - 145 mmol/L Potassium, pl 3.9 3.3 - 4.9 mmol/L [facility] Chloride 106 97 - 110 mmol/L [facility] CO2 26 22 - 32 mmol/L [facility] Anion gap 9 2 - 15 mmol/L [facility] BUN 6 6 - 25 mg/dL [facility] Creatinine 1.00 0.80 - 1.30 mg/dL [facility] Glucose 93 70 - 199 mg/dL [facility] Comment: Interpretive Data Fasting glucose >/= [...] 2022. Calcium 9.1 8.5 - 10.3 mg/dL [facility] Bilirubin, total 0.2 0.1 - 1.2 mg/dL [facility] Protein, pl 7.1 6.5 - 8.5 g/dL [facility] Albumin 4.2 3.5 - 5.0 g/dL [facility] Alk phos 69 40 - 130 Units/L [facility] ALT 32 7 - 55 Units/L [facility] AST 22 10 - 50 Units/L [facility] Blood 09/19/2024 2:56 PM COMPUTER TAPE LIBRARIAN 09/19/2024 3:25 PM COMPUTER TAPE LIBRARIAN Kenny Curran MD LAB BLOOD ORDERABLES Fi nal Result [facility] [place] [address] * eGFR (09/14/2024 4:26 AM COMPUTER TAPE LIBRARIAN) eGFR >90 >=60 mL/min/1. 73 m2 Comment: [...] of Race in Diagnosing Kidney Disease, JASN 202). The CKD-EPI equation should not be used for patients with unstable renal function and has not been validated in children and those over 70. Current interpretive data was last reviewed 2021. Blood 09/14/2024 4:26 AM COMPUTER TAPE LIBRARIAN 09/14/2024 4:45 AM COMPUTER TAPE LIBRARIAN us Qi Cherry MD LAB BLOOD ORDERABLES Final R esult Performing Organization Address City/[facility]/ZIP Co de Phone Number [facility] [place] [address] * (ABNORMAL) CBC without differential (09/14/2024 4:26 AM COMPUTER TAPE LIBRARIAN) WBC 6.1 3.8 - 9.9 K/cumm Hgb 12.0(L) 13.0 - 17.5 g/dL [facility] Hct 37.2(L) 38.9 - 50.3 % [facility] Plt 218 150 - 400 K/cumm [facility] MPV 10.0 9.1 - 12.3 fL [facility] RBC 4.28(L) 4.30 - 5.80 M/cumm [facility] MCV 86.9 81.3 - 96.4 fL [facility] MCH 28.0 27.1 - 33.3 pg [facility] MCHC 32.3 32.3 - 35.7 g/dL [facility] RDW CV 13.2 11.1 - 14.9 % [facility] RDW SD 41.2 35.7 - 48.1 fL [facility] NRBC abs 0.00 0.00 - 0.01 K/cumm [facility] Blood 09/14/2024 4:26 AM COMPUTER TAPE LIBRARIAN 09/14/2024 4:45 AM COMPUTER TAPE LIBRARIAN us Qi Cherry MD LAB BLOOD ORDERABLES Final R esult [facility] [place] [address] * Lipase (09/14/2024 4:26 AM COMPUTER TAPE LIBRARIAN) Pathologist [facility] Lipase 39 10 - 99 Units/L Blood 09/14/2024 4:26 AM COMPUTER TAPE LIBRARIAN 09/14/2024 4:45 AM COMPUTER TAPE LIBRARIAN Qi Cherry MD LAB BLOOD ORDERABLES Final R esult [facility] [place] [address] * (ABNORMAL) Comprehensive metabolic panel (09/14/2024 4:26 AM COMPUTER TAPE LIBRARIAN) [facility] Sodium 142 135 - 145 mmol/L Potassium, pl 4.4 3.3 - 4.9 mmol/L [facility] Chloride 108 97 - 110 mmol/L [facility] CO2 27 22 - 32 mmol/L [facility] Anion gap 7 2 - 15 mmol/L [facility] BUN 12 6 - 25 mg/dL [facility] Creatinine 1.08 0.80 - 1.30 mg/dL [facility] Glucose 110 70 - 199 mg/dL [facility] Comment: Interpretive Data Fasting glucose >/= [...] 2022. Calcium 8.4(L) 8.5 - 10.3 mg/dL [facility] Bilirubin, total <0.2 0.1 - 1.2 mg/dL [facility] Protein, pl 6.1(L) 6.5 - 8.5 g/dL [facility] Albumin 3.4(L) 3.5 - 5.0 g/dL [facility] Alk phos 65 40 - 130 Units/L [facility] ALT 27 7 - 55 Units/L [facility] AST 25 10 - 50 Units/L [facility] Blood 09/14/2024 4:26 AM COMPUTER TAPE LIBRARIAN 09/14/2024 4:45 AM COMPUTER TAPE LIBRARIAN us Qi Cherry MD LAB BLOOD ORDERABLES Final R esult [facility] [place] [address] * (ABNORMAL) Urinalysis reflex to microscopic and culture Urine (09/14/2024 1:16 AM COMPUTER TAPE LIBRARIAN) Color, ur Yellow Yellow Clarity, ur Clear Clear [facility] Specific gravity, ur 1.031(H) 1.003 - 1.030 [facility] [facility] pH, urine 6.5 [facility] Comment: Interpretive Data U rine pH is affected by diet, medications, systemic acid-base disturbances, and renal tubular function. pH may affect urinary stone formation. For example, urine pH below 6.0 may help reduce the tendency for calcium phosphate stones and pH greater than 6.0 may reduce the tendency for uric acid stone formation. Source: [facility] Current Interpretive Data was last revised on 2017 Protein, ur ql 1+(A) Negative [facility] Glucose, ur ql Negative Negative [facility] Ketones, ur Negative Negative [facility] Bilirubin, ur Negative Negative [facility] Blood, ur 1+(A) Negative [facility] Urobilinogen, ur <2.0 <2.0 mg/dL [facility] Nitrite, ur Negative Negative [facility] Leukocyte esterase, ur Negative Negative [facility] UA reflex comment Reflex to microscopic UA will be performed. [facility] Urine 09/14/2024 1:16 AM COMPUTER TAPE LIBRARIAN 09/14/2024 1:25 AM COMPUTER TAPE LIBRARIAN us Qi Cherry MD LAB MICROBIOLOGY - GENERAL O RDERABLES Final Result Performing Organization Address [facility] de Phone Number [facility] [place] [address] * (ABNORMAL) Urinalysis, microscopic only (09/14/2024 1:16 AM COMPUTER TAPE LIBRARIAN) WBC, ur 0-5 0 - 5 /HPF RBC, ur 11-20(A) 0 - 2 /HPF [facility] Bacteria, ur Trace(A) [facility] Mucous, ur Present(A) [facility] Hyaline casts, ur 1-5 0 - 10 /LPF [facility] Culture Reflex Comment Reflex conditions for urine culture (WBC >10) not met. [facility] Urine 09/14/2024 1:16 AM COMPUTER TAPE LIBRARIAN 09/14/2024 1:25 AM COMPUTER TAPE LIBRARIAN Qi Cherry MD LAB URINE ORDERABLES Final R esult Performing Organization Address [facility] de Phone Number [facility] Department [place] [address] * POCUS Cardiac (09/07/2024 3:41 AM COMPUTER TAPE LIBRARIAN) Anatomical Region Laterality Modality Other 09/07/2024 2:37 AM COMPUTER TAPE LIBRARIAN Narrative 09/07/2024 5:32 AM COMPUTER TAPE LIBRARIAN Performed by: Kolby Dominguez Cardiac: Exam type: [...] Troponin I high-sensitivity 4-hour (09/07/2024 2:19 AM COMPUTER TAPE LIBRARIAN) Trop I hs 12 <=35 ng/L Comment: Interpretive Data For further hscTnI resources including the diagnostic algorithm and an aid in interpretation, copy and paste this link: https://bjhlab.testcatalog.org/show/hsTrop-1 Current Interpretive Data last revised 2020. Trop I hs delta See Comment ng/L PRISCILLA BOUCHER Comment:Inappropriate collec tion time to report a delta. Trop I hs pct delta See Comment % PRISCILLA BOUCHER Comment:Inappropriate collec tion time to report a delta. Trop I hs interp See Comment PRISCILLA BOUCHER Comment:Inappropriate collec tion time to report a delta. Blood 09/07/2024 2:19 AM COMPUTER TAPE LIBRARIAN 09/07/2024 2:40 AM COMPUTER TAPE LIBRARIAN us [place] Yang MD LAB BLOOD ORDERABLES Final R esult PRISCILLA BOUCHER [facility] Department [place] [address] * Troponin I high-sensitivity 2-hour (09/06/2024 10:53 PM COMPUTER TAPE LIBRARIAN) Trop I hs 12 <=35 ng/L Comment: Interpretive Data For further hscTnI resources including the diagnostic algorithm and an aid in interpretation, copy and paste this link: https://bjhlab.testcatalog.org/show/hsTrop-1 Current Interpretive Data last revised 2020. Trop I hs delta 0 ng/L CERNER BJ Trop I hs interp Insignificant CERNER BJ H Blood 09/06/2024 10:5 3 PM COMPUTER TAPE LIBRARIAN 09/06/2024 11:08 PM COMPUTER TAPE LIBRARIAN us Florida Yang MD LAB BLOOD ORDERABLES Final R esult Performing Organization Address City/[facility]/ZIP Co de Phone Number [facility] [place] [address] * ECG 12-LEAD (09/06/2024 9:44 PM COMPUTER TAPE LIBRARIAN) Narrative [facility] - 09/06/2024 9:44 PM COMPUTER TAPE LIBRARIAN Heriberto Herrera MD 09/06/2024 9:45 PM ECG [...] ischemia. History of pericarditis. Heriberto Herrera MD 09/06/243 us Wilmer Muro MD ECG ORDERABLES Final Result [facility] * Troponin I high-sensitivity series (baseline, 2hr, 4hr, 6hr) (09/06/2024 9:13 PM COMPUTER TAPE LIBRARIAN) Trop I hs 12 <=35 ng/L Comment: Interpretive Data For further hscTnI resources including the diagnostic algorithm and an aid in interpretation, copy and paste this link: https://bjhlab.testcatalog.org/show/hsTrop-1 Current Interpretive Data last revised 2020. Blood 09/06/2024 9:13 PM COMPUTER TAPE LIBRARIAN 09/06/2024 9:55 PM COMPUTER TAPE LIBRARIAN Wilmer Muro MD LAB BLOOD ORDERABLES Final Re sult Performing Organization Address City/[facility]/ZIP Co de Phone Number PRISCILLA PARK [facility] Department [place] [address] * eGFR (09/06/2024 9:13 PM COMPUTER TAPE LIBRARIAN) eGFR >90 >=60 mL/min/1. 73 m2 Comment: [...] last reviewed 2021. Blood 09/06/2024 9:13 PM COMPUTER TAPE LIBRARIAN 09/06/2024 9:55 PM COMPUTER TAPE LIBRARIAN us Wilmer Muro MD LAB BLOOD ORDERABLES Final Re sult PRISCILLA [facility] [place] [address] * Differential, auto (09/06/2024 9:13 PM COMPUTER TAPE LIBRARIAN) Neutrophil abs 3.6 1.5 - 6.5 K/cumm Imm gran abs 0.0 0.0 - 0.1 K/cumm [facility] Lymphocyte abs 2.0 0.8 - 3.3 K/cumm CERNER [facility] Monocyte abs 0.6 0.2 - 0.8 K/cumm [facility]ER [facility] Eosinophil abs 0.1 0.0 - 0.5 K/cumm CERNER [facility] Basophil abs 0.0 0.0 - 0.1 K/cumm [facility] Neutrophil pct 57.4 % [facility] Comment: Interpretive Data Percent cell count reference ranges are not reported, since discordance with absolute values may lead to misinterpretation of CBC data. Current Interpretive Data was last revised on 2017. Imm gran pct 0.3 % [facility] Comment: Interpretive Data Percent cell count reference ranges are not reported, since discordance with absolute values may lead to misinterpretation of CBC data. Current Interpretive Data was last revised on 2017. Lymphocyte pct 30.9 % [facility] Comment: Interpretive Data Percent cell count reference ranges are not reported, since discordance with absolute values may lead to misinterpretation of CBC data. Current Interpretive Data was last revised on 2017. Monocyte pct 9.1 % [facility] Comment: Interpretive Data Percent cell count reference ranges are not reported, since discordance with absolute values may lead to misinterpretation of CBC data. Current Interpretive Data was last revised on 2017. Eosinophil pct 2.0 % [facility] Comment: Interpretive Data Percent cell count reference ranges are not reported, since discordance with absolute values may lead to misinterpretation of CBC data. Current Interpretive Data was last revised on 2017. Basophil pct 0.3 % [facility] Comment: Interpretive Data Percent cell count reference ranges are not reported, since discordance with absolute values may lead to misinterpretation of CBC data. Current Interpretive Data was last revised on 2017. Blood 09/06/2024 9:13 PM COMPUTER TAPE LIBRARIAN 09/06/2024 9:56 PM COMPUTER TAPE LIBRARIAN Wilmer Muro MD LAB BLOOD ORDERABLES Final Re sult PRISCILLA [facility] [place] [address] * (ABNORMAL) CBC with auto differential (09/06/2024 9:13 PM COMPUTER TAPE LIBRARIAN) WBC 6.4 3.8 - 9.9 K/cumm Hgb 13.9 13.0 - 17.5 g/dL [facility] Hct 43.6 38.9 - 50.3 % [facility] Plt 267 150 - 400 K/cumm [facility] MPV 10.1 9.1 - 12.3 fL [facility] RBC 4.94 4.30 - 5.80 M/cumm [facility] MCV 88.3 81.3 - 96.4 fL [facility] MCH 28.1 27.1 - 33.3 pg [facility] MCHC 31.9(L) 32.3 - 35.7 g/dL [facility] RDW CV 13.2 11.1 - 14.9 % [facility] RDW SD 42.4 35.7 - 48.1 fL [facility] NRBC abs 0.00 0.00 - 0.01 K/cumm [facility] Blood Venous blood specimen / Unknown 09/06/2024 9:13 PM COMPUTER TAPE LIBRARIAN 09/06/2024 9:56 PM COMPUTER TAPE LIBRARIAN Wilmer Muro MD LAB BLOOD ORDERABLES Final [facility] [place] [address] * (ABNORMAL) Comprehensive metabolic panel (09/06/2024 9:13 PM COMPUTER TAPE LIBRARIAN) Pathologist [facility] Sodium 147(H) 135 - 145 mmol/L Potassium, pl 4.1 3.3 - 4.9 mmol/L [facility] Chloride 111(H) 97 - 110 mmol/L [facility] CO2 28 22 - 32 mmol/L [facility] Anion gap 8 2 - 15 mmol/L [facility] BUN 9 6 - 25 mg/dL [facility] Creatinine 1.05 0.80 - 1.30 mg/dL [facility] Glucose 91 70 - 199 mg/dL [facility] Comment: Interpretive Data Fasting glucose >/= [...] 2022. Calcium 9.5 8.5 - 10.3 mg/dL [facility] Bilirubin, total 0.2 0.1 - 1.2 mg/dL [facility] Protein, pl 7.7 6.5 - 8.5 g/dL [facility] Albumin 4.2 3.5 - 5.0 g/dL [facility] Alk phos 75 40 - 130 Units/L [facility] ALT 20 7 - 55 Units/L [facility] AST 26 10 - 50 Units/L [facility] Blood 09/06/2024 9:13 PM COMPUTER TAPE LIBRARIAN 09/06/2024 9:55 PM COMPUTER TAPE LIBRARIAN us Wilmer Muro MD LAB BLOOD ORDERABLES Final Re sult [facility] Department [place] [address] * XR Finger Right 2 or More Views (09/06/2024 8:43 PM COMPUTER TAPE LIBRARIAN) Anatomical Region Laterality Modality Upper Extremities, Hand, Fingers Right Computed Radiography 09/06/2024 8:45 PM COMPUTER TAPE LIBRARIAN Impressions 09/06/2024 8:57 PM COMPUTER TAPE LIBRARIAN No acute fracture or dislocation. Joint spaces are preserved. Dictated by: Jay Rios MD The radiology attending physician has personally reviewed this study, and had reviewed and/or edited this written report and agrees with it. Electronically signed by: Mckenna Spencer M.D. Narrative 09/06/2024 8:57 PM COMPUTER TAPE LIBRARIAN EXAMINATION: XR FINGER RIGHT 2 OR MORE [...] Pa Lateral 2 Views (09/06/2024 8:43 PM COMPUTER TAPE LIBRARIAN) Anatomical Region Laterality Modality Body, Chest N/A Computed Radiogr aphy 09/06/2024 8:44 PM COMPUTER TAPE LIBRARIAN Impressions 09/06/2024 8:56 PM COMPUTER TAPE LIBRARIAN FINDINGS/IMPRESSION: 2 views of the chest are [...] Mckenna Spencer M.D. Narrative 09/06/2024 8:56 PM COMPUTER TAPE LIBRARIAN EXAMINATION: XR CHEST PA LATERAL 2 VIEWS [...] Resul t from Last 3 Months Insurance [facility] Advance Directives For more information, please contact: [phone] * Full Code (Latest Code Status on [...] 7:18 AM 05/25/2023 5:25 PM Care Teams Motor Coach Driver Relationship Specialty Start Date End Date No, Physician PCP - General 11/30/20
--- OUTSIDE RECORDS SUMMARY | 2024-10-31 14:32 | XMS_ITS ---
Author Organization [facility] Address [address] [place] [address] Care Team Providers Care Air Hole Driller Name Role Phone Rocío Castillo Primary Care Provider Social History Sex Assigned At : Social History Observation Description Sex Assigned At Male Encounters Encounter Location Date Provider Diagnosis [address] [place] [address] 10/16/2024 Rocío Castillo Plan Of Treatment No Information Progress Notes * Flaco BESTDOB:[birth year] (34 yo M)Acc No.[id number]:10/16/2024 Patient: Puma REYESFlaco :1990 A ge:34 Y S ex:Male Address:[address] [place] [address], [id number] * true * Date: Generated for Roseann hernandez/Marcos/eTransmitting on: 0 10/31/2024 02:31 PM CDT
--- OUTSIDE RECORDS SUMMARY | 2024-10-31 14:32 | XMS_ITS | Clinical Summary ---
Author Organization [facility] Address Formerly [facility], [id number] [place] [address] Care Team Providers Care Public Safety Teacher Name Role Phone None, Provider MD Primary [...] a day. 60 tablet 3 10/08/19 25 Discontinu ed(Formula ry change) Active Problems Problem Noted Date Diagnosed Date Pericarditis (HHS/HCC) 06/16/2023 Acute blood loss anemia 06/16/2023 Hematemesis with nausea 06/16/2023 Encounters Date Type Department Care Team Description 10/07/2024 1:49 AM TELETYPESETTER OPERATOR - 10/07/2024 3:26 AM TELETYPESETTER OPERATOR Emergency [facility] [place] [address] Ian Persaud MD Abdominal Pain Discharge Disposition: Home or Self Care (Routine Discharge) 10/07/2024 Travel 09/12/2024 11:01 PM TELETYPESETTER OPERATOR - 09/13/2024 2:56 AM TELETYPESETTER OPERATOR Emergency [facility] [place] [address] Ian Persaud MD Chest Pain Discharge Disposition: Home or Self Care (Routine Discharge) 09/12/2024 Travel from Last 3 Months Social History Tobacco Use Types Packs/Day Years Used Date Smoking Tobacco: Former Cigarettes Cigars Smokeless Tobacco: Never Tobacco Cessation:Counseling Given: Not Answered Alcohol Use Standard Drinks/Week Comments Yes 0 (1 standard drink = 0.6 oz pur e alcohol) [facility] Utilities Answer Date Recorded In the past 12 months has e [employer], gas, oil, or water company threatened to [...] week 06/17/2023 How often do you attend chur ch or yarsanism services? 1 to 4 times per year 06/17/2023 Do you belong to any clubs o r organizations such as anglican groups, unions, fraternal or athletic groups, or [...] Recorded Patient Health Questionnaire-2 Score 0 06/17/2023 [facility] - [...] place to sleep or slept in a prison (including now)? No 06/17/2023 Housing Stability Vital [...] Sex Assigned at Male 09/12/2024 10:51 PM TELETYPESETTER OPERATOR Legal Sex Male 4:43 PM CDT Gender Identity Not on file Sexual Orientation Not on file Last Filed Vital Signs Vital Sign Reading Time Taken Comments Blood Pressure 151/92 10/07/2024 1:22 AM TELETYPESETTER OPERATOR Pulse 102 10/07/2024 1:22 AM TELETYPESETTER OPERATOR Temperature 37.2 C (98.9 F) 10/07/2024 1:22 AM TELETYPESETTER OPERATOR Respiratory Rate 18 10/07/2024 1:22 AM TELETYPESETTER OPERATOR Oxygen Saturation 100% 10/07/2024 1:22 AM TELETYPESETTER OPERATOR Inhaled Oxygen Concentration - - Weight 72.6 kg (160 lb) 10/07/2024 1:22 AM TELETYPESETTER OPERATOR Height 180.3 cm (5' 11 ) 10/07/2024 1:22 AM TELETYPESETTER OPERATOR Body Mass Index 22.32 10/07/2024 1:22 AM TELETYPESETTER OPERATOR Plan of Treatment Health Maintenance Due Date Last Done Comments Annual Physical 1994 Hepatitis B Vaccines (3 of 3 - 3-dose series) 11/16/2000 09/21/2000, 04/04/1996 DTaP, Tdap and Td Vaccines (5 - Tdap) 2002 04/04/1996, 08/20/1992, 06/20/1992, Additional history exists Hepatitis C 2009 COVID-19 Vaccine ( season) 2024 HPV Vaccines Aged Out No longer [...] discharge from hospital Lifestyle No 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, BUSINESS ANALYST PROJECT MANAGER Procedures Procedure Name Priority Date/Time Associated Diagnosis Comments CT ABD+PEL W CON STAT 10/07/2024 2:23 AM TELETYPESETTER OPERATOR LIPASE STAT 10/07/2024 2:04 AM TELETYPESETTER OPERATOR COMPREHENSIVE METABOLIC PANEL STAT 10/07/2024 2:04 AM TELETYPESETTER OPERATOR CBC W/DIFF AUTOMATED STAT 10/07/2024 2:04 AM TELETYPESETTER OPERATOR ECG 12-LEAD STAT 09/13/2024 1:59 AM TELETYPESETTER OPERATOR TROPONIN, QUANT STAT 09/13/2024 1:50 AM TELETYPESETTER OPERATOR XR CHEST PORTABLE STAT 09/12/2024 11: 16 PM TELETYPESETTER OPERATOR C-REACTIVE PROTEIN STAT 09/12/2024 10 :59 PM TELETYPESETTER OPERATOR TROPONIN, QUANT STAT 09/12/2024 10:59 PM TELETYPESETTER OPERATOR COMPREHENSIVE METABOLIC PANEL STAT 09/12/2024 10:59 PM TELETYPESETTER OPERATOR CBC W/DIFF AUTOMATED STAT 09/12/2024 10:59 PM TELETYPESETTER OPERATOR SED RATE, ERYTHROCYTE (ESR) STAT 09/12/2024 10:53 PM TELETYPESETTER OPERATOR ECG 12-LEAD STAT 09/12/2024 10:52 PM TELETYPESETTER OPERATOR from Last 3 Months Results * CT ABD+PEL W IV CON ONLY (10/07/2024 2:23 AM TELETYPESETTER OPERATOR) Anatomical Region Laterality Modality Abdomen Computed Tomogra phy 10/07/2024 2:25 AM TELETYPESETTER OPERATOR Impressions 10/07/2024 2:32 AM TELETYPESETTER OPERATOR IMPRESSION: 1. No definite acute CT [...] 10/07/2024 2:25 AM Narrative 10/07/2024 2:32 AM TELETYPESETTER OPERATOR [address] [address] EXAMINATION: CT ABD+PEL W CON, 10/07/2024 2:25 [...] Procedure Note Jeremiah Sam MD - 10/07/[address] [address] EXAMINATION: CT ABD+PEL W CON, 10/07/2024 2:25 [...] By: Jeremiah Sam MD, 10/07/2024 2:25 AM us [address]anne MTZ CT Final Result * (ABNORMAL) COMPREHENSIVE METABOLIC PANEL (10/07/2024 2:04 AM TELETYPESETTER OPERATOR) Only the most recent of2 resultswithin the time period is included. GLUCOSE 115(H) 70 - 99 MG/DL 10/07/2024 2:54 AM [facility] BUN 14 7 - 18 MG/DL 10/07/2024 2:54 AM [facility] CREATININE S/P/B 1.24 0.7 - 1.3 MG/DL 10/07/2024 2:54 AM [facility] SODIUM S/P/B 140 136 - 145 MMOL/L 10/07/2024 2:54 AM [facility] POTASSIUM S/P/B 3.7 3.5 - 5.1 MMOL/L 10/07/2024 2:54 AM [facility] CHLORIDE S/P/B 110 97 - 115 MMOL/L 10/07/2024 2:54 AM [facility] CO2 28.8 21 - 32 MMOL/L 10/07/2024 2:54 AM [facility] CALCIUM S/P/B 8.4(L) 8.5 - 10.1 MG/DL 10/07/2024 2:54 AM [facility] BILIRUBIN TOTAL S/P/B 0.2 0.2 - 1.2 MG/DL 10/07/2024 2:54 AM [facility] Comment: THIS ASSAY IS NOT RECOMMENDED FOR PATIENTS UNDERGOING TREATMENT WITH ELTROMBOPAG DUE TO THE POTENTIAL FOR FALSELY ELEVATED RESULTS. TOTAL PROTEIN S/P/B 7.3 6.4 - 8.2 G/DL 10/07/2024 2:54 AM [facility] ALBUMIN S/P/B 3.4 3.4 - 5.0 G/DL 10/07/2024 2:54 AM [facility] AST 15 15 - 37 U/L 10/07/2024 2:54 AM [facility] ALT 26 16 - 60 U/L 10/07/2024 2:54 AM [facility] ALKALINE PHOSPHATASE S/P/B 71 50 - 136 U/L 10/07/2024 2:54 AM [facility] ANION GAP 1.2(L) 2 - 10 MMOL/L 10/07/2024 2:54 AM [facility] BUN CREATININE RATIO 11.3 6 - 26 10/07/2024 2:54 AM [facility] A/G RATIO 0.9(L) 1.0 - 2.0 RATIO 10/07/2024 2:54 AM [facility] GFR ESTIMATE 79(L) >90 ML/MIN/1.7 3 M2 10/07/2024 2:54 AM [facility] Comment: NOTE: eGFR is not calculated for patients <18 years of age or gender unknown. This is an estimated GFR calculation using the new CKD EPI creatinine equation without race and so does not require a correction factor for race. This estimated GFR should not be used for calculating drug doses. 10/07/2024 2:04 AM TELETYPESETTER OPERATOR Breanne MTZ LABORATORY Final Result [facility] [address] [place] [address], [place] [phone] * (ABNORMAL) CBC W/DIFF AUTOMATED (10/07/2024 2:04 AM TELETYPESETTER OPERATOR) Only the most recent of2 resultswithin the time period is included. [facility] WBC 6.53 4.5 - 11.0 x10'3/uL 10/07/2024 2:19 AM [facility] RBC 4.62(L) 4.70 - 6.10 x10'6/uL 10/07/2024 2:19 AM [facility] HGB 13.0(L) 14.0 - 18.0 G/DL 10/07/2024 2:19 AM [facility] HCT 41.1(L) 43.0 - 54.0 % 10/07/2024 2:19 AM [facility] MCV 89.0 80.0 - 94.0 FL 10/07/2024 2:19 AM [facility] MCH 28.1 27.0 - 31.0 PG 10/07/2024 2:19 AM [facility] MCHC 31.6(L) 32.0 - 36.0 G/DL 10/07/2024 2:19 AM [facility] RDW 13.2 11.5 - 14.5 % 10/07/2024 2:19 AM [facility] PLT 298 130 - 400 x10'3/uL 10/07/2024 2:19 AM [facility] MPV 9.8 9.3 - 12.2 FL 10/07/2024 2:19 AM [facility] DIFFERENTIAL TYPE AUTOMATED DIFFERENTIAL 10/07/2024 2:19 AM TELETYPESETTER OPERATOR [facility] NEUTROPHILS % 61.9 % 10/07/2024 2:19 [address] [facility] LYMPHOCYTES % 24.0 % 10/07/2024 2:19 AM [facility] MONOCYTES % 11.2 % 10/07/2024 2:19 AM [facility] EOSINOPHILS 2.0 % 10/07/2024 2:19 [address]ETTER OPER[address] [facility] BASOPHILS 0.6 % 10/07/2024 2:19 AM [facility] IMMATURE GRANS % 0.3 % 10/08/19 2:19 AM [facility] ABS. NEUTROPHILS 4.04 1.80 - 7.70 x10'3/uL 10/07/2024 2:19 AM [facility] ABS. LYMPHOCYTES 1.57 1.00 - 4.80 x10'3/uL 10/07/2024 2:19 AM [facility] ABS. MONOCYTES 0.73 0.30 - 0.82 x10'3/uL 10/07/2024 2:19 AM [facility] ABS. EOSINOPHILS 0.13 0.04 - 0.54 x10'3/uL 10/07/2024 2:19 AM [facility] ABS. BASOPHILS 0.04 0.01 - 0.08 x10'3/uL 10/07/2024 2:19 AM [facility] ABS. IMMATURE GRANULOCYTES 0.02 0.00 - 0.49 x10'3/uL 10/07/2024 2:19 AM [facility] 10/07/2024 2:04 AM TELETYPESETTER OPERATOR us Breanne MTZ LABORATORY Final Result [facility] [address] [place] [address], * LIPASE (10/07/2024 2:04 AM TELETYPESETTER OPERATOR) LIPASE 32 13 - 75 UNITS/L 10/07/2024 2:54 [address]TER OPER[address] [facility] 10/07/2024 2:04 AM TELETYPESETTER OPERATOR Breanne Griffin PA LABORATORY Final Result [facility] [address] [place] [id number], * ECG 12 lead (09/13/2024 1:59 AM TELETYPESETTER OPERATOR) Only the most recent of2 resultswithin the time period is included. 09/13/2024 1:59 AM TELETYPESETTER OPERATOR Narrative [facility] ([facility]) RAD - 09/13/2024 1:54 PM TELETYPESETTER OPERATOR [address] Test Date: 2024-09-13 Pat Name: FLACO BEST Department: 41 Room: [facility] Gender: Male Personnel Assistant: [id number] : 1990 Requested By: BREANNE GRIFFIN Order Number: [id number] Reading MD: Angie Vilchis Measurements Intervals [place] Rate: 68 P: 29 FL: 144 QRS: 81 QRSD: 120 T: 43 QT: 390 QTc: 415 Interpretive Statements SINUS RHYTHM POSSIBLE LEFT VENTRICULAR HYPERTROPHY [VOLTAGE CRITERIA PLUS LAE OR QRS WIDENING] ST ELEVATION, CONSIDER ANTEROLATERAL and INFERIOR INJURY [MARKED ST ELEVATION W/O NORMALLY INFLECTED T WAVE IN V3-V6] +++ ACUTE MN +++ Compared to ECG 09/12/2024 22:52:04 No significant changes TYPESETTER OPERATOR Procedure Note Angie Vilchis MD - 09/13/[address] Test Date: 2024-09-13 Pat Name: FLACO BEST Department: 41 Room: EXAM12 Gender: Male Personnel Assistant: [id number] : 1990 Requested By: BREANNE GRIFFIN Order Number: [id number] Reading MD: Agnie Vilchis Measurements Intervals [place] Rate: 68 P: 29 FL: 144 QRS: 81 QRSD: 120 T: 43 QT: 390 QTc: 415 Interpretive Statements SINUS RHYTHM POSSIBLE LEFT VENTRICULAR HYPERTROPHY [VOLTAGE CRITERIA PLUS LAE OR QRS WIDENING] ST ELEVATION, CONSIDER ANTEROLATERAL and INFERIOR INJURY [MARKED STELEVATION W/O NORMALLY INFLECTED T WAVE IN V3-V6] +++ ACUTE MN +++ Compared to ECG 09/12/2024 22:52:04 No significant changes TYPESETTER OPERATOR us Breanne MTZ ECG ORDERABLES Final Result Performing Organization Address City/[facility]/ZIP Co de Phone Number [facility] ([facility]) RAD * TROPONIN, QUANT (09/13/2024 1:50 AM TELETYPESETTER OPERATOR) Only the most recent of2 resultswithin the time period is included. TROPONIN I HIGH SENSITIVITY 34 <79 ng/L 09/13/2024 2:24 [address] [facility] Comment: HIGH DOSES OF BIOTIN, TROPONIN-SPECIFIC AUTOANTIBODIES, AND ANTIBODY THERAPY CONTAINING HAMA MAY INTERFERE WITH THIS TEST RESULT. CORRELATION TO CLINICAL HISTORY AND PRESENTATION RECOMMENDED. 09/13/2024 1:50 AM TELETYPESETTER OPERATOR us Breanne MTZ LABORATORY Final Result Performing Organization Address City/[facility]/ZIP Co de Phone Number [facility] [address] [place] [address], * XR CHEST PORTABLE (09/12/2024 11:16 PM TELETYPESETTER OPERATOR) Anatomical Region Laterality Modality Chest Radiographic Macarena ging 09/12/2024 11:1 8 PM TELETYPESETTER OPERATOR Impressions 09/12/2024 11:18 PM TELETYPESETTER OPERATOR IMPRESSION: ======== 1. No acute cardiopulmonary findings. Referred By: Interpreted By: Alexis Clarke MD, 09/12/2024 11:18 PM Narrative 09/12/2024 11:18 PM TELETYPESETTER OPERATOR [address] [address] Examination: Chest x-ray 1 view Exam Date/Time: [...] Procedure Note Alexis Clarke MD - 09/12/[address] [address] Examination: Chest x-ray 1 view Exam Date/Time: [...] By: Alexis Clarke MD, 09/12/2024 11:18 PM Breanne MTZ GENERAL IMAGING Final Result * C-REACTIVE PROTEIN (09/12/2024 10:59 PM TELETYPESETTER OPERATOR) C-REACTIVE PROTEIN <0.29 <0.29 mg/dL 09/12/2024 11:36 [address] [facility] 09/12/2024 10:5 9 PM TELETYPESETTER OPERATOR Breanne MTZ LABORATORY Final Result Performing Organization Address City/[facility]/ZIP Co de Phone Number [facility] [address] [place] [address], [place] [phone] * SED RATE, ERYTHROCYTE (ESR) (09/12/2024 10:53 PM TELETYPESETTER OPERATOR) ESR 9 <15 MM/HR 09/12/2024 11:[address] [facility] Comment:Testing performed on [employer] iSED. 09/12/2024 10:5 3 PM TELETYPESETTER OPERATOR Breanne MTZ LABORATORY Final Result [facility] [address] [place] [address], [place] [phone] from Last 3 Months Insurance [employer] Advance Directives * Full Code (Latest Code Status on File) Date Activated Date Inactivated Comments 06/16/2023 10:32 PM 06/18/2023 1:59 PM Care Teams Public Safety Teacher Relationship Specialty Start Date End Date None, Provider, MD PCP - General UNKNOWN PHYSICIAN SPECIALTY 06/16/23
--- OUTSIDE RECORDS SUMMARY | 2024-10-31 14:32 | XMS_ITS | Referral Summary ---
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 Role Phone No, Physician Primary Care Provider [phone] Encounters Date Type Department Care Team Description 09/28/2024 2:49 AM HEAD ORTHOPEDIC TEAM PHYSICIAN - 10/01/2024 11:55 AM [facility] Hospital Encounter [facility] [address] [place] [address] Torres Armenta MD L'Ecuyer, Suzanne, MD Svancarek, MD Toy Wilks Rawan Ahmad, MD Suicidal ideation (Primary Dx); Abdominal pain; Adjustment disorders, with mixed anxiety and depressed mood; 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]; Cannabis use disorder, moderate, dependence (CMS/HCC) (HCC) [F12.20]; Pericarditis [I31.9]; Personality disorder, unspecified ([facility]) [F60.9]; Gastroesophageal reflux disease without esophagitis [K21.9] Discharge Disposition: Discharge to home or self care 09/19/2024 5:09 PM HEAD ORTHOPEDIC TEAM PHYSICIAN - 09/19/2024 5:50 PM [facility] Emergency [facility] Emergency Department [address] [place] [address] Kenny Curran MD Pericarditis (Primary Dx) Discharge Disposition: Discharge to home or self care 09/14/2024 12:06 AM HEAD ORTHOPEDIC TEAM PHYSICIAN - 09/14/2024 7:08 AM [facility] Emergency [facility] Emergency Department [address] [place] [address] Alexis Santos MD Abdominal pain (Primary Dx) Discharge Disposition: Discharge to home or self care 09/13/2024 [facility]phone [facility] [address] [place] [address] Outpatient [facility] 4th Floor [address] [place] [address] Lara Herrera 09/08/2024 Telephone [facility] [address] [place] [address] Outpatient [facility] 4th Floor [address] [place] [address] Lara Herrera 09/07/2024 1:21 AM [facility] - 09/07/2024 6:46 AM [facility] Emergency [facility] Emergency Department [address] [place] [address] Wilmer Muro MD Chest pain, unspecified type [...] 09/30/2024 Assessment & Plan (09/30/2024 9:09 AM HEAD ORTHOPEDIC TEAM PHYSICIAN): Will try to obtain iron studies I asked SW to help w/ PCP followup Epigastric pain 09/30/2024 Assessment & Plan (09/30/2024 9:17 AM HEAD ORTHOPEDIC TEAM PHYSICIAN): When asked where his pericarditis pain is, he points to the epigastrium. When I saw him in 11/2023, I had requested an H pylori stool antigen, which we were not able to obtain. -Try again to obtain H pylori antigen (especially w/ history of anemia) Depression 09/29/2024 Assessment & Plan (09/29/2024 1:17 PM HEAD ORTHOPEDIC TEAM PHYSICIAN): As per psychiatry Will addon a TSH Pericarditis 09/29/2024 Assessment & Plan (09/30/2024 9:10 AM HEAD ORTHOPEDIC TEAM PHYSICIAN): Currently asymptomatic. Will obtain EKG. 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 Low threshold to restart. The chest pain (when present) he notes is epigastric so that may be a component of GERD Renal lesion 09/29/2024 Assessment & Plan (09/30/2024 9:09 AM HEAD ORTHOPEDIC TEAM PHYSICIAN): 11/02/23 CT: There are 3 low-attenuation lesions [...] 08/14/23, 11/02/23 w/ diffuse ST elevation, w/ NM depression) and a negative ischemic workup (including [...] follows w/ Dr Cat Choudhary (cardiology w/ SS), which he will follow up with Plan: [...] 11/16/2023 Assessment & Plan (09/30/2024 9:11 AM HEAD ORTHOPEDIC TEAM PHYSICIAN): B12 300, same as 11/2023. Will replete [...] 11/16/2023 Assessment & Plan (09/30/2024 9:11 AM HEAD ORTHOPEDIC TEAM PHYSICIAN): Late latent, appropriately treated. See my 11/15/24 note Assessment & Plan (11/16/2023 1:25 PM CDT): As per my colleague Dr Bynum (see 09/07/23 medicine c/s note): - Has history of Syphilis, treated in 2013 , -Treponema ab + and RPR 1:4 on 08/29/23 when tested at [facility] ED Contacted [facility] Department ( [place] ) for info To see if titers are coming down , left message with Nurse ( [phone]): Called back received, Patient diagnosed with late latent syphilis at [facility] in [place] on 10-11 : +RPR titer 1 :256, treponema -EIA positive Completed treatment with benzathine penicillin G x 3 doses given on November 21 2013, November 28 2013 and December 052013 So appropriately treated Lumbar strain, initial encounter 09/16/2023 Anemia 09/08/2023 Assessment & Plan (09/08/2023 8:05 PM HEAD ORTHOPEDIC TEAM PHYSICIAN): -possible hx of GI bleed in June, [...] disease) Assessment & Plan (09/08/2023 5:10 AM HEAD ORTHOPEDIC TEAM PHYSICIAN): -continue pepcid Adjustment disorders, with mixed anxiety and dep ressed mood 09/07/2023 Assessment & Plan (09/08/2023 4:53 AM HEAD ORTHOPEDIC TEAM PHYSICIAN): Per Psychiatry Cannabis use disorder, moderate, dependence 01/2024 Assessment & Plan (09/08/2023 4:53 AM HEAD ORTHOPEDIC TEAM PHYSICIAN): Per Psychiatry History of syphilis 09/07/2023 Assessment & Plan (09/08/2023 12:28 PM HEAD ORTHOPEDIC TEAM PHYSICIAN): - Has history of Syphilis, treated in 2013 , -Treponema ab + and RPR 1:4 on 08/29/23 when tested at [facility] ED Contacted [facility] Department ( [place] ) for info To see if titers are coming down , left message with Nurse ( [phone]): Called back received, Patient diagnosed with late latent syphilis at [facility] in [place] on 10-11 : +RPR titer 1 :256, [...] recs Assessment & Plan (07/27/2023 10:01 AM HEAD ORTHOPEDIC TEAM PHYSICIAN): Wes has been struggling for the last 4 years with unstable realtionships, unstable housing, difficulty finding and maintaining employment, and in and out of prison/fdc/probation. He says that he is sad about [...] Med recs apprec; h/o pericarditis [facility] with follow-up and dispo Assessment & Plan (07/26/2023 9:44 AM HEAD ORTHOPEDIC TEAM PHYSICIAN): Wes has been struggling for the last 4 years with unstable realtionships, unstable housing, difficulty finding and maintaining employment, and in and out of prison/fdc/probation. He says that he is sad about [...] Med recs apprec; h/o pericarditis Swer to [facility] with follow-up and dispo Assessment & Plan (07/25/2023 12:24 PM HEAD ORTHOPEDIC TEAM PHYSICIAN): Wes has been struggling for the last 4 years with unstable realtionships, unstable housing, difficulty finding and maintaining employment, and in and out of prison/fdc/probation. He says that he is sad about [...] Med recs apprec; h/o pericarditis Swer to [facility] with follow-up and dispo Assessment & Plan [...] was started on Abilify and Depakote in [place], and reports that his visual and auditory hallucinations have resolved. - Start Sertraline 50mg, consider titrating - Obtain further information about the hallucinations - Haldol 5 p.o. or Haldol 5/Ativan 2 IM PRN for agitation - Suicide/elopement/safety precautions - Therapeutic milieu - q15 min safety checks Asthma 05/22/2023 Assessment & Plan (09/29/2024 1:14 PM HEAD ORTHOPEDIC TEAM PHYSICIAN): Mild. Prn albuterol Assessment & Plan (09/08/2023 5:12 AM HEAD ORTHOPEDIC TEAM PHYSICIAN): - no PFTs available , currently not in exacerbation, - PRN albuteral Assessment & Plan (07/25/2023 10:37 AM HEAD ORTHOPEDIC TEAM PHYSICIAN): Intermittent. No symptoms. Uses albuterol prn at [...] 09/07/202310/31 Assessment & Plan (09/08/2023 8:04 PM HEAD ORTHOPEDIC TEAM PHYSICIAN): - patient has not been able to afford colchicine and reports benefit when getting doses in ED visits - continue colchicine 0.6 mg po BID and monitor for side effects, it should be held if nausea, vomiting, diarrhea -Hold NSAIDS as -he as not tolerated with significant Gi side effects -Patient was seen by Cardiology as outpatient on 09/02/2023 at [facility] ([facility]) and has an [...] psychiatry Assessment & Plan (07/25/2023 10:36 AM HEAD ORTHOPEDIC TEAM PHYSICIAN): Pt w/ hx of depression and anxiety presents w/ SI after grandmother passing. Didn't have intent or plan. Denies SI now -mgt per primary Social History Tobacco Use Types Packs/Day Years Used Date Smoking Tobacco: Former Cigarettes Tobacco Cessation:Counseling Given: Not Answered Alcohol Use Standard Drinks/Week Comments Defer 0 (1 standard drink = 0.6 oz pur e alcohol) [facility] [employer] Answer Date Recorded In the past 12 months has e [employer], gas, oil, or water [employer] threatened to shut off services in your [...] week 09/29/2024 How often do you attend [facility] or moravian services? Never 09/29/2024 Do you belong to any clubs o r organizations such as druze groups, unions, fraternal or athletic groups, or [...] staff should administer the PHQ-9) 2 09/07/2023 [facility] - Occupational Stress Questionnaire Answer Date [...] or slept in a fdc (including now)? Yes 10/02/2023 Housing Stability Vital Sign Answer Pavel e Recorded In the last 12 months, was t here a time when you were not able to pay the mortgage or rent on time? No 09/29/2024 Number of Times Moved in the Last Year Not on fi le 09/29/2024 At any time in the past 12 m [facility], were you homeless or living in a fdc (including now)? No 09/29/2024 Personal Safety Answer [...] on file Legal Sex Male 5:49 PM HEAD ORTHOPEDIC TEAM PHYSICIAN Gender Identity Not on file Sexual Orientation Not on file Last Filed Vital Signs Vital Sign Reading Time Taken Comments Blood Pressure 161/95 10/01/2024 7:56 AM HEAD ORTHOPEDIC TEAM PHYSICIAN Pulse 75 10/01/2024 7:56 AM HEAD ORTHOPEDIC TEAM PHYSICIAN Temperature 37.3 C (99.1 F) 10/01/2024 7:56 AM HEAD ORTHOPEDIC TEAM PHYSICIAN Respiratory Rate 20 10/01/2024 7:56 AM HEAD ORTHOPEDIC TEAM PHYSICIAN Oxygen Saturation 97% 10/01/2024 7:56 AM HEAD ORTHOPEDIC TEAM PHYSICIAN Inhaled Oxygen Concentration - - Weight 72.6 kg (160 lb 1.6 oz) 09/28/2024 2:30 P M HEAD ORTHOPEDIC TEAM PHYSICIAN Height 177.8 cm (5' 10 ) 09/28/2024 2:30 PM HEAD ORTHOPEDIC TEAM PHYSICIAN Body Mass Index 22.97 09/28/2024 2:30 PM HEAD ORTHOPEDIC TEAM PHYSICIAN Functional Status * Are you deaf or [...] GONORRHOEAE/C. TRACHOMATIS AMPLIFICATION Routine 09/30/2024 11:18 AM HEAD ORTHOPEDIC TEAM PHYSICIAN URINALYSIS, MICROSCOPIC ONLY STAT 09/28/2024 3:44 AM HEAD ORTHOPEDIC TEAM PHYSICIAN DRUGS OF ABUSE SCREEN, URINE WITHOUT CONFIRMATION STAT 09/28/2024 3:44 AM HEAD ORTHOPEDIC TEAM PHYSICIAN URINALYSIS AND REFLEX TO MICROSCOPIC STAT 09/28/2024 3:44 AM HEAD ORTHOPEDIC TEAM PHYSICIAN IRON PROFILE W/ IBC STAT 09/28/2024 3 :15 AM HEAD ORTHOPEDIC TEAM PHYSICIAN FERRITIN STAT 09/28/2024 3:15 AM HEAD ORTHOPEDIC TEAM PHYSICIAN TSH STAT 09/28/2024 3:15 AM HEAD ORTHOPEDIC TEAM PHYSICIAN VITAMIN B12 STAT 09/28/2024 3:15 AM HEAD ORTHOPEDIC TEAM PHYSICIAN ETHANOL STAT 09/28/2024 3:15 AM HEAD ORTHOPEDIC TEAM PHYSICIAN LIPID PANEL STAT 09/28/2024 1:27 AM HEAD ORTHOPEDIC TEAM PHYSICIAN EGFR STAT 09/28/2024 1:27 AM HEAD ORTHOPEDIC TEAM PHYSICIAN DIFFERENTIAL AUTO STAT 09/28/2024 1:2 7 AM HEAD ORTHOPEDIC TEAM PHYSICIAN LIPASE STAT 09/28/2024 1:27 AM HEAD ORTHOPEDIC TEAM PHYSICIAN COMPREHENSIVE METABOLIC PANEL STAT 09/28/2024 1:27 AM HEAD ORTHOPEDIC TEAM PHYSICIAN CBC WITH AUTO DIFFERENTIAL STAT 09/28/2024 1:27 AM HEAD ORTHOPEDIC TEAM PHYSICIAN RPR STAT 09/28/2024 1:27 AM HEAD ORTHOPEDIC TEAM PHYSICIAN HIV 1/2 ANTIBODY PLUS P24 ANTIGEN STAT 09/28/2024 1:27 AM HEAD ORTHOPEDIC TEAM PHYSICIAN RESPIRATORY PATHOGEN PANEL STAT 09/27/2024 10:38 PM HEAD ORTHOPEDIC TEAM PHYSICIAN TROPONIN I HIGH-SENSITIVITY 2-HOUR Timed 09/19/2024 5:19 PM HEAD ORTHOPEDIC TEAM PHYSICIAN XR CHEST PA LATERAL 2 VIEWS ED 09/19/2024 3:06 PM HEAD ORTHOPEDIC TEAM PHYSICIAN ECG 12-LEAD STAT 09/19/2024 3:00 PM HEAD ORTHOPEDIC TEAM PHYSICIAN EGFR STAT 09/19/2024 2:56 PM HEAD ORTHOPEDIC TEAM PHYSICIAN DIFFERENTIAL AUTO STAT 09/19/2024 2:5 6 PM HEAD ORTHOPEDIC TEAM PHYSICIAN TROPONIN I HIGH-SENSITIVITY SERIES (BASELINE, 2HR, 4HR, 6HR) STAT 09/19/2024 2:56 PM HEAD ORTHOPEDIC TEAM PHYSICIAN COMPREHENSIVE METABOLIC PANEL STAT 09/19/2024 2:56 PM HEAD ORTHOPEDIC TEAM PHYSICIAN CBC WITH AUTO DIFFERENTIAL STAT 09/19/2024 2:56 PM HEAD ORTHOPEDIC TEAM PHYSICIAN EGFR Routine 09/14/2024 4:26 AM HEAD ORTHOPEDIC TEAM PHYSICIAN LIPASE STAT 09/14/2024 4:26 AM HEAD ORTHOPEDIC TEAM PHYSICIAN COMPREHENSIVE METABOLIC PANEL Routine 09/14/2024 4:26 AM HEAD ORTHOPEDIC TEAM PHYSICIAN CBC WITHOUT DIFFERENTIAL Routine 09/14/2024 4:26 AM HEAD ORTHOPEDIC TEAM PHYSICIAN URINALYSIS, MICROSCOPIC ONLY Routine 09/14/2024 1:16 AM HEAD ORTHOPEDIC TEAM PHYSICIAN URINALYSIS AND REFLEX TO MICROSCOPIC AND CULTURE Routine 09/14/2024 1:16 AM HEAD ORTHOPEDIC TEAM PHYSICIAN POCUS CARDIAC 09/07/2024 3:41 AM HEAD ORTHOPEDIC TEAM PHYSICIAN TROPONIN I HIGH-SENSITIVITY 4-HOUR Timed 09/07/2024 2:19 AM HEAD ORTHOPEDIC TEAM PHYSICIAN TROPONIN I HIGH-SENSITIVITY 2-HOUR Timed 09/06/2024 10:53 PM HEAD ORTHOPEDIC TEAM PHYSICIAN ECG 12-LEAD STAT 09/06/2024 9:44 PM HEAD ORTHOPEDIC TEAM PHYSICIAN EGFR STAT 09/06/2024 9:13 PM HEAD ORTHOPEDIC TEAM PHYSICIAN DIFFERENTIAL AUTO STAT 09/06/2024 9:1 3 PM HEAD ORTHOPEDIC TEAM PHYSICIAN TROPONIN I HIGH-SENSITIVITY SERIES (BASELINE, 2HR, 4HR, 6HR) STAT 09/06/2024 9:13 PM HEAD ORTHOPEDIC TEAM PHYSICIAN COMPREHENSIVE METABOLIC PANEL STAT 09/06/2024 9:13 PM HEAD ORTHOPEDIC TEAM PHYSICIAN CBC WITH AUTO DIFFERENTIAL STAT 09/06/2024 9:13 PM HEAD ORTHOPEDIC TEAM PHYSICIAN XR FINGER RIGHT 2 OR MORE VIEWS ED 09/06/2024 8:43 PM HEAD ORTHOPEDIC TEAM PHYSICIAN XR CHEST PA LATERAL 2 VIEWS ED 09/06/2024 8:43 PM HEAD ORTHOPEDIC TEAM PHYSICIAN from Last 3 Months Results * N. gonorrhoeae/C. trachomatis Amplification Urine (09/30/2024 11:18 AM HEAD ORTHOPEDIC TEAM PHYSICIAN) C. trachomatis Not Detected Not Detected [facility] N. gonorrhoeae Not Detected Not Detected [facility] Comment: Interpretive Data This assay detects Chlamydia trachomatis and Neisseria gonorrhoeae by nucleic acid amplification testing (NAAT). This assay has been cleared by the [place] Food and Drug administration. The performance characteristics of this test have been verified by the [facility] laboratory. The performance characteristics of this test have not been evaluated in individuals less than 14 years of age. Current Interpretive Data last revised 2023. Urine (None) 09/30/2024 11:1 8 AM HEAD ORTHOPEDIC TEAM PHYSICIAN 10/01/2024 2:05 PM HEAD ORTHOPEDIC TEAM PHYSICIAN us Max Lira MD LAB MICROBIOLOGY - GENERA L ORDERABLES Final Result [facility] Department [place] [address] [facility] * (ABNORMAL) Urinalysis reflex to microscopic (09/28/2024 3:44 AM HEAD ORTHOPEDIC TEAM PHYSICIAN) Color, ur Yellow Yellow Clarity, ur Clear Clear [facility] Specific gravity, ur 1.033(H) 1.003 - 1.030 [facility] pH, urine 6.0 [facility] Comment: Interpretive Data U rine pH is affected by diet, medications, systemic acid-base disturbances, and renal tubular function. pH may affect urinary stone formation. For example, urine pH below 6.0 may help reduce the tendency for calcium phosphate stones and pH greater than 6.0 may reduce the tendency for uric acid stone formation. Source: [facility] Current Interpretive Data was last revised on 2017 Protein, ur ql 1+(A) Negative [facility] Glucose, ur ql Negative Negative [facility] Ketones, ur Trace Negative [facility] Bilirubin, ur Negative Negative [facility] Blood, ur 1+(A) Negative [facility] Urobilinogen, ur <2.0 <2.0 mg/dL [facility] Nitrite, ur Negative Negative [facility] Leukocyte esterase, ur Negative Negative [facility] UA reflex comment Reflex to microscopic UA will be performed. [facility] Urine 09/28/2024 3:44 AM HEAD ORTHOPEDIC TEAM PHYSICIAN 09/28/2024 3:52 AM HEAD ORTHOPEDIC TEAM PHYSICIAN Torres Armenta MD LAB URINE ORDERABLES Vickie elba Result [facility] Department [place] [address] * (ABNORMAL) Drugs of Abuse Screen, Urine without Confirmation (09/28/2024 3:44 AM HEAD ORTHOPEDIC TEAM PHYSICIAN) Amphetamine, ur Not Detected [facility] 500ng/mL Comment: Interpretive Data - Amphetamines: Samples containing greater than 500 ng/mL d-methamphetamine or other cross-reacting amphetamine compounds are reported as positive. Amphetamine immunoassays are subject to significant false positive rates due to cross-reactivity of non-amphetamine drugs. Confirmatory testing required for definitive results. Current Interpretive Data was last reviewed 2023. Barbiturates, ur Not Detected CutOff 200ng/mL [facility] Comment: Interpretive Data - Barbiturates: Samples containing greater than 200 ng/mL secobarbital or other cross-reacting barbiturate compounds are reported as positive. False positive and false negative results are possible. Confirmatory testing required for definitive results. Current Interpretive Data was last reviewed 2023. Benzodiazepines, ur Not Detected CutOff 100ng/mL [facility] Comment: Interpretive Data - Benzodiazepines: Samples containing greater than 100 ng/mL nordiazepam or other cross-reacting compounds are reported as positive. False positive and false negative results are possible. Confirmatory testing required for definitive results. Current Interpretive Data was last reviewed 2023. Cannabinoids, ur Screen Positive, presumptive (A) CutOff 50 ng/mL [facility] Comment: Interpretive Data - Cannabinoids: Samples containing greater than 50 ng/mL delta-9 THC -COOH or other cross- reacting compounds are reported as positive. False positive and false negative results are possible. Confirmatory testing required for definitive results. Current Interpretive Data was last reviewed 2023. Cocaine, ur Not Detected CutOff 150ng/mL [facility] Comment: Interpretive Data - Cocaine: Samples containing greater than 150 ng/mL benzoylecgonine or other cross- reacting compounds are reported as positive. False positive and false negative results are possible. Confirmatory testing required for definitive results. Current Interpretive Data was last reviewed 2023. Fentanyl, Ur Not Detected CutOff 5 ng/mL [facility] Comment: Interpretive Data - Fentanyl: Samples containing greater than 5 ng/mL norfentanyl, fentanyl, or other cross-reacting fentanyl compounds are reported as positive. False positive and false negative results are possible. Confirmatory testing required for definitive results. Current Interpretive Data was last reviewed 2023. Methadone, ur Not Detected CutOff 300ng/mL [facility] Comment: Interpretive Data - Methadone: Samples containing greater than 300 ng/mL d,l-methadone or other cross-reacting compounds are reported as positive. False positive and false negative results are possible. Confirmatory testing required for definitive results. Current Interpretive Data was last reviewed 2023. Opiates, ur Not Detected CutOff 300ng/mL [facility] Comment: Interpretive Data - Opiates: Samples containing greater than 300 ng/mL morphine or other cross-reacting compounds are reported as positive. False positive and false negative results are possible. Confirmatory testing required for definitive results. Current Interpretive Data was last reviewed 2023. Oxycodone, ur Not Detected CutOff 100ng/mL [facility] Comment: Interpretive Data - Oxycodone: Samples containing greater than 100 ng/mL oxycodone or other cross-reacting compounds are reported as positive. False positive and false negative results are possible. Confirmatory testing required for definitive results. Current Interpretive Data was last reviewed 2023. Phencyclidine, ur Not Detected CutOff 25 ng/mL [facility] Comment: Interpretive Data - Phencyclidine: Samples containing greater than 25 ng/mL phencyclidine or other cross-reacting compounds are reported as positive. False positive and false negative results are possible. Confirmatory testing required for definitive results. Current Interpretive Data was last reviewed 2023. Urine Creatinine 460 mg/dL [facility] Comment: Interpretive Data Urine Creatinine: < 10 mg/dL is extremely dilute = or > 10 but < 20 mg/dL is dilute = or > 20 mg/dL is normal Current Interpretive Data was last revised on 2017. Urine 09/28/2024 3:44 AM HEAD ORTHOPEDIC TEAM PHYSICIAN 09/28/2024 4:00 AM HEAD ORTHOPEDIC TEAM PHYSICIAN Narrative [facility] - 09/28/2024 4:43 AM HEAD ORTHOPEDIC TEAM PHYSICIAN Drug of Abuse screening is performed by immunoassay for medical purposes only. This is not to be used for Pain Management purposes. Molly Haynes MD LAB URINE ORDERABL ES Edited Result - Final Performing Organization Address [facility] de Phone Number [facility] [place] [address] * (ABNORMAL) Urinalysis, microscopic only (09/28/2024 3:44 AM HEAD ORTHOPEDIC TEAM PHYSICIAN) WBC, ur 0-5 0 - 5 /HPF RBC, ur 0-2 0 - 2 /HPF [facility] Bacteria, ur 1+(A) [facility] Yeast, ur TRACE [facility] Mucous, ur Present(A) [facility] Amorphous crystals, ur 1+(A) [facility] Urine 09/28/2024 3:4 4 AM HEAD ORTHOPEDIC TEAM PHYSICIAN 09/28/2024 3:52 AM HEAD ORTHOPEDIC TEAM PHYSICIAN Torres Armenta MD LAB URINE ORDERABLES Vickie l Result Performing Organization Address [facility] de Phone Number [facility] Department [place] [address] * Iron profile w/ IBC (09/28/2024 3:15 AM HEAD ORTHOPEDIC TEAM PHYSICIAN) Iron See Comment 50 - 150 mcg/dL Comment: Credited; Hemolyzed Specimen Telephone report made to: destiny on 09/29/2024 21:39:47 HEAD ORTHOPEDIC TEAM PHYSICIAN by rxy . TIBC See Comment 250 - 400 mcg/dL [facility] Comment: Credited; Hemolyzed Specimen Telephone report made to: destiny on 09/29/2024 21:39:47 HEAD ORTHOPEDIC TEAM PHYSICIAN by rxy . Unable to calculate exact result. Transferrin saturation See Comment 20 - 50 % [facility] Comment: Credited; Hemolyzed Specimen Telephone report made to: [facility] on 09/29/2024 21:39:47 HEAD ORTHOPEDIC TEAM PHYSICIAN by rxy . Unable to calculate exact result. Blood 09/28/2024 3:15 AM HEAD ORTHOPEDIC TEAM PHYSICIAN 09/28/2024 3:25 AM HEAD ORTHOPEDIC TEAM PHYSICIAN Destiny Ch MD LAB BLOOD ORDERABLES Final R esult Performing Organization Address City/[facility] Co de Phone Number [facility] [place] [address] * TSH (09/28/2024 3:15 AM HEAD ORTHOPEDIC TEAM PHYSICIAN) Thyroid Stimulating Hormone 0.76 0.30 - 4.20 mcIUnit/mL Blood 09/28/2024 3:15 AM HEAD ORTHOPEDIC TEAM PHYSICIAN 09/28/2024 3:25 AM HEAD ORTHOPEDIC TEAM PHYSICIAN Destiny Ch MD LAB BLOOD ORDERABLES Final R esult Performing Organization Address [facility] Co de Phone Number [facility] [place] [address] * Ferritin (09/28/2024 3:15 AM HEAD ORTHOPEDIC TEAM PHYSICIAN) Ferritin See Comment 30 - 400 ng/mL Comment: Credited; Hemolyzed Specimen Telephone report made to: destiny on 09/29/2024 21:39:02 HEAD ORTHOPEDIC TEAM PHYSICIAN by RXY . Blood 09/28/2024 3:15 AM HEAD ORTHOPEDIC TEAM PHYSICIAN 09/28/2024 3:25 AM HEAD ORTHOPEDIC TEAM PHYSICIAN Destiny Ch MD LAB BLOOD ORDERABLES Final R esult Performing Organization Address City/[facility]/ZIP Co de Phone Number [facility] [place] [address] * Vitamin B12 (09/28/2024 3:15 AM HEAD ORTHOPEDIC TEAM PHYSICIAN) Vitamin B12 307 230 - 1,250 pg/mL Blood 09/28/2024 3:15 AM HEAD ORTHOPEDIC TEAM PHYSICIAN 09/28/2024 3:25 AM HEAD ORTHOPEDIC TEAM PHYSICIAN Destiny Ch MD LAB BLOOD ORDERABLES Final R esult Performing Organization Address [facility] de Phone Number [facility] Department [place] [address] * Ethanol (09/28/2024 3:15 AM HEAD ORTHOPEDIC TEAM PHYSICIAN) Pathologist [facility] Ethanol <10 <=10 mg/dL Comment: Hemolyzed; result may be falsely decreased Interpretive Data Legal limit of intoxication > or = 80 mg/dL Levels > or = 400 mg/dL are potentially TOXIC. Current interpretive data was last revised on 2018. Blood 09/28/2024 3:15 AM HEAD ORTHOPEDIC TEAM PHYSICIAN 09/28/2024 3:25 AM HEAD ORTHOPEDIC TEAM PHYSICIAN Molly Haynes MD LAB BLOOD ORDERABL ES Final Result Performing Organization Address [facility] de Phone Number [facility] Department [place] [address] * eGFR (09/28/2024 1:27 AM HEAD ORTHOPEDIC TEAM PHYSICIAN) Pathologist [facility] eGFR 80 >=60 mL/min/1. 73 m2 Comment: [...] last reviewed 2021. Blood 09/28/2024 1:27 AM HEAD ORTHOPEDIC TEAM PHYSICIAN 09/28/2024 1:45 AM HEAD ORTHOPEDIC TEAM PHYSICIAN us Torres Armenta MD LAB BLOOD ORDERABLES Vickie arreola Result [facility] Department [place] [address] * (ABNORMAL) Differential, auto (09/28/2024 1:27 AM HEAD ORTHOPEDIC TEAM PHYSICIAN) Neutrophil abs 5.7 1.5 - 6.5 K/cumm Imm gran abs 0.0 0.0 - 0.1 K/cumm [facility] Lymphocyte abs 1.8 0.8 - 3.3 K/cumm [facility] Monocyte abs 1.0(H) 0.2 - 0.8 K/cumm [facility] Eosinophil abs 0.1 0.0 - 0.5 K/cumm [facility] Basophil abs 0.0 0.0 - 0.1 K/cumm [facility] Neutrophil pct 65.2 % [facility] Comment: Interpretive Data Percent cell count reference ranges are not reported, since discordance with absolute values may lead to misinterpretation of CBC data. Current Interpretive Data was last revised on 2017. Imm gran pct 0.5 % [facility] Comment: Interpretive Data Percent cell count reference ranges are not reported, since discordance with absolute values may lead to misinterpretation of CBC data. Current Interpretive Data was last revised on 2017. Lymphocyte pct 21.2 % [facility] Comment: Interpretive Data Percent cell count reference ranges are not reported, since discordance with absolute values may lead to misinterpretation of CBC data. Current Interpretive Data was last revised on 2017. Monocyte pct 11.6 % [facility] Comment: Interpretive Data Percent cell count reference ranges are not reported, since discordance with absolute values may lead to misinterpretation of CBC data. Current Interpretive Data was last revised on 2017. Eosinophil pct 1.4 % [facility] Comment: Interpretive Data Percent cell count reference ranges are not reported, since discordance with absolute values may lead to misinterpretation of CBC data. Current Interpretive Data was last revised on 2017. Basophil pct 0.1 % [facility] Comment: Interpretive Data Percent cell count reference ranges are not reported, since discordance with absolute values may lead to misinterpretation of CBC data. Current Interpretive Data was last revised on 2017. Blood 09/28/2024 1:27 AM HEAD ORTHOPEDIC TEAM PHYSICIAN 09/28/2024 1:45 AM HEAD ORTHOPEDIC TEAM PHYSICIAN us Torres Armenta MD LAB BLOOD ORDERABLES Vickie l Result Performing Organization Address City/[facility]/ZIP Co de Phone Number [facility] Department [place] [address] * HIV 1/2 Antibody plus p24 Antigen Blood (09/28/2024 1:27 AM HEAD ORTHOPEDIC TEAM PHYSICIAN) Pathologist [facility] HIV 1/2 ab + p24 ag Nonreactive Nonreactive Comment:Nonreactive for HIV- 1 antigen and HIV-1/HIV-2 antibodies. No laboratory evidence of HIV infection. If acute HIV infection is suspected, consider testing for HIV-1 RNA. Current interpretive data was last revised on 22. Blood 09/28/2024 1:27 AM HEAD ORTHOPEDIC TEAM PHYSICIAN 09/28/2024 1:45 AM HEAD ORTHOPEDIC TEAM PHYSICIAN us Destiny Ch MD LAB MICROBIOLOGY - GENERAL O RDERABLES Final Result Performing Organization Address City/[facility]/ZIP Co de Phone Number [facility] Department [place] [address] * CBC with auto differential (09/28/2024 1:27 AM HEAD ORTHOPEDIC TEAM PHYSICIAN) WBC 8.7 3.8 - 9.9 K/cumm Hgb 13.9 13.0 - 17.5 g/dL [facility] Hct 42.6 38.9 - 50.3 % [facility] Plt 270 150 - 400 K/cumm [facility] MPV 10.0 9.1 - 12.3 fL [facility] RBC 4.87 4.30 - 5.80 M/cumm [facility] MCV 87.5 81.3 - 96.4 fL [facility] MCH 28.5 27.1 - 33.3 pg [facility] MCHC 32.6 32.3 - 35.7 g/dL [facility] RDW CV 13.2 11.1 - 14.9 % [facility] RDW SD 42.5 35.7 - 48.1 fL [facility] NRBC abs 0.00 0.00 - 0.01 K/cumm [facility] Blood Venous blood specimen / Unknown 09/28/2024 1:27 AM HEAD ORTHOPEDIC TEAM PHYSICIAN 09/28/2024 1:45 AM HEAD ORTHOPEDIC TEAM PHYSICIAN us Torres Armenta MD LAB BLOOD ORDERABLES Vickie l Result [facility] Department [place] [address] * RPR Blood (09/28/2024 1:27 AM HEAD ORTHOPEDIC TEAM PHYSICIAN) Pathologist [facility] RPR Nonreactive Nonreactive Blood 09/28/2024 1:27 AM HEAD ORTHOPEDIC TEAM PHYSICIAN 09/28/2024 1:50 AM HEAD ORTHOPEDIC TEAM PHYSICIAN us Destiny Ch MD LAB MICROBIOLOGY - GENERAL O RDERABLES Final Result Performing Organization Address City/[facility]/ZIP Co de Phone Number [facility] Department [place] [address] * Lipase (09/28/2024 1:27 AM HEAD ORTHOPEDIC TEAM PHYSICIAN) Pathologist [facility] Lipase 27 10 - 99 Units/L Blood Venous blood specimen / Unknown 09/28/2024 1:27 AM HEAD ORTHOPEDIC TEAM PHYSICIAN 09/28/2024 1:45 AM HEAD ORTHOPEDIC TEAM PHYSICIAN us Torres Armenta MD LAB BLOOD ORDERABLES Vickie arreola Result [facility] Department [place] [address] * Lipid panel (09/28/2024 1:27 AM HEAD ORTHOPEDIC TEAM PHYSICIAN) Cholesterol 163 30 - 199 mg/dL Comment: [...] revised on 2018. Triglycerides 75 <=149 mg/dL [facility] Comment: Interpretive Data Ages < or [...] on 2018. HDL 57 >=40 mg/dL [facility] Comment: Interpretive Data Ages < or [...] 2018. LDL, calculated 92 <=129 mg/dL [facility] Comment: Interpretive Data Ages < or = [...] 3. Aaron Patton et al. REVA Cardiol. 2019November 30;5(5):540-548. doi: [email or web address] Current Interpretive Data was last revised on 2024. Non-HDL Cholesterol 106 mg/dL [facility] Comment: Interpretive Data Ages < or [...] last revised on 2018. Chol/HDL ratio 3 [facility] Blood 09/28/2024 1:27 AM HEAD ORTHOPEDIC TEAM PHYSICIAN 09/28/2024 1:45 AM HEAD ORTHOPEDIC TEAM PHYSICIAN us Destiny Ch MD LAB BLOOD ORDERABLES Final R esult [facility] Department [place] [address] * Comprehensive metabolic panel (09/28/2024 1:27 AM HEAD ORTHOPEDIC TEAM PHYSICIAN) Sodium 143 135 - 145 mmol/L Potassium, pl 4.6 3.3 - 4.9 mmol/L [facility] Chloride 106 97 - 110 mmol/L [facility] CO2 29 22 - 32 mmol/L [facility] Anion gap 8 2 - 15 mmol/L [facility] BUN 10 6 - 25 mg/dL [facility] Creatinine 1.22 0.80 - 1.30 mg/dL [facility] Glucose 100 70 - 199 mg/dL [facility] Comment: Interpretive Data Fasting glucose >/= 126 [...] 2022. Calcium 9.7 8.5 - 10.3 mg/dL [facility] Bilirubin, total 0.2 0.1 - 1.2 mg/dL [facility] Protein, pl 7.7 6.5 - 8.5 g/dL [facility] Albumin 3.9 3.5 - 5.0 g/dL [facility] Alk phos 74 40 - 130 Units/L [facility] ALT 22 7 - 55 Units/L [facility] AST 24 10 - 50 Units/L [facility] Blood 09/28/2024 1:27 AM HEAD ORTHOPEDIC TEAM PHYSICIAN 09/28/2024 1:45 AM HEAD ORTHOPEDIC TEAM PHYSICIAN us Torres Armenta MD LAB BLOOD ORDERABLES Vickie l Result [facility] Department [place] [address] * Respiratory pathogen panel Nasopharyngeal (09/27/2024 10:38 PM HEAD ORTHOPEDIC TEAM PHYSICIAN) [facility] Influenza A RNA Not Detected Not Detected Influenza B RNA Not Detected Not Detected [facility] RSV RNA Not Detected Not Detected [facility] COVID-19 RNA Not Detected Not Detected [facility] Coronavirus 229E RNA Not Detected Not Detected [facility] Coronavirus HKU1 RNA Not Detected Not Detected [facility] Coronavirus NL63 RNA Not Detected Not Detected [facility] Coronavirus OC43 RNA Not Detected Not Detected [facility] Adenovirus DNA Not Detected Not Detected [facility] Metapneumovirus RNA Not Detected Not Detected [facility] Rhinovirus/Enterov irus RNA Not Detected Not Detected [facility] Parainfluenza 1 RNA Not Detected Not Detected [facility] Parainfluenza 2 RNA Not Detected Not Detected [facility] Parainfluenza 3 RNA Not Detected Not Detected [facility] Parainfluenza 4 RNA Not Detected Not Detected [facility] B. pertussis DNA Not Detected Not Detected [facility] B. parapertussis DNA Not Detected Not Detected [facility] C. pneumoniae DNA Not Detected Not Detected [facility] M. pneumoniae DNA Not Detected Not Detected [facility] Nasopharyngeal 09/27/2024 10 :38 PM HEAD ORTHOPEDIC TEAM PHYSICIAN 09/28/2024 1:00 AM HEAD ORTHOPEDIC TEAM PHYSICIAN Narrative [facility] - 09/28/2024 2:21 AM HEAD ORTHOPEDIC TEAM PHYSICIAN Is the Patient experiencing symptoms consistent with COVID?->Yes Surveillance testing for transplant patient?->No Interpretive Data The Right [employer] FilmArray Respiratory Panel (RP2.1) assay is a [...] assay has FDA clearance for testing of BUILDING [employer] swabs. The performance of additional specimen types has been assessed by the performing laboratory. The performance characteristics of this assay have been determined by [facility] Molecular Infectious Disease Laboratory. Current interpretive data was last revised on 22. Torres Armenta MD LAB MICROBIOLOGY - GENERA L ORDERABLES Final Result [facility] Department [place] [address] * Troponin I high-sensitivity 2-hour (09/19/2024 5:19 PM HEAD ORTHOPEDIC TEAM PHYSICIAN) Trop I hs 8 <=35 ng/L Comment: Interpretive Data For further hscTnI resources including the diagnostic algorithm and an aid in interpretation, copy and paste this link: https://bjhlab.testcatalog.org/show/hsTrop-1 Current Interpretive Data last revised 2020. Trop I hs delta 1 ng/L [facility] Trop I hs interp Insignificant [facility] Blood 09/19/2024 5:19 PM HEAD ORTHOPEDIC TEAM PHYSICIAN 09/19/2024 5:36 PM HEAD ORTHOPEDIC TEAM PHYSICIAN us Ole Kay MD LAB BLOOD ORDERABLES Final Result [facility] Department [place] [address] * XR Chest Pa Lateral 2 Views (09/19/2024 3:06 PM HEAD ORTHOPEDIC TEAM PHYSICIAN) Anatomical Region Laterality Modality Body, Chest N/A Computed Radiogr aphy 09/19/2024 3:41 PM HEAD ORTHOPEDIC TEAM PHYSICIAN Impressions 09/19/2024 4:08 PM HEAD ORTHOPEDIC TEAM PHYSICIAN Comparison with chest radiograph dated 09/06/2024. No pulmonary consolidation, pleural effusion, or pneumothorax. Cardiomediastinal silhouette is normal. Dictated by: Kolby Garvey M.D. The radiology attending physician has personally reviewed this study, and had reviewed and/or edited this written report and agrees with it. Electronically signed by: Rory Castellano M.D. Narrative 09/19/2024 4:08 PM HEAD ORTHOPEDIC TEAM PHYSICIAN EXAMINATION: 2 view chest radiograph Procedure Note [...] * (ABNORMAL) ECG 12-LEAD (09/19/2024 3:00 PM HEAD ORTHOPEDIC TEAM PHYSICIAN) Narrative [facility] - 09/19/2024 3:00 PM HEAD ORTHOPEDIC TEAM PHYSICIAN Irina Yeager MD 09/19/2024 3:01 PM ECG [...] in V2, v3,v4,v5,v6, avf, II, III With NM depression in avF, I,II, v4, v5. Similar to prior EKG on 12/05/23. Acute pericarditis concern Procedure Note Irina Yeager MD - 09/19/2024 3:00 PM CST Procedure ECG 12 lead Date/Time: 09/19/2024 3:00 PM Performed by: Irina Yeager MD Authorized by: Freeodm Mcginnis MD Rate: ECG rate: 86 ECG rate assessment: normal Rhythm: Rhythm: sinus rhythm Ectopy: Ectopy: none QRS: QRS axis: Normal QRS intervals: Normal Conduction: Conduction: normal ST segments: ST segments: Non-specific Interpretation: Interpretation: abnormal Recommended Follow-up: Recommended follow up: further workup in the ED Comments: Patient with ST elevations in V2, v3,v4,v5,v6, avf, II, III With NM depression in avF, I,II, v4, v5. Similar to prior EKG on 12/05/23. Acute pericarditis concern Irina Yeager MD 09/19/24 1501 us Kenny Curran MD ECG ORDERABLES Final R esult [facility] * Troponin I high-sensitivity series (baseline, 2hr, 4hr, 6hr) (09/19/2024 2:56 PM HEAD ORTHOPEDIC TEAM PHYSICIAN) Trop I hs 7 <=35 ng/L Comment: Interpretive Data For further hscTnI resources including the diagnostic algorithm and an aid in interpretation, copy and paste this link: https://bjhlab.testcatalog.org/show/hsTrop-1 Current Interpretive Data last revised 2020. Blood 09/19/2024 2:56 PM HEAD ORTHOPEDIC TEAM PHYSICIAN 09/19/2024 3:25 PM HEAD ORTHOPEDIC TEAM PHYSICIAN Kenny Curran MD LAB BLOOD ORDERABLES Fi nal Result Performing Organization Address [facility] Co de Phone Number [facility] [place] [address] * eGFR (09/19/2024 2:56 PM HEAD ORTHOPEDIC TEAM PHYSICIAN) eGFR >90 >=60 mL/min/1. 73 m2 Comment: [...] last reviewed 2021. Blood 09/19/2024 2:56 PM HEAD ORTHOPEDIC TEAM PHYSICIAN 09/19/2024 3:25 PM HEAD ORTHOPEDIC TEAM PHYSICIAN us Kenny Curran MD LAB BLOOD ORDERABLES Fi nal Result Performing Organization Address City/[facility]/ZIP Co de Phone Number [facility] Department [place] [address] * Differential, auto (09/19/2024 2:56 PM HEAD ORTHOPEDIC TEAM PHYSICIAN) Neutrophil abs 2.5 1.5 - 6.5 K/cumm Imm gran abs 0.0 0.0 - 0.1 K/cumm [facility] Lymphocyte abs 1.7 0.8 - 3.3 K/cumm [facility] Monocyte abs 0.5 0.2 - 0.8 K/cumm [facility] Eosinophil abs 0.1 0.0 - 0.5 K/cumm [facility] Basophil abs 0.0 0.0 - 0.1 K/cumm [facility] Neutrophil pct 50.3 % [facility] Comment: Interpretive Data Percent cell count reference ranges are not reported, since discordance with absolute values may lead to misinterpretation of CBC data. Current Interpretive Data was last revised on 2017. Imm gran pct 0.2 % [facility] Comment: Interpretive Data Percent cell count reference ranges are not reported, since discordance with absolute values may lead to misinterpretation of CBC data. Current Interpretive Data was last revised on 2017. Lymphocyte pct 35.7 % [facility] Comment: Interpretive Data Percent cell count reference ranges are not reported, since discordance with absolute values may lead to misinterpretation of CBC data. Current Interpretive Data was last revised on 2017. Monocyte pct 10.7 % [facility] Comment: Interpretive Data Percent cell count reference ranges are not reported, since discordance with absolute values may lead to misinterpretation of CBC data. Current Interpretive Data was last revised on 2017. Eosinophil pct 2.5 % [facility] Comment: Interpretive Data Percent cell count reference ranges are not reported, since discordance with absolute values may lead to misinterpretation of CBC data. Current Interpretive Data was last revised on 2017. Basophil pct 0.6 % [facility] Comment: Interpretive Data Percent cell count reference ranges are not reported, since discordance with absolute values may lead to misinterpretation of CBC data. Current Interpretive Data was last revised on 2017. Blood 09/19/2024 2:56 PM HEAD ORTHOPEDIC TEAM PHYSICIAN 09/19/2024 3:25 PM HEAD ORTHOPEDIC TEAM PHYSICIAN us Kenny Curran MD LAB BLOOD ORDERABLES Fi nal Result Performing Organization Address City/[facility]/ZIP Co de Phone Number [facility] Department [place] [address] * (ABNORMAL) CBC with auto differential (09/19/2024 2:56 PM HEAD ORTHOPEDIC TEAM PHYSICIAN) Pathologist [facility] WBC 4.9 3.8 - 9.9 K/cumm Hgb 12.8(L) 13.0 - 17.5 g/dL [facility] Hct 40.5 38.9 - 50.3 % [facility] Plt 271 150 - 400 K/cumm [facility] MPV 9.7 9.1 - 12.3 fL [facility] RBC 4.63 4.30 - 5.80 M/cumm [facility] MCV 87.5 81.3 - 96.4 fL [facility] MCH 27.6 27.1 - 33.3 pg [facility] MCHC 31.6(L) 32.3 - 35.7 g/dL [facility] RDW CV 13.2 11.1 - 14.9 % [facility] RDW SD 41.6 35.7 - 48.1 fL [facility] NRBC abs 0.02(H) 0.00 - 0.01 K/cumm [facility] Blood Venous blood specimen / Unknown 09/19/2024 2:56 PM HEAD ORTHOPEDIC TEAM PHYSICIAN 09/19/2024 3:25 PM HEAD ORTHOPEDIC TEAM PHYSICIAN us Kenny Curran MD LAB BLOOD ORDERABLES Fi nal Result [facility] Department [place] [address] * Comprehensive metabolic panel (09/19/2024 2:56 PM HEAD ORTHOPEDIC TEAM PHYSICIAN) Pathologist [facility] Sodium 141 135 - 145 mmol/L Potassium, pl 3.9 3.3 - 4.9 mmol/L [facility] Chloride 106 97 - 110 mmol/L [facility] CO2 26 22 - 32 mmol/L [facility] Anion gap 9 2 - 15 mmol/L [facility] BUN 6 6 - 25 mg/dL [facility] Creatinine 1.00 0.80 - 1.30 mg/dL [facility] Glucose 93 70 - 199 mg/dL [facility] Comment: Interpretive Data Fasting glucose >/= 126 [...] 2022. Calcium 9.1 8.5 - 10.3 mg/dL [facility] Bilirubin, total 0.2 0.1 - 1.2 mg/dL [facility] Protein, pl 7.1 6.5 - 8.5 g/dL [facility] Albumin 4.2 3.5 - 5.0 g/dL [facility] Alk phos 69 40 - 130 Units/L [facility] ALT 32 7 - 55 Units/L [facility] AST 22 10 - 50 Units/L [facility] Blood 09/19/2024 2:56 PM HEAD ORTHOPEDIC TEAM PHYSICIAN 09/19/2024 3:25 PM HEAD ORTHOPEDIC TEAM PHYSICIAN Kenny Curran MD LAB BLOOD ORDERABLES Fi nal Result [facility] Department [place] [address] * eGFR (09/14/2024 4:26 AM HEAD ORTHOPEDIC TEAM PHYSICIAN) eGFR >90 >=60 mL/min/1. 73 m2 Comment: [...] last reviewed 2021. Blood 09/14/2024 4:26 AM HEAD ORTHOPEDIC TEAM PHYSICIAN 09/14/2024 4:45 AM HEAD ORTHOPEDIC TEAM PHYSICIAN us Qi Cherry MD LAB BLOOD ORDERABLES Final R esult [facility] Department [place] [address] * (ABNORMAL) CBC without differential (09/14/2024 4:26 AM HEAD ORTHOPEDIC TEAM PHYSICIAN) WBC 6.1 3.8 - 9.9 K/cumm Hgb 12.0(L) 13.0 - 17.5 g/dL [facility] Hct 37.2(L) 38.9 - 50.3 % [facility] Plt 218 150 - 400 K/cumm [facility] MPV 10.0 9.1 - 12.3 fL [facility] RBC 4.28(L) 4.30 - 5.80 M/cumm [facility] MCV 86.9 81.3 - 96.4 fL [facility] MCH 28.0 27.1 - 33.3 pg [facility] MCHC 32.3 32.3 - 35.7 g/dL [facility] RDW CV 13.2 11.1 - 14.9 % [facility] RDW SD 41.2 35.7 - 48.1 fL [facility] NRBC abs 0.00 0.00 - 0.01 K/cumm [facility] Blood 09/14/2024 4:26 AM HEAD ORTHOPEDIC TEAM PHYSICIAN 09/14/2024 4:45 AM HEAD ORTHOPEDIC TEAM PHYSICIAN Qi Cherry MD LAB BLOOD ORDERABLES Final R esult Performing Organization Address City/[facility]/ZIP Co de Phone Number [facility] Department [place] [address] * Lipase (09/14/2024 4:26 AM HEAD ORTHOPEDIC TEAM PHYSICIAN) Pathologist [facility] Lipase 39 10 - 99 Units/L Blood 09/14/2024 4:26 AM HEAD ORTHOPEDIC TEAM PHYSICIAN 09/14/2024 4:45 AM HEAD ORTHOPEDIC TEAM PHYSICIAN Qi Cherry MD LAB BLOOD ORDERABLES Final R [facility] Performing Organization Address [facility] de Phone Number [facility] Department [place] [address] * (ABNORMAL) Comprehensive metabolic panel (09/14/2024 4:26 AM HEAD ORTHOPEDIC TEAM PHYSICIAN) [facility] Sodium 142 135 - 145 mmol/L Potassium, pl 4.4 3.3 - 4.9 mmol/L [facility] Chloride 108 97 - 110 mmol/L [facility] CO2 27 22 - 32 mmol/L [facility] Anion gap 7 2 - 15 mmol/L [facility] BUN 12 6 - 25 mg/dL [facility] Creatinine 1.08 0.80 - 1.30 mg/dL [facility] Glucose 110 70 - 199 mg/dL [facility] Comment: Interpretive Data Fasting glucose >/= 126 [...] 2022. Calcium 8.4(L) 8.5 - 10.3 mg/dL [facility] Bilirubin, total <0.2 0.1 - 1.2 mg/dL [facility] Protein, pl 6.1(L) 6.5 - 8.5 g/dL [facility] Albumin 3.4(L) 3.5 - 5.0 g/dL [facility] Alk phos 65 40 - 130 Units/L [facility] ALT 27 7 - 55 Units/L [facility] AST 25 10 - 50 Units/L [facility] Blood 09/14/2024 4:26 AM HEAD ORTHOPEDIC TEAM PHYSICIAN 09/14/2024 4:45 AM HEAD ORTHOPEDIC TEAM PHYSICIAN us Qi Cherry MD LAB BLOOD ORDERABLES Final R esult [facility] Department [place] [address] * (ABNORMAL) Urinalysis reflex to microscopic and culture Urine (09/14/2024 1:16 AM HEAD ORTHOPEDIC TEAM PHYSICIAN) Color, ur Yellow Yellow Clarity, ur Clear Clear [facility] Specific gravity, ur 1.031(H) 1.003 - 1.030 [facility] pH, urine 6.5 [facility] Comment: Interpretive Data U rine pH is affected by diet, medications, systemic acid-base disturbances, and renal tubular function. pH may affect urinary stone formation. For example, urine pH below 6.0 may help reduce the tendency for calcium phosphate stones and pH greater than 6.0 may reduce the tendency for uric acid stone formation. Source: [facility] Current Interpretive Data was last revised on 2017 Protein, ur ql 1+(A) Negative [facility] Glucose, ur ql Negative Negative [facility] Ketones, ur Negative Negative [facility] Bilirubin, ur Negative Negative [facility] Blood, ur 1+(A) Negative [facility] Urobilinogen, ur <2.0 <2.0 mg/dL [facility] Nitrite, ur Negative Negative [facility] Leukocyte esterase, ur Negative Negative [facility] UA reflex comment Reflex to microscopic UA will be performed. [facility] Urine 09/14/2024 1:16 AM HEAD ORTHOPEDIC TEAM PHYSICIAN 09/14/2024 1:25 AM HEAD ORTHOPEDIC TEAM PHYSICIAN Qi Cherry MD LAB MICROBIOLOGY - GENERAL O RDERABLES Final Result Performing Organization Address [facility] de Phone Number [facility] Department [place] [address] * (ABNORMAL) Urinalysis, microscopic only (09/14/2024 1:16 AM HEAD ORTHOPEDIC TEAM PHYSICIAN) WBC, ur 0-5 0 - 5 /HPF RBC, ur 11-20(A) 0 - 2 /HPF [facility] Bacteria, ur Trace(A) [facility] Mucous, ur Present(A) [facility] Hyaline casts, ur 1-5 0 - 10 /LPF [facility] Culture Reflex Comment Reflex conditions for urine culture (WBC >10) not met. [facility] Urine 09/14/2024 1:16 AM HEAD ORTHOPEDIC TEAM PHYSICIAN 09/14/2024 1:25 AM HEAD ORTHOPEDIC TEAM PHYSICIAN Qi Cherry MD LAB URINE ORDERABLES Final R esult Performing Organization Address [facility] de Phone Number [facility] Department [place] [address] * POCUS Cardiac (09/07/2024 3:41 AM HEAD ORTHOPEDIC TEAM PHYSICIAN) Anatomical Region Laterality Modality Other 09/07/2024 2:37 AM HEAD ORTHOPEDIC TEAM PHYSICIAN Narrative 09/07/2024 5:32 AM HEAD ORTHOPEDIC TEAM PHYSICIAN Performed by: Kolby Dominguez Cardiac: Exam type: [...] Troponin I high-sensitivity 4-hour (09/07/2024 2:19 AM HEAD ORTHOPEDIC TEAM PHYSICIAN) Trop I hs 12 <=35 ng/L Comment: [...] report a delta. Blood 09/07/2024 2:19 AM HEAD ORTHOPEDIC TEAM PHYSICIAN 09/07/2024 2:40 AM HEAD ORTHOPEDIC TEAM PHYSICIAN us [place] Yang MD LAB BLOOD ORDERABLES Final R esult [facility] Department [place] [address] * Troponin I high-sensitivity 2-hour (09/06/2024 10:53 PM HEAD ORTHOPEDIC TEAM PHYSICIAN) Trop I hs 12 <=35 ng/L Comment: Interpretive Data For further hscTnI resources including the diagnostic algorithm and an aid in interpretation, copy and paste this link: https://[email or web address].org/show/hsTrop-[email or web address] Current Interpretive Data last revised 2020. Trop I hs delta 0 ng/L [facility] Trop I hs interp Insignificant [facility] Blood 09/06/2024 10:5 3 PM HEAD ORTHOPEDIC TEAM PHYSICIAN 09/06/2024 11:08 PM HEAD ORTHOPEDIC TEAM PHYSICIAN us [place] Yang MD LAB BLOOD ORDERABLES Final R esult [facility] Department [place] [address] * ECG 12-LEAD (09/06/2024 9:44 PM HEAD ORTHOPEDIC TEAM PHYSICIAN) Narrative [facility] - 09/06/2024 9:44 PM HEAD ORTHOPEDIC TEAM PHYSICIAN Heriberto Herrera MD 09/06/2024 9:45 PM ECG [...] ischemia. History of pericarditis. Heriberto Herrera MD 09/06/24 2145 us Wilmer Muro MD ECG ORDERABLES Final Result [facility] * Troponin I high-sensitivity series (baseline, 2hr, 4hr, 6hr) (09/06/2024 9:13 PM HEAD ORTHOPEDIC TEAM PHYSICIAN) Trop I hs 12 <=35 ng/L Comment: Interpretive Data For further hscTnI resources including the diagnostic algorithm and an aid in interpretation, copy and paste this link: https://bjhlab.testcatalog.org/show/hsTrop-1 Current Interpretive Data last revised 2020. Blood 09/06/2024 9:13 PM HEAD ORTHOPEDIC TEAM PHYSICIAN 09/06/2024 9:55 PM HEAD ORTHOPEDIC TEAM PHYSICIAN us Wilmer Muro MD LAB BLOOD ORDERABLES Final Re sult Performing Organization Address City/[facility] Co de Phone Number [facility] Department [place] [address] * eGFR (09/06/2024 9:13 PM HEAD ORTHOPEDIC TEAM PHYSICIAN) eGFR >90 >=60 mL/min/1. 73 m2 Comment: [...] last reviewed 2021. Blood 09/06/2024 9:13 PM HEAD ORTHOPEDIC TEAM PHYSICIAN 09/06/2024 9:55 PM HEAD ORTHOPEDIC TEAM PHYSICIAN us Wilmer Muro MD LAB BLOOD ORDERABLES Final Re sult [facility] Department [place] [address] * Differential, auto (09/06/2024 9:13 PM HEAD ORTHOPEDIC TEAM PHYSICIAN) Neutrophil abs 3.6 1.5 - 6.5 K/cumm Imm gran abs 0.0 0.0 - 0.1 K/cumm [facility] Lymphocyte abs 2.0 0.8 - 3.3 K/cumm [facility] Monocyte abs 0.6 0.2 - 0.8 K/cumm [facility] Eosinophil abs 0.1 0.0 - 0.5 K/cumm [facility] Basophil abs 0.0 0.0 - 0.1 K/cumm [facility] Neutrophil pct 57.4 % [facility] Comment: Interpretive Data Percent cell count reference ranges are not reported, since discordance with absolute values may lead to misinterpretation of CBC data. Current Interpretive Data was last revised on 2017. Imm gran pct 0.3 % [facility] Comment: Interpretive Data Percent cell count reference ranges are not reported, since discordance with absolute values may lead to misinterpretation of CBC data. Current Interpretive Data was last revised on 2017. Lymphocyte pct 30.9 % [facility] Comment: Interpretive Data Percent cell count reference ranges are not reported, since discordance with absolute values may lead to misinterpretation of CBC data. Current Interpretive Data was last revised on 2017. Monocyte pct 9.1 % [facility] Comment: Interpretive Data Percent cell count reference ranges are not reported, since discordance with absolute values may lead to misinterpretation of CBC data. Current Interpretive Data was last revised on 2017. Eosinophil pct 2.0 % [facility] Comment: Interpretive Data Percent cell count reference ranges are not reported, since discordance with absolute values may lead to misinterpretation of CBC data. Current Interpretive Data was last revised on 2017. Basophil pct 0.3 % [facility] Comment: Interpretive Data Percent cell count reference ranges are not reported, since discordance with absolute values may lead to misinterpretation of CBC data. Current Interpretive Data was last revised on 2017. Blood 09/06/2024 9:13 PM HEAD ORTHOPEDIC TEAM PHYSICIAN 09/06/2024 9:56 PM HEAD ORTHOPEDIC TEAM PHYSICIAN Wilmer Muro MD LAB BLOOD ORDERABLES Final Re sult [facility] Department [place] [address] * (ABNORMAL) CBC with auto differential (09/06/2024 9:13 PM HEAD ORTHOPEDIC TEAM PHYSICIAN) WBC 6.4 3.8 - 9.9 K/cumm Hgb 13.9 13.0 - 17.5 g/dL [facility] Hct 43.6 38.9 - 50.3 % [facility] Plt 267 150 - 400 K/cumm [facility] MPV 10.1 9.1 - 12.3 fL [facility] RBC 4.94 4.30 - 5.80 M/cumm [facility] MCV 88.3 81.3 - 96.4 fL [facility] MCH 28.1 27.1 - 33.3 pg [facility] MCHC 31.9(L) 32.3 - 35.7 g/dL [facility] RDW CV 13.2 11.1 - 14.9 % [facility] RDW SD 42.4 35.7 - 48.1 fL [facility] NRBC abs 0.00 0.00 - 0.01 K/cumm [facility] Blood Venous blood specimen / Unknown 09/06/2024 9:13 PM HEAD ORTHOPEDIC TEAM PHYSICIAN 09/06/2024 9:56 PM HEAD ORTHOPEDIC TEAM PHYSICIAN us Wilmer Muro MD LAB BLOOD ORDERABLES Final Re sult Performing Organization Address City/[facility]/ZIP Co de Phone Number [facility] Department [place] [address] * (ABNORMAL) Comprehensive metabolic panel (09/06/2024 9:13 PM HEAD ORTHOPEDIC TEAM PHYSICIAN) Sodium 147(H) 135 - 145 mmol/L Potassium, pl 4.1 3.3 - 4.9 mmol/L [facility] Chloride 111(H) 97 - 110 mmol/L [facility] CO2 28 22 - 32 mmol/L [facility] Anion gap 8 2 - 15 mmol/L [facility] BUN 9 6 - 25 mg/dL [facility] Creatinine 1.05 0.80 - 1.30 mg/dL [facility] Glucose 91 70 - 199 mg/dL [facility] Comment: Interpretive Data Fasting glucose >/= 126 [...] 2022. Calcium 9.5 8.5 - 10.3 mg/dL [facility] Bilirubin, total 0.2 0.1 - 1.2 mg/dL [facility] Protein, pl 7.7 6.5 - 8.5 g/dL [facility] Albumin 4.2 3.5 - 5.0 g/dL [facility] Alk phos 75 40 - 130 Units/L [facility] ALT 20 7 - 55 Units/L [facility] AST 26 10 - 50 Units/L [facility] Blood 09/06/2024 9:13 PM HEAD ORTHOPEDIC TEAM PHYSICIAN 09/06/2024 9:55 PM HEAD ORTHOPEDIC TEAM PHYSICIAN us Wilmer Muro MD LAB BLOOD ORDERABLES Final Re sult [facility] Department [place] [address] * XR Finger Right 2 or More Views (09/06/2024 8:43 PM HEAD ORTHOPEDIC TEAM PHYSICIAN) Anatomical Region Laterality Modality Upper Extremities, Hand, Fingers Right Computed Radiography 09/06/2024 8:45 PM HEAD ORTHOPEDIC TEAM PHYSICIAN Impressions 09/06/2024 8:57 PM HEAD ORTHOPEDIC TEAM PHYSICIAN No acute fracture or dislocation. Joint spaces are preserved. Dictated by: Jay Rios MD The radiology attending physician has personally reviewed this study, and had reviewed and/or edited this written report and agrees with it. Electronically signed by: Mckenna Spencer M.D. Narrative 09/06/2024 8:57 PM HEAD ORTHOPEDIC TEAM PHYSICIAN EXAMINATION: XR FINGER RIGHT 2 OR MORE [...] Pa Lateral 2 Views (09/06/2024 8:43 PM HEAD ORTHOPEDIC TEAM PHYSICIAN) Anatomical Region Laterality Modality Body, Chest N/A Computed Radiogr aphy 09/06/2024 8:44 PM HEAD ORTHOPEDIC TEAM PHYSICIAN Impressions 09/06/2024 8:56 PM HEAD ORTHOPEDIC TEAM PHYSICIAN FINDINGS/IMPRESSION: 2 views of the chest are [...] Mckenna Spencer M.D. Narrative 09/06/2024 8:56 PM HEAD ORTHOPEDIC TEAM PHYSICIAN EXAMINATION: XR CHEST PA LATERAL 2 VIEWS [...] Resul t from Last [address] [place] [address] [place] [address] Advance Directives For more information, please contact: [phone] * Full Code (Latest Code Status on [...] 7:18 AM 05/25/2023 5:25 PM Care Teams [employer] Relationship Specialty Start Date End Date No, Physician PCP - General 11/30/20
[2024-10-31 15:00] VITALS: BP 130/74; PULSE 71; RESP 16; TEMP 36.7; O2SAT 98
--- NOTE | 2024-10-31 15:47 | PC.NURSE ---
patient refused 3 hour blood draw for troponin, GELA Lewis RN aware.
--- NOTE | 2024-10-31 15:48 | PC.NURSE ---
Patient refused their 3 hour troponin. EDP made aware.
--- NOTE | 2024-10-31 15:49 | ED.GENADULT ---
HPI - General Adult General Chief complaint: Chest Pain Stated complaint: chest pain Time Seen by Provider: 10/31/24 12:48 History of Present Illness HPI narrative: Patient is a 34-year-old male with history of chronic pericarditis who presents ER with chest pain. Began at noon. Aching. Goes to left shoulder. Has been out of his colchicine for couple weeks. Has not seen his primary care doctor or his blocker and polisher gold wheel. Cannot describe any other aggravating or alleviating factors. Related Data Home Medications ?Medication ?Instructions ?Recorded ?Confirmed ?Last Taken ?Type clonazepam 0.5 mg tablet 0.5 mg PO PRN PRN Anxiety 12/15/23 12/15/23 Unknown History cyanocobalamin (vitamin B-12) 10,000 mcg PO DAILY 12/15/23 12/15/23 Unknown History 1,000 mcg tablet doxycycline hyclate 100 mg capsule 100 mg PO DAILY 12/15/23 12/15/23 Unknown History ferrous sulfate 325 mg (65 mg 325 mg PO DAILY 12/15/23 12/15/23 Unknown History iron) tablet (FeroSul) Allergies Allergy/AdvReac Type Severity Reaction Status Date / Time No Known Allergies Allergy Verified 10/31/24 12:55 Review of Systems Review of Systems: All systems reviewed & are unremarkable except as noted in HPI and below Constitutional: Constitutional: Reports no additional constitutional complaints ENT: Reports system reviewed and no additional complaints, except as documented Cardiovascular: Cardiovascular: Reports no additional cardiovascular complaints Respiratory: Respiratory: Reports no additional respiratory complaints Musculoskeletal: Musculoskeletal: Reports no additional musculoskeletal complaints PMFSH Past Medical History Medical History Depression Pericarditis Surgical History Surgical History No pertinent past surgical history Social History Social History Substance use type: does not use Exam Narrative: GENERAL: Well-appearing, well-nourished, and in no acute distress. HEAD: Normocephalic, atraumatic. ENT: Mucous membranes moist. CHEST: Clear to auscultation. No respiratory distress. HEART: Regular rate and rhythm. Normal peripheral pulses. ABDOMEN: Soft, nontender, nondistended. EXTREMITIES: Normal range of motion. No edema. SKIN: Warm, dry, no rash. NEURO: Alert and oriented x3. PSYCH: Normal mood and affect. Course Course Emergency Course: Resting comfortably, declines second troponin. Feels improved with toradol. D/c. Vital Signs Vital signs: Vital Signs Temperature 98.7 F 10/31/24 12:47 Pulse Rate 54 L 10/31/24 12:47 Respiratory Rate 16 10/31/24 12:47 Blood Pressure 134/93 H 10/31/24 12:47 Pulse Oximetry 100 10/31/24 12:47 Oxygen Delivery Room Air 10/31/24 12:47 Temperature 98.7 F 10/31/24 12:47 Pulse Rate 54 L 10/31/24 12:47 Respiratory Rate 16 10/31/24 12:47 Blood Pressure 134/93 H 10/31/24 12:47 Pulse Oximetry 98 10/31/24 13:30 Oxygen Delivery Room Air 10/31/24 13:30 Medical Decision Making Vital Signs Vital Signs: Vital Signs Temperature 98.7 F 10/31/24 12:47 Pulse Rate 54 L 10/31/24 12:47 Respiratory Rate 16 10/31/24 12:47 Blood Pressure 134/93 H 10/31/24 12:47 Pulse Oximetry 100 10/31/24 12:47 Oxygen Delivery Room Air 10/31/24 12:47 Temperature 98.7 F 10/31/24 12:47 Pulse Rate 54 L 10/31/24 12:47 Respiratory Rate 16 10/31/24 12:47 Blood Pressure 134/93 H 10/31/24 12:47 Pulse Oximetry 98 10/31/24 13:30 Oxygen Delivery Room Air 10/31/24 13:30 Lab Data 10/31/24 12:57 10/31/24 12:57 Labs: Lab Results 10/31/24 Range/Units 12:57 WBC 7.0 (4.5-10.0) K/mm3 RBC 4.71 (4.6-6.20) M/mm3 Hgb 13.3 L (14.0-18.0) g/dL Hct 41.7 L (42.0-52.0) % MCV 88.5 (80-100) fl MCH 28.2 (26-34) pg MCHC 31.9 L (32-36) g/dl RDW 13.6 (11.5-14.5) % Plt Count 229 (150-375) k/mm3 MPV 9.6 (7.4-10.4) fl Immature Gran % (Auto) 0.1 (0-0.5) % Neut % (Auto) 66.6 (45.5-73.1) % Lymph % (Auto) 22.7 (18.3-44.2) % Barry % (Auto) 8.9 H (2.6-8.5) % Eos % (Auto) 1.4 (0-4.4) % Baso % (Auto) 0.3 (0.2-1.2) % Lymph # (Auto) 1.58 (0.9-3.2) K/mm3 Barry # (Auto) 0.6 (0.1-0.6) K/mm3 Eos # (Auto) 0.1 (0-0.3) K/mm3 Baso # (Auto) 0.0 (0.0-0.1) K/mm3 Abs Immat Gran (auto) 0.01 (0.00-0.031) K/mm3 Absolute Neuts (auto) 4.6 (1.3-6.7) K/mm3 Absolute Nucleated RBC 0.000 (0.0-0.012) K/mm3 Nucleated RBC % 0.0 (0.0-0.2) % PT 13.5 (11.1-14.7) Seconds INR 1.0 APTT 27.5 (22.3-36.8) Seconds Sodium 140 (137-145) mmol/L Potassium 4.4 (3.4-5.0) mmol/L Chloride 108 H (98-107) mmol/L Carbon Dioxide 22 (22-30) mmol/L Anion Gap 10 (4-12) mmol/L BUN 13 (9-20) mg/dL Creatinine 1.11 (0.7-1.3) mg/dL Estim Creat Clear Calc 90 ml/min Estimated GFR > 60 (59 - ) Glucose 93 (65-110) mg/dL Calcium 9.2 (8.4-10.2) mg/dL Total Bilirubin 0.3 (0.2-1.3) mg/dL AST 26 (17-59) U/L ALT 23 (6-50) U/L Alkaline Phosphatase 61 (38-126) U/L Troponin I < 0.012 (0.000-0.034) ng/mL Total Protein 8.0 (6.3-8.2) g/dL Albumin 4.3 (3.5-5.1) g/dL Lipase 84 (23-300) U/L Imaging Data Radiologist's impression: ITS Impressions Chest X-Ray 10/31/24 13:44 IMPRESSION: 1. No acute cardiopulmonary disease. ECG Data EKG #1: ECG completion date: 10/31/24 ECG completion time: 12:53 EKG Interpretation: bradycardia (55), no ectopy, ST elevation (chronic, diffuse), normal QRS, normal QT, NL axis and other (early repolarizeation, LVH) Discharge Plan Discharge Clinical Impression: Pericarditis Patient Disposition: Home, Self-Care Condition: Stable Instructions: Antibiotic Form Additional Instructions: Please return to the emergency department if you develop severe and persistent chest pain, difficulty breathing, dizziness, leg swelling or if you are coughing up blood as these can be signs of a medical emergency. Please call your doctor for a follow up appointment to determine the need for further testing. Follow up with your blocker and polisher gold wheel. Patient Language: Turkmen Prescriptions: New colchicine 0.6 mg capsule 0.6 mg PO DAILY Qty: 14 0RF No Action doxycycline hyclate 100 mg capsule 100 mg PO DAILY clonazepam 0.5 mg tablet 0.5 mg PO PRN PRN (Reason: Anxiety) cyanocobalamin (vitamin B-12) 1,000 mcg tablet 10,000 mcg PO DAILY ferrous sulfate [FeroSul] 325 mg (65 mg iron) tablet 325 mg PO DAILY Follow-up/Referrals: UNKNOWN,DOCTOR [Primary Care Provider] - 1 Week
--- NOTE | 2024-10-31 15:50 | PCCCNOTE ---
Called to the ED to provide a coat if possible. Case Management was able to provide a donated clean coat in which the pt was happy to accept. Denied having any further needs at this time.-wolfgang.
--- NOTE | 2024-10-31 16:04 | PC.NURSE ---
Pt refused 3 hour troponin & ekg. Dr Lemons informed
[2024-10-31 16:07] VITALS: BP 130/80; PULSE 55; RESP 18; TEMP 36.7; O2SAT 98
== END 2024-10-31 16:07 | disposition home or self-care (01) ==
PROVIDERS: Emergency Medicine; Emergency Provider Emergency Medicine
DX: I31.9 Disease of pericardium, unspecified (principal); R00.1 Bradycardia, unspecified; F32.A Depression, unspecified
CPT/HCPCS: 36415; 71046; 80053; 83690; 84484; 85025; 85610; 85730; 93005; 96374; 99284; J1885

== ENCOUNTER 2024-12-18 21:56 | Emergency (ER) | payer OTHER, SELFPAY ==
[2024-12-18] VITALS (7 sets, daily range): BP systolic 115–151; BP diastolic 63–92; PULSE 61–79; RESP 10–18; TEMP 37.1; O2SAT 95–100
--- NOTE | ~2024-12-18 | XR_ITS ---
EXAMINATION: XR chest 2V Exam Date/Time: 12/18/2024 22:12 CDT HISTORY: cp Comparison: 10/31/2024. RESULT: Lines, tubes, and devices: None. Lungs and pleura: No focal consolidation, pleural effusion, or pneumothorax. Biapical pleural scarri ng. Cardiomediastinal silhouette: Stable. Other: No acute osseous or upper abdominal finding. IMPRESSION: No acute cardiopulmonary process. Reviewed, dictated and finalized at location K.
--- NOTE | 2024-12-18 21:57 | ECG_ITS ---
Test Date: 2024-12-18 22:04:02 Measurements Intervals Tullos Rate: 63 P: 9 UT: 136 QRS: 81 QRSD: 100 T: 30 QT: 354 QTc: 363 Interpretive Statements SINUS RHYTHM VOLTAGE CRITERIA FOR LVH [MEETS CRITERIA IN ONE OF: R(aVL), S(V1), R(V5), R(V5/V6)+S(V1)] ST ELEVATION IN DIFFUSE LEADS- PROBABLY EARLY REPOLARIZATION ABNORMALITY Compared to ECG 10/31/2024 12:53:15 NO SIGNIFICANT CHANGES Electronically Signed On 12-19-2024 13:31:48 CDT by Pam Jesus M.D.
--- OUTSIDE RECORDS SUMMARY | 2024-12-18 21:58 | XMS_ITS | Patient Health Record ---
Author Organization [facility] Address [address] [place] [address] Care Team Providers Care Manager Social Services Name Role Phone Rocío Castillo Primary Care Provider Reason For Referral No Information Social History Sex Assigned At : Social History Observation Description Sex Assigned At Male Encounters Encounter Location Date Provider Diagnosis [address] [place] [address] 10/16/2024 Rocío Castillo Plan Of Treatment No Information Insurance Providers Payer Name Payer Address Payer Phone Subscriber Number Group Number Insured Name Patient Relationship to Insured Coverage Start Date Coverage End Date [employer] [phone] [id number] [employer] - patient is the insured 4
--- OUTSIDE RECORDS SUMMARY | 2024-12-18 21:58 | XMS_ITS | Encounter Summary ---
Author Organization [facility] Address [address] [place] [address] Care Team Providers Care Service Supervisor Name Role Phone Unavailable Primary Care Provider Unavailabl e Encounter Details Date Type Department Care Team (Late st Contact Info) Description 11/05/2024 Lab Requisition [facility] [address] [phone] Ventura Brian MD [address] [place] [address] Social History Tobacco Use Types Packs/Day Years Used Date Smoking Tobacco: Never Assessed Sex and Gender Information Value Date Recorded Sex Assigned at Not on file Legal Sex Male 8:18 AM CALF 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 AVG GLUCOSE, A1C 111 mg/dL 11/05/2024 9:48 AM CDT [facility] Blood 11/05/2024 6:48 AM CDT 11/05/2024 8:45 AM CDT Narrative [facility] - 11/05/2024 9:48 AM CDT HGB A1C INTERPRETATION NORMAL: <5.7% PRE-DIABETES: 5.7 - 6.4% DIABETES: 6.5% OR GREATER Ventura Brian MD CHEMISTRY ORDERABLES Final Res ult Performing Organization Address City/[facility]/ZIP Co de Phone Number [facility] [id number] [address] [place] [address] [phone] * GLUCOSE LEVEL (11/05/2024 6:48 AM CDT) GLUCOSE 91 70 - 115 mg/dL 11/05/2024 9:58 AM CDT [facility] Blood Collection / Unknown 11/05/2024 6:48 AM CDT 11/05/2024 8:45 AM CDT Ventura Brian MD CHEMISTRY ORDERABLES Final Res ult Performing Organization Address City/[facility]/ZIP Co de Phone Number [facility] [id number] [address] [place] [phone] * LIPID PANEL (11/05/2024 6:48 AM CDT) CHOLESTEROL 136 <200 mg/dL 11/05/2024 9:58 AM CDT [facility] TRIGLYCERIDE 69 <150 mg/dL 11/05/2024 9:58 AM CDT [facility] HDL 50 40 - 59 mg/dL 11/05/2024 9:58 AM CDT [facility] LDL CALCULATED 72 <100 mg/dL 11/05/2024 9:58 AM CDT [facility] NON-HDL CHOLESTEROL 86 <130 mg/dL 11/05/2024 9:58 AM CDT [facility] Blood Collection / Unknown 11/05/2024 6:48 AM CDT 11/05/2024 8:45 AM CDT Narrative [facility] - 11/05/2024 9:58 AM CDT TOTAL CHOLESTEROL mg/dL Desirable <200 Borderline high 200-239 High >=240 TRIGLYCERIDES mg/dL Normal <150 Borderline high 150-199 High 200-499 Very high >=500 HDL CHOLESTEROL mg/dL Low <40 Normal 40-59 Desirable >=60 NON HDL CHOLESTEROL mg/dL Optimal <130 Near Optimal 130-159 Borderline High 160-189 Very High >=190 CALCULATED LDL mg/dL LDL <70, OPTIMAL if have Atherosclerotic cardiovascular disease (ASCVD) or intermediate or higher (>7.5%) 10 year risk of ASCVD including most adults with diabetes. LDL <100, Optimal in adult patients with low (<7.5%) 10 year ASCVD risk LDL 100-160, Suboptimal LDL >160, High LDL >190, Very high LDL calculated using the Friedewald equation. ATPIII Guidelines Reference Ranges for Lipid Panels (NCEP/AMA) . us Ventura Brian MD CHEMISTRY ORDERABLES Final Res ult [facility] [id number] [address] [place] [address] [phone] documented in this encounter Visit Diagnoses Not on filedocumented in this encounter
--- OUTSIDE RECORDS SUMMARY | 2024-12-18 21:58 | XMS_ITS | Clinical Summary ---
Author Organization [facility] Address [address] [place] [address] [place] [address] Care Team Providers Care Associate Designer Name Role Phone None, Physician Primary Care Provider Unavailabl e Source Comments [facility],non-owned Affiliates and Associated Physician Practices is amultiple site organization consisting of ambulatory clinics and hospital sitesin [place], [place], [place] and [place]. This disclosure is being madepursuant to the Care Everywhere program and may not contain all information available regarding this patient. Last updated 18.[facility] Allergies No known active allergies Medications * This document contains information received from the source organization and may not represent a complete record from that organization. * Be aware that medications may not be up to date on this document. Alwaysverify current medications with the patient. mirtazapine (Remeron) 7.5 MG tabletIndicatio ns:Major Depressive Disorder Take 1 (one) tablet by mouth at bedtime for 30 days Reasons: Major Depressive Disorder 30 tablet 4 Active pantoprazole EC (Protonix) 40 MG tabletIndicatio ns:Heartburn Take 1 (one) tablet by mouth once daily for 30 days Reasons: Heartburn 30 tablet 4 Active colchicine 0.6 MG tablet Take 2 (two) tablets by mouth once daily 60 tablet 5 Active Active Problems Problem Noted Date Diagnosed [...] (06/02/2022): Added automatically from request for surgery [id number] ST elevation myocardial infa rction (STEMI), unspecified artery 06/02/2022 Chest pain due to myocardial ischemia, unspecified ischemic chest pain type 06/02/2022 Immunizations Immunization Administration Dates Next Due DTP, HISTORIC VACCINE [...] housing, medical care, and heating? Hard 08/07/2023 [facility] [place] [facility] Occupat ional Health - Occupational Stress [...] place to sleep or slept in a snf (including now)? 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 Gender Identity Not on file Sexual Orientation Not on file Last Filed Vital Signs Vital Sign Reading Time Taken Comments Blood Pressure 141/85 09/17/2024 4:00 AM FIELD REVIEWER Pulse 87 09/17/2024 4:00 AM FIELD REVIEWER Temperature 36.9 C (98.5 F) 09/17/2024 1:48 AM FIELD REVIEWER Respiratory Rate 13 09/17/2024 4:02 AM FIELD REVIEWER Oxygen Saturation 96% 09/17/2024 4:00 AM FIELD REVIEWER Inhaled Oxygen Concentration - - Weight 72.6 kg (160 lb) 09/17/2024 1:45 AM FIELD REVIEWER Height 180.3 cm (5' 11 ) 09/17/2024 1:45 AM FIELD REVIEWER Body Mass Index 22.32 09/17/2024 1:45 AM FIELD REVIEWER Plan of Treatment Health Maintenance Due Date Last Done Comments HEPATITIS B VACCINE (3 of 3 - 3-dose series) 11/16/2000 09/21/2000, 04/04/1996 DTAP/TDAP/TD VACCINES (5 - Tdap) 2002 04/04/1996, 08/20/1992, 06/20/1992, Additional history exists HIV SCREENING 2006 HEPATITIS C SCREENING 03/01/2009 COVID-19 VACCINE (2023- season) 2024 DEPRESSION SCREENING 08/02/2024 INFLUENZA VACCINE (Season Ended) 2025 ZOSTER VACCINE (1 of 2) 2041 HIB [...] patient's age to complete this topic Insurance Advance Directives * Full Code (Latest Code Status on File) Date Activated Date Inactivated Comments 08/29/2023 6:12 AM 08/29/2023 1:31 PM * Full Code Date Activated Date Inactivated Comments 08/07/2023 11:38 AM 08/10/2023 3:33 PM * Full Code Date Activated Date Inactivated Comments 06/02/2022 4:30 AM 06/03/2022 4:00 PM Care Teams Associate Designer Relationship Specialty Start Date End Date None, Physician PCP - General 09/17/24
--- OUTSIDE RECORDS SUMMARY | 2024-12-18 21:58 | XMS_ITS ---
Author Organization [facility] Address [address] [place] [address] Care Team Providers Care Solar Development Engineer Name Role Phone Rocío Castillo Primary Care Provider [phone] REASON FOR VISIT psych eval, fu from [facility] Social History Sex Assigned At : Social History Observation Description Sex Assigned At Male Encounters Encounter Location Date Provider Diagnosis [address] [place] [address] 10/16/2024 Rocío Castillo Plan Of Treatment No Information Progress Notes * Flaco BESTDOB:[birth year] (34 yo M)Acc No.[id number]:10/16/2024 UNLOCKED PROGRESS NOTE Patient: Flaco LYNN Provider: Lluvia Castillo MSN, MANAGER MATH, HISTOLOGICAL ILLUSTRATOR-C :1990 A ge:34 Y S ex:Male Date:10/16/2024 Address:[address] [place] [address], [facility], [id number] Subjective: * Chief Complaints: * 1 . psych eval, fu from [facility]. * Medical History: Objective: * Vitals: Assessment: Plan: * Treatment: * * Electronic signature of Stacey Castillo , [id number] on 12/18/2024 at 09:58 PM CDT Sign off status: Pending * Provider: Lluvia Castillo MSN, MANAGER MATH, HISTOLOGICAL ILLUSTRATOR-C Date: 0 10/16/2024 Generated for Roseann hernandez/Marcos/eTransmitting on: 12/18/2024 09:58 PM CDT
--- OUTSIDE RECORDS SUMMARY | 2024-12-18 21:58 | XMS_ITS | CONTINUITY OF CARE DOCUMENT ---
Author Name ed ward Address Unknown Organization [facility] Address [address] [address] [place] [address] Phone [phone] Care Team Providers Care Ticket Sorter Name Role Phone Cat Choudhary MD Unavailable Cat Choudhary MD Unavailable [phone] PROBLEMS Condition Status Date Provider Notes Acute idiopathic pericarditis active Haritha MTZ Specialist Cardiology examination active Garfield Lucas MD Marijuana use active Garfield Lucas MD ENCOUNTERS Date Type Provider Location Encounter Diag nosis - In-person encounter Office Visit Garfield Lucas MD [place] [facility] Cardiology examinationMarijuana use VITAL SIGNS Date [...] history of marijuana use yes Mckennakaren Zhangmiglia STUDENT ADVISOR drug use no Mckenna Ventimig maureen STUDENT ADVISOR alcohol use no Mckenna Ventimig maureen STUDENT ADVISOR cigarette use yes Stephan Velasco ay smoking status Former smoker Stephan Whitt rday INSURANCE PROVIDERS Payer name Policy type / Coverage type [place] red republic[place] [employer] MEDICAID Medicaid [id number] ADVANCE DIRECTIVES Name Date DISCUSSED - NO DECISION MADE TREATMENT PLAN Date Name Performer Cardiology:cessation encouraged Mckenna Zhangmiglia [facility] Cardiology:patient h as had recurrent ER visits for chest pain suggestive of pericarditis as worse with leaning forward and deep inspiration p ain has been refractory to NSAIDs and colchincine We will do echo to look for effusion w ill plan to send order for arcalyst p atient will return in 3 mos or sooner if needed. Mckenna Zhangmiglia [facility] Date Name Complete Echo HISTORY OF PROCEDURES Procedure Date Procedure Name Provider Procedure Notes S tatus EKG Garfield Lucas MD complete d
--- OUTSIDE RECORDS SUMMARY | 2024-12-18 21:59 | XMS_ITS | Clinical Summary ---
Author Organization [facility] Address [address] [place] [address] Phone Care Team Providers Care Optometry Teacher Name Role Phone Provider, None Primary Care [...] Comments Blood Pressure 134/78 09/19/2023 6:07 PM SUPERVISOR CARPENTERS Pulse 70 09/19/2023 9:14 PM SUPERVISOR CARPENTERS Temperature 36.6 C (97.8 F) 09/19/2023 6:07 PM SUPERVISOR CARPENTERS Respiratory Rate 17 09/19/2023 6:07 PM SUPERVISOR CARPENTERS Oxygen Saturation 94% 09/19/2023 9:14 PM SUPERVISOR CARPENTERS Inhaled Oxygen Concentration - - Weight 79.4 kg (175 lb) 09/19/2023 6:07 PM SUPERVISOR [employer]PENTERS Height 185.4 cm (6' 1 ) 09/19/2023 6:07 PM SUPERVISOR CARPENTERS Body Mass Index 23.09 09/19/2023 6:07 PM SUPERVISOR CARPENTERS Plan of Treatment Health Maintenance Due Date [...] age to complete this topic Insurance MEDICAID [place] Care Teams Optometry Teacher Relationship Specialty Start Date End Date Provider, None [place] PCP - General 08/19/23
--- OUTSIDE RECORDS SUMMARY | 2024-12-18 21:59 | XMS_ITS | Clinical Summary ---
Author Organization [facility] Address [address] [place] [address] Care Team Providers Care Rn Palliative Name Role Phone No, Physician Primary Care Provider [phone] Allergies No known active allergies Medications colchicine (COLCRYS) 0.6 mg capsuleIndicati ons:pericarditi s Take 1 capsule (0.6 mg total) by mouth 2 (two) times a day 60 capsule 09/19/2024 Active Active Problems Problem Noted Date Diagnosed Date History of iron deficiency 09/30/2024 Assessment & Plan (09/30/2024 9:09 AM AIR TUBE RELEASER): Will try to obtain iron studies I asked SW to help w/ PCP followup Epigastric pain 09/30/2024 Assessment & Plan (09/30/2024 9:17 AM AIR TUBE RELEASER): When asked where his pericarditis pain is, he points to the epigastrium. When I saw him in 11/2023, I had requested an H pylori stool antigen, which we were not able to obtain. -Try again to obtain H pylori antigen (especially w/ history of anemia) Depression 09/29/2024 Assessment & Plan (09/29/2024 1:17 PM AIR TUBE RELEASER): As per psychiatry Will addon a TSH Pericarditis 09/29/2024 Assessment & Plan (09/30/2024 9:10 AM AIR TUBE RELEASER): Currently asymptomatic. Will obtain EKG. Will restart colchicine if symptoms recurs EKG w/ diffuse ST elevation in II, III, aVF, and V1-6, with no IN depression This might also be early repolarization See my notes from 11/16/23 and 11/17/23 for my thought process then He has a structural design engineer (Dr Rivera, in [place]) with whom he can follow up Routine general medical exam ination at a health care facility 09/29/2024 Assessment & Plan (09/29/2024 1:17 PM AIR TUBE RELEASER): HIV, RPR negative Will recheck here Addon B12, TSH GERD (gastroesophageal reflux disease) Assessment & Plan (09/29/2024 1:18 PM AIR TUBE RELEASER): Hold off PPI for now as he notes no symptoms of acid reflux. Low threshold to restart. The chest pain (when present) he notes is epigastric so that may be a component of GERD Renal lesion 09/29/2024 Assessment & Plan (09/30/2024 9:09 AM AIR TUBE RELEASER): 11/02/23 CT: There are 3 low-attenuation lesions [...] 08/14/23, 11/02/23 w/ diffuse ST elevation, w/ IN depression) and a negative ischemic workup (including [...] follows w/ Dr Cat Choudhary (cardiology w/ [facility]), which he will follow up with Plan: [...] 11/16/2023 Assessment & Plan (09/30/2024 9:11 AM AIR TUBE RELEASER): B12 300, same as 11/2023. Will replete [...] 11/16/2023 Assessment & Plan (09/30/2024 9:11 AM AIR TUBE RELEASER): Late latent, appropriately treated. See my 11/15/24 note Assessment & Plan (11/16/2023 1:25 PM CDT): As per my colleague Dr Bynum (see 09/07/23 medicine c/s note): - Has history of Syphilis, treated in 2013 , -Treponema ab + and RPR 1:4 on 08/29/23 when tested at [facility] Contacted [facility] ( [place] ) for info To see if titers are coming down , left message with Nurse ( [phone]): Called back received, Patient diagnosed with late latent syphilis at [facility] on 10-11 : +RPR titer 1 :256, treponema -EIA positive Completed treatment with benzathine penicillin G x 3 doses given on November 21 2013, November 28 2013 and December 052013 So appropriately treated Lumbar strain, initial encounter 09/16/2023 Anemia 09/08/2023 Assessment & Plan (09/08/2023 8:05 PM AIR TUBE RELEASER): -possible hx of GI bleed in June, [...] disease) Assessment & Plan (09/08/2023 5:10 AM AIR TUBE RELEASER): -continue pepcid Adjustment disorders, with mixed anxiety and dep ressed mood 09/07/2023 Assessment & Plan (09/08/2023 4:53 AM AIR TUBE RELEASER): Per Psychiatry Cannabis use disorder, moderate, dependence 01/2024 Assessment & Plan (09/08/2023 4:53 AM AIR TUBE RELEASER): Per Psychiatry History of syphilis 09/07/2023 Assessment & Plan (09/08/2023 12:28 PM AIR TUBE RELEASER): - Has history of Syphilis, treated in 2013 , -Treponema ab + and RPR 1:4 on 08/29/23 when tested [facility] Contacted [facility] ( [place] ) for info To see if titers are coming down , left message with Nurse ( [phone]): Called back received, Patient diagnosed with late latent syphilis at [facility] in [place] on 10-11 : +RPR titer 1 :256, treponema -EIA positive Completed treatment with benzathine penicillin G x 3 doses given on November 21 2013, November 28 2013 and December 052013 -09-08-23 HIV 1/2 Abs +p24 Ag Non reactive Severe episode of recurrent major depressive disorder, without psychotic features 08/06/2023 Chronic pericarditis 06/16/2023 Acute idiopathic pericarditis 06/03/2023 COVID 05/22/2023 Assessment & Plan (05/22/2023 10:52 [...] & Plan (11/16/2023 4:40 PM CDT): Mr. 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 He says that he is sad about his grandmother passing, but is no longer suicidal because that's not what my mari would've wanted . He says that getting [...] apprec; h/o pericarditis Swer to [facility] with follow-up and dispo Assessment & Plan (07/26/2023 9:44 AM AIR TUBE RELEASER): Wes has been struggling for the last 4 years with unstable realtionships, unstable housing, difficulty finding and maintaining employment, and in and out of skilled nursing/nursing home/probation. He says that he is sad about his grandmother passing, but is no longer suicidal because that's not what my granemmy would've wanted . He says that getting [...] apprec; h/o pericarditis Swer to [facility] with follow-up and dispo Assessment & Plan (07/25/2023 12:24 PM AIR TUBE RELEASER): Wes has been struggling for the last 4 years with unstable realtionships, unstable housing, difficulty finding and maintaining employment, and in and out of skilled nursing/nursing home/probation. He says that he is sad about [...] apprec; h/o pericarditis Swer to [facility] with follow-up and dispo Assessment & Plan [...] inconsistent, symptoms not severe enough to constitute lauar, and timeline not consistent with manic episode. These symptoms are complicated by what the patient describes as command auditory hallucination and visual hallucinations which are distressing to the patient. These hallucinations only occur in the setting of mood episodes, and never occur without any mood episodes. He was started on Abilify and Depakote in [place], and reports that his visual and auditory hallucinations have resolved. - Start Sertraline 50mg, consider titrating - Obtain further information about the hallucinations - Haldol 5 p.o. or Haldol 5/Ativan 2 IM PRN for agitation - Suicide/elopement/safety precautions - Therapeutic milieu - q15 min safety checks Asthma 05/22/2023 Assessment & Plan (09/29/2024 1:14 PM AIR TUBE RELEASER): Mild. Prn albuterol Assessment & Plan (09/08/2023 5:12 AM AIR TUBE RELEASER): - no PFTs available , currently not in exacerbation, - PRN albuteral Assessment & Plan (07/25/2023 10:37 AM AIR TUBE RELEASER): Intermittent. No symptoms. Uses albuterol prn at [...] additional information from patient's/collateral if patient consents ST elevation (STEMI) myocard ial infarction of unspecified site 06/02/2022 Overview (11/04/2024): Added automatically from request for surgery [id number] Resolved Problems Problem Noted Date Diagnosed Date Resolved Date history of Pericarditis 09/07/202310/31 Assessment & Plan (09/08/2023 8:04 PM AIR TUBE RELEASER): - patient has not been able to afford colchicine and reports benefit when getting doses in ED visits - continue colchicine 0.6 mg po BID and monitor for side effects, it should be held if nausea, vomiting, diarrhea -Hold NSAIDS as -he as not tolerated with significant Gi side effects -Patient was seen by Cardiology as outpatient on 09/02/2023 at [facility] and has an [...] psychiatry Assessment & Plan (07/25/2023 10:36 AM AIR TUBE RELEASER): Pt w/ hx of depression and anxiety presents w/ SI after grandmother passing. Didn't have intent or plan. Denies SI now -mgt per primary Encounters Date Type Department Care Team Description 11/04/2024 12:54 AM CDT - 11/04/2024 12:05 PM CDT Emergency [address] [address] Neel So MD Depression with suicidal ideation (Primary Dx); Abdominal pain; Amphetamine abuse (HCC); Sinus bradycardia Discharge Disposition: Discharge to psych hospital or psych unit 09/28/2024 2:49 AM AIR TUBE RELEASER - 10/01/2024 11:55 AM AIR TUBE RELEASER Hospital Encounter [facility] [address] [place] [id number] Torres Armenta MD L'Ecuyer, Suzanne, MD Svancarek, Bridgette Blythe, MD Safa, Irina Barlow MD Suicidal ideation (Primary Dx); [...] the past 12 months has th e electric, gas, oil, or water company threatened to [...] How often do you attend chur or hinduism services? Never 09/29/2024 Do you belong to any clubs o r organizations such as evangelical groups, unions, fraternal or athletic groups, or [...] staff should administer the PHQ-9) 2 09/07/2023 [facility] - Occupational Stress Questionnaire Answer Date Recorded [...] At any time in the past 12 [facility], were you homeless or living in a half-way (including now)? No 09/29/2024 Personal Safety Answer Date Recorded Have you ever been in or are you currently in a harmful physical or emotional relationship or is someone making you feel afraid or unsafe? Denies 11/04/2024 Education Answer Date Recorded What is the highest level of school you have completed or the highest degree you have received? GED or equivalent 01/2024 Sex and Gender Information Value Date Recorded Sex Assigned at Not on file Legal Sex Male 5:49 PM AIR TUBE RELEASER Gender Identity Not on file Sexual Orientation Not on file Obstetrics History Last Filed Vital Signs Vital Sign Reading Time Taken Comments Blood Pressure 132/76 11/04/2024 11:15 AM CDT Pulse 74 11/04/2024 11:15 AM CDT Temperature 37.3 C (99.1 F) 11/04/2024 12:45 AM CDT Respiratory Rate 15 11/04/2024 11:15 AM CDT Oxygen Saturation 100% 11/04/2024 11:15 AM CDT Inhaled Oxygen Concentration - - Weight 74.8 kg (165 lb) 11/04/2024 12:45 AM CDT Height 180.3 cm (5' 11 ) 11/04/2024 12:45 AM CDT Body Mass Index 23.01 11/04/2024 12:45 AM CDT Plan of Treatment Health Maintenance Due Date Last Done Comments Hepatitis C Screening 1990 DTaP/Tdap/Td Vaccine (5 - Tdap) 2002 04/04/1996, 08/20/1992, 06/20/1992, Additional history exists Varicella Vaccines (1 of 2 - 13+ 2-dose series) 2004 Regular Well Visit/Exam 18-64 2009 Pneumococcal vaccine <65 (1 of 2 - PCV) 2010 Depression Screening 09/06/2024 09/06/2023, 09/06/2023, 05/21/2023, Additional history exists Influenza Vaccine (Season Ended) 2025 Hepatitis B Screening Completed 09/21/2000, 996 HPV Vaccines Aged Out No longer eligi ble based on patient's age to complete this topic Procedures Procedure Name Priority Date/Time Associated Diagnosis Comments CT ABDOMEN PELVIS W CONTRAST ED 11/04/2024 5:40 AM CDT DRUGS OF ABUSE SCREEN, URINE WITHOUT CONFIRMATION STAT 11/04/2024 5:27 AM CDT URINALYSIS AND REFLEX TO MICROSCOPIC AND CULTURE STAT 11/04/2024 5:27 AM CDT B ABO / RH CONFIRMATION TESTING STAT 11/04/2024 4:17 AM CDT TROPONIN T HIGH-SENSITIVITY 2-HOUR Timed 11/04/2024 4:17 AM CDT EGFR STAT 11/04/2024 1:26 AM CDT DIFFERENTIAL AUTO STAT 11/04/2024 1:2 6 AM CDT ANTIBODY SCREEN STAT 11/04/2024 1:26 AM CDT ABO/RH STAT 11/04/2024 1:26 AM CDT TROPONIN T HIGH-SENSITIVITY SERIES (BASELINE, 2HR, 4HR, 6HR) STAT 11/04/2024 1:26 AM CDT THYROID FUNCTION CASCADE STAT 11/04/2024 1:26 AM CDT PHOSPHORUS STAT 11/04/2024 1:26 AM CDT MAGNESIUM STAT 11/04/2024 1:26 AM CDT ETHANOL STAT 11/04/2024 1:26 AM CDT APTT STAT 11/04/2024 1:26 AM CDT PROTIME-INR STAT 11/04/2024 1:26 AM CDT TYPE AND SCREEN STAT 11/04/2024 1:26 AM CDT LACTATE STAT 11/04/2024 1:26 AM CDT LIPASE STAT 11/04/2024 1:26 AM CDT COMPREHENSIVE METABOLIC PANEL STAT 11/04/2024 1:26 AM CDT CBC WITH AUTO DIFFERENTIAL STAT 11/04/2024 1:26 AM CDT INFLUENZA A/B, RSV, AND COVID-19 PCR STAT 11/04/2024 1:26 AM CDT ECG 12-LEAD STAT 11/04/2024 1:07 AM CDT N. GONORRHOEAE/C. TRACHOMATIS AMPLIFICATION Routine 09/30/2024 11:18 AM AIR TUBE RELEASER URINALYSIS, MICROSCOPIC ONLY STAT 09/28/2024 3:44 AM AIR TUBE RELEASER DRUGS OF ABUSE SCREEN, URINE WITHOUT CONFIRMATION STAT 09/28/2024 3:44 AM AIR TUBE RELEASER URINALYSIS AND REFLEX TO MICROSCOPIC STAT 09/28/2024 3:44 AM AIR TUBE RELEASER IRON PROFILE W/ IBC STAT 09/28/2024 3 :15 AM AIR TUBE RELEASER FERRITIN STAT 09/28/2024 3:15 AM AIR TUBE RELEASER TSH STAT 09/28/2024 3:15 AM AIR TUBE RELEASER VITAMIN B12 STAT 09/28/2024 3:15 AM AIR TUBE RELEASER ETHANOL STAT 09/28/2024 3:15 AM AIR TUBE RELEASER LIPID PANEL STAT 09/28/2024 1:27 AM AIR TUBE RELEASER EGFR STAT 09/28/2024 1:27 AM AIR TUBE RELEASER DIFFERENTIAL AUTO STAT 09/28/2024 1:2 7 AM AIR TUBE RELEASER LIPASE STAT 09/28/2024 1:27 AM AIR TUBE RELEASER COMPREHENSIVE METABOLIC PANEL STAT 09/28/2024 1:27 AM AIR TUBE RELEASER CBC WITH AUTO DIFFERENTIAL STAT 09/28/2024 1:27 AM AIR TUBE RELEASER RPR STAT 09/28/2024 1:27 AM AIR TUBE RELEASER HIV 1/2 ANTIBODY PLUS P24 ANTIGEN STAT 09/28/2024 1:27 AM AIR TUBE RELEASER RESPIRATORY PATHOGEN PANEL STAT 09/27/2024 10:38 PM AIR TUBE RELEASER from Last 3 Months Results * CT Abdomen Pelvis W Contrast (11/04/2024 5:40 AM CDT) Anatomical Region Laterality Modality Body N/A Computed Tomogra phy 11/04/2024 5:51 AM CDT Narrative 11/04/2024 6:01 AM CDT EXAM DESCRIPTION: CT ABDOMEN PELVIS W CONTRAST REASON FOR STUDY: periumbilical pain Reports methamphetamine abuse and sig social stressors (cousin recently shot). Also c/o periumbilical pain. No nausea/vomiting, diarrhea/constipation, urine Sx, CP, SOB, URI Sx. He has a PMHx of pericarditis, alcohol use, marijuana and amphetamine abuse, tobacco dependence, asthma, depression. Past Medical History: Diagnosis Date Adjustment disorder Alcohol use Asthma Depression with suicidal ideation 12/06/2023 Marijuana use Pericarditis Tobacco use TECHNIQUE: CT scan of the abdomen and pelvis performed with intravenous and without oral contrast using helical scanning technique with dynamic intravenous contrast injection. Reconstructed coronal and sagittal MPR images reviewed. All images stored on PACS. Automated exposure control was used as a dose optimization technique for this examination. CONTRAST TYPE/DOSE: 94mL of IOVERSOL 350 MG IODINE/ML INTRAVENOUS SYRINGE injected via intravenous COMPARISON: CT of the abdomen and pelvis of November 02, 2023. FINDINGS: LOWER CHEST: The lung bases are clear. LIVER: The liver is normal in attenuation without focal lesion. GALLBLADDER: The gallbladder is contracted. BILE DUCTS: No intrahepatic or extrahepatic ductal dilatation. PANCREAS: Normal. SPLEEN: Normal size. No focal lesions. ADRENALS: Normal. KIDNEYS/URINARY TRACT: There is a small low-density cyst in the right kidney, unchanged. There are no urinary tract stones. There is no hydronephrosis or hydroureter. The bladder is collapsed. VASCULATURE: No acute abnormality seen. No abdominal aortic aneurysm. GI: The stomach appears normal. There is no significant small bowel dilation or visible thickening. No gross colonic abnormalities identified. The appendix is not visualized, however, there are no pericecal inflammatory changes seen to suggest appendicitis. PERITONEUM/MESENTERY: No ascites or free air. LYMPH NODES: There are no enlarged lymph nodes seen by CT size criteria. REPRODUCTIVE: The prostate and seminal vesicles are unremarkable. MUSCULOSKELETAL: No significant abnormality. OTHER: No other abnormality. IMPRESSION: No acute intra-abdominal or pelvic abnormality seen. THIS IS AN ELECTRONICALLY VERIFIED FINAL REPORT 11/04/2024 6:01 AM - Electronically signed by Farida Mahmood M.D. SN T: Report ID: [id number] Reading Location: [id number] Procedure Note Farida Mahmood MD - 11/04/2024 EXAM DESCRIPTION: CT ABDOMEN PELVIS W CONTRAST REASON FOR STUDY: periumbilical pain Reports methamphetamine abuse and sig social stressors (cousin recentlyshot). Also c/o periumbilical pain. No nausea/vomiting, diarrhea/constipation,urine Sx, CP, SOB, URI Sx. He has a PMHx of pericarditis, alcohol use, marijuanaand amphetamine abuse, tobacco dependence, asthma, depression. PastMedical History: Diagnosis Date Adjustment disorder Alcohol useAsthma Depression with suicidal ideation 12/06/2023 Marijuana use Pericarditis Tobacco use TECHNIQUE: CT scan of the abdomen and pelvis performed with intravenousand without oral contrast using helical scanning technique with dynamic intravenous contrast injection. Reconstructed coronal and sagittal MPRimages reviewed. All images stored on PACS. Automated exposure control was usedas a dose optimization technique for this examination. CONTRAST TYPE/DOSE: 94mL of IOVERSOL 350 MG IODINE/ML INTRAVENOUSSYRINGE injected via intravenous COMPARISON: CT of the abdomen and pelvis of November 02, 2023. FINDINGS: LOWER CHEST: The lung bases are clear. LIVER: The liver is normal in attenuation without focal lesion. GALLBLADDER: The gallbladder is contracted. BILE DUCTS: No intrahepatic or extrahepatic ductal dilatation. PANCREAS: Normal. SPLEEN: Normal size. No focal lesions. ADRENALS: Normal. KIDNEYS/URINARY TRACT: There is a small low-density cyst in the rightkidney, unchanged. There are no urinary tract stones. There is no hydronephrosisor hydroureter. The bladder is collapsed. VASCULATURE: No acute abnormality seen. No abdominal aortic aneurysm. GI: The stomach appears normal. There is no significant small bowel dilation or visible thickening. No gross colonic abnormalitiesidentified. The appendix is not visualized, however, there are no pericecalinflammatory changes seen to suggest appendicitis. PERITONEUM/MESENTERY: No ascites or free air. LYMPH NODES: There are no enlarged lymph nodes seen by CT size criteria. REPRODUCTIVE: The prostate and seminal vesicles are unremarkable. MUSCULOSKELETAL: No significant abnormality. OTHER: No other abnormality. IMPRESSION: No acute intra-abdominal or pelvic abnormality seen. THIS IS AN ELECTRONICALLY VERIFIED FINAL REPORT 11/04/2024 6:01 AM - Electronically signed by Farida Mahmood M.D. SN T: Report ID: [id number] Reading Location: [place] [address] Neel So MD IM CT PROCEDURES Final Re sult * Urinalysis reflex to microscopic and culture Urine (11/04/2024 5:27 AM CDT) Color, ur Yellow Yellow Clarity, ur Clear Clear [facility] Specific gravity, ur 1.021 1.003 - 1.030 [facility] pH, urine 6.5 [facility] Comment: Interpretive Data U rine pH is affected by diet, medications, systemic acid-base disturbances, and renal tubular function. pH may affect urinary stone formation. For example, urine pH below 6.0 may help reduce the tendency for calcium phosphate stones and pH greater than 6.0 may reduce the tendency for uric acid stone formation. Source: [place] [facility] Current Interpretive Data was last revised on 2017 Protein, ur ql Negative Negative [facility] Glucose, ur ql Negative Negative [facility] Ketones, ur Negative Negative [facility] Bilirubin, ur Negative Negative [facility] Blood, ur Negative Negative [facility] Urobilinogen, ur <2.0 <2.0 mg/dL [facility] Nitrite, ur Negative Negative [facility] Leukocyte esterase, ur Negative Negative [facility] UA reflex comment Reflex conditions for microscopic UA and culture not met. [facility] Urine 11/04/2024 5:27 AM CDT 11/04/2024 5:30 AM CDT Neel So MD LAB MICROBIOLOGY - GENERAL ORDERABLES Final Result [facility] [address] [facility] Department [place] [address] * (ABNORMAL) Drugs of Abuse Screen, Urine without Confirmation (11/04/2024 5:27 AM CDT) Pathologist [facility] Amphetamine, ur Not Detected CutOff 500ng/mL Comment: Interpretive Data - Amphetamines: Samples containing greater than 500 ng/mL d-methamphetamine or other cross-reacting amphetamine compounds are reported as positive. Amphetamine immunoassays are subject to significant false positive rates due to cross-reactivity of non-amphetamine drugs. Confirmatory testing required for definitive results. Current Interpretive Data was last reviewed 2023. Barbiturates, ur Not Detected CutOff 200ng/mL [facility] Comment: Interpretive Data - Barbiturates: Samples containing greater than 200 ng/mL secobarbital or other cross-reacting barbiturate compounds are reported as positive. False positive and false negative results are possible. Confirmatory testing required for definitive results. Current Interpretive Data was last reviewed 2023. Benzodiazepines, ur Not Detected CutOff 100ng/mL [facility] Comment: Interpretive Data - Benzodiazepines: Samples containing greater than 100 ng/mL nordiazepam or other cross-reacting compounds are reported as positive. False positive and false negative results are possible. Confirmatory testing required for definitive results. Current Interpretive Data was last reviewed 2023. Cannabinoids, ur Screen Positive, presumptive (A) CutOff 50 ng/mL [facility] Comment: Interpretive Data - Cannabinoids: Samples containing greater than 50 ng/mL delta-9 THC -COOH or other cross- reacting compounds are reported as positive. False positive and false negative results are possible. Confirmatory testing required for definitive results. Current Interpretive Data was last reviewed 2023. Cocaine, ur Not Detected CutOff 150ng/mL [facility] Comment: Interpretive Data - Cocaine: Samples containing greater than 150 ng/mL benzoylecgonine or other cross- reacting compounds are reported as positive. False positive and false negative results are possible. Confirmatory testing required for definitive results. Current Interpretive Data was last reviewed [id number]|2024-12-18 21:59:00|2024-12-18 21:58:00|XMS_ITS|BKG DAEMON|External Medical Summaries|[id number]|" Referral Summary Created on: December 18, 2024 Flaco Best Jr. : 1990 Sex: Male Author Organization [facility] Address [address] [place] [address] Care Team Providers Care Rn Palliative Name Role Phone No, Physician Primary Care Provider [phone] Encounters Date Type Department Care Team Description 11/04/2024 12:54 AM CDT - 11/04/2024 12:05 PM CDT Emergency [facility] [address] [place] [address] Neel So MD Depression with suicidal ideation (Primary Dx); Abdominal pain; Amphetamine abuse (HCC); Sinus bradycardia Discharge Disposition: Discharge to psych hospital or psych unit 09/28/2024 2:49 AM AIR TUBE RELEASER - 10/01/2024 11:55 AM AIR TUBE RELEASER Hospital Encounter [facility] [address] [place] [id number] Torres Armenta MD L'Ecuyer, MD Ivy Dixon, [...] 09/30/2024 Assessment & Plan (09/30/2024 9:09 AM AIR TUBE RELEASER): Will try to obtain iron studies I asked SW to help w/ PCP followup Epigastric pain 09/30/2024 Assessment & Plan (09/30/2024 9:17 AM AIR TUBE RELEASER): When asked where his pericarditis pain is, he points to the epigastrium. When I saw him in 11/2023, I had requested an H pylori stool antigen, which we were not able to obtain. -Try again to obtain H pylori antigen (especially w/ history of anemia) Depression 09/29/2024 Assessment & Plan (09/29/2024 1:17 PM AIR TUBE RELEASER): As per psychiatry Will addon a TSH Pericarditis 09/29/2024 Assessment & Plan (09/30/2024 9:10 AM AIR TUBE RELEASER): Currently asymptomatic. Will obtain EKG. Will restart colchicine if symptoms recurs EKG w/ diffuse ST elevation in II, III, aVF, and V1-6, with no IN depression This might also be early repolarization See my notes from 11/16/23 and 11/17/23 for my thought process then He has a structural design engineer (Dr Rivera, in [place]) with whom he can follow up Routine general medical exam ination at a health care facility 09/29/2024 Assessment & Plan (09/29/2024 1:17 PM AIR TUBE RELEASER): HIV, RPR negative Will recheck here Addon B12, TSH GERD (gastroesophageal reflux disease) Assessment & Plan (09/29/2024 1:18 PM AIR TUBE RELEASER): Hold off PPI for now as he notes no symptoms of acid reflux. Low threshold to restart. The chest pain (when present) he notes is epigastric so that may be a component of GERD Renal lesion 09/29/2024 Assessment & Plan (09/30/2024 9:09 AM AIR TUBE RELEASER): 11/02/23 CT: There are 3 low-attenuation lesions [...] 08/14/23, 11/02/23 w/ diffuse ST elevation, w/ IN depression) and a negative ischemic workup (including [...] follows w/ Dr Cat Choudhary (cardiology w/ [facility]), which he will follow up with Plan: [...] 11/16/2023 Assessment & Plan (09/30/2024 9:11 AM AIR TUBE RELEASER): B12 300, same as 11/2023. Will replete [...] 11/16/2023 Assessment & Plan (09/30/2024 9:11 AM AIR TUBE RELEASER): Late latent, appropriately treated. See my 11/15/24 note Assessment & Plan (11/16/2023 1:25 PM CDT): As per my colleague Dr Bynum (see 09/07/23 medicine c/s note): - Has history of Syphilis, treated in 2013 , -Treponema ab + and RPR 1:4 on 08/29/23 when tested at [facility] ED Contacted [facility] ( [place] ) for info To see if titers are coming down , left message with Nurse ( [phone]): Called back received, Patient diagnosed with late latent syphilis at [facility] in [place] on 10-11 : +RPR titer 1 :256, treponema -EIA positive Completed treatment with benzathine penicillin G x 3 doses given on November 21 2013, November 28 2013 and December 052013 So appropriately treated Lumbar strain, initial encounter 09/16/2023 Anemia 09/08/2023 Assessment & Plan (09/08/2023 8:05 PM AIR TUBE RELEASER): -possible hx of GI bleed in June, [...] disease) Assessment & Plan (09/08/2023 5:10 AM AIR TUBE RELEASER): -continue pepcid Adjustment disorders, with mixed anxiety and dep ressed mood 09/07/2023 Assessment & Plan (09/08/2023 4:53 AM AIR TUBE RELEASER): Per Psychiatry Cannabis use disorder, moderate, dependence 01/2024 Assessment & Plan (09/08/2023 4:53 AM AIR TUBE RELEASER): Per Psychiatry History of syphilis 09/07/2023 Assessment & Plan (09/08/2023 12:28 PM AIR TUBE RELEASER): - Has history of Syphilis, treated in 2013 , -Treponema ab + and RPR 1:4 on 08/29/23 when tested at [facility] ED Contacted [facility] ( [place] ) for info To see if titers are coming down , left message with Nurse ( [phone]): Called back received, Patient diagnosed with late latent syphilis at [facility] in [place] on 10-11 : +RPR titer 1 :256, treponema -EIA positive Completed treatment with benzathine penicillin G x 3 doses given on November 21 2013, November 28 2013 and December 052013 -2-7-24 HIV 1/2 Abs +p24 Ag Non reactive Severe episode of recurrent major depressive disorder, without psychotic features 08/06/2023 Chronic pericarditis 06/16/2023 Acute idiopathic pericarditis 06/03/2023 COVID 05/22/2023 Assessment & Plan (05/22/2023 10:52 [...] & Plan (11/16/2023 4:40 PM CDT): Mr. 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 He says that he is sad about [...] apprec; h/o pericarditis Swer to [facility] with follow-up and dispo Assessment & Plan (07/26/2023 9:44 AM AIR TUBE RELEASER): Wes has been struggling for the last 4 years with unstable realtionships, unstable housing, difficulty finding and maintaining employment, and in and out of skilled nursing/nursing home/probation. He says that he is sad about [...] apprec; h/o pericarditis Swer to [facility] with follow-up and dispo Assessment & Plan (07/25/2023 12:24 PM AIR TUBE RELEASER): Wes has been struggling for the last 4 years with unstable realtionships, unstable housing, difficulty finding and maintaining employment, and in and out of skilled nursing/nursing home/probation. He says that he is sad about [...] apprec; h/o pericarditis Swer to [facility] with follow-up and dispo Assessment & Plan [...] was started on Abilify and Depakote in [place], and reports that his visual and auditory hallucinations have resolved. - Start Sertraline 50mg, consider titrating - Obtain further information about the hallucinations - Haldol 5 p.o. or Haldol 5/Ativan 2 IM PRN for agitation - Suicide/elopement/safety precautions - Therapeutic milieu - q15 min safety checks Asthma 05/22/2023 Assessment & Plan (09/29/2024 1:14 PM AIR TUBE RELEASER): Mild. Prn albuterol Assessment & Plan (09/08/2023 5:12 AM AIR TUBE RELEASER): - no PFTs available , currently not in exacerbation, - PRN albuteral Assessment & Plan (07/25/2023 10:37 AM AIR TUBE RELEASER): Intermittent. No symptoms. Uses albuterol prn at [...] additional information from patient's/collateral if patient consents ST elevation (STEMI) myocard ial infarction of unspecified site 06/02/2022 Overview (11/04/2024): Added automatically from request for surgery [id number] Resolved Problems Problem Noted Date Diagnosed Date Resolved Date history of Pericarditis 09/07/202310/31 Assessment & Plan (09/08/2023 8:04 PM AIR TUBE RELEASER): - patient has not been able to afford colchicine and reports benefit when getting doses in ED visits - continue colchicine 0.6 mg po BID and monitor for side effects, it should be held if nausea, vomiting, diarrhea -Hold NSAIDS as -he as not tolerated with significant Gi side effects -Patient was seen by Cardiology as outpatient on 09/02/2023 at [facility]) and has an [...] psychiatry Assessment & Plan (07/25/2023 10:36 AM AIR TUBE RELEASER): Pt w/ hx of depression and anxiety presents w/ SI after grandmother passing. Didn't have intent or plan. Denies SI now -mgt per primary Social History Tobacco Use Types Packs/Day Years Used Date Smoking Tobacco: Former Cigarettes Tobacco Cessation:Counseling Given: Not Answered Alcohol Use Standard Drinks/Week Comments Defer 0 (1 standard drink = 0.6 oz pur e alcohol) [facility] [employer] Answer Date Recorded In the past 12 months has e [place], gas, oil, or water [employer] threatened to shut off services in your [...] often do you attend chur ch or hinduism services? Never 09/29/2024 Do you belong to any clubs o r organizations such as evangelical groups, unions, fraternal or athletic groups, or [...] staff should administer the PHQ-9) 2 09/07/2023 [facility] - Occupational Stress Questionnaire Answer Date Recorded [...] time in the past 12 m [facility], were you homeless or living in a half-way (including now)? No 09/29/2024 Personal Safety Answer Date Recorded Have you ever been in or are you currently in a harmful physical or emotional relationship or is someone making you feel afraid or unsafe? Denies 11/04/2024 Education Answer Date Recorded What is the highest level of school you have completed or the highest degree you have received? GED or equivalent 01/2024 Sex and Gender Information Value Date Recorded Sex Assigned at Not on file Legal Sex Male 5:49 PM AIR TUBE RELEASER Gender Identity Not on file Sexual Orientation Not on file Last Filed Vital Signs Vital Sign Reading Time Taken Comments Blood Pressure 132/76 11/04/2024 11:15 AM CDT Pulse 74 11/04/2024 11:15 AM CDT Temperature 37.3 C (99.1 F) 11/04/2024 12:45 AM CDT Respiratory Rate 15 11/04/2024 11:15 AM CDT Oxygen Saturation 100% 11/04/2024 11:15 AM CDT Inhaled Oxygen Concentration - - Weight 74.8 kg (165 lb) 11/04/2024 12:45 AM CDT Height 180.3 cm (5' 11 ) 11/04/2024 12:45 AM CDT Body Mass Index 23.01 11/04/2024 12:45 AM CDT Functional Status * Are you deaf or [...] Name Priority Date/Time Associated Diagnosis Comments CT ABDOMEN PELVIS W CONTRAST ED 11/04/2024 5:40 AM CDT DRUGS OF ABUSE SCREEN, URINE WITHOUT CONFIRMATION STAT 11/04/2024 5:27 AM CDT URINALYSIS AND REFLEX TO MICROSCOPIC AND CULTURE STAT 11/04/2024 5:27 AM CDT B ABO / RH CONFIRMATION TESTING STAT 11/04/2024 4:17 AM CDT TROPONIN T HIGH-SENSITIVITY 2-HOUR Timed 11/04/2024 4:17 AM CDT EGFR STAT 11/04/2024 1:26 AM CDT DIFFERENTIAL AUTO STAT 11/04/2024 1:2 6 AM CDT ANTIBODY SCREEN STAT 11/04/2024 1:26 AM CDT ABO/RH STAT 11/04/2024 1:26 AM CDT TROPONIN T HIGH-SENSITIVITY SERIES (BASELINE, 2HR, 4HR, 6HR) STAT 11/04/2024 1:26 AM CDT THYROID FUNCTION CASCADE STAT 11/04/2024 1:26 AM CDT PHOSPHORUS STAT 11/04/2024 1:26 AM CDT MAGNESIUM STAT 11/04/2024 1:26 AM CDT ETHANOL STAT 11/04/2024 1:26 AM CDT APTT STAT 11/04/2024 1:26 AM CDT PROTIME-INR STAT 11/04/2024 1:26 AM CDT TYPE AND SCREEN STAT 11/04/2024 1:26 AM CDT LACTATE STAT 11/04/2024 1:26 AM CDT LIPASE STAT 11/04/2024 1:26 AM CDT COMPREHENSIVE METABOLIC PANEL STAT 11/04/2024 1:26 AM CDT CBC WITH AUTO DIFFERENTIAL STAT 11/04/2024 1:26 AM CDT INFLUENZA A/B, RSV, AND COVID-19 PCR STAT 11/04/2024 1:26 AM CDT ECG 12-LEAD STAT 11/04/2024 1:07 AM CDT N. GONORRHOEAE/C. TRACHOMATIS AMPLIFICATION Routine 09/30/2024 11:18 AM AIR TUBE RELEASER URINALYSIS, MICROSCOPIC ONLY STAT 09/28/2024 3:44 AM AIR TUBE RELEASER DRUGS OF ABUSE SCREEN, URINE WITHOUT CONFIRMATION STAT 09/28/2024 3:44 AM AIR TUBE RELEASER URINALYSIS AND REFLEX TO MICROSCOPIC STAT 09/28/2024 3:44 AM AIR TUBE RELEASER IRON PROFILE W/ IBC STAT 09/28/2024 3 :15 AM AIR TUBE RELEASER FERRITIN STAT 09/28/2024 3:15 AM AIR TUBE RELEASER TSH STAT 09/28/2024 3:15 AM AIR TUBE RELEASER VITAMIN B12 STAT 09/28/2024 3:15 AM AIR TUBE RELEASER ETHANOL STAT 09/28/2024 3:15 AM AIR TUBE RELEASER LIPID PANEL STAT 09/28/2024 1:27 AM AIR TUBE RELEASER EGFR STAT 09/28/2024 1:27 AM AIR TUBE RELEASER DIFFERENTIAL AUTO STAT 09/28/2024 1:2 7 AM AIR TUBE RELEASER LIPASE STAT 09/28/2024 1:27 AM AIR TUBE RELEASER COMPREHENSIVE METABOLIC PANEL STAT 09/28/2024 1:27 AM AIR TUBE RELEASER CBC WITH AUTO DIFFERENTIAL STAT 09/28/2024 1:27 AM AIR TUBE RELEASER RPR STAT 09/28/2024 1:27 AM AIR TUBE RELEASER HIV 1/2 ANTIBODY PLUS P24 ANTIGEN STAT 09/28/2024 1:27 AM AIR TUBE RELEASER RESPIRATORY PATHOGEN PANEL STAT 09/27/2024 10:38 PM AIR TUBE RELEASER from Last 3 Months Results * CT Abdomen Pelvis W Contrast (11/04/2024 5:40 AM CDT) Anatomical Region Laterality Modality Body N/A Computed Tomogra phy 11/04/2024 5:51 AM CDT Narrative 11/04/2024 6:01 AM CDT EXAM DESCRIPTION: CT ABDOMEN PELVIS W CONTRAST REASON FOR STUDY: periumbilical pain Reports methamphetamine abuse and sig social stressors (cousin recently shot). Also c/o periumbilical pain. No nausea/vomiting, diarrhea/constipation, urine Sx, CP, SOB, URI Sx. He has a PMHx of pericarditis, alcohol use, marijuana and amphetamine abuse, tobacco dependence, asthma, depression. Past Medical History: Diagnosis Date Adjustment disorder Alcohol use Asthma Depression with suicidal ideation 12/06/2023 Marijuana use Pericarditis Tobacco use TECHNIQUE: CT scan of the abdomen and pelvis performed with intravenous and without oral contrast using helical scanning technique with dynamic intravenous contrast injection. Reconstructed coronal and sagittal MPR images reviewed. All images stored on PACS. Automated exposure control was used as a dose optimization technique for this examination. CONTRAST TYPE/DOSE: 94mL of IOVERSOL 350 MG IODINE/ML INTRAVENOUS SYRINGE injected via intravenous COMPARISON: CT of the abdomen and pelvis of November 02, 2023. FINDINGS: LOWER CHEST: The lung bases are clear. LIVER: The liver is normal in attenuation without focal lesion. GALLBLADDER: The gallbladder is contracted. BILE DUCTS: No intrahepatic or extrahepatic ductal dilatation. PANCREAS: Normal. SPLEEN: Normal size. No focal lesions. ADRENALS: Normal. KIDNEYS/URINARY TRACT: There is a small low-density cyst in the right kidney, unchanged. There are no urinary tract stones. There is no hydronephrosis or hydroureter. The bladder is collapsed. VASCULATURE: No acute abnormality seen. No abdominal aortic aneurysm. GI: The stomach appears normal. There is no significant small bowel dilation or visible thickening. No gross colonic abnormalities identified. The appendix is not visualized, however, there are no pericecal inflammatory changes seen to suggest appendicitis. PERITONEUM/MESENTERY: No ascites or free air. LYMPH NODES: There are no enlarged lymph nodes seen by CT size criteria. REPRODUCTIVE: The prostate and seminal vesicles are unremarkable. MUSCULOSKELETAL: No significant abnormality. OTHER: No other abnormality. IMPRESSION: No acute intra-abdominal or pelvic abnormality seen. THIS IS AN ELECTRONICALLY VERIFIED FINAL REPORT 11/04/2024 6:01 AM - Electronically signed by Farida Mahmood M.D. SN T: Report ID: [id number] Reading Location: [id number] Procedure Note Farida Mahmood MD - 11/04/2024 EXAM DESCRIPTION: CT ABDOMEN PELVIS W CONTRAST REASON FOR STUDY: periumbilical pain Reports methamphetamine abuse and sig social stressors (cousin recentlyshot). Also c/o periumbilical pain. No nausea/vomiting, diarrhea/constipation,urine Sx, CP, SOB, URI Sx. He has a PMHx of pericarditis, alcohol use, marijuanaand amphetamine abuse, tobacco dependence, asthma, depression. PastMedical History: Diagnosis Date Adjustment disorder Alcohol useAsthma Depression with suicidal ideation 12/06/2023 Marijuana use Pericarditis Tobacco use TECHNIQUE: CT scan of the abdomen and pelvis performed with intravenousand without oral contrast using helical scanning technique with dynamic intravenous contrast injection. Reconstructed coronal and sagittal MPRimages reviewed. All images stored on PACS. Automated exposure control was usedas a dose optimization technique for this examination. CONTRAST TYPE/DOSE: 94mL of IOVERSOL 350 MG IODINE/ML INTRAVENOUSSYRINGE injected via intravenous COMPARISON: CT of the abdomen and pelvis of November 02, 2023. FINDINGS: LOWER CHEST: The lung bases are clear. LIVER: The liver is normal in attenuation without focal lesion. GALLBLADDER: The gallbladder is contracted. BILE DUCTS: No intrahepatic or extrahepatic ductal dilatation. PANCREAS: Normal. SPLEEN: Normal size. No focal lesions. ADRENALS: Normal. KIDNEYS/URINARY TRACT: There is a small low-density cyst in the rightkidney, unchanged. There are no urinary tract stones. There is no hydronephrosisor hydroureter. The bladder is collapsed. VASCULATURE: No acute abnormality seen. No abdominal aortic aneurysm. GI: The stomach appears normal. There is no significant small bowel dilation or visible thickening. No gross colonic abnormalitiesidentified. The appendix is not visualized, however, there are no pericecalinflammatory changes seen to suggest appendicitis. PERITONEUM/MESENTERY: No ascites or free air. LYMPH NODES: There are no enlarged lymph nodes seen by CT size criteria. REPRODUCTIVE: The prostate and seminal vesicles are unremarkable. MUSCULOSKELETAL: No significant abnormality. OTHER: No other abnormality. IMPRESSION: No acute intra-abdominal or pelvic abnormality seen. THIS IS AN ELECTRONICALLY VERIFIED FINAL REPORT 11/04/2024 6:01 AM - Electronically signed by Farida Mahmood M.D. SN T: Report ID: [id number] Reading Location: [place] [id number] us Neel So MD IMG CT PROCEDURES Final Re sult * Urinalysis reflex to microscopic and culture Urine (11/04/2024 5:27 AM CDT) Color, ur Yellow Yellow Clarity, ur Clear Clear [facility] Specific gravity, ur 1.021 1.003 - 1.030 [facility] pH, urine 6.5 [facility] Comment: Interpretive Data U rine pH is affected by diet, medications, systemic acid-base disturbances, and renal tubular function. pH may affect urinary stone formation. For example, urine pH below 6.0 may help reduce the tendency for calcium phosphate stones and pH greater than 6.0 may reduce the tendency for uric acid stone formation. Source: [facility] Current Interpretive Data was last revised on 2017 Protein, ur ql Negative Negative [facility] Glucose, ur ql Negative Negative [facility] Ketones, ur Negative Negative [facility] Bilirubin, ur Negative Negative [facility] Blood, ur Negative Negative [facility] Urobilinogen, ur <2.0 <2.0 mg/dL [facility] Nitrite, ur Negative Negative [facility] Leukocyte esterase, ur Negative Negative [facility] UA reflex comment Reflex conditions for microscopic UA and culture not met. [facility] Urine 11/04/2024 5:27 AM CDT 11/04/2024 5:30 AM CDT Neel So MD LAB MICROBIOLOGY - GENERAL ORDERABLES Final Result [facility] [id number] [facility] Department of Laboratories [place], [place] [id number] * (ABNORMAL) Drugs of Abuse Screen, Urine without Confirmation (11/04/2024 5:27 AM CDT) Amphetamine, ur Not Detected [facility] 500ng/mL Comment: Interpretive Data - Amphetamines: Samples containing greater than 500 ng/mL d-methamphetamine or other cross-reacting amphetamine compounds are reported as positive. Amphetamine immunoassays are subject to significant false positive rates due to cross-reactivity of non-amphetamine drugs. Confirmatory testing required for definitive results. Current Interpretive Data was last reviewed 2023. Barbiturates, ur Not Detected CutOff 200ng/mL [facility] Comment: Interpretive Data - Barbiturates: Samples containing greater than 200 ng/mL secobarbital or other cross-reacting barbiturate compounds are reported as positive. False positive and false negative results are possible. Confirmatory testing required for definitive results. Current Interpretive Data was last reviewed 2023. Benzodiazepines, ur Not Detected CutOff 100ng/mL [facility] Comment: Interpretive Data - Benzodiazepines: Samples containing greater than 100 ng/mL nordiazepam or other cross-reacting compounds are reported as positive. False positive and false negative results are possible. Confirmatory testing required for definitive results. Current Interpretive Data was last reviewed 2023. Cannabinoids, ur Screen Positive, presumptive (A) CutOff 50 ng/mL [facility] Comment: Interpretive Data - Cannabinoids: Samples containing greater than 50 ng/mL delta-9 THC -COOH or other cross- reacting compounds are reported as positive. False positive and false negative results are possible. Confirmatory testing required for definitive results. Current Interpretive Data was last reviewed 2023. Cocaine, ur Not Detected CutOff 150ng/mL [facility] Comment: Interpretive Data - Cocaine: Samples containing greater than 150 ng/mL benzoylecgonine or other cross- reacting compounds are reported as positive. False positive and false negative results are possible. Confirmatory testing required for definitive results. Current Interpretive Data was last reviewed 2023. Fentanyl, Ur Not Detected CutOff 5 ng/mL [facility] Comment: Interpreti
--- OUTSIDE RECORDS SUMMARY | 2024-12-18 21:59 | XMS_ITS | Clinical Summary ---
Author Organization [facility] Address [address] [place] [address] Care Team Providers Care Operations Support Professionals Name Role Phone None, Provider MD Primary Care Provider Unavaila ble Allergies No known active allergies Medications ARIPiprazole (ABILIFY) 10 MG tablet Take 1 tablet (10 mg total) by mouth daily. 30 tablet 09/21/2023 Active lidocaine (LIDO SINTIA) 4 % patch Place 1 patch onto the skin daily. Remove & Discard patch within 12 hours or as directed 30 patch 10/01/2023 Active methocarbamol (ROBAXIN-750) 750 MG Tab Take 1 tablet (750 mg total) by mouth every 8 (eight) hours as needed. 30 tablet 10/01/2023 Active pantoprazole EC (PROTONIX) 40 MG tablet Take 1 tablet (40 mg total) by mouth daily. 30 tablet 10/07/2024 Active Active Problems Problem Noted Date Diagnosed Date Pericarditis (HHS/HCC) 06/16/2023 Acute blood loss anemia 06/16/2023 Hematemesis with nausea 06/16/2023 Encounters Date Type Department Care Team Description 11/10/2024 12:49 AM CDT - 11/10/2024 1:39 AM CDT Emergency [facility] [place] [address] Samuel Siddiqi NP Hand Pain (Right hand) Discharge Disposition: Home or Self Care (Routine Discharge) 11/10/2024 Travel 10/07/2024 1:49 AM CONDUCTOR AND ENGINEER - 10/07/2024 3:26 AM CONDUCTOR AND ENGINEER Emergency [facility] [place] [address] Ian Persaud MD Abdominal Pain Discharge Disposition: Home or Self Care (Routine Discharge) 10/07/2024 Travel from Last 3 Months Social History Tobacco Use Types Packs/Day Years Used Date Smoking Tobacco: Former Cigarettes Cigars Smokeless Tobacco: Never Tobacco Cessation:Counseling Given: Not Answered Alcohol Use Standard Drinks/Week Comments Yes 0 (1 standard drink = 0.6 oz pur e alcohol) socially [facility] Utilities Answer Date Recorded In the past 12 months has e [employer], gas, oil, or water [employer] threatened to shut off services in your [...] week 06/17/2023 How often do you attend [facility] or nondenominational services? 1 to 4 times per year 06/17/2023 Do you belong to any clubs o r organizations such as religion groups, unions, fraternal or athletic groups, or [...] Recorded Patient Health Questionnaire-2 Score 0 06/17/2023 [facility] - Occupational Stress [...] place to sleep or slept in a [facility] (including now)? No 06/17/2023 Housing Stability Vital [...] Sex Assigned at Male 09/12/2024 10:51 PM CONDUCTOR AND ENGINEER Legal Sex Male 4:43 PM CDT Gender Identity Not on file Sexual Orientation Not on file Last Filed Vital Signs Vital Sign Reading Time Taken Comments Blood Pressure 151/102 11/10/2024 12:46 AM CDT Pulse 88 11/10/2024 12:46 AM CDT Temperature 37.7 C (99.8 F) 11/10/2024 12:46 AM CDT Respiratory Rate 16 11/10/2024 12:46 AM CDT Oxygen Saturation 97% 11/10/2024 12:46 AM CDT Inhaled Oxygen Concentration - - Weight 74.8 kg (165 lb) 11/10/2024 12:46 AM CDT Height 180.3 cm (5' 11 ) 11/10/2024 12:46 AM CDT Body Mass Index 23.01 11/10/2024 12:46 AM CDT Plan of Treatment Health Maintenance Due Date Last Done Comments Annual Physical 1994 Hepatitis B Vaccines (3 of 3 - 3-dose series) 11/16/2000 09/21/2000, 04/04/1996 DTaP, Tdap and Td Vaccines (5 - Tdap) 2002 04/04/1996, 08/20/1992, 06/20/1992, Additional history exists Hepatitis C 2009 COVID-19 Vaccine (2023- season) 2024 HPV Vaccines Aged Out No longer eligi ble based on patient's age to complete this topic Meningococcal B Vaccine Aged Out No l onger eligible based on patient's age to complete this topic Meningococcal Vaccine Aged Out No gila jorge eligible based on patient's age to complete this topic Pneumococcal Vaccine: Pediatrics (0 to 5 Years) and At-Risk Patients (6 to 49 Years) Aged Out No longer eligible based on patient's age to complete this topic RSV Immunizations Under 20 Months Aged Out No longer eligible based on patient's age to complete this topic Goals Goal Patient Goal Type Associated Problems Recent Progress Patient-Stated? Author Patient will return to prior living situation and remain independent in ADLs upon discharge from hospital Lifestyle No 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, ARTS ADMINISTRATOR Procedures Procedure Name Priority Date/Time Associated Diagnosis Comments XR HAND RT 3V STAT 11/10/2024 1:[address] ABD+PEL W CON STAT 10/07/2024 2:23 AM CONDUCTOR AND ENGINEER LIPASE STAT 10/07/2024 2:04 AM CONDUCTOR AND ENGINEER COMPREHENSIVE METABOLIC PANEL STAT 10/07/2024 2:04 AM CONDUCTOR AND ENGINEER CBC W/DIFF AUTOMATED STAT 10/07/2024 2:04 AM CONDUCTOR AND ENGINEER from Last 3 Months Results * XR HAND RT 3V (11/10/2024 1:04 AM CDT) Anatomical Region Laterality Modality Hand Radiographic Macarena ging 11/10/2024 1:06 AM CDT Impressions 11/10/2024 1:07 AM CDT IMPRESSION: 1. No definite acute fracture or dislocation identified in the right hand. Referred By: Interpreted By: Vinh Arita MD, 11/10/2024 1:06 AM Narrative 11/10/2024 1:07 AM [address]T [address] [address] EXAMINATION: XR HAND RT 3V EXAM time: 11/10/2024 12:47 AM CLINICAL HISTORY: Right hand injury. Right third finger injury. COMPARISON: None TECHNIQUE: Right hand, 3 views. FINDINGS: No definite acute fracture or dislocation identified in the right hand. No remarkable arthritic changes. No abnormal soft tissue densities. Procedure Note Vinh Arita MD - 04/11/[address] [address] EXAMINATION: XR HAND RT 3V EXAM time: 11/10/2024 12:47 AM CLINICAL HISTORY: Right hand injury. Right third finger injury. COMPARISON: None TECHNIQUE: Right hand, 3 views. FINDINGS: No definite acute fracture or dislocation identified in the right hand. Noremarkable arthritic changes. No abnormal soft tissue densities. IMPRESSION: 1. No definite acute fracture or dislocation identified in the righthand. Referred By: Interpreted By: Vinh Arita MD, 11/10/2024 1:06 AM Samuel Siddiqi NP GENERAL IMAGING Final Result * CT ABD+PEL W IV CON ONLY (10/07/2024 2:23 AM CONDUCTOR AND ENGINEER) Anatomical Region Laterality Modality Abdomen Computed Tomogra phy 10/07/2024 2:25 AM CONDUCTOR AND ENGINEER Impressions 10/07/2024 2:32 AM CONDUCTOR AND ENGINEER IMPRESSION: 1. No definite acute CT findings [...] 10/07/2024 2:25 AM Narrative 10/07/2024 2:32 AM CONDUCTOR AND ENGINEER [address] [address] EXAMINATION: CT ABD+PEL W CON, 10/07/2024 2:25 [...] Procedure Note Jeremiah Sam MD - 10/07/[address] [address] EXAMINATION: CT ABD+PEL W CON, 10/07/2024 2:25 [...] Jeremiah Sam MD, 10/07/2024 2:[address] Final Result * (ABNORMAL) COMPREHENSIVE METABOLIC PANEL (10/07/2024 2:04 AM CONDUCTOR AND ENGINEER) GLUCOSE 115(H) 70 - 99 MG/DL 10/07/2024 2:54 AM CONDUCTOR AND ENGINEER [facility] BUN 14 7 - 18 MG/DL 10/07/2024 2:54 AM CONDUCTOR AND ENGINEER [facility] CREATININE S/P/B 1.24 0.7 - 1.3 MG/DL 10/07/2024 2:54 AM [facility] SODIUM S/P/B 140 136 - 145 MMOL/L 10/07/2024 2:54 AM [facility] POTASSIUM S/P/B 3.7 3.5 - 5.1 MMOL/L 10/07/2024 2:54 AM [facility] CHLORIDE S/P/B 110 97 - 115 MMOL/L 10/07/2024 2:54 AM [facility] CO2 28.8 21 - 32 MMOL/L 10/07/2024 2:54 AM [facility] CALCIUM S/P/B 8.4(L) 8.5 - 10.1 MG/DL 10/07/2024 2:54 AM [facility] BILIRUBIN TOTAL S/P/B 0.2 0.2 - 1.2 MG/DL 10/07/2024 2:54 AM [facility] Comment: THIS ASSAY IS NOT RECOMMENDED FOR PATIENTS UNDERGOING TREATMENT WITH ELTROMBOPAG DUE TO THE POTENTIAL FOR FALSELY ELEVATED RESULTS. TOTAL PROTEIN S/P/B 7.3 6.4 - 8.2 G/DL 10/07/2024 2:54 AM [facility] ALBUMIN S/P/B 3.4 3.4 - 5.0 G/DL 10/07/2024 2:54 AM [facility] AST 15 15 - 37 U/L 10/07/2024 2:54 AM [facility] ALT 26 16 - 60 U/L 10/07/2024 2:54 AM [facility] ALKALINE PHOSPHATASE S/P/B 71 50 - 136 U/L 10/07/2024 2:54 AM [facility] ANION GAP 1.2(L) 2 - 10 MMOL/L 10/07/2024 2:54 AM [facility] BUN CREATININE RATIO 11.3 6 - 26 10/07/2024 2:54 AM [facility] A/G RATIO 0.9(L) 1.0 - 2.0 RATIO 10/07/2024 2:54 AM [facility] GFR ESTIMATE 79(L) >90 ML/MIN/1.7 3 M2 10/07/2024 2:54 AM [facility] Comment: NOTE: eGFR is not calculated for patients <18 years of age or gender unknown. This is an estimated GFR calculation using the new CKD EPI creatinine equation without race and so does not require a correction factor for race. This estimated GFR should not be used for calculating drug doses. 10/07/2024 2:04 AM CONDUCTOR AND ENGINEER [facility] Final Result [facility] [address] [place] [address], [place] [phone] * (ABNORMAL) CBC W/DIFF AUTOMATED (10/07/2024 2:04 AM CONDUCTOR AND ENGINEER) WBC 6.53 4.5 - 11.0 x10'3/uL 10/07/2024 2:19 AM [facility] RBC 4.62(L) 4.70 - 6.10 x10'6/uL 10/07/2024 2:19 AM [facility] HGB 13.0(L) 14.0 - 18.0 G/DL 10/07/2024 2:19 AM [facility] HCT 41.1(L) 43.0 - 54.0 % 10/07/2024 2:19 AM [facility] MCV 89.0 80.0 - 94.0 FL 10/07/2024 2:19 AM [facility] MCH 28.1 27.0 - 31.0 PG 10/07/2024 2:19 AM [facility] MCHC 31.6(L) 32.0 - 36.0 G/DL 10/07/2024 2:19 AM [facility] RDW 13.2 11.5 - 14.5 % 10/07/2024 2:19 AM [facility] PLT 298 130 - 400 x10'3/uL 10/07/2024 2:19 AM [facility] MPV 9.8 9.3 - 12.2 FL 10/07/2024 2:19 AM [facility] DIFFERENTIAL TYPE AUTOMATED DIFFERENTIAL 10/07/2024 2:19 AM [facility] NEUTROPHILS % 61.9 % 10/07/2024 2:19 AM [facility] LYMPHOCYTES % 24.0 % 10/07/2024 2:19 AM [facility] MONOCYTES % 11.2 % 10/07/2024 2:19 AM [facility] EOSINOPHILS 2.0 % 10/07/2024 2:19 AM [facility] BASOPHILS 0.6 % 10/07/2024 2:19 AM [facility] IMMATURE GRANS % 0.3 % 10/08/19 2:19 AM [facility] ABS. NEUTROPHILS 4.04 1.80 - 7.70 x10'3/uL 10/07/2024 2:19 AM [facility] ABS. LYMPHOCYTES 1.57 1.00 - 4.80 x10'3/uL 10/07/2024 2:19 AM [facility] ABS. MONOCYTES 0.73 0.30 - 0.82 x10'3/uL 10/07/2024 2:19 AM CONDUCTOR AND ENGINEER [facility] ABS. EOSINOPHILS 0.13 0.04 - 0.54 x10'3/uL 10/07/2024 2:19 AM CONDUCTOR AND ENGINEER [facility] ABS. BASOPHILS 0.04 0.01 - 0.08 x10'3/uL 10/07/2024 2:19 AM CONDUCTOR AND ENGINEER [facility] ABS. IMMATURE GRANULOCYTES 0.02 0.00 - 0.49 x10'3/uL 10/07/2024 2:19 AM CONDUCTOR AND ENGINEER [facility] 10/07/2024 2:04 AM CONDUCTOR AND ENGINEER [facility] Final Result [facility] [address] [place] [address], [place] [phone] * LIPASE (10/07/2024 2:04 AM CONDUCTOR AND ENGINEER) LIPASE 32 13 - 75 UNITS/L 10/07/2024 2:54 AM CONDUCTOR AND ENGINEER [facility] 10/07/2024 2:04 AM CONDUCTOR AND ENGINEER [facility] Final Result [facility] [address] [place] [address], [place] [phone] from Last 3 Months Insurance [employer] Advance Directives * Full Code (Latest Code Status on File) Date Activated Date Inactivated Comments 06/16/2023 10:32 PM 06/18/2023 1:59 PM Care Teams Operations Support Professionals Relationship Specialty Start Date End Date None, Provider, MD PCP - General UNKNOWN PHYSICIAN SPECIALTY 06/16/23
--- OUTSIDE RECORDS SUMMARY | 2024-12-18 21:59 | XMS_ITS | Clinical Summary ---
Author Organization [facility] Address [address] [place] [address] Phone Care Team Providers Care Chemical Preparer Name Role Phone Unavailable Primary Care Provider Unavailabl e Allergies No known active allergies Encounters Date Type Department Care Team Description 11/05/2024 Lab Requisition [facility] [address] [place] [phone] Ventura Brian MD from Last 3 Months Social History Tobacco Use Types Packs/Day Years Used Date Smoking Tobacco: Never Assessed Sex and Gender Information Value Date Recorded Sex Assigned at Not on file Legal Sex Male 8:18 AM TRAIN CONDUCTOR Gender Identity Not on file Sexual Orientation Not on file Last Filed Vital Signs Vital Sign Reading Time Taken Comments Blood Pressure 136/87 06/14/2021 8:27 AM TRAIN CONDUCTOR Pulse - - Temperature 36.9 C (98.4 F) 06/14/2021 8:27 AM TRAIN CONDUCTOR Respiratory Rate 18 06/14/2021 8:27 AM TRAIN CONDUCTOR Oxygen Saturation 98% 06/14/2021 8:27 AM TRAIN CONDUCTOR Inhaled Oxygen Concentration - - Weight 69.9 kg (154 lb) 06/14/2021 8:27 AM TRAIN CONDUCTOR Height 15.2 cm (6 ) 06/14/2021 8:27 AM TRAIN CONDUCTOR Body Mass Index 3007.61 06/14/2021 8:27 AM TRAIN CONDUCTOR Plan of Treatment Health Maintenance Due Date [...] LIPID PANEL Routine 11/05/2024 6:48 AM CDT from Last 3 Months Results * HEMOGLOBIN A1C (11/05/2024 6:48 AM CDT) HEMOGLOBIN A1C 5.5 <=5.6 % 11/05/2024 9:48 AM CDT [facility] EST. AVG GLUCOSE, A1C 111 mg/dL 11/05/2024 9:48 AM CDT [facility] Blood 11/05/2024 6:48 AM CDT 11/05/2024 8:45 AM CDT Narrative [facility] - 11/05/2024 9:48 AM CDT HGB A1C INTERPRETATION NORMAL: <5.7% PRE-DIABETES: 5.7 - 6.4% DIABETES: 6.5% OR GREATER Ventura Brian MD CHEMISTRY ORDERABLES Final Res ult Performing Organization Address [facility]/ZIP Co de Phone Number [facility] [id number] [address] [place] [phone] * GLUCOSE LEVEL (11/05/2024 6:48 AM CDT) GLUCOSE 91 70 - 115 mg/dL 11/05/2024 9:58 AM CDT [facility] Blood Collection / Unknown 11/05/2024 6:48 AM CDT 11/05/2024 8:45 AM CDT Ventura Brian MD CHEMISTRY ORDERABLES Final Res ult [facility] [id number] [address] [place], [place] [address] [phone] * LIPID PANEL (11/05/2024 6:48 AM CDT) [facility] Signature CHOLESTEROL 136 <200 mg/dL 11/05/2024 9:58 AM CDT [facility] TRIGLYCERIDE 69 <150 mg/dL 11/05/2024 9:58 AM CDT [facility] HDL 50 40 - 59 mg/dL 11/05/2024 9:58 AM T [facility] LDL CALCULATED 72 <100 mg/dL 11/05/2024 9:58 AM T [facility] NON-HDL CHOLESTEROL 86 <130 mg/dL 11/05/2024 9:58 AM [facility] Blood Collection / Unknown 11/05/2024 6:48 AM CDT 11/05/2024 8:45 AM CDT [facility] LABORATORY [facility] - 11/05/2024 9:58 AM CDT TOTAL [...] Brian MD CHEMISTRY ORDERABLES Final Res ult [facility] [id number] [address] [place] [phone] from Last [address] [place] [address] MEDICAID
[2024-12-18 22:21] LABS: Basophils Percent Auto 0.3 % (0.2-1.2); Eosinophils Absolute Auto 0.2 K/mm3 (0-0.3); Eosinophils Percent Auto 2.5 % (0-4.4); Hematocrit 44.6 % (42.0-52.0); Hemoglobin 13.9 g/dL (14.0-18.0); Immature Granulocyte Absolute 0.02 K/mm3 (0.00-0.031); Immature Granulocyte Percent A 0.3 % (0-0.5); Lymphocytes Absolute Auto 1.51 K/mm3 (0.9-3.2); Lymphocytes Percent Auto 25.4 % (18.3-44.2); Mean Corpuscular HGB Conc 31.2 g/dl (32-36); Mean Corpuscular Hemoglobin 27.9 pg (26-34); Mean Corpuscular Volume 89.6 fl (80-100); Mean Platelet Volume 9.8 fl (7.4-10.4); Monocytes Absolute Auto 0.5 K/mm3 (0.1-0.6); Monocytes Percent Auto 8.6 % (2.6-8.5); Neutrophils Absolute Auto 3.7 K/mm3 (1.3-6.7); Neutrophils Percent Auto 62.9 % (45.5-73.1); Platelet Count Result 230 k/mm3 (150-375); Red Blood Count 4.98 M/mm3 (4.6-6.20); Red Cell Distribution Width 13.5 % (11.5-14.5); White Blood Count 5.9 K/mm3 (4.5-10.0)
[2024-12-18 22:28] LABS: Alanine Aminotransferase 30 U/L (6-50); Albumin Level 4.6 g/dL (3.5-5.1); Alkaline Phosphatase 64 U/L (38-126); Anion Gap 9 mmol/L (4-12); Aspartate Amino Transferase 33 U/L (17-59); Bilirubin,Total 0.2 mg/dL (0.2-1.3); Blood Urea Nitrogen 15 mg/dL (9-20); Carbon Dioxide 27 mmol/L (22-30); Chloride 106 mmol/L (98-107); Estimated CRCL calculation 74 ml/min; Estimated Glomerular Filt Rate 60; Glucose 104 mg/dL (65-110); Lipase 100 U/L (23-300); Potassium 4.2 mmol/L (3.4-5.0); Sodium 142 mmol/L (137-145)
[2024-12-18] MEDS: ASPIRIN 81 MG CHEWABLE TABLET 324 MG PO (22:28)
[2024-12-18 22:41] LABS: Prothrombin Time 13.4 Seconds (11.1-14.7)
[2024-12-18 22:42] LABS: Partial Thromboplastin Time 27.3 Seconds (22.3-36.8); Troponin I < 0.012 ng/mL (0.000-0.034)
--- OUTSIDE RECORDS SUMMARY | 2024-12-18 23:06 | XMS_ITS | Clinical Summary ---
Author Organization [facility] Address [address] [place] [address] Phone Care Team Providers Care Programs Assistant Name Role Phone Provider, None Primary Care [...] Comments Blood Pressure 134/78 09/19/2023 6:07 PM PING PONG TABLE ASSEMBLER Pulse 70 09/19/2023 9:14 PM PING PONG TABLE ASSEMBLER Temperature 36.6 C (97.8 F) 09/19/2023 6:07 PM PING PONG TABLE ASSEMBLER Respiratory Rate 17 09/19/2023 6:07 PM PING PONG TABLE ASSEMBLER Oxygen Saturation 94% 09/19/2023 9:14 PM PING PONG TABLE ASSEMBLER Inhaled Oxygen Concentration - - Weight 79.4 kg (175 lb) 09/19/2023 6:07 PM PING PONG TABLE ASSEMBLER Height 185.4 cm (6' 1 ) 09/19/2023 6:07 PM PING PONG TABLE ASSEMBLER Body Mass Index 23.09 09/19/2023 6:07 PM PING PONG TABLE ASSEMBLER Plan of Treatment Health Maintenance Due Date [...] age to complete this topic Insurance MEDICAID [place] Care Teams Programs Assistant Relationship Specialty Start Date End Date Provider, None [place] PCP - General 08/19/23
--- OUTSIDE RECORDS SUMMARY | 2024-12-18 23:06 | XMS_ITS | Encounter Summary ---
Author Organization [facility] Address [address] [place] [address] Care Team Providers Care Computer Equipment Repairer Name Role Phone Unavailable Primary Care Provider Unavailabl e Encounter Details Date Type Department Care Team (Late st Contact Info) Description 11/05/2024 Lab Requisition [facility] [address] [phone] Ventura Brian MD [address] [place] [phone] Social History Tobacco Use Types Packs/Day Years Used Date Smoking Tobacco: Never Assessed Sex and Gender Information Value Date Recorded Sex Assigned at Not on file Legal Sex Male 8:18 AM REFUGE MANAGER Gender Identity Not on file Sexual [...] 5.5 <=5.6 % 11/05/2024 9:48 AM CDT [facility] EST. AVG GLUCOSE, A1C 111 mg/dL 11/05/2024 9:48 AM CDT [facility] Blood 11/05/2024 6:48 AM CDT 11/05/2024 8:45 AM CDT Narrative [facility] - 11/05/2024 9:48 AM CDT HGB A1C INTERPRETATION NORMAL: <5.7% PRE-DIABETES: 5.7 - 6.4% DIABETES: 6.5% OR GREATER Ventura Brian MD CHEMISTRY ORDERABLES Final Res ult Performing Organization Address City/[facility]/ZIP Co de Phone Number [facility] [id number] [address] [place] [phone] * GLUCOSE LEVEL (11/05/2024 6:48 AM CDT) GLUCOSE 91 70 - 115 mg/dL 11/05/2024 9:58 AM CDT [facility] Blood Collection / Unknown 11/05/2024 6:48 AM CDT 11/05/2024 8:45 AM CDT Ventura Brian MD CHEMISTRY ORDERABLES Final Res ult Performing Organization Address City/[facility]/ZIP Co de Phone Number [facility] [id number] [address] [place] [phone] * LIPID PANEL (11/05/2024 6:48 AM CDT) CHOLESTEROL 136 <200 mg/dL 11/05/2024 9:58 AM CDT [facility] TRIGLYCERIDE 69 <150 mg/dL 11/05/2024 9:58 AM CDT [facility] HDL 50 40 - 59 mg/dL 11/05/2024 9:58 AM CDT [facility] LDL CALCULATED 72 <100 mg/dL 11/05/2024 9:58 AM CDT [facility] NON-HDL CHOLESTEROL 86 <130 mg/dL 11/05/2024 9:58 AM CDT [facility] Blood Collection / Unknown 11/05/2024 6:48 AM CDT 11/05/2024 8:45 AM CDT Narrative [facility] - 11/05/2024 9:58 AM CDT TOTAL CHOLESTEROL [...] ORDERABLES Final Res ult [facility] [id number] [address] [place] [phone] documented in this encounter Visit Diagnoses Not on filedocumented in this encounter
--- OUTSIDE RECORDS SUMMARY | 2024-12-18 23:06 | XMS_ITS | CONTINUITY OF CARE DOCUMENT ---
Author Name ed ward Address Unknown Organization [facility] Address [address] [place] [address] Phone [phone] Care Team Providers Care Sleeve Tailor Name Role Phone Cat Choudhary MD Unavailable [phone] Cat Choudhary MD Unavailable PROBLEMS Condition Status Date Provider Notes Acute idiopathic pericarditis active Haritha MTZ Specialist Cardiology examination active Garfield Lucas MD Marijuana use active Garfield Lucas MD ENCOUNTERS Date Type Provider Location Encounter Diag nosis - In-person encounter Office Visit Garfield Lucas MD [facility] Cardiology examinationMarijuana use VITAL SIGNS Date [...] history of marijuana use yes Mckennakaren Zhangmiglia PRECAST WORKER drug use no Mckenna Ventimig maureen PRECAST WORKER alcohol use no Mckenna Ventimig maureen PRECAST WORKER cigarette use yes Stephan Velasco ay smoking status Former smoker Stephan Whitt rday INSURANCE PROVIDERS Payer name Policy type / Coverage type [place] red constitution party ID [employer] MEDICA[employer] Medicaid [id number] ADVANCE DIRECTIVES Name Date DISCUSSED - NO DECISION MADE TREATMENT PLAN Date Name Performer Cardiology:cessation encouraged Mckenna Zhangmiglia [facility] Cardiology:patient h as had recurrent ER visits for chest pain suggestive of pericarditis as worse with leaning forward and deep inspiration p ain has been refractory to NSAIDs and colchincine We will do echo to look for effusion w ill plan to send order for arcalyst p atient will return in 3 mos or sooner if needed. Mckenna Zhangmiglia [facility] Date Name Complete Echo HISTORY OF PROCEDURES Procedure Date Procedure Name Provider Procedure Notes S tatus EKG Garfield Lucas MD complete d
--- OUTSIDE RECORDS SUMMARY | 2024-12-18 23:06 | XMS_ITS | Clinical Summary ---
Author Organization [facility] [employer] Address [address] [place] [address] [place] [address] Care Team Providers Care Transfer Table Operator Name Role Phone None, Physician Primary Care Provider Unavailabl e Source Comments [facility] [employer],non-owned Affiliates and Associated Physician Practices is amultiple site organization consisting of ambulatory clinics and hospital sitesin [place], [place], [place] and [place]. This disclosure is being madepursuant to the Care Everywhere program and may not contain all information available regarding this patient. Last updated 18.[employer] Allergies No known active allergies Medications * [...] (06/02/2022): Added automatically from request for surgery [id number] ST elevation myocardial infa rction (STEMI), unspecified [...] housing, medical care, and heating? Hard 08/07/2023 [facility] [place] - Occupational Stress [...] or slept in a residential (including now)? No 08/07/2023 Housing Stability Vital [...] on file Legal Sex Male 8:25 PM JUNIOR [employer]IGH [employer] PRINCIPAL Gender Identity Not on file Sexual Orientation Not on file Last Filed Vital Signs Vital Sign Reading Time Taken Comments Blood Pressure 141/85 09/17/2024 4:00 AM JUNIOR HIGH SCHO[employer] PRINCIPAL Pulse 87 09/17/2024 4:00 AM JUNIOR HIGH [employer] PRINCIPAL Temperature 36.9 C (98.5 F) 09/17/2024 1:48 AM JUNIOR HIGH SCHO[employer] PRINCIPAL Respiratory Rate 13 09/17/2024 4:02 AM J[employer]IOR [employer]IGH [employer] PRINCIPAL Oxygen Saturation 96% 09/17/2024 4:00 AM JUNIOR HIGH SCHO[employer] PRINCIPAL Inhaled Oxygen Concentration - - Weight 72.6 kg (160 lb) 09/17/2024 1:45 AM JUNIOR HIGH SCHO[employer] PRINCIPAL Height 180.3 cm (5' 11 ) 09/17/2024 1:45 AM JUNIOR HIGH SCHOOL PRINCIPAL Body Mass Index 22.32 09/17/2024 1:45 AM JUNIOR HIGH SCHOOL PRINCIPAL Plan of Treatment Health Maintenance Due Date [...] 4:30 AM 06/03/2022 4:00 PM Care Teams Transfer Table Operator Relationship Specialty Start Date End Date None, Physician PCP - General 09/17/24
--- OUTSIDE RECORDS SUMMARY | 2024-12-18 23:06 | XMS_ITS | Clinical Summary ---
Author Organization [facility] Address [address] [place] [address] Care Team Providers Care Pier Hand Name Role Phone No, Physician Primary Care Provider [phone] Allergies No known active allergies Medications colchicine (COLCRYS) 0.6 mg capsuleIndicati ons:pericarditi s Take 1 capsule (0.6 mg total) by mouth 2 (two) times a day 60 capsule 09/19/2024 Active Active Problems Problem Noted Date Diagnosed Date History of iron deficiency 09/30/2024 Assessment & Plan (09/30/2024 9:09 AM FLOOR PRESS OPERATOR): Will try to obtain iron studies I asked SW to help w/ PCP followup Epigastric pain 09/30/2024 Assessment & Plan (09/30/2024 9:17 AM FLOOR PRESS OPERATOR): When asked where his pericarditis pain is, he points to the epigastrium. When I saw him in 11/2023, I had requested an H pylori stool antigen, which we were not able to obtain. -Try again to obtain H pylori antigen (especially w/ history of anemia) Depression 09/29/2024 Assessment & Plan (09/29/2024 1:17 PM FLOOR PRESS OPERATOR): As per psychiatry Will addon a TSH Pericarditis 09/29/2024 Assessment & Plan (09/30/2024 9:10 AM FLOOR PRESS OPERATOR): Currently asymptomatic. Will obtain EKG. Will restart colchicine if symptoms recurs EKG w/ diffuse ST elevation in II, III, aVF, and V1-6, with no CT depression This might also be early repolarization See my notes from 11/16/23 and 11/17/23 for my thought process then He has a ticketing agent (Dr Rivera, in [place]) with whom he can follow up Routine general medical exam ination at a health care facility 09/29/2024 Assessment & Plan (09/29/2024 1:17 PM FLOOR PRESS OPERATOR): HIV, RPR negative Will recheck here Addon B12, TSH GERD (gastroesophageal reflux disease) Assessment & Plan (09/29/2024 1:18 PM FLOOR PRESS OPERATOR): Hold off PPI for now as he notes no symptoms of acid reflux. Low threshold to restart. The chest pain (when present) he notes is epigastric so that may be a component of GERD Renal lesion 09/29/2024 Assessment & Plan (09/30/2024 9:09 AM FLOOR PRESS OPERATOR): 11/02/23 CT: There are 3 low-attenuation lesions [...] 08/14/23, 11/02/23 w/ diffuse ST elevation, w/ CT depression) and a negative ischemic workup (including [...] follows w/ Dr Cat Choudhary (cardiology w/ [facility]), which he will follow up with [...] 11/16/2023 Assessment & Plan (09/30/2024 9:11 AM FLOOR PRESS OPERATOR): B12 300, same as 11/2023. Will replete [...] 11/16/2023 Assessment & Plan (09/30/2024 9:11 AM FLOOR PRESS OPERATOR): Late latent, appropriately treated. See my 11/15/24 note Assessment & Plan (11/16/2023 1:25 PM CDT): As per my colleague Dr Bynum (see 09/07/23 medicine c/s note): - Has history of Syphilis, treated in 2013 , -Treponema ab + and RPR 1:4 on 08/29/23 [facility] Contacted [facility] ( [place] ) for info To see if titers are coming down , left message with Nurse ( [phone]): Called back received, Patient diagnosed with late latent syphilis at [facility] on 10-11 : +RPR titer 1 :256, treponema -EIA positive Completed treatment with benzathine penicillin G x 3 doses given on November 21 2013, November 28 2013 and December 052013 So appropriately treated Lumbar strain, initial encounter 09/16/2023 Anemia 09/08/2023 Assessment & Plan (09/08/2023 8:05 PM FLOOR PRESS OPERATOR): -possible hx of GI bleed in June, [...] disease) Assessment & Plan (09/08/2023 5:10 AM FLOOR PRESS OPERATOR): -continue pepcid Adjustment disorders, with mixed anxiety and dep ressed mood 09/07/2023 Assessment & Plan (09/08/2023 4:53 AM FLOOR PRESS OPERATOR): Per Psychiatry Cannabis use disorder, moderate, dependence 01/2024 Assessment & Plan (09/08/2023 4:53 AM FLOOR PRESS OPERATOR): Per Psychiatry History of syphilis 09/07/2023 Assessment & Plan (09/08/2023 12:28 PM FLOOR PRESS OPERATOR): - Has history of Syphilis, treated in 2013 , -Treponema ab + and RPR 1:4 on 08/29/23 [facility] Contacted [facility] ( [place] ) for info To see if titers are coming down , left message with Nurse ( [phone]): Called back received, Patient diagnosed with late latent syphilis at [facility] in [place] on 10-11 : +RPR titer 1 :256, [...] recs Assessment & Plan (07/27/2023 10:01 AM FLOOR PRESS OPERATOR): Wes has been struggling for the last [...] Med recs apprec; h/o pericarditis Swer to [facility] with follow-up and dispo Assessment & Plan (07/26/2023 9:44 AM FLOOR PRESS OPERATOR): Wes has been struggling for the last [...] Med recs apprec; h/o pericarditis Swer to [facility] with follow-up and dispo Assessment & Plan (07/25/2023 12:24 PM FLOOR PRESS OPERATOR): Wes has been struggling for the last [...] Med recs apprec; h/o pericarditis Swer to [facility] with follow-up and dispo Assessment & Plan [...] was started on Abilify and Depakote in [place], and reports that his visual and auditory hallucinations have resolved. - Start Sertraline 50mg, consider titrating - Obtain further information about the hallucinations - Haldol 5 p.o. or Haldol 5/Ativan 2 IM PRN for agitation - Suicide/elopement/safety precautions - Therapeutic milieu - q15 min safety checks Asthma 05/22/2023 Assessment & Plan (09/29/2024 1:14 PM FLOOR PRESS OPERATOR): Mild. Prn albuterol Assessment & Plan (09/08/2023 5:12 AM FLOOR PRESS OPERATOR): - no PFTs available , currently not in exacerbation, - PRN albuteral Assessment & Plan (07/25/2023 10:37 AM FLOOR PRESS OPERATOR): Intermittent. No symptoms. Uses albuterol prn at [...] (11/04/2024): Added automatically from request for surgery [id number] Resolved Problems Problem Noted Date Diagnosed Date Resolved Date history of Pericarditis 09/07/202310/31 Assessment & Plan (09/08/2023 8:04 PM FLOOR PRESS OPERATOR): - patient has not been able to afford colchicine and reports benefit when getting doses in ED visits - continue colchicine 0.6 mg po BID and monitor for side effects, it should be held if nausea, vomiting, diarrhea -Hold NSAIDS as -he as not tolerated with significant Gi side effects -Patient was seen by Cardiology as outpatient on 09/02/[address] [facility] ([facility]) and has [...] psychiatry Assessment & Plan (07/25/2023 10:36 AM FLOOR PRESS OPERATOR): Pt w/ hx of depression and anxiety presents w/ SI after grandmother passing. Didn't have intent or plan. Denies SI now -mgt per primary Encounters Date Type Department Care Team Description 11/04/2024 12:54 AM CDT - 11/04/2024 12:05 PM CDT Emergency [address] [address] Neel So MD Depression with suicidal ideation (Primary Dx); Abdominal pain; Amphetamine abuse (HCC); Sinus bradycardia Discharge Disposition: Discharge to psych hospital or psych unit 09/28/2024 2:49 AM FLOOR PRESS OPERATOR - 10/01/2024 11:55 AM FLOOR PRESS OPERATOR Hospital Encounter [facility] [address] [place] [id number] Torres Armenta MD L'Ecuyer, Suzanne, MD Svancarek, [...] drink = 0.6 oz pur e alcohol) [facility] Utilities Answer Date Recorded In the past [...] How often do you attend chur or pentecostalism services? Never 09/29/2024 Do you [...] administer the PHQ-9) 2 09/07/2023 [facility] - Occupational Stress Questionnaire Answer Date [...] At any time in the past 12 [facility], were you homeless or living in [...] on file Legal Sex Male 5:49 PM FLOOR PRESS OPERATOR Gender Identity Not on file Sexual [...] GONORRHOEAE/C. TRACHOMATIS AMPLIFICATION Routine 09/30/2024 11:18 AM FLOOR PRESS OPERATOR URINALYSIS, MICROSCOPIC ONLY STAT 09/28/2024 3:44 AM FLOOR PRESS OPERATOR DRUGS OF ABUSE SCREEN, URINE WITHOUT CONFIRMATION STAT 09/28/2024 3:44 AM FLOOR PRESS OPERATOR URINALYSIS AND REFLEX TO MICROSCOPIC STAT 09/28/2024 3:44 AM FLOOR PRESS OPERATOR IRON PROFILE W/ IBC STAT 09/28/2024 3 :15 AM FLOOR PRESS OPERATOR FERRITIN STAT 09/28/2024 3:15 AM FLOOR PRESS OPERATOR TSH STAT 09/28/2024 3:15 AM FLOOR PRESS OPERATOR VITAMIN B12 STAT 09/28/2024 3:15 AM FLOOR PRESS OPERATOR ETHANOL STAT 09/28/2024 3:15 AM FLOOR PRESS OPERATOR LIPID PANEL STAT 09/28/2024 1:27 AM FLOOR PRESS OPERATOR EGFR STAT 09/28/2024 1:27 AM FLOOR PRESS OPERATOR DIFFERENTIAL AUTO STAT 09/28/2024 1:2 7 AM FLOOR PRESS OPERATOR LIPASE STAT 09/28/2024 1:27 AM FLOOR PRESS OPERATOR COMPREHENSIVE METABOLIC PANEL STAT 09/28/2024 1:27 AM FLOOR PRESS OPERATOR CBC WITH AUTO DIFFERENTIAL STAT 09/28/2024 1:27 AM FLOOR PRESS OPERATOR RPR STAT 09/28/2024 1:27 AM FLOOR PRESS OPERATOR HIV 1/2 ANTIBODY PLUS P24 ANTIGEN STAT 09/28/2024 1:27 AM FLOOR PRESS OPERATOR RESPIRATORY PATHOGEN PANEL STAT 09/27/2024 10:38 PM FLOOR PRESS OPERATOR from Last 3 Months Results * [...] Farida Mahmood M.D. SN T: Report ID: [id number] Reading Location: [id number] Procedure Note Farida Mahmood MD - 11/04/2024 [...] Farida Mahmood M.D. SN T: Report ID: [id number] Reading Location: [place] [address] Neel So MD IM CT PROCEDURES Final [...] tendency for uric acid stone formation. Source: [place] Cardiac Dimensions Current Interpretive Data was last revised on 2017 Protein, ur ql Negative Negative [facility] Glucose, ur ql Negative Negative [facility] Ketones, ur Negative Negative [facility] Bilirubin, ur Negative Negative [facility] Blood, ur Negative Negative [facility] Urobilinogen, ur <2.0 <2.0 mg/dL [facility] Nitrite, ur Negative Negative [facility] Leukocyte esterase, ur Negative Negative [facility] UA reflex comment Reflex conditions for microscopic UA and culture not met. [facility] Urine 11/04/2024 5:27 AM CDT 11/04/2024 5:30 AM CDT Neel So MD LAB MICROBIOLOGY - GENERAL ORDERABLES Final Result [facility] [address] [facility] Department [place] [address] * (ABNORMAL) Drugs of Abuse Screen, Urine without Confirmation (11/04/2024 5:27 AM CDT) Pathologist [facility] Amphetamine, ur [...] 2023. Barbiturates, ur Not Detected CutOff 200ng/mL [facility] Comment: Interpretive Data - Barbiturates: Samples containing greater than 200 ng/mL secobarbital or other cross-reacting barbiturate compounds are reported as positive. False positive and false negative results are possible. Confirmatory testing required for definitive results. Current Interpretive Data was last reviewed 2023. Benzodiazepines, ur Not Detected CutOff 100ng/mL [facility] Comment: Interpretive Data - Benzodiazepines: Samples containing greater than 100 ng/mL nordiazepam or other cross-reacting compounds are reported as positive. False positive and false negative results are possible. Confirmatory testing required for definitive results. Current Interpretive Data was last reviewed 2023. Cannabinoids, ur Screen Positive, presumptive (A) CutOff 50 ng/mL [facility] Comment: Interpretive Data - Cannabinoids: [...] results. Current Interpretive Data was last reviewed [id number]|2024-12-18 23:06:00|2024-12-18 23:06:00|XMS_ITS|BKG DAEMON|External Medical Summaries|[id number]|" Referral Summary Created on: December 18, 2024 Flaco Best Jr. : 1990 Sex: Male Author Organization [facility] Address [address] [place] [address] Care Team Providers Care Pier Hand Name Role Phone No, Physician Primary Care Provider [phone] Encounters Date Type Department Care Team Description 11/04/2024 12:54 AM CDT - 11/04/2024 12:05 PM CDT Emergency [facility] [address] [place] [address] Neel So MD Depression with suicidal ideation (Primary Dx); Abdominal pain; Amphetamine abuse (HCC); Sinus bradycardia Discharge Disposition: Discharge to psych hospital or psych unit 09/28/2024 2:49 AM FLOOR PRESS OPERATOR - 10/01/2024 11:55 AM FLOOR PRESS OPERATOR Hospital Encounter [facility] [address] [place] [address] Torres Armenta MD L'Ecuyer, MD Ivy Dixon, [...] 09/30/2024 Assessment & Plan (09/30/2024 9:09 AM FLOOR PRESS OPERATOR): Will try to obtain iron studies I asked SW to help w/ PCP followup Epigastric pain 09/30/2024 Assessment & Plan (09/30/2024 9:17 AM FLOOR PRESS OPERATOR): When asked where his pericarditis pain is, he points to the epigastrium. When I saw him in 11/2023, I had requested an H pylori stool antigen, which we were not able to obtain. -Try again to obtain H pylori antigen (especially w/ history of anemia) Depression 09/29/2024 Assessment & Plan (09/29/2024 1:17 PM FLOOR PRESS OPERATOR): As per psychiatry Will addon a TSH Pericarditis 09/29/2024 Assessment & Plan (09/30/2024 9:10 AM FLOOR PRESS OPERATOR): Currently asymptomatic. Will obtain EKG. Will restart colchicine if symptoms recurs EKG w/ diffuse ST elevation in II, III, aVF, and V1-6, with no CT depression This might also be early repolarization See my notes from 11/16/23 and 11/17/23 for my thought process then He has a ticketing agent (Dr Rivera, in [place]) with whom he can follow up Routine general medical exam ination at a health care facility 09/29/2024 Assessment & Plan (09/29/2024 1:17 PM FLOOR PRESS OPERATOR): HIV, RPR negative Will recheck here Addon B12, TSH GERD (gastroesophageal reflux disease) Assessment & Plan (09/29/2024 1:18 PM FLOOR PRESS OPERATOR): Hold off PPI for now as he notes no symptoms of acid reflux. Low threshold to restart. The chest pain (when present) he notes is epigastric so that may be a component of GERD Renal lesion 09/29/2024 Assessment & Plan (09/30/2024 9:09 AM FLOOR PRESS OPERATOR): 11/02/23 CT: There are 3 low-attenuation lesions [...] 08/14/23, 11/02/23 w/ diffuse ST elevation, w/ CT depression) and a negative ischemic workup (including [...] follows w/ Dr Cat Choudhary (cardiology w/ [facility]), which he will follow up with [...] 11/16/2023 Assessment & Plan (09/30/2024 9:11 AM FLOOR PRESS OPERATOR): B12 300, same as 11/2023. Will replete [...] 11/16/2023 Assessment & Plan (09/30/2024 9:11 AM FLOOR PRESS OPERATOR): Late latent, appropriately treated. See my 11/15/24 note Assessment & Plan (11/16/2023 1:25 PM CDT): As per my colleague Dr Bynum (see 09/07/23 medicine c/s note): - Has history of Syphilis, treated in 2013 , -Treponema ab + and RPR 1:4 on 08/29/23 when tested at [facility] Contacted [facility] ( [place] ) for info To see if titers are coming down , left message with Nurse ( [phone]): Called back received, Patient diagnosed with late latent syphilis at [facility] in [place] on 10-11 : +RPR titer 1 :256, treponema -EIA positive Completed treatment with benzathine penicillin G x 3 doses given on November 21 2013, November 28 2013 and December 052013 So appropriately treated Lumbar strain, initial encounter 09/16/2023 Anemia 09/08/2023 Assessment & Plan (09/08/2023 8:05 PM FLOOR PRESS OPERATOR): -possible hx of GI bleed in June, [...] disease) Assessment & Plan (09/08/2023 5:10 AM FLOOR PRESS OPERATOR): -continue pepcid Adjustment disorders, with mixed anxiety and dep ressed mood 09/07/2023 Assessment & Plan (09/08/2023 4:53 AM FLOOR PRESS OPERATOR): Per Psychiatry Cannabis use disorder, moderate, dependence 01/2024 Assessment & Plan (09/08/2023 4:53 AM FLOOR PRESS OPERATOR): Per Psychiatry History of syphilis 09/07/2023 Assessment & Plan (09/08/2023 12:28 PM FLOOR PRESS OPERATOR): - Has history of Syphilis, treated in 2013 , -Treponema ab + and RPR 1:4 on 08/29/23 when tested at [facility] Contacted [facility] ( [place] ) for info To see if titers are coming down , left message with Nurse ( [phone]): Called back received, Patient diagnosed with late latent syphilis at [facility] in [place] on 10-11 : +RPR titer 1 :256, [...] recs Assessment & Plan (07/27/2023 10:01 AM FLOOR PRESS OPERATOR): Wes has been struggling for the last [...] Med recs apprec; h/o pericarditis Swer to [facility] with follow-up and dispo Assessment & Plan (07/26/2023 9:44 AM FLOOR PRESS OPERATOR): Wes has been struggling for the last [...] Med recs apprec; h/o pericarditis Swer to [facility] with follow-up and dispo Assessment & Plan (07/25/2023 12:24 PM FLOOR PRESS OPERATOR): Wes has been struggling for the last [...] Med recs apprec; h/o pericarditis Swer to [facility] with follow-up and dispo Assessment & Plan [...] was started on Abilify and Depakote in [place], and reports that his visual and auditory hallucinations have resolved. - Start Sertraline 50mg, consider titrating - Obtain further information about the hallucinations - Haldol 5 p.o. or Haldol 5/Ativan 2 IM PRN for agitation - Suicide/elopement/safety precautions - Therapeutic milieu - q15 min safety checks Asthma 05/22/2023 Assessment & Plan (09/29/2024 1:14 PM FLOOR PRESS OPERATOR): Mild. Prn albuterol Assessment & Plan (09/08/2023 5:12 AM FLOOR PRESS OPERATOR): - no PFTs available , currently not in exacerbation, - PRN albuteral Assessment & Plan (07/25/2023 10:37 AM FLOOR PRESS OPERATOR): Intermittent. No symptoms. Uses albuterol prn at [...] (11/04/2024): Added automatically from request for surgery [id number] Resolved Problems Problem Noted Date Diagnosed Date Resolved Date history of Pericarditis 09/07/202310/31 Assessment & Plan (09/08/2023 8:04 PM FLOOR PRESS OPERATOR): - patient has not been able to afford colchicine and reports benefit when getting doses in ED visits - continue colchicine 0.6 mg po BID and monitor for side effects, it should be held if nausea, vomiting, diarrhea -Hold NSAIDS as -he as not tolerated with significant Gi side effects -Patient was seen by Cardiology as outpatient on 09/02/[address] [facility] ([facility]) and has [...] psychiatry Assessment & Plan (07/25/2023 10:36 AM FLOOR PRESS OPERATOR): Pt w/ hx of depression and anxiety presents w/ SI after grandmother passing. Didn't have intent or plan. Denies SI now -mgt per primary Social History Tobacco Use Types Packs/Day Years Used Date Smoking Tobacco: Former Cigarettes Tobacco Cessation:Counseling Given: Not Answered Alcohol Use Standard Drinks/Week Comments Defer 0 (1 standard drink = 0.6 oz pur e alcohol) [facility] [employer] Answer Date Recorded In the past 12 months has e Bablic, gas, oil, or water Dovetail threatened to shut off services in your [...] administer the PHQ-9) 2 09/07/2023 [facility] - Occupational Stress Questionnaire Answer Date [...] any time in the past 12 [facility], were you homeless or living in [...] on file Legal Sex Male 5:49 PM FLOOR PRESS OPERATOR Gender Identity Not on file Sexual [...] GONORRHOEAE/C. TRACHOMATIS AMPLIFICATION Routine 09/30/2024 11:18 AM FLOOR PRESS OPERATOR URINALYSIS, MICROSCOPIC ONLY STAT 09/28/2024 3:44 AM FLOOR PRESS OPERATOR DRUGS OF ABUSE SCREEN, URINE WITHOUT CONFIRMATION STAT 09/28/2024 3:44 AM FLOOR PRESS OPERATOR URINALYSIS AND REFLEX TO MICROSCOPIC STAT 09/28/2024 3:44 AM FLOOR PRESS OPERATOR IRON PROFILE W/ IBC STAT 09/28/2024 3 :15 AM FLOOR PRESS OPERATOR FERRITIN STAT 09/28/2024 3:15 AM FLOOR PRESS OPERATOR TSH STAT 09/28/2024 3:15 AM FLOOR PRESS OPERATOR VITAMIN B12 STAT 09/28/2024 3:15 AM FLOOR PRESS OPERATOR ETHANOL STAT 09/28/2024 3:15 AM FLOOR PRESS OPERATOR LIPID PANEL STAT 09/28/2024 1:27 AM FLOOR PRESS OPERATOR EGFR STAT 09/28/2024 1:27 AM FLOOR PRESS OPERATOR DIFFERENTIAL AUTO STAT 09/28/2024 1:2 7 AM FLOOR PRESS OPERATOR LIPASE STAT 09/28/2024 1:27 AM FLOOR PRESS OPERATOR COMPREHENSIVE METABOLIC PANEL STAT 09/28/2024 1:27 AM FLOOR PRESS OPERATOR CBC WITH AUTO DIFFERENTIAL STAT 09/28/2024 1:27 AM FLOOR PRESS OPERATOR RPR STAT 09/28/2024 1:27 AM FLOOR PRESS OPERATOR HIV 1/2 ANTIBODY PLUS P24 ANTIGEN STAT 09/28/2024 1:27 AM FLOOR PRESS OPERATOR RESPIRATORY PATHOGEN PANEL STAT 09/27/2024 10:38 PM FLOOR PRESS OPERATOR from Last 3 Months Results * [...] Farida Mahmood M.D. SN T: Report ID: [id number] Reading Location: [id number] Procedure Note Farida Mahmood MD - 11/04/2024 [...] Farida Mahmood M.D. SN T: Report ID: [id number] Reading Location: [place] [address] [place] Neel So MD IMG CT PROCEDURES Final Re sult * Urinalysis reflex to microscopic and culture Urine (11/04/2024 5:27 AM CDT) Color, ur Yellow Yellow Clarity, ur Clear Clear [facility] Specific gravity, ur 1.021 1.003 - 1.030 [facility] pH, urine 6.5 [facility] Comment: Interpretive Data U rine pH is affected by diet, medications, systemic acid-base disturbances, and renal tubular function. pH may affect urinary stone formation. For example, urine pH below 6.0 may help reduce the tendency for calcium phosphate stones and pH greater than 6.0 may reduce the tendency for uric acid stone formation. Source: [facility]br[facility] Current Interpretive Data was last revised on 2017 Protein, ur ql Negative Negative [facility] Glucose, ur ql Negative Negative [facility] Ketones, ur Negative Negative [facility] Bilirubin, ur Negative Negative [facility] Blood, ur Negative Negative [facility] Urobilinogen, ur <2.0 <2.0 mg/dL [facility] Nitrite, ur Negative Negative [facility] Leukocyte esterase, ur Negative Negative [facility] UA reflex comment Reflex conditions for microscopic UA and culture not met. [facility] Urine 11/04/2024 5:27 AM CDT 11/04/2024 5:30 AM CDT Neel So MD LAB MICROBIOLOGY - GENERAL ORDERABLES Final Result [facility] [address] [facility] Department of Laboratories [place], [place] [id number] * (ABNORMAL) Drugs of Abuse Screen, Urine [...] 2023. Benzodiazepines, ur Not Detected CutOff 100ng/mL [facility] Comment: Interpretive Data - Benzodiazepines: Samples containing greater than 100 ng/mL nordiazepam or other cross-reacting compounds are reported as positive. False positive and false negative results are possible. Confirmatory testing required for definitive results. Current Interpretive Data was last reviewed 2023. Cannabinoids, ur Screen Positive, presumptive (A) CutOff 50 ng/mL [facility] Comment: Interpretive Data - Cannabinoids: Samples containing greater than 50 ng/mL delta-9 THC -COOH or other cross- reacting compounds are reported as positive. False positive and false negative results are possible. Confirmatory testing required for definitive results. Current Interpretive Data was last reviewed 2023. Cocaine, ur Not Detected CutOff 150ng/mL [facility] Comment: Interpretive Data - Cocaine: Samples containing greater than 150 ng/mL benzoylecgonine or other cross- reacting compounds are reported as positive. False positive and false negative results are possible. Confirmatory testing required for definitive results. Current Interpretive Data was last reviewed 2023. Fentanyl, Ur Not Detected CutOff 5 ng/mL [facility] Comment: Interpreti
--- OUTSIDE RECORDS SUMMARY | 2024-12-18 23:06 | XMS_ITS ---
Author Organization [facility] Address [address] [place] [address] Care Team Providers Care Harvest Worker Fruit Name Role Phone Rocío Castillo Primary Care Provider [phone] REASON FOR VISIT psych eval, fu from [facility] Social History Sex Assigned At : Social History Observation Description Sex Assigned At Male Encounters Encounter Location Date Provider Diagnosis [address] [place] [address] 10/16/2024 Rocío Castillo Plan Of Treatment No Information Progress Notes * Flaco BESTDOB:[birth year] (34 yo M)Acc No.[id number]:10/16/2024 UNLOCKED PROGRESS NOTE Patient: Flaco LYNN Provider: Lluvia Castillo MSN, ORNAMENTER HAND, BUYER BROKER-C :1990 A ge:34 Y S ex:Male Date:10/16/2024 Address:[address] [place] [address], [facility], [id number] Subjective: * Chief Complaints: * 1 . psych eval, fu from [facility]. * Medical History: Objective: * Vitals: Assessment: Plan: * Treatment: * * Electronic signature of Stacey Castillo , [id number] on 12/18/2024 at 11:05 PM CDT Sign off status: Pending * Provider: Lluvia Castillo MSN, ORNAMENTER HAND, BUYER BROKER-C Date: 0 10/16/2024 Generated for Roseann hernandez/Marcos/eTransmitting on: 12/18/2024 11:05 PM CDT
--- OUTSIDE RECORDS SUMMARY | 2024-12-18 23:06 | XMS_ITS | Patient Health Record ---
Author Organization [facility] Address [address] [place] [address] Care Team Providers Care Personnel Worker Name Role Phone Rocío Castillo Primary Care Provider [phone] Reason For Referral No Information Social History Sex Assigned At : Social History Observation Description Sex Assigned At Male Encounters Encounter Location Date Provider Diagnosis [address] [place] [address] 10/16/2024 Rocío Castillo Plan Of Treatment No Information Insurance Providers Payer Name Payer Address Payer Phone Subscriber Number Group Number Insured Name Patient Relationship to Insured Coverage Start Date Coverage End Date [address] [phone] [id number] Flaco Best Self - patient is the insured 4
--- OUTSIDE RECORDS SUMMARY | 2024-12-18 23:07 | XMS_ITS | Clinical Summary ---
Author Organization [facility] Address [address] [place] [address] Phone Care Team Providers Care Precision Machining Instructor Name Role Phone Unavailable Primary Care Provider Unavailabl e Allergies No known active allergies Encounters Date Type Department Care Team Description 11/05/2024 Lab Requisition [facility] [address] [place] [phone] Ventura Brian MD from Last 3 Months Social History Tobacco Use Types Packs/Day Years Used Date Smoking Tobacco: Never Assessed Sex and Gender Information Value Date Recorded Sex Assigned at Not on file Legal Sex Male 8:18 AM TOOL DESIGN CHECKER Gender Identity Not on file Sexual Orientation Not on file Last Filed Vital Signs Vital Sign Reading Time Taken Comments Blood Pressure 136/87 06/14/2021 8:27 AM TOOL DESIGN CHECKER Pulse - - Temperature 36.9 C (98.4 F) 06/14/2021 8:27 AM TOOL DESIGN CHECKER Respiratory Rate 18 06/14/2021 8:27 AM TOOL DESIGN CHECKER Oxygen Saturation 98% 06/14/2021 8:27 AM TOOL DESIGN CHECKER Inhaled Oxygen Concentration - - Weight 69.9 kg (154 lb) 06/14/2021 8:27 AM TOOL DESIGN CHECKER Height 15.2 cm (6 ) 06/14/2021 8:27 AM TOOL DESIGN CHECKER Body Mass Index 3007.61 06/14/2021 8:27 AM TOOL DESIGN CHECKER Plan of Treatment Health Maintenance Due Date [...] 5.5 <=5.6 % 11/05/2024 9:[address] [facility] EST. AVG GLUCOSE, A1C 111 mg/dL 11/05/2024 9:48 AM CDT [facility] [employer] [facility] Blood 11/05/2024 6:48 AM CDT 11/05/2024 8:45 AM CDT Narrative [facility] [employer] [facility] - 11/05/2024 9:48 AM CDT HGB A1C INTERPRETATION NORMAL: <5.7% PRE-DIABETES: 5.7 - 6.4% DIABETES: 6.5% OR GREATER Ventura Brian MD CHEMISTRY ORDERABLES Final Res ult Performing Organization Address [facility]/ZIP Co de Phone Number [facility] [id number] [address] [place] [phone] * GLUCOSE LEVEL (11/05/2024 6:48 AM CDT) GLUCOSE 91 70 - 115 mg/dL 11/05/2024 9:58 AM CDT [facility] [employer] [facility] Blood Collection / Unknown 11/05/2024 6:48 AM CDT 11/05/2024 8:45 AM CDT Ventura Brian MD CHEMISTRY ORDERABLES Final Res ult [facility] [id number] [address] [place], [place] [address] [phone] * LIPID PANEL (11/05/2024 6:48 AM CDT) [facility] Signature CHOLESTEROL 136 <200 mg/dL 11/05/2024 9:58 AM CDT [facility] [employer] [facility] TRIGLYCERIDE 69 <150 mg/dL 11/05/2024 9:58 AM CDT [facility] HDL 50 40 - 59 mg/dL 11/05/2024 9:58 AM T [facility] LDL CALCULATED 72 <100 mg/dL 11/05/2024 9:58 AM T [facility] NON-HDL CHOLESTEROL 86 <130 mg/dL 11/05/2024 9:58 AM [facility] Blood Collection / Unknown 11/05/2024 6:48 AM CDT 11/05/2024 8:45 AM CDT [facility]AT[facility] - 11/05/2024 9:58 AM CDT TOTAL [...] Brian MD CHEMISTRY ORDERABLES Final Res ult [facility] [id number] [address] [place] [phone] from Last [address] [place] [address] [place] [address] MEDICAID
--- OUTSIDE RECORDS SUMMARY | 2024-12-18 23:07 | XMS_ITS | Clinical Summary ---
Author Organization [facility] Address [address] [place] [address] Care Team Providers Care Drafter Cartographic Name Role Phone None, Provider MD Primary [...] CDT - 11/10/2024 1:39 AM CDT Emergency [facility] [place] [address] Samuel Siddiqi NP Hand Pain (Right hand) Discharge Disposition: Home or Self Care (Routine Discharge) 11/10/2024 Travel 10/07/2024 1:49 AM CENTRIFUGAL STATION OPERATOR - 10/07/2024 3:26 AM CENTRIFUGAL STATION OPERATOR Emergency [facility] [place] [address] Ian Persaud MD Abdominal Pain Discharge Disposition: Home or Self Care (Routine Discharge) 10/07/2024 Travel from Last 3 Months Social History Tobacco Use Types Packs/Day Years Used Date Smoking Tobacco: Former Cigarettes Cigars Smokeless Tobacco: Never Tobacco Cessation:Counseling Given: Not Answered Alcohol Use Standard Drinks/Week Comments Yes 0 (1 standard drink = 0.6 oz pur e alcohol) socially [facility] Utilities Answer Date Recorded In the past 12 months has e Juk[employer], gas, oil, or water [employer] threatened to shut off services in your [...] week 06/17/2023 How often do you attend [facility] or mandaeism services? 1 to 4 times per year 06/17/2023 Do you belong to any clubs o r organizations such as confucianist groups, unions, fraternal or athletic groups, or [...] Recorded Patient Health Questionnaire-2 Score 0 06/17/2023 [facility] - Occupational [...] place to sleep or slept in a correction (including now)? No 06/17/2023 Housing Stability Vital [...] Sex Assigned at Male 09/12/2024 10:51 PM CENTRIFUGAL STATION OPERATOR Legal Sex Male 4:43 PM CDT [...] discharge from hospital Lifestyle No 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, PHYSICAL THERAPY PROFESSOR Procedures Procedure Name Priority Date/Time Associated Diagnosis Comments XR HAND RT 3V STAT 11/10/2024 1:[address] ABD+PEL W CON STAT 10/07/2024 2:23 AM CENTRIFUGAL STATION OPERATOR LIPASE STAT 10/07/2024 2:04 AM CENTRIFUGAL STATION OPERATOR COMPREHENSIVE METABOLIC PANEL STAT 10/07/2024 2:04 AM CENTRIFUGAL STATION OPERATOR CBC W/DIFF AUTOMATED STAT 10/07/2024 2:04 AM CENTRIFUGAL STATION OPERATOR from Last 3 Months Results * XR HAND RT 3V (11/10/2024 1:04 AM CDT) Anatomical Region Laterality Modality Hand Radiographic Macarena ging 11/10/2024 1:06 AM CDT Impressions 11/10/2024 1:07 AM CDT IMPRESSION: 1. No definite acute fracture or dislocation identified in the right hand. Referred By: Interpreted By: Vinh Arita MD, 11/10/2024 1:06 AM Narrative 11/10/2024 1:07 AM CDT [address] [address] EXAMINATION: XR HAND RT 3V EXAM time: 11/10/2024 12:47 AM CLINICAL HISTORY: Right hand injury. Right third finger injury. COMPARISON: None TECHNIQUE: Right hand, 3 views. FINDINGS: No definite acute fracture or dislocation identified in the right hand. No remarkable arthritic changes. No abnormal soft tissue densities. Procedure Note Vinh Arita MD - 04/11/[address] [address] EXAMINATION: XR HAND RT 3V EXAM time: [...] W IV CON ONLY (10/07/2024 2:23 AM CENTRIFUGAL STATION OPERATOR) Anatomical Region Laterality Modality Abdomen Computed Tomogra phy 10/07/2024 2:25 AM CENTRIFUGAL STATION OPERATOR Impressions 10/07/2024 2:32 AM CENTRIFUGAL STATION OPERATOR IMPRESSION: 1. No definite acute CT [...] 10/07/2024 2:25 AM Narrative 10/07/2024 2:32 AM CENTRIFUGAL STATION OPERATOR [address] [address] EXAMINATION: CT ABD+PEL W CON, 10/07/2024 2:25 [...] Procedure Note Jeremiah Sam MD - 10/07/[address] [address] EXAMINATION: CT ABD+PEL W CON, 10/07/2024 2:25 [...] (ABNORMAL) COMPREHENSIVE METABOLIC PANEL (10/07/2024 2:04 AM CENTRIFUGAL STATION OPERATOR) GLUCOSE 115(H) 70 - 99 MG/DL 10/07/2024 2:54 AM CENTRIFUGAL STATION OPERATOR [facility] BUN 14 7 - 18 MG/DL 10/07/2024 2:54 AM CENTRIFUGAL STATION OPERATOR [facility] CREATININE S/P/B 1.24 0.7 - 1.3 MG/DL 10/07/2024 2:54 AM [facility] SODIUM S/P/B 140 136 - 145 MMOL/L 10/07/2024 2:54 AM [facility] POTASSIUM S/P/B 3.7 3.5 - 5.1 MMOL/L 10/07/2024 2:54 AM [facility] CHLORIDE S/P/B 110 97 - 115 MMOL/L 10/07/2024 2:54 AM [facility] CO2 28.8 21 - 32 MMOL/L 10/07/2024 2:54 AM [facility] CALCIUM S/P/B 8.4(L) 8.5 - 10.1 MG/DL 10/07/2024 2:54 AM [facility] BILIRUBIN TOTAL S/P/B 0.2 0.2 - 1.2 MG/DL 10/07/2024 2:54 AM [facility] Comment: THIS ASSAY IS NOT RECOMMENDED FOR PATIENTS UNDERGOING TREATMENT WITH ELTROMBOPAG DUE TO THE POTENTIAL FOR FALSELY ELEVATED RESULTS. TOTAL PROTEIN S/P/B 7.3 6.4 - 8.2 G/DL 10/07/2024 2:54 AM [facility] ALBUMIN S/P/B 3.4 3.4 - 5.0 G/DL 10/07/2024 2:54 AM [facility] AST 15 15 - 37 U/L 10/07/2024 2:54 AM [facility] ALT 26 16 - 60 U/L 10/07/2024 2:54 AM [facility] ALKALINE PHOSPHATASE S/P/B 71 50 - 136 U/L 10/07/2024 2:54 AM [facility] ANION GAP 1.2(L) 2 - 10 MMOL/L 10/07/2024 2:54 AM [facility] BUN CREATININE RATIO 11.3 6 - 26 10/07/2024 2:54 AM [facility] A/G RATIO 0.9(L) 1.0 - 2.0 RATIO 10/07/2024 2:54 AM [facility] GFR ESTIMATE 79(L) >90 ML/MIN/1.7 3 M2 10/07/2024 2:54 AM [facility] Comment: NOTE: eGFR is not calculated for patients <18 years of age or gender unknown. This is an estimated GFR calculation using the new CKD EPI creatinine equation without race and so does not require a correction factor for race. This estimated GFR should not be used for calculating drug doses. 10/07/2024 2:04 AM CENTRIFUGAL STATION OPERATOR [facility] Final Result [facility] [address] [place] [address], [place] [phone] * (ABNORMAL) CBC W/DIFF AUTOMATED (10/07/2024 2:04 AM CENTRIFUGAL STATION OPERATOR) WBC 6.53 4.5 - 11.0 x10'3/uL 10/07/2024 2:19 AM [facility] RBC 4.62(L) 4.70 - 6.10 x10'6/uL 10/07/2024 2:19 AM [facility] HGB 13.0(L) 14.0 - 18.0 G/DL 10/07/2024 2:19 AM [facility] HCT 41.1(L) 43.0 - 54.0 % 10/07/2024 2:19 AM [facility] MCV 89.0 80.0 - 94.0 FL 10/07/2024 2:19 AM [facility] MCH 28.1 27.0 - 31.0 PG 10/07/2024 2:19 AM [facility] MCHC 31.6(L) 32.0 - 36.0 G/DL 10/07/2024 2:19 AM [facility] RDW 13.2 11.5 - 14.5 % 10/07/2024 2:19 AM [facility] PLT 298 130 - 400 x10'3/uL 10/07/2024 2:19 AM [facility] MPV 9.8 9.3 - 12.2 FL 10/07/2024 2:19 AM [facility] DIFFERENTIAL TYPE AUTOMATED DIFFERENTIAL 10/07/2024 2:19 AM [facility] NEUTROPHILS % 61.9 % 10/07/2024 2:19 AM [facility] LYMPHOCYTES % 24.0 % 10/07/2024 2:19 AM [facility] MONOCYTES % 11.2 % 10/07/2024 2:19 AM [facility] EOSINOPHILS 2.0 % 10/07/2024 2:19 AM [facility] BASOPHILS 0.6 % 10/07/2024 2:19 AM [facility] IMMATURE GRANS % 0.3 % 10/08/19 2:19 AM [facility] ABS. NEUTROPHILS 4.04 1.80 - 7.70 x10'3/uL 10/07/2024 2:19 AM [facility] ABS. LYMPHOCYTES 1.57 1.00 - 4.80 x10'3/uL 10/07/2024 2:19 AM [facility] ABS. MONOCYTES 0.73 0.30 - 0.82 x10'3/uL 10/07/2024 2:19 AM CENTRIFUGAL STATION OPERATOR [facility] ABS. EOSINOPHILS 0.13 0.04 - 0.54 x10'3/uL 10/07/2024 2:19 AM CENTRIFUGAL STATION OPERATOR [facility] ABS. BASOPHILS 0.04 0.01 - 0.08 x10'3/uL 10/07/2024 2:19 AM CENTRIFUGAL STATION OPERATOR [facility] ABS. IMMATURE GRANULOCYTES 0.02 0.00 - 0.49 x10'3/uL 10/07/2024 2:19 AM CENTRIFUGAL STATION OPERATOR [facility] 10/07/2024 2:04 AM CENTRIFUGAL STATION OPERATOR [facility] Final Result [facility] [address] [place] [address], [place] [phone] * LIPASE (10/07/2024 2:04 AM CENTRIFUGAL STATION OPERATOR) LIPASE 32 13 - 75 UNITS/L 10/07/2024 2:54 AM CENTRIFUGAL STATION OPERATOR [facility] 10/07/2024 2:04 AM CENTRIFUGAL STATION OPERATOR [facility] Final Result [facility] [address] [place] [address], [place] [phone] from Last 3 Months Insurance [employer] Advance Directives * Full Code (Latest Code Status on File) Date Activated Date Inactivated Comments 06/16/2023 10:32 PM 06/18/2023 1:59 PM Care Teams Drafter Cartographic Relationship Specialty Start Date End Date None, Provider, MD PCP - General UNKNOWN PHYSICIAN SPECIALTY 06/16/23
[2024-12-18] MEDS: KETOROLAC 30 MG/ML VIAL (*BKC) 15 MG IM (23:30)
[2024-12-18] MEDS: ONDANSETRON HCL ODT 4 MG TABLET (23:31)
--- NOTE | 2024-12-18 23:31 | PC.NURSE ---
Per MD Ramon, she verbally states to do oral zofran instead of IV due to pt not having an IV.
--- NOTE | 2024-12-19 01:28 | ED_ITS ---
HPI - Chest Pain General Chief Complaint: Chest Pain Stated Complaint: Chest pain x 30min, Hx Pericarditis Time Seen by Provider: 12/18/24 22:49 History of Present Illness HPI narrative: 34M with h/o pericarditis started having chest pain when he got off work earlier today, feels like his pericarditis. Related Data Home Medications Medication Instructions Recorded Confirmed Last Taken Type clonazepam 0.5 mg tablet 0.5 mg PO PRN PRN Anxiety 12/15/23 12/15/23 Unknown History cyanocobalamin (vitamin B-12) 10,000 mcg PO DAILY 12/15/23 12/15/23 Unknown History 1,000 mcg tablet doxycycline hyclate 100 mg capsule 100 mg PO DAILY 12/15/23 12/15/23 Unknown History ferrous sulfate 325 mg (65 mg 325 mg PO DAILY 12/15/23 12/15/23 Unknown History iron) tablet (FeroSul) Allergies Allergy/AdvReac Type Severity Reaction Status Date / Time No Known Allergies Allergy Verified 12/18/24 21:56 Review of Systems 2 Review of Systems: All systems reviewed & are unremarkable except as noted in HPI and below PMFSH Past Medical History Medical History Depression Pericarditis Surgical History Surgical History No pertinent past surgical history Social History Social History Substance use type: does not use Exam 2 Narrative: EXAMINATION OF ORGAN SYSTEMS/BODY AREAS: Constitutional: Vital signs per nursing GENERAL:[No acute distress, non-toxic appearing.] HEAD: Normal with no signs of head trauma. EYES: EOMI, conjunctiva normal ENT: Hearing grossly intact LUNGS: Nonlabored breathing. HEART: [Regular rate and rhythm] ABD: [Soft], [nontender to palpation] EXT: Normal range of motion SKIN: [No rashes or lesions.] NEURO: [Alert and oriented x 3. No gross focal sensory or strength deficits.] PSYCH: Normal affect Course Vital Signs Vital signs: Vital Signs Temperature 98.8 F 12/18/24 21:57 Pulse Rate 68 12/18/24 21:57 Respiratory Rate 16 12/18/24 21:57 Blood Pressure 151/92 H 12/18/24 21:57 Pulse Oximetry 100 12/18/24 21:57 Oxygen Delivery Room Air 12/18/24 21:57 Temperature 98.8 F 12/18/24 21:57 Pulse Rate 63 12/18/24 23:47 Respiratory Rate 14 12/18/24 23:47 Blood Pressure 115/63 12/18/24 23:47 Pulse Oximetry 96 12/18/24 23:47 Oxygen Delivery Room Air 12/18/24 22:24 MDM - Chest Pain MDM Narrative Medical decision making narrative: Patient with history of pericarditis presents here with what feels like a pericarditis flare. EKG on my independent interpretation does show normal sinus rhythm, normal axis, diffuse ST elevations, all consistent with pericarditis, compared to prior EKG no new changes Labs here obtained show normal troponin, very minimally elevated creatinine. Chest x-ray on my independent interpretation shows thankfully without signs of cardiomegaly/pericardial effusion Patient has done well in the past with colchicine and NSAIDs so I will start him on that now, consult to take medications as prescribed, follow-up with Cardiology, make sure to keep hydrated. Patient agreeable to this plan with return precautions Lab Data 12/18/24 22:10 12/18/24 22:10 Labs: Lab Results 12/18/24 Range/Units 22:10 WBC 5.9 (4.5-10.0) K/mm3 RBC 4.98 (4.6-6.20) M/mm3 Hgb 13.9 L (14.0-18.0) g/dL Hct 44.6 (42.0-52.0) % MCV 89.6 (80-100) fl MCH 27.9 (26-34) pg MCHC 31.2 L (32-36) g/dl RDW 13.5 (11.5-14.5) % Plt Count 230 (150-375) k/mm3 MPV 9.8 (7.4-10.4) fl Immature Gran % (Auto) 0.3 (0-0.5) % Neut % (Auto) 62.9 (45.5-73.1) % Lymph % (Auto) 25.4 (18.3-44.2) % Emmons % (Auto) 8.6 H (2.6-8.5) % Eos % (Auto) 2.5 (0-4.4) % Baso % (Auto) 0.3 (0.2-1.2) % Lymph # (Auto) 1.51 (0.9-3.2) K/mm3 Emmons # (Auto) 0.5 (0.1-0.6) K/mm3 Eos # (Auto) 0.2 (0-0.3) K/mm3 Baso # (Auto) 0.0 (0.0-0.1) K/mm3 Abs Immat Gran (auto) 0.02 (0.00-0.031) K/mm3 Absolute Neuts (auto) 3.7 (1.3-6.7) K/mm3 Absolute Nucleated RBC 0.000 (0.0-0.012) K/mm3 Nucleated RBC % 0.0 (0.0-0.2) % PT 13.4 (11.1-14.7) Seconds INR 1.0 APTT 27.3 (22.3-36.8) Seconds Sodium 142 (137-145) mmol/L Potassium 4.2 (3.4-5.0) mmol/L Chloride 106 (98-107) mmol/L Carbon Dioxide 27 (22-30) mmol/L Anion Gap 9 (4-12) mmol/L BUN 15 (9-20) mg/dL Creatinine 1.36 H (0.7-1.3) mg/dL Estim Creat Clear Calc 74 ml/min Estimated GFR 60 (59 - ) Glucose 104 (65-110) mg/dL Calcium 9.0 (8.4-10.2) mg/dL Total Bilirubin 0.2 (0.2-1.3) mg/dL AST 33 (17-59) U/L ALT 30 (6-50) U/L Alkaline Phosphatase 64 (38-126) U/L Troponin I < 0.012 (0.000-0.034) ng/mL Total Protein 8.0 (6.3-8.2) g/dL Albumin 4.6 (3.5-5.1) g/dL Lipase 100 (23-300) U/L Discharge Plan Discharge Clinical Impression: Pericarditis Patient Disposition: Home Condition: Stable Instructions: Acute Pericarditis (ED) Additional Instructions: Follow up with the stave block splitter and take the medications as prescribed; you can always return to the ER for any further issues. Patient Language: Guatemalan Prescriptions: New colchicine 0.6 mg capsule 0.6 mg PO BID Qty: 30 0RF prednisone 20 mg tablet 40 mg PO DAILY 5 Days Qty: 10 0RF ibuprofen 600 mg tablet 600 mg PO TID PRN (Reason: fever or pain) Qty: 30 0RF No Action doxycycline hyclate 100 mg capsule 100 mg PO DAILY clonazepam 0.5 mg tablet 0.5 mg PO PRN PRN (Reason: Anxiety) cyanocobalamin (vitamin B-12) 1,000 mcg tablet 10,000 mcg PO DAILY ferrous sulfate [FeroSul] 325 mg (65 mg iron) tablet 325 mg PO DAILY colchicine 0.6 mg capsule 0.6 mg PO DAILY Qty: 14 0RF Follow-up/Referrals: Kev Pereira MD [Physician] - 2 Days PHYSICIAN,PUBLIC INFORMATION RELATIONS MANAGER [Primary Care Provider] -
== END 2024-12-19 | disposition home or self-care (01) ==
PROVIDERS: Emergency Provider Emergency Medicine
DX: I31.9 Disease of pericardium, unspecified (principal); F32.A Depression, unspecified; R94.31 Abnormal electrocardiogram [ECG] [EKG]
CPT/HCPCS: 36415; 71046; 80053; 83690; 84484; 85025; 85610; 85730; 93005; 96372; 96374; 96375; 99284; A9270; J1885

== ENCOUNTER 2025-01-12 21:42 | Emergency (ER) | payer OTHER, SELFPAY ==
--- NOTE | ~2025-01-12 | XR_ITS ---
XR chest 1V portable Ordering provider: Jacqueline Ng MD History: 34 years Male with . BRIAN, h/o asthma . Comparison: December 18, 2024 FINDINGS: MEDIASTINUM: The cardiac silhouette is not enlarged. LUNGS: No infiltrates, effusions or pneumothorax. OTHER: No free air under the diaphragm. IMPRESSION: No acute cardiopulmonary pathology. Reviewed, dictated and finalized at location A.
--- OUTSIDE RECORDS SUMMARY | 2025-01-12 21:44 | XMS_ITS ---
Author Organization [facility] Address [address] [place] [address] Care Team Providers Care Automation Test Developer Name Role Phone Rocío Castillo Primary Care Provider [phone] REASON FOR VISIT psych eval, fu from [facility] Social History Sex Assigned At : Social History Observation Description Sex Assigned At Male Encounters Encounter Location Date Provider Diagnosis [address] [place] [address] 10/16/2024 Rocío Castillo Plan Of Treatment No Information Progress Notes * Flaco BESTDOB:[birth year] (34 yo M)Acc No.[id number]:10/16/2024 UNLOCKED PROGRESS NOTE Patient: Flaco LYNN Provider: Lluvia Castillo MSN, ASSISTANT CLINICAL DIRECTOR, LINEMAN A CLASS-C :1990 A ge:34 Y S ex:Male Date:10/16/2024 Address:[address] [place] [address], [facility], [id number] Subjective: * Chief Complaints: * 1 . psych eval, fu from [facility]. * Medical History: Objective: * Vitals: Assessment: Plan: * Treatment: * * Electronic signature of Stacey Castillo , [id number] on 01/12/2025 at 09:44 PM CDT Sign off status: Pending * Provider: Lluvia Castillo MSN, ASSISTANT CLINICAL DIRECTOR, LINEMAN A CLASS-C Date: 0 10/16/2024 Generated for Roseann hernandez/Marcos/eTransmitting on: 01/12/2025 09:44 PM CDT
--- OUTSIDE RECORDS SUMMARY | 2025-01-12 21:44 | XMS_ITS | Encounter Summary ---
Author Organization [facility] Address [address] [place] [address] Care Team Providers Care Poultry Picking Machine Tender Name Role Phone Unavailable Primary Care Provider Unavailabl e Encounter Details Date Type Department Care Team (Late st Contact Info) Description 12/22/2024 Lab Requisition [facility] Laboratory Services [address] [phone] Ventura Brian MD [address] [place] [phone] Social History Tobacco Use Types Packs/Day Years Used Date Smoking Tobacco: Never Assessed Sex and Gender Information Value Date Recorded Sex Assigned at Not on file Legal Sex Male 8:18 AM BEER RUNNER Gender Identity Not on file Sexual Orientation Not on file documented as of this encounter Plan of Treatment Not on file documented as of this encounter Procedures Procedure Name Priority Date/Time Associated Diagnosis Comments HEMOGLOBIN A1C Routine 12/22/2024 5:35 AM CDT LIPID PANEL Routine 12/22/2024 5:35 AM CDT documented in this encounter Results * HEMOGLOBIN A1C (12/22/2024 5:35 AM CDT) HEMOGLOBIN A1C 5.5 <=5.6 % 12/22/2024 7:21 AM CDT [facility] [employer] [facility] [place] [facility] EST. AVG GLUCOSE, A1C 111 mg/dL 12/22/2024 7:21 AM CDT [facility] [employer] [place] [facility] Blood Venipuncture / Unknown 12/22/2024 5:35 AM CDT 12/22/2024 6:18 AM CDT Critical access hospital LABORATORY [facility] [place] [facility] - 12/22/2024 7:21 AM CDT HGB A1C INTERPRETATION NORMAL: <5.7% PRE-DIABETES: 5.7 - 6.4% DIABETES: 6.5% OR GREATER us Ventura Brian MD CHEMISTRY ORDERABLES Final Res ult [facility] [id number] [address] [place] [address] * LIPID PANEL (12/22/2024 5:35 AM CDT) [facility] CHOLESTEROL 132 <200 mg/dL 12/22/2024 7:25 AM CDT [facility] TRIGLYCERIDE 83 <150 mg/dL 12/22/2024 7:25 AM CDT [facility] HDL 45 40 - 59 mg/dL 12/22/2024 7:25 AM CDT [facility] LDL CALCULATED 70 <100 mg/dL 12/22/2024 7:25 AM CDT [facility] NON-HDL CHOLESTEROL 87 <130 mg/dL 12/22/2024 7:25 AM T [facility] Blood Venipuncture / Unknown 12/22/2024 5:35 AM CDT 12/22/2024 6:18 AM CDT [facility] LAB - 12/22/2024 7:25 AM CDT TOTAL CHOLESTEROL mg/dL Desirable <200 [...] Brian MD CHEMISTRY ORDERABLES Final Res ult [facility] LABORATORY SERVICES - [facility] [id number] [address] [place] [address] documented in this encounter Visit Diagnoses Not on filedocumented in this encounter
--- OUTSIDE RECORDS SUMMARY | 2025-01-12 21:44 | XMS_ITS | Patient Health Record ---
Author Organization [facility] Address [address] [place] [address] Care Team Providers Care Premium Card Cancellation Clerk Name Role Phone Rocío Castillo Primary Care Provider Reason For Referral No Information Social History Sex Assigned At : Social History Observation Description Sex Assigned At Male Encounters Encounter Location Date Provider Diagnosis [address] [place] [address] 10/16/2024 Rocío Castillo Plan Of Treatment No Information Insurance Providers Payer Name Payer Address Payer Phone Subscriber Number Group Number Insured Name Patient Relationship to Insured Coverage Start Date Coverage End Date [id number] [phone] [id number] [employer] Self - patient is the insured 4
--- OUTSIDE RECORDS SUMMARY | 2025-01-12 21:44 | XMS_ITS | Encounter Summary ---
Author Organization [facility] Address [address] [place] [address] Care Team Providers Care Regulatory Consultant Name Role Phone Unavailable Primary Care Provider Unavailabl e Encounter Details Date Type Department Care Team (Late st Contact Info) Description 11/05/[address] [facility] Laboratory Services [address] [phone] Ventura Brian MD [address] [place] [phone] Social History Tobacco Use Types Packs/Day Years Used Date Smoking Tobacco: Never Assessed Sex and Gender Information Value Date Recorded Sex Assigned at Not on file Legal Sex Male 8:18 AM MANAGER CARE MANAGEMENT Gender Identity Not on file Sexual Orientation [...] 5.5 <=5.6 % 11/05/2024 9:48 AM CDT [facility] EST. AVG GLUCOSE, A1C 111 mg/dL 11/05/2024 9:48 AM CDT [facility] Blood 11/05/2024 6:48 AM CDT 11/05/2024 8:45 AM CDT Narrative [facility]AT[facility] - 11/05/2024 9:48 AM CDT HGB A1C INTERPRETATION NORMAL: <5.7% PRE-DIABETES: 5.7 - 6.4% DIABETES: 6.5% OR GREATER Ventura Brian MD CHEMISTRY ORDERABLES Final Res ult Performing Organization Address City/[facility]/ZIP Co de Phone Number [facility] [id number] [address] [place] [phone] * GLUCOSE LEVEL (11/05/2024 6:48 AM CDT) GLUCOSE 91 70 - 115 mg/dL 11/05/2024 9:58 AM CDT [facility] Blood Collection / Unknown 11/05/2024 6:48 AM CDT 11/05/2024 8:45 AM CDT Ventura Brian MD CHEMISTRY ORDERABLES Final Res ult Performing Organization Address City/[facility]/ZIP Co de Phone Number [facility] [id number] [address] [place] [phone] * LIPID PANEL (11/05/2024 6:48 AM CDT) CHOLESTEROL 136 <200 mg/dL 11/05/2024 9:58 AM CDT [facility] TRIGLYCERIDE 69 <150 mg/dL 11/05/2024 9:58 AM CDT [facility] HDL 50 40 - 59 mg/dL 11/05/2024 9:58 AM CDT [facility] LDL CALCULATED 72 <100 mg/dL 11/05/2024 9:58 AM CDT [facility] NON-HDL CHOLESTEROL 86 <130 mg/dL 11/05/2024 9:58 AM CDT [facility] Blood Collection / Unknown 11/05/2024 6:48 AM CDT 11/05/2024 8:45 AM CDT Narrative [facility] - 11/05/2024 9:58 AM CDT TOTAL [...] ORDERABLES Final Res ult [facility] [id number] [address] [place] [phone] documented in this encounter Visit Diagnoses Not on filedocumented in this encounter
--- OUTSIDE RECORDS SUMMARY | 2025-01-12 21:45 | XMS_ITS | Clinical Summary ---
Author Organization [facility] Address [address] [place] [address] Phone Care Team Providers Care Cement Tester Assistant Name Role Phone Provider, None Primary Care Provider Unavailabl e Allergies No known active allergies Medications Mirtazapine (REMERON) 7.5 MG Tablet Take [...] 4 hours as needed for Wheezing. Active ketorolac (TORADOL) 10 MG Tablet Take 1 Tablet by mouth every 6 hours as needed for Moderate or more severe pain. 20 Tablet 5 Active predniSONE (DELTASONE) 50 MG Tablet Take 1 Tablet by mouth daily for 5 days. 5 Tablet 5 01/11/20 25 Encounters Date Type Department Care Team Description 01/05/2025 8:53 PM CDT - 01/05/2025 11:26 PM CDT Emergency [facility] Emergency [address] [place] [address] Shaka Salguero MD Chronic pericarditis, unspecified complication status, unspecified type Discharge Disposition: Discharged to home or Selfcare 01/05/2025 Travel from Last 3 Months Social History [...] Sign Reading Time Taken Comments Blood Pressure 146/88 01/05/2025 11:24 PM CDT Pulse 84 01/05/2025 11:24 PM CDT Temperature 36.8 C (98.2 F) 01/05/2025 9:02 PM CDT Respiratory Rate 18 01/05/2025 11:24 PM CDT Oxygen Saturation 96% 01/05/2025 11:24 PM CDT Inhaled Oxygen Concentration - - Weight 74.8 kg (165 lb) 01/05/2025 9:02 PM CDT Height 180.3 cm (5' 11) 01/05/2025 9:02 PM CDT Body Mass Index 23.01 01/05/2025 9:02 PM CDT Plan of Treatment Health Maintenance Due Date Last Done Comments Hepatitis C Virus (HCV) Screening 1991 TdaP Immunization 1991 Hepatitis B Immunization (3 of 3 - 3-dose series) 11/16/2000 09/21/2000, 04/04/1996 Human Papillomavirus (HPV) Immunization (1 - Male 3-dose series) 2006 Pneumococcal Immunization Combined (1 of 2 - PCV) 2010 SARS-COV-2 Immunization ( - season) 2024 Influenza Immunization (Season Ended) 2025 Respiratory Syncytial Virus (RSV) Immunization (Adult) (1 - 1-dose 75+ series) 2066 DTaP/Tdap/Td Immunization Discontinued 1995, 08/20/1992, 06/20/1992, Additional history exists Meningococcal Immunization (ACWY) Aged Out No longer eligible based on patient's age to complete this topic Rotavirus Immunization Aged Out No lo nger eligible based on patient's age to complete this topic Procedures Procedure Name Priority Date/Time Associated Diagnosis Comments XR CHEST SINGLE VIEW PORTABLE STAT 01/05/2025 9:19 PM CDT CBC WITH AUTO DIFFERENTIAL STAT 01/05/2025 9:10 PM CDT TROPONIN I, HIGH SENSITIVITY (HSTRP) STAT 01/05/2025 9:10 PM CDT COMPLETE BLOOD COUNT (CBC) WITH DIFF STAT 01/05/2025 9:10 PM CDT CMP (COMPREHENSIVE METABOLIC PANEL) STAT 01/05/2025 9:10 PM CDT EKG 12 LEAD STAT 01/05/2025 8:51 PM CDT EKG SCAN 01/05/2025 12:00 AM CDT from Last 3 Months Results * XR CHEST SINGLE VIEW PORTABLE (01/05/2025 9:19 PM CDT) Anatomical Region Laterality Modality Chest N/A Computed Radiogr aphy 01/05/2025 9:32 PM CDT Impressions 01/05/2025 9:35 PM CDT IMPRESSION: No acute cardiopulmonary abnormality. Narrative 01/05/2025 9:35 PM CDT EXAM DESCRIPTION: XR CHEST SINGLE VIEW PORTABLE REASON FOR STUDY: chronic pericarditis TECHNIQUE: Single radiographic view(s) of the chest. COMPARISON: No prior FINDINGS: LUNGS: Pulmonary vascularity appears normal. No confluent infiltrate or effusion. Costophrenic angles are sharp. HEART/MEDIASTINUM: Cardiac silhouette normal in size. Mediastinal and hilar contours appear normal. LINES/TUBES: None. BONES: No acute osseous abnormality. THIS IS AN ELECTRONICALLY VERIFIED FINAL REPORT 01/05/2025 9:32 PM - Electronically signed by Kev Canela M.D. MJ: [email or web address] Report ID: [id number] Reading Location: [id number] Procedure Note Kev Canela MD - 01/05/2025 EXAM DESCRIPTION: XR CHEST SINGLE VIEW PORTABLE REASON FOR STUDY: chronic pericarditis TECHNIQUE: Single radiographic view(s) of the chest. COMPARISON: No prior FINDINGS: LUNGS: Pulmonary vascularity appears normal. No confluent infiltrate or effusion. Costophrenic angles are sharp. HEART/MEDIASTINUM: Cardiac silhouette normal in size. Mediastinal and hilar contours appear normal. LINES/TUBES: None. BONES: No acute osseous abnormality. THIS IS AN ELECTRONICALLY VERIFIED FINAL REPORT 01/05/2025 9:32 PM - Electronically signed by Kev Canela M.D. MJ: [email or web address] Report ID: [id number] Reading Location: [place] [address] IMPRESSION: No acute cardiopulmonary abnormality. Shaka Salguero MD IMG DIAGNOSTIC ORDERABLES Final Result * TROPONIN I, HIGH SENSITIVITY (HSTRP) (01/05/2025 9:10 PM CDT) [facility] TROPONIN I, HIGH SENSITIVITY- MCRAE 11 <=35 ng/L 01/05/2025 9:50 PM CDT [facility] Comment: High-sensitivity troponin I results are reported in ng/L making the result appear to be 1,000 times higher than the contemporary troponin I value which is reported in ng/ml. Results from [facility]. Blood Venipuncture / Unknown 01/05/2025 9:10 PM CDT 01/05/2025 9:25 PM CDT Shaka Salguero MD CHEMISTRY ORDERABLES Final Result [facility] [address] [place] [address] * (ABNORMAL) CBC with Auto Differential (01/05/2025 9:10 PM CDT) [facility] WBC 8.19 4.00 - 12.00 10(3)/mcL 01/05/2025 9:28 PM CDT [facility] RBC 4.79 4.40 - 5.80 10(6)/mcL 01/05/2025 9:28 PM CDT [facility] HEMOGLOBIN (HGB) 13.7 13.0 - 16.5 g/dL 01/05/2025 9:28 PM CDT [facility] HEMATOCRIT (HCT) 42.4 38.0 - 50.0 % 01/05/2025 9:28 PM CDT [facility] MCV 88.5 82.0 - 96.0 fL 01/05/2025 9:28 PM CDT [facility] MCH 28.6 26.0 - 32.0 pg 01/05/2025 9:28 PM CDT [facility] MCHC 32.3 31.0 - 36.0 g/dL 01/05/2025 9:28 PM CDT [facility] PLATELET COUNT 259 140 - 440 10(3)/mcL 01/05/2025 9:28 PM CDT [facility] RDW 13.3 11.8 - 15.5 % 01/05/2025 9:28 PM CDT [facility] MPV 9.5 8.0 - 12.6 fL 01/05/2025 9:28 PM CDT [facility] NEUTROPHILS 53.1 40.0 - 68.0 % 01/05/2025 9:28 PM CDT [facility] LYMPHOCYTES 33.0 19.0 - 49.0 % 01/05/2025 9:28 PM CDT [facility] MONOCYTES 11.5 3.0 - 13.0 % 01/05/2025 9:28 PM CDT [facility] EOSINOPHILS 2.0 0.0 - 8.0 % 01/05/2025 9:28 PM CDT [facility] BASOPHILS 0.4 0.0 - 1.0 % 01/05/2025 9:28 PM CDT [facility] ABSOLUTE NEUTROPHILS 4.36 1.40 - 5.30 10(3)/mcL 01/05/2025 9:28 PM CDT [facility] ABSOLUTE LYMPHOCYTES 2.70 0.90 - 3.30 10(3)/mcL 01/05/2025 9:28 PM CDT [facility] ABSOLUTE MONOCYTES 0.94(H) 0.10 - 0.90 10(3)/mcL 01/05/2025 9:28 PM CDT [facility] ABSOLUTE EOSINOPHIL 0.16 0.00 - 0.50 10(3)/mcL 01/05/2025 9:28 PM CDT [facility] ABSOLUTE BASOPHILS 0.03 0.00 - 0.10 10(3)/mcL 01/05/2025 9:28 PM CDT [facility] NRBC PER 100 WBC 0 01/06/20 9:28 PM CDT [facility] Blood Venipuncture / Unknown 01/05/2025 9:10 PM CDT 01/05/2025 9:25 PM CDT us Shaka Salguero MD HEMATOLOGY ORDERABLES Vickie l Result [facility] [address] [place] [address] * (ABNORMAL) CMP (01/05/2025 9:10 PM CDT) SODIUM 140 136 - 145 mmol/L 01/05/2025 9:48 PM CDT [facility] POTASSIUM 4.0 3.5 - 5.1 mmol/L 01/05/2025 9:48 PM CDT [facility] CHLORIDE 107 98 - 107 mmol/L 01/05/2025 9:48 PM CDT [facility] CO2, VENOUS 24 22 - 30 mmol/L 01/05/2025 9:48 PM CDT [facility] ANION GAP 13.0 <18.0 mmol/L 01/05/2025 9:48 PM CDT [facility] GLUCOSE 95 70 - 99 mg/dL 01/05/2025 9:48 PM CDT [facility] BUN 12 9 - 21 mg/dL 01/05/2025 9:48 PM CDT [facility] CREATININE, BLOOD 1.33(H) 0.70 - 1.30 mg/dL 01/05/2025 9:48 PM CDT [facility] BUN/CREATININE RATIO 9(L) 12 - 20 ratio 01/05/2025 9:48 PM CDT [facility] TOTAL PROTEIN 7.9 6.0 - 8.0 g/dL 01/05/2025 9:48 PM CDT [facility] ALBUMIN 4.5 3.5 - 5.0 g/dL 01/05/2025 9:48 PM CDT [facility] A/G RATIO 1.3 1.0 - 2.2 01/05/2025 9:48 PM CDT [facility] CALCIUM 9.1 8.7 - 10.5 mg/dL 01/05/2025 9:48 PM CDT [facility] T BILI 0.2 0.2 - 1.2 mg/dL 01/05/2025 9:48 PM CDT [facility] SGOT (AST) 35 <43 U/L 01/05/2025 9:48 PM CDT [facility] SGPT (ALT) 41 <56 U/L 01/05/2025 9:48 PM CDT [facility] ALKALINE PHOSPHATASE 62 40 - 150 U/L 01/05/2025 9:48 PM CDT [facility] GFR, ESTIMATED >60 >=60 01/05/2025 9:48 PM CDT [facility] Comment: Creatinine Clearance is the preferred criteria for selecting drug dose adjustments in renally impaired patients. The GFR is provided as additional pertinent clinical information. GFR is reported in mL/min/1.73 sq m. Calculation based on the Chronic Kidney Disease Epidemiology Collaboration (CKD- EPI) equation refit without adjustment for race. GFR, EST. >60 >=60 025 9:48 PM CDT [facility] GFR, EST. NONAFRICAN >60 >=60 01/05/2025 9:48 PM CDT [facility] Blood Venipuncture / Unknown 01/05/2025 9:10 PM CDT 01/05/2025 9:25 PM CDT us Shaka Salguero MD CHEMISTRY ORDERABLES Final Result [facility] [address] [place] [address] * EKG 12 LEAD (01/05/2025 8:51 PM CDT) Ventricular Rate 73 BPM EXTERNAL EKG Atrial Rate 73 BPM EXTERNAL EKG P-R Interval 164 ms EXTERNAL EKG QRS Duration 110 ms EXTERNAL EKG Q-T Duration 356 ms EXTERNAL EKG QTC CALCULATION 392 ms EXTERNAL EKG P [place] 42 degrees EXTERNAL EKG R [place] 81 degrees EXTERNAL EKG T [place] 50 degrees EXTERNAL EKG 01/05/2025 8:51 PM CDT Impressions EXTERNAL EKG - 01/08/2025 9:18 AM CDT Normal sinus rhythm ST elevation, consider early repolarization, pericarditis, or injury Abnormal ECG When compared with ECG of 18-AUG-2023 23:06, No significant change was found ~ Confirmed by Jermaine Dimas ([id number]) on 01/08/2025 9:18:19 AM Narrative Procedure Note Jermaine Dimas MD - 01/08/2025 IMPRESSION: Normal sinus rhythm ST elevation, consider early repolarization, pericarditis, or injury Abnormal ECG When compared with ECG of 18-AUG-2023 23:06, No significant change was found ~ Confirmed by Jermaine Dimas ([id number]) on 01/08/2025 9:18:19 AM us Shaka Salguero MD IMG ECG ORDERABLES Final R esult EXTERNAL EKG * EKG SCAN (01/05/2025 12:00 AM CDT) 01/05/2025 us Provider Scan IMG ECG ORDERABLES Final Result RESULTING AGENCY from Last 3 Months Insurance MEDICAID [place] Care Teams Cement Tester Assistant Relationship Specialty Start Date End Date Provider, None [place] PCP - General 08/19/23
--- OUTSIDE RECORDS SUMMARY | 2025-01-12 21:45 | XMS_ITS | Clinical Summary ---
Author Organization [facility] Address [address] [place] [address] Care Team Providers Care Assistant Professor Name Role Phone No, Physician Primary Care Provider [phone] Allergies No known active allergies Medications colchicine (COLCRYS) 0.6 mg tabletIndication s:Pericarditis Take 1 tablet (0.6 mg total) by mouth 2 (two) times a day 60 tablet 2 5 026 Active colchicine (COLCRYS) 0.6 mg capsule Take 1 capsule (0.6 mg total) by mouth 2 (two) times a day 60 capsule 5 025 Discontinu ed(Stop Taking at Discharge) divalproex ER (DEPAKOTE ER) 500 mg 24 hr tablet Take 1 tablet (500 mg total) by mouth daily 5 025 Discontinu ed(Stop Taking at Discharge) famotidine (PEPCID) 20 mg tablet Take 1 tablet (20 mg total) by mouth 2 (two) times a day 5 025 Discontinu ed(Stop Taking at Discharge) FLUoxetine (PROzac) 20 mg capsule Take 1 capsule (20 mg total) by mouth daily 5 025 Discontinu ed(Stop Taking at Discharge) hydrOXYzine (ATARAX) 25 mg tablet Take 1 tablet (25 mg total) by mouth every 6 (six) hours as needed 5 025 Discontinu ed(Stop Taking at Discharge) ibuprofen (ADVIL,MOTRIN) 600 mg tablet Take 1 tablet (600 mg total) by mouth every 8 (eight) hours as needed for pain, fever or headaches 5 025 Discontinu ed(Stop Taking at Discharge) QUEtiapine (SEROquel) 100 mg tablet Take 1 tablet (100 mg total) by mouth nightly 5 Discontinu ed(Stop Taking at Discharge) predniSONE (DELTASONE) 5 mg tabletIndication s:recurrent pericarditis Take 7 tablets (35 mg) by mouth daily for 14 days 98 tablet 5 025 Discontinu ed(Stop Taking at Discharge) predniSONE (DELTASONE) 5 mg tabletIndication s:recurrent pericarditis Take 6 tablets (30 mg) by mouth daily for 14 days 84 tablet 5 025 Discontinu ed(Stop Taking at Discharge) predniSONE (DELTASONE) 5 mg tablet Take 5 tablets (25 mg) by mouth daily for 14 days 70 tablet 5 025 Discontinu ed(Stop Taking at Discharge) predniSONE (DELTASONE) 20 mg tabletIndication s:recurrent pericarditis Take 1 tablet (20 mg) by mouth daily for 14 days 14 tablet 5 025 Discontinu ed(Stop Taking at Discharge) predniSONE (DELTASONE) 5 mg tabletIndication s:recurrent pericarditis Take 3 tablets (15 mg) by mouth daily for 14 days 42 tablet 5 025 Discontinu ed(Stop Taking at Discharge) predniSONE (DELTASONE) 5 mg tabletIndication s:recurrent pericarditis Take 2 tablets (10 mg) by mouth daily for 3 days 6 tablet 5 025 predniSONE (DELTASONE) 5 mg tablet Take 1 tablet (5 mg) by mouth daily for 3 days 3 tablet 5 025 Active Problems Problem Noted Date Diagnosed Date Tobacco use disorder 01/07/2025 Assessment & Plan (01/07/2025 11:29 PM CDT): PCV20 is recommended. Unspecified depressive disorder 01/06/2025 Assessment & Plan (01/07/2025 10:51 AM CDT): Plan per psychiatry Chest pain 12/30/2024 History of iron deficiency 09/30/2024 Assessment & Plan (09/30/2024 9:09 AM [employer]): Will try to obtain iron studies I asked SW to help w/ PCP followup Epigastric pain 09/30/2024 Assessment & Plan (09/30/2024 9:17 AM [employer] DE[employer] HEAD): When asked where his pericarditis pain is, he points to the epigastrium. When I saw him in 11/2023, I had requested an H pylori stool antigen, which we were not able to obtain. -Try again to obtain H pylori antigen (especially w/ history of anemia) Depression 09/29/2024 Assessment & Plan (09/29/2024 1:17 PM [employer] DEPART[employer] HEAD): As per psychiatry Will addon a TSH Pericarditis 09/29/2024 Assessment & Plan (09/30/2024 9:10 AM [employer] OR [employer]ITY DEPARTMENT HEAD): Currently asymptomatic. Will obtain EKG. Will restart colchicine if symptoms recurs EKG w/ diffuse ST elevation in II, III, aVF, and V1-6, with no MO depression This might also be early repolarization See my notes from 11/16/23 and 11/17/23 for my thought process then He has a form maker (Dr Rivera, in [place]) with whom he can follow up Routine general medical exam ination at a health care facility 09/29/2024 Assessment & Plan (09/29/2024 1:17 PM [employer]PART[employer] HEAD): HIV, RPR negative Will recheck here Addon B12, TSH GERD (gastroesophageal reflux disease) Assessment & Plan (09/29/2024 1:18 PM [employer] DEPARTMENT HEAD): Hold off PPI for now as he notes no symptoms of acid reflux. Low threshold to restart. The chest pain (when present) he notes is epigastric so that may be a component of GERD Renal lesion 09/29/2024 Assessment & Plan (09/30/2024 9:09 AM [employer] DEPART[employer] HEAD): 11/02/23 CT: There are 3 low-attenuation lesions [...] 08/14/23, 11/02/23 w/ diffuse ST elevation, w/ MO depression) and a negative ischemic workup (including [...] 11/16/2023 Assessment & Plan (09/30/2024 9:11 AM [employer] HEAD): B12 300, same as 11/2023. Will replete [...] 11/16/2023 Assessment & Plan (09/30/2024 9:11 AM [employer] DEPART[employer] HEAD): Late latent, appropriately treated. See my 11/15/24 note Assessment & Plan (11/16/2023 1:25 PM CDT): As per my colleague Dr Bynum (see 09/07/23 medicine c/s note): - Has history of Syphilis, treated in 2013 , -Treponema ab + and RPR 1:4 on 08/29/23 when tested at [facility] ED Contacted [facility] ( [place] ) for info To see if titers are coming down , left message with Nurse ( [phone]): Called back received, Patient diagnosed with late latent syphilis at [facility] in [place] on 10-11 : +RPR titer 1 :256, treponema -EIA positive Completed treatment with benzathine penicillin G x 3 doses given on November 21 2013, November 28 2013 and December 052013 So appropriately treated Lumbar strain, initial encounter 09/16/2023 Anemia 09/08/2023 Assessment & Plan (09/08/2023 8:05 PM [employer]): -possible hx of GI bleed in June, [...] disease) Assessment & Plan (09/08/2023 5:10 AM [employer] DE[employer] HEAD): -continue pepcid Adjustment disorders, with mixed anxiety and dep ressed mood 09/07/2023 Assessment & Plan (09/08/2023 4:53 AM [employer] DE[employer] HEAD): Per Psychiatry Cannabis use disorder, moderate, dependence 01/2024 Assessment & Plan (09/08/2023 4:53 AM [employer]ITY DEPARTMENT HEAD): Per Psychiatry History of syphilis 09/07/2023 Assessment & Plan (09/08/2023 12:28 PM [employer]ITY DEPARTMENT HEAD): - Has history of Syphilis, treated in 2013 , -Treponema ab + and RPR 1:4 on 08/29/23 when tested at [facility] ED Contacted [facility] ( [place] ) for info To see if titers are coming down , left message with Nurse ( [phone]): Called back received, Patient diagnosed with late latent syphilis at [facility] in [place] on 10-11 : +RPR titer 1 :256, treponema -EIA positive Completed treatment with benzathine penicillin G x 3 doses given on November 21 2013, November 28 2013 and December 052013 -09-08-23 HIV 1/2 Abs +p24 Ag Non reactive Severe episode of recurrent major depressive disorder, without psychotic features 08/06/2023 Chronic pericarditis 06/16/2023 Assessment & Plan (01/07/2025 11:29 PM CDT): Patient has a chart history of pericarditis. I am not sure what the etiology is. I am also unsure of the veracity of this diagnosis. His troponins and CRPs have been negative going back to 2022. His TTEs have been unremarkable. His EKG's have been consistent across the years, showing ST elevations in many leads without a clear arterial anatomic correlation. He may have LVH, which could explain his EKG findings and be due to hypertension, genetic causes, or chronic exposure to high-dose stimulants. Dr. Mccarty's (psychiatry) assessment from 01/07/25 had a high concern for malingering and ASPD, with respect to his current presentation and deceitfulness with prior healthcare encounters and inconsistent history across providers. For now, I think monotherapy with colchicine is okay and benign, as this is my first encounter with him and I don't want to immediately jump to dismiss a diagnosis like this. He did report symptomatic improvement with colchicine, and I am not aware of any psychoactive effects of colchicine that would make someone seek it out for unintended purposes. Plan: Colchicine 0.6 mg BID Acute idiopathic pericarditis 06/03/2023 COVID 05/22/2023 Assessment [...] recs Assessment & Plan (07/27/2023 10:01 AM [employer]ITY DEPARTMENT HEAD): Wes has been struggling for the last 4 years with unstable realtionships, unstable housing, difficulty finding and maintaining employment, and in and out of residential/usp/probation. He says that he is sad about his grandmother passing, but is no longer suicidal because that's not what my granny would've wanted. He says that getting a job and [...] Med recs apprec; h/o pericarditis Swer to [facility] with follow-up and dispo Assessment & Plan (07/26/2023 9:44 AM [employer]ITY DEPARTMENT HEAD): Wes has been struggling for the last 4 years with unstable realtionships, unstable housing, difficulty finding and maintaining employment, and in and out of residential/usp/probation. He says that he is sad about his grandmother passing, but is no longer suicidal because that's not what my granny would've wanted. He says that getting a job and [...] Med recs apprec; h/o pericarditis Swer to [facility] with follow-up and dispo Assessment & Plan (07/25/2023 12:24 PM [employer]IV[employer]ITY DEPARTMENT HEAD): Wes has been struggling for the last 4 years with unstable realtionships, unstable housing, difficulty finding and maintaining employment, and in and out of residential/usp/probation. He says that he is sad about his grandmother passing, but is no longer suicidal because that's not what my granny would've wanted. He says that getting a job and [...] Med recs apprec; h/o pericarditis Swer to [facility] with follow-up and dispo Assessment & [...] was started on Abilify and Depakote in [place], and reports that his visual and auditory hallucinations have resolved. - Start Sertraline 50mg, consider titrating - Obtain further information about the hallucinations - Haldol 5 p.o. or Haldol 5/Ativan 2 IM PRN for agitation - Suicide/elopement/safety precautions - Therapeutic milieu - q15 min safety checks Asthma 05/22/2023 Assessment & Plan (09/29/2024 1:14 PM [employer] DEPART[employer] HEAD): Mild. Prn albuterol Assessment & Plan (09/08/2023 5:12 AM [employer] OR [employer]ITY DEPARTMENT HEAD): - no PFTs available , currently not in exacerbation, - PRN albuteral Assessment & Plan (07/25/2023 10:37 AM [employer] OR UNIVERSITY DEPARTMENT HEAD): Intermittent. No symptoms. Uses albuterol prn at [...] (11/04/2024): Added automatically from request for surgery [id number] Resolved Problems Problem Noted Date Diagnosed Date Resolved Date history of Pericarditis 09/07/202310/31 Assessment & Plan (09/08/2023 8:04 PM [employer] DEPART[employer] HEAD): - patient has not been able to afford colchicine and reports benefit when getting doses in ED visits - continue colchicine 0.6 mg po BID and monitor for side effects, it should be held if nausea, vomiting, diarrhea -Hold NSAIDS as -he as not tolerated with significant Gi side effects -Patient was seen by Cardiology as outpatient on 09/02/2023 at [facility] ([facility]) and has an [...] psychiatry Assessment & Plan (07/25/2023 10:36 AM [employer] OR [employer]IV[employer]ITY DEPARTMENT HEAD): Pt w/ hx of depression and anxiety presents w/ SI after grandmother passing. Didn't have intent or plan. Denies SI now -mgt per primary Encounters Date Type Department Care Team Description 01/06/2025 2:01 PM CDT - 01/09/2025 3:55 PM CDT [facility] [address] [place] [id number] Filipe Claros MD L'Ecuyer, Suzanne, MD de Leon, Victoria Carmen, MD Unspecified depressive disorder [F32.A] (Primary Dx); Chronic pericarditis [I31.9]; Cannabis use disorder, moderate, dependence (HCC) [F12.20] Discharge Disposition: Discharge to home or self care 01/06/2025 12:57 PM CDT - 01/06/2025 11:59 PM CDT Hospital Encounter [facility] Discharge Disposition: Discharge to home or self care 01/06/2025 12:47 AM CDT - 01/06/2025 12:58 PM CDT Emergency [facility] Emergency Department [address] [place] [address] Jose Sullivan MD Zozula, Jaskaran Macdonald MD Suicidal ideation (Primary Dx) Discharge Disposition: Discharge to psych hospital or psych unit 01/04/2025 [facility] Post Discharge Follow up phone call [facility] [address] [place] [address] Anastasiia Montano 01/01/2025 10:08 PM CDT - 01/02/2025 2:26 AM CDT Emergency Emergency Department [address] [place] [address] Irina Yeager MD Suicidal ideation (Primary Dx) Discharge Disposition: Discharge to home or self care 12/29/2024 10:58 PM CDT - 12/30/2024 4:10 PM CDT Hospital Encounter [facility] IMU [address] [place] [address] Jose Sullivan MD Fasick, Victoria Rose, DO Richards, John Albert Jr., MD Chest pain, unspecified type (Primary Dx); Other chest pain; Chronic pericarditis; Acute idiopathic pericarditis Discharge Disposition: Discharge to home or self care 12/20/2024 5:19 PM CDT - 12/21/2024 12:03 PM CDT Emergency [facility] Emergency Department [address] [place] [id number] Renetta Echols MD Suicidal ideation (Primary Dx) Discharge Disposition: Discharge to psych hospital or psych unit 11/04/2024 12:54 AM CDT - 11/04/2024 12:05 PM CDT [address] [address] Neel So MD Depression with suicidal ideation (Primary Dx); Abdominal pain; Amphetamine abuse (HCC); Sinus bradycardia Discharge Disposition: Discharge to psych hospital or psych unit from Last 3 Months Immunizations Immunization Administration Dates Next Due Pneumococcal Conjugate Pcv20 01/07/2025 Medical History Medical History Date Comments Pericarditis Asthma Depression with suicidal ideation 12/06/2023 Tobacco use Marijuana use Alcohol use Adjustment disorder Social History Tobacco Use Types Packs/Day Years Used Date Smoking Tobacco: Some Days Cigarettes Tobacco Cessation:Ready to Q uit: Not Asked; Counseling Given: Not Answered Alcohol Use Standard Drinks/Week Comments Defer 0 (1 standard drink = 0.6 oz pur e alcohol) [facility] Utilities Answer Date Recorded In the past 12 months has [email or web address], gas, oil, or water [employer] threatened to shut off services in your home? No 01/07/2025 Humiliation, Afraid, Rape, and Kick questionnair e Answer Date Recorded Within the last year, have y ou been afraid of your partner or ex-partner? No 01/07/2025 Within the last year, have y ou been humiliated or emotionally abused in other ways by your partner or ex-partner? No Within the last year, have y ou been kicked, hit, slapped, or otherwise physically hurt by your partner or ex-partner? No 01/07/2025 Within the last year, have y ou been raped or forced to have any kind of sexual activity by your partner or ex-partner? No 01/07/2025 Social Connection and Isolat ion Panel [NHANES] Answer Date Recorded In a typical week, how many times do you talk on the phone with family, friends, or neighbors? More than three times a week 01/07/2025 How often do you get togethe r with friends or relatives? More than three times a week 01/07/2025 How often do you attend chur or pentecostalism services? Never 01/07/2025 Do you belong to any clubs o r organizations such as anabaptism groups, unions, fraternal or athletic groups, or school groups? No 01/07/2025 How often do you attend meet ings of the clubs or organizations you belong to? Never 01/07/2025 Are you , , di vorced, , never , or living with a partner? 01/07/2025 AUDIT-C Answer Date Recorded Q1: How often do you have a drink containing alcohol? Never 01/07/2025 Q2: How many drinks containi ng alcohol do you have on a typical day when you are drinking? Patient does not drink Q3: How often do you have si x or more drinks on one occasion? Never 01/07/2025 Overall Financial Resource Strain (CARDIA) Answe r Date Recorded How hard is it for you to pa y for the very basics like food, housing, medical care, and heating? Somewhat hard 01/07/2025 PHQ-2 Answer Date Recorded PHQ-2 Total Score (If total score is 3 or more points, staff should administer the PHQ-9) 2 09/07/2023 [employer] [place] [facility] [employer] - Occupational Stress Questionnaire Answer Date Recorded Do you feel stress - tense, restless, nervous, or anxious, or unable to sleep at night because your mind is troubled all the time - these days? To some extent 01/07/2025 Exercise Vital Sign Answer Date Recorde d On average, how many days pe r week do you engage in moderate to strenuous exercise (like a brisk walk)? Patient declined On average, how many minutes do you engage in exercise at this level? Patient declined 01/07/2025 Hunger Vital Sign Answer Date Recorded Within the past 12 months, y ou worried that your food would run out before you got the money to buy more. Often true 01/08/20 25 Within the past 12 months, t he food you bought just didn't last and you didn't have money to get more. Often true 01/07/2025 PRAPARE - Transportation Answer Date Re corded In the past 12 months, has l ack of transportation kept you from medical appointments or from getting medications? No 03/2025 In the past 12 months, has l ack of transportation kept you from meetings, work, or from getting things needed for daily living? No 01/07/2025 Housing Stability Vital Sign Answer Pavel e [...] or slept in a correction (including now)? Yes 10/02/2023 Housing Stability Vital Sign Answer Pavel e Recorded In the last 12 months, was t here a time when you were not able to pay the mortgage or rent on time? No 01/07/2025 Number of Times Moved in the Last Year Not on fi le 01/07/2025 At any time in the past 12 m [facility], were you homeless or living in a correction (including now)? No 01/07/2025 Personal Safety Answer Date Recorded Have you ever been in or are you currently in a harmful physical or emotional relationship or is someone making you feel afraid or unsafe? Denies 01/06/2025 Education Answer Date Recorded What is the highest level of school you have completed or the highest degree you have received? GED or equivalent 01/2024 Sex and Gender Information Value Date Recorded Sex Assigned at Not on file Legal Sex Male 5:49 PM [employer] Gender Identity Not on file Sexual Orientation Not on file Obstetrics History Last Filed Vital Signs Vital Sign Reading Time Taken Comments Blood Pressure 154/91 01/09/2025 7:00 AM CDT Pulse 65 01/09/2025 7:00 AM CDT Temperature 36.7 C (98.1 F) 01/09/2025 7:00 AM CDT Respiratory Rate 20 01/09/2025 7:00 AM CDT Oxygen Saturation 95% 01/09/2025 7:00 AM CDT Inhaled Oxygen Concentration - - Weight 76.5 kg (168 lb 11.2 oz) 01/06/2025 2:15 PM CDT Height 177.8 cm (5' 10) 01/06/2025 2:15 PM CDT Body Mass Index 24.21 01/06/2025 2:15 PM CDT Plan of Treatment Health Maintenance Due Date Last Done Comments Hepatitis C Screening 1991 DTaP/Tdap/Td Vaccine (5 - Tdap) 2002 04/04/1996, 08/20/1992, 06/20/1992, Additional history exists Varicella Vaccines (1 of 2 - 13+ 2-dose series) 2004 Regular Well Visit/Exam 18-64 2009 Depression Screening 09/06/2024 09/06/2023, 09/06/2023, 05/21/2023, Additional history exists Influenza Vaccine (Season Ended) 2025 Hepatitis B Screening Completed 09/21/2000, 996 Pneumococcal vaccine <65 Completed 01/07/2025 HPV Vaccines Aged Out No longer eligi ble based on patient's age to complete this topic Procedures Procedure Name Priority Date/Time Associated Diagnosis Comments URINALYSIS, MICROSCOPIC ONLY STAT 01/06/2025 12:40 AM CDT DRUGS OF ABUSE SCREEN, URINE WITHOUT CONFIRMATION STAT 01/06/2025 12:40 AM CDT URINE CULTURE STAT 01/06/2025 12:40 AM CDT URINALYSIS AND REFLEX TO MICROSCOPIC AND CULTURE STAT 01/06/2025 12:40 AM CDT EGFR STAT 01/06/2025 12:32 AM CDT DIFFERENTIAL AUTO STAT 01/06/2025 12: 32 AM CDT ETHANOL STAT 01/06/2025 12:32 AM CDT THYROID FUNCTION CASCADE STAT 01/06/2025 12:32 AM CDT COMPREHENSIVE METABOLIC PANEL STAT 01/06/2025 12:32 AM CDT CBC WITH AUTO DIFFERENTIAL STAT 01/06/2025 12:32 AM CDT COVID-19 CORONAVIRUS RNA STAT 01/06/2025 12:32 AM CDT CREATINE KINASE (CK), TOTAL STAT 01/01/2025 10:28 PM CDT VALPROIC ACID LEVEL, TOTAL STAT 01/01/2025 10:28 PM CDT SALICYLATE LEVEL STAT 01/01/2025 10:2 8 PM CDT ACETAMINOPHEN LEVEL STAT 01/01/2025 1 0:28 PM CDT EGFR STAT 01/01/2025 10:28 PM CDT URINALYSIS, MICROSCOPIC ONLY STAT 01/01/2025 10:28 PM CDT DIFFERENTIAL AUTO STAT 01/01/2025 10: 28 PM CDT URINALYSIS AND REFLEX TO MICROSCOPIC STAT 01/01/2025 10:28 PM CDT LIPASE STAT 01/01/2025 10:28 PM CDT COMPREHENSIVE METABOLIC PANEL STAT 01/01/2025 10:28 PM CDT CBC WITH AUTO DIFFERENTIAL STAT 01/01/2025 10:28 PM CDT ANUSHKA SCREEN W/REFLEX FLIP+DSDNA Routine 12/30/2024 11:56 AM CDT RPR Routine 12/30/2024 11:56 AM CDT HIV 1/2 ANTIBODY PLUS P24 ANTIGEN Routine 12/30/2024 11:56 AM CDT EGFR Timed 12/30/2024 5:09 AM CDT DIFFERENTIAL AUTO Timed 12/30/2024 5:0 9 AM CDT CBC WITH AUTO DIFFERENTIAL Timed 12/30/2024 5:09 AM CDT PHOSPHORUS Timed 12/30/2024 5:09 AM CDT MAGNESIUM Timed 12/30/2024 5:09 AM CDT COMPREHENSIVE METABOLIC PANEL Timed 12/30/2024 5:09 AM CDT TROPONIN T HIGH-SENSITIVITY 6-HOUR Timed 12/30/2024 5:09 AM CDT CRP (ACUTE PHASE) Add-On 12/30/2024 5:0 7 AM CDT ERYTHROCYTE SEDIMENTATION RATE Add-On 12/30/2024 5:07 AM CDT LIPASE Add-On 12/30/2024 12:43 AM CDT TROPONIN T HIGH-SENSITIVITY 2-HOUR Timed 12/30/2024 12:43 AM CDT ECG 12-LEAD Routine 12/30/2024 12:32 AM CDT ECG 12-LEAD Routine 12/30/2024 12:32 AM CDT DRUGS OF ABUSE SCREEN, URINE WITHOUT CONFIRMATION STAT 12/30/2024 12:06 AM CDT URINALYSIS AND REFLEX TO MICROSCOPIC AND CULTURE STAT 12/30/2024 12:06 AM CDT ECG 12-LEAD Routine 12/29/2024 11:[address] CHEST PE W CONTRAST ED 11:53 PM CDT XR CHEST 1 VIEW ED 12/29/2024 11:19 PM CDT T3, FREE Routine 12/29/2024 11:09 PM CDT T4, FREE Routine 12/29/2024 11:09 PM CDT EGFR STAT 12/29/2024 11:09 PM CDT DIFFERENTIAL AUTO STAT 12/29/2024 11: 09 PM CDT THYROID FUNCTION CASCADE Routine 12/29/2024 11:09 PM CDT MAGNESIUM STAT 12/29/2024 11:09 PM CDT TROPONIN T HIGH-SENSITIVITY SERIES (BASELINE, 2HR, 4HR, 6HR) STAT 12/29/2024 11:09 PM CDT COMPREHENSIVE METABOLIC PANEL STAT 12/29/2024 11:09 PM CDT CBC WITH AUTO DIFFERENTIAL STAT 12/29/2024 11:09 PM CDT URINALYSIS, MICROSCOPIC ONLY STAT 12/20/2024 5:19 PM CDT DRUGS OF ABUSE SCREEN, URINE WITHOUT CONFIRMATION STAT 12/20/2024 5:19 PM CDT URINALYSIS AND REFLEX TO MICROSCOPIC AND CULTURE STAT 12/20/2024 5:19 PM CDT SALICYLATE LEVEL STAT 12/20/2024 5:06 PM CDT EGFR STAT 12/20/2024 5:06 PM CDT ACETAMINOPHEN LEVEL STAT 12/20/2024 5 :06 PM CDT DIFFERENTIAL AUTO STAT 12/20/2024 5:0 6 PM CDT ETHANOL STAT 12/20/2024 5:06 PM CDT THYROID FUNCTION CASCADE STAT 12/20/2024 5:06 PM CDT COMPREHENSIVE METABOLIC PANEL STAT 12/20/2024 5:06 PM CDT CBC WITH AUTO DIFFERENTIAL STAT 12/20/2024 5:06 PM CDT COVID-19 CORONAVIRUS RNA STAT 12/20/2024 5:[address] ABDOMEN PELVIS W CONTRAST ED 11/04/2024 [...] 1:26 AM CDT DIFFERENTIAL AUTO STAT 11/04/2024 1: 26 AM CDT ANTIBODY SCREEN STAT 11/04/2024 1:26 [...] ECG 12-LEAD STAT 11/04/2024 1:07 AM CDT from Last 3 Months Results * (ABNORMAL) Urinalysis reflex to microscopic and culture Urine (01/06/2025 12:40 AM CDT) Color, ur Yellow Yellow Clarity, ur Clear Clear [facility] ([facility]) Specific gravity, ur 1.023 1.003 - 1.030 [facility] ([facility]) pH, urine 5.5 [facility] ([facility]) Comment: Interpretive Data U rine pH is affected by diet, medications, systemic acid-base disturbances, and renal tubular function. pH may affect urinary stone formation. For example, urine pH below 6.0 may help reduce the tendency for calcium phosphate stones and pH greater than 6.0 may reduce the tendency for uric acid stone formation. Source: [facility] [employer] Current Interpretive Data was last revised on 2017 Protein, ur ql Trace Negative [facility] (CHAO) Glucose, ur ql Negative Negative [facility] (CHAO) Ketones, ur Negative Negative [facility] (CHAO) Bilirubin, ur Negative Negative [facility] (CHAO) Blood, ur Trace(A) Negative [facility] (CHAO) Urobilinogen, ur <2.0 <2.0 mg/dL [facility] (CHAO) Nitrite, ur Negative Negative [facility] (CHAO) Leukocyte esterase, ur 2+(A) Negative [facility] (CHAO) UA reflex comment Reflex to microscopic UA will be performed. [facility] (CHAO) Urine 01/06/2025 12:4 0 AM CDT 01/06/2025 12:58 AM CDT Jose Sullivan MD LAB MICROBIOLOGY - GENERAL OR DERABLES Final Result [facility] (CHAO) 1 [facility] [place] [address] * (ABNORMAL) Drugs of Abuse Screen, Urine without Confirmation (01/06/2025 12:40 AM CDT) Amphetamine, ur Not Detected CutOff [...] Barbiturates, ur Not Detected CutOff 200ng/mL [facility] (CHAO) Comment: Interpretive Data - Barbiturates: Samples containing greater than 200 ng/mL secobarbital or other cross-reacting barbiturate compounds are reported as positive. False positive and false negative results are possible. Confirmatory testing required for definitive results. Current Interpretive Data was last reviewed 2023. Benzodiazepines, ur Not Detected CutOff 100ng/mL [facility] (CHAO) Comment: Interpretive Data - Benzodiazepines: Samples containing greater than 100 ng/mL nordiazepam or other cross-reacting compounds are reported as positive. False positive and false negative results are possible. Confirmatory testing required for definitive results. Current Interpretive Data was last reviewed 2023. Cannabinoids, ur Screen Positive, presumptive (A) CutOff 50 ng/mL [facility] (CHAO) Comment: Interpretive Data - Cannabinoids: Samples containing greater than 50 ng/mL delta-9 THC -COOH or other cross- reacting compounds are reported as positive. False positive and false negative results are possible. Confirmatory testing required for definitive results. Current Interpretive Data was last reviewed 2023. Cocaine, ur Not Detected CutOff 150ng/mL [facility] (CHAO) Comment: Interpretive Data - Cocaine: Samples containing greater than 150 ng/mL benzoylecgonine or other cross- reacting compounds are reported as positive. False positive and false negative results are possible. Confirmatory testing required for definitive results. Current Interpretive Data was last reviewed 2023. Fentanyl, Ur Not Detected CutOff 5 ng/mL [facility] (CHAO) Comment: Interpretive Data - Fentanyl: Samples containing greater than 5 ng/mL norfentanyl, fentanyl, or other cross-reacting fentanyl compounds are reported as positive. False positive and false negative results are possible. Confirmatory testing required for definitive results. Current Interpretive Data was last reviewed 2023. Methadone, ur Not Detected CutOff 300ng/mL [facility] (CHAO) Comment: Interpretive Data - Methadone: Samples containing greater than 300 ng/mL d,l-methadone or other cross-reacting compounds are reported as positive. False positive and false negative results are possible. Confirmatory testing required for definitive results. Current Interpretive Data was last reviewed 2023. Opiates, ur Not Detected CutOff 300ng/mL [facility]OL[facility] (CHAO) Comment: Interpretive Data - Opiates: Samples containing greater than 300 ng/mL morphine or other cross-reacting compounds are reported as positive. False positive and false negative results are possible. Confirmatory testing required for definitive results. Current Interpretive Data was last reviewed 2023. Oxycodone, ur Not Detected CutOff 100ng/mL [facility] (CHAO) Comment: Interpretive Data - Oxycodone: Samples containing greater than 100 ng/mL oxycodone or other cross-reacting compounds are reported as positive. False positive and false negative results are possible. Confirmatory testing required for definitive results. Current Interpretive Data was last reviewed 2023. Phencyclidine, ur Not Detected CutOff 25 ng/mL [facility] (CHAO) Comment: Interpretive Data - Phencyclidine: Samples containing greater than 25 ng/mL phencyclidine or other cross-reacting compounds are reported as positive. False positive and false negative results are possible. Confirmatory testing required for definitive results. Current Interpretive Data was last reviewed 2023. Urine Creatinine 365 mg/dL LEON ARREOL[facility] (CHAO) Comment: Interpretive Data Urine Creatinine: < 10 mg/dL is extremely dilute = or > 10 but < 20 mg/dL is dilute = or > 20 mg/dL is normal Current Interpretive Data was last revised on 2017. Urine 01/06/2025 12:4 0 AM CDT 01/06/2025 12:58 AM CDT Narrative [facility] (CHAO) - 01/06/2025 1:24 AM CDT Drug of Abuse screening is performed by immunoassay for medical purposes only. This is not to be used for Pain Management purposes. us Jose Sullivan MD LAB URINE ORDERABLES Final Re sult [facility] (CHAO) 1 [facility] [place] [address] * (ABNORMAL) Urinalysis, microscopic only (01/06/2025 12:40 AM CDT) WBC, ur 11-20(A) 0 - 5 /HPF RBC, ur 6-10(A) 0 - 2 /HPF [facility] (CHAO) Epithelial cells, squamous, ur 1-5 0 - 5 /HPF [facility] (CHAO) Mucous, ur Present(A) [facility] Mix (CHAO) Hyaline casts, ur 1-5 0 - 10 /LPF [facility] (CHAO) Culture Reflex Comment Reflex to urine culture will be performed. [facility] (CHAO) Urine 01/06/2025 12:4 0 AM CDT 01/06/2025 12:58 AM CDT us Jose Sullivan MD LAB URINE ORDERABLES Final Re sult Performing Organization Address [facility] Co de Phone Number [facility] (SULTAN) [address] [place] [address] [place] [address] * Urine culture Urine (01/06/2025 12:40 AM CDT) Report Final Report: Less than 100,000 colonies/mL (clinically insignificant growth based on current clinical standards) Comment:Testing performed by : , 1 [place]., [address] Organism (CLINICALLY INSIGNIFICANT GROWTH [facility] (SULTAN) Urine 01/06/2025 12:4 0 AM CDT 01/06/2025 6:07 AM CDT Narrative [facility] (CHAO) - 01/07/2025 12:32 PM CDT Urine culture reflexed based upon urinalysis results. Testing performed by Microbiology Laboratory ([phone]) us Jose Sullivan MD LAB MICROBIOLOGY - GENERAL OR DERABLES Final Result Performing Organization Address [facility]/ZIP Co de Phone Number [facility] (SULTAN) [address] [place] [address] [place] [address] * COVID-19 Coronavirus RNA Nasopharyngeal (01/06/2025 12:32 AM CDT) COVID-19 RNA Negative Negative Nasopharyngeal 01/06/2025 12 :32 AM CDT 01/06/2025 12:47 AM CDT Narrative [facility] (CHAO) - 01/06/2025 1:25 AM CDT Is the patient experiencing any symptoms consistent with COVID (eg. Fever, cough, shortness of breath)?->No What is the reason for testing?->Screening for semi-private room placement Interpretive data: Testing performed by [facility]. This test is performed using the [employer] Xpert Xpress CoV-2 plus assay. This is a real-time RT-PCR test intended for the qualitative detection of nucleic acid from the SARS-CoV-2. This assay has been cleared by the [place] Food and Drug administration. The performance characteristics have been verified by [facility]. Results must be considered in the clinical context, and a negative result does not rule out infection. Interpretive data last revised 2024. Interpretive data: Testing performed by [facility]. This test is performed using the [employer] Xpert Xpress CoV-2 plus assay. This is a real-time RT-PCR test intended for the qualitative detection of nucleic acid from the SARS-CoV-2. This assay has been cleared by the [place] Food and Drug administration. The performance characteristics have been verified by [facility]. Results must be considered in the clinical context, and a negative result does not rule out infection. Interpretive data last revised 2024. Jose Sullivan MD LAB MICROBIOLOGY - GENERAL OR DERABLES Final Result [facility] (SULTAN) 1 [facility] Department [place] [address] * eGFR (01/06/2025 12:32 AM CDT) eGFR 89 >=60 mL/min/1. 73 m2 Comment: Interpretive Data [...] interpretive data was last reviewed 2021. Blood 01/06/2025 12:3 2 AM CDT 01/06/2025 12:47 AM CDT us Jose Sullivan MD LAB BLOOD ORDERABLES Final Re sult [facility] ([facility] [address] [place] [address] Department [place] [address] * Differential, auto (01/06/2025 12:32 AM CDT) Neutrophil abs 5.57 1.50 - 6.50 K/cumm Imm gran abs 0.04 0.00 - 0.10 K/cumm [facility] (CHAO) Lymphocyte abs 1.68 0.80 - 3.30 K/cumm [facility] (CHAO) Monocyte abs 0.41 0.20 - 0.80 K/cumm [facility] (CHAO) Eosinophil abs 0.13 0.00 - 0.50 K/cumm [facility] (CHAO) Basophil abs 0.03 0.00 - 0.10 K/cumm [facility] (CHAO) Neutrophil pct 70.8 % [facility] (CHAO) Comment: Interpretive Data Percent cell count reference ranges are not reported, since discordance with absolute values may lead to misinterpretation of CBC data. Current Interpretive Data was last revised on 2017. Imm gran pct 0.5 % [facility] ([facility]ULTAN) Comment: Interpretive Data Percent cell count reference ranges are not reported, since discordance with absolute values may lead to misinterpretation of CBC data. Current Interpretive Data was last revised on 2017. Lymphocyte pct 21.4 % [facility] (CHAO) Comment: Interpretive Data Percent cell count reference ranges are not reported, since discordance with absolute values may lead to misinterpretation of CBC data. Current Interpretive Data was last revised on 2017. Monocyte pct 5.2 % [facility] (CHAO) Comment: Interpretive Data Percent cell count reference ranges are not reported, since discordance with absolute values may lead to misinterpretation of CBC data. Current Interpretive Data was last revised on 2017. Eosinophil pct 1.7 % [facility] (CHAO) Comment: Interpretive Data Percent cell count reference ranges are not reported, since discordance with absolute values may lead to misinterpretation of CBC data. Current Interpretive Data was last revised on 2017. Basophil pct 0.4 % [facility] (CHAO) Comment: Interpretive Data Percent cell count reference ranges are not reported, since discordance with absolute values may lead to misinterpretation of CBC data. Current Interpretive Data was last revised on 2017. Blood 01/06/2025 12:3 2 AM CDT 01/06/2025 12:47 AM CDT us Jose Sullivan MD LAB BLOOD ORDERABLES Final Re sult Performing Organization Address City/[facility]/ZIP Co de Phone Number [facility]A [facility]OL[facility] (SULTAN) 1 [facility] [place] [address] * Thyroid Function [place] (01/06/2025 12:32 AM CDT) TSH 1.00 0.30 - 4.20 mcIUnit/mL Blood 01/06/2025 12:3 2 AM CDT 01/06/2025 12:47 AM CDT Jose Sullivan MD LAB BLOOD ORDERABLES Final Re sult [facility] (SULTAN) 1 [facility] [place] [address] * CBC with auto differential (01/06/2025 12:32 AM CDT) WBC 7.86 3.80 - 9.90 K/cumm Hgb 13.4 13.0 - 17.5 g/dL [facility] (CHAO) Hct 41.2 38.9 - 50.3 % [facility] (CHAO) Plt 259 150 - 400 K/cumm [facility] (CHAO) MPV 10.2 9.1 - 12.3 fL [facility] ([facility]) RBC 4.65 4.30 - 5.80 M/cumm [facility] (CHAO) MCV 88.6 81.3 - 96.4 fL [facility] (CHAO) MCH 28.8 27.1 - 33.3 pg [facility] (CHAO) MCHC 32.5 32.3 - 35.7 g/dL [facility] (CHAO) RDW CV 13.5 11.1 - 14.9 % [facility] (CHAO) RDW SD 43.3 35.7 - 48.1 fL [facility] ([facility]) NRBC abs 0.00 0.00 - 0.01 K/cumm [facility] (CHAO) Blood Venous blood specimen / Unknown 01/06/2025 12:32 AM CDT 01/06/2025 12:47 AM CDT us Jose Sullivan MD LAB BLOOD ORDERABLES Final Re sult [facility] (CHAO) 1 [facility] Department [place] [address] * Ethanol (01/06/2025 12:32 AM CDT) Ethanol <10 <=10 mg/dL Comment: Interpretive Data Legal limit of intoxication > or = 80 mg/dL Levels > or = 400 mg/dL are potentially TOXIC. Current interpretive data was last revised on 2018. Blood 01/06/2025 12:3 2 AM CDT 01/06/2025 12:47 AM CDT us Jose Sullivan MD LAB BLOOD ORDERABLES Final Re sult PRISCILLA PAULSON) 1 [facility] [place] [address] * (ABNORMAL) Comprehensive metabolic panel (01/06/2025 12:32 AM CDT) Sodium 135 135 - 145 mmol/L Potassium, pl 4.7 3.3 - 4.9 mmol/L [facility] (CHAO) Comment:Moderately Hemolyzed Specimen. Results may be affected. Chloride 101 97 - 110 mmol/L [facility] (CHAO) CO2 21(L) 22 - 32 mmol/L [facility] (CHAO) Anion gap 13 2 - 15 mmol/L [facility] (CHAO) BUN 13 6 - 25 mg/dL [facility] (CHAO) Creatinine 1.12 0.80 - 1.30 mg/dL [facility] (CHAO) Glucose 167 70 - 199 mg/dL [facility] (CHAO) Comment: Interpretive Data Fasting glucose >/= 126 [...] interpretive data was last revised 2022. Calcium 8.9 8.5 - 10.3 mg/dL [facility] (CHAO) Bilirubin, total 0.2 0.1 - 1.2 mg/dL [facility] (CHAO) Protein, pl 7.4 6.5 - 8.5 g/dL [facility] (CHAO) Albumin 4.1 3.5 - 5.0 g/dL [facility] (CHAO) Alk phos 63 40 - 130 Units/L [facility] (CHAO) ALT 33 7 - 55 Units/L [facility] (CHAO) Comment: Hemolysis present. Results may be affected. Moderately Hemolyzed Specimen AST 34 10 - 50 Units/L [facility] (CHAO) Comment: Hemolysis present. Results may be affected. Moderately Hemolyzed Specimen Blood 01/06/2025 12:3 2 AM CDT 01/06/2025 12:47 AM CDT us Jose Sullivan MD LAB BLOOD ORDERABLES Final Re sult [facility] (SULTAN) 1 [facility] [place] [address] * eGFR (01/01/2025 10:28 PM CDT) eGFR 79 >=60 mL/min/1. 73 m2 Comment: Interpretive Data [...] interpretive data was last reviewed 2021. Blood 01/01/2025 10:2 8 PM CDT 01/01/2025 10:34 PM CDT us Irina Yeager MD LAB BLOOD ORDERABLES Final R esult Performing Organization Address City/[facility]/ZIP Co de Phone Number [facility] [place] [address] * (ABNORMAL) Differential, auto (01/01/2025 10:28 PM CDT) Neutrophil abs 4.69 1.50 - 6.50 K/cumm Imm gran abs 0.02 0.00 - 0.10 K/cumm [facility] Lymphocyte abs 1.78 0.80 - 3.30 K/cumm [facility] Monocyte abs 0.87(H) 0.20 - 0.80 K/cumm [facility] Eosinophil abs 0.17 0.00 - 0.50 K/cumm [facility] Basophil abs 0.03 0.00 - 0.10 K/cumm [facility] Neutrophil pct 62.1 % [facility] Comment: Interpretive Data Percent cell count reference ranges are not reported, since discordance with absolute values may lead to misinterpretation of CBC data. Current Interpretive Data was last revised on 2017. Imm gran pct 0.3 % [facility] Comment: Interpretive Data Percent cell count reference ranges are not reported, since discordance with absolute values may lead to misinterpretation of CBC data. Current Interpretive Data was last revised on 2017. Lymphocyte pct 23.5 % [facility] Comment: Interpretive Data Percent cell count reference ranges are not reported, since discordance with absolute values may lead to misinterpretation of CBC data. Current Interpretive Data was last revised on 2017. Monocyte pct 11.5 % [facility] Comment: Interpretive Data Percent cell count reference ranges are not reported, since discordance with absolute values may lead to misinterpretation of CBC data. Current Interpretive Data was last revised on 2017. Eosinophil pct 2.2 % [facility] Comment: Interpretive Data Percent cell count reference ranges are not reported, since discordance with absolute values may lead to misinterpretation of CBC data. Current Interpretive Data was last revised on 2017. Basophil pct 0.4 % [facility] Comment: Interpretive Data Percent cell count reference ranges are not reported, since discordance with absolute values may lead to misinterpretation of CBC data. Current Interpretive Data was last revised on 2017. Blood 01/01/2025 10:2 8 PM CDT 01/01/2025 10:35 PM CDT Irina Yeager MD LAB BLOOD ORDERABLES Final R esult Performing Organization Address City/[facility]/ZIP Co de Phone Number [facility] [place] [address] * (ABNORMAL) Urinalysis reflex to microscopic (01/01/2025 10:28 PM CDT) Color, ur Yellow Yellow Clarity, ur Clear Clear [facility] Specific gravity, ur 1.027 1.003 - 1.030 [facility] pH, urine 6.0 [facility] Comment: Interpretive Data U rine pH is affected by diet, medications, systemic acid-base disturbances, and renal tubular function. pH may affect urinary stone formation. For example, urine pH below 6.0 may help reduce the tendency for calcium phosphate stones and pH greater than 6.0 may reduce the tendency for uric acid stone formation. Source: [facility] Current Interpretive Data was last revised on 2017 Protein, ur ql 1+(A) Negative [facility] Glucose, ur ql Negative Negative [facility] Ketones, ur Negative Negative [facility] Bilirubin, ur Negative Negative [facility] Blood, ur 2+(A) Negative [facility] Urobilinogen, ur <2.0 <2.0 mg/dL [facility] Nitrite, ur Negative Negative [facility] Leukocyte esterase, ur Negative Negative [facility] UA reflex comment Reflex to microscopic UA will be performed. [facility] Urine 01/01/2025 10:2 8 PM CDT 01/01/2025 10:33 PM CDT Irina Yeager MD LAB URINE ORDERABLES Final R esult Performing Organization Address City/[facility]/ZIP Co de Phone Number [facility] [place] [address] * CBC with auto differential (01/01/2025 10:28 PM CDT) WBC 7.56 3.80 - 9.90 K/cumm Hgb 14.8 13.0 - 17.5 g/dL [facility] Hct 45.4 38.9 - 50.3 % [facility] Plt 308 150 - 400 K/cumm [facility] MPV 10.1 9.1 - 12.3 fL [facility] RBC 5.26 4.30 - 5.80 M/cumm [facility] MCV 86.3 81.3 - 96.4 fL [facility] MCH 28.1 27.1 - 33.3 pg [facility] MCHC 32.6 32.3 - 35.7 g/dL [facility] RDW CV 13.4 11.1 - 14.9 % [facility] RDW SD 42.3 35.7 - 48.1 fL [facility] NRBC abs 0.00 0.00 - 0.01 K/cumm [facility] Blood Venous blood specimen / Unknown 01/01/2025 10:28 PM CDT 01/01/2025 10:35 PM CDT Irina Yeager MD LAB BLOOD ORDERABLES Final R esult Performing Organization Address City/[facility]/ZIP Co de Phone Number [facility] [place] [employer] [place] [address] * (ABNORMAL) Urinalysis, microscopic only (01/01/2025 10:28 PM CDT) WBC, ur 0-5 0 - 5 /HPF RBC, ur >50(A) 0 - 2 /HPF [facility] Mucous, ur Present(A) [facility] Urine 01/01/2025 10:2 8 PM CDT 01/01/2025 10:33 PM CDT Irina Yeager MD LAB URINE ORDERABLES Final R esult [facility] [place] [address] * Lipase (01/01/2025 10:28 PM CDT) Lipase 26 10 - 99 Units/L Blood Venous blood specimen / Unknown 01/01/2025 10:28 PM CDT 01/01/2025 10:34 PM CDT Irina Yeager MD LAB BLOOD ORDERABLES Final R esult Performing Organization Address City/[facility] Co de Phone Number [facility] Department [place] [address] * (ABNORMAL) Creatine kinase (CK), total (01/01/2025 10:28 PM CDT) Pathologist [facility] CK 632(H) 40 - 300 Units/L Blood 01/01/2025 10:2 8 PM CDT 01/01/2025 10:34 PM CDT Irina Yeager MD LAB BLOOD ORDERABLES Final R esult Performing Organization Address [facility] de Phone Number [facility] Department [place] [address] * Acetaminophen level (01/01/2025 10:28 PM CDT) Pathologist [facility] Acetaminophen <5 <=5 mcg/mL Comment: Interpretive Data Significant hepatic injury may occur and treatment with n-acetyl cysteine is generally recommended if the acetaminophen level exceeds: 150 mcg/mL at 4 hours after ingestion 75 mcg/mL at 8 hours after ingestion 38 mcg/mL at 12 hours after ingestion 19 mcg/mL at 16 hours after ingestion Consult toxicology or poison control ([phone]) for unknown ingestion time. Current interpretive data was last revised 2023. Blood 01/01/2025 10:2 8 PM CDT 01/01/2025 10:34 PM CDT Maye Pradhan NP LAB BLOOD ORDERABLES Final Result Performing Organization Address [facility]/ZIP Co de Phone Number [facility] Department [place] [address] * Salicylate level (01/01/2025 10:28 PM CDT) Pathologist [facility] Salicylate <9.0 <=9.0 mg/dL Comment: Interpretive Data Toxic: 30 mg/dL or greater. Current interpretive data was last revised 2023. Blood 01/01/2025 10:2 8 PM CDT 01/01/2025 10:34 PM CDT Maye Pradhan PHARM SPEC LAB BLOOD ORDERABLES Final Result Performing Organization Address [facility] [place] [address] * (ABNORMAL) Valproic acid level, total (01/01/2025 10:28 PM CDT) [facility] Valproic Acid <15.0(L) 50.0 - 100.0 mcg/mL Comment: Interpretive Data Therapeutic or toxic effects of anticonvulsant drugs may occur at different concentrations in different patients and the correlation between dose and clinical effect must be evaluated individually. Current interpretative data was last revised on 13. Blood 01/01/2025 10:2 8 PM CDT 01/01/2025 10:34 PM CDT Maye Pradhan PHARM SPEC LAB BLOOD ORDERABLES Final Result Performing Organization Address City/[facility] Co de Phone Number [facility] [place] [address] * Comprehensive metabolic panel (01/01/2025 10:28 PM CDT) Pathologist [facility] Sodium 141 135 - 145 mmol/L Potassium, pl 4.0 3.3 - 4.9 mmol/L [facility] Comment:Hemolyzed; Potassium value may be falsely elevated by as much as 0.3-0.5 mmol/L. Suggest redraw and reanalysis. Chloride 105 97 - 110 mmol/L [facility] CO2 26 22 - 32 mmol/L [facility] Anion gap 10 2 - 15 mmol/L [facility] BUN 10 6 - 25 mg/dL [facility] Creatinine 1.24 0.80 - 1.30 mg/dL [facility] Glucose 123 70 - 199 mg/dL [facility] Comment: Interpretive Data Fasting glucose [...] interpretive data was last revised 2022. Calcium 9.8 8.5 - 10.3 mg/dL [facility] Bilirubin, total 0.2 0.1 - 1.2 mg/dL [facility] Protein, pl 8.1 6.5 - 8.5 g/dL [facility] Albumin 4.3 3.5 - 5.0 g/dL [facility] Alk phos 78 40 - 130 Units/L [facility] ALT 40 7 - 55 Units/L [facility] AST 47 10 - 50 Units/L [facility] Comment:Hemolyzed; result ma y be falsely elevated Blood 01/01/2025 10:2 8 PM CDT 01/01/2025 10:34 PM CDT Irina Yeager MD LAB BLOOD ORDERABLES Final R esult [facility] [place] [address] * [place] screen w/rflx FLIP+dsDNA (12/30/2024 11:56 AM CDT) [place] Negative Comment: Interpretive Data Normal range for [place] Qualitative Antibody = Negative. 1. ANUSKHA is performed using indirect immunofluorescence against HEp-2 cells 2. ANUSHKA titers are performed on all positive qualitative results. 3. A significantly positive ANUSHKA result is defined as a positive nuclear fluorescence at a titer of 1:80 or greater. 4. 15% of normal people above age 65 have significantly positive ANUSHKA results. 5% or less of normal people age 65 or under have significantly positive ANUSHKA results. Current interpretive data was last revised on 2020. Testing performed by: , [address] [place]., [address] Blood 12/30/2024 11:5 6 AM CDT 12/30/2024 3:00 PM CDT us Navarro Zuleta Jr., MD LAB BLOOD ORDERABLE S Final Result Performing Organization Address [facility] Co de Phone Number [facility] (SULTAN) [address] [place] [address] [place] [address] * HIV 1/2 Antibody plus p24 Antigen Blood (12/30/2024 11:56 AM CDT) HIV 1/2 ab + p24 ag Nonreactive Nonreactive Comment: Nonreactive for HIV-1 antigen and HIV-1/HIV-2 antibodies. No laboratory evidence of HIV infection. If acute HIV infection is suspected, consider testing for HIV-1 RNA. Testing performed by: [address] [address] Blood 12/30/2024 11:5 6 AM CDT 12/30/2024 1:50 PM CDT us Navarro Zuleta Jr., MD LAB MICROBIOLOGY - GENERAL ORDERABLES Final Result [facility] ([place]) [address] [place] [address] [place] [address] * RPR Blood (12/30/2024 11:56 AM CDT) RPR Nonreactive Nonreactive Comment:Testing performed by : [address] [place]., [address] Blood 12/30/2024 11:5 6 AM CDT 12/30/2024 1:50 PM CDT us Navarro Zuleta Jr., MD LAB MICROBIOLOGY - GENERAL ORDERABLES Final Result Performing Organization Address [facility] Co de Phone Number [facility] (SULTAN) [address] [facility] [place] [address] * Troponin T high-sensitivity 6-hour (12/30/2024 5:09 AM CDT) Trop T hs 20 <=22 ng/L Comment: Interpretive Data For further hscTnT resources including the diagnostic algorithm and an aid in interpretation, copy and paste this link: https://nrl.testcatalog.org/show/hsTrop Current Interpretive Data last revised 2020. Trop T hs delta -9 ng/L [facility] (CHAO) Trop T hs interp Equivocal [facility] (CHAO) Blood 12/30/2024 5:09 AM CDT 12/30/2024 5:12 AM CDT us Larissa Medellin MD LAB BLOOD ORDERABLES Vickie l Result Performing Organization Address [facility] Co de Phone Number [facility] (SULTAN) [address] [place] [address] * eGFR (12/30/2024 5:09 AM CDT) eGFR >90 >=60 mL/min/1. 73 m2 Comment: [...] interpretive data was last reviewed 2021. Blood 12/30/2024 5:09 AM CDT 12/30/2024 5:12 AM CDT us Kelly Knight DO LAB BLOOD ORDERABLES Fin al Result [facility] (SULTAN) 1 [facility] [place] [address] * (ABNORMAL) Differential, auto (12/30/2024 5:09 AM CDT) Neutrophil abs 3.85 1.50 - 6.50 K/cumm Imm gran abs 0.03 0.00 - 0.10 K/cumm [facility] ([facility]) Lymphocyte abs 1.68 0.80 - 3.30 K/cumm [facility] ([facility]) Monocyte abs 0.94(H) 0.20 - 0.80 K/cumm [facility] ([facility]) Eosinophil abs 0.14 0.00 - 0.50 K/cumm [facility] ([facility]) Basophil abs 0.02 0.00 - 0.10 K/cumm [facility] ([facility]) Neutrophil pct 57.8 % [facility] ([facility]) Comment: Interpretive Data Percent cell count reference ranges are not reported, since discordance with absolute values may lead to misinterpretation of CBC data. Current Interpretive Data was last revised on 2017. Imm gran pct 0.5 % [facility] ([facility]) Comment: Interpretive Data Percent cell count reference ranges are not reported, since discordance with absolute values may lead to misinterpretation of CBC data. Current Interpretive Data was last revised on 2017. Lymphocyte pct 25.2 % [facility] ([facility]) Comment: Interpretive Data Percent cell count reference ranges are not reported, since discordance with absolute values may lead to misinterpretation of CBC data. Current Interpretive Data was last revised on 2017. Monocyte pct 14.1 % [facility] ([place]) Comment: Interpretive Data Percent cell count reference ranges are not reported, since discordance with absolute values may lead to misinterpretation of CBC data. Current Interpretive Data was last revised on 2017. Eosinophil pct 2.1 % [facility] ([facility]) Comment: Interpretive Data Percent cell count reference ranges are not reported, since discordance with absolute values may lead to misinterpretation of CBC data. Current Interpretive Data was last revised on 2017. Basophil pct 0.3 % [facility] ([facility]) Comment: Interpretive Data Percent cell count reference ranges are not reported, since discordance with absolute values may lead to misinterpretation of CBC data. Current Interpretive Data was last revised on 2017. Blood 12/30/2024 5:09 AM CDT 12/30/2024 5:12 AM CDT us Kelly Knight DO LAB BLOOD ORDERABLES Fin al Result [facility] ([place]) 1 [facility] Department of Laboratories [place], [place] [id number] * (ABNORMAL) CBC with auto differential (12/30/2024 5:09 AM CDT) WBC 6.66 3.80 - 9.90 K/cumm Hgb 13.3 13.0 - 17.5 g/dL [facility] ([facility]) Hct 43.0 38.9 - 50.3 % [facility] ([facility]) Plt 209 150 - 400 K/cumm [facility] ([facility]) MPV 10.2 9.1 - 12.3 fL [facility] ([facility]) RBC 4.71 4.30 - 5.80 M/cumm [facility] ([facility]) MCV 91.3 81.3 - 96.4 fL [facility] ([facility]) MCH 28.2 27.1 - 33.3 pg [facility] ([facility]) MCHC 30.9(L) 32.3 - 35.7 g/dL [facility] ([facility]) RDW CV 13.5 11.1 - 14.9 % [facility] ([facility]) RDW SD 45.9 35.7 - 48.1 fL [facility] ([facility]) NRBC abs 0.00 0.00 - 0.01 K/cumm [facility] ([facility]) Blood 12/30/2024 5:09 AM CDT 12/30/2024 5:12 AM CDT Kelly Knight DO LAB BLOOD ORDERABLES Fin al Result [facility] (SULTAN) [address] [facility] [place] [address] * Phosphorus (12/30/2024 5:09 AM CDT) Phosphorus, pl 3.8 2.3 - 4.5 mg/dL Blood 12/30/2024 5:09 AM CDT 12/30/2024 5:12 AM CDT Kelly Knight DO LAB BLOOD ORDERABLES Fin al Result Performing Organization Address City/[facility]/ZIP Co de Phone Number [facility] (SULTAN) 1 [facility] [place] [address] * Magnesium (12/30/2024 5:09 AM CDT) Magnesium 1.8 1.4 - 2.5 mg/dL Blood 12/30/2024 5:09 AM CDT 12/30/2024 5:12 AM CDT Kelly CamarenaHumacyte DO LAB BLOOD ORDERABLES Fin al Result [facility] (S[place]AN) [address] [facility] [place] [address] * Comprehensive metabolic panel (12/30/2024 5:09 AM CDT) Sodium 137 135 - 145 mmol/L Potassium, pl 4.8 3.3 - 4.9 mmol/L [facility] ([facility]) Comment:Slightly Hemolyzed S pecimen. Results may be affected. Chloride 105 97 - 110 mmol/L [facility] ([facility]) CO2 22 22 - 32 mmol/L [facility] ([facility]) Anion gap 10 2 - 15 mmol/L [facility] ([facility]) BUN 7 6 - 25 mg/dL [facility] ([facility]) Creatinine 1.00 0.80 - 1.30 mg/dL [facility] ([facility]) Glucose 118 70 - 199 mg/dL [facility] ([facility]) Comment: Interpretive Data Fasting glucose >/= 126 [...] interpretive data was last revised 2022. Calcium 8.7 8.5 - 10.3 mg/dL [facility] ([facility]) Bilirubin, total <0.2 0.1 - 1.2 mg/dL [facility] ([place]) Protein, pl 6.6 6.5 - 8.5 g/dL [facility] ([facility]) Albumin 3.6 3.5 - 5.0 g/dL [facility] ([facility]) Alk phos 68 40 - 130 Units/L [facility] ([facility]) ALT 18 7 - 55 Units/L [facility] ([facility]) Comment:Hemolysis present. R esults may be affected. AST 26 10 - 50 Units/L [facility] ([facility]) Comment: Hemolysis present. Results may be affected. Slightly Hemolyzed Specimen Blood 12/30/2024 5:09 AM CDT 12/30/2024 5:12 AM CDT Kelly Knight DO LAB BLOOD ORDERABLES Fin al Result [facility] (SULTAN) 1 [facility] [place] [address] * Erythrocyte sedimentation rate (12/30/2024 5:07 AM CDT) Pathologist [facility] Erythrocyte sedimentation rate 11 1 - 15 mm/hr Blood 12/30/2024 5:07 AM CDT 12/30/2024 6:46 AM CDT us Navarro Zuleta Jr., MD LAB BLOOD ORDERABLE S Final Result Performing Organization Address [facility] Co de Phone Number [facility] (SULTAN) [address] [place] [address] * CRP (acute phase) (12/30/2024 5:07 AM CDT) [facility] CRP <3.0 <=10.0 mg/L Blood 12/30/2024 5:07 AM CDT 12/30/2024 6:48 AM CDT us Navarro Zuleta Jr., MD LAB BLOOD ORDERABLE S Final Result Performing Organization Address [facility] de Phone Number [facility] (SULTAN) 1 [facility] [place] [address] * (ABNORMAL) Troponin T high-sensitivity 2-hour (12/30/2024 12:43 AM CDT) Pathologist [facility] Trop T hs 26(H) <=22 ng/L Comment: Interpretive Data For further hscTnT resources including the diagnostic algorithm and an aid in interpretation, copy and paste this link: https://nrl.testcatalog.org/show/hsTrop Current Interpretive Data last revised 2020. Trop T hs delta -3 ng/L [facility] ([facility]) Trop T hs interp Insignificant [facility] ([facility]) Blood 12/30/2024 12:4 3 AM CDT 12/30/2024 12:45 AM CDT Larissa Medellin MD LAB BLOOD ORDERABLES Vickie l Result Performing Organization Address [facility] Co de Phone Number [facility] (SULTAN) 1 [facility] [place] [place] [address] * Lipase (12/30/2024 12:43 AM CDT) Lipase 25 10 - 99 Units/L Blood 12/30/2024 12:4 3 AM CDT 12/30/2024 1:46 AM CDT Kelly Knight DO LAB BLOOD ORDERABLES Fin al Result Performing Organization Address [facility] de Phone Number [facility] (SULTAN) [address] [place] [address] * ECG 12 lead (12/30/2024 12:32 AM CDT) 12/30/2024 12:3 2 AM CDT Narrative [facility] - 12/30/2024 7:25 AM CDT Vent Rate: 104 bpm RR Interval: 575 msec MO Interval: 159 msec QRS Duration: 109 msec QT Interval: 330 msec QTC Interval: 390 msec P-R-T Carville: 56 - 85 - -50 degrees IMPRESSION: SINUS TACHYCARDIA LEFT VENTRICULAR HYPERTROPHY AND ST-T CHANGE [VOLTAGE CRITERIA PLUS ST/T ABNORMALITY] ST ELEVATION, CONSIDER ANTERIOR INJURY [MARKED ST ELEVATION W/O NORMALLY INFLECTED T-WAVE IN V2-V5] ACUTE FL NO CHANGE FROM PREVIOUS TRACING NOTED Electronically Signed By: Skyler Waite MD Jose Sullivan MD ECG ORDERABLES Final Result Performing Organization Address [facility] Co de Phone Number [facility] [employer] [facility] * Urinalysis reflex to microscopic and culture Urine, bladder (12/30/2024 12:06 AM CDT) Color, ur Yellow Yellow Clarity, ur Clear Clear C[facility] Dominguez (SULTAN) Specific gravity, ur 1.020 1.003 - 1.030 [facility] ([facility]) pH, urine 7.5 [facility] ([facility]) Comment: Interpretive Data U rine pH is affected by diet, medications, systemic acid-base disturbances, and renal tubular function. pH may affect urinary stone formation. For example, urine pH below 6.0 may help reduce the tendency for calcium phosphate stones and pH greater than 6.0 may reduce the tendency for uric acid stone formation. Source: [facility] Current Interpretive Data was last revised on 2017 Protein, ur ql Negative Negative [facility] ([facility]) Glucose, ur ql Negative Negative [facility] ([facility]) Ketones, ur Negative Negative [facility] ([facility]) Bilirubin, ur Negative Negative [facility] ([place]) Blood, ur Negative Negative [facility] ([place]) Urobilinogen, ur <2.0 <2.0 mg/dL [facility] ([facility]) Nitrite, ur Negative Negative [facility] ([facility]) Leukocyte esterase, ur Negative Negative [facility] ([facility]) UA reflex comment Reflex conditions for microscopic UA and culture not met. [facility] ([place]) Urine, bladder 12/30/2024 12 :06 AM CDT 12/30/2024 12:11 AM CDT Jose Sullivan MD LAB MICROBIOLOGY - GENERAL OR DERABLES Final Result [facility] (SULTAN) 1 [facility] [place] [address] * (ABNORMAL) Drugs of Abuse Screen, Urine without Confirmation (12/30/2024 12:06 AM CDT) Amphetamine, ur Not Detected CutOff [...] Barbiturates, ur Not Detected CutOff 200ng/mL [facility] ([facility]) Comment: Interpretive Data - Barbiturates: Samples containing greater than 200 ng/mL secobarbital or other cross-reacting barbiturate compounds are reported as positive. False positive and false negative results are possible. Confirmatory testing required for definitive results. Current Interpretive Data was last reviewed 2023. Benzodiazepines, ur Not Detected CutOff 100ng/mL [facility] ([facility]) Comment: Interpretive Data - Benzodiazepines: Samples containing greater than 100 ng/mL nordiazepam or other cross-reacting compounds are reported as positive. False positive and false negative results are possible. Confirmatory testing required for definitive results. Current Interpretive Data was last reviewed 2023. Cannabinoids, ur Screen Positive, presumptive (A) CutOff 50 ng/mL [facility] ([facility]) Comment: Interpretive Data - Cannabinoids: Samples containing greater than 50 ng/mL delta-9 THC -COOH or other cross- reacting compounds are reported as positive. False positive and false negative results are possible. Confirmatory testing required for definitive results. Current Interpretive Data was last reviewed 2023. Cocaine, ur Not Detected CutOff 150ng/mL [facility] ([facility]) Comment: Interpretive Data - Cocaine: Samples containing greater than 150 ng/mL benzoylecgonine or other cross- reacting compounds are reported as positive. False positive and false negative results are possible. Confirmatory testing required for definitive results. Current Interpretive Data was last reviewed 2023. Fentanyl, Ur Not Detected CutOff 5 ng/mL [facility] ([facility]) Comment: Interpretive Data - Fentanyl: Samples containing greater than 5 ng/mL norfentanyl, fentanyl, or other cross-reacting fentanyl compounds are reported as positive. False positive and false negative results are possible. Confirmatory testing required for definitive results. Current Interpretive Data was last reviewed 2023. Methadone, ur Not Detected CutOff 300ng/mL [facility] (HCAO) Comment: Interpretive Data - Methadone: Samples containing greater than 300 ng/mL d,l-methadone or other cross-reacting compounds are reported as positive. False positive and false negative results are possible. Confirmatory testing required for definitive results. Current Interpretive Data was last reviewed 2023. Opiates, ur Not Detected CutOff 300ng/mL [facility] (CHOA) Comment: Interpretive Data - Opiates: Samples containing greater than 300 ng/mL morphine or other cross-reacting compounds are reported as positive. False positive and false negative results are possible. Confirmatory testing required for definitive results. Current Interpretive Data was last reviewed 2023. Oxycodone, ur Not Detected CutOff 100ng/mL [facility] (CHAO) Comment: Interpretive Data - Oxycodone: Samples containing greater than 100 ng/mL oxycodone or other cross-reacting compounds are reported as positive. False positive and false negative results are possible. Confirmatory testing required for definitive results. Current Interpretive Data was last reviewed 2023. Phencyclidine, ur Not Detected CutOff 25 ng/mL [facility] (CHAO) Comment: Interpretive Data - Phencyclidine: Samples containing greater than 25 ng/mL phencyclidine or other cross-reacting compounds are reported as positive. False positive and false negative results are possible. Confirmatory testing required for definitive results. Current Interpretive Data was last reviewed 2023. Urine Creatinine 155 mg/dL LEON ARREOLA (CHAO) Comment: Interpretive Data Urine Creatinine: < 10 mg/dL is extremely dilute = or > 10 but < 20 mg/dL is dilute = or > 20 mg/dL is normal Current Interpretive Data was last revised on 2017. Urine 12/30/2024 12:0 6 AM CDT 12/30/2024 12:11 AM CDT Narrative [facility] (SULTAN) - 12/30/2024 12:55 AM CDT Drug of Abuse screening is performed by immunoassay for medical purposes only. This is not to be used for Pain Management purposes. us Jose Sullivan MD LAB URINE ORDERABLES Final Re sult [facility] (SULTAN) 1 [facility] Department of [employer] [place], [place] [id number] * ECG 12 lead (12/29/2024 11:58 PM CDT) 12/29/2024 11:5 8 PM CDT Narrative [facility] - 12/30/2024 7:27 AM CDT Vent Rate: 116 bpm RR Interval: 516 msec MO Interval: 163 msec QRS Duration: 106 msec QT Interval: 321 msec QTC Interval: 390 msec P-R-T Carville: 64 - 85 - -64 degrees IMPRESSION: SINUS TACHYCARDIA LEFT VENTRICULAR HYPERTROPHY AND ST-T CHANGE [VOLTAGE CRITERIA PLUS ST/T ABNORMALITY] ST ELEVATION, CONSIDER ANTERIOR INJURY [MARKED ST ELEVATION W/O NORMALLY INFLECTED T-WAVE IN V2-V5] ACUTE FL Compared to prior EKG, heart rate has increased Electronically Signed By: Skyler Waite MD us Jose Sullivan MD ECG ORDERABLES Final Result [employer] * CT Chest PE (CTA) W Contrast (12/29/2024 11:53 PM CDT) Anatomical Region Laterality Modality Body N/A Computed Tomogra phy 12/30/2024 12:1 6 AM CDT Narrative 12/30/2024 12:22 AM CDT EXAM DESCRIPTION: CT CHEST PE (CTA) W CONTRAST REASON FOR STUDY: Pulmonary embolism (PE) suspected, high prob Patient complains of chest pain onset x 1 hour ago. Denies shortness of breath. Denies surgeries to chest. TECHNIQUE: CT angiogram of the chest performed with intravenous contrast using helical scanning technique with dynamic intravenous contrast injection. Reconstructed coronal and sagittal MPR images reviewed. All images stored on PACS. 3D MIP images rendered on scanning unit and reviewed at time of interpretation. Automated exposure control was used as a dose optimization technique for this examination. CONTRAST TYPE/DOSE: 75mL of IOVERSOL 350 MG IODINE/ML INTRAVENOUS SYRINGE injected via intravenous COMPARISON: None FINDINGS: VASCULATURE: No identified pulmonary emboli. LUNGS: On image 32, there is a 4 mm noncalcified nodule in the posterior right upper lobe. PLEURA: No effusion. No pneumothorax. MEDIASTINUM/NICOLETTE: No identified masses or abnormal nodes. HEART: Heart size is normal with no pericardial effusion. AXILLA: No adenopathy. CHEST WALL: No masses. No subcutaneous air. HARDWARE/LINES/TUBES: None. UPPER ABDOMEN: No significant abnormality. MUSCULOSKELETAL: No significant abnormality. OTHER: No significant abnormality. IMPRESSION: No CT evidence for pulmonary embolus. 4 mm noncalcified nodule posterior right upper lobe. Non-contrast chest CT can be considered in 12 months if patient is high-risk. THIS IS AN ELECTRONICALLY VERIFIED FINAL REPORT 12/30/2024 12:22 AM - Electronically signed by Richi Farr M.D., KT: NANNETTE Report ID: [id number] Reading Location: [id number] Procedure Note Richi Farr MD - 12/30/2024 EXAM DESCRIPTION: CT CHEST PE (CTA) W CONTRAST REASON FOR STUDY: Pulmonary embolism (PE) suspected, high prob Patient complains of chest pain onset x 1 hour ago. Denies shortness of breath. Denies surgeries to chest. TECHNIQUE: CT angiogram of the chest performed with intravenous contrastusing helical scanning technique with dynamic intravenous contrast injection. Reconstructed coronal and sagittal MPR images reviewed. All images storedon PACS. 3D MIP images rendered on scanning unit and reviewed at time of interpretation. Automated exposure control was used as a doseoptimization technique for this examination. CONTRAST TYPE/DOSE: 75mL of IOVERSOL 350 MG IODINE/ML INTRAVENOUSSYRINGE injected via intravenous COMPARISON: None FINDINGS: VASCULATURE: No identified pulmonary emboli. LUNGS: On image 32, there is a 4 mm noncalcified nodule in the posterior right upper lobe. PLEURA: No effusion. No pneumothorax. MEDIASTINUM/NICOLETTE: No identified masses or abnormal nodes. HEART: Heart size is normal with no pericardial effusion. AXILLA: No adenopathy. CHEST WALL: No masses. No subcutaneous air. HARDWARE/LINES/TUBES: None. UPPER ABDOMEN: No significant abnormality. MUSCULOSKELETAL: No significant abnormality. OTHER: No significant abnormality. IMPRESSION: No CT evidence for pulmonary embolus. 4 mm noncalcified nodule posterior right upper lobe. Non-contrast chestCT can be considered in 12 months if patient is high-risk. THIS IS AN ELECTRONICALLY VERIFIED FINAL REPORT 12/30/2024 12:22 AM - Electronically signed by Richi Farr M.D. KT: NANNETTE Report ID: [id number] Reading Location: [id number] Jose Sullivan MD IMG CT PROCEDURES Final Resul t * XR Chest 1 Vw Portable (12/29/2024 11:19 PM CDT) Anatomical Region Laterality Modality Body, Chest N/A Computed Radiogr aphy 12/29/2024 11:4 7 PM CDT Narrative 12/29/2024 11:48 PM CDT EXAM DESCRIPTION: XR CHEST 1 VIEW REASON FOR STUDY: chest pain c/o epigastric pain x 30 min hx pericarditis TECHNIQUE: Portable upright AP view of the chest. COMPARISON: 09/19/2024 FINDINGS: LUNGS AND PLEURA: No focal opacity, large effusion, or pneumothorax identified. HEART/MEDIASTINUM: Trachea midline. Cardiac silhouette normal in size. Mediastinal contours appear normal. BONES: Unremarkable. CHEST WALL: Unremarkable. UPPER ABDOMEN: Unremarkable. IMPRESSION: No acute abnormality identified. THIS IS AN ELECTRONICALLY VERIFIED FINAL REPORT 12/29/2024 11:48 PM - Electronically signed by Jaskaran Sam M.D. AR: JOHN PAUL Report ID: [id number] Reading Location: [id number] Procedure Note Jaskaran Sam MD - 12/29/2024 EXAM DESCRIPTION: XR CHEST 1 VIEW REASON FOR STUDY: chest pain c/o epigastric pain x 30 min hx pericarditis TECHNIQUE: Portable upright AP view of the chest. COMPARISON: 09/19/2024 FINDINGS: LUNGS AND PLEURA: No focal opacity, large effusion, or pneumothorax identified. HEART/MEDIASTINUM: Trachea midline. Cardiac silhouette normal in size. Mediastinal contours appear normal. BONES: Unremarkable. CHEST WALL: Unremarkable. UPPER ABDOMEN: Unremarkable. IMPRESSION: No acute abnormality identified. THIS IS AN ELECTRONICALLY VERIFIED FINAL REPORT 12/29/2024 11:48 PM - Electronically signed by Jaskaran Sam M.D. AR: JOHN PAUL Report ID: [id number] Reading Location: [id number] us Jose Sullivan MD IMG XR PROCEDURES Final Resul t * (ABNORMAL) Troponin T high-sensitivity series (baseline, 2hr, 4hr, 6hr) (12/29/2024 11:09 PM CDT) Trop T hs 29(H) <=22 ng/L Comment: Interpretive Data For further hscTnT resources including the diagnostic algorithm and an aid in interpretation, copy and paste this link: https://nrl.testcatalog.org/show/hsTrop Current Interpretive Data last revised 2020. Blood 12/29/2024 11:0 9 PM CDT 12/29/2024 11:15 PM CDT us Jose Sullivan MD LAB BLOOD ORDERABLES Final Re sult [facility]) 1 [facility] [place] [address] * eGFR (12/29/2024 11:09 PM CDT) eGFR >90 >=60 mL/min/1. 73 m2 Comment: [...] interpretive data was last reviewed 2021. Blood 12/29/2024 11:0 9 PM CDT 12/29/2024 11:15 PM CDT us Larissa Mdeellin MD LAB BLOOD ORDERABLES Vickie arreola Result [facility] (S[place]AN) 1 [facility] [place] [address] * Differential, auto (12/29/2024 11:09 PM CDT) Neutrophil abs 5.64 1.50 - 6.50 K/cumm Imm gran abs 0.03 0.00 - 0.10 K/cumm [facility] ([facility]) Lymphocyte abs 1.06 0.80 - 3.30 K/cumm [facility] ([place]) Monocyte abs 0.77 0.20 - 0.80 K/cumm [facility] ([place]) Eosinophil abs 0.03 0.00 - 0.50 K/cumm [facility] ([place]) Basophil abs 0.02 0.00 - 0.10 K/cumm [facility] ([place]) Neutrophil pct 74.7 % [facility] ([facility]) Comment: Interpretive Data Percent cell count reference ranges are not reported, since discordance with absolute values may lead to misinterpretation of CBC data. Current Interpretive Data was last revised on 2017. Imm gran pct 0.4 % [facility] ([place]) Comment: Interpretive Data Percent cell count reference ranges are not reported, since discordance with absolute values may lead to misinterpretation of CBC data. Current Interpretive Data was last revised on 2017. Lymphocyte pct 14.0 % [facility] ([facility]AN) Comment: Interpretive Data Percent cell count reference ranges are not reported, since discordance with absolute values may lead to misinterpretation of CBC data. Current Interpretive Data was last revised on 2017. Monocyte pct 10.2 % [facility] ([facility]) Comment: Interpretive Data Percent cell count reference ranges are not reported, since discordance with absolute values may lead to misinterpretation of CBC data. Current Interpretive Data was last revised on 2017. Eosinophil pct 0.4 % [facility] ([facility]) Comment: Interpretive Data Percent cell count reference ranges are not reported, since discordance with absolute values may lead to misinterpretation of CBC data. Current Interpretive Data was last revised on 2017. Basophil pct 0.3 % [facility] ([facility]) Comment: Interpretive Data Percent cell count reference ranges are not reported, since discordance with absolute values may lead to misinterpretation of CBC data. Current Interpretive Data was last revised on 2017. Blood 12/29/2024 11:0 9 PM CDT 12/29/2024 11:15 PM CDT us Larissa Medellin MD LAB BLOOD ORDERABLES Vickie l Result [facility] (SULTAN) 1 [facility] Department [place] [place] [address] * (ABNORMAL) Thyroid Function [place] (12/29/2024 11:09 PM CDT) TSH 0.17(L) 0.30 - 4.20 mcIUnit/mL Blood 12/29/2024 11:0 9 PM CDT 12/30/2024 9:14 AM CDT us Jose Sullivan MD LAB BLOOD ORDERABLES Edited R esult - Final Performing Organization Address City/[facility]/ZIP Co de Phone Number [facility] (SULTAN) 1 [facility] [place] [address] * CBC with auto differential (12/29/2024 11:09 PM CDT) WBC 7.55 3.80 - 9.90 K/cumm Hgb 13.8 13.0 - 17.5 g/dL [facility] ([place]) Hct 42.1 38.9 - 50.3 % [facility] ([place]) Plt 270 150 - 400 K/cumm [facility] ([place]) MPV 9.6 9.1 - 12.3 fL [facility] ([place]) RBC 4.87 4.30 - 5.80 M/cumm [facility] ([place]) MCV 86.4 81.3 - 96.4 fL [facility] ([place]) MCH 28.3 27.1 - 33.3 pg [facility] ([facility]) MCHC 32.8 32.3 - 35.7 g/dL [facility] ([place]) RDW CV 13.3 11.1 - 14.9 % [facility] ([facility]) RDW SD 42.5 35.7 - 48.1 fL [facility] ([facility]) NRBC abs 0.00 0.00 - 0.01 K/cumm [facility] ([facility]) Blood 12/29/2024 11:0 9 PM CDT 12/29/2024 11:15 PM CDT us Jose Sullivan MD LAB BLOOD ORDERABLES Final Re sult Performing Organization Address [facility] Co de Phone Number [facility]CILLA ARREOL[facility] (SULTAN) [address] [place] [address] [place] [address] * T3, free (12/29/2024 11:09 PM CDT) Free T3 3.9 2.0 - 4.4 pg/mL Comment:Testing performed by : [facility], [address] [place] [address], [address] Blood 12/29/2024 11:0 9 PM CDT 12/30/2024 9:14 AM CDT Narrative [facility] ARREOL[facility] ([place]) - 12/30/2024 9:57 AM CDT This test was reflexed from a T4 result. us Jose Sullivan MD LAB BLOOD ORDERABLES Final Re sult Performing Organization Address [facility]/ZIP Co de Phone Number PR[facility]CILLA ARREOL[facility] (SULTAN) [address] [place] [address] [place] [address] * T4, free (12/29/2024 11:09 PM CDT) Free T4 1.07 0.90 - 1.70 ng/dL Blood 12/29/2024 11:0 9 PM CDT 12/30/2024 9:14 AM CDT Narrative [facility] ([place]) - 12/30/2024 9:57 AM CDT This test was reflexed from a TSH result. Jose Sullivan MD LAB BLOOD ORDERABLES Edited R esult - Final Performing Organization Address City/[facility]/ZIP Co de Phone Number PRISCILLA ARREOLA (CHA[place]) 1 [facility] [place] [place] [address] * Magnesium (12/29/2024 11:09 PM CDT) Magnesium 1.6 1.4 - 2.5 mg/dL Blood 12/29/2024 11:0 9 PM CDT 12/29/2024 11:15 PM CDT us Jose Sullivan MD LAB BLOOD ORDERABLES Final Re sult Performing Organization Address [facility] Co de Phone Number PRISCILLA ARREOLA (CHAO) [address] [facility] [place] [address] * Comprehensive metabolic panel (12/29/2024 11:09 PM CDT) Sodium 137 135 - 145 mmol/L Potassium, pl 4.2 3.3 - 4.9 mmol/L [facility] Chloride 99 97 - 110 mmol/L [facility] ([facility]) CO2 24 22 - 32 mmol/L [facility]) Anion gap 14 2 - 15 mmol/L [facility] BUN 8 6 - 25 mg/dL [facility] ([facility] Creatinine 1.04 0.80 - 1.30 mg/dL [facility] ([facility]) Glucose 126 70 - 199 mg/dL [facility] ([facility]) Comment: Interpretive Data Fasting glucose >/= 126 [...] interpretive data was last revised 2022. Calcium 9.3 8.5 - 10.3 mg/dL [facility] ([facility]) Bilirubin, total 0.2 0.1 - 1.2 mg/dL [facility] ([place]) Protein, pl 7.5 6.5 - 8.5 g/dL [facility] ([place]) Albumin 4.3 3.5 - 5.0 g/dL [facility] ([facility]) Alk phos 71 40 - 130 Units/L [facility] ([facility]) ALT 20 7 - 55 Units/L [facility] ([facility]) AST 25 10 - 50 Units/L [facility] ([facility]) Blood 12/29/2024 11:0 9 PM CDT 12/29/2024 11:15 PM CDT Jose Sullivan MD LAB BLOOD ORDERABLES Final Re sult [facility] ([facility]) 1 [facility] [place] [address] * (ABNORMAL) Urinalysis reflex to microscopic and culture Urine (12/20/2024 5:19 PM CDT) Color, ur Yellow Yellow Comment:Testing performed by : [address] [address] Clarity, ur Clear Clear [facility] Comment:Testing performed by : [address] [address] Specific gravity, ur 1.032(H) 1.003 - 1.030 [facility] Comment:Testing performed by : [address] [address] pH, urine 6.5 [facility] Comment: Interpretive Data U rine pH is affected by diet, medications, systemic acid-base disturbances, and renal tubular function. pH may affect urinary stone formation. For example, urine pH below 6.0 may help reduce the tendency for calcium phosphate stones and pH greater than 6.0 may reduce the tendency for uric acid stone formation. Source: [facility] [employer] Current Interpretive Data was last revised on 2017 Testing performed by: [address] [address] Protein, ur ql Trace(A) Negative [facility] Comment:Testing performed by : [address], [place]., [address] Glucose, ur ql Negative Negative [facility] Comment:Testing performed by : [address] [address] Ketones, ur Trace(A) Negative [facility] Comment:Testing performed by : [address] [address] Bilirubin, ur Negative Negative [facility] Comment:Testing performed by : [address], [place]., [address] Blood, ur 1+(A) Negative [facility] Comment:Testing performed by : [address] [address] Urobilinogen, ur 2.0(A) <2.0 mg/dL [facility] Comment:Testing performed by : [address] [address] Nitrite, ur Negative Negative [facility] Comment:Testing performed by : [address] [address] Leukocyte esterase, ur Negative Negative [facility] Comment:Testing performed by : [address] [address] UA reflex comment Reflex to microscopic UA will be performed. [facility] Comment:Testing performed by : [address] [address] Urine 12/20/2024 5:19 PM CDT 12/20/2024 5:25 PM CDT us Renetta Echols MD LAB MICROBIOLOGY - GENER AL ORDERABLES Final Result [facility] [address] [facility] [place] [address] * (ABNORMAL) Drugs of Abuse Screen, Urine without Confirmation (12/20/2024 5:19 PM CDT) [facility] Amphetamine, ur Not Detected CutOff 500ng/mL Comment: Interpretive Data - Amphetamines: Samples containing greater than 500 ng/mL d-methamphetamine or other cross-reacting amphetamine compounds are reported as positive. Amphetamine immunoassays are subject to significant false positive rates due to cross-reactivity of non-amphetamine drugs. Confirmatory testing required for definitive results. Current Interpretive Data was last reviewed 2023. Testing performed by: [address] [address] Barbiturates, ur Not Detected CutOff 200ng/mL [facility] Comment: Interpretive Data - Barbiturates: Samples containing greater than 200 ng/mL secobarbital or other cross-reacting barbiturate compounds are reported as positive. False positive and false negative results are possible. Confirmatory testing required for definitive results. Current Interpretive Data was last reviewed 2023. Testing performed by: [address] [address] Benzodiazepines, ur Not Detected CutOff 100ng/mL [facility] Comment: Interpretive Data - Benzodiazepines: Samples containing greater than 100 ng/mL nordiazepam or other cross-reacting compounds are reported as positive. False positive and false negative results are possible. Confirmatory testing required for definitive results. Current Interpretive Data was last reviewed 2023. Testing performed by: [address] [address] Cannabinoids, ur Screen Positive, presumptive (A) CutOff 50 ng/mL [facility] Comment: Interpretive Data - Cannabinoids: Samples containing greater than 50 ng/mL delta-9 THC -COOH or other cross- reacting compounds are reported as positive. False positive and false negative results are possible. Confirmatory testing required for definitive results. Current Interpretive Data was last reviewed 2023. Testing performed by: [address] [address] Cocaine, ur Not Detected CutOff 150ng/mL [facility] Comment: Interpretive Data - Cocaine: Samples containing greater than 150 ng/mL benzoylecgonine or other cross- reacting compounds are reported as positive. False positive and false negative results are possible. Confirmatory testing required for definitive results. Current Interpretive Data was last reviewed 2023. Testing performed by: [facility], [address] [place] [address]., [address] Fentanyl, Ur Not Detected Cutoff 1 ng/mL [facility] Comment: Interpretive Data - Fentanyl: Samples containing greater than 1 ng/mL fentanyl or other cross-reacting fentanyl compounds are reported as positive. False positive and false negative results are possible. Confirmatory testing required for definitive results. Current Interpretive Data was last reviewed 2023. Testing performed by: [facility], [address] [place] [address]., [address] Methadone, ur Not Detected CutOff 300ng/mL [facility] Comment: Interpretive Data - Methadone: Samples containing greater than 300 ng/mL d,l-methadone or other cross-reacting compounds are reported as positive. False positive and false negative results are possible. Confirmatory testing required for definitive results. Current Interpretive Data was last reviewed 2023. Testing performed by: [address] [address] Opiates, ur Not Detected CutOff 300ng/mL [facility] Comment: Interpretive Data - Opiates: Samples containing greater than 300 ng/mL morphine or other cross-reacting compounds are reported as positive. False positive and false negative results are possible. Confirmatory testing required for definitive results. Current Interpretive Data was last reviewed 2023. Testing performed by: [address] [address] Oxycodone, ur Not Detected CutOff 100ng/mL [facility] Comment: Interpretive Data - Oxycodone: Samples containing greater than 100 ng/mL oxycodone or other cross-reacting compounds are reported as positive. False positive and false negative results are possible. Confirmatory testing required for definitive results. Current Interpretive Data was last reviewed 2023. Testing performed by: [address] [address] Phencyclidine, ur Not Detected CutOff 25 ng/mL [facility] Comment: Interpretive Data - Phencyclidine: Samples containing greater than 25 ng/mL phencyclidine or other cross-reacting compounds are reported as positive. False positive and false negative results are possible. Confirmatory testing required for definitive results. Current Interpretive Data was last reviewed 2023. Testing performed by: [address] [address] Urine Creatinine 390 mg/dL [facility] Comment: Interpretive Data Urine Creatinine: < 10 mg/dL is extremely dilute = or > 10 but < 20 mg/dL is dilute = or > 20 mg/dL is normal Current Interpretive Data was last revised on 2017. Testing performed by: [address] [address] Urine 12/20/2024 5:19 PM CDT 12/20/2024 5:25 PM CDT Narrative PR[facility]LLA - 12/20/2024 5:57 PM CDT Drug of Abuse screening is performed by immunoassay for medical purposes only. This is not to be used for Pain Management purposes. us Renetta Echols MD LAB URINE ORDERABLES Fin al Result [facility]7 [facility] [place] [address] * (ABNORMAL) Urinalysis, microscopic only (12/20/2024 5:19 PM CDT) WBC, ur 0-5 0 - 5 /HPF Comment:Testing performed by : [address] [address] RBC, ur 11-20(A) 0 - 2 /HPF [facility] Comment:Testing performed by : [address] [address] Epithelial cells, squamous, ur 6-10(A) 0 - 5 /HPF [facility] Comment:Testing performed by : [address] [address] Mucous, ur Present(A) [facility]A Comment:Testing performed by : [address] [address] Sperm, ur Present(A) [facility]A Comment:Testing performed by : [address] [address] Culture Reflex Comment Reflex conditions for urine culture (WBC >10) not met. [facility]LLA Comment:Testing performed by : [facility], [address] [place] [address]., [address] Urine 12/20/2024 5:19 PM CDT 12/20/2024 5:25 PM CDT Renetta Echols MD LAB URINE ORDERABLES Fin al Result PR[facility]CILLA [address] [facility] [place] [address] * COVID-19 Coronavirus RNA Nasopharyngeal (12/20/2024 5:06 PM CDT) COVID-19 RNA Negative Negative Comment:Testing performed by : [address] [address] Nasopharyngeal 12/20/2024 5: 06 PM CDT 12/20/2024 5:22 PM CDT Narrative PRISCILLA - 12/20/2024 5:55 PM CDT Is the patient experiencing any symptoms consistent with COVID (eg. Fever, cough, shortness of breath)?->No What is the reason for testing?->Screening prior to Behavioral health admission Interpretive data Testing performed by [facility]. This test is performed using the Hexago Xpert Xpress CoV-2 plus assay. This is a real-time RT-PCR test intended for the qualitative detection of nucleic acid from the SARS-CoV-2. This assay has been cleared by the [place] Food and Drug administration. The performance characteristics have been verified by the [facility]. Results must be considered in the clinical context, and a negative result does not rule out infection. Interpretive data last revised 2024. Interpretive data Testing performed by [facility]. This test is performed using the [employer] Xpert Xpress CoV-2 plus assay. This is a real-time RT-PCR test intended for the qualitative detection of nucleic acid from the SARS-CoV-2. This assay has been cleared by the [place] Food and Drug administration. The performance characteristics have been verified by the [facility]. Results must be considered in the clinical context, and a negative result does not rule out infection. Interpretive data last revised 2024. Renetta Echols MD LAB MICROBIOLOGY - GENER AL ORDERABLES Final Result Performing Organization Address [facility] Co de Phone Number PRISCILLA [address] [address] * eGFR (12/20/2024 5:06 PM CDT) Pathologist [facility] eGFR >90 >=60 mL/min/1. 73 m2 Comment: [...] Current interpretive data was last reviewed 2021. Testing performed by: [facility], [address] [place] [address]., [address] Blood 12/20/2024 5:06 PM CDT 12/20/2024 5:25 PM CDT Renetta Echols MD LAB BLOOD ORDERABLES Fin al Result Performing Organization Address [facility] Co de Phone Number PRISCILLA [address] [place] [address] * Differential, auto (12/20/2024 5:06 PM CDT) Pathologist [facility] Neutrophil abs 3.48 1.50 - 6.50 K/cumm Comment:Testing performed by : [address], [place]., [address] Imm gran abs 0.02 0.00 - 0.10 K/cumm [facility] Comment:Testing performed by : [address] [address] Lymphocyte abs 1.90 0.80 - 3.30 K/cumm [facility] Comment:Testing performed by : [address] [address] Monocyte abs 0.60 0.20 - 0.80 K/cumm [facility] Comment:Testing performed by : [address], [place]., [address] Eosinophil abs 0.17 0.00 - 0.50 K/cumm [facility] Comment:Testing performed by : [address] [address] Basophil abs 0.03 0.00 - 0.10 K/cumm [facility] Comment:Testing performed by : [address] [address] Neutrophil pct 56.2 % [facility] Comment: Interpretive Data Percent cell count reference ranges are not reported, since discordance with absolute values may lead to misinterpretation of CBC data. Current Interpretive Data was last revised on 2017. Testing performed by: [address] [address] Imm gran pct 0.3 % [facility] Comment: Interpretive Data Percent cell count reference ranges are not reported, since discordance with absolute values may lead to misinterpretation of CBC data. Current Interpretive Data was last revised on 2017. Testing performed by: [address] [address] Lymphocyte pct 30.6 % [facility] Comment: Interpretive Data Percent cell count reference ranges are not reported, since discordance with absolute values may lead to misinterpretation of CBC data. Current Interpretive Data was last revised on 2017. Testing performed by: [address] [address] Monocyte pct 9.7 % [facility] Comment: Interpretive Data Percent cell count reference ranges are not reported, since discordance with absolute values may lead to misinterpretation of CBC data. Current Interpretive Data was last revised on 2017. Testing performed by: [address] [address] Eosinophil pct 2.7 % [facility] Comment: Interpretive Data Percent cell count reference ranges are not reported, since discordance with absolute values may lead to misinterpretation of CBC data. Current Interpretive Data was last revised on 2017. Testing performed by: [address] [address] Basophil pct 0.5 % [facility] Comment: Interpretive Data Percent cell count reference ranges are not reported, since discordance with absolute values may lead to misinterpretation of CBC data. Current Interpretive Data was last revised on 2017. Testing performed by: [address] [address] Blood 12/20/2024 5:06 PM CDT 12/20/2024 5:25 PM CDT Renetta Echols MD LAB BLOOD ORDERABLES Fin al Result Performing Organization Address City/[facility] Co de Phone Number [address] [place] [address] * Thyroid Function [place] (12/20/2024 5:06 PM CDT) Pathologist [facility] TSH 0.32 0.30 - 4.20 mcIUnit/mL Comment:Testing performed by : [address] [address] Blood 12/20/2024 5:06 PM CDT 12/20/2024 5:25 PM CDT Renetta Echols MD LAB BLOOD ORDERABLES Fin al Result Performing Organization Address City/[facility] Co de Phone Number [address] [place] [place] [address] * CBC with auto differential (12/20/2024 5:06 PM CDT) WBC 6.20 3.80 - 9.90 K/cumm Comment:Testing performed by : [address] [address] Hgb 13.0 13.0 - 17.5 g/dL [facility] Comment:Testing performed by : [address] [address] Hct 39.6 38.9 - 50.3 % [facility] Comment:Testing performed by : [address] [address] Plt 245 150 - 400 K/cumm [facility] Comment:Testing performed by : [address] [address] MPV 9.7 9.1 - 12.3 fL [facility] Comment:Testing performed by : [address], [address] RBC 4.61 4.30 - 5.80 M/cumm [facility] Comment:Testing performed by : [address], [address] MCV 85.9 81.3 - 96.4 fL [facility] Comment:Testing performed by : [address] [address] MCH 28.2 27.1 - 33.3 pg [facility] Comment:Testing performed by : [address] [address] MCHC 32.8 32.3 - 35.7 g/dL [facility] Comment:Testing performed by : [address], [address] RDW CV 14.0 11.1 - 14.9 % [facility] Comment:Testing performed by : [address] [address] RDW SD 43.7 35.7 - 48.1 fL [facility] Comment:Testing performed by : [address] [address] NRBC abs 0.00 0.00 - 0.01 K/cumm [facility] Comment:Testing performed by : [address], [address] Blood Venous blood specimen / Unknown 12/20/2024 5:06 PM CDT 12/20/2024 5:25 PM CDT Renetta Echols MD LAB BLOOD ORDERABLES Fin al Result Performing Organization Address [facility] Co de Phone Number PRISCILLA [address] [address] * Ethanol (12/20/2024 5:06 PM CDT) Ethanol <10 <=10 mg/dL Comment: Interpretive Data Legal limit of intoxication > or = 80 mg/dL Levels > or = 400 mg/dL are potentially TOXIC. Current interpretive data was last revised on 2018. Testing performed by: [address] [address] Blood 12/20/2024 5:06 PM CDT 12/20/2024 5:25 PM CDT Renetta Echols MD LAB BLOOD ORDERABLES Fin al Result Performing Organization Address [facility] Co de Phone Number LEON[address] [address] * Acetaminophen level (12/20/2024 5:06 PM CDT) Acetaminophen <5 <=5 mcg/mL Comment: Interpretive Data Significant hepatic injury may occur and treatment with n-acetyl cysteine is generally recommended if the acetaminophen level exceeds: 150 mcg/mL at 4 hours after ingestion 75 mcg/mL at 8 hours after ingestion 38 mcg/mL at 12 hours after ingestion 19 mcg/mL at 16 hours after ingestion Consult toxicology or poison control ([phone]) for unknown ingestion time. Current interpretive data was last revised 2023. Testing performed by: [address] [address] Blood 12/20/2024 5:06 PM CDT 12/20/2024 5:25 PM CDT Renetta Echols MD LAB BLOOD ORDERABLES Fin al Result Performing Organization Address [facility] de Phone Number LEON[address] [address] * Salicylate level (12/20/2024 5:06 PM CDT) Salicylate <1.0 <=1.0 mg/dL Comment: Interpretive Data Toxic: 30 mg/dL or greater. Current interpretive data was last revised 2023. Testing performed by: [address] [address] Blood 12/20/2024 5:06 PM CDT 12/20/2024 5:25 PM CDT Renetta Echols MD LAB BLOOD ORDERABLES Fin al Result Performing Organization Address [facility] de Phone Number LEON[address] [place] [address] * Comprehensive metabolic panel (12/20/2024 5:06 PM CDT) Pathologist [facility] Sodium 142 135 - 145 mmol/L Comment:Testing performed by : [address] [address] Potassium, pl 4.1 3.3 - 4.9 mmol/L [facility] Comment:Testing performed by : [address] [address] Chloride 106 97 - 110 mmol/L [facility] Comment:Testing performed by : [address] [address] CO2 24 22 - 32 mmol/L [facility] Comment:Testing performed by : [address] [address] Anion gap 12 2 - 15 mmol/L [facility] Comment:Testing performed by : [address] [address] BUN 9 6 - 25 mg/dL [facility] Comment:Testing performed by : [address] [address] Creatinine 1.10 0.80 - 1.30 mg/dL [facility] Comment:Testing performed by : [address] [address] Glucose 116 70 - 199 mg/dL [facility] Comment: Interpretive Data Fasting glucose >/= 126 [...] Current interpretive data was last revised 2022. Testing performed by: [address] [address] Calcium 9.0 8.5 - 10.3 mg/dL [facility] Comment:Testing performed by : [address] [address] Bilirubin, total 0.2 0.1 - 1.2 mg/dL [facility] Comment:Testing performed by : [address] [address] Protein, pl 7.1 6.5 - 8.5 g/dL [facility] Comment:Testing performed by : [address] [address] Albumin 4.1 3.5 - 5.0 g/dL [facility] Comment:Testing performed by : [address] [address] Alk phos 64 40 - 130 Units/L [facility] Comment:Testing performed by : [address] [address] ALT 15 7 - 55 Units/L [facility] Comment:Testing performed by : [address] [address] AST 20 10 - 50 Units/L [facility] Comment:Testing performed by : [address] [address] Blood 12/20/2024 5:06 PM CDT 12/20/2024 5:25 PM CDT us Renetta Echosl MD LAB BLOOD ORDERABLES Fin al Result [facility] MH [address] [facility] Department [place] [address] * CT Abdomen Pelvis W Contrast (11/04/2024 [...] Farida Mahmood M.D. SN T: Report ID: [id number] Reading Location: [id number] Procedure Note Farida Mahmood MD - 11/04/2024 [...] Farida Mahmood M.D. SN T: Report ID: [id number] Reading Location: [place] [address] us Neel So MD IMG CT PROCEDURES Final Re sult * Urinalysis reflex to microscopic and culture Urine (11/04/2024 5:27 AM CDT) Color, ur Yellow Yellow Clarity, ur Clear Clear [facility] Specific gravity, ur 1.021 1.003 - 1.030 [facility] pH, urine 6.5 [facility] Comment: Interpretive Data U rine pH is affected by diet, medications, systemic acid-base disturbances, and renal tubular function. pH may affect urinary stone formation. For example, urine pH below 6.0 may help reduce the tendency for calcium phosphate stones and pH greater than 6.0 may reduce the tendency for uric acid stone formation. Source: [facility] [employer] Current Interpretive Data was last revised on 2017 Protein, ur ql Negative Negative [facility] Glucose, ur ql Negative Negative [facility] Ketones, ur Negative Negative [facility] Bilirubin, ur Negative Negative [facility] Blood, ur Negative Negative [facility] Urobilinogen, ur <2.0 <2.0 mg/dL [facility] Nitrite, ur Negative Negative [facility] Leukocyte esterase, ur Negative Negative [facility] UA reflex comment Reflex conditions for microscopic UA and culture not met. [facility] Urine 11/04/2024 5:27 AM CDT 11/04/2024 5:30 AM CDT us Neel So MD LAB MICROBIOLOGY - GENERAL ORDERABLES Final Result [facility] [address] [facility] Department [place] [address] * (ABNORMAL) Drugs of Abuse Screen, Urine without Confirmation (11/04/2024 5:27 AM CDT) Pathologist [facility] Amphetamine, ur Not Detected CutOff 500ng/mL Comment: Interpretive Data - Amphetamines: Samples containing greater than 500 ng/mL d-methamphetamine or other cross-reacting amphetamine compounds are reported as positive. Amphetamine immunoassays are subject to significant false positive rates due to cross-reactivity of non-amphetamine drugs. Confirmatory testing required for definitive results. Current Interpretive Data was last reviewed 2023. Barbiturates, ur Not Detected CutOff 200ng/mL [facility] Comment: Interpretive Data - Barbiturates: Samples containing greater than 200 ng/mL secobarbital or other cross-reacting barbiturate compounds are reported as positive. False positive and false negative results are possible. Confirmatory testing required for definitive results. Current Interpretive Data was last reviewed 2023. Benzodiazepines, ur Not Detected CutOff 100ng/mL [facility] Comment: Interpretive Data - Benzodiazepines: Samples containing greater than 100 ng/mL nordiazepam or other cross-reacting compounds are reported as positive. False positive and false negative results are possible. Confirmatory testing required for definitive results. Current Interpretive Data was last reviewed 2023. Cannabinoids, ur Screen Positive, presumptive (A) CutOff 50 ng/mL [facility] Comment: Interpretive Data - Cannabinoids: Samples containing greater than 50 ng/mL delta-9 THC -COOH or other cross- reacting compounds are reported as positive. False positive and false negative results are possible. Confirmatory testing required for definitive results. Current Interpretive Data was last reviewed 2023. Cocaine, ur Not Detected CutOff 150ng/mL [facility] Comment: Interpretive Data - Cocaine: Samples containing greater than 150 ng/mL benzoylecgonine or other cross- reacting compounds are reported as positive. False positive and false negative results are possible. Confirmatory testing required for definitive results. Current Interpretive Data was last reviewed 2023. Fentanyl, Ur Not Detected CutOff 5 ng/mL [facility] Comment: Interpretive Data - Fentanyl: Samples containing greater than 5 ng/mL norfentanyl, fentanyl, or other cross-reacting fentanyl compounds are reported as positive. False positive and false negative results are possible. Confirmatory testing required for definitive results. Current Interpretive Data was last reviewed 2023. Methadone, ur Not Detected CutOff 300ng/mL [facility] Comment: Interpretive Data - Methadone: Samples containing greater than 300 ng/mL d,l-methadone or other cross-reacting compounds are reported as positive. False positive and false negative results are possible. Confirmatory testing required for definitive results. Current Interpretive Data was last reviewed 2023. Opiates, ur Not Detected CutOff 300ng/mL [facility] Comment: Interpretive Data - Opiates: Samples containing greater than 300 ng/mL morphine or other cross-reacting compounds are reported as positive. False positive and false negative results are possible. Confirmatory testing required for definitive results. Current Interpretive Data was last reviewed 2023. Oxycodone, ur Not Detected CutOff 100ng/mL [facility] Comment: Interpretive Data - Oxycodone: Samples containing greater than 100 ng/mL oxycodone or other cross-reacting compounds are reported as positive. False positive and false negative results are possible. Confirmatory testing required for definitive results. Current Interpretive Data was last reviewed 2023. Phencyclidine, ur Not Detected CutOff 25 ng/mL [facility] Comment: Interpretive Data - Phencyclidine: Samples containing greater than 25 ng/mL phencyclidine or other cross-reacting compounds are reported as positive. False positive and false negative results are possible. Confirmatory testing required for definitive results. Current Interpretive Data was last reviewed 2023. Urine Creatinine 126 mg/dL [facility] Comment: Interpretive Data Urine Creatinine: < 10 mg/dL is extremely dilute = or > 10 but < 20 mg/dL is dilute = or > 20 mg/dL is normal Current Interpretive Data was last revised on 2017. Urine 11/04/2024 5:27 AM CDT 11/04/2024 5:30 AM CDT Narrative [facility] - 11/04/2024 5:58 AM CDT Drug of Abuse screening is performed by immunoassay for medical purposes only. This is not to be used for Pain Management purposes. Neel So MD LAB URINE ORDERABLES Final Result Performing Organization Address [facility] Co de Phone Number LEON[address] [address] * Troponin T high-sensitivity 2-hour (11/04/2024 4:17 AM CDT) Trop T hs 8 <=22 ng/L Comment: Interpretive Data For further hscTnT resources including the diagnostic algorithm and an aid in interpretation, copy and paste this link: https://nrl.testcatalog.org/show/hsTrop Current Interpretive Data last revised 2020. Trop T hs delta 1 ng/L [facility] Trop T hs interp Insignificant [facility] Blood 11/04/2024 4:17 AM CDT 11/04/2024 4:20 AM CDT Neel So MD LAB BLOOD ORDERABLES Final Result Performing Organization Address [facility] de Phone Number [address] [address] * ABO / Rh Confirmation Testing (11/04/2024 4:17 AM CDT) ABO/Rh Confirmation NTD Pos [facility] Comment: 11/04/2024 04:48 [id number] Patient demonstrating mixed field reactions in the ABO typing due to unknown cause. ABO typing cannot be interpreted at this time. Blood 11/04/2024 4:17 AM CDT 11/04/2024 4:20 AM CDT Result [facility] Neel So MD LAB BLOOD ORDERABLES Final Result Performing Organization Address [facility] Co de Phone Number [address] [address] [facility] * Troponin T high-sensitivity series (baseline, 2hr, 4hr, 6hr) (11/04/2024 1:26 AM CDT) Trop T hs 7 <=22 ng/L Comment: Interpretive Data For further hscTnT resources including the diagnostic algorithm and an aid in interpretation, copy and paste this link: https://nrl.testcatalog.org/show/hsTrop Current Interpretive Data last revised 2020. Blood 11/04/2024 1:26 AM CDT 11/04/2024 2:41 AM CDT Neel So MD LAB BLOOD ORDERABLES Final Result Performing Organization Address [facility] Co de Phone Number [facility]A [address] [facility] Department [place] [address] * Influenza A/B, RSV, and COVID-19 PCR Nasopharyngeal (11/04/2024 1:26 AM CDT) [facility] COVID-19 RNA Negative Negative Influenza A RNA Negative Negative [facility] Influenza B RNA Negative Negative [facility] RSV RNA Negative Negative [facility] Comment: Interpretive data: Testing performed by [facility]. This test is performed using the [employer] Xpert Xpress CoV-2/Flu/RSV plus assay. This is a multiplex, real-time reverse transcriptase PCR assay intended for the qualitative detection of nucleic acid from SARS-CoV-2, influenza A, influenza B, and respiratory syncytial virus. This assay has been cleared by the [place] Food and Drug administration. The performance characteristics have been verified by the [facility]. Results must be considered in the clinical context, and a negative result does not rule out infection. Interpretive Data last revised 2023 Nasopharyngeal 11/04/2024 1: 26 AM CDT 11/04/2024 1:30 AM CDT Narrative [facility] - 11/04/2024 2:20 AM CDT Is the Patient experiencing symptoms consistent with COVID?->Unknown Neel So MD LAB MICROBIOLOGY - GENERAL ORDERABLES Final Result Performing Organization Address [facility]/ZIP Co de Phone Number PRISCILLA [address] [place] [address] * (ABNORMAL) Lactate (11/04/2024 1:26 AM CDT) Lactate 0.4(L) 0.7 - 2.0 mmol/L Blood 11/04/2024 1:26 AM CDT 11/04/2024 1:30 AM CDT Neel So MD LAB BLOOD ORDERABLES Final Result Performing Organization Address [facility] de Phone Number LEON[address] [place] [address] * eGFR (11/04/2024 1:26 AM CDT) eGFR >90 >=60 mL/min/1. 73 m2 Comment: [...] interpretive data was last reviewed 2021. Blood 11/04/2024 1:26 AM CDT 11/04/2024 1:30 AM CDT Neel So MD LAB BLOOD ORDERABLES Final Result Performing Organization Address [facility] Co de Phone Number PRISCILLA [address] [place] [address] * Differential, auto (11/04/2024 1:26 AM CDT) Pathologist [facility] Neutrophil abs 2.07 1.50 - 6.50 K/cumm Imm gran abs 0.00 0.00 - 0.10 K/cumm [facility] Lymphocyte abs 1.51 0.80 - 3.30 K/cumm [facility] Monocyte abs 0.53 0.20 - 0.80 K/cumm [facility] Eosinophil abs 0.14 0.00 - 0.50 K/cumm [facility] Basophil abs 0.01 0.00 - 0.10 K/cumm [facility] Neutrophil pct 48.7 % [facility] Comment: Interpretive Data Percent cell count reference ranges are not reported, since discordance with absolute values may lead to misinterpretation of CBC data. Current Interpretive Data was last revised on 2017. Imm gran pct 0.0 % [facility] Comment: Interpretive Data Percent cell count reference ranges are not reported, since discordance with absolute values may lead to misinterpretation of CBC data. Current Interpretive Data was last revised on 2017. Lymphocyte pct 35.4 % [facility] Comment: Interpretive Data Percent cell count reference ranges are not reported, since discordance with absolute values may lead to misinterpretation of CBC data. Current Interpretive Data was last revised on 2017. Monocyte pct 12.4 % [facility] Comment: Interpretive Data Percent cell count reference ranges are not reported, since discordance with absolute values may lead to misinterpretation of CBC data. Current Interpretive Data was last revised on 2017. Eosinophil pct 3.3 % [facility] Comment: Interpretive Data Percent cell count reference ranges are not reported, since discordance with absolute values may lead to misinterpretation of CBC data. Current Interpretive Data was last revised on 2017. Basophil pct 0.2 % [facility] Comment: Interpretive Data Percent cell count reference ranges are not reported, since discordance with absolute values may lead to misinterpretation of CBC data. Current Interpretive Data was last revised on 2017. Blood 11/04/2024 1:26 AM CDT 11/04/2024 1:30 AM CDT Neel So MD LAB BLOOD ORDERABLES Final Result Performing Organization Address City/[facility]/ZIP Co de Phone Number [address] [place] [address] * Thyroid Function [place] (11/04/2024 1:26 AM CDT) Pathologist [facility] TSH 0.41 0.30 - 4.20 mcIUnit/mL Blood 11/04/2024 1:26 AM CDT 11/04/2024 1:30 AM CDT Neel So MD LAB BLOOD ORDERABLES Final Result Performing Organization Address [facility] de Phone Number [address] [place] [address] * (ABNORMAL) CBC with auto differential (11/04/2024 1:26 AM CDT) Pathologist [facility] WBC 4.26 3.80 - 9.90 K/cumm Hgb 13.0 13.0 - 17.5 g/dL [facility] Hct 40.9 38.9 - 50.3 % [facility] Plt 216 150 - 400 K/cumm [facility] MPV 9.6 9.1 - 12.3 fL [facility] RBC 4.69 4.30 - 5.80 M/cumm [facility] MCV 87.2 81.3 - 96.4 fL [facility] MCH 27.7 27.1 - 33.3 pg [facility] MCHC 31.8(L) 32.3 - 35.7 g/dL [facility] RDW CV 13.6 11.1 - 14.9 % [facility] RDW SD 43.1 35.7 - 48.1 fL [facility] NRBC abs 0.00 0.00 - 0.01 K/cumm [facility] Blood 11/04/2024 1:26 AM CDT 11/04/2024 1:30 AM CDT Neel So MD LAB BLOOD ORDERABLES Final Result Performing Organization Address [facility] de Phone Number LEON[address] [address] * ABO/Rh (11/04/2024 1:26 AM CDT) ABO/Rh NTD Pos Comment: 11/04/2024 04:45 [id number] Patient demonstrating mixed field reactions in the ABO typing due to unknown cause. ABO typing cannot be interpreted at this time. Blood 11/04/2024 1:26 AM CDT 11/04/2024 1:30 AM CDT Narrative [facility] - 11/04/2024 4:47 AM CDT Has the patient had Daratumumab or Isatuximab in the past 6 months?->Unknown Neel So MD LAB BLOOD BANK TEST ORDERA BLES Final Result Performing Organization Address [facility] de Phone Number [address] [address] * aPTT (11/04/2024 1:26 AM CDT) aPTT 28 22 - 37 sec Comment: Interpretive data aPTT test has not been evaluated for monitoring heparin therapy. The anti-Xa is the preferred test. Current interpretive data was last revised on 2019. Blood 11/04/2024 1:26 AM CDT 11/04/2024 1:30 AM CDT Neel So MD LAB BLOOD ORDERABLES Final Result Performing Organization Address [facility] de [place] Number [place] [id number] [facility] [place] [address] * Protime-INR (11/04/2024 1:26 AM CDT) PT 14.0 12.0 - 14.6 sec INR 1.1 0.9 - 1.2 [facility] Comment: Ref Range High Interpretive data Oral anticoagulant therapeutic ranges: Venous thromboembolism prophylaxis or treatment: 2.0-3.0 CARDIOLOGY Standard range: 2.0-3.0 High-intensity range: 2.5-3.5 Refer to indication-specific guidelines for appropriate target ranges for prosthetic heart valve replacement. Current interpretive data was last revised on 2019. Blood 11/04/2024 1:26 AM CDT 11/04/2024 1:30 AM CDT Neel So MD LAB BLOOD ORDERABLES Final Result Performing Organization Address City/[facility] Co de Phone Number [address] [place] [address] * Antibody screen (11/04/2024 1:26 AM CDT) Pathologist [facility] [place], indirect, Gel Interpretation Negative ABSC Blood 11/04/2024 1:26 AM CDT 11/04/2024 1:30 AM CDT Narrative [facility]A - 11/04/2024 4:47 AM CDT Has the patient had Daratumumab or Isatuximab in the past 6 months?->Unknown Neel So MD LAB BLOOD BANK TEST ORDERA BLES Final Result Performing Organization Address [facility] de Phone Number [address] [address] * Phosphorus (11/04/2024 1:26 AM CDT) Pathologist [facility] Phosphorus, pl 2.9 2.3 - 4.5 mg/dL Blood 11/04/2024 1:26 AM CDT 11/04/2024 1:30 AM CDT Neel So MD LAB BLOOD ORDERABLES Final Result Performing Organization Address [facility] de Phone Number [address] [address] * Magnesium (11/04/2024 1:26 AM CDT) Pathologist [facility] Magnesium 1.7 1.4 - 2.5 mg/dL Blood 11/04/2024 1:26 AM CDT 11/04/2024 1:30 AM CDT eNel So MD LAB BLOOD ORDERABLES Final Result Performing Organization Address [facility] de Phone Number LEON[address] [place] [address] * Lipase (11/04/2024 1:26 AM CDT) Pathologist [facility] Lipase 36 10 - 99 Units/L Blood 11/04/2024 1:26 AM CDT 11/04/2024 1:30 AM CDT Neel So MD LAB BLOOD ORDERABLES Final Result Performing Organization Address [facility] Phone Number [address] [address] * Ethanol (11/04/2024 1:26 AM CDT) [facility] Ethanol <10 <=10 mg/dL Comment: Interpretive Data Legal limit of intoxication > or = 80 mg/dL Levels > or = 400 mg/dL are potentially TOXIC. Current interpretive data was last revised on 2018. Blood 11/04/2024 1:26 AM CDT 11/04/2024 1:30 AM CDT Neel So MD LAB BLOOD ORDERABLES Final Result Performing Organization Address [facility] de Phone Number [address] [place] [address] * (ABNORMAL) Comprehensive metabolic panel (11/04/2024 1:26 AM CDT) [facility] Sodium 139 135 - 145 mmol/L Potassium, pl 4.3 3.3 - 4.9 mmol/L [facility] Chloride 106 97 - 110 mmol/L [facility] CO2 24 22 - 32 mmol/L [facility] Anion gap 9 2 - 15 mmol/L [facility] BUN 12 6 - 25 mg/dL [facility] Creatinine 1.10 0.80 - 1.30 mg/dL [facility] Glucose 91 70 - 199 mg/dL [facility] Comment: Interpretive Data Fasting glucose >/= 126 [...] interpretive data was last revised 2022. Calcium 8.1(L) 8.5 - 10.3 mg/dL [facility] Bilirubin, total 0.2 0.1 - 1.2 mg/dL [facility] Protein, pl 6.9 6.5 - 8.5 g/dL [facility] Albumin 4.0 3.5 - 5.0 g/dL [facility] Alk phos 64 40 - 130 Units/L [facility] ALT 20 7 - 55 Units/L [facility] AST 23 10 - 50 Units/L [facility] Blood 11/04/2024 1:26 AM CDT 11/04/2024 1:30 AM CDT us Neel So MD LAB BLOOD ORDERABLES Final Result Performing Organization Address City/State/[facility] Co de Phone Number [facility] [address] [facility] [place] [address] * ECG 12 lead (11/04/2024 1:07 AM CDT) Pathologist [facility] Ventricular Rate EKG/Min 58 BPM [facility] Atrial Rate 58 BPM [facility] MO-Interval (MSEC) 162 ms [facility] QRS-Interval (MSEC) 110 ms [facility] QT-Interval (MSEC) 370 ms [facility] QTc 363 ms [facility] P [place] 17 degrees [facility] R [place] 78 degrees [facility] T [place] 55 degrees [facility] Diagnosis Sinus bradycardia with sinus arrhythmia Possible Left atrial enlargement Left ventricular hypertrophy ST elevation, consider early repolarization , pericarditis, or injury Abnormal ECG When compared with ECG of 07-OCT-2023 01:51, T wave inversion now evident in Anterior leads Confirmed by HARRY LI M.D. ([id number]) on 11/09/2024 1:32:02 PM [facility] 11/04/2024 1:07 AM CDT 11/09/2024 1:32 PM CDT us Neel So MD ECG ORDERABLES Final Resu lt [facility] from Last 3 Months Insurance Advance Directives For more information, please contact: [phone] * Full Code (Latest Code Status on File) Date Activated Date Inactivated Comments 01/06/2025 2:47 PM 01/09/2025 7:55 PM * Full Code Date Activated Date Inactivated Comments 12/30/2024 1:31 AM 12/30/2024 8:15 PM * Full Code Date Activated Date Inactivated Comments 09/28/2024 2:38 PM 10/01/2024 4:02 PM * Full Code Date Activated Date Inactivated Comments 11/16/2023 2:56 AM 11/18/2023 12:47 PM * Full Code Date Activated Date Inactivated Comments 09/07/2023 6:32 AM 09/09/2023 5:23 PM Care Teams Assistant Professor Relationship Specialty Start Date End Date No, Physician PCP - General 11/30/20
--- OUTSIDE RECORDS SUMMARY | 2025-01-12 21:45 | XMS_ITS | Clinical Summary ---
Author Organization [facility] [employer] Address [address] [place] [address] Care Team Providers Care Tangled Yarn Worker Name Role Phone None, Physician Primary Care Provider Unavailabl e Source Comments [facility] [employer],non-owned Affiliates and Associated Physician Practices is amultiple site organization consisting of ambulatory clinics and hospital sitesin [place], [place], [place] and [place]. This disclosure is being madepursuant to the Care Everywhere program and may not contain all information available regarding this patient. Last updated 18.[facility] [employer] Allergies No known active allergies Medications * [...] (06/02/2022): Added automatically from request for surgery [id number] ST elevation myocardial infa rction (STEMI), unspecified [...] housing, medical care, and heating? Hard 08/07/2023 [facility] [place] [facility] - Occupational Stress [...] place to sleep or slept in a skilled nursing (including now)? 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 Gender Identity Not on file Sexual Orientation Not on file Last Filed Vital Signs Vital Sign Reading Time Taken Comments Blood Pressure 141/85 09/17/2024 4:00 AM FORM SETTER HELPER Pulse 87 09/17/2024 4:00 AM FORM SETTER HELPER Temperature 36.9 C (98.5 F) 09/17/2024 1:48 AM FORM SETTER HELPER Respiratory Rate 13 09/17/2024 4:02 AM FORM SETTER HELPER Oxygen Saturation 96% 09/17/2024 4:00 AM FORM SETTER HELPER Inhaled Oxygen Concentration - - Weight 72.6 kg (160 lb) 09/17/2024 1:45 AM FORM SETTER HELPER Height 180.3 cm (5' 11) 09/17/2024 1:45 AM FORM SETTER HELPER Body Mass Index 22.32 09/17/2024 1:45 AM FORM SETTER HELPER Plan of Treatment Health Maintenance Due Date Last Done Comments HEPATITIS B VACCINE (3 of 3 - 3-dose series) 11/16/2000 09/21/2000, 04/04/1996 DTAP/TDAP/TD VACCINES (5 - Tdap) 2002 04/04/1996, 08/20/1992, 06/20/1992, Additional history exists HIV SCREENING 2006 HEPATITIS C SCREENING 03/01/2009 COVID-19 VACCINE ( season) 2024 DEPRESSION SCREENING 08/02/2024 INFLUENZA VACCINE [...] 4:30 AM 06/03/2022 4:00 PM Care Teams Tangled Yarn Worker Relationship Specialty Start Date End Date None, Physician PCP - General 09/17/24
--- OUTSIDE RECORDS SUMMARY | 2025-01-12 21:45 | XMS_ITS | Clinical Summary ---
Author Organization [facility] Address [address] [place] [address] Phone Care Team Providers Care Automotive Window Tinter Name Role Phone Unavailable Primary Care Provider Unavailabl e Allergies No known active allergies Encounters Date Type Department Care Team Description 12/22/2024 Lab Requisition [facility] [address] [place] [phone] Ventura Brian MD 11/05/2024 Lab Requisition [facility] [address] [place] [phone] Ventura Brian MD from Last 3 Months Social History Tobacco Use Types Packs/Day Years Used Date Smoking Tobacco: Never Assessed Sex and Gender Information Value Date Recorded Sex Assigned at Not on file 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 Gender Identity Not on file Sexual Orientation Not on file Last Filed Vital Signs Vital Sign Reading Time Taken Comments Blood Pressure 136/87 06/14/2021 8:27 AM EAR NOSE THROAT SURGEON Pulse - - Temperature 36.9 C (98.4 F) 06/14/2021 8:27 AM EAR NOSE THROAT SURGEON Respiratory Rate 18 06/14/2021 8:27 AM EAR NOSE THROAT SURGEON Oxygen Saturation 98% 06/14/2021 8:27 AM EAR NOSE THROAT SURGEON Inhaled Oxygen Concentration - - Weight 69.9 kg (154 lb) 06/14/2021 8:27 AM EAR NOSE THROAT SURGEON Height 15.2 cm (6) 06/14/2021 8:27 AM EAR NOSE THROAT SURGEON Body Mass Index 3007.61 06/14/2021 8:27 AM EAR NOSE THROAT SURGEON Plan of Treatment Health Maintenance Due Date [...] LIPID PANEL Routine 12/22/2024 5:35 AM CDT HEMOGLOBIN A1C Routine 11/05/2024 6:48 AM CDT GLUCOSE LEVEL Routine 11/05/2024 6:48 AM CDT LIPID PANEL Routine 11/05/2024 6:48 AM CDT from Last 3 Months Results * HEMOGLOBIN A1C (12/22/2024 5:35 AM CDT) Only the most recent of2 resultswithin the time period is included. HEMOGLOBIN A1C 5.5 <=5.6 % 12/22/2024 7:21 AM CDT [facility] EST. AVG GLUCOSE, A1C 111 mg/dL 12/22/2024 7:21 AM CDT [facility] Blood Venipuncture / Unknown 12/22/2024 5:35 AM CDT 12/22/2024 6:18 AM CDT Narrative [facility] - 12/22/2024 7:21 AM CDT HGB A1C INTERPRETATION NORMAL: <5.7% PRE-DIABETES: 5.7 - 6.4% DIABETES: 6.5% OR GREATER us Ventura Brian MD CHEMISTRY ORDERABLES Final Res ult [facility] [id number] [address] [place] [id number] * LIPID PANEL (12/22/2024 5:35 AM CDT) Only the most recent of2 resultswithin the time period is included. CHOLESTEROL 132 <200 mg/dL 12/22/2024 7:25 AM CDT [facility] TRIGLYCERIDE 83 <150 mg/dL 12/22/2024 7:25 AM CDT [facility] HDL 45 40 - 59 mg/dL 12/22/2024 7:25 AM CDT [facility] LDL CALCULATED 70 <100 mg/dL 12/22/2024 7:25 AM CDT [facility] NON-HDL CHOLESTEROL 87 <130 mg/dL 12/22/2024 7:25 AM T [facility] Blood Venipuncture / Unknown 12/22/2024 5:35 AM CDT 12/22/2024 6:18 AM CDT Narrative [facility] - 12/22/2024 7:25 AM CDT TOTAL [...] Brian MD CHEMISTRY ORDERABLES Final Res ult [facility] [id number] [address] [place] [address] * GLUCOSE LEVEL (11/05/2024 6:48 AM CDT) GLUCOSE 91 70 - 115 mg/dL 11/05/2024 9:58 AM CDT [facility] Blood Collection / Unknown 11/05/2024 6:48 AM CDT 11/05/2024 8:45 AM CDT us Ventura Brian MD CHEMISTRY ORDERABLES Final Res ult [facility] [id number] [address] [place] [phone] from Last [address] [place] [address] [place] [address] PLAN MEDICAID
--- OUTSIDE RECORDS SUMMARY | 2025-01-12 21:45 | XMS_ITS | Referral Summary ---
Author Organization [facility] Address [address] [place] [address] Care Team Providers Care Human Resources Clerk Name Role Phone No, Physician Primary Care Provider [phone] Encounters Date Type Department Care Team Description 01/06/2025 2:01 PM CDT - 01/09/2025 3:55 PM CDT Hospital Encounter [facility] [address] [place] [id number] Filipe Claros MD L'Ecuyer, Suzanne, MD de Leon, Kelly Smith MD Unspecified depressive disorder [F32.A] (Primary Dx); Chronic pericarditis [I31.9]; Cannabis use disorder, moderate, dependence (HCC) [F12.20] Discharge Disposition: Discharge to home or self care 01/06/2025 12:57 PM CDT - 01/06/2025 11:59 PM CDT Hospital Encounter [facility] Discharge Disposition: Discharge to home or self care 01/06/2025 12:47 AM CDT - 01/06/2025 12:58 PM CDT Emergency [facility] Emergency Department [address] [place] [id number] Jose Sullivan MD Zozula, Jaskaran Macdonald MD Suicidal ideation (Primary Dx) Discharge Disposition: Discharge to psych hospital or psych unit 01/04/2025 [facility] Post Discharge Follow up phone call [facility] Surgery Care [address] [place] [address] Anastasiia Montano 01/01/2025 10:08 PM CDT - 01/02/2025 2:26 AM CDT Emergency [facility] Emergency Department [address] [place] [address] Irina Yeager MD Suicidal ideation (Primary Dx) Discharge Disposition: Discharge to home or self care 12/29/2024 10:58 PM CDT - 12/30/2024 4:10 PM CDT Hospital Encounter [facility] IMU [address] [place] [id number] Jose Sullivan MD Fasick, Victoria Rose, DO Richards, John Albert Jr., MD Chest pain, unspecified type (Primary Dx); Other chest pain; Chronic pericarditis; Acute idiopathic pericarditis Discharge Disposition: Discharge to home or self care 12/20/2024 5:19 PM CDT - 12/21/2024 12:03 PM T [facility] Emergency Department [address] [place] [id number] Renetta Echols MD Suicidal ideation (Primary Dx) Discharge Disposition: Discharge to psych hospital or psych unit 11/04/2024 12:54 AM CDT - 11/04/2024 12:05 PM T [address] [address] Neel So MD Depression with suicidal ideation (Primary Dx); Abdominal pain; Amphetamine abuse (HCC); Sinus bradycardia Discharge Disposition: Discharge to psych hospital or psych unit from Last 3 Months Allergies No known [...] every 6 (six) hours as needed 5 Discontinu ed(Stop Taking at Discharge) ibuprofen (ADVIL,MOTRIN) 600 mg tablet Take 1 tablet (600 mg total) by mouth every 8 (eight) hours as needed for pain, fever or headaches 5 Discontinu ed(Stop Taking at Discharge) QUEtiapine (SEROquel) [...] 09/30/2024 Assessment & Plan (09/30/2024 9:09 AM CARPENTER ROUGH): Will try to obtain iron studies I asked SW to help w/ PCP followup Epigastric pain 09/30/2024 Assessment & Plan (09/30/2024 9:17 AM CARPENTER ROUGH): When asked where his pericarditis pain is, he points to the epigastrium. When I saw him in 11/2023, I had requested an H pylori stool antigen, which we were not able to obtain. -Try again to obtain H pylori antigen (especially w/ history of anemia) Depression 09/29/2024 Assessment & Plan (09/29/2024 1:17 PM CARPENTER ROUGH): As per psychiatry Will addon a TSH Pericarditis 09/29/2024 Assessment & Plan (09/30/2024 9:10 AM CARPENTER ROUGH): Currently asymptomatic. Will obtain EKG. Will restart colchicine if symptoms recurs EKG w/ diffuse ST elevation in II, III, aVF, and V1-6, with no SD depression This might also be early repolarization See my notes from 11/16/23 and 11/17/23 for my thought process then He has a case supervisor (Dr Rivera, in [place]) with whom he can follow up Routine general medical exam ination at a health care facility 09/29/2024 Assessment & Plan (09/29/2024 1:17 PM CARPENTER ROUGH): HIV, RPR negative Will recheck here Addon B12, TSH GERD (gastroesophageal reflux disease) Assessment & Plan (09/29/2024 1:18 PM CARPENTER ROUGH): Hold off PPI for now as he notes no symptoms of acid reflux. Low threshold to restart. The chest pain (when present) he notes is epigastric so that may be a component of GERD Renal lesion 09/29/2024 Assessment & Plan (09/30/2024 9:09 AM CARPENTER ROUGH): 11/02/23 CT: There are 3 low-attenuation lesions [...] follows w/ Dr Cat Choudhary (cardiology w/ [facility]), which he will follow up [...] 11/16/2023 Assessment & Plan (09/30/2024 9:11 AM CARPENTER ROUGH): B12 300, same as 11/2023. Will replete [...] 11/16/2023 Assessment & Plan (09/30/2024 9:11 AM CARPENTER ROUGH): Late latent, appropriately treated. See my 11/15/24 note Assessment & Plan (11/16/2023 1:25 PM CDT): As per my colleague Dr Bynum (see 09/07/23 medicine c/s note): - Has history of Syphilis, treated in 2013 , -Treponema ab + and RPR 1:4 on 08/29/23 when tested at [facility] Contacted [facility] ( [place] ) for info To see if titers are coming down , left message with Nurse ( [phone]): Called back received, Patient diagnosed with late latent syphilis at [facility] in [place] on 10-11 : +RPR titer 1 :256, treponema -EIA positive Completed treatment with benzathine penicillin G x 3 doses given on November 21 2013, November 28 2013 and December 052013 So appropriately treated Lumbar strain, initial encounter 09/16/2023 Anemia 09/08/2023 Assessment & Plan (09/08/2023 8:05 PM CARPENTER ROUGH): -possible hx of GI bleed in June, [...] disease) Assessment & Plan (09/08/2023 5:10 AM CARPENTER ROUGH): -continue pepcid Adjustment disorders, with mixed anxiety and dep ressed mood 09/07/2023 Assessment & Plan (09/08/2023 4:53 AM CARPENTER ROUGH): Per Psychiatry Cannabis use disorder, moderate, dependence 01/2024 Assessment & Plan (09/08/2023 4:53 AM CARPENTER ROUGH): Per Psychiatry History of syphilis 09/07/2023 Assessment & Plan (09/08/2023 12:28 PM CARPENTER ROUGH): - Has history of Syphilis, treated in 2013 , -Treponema ab + and RPR 1:4 on 08/29/23 when tested at [facility] Contacted [facility] ( [place] ) for info To see if titers are coming down , left message with Nurse ( [phone]): Called back received, Patient diagnosed with late latent syphilis at [facility] in [place] on 10-11 : +RPR titer 1 :256, [...] recs Assessment & Plan (07/27/2023 10:01 AM CARPENTER ROUGH): Wes has been struggling for the last 4 years with unstable realtionships, unstable housing, difficulty finding and maintaining employment, and in and out of long term/usp/probation. He says that he is sad about [...] Med recs apprec; h/o pericarditis Swer to [facility] with follow-up and dispo Assessment & Plan (07/26/2023 9:44 AM CARPENTER ROUGH): Wes has been struggling for the last 4 years with unstable realtionships, unstable housing, difficulty finding and maintaining employment, and in and out of long term/usp/probation. He says that he is sad about his grandmother passing, but is no longer suicidal because that's not what my mari would've wanted. He says that getting a [...] Med recs apprec; h/o pericarditis Swer to [facility] with follow-up and dispo Assessment & Plan (07/25/2023 12:24 PM CARPENTER ROUGH): Wes has been struggling for the last 4 years with unstable realtionships, unstable housing, difficulty finding and maintaining employment, and in and out of long term/usp/probation. He says that he is sad about his grandmother passing, but is no longer suicidal because that's not what my vanessany would've wanted. He says that getting a [...] Med recs apprec; h/o pericarditis Swer to [facility] with follow-up and dispo Assessment & [...] was started on Abilify and Depakote in [place], and reports that his visual and auditory hallucinations have resolved. - Start Sertraline 50mg, consider titrating - Obtain further information about the hallucinations - Haldol 5 p.o. or Haldol 5/Ativan 2 IM PRN for agitation - Suicide/elopement/safety precautions - Therapeutic milieu - q15 min safety checks Asthma 05/22/2023 Assessment & Plan (09/29/2024 1:14 PM CARPENTER ROUGH): Mild. Prn albuterol Assessment & Plan (09/08/2023 5:12 AM CARPENTER ROUGH): - no PFTs available , currently not in exacerbation, - PRN albuteral Assessment & Plan (07/25/2023 10:37 AM CARPENTER ROUGH): Intermittent. No symptoms. Uses albuterol prn at [...] (11/04/2024): Added automatically from request for surgery [id number] Resolved Problems Problem Noted Date Diagnosed Date Resolved Date history of Pericarditis 09/07/202310/31 Assessment & Plan (09/08/2023 8:04 PM CARPENTER ROUGH): - patient has not been able to afford colchicine and reports benefit when getting doses in ED visits - continue colchicine 0.6 mg po BID and monitor for side effects, it should be held if nausea, vomiting, diarrhea -Hold NSAIDS as -he as not tolerated with significant Gi side effects -Patient was seen by Cardiology as outpatient on 09/02/2023 at [facility] and has [...] psychiatry Assessment & Plan (07/25/2023 10:36 AM CARPENTER ROUGH): Pt w/ hx of depression and anxiety presents w/ SI after grandmother passing. Didn't have intent or plan. Denies SI now -mgt per primary Immunizations Immunization Administration Dates Next Due Pneumococcal Conjugate Pcv20 01/07/2025 Social History Tobacco Use Types Packs/Day Years Used Date Smoking Tobacco: Some Days Cigarettes Tobacco Cessation:Ready to Q uit: Not Asked; Counseling Given: Not Answered Alcohol Use Standard Drinks/Week Comments Defer 0 (1 standard drink = 0.6 oz pur e alcohol) [facility] Utilities Answer Date Recorded In the past 12 months has e [employer], gas, oil, or water [employer] threatened to shut off services in your [...] How often do you attend chur or mandaeism services? Never 01/07/2025 Do you belong to any clubs o r organizations such as bahai groups, unions, fraternal or athletic groups, or [...] staff should administer the PHQ-9) 2 09/07/2023 [facility] - Occupational Stress [...] place to sleep or slept in a retirement (including now)? Yes 10/02/2023 Housing Stability Vital Sign Answer Pavel e Recorded In the last 12 months, was t here a time when you were not able to pay the mortgage or rent on time? No 01/07/2025 Number of Times Moved in the Last Year Not on fi le 01/07/2025 At any time in the past 12 m [facility], were you homeless or living in a retirement (including now)? No 01/07/2025 Personal Safety Answer [...] on file Legal Sex Male 5:49 PM CARPENTER ROUGH Gender Identity Not on file Sexual Orientation [...] Mass Index 24.21 01/06/2025 2:15 PM CDT Functional Status * Are you deaf or do you have serious difficulty hearing? Answer Date of Assessment Author No 01/07/2025 10:40 AM CDT Seema Quintero LCSW * Are you blind or do you have serious difficulty seeing, even when wearing glasses? Answer Date of Assessment Author No 01/07/2025 10:40 AM CDT Seema uQintero LCSW * Do you have serious difficulty walking or climbing stairs? Answer Date of Assessment Author No 01/07/2025 10:40 AM CDT Seema Quintero LCSW * Do you have serious difficulty dressing or bathing? Answer Date of Assessment Author No 01/07/2025 10:40 AM CDT Seema Quintero LCSW * Because of a physical, mental, or emotional condition, do you have serious difficulty doing errandsalone such as visiting the doctor? Answer Date of Assessment Author No 01/07/2025 10:40 AM CDT Seema Quintero LCSW Mental Status * Because of a physical, mental, or emotional condition, do you have serious difficulty concentrating, remembering, or making decisions? (5 years old or older) Answer Entry Date Author No 01/07/2025 10:40 AM CDT Seema Quintero LCSW Plan of Treatment Not on file [...] tendency for uric acid stone formation. Source: [facility] [employer] Current Interpretive Data was last revised on [...] AM CDT us Jose Sullivan MD LAB MICROBIOLOGY - GENERAL OR DERABLES Final Result [facility] ([facility]) [address] [facility] Department [place] [address] * (ABNORMAL) Drugs of Abuse Screen, Urine without Confirmation (01/06/2025 12:40 AM CDT) [facility] Amphetamine, ur Not Detected CutOff 500ng/mL [...] Methadone, ur Not Detected CutOff 300ng/mL [facility] ([place]) Comment: Interpretive Data - Methadone: Samples [...] to be used for Pain Management purposes. Jose Sullivan MD LAB URINE ORDERABLES Final Re sult Performing Organization Address [facility]/ZIP Co de Phone Number [facility] ([place]) [address] [facility] [place] [address] * (ABNORMAL) Urinalysis, microscopic only (01/06/2025 12:40 AM CDT) WBC, ur 11-20(A) 0 - 5 /HPF RBC, ur 6-10(A) 0 - 2 /HPF [facility] ([facility]) Epithelial cells, squamous, ur 1-5 0 - 5 /HPF [facility] ([place]) Mucous, ur Present(A) [facility] ([place]) Hyaline casts, ur 1-5 0 - 10 /LPF [facility] ([place]) Culture Reflex Comment Reflex to urine culture will be performed. [facility] ([place]) Urine 01/06/2025 12:4 0 AM CDT 01/06/2025 12:58 AM CDT us Jose Sullivan MD LAB URINE ORDERABLES Final Re sult Performing Organization Address City/[facility]/ZIP Co de Phone Number [facility] ([place]) [address] [place] [address] [place] [address] * Urine culture Urine (01/06/2025 12:40 AM CDT) Report Final Report: Less than 100,000 colonies/mL (clinically insignificant growth based on current clinical standards) Comment:Testing performed by : [facility], [address] [facility] [place]., [address] Organism (CLINICALLY INSIGNIFICANT GROWTH [facility] ([place]) Urine 01/06/2025 12:4 0 AM CDT 01/06/2025 6:07 AM CDT Narrative [facility] ([place]) - 01/07/2025 12:32 PM CDT Urine culture reflexed based upon urinalysis results. Testing performed by [facility] Microbiology Laboratory ([phone]) us Jose Sullivan MD LAB MICROBIOLOGY - GENERAL OR DERABLES Final Result Performing Organization Address City/[facility]/ZIP Co de Phone Number [facility] ([place]) [address] [facility] Department [place] [address] * COVID-19 Coronavirus RNA Nasopharyngeal (01/06/2025 12:32 AM CDT) COVID-19 RNA Negative Negative Nasopharyngeal 01/06/2025 12 :32 AM CDT 01/06/2025 12:47 AM CDT Narrative [facility] ([place]) - 01/06/2025 1:25 AM CDT Is the patient experiencing any symptoms consistent with COVID (eg. Fever, cough, shortness of breath)?->No What is the reason for testing?->Screening for semi-private room placement Interpretive data: Testing performed by [facility]. This test is performed using the ProFibrix Xpert Xpress CoV-2 plus assay. This is a real-time RT-PCR test intended for the qualitative detection of nucleic acid from the SARS-CoV-2. This assay has been cleared by the [place] Food and Drug administration. The performance characteristics have been verified by [facility]. Results must be considered in the clinical context, and a negative result does not rule out infection. Interpretive data last revised 2024. Interpretive data: Testing performed by [facility]. This test is performed using the ProFibrix Xpert Xpress CoV-2 plus assay. This is a real-time RT-PCR test intended for the qualitative detection of nucleic acid from the SARS-CoV-2. This assay has been cleared by the [place] Food and Drug administration. The performance characteristics have been verified by [facility]. Results must be considered in the clinical context, and a negative result does not rule out infection. Interpretive data last revised 2024. us Jose Sullivan MD LAB MICROBIOLOGY - GENERAL OR DERABLES Final Result [facility] ([place]) [address] [facility] Department [place] [address] * eGFR (01/06/2025 12:32 AM CDT) eGFR [...] LAB BLOOD ORDERABLES Final Re sult [facility] [address] [facility] Department [place] [address] * Differential, auto (01/06/2025 12:32 AM CDT) Neutrophil abs 5.57 1.50 - 6.50 K/cumm Imm gran abs 0.04 0.00 - 0.10 K/cumm [facility] ([place]) Lymphocyte abs 1.68 0.80 - 3.30 K/cumm [facility]) Monocyte abs 0.41 0.20 - 0.80 K/cumm [facility] ([place]) Eosinophil abs 0.13 0.00 - 0.50 K/cumm [facility] ([place]) Basophil abs 0.03 0.00 - 0.10 K/cumm [facility] Neutrophil pct 70.8 % [facility] ([place]) Comment: Interpretive Data Percent cell count reference ranges are not reported, since discordance with absolute values may lead to misinterpretation of CBC data. Current Interpretive Data was last revised on 2017. Imm gran pct 0.5 % [facility] ([place]) Comment: Interpretive Data Percent cell count reference ranges are not reported, since discordance with absolute values may lead to misinterpretation of CBC data. Current Interpretive Data was last revised on 2017. Lymphocyte pct 21.4 % [facility] ([place]) Comment: Interpretive Data Percent cell count reference ranges are not reported, since discordance with absolute values may lead to misinterpretation of CBC data. Current Interpretive Data was last revised on 2017. Monocyte pct 5.2 % [facility] ([place]) Comment: Interpretive Data Percent cell count [...] revised on 2017. Basophil pct 0.4 % [facility] ([place]) Comment: Interpretive Data Percent cell count reference ranges are not reported, since discordance with absolute values may lead to misinterpretation of CBC data. Current Interpretive Data was last revised on 2017. Blood 01/06/2025 12:3 2 AM CDT 01/06/2025 12:47 AM CDT us Jose Sullivan MD LAB BLOOD ORDERABLES Final Re sult [facility] ([place]) [address] [facility] Department [place] [address] * Thyroid Function [place] (01/06/2025 12:32 AM CDT) TSH 1.00 0.30 - 4.20 mcIUnit/mL Blood 01/06/2025 12:3 2 AM CDT 01/06/2025 12:47 AM CDT us Jose Sullivan MD LAB BLOOD ORDERABLES Final Re sult [facility] Department [place] [address] * CBC with auto differential (01/06/2025 12:32 AM CDT) WBC 7.86 3.80 - 9.90 K/cumm Hgb 13.4 13.0 - 17.5 g/dL [facility] ([place]) Hct 41.2 38.9 - 50.3 % [facility] ([place]) Plt 259 150 - 400 K/cumm [facility] ([place]) MPV 10.2 9.1 - 12.3 fL [facility] ([place]) RBC 4.65 4.30 - 5.80 M/cumm [facility] ([place]) MCV 88.6 81.3 - 96.4 fL [facility] ([place]) MCH 28.8 27.1 - 33.3 pg [facility] ([facility]) MCHC 32.5 32.3 - 35.7 g/dL [facility] ([place]) RDW CV 13.5 11.1 - 14.9 % [facility] ([place]) RDW SD 43.3 35.7 - 48.1 fL [facility] NRBC abs 0.00 0.00 - 0.01 K/cumm [facility] Blood Venous blood specimen / Unknown 01/06/2025 12:32 AM CDT 01/06/2025 12:47 AM CDT us Jose Sullivan MD LAB BLOOD ORDERABLES Final Re sult [facility] ([place]) [address] [facility] Department [place] [address] * Ethanol (01/06/2025 12:32 AM CDT) Ethanol <10 <=10 mg/dL Comment: Interpretive Data Legal limit of intoxication > or = 80 mg/dL Levels > or = 400 mg/dL are potentially TOXIC. Current interpretive data was last revised on 2018. Blood 01/06/2025 12:3 2 AM CDT 01/06/2025 12:47 AM CDT us Jose Sullivan MD LAB BLOOD ORDERABLES Final Re sult [facility] ([facility]) [address] [facility] Department [place] [address] * (ABNORMAL) Comprehensive metabolic panel (01/06/2025 12:32 [...] Protein, pl 7.4 6.5 - 8.5 g/dL [facility] Albumin 4.1 3.5 - 5.0 g/dL [facility] Alk phos 63 40 - 130 Units/L [facility] ALT 33 7 - 55 Units/L [facility] Comment: Hemolysis present. Results may be affected. Moderately Hemolyzed Specimen AST 34 10 - 50 Units/L [facility] Comment: Hemolysis present. Results may be affected. Moderately Hemolyzed Specimen Blood 01/06/2025 12:3 2 AM CDT 01/06/2025 12:47 AM CDT Jose Sullivan MD LAB BLOOD ORDERABLES Final Re sult [facility] ([place]) [address] [facility] Department [place] [address] * eGFR (01/01/2025 10:28 PM CDT) eGFR [...] ORDERABLES Final R esult [facility] [place] [address] * (ABNORMAL) Differential, auto (01/01/2025 10:28 PM CDT) Neutrophil abs 4.69 1.50 - 6.50 K/cumm Imm gran abs 0.02 0.00 - 0.10 K/cumm [facility] Lymphocyte abs 1.78 0.80 - 3.30 K/cumm [facility] Monocyte abs 0.87(H) 0.20 - 0.80 K/cumm [facility] Eosinophil abs 0.17 0.00 - 0.50 K/cumm [facility] Basophil abs 0.03 0.00 - 0.10 K/cumm [facility] Neutrophil pct 62.1 % [facility] Comment: Interpretive Data Percent cell count reference ranges are not reported, since discordance with absolute values may lead to misinterpretation of CBC data. Current Interpretive Data was last revised on 2017. Imm gran pct 0.3 % [facility] Comment: Interpretive Data Percent cell count reference ranges are not reported, since discordance with absolute values may lead to misinterpretation of CBC data. Current Interpretive Data was last revised on 2017. Lymphocyte pct 23.5 % [facility] Comment: Interpretive Data Percent cell count reference ranges are not reported, since discordance with absolute values may lead to misinterpretation of CBC data. Current Interpretive Data was last revised on 2017. Monocyte pct 11.5 % [facility] Comment: Interpretive Data Percent cell count reference ranges are not reported, since discordance with absolute values may lead to misinterpretation of CBC data. Current Interpretive Data was last revised on 2017. Eosinophil pct 2.2 % [facility] Comment: Interpretive Data Percent cell count reference ranges are not reported, since discordance with absolute values may lead to misinterpretation of CBC data. Current Interpretive Data was last revised on 2017. Basophil pct 0.4 % [facility] Comment: Interpretive Data Percent cell count reference ranges are not reported, since discordance with absolute values may lead to misinterpretation of CBC data. Current Interpretive Data was last revised on 2017. Blood 01/01/2025 10:2 8 PM CDT 01/01/2025 10:35 PM CDT us Irina Yeager MD LAB BLOOD ORDERABLES Final R esult [facility] [place] [address] * (ABNORMAL) Urinalysis reflex to microscopic (01/01/2025 10:28 PM CDT) Color, ur Yellow Yellow Clarity, ur Clear Clear [facility] Specific gravity, ur 1.027 1.003 - 1.030 [facility] pH, urine 6.0 [facility] Comment: Interpretive Data U rine pH is affected by diet, medications, systemic acid-base disturbances, and renal tubular function. pH may affect urinary stone formation. For example, urine pH below 6.0 may help reduce the tendency for calcium phosphate stones and pH greater than 6.0 may reduce the tendency for uric acid stone formation. Source: [facility] Current Interpretive Data was last revised on 2017 Protein, ur ql 1+(A) Negative [facility] Glucose, ur ql Negative Negative [facility] Ketones, ur Negative Negative [facility] Bilirubin, ur Negative Negative [facility] Blood, ur 2+(A) Negative [facility] Urobilinogen, ur <2.0 <2.0 mg/dL [facility] Nitrite, ur Negative Negative [facility] Leukocyte esterase, ur Negative Negative [facility] UA reflex comment Reflex to microscopic UA will be performed. [facility] Urine 01/01/2025 10:2 8 PM CDT 01/01/2025 10:33 PM CDT us Irina Yeager MD LAB URINE ORDERABLES Final R esult [facility] [place] [address] * CBC with auto differential (01/01/2025 10:28 PM CDT) Pathologist [facility] WBC 7.56 3.80 - 9.90 K/cumm Hgb 14.8 13.0 - 17.5 g/dL [facility] Hct 45.4 38.9 - 50.3 % [facility] Plt 308 150 - 400 K/cumm [facility] MPV 10.1 9.1 - 12.3 fL [facility] RBC 5.26 4.30 - 5.80 M/cumm [facility] MCV 86.3 81.3 - 96.4 fL [facility] MCH 28.1 27.1 - 33.3 pg [facility] MCHC 32.6 32.3 - 35.7 g/dL [facility] RDW CV 13.4 11.1 - 14.9 % [facility] RDW SD 42.3 35.7 - 48.1 fL [facility] NRBC abs 0.00 0.00 - 0.01 K/cumm [facility] Blood Venous blood specimen / Unknown 01/01/2025 10:28 PM CDT 01/01/2025 10:35 PM CDT Irina Yeager MD LAB BLOOD ORDERABLES Final R esult [facility] [place] [address] * (ABNORMAL) Urinalysis, microscopic only (01/01/2025 10:28 PM CDT) Pathologist [facility] WBC, ur 0-5 0 - 5 /HPF RBC, ur >50(A) 0 - 2 /HPF [facility] Mucous, ur Present(A) [facility] Urine 01/01/2025 10:2 8 PM CDT 01/01/2025 10:33 PM CDT Irina Yeager MD LAB URINE ORDERABLES Final R esult Performing Organization Address City/[facility]/ZIP Co de Phone Number [facility] Department [place] [address] * Lipase (01/01/2025 10:28 PM CDT) Lipase 26 10 - 99 Units/L Blood Venous blood specimen / Unknown 01/01/2025 10:28 PM CDT 01/01/2025 10:34 PM CDT Irina Yeager MD LAB BLOOD ORDERABLES Final R esult Performing Organization Address [facility] Co de Phone Number [facility] [place] [address] * (ABNORMAL) Creatine kinase (CK), total (01/01/2025 10:28 PM CDT) CK 632(H) 40 - 300 Units/L Blood 01/01/2025 10:2 8 PM CDT 01/01/2025 10:34 PM CDT Irina Yeager MD LAB BLOOD ORDERABLES Final R esult Performing Organization Address City/[facility] Co de Phone Number [facility] Department [place] [address] * Acetaminophen level (01/01/2025 10:28 PM CDT) Acetaminophen <5 <=5 mcg/mL Comment: Interpretive Data Significant hepatic injury may occur and treatment with n-acetyl cysteine is generally recommended if the acetaminophen level exceeds: 150 mcg/mL at 4 hours after ingestion 75 mcg/mL at 8 hours after ingestion 38 mcg/mL at 12 hours after ingestion 19 mcg/mL at 16 hours after ingestion Consult toxicology or poison control ([phone]) for unknown ingestion time. Current interpretive data was last revised 2023. Blood 01/01/2025 10:2 8 PM CDT 01/01/2025 10:34 PM CDT Maye Pradhan GLUE JOINTER OPERATOR LAB BLOOD ORDERABLES Final Result Performing Organization Address [facility] de Phone Number [facility] [place] [address] * Salicylate level (01/01/2025 10:28 PM CDT) Salicylate <9.0 <=9.0 mg/dL Comment: Interpretive Data Toxic: 30 mg/dL or greater. Current interpretive data was last revised 2023. Blood 01/01/2025 10:2 8 PM CDT 01/01/2025 10:34 PM CDT Maye Pradhan GLUE JOINTER OPERATOR LAB BLOOD ORDERABLES Final Result Performing Organization Address [facility] de Phone Number [facility] [place] [address] * (ABNORMAL) Valproic acid level, total (01/01/2025 10:28 PM CDT) Valproic Acid <15.0(L) 50.0 - 100.0 mcg/mL [...] BLOOD ORDERABLES Final Result Performing Organization Address [facility] de Phone Number [facility] [place] [address] * Comprehensive metabolic panel (01/01/2025 10:28 PM CDT) Sodium 141 135 - 145 mmol/L Potassium, pl 4.0 3.3 - 4.9 mmol/L [facility] Comment:Hemolyzed; Potassium value may be falsely elevated by as much as 0.3-0.5 mmol/L. Suggest redraw and reanalysis. Chloride 105 97 - 110 mmol/L [facility] CO2 26 22 - 32 mmol/L [facility] Anion gap 10 2 - 15 mmol/L [facility] BUN 10 6 - 25 mg/dL [facility] Creatinine 1.24 0.80 - 1.30 mg/dL [facility] Glucose 123 70 - 199 mg/dL [facility] Comment: Interpretive Data Fasting glucose >/= [...] 2022. Calcium 9.8 8.5 - 10.3 mg/dL [facility] Bilirubin, total 0.2 0.1 - 1.2 mg/dL [facility] Protein, pl 8.1 6.5 - 8.5 g/dL [facility] Albumin 4.3 3.5 - 5.0 g/dL [facility] Alk phos 78 40 - 130 Units/L [facility] ALT 40 7 - 55 Units/L [facility] AST 47 10 - 50 Units/L [facility] Comment:Hemolyzed; result ma y be falsely elevated Blood 01/01/2025 10:2 8 PM CDT 01/01/2025 10:34 PM CDT Irina Yeager MD LAB BLOOD ORDERABLES Final R esult [facility] Department of Laboratories [place], [place] [id number] * ANUSHKA screen w/rflx FLIP+dsDNA (12/30/2024 11:56 AM CDT) ANUSHKA Negative Comment: Interpretive Data Normal range for ANUSHKA Qualitative Antibody = Negative. 1. ANUSHKA is performed using indirect immunofluorescence against HEp-2 [...] last revised on 2020. Testing performed by: [facility], [address] [place] [address], [place]., [address] Blood 12/30/2024 11:5 6 AM CDT 12/30/2024 3:00 PM CDT us Navarro Zuleta Jr., MD LAB BLOOD ORDERABLE S Final Result Performing Organization Address City/[facility] Co de Phone Number [facility] Department [place] [address] * HIV 1/2 Antibody plus p24 Antigen Blood (12/30/2024 11:56 AM CDT) HIV 1/2 ab + p24 ag Nonreactive Nonreactive Comment: Nonreactive for HIV-1 antigen and HIV-1/HIV-2 antibodies. No laboratory evidence of HIV infection. If acute HIV infection is suspected, consider testing for HIV-1 RNA. Testing performed by: [facility], [address] [place] [address], [place]., [address] Blood 12/30/2024 11:5 6 AM CDT 12/30/2024 1:50 PM CDT us Navarro Zuleta Jr., MD LAB MICROBIOLOGY - GENERAL ORDERABLES Final Result [facility] ([place]) [facility] [place] [address] * RPR Blood (12/30/2024 11:56 AM CDT) [facility] RPR Nonreactive Nonreactive Comment:Testing performed by : [facility], [address] [place] [address], [place]., [address] Blood 12/30/2024 11:5 6 AM CDT 12/30/2024 1:50 PM CDT us Navarro Zuleta Jr., MD LAB MICROBIOLOGY - GENERAL ORDERABLES Final Result Performing Organization Address [facility] Co de Phone Number [facility] ([place]) 1 [facility] [place] [address] * Troponin T high-sensitivity 6-hour (12/30/2024 5:09 AM CDT) [facility] Trop T hs 20 <=22 ng/L Comment: Interpretive Data For further hscTnT resources including the diagnostic algorithm and an aid in interpretation, copy and paste this link: https://nrl.testcatalog.org/show/hsTrop Current Interpretive Data last revised 2020. Trop T hs delta -9 ng/L [facility] ([place]) Trop T hs interp Equivocal [facility] ([place]) Blood 12/30/2024 5:09 AM CDT 12/30/2024 5:12 AM CDT us Larissa Medellin MD LAB BLOOD ORDERABLES Vickie l Result [facility] ([place]) 1 [facility] [place] [address] * eGFR (12/30/2024 5:09 AM CDT) [facility] eGFR >90 >=60 mL/min/1. 73 m2 Comment: [...] DO LAB BLOOD ORDERABLES Fin al Result [facility] ([place]) [facility] Department [place] [address] * (ABNORMAL) Differential, auto (12/30/2024 5:09 AM [...] revised on 2017. Basophil pct 0.3 % [facility] ([place]) Comment: Interpretive Data Percent cell count reference ranges are not reported, since discordance with absolute values may lead to misinterpretation of CBC data. Current Interpretive Data was last revised on 2017. Blood 12/30/2024 5:09 AM CDT 12/30/2024 5:12 AM CDT us Kelly Knight DO LAB BLOOD ORDERABLES Fin al Result [facility] ([place]) [facility] Department [place] [address] * (ABNORMAL) CBC with auto differential (12/30/2024 5:09 AM CDT) WBC 6.66 3.80 - 9.90 K/cumm Hgb 13.3 13.0 - 17.5 g/dL [facility] ([place]) Hct 43.0 38.9 - 50.3 % [facility] ([place]) Plt 209 150 - 400 K/cumm [facility] ([place]) MPV 10.2 9.1 - 12.3 fL [facility] ([place]) RBC 4.71 4.30 - 5.80 M/cumm [facility] ([place]) MCV 91.3 81.3 - 96.4 fL [facility] ([place]) MCH 28.2 27.1 - 33.3 pg [facility] ([place]) MCHC 30.9(L) 32.3 - 35.7 g/dL [facility] ([place]) RDW CV 13.5 11.1 - 14.9 % [facility] ([place]) RDW SD 45.9 35.7 - 48.1 fL [facility] NRBC abs 0.00 0.00 - 0.01 K/cumm [facility] Blood 12/30/2024 5:09 AM CDT 12/30/2024 5:12 AM CDT Kelly Knight DO LAB BLOOD ORDERABLES Fin al Result [facility] ([place] [place] [address] * Phosphorus (12/30/2024 5:09 AM CDT) Phosphorus, pl 3.8 2.3 - 4.5 mg/dL Blood 12/30/2024 5:09 AM CDT 12/30/2024 5:12 AM CDT Kelly Knight DO LAB BLOOD ORDERABLES Fin al Result [facility] ([place]) 1 [facility] [place] [address] * Magnesium (12/30/2024 5:09 AM CDT) Magnesium 1.8 1.4 - 2.5 mg/dL Blood 12/30/2024 5:09 AM CDT 12/30/2024 5:12 AM CDT Kelly Michelle Fasick DO LAB BLOOD ORDERABLES Fin al Result [facility] ([place]) [facility] Department [place] [address] * Comprehensive metabolic panel (12/30/2024 5:09 AM [...] ORDERABLES Fin al Result Performing Organization Address [facility] Co de Phone Number [facility] ([place]) 1 [facility] [place] [address] * Erythrocyte sedimentation rate (12/30/2024 5:07 AM CDT) Erythrocyte sedimentation rate 11 1 - 15 mm/hr Blood 12/30/2024 5:07 AM CDT 12/30/2024 6:46 AM CDT Navarro Zuleta Jr., MD LAB BLOOD ORDERABLE S Final Result Performing Organization Address [facility] de Phone Number [facility] ([place]) 1 [place] [address] * CRP (acute phase) (12/30/2024 5:07 AM CDT) CRP <3.0 <=10.0 mg/L Blood 12/30/2024 5:07 AM CDT 12/30/2024 6:48 AM CDT Navarro Zuleta Jr., MD LAB BLOOD ORDERABLE S Final Result Performing Organization Address [facility] Co de Phone Number [facility] ([place]) 1 [facility] [place] [address] * (ABNORMAL) Troponin T high-sensitivity 2-hour (12/30/2024 12:43 AM CDT) Trop T hs 26(H) <=22 ng/L Comment: [...] ORDERABLES Vickie l Result Performing Organization Address [facility] Co de Phone Number [facility] ([place]) 1 [facility] [place] [address] * Lipase (12/30/2024 12:43 AM CDT) Lipase 25 10 - 99 Units/L Blood 12/30/2024 12:4 3 AM CDT 12/30/2024 1:46 AM CDT Kelly Knight DO LAB BLOOD ORDERABLES Fin al Result Performing Organization Address [facility] de Phone Number [facility] ([place]) 1 [facility] [place] [address] * ECG 12 lead (12/30/2024 12:32 AM CDT) 12/30/2024 12:3 2 AM CDT Narrative [facility] - 12/30/2024 7:25 AM CDT Vent Rate: 104 bpm RR Interval: 575 msec SD Interval: 159 msec QRS Duration: 109 msec QT Interval: 330 msec QTC Interval: 390 msec P-R-T [place]: 56 - 85 - -50 degrees IMPRESSION: SINUS TACHYCARDIA LEFT VENTRICULAR HYPERTROPHY AND ST-T CHANGE [VOLTAGE CRITERIA PLUS ST/T ABNORMALITY] ST ELEVATION, CONSIDER ANTERIOR INJURY [MARKED ST ELEVATION W/O NORMALLY INFLECTED T-WAVE IN V2-V5] ACUTE VT NO CHANGE FROM PREVIOUS TRACING NOTED Electronically Signed By: Skyler Waite MD Jose Sullivan MD ECG ORDERABLES Final Result [facility] * Urinalysis reflex to microscopic and culture Urine, bladder (12/30/2024 12:06 AM CDT) Color, ur Yellow Yellow Clarity, ur Clear Clear [facility] ([place]) Specific gravity, ur 1.020 1.003 - 1.030 [...] tendency for uric acid stone formation. Source: [facility] [employer] Current Interpretive Data was last revised on [...] :06 AM CDT 12/30/2024 12:11 AM CDT us Jose Sullivan MD LAB MICROBIOLOGY - GENERAL OR DERABLES Final Result [facility] ([place]) [facility] Department [place] [address] * (ABNORMAL) Drugs of Abuse Screen, Urine [...] CDT 12/30/2024 12:11 AM CDT Narrative [facility] ([place]) - 12/30/2024 12:55 AM CDT Drug of Abuse screening is performed by immunoassay for medical purposes only. This is not to be used for Pain Management purposes. us Jose Sullivan MD LAB URINE ORDERABLES Final Re sult [facility] ([place]) [facility] Department [place] [address] * ECG 12 lead (12/29/2024 11:58 PM CDT) 12/29/2024 11:5 8 PM CDT Narrative [facility] - 12/30/2024 7:27 AM CDT Vent Rate: 116 bpm RR Interval: 516 msec SD Interval: 163 msec QRS Duration: 106 msec QT Interval: 321 msec QTC Interval: 390 msec P-R-T [place]: 64 - 85 - -64 degrees IMPRESSION: SINUS TACHYCARDIA LEFT VENTRICULAR HYPERTROPHY AND ST-T CHANGE [VOLTAGE CRITERIA PLUS ST/T ABNORMALITY] ST ELEVATION, CONSIDER ANTERIOR INJURY [MARKED ST ELEVATION W/O NORMALLY INFLECTED T-WAVE IN V2-V5] ACUTE VT Compared to prior EKG, heart rate has increased Electronically Signed By: Skyler Waite MD us Jose Sullivan MD ECG ORDERABLES Final Result [facility] * CT Chest PE (CTA) W Contrast [...] Electronically signed by Richi Farr M.D. KT: KT Report ID: [id number] Reading Location: [id number] Procedure Note Richi Farr MD - 12/30/2024 [...] 12:22 AM - Electronically signed by Richi Frar M.D. KT: NANNETTE Report ID: [id number] Reading Location: [id number] us Jose Sullivan MD IM CT PROCEDURES Final Resul t * XR [...] Sam M.D. AR: JOHN PAUL Report ID: [id number] Reading Location: [id number] Procedure Note Jaskaran Sam MD - 12/29/2024 [...] Sam M.D. AR: JOHN PAUL Report ID: [id number] Reading Location: [place] [address] us Jose Sullivan MD IMG XR PROCEDURES [...] BLOOD ORDERABLES Final Re sult [facility] [place] [place] [address] * eGFR (12/29/2024 11:09 PM [...] Inclusion of Race in Diagnosing Kidney Disease, JAGDISHSRome 2020). The CKD-EPI equation should not be used for patients with unstable renal function and has not been validated in children and those over 70. Current interpretive data was last reviewed 2021. Blood 12/29/2024 11:0 9 PM CDT 12/29/2024 11:15 PM CDT Larissa Medellin MD LAB BLOOD ORDERABLES Vickie elba Result [facility] ([place] Department [place] [address] * Differential, auto (12/29/2024 11:09 PM CDT) Neutrophil abs 5.64 1.50 - 6.50 K/cumm Imm gran abs 0.03 0.00 - 0.10 K/cumm [facility] ([place]) Lymphocyte abs 1.06 0.80 - 3.30 K/cumm [facility] ([place]) Monocyte abs 0.77 0.20 - 0.80 K/cumm [facility] ([place]) Eosinophil abs 0.03 0.00 - 0.50 K/cumm [facility] ([place]) Basophil abs 0.02 0.00 - 0.10 K/cumm [facility] ([place]) Neutrophil pct 74.7 % [facility] ([place]) Comment: Interpretive Data Percent cell count reference ranges are not reported, since discordance with absolute values may lead to misinterpretation of CBC data. Current Interpretive Data was last revised on 2017. Imm gran pct 0.4 % [facility] ([place]) Comment: Interpretive Data Percent cell count reference ranges are not reported, since discordance with absolute values may lead to misinterpretation of CBC data. Current Interpretive Data was last revised on 2017. Lymphocyte pct 14.0 % [facility] ([place] Comment: Interpretive Data Percent cell count reference ranges are not reported, since discordance with absolute values may lead to misinterpretation of CBC data. Current Interpretive Data was last revised on 2017. Monocyte pct 10.2 % [facility] ([place] Comment: Interpretive Data Percent cell count reference ranges are not reported, since discordance with absolute values may lead to misinterpretation of CBC data. Current Interpretive Data was last revised on 2017. Eosinophil pct 0.4 % [facility] ([place]) Comment: Interpretive [...] MD LAB BLOOD ORDERABLES Vickie l Result [facility] ([place] 1 [facility] [place] [address] * (ABNORMAL) Thyroid Function [place] (12/29/2024 11:09 PM CDT) TSH 0.17(L) 0.30 - 4.20 mcIUnit/mL Blood 12/29/2024 11:0 9 PM CDT 12/30/2024 9:14 AM CDT us Jose Sullivan MD LAB BLOOD ORDERABLES Edited R esult - Final [facility] [place] [address] * CBC with auto differential (12/29/2024 11:09 [...] ([place]) MCV 86.4 81.3 - 96.4 fL [facility] ([place]) MCH 28.3 27.1 - 33.3 pg [facility] ([place]) MCHC 32.8 32.3 - 35.7 g/dL [facility] ([place]) RDW CV 13.3 11.1 - 14.9 % [facility] ([place]) RDW SD 42.5 35.7 - 48.1 fL [facility] ([place]) NRBC abs 0.00 0.00 - 0.01 K/cumm [facility] ([place]) Blood 12/29/2024 11:0 9 PM CDT 12/29/2024 11:15 PM CDT us Jose Sullivan MD LAB BLOOD ORDERABLES Final Re sult Performing Organization Address [facility] Co de Phone Number [facility] ([place] 1 [facility] [employer] [place] [id number] * T3, free (12/29/2024 11:09 PM CDT) Free T3 3.9 2.0 - 4.4 pg/mL Comment:Testing performed by : [facility], [address] [place] [address]., [address] Blood 12/29/2024 11:0 9 PM CDT 12/30/2024 9:14 AM CDT Narrative [facility] ([place] - 12/30/2024 9:57 AM CDT This test was reflexed from a T4 result. us Jose Sullivan MD LAB BLOOD ORDERABLES Final Re sult Performing Organization Address City/[facility]/ZIP Co de Phone Number [facility] ([place]) [address] [place] [address] * T4, free (12/29/2024 11:09 PM CDT) [facility] Free T4 1.07 0.90 - 1.70 ng/dL Blood 12/29/2024 11:0 9 PM CDT 12/30/2024 9:14 AM CDT Narrative [facility] ([place]) - 12/30/2024 9:57 AM CDT This test was reflexed from a TSH result. Jose Sullivan MD LAB BLOOD ORDERABLES Edited R esult - Final [facility] ([place]) 1 [place] [address] * Magnesium (12/29/2024 11:09 PM CDT) [facility] Magnesium 1.6 1.4 - 2.5 mg/dL Blood 12/29/2024 11:0 9 PM CDT 12/29/2024 11:15 PM CDT us Jose Sullivan MD LAB BLOOD ORDERABLES Final Re sult [facility] [address] [place] [address] * Comprehensive metabolic panel (12/29/2024 11:09 PM CDT) [facility] Sodium 137 135 - 145 mmol/L Potassium, pl 4.2 3.3 - 4.9 mmol/L [facility] ([place]) Chloride 99 97 - 110 mmol/L [facility] ([place] CO2 24 22 - 32 mmol/L [facility] [place]) Anion gap 14 2 - 15 mmol/L [facility] ([place] BUN 8 6 - 25 mg/dL [facility] ([place]) Creatinine 1.04 0.80 - 1.30 mg/dL [facility] ([place] Glucose 126 70 - 199 mg/dL [facility] ([place]) [...] LAB BLOOD ORDERABLES Final Re sult [facility] ([place]) [facility] Department [place] [address] * (ABNORMAL) Urinalysis reflex to microscopic and culture Urine (12/20/2024 5:19 PM CDT) Color, ur Yellow Yellow Comment:Testing performed by : [address] [address] Clarity, ur Clear Clear [facility] Comment:Testing performed by : [address] [address] Specific gravity, ur 1.032(H) 1.003 - 1.030 [facility] Comment:Testing performed by : [facility], [address] [place] [address]., [address] pH, urine 6.5 [facility] Comment: Interpretive Data U rine pH is affected by diet, medications, systemic acid-base disturbances, and renal tubular function. pH may affect urinary stone formation. For example, urine pH below 6.0 may help reduce the tendency for calcium phosphate stones and pH greater than 6.0 may reduce the tendency for uric acid stone formation. Source: [facility] [employer] Current Interpretive Data was last revised on 2017 Testing performed by: [facility], [address] [place] [address], [place]., [address] Protein, ur ql Trace(A) Negative [facility] Comment:Testing performed by : [address], [place]., [address] Glucose, ur ql Negative Negative [facility] Comment:Testing performed by : [address], [place]., [address] Ketones, ur Trace(A) Negative [facility] Comment:Testing performed by : [address], [place]., [address] Bilirubin, ur Negative Negative [facility] Comment:Testing performed by : [address], [place]., [address] Blood, ur 1+(A) Negative [facility] Comment:Testing performed by : [address], [place]., [address] Urobilinogen, ur 2.0(A) <2.0 mg/dL [facility] Comment:Testing performed by : [address] [address] Nitrite, ur Negative Negative [facility] Comment:Testing performed by : [address], [place]., [address] Leukocyte esterase, ur Negative Negative [facility] Comment:Testing performed by : [address] [address] UA reflex comment Reflex to microscopic UA will be performed. [facility] Comment:Testing performed by : [address], [place]., [address] Urine 12/20/2024 5:19 PM CDT 12/20/2024 5:25 PM CDT us Renetta Echols MD LAB MICROBIOLOGY - GENER AL ORDERABLES Final Result [facility] [address] [facility] Department [place] [address] * (ABNORMAL) Drugs of Abuse Screen, Urine without Confirmation (12/20/2024 5:19 PM CDT) Amphetamine, ur Not Detected CutOff 500ng/mL Comment: Interpretive Data - Amphetamines: Samples containing greater than 500 ng/mL d-methamphetamine or other cross-reacting amphetamine compounds are reported as positive. Amphetamine immunoassays are subject to significant false positive rates due to cross-reactivity of non-amphetamine drugs. Confirmatory testing required for definitive results. Current Interpretive Data was last reviewed 2023. Testing performed by: [address] [address] Barbiturates, ur Not Detected CutOff 200ng/mL [facility] Comment: Interpretive Data - Barbiturates: Samples containing greater than 200 ng/mL secobarbital or other cross-reacting barbiturate compounds are reported as positive. False positive and false negative results are possible. Confirmatory testing required for definitive results. Current Interpretive Data was last reviewed 2023. Testing performed by: [facility], [address] [place] [address]., [address] Benzodiazepines, ur Not Detected CutOff 100ng/mL [facility] Comment: Interpretive Data - Benzodiazepines: Samples containing greater than 100 ng/mL nordiazepam or other cross-reacting compounds are reported as positive. False positive and false negative results are possible. Confirmatory testing required for definitive results. Current Interpretive Data was last reviewed 2023. Testing performed by: [address] [address] Cannabinoids, ur Screen Positive, presumptive (A) CutOff 50 ng/mL [facility] Comment: Interpretive Data - Cannabinoids: Samples containing greater than 50 ng/mL delta-9 THC -COOH or other cross- reacting compounds are reported as positive. False positive and false negative results are possible. Confirmatory testing required for definitive results. Current Interpretive Data was last reviewed 2023. Testing performed by: [address] [address] Cocaine, ur Not Detected CutOff 150ng/mL [facility] Comment: Interpretive Data - Cocaine: Samples containing greater than 150 ng/mL benzoylecgonine or other cross- reacting compounds are reported as positive. False positive and false negative results are possible. Confirmatory testing required for definitive results. Current Interpretive Data was last reviewed 2023. Testing performed by: [address] [address] Fentanyl, Ur Not Detected Cutoff 1 ng/mL [facility] Comment: Interpretive Data - Fentanyl: Samples containing greater than 1 ng/mL fentanyl or other cross-reacting fentanyl compounds are reported as positive. False positive and false negative results are possible. Confirmatory testing required for definitive results. Current Interpretive Data was last reviewed 2023. Testing performed by: [address] [address] Methadone, ur Not Detected CutOff 300ng/mL [facility] Comment: Interpretive Data - Methadone: Samples containing greater than 300 ng/mL d,l-methadone or other cross-reacting compounds are reported as positive. False positive and false negative results are possible. Confirmatory testing required for definitive results. Current Interpretive Data was last reviewed 2023. Testing performed by: [address] [address] Opiates, ur Not Detected CutOff 300ng/mL [facility] Comment: Interpretive Data - Opiates: Samples containing greater than 300 ng/mL morphine or other cross-reacting compounds are reported as positive. False positive and false negative results are possible. Confirmatory testing required for definitive results. Current Interpretive Data was last reviewed 2023. Testing performed by: [address] [address] Oxycodone, ur Not Detected CutOff 100ng/mL [facility] Comment: Interpretive Data - Oxycodone: Samples containing greater than 100 ng/mL oxycodone or other cross-reacting compounds are reported as positive. False positive and false negative results are possible. Confirmatory testing required for definitive results. Current Interpretive Data was last reviewed 2023. Testing performed by: [address] [place] [address] Phencyclidine, ur Not Detected CutOff 25 ng/mL [facility] Comment: Interpretive Data - Phencyclidine: Samples containing greater than 25 ng/mL phencyclidine or other cross-reacting compounds are reported as positive. False positive and false negative results are possible. Confirmatory testing required for definitive results. Current Interpretive Data was last reviewed 2023. Testing performed by: [address] [address] Urine Creatinine 390 mg/dL [facility] Comment: Interpretive Data Urine Creatinine: < 10 mg/dL is extremely dilute = or > 10 but < 20 mg/dL is dilute = or > 20 mg/dL is normal Current Interpretive Data was last revised on 2017. Testing performed by: [address] [address] Urine 12/20/2024 5:19 PM CDT 12/20/2024 5:25 PM CDT Narrative [facility] - 12/20/2024 5:57 PM CDT Drug of Abuse screening is performed by immunoassay for medical purposes only. This is not to be used for Pain Management purposes. us Renetta Echols MD LAB URINE ORDERABLES Fin al Result [facility] [address] [facility] Department [place] [address] * (ABNORMAL) Urinalysis, microscopic only (12/20/2024 5:19 PM CDT) WBC, ur 0-5 0 - 5 /HPF Comment:Testing performed by : [address] [address] RBC, ur 11-20(A) 0 - 2 /HPF [facility] Comment:Testing performed by : [address] [address] Epithelial cells, squamous, ur 6-10(A) 0 - 5 /HPF [facility] Comment:Testing performed by : [address] [address] Mucous, ur Present(A) [facility] Comment:Testing performed by : [address] [address] Sperm, ur Present(A) [facility] Comment:Testing performed by : [address] [address] Culture Reflex Comment Reflex conditions for urine culture (WBC >10) not met. [facility] Comment:Testing performed by : [address] [address] Urine 12/20/2024 5:19 PM CDT 12/20/2024 5:25 PM CDT Renetta Echols MD LAB URINE ORDERABLES Fin al Result Performing Organization Address City/State/[facility] Co de Phone Number [facility] [address] [facility] Department [place] [address] * COVID-19 Coronavirus RNA Nasopharyngeal (12/20/2024 5:06 PM CDT) Pathologist [facility] COVID-19 RNA Negative Negative Comment:Testing performed by : [address] [address] Nasopharyngeal 12/20/2024 5: 06 PM CDT 12/20/2024 5:22 PM CDT Narrative [facility] - 12/20/2024 5:55 PM CDT Is the patient experiencing any symptoms consistent with COVID (eg. Fever, cough, shortness of breath)?->No What is the reason for testing?->Screening prior to Behavioral health admission Interpretive data Testing performed by [facility]. This test is performed using the ProFibrix Xpert Xpress CoV-2 plus assay. This is a real-time RT-PCR test intended for the qualitative detection of nucleic acid from the SARS-CoV-2. This assay has been cleared by the [place] Food and Drug administration. The performance characteristics have been verified by the [facility]. Results must be considered in the clinical context, and a negative result does not rule out infection. Interpretive data last revised 2024. Interpretive data Testing performed by [facility]. This test is performed using the ProFibrix Xpert Xpress CoV-2 plus assay. This is a real-time RT-PCR test intended for the qualitative detection of nucleic acid from the SARS-CoV-2. This assay has been cleared by the [place] Food and Drug administration. The performance characteristics have been verified by the [facility]. Results must be considered in the clinical context, and a negative result does not rule out infection. Interpretive data last revised 2024. Renetta Echols MD LAB MICROBIOLOGY - GENER AL ORDERABLES Final Result Performing Organization Address [facility] Co de Phone Number [facility]LL[facility] [address] Department [place] [address] * eGFR (12/20/2024 5:06 PM CDT) Pathologist [facility] eGFR >90 >=60 mL/min/1. 73 m2 Comment: [...] was last reviewed 2021. Testing performed by: [facility], [address] [place] [address]., [address] Blood 12/20/2024 5:06 PM CDT 12/20/2024 5:25 PM CDT Renetta Echols MD LAB BLOOD ORDERABLES Fin al Result Performing Organization Address City/[facility]/ZIP Co de Phone Number PR[facility]CILL[facility] [address] [facility] Department [place] [address] * Differential, auto (12/20/2024 5:06 PM CDT) Neutrophil abs 3.48 1.50 - 6.50 K/cumm Comment:Testing performed by : [address] [address] Imm gran abs 0.02 0.00 - 0.10 K/cumm [facility] Comment:Testing performed by : [address] [address] Lymphocyte abs 1.90 0.80 - 3.30 K/cumm [facility] Comment:Testing performed by : [address] [address] Monocyte abs 0.60 0.20 - 0.80 K/cumm [facility] Comment:Testing performed by : [address] [address] Eosinophil abs 0.17 0.00 - 0.50 K/cumm [facility] Comment:Testing performed by : [address] [address] Basophil abs 0.03 0.00 - 0.10 K/cumm [facility] Comment:Testing performed by : [address] [address] Neutrophil pct 56.2 % [facility] Comment: Interpretive Data Percent cell count reference ranges are not reported, since discordance with absolute values may lead to misinterpretation of CBC data. Current Interpretive Data was last revised on 2017. Testing performed by: [address] [address] Imm gran pct 0.3 % [facility] Comment: Interpretive Data Percent cell count reference ranges are not reported, since discordance with absolute values may lead to misinterpretation of CBC data. Current Interpretive Data was last revised on 2017. Testing performed by: [address] [address] Lymphocyte pct 30.6 % [facility] Comment: Interpretive Data Percent cell count reference ranges are not reported, since discordance with absolute values may lead to misinterpretation of CBC data. Current Interpretive Data was last revised on 2017. Testing performed by: [address] [address] Monocyte pct 9.7 % [facility] Comment: Interpretive Data Percent cell count reference ranges are not reported, since discordance with absolute values may lead to misinterpretation of CBC data. Current Interpretive Data was last revised on 2017. Testing performed by: [address] [address] Eosinophil pct 2.7 % [facility] Comment: Interpretive Data Percent cell count reference ranges are not reported, since discordance with absolute values may lead to misinterpretation of CBC data. Current Interpretive Data was last revised on 2017. Testing performed by: [address] [address] Basophil pct 0.5 % [facility] Comment: Interpretive Data Percent cell count reference ranges are not reported, since discordance with absolute values may lead to misinterpretation of CBC data. Current Interpretive Data was last revised on 2017. Testing performed by: [address] [address] Blood 12/20/2024 5:06 PM CDT 12/20/2024 5:25 PM CDT Renetta Echols MD LAB BLOOD ORDERABLES Fin al Result Performing Organization Address City/State/[facility] Co de Phone Number [facility] [address] [facility] Department [place] [address] * Thyroid Function [place] (12/20/2024 5:06 PM CDT) TSH 0.32 0.30 - 4.20 mcIUnit/mL Comment:Testing performed by : [address] [address] Blood 12/20/2024 5:06 PM CDT 12/20/2024 5:25 PM CDT Renetta Echols MD LAB BLOOD ORDERABLES Fin al Result [facility] [address] Department [place] [address] * CBC with auto differential (12/20/2024 5:06 PM CDT) WBC 6.20 3.80 - 9.90 K/cumm Comment:Testing performed by : [address] [address] Hgb 13.0 13.0 - 17.5 g/dL [facility] Comment:Testing performed by : [address] [address] Hct 39.6 38.9 - 50.3 % [facility] Comment:Testing performed by : [address] [address] Plt 245 150 - 400 K/cumm [facility] Comment:Testing performed by : [address] [address] MPV 9.7 9.1 - 12.3 fL [facility] Comment:Testing performed by : [address] [address] RBC 4.61 4.30 - 5.80 M/cumm [facility] Comment:Testing performed by : [address] [address] MCV 85.9 81.3 - 96.4 fL [facility] Comment:Testing performed by : [address] [address] MCH 28.2 27.1 - 33.3 pg [facility] Comment:Testing performed by : [address] [address] MCHC 32.8 32.3 - 35.7 g/dL [facility] Comment:Testing performed by : [address] [address] RDW CV 14.0 11.1 - 14.9 % [facility] Comment:Testing performed by : [address] [address] RDW SD 43.7 35.7 - 48.1 fL [facility] Comment:Testing performed by : [facility], [address] [place] [address]., [address] NRBC abs 0.00 0.00 - 0.01 K/cumm [facility] Comment:Testing performed by : [address] [address] Blood Venous blood specimen / Unknown 12/20/2024 5:06 PM CDT 12/20/2024 5:25 PM CDT Renetta Echols MD LAB BLOOD ORDERABLES Fin al Result Performing Organization Address [facility] Co de Phone Number LEON[address] [place] [place] [address] * Ethanol (12/20/2024 5:06 PM CDT) Ethanol <10 <=10 mg/dL Comment: Interpretive Data Legal limit of intoxication > or = 80 mg/dL Levels > or = 400 mg/dL are potentially TOXIC. Current interpretive data was last revised on 2018. Testing performed by: [facility], [address] [place] [address]., [address] Blood 12/20/2024 5:06 PM CDT 12/20/2024 5:25 PM CDT Renetta Echols MD LAB BLOOD ORDERABLES Fin al Result Performing Organization Address City/[facility] Co de Phone Number LEON[address] [place] [address] * Acetaminophen level (12/20/2024 5:06 PM CDT) [...] after ingestion Consult toxicology or poison control ([phone]) for unknown ingestion time. Current interpretive data was last revised 2023. Testing performed by: [address] [address] Blood 12/20/2024 5:06 PM CDT 12/20/2024 5:25 PM CDT Renetta Echols MD LAB BLOOD ORDERABLES Fin al Result Performing Organization Address [facility] Phone Number [address] [place] [address] * Salicylate level (12/20/2024 5:06 PM CDT) Pathologist [facility] Salicylate <1.0 <=1.0 mg/dL Comment: Interpretive Data Toxic: 30 mg/dL or greater. Current interpretive data was last revised 2023. Testing performed by: [address] [address] Blood 12/20/2024 5:06 PM CDT 12/20/2024 5:25 PM CDT Renetta Echols MD LAB BLOOD ORDERABLES Fin al Result Performing Organization Address [facility] de Phone Number [address] [address] * Comprehensive metabolic panel (12/20/2024 5:06 PM CDT) Pathologist [facility] Sodium 142 135 - 145 mmol/L Comment:Testing performed by : [address] [address] Potassium, pl 4.1 3.3 - 4.9 mmol/L [facility] MAURER Comment:Testing performed by : [address] [address] Chloride 106 97 - 110 mmol/L [facility] MAURER Comment:Testing performed by : [address] [address] CO2 24 22 - 32 mmol/L [facility] MAURER Comment:Testing performed by : [address] [address] Anion gap 12 2 - 15 mmol/L [facility] Comment:Testing performed by : [address] [address] BUN 9 6 - 25 mg/dL [facility] Comment:Testing performed by : [address] [address] Creatinine 1.10 0.80 - 1.30 mg/dL [facility] Comment:Testing performed by : [address] [address] Glucose 116 70 - 199 mg/dL [facility] Comment: Interpretive Data Fasting glucose >/= [...] was last revised 2022. Testing performed by: [address] [address] Calcium 9.0 8.5 - 10.3 mg/dL [facility] Comment:Testing performed by : [address] [address] Bilirubin, total 0.2 0.1 - 1.2 mg/dL [facility] Comment:Testing performed by : [address] [address] Protein, pl 7.1 6.5 - 8.5 g/dL [facility] Comment:Testing performed by : [address] [address] Albumin 4.1 3.5 - 5.0 g/dL [facility] Comment:Testing performed by : [address] [address] Alk phos 64 40 - 130 Units/L [facility] Comment:Testing performed by : [address] [address] ALT 15 7 - 55 Units/L [facility] Comment:Testing performed by : [facility], [address] [place] [address]., [address] AST 20 10 - 50 Units/L [facility] Comment:Testing performed by : [facility], [address] [place] [address]., [address] Blood 12/20/2024 5:06 PM CDT 12/20/2024 5:25 PM CDT us Renetta Echols MD LAB BLOOD ORDERABLES Fin al Result [facility] [address] [facility] Department [place] [address] * CT Abdomen Pelvis W Contrast (11/04/2024 [...] Farida Mahmood M.D. SN T: Report ID: [id number] Reading Location: [id number] Procedure Note Farida Mahmood MD - 11/04/2024 [...] Farida Mahmood M.D. SN T: Report ID: [id number] Reading Location: [place] [address] Neel So MD IM CT PROCEDURES Final [...] tendency for uric acid stone formation. Source: [employer] Current Interpretive Data was last revised on 2017 Protein, ur ql Negative Negative [facility] Glucose, ur ql Negative Negative [facility] Ketones, ur Negative Negative [facility] Bilirubin, ur Negative Negative [facility] Blood, ur Negative Negative [facility] Urobilinogen, ur <2.0 <2.0 mg/dL [facility] Nitrite, ur Negative Negative [facility] Leukocyte esterase, ur Negative Negative [facility] UA reflex comment Reflex conditions for microscopic UA and culture not met. [facility] Urine 11/04/2024 5:27 AM CDT 11/04/2024 5:30 AM CDT Neel So MD LAB MICROBIOLOGY - GENERAL ORDERABLES Final Result [facility] [address] Department [place] [address] * (ABNORMAL) Drugs of Abuse Screen, Urine without Confirmation (11/04/2024 5:27 AM CDT) Pathologist [facility] Amphetamine, ur Not Detected CutOff 500ng/mL Comment: Interpretive Data - Amphetamines: Samples containing greater than 500 ng/mL d-methamphetamine or other cross-reacting amphetamine compounds are reported as positive. Amphetamine immunoassays are subject to significant false positive rates due to cross-reactivity of non-amphetamine drugs. Confirmatory testing required for definitive results. Current Interpretive Data was last reviewed 2023. Barbiturates, ur Not Detected CutOff 200ng/mL [facility] Comment: Interpretive Data - Barbiturates: Samples containing greater than 200 ng/mL secobarbital or other cross-reacting barbiturate compounds are reported as positive. False positive and false negative results are possible. Confirmatory testing required for definitive results. Current Interpretive Data was last reviewed 2023. Benzodiazepines, ur Not Detected CutOff 100ng/mL [facility] Comment: Interpretive Data - Benzodiazepines: Samples containing greater than 100 ng/mL nordiazepam or other cross-reacting compounds are reported as positive. False positive and false negative results are possible. Confirmatory testing required for definitive results. Current Interpretive Data was last reviewed 2023. Cannabinoids, ur Screen Positive, presumptive (A) CutOff 50 ng/mL [facility] Comment: Interpretive Data - Cannabinoids: Samples containing greater than 50 ng/mL delta-9 THC -COOH or other cross- reacting compounds are reported as positive. False positive and false negative results are possible. Confirmatory testing required for definitive results. Current Interpretive Data was last reviewed 2023. Cocaine, ur Not Detected CutOff 150ng/mL [facility] Comment: Interpretive Data - Cocaine: Samples containing [...] 2023. Methadone, ur Not Detected CutOff 300ng/mL [facility] Comment: Interpretive Data - Methadone: Samples containing greater than 300 ng/mL d,l-methadone or other cross-reacting compounds are reported as positive. False positive and false negative results are possible. Confirmatory testing required for definitive results. Current Interpretive Data was last reviewed 2023. Opiates, ur Not Detected CutOff 300ng/mL [facility] Comment: Interpretive Data - Opiates: Samples containing greater than 300 ng/mL morphine or other cross-reacting compounds are reported as positive. False positive and false negative results are possible. Confirmatory testing required for definitive results. Current Interpretive Data was last reviewed 2023. Oxycodone, ur Not Detected CutOff 100ng/mL [facility] Comment: Interpretive Data - Oxycodone: Samples containing [...] AM CDT 11/04/2024 5:30 AM CDT Narrative [facility] - 11/04/2024 5:58 AM CDT Drug of Abuse screening is performed by immunoassay for medical purposes only. This is not to be used for Pain Management purposes. Neel So MD LAB URINE ORDERABLES Final Result Performing Organization Address [facility] de Phone Number LEON[address] [place] [address] * Troponin T high-sensitivity 2-hour (11/04/2024 4:17 AM CDT) Trop T hs 8 <=22 ng/L Comment: Interpretive Data For further hscTnT resources including the diagnostic algorithm and an aid in interpretation, copy and paste this link: https://nrl.testcatalog.org/show/hsTrop Current Interpretive Data last revised 2020. Trop T hs delta 1 ng/L [facility] Trop T hs interp Insignificant [facility] Blood 11/04/2024 4:17 AM CDT 11/04/2024 4:20 AM CDT Neel So MD LAB BLOOD ORDERABLES Final Result Performing Organization Address [facility] Co de Phone Number [address] [place] [address] * ABO / Rh Confirmation Testing (11/04/2024 4:17 AM CDT) ABO/Rh Confirmation NTD Pos [facility] Comment: 11/04/2024 04:48 [id number] Patient demonstrating mixed field reactions in the ABO typing due to unknown cause. ABO typing cannot be interpreted at this time. Blood 11/04/2024 4:17 AM CDT 11/04/2024 4:20 AM CDT Neel So MD LAB BLOOD ORDERABLES Final Result Performing Organization Address [facility] de Phone Number PRISCILLA [address] [address] MH * Troponin T high-sensitivity series (baseline, 2hr, 4hr, 6hr) (11/04/2024 1:26 AM CDT) Pathologist [facility] Trop T hs 7 <=22 ng/L Comment: Interpretive Data For further hscTnT resources including the diagnostic algorithm and an aid in interpretation, copy and paste this link: https://nrl.testcatalog.org/show/hsTrop Current Interpretive Data last revised 2020. Blood 11/04/2024 1:26 AM CDT 11/04/2024 2:41 AM CDT Neel So MD LAB BLOOD ORDERABLES Final Result Performing Organization Address [facility] de Phone Number PRISCILLA [address] [address] * Influenza A/B, RSV, and COVID-19 PCR Nasopharyngeal (11/04/2024 1:26 AM CDT) [facility] COVID-19 RNA Negative Negative Influenza A RNA Negative Negative [facility] Influenza B RNA Negative Negative [facility] RSV RNA Negative Negative [facility] Comment: Interpretive data: Testing performed by [facility]. This test is performed using the ProFibrix Xpert Xpress CoV-2/Flu/RSV plus assay. This is a multiplex, real-time reverse transcriptase PCR assay intended for the qualitative detection of nucleic acid from SARS-CoV-2, influenza A, influenza B, and respiratory syncytial virus. This assay has been cleared by the [place] Food and Drug administration. The performance characteristics have been verified by the [facility]. Results must be considered in the clinical context, and a negative result does not rule out infection. Interpretive Data last revised 2023 Nasopharyngeal 11/04/2024 1: 26 AM CDT 11/04/2024 1:30 AM CDT Narrative [facility] - 11/04/2024 2:20 AM CDT Is the Patient experiencing symptoms consistent with COVID?->Unknown Neel So MD LAB MICROBIOLOGY - GENERAL ORDERABLES Final Result Performing Organization Address [facility] de Phone Number PRISCILLA [address] [address] * (ABNORMAL) Lactate (11/04/2024 1:26 AM CDT) Lactate 0.4(L) 0.7 - 2.0 mmol/L Blood 11/04/2024 1:26 AM CDT 11/04/2024 1:30 AM CDT Neel So MD LAB BLOOD ORDERABLES Final Result Performing Organization Address [facility] Phone Number [address] [address] * eGFR (11/04/2024 1:26 AM CDT) eGFR [...] So MD LAB BLOOD ORDERABLES Final Result [facility] [address] [facility] Department [place] [address] * Differential, auto (11/04/2024 1:26 AM CDT) Pathologist [facility] Neutrophil abs 2.07 1.50 - 6.50 K/cumm Imm gran abs 0.00 0.00 - 0.10 K/cumm [facility] Lymphocyte abs 1.51 0.80 - 3.30 K/cumm [facility] Monocyte abs 0.53 0.20 - 0.80 K/cumm [facility] Eosinophil abs 0.14 0.00 - 0.50 K/cumm [facility] Basophil abs 0.01 0.00 - 0.10 K/cumm [facility] Neutrophil pct 48.7 % [facility] Comment: Interpretive Data Percent cell count reference ranges are not reported, since discordance with absolute values may lead to misinterpretation of CBC data. Current Interpretive Data was last revised on 2017. Imm gran pct 0.0 % [facility] Comment: Interpretive Data Percent cell count reference ranges are not reported, since discordance with absolute values may lead to misinterpretation of CBC data. Current Interpretive Data was last revised on 2017. Lymphocyte pct 35.4 % [facility] Comment: Interpretive Data Percent cell count reference ranges are not reported, since discordance with absolute values may lead to misinterpretation of CBC data. Current Interpretive Data was last revised on 2017. Monocyte pct 12.4 % [facility] Comment: Interpretive Data Percent cell count reference ranges are not reported, since discordance with absolute values may lead to misinterpretation of CBC data. Current Interpretive Data was last revised on 2017. Eosinophil pct 3.3 % [facility] Comment: Interpretive Data Percent cell count reference ranges are not reported, since discordance with absolute values may lead to misinterpretation of CBC data. Current Interpretive Data was last revised on 2017. Basophil pct 0.2 % [facility] Comment: Interpretive Data Percent cell count reference ranges are not reported, since discordance with absolute values may lead to misinterpretation of CBC data. Current Interpretive Data was last revised on 2017. Blood 11/04/2024 1:26 AM CDT 11/04/2024 1:30 AM CDT Neel So MD LAB BLOOD ORDERABLES Final Result Performing Organization Address [facility] de Phone Number [address] [place] [address] * Thyroid Function [place] (11/04/2024 1:26 AM CDT) [facility] TSH 0.41 0.30 - 4.20 mcIUnit/mL Blood 11/04/2024 1:26 AM CDT 11/04/2024 1:30 AM CDT Neel So MD LAB BLOOD ORDERABLES Final Result Performing Organization Address [facility] de Phone Number [address] [place] [address] * (ABNORMAL) CBC with auto differential (11/04/2024 1:26 AM CDT) [facility] WBC 4.26 3.80 - 9.90 K/cumm Hgb 13.0 13.0 - 17.5 g/dL [facility] Hct 40.9 38.9 - 50.3 % [facility] Plt 216 150 - 400 K/cumm [facility] MPV 9.6 9.1 - 12.3 fL [facility] RBC 4.69 4.30 - 5.80 M/cumm [facility] MCV 87.2 81.3 - 96.4 fL [facility] MCH 27.7 27.1 - 33.3 pg [facility] MCHC 31.8(L) 32.3 - 35.7 g/dL [facility] RDW CV 13.6 11.1 - 14.9 % [facility] RDW SD 43.1 35.7 - 48.1 fL [facility] NRBC abs 0.00 0.00 - 0.01 K/cumm [facility] Blood 11/04/2024 1:26 AM CDT 11/04/2024 1:30 AM CDT Neel So MD LAB BLOOD ORDERABLES Final Result Performing Organization Address [facility] Co de Phone Number [address] [place] [address] * ABO/Rh (11/04/2024 1:26 AM CDT) ABO/Rh NTD Pos Comment: 11/04/2024 04:45 [id number] Patient demonstrating mixed field reactions in the ABO typing due to unknown cause. ABO typing cannot be interpreted at this time. Blood 11/04/2024 1:26 AM CDT 11/04/2024 1:30 AM CDT Narrative [facility] - 11/04/2024 4:47 AM CDT Has the patient had Daratumumab or Isatuximab in the past 6 months?->Unknown Neel So MD LAB BLOOD BANK TEST ORDERA BLES Final Result Performing Organization Address [facility] de Phone Number [address] [place] [address] * aPTT (11/04/2024 1:26 AM CDT) aPTT 28 22 - 37 sec Comment: Interpretive data aPTT test has not been evaluated for monitoring heparin therapy. The anti-Xa is the preferred test. Current interpretive data was last revised on 2019. Blood 11/04/2024 1:26 AM CDT 11/04/2024 1:30 AM CDT Neel So MD LAB BLOOD ORDERABLES Final Result Performing Organization Address [facility] Co de Phone Number [address] [place] [address] * Protime-INR (11/04/2024 1:26 AM CDT) Pathologist [facility] PT 14.0 12.0 - 14.6 sec INR [...] 1:26 AM CDT 11/04/2024 1:30 AM CDT Result [facility] Neel So MD LAB BLOOD ORDERABLES Final Result Performing Organization Address [facility] de Phone Number [address] [place] [address] * Antibody screen (11/04/2024 1:26 AM CDT) Pathologist [facility] Tanvi, indirect, Gel Interpretation Negative ABSC Blood 11/04/2024 1:26 AM CDT 11/04/2024 1:30 AM CDT Narrative [facility] - 11/04/2024 4:47 AM CDT Has the patient had Daratumumab or Isatuximab in the past 6 months?->Unknown Result [facility] Neel So MD LAB BLOOD BANK TEST ORDERA BLES Final Result Performing Organization Address City/[facility] Co de Phone Number [address] [place] [address] * Phosphorus (11/04/2024 1:26 AM CDT) Pathologist [facility] Phosphorus, pl 2.9 2.3 - 4.5 mg/dL Blood 11/04/2024 1:26 AM CDT 11/04/2024 1:30 AM CDT Result [facility] Neel So MD LAB BLOOD ORDERABLES Final Result Performing Organization Address [facility] Co de Phone Number [address] [place] [address] * Magnesium (11/04/2024 1:26 AM CDT) Magnesium 1.7 1.4 - 2.5 mg/dL Blood 11/04/2024 1:26 AM CDT 11/04/2024 1:30 AM CDT Neel So MD LAB BLOOD ORDERABLES Final Result Performing Organization Address [facility] de Phone Number [address] [place] [address] * Lipase (11/04/2024 1:26 AM CDT) Lipase 36 10 - 99 Units/L Blood 11/04/2024 1:26 AM CDT 11/04/2024 1:30 AM CDT Neel So MD LAB BLOOD ORDERABLES Final Result Performing Organization Address [place] [facility] Phone Number [address] [place] [address] * Ethanol (11/04/2024 1:26 AM CDT) Ethanol <10 <=10 mg/dL Comment: Interpretive Data Legal limit of intoxication > or = 80 mg/dL Levels > or = 400 mg/dL are potentially TOXIC. Current interpretive data was last revised on 2018. Blood 11/04/2024 1:26 AM CDT 11/04/2024 1:30 AM CDT Neel So MD LAB BLOOD ORDERABLES Final Result Performing Organization Address [facility] Co de Phone Number [address] [place] [address] * (ABNORMAL) Comprehensive metabolic panel (11/04/2024 1:26 AM CDT) Pathologist [facility] Sodium 139 135 - 145 mmol/L Potassium, pl 4.3 3.3 - 4.9 mmol/L [facility] Chloride 106 97 - 110 mmol/L [facility] CO2 24 22 - 32 mmol/L [facility] Anion gap 9 2 - 15 mmol/L [facility] BUN 12 6 - 25 mg/dL [facility] Creatinine 1.10 0.80 - 1.30 mg/dL [facility] Glucose 91 70 - 199 mg/dL [facility] Comment: Interpretive Data Fasting glucose >/= [...] 2022. Calcium 8.1(L) 8.5 - 10.3 mg/dL [facility] Bilirubin, total 0.2 0.1 - 1.2 mg/dL [facility] Protein, pl 6.9 6.5 - 8.5 g/dL [facility] Albumin 4.0 3.5 - 5.0 g/dL [facility] Alk phos 64 40 - 130 Units/L [facility] ALT 20 7 - 55 Units/L [facility] AST 23 10 - 50 Units/L [facility] Blood 11/04/2024 1:26 AM CDT 11/04/2024 1:30 AM CDT us Neel So MD LAB BLOOD ORDERABLES Final Result [facility] [address] [facility] Department [place] [address] * ECG 12 lead (11/04/2024 1:07 AM CDT) [facility] Ventricular Rate EKG/Min 58 BPM [facility] Atrial Rate 58 BPM [facility] SD-Interval (MSEC) 162 ms [facility] QRS-Interval (MSEC) 110 ms [facility] QT-Interval (MSEC) 370 ms [facility] QTc 363 ms [facility] P [place] 17 degrees [facility] R [place] 78 degrees [facility] T [place] 55 degrees [facility] Diagnosis Sinus bradycardia with sinus arrhythmia Possible Left atrial enlargement Left ventricular hypertrophy ST elevation, consider early repolarization , pericarditis, or injury Abnormal ECG When compared with ECG of 07-OCT-2023 01:51, T wave inversion now evident in Anterior leads Confirmed by HARRY LI M.D. ([id number]) on 11/09/2024 1:32:02 PM [facility] 11/04/2024 1:07 AM CDT 11/09/2024 1:32 PM CDT us Neel So MD ECG ORDERABLES Final Resu lt [facility] from Last [address] [facility] Advance Directives For more information, please contact: [phone] * Full Code (Latest Code Status on [...] 6:32 AM 09/09/2023 5:23 PM Care Teams Human Resources Clerk Relationship Specialty Start Date End Date No, Physician PCP - General 11/30/20
[2025-01-12 21:47] VITALS: BP 133/76; PULSE 84; RESP 18; TEMP 36.7; O2SAT 98
--- NOTE | 2025-01-12 22:02 | ECG_ITS ---
Test Date: 2025-01-12 22:13:33 Measurements Intervals [place] Rate: 70 P: 33 WV: 167 QRS: 78 QRSD: 114 T: 21 QT: 372 QTc: 402 Interpretive Statements SINUS RHYTHM POSSIBLE LEFT ATRIAL ENLARGEMENT POSSIBLE LEFT VENTRICULAR HYPERTROPHY ST ELEVATION IN DIFFUSE LEADS- PROBABLY EARLY REPOLAIZATION ABNORMALITY BORDERLINE ECG Compared to ECG 12/18/2024 22:04:02 NO SIGNIFICANT CHANGE Electronically Signed On 01-13-2025 07:29:53 CDT by Juvenal Arteaga D.O.
[2025-01-12 22:13] LABS: Basophils Percent Auto 0.4 % (0.2-1.2); Eosinophils Absolute Auto 0.2 K/mm3 (0-0.3); Eosinophils Percent Auto 2.5 % (0-4.4); Hematocrit 39.4 % (42.0-52.0); Hemoglobin 12.5 g/dL (14.0-18.0); Immature Granulocyte Absolute 0.06 K/mm3 (0.00-0.031); Immature Granulocyte Percent A 0.8 % (0-0.5); Lymphocytes Absolute Auto 1.71 K/mm3 (0.9-3.2); Lymphocytes Percent Auto 22.7 % (18.3-44.2); Mean Corpuscular HGB Conc 31.7 g/dl (32-36); Mean Corpuscular Hemoglobin 27.8 pg (26-34); Mean Corpuscular Volume 87.6 fl (80-100); Mean Platelet Volume 9.3 fl (7.4-10.4); Monocytes Percent Auto 13.5 % (2.6-8.5); Neutrophils Absolute Auto 4.5 K/mm3 (1.3-6.7); Neutrophils Percent Auto 60.1 % (45.5-73.1); Platelet Count Result 226 k/mm3 (150-375); Red Cell Distribution Width 13.9 % (11.5-14.5); White Blood Count 7.5 K/mm3 (4.5-10.0)
[2025-01-12] MEDS: predniSONE 20 MG TABLET 40 MG PO (22:21)
[2025-01-12] MEDS: IPRATROPIUM BR 0.02% INH SOLN 0.5 MG/2.5 ML VIAL 1 MG INHALATION (22:22)
[2025-01-12] MEDS: ALBUTEROL SULFATE NEB 2.5 MG/3 ML INH 15 MG INHALATION (22:23)
--- OUTSIDE RECORDS SUMMARY | 2025-01-12 22:25 | XMS_ITS | Encounter Summary ---
Author Organization [facility] Address 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 AVG GLUCOSE, A1C 111 mg/dL 11/05/2024 9:48 AM CDT [facility] Blood 11/05/2024 6:48 AM CDT 11/05/2024 8:45 AM CDT Narrative [facility] - 11/05/2024 9:48 AM CDT HGB A1C INTERPRETATION NORMAL: <5.7% PRE-DIABETES: 5.7 - 6.4% DIABETES: 6.5% OR GREATER Ventura Brian MD CHEMISTRY ORDERABLES Final Res ult Performing Organization Address City/[facility]/ZIP Co de Phone Number [facility] [id number] [address] [place] [address] [phone] * GLUCOSE LEVEL (11/05/2024 6:48 AM CDT) GLUCOSE 91 70 - 115 mg/dL 11/05/2024 9:58 AM CDT [facility] Blood Collection / Unknown 11/05/2024 6:48 AM CDT 11/05/2024 8:45 AM CDT Ventura Brian MD CHEMISTRY ORDERABLES Final Res ult Performing Organization Address City/[facility]/ZIP Co de Phone Number [facility] [id number] [address] [place] [phone] * LIPID PANEL (11/05/2024 6:48 AM CDT) CHOLESTEROL 136 <200 mg/dL 11/05/2024 9:58 AM CDT [facility] TRIGLYCERIDE 69 <150 mg/dL 11/05/2024 9:58 AM CDT [facility] HDL 50 40 - 59 mg/dL 11/05/2024 9:58 AM CDT [facility] LDL CALCULATED 72 <100 mg/dL 11/05/2024 9:58 AM CDT [facility] NON-HDL CHOLESTEROL 86 <130 mg/dL 11/05/2024 9:58 AM CDT [facility] Blood Collection / Unknown 11/05/2024 6:48 AM CDT 11/05/2024 8:45 AM CDT Narrative [facility] - 11/05/2024 9:58 AM CDT TOTAL [...] ORDERABLES Final Res ult [facility] [id number] [address] [place] [address] [phone] documented in this encounter Visit Diagnoses Not on filedocumented in this encounter
--- OUTSIDE RECORDS SUMMARY | 2025-01-12 22:25 | XMS_ITS | Encounter Summary ---
Author Organization [facility] Address 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 AVG GLUCOSE, A1C 111 mg/dL 12/22/2024 7:21 AM CDT [facility] Blood Venipuncture / Unknown 12/22/2024 5:35 AM CDT 12/22/2024 6:18 AM CDT Pending sale to [facility]ORAT[facility] - 12/22/2024 7:21 AM CDT HGB A1C INTERPRETATION NORMAL: <5.7% PRE-DIABETES: 5.7 - 6.4% DIABETES: 6.5% OR GREATER us Ventura Brian MD CHEMISTRY ORDERABLES Final Res ult [facility] [id number] [address] [place] [address] * LIPID PANEL (12/22/2024 5:35 AM CDT) [facility] CHOLESTEROL 132 <200 mg/dL 12/22/2024 7:25 AM CDT [facility] TRIGLYCERIDE 83 <150 mg/dL 12/22/2024 7:25 AM CDT [facility] HDL 45 40 - 59 mg/dL 12/22/2024 7:25 AM CDT [facility] LDL CALCULATED 70 <100 mg/dL 12/22/2024 7:25 AM CDT [facility] NON-HDL CHOLESTEROL 87 <130 mg/dL 12/22/2024 7:25 AM T [facility] Blood Venipuncture / Unknown 12/22/2024 5:35 AM CDT 12/22/2024 6:[address] [facility] - 12/22/2024 7:25 AM CDT TOTAL [...] Brian MD CHEMISTRY ORDERABLES Final Res ult [facility] - [facility] [id number] [address] [place] [address] documented in this encounter Visit Diagnoses Not on filedocumented in this encounter
[2025-01-12 22:26] LABS: Alanine Aminotransferase 56 U/L (6-50); Albumin Level 3.9 g/dL (3.5-5.1); Alkaline Phosphatase 55 U/L (38-126); Anion Gap 6 mmol/L (4-12); Aspartate Amino Transferase 41 U/L (17-59); Bilirubin,Total 0.3 mg/dL (0.2-1.3); Blood Urea Nitrogen 12 mg/dL (9-20); Calcium 8.9 mg/dL (8.4-10.2); Carbon Dioxide 25 mmol/L (22-30); Chloride 108 mmol/L (98-107); Estimated CRCL calculation 88 ml/min; Estimated Glomerular Filt Rate > 60; Glucose 116 mg/dL (65-110); Potassium 3.9 mmol/L (3.4-5.0); Sodium 139 mmol/L (137-145); Total Protein 7.1 g/dL (6.3-8.2)
--- OUTSIDE RECORDS SUMMARY | 2025-01-12 22:26 | XMS_ITS | Clinical Summary ---
[facility] Address [address] [place] [address] Care Team Providers Care Brown Stock Washer Name Role Phone No, Physician Primary Care Provider [phone] Allergies No known active allergies Medications colchicine [...] 09/30/2024 Assessment & Plan (09/30/2024 9:09 AM WORK ORDER CLERK): Will try to obtain iron studies I asked SW to help w/ PCP followup Epigastric pain 09/30/2024 Assessment & Plan (09/30/2024 9:17 AM WORK ORDER CLERK): When asked where his pericarditis pain is, he points to the epigastrium. When I saw him in 11/2023, I had requested an H pylori stool antigen, which we were not able to obtain. -Try again to obtain H pylori antigen (especially w/ history of anemia) Depression 09/29/2024 Assessment & Plan (09/29/2024 1:17 PM WORK ORDER CLERK): As per psychiatry Will addon a TSH Pericarditis 09/29/2024 Assessment & Plan (09/30/2024 9:10 AM WORK ORDER CLERK): Currently asymptomatic. Will obtain EKG. 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 Low threshold to restart. The chest pain (when present) he notes is epigastric so that may be a component of GERD Renal lesion 09/29/2024 Assessment & Plan (09/30/2024 9:09 AM WORK ORDER CLERK): 11/02/23 CT: There are 3 low-attenuation lesions [...] 08/14/23, 11/02/23 w/ diffuse ST elevation, w/ WV depression) and a negative ischemic workup (including [...] 11/16/2023 Assessment & Plan (09/30/2024 9:11 AM WORK ORDER CLERK): B12 300, same as 11/2023. Will replete [...] 11/16/2023 Assessment & Plan (09/30/2024 9:11 AM WORK ORDER CLERK): Late latent, appropriately treated. See my 11/15/24 note Assessment & Plan (11/16/2023 1:25 PM CDT): As per my colleague Dr Bynum (see 09/07/23 medicine c/s note): - Has history of Syphilis, treated in 2013 , -Treponema ab + and RPR 1:4 on 08/29/23 when tested at [facility] ED Contacted [facility] ( [place] ) for info To see if titers are coming down , left message with Nurse ( [phone]): Called back received, Patient diagnosed with late latent syphilis at [facility] in [place] on 10-11 : +RPR titer 1 :256, treponema -EIA positive Completed treatment with benzathine penicillin G x 3 doses given on November 21 2013, November 28 2013 and December 052013 So appropriately treated Lumbar strain, initial encounter 09/16/2023 Anemia 09/08/2023 Assessment & Plan (09/08/2023 8:05 PM WORK ORDER CLERK): -possible hx of GI bleed in June, [...] disease) Assessment & Plan (09/08/2023 5:10 AM WORK ORDER CLERK): -continue pepcid Adjustment disorders, with mixed anxiety and dep ressed mood 09/07/2023 Assessment & Plan (09/08/2023 4:53 AM WORK ORDER CLERK): Per Psychiatry Cannabis use disorder, moderate, dependence 01/2024 Assessment & Plan (09/08/2023 4:53 AM WORK ORDER CLERK): Per Psychiatry History of syphilis 09/07/2023 Assessment & Plan (09/08/2023 12:28 PM WORK ORDER CLERK): - Has history of Syphilis, treated in 2013 , -Treponema ab + and RPR 1:4 on 08/29/23 when tested at [facility] ED Contacted [facility] ( [place] ) for info To see if titers are coming down , left message with Nurse ( [phone]): Called back received, Patient diagnosed with late latent syphilis at [facility] in [place] on 10-11 : +RPR titer 1 :256, [...] recs Assessment & Plan (07/27/2023 10:01 AM WORK ORDER CLERK): Wes has been struggling for the last 4 years with unstable realtionships, unstable housing, difficulty finding and maintaining employment, and in and out of senior care/detention/probation. He says that he is sad about [...] Med recs apprec; h/o pericarditis Swer to counts include 234 beds at the [facility] with follow-up and dispo Assessment & Plan (07/26/2023 9:44 AM WORK ORDER CLERK): Wes has been struggling for the last 4 years with unstable realtionships, unstable housing, difficulty finding and maintaining employment, and in and out of senior care/detention/probation. He says that he is sad about [...] Med recs apprec; h/o pericarditis Swer to counts include 234 beds at the [facility] with follow-up and dispo Assessment & Plan (07/25/2023 12:24 PM WORK ORDER CLERK): Wes has been struggling for the last 4 years with unstable realtionships, unstable housing, difficulty finding and maintaining employment, and in and out of senior care/detention/probation. He says that he is sad about [...] Med recs apprec; h/o pericarditis Swer to counts include 234 beds at the [facility] with follow-up and dispo [...] was started on Abilify and Depakote in [place], and reports that his visual and auditory hallucinations have resolved. - Start Sertraline 50mg, consider titrating - Obtain further information about the hallucinations - Haldol 5 p.o. or Haldol 5/Ativan 2 IM PRN for agitation - Suicide/elopement/safety precautions - Therapeutic milieu - q15 min safety checks Asthma 05/22/2023 Assessment & Plan (09/29/2024 1:14 PM WORK ORDER CLERK): Mild. Prn albuterol Assessment & Plan (09/08/2023 5:12 AM WORK ORDER CLERK): - no PFTs available , currently not in exacerbation, - PRN albuteral Assessment & Plan (07/25/2023 10:37 AM WORK ORDER CLERK): Intermittent. No symptoms. Uses albuterol prn at [...] (11/04/2024): Added automatically from request for surgery [id number] Resolved Problems Problem Noted Date Diagnosed Date Resolved Date history of Pericarditis 09/07/202310/31 Assessment & Plan (09/08/2023 8:04 PM WORK ORDER CLERK): - patient has not been able to afford colchicine and reports benefit when getting doses in ED visits - continue colchicine 0.6 mg po BID and monitor for side effects, it should be held if nausea, vomiting, diarrhea -Hold NSAIDS as -he as not tolerated with significant Gi side effects -Patient was seen by Cardiology as outpatient on 09/02/2023 at [facility] ([facility]) and has an [...] psychiatry Assessment & Plan (07/25/2023 10:36 AM WORK ORDER CLERK): Pt w/ hx of depression and anxiety presents w/ SI after grandmother passing. Didn't have intent or plan. Denies SI now -mgt per primary Encounters Date Type Department Care Team Description 01/06/2025 2:01 PM CDT - 01/09/2025 3:55 PM CDT Hospital Encounter [facility] [address] [place] [id number] Filipe Claros MD L'Ecuyer, Suzanne, MD de [...] CDT - 01/06/2025 12:58 PM CDT Emergency [facility] Emergency Department [address] [place] [address] Jose Sullivan MD Zozula, Jaskaran Macdonald MD Suicidal ideation (Primary Dx) Discharge Disposition: Discharge to psych hospital or psych unit 01/04/2025 [facility] Post Discharge Follow up phone call [facility] [address] [place] [address] Anastasiia Montano 01/01/2025 10:08 PM CDT - 01/02/2025 2:26 AM CDT Emergency [facility] Emergency Department [address] [place] [address] Irina Yeager MD Suicidal ideation (Primary Dx) Discharge Disposition: Discharge to home or self care 12/29/2024 10:58 PM CDT - 12/30/2024 4:10 PM CDT Hospital Encounter [facility] IMU [address] [place] [address] Jose Sullivan MD Fasick, Victoria Rose, DO Richards, John Albert Jr., MD Chest pain, unspecified type (Primary Dx); Other chest pain; Chronic pericarditis; Acute idiopathic pericarditis Discharge Disposition: Discharge to home or self care 12/20/2024 5:19 PM CDT - 12/21/2024 12:[address] [facility] Emergency Department [address] [place] [id number] Renetta Echols MD Suicidal ideation (Primary Dx) Discharge Disposition: Discharge to psych hospital or psych unit 11/04/2024 12:54 AM CDT - 11/04/2024 12:05 PM CDT [address] [address] Neel So MD Depression with suicidal ideation [...] drink = 0.6 oz pur e alcohol) [facility] Utilities Answer Date Recorded In the past 12 months has [employer] gas, oil, or water Richard Pauer - [employer] threatened to shut off services in your [...] How often do you attend chur or orthodoxy services? Never 01/07/2025 Do you belong to any clubs o r organizations such as synagogue groups, unions, fraternal or athletic groups, or [...] staff should administer the PHQ-9) 2 09/07/2023 [facility] - Occupational Stress [...] or slept in a usp (including now)? Yes 10/02/2023 Housing Stability Vital Sign Answer Pavel e Recorded In the last 12 months, was t here a time when you were not able to pay the mortgage or rent on time? No 01/07/2025 Number of Times Moved in the Last Year Not on fi le 01/07/2025 At any time in the past 12 m [facility], were you homeless or living in a usp (including now)? No 01/07/2025 Personal Safety Answer [...] on file Legal Sex Male 5:49 PM WORK ORDER CLERK Gender Identity Not on file Sexual Orientation [...] tendency for uric acid stone formation. Source: [facility] [place] Current Interpretive Data was last revised on [...] DERABLES Final Result [facility] 1 [facility] [place] [address] * (ABNORMAL) Drugs of Abuse Screen, Urine [...] Final Re sult [facility] ([place] 1 [facility] [place] [address] * (ABNORMAL) Urinalysis, microscopic only (01/06/2025 12:40 AM CDT) WBC, ur 11-20(A) 0 - 5 /HPF RBC, ur 6-10(A) 0 - 2 /HPF [facility] ([place]) Epithelial cells, squamous, ur 1-5 0 - 5 /HPF [facility] ([place]) Mucous, ur Present(A) [facility] ([place]) Hyaline casts, ur 1-5 0 - 10 /LPF [facility] ([place]) Culture Reflex Comment Reflex to urine culture will be performed. [facility] ([place]) Urine 01/06/2025 12:4 0 AM CDT 01/06/2025 12:58 AM CDT us Jose Sullivan MD LAB URINE ORDERABLES Final Re sult Performing Organization Address [facility] Co de Phone Number [facility] ([place]) [address] [place] [address] [place] [address] * Urine culture Urine (01/06/2025 12:40 AM CDT) Report Final Report: Less than 100,000 colonies/mL (clinically insignificant growth based on current clinical standards) Comment:Testing performed by : [facility], 1 [place]., [address] Organism (CLINICALLY INSIGNIFICANT GROWTH [facility] ([place]) Urine 01/06/2025 12:4 0 AM CDT 01/06/2025 6:07 AM CDT Narrative [facility] ([place]) - 01/07/2025 12:32 PM CDT Urine culture reflexed based upon urinalysis results. Testing performed by [facility] ([phone]) us Jose Sullivan MD LAB MICROBIOLOGY - GENERAL OR DERABLES Final Result Performing Organization Address [facility]/ZIP Co de Phone Number [facility] ([place]) [address] [place] [address] [place] [address] * COVID-19 Coronavirus RNA Nasopharyngeal (01/06/2025 12:32 AM CDT) COVID-19 RNA Negative Negative Nasopharyngeal 01/06/2025 12 :32 AM CDT 01/06/2025 12:47 AM CDT Narrative [facility] ([place] - 01/06/2025 1:25 AM CDT Is the patient experiencing any symptoms consistent with COVID (eg. Fever, cough, shortness of breath)?->No What is the reason for testing?->Screening for semi-private room placement Interpretive data: Testing performed by [facility]. This test is performed using the [employer] Xpert Xpress CoV-2 plus assay. This is a real-time RT-PCR test intended for the qualitative detection of nucleic acid from the SARS-CoV-2. This assay has been cleared by the [place] Food and Drug administration. The performance characteristics have been verified by [facility]. Results must be considered in the clinical context, and a negative result does not rule out infection. Interpretive data last revised 2024. Interpretive data: Testing performed by [facility]. This test is performed using the [employer] Xpert Xpress CoV-2 plus assay. This is a real-time RT-PCR test intended for the qualitative detection of nucleic acid from the SARS-CoV-2. This assay has been cleared by the [place] Food and Drug administration. The performance characteristics have been verified by [facility]. Results must be considered in the clinical context, and a negative result does not rule out infection. Interpretive data last revised 2024. Joes Sullivan MD LAB MICROBIOLOGY - GENERAL OR DERABLES Final Result [facility] ([place]) 1 [facility] Department [place] [address] * eGFR (01/06/2025 12:32 AM CDT) eGFR [...] MD LAB BLOOD ORDERABLES Final Re sult [facility] [address] [place] [address] [place] [address] * Differential, auto (01/06/2025 12:32 AM CDT) [...] Imm gran pct 0.5 % [facility] ([place]) Comment: Interpretive Data Percent cell count reference [...] ORDERABLES Final Re sult Performing Organization Address City/[facility]/ZIP Co de Phone Number [facility] ([place]) 1 [facility] [place] [address] * Thyroid Function Humphreys (01/06/2025 12:32 AM CDT) TSH 1.00 0.30 - 4.20 mcIUnit/mL Blood 01/06/2025 12:3 2 AM CDT 01/06/2025 12:47 AM CDT Jose Sullivan MD LAB BLOOD ORDERABLES Final Re sult [facility] ([place]) 1 [facility] [place] [address] * CBC with auto differential (01/06/2025 12:32 AM CDT) WBC 7.86 3.80 - 9.90 K/cumm Hgb 13.4 13.0 - 17.5 g/dL [facility] Hct 41.2 38.9 - 50.3 % [facility] ([place]) Plt 259 150 - 400 K/cumm [facility] ([place]) MPV 10.2 9.1 - 12.3 fL [facility] RBC 4.65 4.30 - 5.80 M/cumm [facility] ([place] MCV 88.6 81.3 - 96.4 fL [facility] ([place] MCH 28.8 27.1 - 33.3 pg [facility] ([place] MCHC 32.5 32.3 - 35.7 g/dL [facility] ([place] RDW CV 13.5 11.1 - 14.9 % [facility] RDW SD 43.3 35.7 - 48.1 fL [facility] NRBC abs 0.00 0.00 - 0.01 K/cumm [facility] ([place]) Blood Venous blood specimen / Unknown 01/06/2025 12:32 AM CDT 01/06/2025 12:47 AM CDT us Jose Sullivan MD LAB BLOOD ORDERABLES Final Re sult [facility] ([place] 1 [facility] Department [place] [address] * Ethanol (01/06/2025 12:32 AM CDT) Ethanol <10 <=10 mg/dL Comment: Interpretive Data Legal limit of intoxication > or = 80 mg/dL Levels > or = 400 mg/dL are potentially TOXIC. Current interpretive data was last revised on 2018. Blood 01/06/2025 12:3 2 AM CDT 01/06/2025 12:47 AM CDT us Jose Sullivan MD LAB BLOOD ORDERABLES Final Re sult [facility]) 1 [facility] [place] [address] * (ABNORMAL) Comprehensive metabolic panel (01/06/2025 12:32 [...] LAB BLOOD ORDERABLES Final Re sult [facility] 1 [facility] [place] [address] * eGFR (01/01/2025 10:28 PM CDT) eGFR [...] ORDERABLES Final R esult Performing Organization Address City/[facility]/ZIP Co de Phone Number [facility] Department [place] [address] * (ABNORMAL) Differential, auto (01/01/2025 10:28 PM CDT) Neutrophil abs 4.69 1.50 - 6.50 K/cumm Imm gran abs 0.02 0.00 - 0.10 K/cumm [facility] Lymphocyte abs 1.78 0.80 - 3.30 K/cumm [facility] Monocyte abs 0.87(H) 0.20 - 0.80 K/cumm [facility] Eosinophil abs 0.17 0.00 - 0.50 K/cumm [facility] Basophil abs 0.03 0.00 - 0.10 K/cumm [facility] Neutrophil pct 62.1 % [facility] Comment: Interpretive Data Percent cell count reference ranges are not reported, since discordance with absolute values may lead to misinterpretation of CBC data. Current Interpretive Data was last revised on 2017. Imm gran pct 0.3 % [facility] Comment: Interpretive Data Percent cell count reference ranges are not reported, since discordance with absolute values may lead to misinterpretation of CBC data. Current Interpretive Data was last revised on 2017. Lymphocyte pct 23.5 % [facility] Comment: Interpretive Data Percent cell count reference ranges are not reported, since discordance with absolute values may lead to misinterpretation of CBC data. Current Interpretive Data was last revised on 2017. Monocyte pct 11.5 % [facility] Comment: Interpretive Data Percent cell count reference ranges are not reported, since discordance with absolute values may lead to misinterpretation of CBC data. Current Interpretive Data was last revised on 2017. Eosinophil pct 2.2 % [facility] Comment: Interpretive Data Percent cell count reference ranges are not reported, since discordance with absolute values may lead to misinterpretation of CBC data. Current Interpretive Data was last revised on 2017. Basophil pct 0.4 % [facility] Comment: Interpretive Data Percent cell count reference ranges are not reported, since discordance with absolute values may lead to misinterpretation of CBC data. Current Interpretive Data was last revised on 2017. Blood 01/01/2025 10:2 8 PM CDT 01/01/2025 10:35 PM CDT Irina Yeager MD LAB BLOOD ORDERABLES Final R esult Performing Organization Address City/[facility]/ZIP Co de Phone Number [facility] Department [place] [address] * (ABNORMAL) Urinalysis reflex to microscopic (01/01/2025 10:28 PM CDT) Color, ur Yellow Yellow Clarity, ur Clear Clear [facility] Specific gravity, ur 1.027 1.003 - 1.030 [facility] pH, urine 6.0 [facility] Comment: Interpretive Data U rine pH is affected by diet, medications, systemic acid-base disturbances, and renal tubular function. pH may affect urinary stone formation. For example, urine pH below 6.0 may help reduce the tendency for calcium phosphate stones and pH greater than 6.0 may reduce the tendency for uric acid stone formation. Source: [facility] Current Interpretive Data was last revised on 2017 Protein, ur ql 1+(A) Negative [facility] Glucose, ur ql Negative Negative [facility] Ketones, ur Negative Negative [facility] Bilirubin, ur Negative Negative [facility] Blood, ur 2+(A) Negative [facility] Urobilinogen, ur <2.0 <2.0 mg/dL [facility] Nitrite, ur Negative Negative [facility] Leukocyte esterase, ur Negative Negative [facility] UA reflex comment Reflex to microscopic UA will be performed. [facility] Urine 01/01/2025 10:2 8 PM CDT 01/01/2025 10:33 PM CDT Irina Yeager MD LAB URINE ORDERABLES Final R esult Performing Organization Address City/[facility]/ZIP Co de Phone Number [facility] Department [place] [address] * CBC with auto differential (01/01/2025 10:28 PM CDT) WBC 7.56 3.80 - 9.90 K/cumm Hgb 14.8 13.0 - 17.5 g/dL [facility] Hct 45.4 38.9 - 50.3 % [facility] Plt 308 150 - 400 K/cumm [facility] MPV 10.1 9.1 - 12.3 fL [facility] RBC 5.26 4.30 - 5.80 M/cumm [facility] MCV 86.3 81.3 - 96.4 fL [facility] MCH 28.1 27.1 - 33.3 pg [facility] MCHC 32.6 32.3 - 35.7 g/dL [facility] RDW CV 13.4 11.1 - 14.9 % [facility] RDW SD 42.3 35.7 - 48.1 fL [facility] NRBC abs 0.00 0.00 - 0.01 K/cumm [facility] Blood Venous blood specimen / Unknown 01/01/2025 10:28 PM CDT 01/01/2025 10:35 PM CDT Irina Yeager MD LAB BLOOD ORDERABLES Final R esult Performing Organization Address City/[facility]/ZIP Co de Phone Number [facility] [place] [address] * (ABNORMAL) Urinalysis, microscopic only (01/01/2025 10:28 PM CDT) WBC, ur 0-5 0 - 5 /HPF RBC, ur >50(A) 0 - 2 /HPF [facility] Mucous, ur Present(A) [facility] Urine 01/01/2025 10:2 8 PM CDT 01/01/2025 10:33 PM CDT Irina Yeager MD LAB URINE ORDERABLES Final R esult [facility] [place] [address] * Lipase (01/01/2025 10:28 PM CDT) Lipase 26 10 - 99 Units/L Blood Venous blood specimen / Unknown 01/01/2025 10:28 PM CDT 01/01/2025 10:34 PM CDT Irina Yeager MD LAB BLOOD ORDERABLES Final R esult Performing Organization Address City/[facility] Co de Phone Number [facility] Department [place] [address] * (ABNORMAL) Creatine kinase (CK), total (01/01/2025 10:28 PM CDT) Pathologist [facility] CK 632(H) 40 - 300 Units/L Blood 01/01/2025 10:2 8 PM CDT 01/01/2025 10:34 PM CDT Irina Yeager MD LAB BLOOD ORDERABLES Final R esult Performing Organization Address [facility] de Phone Number [facility] Department [place] [address] * Acetaminophen level (01/01/2025 10:28 PM CDT) Pathologist [facility] Acetaminophen <5 <=5 mcg/mL Comment: Interpretive Data Significant hepatic injury may occur and treatment with n-acetyl cysteine is generally recommended if the acetaminophen level exceeds: 150 mcg/mL at 4 hours after ingestion 75 mcg/mL at 8 hours after ingestion 38 mcg/mL at 12 hours after ingestion 19 mcg/mL at 16 hours after ingestion Consult toxicology or poison control ([phone]) for unknown ingestion time. Current interpretive data was last revised 2023. Blood 01/01/2025 10:2 8 PM CDT 01/01/2025 10:34 PM CDT Maye Pradhan NP LAB BLOOD ORDERABLES Final Result Performing Organization Address [facility]/ZIP Co de Phone Number [facility] Department [place] [address] * Salicylate level (01/01/2025 10:28 PM CDT) Pathologist [facility] Salicylate <9.0 <=9.0 mg/dL Comment: Interpretive Data Toxic: 30 mg/dL or greater. Current interpretive data was last revised 2023. Blood 01/01/2025 10:2 8 PM CDT 01/01/2025 10:34 PM CDT Maye Pradhan [facility] LAB BLOOD ORDERABLES Final Result Performing Organization Address [facility] [place] [address] * (ABNORMAL) Valproic acid level, total (01/01/2025 10:28 PM CDT) [facility] Valproic Acid <15.0(L) 50.0 - 100.0 mcg/mL Comment: Interpretive Data Therapeutic or toxic effects of anticonvulsant drugs may occur at different concentrations in different patients and the correlation between dose and clinical effect must be evaluated individually. Current interpretative data was last revised on 13. Blood 01/01/2025 10:2 8 PM CDT 01/01/2025 10:34 PM CDT Maye Pradhan [facility] LAB BLOOD ORDERABLES Final Result Performing Organization Address City/[facility] Co de Phone Number [facility] [place] [address] * Comprehensive metabolic panel (01/01/2025 10:28 PM CDT) Pathologist [facility] Sodium 141 135 - 145 mmol/L Potassium, pl 4.0 3.3 - 4.9 mmol/L [facility] Comment:Hemolyzed; Potassium value may be falsely elevated by as much as 0.3-0.5 mmol/L. Suggest redraw and reanalysis. Chloride 105 97 - 110 mmol/L [facility] CO2 26 22 - 32 mmol/L [facility] Anion gap 10 2 - 15 mmol/L [facility] BUN 10 6 - 25 mg/dL [facility] Creatinine 1.24 0.80 - 1.30 mg/dL [facility] Glucose 123 70 - 199 mg/dL [facility] Comment: Interpretive Data Fasting glucose [...] 2022. Calcium 9.8 8.5 - 10.3 mg/dL [facility] Bilirubin, total 0.2 0.1 - 1.2 mg/dL [facility] Protein, pl 8.1 6.5 - 8.5 g/dL [facility] Albumin 4.3 3.5 - 5.0 g/dL [facility] Alk phos 78 40 - 130 Units/L [facility] ALT 40 7 - 55 Units/L [facility] AST 47 10 - 50 Units/L [facility] Comment:Hemolyzed; result ma y be falsely elevated Blood 01/01/2025 10:2 8 PM CDT 01/01/2025 10:34 PM CDT Irina Yeager MD LAB BLOOD ORDERABLES Final R esult [facility] Department [place] [address] * ANUSHKA screen w/rflx FLIP+dsDNA (12/30/2024 11:56 [...] last revised on 2020. Testing performed by: [facility], [address] [place]., [address] Blood 12/30/2024 11:5 6 AM CDT 12/30/2024 3:00 PM CDT us Navarro Zuleta Jr., MD LAB BLOOD ORDERABLE S Final Result Performing Organization Address [facility] Co de Phone Number [facility] [address] [place] [address] [place] [address] * HIV 1/2 Antibody plus p24 Antigen Blood (12/30/2024 11:56 AM CDT) HIV 1/2 ab + p24 ag Nonreactive Nonreactive Comment: Nonreactive for HIV-1 antigen and HIV-1/HIV-2 antibodies. No laboratory evidence of HIV infection. If acute HIV infection is suspected, consider testing for HIV-1 RNA. Testing performed by: [address] [address] Blood 12/30/2024 11:5 6 AM CDT 12/30/2024 1:50 PM CDT us Navarro Zuleta Jr., MD LAB MICROBIOLOGY - GENERAL ORDERABLES Final Result [facility] ([place] [address] [place] [address] [place] [address] * RPR Blood (12/30/2024 11:56 AM CDT) RPR Nonreactive Nonreactive Comment:Testing performed by : [address] [place]., [address] Blood 12/30/2024 11:5 6 AM CDT 12/30/2024 1:50 PM CDT us Navarro Zuleta Jr., MD LAB MICROBIOLOGY - GENERAL ORDERABLES Final Result Performing Organization Address [facility] Co de Phone Number [facility] ([place]) 1 [facility] [place] [address] * Troponin T high-sensitivity 6-hour (12/30/2024 5:09 [...] ORDERABLES Vickie l Result Performing Organization Address [facility] Co de Phone Number [facility] ([place]) [address] [place] [address] * eGFR (12/30/2024 5:09 AM CDT) eGFR [...] BLOOD ORDERABLES Fin al Result [facility] ([place]) 1 [facility] Department [place] [address] * (ABNORMAL) Differential, auto (12/30/2024 5:09 AM [...] Fin al Result [facility] ([place]) 1 [facility] Department of Laboratories [place], [place] [id number] * (ABNORMAL) CBC with auto differential (12/30/2024 [...] ([place]) MCHC 30.9(L) 32.3 - 35.7 g/dL [facility] ([place]) RDW CV 13.5 11.1 - 14.9 % [facility] ([place]) RDW SD 45.9 35.7 - 48.1 fL [facility] ([place]) NRBC abs 0.00 0.00 - 0.01 K/cumm [facility] ([place]) Blood 12/30/2024 5:09 AM CDT 12/30/2024 5:12 AM CDT Kelly Knight DO LAB BLOOD ORDERABLES Fin al Result [facility] 1 [facility] [place] [address] * Phosphorus (12/30/2024 5:09 AM CDT) Phosphorus, pl 3.8 2.3 - 4.5 mg/dL Blood 12/30/2024 5:09 AM CDT 12/30/2024 5:12 AM CDT Kelly Knight DO LAB BLOOD ORDERABLES Fin al Result Performing Organization Address City/[facility]/ZIP Co de Phone Number [facility] 1 [facility] [place] [address] * Magnesium (12/30/2024 5:09 AM CDT) Magnesium 1.8 1.4 - 2.5 mg/dL Blood 12/30/2024 5:09 AM CDT 12/30/2024 5:12 AM CDT Kelly [employer]amarena[employer] DO LAB BLOOD ORDERABLES Fin al Result [facility] ([place]) 1 [facility] [place] [address] * Comprehensive metabolic panel (12/30/2024 5:09 AM CDT) Sodium 137 135 - 145 mmol/L Potassium, pl 4.8 3.3 - 4.9 mmol/L [facility] ([place]) Comment:Slightly Hemolyzed S pecimen. Results may be [...] 5:09 AM CDT 12/30/2024 5:12 AM CDT eKlly Knight DO LAB BLOOD ORDERABLES Fin al Result [facility] ([place]) 1 [facility] [place] [address] * Erythrocyte sedimentation rate (12/30/2024 5:07 AM CDT) Pathologist [facility] Erythrocyte sedimentation rate 11 1 - 15 mm/hr Blood 12/30/2024 5:07 AM CDT 12/30/2024 6:46 AM CDT us Navarro Zuleta Jr., MD LAB BLOOD ORDERABLE S Final Result Performing Organization Address [facility] Co de Phone Number [facility] ([place]) [address] [place] [address] * CRP (acute phase) (12/30/2024 5:07 AM CDT) [facility] CRP <3.0 <=10.0 mg/L Blood 12/30/2024 5:07 AM CDT 12/30/2024 6:48 AM CDT us Navarro Zuleta Jr., MD LAB BLOOD ORDERABLE S Final Result Performing Organization Address [facility] de Phone Number [facility] ([place]) 1 [facility] [place] [address] * (ABNORMAL) Troponin T high-sensitivity 2-hour (12/30/2024 12:43 AM CDT) Pathologist [facility] Trop T hs 26(H) <=22 ng/L Comment: [...] ORDERABLES Vickie l Result Performing Organization Address [facility] Co de Phone Number [facility] ([place]) 1 [facility] [place] [address] * Lipase (12/30/2024 12:43 AM CDT) Lipase 25 10 - 99 Units/L Blood 12/30/2024 12:4 3 AM CDT 12/30/2024 1:46 AM CDT Kelly Knight DO LAB BLOOD ORDERABLES Fin al Result Performing Organization Address [facility] de Phone Number [facility] ([place]) [address] [place] [address] * ECG 12 lead (12/30/2024 12:32 AM CDT) 12/30/2024 12:3 2 AM CDT Narrative [facility] - 12/30/2024 7:25 AM CDT Vent Rate: 104 bpm RR Interval: 575 msec WV Interval: 159 msec QRS Duration: 109 msec QT Interval: 330 msec QTC Interval: 390 msec P-R-T Greene: 56 - 85 - -50 degrees IMPRESSION: SINUS TACHYCARDIA LEFT VENTRICULAR HYPERTROPHY AND ST-T CHANGE [VOLTAGE CRITERIA PLUS ST/T ABNORMALITY] ST ELEVATION, CONSIDER ANTERIOR INJURY [MARKED ST ELEVATION W/O NORMALLY INFLECTED T-WAVE IN V2-V5] ACUTE VT NO CHANGE FROM PREVIOUS TRACING NOTED Electronically Signed By: Skyler Waite MD Jose Sullivan MD ECG ORDERABLES Final Result Performing Organization Address [facility] Co de Phone Number [facility] [email or web address] [facility] * Urinalysis reflex to microscopic and culture Urine, bladder (12/30/2024 12:06 AM CDT) Color, ur Yellow Yellow Clarity, ur Clear Clear [facility] ([place]) Specific gravity, ur 1.020 1.003 - 1.030 [...] uric acid stone formation. Source: [facility] Current Interpretive Data was last revised [...] MICROBIOLOGY - GENERAL OR DERABLES Final Result [facility] ([place]) 1 [facility] [place] [address] * (ABNORMAL) Drugs of Abuse Screen, Urine [...] [facility] ([place]) Comment: Interpretive Data - Opiates: Samples [...] CDT 12/30/2024 12:11 AM CDT Narrative [facility] - 12/30/2024 12:55 AM CDT Drug of Abuse screening is performed by immunoassay for medical purposes only. This is not to be used for Pain Management purposes. us Jose Sullivan MD LAB URINE ORDERABLES Final Re sult [facility] ([place] 1 [facility] Department of [place], [place] [id number] * ECG 12 lead (12/29/2024 11:58 PM CDT) 12/29/2024 11:5 8 PM CDT Narrative [facility] - 12/30/2024 7:27 AM CDT Vent Rate: 116 bpm RR Interval: 516 msec WV Interval: 163 msec QRS Duration: 106 msec QT Interval: 321 msec QTC Interval: 390 msec P-R-T Greene: 64 - 85 - -64 degrees IMPRESSION: SINUS TACHYCARDIA LEFT VENTRICULAR HYPERTROPHY AND ST-T CHANGE [VOLTAGE CRITERIA PLUS ST/T ABNORMALITY] ST ELEVATION, CONSIDER ANTERIOR INJURY [MARKED ST ELEVATION W/O NORMALLY INFLECTED T-WAVE IN V2-V5] ACUTE VT Compared to prior EKG, heart rate has increased Electronically Signed By: Skyler Waite MD us Jose Sullivan MD ECG ORDERABLES Final Result [facility] * CT Chest PE (CTA) W Contrast [...] Richi Farr M.D., KT: NANNETTE Report ID: [id number] Reading Location: [id number] Procedure Note Richi Farr MD - 12/30/2024 [...] Richi Farr M.D. KT: NANNETTE Report ID: [id number] Reading Location: [id number] Jose Sullivan MD IMG CT PROCEDURES Final [...] Sam M.D. AR: JOHN PAUL Report ID: [id number] Reading Location: [id number] Procedure Note Jaskaran Sam MD - 12/29/2024 [...] Sam M.D. AR: JOHN PAUL Report ID: [id number] Reading Location: [id number] us Jose Sullivan MD IMG XR PROCEDURES [...] BLOOD ORDERABLES Final Re sult [facility] [place] 1 [facility] [place] [address] * eGFR (12/29/2024 11:09 PM [...] Larissa Medellin MD LAB BLOOD ORDERABLES Vickie arreola Result [facility] ([place]) 1 [facility] [place] [address] * Differential, auto (12/29/2024 11:09 PM CDT) Neutrophil abs 5.64 1.50 - 6.50 K/cumm Imm gran abs 0.03 0.00 - 0.10 K/cumm [facility] ([place]) Lymphocyte abs 1.06 0.80 - 3.30 K/cumm [facility] ([place]) Monocyte abs 0.77 0.20 - 0.80 K/cumm [facility] ([place]) Eosinophil abs 0.03 0.00 - 0.50 K/cumm [facility] ([place]) Basophil abs 0.02 0.00 - 0.10 K/cumm [facility] ([place]) Neutrophil pct 74.7 % [facility] ([place]) Comment: Interpretive Data Percent cell count reference ranges are not reported, since discordance with absolute values may lead to misinterpretation of CBC data. Current Interpretive Data was last revised on 2017. Imm gran pct 0.4 % [facility] ([place]) Comment: Interpretive Data Percent cell count reference ranges are not reported, since discordance with absolute values may lead to misinterpretation of CBC data. Current Interpretive Data was last revised on 2017. Lymphocyte pct 14.0 % [facility] ([place]) Comment: Interpretive Data Percent cell count reference ranges are not reported, since discordance with absolute values may lead to misinterpretation of CBC data. Current Interpretive Data was last revised on 2017. Monocyte pct 10.2 % [facility] ([place]) Comment: Interpretive Data Percent cell count reference ranges are not reported, since discordance with absolute values may lead to misinterpretation of CBC data. Current Interpretive Data was last revised on 2017. Eosinophil pct 0.4 % [facility] ([place]) Comment: Interpretive Data Percent cell count reference [...] BLOOD ORDERABLES Vickie l Result [facility] ([place]) 1 [facility] [place] [address] * (ABNORMAL) Thyroid Function Humphreys (12/29/2024 11:09 PM CDT) TSH 0.17(L) 0.30 - 4.20 mcIUnit/mL Blood 12/29/2024 11:0 9 PM CDT 12/30/2024 9:14 AM CDT us Jose Sullivan MD LAB BLOOD ORDERABLES Edited R esult - Final Performing Organization Address City/[facility]/ZIP Co de Phone Number [facility] ([place]) 1 [facility] [place] [address] * CBC with auto differential (12/29/2024 11:09 [...] ORDERABLES Final Re sult Performing Organization Address [facility] Co de Phone Number [facility] ([place]) [address] [place] [address] [place] [address] * T3, free (12/29/2024 11:09 PM CDT) Free T3 3.9 2.0 - 4.4 pg/mL Comment:Testing performed by : [facility], [address] [place] [address], [address] Blood 12/29/2024 11:0 9 PM CDT 12/30/2024 9:14 AM CDT Narrative [facility] ([place]) - 12/30/2024 9:57 AM CDT This test was reflexed from a T4 result. us Jose Sullivan MD LAB BLOOD ORDERABLES Final Re sult Performing Organization Address [facility]/ZIP Co de Phone Number [facility] ([place]) [address] [place] [address] [place] [address] * T4, free (12/29/2024 11:09 PM CDT) Free T4 1.07 0.90 - 1.70 ng/dL Blood 12/29/2024 11:0 9 PM CDT 12/30/2024 9:14 AM CDT Narrative [facility] ([place]) - 12/30/2024 9:57 AM CDT This test was reflexed from a TSH result. Jose Sullivan MD LAB BLOOD ORDERABLES Edited R esult - Final Performing Organization Address City/[facility]/ZIP Co de Phone Number [facility] ([place]) 1 [facility] [place] [address] * Magnesium (12/29/2024 11:09 PM CDT) Magnesium 1.6 1.4 - 2.5 mg/dL Blood 12/29/2024 11:0 9 PM CDT 12/29/2024 11:15 PM CDT us Jose Sullivan MD LAB BLOOD ORDERABLES Final Re sult Performing Organization Address [facility] Co de Phone Number [facility] ([place]) 1 [facility] [place] [address] * Comprehensive metabolic panel (12/29/2024 11:09 PM CDT) Sodium 137 135 - 145 mmol/L Potassium, pl 4.2 3.3 - 4.9 mmol/L [facility] Chloride 99 97 - 110 mmol/L [facility]) CO2 24 22 - 32 mmol/L [facility]) Anion gap 14 2 - 15 mmol/L [facility] BUN 8 6 - 25 mg/dL [facility] Creatinine 1.04 0.80 - 1.30 mg/dL [facility] ([place]) Glucose 126 70 - 199 mg/dL [facility] ([place]) Comment: Interpretive Data [...] Final Re sult [facility] ([place]) 1 [facility] [place] [address] * (ABNORMAL) Urinalysis reflex to microscopic and culture Urine (12/20/2024 5:19 PM CDT) Color, ur Yellow Yellow Comment:Testing performed by : [address] [address] Clarity, ur Clear Clear [facility] Comment:Testing performed by : [address] [address] Specific gravity, ur 1.032(H) 1.003 - 1.030 [facility] Comment:Testing performed by : [address] [address] pH, urine 6.5 [facility] Comment: Interpretive Data U rine pH is affected by diet, medications, systemic acid-base disturbances, and renal tubular function. pH may affect urinary stone formation. For example, urine pH below 6.0 may help reduce the tendency for calcium phosphate stones and pH greater than 6.0 may reduce the tendency for uric acid stone formation. Source: [facility] [place] Current Interpretive Data was last revised on 2017 Testing performed by: [address] [address] Protein, ur ql Trace(A) Negative [facility] Comment:Testing performed by : [address], [place]., [address] Glucose, ur ql Negative Negative [facility] Comment:Testing performed by : [address] [address] Ketones, ur Trace(A) Negative [facility] Comment:Testing performed by : [address] [address] Bilirubin, ur Negative Negative [facility] Comment:Testing performed by : [address], [place]., [address] Blood, ur 1+(A) Negative [facility] Comment:Testing performed by : [address] [address] Urobilinogen, ur 2.0(A) <2.0 mg/dL [facility] Comment:Testing performed by : [address] [address] Nitrite, ur Negative Negative [facility] Comment:Testing performed by : [address] [address] Leukocyte esterase, ur Negative Negative [facility] Comment:Testing performed by : [address] [address] UA reflex comment Reflex to microscopic UA will be performed. [facility] Comment:Testing performed by : [address] [address] Urine 12/20/2024 5:19 PM CDT 12/20/2024 5:25 PM CDT us Renetta Echols MD LAB MICROBIOLOGY - GENER AL ORDERABLES Final Result [facility] [address] [facility] [place] [address] * (ABNORMAL) Drugs of Abuse Screen, Urine without Confirmation (12/20/2024 5:19 PM CDT) [facility] Amphetamine, ur Not Detected CutOff 500ng/mL Comment: Interpretive Data - Amphetamines: Samples containing greater than 500 ng/mL d-methamphetamine or other cross-reacting amphetamine compounds are reported as positive. Amphetamine immunoassays are subject to significant false positive rates due to cross-reactivity of non-amphetamine drugs. Confirmatory testing required for definitive results. Current Interpretive Data was last reviewed 2023. Testing performed by: [address] [address] Barbiturates, ur Not Detected CutOff 200ng/mL [facility] Comment: Interpretive Data - Barbiturates: Samples containing greater than 200 ng/mL secobarbital or other cross-reacting barbiturate compounds are reported as positive. False positive and false negative results are possible. Confirmatory testing required for definitive results. Current Interpretive Data was last reviewed 2023. Testing performed by: [address] [address] Benzodiazepines, ur Not Detected CutOff 100ng/mL [facility] Comment: Interpretive Data - Benzodiazepines: Samples containing greater than 100 ng/mL nordiazepam or other cross-reacting compounds are reported as positive. False positive and false negative results are possible. Confirmatory testing required for definitive results. Current Interpretive Data was last reviewed 2023. Testing performed by: [address] [address] Cannabinoids, ur Screen Positive, presumptive (A) CutOff 50 ng/mL [facility] Comment: Interpretive Data - Cannabinoids: Samples containing greater than 50 ng/mL delta-9 THC -COOH or other cross- reacting compounds are reported as positive. False positive and false negative results are possible. Confirmatory testing required for definitive results. Current Interpretive Data was last reviewed 2023. Testing performed by: [address] [address] Cocaine, ur Not Detected CutOff 150ng/mL [facility] Comment: Interpretive Data - Cocaine: Samples containing greater than 150 ng/mL benzoylecgonine or other cross- reacting compounds are reported as positive. False positive and false negative results are possible. Confirmatory testing required for definitive results. Current Interpretive Data was last reviewed 2023. Testing performed by: [facility], [address] [place] [address]., [address] Fentanyl, Ur Not Detected Cutoff 1 ng/mL [facility] Comment: Interpretive Data - Fentanyl: Samples containing greater than 1 ng/mL fentanyl or other cross-reacting fentanyl compounds are reported as positive. False positive and false negative results are possible. Confirmatory testing required for definitive results. Current Interpretive Data was last reviewed 2023. Testing performed by: [facility], [address] [place] [address]., [address] Methadone, ur Not Detected CutOff 300ng/mL [facility] Comment: Interpretive Data - Methadone: Samples containing greater than 300 ng/mL d,l-methadone or other cross-reacting compounds are reported as positive. False positive and false negative results are possible. Confirmatory testing required for definitive results. Current Interpretive Data was last reviewed 2023. Testing performed by: [address] [address] Opiates, ur Not Detected CutOff 300ng/mL [facility] Comment: Interpretive Data - Opiates: Samples containing greater than 300 ng/mL morphine or other cross-reacting compounds are reported as positive. False positive and false negative results are possible. Confirmatory testing required for definitive results. Current Interpretive Data was last reviewed 2023. Testing performed by: [address] [address] Oxycodone, ur Not Detected CutOff 100ng/mL [facility] Comment: Interpretive Data - Oxycodone: Samples containing greater than 100 ng/mL oxycodone or other cross-reacting compounds are reported as positive. False positive and false negative results are possible. Confirmatory testing required for definitive results. Current Interpretive Data was last reviewed 2023. Testing performed by: [address] [address] Phencyclidine, ur Not Detected CutOff 25 ng/mL [facility] Comment: Interpretive Data - Phencyclidine: Samples containing greater than 25 ng/mL phencyclidine or other cross-reacting compounds are reported as positive. False positive and false negative results are possible. Confirmatory testing required for definitive results. Current Interpretive Data was last reviewed 2023. Testing performed by: [address] [address] Urine Creatinine 390 mg/dL [facility] Comment: Interpretive Data Urine Creatinine: < 10 mg/dL is extremely dilute = or > 10 but < 20 mg/dL is dilute = or > 20 mg/dL is normal Current Interpretive Data was last revised on 2017. Testing performed by: [address] [address] Urine 12/20/2024 5:19 PM CDT 12/20/2024 5:25 PM CDT Narrative [facility] - 12/20/2024 5:57 PM CDT Drug of Abuse screening is performed by immunoassay for medical purposes only. This is not to be used for Pain Management purposes. us Renetta Echols MD LAB URINE ORDERABLES Fin al Result [facility] [place] [address] * (ABNORMAL) Urinalysis, microscopic only (12/20/2024 5:19 PM CDT) WBC, ur 0-5 0 - 5 /HPF Comment:Testing performed by : [address] [address] RBC, ur 11-20(A) 0 - 2 /HPF [facility] Comment:Testing performed by : [address] [address] Epithelial cells, squamous, ur 6-10(A) 0 - 5 /HPF [facility] Comment:Testing performed by : [address] [address] Mucous, ur Present(A) [facility] Comment:Testing performed by : [address] [address] Sperm, ur Present(A) [facility] Comment:Testing performed by : [address] [address] Culture Reflex Comment Reflex conditions for urine culture (WBC >10) not met. [facility] Comment:Testing performed by : [facility], [address] [place] [address]., [address] Urine 12/20/2024 5:19 PM CDT 12/20/2024 5:25 PM CDT Renetta Echols MD LAB URINE ORDERABLES Fin al Result [facility] [address] [facility] [place] [address] * COVID-19 Coronavirus RNA Nasopharyngeal (12/20/2024 5:06 PM CDT) COVID-19 RNA Negative Negative Comment:Testing performed by : [address] [address] Nasopharyngeal 12/20/2024 5: 06 PM CDT 12/20/2024 5:22 PM CDT Narrative [facility] - 12/20/2024 5:55 PM CDT Is the patient experiencing any symptoms consistent with COVID (eg. Fever, cough, shortness of breath)?->No What is the reason for testing?->Screening prior to Behavioral health admission Interpretive data Testing performed by [facility]. This test is performed using the [employer] Xpert Xpress CoV-2 plus assay. This is a real-time RT-PCR test intended for the qualitative detection of nucleic acid from the SARS-CoV-2. This assay has been cleared by the [place] Food and Drug administration. The performance characteristics have been verified by the [facility]. Results must be considered in the clinical context, and a negative result does not rule out infection. Interpretive data last revised 2024. Interpretive data Testing performed by [facility]. This test is performed using the [employer] Xpert Xpress CoV-2 plus assay. This is a real-time RT-PCR test intended for the qualitative detection of nucleic acid from the SARS-CoV-2. This assay has been cleared by the [place] Food and Drug administration. The performance characteristics have been verified by the [facility]. Results must be considered in the clinical context, and a negative result does not rule out infection. Interpretive data last revised 2024. Renetta Echols MD LAB MICROBIOLOGY - GENER AL ORDERABLES Final Result Performing Organization Address [facility] Co de Phone Number PRISCILLA [address] [address] * eGFR (12/20/2024 5:06 PM CDT) Pathologist [facility] eGFR >90 >=60 mL/min/1. 73 m2 Comment: [...] was last reviewed 2021. Testing performed by: [facility], [address] [place] [address]., [address] Blood 12/20/2024 5:06 PM CDT 12/20/2024 5:25 PM CDT Renetta Echols MD LAB BLOOD ORDERABLES Fin al Result Performing Organization Address [facility] Co de Phone Number PRISCILLA [address] [place] [address] * Differential, auto (12/20/2024 5:06 PM CDT) Pathologist [facility] Neutrophil abs 3.48 1.50 - 6.50 K/cumm Comment:Testing performed by : [address], [place]., [address] Imm gran abs 0.02 0.00 - 0.10 K/cumm [facility] Comment:Testing performed by : [address] [address] Lymphocyte abs 1.90 0.80 - 3.30 K/cumm [facility] Comment:Testing performed by : [address] [address] Monocyte abs 0.60 0.20 - 0.80 K/cumm [facility] Comment:Testing performed by : [address], [place]., [address] Eosinophil abs 0.17 0.00 - 0.50 K/cumm [facility] Comment:Testing performed by : [address] [address] Basophil abs 0.03 0.00 - 0.10 K/cumm [facility] Comment:Testing performed by : [address] [address] Neutrophil pct 56.2 % [facility] Comment: Interpretive Data Percent cell count reference ranges are not reported, since discordance with absolute values may lead to misinterpretation of CBC data. Current Interpretive Data was last revised on 2017. Testing performed by: [address] [address] Imm gran pct 0.3 % [facility] Comment: Interpretive Data Percent cell count reference ranges are not reported, since discordance with absolute values may lead to misinterpretation of CBC data. Current Interpretive Data was last revised on 2017. Testing performed by: [address] [address] Lymphocyte pct 30.6 % [facility] Comment: Interpretive Data Percent cell count reference ranges are not reported, since discordance with absolute values may lead to misinterpretation of CBC data. Current Interpretive Data was last revised on 2017. Testing performed by: [address] [address] Monocyte pct 9.7 % [facility] Comment: Interpretive Data Percent cell count reference ranges are not reported, since discordance with absolute values may lead to misinterpretation of CBC data. Current Interpretive Data was last revised on 2017. Testing performed by: [address] [address] Eosinophil pct 2.7 % [facility] Comment: Interpretive Data Percent cell count reference ranges are not reported, since discordance with absolute values may lead to misinterpretation of CBC data. Current Interpretive Data was last revised on 2017. Testing performed by: [address] [address] Basophil pct 0.5 % [facility] Comment: Interpretive Data Percent cell count reference ranges are not reported, since discordance with absolute values may lead to misinterpretation of CBC data. Current Interpretive Data was last revised on 2017. Testing performed by: [address] [address] Blood 12/20/2024 5:06 PM CDT 12/20/2024 5:25 PM CDT Renetta Echols MD LAB BLOOD ORDERABLES Fin al Result Performing Organization Address City/[facility] Co de Phone Number [address] [place] [address] * Thyroid Function Humphreys (12/20/2024 5:06 PM CDT) Pathologist [facility] TSH 0.32 0.30 - 4.20 mcIUnit/mL Comment:Testing performed by : [address] [address] Blood 12/20/2024 5:06 PM CDT 12/20/2024 5:25 PM CDT Renetta Echols MD LAB BLOOD ORDERABLES Fin al Result Performing Organization Address City/[facility] Co de Phone Number [address] [place] [address] * CBC with auto differential (12/20/2024 5:06 PM CDT) WBC 6.20 3.80 - 9.90 K/cumm Comment:Testing performed by : [address] [address] Hgb 13.0 13.0 - 17.5 g/dL [facility] Comment:Testing performed by : [address] [address] Hct 39.6 38.9 - 50.3 % [facility] Comment:Testing performed by : [address] [address] Plt 245 150 - 400 K/cumm [facility] Comment:Testing performed by : [address] [address] MPV 9.7 9.1 - 12.3 fL [facility] Comment:Testing performed by : [address], [address] RBC 4.61 4.30 - 5.80 M/cumm [facility] Comment:Testing performed by : [address], [address] MCV 85.9 81.3 - 96.4 fL [facility] Comment:Testing performed by : [address] [address] MCH 28.2 27.1 - 33.3 pg [facility] Comment:Testing performed by : [address] [address] MCHC 32.8 32.3 - 35.7 g/dL [facility] Comment:Testing performed by : [address], [address] RDW CV 14.0 11.1 - 14.9 % [facility] Comment:Testing performed by : [address] [address] RDW SD 43.7 35.7 - 48.1 fL [facility] Comment:Testing performed by : [address] [address] NRBC abs 0.00 0.00 - 0.01 K/cumm [facility] Comment:Testing performed by : [address], [address] Blood Venous blood specimen / Unknown 12/20/2024 5:06 PM CDT 12/20/2024 5:25 PM CDT Renetta Echols MD LAB BLOOD ORDERABLES Fin al Result Performing Organization Address [facility] Co de Phone Number PRISCILLA [address] [address] * Ethanol (12/20/2024 5:06 PM CDT) Ethanol <10 <=10 mg/dL Comment: Interpretive Data Legal limit of intoxication > or = 80 mg/dL Levels > or = 400 mg/dL are potentially TOXIC. Current interpretive data was last revised on 2018. Testing performed by: [address] [address] Blood 12/20/2024 5:06 PM CDT 12/20/2024 5:25 PM CDT Renetta Echols MD LAB BLOOD ORDERABLES Fin al Result Performing Organization Address [facility] Co de Phone Number [address] [address] * Acetaminophen level (12/20/2024 5:06 PM CDT) [...] after ingestion Consult toxicology or poison control ([phone]) for unknown ingestion time. Current interpretive data was last revised 2023. Testing performed by: [address] [address] Blood 12/20/2024 5:06 PM CDT 12/20/2024 5:25 PM CDT Renetta Echols MD LAB BLOOD ORDERABLES Fin al Result Performing Organization Address [facility] de Phone Number [address] [address] * Salicylate level (12/20/2024 5:06 PM CDT) Salicylate <1.0 <=1.0 mg/dL Comment: Interpretive Data Toxic: 30 mg/dL or greater. Current interpretive data was last revised 2023. Testing performed by: [address] [address] Blood 12/20/2024 5:06 PM CDT 12/20/2024 5:25 PM CDT Renetta Echols MD LAB BLOOD ORDERABLES Fin al Result Performing Organization Address [facility] de Phone Number [address] [place] [address] * Comprehensive metabolic panel (12/20/2024 5:06 PM CDT) Pathologist [facility] Sodium 142 135 - 145 mmol/L Comment:Testing performed by : [address] [address] Potassium, pl 4.1 3.3 - 4.9 mmol/L [facility] Comment:Testing performed by : [address] [address] Chloride 106 97 - 110 mmol/L [facility] Comment:Testing performed by : [address] [address] CO2 24 22 - 32 mmol/L [facility] Comment:Testing performed by : [address] [address] Anion gap 12 2 - 15 mmol/L [facility] Comment:Testing performed by : [address] [address] BUN 9 6 - 25 mg/dL [facility] Comment:Testing performed by : [address] [address] Creatinine 1.10 0.80 - 1.30 mg/dL [facility] Comment:Testing performed by : [address] [address] Glucose 116 70 - 199 mg/dL PRISCILLA [...] was last revised 2022. Testing performed by: [address] [address] Calcium 9.0 8.5 - 10.3 mg/dL [facility] Comment:Testing performed by : [address] [address] Bilirubin, total 0.2 0.1 - 1.2 mg/dL [facility] Comment:Testing performed by : [address] [address] Protein, pl 7.1 6.5 - 8.5 g/dL [facility] Comment:Testing performed by : [address] [address] Albumin 4.1 3.5 - 5.0 g/dL [facility] Comment:Testing performed by : [address] [address] Alk phos 64 40 - 130 Units/L [facility] Comment:Testing performed by : [address] [address] ALT 15 7 - 55 Units/L [facility] Comment:Testing performed by : [address] [address] AST 20 10 - 50 Units/L [facility] Comment:Testing performed by : [address] [address] Blood 12/20/2024 5:06 PM CDT 12/20/2024 5:25 PM CDT us Renetta Echols MD LAB BLOOD ORDERABLES Fin al Result [facility]A MH [address] [facility] [place] [address] * CT Abdomen Pelvis W Contrast (11/04/2024 [...] Farida Mahmood M.D. SN T: Report ID: [id number] Reading Location: [id number] Procedure Note Farida Mahmood MD - 11/04/2024 [...] Farida Mahmood M.D. SN T: Report ID: [id number] Reading Location: [place] [address] us Neel So MD IMG CT PROCEDURES Final Re sult * Urinalysis reflex to microscopic and culture Urine (11/04/2024 5:27 AM CDT) Color, ur Yellow Yellow Clarity, ur Clear Clear [facility] Specific gravity, ur 1.021 1.003 - 1.030 [facility] pH, urine 6.5 [facility] Comment: Interpretive Data U rine pH is affected by diet, medications, systemic acid-base disturbances, and renal tubular function. pH may affect urinary stone formation. For example, urine pH below 6.0 may help reduce the tendency for calcium phosphate stones and pH greater than 6.0 may reduce the tendency for uric acid stone formation. Source: [facility] [place] Current Interpretive Data was last revised on 2017 Protein, ur ql Negative Negative [facility] Glucose, ur ql Negative Negative [facility] Ketones, ur Negative Negative [facility] Bilirubin, ur Negative Negative [facility] Blood, ur Negative Negative [facility] Urobilinogen, ur <2.0 <2.0 mg/dL [facility] Nitrite, ur Negative Negative [facility] Leukocyte esterase, ur Negative Negative [facility] UA reflex comment Reflex conditions for microscopic UA and culture not met. [facility] Urine 11/04/2024 5:27 AM CDT 11/04/2024 5:30 AM CDT us Neel So MD LAB MICROBIOLOGY - GENERAL ORDERABLES Final Result PR[facility]LLA [address] [facility] [place] [address] * (ABNORMAL) Drugs of Abuse Screen, Urine without Confirmation (11/04/2024 5:27 AM CDT) Pathologist [facility] Amphetamine, ur Not Detected CutOff 500ng/mL Comment: [...] Screen Positive, presumptive (A) CutOff 50 ng/mL [facility] Comment: Interpretive Data - Cannabinoids: Samples containing greater than 50 ng/mL delta-9 THC -COOH or other cross- reacting compounds are reported as positive. False positive and false negative results are possible. Confirmatory testing required for definitive results. Current Interpretive Data was last reviewed 2023. Cocaine, ur Not Detected CutOff 150ng/mL [facility] Comment: Interpretive Data - Cocaine: Samples containing [...] AM CDT 11/04/2024 5:30 AM CDT Narrative [facility] - 11/04/2024 5:58 AM CDT Drug of Abuse screening is performed by immunoassay for medical purposes only. This is not to be used for Pain Management purposes. Neel So MD LAB URINE ORDERABLES Final Result Performing Organization Address [facility] Co de Phone Number LEON[address] [address] * Troponin T high-sensitivity 2-hour (11/04/2024 4:17 AM CDT) Trop T hs 8 <=22 ng/L Comment: Interpretive Data For further hscTnT resources including the diagnostic algorithm and an aid in interpretation, copy and paste this link: https://nrl.testcatalog.org/show/hsTrop Current Interpretive Data last revised 2020. Trop T hs delta 1 ng/L [facility] Trop T hs interp Insignificant [facility] Blood 11/04/2024 4:17 AM CDT 11/04/2024 4:20 AM CDT Neel So MD LAB BLOOD ORDERABLES Final Result Performing Organization Address [facility] de Phone Number [address] [address] * ABO / Rh Confirmation Testing (11/04/2024 4:17 AM CDT) ABO/Rh Confirmation NTD Pos [facility] Comment: 11/04/2024 04:48 [id number] Patient demonstrating mixed field reactions in the ABO typing due to unknown cause. ABO typing cannot be interpreted at this time. Blood 11/04/2024 4:17 AM CDT 11/04/2024 4:20 AM CDT Result [facility] Neel So MD LAB BLOOD ORDERABLES Final Result Performing Organization Address [facility] Co de Phone Number [address] [address] MHB * Troponin T high-sensitivity series (baseline, [...] BLOOD ORDERABLES Final Result Performing Organization Address [facility] Co de Phone Number PRISCILLA [address] [facility] [place] [address] * Influenza A/B, RSV, and COVID-19 PCR Nasopharyngeal (11/04/2024 1:26 AM CDT) [facility] COVID-19 RNA Negative Negative Influenza A RNA Negative Negative [facility] Influenza B RNA Negative Negative [facility] RSV RNA Negative Negative [facility] Comment: Interpretive data: Testing performed by [facility]. This test is performed using the [employer] Xpert Xpress CoV-2/Flu/RSV plus assay. This is a multiplex, real-time reverse transcriptase PCR assay intended for the qualitative detection of nucleic acid from SARS-CoV-2, influenza A, influenza B, and respiratory syncytial virus. This assay has been cleared by the [place] Food and Drug administration. The performance characteristics have been verified by the [facility]. Results must be considered in the clinical context, and a negative result does not rule out infection. Interpretive Data last revised 2023 Nasopharyngeal 11/04/2024 1: 26 AM CDT 11/04/2024 1:30 AM CDT Narrative [facility] - 11/04/2024 2:20 AM CDT Is the Patient experiencing symptoms consistent with COVID?->Unknown Neel So MD LAB MICROBIOLOGY - GENERAL ORDERABLES Final Result Performing Organization Address [facility]/ZIP Co de Phone Number PRISCILLA [address] [place] [address] * (ABNORMAL) Lactate (11/04/2024 1:26 AM CDT) Lactate 0.4(L) 0.7 - 2.0 mmol/L Blood 11/04/2024 1:26 AM CDT 11/04/2024 1:30 AM CDT Neel So MD LAB BLOOD ORDERABLES Final Result Performing Organization Address [facility] de Phone Number LEON[address] [place] [address] * eGFR (11/04/2024 1:26 AM CDT) eGFR [...] BLOOD ORDERABLES Final Result Performing Organization Address [facility] Co de Phone Number PRISCILLA [address] [place] [address] * Differential, auto (11/04/2024 1:26 AM CDT) Pathologist [facility] Neutrophil abs 2.07 1.50 - 6.50 K/cumm Imm gran abs 0.00 0.00 - 0.10 K/cumm [facility] Lymphocyte abs 1.51 0.80 - 3.30 K/cumm [facility] Monocyte abs 0.53 0.20 - 0.80 K/cumm [facility] Eosinophil abs 0.14 0.00 - 0.50 K/cumm [facility] Basophil abs 0.01 0.00 - 0.10 K/cumm [facility] Neutrophil pct 48.7 % [facility] Comment: Interpretive Data Percent cell count reference ranges are not reported, since discordance with absolute values may lead to misinterpretation of CBC data. Current Interpretive Data was last revised on 2017. Imm gran pct 0.0 % [facility] Comment: Interpretive Data Percent cell count reference ranges are not reported, since discordance with absolute values may lead to misinterpretation of CBC data. Current Interpretive Data was last revised on 2017. Lymphocyte pct 35.4 % [facility] Comment: Interpretive Data Percent cell count reference ranges are not reported, since discordance with absolute values may lead to misinterpretation of CBC data. Current Interpretive Data was last revised on 2017. Monocyte pct 12.4 % [facility] Comment: Interpretive Data Percent cell count reference ranges are not reported, since discordance with absolute values may lead to misinterpretation of CBC data. Current Interpretive Data was last revised on 2017. Eosinophil pct 3.3 % [facility] Comment: Interpretive Data Percent cell count reference ranges are not reported, since discordance with absolute values may lead to misinterpretation of CBC data. Current Interpretive Data was last revised on 2017. Basophil pct 0.2 % [facility] Comment: Interpretive Data Percent cell count reference ranges are not reported, since discordance with absolute values may lead to misinterpretation of CBC data. Current Interpretive Data was last revised on 2017. Blood 11/04/2024 1:26 AM CDT 11/04/2024 1:30 AM CDT Neel So MD LAB BLOOD ORDERABLES Final Result Performing Organization Address City/[facility]/ZIP Co de Phone Number [address] [place] [address] * Thyroid Function Humphreys (11/04/2024 1:26 AM CDT) Pathologist [facility] TSH 0.41 0.30 - 4.20 mcIUnit/mL Blood 11/04/2024 1:26 AM CDT 11/04/2024 1:30 AM CDT Neel So MD LAB BLOOD ORDERABLES Final Result Performing Organization Address [facility] de Phone Number [address] [place] [address] * (ABNORMAL) CBC with auto differential (11/04/2024 1:26 AM CDT) Pathologist [facility] WBC 4.26 3.80 - 9.90 K/cumm Hgb 13.0 13.0 - 17.5 g/dL [facility] Hct 40.9 38.9 - 50.3 % [facility] Plt 216 150 - 400 K/cumm [facility] MPV 9.6 9.1 - 12.3 fL [facility] RBC 4.69 4.30 - 5.80 M/cumm [facility] MCV 87.2 81.3 - 96.4 fL [facility] MCH 27.7 27.1 - 33.3 pg [facility] MCHC 31.8(L) 32.3 - 35.7 g/dL [facility] RDW CV 13.6 11.1 - 14.9 % [facility] RDW SD 43.1 35.7 - 48.1 fL [facility] NRBC abs 0.00 0.00 - 0.01 K/cumm [facility] Blood 11/04/2024 1:26 AM CDT 11/04/2024 1:30 AM CDT Neel So MD LAB BLOOD ORDERABLES Final Result Performing Organization Address [facility] de Phone Number LE[address] [address] * ABO/Rh (11/04/2024 1:26 AM CDT) ABO/Rh NTD Pos Comment: 11/04/2024 04:45 [id number] Patient demonstrating mixed field reactions in the ABO typing due to unknown cause. ABO typing cannot be interpreted at this time. Blood 11/04/2024 1:26 AM CDT 11/04/2024 1:30 AM CDT Narrative [facility] - 11/04/2024 4:47 AM CDT Has the patient had Daratumumab or Isatuximab in the past 6 months?->Unknown Neel So MD LAB BLOOD BANK TEST ORDERA BLES Final Result Performing Organization Address [facility] de Phone Number [address] [address] * aPTT (11/04/2024 1:26 AM CDT) aPTT 28 22 - 37 sec Comment: Interpretive data aPTT test has not been evaluated for monitoring heparin therapy. The anti-Xa is the preferred test. Current interpretive data was last revised on 2019. Blood 11/04/2024 1:26 AM CDT 11/04/2024 1:30 AM CDT Neel So MD LAB BLOOD ORDERABLES Final Result Performing Organization Address [facility] de Phone [place] [address] [facility] [place] [address] * Protime-INR (11/04/2024 1:26 AM CDT) PT [...] BLOOD ORDERABLES Final Result Performing Organization Address City/[facility] Co de Phone Number [address] [place] [address] * Antibody screen (11/04/2024 1:26 AM CDT) Pathologist [facility] Tanvi, indirect, Gel Interpretation Negative ABSC Blood 11/04/2024 1:26 AM CDT 11/04/2024 1:30 AM CDT Narrative [facility]LLA - 11/04/2024 4:47 AM CDT Has the patient had Daratumumab or Isatuximab in the past 6 months?->Unknown Neel So MD LAB BLOOD BANK TEST ORDERA BLES Final Result Performing Organization Address [facility] de Phone Number [address] [address] * Phosphorus (11/04/2024 1:26 AM CDT) Pathologist [facility] Phosphorus, pl 2.9 2.3 - 4.5 mg/dL Blood 11/04/2024 1:26 AM CDT 11/04/2024 1:30 AM CDT Neel So MD LAB BLOOD ORDERABLES Final Result Performing Organization Address [facility] de Phone Number [address] [address] * Magnesium (11/04/2024 1:26 AM CDT) Pathologist [facility] Magnesium 1.7 1.4 - 2.5 mg/dL Blood 11/04/2024 1:26 AM CDT 11/04/2024 1:30 AM CDT Neel So MD LAB BLOOD ORDERABLES Final Result Performing Organization Address [facility] de Phone Number [address] [place] [address] * Lipase (11/04/2024 1:26 AM CDT) Pathologist [facility] Lipase 36 10 - 99 Units/L Blood 11/04/2024 1:26 AM CDT 11/04/2024 1:30 AM CDT Neel So MD LAB BLOOD ORDERABLES Final Result Performing Organization Address [facility] Phone Number [address] [address] * Ethanol (11/04/2024 1:26 AM CDT) [facility] Ethanol <10 <=10 mg/dL Comment: Interpretive Data Legal limit of intoxication > or = 80 mg/dL Levels > or = 400 mg/dL are potentially TOXIC. Current interpretive data was last revised on 2018. Blood 11/04/2024 1:26 AM CDT 11/04/2024 1:30 AM CDT Neel So MD LAB BLOOD ORDERABLES Final Result Performing Organization Address [facility] de Phone Number [address] [place] [address] * (ABNORMAL) Comprehensive metabolic panel (11/04/2024 1:26 AM CDT) [facility] Sodium 139 135 - 145 mmol/L Potassium, pl 4.3 3.3 - 4.9 mmol/L [facility] Chloride 106 97 - 110 mmol/L [facility] CO2 24 22 - 32 mmol/L [facility] Anion gap 9 2 - 15 mmol/L [facility] BUN 12 6 - 25 mg/dL [facility] Creatinine 1.10 0.80 - 1.30 mg/dL [facility] Glucose 91 70 - 199 mg/dL [facility] Comment: Interpretive Data Fasting glucose >/= [...] 2022. Calcium 8.1(L) 8.5 - 10.3 mg/dL [facility] Bilirubin, total 0.2 0.1 - 1.2 mg/dL [facility] Protein, pl 6.9 6.5 - 8.5 g/dL [facility] Albumin 4.0 3.5 - 5.0 g/dL [facility] Alk phos 64 40 - 130 Units/L [facility] ALT 20 7 - 55 Units/L [facility] AST 23 10 - 50 Units/L [facility] Blood 11/04/2024 1:26 AM CDT 11/04/2024 1:30 AM CDT us Neel So MD LAB BLOOD ORDERABLES Final Result Performing Organization Address City/State/[facility] Co de Phone Number [facility] [address] [facility] [place] [address] * ECG 12 lead (11/04/2024 1:07 AM CDT) Pathologist [facility] Ventricular Rate EKG/Min 58 BPM [facility] Atrial Rate 58 BPM [facility] [place]-Interval (MSEC) 162 ms [facility] QRS-Interval (MSEC) 110 ms [facility] QT-Interval (MSEC) 370 ms [facility] QTc 363 ms [facility] P [place] 17 degrees [facility] R [place] 78 degrees [facility] T [place] 55 degrees [facility] Diagnosis Sinus bradycardia with sinus arrhythmia Possible Left atrial enlargement Left ventricular hypertrophy ST elevation, consider early repolarization , pericarditis, or injury Abnormal ECG When compared with ECG of 07-OCT-2023 01:51, T wave inversion now evident in Anterior leads Confirmed by HARRY LI M.D. ([id number]) on 11/09/2024 1:32:02 PM [facility] 11/04/2024 1:07 AM CDT 11/09/2024 1:32 PM CDT us Neel oS MD ECG ORDERABLES Final Resu lt [facility] from Last 3 Months Insurance Advance Directives For more information, please contact: [phone] * Full Code (Latest Code Status on [...] 6:32 AM 09/09/2023 5:23 PM Care Teams [employer] Relationship Specialty Start Date End Date No, Physician PCP - General 11/30/20
--- OUTSIDE RECORDS SUMMARY | 2025-01-12 22:26 | XMS_ITS | Referral Summary ---
Author Organization [facility] Address [address] [place] [address] Care Team Providers Care Tong Setter Name Role Phone No, Physician Primary Care Provider [phone] Encounters Date Type Department Care Team Description 01/06/2025 2:01 PM CDT - 01/09/2025 3:55 PM CDT Hospital Encounter [facility] [address] [place] [id number] Filipe Claros MD L'Ecuyer, Suzanne, MD de [...] CDT - 01/06/2025 12:58 PM CDT Emergency [facility] Emergency Department [address] [place] [id number] Jose Sullivan MD Zozula, Jaskaran Macdonald MD Suicidal ideation (Primary Dx) Discharge Disposition: Discharge to psych hospital or psych unit 01/04/2025 [facility] Post Discharge Follow up phone call [facility] [address] [place] [address] Anastasiia Montano 01/01/2025 10:08 PM CDT - 01/02/2025 2:26 AM CDT Emergency [facility] Emergency Department 1 [place] [address] Irina Yeager MD Suicidal ideation (Primary Dx) Discharge Disposition: Discharge to home or self care 12/29/2024 10:58 PM CDT - 12/30/2024 4:10 PM CDT Hospital Encounter [facility] IMU [address] [place] [phone] Jose Sullivan MD Fasick, Victoria Rose, DO Richards, John Albert Jr., MD Chest pain, unspecified type (Primary Dx); Other chest pain; Chronic pericarditis; Acute idiopathic pericarditis Discharge Disposition: Discharge to home or self care 12/20/2024 5:19 PM CDT - 12/21/2024 12:03 PM T [facility] Emergency Department [address] [place] [phone] Renetta Echols MD Suicidal ideation (Primary Dx) Discharge Disposition: Discharge to psych hospital or psych unit 11/04/2024 12:54 AM CDT - 11/04/2024 12:05 PM T [address] [address] Neel So MD Depression with suicidal ideation [...] 09/30/2024 Assessment & Plan (09/30/2024 9:09 AM HIV/AIDS CARE NURSE): Will try to obtain iron studies I asked SW to help w/ PCP followup Epigastric pain 09/30/2024 Assessment & Plan (09/30/2024 9:17 AM HIV/AIDS CARE NURSE): When asked where his pericarditis pain is, he points to the epigastrium. When I saw him in 11/2023, I had requested an H pylori stool antigen, which we were not able to obtain. -Try again to obtain H pylori antigen (especially w/ history of anemia) Depression 09/29/2024 Assessment & Plan (09/29/2024 1:17 PM HIV/AIDS CARE NURSE): As per psychiatry Will addon a TSH Pericarditis 09/29/2024 Assessment & Plan (09/30/2024 9:10 AM HIV/AIDS CARE NURSE): Currently asymptomatic. Will obtain EKG. Will restart colchicine if symptoms recurs EKG w/ diffuse ST elevation in II, III, aVF, and V1-6, with no CT depression This might also be early repolarization See my notes from 11/16/23 and 11/17/23 for my thought process then He has a test car driver (Dr Rivera, in [place]) with whom he can follow up Routine general medical exam ination at a health care facility 09/29/2024 Assessment & Plan (09/29/2024 1:17 PM HIV/AIDS CARE NURSE): HIV, RPR negative Will recheck here Addon B12, TSH GERD (gastroesophageal reflux disease) Assessment & Plan (09/29/2024 1:18 PM HIV/AIDS CARE NURSE): Hold off PPI for now as he notes no symptoms of acid reflux. Low threshold to restart. The chest pain (when present) he notes is epigastric so that may be a component of GERD Renal lesion 09/29/2024 Assessment & Plan (09/30/2024 9:09 AM HIV/AIDS CARE NURSE): 11/02/23 CT: There are 3 low-attenuation lesions [...] follows w/ Dr Cat Choudhary (cardiology w/ [facility]), which he will follow up with [...] 11/16/2023 Assessment & Plan (09/30/2024 9:11 AM HIV/AIDS CARE NURSE): B12 300, same as 11/2023. Will replete [...] 11/16/2023 Assessment & Plan (09/30/2024 9:11 AM HIV/AIDS CARE NURSE): Late latent, appropriately treated. See my 11/15/24 note Assessment & Plan (11/16/2023 1:25 PM CDT): As per my colleague Dr Bynum (see 09/07/23 medicine c/s note): - Has history of Syphilis, treated in 2013 , -Treponema ab + and RPR 1:4 on 08/29/23 when tested at [facility] ED Contacted [facility] ( [place] ) for info To see if titers are coming down , left message with Nurse ( [phone]): Called back received, Patient diagnosed with late latent syphilis at [facility] in [place] on 10-11 : +RPR titer 1 :256, treponema -EIA positive Completed treatment with benzathine penicillin G x 3 doses given on November 21 2013, November 28 2013 and December 052013 So appropriately treated Lumbar strain, initial encounter 09/16/2023 Anemia 09/08/2023 Assessment & Plan (09/08/2023 8:05 PM HIV/AIDS CARE NURSE): -possible hx of GI bleed in June, [...] disease) Assessment & Plan (09/08/2023 5:10 AM HIV/AIDS CARE NURSE): -continue pepcid Adjustment disorders, with mixed anxiety and dep ressed mood 09/07/2023 Assessment & Plan (09/08/2023 4:53 AM HIV/AIDS CARE NURSE): Per Psychiatry Cannabis use disorder, moderate, dependence 01/2024 Assessment & Plan (09/08/2023 4:53 AM HIV/AIDS CARE NURSE): Per Psychiatry History of syphilis 09/07/2023 Assessment & Plan (09/08/2023 12:28 PM HIV/AIDS CARE NURSE): - Has history of Syphilis, treated in 2013 , -Treponema ab + and RPR 1:4 on 08/29/23 when tested at [facility] ED Contacted [facility] ( [place] ) for info To see if titers are coming down , left message with Nurse ( [phone]): Called back received, Patient diagnosed with late latent syphilis at [facility] in [place] on 10-11 : +RPR titer 1 :256, [...] recs Assessment & Plan (07/27/2023 10:01 AM HIV/AIDS CARE NURSE): Wes has been struggling for the last 4 years with unstable realtionships, unstable housing, difficulty finding and maintaining employment, and in and out of assisted/custodial/probation. He says that he is sad about [...] Med recs apprec; h/o pericarditis Swer to [facility] with follow-up and dispo Assessment & Plan (07/26/2023 9:44 AM HIV/AIDS CARE NURSE): Wes has been struggling for the last 4 years with unstable realtionships, unstable housing, difficulty finding and maintaining employment, and in and out of assisted/custodial/probation. He says that he is sad about [...] Med recs apprec; h/o pericarditis Swer to [facility] with follow-up and dispo Assessment & Plan (07/25/2023 12:24 PM HIV/AIDS CARE NURSE): Wes has been struggling for the last 4 years with unstable realtionships, unstable housing, difficulty finding and maintaining employment, and in and out of assisted/custodial/probation. He says that he is sad about [...] Med recs apprec; h/o pericarditis Swer to [facility] with follow-up and dispo Assessment & Plan [...] was started on Abilify and Depakote in [place], and reports that his visual and auditory hallucinations have resolved. - Start Sertraline 50mg, consider titrating - Obtain further information about the hallucinations - Haldol 5 p.o. or Haldol 5/Ativan 2 IM PRN for agitation - Suicide/elopement/safety precautions - Therapeutic milieu - q15 min safety checks Asthma 05/22/2023 Assessment & Plan (09/29/2024 1:14 PM HIV/AIDS CARE NURSE): Mild. Prn albuterol Assessment & Plan (09/08/2023 5:12 AM HIV/AIDS CARE NURSE): - no PFTs available , currently not in exacerbation, - PRN albuteral Assessment & Plan (07/25/2023 10:37 AM HIV/AIDS CARE NURSE): Intermittent. No symptoms. Uses albuterol prn at [...] (11/04/2024): Added automatically from request for surgery [id number] Resolved Problems Problem Noted Date Diagnosed Date Resolved Date history of Pericarditis 09/07/202310/31 Assessment & Plan (09/08/2023 8:04 PM HIV/AIDS CARE NURSE): - patient has not been able to afford colchicine and reports benefit when getting doses in ED visits - continue colchicine 0.6 mg po BID and monitor for side effects, it should be held if nausea, vomiting, diarrhea -Hold NSAIDS as -he as not tolerated with significant Gi side effects -Patient was seen by Cardiology as outpatient on 09/02/2023 at [facility] ([facility]) and has [...] psychiatry Assessment & Plan (07/25/2023 10:36 AM HIV/AIDS CARE NURSE): Pt w/ hx of depression and anxiety [...] drink = 0.6 oz pur e alcohol) [facility] Utilities Answer Date Recorded In the past 12 months has e [employer], gas, oil, or water [employer] threatened to shut off services in your [...] How often do you attend chur or hoahaoism services? Never 01/07/2025 Do you belong to [...] staff should administer the PHQ-9) 2 09/07/2023 [facility] - Occupational [...] any time in the past 12 m [facility], were you homeless or living in a [...] on file Legal Sex Male 5:49 PM HIV/AIDS CARE NURSE Gender Identity Not on file Sexual Orientation [...] tendency for uric acid stone formation. Source: [facility] [place] Current Interpretive Data was last revised on [...] DERABLES Final Result [facility] ([facility]) 1 [facility] [place] [address] * (ABNORMAL) Drugs of Abuse Screen, Urine without Confirmation (01/06/2025 12:40 AM CDT) [facility] Amphetamine, ur Not Detected CutOff 500ng/mL Comment: Interpretive Data - Amphetamines: Samples containing greater than 500 ng/mL d-methamphetamine or other cross-reacting amphetamine compounds are reported as positive. Amphetamine immunoassays are subject to significant false positive rates due to cross-reactivity of non-amphetamine drugs. Confirmatory testing required for definitive results. Current Interpretive Data was last reviewed 2023. Barbiturates, ur Not Detected CutOff 200ng/mL [facility] ([facility]) Comment: Interpretive Data - Barbiturates: Samples containing [...] ORDERABLES Final Re sult Performing Organization Address [facility]/ZIP Co de Phone Number [facility]REOL[facility] ([facility]) 1 [facility] [place] [address] * (ABNORMAL) Urinalysis, microscopic only (01/06/2025 12:40 [...] ORDERABLES Final Re sult Performing Organization Address City/[facility]/ZIP Co de Phone Number [facility] ([facility]) [address] [place] [address] [place] [address] * Urine culture Urine (01/06/2025 12:40 AM CDT) Report Final Report: Less than 100,000 colonies/mL (clinically insignificant growth based on current clinical standards) Comment:Testing performed by : [facility], [address] [facility] [place]., [address] Organism (CLINICALLY INSIGNIFICANT GROWTH [facility] ([facility]) Urine 01/06/2025 12:4 0 AM CDT 01/06/2025 6:07 AM CDT Narrative [facility] ([facility]) - 01/07/2025 12:32 PM CDT Urine culture reflexed based upon urinalysis results. Testing performed by [facility] ([phone]) us Jose Sullivan MD LAB MICROBIOLOGY - GENERAL OR DERABLES Final Result Performing Organization Address City/[facility]/ZIP Co de Phone Number [facility] ([place]) 1 [facility] [place] [address] * COVID-19 Coronavirus RNA Nasopharyngeal (01/06/2025 12:32 AM CDT) COVID-19 RNA Negative Negative Nasopharyngeal 01/06/2025 12 :32 AM CDT 01/06/2025 12:47 AM CDT Narrative [facility] ([facility]) - 01/06/2025 1:25 AM CDT Is the patient experiencing any symptoms consistent with COVID (eg. Fever, cough, shortness of breath)?->No What is the reason for testing?->Screening for semi-private room placement Interpretive data: Testing performed by [facility]. This test is performed using the [employer] Xpert Xpress CoV-2 plus assay. This is a real-time RT-PCR test intended for the qualitative detection of nucleic acid from the SARS-CoV-2. This assay has been cleared by the [place] Food and Drug administration. The performance characteristics have been verified by [facility]. Results must be considered in the clinical context, and a negative result does not rule out infection. Interpretive data last revised 2024. Interpretive data: Testing performed by [facility]. This test is performed using the [employer] Xpert Xpress CoV-2 plus assay. This is a real-time RT-PCR test intended for the qualitative detection of nucleic acid from the SARS-CoV-2. This assay has been cleared by the [place] Food and Drug administration. The performance characteristics have been verified by [facility]. Results must be considered in the clinical context, and a negative result does not rule out infection. Interpretive data last revised 2024. us Jose Sullivan MD LAB MICROBIOLOGY - GENERAL OR DERABLES Final Result [facility] ([place]) 1 [facility] [place] [address] * eGFR (01/06/2025 12:32 AM CDT) eGFR [...] LAB BLOOD ORDERABLES Final Re sult [facility] 1 [facility] Department [place] [address] * Differential, auto (01/06/2025 12:32 AM CDT) Neutrophil abs 5.57 1.50 - 6.50 K/cumm Imm gran abs 0.04 0.00 - 0.10 K/cumm [facility] Lymphocyte abs 1.68 0.80 - 3.30 K/cumm [facility] Monocyte abs 0.41 0.20 - 0.80 K/cumm [facility] ([place]) Eosinophil abs 0.13 0.00 - 0.50 K/cumm [facility] Basophil abs 0.03 0.00 - 0.10 K/cumm [facility] Neutrophil pct 70.8 % [facility] [...] Final Re sult [facility] ([place]) 1 [facility] Department [place] [address] * Thyroid Function [place] (01/06/2025 12:32 AM CDT) TSH 1.00 0.30 - 4.20 mcIUnit/mL Blood 01/06/2025 12:3 2 AM CDT 01/06/2025 12:47 AM CDT us Jose Sullivan MD LAB BLOOD ORDERABLES Final Re sult [facility] ([place] 1 [facility] Department [place] [address] * CBC with auto differential (01/06/2025 12:32 [...] 28.8 27.1 - 33.3 pg [facility] ([place]) MCHC 32.5 32.3 - 35.7 g/dL [facility] ([place]) RDW CV 13.5 11.1 - 14.9 % [facility] RDW SD 43.3 35.7 - 48.1 fL [facility] NRBC abs 0.00 0.00 - 0.01 K/cumm [facility] Blood Venous blood specimen / Unknown 01/06/2025 12:32 AM CDT 01/06/2025 12:47 AM CDT us Jose Sullivan MD LAB BLOOD ORDERABLES Final Re sult [facility] ([place]) 1 [facility] Department [place] [address] * Ethanol (01/06/2025 12:32 AM CDT) Ethanol <10 <=10 mg/dL Comment: Interpretive Data Legal limit of intoxication > or = 80 mg/dL Levels > or = 400 mg/dL are potentially TOXIC. Current interpretive data was last revised on 2018. Blood 01/06/2025 12:3 2 AM CDT 01/06/2025 12:47 AM CDT us Jose Sullivan MD LAB BLOOD ORDERABLES Final Re sult [facility] ([facility]) 1 [facility] Department [place] [address] * (ABNORMAL) Comprehensive metabolic panel (01/06/2025 12:32 [...] Protein, pl 7.4 6.5 - 8.5 g/dL [facility] Albumin 4.1 3.5 - 5.0 g/dL [facility] Alk phos 63 40 - 130 Units/L [facility] ALT 33 7 - 55 Units/L [facility] ([facility] Comment: Hemolysis present. Results may be affected. Moderately Hemolyzed Specimen AST 34 10 - 50 Units/L [facility] ([facility] Comment: Hemolysis present. Results may be affected. Moderately Hemolyzed Specimen Blood 01/06/2025 12:3 2 AM CDT 01/06/2025 12:47 AM CDT Jose Sullivan MD LAB BLOOD ORDERABLES Final Re sult [facility] ([place]) 1 [facility] Department [place] [address] * eGFR (01/01/2025 10:28 PM CDT) eGFR [...] ORDERABLES Final R esult [facility] Department [place] [address] * (ABNORMAL) Differential, auto (01/01/2025 10:28 PM CDT) Neutrophil abs 4.69 1.50 - 6.50 K/cumm Imm gran abs 0.02 0.00 - 0.10 K/cumm [facility] Lymphocyte abs 1.78 0.80 - 3.30 K/cumm [facility] Monocyte abs 0.87(H) 0.20 - 0.80 K/cumm [facility] Eosinophil abs 0.17 0.00 - 0.50 K/cumm [facility] Basophil abs 0.03 0.00 - 0.10 K/cumm [facility] Neutrophil pct 62.1 % [facility] Comment: Interpretive Data Percent cell count reference ranges are not reported, since discordance with absolute values may lead to misinterpretation of CBC data. Current Interpretive Data was last revised on 2017. Imm gran pct 0.3 % [facility] Comment: Interpretive Data Percent cell count reference ranges are not reported, since discordance with absolute values may lead to misinterpretation of CBC data. Current Interpretive Data was last revised on 2017. Lymphocyte pct 23.5 % [facility] Comment: Interpretive Data Percent cell count reference ranges are not reported, since discordance with absolute values may lead to misinterpretation of CBC data. Current Interpretive Data was last revised on 2017. Monocyte pct 11.5 % [facility] Comment: Interpretive Data Percent cell count reference ranges are not reported, since discordance with absolute values may lead to misinterpretation of CBC data. Current Interpretive Data was last revised on 2017. Eosinophil pct 2.2 % [facility] Comment: Interpretive Data Percent cell count reference ranges are not reported, since discordance with absolute values may lead to misinterpretation of CBC data. Current Interpretive Data was last revised on 2017. Basophil pct 0.4 % [facility] Comment: Interpretive Data Percent cell count reference ranges are not reported, since discordance with absolute values may lead to misinterpretation of CBC data. Current Interpretive Data was last revised on 2017. Blood 01/01/2025 10:2 8 PM CDT 01/01/2025 10:35 PM CDT us Irina Yeager MD LAB BLOOD ORDERABLES Final R esult [facility] Department [place] [address] * (ABNORMAL) Urinalysis reflex to microscopic (01/01/2025 10:28 PM CDT) Color, ur Yellow Yellow Clarity, ur Clear Clear [facility] Specific gravity, ur 1.027 1.003 - 1.030 [facility] pH, urine 6.0 [facility] Comment: Interpretive Data U rine pH is affected by diet, medications, systemic acid-base disturbances, and renal tubular function. pH may affect urinary stone formation. For example, urine pH below 6.0 may help reduce the tendency for calcium phosphate stones and pH greater than 6.0 may reduce the tendency for uric acid stone formation. Source: [facility] Current Interpretive Data was last revised on 2017 Protein, ur ql 1+(A) Negative [facility] Glucose, ur ql Negative Negative [facility] Ketones, ur Negative Negative [facility] Bilirubin, ur Negative Negative [facility] Blood, ur 2+(A) Negative [facility] Urobilinogen, ur <2.0 <2.0 mg/dL [facility] Nitrite, ur Negative Negative [facility] Leukocyte esterase, ur Negative Negative [facility] UA reflex comment Reflex to microscopic UA will be performed. [facility] Urine 01/01/2025 10:2 8 PM CDT 01/01/2025 10:33 PM CDT us Irina Yeager MD LAB URINE ORDERABLES Final R esult [facility] Department [place] [address] * CBC with auto differential (01/01/2025 10:28 PM CDT) Pathologist [facility] WBC 7.56 3.80 - 9.90 K/cumm Hgb 14.8 13.0 - 17.5 g/dL [facility] Hct 45.4 38.9 - 50.3 % [facility] Plt 308 150 - 400 K/cumm [facility] MPV 10.1 9.1 - 12.3 fL [facility] RBC 5.26 4.30 - 5.80 M/cumm [facility] MCV 86.3 81.3 - 96.4 fL [facility] MCH 28.1 27.1 - 33.3 pg [facility] MCHC 32.6 32.3 - 35.7 g/dL [facility] RDW CV 13.4 11.1 - 14.9 % [facility] RDW SD 42.3 35.7 - 48.1 fL [facility] NRBC abs 0.00 0.00 - 0.01 K/cumm [facility] Blood Venous blood specimen / Unknown 01/01/2025 10:28 PM CDT 01/01/2025 10:35 PM CDT Irina Yeager MD LAB BLOOD ORDERABLES Final R esult [facility] Department [place] [address] * (ABNORMAL) Urinalysis, microscopic only (01/01/2025 10:28 PM CDT) Pathologist [facility] WBC, ur 0-5 0 - 5 /HPF RBC, ur >50(A) 0 - 2 /HPF [facility] Mucous, ur Present(A) [facility] Urine 01/01/2025 10:2 8 PM CDT 01/01/2025 10:33 PM CDT Irina Yeager MD LAB URINE ORDERABLES Final R esult Performing Organization Address City/[facility]/ZIP Co de Phone Number [facility] [place] [address] * Lipase (01/01/2025 10:28 PM CDT) Lipase 26 10 - 99 Units/L Blood Venous blood specimen / Unknown 01/01/2025 10:28 PM CDT 01/01/2025 10:34 PM CDT Irina Yeager MD LAB BLOOD ORDERABLES Final R esult Performing Organization Address [facility] Co de Phone Number [facility] Department [place] [address] * (ABNORMAL) Creatine kinase (CK), total (01/01/2025 10:28 PM CDT) CK 632(H) 40 - 300 Units/L Blood 01/01/2025 10:2 8 PM CDT 01/01/2025 10:34 PM CDT Irina Yeager MD LAB BLOOD ORDERABLES Final R esult Performing Organization Address City/[facility] Co de Phone Number [facility] Department [place] [address] * Acetaminophen level (01/01/2025 10:28 PM CDT) [...] after ingestion Consult toxicology or poison control ([phone]) for unknown ingestion time. Current interpretive data was last revised 2023. Blood 01/01/2025 10:2 8 PM CDT 01/01/2025 10:34 PM CDT Maye Pradhan [employer] LAB BLOOD ORDERABLES Final Result Performing Organization Address [facility] de Phone Number [facility] [place] [address] * Salicylate level (01/01/2025 10:28 PM CDT) Salicylate <9.0 <=9.0 mg/dL Comment: Interpretive Data Toxic: 30 mg/dL or greater. Current interpretive data was last revised 2023. Blood 01/01/2025 10:2 8 PM CDT 01/01/2025 10:34 PM CDT Maye Pradhan [employer] LAB BLOOD ORDERABLES Final Result Performing Organization Address [facility] de Phone Number [facility] [address] * (ABNORMAL) Valproic acid level, total (01/01/2025 [...] BLOOD ORDERABLES Final Result Performing Organization Address [facility] de Phone Number [facility] [place] [address] * Comprehensive metabolic panel (01/01/2025 10:28 PM CDT) Sodium 141 135 - 145 mmol/L Potassium, pl 4.0 3.3 - 4.9 mmol/L [facility] Comment:Hemolyzed; Potassium value may be falsely elevated by as much as 0.3-0.5 mmol/L. Suggest redraw and reanalysis. Chloride 105 97 - 110 mmol/L [facility] CO2 26 22 - 32 mmol/L [facility] Anion gap 10 2 - 15 mmol/L [facility] [facility] BUN 10 6 - 25 mg/dL [facility] Creatinine 1.24 0.80 - 1.30 mg/dL [facility] Glucose 123 70 - 199 mg/dL [facility] Comment: Interpretive Data Fasting glucose [...] 2022. Calcium 9.8 8.5 - 10.3 mg/dL [facility] Bilirubin, total 0.2 0.1 - 1.2 mg/dL [facility] Protein, pl 8.1 6.5 - 8.5 g/dL [facility] Albumin 4.3 3.5 - 5.0 g/dL [facility] Alk phos 78 40 - 130 Units/L [facility] ALT 40 7 - 55 Units/L [facility] AST 47 10 - 50 Units/L [facility] Comment:Hemolyzed; result ma y be falsely elevated Blood 01/01/2025 10:2 8 PM CDT 01/01/2025 10:34 PM CDT Irina Yeager MD LAB BLOOD ORDERABLES Final R esult [facility] Department of Laboratories [place], [place] [id number] * ANUSHKA screen w/rflx FLIP+dsDNA (12/30/2024 11:56 [...] last revised on 2020. Testing performed by: [facility], [address] [place] [address], [place]., [address] Blood 12/30/2024 11:5 6 AM CDT 12/30/2024 3:00 PM CDT us Navarro Zuleta Jr., MD LAB BLOOD ORDERABLE S Final Result Performing Organization Address City/[facility] Co de Phone Number PRISCILLA [facility] [place] 1 [facility] Department [place] [address] * HIV 1/2 Antibody plus p24 Antigen Blood (12/30/2024 11:56 AM CDT) HIV 1/2 ab + p24 ag Nonreactive Nonreactive Comment: Nonreactive for HIV-1 antigen and HIV-1/HIV-2 antibodies. No laboratory evidence of HIV infection. If acute HIV infection is suspected, consider testing for HIV-1 RNA. Testing performed by: [facility], [address] [place] [address], [place] [address] Blood 12/30/2024 11:5 6 AM CDT 12/30/2024 1:50 PM CDT us Navarro Zuleta Jr., MD LAB MICROBIOLOGY - GENERAL ORDERABLES Final Result [facility] ([place]) 1 [facility] [place] [address] * RPR Blood (12/30/2024 11:56 AM CDT) [facility] RPR Nonreactive Nonreactive Comment:Testing performed by : [facility], [address] [place] [address], [place]., [address] Blood 12/30/2024 11:5 6 AM CDT 12/30/2024 1:50 PM CDT us Navarro Zuleta Jr., MD LAB MICROBIOLOGY - GENERAL ORDERABLES Final Result Performing Organization Address [facility] Co de Phone Number [facility] ([place] 1 [facility] [place] [address] * Troponin T high-sensitivity 6-hour (12/30/2024 5:09 AM CDT) [facility] Trop T hs 20 <=22 ng/L Comment: Interpretive Data For further hscTnT resources including the diagnostic algorithm and an aid in interpretation, copy and paste this link: https://nrl.testcatalog.org/show/hsTrop Current Interpretive Data last revised 2020. Trop T hs delta -9 ng/L [facility] ([place]) Trop T hs interp Equivocal [facility] ([place]) Blood 12/30/2024 5:09 AM CDT 12/30/2024 5:12 AM CDT us Larissa Medellin MD LAB BLOOD ORDERABLES Vickie l Result [facility] ([place]) 1 [facility] [place] [address] * eGFR (12/30/2024 5:09 AM CDT) [facility] eGFR >90 >=60 mL/min/1. 73 m2 Comment: [...] DO LAB BLOOD ORDERABLES Fin al Result [facility] ([place]) 1 [facility] Department [place] [address] * (ABNORMAL) Differential, auto (12/30/2024 5:09 AM [...] BLOOD ORDERABLES Fin al Result [facility] ([place]) 1 [facility] [place] [address] * (ABNORMAL) CBC with auto differential (12/30/2024 [...] RDW SD 45.9 35.7 - 48.1 fL [facility] NRBC abs 0.00 0.00 - 0.01 K/cumm [facility] Blood 12/30/2024 5:09 AM CDT 12/30/2024 5:12 AM CDT Kelly Knight DO LAB BLOOD ORDERABLES Fin al Result [facility] ([place] 1 [facility] [place] [address] * Phosphorus (12/30/2024 5:09 AM CDT) Phosphorus, pl 3.8 2.3 - 4.5 mg/dL Blood 12/30/2024 5:09 AM CDT 12/30/2024 5:12 AM CDT Kelly Knight DO LAB BLOOD ORDERABLES Fin al Result [facility] ([place] [place] [address] * Magnesium (12/30/2024 5:09 AM CDT) Magnesium 1.8 1.4 - 2.5 mg/dL Blood 12/30/2024 5:09 AM CDT 12/30/2024 5:12 AM CDT Kelly Michelle Fasick DO LAB BLOOD ORDERABLES Fin al Result [facility] ([place] 1 [facility] Department [place] [address] * Comprehensive metabolic panel (12/30/2024 5:09 AM [...] ORDERABLES Fin al Result Performing Organization Address [facility] Co de Phone Number [facility] ([place] 1 [facility] [place] [address] * Erythrocyte sedimentation rate (12/30/2024 5:07 AM CDT) Erythrocyte sedimentation rate 11 1 - 15 mm/hr Blood 12/30/2024 5:07 AM CDT 12/30/2024 6:46 AM CDT Navarro Zuleta Jr., MD LAB BLOOD ORDERABLE S Final Result Performing Organization Address [facility] de Phone Number [facility] ([place]) 1 [place] [address] * CRP (acute phase) (12/30/2024 5:07 AM CDT) CRP <3.0 <=10.0 mg/L Blood 12/30/2024 5:07 AM CDT 12/30/2024 6:48 AM CDT Navarro Zuleta Jr., MD LAB BLOOD ORDERABLE S Final Result Performing Organization Address [facility] Co de Phone Number [facility] ([place] 1 [facility] [place] [address] * (ABNORMAL) Troponin T high-sensitivity 2-hour (12/30/2024 [...] ORDERABLES Vickie l Result Performing Organization Address [facility] Co de Phone Number [facility] ([place] 1 [facility] [place] [address] * Lipase (12/30/2024 12:43 AM CDT) Lipase 25 10 - 99 Units/L Blood 12/30/2024 12:4 3 AM CDT 12/30/2024 1:46 AM CDT Kelly Knight DO LAB BLOOD ORDERABLES Fin al Result Performing Organization Address [facility] de Phone Number [facility] ([place] 1 [facility] [place] [address] * ECG 12 lead (12/30/2024 12:32 AM CDT) 12/30/2024 12:3 2 AM CDT Narrative [facility] - 12/30/2024 7:25 AM CDT Vent Rate: 104 bpm RR Interval: [address] Interval: 159 msec QRS Duration: 109 msec QT Interval: 330 msec QTC Interval: 390 msec P-R-T [place]: 56 - 85 - -50 degrees IMPRESSION: SINUS TACHYCARDIA LEFT VENTRICULAR HYPERTROPHY AND ST-T CHANGE [VOLTAGE CRITERIA PLUS ST/T ABNORMALITY] ST ELEVATION, CONSIDER ANTERIOR INJURY [MARKED ST ELEVATION W/O NORMALLY INFLECTED T-WAVE IN V2-V5] ACUTE ID NO CHANGE FROM PREVIOUS TRACING NOTED Electronically Signed By: Skyler Waite MD Jose Sullivan MD ECG ORDERABLES Final Result [facility] * Urinalysis reflex to microscopic and [...] tendency for uric acid stone formation. Source: [facility] [place] Current Interpretive Data was last revised on [...] DERABLES Final Result [facility] ([place] 1 [facility] Department [place] [address] * (ABNORMAL) Drugs of Abuse Screen, Urine [...] Final Re sult [facility] ([place] 1 [facility] [place] [address] * ECG 12 lead (12/29/2024 11:58 PM CDT) 12/29/2024 11:5 8 PM CDT Narrative [facility] - 12/30/2024 7:27 AM CDT Vent Rate: 116 bpm RR Interval: [address] Interval: 163 msec QRS Duration: 106 msec QT Interval: 321 msec QTC Interval: 390 msec P-R-T [place]: 64 - 85 - -64 degrees IMPRESSION: SINUS TACHYCARDIA LEFT VENTRICULAR HYPERTROPHY AND ST-T CHANGE [VOLTAGE CRITERIA PLUS ST/T ABNORMALITY] ST ELEVATION, CONSIDER ANTERIOR INJURY [MARKED ST ELEVATION W/O NORMALLY INFLECTED T-WAVE IN V2-V5] ACUTE ID Compared to prior EKG, heart rate has increased Electronically Signed By: Skyler Waite MD us Jose Sullivan MD ECG ORDERABLES Final Result [facility] * CT Chest PE (CTA) W [...] Richi Farr M.D. KT: KT Report ID: [id number] Reading Location: [id number] Procedure Note Richi Farr MD - 12/30/2024 [...] Richi Farr M.D. KT: NANNETTE Report ID: [id number] Reading Location: [id number] us Jose Sullivan MD IM CT PROCEDURES [...] Sam M.D. AR: JOHN PAUL Report ID: [id number] Reading Location: [id number] Procedure Note Jaskaran Sam MD - 12/29/2024 [...] Sam M.D. AR: JOHN PAUL Report ID: [id number] Reading Location: [place] [address] us Jose Sullivan MD IMG XR PROCEDURES [...] BLOOD ORDERABLES Final Re sult [facility] [place] 6 [facility] Department [place] [address] * eGFR (12/29/2024 11:09 PM [...] MD LAB BLOOD ORDERABLES Vickie elba Result [facility] ([place]) 1 [facility] Department [place] [address] * Differential, auto (12/29/2024 11:09 PM CDT) [...] MD LAB BLOOD ORDERABLES Vickie l Result [facility] ([place]) 1 [facility] [place] [address] * (ABNORMAL) Thyroid Function [place] (12/29/2024 11:09 PM CDT) TSH 0.17(L) 0.30 - 4.20 mcIUnit/mL Blood 12/29/2024 11:0 9 PM CDT 12/30/2024 9:14 AM CDT us Jose Sullivan MD LAB BLOOD ORDERABLES Edited R esult - Final [facility] [place] 1 [facility] [place] [address] * CBC with auto differential (12/29/2024 11:09 [...] ORDERABLES Final Re sult Performing Organization Address [facility] Co de Phone Number [facility] ([place] 1 [facility] [place] [id number] * T3, free (12/29/2024 11:09 PM CDT) Free T3 3.9 2.0 - 4.4 pg/mL Comment:Testing performed by : [facility], [address] [place] [address]., [address] Blood 12/29/2024 11:0 9 PM CDT 12/30/2024 9:14 AM CDT Narrative [facility] ([place]) - 12/30/2024 9:57 AM CDT This test was reflexed from a T4 result. us Jose Sullivan MD LAB BLOOD ORDERABLES Final Re sult Performing Organization Address City/[facility]/ZIP Co de Phone Number [facility] ([place]) 1 [place] [address] * T4, free (12/29/2024 11:09 PM CDT) [facility] Free T4 1.07 0.90 - 1.70 ng/dL Blood 12/29/2024 11:0 9 PM CDT 12/30/2024 9:14 AM CDT Narrative [facility] - 12/30/2024 9:57 AM CDT This test was reflexed from a TSH result. Jose Sullivan MD LAB BLOOD ORDERABLES Edited R esult - Final [facility] ([place]) 1 [place] [address] * Magnesium (12/29/2024 11:09 PM CDT) [facility] Magnesium 1.6 1.4 - 2.5 mg/dL Blood 12/29/2024 11:0 9 PM CDT 12/29/2024 11:15 PM CDT us Jose Sullivan MD LAB BLOOD ORDERABLES Final Re sult [facility] 1 [place] [address] * Comprehensive metabolic panel (12/29/2024 11:09 PM CDT) [facility] Sodium 137 135 - 145 mmol/L Potassium, pl 4.2 3.3 - 4.9 mmol/L [facility] ([place] Chloride 99 97 - 110 mmol/L [facility]) CO2 24 22 - 32 mmol/L [facility] [place]) Anion gap 14 2 - 15 mmol/L [facility] ([place] BUN 8 6 - 25 mg/dL [facility] ([place] Creatinine 1.04 0.80 - 1.30 mg/dL [facility] ([place] Glucose 126 70 - 199 [...] LAB BLOOD ORDERABLES Final Re sult [facility] ([place]) 1 [facility] [place] [address] * (ABNORMAL) Urinalysis reflex to microscopic and culture Urine (12/20/2024 5:19 PM CDT) Color, ur Yellow Yellow Comment:Testing performed by : [address] [address] Clarity, ur Clear Clear [facility]A Comment:Testing performed by : [address] [address] Specific gravity, ur 1.032(H) 1.003 - 1.030 [facility] Comment:Testing performed by : [facility], [address] [place] [address]., [address] pH, urine 6.5 [facility] Comment: Interpretive Data U rine pH is affected by diet, medications, systemic acid-base disturbances, and renal tubular function. pH may affect urinary stone formation. For example, urine pH below 6.0 may help reduce the tendency for calcium phosphate stones and pH greater than 6.0 may reduce the tendency for uric acid stone formation. Source: [facility] [place] Current Interpretive Data was last revised on 2017 Testing performed by: [facility], [address] [place] [address], [place]., [address] Protein, ur ql Trace(A) Negative [facility] Comment:Testing performed by : [address], [place]., [address] Glucose, ur ql Negative Negative [facility]A Comment:Testing performed by : [address], [place]., [address] Ketones, ur Trace(A) Negative [facility]A Comment:Testing performed by : [address], [place]., [address] Bilirubin, ur Negative Negative [facility] Comment:Testing performed by : [address], [place]., [address] Blood, ur 1+(A) Negative [facility] Comment:Testing performed by : [address], [place]., [address] Urobilinogen, ur 2.0(A) <2.0 mg/dL [facility] Comment:Testing performed by : [address] [address] Nitrite, ur Negative Negative [facility] Comment:Testing performed by : [address], [place]., [address] Leukocyte esterase, ur Negative Negative [facility]A Comment:Testing performed by : [address] [address] UA reflex comment Reflex to microscopic UA will be performed. [facility] Comment:Testing performed by : [address], [place]., [address] Urine 12/20/2024 5:19 PM CDT 12/20/2024 5:25 PM CDT us Renetta Echols MD LAB MICROBIOLOGY - GENER AL ORDERABLES Final Result [facility] [facility] Department [place] [address] * (ABNORMAL) Drugs of Abuse Screen, Urine [...] was last reviewed 2023. Testing performed by: [address] [address] Barbiturates, ur Not Detected CutOff 200ng/mL [facility] Comment: Interpretive Data - Barbiturates: Samples containing greater than 200 ng/mL secobarbital or other cross-reacting barbiturate compounds are reported as positive. False positive and false negative results are possible. Confirmatory testing required for definitive results. Current Interpretive Data was last reviewed 2023. Testing performed by: [facility], [address] [place] [address]., [address] Benzodiazepines, ur Not Detected CutOff 100ng/mL [facility] Comment: Interpretive Data - Benzodiazepines: Samples containing greater than 100 ng/mL nordiazepam or other cross-reacting compounds are reported as positive. False positive and false negative results are possible. Confirmatory testing required for definitive results. Current Interpretive Data was last reviewed 2023. Testing performed by: [address] [address] Cannabinoids, ur Screen Positive, presumptive (A) CutOff 50 ng/mL [facility] Comment: Interpretive Data - Cannabinoids: Samples containing greater than 50 ng/mL delta-9 THC -COOH or other cross- reacting compounds are reported as positive. False positive and false negative results are possible. Confirmatory testing required for definitive results. Current Interpretive Data was last reviewed 2023. Testing performed by: [address] [address] Cocaine, ur Not Detected CutOff 150ng/mL [facility] Comment: Interpretive Data - Cocaine: Samples containing greater than 150 ng/mL benzoylecgonine or other cross- reacting compounds are reported as positive. False positive and false negative results are possible. Confirmatory testing required for definitive results. Current Interpretive Data was last reviewed 2023. Testing performed by: [address] [address] Fentanyl, Ur Not Detected Cutoff 1 ng/mL [facility] Comment: Interpretive Data - Fentanyl: Samples containing greater than 1 ng/mL fentanyl or other cross-reacting fentanyl compounds are reported as positive. False positive and false negative results are possible. Confirmatory testing required for definitive results. Current Interpretive Data was last reviewed 2023. Testing performed by: [address] [address] Methadone, ur Not Detected CutOff 300ng/mL [facility] Comment: Interpretive Data - Methadone: Samples containing greater than 300 ng/mL d,l-methadone or other cross-reacting compounds are reported as positive. False positive and false negative results are possible. Confirmatory testing required for definitive results. Current Interpretive Data was last reviewed 2023. Testing performed by: [address] [address] Opiates, ur Not Detected CutOff 300ng/mL [facility] Comment: Interpretive Data - Opiates: Samples containing greater than 300 ng/mL morphine or other cross-reacting compounds are reported as positive. False positive and false negative results are possible. Confirmatory testing required for definitive results. Current Interpretive Data was last reviewed 2023. Testing performed by: [address] [address] Oxycodone, ur Not Detected CutOff 100ng/mL [facility] Comment: Interpretive Data - Oxycodone: Samples containing greater than 100 ng/mL oxycodone or other cross-reacting compounds are reported as positive. False positive and false negative results are possible. Confirmatory testing required for definitive results. Current Interpretive Data was last reviewed 2023. Testing performed by: [address] [place]., [address] Phencyclidine, ur Not Detected CutOff 25 ng/mL [facility] Comment: Interpretive Data - Phencyclidine: Samples containing greater than 25 ng/mL phencyclidine or other cross-reacting compounds are reported as positive. False positive and false negative results are possible. Confirmatory testing required for definitive results. Current Interpretive Data was last reviewed 2023. Testing performed by: [address] [address] Urine Creatinine 390 mg/dL [facility] Comment: Interpretive Data Urine Creatinine: < 10 mg/dL is extremely dilute = or > 10 but < 20 mg/dL is dilute = or > 20 mg/dL is normal Current Interpretive Data was last revised on 2017. Testing performed by: [address] [address] Urine 12/20/2024 5:19 PM CDT 12/20/2024 5:25 PM CDT Narrative [facility] - 12/20/2024 5:57 PM CDT Drug of Abuse screening is performed by immunoassay for medical purposes only. This is not to be used for Pain Management purposes. us Renetta Echols MD LAB URINE ORDERABLES Fin al Result [facility] [facility] Department [place] [address] * (ABNORMAL) Urinalysis, microscopic only (12/20/2024 5:19 PM CDT) WBC, ur 0-5 0 - 5 /HPF Comment:Testing performed by : [address] [address] RBC, ur 11-20(A) 0 - 2 /HPF [facility] Comment:Testing performed by : [address] [address] Epithelial cells, squamous, ur 6-10(A) 0 - 5 /HPF [facility] Comment:Testing performed by : [address] [address] Mucous, ur Present(A) [facility] Comment:Testing performed by : [address] [address] Sperm, ur Present(A) [facility] Comment:Testing performed by : [address] [address] Culture Reflex Comment Reflex conditions for urine culture (WBC >10) not met. [facility] Comment:Testing performed by : [address] [address] Urine 12/20/2024 5:19 PM CDT 12/20/2024 5:25 PM CDT Renetta Echols MD LAB URINE ORDERABLES Fin al Result Performing Organization Address City/State/[facility] Co de Phone Number [facility] [address] [facility] Department [place] [address] * COVID-19 Coronavirus RNA Nasopharyngeal (12/20/2024 5:06 PM CDT) Pathologist [facility] COVID-19 RNA Negative Negative Comment:Testing performed by : [address] [address] Nasopharyngeal 12/20/2024 5: 06 PM CDT 12/20/2024 5:22 PM CDT Narrative [facility] - 12/20/2024 5:55 PM CDT Is the patient experiencing any symptoms consistent with COVID (eg. Fever, cough, shortness of breath)?->No What is the reason for testing?->Screening prior to Behavioral health admission Interpretive data Testing performed by [facility]. This test is performed using the [employer] Xpert Xpress CoV-2 plus assay. This is [...] Laboratory. This test is performed using the [employer] Xpert Xpress CoV-2 plus assay. This is [...] AL ORDERABLES Final Result Performing Organization Address [facility] Co de Phone Number [facility]LLA [address] [facility] Department [place] [address] * eGFR (12/20/2024 5:06 PM CDT) Pathologist [facility] eGFR >90 >=60 mL/min/1. 73 m2 [...] was last reviewed 2021. Testing performed by: [facility], [address] [place] [address]., [address] Blood 12/20/2024 5:06 PM CDT 12/20/2024 5:25 PM CDT Renetta Echols MD LAB BLOOD ORDERABLES Fin al Result Performing Organization Address City/[facility]/ZIP Co de Phone Number [facility] [address] [facility] Department [place] [address] * Differential, auto (12/20/2024 5:06 PM CDT) Neutrophil abs 3.48 1.50 - 6.50 K/cumm Comment:Testing performed by : [address] [address] Imm gran abs 0.02 0.00 - 0.10 K/cumm [facility] Comment:Testing performed by : [address] [address] Lymphocyte abs 1.90 0.80 - 3.30 K/cumm [facility] Comment:Testing performed by : [address] [address] Monocyte abs 0.60 0.20 - 0.80 K/cumm [facility] Comment:Testing performed by : [address] [address] Eosinophil abs 0.17 0.00 - 0.50 K/cumm [facility] Comment:Testing performed by : [address] [address] Basophil abs 0.03 0.00 - 0.10 K/cumm [facility] Comment:Testing performed by : [address] [address] Neutrophil pct 56.2 % [facility] Comment: Interpretive Data Percent cell count reference ranges are not reported, since discordance with absolute values may lead to misinterpretation of CBC data. Current Interpretive Data was last revised on 2017. Testing performed by: [address] [address] Imm gran pct 0.3 % [facility] Comment: Interpretive Data Percent cell count reference ranges are not reported, since discordance with absolute values may lead to misinterpretation of CBC data. Current Interpretive Data was last revised on 2017. Testing performed by: [address] [address] Lymphocyte pct 30.6 % [facility] Comment: Interpretive Data Percent cell count reference ranges are not reported, since discordance with absolute values may lead to misinterpretation of CBC data. Current Interpretive Data was last revised on 2017. Testing performed by: [address] [address] Monocyte pct 9.7 % [facility] Comment: Interpretive Data Percent cell count reference ranges are not reported, since discordance with absolute values may lead to misinterpretation of CBC data. Current Interpretive Data was last revised on 2017. Testing performed by: [address] [address] Eosinophil pct 2.7 % [facility] Comment: Interpretive Data Percent cell count reference ranges are not reported, since discordance with absolute values may lead to misinterpretation of CBC data. Current Interpretive Data was last revised on 2017. Testing performed by: [address] [address] Basophil pct 0.5 % [facility] Comment: Interpretive Data Percent cell count reference ranges are not reported, since discordance with absolute values may lead to misinterpretation of CBC data. Current Interpretive Data was last revised on 2017. Testing performed by: [address] [address] Blood 12/20/2024 5:06 PM CDT 12/20/2024 5:25 PM CDT Renetta Echols MD LAB BLOOD ORDERABLES Fin al Result Performing Organization Address City/State/[facility] Co de Phone Number [facility] [address] [facility] Department [place] [address] * Thyroid Function [place] (12/20/2024 5:06 PM CDT) TSH 0.32 0.30 - 4.20 mcIUnit/mL Comment:Testing performed by : [address] [address] Blood 12/20/2024 5:06 PM CDT 12/20/2024 5:25 PM CDT Renetta Echols MD LAB BLOOD ORDERABLES Fin al Result [facility] [address] [facility] Department [place] [address] * CBC with auto differential (12/20/2024 5:06 PM CDT) WBC 6.20 3.80 - 9.90 K/cumm Comment:Testing performed by : [address] [address] Hgb 13.0 13.0 - 17.5 g/dL [facility]A Comment:Testing performed by : [address] [address] Hct 39.6 38.9 - 50.3 % [facility]A Comment:Testing performed by : [address] [address] Plt 245 150 - 400 K/cumm PRISCILLA Comment:Testing performed by : [address] [address] MPV 9.7 9.1 - 12.3 fL [facility] Comment:Testing performed by : [address] [address] RBC 4.61 4.30 - 5.80 M/cumm [facility] Comment:Testing performed by : [address] [address] MCV 85.9 81.3 - 96.4 fL [facility] Comment:Testing performed by : [address] [address] MCH 28.2 27.1 - 33.3 pg [facility]A Comment:Testing performed by : [address] [address] MCHC 32.8 32.3 - 35.7 g/dL [facility] Comment:Testing performed by : [address] [address] RDW CV 14.0 11.1 - 14.9 % [facility] Comment:Testing performed by : [address] [address] RDW SD 43.7 35.7 - 48.1 fL [facility] Comment:Testing performed by : [facility], [address] [place] [address]., [address] NRBC abs 0.00 0.00 - 0.01 K/cumm [facility]LLA Comment:Testing performed by : [address] [address] Blood Venous blood specimen / Unknown 12/20/2024 5:06 PM CDT 12/20/2024 5:25 PM CDT Renetta Echols MD LAB BLOOD ORDERABLES Fin al Result Performing Organization Address [facility] Co de Phone Number [address] [place] [address] * Ethanol (12/20/2024 5:06 PM CDT) Ethanol <10 <=10 mg/dL Comment: Interpretive Data Legal limit of intoxication > or = 80 mg/dL Levels > or = 400 mg/dL are potentially TOXIC. Current interpretive data was last revised on 2018. Testing performed by: [facility], [address] [place] [address]., [address] Blood 12/20/2024 5:06 PM CDT 12/20/2024 5:25 PM CDT Renetta Echols MD LAB BLOOD ORDERABLES Fin al Result Performing Organization Address City/[facility] Co de Phone Number [address] [place] [address] * Acetaminophen level (12/20/2024 5:06 PM CDT) [...] after ingestion Consult toxicology or poison control ([phone]) for unknown ingestion time. Current interpretive data was last revised 2023. Testing performed by: [address] [address] Blood 12/20/2024 5:06 PM CDT 12/20/2024 5:25 PM CDT Renetta Echols MD LAB BLOOD ORDERABLES Fin al Result Performing Organization Address [facility] Phone Number [address] [place] [address] * Salicylate level (12/20/2024 5:06 PM CDT) Pathologist [facility] Salicylate <1.0 <=1.0 mg/dL Comment: Interpretive Data Toxic: 30 mg/dL or greater. Current interpretive data was last revised 2023. Testing performed by: [address] [address] Blood 12/20/2024 5:06 PM CDT 12/20/2024 5:25 PM CDT Renetta Echols MD LAB BLOOD ORDERABLES Fin al Result Performing Organization Address [facility] de Phone Number [address] [address] * Comprehensive metabolic panel (12/20/2024 5:06 PM CDT) Pathologist [facility] Sodium 142 135 - 145 mmol/L Comment:Testing performed by : [address] [address] Potassium, pl 4.1 3.3 - 4.9 mmol/L [facility] MAURER Comment:Testing performed by : [address] [address] Chloride 106 97 - 110 mmol/L PRISCILLA MAURER Comment:Testing performed by : [address] [address] CO2 24 22 - 32 mmol/L PRISCILLA MAURER Comment:Testing performed by : [address] [address] Anion gap 12 2 - 15 mmol/L [facility] Comment:Testing performed by : [address] [address] BUN 9 6 - 25 mg/dL [facility] Comment:Testing performed by : [address] [address] Creatinine 1.10 0.80 - 1.30 mg/dL [facility] Comment:Testing performed by : [address] [address] Glucose 116 70 - 199 mg/dL [facility] Comment: Interpretive Data Fasting glucose [...] was last revised 2022. Testing performed by: [address] [address] Calcium 9.0 8.5 - 10.3 mg/dL [facility] Comment:Testing performed by : [address] [address] Bilirubin, total 0.2 0.1 - 1.2 mg/dL [facility] Comment:Testing performed by : [address] [address] Protein, pl 7.1 6.5 - 8.5 g/dL [facility] Comment:Testing performed by : [address] [address] Albumin 4.1 3.5 - 5.0 g/dL [facility] Comment:Testing performed by : [address] [address] Alk phos 64 40 - 130 Units/L [facility] Comment:Testing performed by : [address] [address] ALT 15 7 - 55 Units/L [facility] Comment:Testing performed by : [facility], [address] [place] [address]., [address] AST 20 10 - 50 Units/L [facility] Comment:Testing performed by : [facility], [address] [place] [address]., [address] Blood 12/20/2024 5:06 PM CDT 12/20/2024 5:25 PM CDT us Renetta Echols MD LAB BLOOD ORDERABLES Fin al Result [facility] [address] [facility] Department [place] [address] * CT Abdomen Pelvis W [...] Farida Mahmood M.D. SN T: Report ID: [id number] Reading Location: [id number] Procedure Note Farida Mahmood MD - 11/04/2024 [...] Farida Mahmood M.D. SN T: Report ID: [id number] Reading Location: [place] [address] Neel So MD IM CT PROCEDURES Final [...] tendency for uric acid stone formation. Source: [place] [employer] Current Interpretive Data was last revised on 2017 Protein, ur ql Negative Negative [facility] Glucose, ur ql Negative Negative [facility] Ketones, ur Negative Negative [facility] Bilirubin, ur Negative Negative [facility] Blood, ur Negative Negative [facility] Urobilinogen, ur <2.0 <2.0 mg/dL [facility] Nitrite, ur Negative Negative [facility] Leukocyte esterase, ur Negative Negative [facility] UA reflex comment Reflex conditions for microscopic UA and culture not met. [facility] Urine 11/04/2024 5:27 AM CDT 11/04/2024 5:30 AM CDT Neel So MD LAB MICROBIOLOGY - GENERAL ORDERABLES Final Result [facility] [address] [facility] Department [place] [address] * (ABNORMAL) Drugs of Abuse Screen, Urine without Confirmation (11/04/2024 5:27 AM CDT) Pathologist [facility] Amphetamine, ur Not Detected CutOff 500ng/mL Comment: Interpretive Data - Amphetamines: Samples containing greater than 500 ng/mL d-methamphetamine or other cross-reacting amphetamine compounds are reported as positive. Amphetamine immunoassays are subject to significant false positive rates due to cross-reactivity of non-amphetamine drugs. Confirmatory testing required for definitive results. Current Interpretive Data was last reviewed 2023. Barbiturates, ur Not Detected CutOff 200ng/mL [facility] Comment: Interpretive Data - Barbiturates: Samples containing greater than 200 ng/mL secobarbital or other cross-reacting barbiturate compounds are reported as positive. False positive and false negative results are possible. Confirmatory testing required for definitive results. Current Interpretive Data was last reviewed 2023. Benzodiazepines, ur Not Detected CutOff 100ng/mL [facility] Comment: Interpretive Data - Benzodiazepines: Samples containing greater than 100 ng/mL nordiazepam or other cross-reacting compounds are reported as positive. False positive and false negative results are possible. Confirmatory testing required for definitive results. Current Interpretive Data was last reviewed 2023. Cannabinoids, ur Screen Positive, presumptive (A) CutOff 50 ng/mL [facility] Comment: Interpretive Data - Cannabinoids: Samples containing greater than 50 ng/mL delta-9 THC -COOH or other cross- reacting compounds are reported as positive. False positive and false negative results are possible. Confirmatory testing required for definitive results. Current Interpretive Data was last reviewed 2023. Cocaine, ur Not Detected CutOff 150ng/mL [facility] Comment: Interpretive Data - Cocaine: Samples containing [...] 2023. Methadone, ur Not Detected CutOff 300ng/mL [facility] Comment: Interpretive Data - Methadone: Samples containing greater than 300 ng/mL d,l-methadone or other cross-reacting compounds are reported as positive. False positive and false negative results are possible. Confirmatory testing required for definitive results. Current Interpretive Data was last reviewed 2023. Opiates, ur Not Detected CutOff 300ng/mL [facility] Comment: Interpretive Data - Opiates: Samples containing greater than 300 ng/mL morphine or other cross-reacting compounds are reported as positive. False positive and false negative results are possible. Confirmatory testing required for definitive results. Current Interpretive Data was last reviewed 2023. Oxycodone, ur Not Detected CutOff 100ng/mL [facility] Comment: Interpretive Data - Oxycodone: Samples containing [...] URINE ORDERABLES Final Result Performing Organization Address [facility] de Phone Number LE[address] [place] [address] * Troponin T high-sensitivity 2-hour (11/04/2024 4:17 [...] BLOOD ORDERABLES Final Result Performing Organization Address [facility] Co de Phone Number [address] [place] [address] * ABO / Rh Confirmation Testing (11/04/2024 4:17 AM CDT) ABO/Rh Confirmation NTD Pos [facility] Comment: 11/04/2024 04:48 [id number] Patient demonstrating mixed field reactions in the ABO typing due to unknown cause. ABO typing cannot be interpreted at this time. Blood 11/04/2024 4:17 AM CDT 11/04/2024 4:20 AM CDT Neel So MD LAB BLOOD ORDERABLES Final Result Performing Organization Address [facility] de Phone Number PRISCILLA [address] [address] MH * Troponin T high-sensitivity series (baseline, 2hr, 4hr, 6hr) (11/04/2024 1:26 AM CDT) Pathologist [facility] Trop T hs 7 <=22 ng/L Comment: Interpretive Data For further hscTnT resources including the diagnostic algorithm and an aid in interpretation, copy and paste this link: [email or web address].testcatalog.org/show/[email or web address] Current Interpretive Data last revised 2020. Blood 11/04/2024 1:26 AM CDT 11/04/2024 2:41 AM CDT Neel So MD LAB BLOOD ORDERABLES Final Result Performing Organization Address [facility] de Phone Number PRISCILLA [address] [address] * Influenza A/B, RSV, and COVID-19 PCR Nasopharyngeal (11/04/2024 1:26 AM CDT) [facility] COVID-19 RNA Negative Negative Influenza A RNA Negative Negative [facility] Influenza B RNA Negative Negative [facility] RSV RNA Negative Negative [facility] Comment: Interpretive data: Testing performed by [facility]. This test is performed using the [employer] Xpert Xpress CoV-2/Flu/RSV plus assay. This is a multiplex, real-time reverse transcriptase PCR assay intended for the qualitative detection of nucleic acid from SARS-CoV-2, influenza A, influenza B, and respiratory syncytial virus. This assay has been cleared by the [place] Food and Drug administration. The performance characteristics have been verified by the [facility]. Results must be considered in the clinical context, and a negative result does not rule out infection. Interpretive Data last revised 2023 Nasopharyngeal 11/04/2024 1: 26 AM CDT 11/04/2024 1:30 AM CDT Narrative PRIS[facility]LLA - 11/04/2024 2:20 AM CDT Is the Patient experiencing symptoms consistent with COVID?->Unknown Neel So MD LAB MICROBIOLOGY - GENERAL ORDERABLES Final Result Performing Organization Address [facility] de Phone Number PRISCILLA [address] [address] * (ABNORMAL) Lactate (11/04/2024 1:26 AM CDT) Lactate 0.4(L) 0.7 - 2.0 mmol/L Blood 11/04/2024 1:26 AM CDT 11/04/2024 1:30 AM CDT Neel So MD LAB BLOOD ORDERABLES Final Result Performing Organization Address [facility] Phone Number [address] [address] * eGFR (11/04/2024 1:26 AM CDT) eGFR [...] MD LAB BLOOD ORDERABLES Final Result [facility] [address] [facility] Department [place] [address] * Differential, auto (11/04/2024 1:26 AM CDT) Pathologist [facility] Neutrophil abs 2.07 1.50 - 6.50 K/cumm Imm gran abs 0.00 0.00 - 0.10 K/cumm [facility] Lymphocyte abs 1.51 0.80 - 3.30 K/cumm [facility] Monocyte abs 0.53 0.20 - 0.80 K/cumm [facility] Eosinophil abs 0.14 0.00 - 0.50 K/cumm [facility] Basophil abs 0.01 0.00 - 0.10 K/cumm [facility] Neutrophil pct 48.7 % [facility] Comment: Interpretive Data Percent cell count reference ranges are not reported, since discordance with absolute values may lead to misinterpretation of CBC data. Current Interpretive Data was last revised on 2017. Imm gran pct 0.0 % [facility] Comment: Interpretive Data Percent cell count reference ranges are not reported, since discordance with absolute values may lead to misinterpretation of CBC data. Current Interpretive Data was last revised on 2017. Lymphocyte pct 35.4 % [facility] Comment: Interpretive Data Percent cell count reference ranges are not reported, since discordance with absolute values may lead to misinterpretation of CBC data. Current Interpretive Data was last revised on 2017. Monocyte pct 12.4 % [facility] Comment: Interpretive Data Percent cell count reference ranges are not reported, since discordance with absolute values may lead to misinterpretation of CBC data. Current Interpretive Data was last revised on 2017. Eosinophil pct 3.3 % [facility] Comment: Interpretive Data Percent cell count reference ranges are not reported, since discordance with absolute values may lead to misinterpretation of CBC data. Current Interpretive Data was last revised on 2017. Basophil pct 0.2 % [facility] Comment: Interpretive Data Percent cell count reference ranges are not reported, since discordance with absolute values may lead to misinterpretation of CBC data. Current Interpretive Data was last revised on 2017. Blood 11/04/2024 1:26 AM CDT 11/04/2024 1:30 AM CDT Neel So MD LAB BLOOD ORDERABLES Final Result Performing Organization Address [facility] de Phone Number [address] [place] [address] * Thyroid Function [place] (11/04/2024 1:26 AM CDT) [facility] TSH 0.41 0.30 - 4.20 mcIUnit/mL Blood 11/04/2024 1:26 AM CDT 11/04/2024 1:30 AM CDT Neel So MD LAB BLOOD ORDERABLES Final Result Performing Organization Address [facility] de Phone Number [address] [place] [address] * (ABNORMAL) CBC with auto differential (11/04/2024 1:26 AM CDT) [facility] WBC 4.26 3.80 - 9.90 K/cumm Hgb 13.0 13.0 - 17.5 g/dL [facility] Hct 40.9 38.9 - 50.3 % [facility] Plt 216 150 - 400 K/cumm [facility] MPV 9.6 9.1 - 12.3 fL [facility] RBC 4.69 4.30 - 5.80 M/cumm [facility] MCV 87.2 81.3 - 96.4 fL [facility] MCH 27.7 27.1 - 33.3 pg [facility] MCHC 31.8(L) 32.3 - 35.7 g/dL [facility] RDW CV 13.6 11.1 - 14.9 % [facility] RDW SD 43.1 35.7 - 48.1 fL [facility] NRBC abs 0.00 0.00 - 0.01 K/cumm [facility] Blood 11/04/2024 1:26 AM CDT 11/04/2024 1:30 AM CDT Neel So MD LAB BLOOD ORDERABLES Final Result Performing Organization Address [facility] Co de Phone Number [address] [place] [address] * ABO/Rh (11/04/2024 1:26 AM CDT) ABO/Rh NTD Pos Comment: 11/04/2024 04:45 [id number] Patient demonstrating mixed field reactions in the ABO typing due to unknown cause. ABO typing cannot be interpreted at this time. Blood 11/04/2024 1:26 AM CDT 11/04/2024 1:30 AM CDT Narrative [facility] - 11/04/2024 4:47 AM CDT Has the patient had Daratumumab or Isatuximab in the past 6 months?->Unknown Neel So MD LAB BLOOD BANK TEST ORDERA BLES Final Result Performing Organization Address [facility] de Phone Number [address] [place] [address] * aPTT (11/04/2024 1:26 AM CDT) aPTT 28 22 - 37 sec Comment: Interpretive data aPTT test has not been evaluated for monitoring heparin therapy. The anti-Xa is the preferred test. Current interpretive data was last revised on 2019. Blood 11/04/2024 1:26 AM CDT 11/04/2024 1:30 AM CDT Neel So MD LAB BLOOD ORDERABLES Final Result Performing Organization Address [facility] Co de Phone Number [address] [place] [address] * Protime-INR (11/04/2024 1:26 AM CDT) Pathologist [facility] PT 14.0 12.0 - 14.6 sec INR [...] AM CDT 11/04/2024 1:[address] [facility] Neel So MD LAB BLOOD ORDERABLES Final Result Performing Organization Address [facility] de Phone Number [address] [place] [address] * Antibody screen (11/04/2024 1:26 AM CDT) Pathologist [facility] Tanvi, indirect, Gel Interpretation Negative ABSC Blood 11/04/2024 1:26 AM CDT 11/04/2024 1:30 AM CDT Narrative PRISCILLA - 11/04/2024 4:47 AM CDT Has the patient had Daratumumab or Isatuximab in the past 6 months?->Unknown Result [facility] Neel So MD LAB BLOOD BANK TEST ORDERA BLES Final Result Performing Organization Address City/[facility] Co de Phone Number [address] [place] [address] * Phosphorus (11/04/2024 1:26 AM CDT) Pathologist [facility] Phosphorus, pl 2.9 2.3 - 4.5 mg/dL Blood 11/04/2024 1:26 AM CDT 11/04/2024 1:[address] [facility] Neel So MD LAB BLOOD ORDERABLES Final Result Performing Organization Address [facility] Co de Phone Number LEON[address] [place] [address] * Magnesium (11/04/2024 1:26 AM CDT) Magnesium 1.7 1.4 - 2.5 mg/dL Blood 11/04/2024 1:26 AM CDT 11/04/2024 1:30 AM CDT Neel So MD LAB BLOOD ORDERABLES Final Result Performing Organization Address [facility] de Phone Number LEON[address] [place] [address] * Lipase (11/04/2024 1:26 AM CDT) Lipase 36 10 - 99 Units/L Blood 11/04/2024 1:26 AM CDT 11/04/2024 1:30 AM CDT Neel So MD LAB BLOOD ORDERABLES Final Result Performing Organization Address [facility] Phone Number LEON[address] [place] [address] * Ethanol (11/04/2024 1:26 AM CDT) Ethanol <10 <=10 mg/dL Comment: Interpretive Data Legal limit of intoxication > or = 80 mg/dL Levels > or = 400 mg/dL are potentially TOXIC. Current interpretive data was last revised on 2018. Blood 11/04/2024 1:26 AM CDT 11/04/2024 1:30 AM CDT Neel So MD LAB BLOOD ORDERABLES Final Result Performing Organization Address [facility] Co de Phone Number LEON[address] [place] [address] * (ABNORMAL) Comprehensive metabolic panel (11/04/2024 1:26 AM CDT) Pathologist [facility] Sodium 139 135 - 145 mmol/L Potassium, pl 4.3 3.3 - 4.9 mmol/L [facility] Chloride 106 97 - 110 mmol/L [facility] CO2 24 22 - 32 mmol/L [facility] Anion gap 9 2 - 15 mmol/L [facility] BUN 12 6 - 25 mg/dL [facility] Creatinine 1.10 0.80 - 1.30 mg/dL [facility] Glucose 91 70 - 199 mg/dL [facility] Comment: Interpretive Data Fasting glucose [...] 2022. Calcium 8.1(L) 8.5 - 10.3 mg/dL [facility] Bilirubin, total 0.2 0.1 - 1.2 mg/dL [facility] Protein, pl 6.9 6.5 - 8.5 g/dL [facility] Albumin 4.0 3.5 - 5.0 g/dL [facility] Alk phos 64 40 - 130 Units/L [facility] ALT 20 7 - 55 Units/L [facility] AST 23 10 - 50 Units/L [facility] Blood 11/04/2024 1:26 AM CDT 11/04/2024 1:30 AM CDT us Neel So MD LAB BLOOD ORDERABLES Final Result [facility] [address] [facility] Department [place] [address] * ECG 12 lead (11/04/2024 1:07 AM CDT) [facility] Ventricular Rate EKG/Min 58 BPM [facility] Atrial Rate 58 BPM [facility] CT-Interval (MSEC) 162 ms [facility] QRS-Interval (MSEC) 110 ms [facility] QT-Interval (MSEC) 370 ms [facility] QTc 363 ms [facility] P [place] 17 degrees [facility] R [place] 78 degrees [facility] T [place] 55 degrees [facility] Diagnosis Sinus bradycardia with sinus arrhythmia Possible Left atrial enlargement Left ventricular hypertrophy ST elevation, consider early repolarization , pericarditis, or injury Abnormal ECG When compared with ECG of 07-OCT-2023 01:51, T wave inversion now evident in Anterior leads Confirmed by HARRY LI M.D. ([id number]) on 11/09/2024 1:32:02 PM [facility] 11/04/2024 1:07 AM CDT 11/09/2024 1:32 PM CDT us Neel So MD ECG ORDERABLES Final Resu lt [facility] from Last 3 Months Insurance [facility] Advance Directives For more information, please contact: [phone] * Full Code (Latest Code Status on [...] 6:32 AM 09/09/2023 5:23 PM Care Teams Tong Setter Relationship Specialty Start Date End Date No, Physician PCP - General 11/30/20
--- OUTSIDE RECORDS SUMMARY | 2025-01-12 22:26 | XMS_ITS | Clinical Summary ---
Author Organization [facility] Address [address] [place] [address] Phone Care Team Providers Care Paster Operator Name Role Phone Provider, None Primary Care [...] 01/05/2025 11:26 PM CDT Emergency [facility] Emergency [address] [place] [address] Shaka Salguero MD Chronic pericarditis, [...] Kev Canela M.D. MJ: [id number] Report ID: [id number] Reading Location: [id number] Procedure Note Kev Canela MD - 01/05/2025 [...] Kev Canela M.D. MJ: [email or web address] Report ID: [id number] Reading Location: [place] [address] IMPRESSION: No acute cardiopulmonary abnormality. Shaka Salguero MD IMG DIAGNOSTIC ORDERABLES Final Result * TROPONIN I, HIGH SENSITIVITY (HSTRP) (01/05/2025 9:10 PM CDT) [facility] TROPONIN I, HIGH SENSITIVITY- MCRAE 11 <=35 ng/L 01/05/2025 9:50 PM CDT [facility] Comment: High-sensitivity troponin I results are reported in ng/L making the result appear to be 1,000 times higher than the contemporary troponin I value which is reported in ng/ml. Results from [facility]. Blood Venipuncture / Unknown 01/05/2025 9:10 PM CDT 01/05/2025 9:25 PM CDT Shaka Salguero MD CHEMISTRY ORDERABLES Final Result [facility] [address] [place] [address] * (ABNORMAL) CBC with Auto Differential (01/05/2025 9:10 PM CDT) [facility] WBC 8.19 4.00 - 12.00 10(3)/mcL 01/05/2025 9:28 PM CDT [facility] RBC 4.79 4.40 - 5.80 10(6)/mcL 01/05/2025 9:28 PM CDT [facility] HEMOGLOBIN (HGB) 13.7 13.0 - 16.5 g/dL 01/05/2025 9:28 PM CDT [facility] HEMATOCRIT (HCT) 42.4 38.0 - 50.0 % 01/05/2025 9:28 PM CDT [facility] MCV 88.5 82.0 - 96.0 fL 01/05/2025 9:28 PM CDT [facility] MCH 28.6 26.0 - 32.0 pg 01/05/2025 9:28 PM CDT [facility] MCHC 32.3 31.0 - 36.0 g/dL 01/05/2025 9:28 PM CDT [facility] PLATELET COUNT 259 140 - 440 10(3)/mcL 01/05/2025 9:28 PM CDT [facility] RDW 13.3 11.8 - 15.5 % 01/05/2025 9:28 PM CDT [facility] MPV 9.5 8.0 - 12.6 fL 01/05/2025 9:28 PM CDT [facility] NEUTROPHILS 53.1 40.0 - 68.0 % 01/05/2025 9:28 PM CDT [facility] LYMPHOCYTES 33.0 19.0 - 49.0 % 01/05/2025 9:28 PM CDT [facility] MONOCYTES 11.5 3.0 - 13.0 % 01/05/2025 9:28 PM CDT [facility] EOSINOPHILS 2.0 0.0 - 8.0 % 01/05/2025 9:28 PM CDT [facility] BASOPHILS 0.4 0.0 - 1.0 % 01/05/2025 9:28 PM CDT [facility] ABSOLUTE NEUTROPHILS 4.36 1.40 - 5.30 10(3)/mcL 01/05/2025 9:28 PM CDT [facility] ABSOLUTE LYMPHOCYTES 2.70 0.90 - 3.30 10(3)/mcL 01/05/2025 9:28 PM CDT [facility] ABSOLUTE MONOCYTES 0.94(H) 0.10 - 0.90 10(3)/mcL 01/05/2025 9:28 PM CDT [facility] ABSOLUTE EOSINOPHIL 0.16 0.00 - 0.50 10(3)/mcL 01/05/2025 9:28 PM CDT [facility] ABSOLUTE BASOPHILS 0.03 0.00 - 0.10 10(3)/mcL 01/05/2025 9:28 PM CDT [facility] NRBC PER 100 WBC 0 01/06/20 9:28 PM CDT [facility] Blood Venipuncture / Unknown 01/05/2025 9:10 PM CDT 01/05/2025 9:25 PM CDT us Shaka Salguero MD HEMATOLOGY ORDERABLES Vickie l Result [facility] [address] [place] [address] * (ABNORMAL) CMP (01/05/2025 9:10 PM CDT) SODIUM 140 136 - 145 mmol/L 01/05/2025 9:48 PM CDT [facility] POTASSIUM 4.0 3.5 - 5.1 mmol/L 01/05/2025 9:48 PM CDT [facility] CHLORIDE 107 98 - 107 mmol/L 01/05/2025 9:48 PM CDT [facility] CO2, VENOUS 24 22 - 30 mmol/L 01/05/2025 9:48 PM CDT [facility] ANION GAP 13.0 <18.0 mmol/L 01/05/2025 9:48 PM CDT [facility] GLUCOSE 95 70 - 99 mg/dL 01/05/2025 9:48 PM CDT [facility] BUN 12 9 - 21 mg/dL 01/05/2025 9:48 PM CDT [facility] CREATININE, BLOOD 1.33(H) 0.70 - 1.30 mg/dL 01/05/2025 9:48 PM CDT [facility] BUN/CREATININE RATIO 9(L) 12 - 20 ratio 01/05/2025 9:48 PM CDT [facility] TOTAL PROTEIN 7.9 6.0 - 8.0 g/dL 01/05/2025 9:48 PM CDT [facility] ALBUMIN 4.5 3.5 - 5.0 g/dL 01/05/2025 9:48 PM CDT [facility] A/G RATIO 1.3 1.0 - 2.2 01/05/2025 9:48 PM CDT [facility] CALCIUM 9.1 8.7 - 10.5 mg/dL 01/05/2025 9:48 PM CDT [facility] T BILI 0.2 0.2 - 1.2 mg/dL 01/05/2025 9:48 PM CDT [facility] SGOT (AST) 35 <43 U/L 01/05/2025 9:48 PM CDT [facility] SGPT (ALT) 41 <56 U/L 01/05/2025 9:48 PM CDT [facility] ALKALINE PHOSPHATASE 62 40 - 150 U/L 01/05/2025 9:48 PM CDT [facility] GFR, ESTIMATED >60 >=60 01/05/2025 9:48 PM CDT [facility] Comment: Creatinine Clearance is the preferred criteria for selecting drug dose adjustments in renally impaired patients. The GFR is provided as additional pertinent clinical information. GFR is reported in mL/min/1.73 sq m. Calculation based on the Chronic Kidney Disease Epidemiology Collaboration (CKD- EPI) equation refit without adjustment for race. GFR, EST. >60 >=60 025 9:48 PM CDT [facility] GFR, EST. NONAFRICAN >60 >=60 01/05/2025 9:48 PM CDT [facility] Blood Venipuncture / Unknown 01/05/2025 9:10 PM CDT 01/05/2025 9:25 PM CDT us Shaka Salguero MD CHEMISTRY ORDERABLES Final Result [facility] [address] [place] [address] * EKG 12 LEAD (01/05/2025 8:51 PM CDT) Ventricular Rate 73 BPM EXTERNAL EKG Atrial Rate 73 BPM EXTERNAL EKG P-R Interval 164 ms EXTERNAL EKG QRS Duration 110 ms EXTERNAL EKG Q-T Duration 356 ms EXTERNAL EKG QTC CALCULATION 392 ms EXTERNAL EKG P [place] 42 degrees EXTERNAL EKG R [place] 81 degrees EXTERNAL EKG T [place] 50 degrees EXTERNAL EKG 01/05/2025 8:51 PM CDT Impressions EXTERNAL EKG - 01/08/2025 9:18 AM CDT Normal sinus rhythm ST elevation, consider early repolarization, pericarditis, or injury Abnormal ECG When compared with ECG of 18-AUG-2023 23:06, No significant change was found ~ Confirmed by Jermaine Dimas ([id number]) on 01/08/2025 9:18:19 AM Narrative Procedure Note Jermaine Dimas MD - 01/08/2025 IMPRESSION: Normal sinus rhythm ST elevation, consider early repolarization, pericarditis, or injury Abnormal ECG When compared with ECG of 18-AUG-2023 23:06, No significant change was found ~ Confirmed by Jermaine Dimas ([id number]) on 01/08/2025 9:18:19 AM us Shaka Salguero MD IMG ECG ORDERABLES Final R esult EXTERNAL EKG * EKG SCAN (01/05/2025 12:00 AM CDT) 01/05/2025 us Provider Scan IMG ECG ORDERABLES Final Result RESULTING AGENCY from Last 3 Months Insurance MEDICAID [place] Care Teams Paster Operator Relationship Specialty Start Date End Date Provider, None [place] PCP - General 08/19/23
--- OUTSIDE RECORDS SUMMARY | 2025-01-12 22:26 | XMS_ITS | Clinical Summary ---
Author Organization [facility] Address [address] [address] Care Team Providers Care Senior Net Programmer Name Role Phone None, Physician Primary Care Provider Unavailabl e Source Comments [facility],non-owned Affiliates and Associated Physician Practices is amultiple site organization consisting of ambulatory clinics and hospital sitesin [place], [place], [place] and [place]. This disclosure is being madepursuant to the Care Everywhere program and may not contain all information available regarding this patient. Last updated 18.[facility] Allergies No known active allergies Medications * [...] (06/02/2022): Added automatically from request for surgery [id number] ST elevation myocardial infa rction (STEMI), unspecified [...] housing, medical care, and heating? Hard 08/07/2023 [facility] Occupat ional Health - Occupational Stress [...] slept in a group home (including now)? 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 Gender Identity Not on file Sexual Orientation Not on file Last Filed Vital Signs Vital Sign Reading Time Taken Comments Blood Pressure 141/85 09/17/2024 4:00 AM AUTOMATIC GRINDER OPERATOR Pulse 87 09/17/2024 4:00 AM AUTOMATIC GRINDER OPERATOR Temperature 36.9 C (98.5 F) 09/17/2024 1:48 AM AUTOMATIC GRINDER OPERATOR Respiratory Rate 13 09/17/2024 4:02 AM AUTOMATIC GRINDER OPERATOR Oxygen Saturation 96% 09/17/2024 4:00 AM AUTOMATIC GRINDER OPERATOR Inhaled Oxygen Concentration - - Weight 72.6 kg (160 lb) 09/17/2024 1:45 AM AUTOMATIC GRINDER OPERATOR Height 180.3 cm (5' 11) 09/17/2024 1:45 AM AUTOMATIC GRINDER OPERATOR Body Mass Index 22.32 09/17/2024 1:45 AM AUTOMATIC GRINDER OPERATOR Plan of Treatment Health Maintenance Due [...] 4:30 AM 06/03/2022 4:00 PM Care Teams Senior Net Programmer Relationship Specialty Start Date End Date None, Physician PCP - General 09/17/24
--- OUTSIDE RECORDS SUMMARY | 2025-01-12 22:26 | XMS_ITS | Clinical Summary ---
Author Organization [facility] Address [address] [place] [address] Phone Care Team Providers Care Returns Clerk Name Role Phone Unavailable Primary Care Provider Unavailabl e Allergies No known active allergies Encounters Date Type Department Care Team Description 12/22/2024 Lab Requisition [facility] [address] [place] [phone] Ventura Brian MD 11/05/2024 Lab Requisition [facility] [address] [place] [phone] Ventura Brian MD from Last 3 Months Social History Tobacco Use Types Packs/Day Years Used Date Smoking Tobacco: Never Assessed Sex and Gender Information Value Date Recorded Sex Assigned at Not on file Legal Sex Male 8:18 AM BUSINESS ACCOUNT SPECIALIST Gender Identity Not on file Sexual Orientation Not on file Last Filed Vital Signs Vital Sign Reading Time Taken Comments Blood Pressure 136/87 06/14/2021 8:27 AM BUSINESS ACCOUNT SPECIALIST Pulse - - Temperature 36.9 C (98.4 F) 06/14/2021 8:27 AM BUSINESS ACCOUNT SPECIALIST Respiratory Rate 18 06/14/2021 8:27 AM BUSINESS ACCOUNT SPECIALIST Oxygen Saturation 98% 06/14/2021 8:27 AM BUSINESS ACCOUNT SPECIALIST Inhaled Oxygen Concentration - - Weight 69.9 kg (154 lb) 06/14/2021 8:27 AM BUSINESS ACCOUNT SPECIALIST Height 15.2 cm (6) 06/14/2021 8:27 AM BUSINESS ACCOUNT SPECIALIST Body Mass Index 3007.61 06/14/2021 8:27 AM BUSINESS ACCOUNT SPECIALIST Plan of Treatment Health Maintenance Due [...] 5.5 <=5.6 % 12/22/2024 7:21 AM CDT [facility] EST. AVG GLUCOSE, A1C 111 mg/dL 12/22/2024 7:21 AM CDT [facility] Blood Venipuncture / Unknown 12/22/2024 5:35 AM CDT 12/22/2024 6:18 AM CDT Narrative [facility] - 12/22/2024 7:21 AM CDT HGB A1C INTERPRETATION NORMAL: <5.7% PRE-DIABETES: 5.7 - 6.4% DIABETES: 6.5% OR GREATER us Ventura Brian MD CHEMISTRY ORDERABLES Final Res ult [facility] [id number] [address] [place] [address] * LIPID PANEL (12/22/2024 5:35 AM CDT) Only the most recent of2 resultswithin the time period is included. CHOLESTEROL 132 <200 mg/dL 12/22/2024 7:25 AM CDT [facility] TRIGLYCERIDE 83 <150 mg/dL 12/22/2024 7:25 AM CDT [facility] HDL 45 40 - 59 mg/dL 12/22/2024 7:25 AM CDT [facility] LDL CALCULATED 70 <100 mg/dL 12/22/2024 7:25 AM CDT [facility] NON-HDL CHOLESTEROL 87 <130 mg/dL 12/22/2024 7:25 AM T [facility] Blood Venipuncture / Unknown 12/22/2024 5:35 AM CDT 12/22/2024 6:18 AM CDT Narrative [facility] - 12/22/2024 7:25 AM CDT [...] Brian MD CHEMISTRY ORDERABLES Final Res ult [facility] [id number] [address] [place] [address] * GLUCOSE LEVEL (11/05/2024 6:48 AM CDT) GLUCOSE 91 70 - 115 mg/dL 11/05/2024 9:58 AM CDT [facility] Blood Collection / Unknown 11/05/2024 6:48 AM CDT 11/05/2024 8:45 AM CDT us Ventura Brian MD CHEMISTRY ORDERABLES Final Res ult [facility] [id number] [address] [place] [address] from Last [address] [place] [address] [place] [address] PLAN MEDICAID
[2025-01-12 22:27] VITALS: PULSE 72; RESP 18
[2025-01-12 22:32] VITALS: O2SAT 99
[2025-01-12 22:45] VITALS: O2SAT 99
--- NOTE | 2025-01-12 23:04 | ED_ITS ---
HPI - SOB/Dyspnea General Chief Complaint: Shortness of Breath/Dyspnea Stated Complaint: sob Time Seen by Provider: 01/12/25 22:07 History of Present Illness HPI Narrative: Patient presenting here with shortness of breath, he has history of asthma has been out of his inhalers, was exposed to marijuana smoke earlier today which he thinks triggered his asthma. Related Data Home Medications ?Medication ?Instructions ?Recorded ?Confirmed ?Last Taken ?Type clonazepam 0.5 mg tablet 0.5 mg PO PRN PRN Anxiety 12/15/23 12/15/23 Unknown History cyanocobalamin (vitamin B-12) 10,000 mcg PO DAILY 12/15/23 12/15/23 Unknown History 1,000 mcg tablet doxycycline hyclate 100 mg capsule 100 mg PO DAILY 12/15/23 12/15/23 Unknown History ferrous sulfate 325 mg (65 mg 325 mg PO DAILY 12/15/23 12/15/23 Unknown History iron) tablet (FeroSul) Allergies Allergy/AdvReac Type Severity Reaction Status Date / Time No Known Allergies Allergy Verified 12/18/24 21:56 Review of Systems 2 Review of Systems: All systems reviewed & are unremarkable except as noted in HPI and below PMFSH Past Medical History Medical History Depression Pericarditis Surgical History Surgical History No pertinent past surgical history Social History Social History Substance use type: does not use Exam 2 Narrative: EXAMINATION OF ORGAN SYSTEMS/BODY AREAS: Constitutional: Vital signs per nursing GENERAL:[No acute distress, non-toxic appearing.] HEAD: Normal with no signs of head trauma. EYES: EOMI, conjunctiva normal ENT: Hearing grossly intact LUNGS: Nonlabored breathing. Slightly diminished lung sounds bilaterally HEART: [Regular rate and rhythm] ABD: [Soft], [nontender to palpation] EXT: Normal range of motion SKIN: [No rashes or lesions.] NEURO: [Alert and oriented x 3. No gross focal sensory or strength deficits.] PSYCH: Normal affect Course Vital Signs Vital signs: Vital Signs Temperature 98.0 F 01/12/25 21:47 Pulse Rate 84 01/12/25 21:47 Respiratory Rate 18 01/12/25 21:47 Blood Pressure 133/76 01/12/25 21:47 Pulse Oximetry 98 01/12/25 21:47 Oxygen Delivery Room Air 01/12/25 21:47 Temperature 98.0 F 01/12/25 21:47 Pulse Rate 72 01/12/25 22:27 Respiratory Rate 18 01/12/25 22:27 Blood Pressure 133/76 01/12/25 21:47 Pulse Oximetry 98 01/12/25 21:47 Oxygen Delivery Room Air 01/12/25 21:47 MDM - SOB/Dyspnea MDM Narrative Medical decision making narrative: ED COURSE AND MEDICAL DECISION MAKIN-year-old with acute dyspnea likely due to acute asthma exacerbation based on history and exam. Patient is hemodynamically stable. Nebulizer treatments are started and steroids given orally. EKG obtained on my independent interpretation at 2213 shows sinus rhythm rate 70, KS 167, QRS 114, QTC 392, normal axis, there are diffuse ST elevations consistent with history of pericarditis, compared to prior EKG, no change Patient monitored in the ED for a couple of hours and on reevaluation is feeling significantly better. No respiratory distress or accessory muscle use. Good air movement bilateral lungs. Prescriptions for [albuterol and steroid course] provided. He is given strict return precautions and patient is discharged in stable/improved condition. Lab Data 01/12/25 22:07 01/12/25 22:07 Labs: Lab Results 01/12/25 Range/Units 22:07 WBC 7.5 (4.5-10.0) K/mm3 RBC 4.50 L (4.6-6.20) M/mm3 Hgb 12.5 L (14.0-18.0) g/dL Hct 39.4 L (42.0-52.0) % MCV 87.6 (80-100) fl MCH 27.8 (26-34) pg MCHC 31.7 L (32-36) g/dl RDW 13.9 (11.5-14.5) % Plt Count 226 (150-375) k/mm3 MPV 9.3 (7.4-10.4) fl Immature Gran % (Auto) 0.8 H (0-0.5) % Neut % (Auto) 60.1 (45.5-73.1) % Lymph % (Auto) 22.7 (18.3-44.2) % Winston % (Auto) 13.5 H (2.6-8.5) % Eos % (Auto) 2.5 (0-4.4) % Baso % (Auto) 0.4 (0.2-1.2) % Lymph # (Auto) 1.71 (0.9-3.2) K/mm3 Winston # (Auto) 1.0 H (0.1-0.6) K/mm3 Eos # (Auto) 0.2 (0-0.3) K/mm3 Baso # (Auto) 0.0 (0.0-0.1) K/mm3 Abs Immat Gran (auto) 0.06 H (0.00-0.031) K/mm3 Absolute Neuts (auto) 4.5 (1.3-6.7) K/mm3 Absolute Nucleated RBC 0.000 (0.0-0.012) K/mm3 Nucleated RBC % 0.0 (0.0-0.2) % Sodium 139 (137-145) mmol/L Potassium 3.9 (3.4-5.0) mmol/L Chloride 108 H (98-107) mmol/L Carbon Dioxide 25 (22-30) mmol/L Anion Gap 6 (4-12) mmol/L BUN 12 (9-20) mg/dL Creatinine 1.10 (0.7-1.3) mg/dL Estim Creat Clear Calc 88 ml/min Estimated GFR > 60 (59 - ) Glucose 116 H (65-110) mg/dL Calcium 8.9 (8.4-10.2) mg/dL Total Bilirubin 0.3 (0.2-1.3) mg/dL AST 41 (17-59) U/L ALT 56 H (6-50) U/L Alkaline Phosphatase 55 (38-126) U/L Total Protein 7.1 (6.3-8.2) g/dL Albumin 3.9 (3.5-5.1) g/dL Discharge Plan Discharge Clinical Impression: Asthma exacerbation Patient Disposition: Home Condition: Stable Instructions: Asthma (ED) Additional Instructions: Please follow up with your doctor; you can always return for any further issues. Patient Language: Czech Prescriptions: New prednisone 20 mg tablet 40 mg PO DAILY 4 Days Qty: 8 0RF albuterol sulfate 90 mcg/actuation HFA aerosol inhaler 2 puff inhalation QID PRN (Reason: shortness of breath or wheezing) Qty: 8.5 0RF No Action doxycycline hyclate 100 mg capsule 100 mg PO DAILY clonazepam 0.5 mg tablet 0.5 mg PO PRN PRN (Reason: Anxiety) cyanocobalamin (vitamin B-12) 1,000 mcg tablet 10,000 mcg PO DAILY ferrous sulfate [FeroSul] 325 mg (65 mg iron) tablet 325 mg PO DAILY colchicine 0.6 mg capsule 0.6 mg PO DAILY Qty: 14 0RF colchicine 0.6 mg capsule 0.6 mg PO BID Qty: 30 0RF prednisone 20 mg tablet 40 mg PO DAILY 5 Days Qty: 10 0RF ibuprofen 600 mg tablet 600 mg PO TID PRN (Reason: fever or pain) Qty: 30 0RF Follow-up/Referrals: Polo Bazan MD [Physician] - 2 Days PHYSICIAN,INTERNATIONAL BANK MANAGER [Primary Care Provider] -
[2025-01-13] VITALS: BP 132/77
[2025-01-13 00:15] VITALS: BP 129/71
[2025-01-13 01:02] VITALS: BP 122/60; PULSE 76; RESP 16; TEMP 36.8; O2SAT 98
== END 2025-01-13 01:05 | disposition home or self-care (01) ==
PROVIDERS: Emergency Provider Emergency Medicine
DX: J45.901 Unspecified asthma with (acute) exacerbation (principal); F32.A Depression, unspecified
CPT/HCPCS: 36415; 71045; 80053; 85025; 93005; 94640; 99284; J7512

== ENCOUNTER 2025-01-19 10:40 | Emergency (ER) | payer OTHER, SELFPAY ==
[2025-01-19 10:44] VITALS: BP 131/72; PULSE 96; RESP 18; TEMP 36.4; O2SAT 98
--- NOTE | 2025-01-19 12:04 | PC.NURSE ---
patient asked to provide a urine sample, patient states I know I just can't pee right now patient educated that if they are unable to provide a urine sample we will need to straight cath for urine. patient states that he will attempt to give a sample
[2025-01-19 13:00] LABS: Basophils Percent Auto 0.5 % (0.2-1.2); Eosinophils Absolute Auto 0.2 K/mm3 (0-0.3); Hematocrit 41.4 % (42.0-52.0); Hemoglobin 13.5 g/dL (14.0-18.0); Immature Granulocyte Absolute 0.01 K/mm3 (0.00-0.031); Immature Granulocyte Percent A 0.2 % (0-0.5); Lymphocytes Absolute Auto 1.86 K/mm3 (0.9-3.2); Lymphocytes Percent Auto 31.3 % (18.3-44.2); Mean Corpuscular HGB Conc 32.6 g/dl (32-36); Mean Corpuscular Hemoglobin 28.7 pg (26-34); Mean Corpuscular Volume 88.1 fl (80-100); Mean Platelet Volume 9.6 fl (7.4-10.4); Monocytes Absolute Auto 0.6 K/mm3 (0.1-0.6); Monocytes Percent Auto 10.3 % (2.6-8.5); Neutrophils Absolute Auto 3.3 K/mm3 (1.3-6.7); Neutrophils Percent Auto 54.7 % (45.5-73.1); Platelet Count Result 244 k/mm3 (150-375); Red Cell Distribution Width 13.7 % (11.5-14.5)
[2025-01-19 13:07] LABS: Add Urine Microscopic? YES; Appearance Urine Clear (Clear); Bacteria Urine None Seen /hpf; Bilirubin Urine Negative (Negative); Blood Urine Negative (Negative); Color Urine Dark Yellow (Yellow); Glucose Urine UA Negative (Negative); Ketones Urine Trace mg/dL (Negative); Leukocyte Esterase Ur Negative LEU/UL (Negative); Nitrate Urine Negative (Negative); Non Pathogenic Casts 0-2; Protein Urine Trace mg/dL (Negative); RBC Urine 0-2 /hpf (0-2); Specific Grav Ur 1.028 (1.001-1.035); Squamous Epithelial Cell Urine None Seen /hpf (Few); WBC Urine 0-5 /hpf (0-3); pH Urine 5.5 (5.0-9.0)
[2025-01-19 13:09] LABS: Alanine Aminotransferase 57 U/L (6-50); Albumin Level 4.2 g/dL (3.5-5.1); Alkaline Phosphatase 53 U/L (38-126); Anion Gap 5 mmol/L (4-12); Aspartate Amino Transferase 44 U/L (17-59); Bilirubin,Total 0.3 mg/dL (0.2-1.3); Blood Urea Nitrogen 8 mg/dL (9-20); Calcium 9.3 mg/dL (8.4-10.2); Carbon Dioxide 26 mmol/L (22-30); Chloride 104 mmol/L (98-107); Estimated CRCL calculation 91 ml/min; Estimated Glomerular Filt Rate > 60; Glucose 111 mg/dL (65-110); Lipase 47 U/L (23-300); Potassium 3.7 mmol/L (3.4-5.0); Sodium 135 mmol/L (137-145); Total Protein 7.4 g/dL (6.3-8.2)
--- NOTE | 2025-01-19 13:18 | ED_ITS ---
HPI - Abdominal Pain General Chief Complaint: Abdominal Pain Stated Complaint: abdominal pain Time Seen by Provider: 01/19/25 11:44 History of Present Illness HPI narrative: Patient presenting here with abdominal pain, started about 30 minutes prior to arrival here, he did also have a bowel movement that was normal. Related Data Home Medications ?Medication ?Instructions ?Recorded ?Confirmed ?Last Taken ?Type clonazepam 0.5 mg tablet 0.5 mg PO PRN PRN Anxiety 12/15/23 12/15/23 Unknown History cyanocobalamin (vitamin B-12) 10,000 mcg PO DAILY 12/15/23 12/15/23 Unknown History 1,000 mcg tablet doxycycline hyclate 100 mg capsule 100 mg PO DAILY 12/15/23 12/15/23 Unknown History ferrous sulfate 325 mg (65 mg 325 mg PO DAILY 12/15/23 12/15/23 Unknown History iron) tablet (FeroSul) Allergies Allergy/AdvReac Type Severity Reaction Status Date / Time No Known Allergies Allergy Verified 01/19/25 10:47 Review of Systems 2 Review of Systems: All systems reviewed & are unremarkable except as noted in HPI and below PMFSH Past Medical History Medical History Depression Pericarditis Surgical History Surgical History No pertinent past surgical history Social History Social History Substance use type: does not use Exam 2 Narrative: EXAMINATION OF ORGAN SYSTEMS/BODY AREAS: Constitutional: Vital signs per nursing GENERAL:[No acute distress, non-toxic appearing.] HEAD: Normal with no signs of head trauma. EYES: EOMI, conjunctiva normal ENT: Hearing grossly intact LUNGS: Nonlabored breathing. HEART: [Regular rate and rhythm] ABD: [Soft], reports some tenderness periumbilical EXT: Normal range of motion SKIN: [No rashes or lesions.] NEURO: [Alert and oriented x 3. No gross focal sensory or strength deficits.] PSYCH: Normal affect Course Vital Signs Vital signs: Vital Signs Temperature 97.6 F 01/19/25 10:44 Pulse Rate 96 01/19/25 10:44 Respiratory Rate 18 01/19/25 10:44 Blood Pressure 131/72 01/19/25 10:44 Pulse Oximetry 98 01/19/25 10:44 Temperature 97.6 F 01/19/25 10:44 Pulse Rate 96 01/19/25 10:44 Respiratory Rate 18 01/19/25 10:44 Blood Pressure 131/72 01/19/25 10:44 Pulse Oximetry 98 01/19/25 10:44 MDM - Abdominal Pain MDM Narrative Medical decision making narrative: 54-year-old male presenting with abdominal pain that started about 30 minutes prior to arrival here, he is extremely well appearing, abdomen soft, he reports some slight tenderness to the periumbilical abdomen, we did obtain blood work which is all negative, I did go back to re-evaluate the patient and he is now asleep, resting comfortably in no distress. When I will, P has no new pain, nausea vomiting, he is hungry and asking for food. At this point I did feel he can likely go home in stable condition and patient is agreeable to this plan. Return precautions provided as well as discharge instructions and follow-up to PCP Lab Data 01/19/25 12:50 01/19/25 12:50 Labs: Lab Results 01/19/25 Range/Units 12:50 WBC 6.0 (4.5-10.0) K/mm3 RBC 4.70 (4.6-6.20) M/mm3 Hgb 13.5 L (14.0-18.0) g/dL Hct 41.4 L (42.0-52.0) % MCV 88.1 (80-100) fl MCH 28.7 (26-34) pg MCHC 32.6 (32-36) g/dl RDW 13.7 (11.5-14.5) % Plt Count 244 (150-375) k/mm3 MPV 9.6 (7.4-10.4) fl Immature Gran % (Auto) 0.2 (0-0.5) % Neut % (Auto) 54.7 (45.5-73.1) % Lymph % (Auto) 31.3 (18.3-44.2) % [place] % (Auto) 10.3 H (2.6-8.5) % Eos % (Auto) 3.0 (0-4.4) % Baso % (Auto) 0.5 (0.2-1.2) % Lymph # (Auto) 1.86 (0.9-3.2) K/mm3 [place] # (Auto) 0.6 (0.1-0.6) K/mm3 Eos # (Auto) 0.2 (0-0.3) K/mm3 Baso # (Auto) 0.0 (0.0-0.1) K/mm3 Abs Immat Gran (auto) 0.01 (0.00-0.031) K/mm3 Absolute Neuts (auto) 3.3 (1.3-6.7) K/mm3 Absolute Nucleated RBC 0.000 (0.0-0.012) K/mm3 Nucleated RBC % 0.0 (0.0-0.2) % Sodium 135 L (137-145) mmol/L Potassium 3.7 (3.4-5.0) mmol/L Chloride 104 (98-107) mmol/L Carbon Dioxide 26 (22-30) mmol/L Anion Gap 5 (4-12) mmol/L BUN 8 L (9-20) mg/dL Creatinine 1.06 (0.7-1.3) mg/dL Estim Creat Clear Calc 91 ml/min Estimated GFR > 60 (59 - ) Glucose 111 H (65-110) mg/dL Calcium 9.3 (8.4-10.2) mg/dL Total Bilirubin 0.3 (0.2-1.3) mg/dL AST 44 (17-59) U/L ALT 57 H (6-50) U/L Alkaline Phosphatase 53 (38-126) U/L Total Protein 7.4 (6.3-8.2) g/dL Albumin 4.2 (3.5-5.1) g/dL Lipase 47 (23-300) U/L Urine Color Dark yellow (Yellow) Urine Appearance Clear (Clear) Urine pH 5.5 (5.0-9.0) Ur Specific [place] 1.028 (1.001-1.035) Urine Protein Trace (Negative) mg/dL Urine Glucose (UA) Negative (Negative) mg/dL Urine Ketones Trace H (Negative) mg/dL Ur Blood (Man) Negative (Negative) Urine Nitrate Negative (Negative) Urine Bilirubin Negative (Negative) Urine Urobilinogen 1.0 (<2.0) mg/dL Leukocyte Esterase Rfl Negative (Negative) JOYCE/UL Urine RBC 0-2 (0-2) /hpf Urine WBC 0-5 (0-3) /hpf Ur Squamous Epith Cells None seen (Few) /hpf Urine Bacteria None seen /hpf Urine Casts 0-2 Discharge Plan Discharge Clinical Impression: Abdominal pain Patient Disposition: Home Condition: Stable Instructions: Abdominal Pain (ED) Additional Instructions: Please follow up with your doctor; you can always return for any further issues. If you have a doctor you can call below for follow-up. Patient Language: Croatian Prescriptions: New acetaminophen [Tylenol Extra Strength] 500 mg tablet 1,000 mg PO Q6H PRN (Reason: pain) Qty: 50 0RF alum-mag hydroxide-simeth [Maalox Advanced] 200-200-20 mg/5 mL suspension 10 ml PO QID PRN (Reason: dyspepsia) Qty: 100 0RF Rx Instructions: administer between meals and at bedtime No Action doxycycline hyclate 100 mg capsule 100 mg PO DAILY clonazepam 0.5 mg tablet 0.5 mg PO PRN PRN (Reason: Anxiety) cyanocobalamin (vitamin B-12) 1,000 mcg tablet 10,000 mcg PO DAILY ferrous sulfate [FeroSul] 325 mg (65 mg iron) tablet 325 mg PO DAILY colchicine 0.6 mg capsule 0.6 mg PO DAILY Qty: 14 0RF colchicine 0.6 mg capsule 0.6 mg PO BID Qty: 30 0RF prednisone 20 mg tablet 40 mg PO DAILY 5 Days Qty: 10 0RF ibuprofen 600 mg tablet 600 mg PO TID PRN (Reason: fever or pain) Qty: 30 0RF prednisone 20 mg tablet 40 mg PO DAILY 4 Days Qty: 8 0RF albuterol sulfate 90 mcg/actuation HFA aerosol inhaler 2 puff inhalation QID PRN (Reason: shortness of breath or wheezing) Qty: 8.5 0RF Follow-up/Referrals: UNKNOWN,DOCTOR [Primary Care Provider] - Aditi Hardy DO [Physician] - 2 Days
[2025-01-19] MEDS: ACETAMINOPHEN 325 MG TABLET 650 MG PO (13:43)
== END 2025-01-19 13:50 | disposition home or self-care (01) ==
PROVIDERS: Physician Assistant; Emergency Provider Emergency Medicine
DX: R10.9 Unspecified abdominal pain (principal); F32.A Depression, unspecified
CPT/HCPCS: 36415; 80053; 81001; 83690; 85025; 99283; A9270

== ENCOUNTER 2025-01-27 08:39 | Emergency (ER) | payer OTHER, SELFPAY ==
[2025-01-27 08:54] VITALS: BP 137/86; PULSE 89; RESP 15; TEMP 36.8; O2SAT 96
[2025-01-27 09:19] LABS: Basophils Percent Auto 0.4 % (0.2-1.2); Eosinophils Absolute Auto 0.1 K/mm3 (0-0.3); Eosinophils Percent Auto 3.1 % (0-4.4); Hematocrit 39.2 % (42.0-52.0); Hemoglobin 12.8 g/dL (14.0-18.0); Immature Granulocyte Absolute 0.01 K/mm3 (0.00-0.031); Immature Granulocyte Percent A 0.2 % (0-0.5); Lymphocytes Absolute Auto 1.04 K/mm3 (0.9-3.2); Lymphocytes Percent Auto 23.4 % (18.3-44.2); Mean Corpuscular HGB Conc 32.7 g/dl (32-36); Mean Corpuscular Hemoglobin 28.3 pg (26-34); Mean Corpuscular Volume 86.7 fl (80-100); Mean Platelet Volume 9.3 fl (7.4-10.4); Monocytes Absolute Auto 0.6 K/mm3 (0.1-0.6); Monocytes Percent Auto 14.4 % (2.6-8.5); Neutrophils Absolute Auto 2.6 K/mm3 (1.3-6.7); Neutrophils Percent Auto 58.5 % (45.5-73.1); Platelet Count Result 231 k/mm3 (150-375); Red Blood Count 4.52 M/mm3 (4.6-6.20); Red Cell Distribution Width 14.3 % (11.5-14.5); White Blood Count 4.5 K/mm3 (4.5-10.0)
[2025-01-27 09:24] LABS: Add Urine Microscopic? YES; Appearance Urine Clear (Clear); Bacteria Urine None Seen /hpf; Bilirubin Urine Negative (Negative); Blood Urine Trace (Negative); Color Urine Yellow (Yellow); Glucose Urine UA Negative (Negative); Ketones Urine Trace mg/dL (Negative); Leukocyte Esterase Ur Negative LEU/UL (Negative); Nitrate Urine Negative (Negative); Non Pathogenic Casts 0-2; Protein Urine 1+ mg/dL (Negative); Specific Grav Ur 1.036 (1.001-1.035); Squamous Epithelial Cell Urine None Seen /hpf (Few); WBC Urine 0-5 /hpf (0-3); pH Urine 5.5 (5.0-9.0)
--- NOTE | 2025-01-27 09:26 | ED_ITS ---
HPI - General Adult General Chief complaint: Abdominal Pain Stated complaint: Vomiting, ABD pain Time Seen by Provider: 01/27/25 08:48 History of Present Illness HPI narrative: This is a 34-year-old male presenting with 1 hour of abdominal pain. Patient says that he was up late last night drinking whiskey with his friends. They were in from out town they were taken shots and wrestling. There have a very good time. This morning he has some epigastric discomfort and some nausea. He says the symptoms are not very serious. He denies any fevers chest pain difficulty breathing urinary symptoms or bloody diarrhea. He is interrupting the medical interview to request an I-phone carton catcher to charge his phone and vape. Related Data Home Medications ?Medication ?Instructions ?Recorded ?Confirmed ?Last Taken ?Type clonazepam 0.5 mg tablet 0.5 mg PO PRN PRN Anxiety 12/15/23 12/15/23 Unknown History cyanocobalamin (vitamin B-12) 10,000 mcg PO DAILY 12/15/23 12/15/23 Unknown History 1,000 mcg tablet doxycycline hyclate 100 mg capsule 100 mg PO DAILY 12/15/23 12/15/23 Unknown History ferrous sulfate 325 mg (65 mg 325 mg PO DAILY 12/15/23 12/15/23 Unknown History iron) tablet (FeroSul) Allergies Allergy/AdvReac Type Severity Reaction Status Date / Time No Known Allergies Allergy Verified 01/19/25 10:47 [facility] Past Medical History Medical History Depression Pericarditis Surgical History Surgical History No pertinent past surgical history Social History Social History Substance use type: does not use Exam 2 Narrative: APPEARANCE: No apparent distress. Well-appearing Head: atraumatic. EYES: EOMI, NOSE: Atraumatic NECK: Trachea midline RESPIRATORY: No increased rate of breathing clear to auscultation CARDIOVASCULAR: RRR, ABDOMINAL: Soft nontender no guarding rebound MUSCULOSKELETAl: No obvious deformities NEURO: Alert. Moving 4/4 extremities SKIN:: Warm, dry. Normal color PSYCHIATRIC: Normal affect Course Vital Signs Vital signs: Vital Signs Temperature 98.3 F 01/27/25 08:54 Pulse Rate 89 01/27/25 08:54 Respiratory Rate 15 01/27/25 08:54 Blood Pressure 137/86 01/27/25 08:54 Pulse Oximetry 96 01/27/25 08:54 Oxygen Delivery Room Air 01/27/25 08:54 Temperature 98.3 F 01/27/25 08:54 Pulse Rate 89 01/27/25 08:54 Respiratory Rate 15 01/27/25 08:54 Blood Pressure 137/86 01/27/25 08:54 Pulse Oximetry 96 01/27/25 08:54 Oxygen Delivery Room Air 01/27/25 08:54 Medical Decision Making MDM Narrative Medical decision making narrative: -Course: 34-year-old male presenting with abdominal discomfort nausea after a long night of drinking with his friends. Patient is well-appearing on exam. Abdominal exam is benign. Patient is more concerned about charging his iPhone and his vape with any is about his abdominal pain. In his own words he says this is not very serious. Patient was given Maalox and Zofran for symptoms. He was discharged. Given return precautions. -DDX includes but is not limited to: Hangover, alcohol gastritis, peptic ulcer disease, gallbladder disease appendicitis colitis Vital Signs Vital Signs: Vital Signs Temperature 98.3 F 01/27/25 08:54 Pulse Rate 89 01/27/25 08:54 Respiratory Rate 15 01/27/25 08:54 Blood Pressure 137/86 01/27/25 08:54 Pulse Oximetry 96 01/27/25 08:54 Oxygen Delivery Room Air 01/27/25 08:54 Temperature 98.3 F 01/27/25 08:54 Pulse Rate 89 01/27/25 08:54 Respiratory Rate 15 01/27/25 08:54 Blood Pressure 137/86 01/27/25 08:54 Pulse Oximetry 96 01/27/25 08:54 Oxygen Delivery Room Air 01/27/25 08:54 Lab Data 01/27/25 09:12 01/27/25 09:12 Labs: Lab Results 01/27/25 Range/Units 09:12 WBC Pending RBC Pending Hgb Pending Hct Pending MCV Pending MCH Pending MCHC Pending RDW Pending Plt Count Pending MPV Pending Immature Gran % (Auto) Pending Neut % (Auto) Pending Lymph % (Auto) Pending [place] % (Auto) Pending Eos % (Auto) Pending Baso % (Auto) Pending Lymph # (Auto) Pending [place] # (Auto) Pending Eos # (Auto) Pending Baso # (Auto) Pending Abs Immat Gran (auto) Pending Absolute Neuts (auto) Pending Absolute Nucleated RBC Pending Nucleated RBC % Pending Sodium Pending Potassium Pending Chloride Pending Carbon Dioxide Pending Anion Gap Pending BUN Pending Creatinine Pending Estim Creat Clear Calc Pending Estimated GFR Pending Glucose Pending Calcium Pending Total Bilirubin Pending AST Pending ALT Pending Alkaline Phosphatase Pending Total Protein Pending Albumin Pending Lipase Pending Urine Color Yellow (Yellow) Urine Appearance Clear (Clear) Urine pH 5.5 (5.0-9.0) Ur Specific [place] 1.036 H (1.001-1.035) Urine Protein 1+ H (Negative) mg/dL Urine Glucose (UA) Negative (Negative) mg/dL Urine Ketones Trace H (Negative) mg/dL Ur Blood (Man) Trace (Negative) Urine Nitrate Negative (Negative) Urine Bilirubin Negative (Negative) Urine Urobilinogen 1.0 (<2.0) mg/dL Leukocyte Esterase Rfl Negative (Negative) JOYCE/UL Urine RBC 3-5 H (0-2) /hpf Urine WBC 0-5 (0-3) /hpf Ur Squamous Epith Cells None seen (Few) /hpf Urine Bacteria None seen /hpf Urine Casts 0-2 Discharge Plan Discharge Clinical Impression: Alcohol use, Nausea & vomiting Patient Disposition: Home Condition: Stable Instructions: Antibiotic Form, Acute Nausea and Vomiting (DC) Additional Instructions: He was seen emergency department for nausea and abdominal discomfort. This is likely result of your alcohol use. Please eat a bland diet today. Please refrain from heavy alcohol use. If you develop any new or worsening symptoms return to the ED for re-evaluation. Patient Language: Arabic Prescriptions: No Action doxycycline hyclate 100 mg capsule 100 mg PO DAILY clonazepam 0.5 mg tablet 0.5 mg PO PRN PRN (Reason: Anxiety) cyanocobalamin (vitamin B-12) 1,000 mcg tablet 10,000 mcg PO DAILY ferrous sulfate [FeroSul] 325 mg (65 mg iron) tablet 325 mg PO DAILY colchicine 0.6 mg capsule 0.6 mg PO DAILY Qty: 14 0RF acetaminophen [Tylenol Extra Strength] 500 mg tablet 1,000 mg PO Q6H PRN (Reason: pain) Qty: 50 0RF alum-mag hydroxide-simeth [Maalox Advanced] 200-200-20 mg/5 mL suspension 10 ml PO QID PRN (Reason: dyspepsia) Qty: 100 0RF Rx Instructions: administer between meals and at bedtime colchicine 0.6 mg capsule 0.6 mg PO BID Qty: 30 0RF prednisone 20 mg tablet 40 mg PO DAILY 5 Days Qty: 10 0RF ibuprofen 600 mg tablet 600 mg PO TID PRN (Reason: fever or pain) Qty: 30 0RF prednisone 20 mg tablet 40 mg PO DAILY 4 Days Qty: 8 0RF albuterol sulfate 90 mcg/actuation HFA aerosol inhaler 2 puff inhalation QID PRN (Reason: shortness of breath or wheezing) Qty: 8.5 0RF Follow-up/Referrals: UNKNOWN,DOCTOR [Non-Staff] -
[2025-01-27 09:48] LABS: Alanine Aminotransferase 58 U/L (6-50); Albumin Level 4.2 g/dL (3.5-5.1); Alkaline Phosphatase 63 U/L (38-126); Anion Gap 8 mmol/L (4-12); Aspartate Amino Transferase 57 U/L (17-59); Bilirubin,Total 0.2 mg/dL (0.2-1.3); Blood Urea Nitrogen 12 mg/dL (9-20); Calcium 9.2 mg/dL (8.4-10.2); Carbon Dioxide 25 mmol/L (22-30); Chloride 108 mmol/L (98-107); Estimated CRCL calculation 88 ml/min; Estimated Glomerular Filt Rate > 60; Glucose 114 mg/dL (65-110); Lipase 101 U/L (23-300); Sodium 141 mmol/L (137-145); Total Protein 7.4 g/dL (6.3-8.2)
[2025-01-27] MEDS: ONDANSETRON INJ 4 MG/2 ML VIAL IV PUSH (09:51)
[2025-01-27 09:58] VITALS: BP 152/86; PULSE 80; RESP 15; O2SAT 97
== END 2025-01-27 10:00 | disposition home or self-care (01) ==
PROVIDERS: Emergency Provider Emergency Medicine
DX: R11.2 Nausea with vomiting, unspecified (principal); F10.90 Alcohol use, unspecified, uncomplicated; F32.A Depression, unspecified
CPT/HCPCS: 36415; 80053; 81001; 83690; 85025; 96374; 99284; J2405

== ENCOUNTER 2025-02-09 21:42 | Emergency (ER) | payer OTHER, SELFPAY ==
--- NOTE | ~2025-02-09 | XR_ITS ---
XR chest 2V Ordering provider: Will Rivera MD History: 34 years Male with . CHEST PAIN, HX PERICARDITIS . Comparison: January 12, 2025 FINDINGS: MEDIASTINUM: The cardiac silhouette is not enlarged. LUNGS: No infiltrates, effusions or pneumothorax. OTHER: No free air under the diaphragm. IMPRESSION: No acute cardiopulmonary pathology. Reviewed, dictated and finalized at location A.
--- NOTE | 2025-02-09 21:43 | ECG_ITS ---
Test Date: 2025-02-09 21:49:14 Measurements Intervals [place] Rate: 82 P: 41 [place]: 164 QRS: 75 QRSD: 109 T: 17 QT: 337 QTc: 396 Interpretive Statements SINUS RHYTHM ST ELEVATION, CONSIDER ANTERIOR INJURY Electronically Signed On 02-10-2025 08:13:31 CDT by Tanner Sawin D.O
--- OUTSIDE RECORDS SUMMARY | 2025-02-09 21:44 | XMS_ITS | Clinical Summary ---
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 38 tablet 5 02/20/20 25 Active acetaminophen (TYLENOL) 500 mg tablet Take 2 tablets (1,000 mg total) by mouth every 6 (six) hours as needed for pain 30 tablet 5 Active ondansetron (ZOFRAN) 4 mg tablet Take 1 tablet (4 mg total) by mouth every 6 (six) hours as needed for nausea or vomiting 12 tablet 5 Active famotidine (PEPCID) 20 mg tablet Take 1 tablet (20 mg total) by mouth 2 (two) times a day 30 tablet 5 02/07/20 26 Active ondansetron (ZOFRAN) 4 mg tablet Take 1 tablet (4 mg total) by mouth every 6 (six) hours 12 tablet 5 02/05/20 25 Discontinu ed(Duplica te order) acetaminophen 500 mg capsuleIndicati ons:Fever,Pain Take 2 capsules (1,000 mg total) by mouth every 6 (six) hours as needed for pain 5 02/05/20 25 Discontinu ed(Duplica te order) ibuprofen (ADVIL,MOTRIN) 600 mg tablet Take 1 tablet (600 mg total) by mouth 3 (three) times a day for 7 days 0 5 01/31/20 25 Discontinu ed(Stop Taking at Discharge) ibuprofen (ADVIL,MOTRIN) 600 mg tablet Take 1 tablet (600 mg total) by mouth every 6 (six) hours as needed for pain 30 tablet 5 02/05/20 25 Discontinu ed(Error) Active Problems Problem Noted Date Diagnosed Date Recurrent idiopathic pericarditis 01/28/2025 Assessment & Plan (01/29/2025 10:10 AM CDT): - Hx of recurrent pericarditis, cause unclear. Presenting with chest pain. Negative troponin. EKG by ED read with diffuse ST elevation and KY depression. - has been taking colchicine but not responding, mentioned taking Ibuprofen before and was not working, he either takes colchicine or Ibuprofen but never took it together. Received ketorolac in ED. - resume colchicine and add Ibuprofen, if patient still symptomatic consider switching Ibuprofen to prednisone. Trial dose of solumedrol this morning - ECHO to evaluate for pericardial effusion-- showed normal left ventricular systolic function, EF 58%, normal diastolic function, no regional wall motion abnormalities, normal right ventricular systolic function, normal pericardium without pericardial effusion. - planning for cardiology referral at discharge Assessment & Plan (01/28/2025 2:27 AM CDT): - Hx of recurrent pericarditis. - cause unclear. - presenting with chest pain. - negative troponin. - EKG by ED read with diffuse ST elevation and KY depression. - has been taking colchicine but not responding, mentioned taking Ibuprofen before and was not working, he either takes colchicine or Ibuprofen but never took it together. - received ketorolac in ED. - resume colchicine and add Ibuprofen, if patient still symptomatic consider switching Ibuprofen to prednisone vs consulting cardiology. - ECHO to evaluate for pericardial effusion. Mood disorder 01/28/2025 Assessment & Plan (01/29/2025 10:10 AM CDT): - hx of depression and anxiety with multiple psychiatry admissions. - he mentioned that he takes one medication for depression but he can not remember the name. Recent discharge 01/06 from [facility] with no medications listed. Encouraged patient to follow up outpatient for further management Assessment & Plan (01/28/2025 2:26 AM CDT): - hx of depression and anxiety with multiple psychiatry admissions. - he mentioned that he takes one medication for depression but he can nor remember the name. - need med rec with pharmacy in AM. Tobacco use disorder 01/07/2025 Assessment & Plan (01/07/2025 11:29 PM CDT): PCV20 is recommended. Unspecified depressive disorder 01/06/2025 Assessment & Plan (01/07/2025 10:51 AM CDT): Plan per psychiatry Chest pain 12/30/2024 History of iron deficiency 09/30/2024 Assessment & Plan (09/30/2024 9:09 AM TILE ERECTOR): Will try to obtain iron studies I asked SW to help w/ PCP followup Epigastric pain 09/30/2024 Assessment & Plan (09/30/2024 9:17 AM TILE ERECTOR): When asked where his pericarditis pain is, he points to the epigastrium. When I saw him in 11/2023, I had requested an H pylori stool antigen, which we were not able to obtain. -Try again to obtain H pylori antigen (especially w/ history of anemia) Depression 09/29/2024 Assessment & Plan (09/29/2024 1:17 PM TILE ERECTOR): As per psychiatry Will addon a TSH Pericarditis 09/29/2024 Assessment & Plan (09/30/2024 9:10 AM TILE ERECTOR): Currently asymptomatic. Will obtain EKG. Will restart colchicine if symptoms recurs EKG w/ diffuse ST elevation in II, III, aVF, and V1-6, with no KY depression This might also be early repolarization See my notes from 11/16/23 and 11/17/23 for my thought process then He has a bench scientist (Dr Rivera, in [place]) with whom he can follow up Routine general medical exam ination at a health care facility 09/29/2024 Assessment & Plan (09/29/2024 1:17 PM TILE ERECTOR): HIV, RPR negative Will recheck here Addon B12, TSH GERD (gastroesophageal reflux disease) Assessment & Plan (09/29/2024 1:18 PM TILE ERECTOR): Hold off PPI for now as he notes no symptoms of acid reflux. Low threshold to restart. The chest pain (when present) he notes is epigastric so that may be a component of GERD Renal lesion 09/29/2024 Assessment & Plan (09/30/2024 9:09 AM TILE ERECTOR): 11/02/23 CT: There are 3 low-attenuation lesions [...] 08/14/23, 11/02/23 w/ diffuse ST elevation, w/ [place] depression) and a negative ischemic workup (including [...] 11/16/2023 Assessment & Plan (09/30/2024 9:11 AM TILE ERECTOR): B12 300, same as 11/2023. Will replete [...] 11/16/2023 Assessment & Plan (09/30/2024 9:11 AM TILE ERECTOR): Late latent, appropriately treated. See my 11/15/24 note Assessment & Plan (11/16/2023 1:25 PM CDT): As per my colleague Dr Bynum (see 09/07/23 medicine c/s note): - Has history of Syphilis, treated in 2013 , -Treponema ab + and RPR 1:4 on 08/29/23 when tested at [facility] ED Contacted [facility] ( [place] ) for info To see if titers are coming down , left message with Nurse ( [phone]): Called back received, Patient diagnosed with late latent syphilis at [facility] in [place] on 10-11 : +RPR titer 1 :256, treponema -EIA positive Completed treatment with benzathine penicillin G x 3 doses given on November 21 2013, November 28 2013 and December 052013 So appropriately treated Lumbar strain, initial encounter 09/16/2023 Anemia 09/08/2023 Assessment & Plan (09/08/2023 8:05 PM TILE ERECTOR): -possible hx of GI bleed in June, [...] disease) Assessment & Plan (09/08/2023 5:10 AM TILE ERECTOR): -continue pepcid Adjustment disorders, with mixed anxiety and dep ressed mood 09/07/2023 Assessment & Plan (09/08/2023 4:53 AM TILE ERECTOR): Per Psychiatry Cannabis use disorder, moderate, dependence 01/2024 Assessment & Plan (09/08/2023 4:53 AM TILE ERECTOR): Per Psychiatry History of syphilis 09/07/2023 Assessment & Plan (09/08/2023 12:28 PM TILE ERECTOR): - Has history of Syphilis, treated in 2013 , -Treponema ab + and RPR 1:4 on 08/29/23 [facility] Contacted [facility] ( [place] ) for info To see if titers are coming down , left message with Nurse ( [phone]): Called back received, Patient diagnosed with late latent syphilis at [facility] in [place] on 10-11 : +RPR titer 1 :256, treponema -EIA positive Completed treatment with benzathine penicillin G x 3 doses given on November 21 2013, November 28 2013 and December 052013 -2-24 HIV 1/2 Abs +p24 Ag Non reactive [...] or chronic exposure to high-dose stimulants. Dr. Mccatry's (psychiatry) assessment from 01/07/25 had a high [...] recs Assessment & Plan (07/27/2023 10:01 AM TILE ERECTOR): Wes has been struggling for the last 4 years with unstable realtionships, unstable housing, difficulty finding and maintaining employment, and in and out of prison/long-term/probation. He says that he is sad about [...] Med recs apprec; h/o pericarditis Swer to [facility] with follow-up and dispo Assessment & Plan (07/26/2023 9:44 AM TILE ERECTOR): Wes has been struggling for the last 4 years with unstable realtionships, unstable housing, difficulty finding and maintaining employment, and in and out of prison/long-term/probation. He says that he is sad about [...] Med recs apprec; h/o pericarditis Swer to [facility] with follow-up and dispo Assessment & Plan (07/25/2023 12:24 PM TILE ERECTOR): Wes has been struggling for the last 4 years with unstable realtionships, unstable housing, difficulty finding and maintaining employment, and in and out of prison/long-term/probation. He says that he is sad about [...] Med recs apprec; h/o pericarditis Swer to [facility] with follow-up and dispo Assessment & Plan [...] was started on Abilify and Depakote in [place], and reports that his visual and auditory hallucinations have resolved. - Start Sertraline 50mg, consider titrating - Obtain further information about the hallucinations - Haldol 5 p.o. or Haldol 5/Ativan 2 IM PRN for agitation - Suicide/elopement/safety precautions - Therapeutic milieu - q15 min safety checks Asthma 05/22/2023 Assessment & Plan (09/29/2024 1:14 PM TILE ERECTOR): Mild. Prn albuterol Assessment & Plan (09/08/2023 5:12 AM TILE ERECTOR): - no PFTs available , currently not in exacerbation, - PRN albuteral Assessment & Plan (07/25/2023 10:37 AM TILE ERECTOR): Intermittent. No symptoms. Uses albuterol prn at [...] (11/04/2024): Added automatically from request for surgery [id number] Resolved Problems Problem Noted Date Diagnosed Date Resolved Date history of Pericarditis 09/07/202310/31 Assessment & Plan (09/08/2023 8:04 PM TILE ERECTOR): - patient has not been able to afford colchicine and reports benefit when getting doses in ED visits - continue colchicine 0.6 mg po BID and monitor for side effects, it should be held if nausea, vomiting, diarrhea -Hold NSAIDS as -he as not tolerated with significant Gi side effects -Patient was seen by Cardiology as outpatient on 09/02/2023 at [facility] ([facility]) and [...] psychiatry Assessment & Plan (07/25/2023 10:36 AM TILE ERECTOR): Pt w/ hx of depression and anxiety presents w/ SI after grandmother passing. Didn't have intent or plan. Denies SI now -mgt per primary Encounters Date Type Department Care Team Description 02/08/2025 1:07 AM CDT - 02/08/2025 1:27 AM CDT Emergency [facility] Emergency Department [address] [place] [address] Fela Posadas MD Right hand pain (Primary Dx) Discharge Disposition: Discharge to home or self care 02/06/2025 2:43 AM CDT - 02/06/2025 5:28 AM CDT Emergency [facility] Emergency Department [address] [place] [address] Larissa Medellin MD Abdominal pain (Primary Dx) Discharge Disposition: Discharge to home or self care 02/04/2025 2:18 AM CDT - 02/04/2025 4:39 AM CDT Emergency [facility] Emergency Department [address] [place] [phone] Richi Aguilar MD Abdominal pain (Primary Dx) Discharge Disposition: Discharge to home or self care 02/02/2025 3:08 AM CDT - 02/02/2025 5:29 AM CDT Emergency [facility] Emergency Department [address] [place] [phone] Abdominal pain (Primary Dx) Discharge Disposition: Discharge to home or self care 01/30/2025 12:42 AM CDT - 01/30/2025 2:03 PM CDT Hospital Encounter [address] [address] Renetta Echols MD Ogbuagu, MD Elvira Gao Sohaib, MD Smith, Yordan Akbar MD Epigastric pain (Primary Dx); Microscopic hematuria Discharge Disposition: Discharge to home or self care 01/28/2025 12:13 AM CDT - 01/29/2025 11:52 AM CDT Hospital [address] [address] Rupert Kaplan MD Zhao, Diana Yi, MD PhD Arsenio, Larry Angulo MD Recurrent idiopathic pericarditis (Primary Dx); Chest pain, unspecified type Discharge Disposition: Discharge to home or self care 01/18/2025 1:07 AM CDT - 01/18/2025 4:16 AM CDT Emergency [facility] Emergency Department [address] [place] [id number] Luana Beckett MD Abdominal pain (Primary Dx) Discharge Disposition: Discharge to home or self care 01/13/2025 10:24 AM CDT - 01/13/2025 2:45 PM CDT Emergency [facility] [address] [place] [address] Chest pain, unspecified type (Primary Dx) Discharge Disposition: Discharge to home or self care 01/06/2025 2:01 PM CDT - 01/09/2025 3:55 PM CDT Hospital Encounter [facility] [address] [place] [phone] Filipe Claros MD L'Ecuyer, Suzanne, MD de Leon, Victoria Carmen, MD Unspecified depressive disorder [F32.A] (Primary Dx); Chronic pericarditis [I31.9]; Cannabis use disorder, moderate, dependence (HCC) [F12.20] Discharge Disposition: Discharge to home or self care 01/06/2025 12:57 PM CDT - 01/06/2025 11:59 PM CDT Hospital Encounter [facility] Emergency, Room R Discharge Disposition: Discharge to home or self care 01/06/2025 12:47 AM CDT - 01/06/2025 12:58 PM CDT Emergency [facility] Emergency Department [address] [place] [address] Jose Sullivan MD Zozula, Jaskaran Macdonald MD Suicidal ideation (Primary Dx) Discharge Disposition: Discharge to psych hospital or psych unit 01/04/2025 [facility] Post Discharge Follow up phone call [facility] [address] [place] [address] Anastasiia Montano 01/01/2025 10:08 PM CDT - 01/02/2025 2:26 AM CDT Emergency [facility] Emergency Department [address] [place] [address] Irina Yeager MD Suicidal ideation (Primary Dx) Discharge Disposition: Discharge to home or self care 12/29/2024 10:58 PM CDT - 12/30/2024 4:10 PM CDT Hospital Encounter [facility] [address] [place] [address] Jose Sullivan MD Fasick, Victoria Rose, DO Richards, Navarro Handy Jr., MD Chest pain, unspecified type (Primary Dx); Other chest pain; Chronic pericarditis; Acute idiopathic pericarditis Discharge Disposition: Discharge to home or self care 12/20/2024 5:19 PM CDT - 12/21/2024 12:03 PM CDT [facility] Emergency Department [address] [place] [phone] Renetta Echols MD Suicidal ideation (Primary Dx) [...] = 0.6 oz pur e alcohol) [facility] [employer] Answer Date Recorded In the past 12 months has e [employer], gas, oil, or water [employer] threatened to shut off services in your home? No 01/30/2025 Humiliation, Afraid, Rape, and Kick questionnair e [...] neighbors? More than three times a week 01/30/2025 How often do you get togethe r with friends or relatives? More than three times a week 01/30/2025 How often do you attend chur ch or pentecostal services? Never 01/30/2025 Do you belong to any clubs o r organizations such as uatsdin groups, unions, fraternal or athletic groups, or school groups? No 01/30/2025 How often do you attend meet ings of the clubs or organizations you belong to? Never 01/30/2025 Are you , , di vorced, , never , or living with a partner? 01/30/2025 AUDIT-C Answer Date Recorded Q1: How often [...] housing, medical care, and heating? Somewhat hard 01/30/2025 PHQ-2 Answer Date Recorded PHQ-2 Total Score (If total score is 3 or more points, staff should administer the PHQ-9) 2 09/07/2023 [facility] - Occupational Stress Questionnaire Answer Date [...] have money to get more. Never true 08/2024 PRAPARE - Transportation Answer Date Re corded In the past 12 months, has l ack of transportation kept you from medical appointments or from getting medications? No 08/2024 In the past 12 months, has l ack of transportation kept you from meetings, work, or from getting things needed for daily living? No 01/30/2025 Housing Stability Vital Sign Answer Pavel e [...] place to sleep or slept in a mcc (including now)? Yes 10/02/2023 Housing Stability Vital Sign Answer Pavel e Recorded In the last 12 months, was t here a time when you were not able to pay the mortgage or rent on time? No 01/30/2025 In the past 12 months, how m any times have you moved where you were living? 1 01/30/2025 At any time in the past 12 m [facility], were you homeless or living in a mcc (including now)? No 01/30/2025 Personal Safety Answer Date Recorded Have you ever been in or are you currently in a harmful physical or emotional relationship or is someone making you feel afraid or unsafe? Denies 02/07/2025 Education Answer Date Recorded What is the highest level of school you have completed or the highest degree you have received? GED or equivalent 01/2024 Sex and Gender Information Value Date Recorded Sex Assigned at Not on file Legal Sex Male 5:49 PM TILE ERECTOR Gender Identity Not on file Sexual Orientation Not on file Obstetrics History Last Filed Vital Signs Vital Sign Reading Time Taken Comments Blood Pressure 117/73 02/07/2025 11:05 PM CDT Pulse 86 02/07/2025 11:05 PM CDT Temperature 36.6 C (97.9 F) 02/07/2025 11:05 PM CDT Respiratory Rate 16 02/07/2025 11:05 PM CDT Oxygen Saturation 96% 02/07/2025 11:05 PM CDT Inhaled Oxygen Concentration - - Weight 81.6 kg (180 lb) 02/07/2025 11:05 PM CDT Height 180.3 cm (5' 11) 02/07/2025 11:05 PM CDT Body Mass Index 25.1 02/07/2025 11:05 PM CDT Plan of Treatment Health Maintenance Due Date Last Done Comments Hepatitis C Screening 1991 DTaP/Tdap/Td Vaccine (5 - Tdap) 2002 04/04/1996, 08/20/1992, 06/20/1992, Additional history exists Varicella Vaccines (1 of 2 - 13+ 2-dose series) 2004 Regular Well Visit/Exam 18-64 2009 Depression Screening 09/06/2024 09/06/2023, 09/06/2023, 05/21/2023, Additional history exists Influenza Vaccine (#1) 2025 Hepatitis B Screening Completed 09/21/2000, 996 Pneumococcal vaccine <65 Completed 01/07/2025 HPV Vaccines Aged Out No longer eligi ble based on patient's age to complete this topic Procedures Procedure Name Priority Date/Time Associated Diagnosis Comments XR HAND RIGHT 3 OR MORE VIEWS ED 02/07/2025 11:[address] ABDOMEN PELVIS W CONTRAST ED 02/06/2025 4:32 AM CDT EGFR STAT 02/06/2025 2:55 AM CDT LIPASE STAT 02/06/2025 2:55 AM CDT DIFFERENTIAL AUTO STAT 02/06/2025 2:5 5 AM CDT COMPREHENSIVE METABOLIC PANEL STAT 02/06/2025 2:55 AM CDT CBC WITH AUTO DIFFERENTIAL STAT 02/06/2025 2:55 AM CDT URINALYSIS, MICROSCOPIC ONLY STAT 02/02/2025 4:11 AM CDT URINALYSIS AND REFLEX TO MICROSCOPIC AND CULTURE STAT 02/02/2025 4:11 AM CDT EGFR STAT 02/02/2025 3:50 AM CDT DIFFERENTIAL AUTO STAT 02/02/2025 3:5 0 AM CDT LIPASE STAT 02/02/2025 3:50 AM CDT COMPREHENSIVE METABOLIC PANEL STAT 02/02/2025 3:50 AM CDT CBC WITH AUTO DIFFERENTIAL STAT 02/02/2025 3:50 AM CDT EGFR Routine 01/30/2025 6:43 AM CDT DIFFERENTIAL AUTO Routine 01/30/2025 6:4 3 AM CDT CBC WITH AUTO DIFFERENTIAL Routine 01/30/2025 6:43 AM CDT COMPREHENSIVE METABOLIC PANEL Routine 01/30/2025 6:43 AM CDT EGFR STAT 01/30/2025 3:31 AM CDT RENAL FUNCTION PANEL STAT 01/30/2025 3:31 AM CDT TROPONIN T HIGH-SENSITIVITY STAT 01/30/2025 3:31 AM CDT ECG 12-LEAD STAT 01/30/2025 2:25 AM CDT EGFR STAT 01/29/2025 10:36 PM CDT URINALYSIS, MICROSCOPIC ONLY STAT 01/29/2025 10:36 PM CDT DIFFERENTIAL AUTO STAT 01/29/2025 10: 36 PM CDT LIPASE STAT 01/29/2025 10:36 PM CDT COMPREHENSIVE METABOLIC PANEL STAT 01/29/2025 10:36 PM CDT CBC WITH AUTO DIFFERENTIAL STAT 01/29/2025 10:36 PM CDT URINALYSIS AND REFLEX TO MICROSCOPIC AND CULTURE STAT 01/29/2025 10:36 PM CDT TRANSTHORACIC ECHO (TTE) COMPLETE W DOPPLER/CF WO CONTRAST Routine 01/29/2025 7:59 AM CDT TROPONIN I HIGH-SENSITIVITY 2-HOUR Timed 01/28/2025 2:33 AM CDT XR CHEST PA LATERAL 2 VIEWS ED 01/28/2025 1:30 AM CDT EGFR STAT 01/28/2025 12:33 AM CDT DIFFERENTIAL AUTO STAT 01/28/2025 12: 33 AM CDT CRP (ACUTE PHASE) STAT 01/28/2025 12: 33 AM CDT CBC WITH AUTO DIFFERENTIAL STAT 01/28/2025 12:33 AM CDT TROPONIN I HIGH-SENSITIVITY SERIES (BASELINE, 2HR, 4HR, 6HR) STAT 01/28/2025 12:33 AM CDT COMPREHENSIVE METABOLIC PANEL STAT 01/28/2025 12:33 AM CDT ECG 12-LEAD STAT 01/28/2025 12:14 AM CDT EGFR STAT 01/18/2025 1:39 AM CDT DIFFERENTIAL AUTO STAT 01/18/2025 1:3 9 AM CDT BASIC METABOLIC PANEL STAT 01/18/2025 1:39 AM CDT CBC WITH AUTO DIFFERENTIAL STAT 01/18/2025 1:39 AM CDT ERYTHROCYTE SEDIMENTATION RATE STAT 01/13/2025 10:45 AM CDT CRP (ACUTE PHASE) STAT 01/13/2025 10: 45 AM CDT TROPONIN T HIGH-SENSITIVITY 2-HOUR Timed 01/13/2025 10:45 AM CDT XR CHEST 1 VIEW ED 01/13/2025 10:45 AM CDT INFLUENZA A/B, RSV, AND COVID-19 PCR STAT 01/13/2025 10:45 AM CDT ECG 12-LEAD STAT 01/13/2025 9:08 AM CDT EGFR STAT 01/13/2025 8:59 AM CDT DIFFERENTIAL AUTO STAT 01/13/2025 8:5 9 AM CDT TROPONIN T HIGH-SENSITIVITY SERIES (BASELINE, 2HR, 4HR, 6HR) STAT 01/13/2025 8:59 AM CDT COMPREHENSIVE METABOLIC PANEL STAT 01/13/2025 8:59 AM CDT CBC WITH AUTO DIFFERENTIAL STAT 01/13/2025 8:59 AM CDT URINALYSIS, MICROSCOPIC ONLY STAT 01/06/2025 12:40 AM [...] CORONAVIRUS RNA STAT 12/20/2024 5:06 PM CDT from Last 3 Months Results * XR Hand Right 3 or More Views (02/07/2025 11:45 PM CDT) Anatomical Region Laterality Modality Upper Extremities, Hand Right Computed Radiography 02/08/2025 12:0 6 AM CDT Impressions 02/08/2025 8:08 AM CDT FINDINGS/IMPRESSION: No acute fracture or dislocation. Alignment within normal limits. Joint spaces are preserved. Dictated by: Ramses Lei MD The radiology attending physician has personally reviewed this study, and had reviewed and/or edited this written report and agrees with it. Electronically signed by: Kev Brody M.D. Narrative 02/08/2025 8:08 AM CDT EXAMINATION: XR HAND RIGHT 3 OR MORE VIEWS HISTORY: Pain, Upper Extremity Injury or Trauma COMPARISON: X-ray from 09/06/2024 Procedure Note Kev Brody MD - 02/08/2025 EXAMINATION: XR HAND RIGHT 3 OR MORE VIEWS HISTORY: Pain, Upper Extremity Injury or Trauma COMPARISON: X-ray from 09/06/2024 IMPRESSION: FINDINGS/IMPRESSION: No acute fracture or dislocation. Alignment within normal limits. Joint spaces are preserved. Dictated by: Ramses Lei MD The radiology attending physician has personally reviewed this study, and had reviewed and/or edited this written report and agrees with it. Electronically signed by: Kev Brody M.D. Fela Posadas MD IMG XR PROCEDURES Fin al Result * CT Abdomen Pelvis W Contrast (02/06/2025 4:32 AM CDT) Anatomical Region Laterality Modality Body N/A Computed Tomogra phy 02/06/2025 5:00 AM CDT Narrative 02/06/2025 5:04 AM CDT EXAM DESCRIPTION: CT ABDOMEN PELVIS W CONTRAST REASON FOR STUDY: pain Patient complains of abdominal pain for 1 hour, patient is unwilling to give me further details or answer questions. TECHNIQUE: CT scan of the abdomen and [...] of the abdomen and pelvis of November 04, 2024. FINDINGS: LOWER CHEST: There is bibasilar atelectasis. LIVER: The liver is normal in attenuation without focal lesion. GALLBLADDER: No stones identified. Normal wall. No evidence of pericholecystic fluid. BILE DUCTS: No intrahepatic or extrahepatic ductal dilatation. PANCREAS: Normal. SPLEEN: No focal lesions. Spleen is normal in size. ADRENALS: Normal. KIDNEYS/URINARY TRACT: The left kidney parenchyma appears normal. There small stable cysts in the right kidney, unchanged from previous. No visualized renal or ureteral stones. There is no hydronephrosis or hydroureter. Urinary bladder is unremarkable. VASCULATURE: No acute abnormality seen. No abdominal [...] lymph nodes seen by CT size criteria. RETROPERITONEUM: No retroperitoneal abnormalities. REPRODUCTIVE: No significant abnormality. MUSCULOSKELETAL: No significant abnormality. OTHER: No other abnormality. IMPRESSION: No acute findings in the abdomen or pelvis. THIS IS AN ELECTRONICALLY VERIFIED FINAL REPORT 02/06/2025 5:04 AM - Electronically signed by Farida Mahmood M.D. SN: Report ID: [id number] Reading Location: [id number] Procedure Note Farida Mahmood MD - 02/06/2025 EXAM DESCRIPTION: CT ABDOMEN PELVIS W CONTRAST REASON FOR STUDY: pain Patient complains of abdominal pain for 1 hour, patient is unwilling togive me further details or answer questions. TECHNIQUE: CT scan of the abdomen and [...] of the abdomen and pelvis of November 04, 2024. FINDINGS: LOWER CHEST: There is bibasilar atelectasis. LIVER: The liver is normal in attenuation without focal lesion. GALLBLADDER: No stones identified. Normal wall. No evidence of pericholecystic fluid. BILE DUCTS: No intrahepatic or extrahepatic ductal dilatation. PANCREAS: Normal. SPLEEN: No focal lesions. Spleen is normal in size. ADRENALS: Normal. KIDNEYS/URINARY TRACT: The left kidney parenchyma appears normal. There small stable cysts in the right kidney, unchanged from previous. No visualized renal or ureteral stones. There is no hydronephrosis or hydroureter. Urinary bladder is unremarkable. VASCULATURE: No acute abnormality seen. No abdominal aortic aneurysm. GI: The stomach appears normal. There is no significant small bowel dilation or visible thickening. No gross colonic abnormalitiesidentified. The appendix is not visualized, however, there are no pericecalinflammatory changes seen to suggest appendicitis. PERITONEUM/MESENTERY: No ascites or free air. LYMPH NODES: There are no enlarged lymph nodes seen by CT size criteria. RETROPERITONEUM: No retroperitoneal abnormalities. REPRODUCTIVE: No significant abnormality. MUSCULOSKELETAL: No significant abnormality. OTHER: No other abnormality. IMPRESSION: No acute findings in the abdomen or pelvis. THIS IS AN ELECTRONICALLY VERIFIED FINAL REPORT 02/06/2025 5:04 AM - Electronically signed by Farida Mahmood M.D. SN: SN Report ID: [id number] Reading Location: [id number] Larissa Medellin MD IMG CT PROCEDURES Final R esult * eGFR (02/06/2025 2:55 AM CDT) Pathologist [facility] eGFR >90 >=60 mL/min/1. 73 m2 [...] interpretive data was last reviewed 2021. Blood 02/06/2025 2:55 AM CDT 02/06/2025 3:00 AM CDT Larissa Medellin MD LAB BLOOD ORDERABLES Vickie l Result PRISCILLA ARREOLA (ODESSA) 1 [facility] Department [place] [address] * Differential, auto (02/06/2025 2:55 AM CDT) Neutrophil abs 2.96 1.50 - 6.50 K/cumm Imm gran abs 0.03 0.00 - 0.10 K/cumm [facility] ([place]) Lymphocyte abs 2.10 0.80 - 3.30 K/cumm [facility] ([place]) Monocyte abs 0.76 0.20 - 0.80 K/cumm [facility] ([place]) Eosinophil abs 0.12 0.00 - 0.50 K/cumm [facility] ([place]) Basophil abs 0.02 0.00 - 0.10 K/cumm [facility] ([place]) Neutrophil pct 49.4 % [facility] ([place]) Comment: Interpretive [...] was last revised on 2017. Lymphocyte pct 35.1 % [facility] ([place]) Comment: Interpretive Data Percent cell count reference ranges are not reported, since discordance with absolute values may lead to misinterpretation of CBC data. Current Interpretive Data was last revised on 2017. Monocyte pct 12.7 % [facility] ([place]) Comment: Interpretive Data Percent cell count reference ranges are not reported, since discordance with absolute values may lead to misinterpretation of CBC data. Current Interpretive Data was last revised on 2017. Eosinophil pct 2.0 % [facility] ([place]) Comment: Interpretive [...] Data was last revised on 2017. Blood 02/06/2025 2:55 AM CDT 02/06/2025 3:00 AM CDT Larissa Medellin MD LAB BLOOD ORDERABLES Vickie l Result [facility] ([place]) 1 [facility] [place] [address] * (ABNORMAL) CBC with auto differential (02/06/2025 2:55 AM CDT) WBC 5.99 3.80 - 9.90 K/cumm Hgb 12.5(L) 13.0 - 17.5 g/dL [facility] ([place]) Hct 38.1(L) 38.9 - 50.3 % [facility] ([place]) Plt 273 150 - 400 K/cumm [facility] ([place]) MPV 9.4 9.1 - 12.3 fL [facility] ([place]) RBC 4.39 4.30 - 5.80 M/cumm [facility] ([place]) MCV 86.8 81.3 - 96.4 fL [facility] ([place]) MCH 28.5 27.1 - 33.3 pg [facility] ([place]) MCHC 32.8 32.3 - 35.7 g/dL [facility] ([place]) RDW CV 14.0 11.1 - 14.9 % [facility] ([place]) RDW SD 43.9 35.7 - 48.1 fL [facility] ([place]) NRBC abs 0.00 0.00 - 0.01 K/cumm [facility] ([place]) Blood 02/06/2025 2:55 AM CDT 02/06/2025 3:00 AM CDT us Larissa Medellin MD LAB BLOOD ORDERABLES Vickie l Result [facility] ([place]) 1 [facility] [place] [place] [address] * Lipase (02/06/2025 2:55 AM CDT) Lipase 21 10 - 99 Units/L Blood 02/06/2025 2:55 AM CDT 02/06/2025 3:26 AM CDT us Larissa Medellin MD LAB BLOOD ORDERABLES Vickie arreola Result PRISCILLA [facility] ([place]) 1 [facility] Department [place] [address] * Comprehensive metabolic panel (02/06/2025 2:55 AM CDT) Sodium 140 135 - 145 mmol/L Potassium, pl 3.8 3.3 - 4.9 mmol/L [facility] ([place]) Chloride 106 97 - 110 mmol/L [facility] ([place]) CO2 22 22 - 32 mmol/L [facility] ([place]) Anion gap 12 2 - 15 mmol/L [facility] ([place]) BUN 9 6 - 25 mg/dL [facility] ([place]) Creatinine 1.09 0.80 - 1.30 mg/dL [facility] ([place]) Glucose 97 70 - 199 mg/dL [facility] ([place]) [...] 10.3 mg/dL [facility] ([place]) Bilirubin, total 0.3 0.1 - 1.2 mg/dL [facility] ([place]) Protein, pl 6.8 6.5 - 8.5 g/dL [facility] ([place]) Albumin 4.0 3.5 - 5.0 g/dL [facility] ([place]) Alk phos 66 40 - 130 Units/L [facility] ([place]) ALT 24 7 - 55 Units/L [facility] ([place]) AST 23 10 - 50 Units/L [facility] ([place]) Blood 02/06/2025 2:55 AM CDT 02/06/2025 3:00 AM CDT Larissa Medellin MD LAB BLOOD ORDERABLES Vickie l Result PRISCILLA ARREOLA (ODESSA) 1 [facility] Department [place] [address] * (ABNORMAL) Urinalysis reflex to microscopic and culture Urine (02/02/2025 4:11 AM CDT) Color, ur Yellow Yellow Clarity, ur Clear Clear [facility] Specific gravity, ur 1.032(H) 1.003 - 1.030 [facility] pH, urine 6.0 [facility] Comment: Interpretive Data U rine pH is affected by diet, medications, systemic acid-base disturbances, and renal tubular function. pH may affect urinary stone formation. For example, urine pH below 6.0 may help reduce the tendency for calcium phosphate stones and pH greater than 6.0 may reduce the tendency for uric acid stone formation. Source: [facility] Current Interpretive Data was last revised on 2017 Protein, ur ql Trace Negative [facility] Glucose, ur ql Negative Negative [facility] Ketones, ur Negative Negative [facility] Bilirubin, ur Negative Negative [facility] Blood, ur Trace(A) Negative [facility] Urobilinogen, ur <2.0 <2.0 mg/dL [facility] Nitrite, ur Negative Negative [facility] Leukocyte esterase, ur Negative Negative [facility] UA reflex comment Reflex to microscopic UA will be performed. [facility] Urine 02/02/2025 4:11 AM CDT 02/02/2025 4:18 AM CDT Payal MTZ LAB MICROBIOLOGY - GENER AL ORDERABLES Final Result PRISCILLA [facility] One [facility] Department [place] [address] * (ABNORMAL) Urinalysis, microscopic only (02/02/2025 4:11 AM CDT) WBC, ur 0-5 0 - 5 /HPF RBC, ur 3-5(A) 0 - 2 /HPF [facility] Mucous, ur Present(A) [facility] Hyaline casts, ur 1-5 0 - 10 /LPF [facility] Culture Reflex Comment Reflex conditions for urine culture (WBC >10) not met. [facility] Urine 02/02/2025 4:11 AM CDT 02/02/2025 4:18 AM CDT Payal MTZ LAB URINE ORDERABLES Fin al Result Performing Organization Address City/[facility]/ZIP Co de Phone Number [facility] One [facility] Department [place] [address] * eGFR (02/02/2025 3:50 AM CDT) eGFR 84 >=60 mL/min/1. 73 m2 Comment: Interpretive Data [...] interpretive data was last reviewed 2021. Blood 02/02/2025 3:50 AM CDT 02/02/2025 4:08 AM CDT Payal MTZ LAB BLOOD ORDERABLES Fin al Result PRISCILLA [facility] One [facility] Department [place] [address] * Differential, auto (02/02/2025 3:50 AM CDT) Neutrophil abs 2.81 1.50 - 6.50 K/cumm Imm gran abs 0.01 0.00 - 0.10 K/cumm [facility] Lymphocyte abs 2.08 0.80 - 3.30 K/cumm [facility] Monocyte abs 0.71 0.20 - 0.80 K/cumm [facility] Eosinophil abs 0.16 0.00 - 0.50 K/cumm [facility] Basophil abs 0.03 0.00 - 0.10 K/cumm [facility] Neutrophil pct 48.4 % [facility] Comment: Interpretive Data Percent cell count reference ranges are not reported, since discordance with absolute values may lead to misinterpretation of CBC data. Current Interpretive Data was last revised on 2017. Imm gran pct 0.2 % [facility] Comment: Interpretive Data Percent cell count reference ranges are not reported, since discordance with absolute values may lead to misinterpretation of CBC data. Current Interpretive Data was last revised on 2017. Lymphocyte pct 35.9 % [facility] Comment: Interpretive Data Percent cell count reference ranges are not reported, since discordance with absolute values may lead to misinterpretation of CBC data. Current Interpretive Data was last revised on 2017. Monocyte pct 12.2 % [facility] Comment: Interpretive Data Percent cell count reference ranges are not reported, since discordance with absolute values may lead to misinterpretation of CBC data. Current Interpretive Data was last revised on 2017. Eosinophil pct 2.8 % [facility] Comment: Interpretive Data Percent cell count reference ranges are not reported, since discordance with absolute values may lead to misinterpretation of CBC data. Current Interpretive Data was last revised on 2017. Basophil pct 0.5 % [facility] Comment: Interpretive Data Percent cell count reference ranges are not reported, since discordance with absolute values may lead to misinterpretation of CBC data. Current Interpretive Data was last revised on 2017. Blood 02/02/2025 3:50 AM CDT 02/02/2025 4:09 AM CDT Payal MTZ LAB BLOOD ORDERABLES Fin al Result Performing Organization Address City/[facility]/ZIP Co de Phone Number [facility] [place] [address] * CBC with auto differential (02/02/2025 3:50 AM CDT) WBC 5.80 3.80 - 9.90 K/cumm Hgb 13.2 13.0 - 17.5 g/dL [facility] Hct 40.4 38.9 - 50.3 % [facility] Plt 252 150 - 400 K/cumm [facility] MPV 9.9 9.1 - 12.3 fL [facility] RBC 4.70 4.30 - 5.80 M/cumm [facility] MCV 86.0 81.3 - 96.4 fL [facility] MCH 28.1 27.1 - 33.3 pg [facility] MCHC 32.7 32.3 - 35.7 g/dL [facility] RDW CV 13.7 11.1 - 14.9 % [facility] RDW SD 42.8 35.7 - 48.1 fL [facility] NRBC abs 0.00 0.00 - 0.01 K/cumm [facility] Blood 02/02/2025 3:50 AM CDT 02/02/2025 4:09 AM CDT Payal MTZ LAB BLOOD ORDERABLES Fin al Result Performing Organization Address City/[facility]/ZIP Co de Phone Number [facility] Department [place] [address] * Lipase (02/02/2025 3:50 AM CDT) Lipase 32 10 - 99 Units/L Blood 02/02/2025 3:50 AM CDT 02/02/2025 4:08 AM CDT Payal MTZ LAB BLOOD ORDERABLES Fin al Result [facility] One [facility] Department [place] [address] * Comprehensive metabolic panel (02/02/2025 3:50 AM CDT) Sodium 140 135 - 145 mmol/L Potassium, pl 4.0 3.3 - 4.9 mmol/L [facility] Chloride 105 97 - 110 mmol/L [facility] CO2 26 22 - 32 mmol/L [facility] Anion gap 9 2 - 15 mmol/L [facility] BUN 14 6 - 25 mg/dL [facility] Creatinine 1.18 0.80 - 1.30 mg/dL [facility] Glucose 106 70 - 199 mg/dL [facility] Comment: Interpretive Data Fasting glucose >/= [...] interpretive data was last revised 2022. Calcium 9.0 8.5 - 10.3 mg/dL [facility] Bilirubin, total <0.2 0.1 - 1.2 mg/dL [facility] Comment:Reviewed Protein, pl 7.2 6.5 - 8.5 g/dL [facility] Albumin 4.2 3.5 - 5.0 g/dL [facility] Alk phos 67 40 - 130 Units/L [facility] ALT 26 7 - 55 Units/L [facility] AST 22 10 - 50 Units/L [facility] Blood 02/02/2025 3:50 AM CDT 02/02/2025 4:08 AM CDT Payal MTZ LAB BLOOD ORDERABLES Fin al Result PRISCILLA BOUCHER One [facility] Department [place] [address] * eGFR (01/30/2025 6:43 AM CDT) eGFR >90 >=60 mL/min/1. 73 [...] interpretive data was last reviewed 2021. Blood 01/30/2025 6:43 AM CDT 01/30/2025 7:01 AM CDT Bry Miranda MD LAB BLOOD ORDERABLES Final Result [facility] [address] [facility] Department [place] [address] * (ABNORMAL) Differential, auto (01/30/2025 6:43 AM CDT) Neutrophil abs 5.11 1.50 - 6.50 K/cumm Imm gran abs 0.02 0.00 - 0.10 K/cumm [facility] Lymphocyte abs 1.85 0.80 - 3.30 K/cumm [facility] Monocyte abs 0.96(H) 0.20 - 0.80 K/cumm [facility] Eosinophil abs 0.04 0.00 - 0.50 K/cumm [facility] Basophil abs 0.01 0.00 - 0.10 K/cumm [facility] Neutrophil pct 63.9 % [facility] Comment: Interpretive Data Percent cell count reference ranges are not reported, since discordance with absolute values may lead to misinterpretation of CBC data. Current Interpretive Data was last revised on 2017. Imm gran pct 0.3 % [facility] Comment: Interpretive Data Percent cell count reference ranges are not reported, since discordance with absolute values may lead to misinterpretation of CBC data. Current Interpretive Data was last revised on 2017. Lymphocyte pct 23.2 % [facility] Comment: Interpretive Data Percent cell count reference ranges are not reported, since discordance with absolute values may lead to misinterpretation of CBC data. Current Interpretive Data was last revised on 2017. Monocyte pct 12.0 % [facility] Comment: Interpretive Data Percent cell count reference ranges are not reported, since discordance with absolute values may lead to misinterpretation of CBC data. Current Interpretive Data was last revised on 2017. Eosinophil pct 0.5 % [facility] Comment: Interpretive Data Percent cell count reference ranges are not reported, since discordance with absolute values may lead to misinterpretation of CBC data. Current Interpretive Data was last revised on 2017. Basophil pct 0.1 % [facility] Comment: Interpretive Data Percent cell count reference ranges are not reported, since discordance with absolute values may lead to misinterpretation of CBC data. Current Interpretive Data was last revised on 2017. Blood 01/30/2025 6:43 AM CDT 01/30/2025 7:01 AM CDT Bry Miranda MD LAB BLOOD ORDERABLES Final Result PRISCILLA [address] [facility] Department [place] [address] * (ABNORMAL) CBC with auto differential (01/30/2025 6:43 AM CDT) [facility] WBC 7.99 3.80 - 9.90 K/cumm Hgb 12.7(L) 13.0 - 17.5 g/dL [facility] Hct 38.7(L) 38.9 - 50.3 % [facility] Plt 211 150 - 400 K/cumm [facility] MPV 9.5 9.1 - 12.3 fL [facility] RBC 4.57 4.30 - 5.80 M/cumm [facility] MCV 84.7 81.3 - 96.4 fL [facility] MCH 27.8 27.1 - 33.3 pg [facility] MCHC 32.8 32.3 - 35.7 g/dL [facility] RDW CV 14.0 11.1 - 14.9 % [facility] RDW SD 42.9 35.7 - 48.1 fL [facility] NRBC abs 0.00 0.00 - 0.01 K/cumm [facility] Blood 01/30/2025 6:43 AM CDT 01/30/2025 7:01 AM CDT Bry Miranda MD LAB BLOOD ORDERABLES Final Result [facility] [address] [facility] Department [place] [address] * Comprehensive metabolic panel (01/30/2025 6:43 AM CDT) [facility] Sodium 140 135 - 145 mmol/L Potassium, pl 4.0 3.3 - 4.9 mmol/L [facility] Chloride 105 97 - 110 mmol/L [facility] CO2 23 22 - 32 mmol/L [facility] Anion gap 12 2 - 15 mmol/L [facility] BUN 13 6 - 25 mg/dL [facility] Creatinine 1.10 0.80 - 1.30 mg/dL [facility] Glucose 109 70 - 199 mg/dL [facility] Comment: Interpretive Data Fasting glucose >/= 126 [...] interpretive data was last revised 2022. Calcium 9.4 8.5 - 10.3 mg/dL [facility] Bilirubin, total 0.5 0.1 - 1.2 mg/dL [facility] Protein, pl 7.0 6.5 - 8.5 g/dL [facility] Albumin 4.1 3.5 - 5.0 g/dL [facility] Alk phos 58 40 - 130 Units/L [facility] ALT 25 7 - 55 Units/L [facility] AST 21 10 - 50 Units/L [facility] Blood 01/30/2025 6:43 AM CDT 01/30/2025 7:01 AM CDT Bry Miranda MD LAB BLOOD ORDERABLES Final Result Performing Organization Address [facility] Co de Phone Number [address] [place] [address] * Troponin T high-sensitivity (01/30/2025 3:31 AM CDT) Trop T hs 10 <=22 ng/L Comment: Interpretive Data For further hscTnT resources including the diagnostic algorithm and an aid in interpretation, copy and paste this link: https://nrl.testcatalog.org/show/hsTrop Current Interpretive Data last revised 2020. Blood 01/30/2025 3:31 AM CDT 01/30/2025 3:35 AM CDT Renetta Echols MD LAB BLOOD ORDERABLES Fin al Result Performing Organization Address [facility]/ZIP Co de Phone Number [address] [place] [address] * eGFR (01/30/2025 3:31 AM CDT) eGFR >90 >=60 mL/min/1. 73 [...] interpretive data was last reviewed 2021. Blood 01/30/2025 3:31 AM CDT 01/30/2025 3:35 AM CDT us Renetta Echols MD LAB BLOOD ORDERABLES Fin al Result [facility] [address] [facility] Department [place] [address] * Renal function panel (01/30/2025 3:31 AM CDT) Pathologist [facility] Sodium 138 135 - 145 mmol/L Potassium, pl 3.8 3.3 - 4.9 mmol/L [facility] Comment:Hemolyzed; Potassium value may be falsely elevated by as much as 1.0 mmol/L. Suggest redraw and reanalysis. Chloride 103 97 - 110 mmol/L [facility] CO2 24 22 - 32 mmol/L [facility] Anion gap 11 2 - 15 mmol/L [facility] BUN 13 6 - 25 mg/dL [facility] Creatinine 1.00 0.80 - 1.30 mg/dL [facility] Glucose 111 70 - 199 mg/dL [facility] Comment: Interpretive Data Fasting glucose >/= 126 [...] interpretive data was last revised 2022. Calcium 9.6 8.5 - 10.3 mg/dL [facility] Phosphorus, pl 3.8 2.3 - 4.5 mg/dL [facility] Albumin 4.7 3.5 - 5.0 g/dL [facility] Blood 01/30/2025 3:31 AM CDT 01/30/2025 3:35 AM CDT Renetta Echols MD LAB BLOOD ORDERABLES Fin al Result [facility] [address] [facility] Department [place] [address] * ECG 12 lead (01/30/2025 2:25 AM CDT) Pathologist [facility] Ventricular Rate EKG/Min 76 BPM [facility] Atrial Rate 76 BPM [facility] [place]-Interval (MSEC) 174 ms [facility] QRS-Interval (MSEC) 114 ms [facility] QT-Interval (MSEC) 378 ms [facility] QTc 425 ms [facility] [place] 29 degrees [facility] [place] 74 degrees [facility] [place] 21 degrees [facility] Diagnosis Normal sinus rhythm Possible Left atrial enlargement Left ventricular hypertrophy ST elevation, consider early repolarization, pericarditis, or injury Marked T wave abnormality consider anterolateral ischemia Confirmed by NICK ULRICH M.D. ([id number]) on 01/30/2025 4:32:43 PM [facility] 01/30/2025 2:25 AM CDT 01/30/2025 4:32 PM CDT Renetta Echols MD ECG ORDERABLES Final Re sult [facility] * eGFR (01/29/2025 10:36 PM CDT) Pathologist [facility] eGFR >90 >=60 mL/min/1. 73 m2 [...] interpretive data was last reviewed 2021. Blood 01/29/2025 10:3 6 PM CDT 01/29/2025 10:38 PM CDT us Renetta Echols MD LAB BLOOD ORDERABLES Fin al Result PRISCILLA [address] [facility] Department [place] [address] * Differential, auto (01/29/2025 10:36 PM CDT) Pathologist [facility] Neutrophil abs 5.66 1.50 - 6.50 K/cumm Imm gran abs 0.02 0.00 - 0.10 K/cumm [facility] Lymphocyte abs 0.97 0.80 - 3.30 K/cumm [facility] Monocyte abs 0.65 0.20 - 0.80 K/cumm [facility] Eosinophil abs 0.00 0.00 - 0.50 K/cumm [facility] Basophil abs 0.00 0.00 - 0.10 K/cumm [facility] Neutrophil pct 77.5 % [facility] Comment: Interpretive Data Percent cell count reference ranges are not reported, since discordance with absolute values may lead to misinterpretation of CBC data. Current Interpretive Data was last revised on 2017. Imm gran pct 0.3 % [facility] Comment: Interpretive Data Percent cell count reference ranges are not reported, since discordance with absolute values may lead to misinterpretation of CBC data. Current Interpretive Data was last revised on 2017. Lymphocyte pct 13.3 % [facility] Comment: Interpretive Data Percent cell count reference ranges are not reported, since discordance with absolute values may lead to misinterpretation of CBC data. Current Interpretive Data was last revised on 2017. Monocyte pct 8.9 % [facility] Comment: Interpretive Data Percent cell count reference ranges are not reported, since discordance with absolute values may lead to misinterpretation of CBC data. Current Interpretive Data was last revised on 2017. Eosinophil pct 0.0 % [facility] Comment: Interpretive Data Percent cell count reference ranges are not reported, since discordance with absolute values may lead to misinterpretation of CBC data. Current Interpretive Data was last revised on 2017. Basophil pct 0.0 % [facility] Comment: Interpretive Data Percent cell count reference ranges are not reported, since discordance with absolute values may lead to misinterpretation of CBC data. Current Interpretive Data was last revised on 2017. Blood 01/29/2025 10:3 6 PM CDT 01/29/2025 10:38 PM CDT us Renetta Echols MD LAB BLOOD ORDERABLES Fin al Result [facility] [address] [facility] Department [place] [address] * (ABNORMAL) Urinalysis reflex to microscopic and culture Urine (01/29/2025 10:36 PM CDT) Color, ur Yellow Yellow Clarity, ur Clear Clear [facility] Specific gravity, ur 1.025 1.003 - 1.030 [facility] pH, urine 5.5 [facility] Comment: Interpretive Data U rine pH is affected by diet, medications, systemic acid-base disturbances, and renal tubular function. pH may affect urinary stone formation. For example, urine pH below 6.0 may help reduce the tendency for calcium phosphate stones and pH greater than 6.0 may reduce the tendency for uric acid stone formation. Source: [facility] Current Interpretive Data was last revised on 2017 Protein, ur ql Negative Negative [facility] Glucose, ur ql Negative Negative [facility] Ketones, ur Negative Negative [facility] Bilirubin, ur Negative Negative [facility] Blood, ur 2+(A) Negative [facility] Urobilinogen, ur <2.0 <2.0 mg/dL [facility] Nitrite, ur Negative Negative [facility] Leukocyte esterase, ur Negative Negative [facility] UA reflex comment Reflex to microscopic UA will be performed. [facility] Urine 01/29/2025 10:3 6 PM CDT 01/29/2025 10:38 PM CDT Renetta Echols MD LAB MICROBIOLOGY - GENER AL ORDERABLES Final Result [facility] [address] [facility] Department [place] [address] * CBC with auto differential (01/29/2025 10:36 PM CDT) WBC 7.30 3.80 - 9.90 K/cumm Hgb 13.7 13.0 - 17.5 g/dL [facility] Hct 41.6 38.9 - 50.3 % [facility] Plt 257 150 - 400 K/cumm [facility] [facility] MPV 9.7 9.1 - 12.3 fL [facility] RBC 4.88 4.30 - 5.80 M/cumm [facility] MCV 85.2 81.3 - 96.4 fL [facility] MCH 28.1 27.1 - 33.3 pg [facility] MCHC 32.9 32.3 - 35.7 g/dL [facility] RDW CV 13.7 11.1 - 14.9 % [facility] RDW SD 42.6 35.7 - 48.1 fL [facility] NRBC abs 0.00 0.00 - 0.01 K/cumm [facility] Blood Venous blood specimen / Unknown 01/29/2025 10:36 PM CDT 01/29/2025 10:38 PM CDT Renetta Echols MD LAB BLOOD ORDERABLES Fin al Result Performing Organization Address [facility] Co de Phone Number [address] [address] * (ABNORMAL) Urinalysis, microscopic only (01/29/2025 10:36 PM CDT) WBC, ur 0-5 0 - 5 /HPF RBC, ur 6-10(A) 0 - 2 /HPF [facility] Mucous, ur Present(A) [facility] Culture Reflex Comment Reflex conditions for urine culture (WBC >10) not met. [facility] Urine 01/29/2025 10:3 6 PM CDT 01/29/2025 10:38 PM CDT Renetta Echols MD LAB URINE ORDERABLES Fin al Result Performing Organization Address [facility] de Phone Number [address] [address] * Lipase (01/29/2025 10:36 PM CDT) Lipase 24 10 - 99 Units/L Blood Venous blood specimen / Unknown 01/29/2025 10:36 PM CDT 01/29/2025 10:38 PM CDT Renetta Echols MD LAB BLOOD ORDERABLES Fin al Result Performing Organization Address [facility] Co de Phone Number [address] [address] * (ABNORMAL) Comprehensive metabolic panel (01/29/2025 10:36 PM CDT) Sodium 137 135 - 145 mmol/L Potassium, pl 4.3 3.3 - 4.9 mmol/L [facility] Chloride 104 97 - 110 mmol/L [facility] CO2 21(L) 22 - 32 mmol/L [facility] Anion gap 12 2 - 15 mmol/L [facility] BUN 13 6 - 25 mg/dL [facility] Creatinine 1.04 0.80 - 1.30 mg/dL [facility] Glucose 121 70 - 199 mg/dL [facility] Comment: Interpretive Data Fasting glucose >/= 126 [...] 2022. Calcium 9.8 8.5 - 10.3 mg/dL [facility] Bilirubin, total 0.4 0.1 - 1.2 mg/dL [facility] Protein, pl 7.9 6.5 - 8.5 g/dL [facility] Albumin 4.8 3.5 - 5.0 g/dL [facility] Alk phos 68 40 - 130 Units/L [facility] ALT 29 7 - 55 Units/L [facility] AST 25 10 - 50 Units/L [facility] Blood 01/29/2025 10:3 6 PM CDT 01/29/2025 10:38 PM CDT us Renetta Echols MD LAB BLOOD ORDERABLES Fin al Result [facility] [address] [facility] Department [place] [address] * TRANSTHORACIC ECHO (TTE) COMPLETE W DOPPLER/CF WO CONTRAST (01/29/2025 7:59 AM CDT) EF Mod BP 58 % CONS SCIMAGE Anatomical Region Laterality Modality Ultrasound 01/29/2025 7:04 AM CDT Narrative 01/29/2025 9:10 AM CDT [facility] [place] [address] Transthoracic Echocardiographic Report Patient Name: KIMBERLEY ESCOBAR L : 1990 (34y 10m) Gender: M Study Date: 01/29/2025 07:04:02 AM Ht(Inch): 71 Wt(Lb): 173.94 BSA: 1.99 Deputy Building Guard: Manas Lopez RDCS Location: [id number] Order Provider: ARLETH JOHNSON Heart Rate: 51 BMI: 24.26 BP: 137 / 85 Ref Provider: ARLETH JOHNSON PROCEDURES: Echocardiographic Report: Transthoracic complete echo with strain imaging, 2D, spectral and tissue Doppler, color flow Doppler, M-mode. INDICATIONS: Pericarditis. CONCLUSIONS: 1. Normal left ventricular size based on volume index. Normal LV wall thickness. Normal left ventricular systolic function. The Ejection Fraction (Hugo's) is measured at 58 %. Normal diastolic function. The average global longitudinal strain is abnormal. 2. There are no regional wall motion abnormalities. 3. Normal right ventricular size. Normal right ventricular systolic function. 4. The Estimated RVSP is : 18.0 mmHg. 5. Normal pericardium without pericardial effusion. COMPARISONS: No change compared to prior study on: 12/14/20. ATTESTATION: I have personally reviewed and interpreted this study without fellow or resident. - DISCLAIMER: The study images and the final report will be retained in the patient chart by the Echo Laboratory for the legally required time period. This chart constitutes the legal record of any testing performed. FINDINGS: Left Ventricle: Normal left ventricular size based on volume index. Normal LV wall thickness. Normal left ventricular systolic function. The Ejection Fraction (Hugo's) is measured at 58 %. Normal diastolic function. The average global longitudinal strain is abnormal. The LV global strain is: -15.9 %. Regional Wall Motion: There are no regional wall motion abnormalities. Right Ventricle: Normal right ventricular size. Normal right ventricular systolic function. Left Atrium: The left atrium is normal in size. Right Atrium: The right atrium is normal in size. Atrial Septum: Normal interatrial septum. Mitral Valve: Normal mitral valve structure. No mitral regurgitation. No stenosis present. Trivial (non significant) mitral regurgitation. Aortic Valve: Normal trileaflet aortic valve. No aortic regurgitation. No aortic valve stenosis. The mean transaortic gradient is 3 mmHg. The aortic valve area by the continuity equation (using VTI) is 3.54 cm2. Aortic valve dimensionless index is 0.80. Tricuspid Valve: Normal tricuspid valve structure. Mild tricuspid regurgitation. The Estimated RVSP is : 18.0 mmHg. No tricuspid valve stenosis. Pulmonic Valve: Normal pulmonic valve structure. Mild pulmonic regurgitation. No pulmonic valve stenosis present. Pericardium: Normal pericardium without pericardial effusion. Aorta: Normal aortic root size when indexed. The ascending aorta is normal in size when indexed. IVC: IVC is normal in size. The IVC was <2.1 cm and collapsibility >50%. (est. RA pressure 0-5 mmHg). PASP: Normal estimated pulmonary artery systolic pressure. Rhythm: Normal Sinus rhythm was seen during the study. MEASUREMENTS: 2D/MM Value Range Doppler Value Range LVIDd 2D 4.39 cm [ 4.20 - 5.80 ] AV Peak Paulino 1.2 m/s [ 1.0 - 1.7 ] LVIDs 2D 2.98 cm [ 2.50 - 4.00 ] AV Peak PG 5.76 mmHg IVSd 2D 1.05 cm [ 0.60 - 1.00 ] AV Mean PG 3 mmHg LVPWd 2D 1.02 cm [ 0.60 - 1.00 ] AV VTI 25.5 cm LV Thickness Ratio 1.0 LVOT Peak Paulino 1.0 m/s [ 0.7 - 1.1 ] LV FS 2D 32.21 % [ 25.00 - 43.00 ] LVOT Peak PG 4.00 mmHg LV Mass 2D 157.21 g LVOT Mean PG 2 mmHg LV Mass Index 2D 79.00 g/m2 LVOT VTI 20.3 cm RWT 0.46 LVOT Diam 2.38 cm EDV Mod BP 126.71 ml [ 62.00 - 150.00 ] GAVIN VTI 3.54 cm2 LV EDV Index 63.67 ml/m2 LVOT/AV VTI 0.80 - Dimensionless index (DVI) ESV Mod BP 52.85 ml [ 21.00 - 61.00 ] MV E Peak Paulino 0.8 m/s [ 0.6 - 1.3 ] EF Mod BP 58 % [ 52 - 72 ] MV A Peak Paulino 0.4 m/s [ 1.0 - 1.2 ] LV GLS -15.9 % [ -25.0 - -18.0 ] MV E/A 1.8 ratio [ 0.8 - 1.5 ] LA Length 4C 6.28 cm MV Decel Time 251.95 msec [ 104.00 - 258.00 ] LA Length 2C 4.86 cm Med E` Paulino 12.0 cm/sec [ 8.0 - 25.0 ] LA Volume BP 87.57 ml Lat E` Paulino 13.6 cm/sec [ 10.0 - 25.0 ] LA Volume Index 44.01 ml/m2 [ 16.00 - 34.00 ] Average E/E` 6.25 RV Base Dimen 2D 3.6 cm [ 2.5 - 4.2 ] RV S` 12.12 cm/sec TAPSE 2.53 cm [ 1.71 - 5.00 ] TR Peak Paulino 2.1 m/s [ 1.0 - 2.8 ] RA Volume 61.75 ml TR Peak PG 17.6 mmHg RA Volume Index 31.03 ml/m2 PI ED Paulino 98.85 m/sec AoR Diam 2D 3.79 cm [ 3.10 - 3.70 ] Ao Root Index 1.90 cm/m2 [ 1.00 - 2.00 ] Asc Ao Diam 2D 2.84 cm Asc Ao Index 1.43 cm/m2 Electronically Signed By: Triston Hernandez MD 01/29/2025 9:10:09 AM CDT Procedure Note Triston Mosher MD - 01/29/2025 [facility] [place] [address] Transthoracic Echocardiographic Report Patient Name: KIMBERLEY ESCOBAR L : 1990 (34y 10m) Gender: M Study Date: 01/29/2025 07:04:02 AM Ht(Inch): 71 Wt(Lb): 173.94 BSA: 1.99 Deputy Building Guard: Manas Lopez RDCS Location: [id number] Order Provider: ARLETH DIXON Heart Rate: 51 BMI: 24.26 BP: 137 / 85 Ref Provider: ARLETH JOHNSON PROCEDURES: Echocardiographic Report: Transthoracic complete echo with strain imaging,2D, spectral and tissue Doppler, color flow Doppler, M-mode. INDICATIONS: Pericarditis. CONCLUSIONS: 1. Normal left ventricular size based on volume index. Normal LV wallthickness. Normal left ventricular systolic function. The Ejection Fraction (Hugo's) ismeasured at 58 %. Normal diastolic function. The average global longitudinal strain isabnormal. 2. There are no regional wall motion abnormalities. 3. Normal right ventricular size. Normal right ventricular systolicfunction. 4. The Estimated RVSP is : 18.0 mmHg. 5. Normal pericardium without pericardial effusion. COMPARISONS: No change compared to prior study on: 12/14/20. ATTESTATION: I have personally reviewed and interpreted this study without fellow orresident. - DISCLAIMER: The study images and the final report will be retained in the patientchart by the Echo Laboratory for the legally required time period. This chart constitutesthe legal record of any testing performed. FINDINGS: Left Ventricle: Normal left ventricular size based on volume index. NormalLV wall thickness. Normal left ventricular systolic function. The EjectionFraction (Hugo's) is measured at 58 %. Normal diastolic function. The average globallongitudinal strain is abnormal. The LV global strain is: -15.9 %. Regional Wall Motion: There are no regional wall motion abnormalities. Right Ventricle: Normal right ventricular size. Normal right ventricularsystolic function. Left Atrium: The left atrium is normal in size. Right Atrium: The right atrium is normal in size. Atrial Septum: Normal interatrial septum. Mitral Valve: Normal mitral valve structure. No mitral regurgitation. Nostenosis present. Trivial (non significant) mitral regurgitation. Aortic Valve: Normal trileaflet aortic valve. No aortic regurgitation. Noaortic valve stenosis. The mean transaortic gradient is 3 mmHg. The aortic valve areaby the continuity equation (using VTI) is 3.54 cm2. Aortic valve dimensionlessindex is 0.80. Tricuspid Valve: Normal tricuspid valve structure. Mild tricuspidregurgitation. The Estimated RVSP is : 18.0 mmHg. No tricuspid valve stenosis. Pulmonic Valve: Normal pulmonic valve structure. Mild pulmonicregurgitation. No pulmonic valve stenosis present. Pericardium: Normal pericardium without pericardial effusion. Aorta: Normal aortic root size when indexed. The ascending aorta is normalin size when indexed. IVC: IVC is normal in size. The IVC was <2.1 cm and collapsibility >50%.(est. RA pressure 0-5 mmHg). PASP: Normal estimated pulmonary artery systolic pressure. Rhythm: Normal Sinus rhythm was seen during the study. MEASUREMENTS: 2D/MM Value Range DopplerValue Range LVIDd 2D 4.39 cm [ 4.20 - 5.80 ] AV Peak Vel1.2 m/s [ 1.0 - 1.7 ] LVIDs 2D 2.98 cm [ 2.50 - 4.00 ] AV Peak PG5.76 mmHg IVSd 2D 1.05 cm [ 0.60 - 1.00 ] AV Mean PG3 mmHg LVPWd 2D 1.02 cm [ 0.60 - 1.00 ] AV VTI25.5 cm LV Thickness Ratio 1.0 LVOT Peak Vel1.0 m/s [ 0.7 - 1.1 ] LV FS 2D 32.21 % [ 25.00 - 43.00 ] LVOT Peak PG4.00 mmHg LV Mass 2D 157.21 g LVOT Mean PG2 mmHg LV Mass Index 2D 79.00 g/m2 LVOT VTI20.3 cm RWT 0.46 LVOT Diam2.38 cm EDV Mod BP 126.71 ml [ 62.00 - 150.00 ] GAVIN VTI3.54 cm2 LV EDV Index 63.67 ml/m2 LVOT/AV VTI0.80 - Dimensionless index (DVI) ESV Mod BP 52.85 ml [ 21.00 - 61.00 ] MV E Peak Vel0.8 m/s [ 0.6 - 1.3 ] EF Mod BP 58 % [ 52 - 72 ] MV A Peak Vel0.4 m/s [ 1.0 - 1.2 ] LV GLS -15.9 % [ -25.0 - -18.0 ] MV E/A1.8 ratio [ 0.8 - 1.5 ] LA Length 4C 6.28 cm MV Decel Peay667.95 msec [ 104.00 - 258.00 ] LA Length 2C 4.86 cm Med E` Vel12.0 cm/sec [ 8.0 - 25.0 ] LA Volume BP 87.57 ml Lat E` Vel13.6 cm/sec [ 10.0 - 25.0 ] LA Volume Index 44.01 ml/m2 [ 16.00 - 34.00 ] Average E/E`6.25 RV Base Dimen 2D 3.6 cm [ 2.5 - 4.2 ] RV S`12.12 cm/sec TAPSE 2.53 cm [ 1.71 - 5.00 ] TR Peak Vel2.1 m/s [ 1.0 - 2.8 ] RA Volume 61.75 ml TR Peak PG17.6 mmHg RA Volume Index 31.03 ml/m2 PI ED Vel98.85 m/sec AoR Diam 2D 3.79 cm [ 3.10 - 3.70 ] Ao Root Index 1.90 cm/m2 [ 1.00 - 2.00 ] Asc Ao Diam 2D2.84 cm Asc Ao Index1.43 cm/m2 Electronically Signed By: Triston Hernandez MD 01/29/2025 9:10:09 AM CDT us Arleth Johnson MD CV ECHO PROCEDURE S Final Result * Troponin I high-sensitivity 2-hour (01/28/2025 2:33 AM CDT) Trop I hs 24 <=35 ng/L Comment: Interpretive Data For further hscTnI resources including the diagnostic algorithm and an aid in interpretation, copy and paste this link: https://bjhlab.testcatalog.org/show/hsTrop-1 Current Interpretive Data last revised 2020. Trop I hs delta 1 ng/L [facility] Trop I hs interp Insignificant [facility] Blood 01/28/2025 2:33 AM CDT 01/28/2025 3:48 AM CDT us Navarro Alston MD PhD LAB BLOOD ORDERABLES F inal Result [facility] [address] [facility] Department [place] [address] * XR Chest PA Lateral 2 Views (If patient hemodynamically stable and ambulatory) (01/28/2025 1:30 AM CDT) Anatomical Region Laterality Modality Body, Chest N/A Computed Radiogr aphy 01/28/2025 1:51 AM CDT Impressions 01/28/2025 9:09 AM CDT The current study is compared with the prior radiograph dated 01/13/2025. No consolidation, pleural effusion, or pneumothorax. Mild streaky right basilar atelectasis. Heart size and mediastinal contours are normal. Dictated by: Shamar Mcghee MD The radiology attending physician has personally reviewed this study, and had reviewed and/or edited this written report and agrees with it. Electronically signed by: Zaid Ambriz M.D. Narrative 01/28/2025 9:09 AM CDT EXAMINATION: 2 view chest radiograph Procedure Note Zaid Ambriz MD - 01/28/2025 EXAMINATION: 2 view chest radiograph IMPRESSION: The current study is compared with the prior radiograph dated 01/13/2025. No consolidation, pleural effusion, or pneumothorax. Mild streaky right basilar atelectasis. Heart size and mediastinal contours are normal. Dictated by: Shamar Mcghee MD The radiology attending physician has personally reviewed this study, and had reviewed and/or edited this written report and agrees with it. Electronically signed by: Zaid Ambriz M.D. us Rupert Kaplan MD IMG XR PROCEDURES Fin al Result * Troponin I high-sensitivity series (baseline, 2hr, 4hr, 6hr) (01/28/2025 12:33 AM CDT) Pathologist [facility] Trop I hs 23 <=35 ng/L Comment: Interpretive Data For further hscTnI resources including the diagnostic algorithm and an aid in interpretation, copy and paste this link: https://bjhlab.testcatalog.org/show/hsTrop-1 Current Interpretive Data last revised 2020. Blood 01/28/2025 12:3 3 AM CDT 01/28/2025 12:53 AM CDT us Navarro Alston MD PhD LAB BLOOD ORDERABLES F inal Result [facility] [address] [facility] Department [place] [address] * eGFR (01/28/2025 12:33 AM CDT) Pathologist [facility] eGFR 87 >=60 mL/min/1. 73 m2 Comment: Interpretive Data [...] interpretive data was last reviewed 2021. Blood 01/28/2025 12:3 3 AM CDT 01/28/2025 12:53 AM CDT us Dara Li MD LAB BLOOD ORDERABLES Vickie l Result [facility] [address] [facility] Department [place] [address] * Differential, auto (01/28/2025 12:33 AM CDT) Neutrophil abs 2.75 1.50 - 6.50 K/cumm Imm gran abs 0.01 0.00 - 0.10 K/cumm [facility] Lymphocyte abs 1.65 0.80 - 3.30 K/cumm [facility] Monocyte abs 0.58 0.20 - 0.80 K/cumm [facility] Eosinophil abs 0.27 0.00 - 0.50 K/cumm [facility] Basophil abs 0.01 0.00 - 0.10 K/cumm [facility] Neutrophil pct 52.2 % [facility] Comment: Interpretive Data Percent cell count reference ranges are not reported, since discordance with absolute values may lead to misinterpretation of CBC data. Current Interpretive Data was last revised on 2017. Imm gran pct 0.2 % [facility] Comment: Interpretive Data Percent cell count reference ranges are not reported, since discordance with absolute values may lead to misinterpretation of CBC data. Current Interpretive Data was last revised on 2017. Lymphocyte pct 31.3 % [facility] Comment: Interpretive Data Percent cell count reference ranges are not reported, since discordance with absolute values may lead to misinterpretation of CBC data. Current Interpretive Data was last revised on 2017. Monocyte pct 11.0 % [facility] Comment: Interpretive Data Percent cell count reference ranges are not reported, since discordance with absolute values may lead to misinterpretation of CBC data. Current Interpretive Data was last revised on 2017. Eosinophil pct 5.1 % [facility] Comment: Interpretive Data Percent cell count reference ranges are not reported, since discordance with absolute values may lead to misinterpretation of CBC data. Current Interpretive Data was last revised on 2017. Basophil pct 0.2 % [facility] Comment: Interpretive Data Percent cell count reference ranges are not reported, since discordance with absolute values may lead to misinterpretation of CBC data. Current Interpretive Data was last revised on 2017. Blood 01/28/2025 12:3 3 AM CDT 01/28/2025 12:53 AM CDT us Navarro Alston MD PhD LAB BLOOD ORDERABLES F inal Result [facility] [address] [facility] Department [place] [address] * (ABNORMAL) CBC with auto differential (01/28/2025 12:33 AM CDT) WBC 5.27 3.80 - 9.90 K/cumm Hgb 12.9(L) 13.0 - 17.5 g/dL [facility] Hct 39.0 38.9 - 50.3 % [facility] Plt 232 150 - 400 K/cumm [facility] MPV 9.8 9.1 - 12.3 fL [facility] RBC 4.56 4.30 - 5.80 M/cumm [facility] MCV 85.5 81.3 - 96.4 fL [facility] MCH 28.3 27.1 - 33.3 pg [facility] MCHC 33.1 32.3 - 35.7 g/dL [facility] RDW CV 14.5 11.1 - 14.9 % [facility] RDW SD 44.2 35.7 - 48.1 fL [facility] NRBC abs 0.00 0.00 - 0.01 K/cumm [facility] Blood 01/28/2025 12:3 3 AM CDT 01/28/2025 12:53 AM CDT Navarro Alston MD PhD LAB BLOOD ORDERABLES F inal Result Performing Organization Address City/[facility]/ZIP Co de Phone Number [facility] [place] [place] [employer] [place] [address] * CRP (acute phase) (01/28/2025 12:33 AM CDT) Pathologist [facility] CRP <0.5 <=10.0 mg/L Blood 01/28/2025 12:3 3 AM CDT 01/28/2025 12:53 AM CDT Navarro Alston MD PhD LAB BLOOD ORDERABLES F inal Result Performing Organization Address City/[facility]/ZIP Co de Phone Number [facility] Department [place] [address] * Comprehensive metabolic panel (01/28/2025 12:33 AM CDT) Pathologist [facility] Sodium 142 135 - 145 mmol/L Potassium, pl 4.1 3.3 - 4.9 mmol/L [facility] Chloride 109 97 - 110 mmol/L [facility] CO2 24 22 - 32 mmol/L [facility] Anion gap 9 2 - 15 mmol/L [facility] BUN 10 6 - 25 mg/dL [facility] Creatinine 1.14 0.80 - 1.30 mg/dL [facility] Glucose 150 70 - 199 mg/dL [facility] Comment: Interpretive Data Fasting glucose >/= [...] interpretive data was last revised 2022. Calcium 9.4 8.5 - 10.3 mg/dL [facility] Bilirubin, total 0.3 0.1 - 1.2 mg/dL [facility] Protein, pl 7.2 6.5 - 8.5 g/dL [facility] Albumin 4.0 3.5 - 5.0 g/dL [facility] Alk phos 65 40 - 130 Units/L [facility] ALT 45 7 - 55 Units/L [facility] AST 41 10 - 50 Units/L [facility] Blood 01/28/2025 12:3 3 AM CDT 01/28/2025 12:53 AM CDT Rupert Kaplan MD LAB BLOOD ORDERABLES Final Result [facility] [address] [facility] Department [place] [address] * (ABNORMAL) ECG 12-LEAD (01/28/2025 12:14 AM CDT) Narrative [facility] - 01/28/2025 12:14 AM CDT Rupert Kaplan MD 01/28/2025 12:15 AM ECG 12 lead Date/Time: 01/28/2025 12:14 AM Performed by: Rupert Kaplan MD Authorized by: Dara Li MD Interpretation: Interpretation: abnormal Comments: Sinus rhythm, heart rate 69. Borderline right axis. Normal intervals. Diffuse ST elevations with ST-depression in AVR. Mild diffuse [place] depression. Compared with prior, 01/13/2025, relatively unchanged. Most likely pericarditis. us Rupert Kaplan MD ECG ORDERABLES Final Result [facility] * eGFR (01/18/2025 1:39 AM CDT) eGFR >90 >=60 mL/min/1. 73 [...] interpretive data was last reviewed 2021. Blood 01/18/2025 1:39 AM CDT 01/18/2025 1:43 AM CDT us Luana Beckett MD LAB BLOOD ORDERABLES Final Resul t [facility] ([place]) 1 [facility] Department [place] [address] * Differential, auto (01/18/2025 1:39 AM CDT) Neutrophil abs 3.25 1.50 - 6.50 K/cumm Imm gran abs 0.02 0.00 - 0.10 K/cumm [facility] ([place]) Lymphocyte abs 2.35 0.80 - 3.30 K/cumm [facility] ([place]) Monocyte abs 0.56 0.20 - 0.80 K/cumm [facility] ([place]) Eosinophil abs 0.11 0.00 - 0.50 K/cumm [facility] ([place]) Basophil abs 0.03 0.00 - 0.10 K/cumm [facility] ([place]) Neutrophil pct 51.4 % [facility] ([place]) Comment: Interpretive Data Percent cell count reference ranges are not reported, since discordance with absolute values may lead to misinterpretation of CBC data. Current Interpretive Data was last revised on 2017. Imm gran pct 0.3 % [facility] ([place]) Comment: Interpretive Data Percent cell count reference ranges are not reported, since discordance with absolute values may lead to misinterpretation of CBC data. Current Interpretive Data was last revised on 2017. Lymphocyte pct 37.2 % [facility] ([place]) Comment: Interpretive Data Percent cell count reference ranges are not reported, since discordance with absolute values may lead to misinterpretation of CBC data. Current Interpretive Data was last revised on 2017. Monocyte pct 8.9 % [facility] ([place]) Comment: Interpretive Data [...] was last revised on 2017. Basophil pct 0.5 % [facility] ([place]) Comment: Interpretive Data Percent cell count reference ranges are not reported, since discordance with absolute values may lead to misinterpretation of CBC data. Current Interpretive Data was last revised on 2017. Blood 01/18/2025 1:39 AM CDT 01/18/2025 1:43 AM CDT us Luana Beckett MD LAB BLOOD ORDERABLES Final Resul t [facility] ([place]) 1 [facility] Department [place] [address] * CBC with auto differential (01/18/2025 1:39 AM CDT) WBC 6.32 3.80 - 9.90 K/cumm Hgb 13.0 13.0 - 17.5 g/dL [facility] ([place]) Hct 38.9 38.9 - 50.3 % [facility] ([place]) Plt 232 150 - 400 K/cumm [facility] ([place]) MPV 9.6 9.1 - 12.3 fL [facility] ([place]) RBC 4.44 4.30 - 5.80 M/cumm [facility] ([place]) MCV 87.6 81.3 - 96.4 fL [facility] ([place]) MCH 29.3 27.1 - 33.3 pg [facility] ([place]) MCHC 33.4 32.3 - 35.7 g/dL [facility] ([place]) RDW CV 13.5 11.1 - 14.9 % [facility] ([place]) RDW SD 42.9 35.7 - 48.1 fL [facility] ([place]) NRBC abs 0.00 0.00 - 0.01 K/cumm [facility] Blood 01/18/2025 1:39 AM CDT 01/18/2025 1:43 AM CDT us Luana Beckett MD LAB BLOOD ORDERABLES Final Resul t [facility] ([place]) 1 [facility] Department [place] [address] * Basic metabolic panel (01/18/2025 1:39 AM CDT) Sodium 142 135 - 145 mmol/L Potassium, pl 3.7 3.3 - 4.9 mmol/L [facility] ([place]) Chloride 106 97 - 110 mmol/L [facility] ([place]) CO2 23 22 - 32 mmol/L [facility] ([place]) Anion gap 13 2 - 15 mmol/L [facility] ([place]) BUN 14 6 - 25 mg/dL [facility] ([place]) Creatinine 1.10 0.80 - 1.30 mg/dL [facility] ([place]) Glucose 141 70 - 199 mg/dL [facility] ([place]) Comment: Interpretive Data Fasting glucose >/= 126 [...] 2022. Calcium 8.9 8.5 - 10.3 mg/dL [facility] ([place]) Blood 01/18/2025 1:39 AM CDT 01/18/2025 1:43 AM CDT us uLana Beckett MD LAB BLOOD ORDERABLES Final Resul t Performing Organization Address City/[facility] Co de Phone Number [facility] ([place]) 1 [facility] [place] [place] [address] * Troponin T high-sensitivity 2-hour (01/13/2025 10:45 AM CDT) Trop T hs <6 <=22 ng/L Comment: Interpretive Data For further hscTnT resources including the diagnostic algorithm and an aid in interpretation, copy and paste this link: https://nrl.testcatalog.org/show/hsTrop Current Interpretive Data last revised 2020. Trop T hs delta 0 ng/L [facility] Trop T hs interp Insignificant [facility] Blood 01/13/2025 10:4 5 AM CDT 01/13/2025 11:08 AM CDT us Ray Murphy MD LAB BLOOD ORDERABLES Final Resul t Performing Organization Address City/[facility]/ZIP Co de Phone Number [facility] [address] [facility] Department [place] [address] * Influenza A/B, RSV, and COVID-19 PCR Nasopharyngeal (01/13/2025 10:45 AM CDT) COVID-19 RNA Negative Negative Influenza A RNA Negative Negative [facility] Influenza B RNA Negative Negative [facility] RSV RNA Negative Negative [facility] Comment: Interpretive data: Testing performed by [facility]. This test is performed using the StarCard Xpert Xpress CoV-2/Flu/RSV plus assay. This is a multiplex, real-time reverse transcriptase PCR assay intended for the qualitative detection of nucleic acid from SARS-CoV-2, influenza A, influenza B, and respiratory syncytial virus. This assay has been cleared by the [place] Food and Drug administration. The performance characteristics have been verified by the [facility]. Results must be considered in the clinical context, and a negative result does not rule out infection. Interpretive Data last revised 2023 Nasopharyngeal 01/13/2025 10 :45 AM CDT 01/13/2025 10:49 AM CDT Narrative [facility] - 01/13/2025 11:53 AM CDT Is the Patient experiencing symptoms consistent with COVID?->Unknown us Ray Murphy MD LAB MICROBIOLOGY - GENERAL ORDER DIEGO Final Result [facility] [address] [facility] Department [place] [address] * XR Chest 1 Vw Portable (if patient condition/safety warrant portable) (01/13/2025 10:45 AM CDT) Anatomical Region Laterality Modality Body, Chest N/A Computed Radiogr aphy 01/13/2025 10:5 5 AM CDT Narrative 01/13/2025 10:56 AM CDT EXAM DESCRIPTION: XR CHEST 1 VIEW REASON FOR STUDY: chest pain Per RN note: Pt reports sternal chest pain x 1 week intermittently radiating to his left shoulder. Pt reports pain is intermittent lasting about 1 -2 hrs. Pain is described as sharp. Pt reports pain increases on movement and at time when he takes a deep breath TECHNIQUE: 1 radiographic view(s) of the chest. COMPARISON: 12/29/2024 FINDINGS: LUNGS: No focal opacity, pleural effusion, or pneumothorax. HEART/MEDIASTINUM: Cardiac silhouette normal in size. Mediastinal and hilar contours appear normal. LINES/TUBES: None. BONES: No acute osseous abnormality. IMPRESSION: No acute cardiopulmonary abnormality. THIS IS AN ELECTRONICALLY VERIFIED FINAL REPORT 01/13/2025 10:56 AM - Electronically signed by Todd Castro M.D. ZEHRA T: Report ID: [id number] Reading Location: [id number] Procedure Note Serjio Castro MD - 01/13/2025 EXAM DESCRIPTION: XR CHEST 1 VIEW REASON FOR STUDY: chest pain Per RN note: Pt reports sternal chest pain x 1 week intermittently radiating to his left shoulder. Pt reports pain is intermittent lastingabout 1 -2 hrs. Pain is described as sharp. Pt reports pain increases onmovement and at time when he takes a deep breath TECHNIQUE: 1 radiographic view(s) of the chest. COMPARISON: 12/29/2024 FINDINGS: LUNGS: No focal opacity, pleural effusion, or pneumothorax. HEART/MEDIASTINUM: Cardiac silhouette normal in size. Mediastinal andhilar contours appear normal. LINES/TUBES: None. BONES: No acute osseous abnormality. IMPRESSION: No acute cardiopulmonary abnormality. THIS IS AN ELECTRONICALLY VERIFIED FINAL REPORT 01/13/2025 10:56 AM - Electronically signed by Todd Castro M.D. ZEHRA T: Report ID: [id number] Reading Location: [id number] us Ray Murphy MD IMG XR PROCEDURES Final Result * Erythrocyte sedimentation rate (01/13/2025 10:45 AM CDT) Erythrocyte sedimentation rate 12 1 - 15 mm/hr Blood 01/13/2025 10:4 5 AM CDT 01/13/2025 11:08 AM CDT us Ray Murphy MD LAB BLOOD ORDERABLES Final Resul t Performing Organization Address City/[facility] Co de Phone Number PRISCILLA [facility] [place] [place] [address] * CRP (acute phase) (01/13/2025 10:45 AM CDT) CRP 0.5 <=10.0 mg/L Blood 01/13/2025 10:4 5 AM CDT 01/13/2025 11:08 AM CDT us Ray Murphy MD LAB BLOOD ORDERABLES Final Resul t Performing Organization Address [facility] de Phone Number [facility] [address] [place] [address] * ECG 12 lead (01/13/2025 9:08 AM CDT) [facility] Ventricular Rate EKG/Min 73 BPM [facility] Atrial Rate 73 BPM [facility] [place]-Interval (MSEC) 162 ms [facility] QRS-Interval (MSEC) 104 ms [facility] QT-Interval (MSEC) 362 ms [facility] QTc 398 ms [facility] [place] 55 degrees [facility] [place] 87 degrees [facility] [place] 68 degrees [facility] Diagnosis Normal sinus rhythm with sinus arrhythmia Voltage criteria for left ventricular hypertrophy likely pericarditis Confirmed by NICK ULRICH M.D. ([id number]) on 01/13/2025 2:20:07 PM [facility] 01/13/2025 9:08 AM CDT 01/13/2025 2:20 PM CDT us Ray Murphy MD ECG ORDERABLES Final Result Performing Organization Address [facility] Co de Phone Number [facility] * Troponin T high-sensitivity series (baseline, 2hr, 4hr, 6hr) (01/13/2025 8:59 AM CDT) Trop T hs <6 <=22 ng/L Comment: Interpretive Data For further hscTnT resources including the diagnostic algorithm and an aid in interpretation, copy and paste this link: https://nrl.testcatalog.org/show/hsTrop Current Interpretive Data last revised 2020. Blood 01/13/2025 8:59 AM CDT 01/13/2025 9:02 AM CDT us Ray Murphy MD LAB BLOOD ORDERABLES Final Resul t Performing Organization Address City/[facility] Co de Phone Number [facility] [address] [place] [address] * eGFR (01/13/2025 8:59 AM CDT) [facility] eGFR >90 >=60 mL/min/1. 73 m2 [...] interpretive data was last reviewed 2021. Blood 01/13/2025 8:59 AM CDT 01/13/2025 9:02 AM CDT us Ray Murphy MD LAB BLOOD ORDERABLES Final Resul t Performing Organization Address City/[facility] Co de Phone Number [address] [place] [place] [address] * (ABNORMAL) Differential, auto (01/13/2025 8:59 AM CDT) Neutrophil abs 5.23 1.50 - 6.50 K/cumm Imm gran abs 0.02 0.00 - 0.10 K/cumm [facility] Lymphocyte abs 0.51(L) 0.80 - 3.30 K/cumm [facility] Monocyte abs 0.20 0.20 - 0.80 K/cumm [facility] Eosinophil abs 0.00 0.00 - 0.50 K/cumm [facility] Basophil abs 0.01 0.00 - 0.10 K/cumm [facility] Neutrophil pct 87.6 % [facility] Comment: Interpretive Data Percent cell count reference ranges are not reported, since discordance with absolute values may lead to misinterpretation of CBC data. Current Interpretive Data was last revised on 2017. Imm gran pct 0.3 % [facility] Comment: Interpretive Data Percent cell count reference ranges are not reported, since discordance with absolute values may lead to misinterpretation of CBC data. Current Interpretive Data was last revised on 2017. Lymphocyte pct 8.5 % [facility] Comment: Interpretive Data Percent cell count reference ranges are not reported, since discordance with absolute values may lead to misinterpretation of CBC data. Current Interpretive Data was last revised on 2017. Monocyte pct 3.4 % [facility] Comment: Interpretive Data Percent cell count reference ranges are not reported, since discordance with absolute values may lead to misinterpretation of CBC data. Current Interpretive Data was last revised on 2017. Eosinophil pct 0.0 % [facility] Comment: Interpretive Data Percent cell count reference ranges are not reported, since discordance with absolute values may lead to misinterpretation of CBC data. Current Interpretive Data was last revised on 2017. Basophil pct 0.2 % [facility] Comment: Interpretive Data Percent cell count reference ranges are not reported, since discordance with absolute values may lead to misinterpretation of CBC data. Current Interpretive Data was last revised on 2017. Blood 01/13/2025 8:59 AM CDT 01/13/2025 9:02 AM CDT us Ray Murphy MD LAB BLOOD ORDERABLES Final Resul t [address] [address] * (ABNORMAL) CBC with auto differential (01/13/2025 8:59 AM CDT) [facility] WBC 5.97 3.80 - 9.90 K/cumm Hgb 13.4 13.0 - 17.5 g/dL [facility] Hct 41.7 38.9 - 50.3 % [facility] Plt 255 150 - 400 K/cumm [facility] MPV 9.3 9.1 - 12.3 fL [facility] RBC 4.78 4.30 - 5.80 M/cumm [facility] MCV 87.2 81.3 - 96.4 fL [facility] MCH 28.0 27.1 - 33.3 pg [facility] MCHC 32.1(L) 32.3 - 35.7 g/dL [facility] RDW CV 14.0 11.1 - 14.9 % [facility] RDW SD 44.2 35.7 - 48.1 fL [facility] NRBC abs 0.00 0.00 - 0.01 K/cumm [facility] Blood Venous blood specimen / Unknown 01/13/2025 8:59 AM CDT 01/13/2025 9:02 AM CDT us Ray Murphy MD LAB BLOOD ORDERABLES Final Resul t Performing Organization Address [facility] Co de Phone Number [address] Department [place] [address] * (ABNORMAL) Comprehensive metabolic panel (01/13/2025 8:59 AM CDT) [facility] Sodium 138 135 - 145 mmol/L Potassium, pl 4.5 3.3 - 4.9 mmol/L [facility] Chloride 104 97 - 110 mmol/L [facility] CO2 21(L) 22 - 32 mmol/L [facility] Anion gap 13 2 - 15 mmol/L [facility] BUN 9 6 - 25 mg/dL [facility] Creatinine 0.98 0.80 - 1.30 mg/dL [facility] Glucose 126 70 - 199 mg/dL [facility] Comment: Interpretive Data Fasting glucose >/= 126 [...] interpretive data was last revised 2022. Calcium 9.6 8.5 - 10.3 mg/dL [facility] Bilirubin, total 0.3 0.1 - 1.2 mg/dL [facility] Protein, pl 7.7 6.5 - 8.5 g/dL [facility] Albumin 4.5 3.5 - 5.0 g/dL [facility] Alk phos 64 40 - 130 Units/L [facility] ALT 63(H) 7 - 55 Units/L [facility] AST 42 10 - 50 Units/L [facility] Blood 01/13/2025 8:59 AM CDT 01/13/2025 9:02 AM CDT us Ray Murphy MD LAB BLOOD ORDERABLES Final Resul t [facility] [address] [facility] Department [place] [address] * (ABNORMAL) Urinalysis reflex to microscopic and culture Urine (01/06/2025 12:40 AM CDT) Color, ur Yellow Yellow Clarity, ur Clear Clear [facility] A ([place]) Specific gravity, ur 1.023 1.003 - 1.030 [facility] ([place]) pH, urine 5.5 [facility] ([place]) Comment: Interpretive Data U rine pH is affected by diet, medications, systemic acid-base disturbances, and renal tubular function. pH may affect urinary stone formation. For example, urine pH below 6.0 may help reduce the tendency for calcium phosphate stones and pH greater than 6.0 may reduce the tendency for uric acid stone formation. Source: [facility] Current Interpretive Data was last [...] DERABLES Final Result [facility] ([place]) 1 [facility] Department [place] [address] * (ABNORMAL) Drugs of Abuse Screen, Urine [...] 2023. Oxycodone, ur Not Detected CutOff 100ng/mL [facility] ([place]) Comment: Interpretive Data - Oxycodone: Samples containing greater than 100 ng/mL oxycodone or other cross-reacting compounds are reported as positive. False positive and false negative results are possible. Confirmatory testing required for definitive results. Current Interpretive Data was last reviewed 2023. Phencyclidine, ur Not Detected CutOff 25 ng/mL [facility] ([place]) Comment: Interpretive Data - Phencyclidine: Samples containing [...] 01/06/2025 12:58 AM CDT Narrative [facility] ([place]) - 01/06/2025 1:24 AM CDT Drug of Abuse screening is performed by immunoassay for medical purposes only. This is not to be used for Pain Management purposes. us Jose Sullivan MD LAB URINE ORDERABLES Final Re sult [facility] ([place]) 1 [facility] Department [place] [address] * (ABNORMAL) Urinalysis, microscopic only (01/06/2025 12:40 AM CDT) WBC, ur 11-20(A) 0 - 5 /HPF RBC, ur 6-10(A) 0 - 2 /HPF [facility] ([place]) Epithelial cells, squamous, ur 1-5 0 - 5 /HPF [facility] ([place]) Mucous, ur Present(A) [facility] Mix ([place]) Hyaline casts, ur 1-5 0 - 10 /LPF [facility] ([place]) Culture Reflex Comment Reflex to urine culture will be performed. [facility] ([place]) Urine 01/06/2025 12:4 0 AM CDT 01/06/2025 12:58 AM CDT us Jose Sullivan MD LAB URINE ORDERABLES Final Re sult Performing Organization Address [facility]/ZIP Co de Phone Number [facility] ([place]) [address] [place] [address] [place] [address] * Urine culture Urine (01/06/2025 12:40 AM CDT) Report Final Report: Less than 100,000 colonies/mL (clinically insignificant growth based on current clinical standards) Comment:Testing performed by : [facility], [address] [place]., [address] Organism (CLINICALLY INSIGNIFICANT GROWTH [facility] ([place]) Urine 01/06/2025 12:4 0 AM CDT 01/06/2025 6:07 AM CDT Narrative [facility] ([place]) - 01/07/2025 12:32 PM CDT Urine culture reflexed based upon urinalysis results. Testing performed by [facility] ([phone]) us Jose Sullivan MD LAB MICROBIOLOGY - GENERAL OR DERABLES Final Result Performing Organization Address [facility] Co de Phone Number [facility] ([place]) [address] [place] [address] Department [place] [address] * COVID-19 Coronavirus RNA Nasopharyngeal (01/06/2025 12:32 AM CDT) COVID-19 RNA Negative Negative Nasopharyngeal 01/06/2025 12 :32 AM CDT 01/06/2025 12:47 AM CDT Narrative [facility] ([place]) - 01/06/2025 1:25 AM CDT Is the patient experiencing any symptoms consistent with COVID (eg. Fever, cough, shortness of breath)?->No What is the reason for testing?->Screening for semi-private room placement Interpretive data: Testing performed by [facility]. This test is performed using the Cepheid Xpert Xpress CoV-2 plus assay. This is a real-time RT-PCR test intended for the qualitative detection of nucleic acid from the SARS-CoV-2. This assay has been cleared by the [place] Food and Drug administration. The performance characteristics have been verified by [facility]. Results must be considered in the clinical context, and a negative result does not rule out infection. Interpretive data last revised 2024. Interpretive data: Testing performed by [facility]. This test is performed using the StarCard Xpert Xpress CoV-2 plus assay. This is a real-time RT-PCR test intended for the qualitative detection of nucleic acid from the SARS-CoV-2. This assay has been cleared by the [facility] Food and Drug administration. The performance characteristics have been verified by [facility]. Results must be considered in the clinical context, and a negative result does not rule out infection. Interpretive data last revised 2024. Jose Sullivan MD LAB MICROBIOLOGY - GENERAL OR DERABLES Final Result [facility] [place] [address] [facility] Department [place] [address] * eGFR (01/06/2025 12:32 AM CDT) eGFR [...] Re sult [facility] ([place]) 1 [facility] Department [place] [address] * Differential, auto (01/06/2025 12:32 AM CDT) Neutrophil abs 5.57 1.50 - 6.50 K/cumm Imm gran abs 0.04 0.00 - 0.10 K/cumm [facility] ([place]) Lymphocyte abs 1.68 0.80 - 3.30 K/cumm [facility] ([place]) Monocyte abs 0.41 0.20 - 0.80 K/cumm [facility] ([place]) Eosinophil abs 0.13 0.00 - 0.50 K/cumm [facility] ([place]) Basophil abs 0.03 0.00 - 0.10 K/cumm [facility] ([place]) Neutrophil pct 70.8 % [facility] ([place]) Comment: Interpretive Data Percent cell count reference ranges are not reported, since discordance with absolute values may lead to misinterpretation of CBC data. Current Interpretive Data was last revised on 2017. Imm gran pct 0.5 % [facility] ([place]) Comment: Interpretive Data Percent cell count reference [...] ORDERABLES Final Re sult Performing Organization Address City/[facility]/ZIP Co de Phone Number [facility] ([place]) 1 [facility] [place] [employer] [place] [address] * Thyroid Function [place] (01/06/2025 12:32 AM CDT) TSH 1.00 0.30 - 4.20 mcIUnit/mL Blood 01/06/2025 12:3 2 AM CDT 01/06/2025 12:47 AM CDT us Jose Sullivan MD LAB BLOOD ORDERABLES Final Re sult Performing Organization Address City/[facility]/ZIP Co de Phone Number [facility] ([place]) 1 [facility] [place] [employer] [place] [address] * CBC with auto differential (01/06/2025 12:32 AM CDT) WBC 7.86 3.80 - 9.90 K/cumm Hgb 13.4 13.0 - 17.5 g/dL [facility] ([place]) Hct 41.2 38.9 - 50.3 % [facility] ([place]) Plt 259 150 - 400 K/cumm [facility] ([place]) MPV 10.2 9.1 - 12.3 fL [facility] ([place]) RBC 4.65 4.30 - 5.80 M/cumm [facility] ([place]) MCV 88.6 81.3 - 96.4 fL [facility] ([place]) MCH 28.8 27.1 - 33.3 pg [facility] ([place]) MCHC 32.5 32.3 - 35.7 g/dL [facility] ([place]) RDW CV 13.5 11.1 - 14.9 % [facility] ([place]) RDW SD 43.3 35.7 - 48.1 fL [facility] ([place]) NRBC abs 0.00 0.00 - 0.01 K/cumm [facility] ([place]) Blood Venous blood specimen / Unknown 01/06/2025 12:32 AM CDT 01/06/2025 12:47 AM CDT us Jose Sullivan MD LAB BLOOD ORDERABLES Final Re sult Performing Organization Address City/[facility]/ZIP Co de Phone Number [facility] ([place]) 1 [facility] [place] [address] * Ethanol (01/06/2025 12:32 AM CDT) Ethanol <10 <=10 mg/dL Comment: Interpretive Data Legal limit of intoxication > or = 80 mg/dL Levels > or = 400 mg/dL are potentially TOXIC. Current interpretive data was last revised on 2018. Blood 01/06/2025 12:3 2 AM CDT 01/06/2025 12:47 AM CDT us Jose Sullivan MD LAB BLOOD ORDERABLES Final Re sult [facility] ([place]) 1 [facility] [place] [address] * (ABNORMAL) Comprehensive metabolic panel (01/06/2025 12:32 AM CDT) Sodium 135 135 - 145 mmol/L Potassium, pl 4.7 3.3 - 4.9 mmol/L [facility] ([place]) Comment:Moderately Hemolyzed Specimen. Results may [...] Bilirubin, total 0.2 0.1 - 1.2 mg/dL [facility] ([place]) Protein, pl 7.4 6.5 - 8.5 g/dL [facility] ([place]) Albumin 4.1 3.5 - 5.0 g/dL [facility] ([place]) Alk phos 63 40 - 130 Units/L [facility] ([place]) ALT 33 7 - 55 Units/L [facility] ([place]) Comment: Hemolysis present. Results may be affected. Moderately Hemolyzed Specimen AST 34 10 - 50 Units/L [facility] ([place]) Comment: Hemolysis present. Results may be affected. Moderately Hemolyzed Specimen Blood 01/06/2025 12:3 2 AM CDT 01/06/2025 12:47 AM CDT us Jose Sullivan MD LAB BLOOD ORDERABLES Final Re sult [facility] ([place]) 1 [facility] Department [place] [address] * eGFR (01/01/2025 10:28 PM CDT) eGFR [...] LAB BLOOD ORDERABLES Final R esult [facility] Department [place] [address] * (ABNORMAL) Differential, auto (01/01/2025 10:28 PM CDT) Pathologist [facility] Neutrophil abs 4.69 1.50 - 6.50 K/cumm Imm gran abs 0.02 0.00 - 0.10 K/cumm [facility] Lymphocyte abs 1.78 0.80 - 3.30 K/cumm [facility] Monocyte abs 0.87(H) 0.20 - 0.80 K/cumm [facility] Eosinophil abs 0.17 0.00 - 0.50 K/cumm [facility] Basophil abs 0.03 0.00 - 0.10 K/cumm [facility] Neutrophil pct 62.1 % [facility] Comment: Interpretive Data Percent cell count reference ranges are not reported, since discordance with absolute values may lead to misinterpretation of CBC data. Current Interpretive Data was last revised on 2017. Imm gran pct 0.3 % [facility] Comment: Interpretive Data Percent cell count reference ranges are not reported, since discordance with absolute values may lead to misinterpretation of CBC data. Current Interpretive Data was last revised on 2017. Lymphocyte pct 23.5 % [facility] Comment: Interpretive Data Percent cell count reference ranges are not reported, since discordance with absolute values may lead to misinterpretation of CBC data. Current Interpretive Data was last revised on 2017. Monocyte pct 11.5 % [facility] Comment: Interpretive Data Percent cell count reference ranges are not reported, since discordance with absolute values may lead to misinterpretation of CBC data. Current Interpretive Data was last revised on 2017. Eosinophil pct 2.2 % [facility] Comment: Interpretive Data Percent cell count reference ranges are not reported, since discordance with absolute values may lead to misinterpretation of CBC data. Current Interpretive Data was last revised on 2017. Basophil pct 0.4 % [facility] Comment: Interpretive Data Percent cell count reference ranges are not reported, since discordance with absolute values may lead to misinterpretation of CBC data. Current Interpretive Data was last revised on 2017. Blood 01/01/2025 10:2 8 PM CDT 01/01/2025 10:35 PM CDT us Irina Yeager MD LAB BLOOD ORDERABLES Final R esult [facility] One [facility] Department [place] [address] * (ABNORMAL) Urinalysis reflex to microscopic (01/01/2025 10:28 PM CDT) Color, ur Yellow Yellow Clarity, ur Clear Clear [facility] Specific gravity, ur 1.027 1.003 - 1.030 [facility] pH, urine 6.0 [facility] Comment: Interpretive Data U rine pH is affected by diet, medications, systemic acid-base disturbances, and renal tubular function. pH may affect urinary stone formation. For example, urine pH below 6.0 may help reduce the tendency for calcium phosphate stones and pH greater than 6.0 may reduce the tendency for uric acid stone formation. Source: [facility] Current Interpretive Data was last revised on 2017 Protein, ur ql 1+(A) Negative [facility] Glucose, ur ql Negative Negative [facility] Ketones, ur Negative Negative [facility] Bilirubin, ur Negative Negative [facility] Blood, ur 2+(A) Negative [facility] Urobilinogen, ur <2.0 <2.0 mg/dL [facility] Nitrite, ur Negative Negative [facility] Leukocyte esterase, ur Negative Negative [facility] UA reflex comment Reflex to microscopic UA will be performed. [facility] Urine 01/01/2025 10:2 8 PM CDT 01/01/2025 10:33 PM CDT us Irina Yeager MD LAB URINE ORDERABLES Final R esult [facility] One [facility] Department of Laboratories [place] [id number] * CBC with auto differential (01/01/2025 10:28 PM CDT) WBC 7.56 3.80 - 9.90 K/cumm Hgb 14.8 13.0 - 17.5 g/dL [facility] Hct 45.4 38.9 - 50.3 % [facility] Plt 308 150 - 400 K/cumm [facility] MPV 10.1 9.1 - 12.3 fL [facility] RBC 5.26 4.30 - 5.80 M/cumm [facility] MCV 86.3 81.3 - 96.4 fL [facility] MCH 28.1 27.1 - 33.3 pg [facility] MCHC 32.6 32.3 - 35.7 g/dL [facility] RDW CV 13.4 11.1 - 14.9 % [facility] RDW SD 42.3 35.7 - 48.1 fL [facility] NRBC abs 0.00 0.00 - 0.01 K/cumm [facility] Blood Venous blood specimen / Unknown 01/01/2025 10:28 PM CDT 01/01/2025 10:35 PM CDT Irina Yeager MD LAB BLOOD ORDERABLES Final R esult Performing Organization Address City/[facility]/ZIP Co de Phone Number [facility] [place] [address] * (ABNORMAL) Urinalysis, microscopic only (01/01/2025 10:28 PM CDT) WBC, ur 0-5 0 - 5 /HPF RBC, ur >50(A) 0 - 2 /HPF [facility] Mucous, ur Present(A) [facility] Urine 01/01/2025 10:2 8 PM CDT 01/01/2025 10:33 PM CDT Irina Yeager MD LAB URINE ORDERABLES Final R esult Performing Organization Address City/[facility]/ZIP Co de Phone Number [facility] [place] [place] [address] * Lipase (01/01/2025 10:28 PM CDT) Lipase 26 10 - 99 Units/L Blood Venous blood specimen / Unknown 01/01/2025 10:28 PM CDT 01/01/2025 10:34 PM CDT Irina Yeager MD LAB BLOOD ORDERABLES Final R esult [facility] [place] [address] * (ABNORMAL) Creatine kinase (CK), total (01/01/2025 10:28 PM CDT) CK 632(H) 40 - 300 Units/L Blood 01/01/2025 10:2 8 PM CDT 01/01/2025 10:34 PM CDT Irina Yeager MD LAB BLOOD ORDERABLES Final R esult Performing Organization Address [facility] de Phone Number [facility] [place] [address] * Acetaminophen level (01/01/2025 10:28 PM CDT) [...] after ingestion Consult toxicology or poison control ([phone]) for unknown ingestion time. Current interpretive data was last revised 2023. Blood 01/01/2025 10:2 8 PM CDT 01/01/2025 10:34 PM CDT Maye Pradhan NP LAB BLOOD ORDERABLES Final Result Performing Organization Address [facility] de Phone Number [facility] Department [place] [address] * Salicylate level (01/01/2025 10:28 PM CDT) Salicylate <9.0 <=9.0 mg/dL Comment: Interpretive Data Toxic: 30 mg/dL or greater. Current interpretive data was last revised 2023. Blood 01/01/2025 10:2 8 PM CDT 01/01/2025 10:34 PM CDT Maye Pradhan SOLDERER LAB BLOOD ORDERABLES Final Result Performing Organization Address [facility] Co de Phone Number [facility] Department [place] [address] * (ABNORMAL) Valproic acid level, total (01/01/2025 [...] CDT 01/01/2025 10:34 PM CDT Maye Pradhan SOLDERER LAB BLOOD ORDERABLES Final Result Performing Organization Address [facility] de Phone Number [facility] Department [place] [address] * Comprehensive metabolic panel (01/01/2025 10:28 PM CDT) Pathologist [facility] Sodium 141 135 - 145 mmol/L Potassium, pl 4.0 3.3 - 4.9 mmol/L [facility] Comment:Hemolyzed; Potassium value may be falsely elevated by as much as 0.3-0.5 mmol/L. Suggest redraw and reanalysis. Chloride 105 97 - 110 mmol/L [facility] CO2 26 22 - 32 mmol/L [facility] Anion gap 10 2 - 15 mmol/L [facility] BUN 10 6 - 25 mg/dL [facility] Creatinine 1.24 0.80 - 1.30 mg/dL [facility] Glucose 123 70 - 199 mg/dL [facility] Comment: Interpretive Data Fasting glucose >/= [...] 2022. Calcium 9.8 8.5 - 10.3 mg/dL [facility] Bilirubin, total 0.2 0.1 - 1.2 mg/dL [facility] Protein, pl 8.1 6.5 - 8.5 g/dL [facility] Albumin 4.3 3.5 - 5.0 g/dL [facility] Alk phos 78 40 - 130 Units/L [facility] ALT 40 7 - 55 Units/L [facility] AST 47 10 - 50 Units/L [facility] Comment:Hemolyzed; result ma y be falsely elevated Blood 01/01/2025 10:2 8 PM CDT 01/01/2025 10:34 PM CDT us Irina Yeager MD LAB BLOOD ORDERABLES Final R esult [facility] Department [place] [address] * ANUSHKA screen w/rflx FLIP+dsDNA (12/30/2024 11:56 [...] last revised on 2020. Testing performed by: [facility], [address], [place]., [address] Blood 12/30/2024 11:5 6 AM CDT 12/30/2024 3:00 PM CDT Navarro Zuleta Jr., MD LAB BLOOD ORDERABLE S Final Result Performing Organization Address [facility] Co de Phone Number [facility]LLA ARREOLA ([place]) 1 [facility] [place] [address] * HIV 1/2 Antibody plus p24 Antigen Blood (12/30/2024 11:56 AM CDT) HIV 1/2 ab + p24 ag Nonreactive Nonreactive Comment: Nonreactive for HIV-1 antigen and HIV-1/HIV-2 antibodies. No laboratory evidence of HIV infection. If acute HIV infection is suspected, consider testing for HIV-1 RNA. Testing performed by: [address], [address] Blood 12/30/2024 11:5 6 AM CDT 12/30/2024 1:50 PM CDT us Navarro Zuleta Jr., MD LAB MICROBIOLOGY - GENERAL ORDERABLES Final Result Performing Organization Address [facility] de Phone Number [facility] ([place]) 1 [facility] [place] [address] * RPR Blood (12/30/2024 11:56 AM CDT) RPR Nonreactive Nonreactive Comment:Testing performed by : [facility], [address] [place] [address]., [address] Blood 12/30/2024 11:5 6 AM CDT 12/30/2024 1:50 PM CDT Navarro Zuleta Jr., MD LAB MICROBIOLOGY - GENERAL ORDERABLES Final Result Performing Organization Address [facility]/ZIP Co de Phone Number [facility] ([place]) 1 [facility] [place] [address] * Troponin T high-sensitivity 6-hour (12/30/2024 5:09 [...] 5:09 AM CDT 12/30/2024 5:12 AM CDT Larissa Medellin MD LAB BLOOD ORDERABLES Vickie l Result [facility] ([place]) 1 [facility] Department [place] [address] * eGFR (12/30/2024 5:09 AM CDT) eGFR [...] BLOOD ORDERABLES Fin al Result [facility] ([place]) 1 [facility] Department of Laboratories [place], [place] [id number] * (ABNORMAL) Differential, auto (12/30/2024 5:09 AM CDT) Neutrophil abs 3.85 1.50 - 6.50 K/cumm Imm gran abs 0.03 0.00 - 0.10 K/cumm [facility] ([place]) Lymphocyte abs 1.68 0.80 - 3.30 K/cumm [facility] ([place]) Monocyte abs 0.94(H) 0.20 - 0.80 K/cumm [facility] ([place]) Eosinophil abs 0.14 0.00 - 0.50 K/cumm [facility] ([place]) Basophil abs 0.02 0.00 - 0.10 K/cumm [facility] ([place]) Neutrophil pct 57.8 % [facility] ([place]) Comment: Interpretive Data Percent cell count reference ranges are not reported, since discordance with absolute values may lead to misinterpretation of CBC data. Current Interpretive Data was last revised on 2017. Imm gran pct 0.5 % [facility] ([place]) Comment: Interpretive Data Percent cell count reference [...] 2017. Monocyte pct 14.1 % [facility] ([place]) Comment: Interpretive Data Percent cell count reference ranges are not reported, since discordance with absolute values may lead to misinterpretation of CBC data. Current Interpretive Data was last revised on 2017. Eosinophil pct 2.1 % [facility] ([place]) Comment: Interpretive Data Percent cell count reference [...] AM CDT 12/30/2024 5:12 AM CDT Kelly CamarenaGolden Reviews LAB BLOOD ORDERABLES Fin al Result [facility] ([place]) 1 [facility] [place] [place] [address] * (ABNORMAL) CBC with auto differential (12/30/2024 [...] RDW SD 45.9 35.7 - 48.1 fL [facility] ([place]) NRBC abs 0.00 0.00 - 0.01 K/cumm [facility] ([place]) Blood 12/30/2024 5:09 AM CDT 12/30/2024 5:12 AM CDT Kelly Camarenaick DO LAB BLOOD ORDERABLES Fin al Result [facility] ([place]) 1 [facility] [place] [address] * Phosphorus (12/30/2024 5:09 AM CDT) Pathologist [facility] Phosphorus, pl 3.8 2.3 - 4.5 mg/dL Blood 12/30/2024 5:09 AM CDT 12/30/2024 5:12 AM CDT Kelly CamarenaMaxta DO LAB BLOOD ORDERABLES Fin al Result Performing Organization Address City/[facility] Co de Phone Number [facility] ([place]) 1 [facility] [place] [place] [address] * Magnesium (12/30/2024 5:09 AM CDT) Pathologist [facility] Magnesium 1.8 1.4 - 2.5 mg/dL Blood 12/30/2024 5:09 AM CDT 12/30/2024 5:12 AM CDT Kelly CamarenaGolden Reviews LAB BLOOD ORDERABLES Fin al Result Performing Organization Address City/[facility] Co de Phone Number [facility] AR[facility]OLA ([place]) 1 [facility] [place] [address] * Comprehensive metabolic panel (12/30/2024 5:09 AM CDT) Pathologist [facility] Sodium 137 135 - 145 mmol/L Potassium, pl 4.8 3.3 - 4.9 mmol/L [facility] ([place]) Comment:Slightly Hemolyzed S pecimen. Results may be affected. Chloride 105 97 - 110 mmol/L [facility] ([place]) CO2 22 22 - 32 mmol/L [facility] ([place] Anion gap 10 2 - 15 mmol/L [facility] ([place]) BUN 7 6 - 25 mg/dL [facility] ([place]) Creatinine 1.00 0.80 - 1.30 [...] Fin al Result [facility] ([place]) 1 [facility] Department [place] [address] * Erythrocyte sedimentation rate (12/30/2024 5:07 AM CDT) Erythrocyte sedimentation rate 11 1 - 15 mm/hr Blood 12/30/2024 5:07 AM CDT 12/30/2024 6:46 AM CDT us Navarro Zuleta Jr., MD LAB BLOOD ORDERABLE S Final Result [facility] AR[facility] ([place]) 1 [place] [address] * CRP (acute phase) (12/30/2024 5:07 AM CDT) CRP <3.0 <=10.0 mg/L Blood 12/30/2024 5:07 AM CDT 12/30/2024 6:48 AM CDT us Navraro Zuleta Jr., MD LAB BLOOD ORDERABLE S Final Result Performing Organization Address [facility] Co de Phone Number [facility] ([place]) [address] [place] [address] * (ABNORMAL) Troponin T high-sensitivity 2-hour (12/30/2024 12:43 AM CDT) Pathologist [facility] Trop T hs 26(H) <=22 ng/L Comment: Interpretive Data For further hscTnT resources including the diagnostic algorithm and an aid in interpretation, copy and paste this link: https://nrl.testcatalog.org/show/hsTrop Current Interpretive Data last revised 2020. Trop T hs delta -3 ng/L [facility] ([place]) Trop T hs interp Insignificant [facility] ([place]) Blood 12/30/2024 12:4 3 AM CDT 12/30/2024 12:45 AM CDT us Larissa Medellin MD LAB BLOOD ORDERABLES Vickie l Result [facility] ([place]) 1 [facility] [place] [address] * Lipase (12/30/2024 12:43 AM CDT) Pathologist [facility] Lipase 25 10 - 99 Units/L Blood 12/30/2024 12:4 3 AM CDT 12/30/2024 1:46 AM CDT Kelly Knight DO LAB BLOOD ORDERABLES Fin al Result [facility] ([place]) 1 [facility] Department [place] [address] * ECG 12 lead (12/30/2024 12:32 AM CDT) 12/30/2024 12:3 2 AM CDT Narrative [facility] - 12/30/2024 7:25 AM CDT Vent Rate: 104 bpm RR Interval: 575 msec [place] Interval: 159 msec QRS Duration: 109 msec QT Interval: 330 msec QTC Interval: 390 msec P-R-T [place]: 56 - 85 - -50 degrees IMPRESSION: SINUS TACHYCARDIA LEFT VENTRICULAR HYPERTROPHY AND ST-T CHANGE [VOLTAGE CRITERIA PLUS ST/T ABNORMALITY] ST ELEVATION, CONSIDER ANTERIOR INJURY [MARKED ST ELEVATION W/O NORMALLY INFLECTED T-WAVE IN V2-V5] ACUTE SC NO CHANGE FROM PREVIOUS TRACING NOTED Electronically Signed By: Skyler Waite MD Jose Sullivan MD ECG ORDERABLES Final Result Performing Organization Address City/[facility]/ZIP Co de Phone Number [facility] * Urinalysis reflex to microscopic and culture Urine, bladder (12/30/2024 12:06 AM CDT) Color, ur Yellow Yellow Clarity, ur Clear Clear [facility] A ([place]) Specific gravity, ur 1.020 1.003 - 1.030 [facility] ([place]) pH, urine 7.5 [facility] ([place]) Comment: Interpretive Data U rine pH is affected by diet, medications, systemic acid-base disturbances, and renal tubular function. pH may affect urinary stone formation. For example, urine pH below 6.0 may help reduce the tendency for calcium phosphate stones and pH greater than 6.0 may reduce the tendency for uric acid stone formation. Source: [facility] [employer] Current Interpretive Data was last revised on 2017 Protein, ur ql Negative Negative [facility] ([place]) Glucose, ur ql Negative Negative [facility]NE R [...] DERABLES Final Result [facility] ([place]) 1 [facility] Department [place] [address] * (ABNORMAL) Drugs of Abuse Screen, Urine [...] 2023. Oxycodone, ur Not Detected CutOff 100ng/mL [facility] ([place]) Comment: Interpretive Data - Oxycodone: Samples containing greater than 100 ng/mL oxycodone or other cross-reacting compounds are reported as positive. False positive and false negative results are possible. Confirmatory testing required for definitive results. Current Interpretive Data was last reviewed 2023. Phencyclidine, ur Not Detected CutOff 25 ng/mL [facility] ([place]) Comment: Interpretive Data - Phencyclidine: Samples containing greater than 25 ng/mL phencyclidine or other cross-reacting compounds are reported as positive. False positive and false negative results are possible. Confirmatory testing required for definitive results. Current Interpretive Data was last reviewed 2023. Urine Creatinine 155 mg/dL [facility]ON [facility] ([place]) Comment: Interpretive Data Urine Creatinine: < 10 mg/dL is extremely dilute = or > 10 but < 20 mg/dL is dilute = or > 20 mg/dL is normal Current Interpretive Data was last revised on 2017. Urine 12/30/2024 12:0 6 AM CDT 12/30/2024 12:11 AM CDT Narrative [facility] ([place]) - 12/30/2024 12:55 AM CDT Drug of Abuse screening is performed by immunoassay for medical purposes only. This is not to be used for Pain Management purposes. Jose Sullivan MD LAB URINE ORDERABLES Final Re sult Performing Organization Address City/State/[facility] Co de Phone Number [facility] AR[facility] ([place]) 1 [facility] Department of Laboratories [place] [id number] * ECG 12 lead (12/29/2024 11:58 PM CDT) 12/29/2024 11:5 8 PM CDT Narrative [facility] - 12/30/2024 7:27 AM CDT Vent Rate: 116 bpm RR Interval: 516 msec [place] Interval: 163 msec QRS Duration: 106 msec QT Interval: 321 msec QTC Interval: 390 msec P-R-T [place]: 64 - 85 - -64 degrees IMPRESSION: SINUS TACHYCARDIA LEFT VENTRICULAR HYPERTROPHY AND ST-T CHANGE [VOLTAGE CRITERIA PLUS ST/T ABNORMALITY] ST ELEVATION, CONSIDER ANTERIOR INJURY [MARKED ST ELEVATION W/O NORMALLY INFLECTED T-WAVE IN V2-V5] ACUTE SC Compared to prior EKG, heart rate has increased Electronically Signed By: Skyler Waite MD Jose Sullivan MD ECG ORDERABLES Final Result [facility] * CT Chest PE (CTA) W [...] Richi Farr M.D. KT: NANNETTE Report ID: [id number] Reading Location: [id number] Procedure Note Richi Farr MD - 12/30/2024 [...] Richi Farr M.D. KT: KT Report ID: [id number] Reading Location: [id number] us Jose Sullivan MD IMG CT PROCEDURES Final [...] Sam M.D. AR: JOHN PAUL Report ID: [id number] Reading Location: [id number] Procedure Note Jaskaran Sam MD - 12/29/2024 [...] Sam M.D. AR: JOHN PAUL Report ID: [id number] Reading Location: [place] [address] us Jose Sullivan MD IMG XR PROCEDURES [...] ORDERABLES Final Re sult Performing Organization Address City/[facility]/ZIP Co de Phone Number [facility] AR[facility] ([place]) [address] [place] [address] [place] [address] * eGFR (12/29/2024 11:09 PM CDT) eGFR [...] BLOOD ORDERABLES Vickie l Result [facility]A AR[facility]OLA ([place]) 1 [facility] [place] [address] * Differential, auto (12/29/2024 11:09 PM CDT) [...] BLOOD ORDERABLES Vickie l Result [facility] AR[facility] ([place]) 1 [facility] [employer] [place] [id number] * (ABNORMAL) Thyroid Function [place] (12/29/2024 11:09 PM CDT) TSH 0.17(L) 0.30 - 4.20 mcIUnit/mL Blood 12/29/2024 11:0 9 PM CDT 12/30/2024 9:14 AM CDT us Jose Sullivan MD LAB BLOOD ORDERABLES Edited R esult - Final [facility] ([place]) 1 [facility] [place] [place] [address] * CBC with auto differential (12/29/2024 11:09 PM CDT) Pathologist [facility] WBC 7.55 3.80 - 9.90 K/cumm Hgb 13.8 13.0 - 17.5 g/dL [facility] ([place]) Hct 42.1 38.9 - 50.3 % [facility] [...] Re sult Performing Organization Address [facility]/State/ZIP Co de Phone Number [facility] ARREOLA ([place]) 1 [facility] [place] [place] [address] * T3, free (12/29/2024 11:09 PM CDT) Free T3 3.9 2.0 - 4.4 pg/mL Comment:Testing performed by : [facility], [address] [place] [address], [place]., [address] Blood 12/29/2024 11:0 9 PM CDT 12/30/2024 9:14 AM CDT Narrative [facility] ([place]) - 12/30/2024 9:57 AM CDT This test was reflexed from a T4 result. us Jose Sullivan MD LAB BLOOD ORDERABLES Final Re sult Performing Organization Address [facility] Co de Phone Number [facility] ([place]) [address] [place] [address] [place] [address] * T4, free (12/29/2024 11:09 PM CDT) Free T4 1.07 0.90 - 1.70 ng/dL Blood 12/29/2024 11:0 9 PM CDT 12/30/2024 9:14 AM CDT Narrative [facility] ([place]) - 12/30/2024 9:57 AM CDT This test was reflexed from a TSH result. Jose Sullivan MD LAB BLOOD ORDERABLES Edited R esult - Final Performing Organization Address [facility]/ZIP Co de Phone Number [facility]A ARREOLA ([place]) 1 [facility] [place] [address] * Magnesium (12/29/2024 11:09 PM CDT) Magnesium 1.6 1.4 - 2.5 mg/dL Blood 12/29/2024 11:0 9 PM CDT 12/29/2024 11:15 PM CDT us Jose Sullivan MD LAB BLOOD ORDERABLES Final Re sult [facility] ([place]) 1 [facility] Department [place] [address] * Comprehensive metabolic panel (12/29/2024 11:09 PM CDT) Sodium 137 135 - 145 mmol/L Potassium, pl 4.2 3.3 - 4.9 mmol/L [facility] ([place] Chloride 99 97 - 110 mmol/L [facility] ([place]) CO2 24 22 - 32 mmol/L [facility] ([place]) Anion gap 14 2 - 15 mmol/L [facility] ([place]) BUN 8 6 - 25 mg/dL [facility] ([place]) Creatinine 1.04 0.80 - 1.30 mg/dL [facility] ([place]) Glucose 126 70 - 199 mg/dL [facility] ([place]) Comment: Interpretive Data Fasting glucose [...] Final Re sult [facility] ([place]) 1 [facility] Department [place] [address] * (ABNORMAL) Urinalysis reflex to microscopic and culture Urine (12/20/2024 5:19 PM CDT) Color, ur Yellow Yellow Comment:Testing performed by : [address] [address] Clarity, ur Clear Clear [facility]A Comment:Testing performed by : [address] [address] Specific gravity, ur 1.032(H) 1.003 - 1.030 [facility] Comment:Testing performed by : [address] [address] pH, urine 6.5 [facility] Comment: Interpretive Data U rine pH is affected by diet, medications, systemic acid-base disturbances, and renal tubular function. pH may affect urinary stone formation. For example, urine pH below 6.0 may help reduce the tendency for calcium phosphate stones and pH greater than 6.0 may reduce the tendency for uric acid stone formation. Source: [facility] [employer] Current Interpretive Data was last revised on 2017 Testing performed by: [address] [address] Protein, ur ql Trace(A) Negative [facility] Comment:Testing performed by : [address] [address] Glucose, ur ql Negative Negative [facility] Comment:Testing performed by : [address] [address] Ketones, ur Trace(A) Negative [facility] Comment:Testing performed by : [facility], [address] [place] [address], [place]., [address] Bilirubin, ur Negative Negative [facility] Comment:Testing performed by : [address], [place]., [address] Blood, ur 1+(A) Negative [facility] Comment:Testing performed by : [address], [place]., [address] Urobilinogen, ur 2.0(A) <2.0 mg/dL [facility] Comment:Testing performed by : [address], [place]., [address] Nitrite, ur Negative Negative [facility] Comment:Testing performed by : [address], [place]., [address] Leukocyte esterase, ur Negative Negative [facility] Comment:Testing performed by : [address], [place]., [address] UA reflex comment Reflex to microscopic UA will be performed. [facility] Comment:Testing performed by : [address], [place]., [address] Urine 12/20/2024 5:19 PM CDT 12/20/2024 5:25 PM CDT us Renetta Echols MD LAB MICROBIOLOGY - GENER AL ORDERABLES Final Result [facility] [address] [facility] Department of Laboratories [place], [place] [id number] * (ABNORMAL) Drugs of Abuse Screen, Urine [...] was last reviewed 2023. Testing performed by: [address], [place]., [address] Barbiturates, ur Not Detected CutOff 200ng/mL [facility] Comment: Interpretive Data - Barbiturates: Samples containing greater than 200 ng/mL secobarbital or other cross-reacting barbiturate compounds are reported as positive. False positive and false negative results are possible. Confirmatory testing required for definitive results. Current Interpretive Data was last reviewed 2023. Testing performed by: [address] [address] Benzodiazepines, ur Not Detected CutOff 100ng/mL [facility] Comment: Interpretive Data - Benzodiazepines: Samples containing greater than 100 ng/mL nordiazepam or other cross-reacting compounds are reported as positive. False positive and false negative results are possible. Confirmatory testing required for definitive results. Current Interpretive Data was last reviewed 2023. Testing performed by: [address] [address] Cannabinoids, ur Screen Positive, presumptive (A) CutOff 50 ng/mL [facility] Comment: Interpretive Data - Cannabinoids: Samples containing greater than 50 ng/mL delta-9 THC -COOH or other cross- reacting compounds are reported as positive. False positive and false negative results are possible. Confirmatory testing required for definitive results. Current Interpretive Data was last reviewed 2023. Testing performed by: [address] [address] Cocaine, ur Not Detected CutOff 150ng/mL [facility] Comment: Interpretive Data - Cocaine: Samples containing greater than 150 ng/mL benzoylecgonine or other cross- reacting compounds are reported as positive. False positive and false negative results are possible. Confirmatory testing required for definitive results. Current Interpretive Data was last reviewed 2023. Testing performed by: [address] [address] Fentanyl, Ur Not Detected Cutoff 1 ng/mL [facility] Comment: Interpretive Data - Fentanyl: Samples containing greater than 1 ng/mL fentanyl or other cross-reacting fentanyl compounds are reported as positive. False positive and false negative results are possible. Confirmatory testing required for definitive results. Current Interpretive Data was last reviewed 2023. Testing performed by: [address] [address] Methadone, ur Not Detected CutOff 300ng/mL [facility] Comment: Interpretive Data - Methadone: Samples containing greater than 300 ng/mL d,l-methadone or other cross-reacting compounds are reported as positive. False positive and false negative results are possible. Confirmatory testing required for definitive results. Current Interpretive Data was last reviewed 2023. Testing performed by: [address] [address] Opiates, ur Not Detected CutOff 300ng/mL [facility] Comment: Interpretive Data - Opiates: Samples containing greater than 300 ng/mL morphine or other cross-reacting compounds are reported as positive. False positive and false negative results are possible. Confirmatory testing required for definitive results. Current Interpretive Data was last reviewed 2023. Testing performed by: [address] [address] Oxycodone, ur Not Detected CutOff 100ng/mL [facility] Comment: Interpretive Data - Oxycodone: Samples containing greater than 100 ng/mL oxycodone or other cross-reacting compounds are reported as positive. False positive and false negative results are possible. Confirmatory testing required for definitive results. Current Interpretive Data was last reviewed 2023. Testing performed by: [address] [address] Phencyclidine, ur Not Detected CutOff 25 ng/mL [facility] Comment: Interpretive Data - Phencyclidine: Samples containing greater than 25 ng/mL phencyclidine or other cross-reacting compounds are reported as positive. False positive and false negative results are possible. Confirmatory testing required for definitive results. Current Interpretive Data was last reviewed 2023. Testing performed by: [address] [address] Urine Creatinine 390 mg/dL [facility] Comment: Interpretive Data Urine Creatinine: < 10 mg/dL is extremely dilute = or > 10 but < 20 mg/dL is dilute = or > 20 mg/dL is normal Current Interpretive Data was last revised on 2017. Testing performed by: [address] [address] Urine 12/20/2024 5:19 PM CDT 12/20/2024 5:25 PM CDT Narrative [facility] - 12/20/2024 5:57 PM CDT Drug of Abuse screening is performed by immunoassay for medical purposes only. This is not to be used for Pain Management purposes. Renetta Echols MD LAB URINE ORDERABLES Fin al Result Performing Organization Address [facility] de Phone Number [place] [id number] [facility] [place] [place] [address] * (ABNORMAL) Urinalysis, microscopic only (12/20/2024 5:19 PM CDT) WBC, ur 0-5 0 - 5 /HPF Comment:Testing performed by : [address] [address] RBC, ur 11-20(A) 0 - 2 /HPF [facility] Comment:Testing performed by : [address] [address] Epithelial cells, squamous, ur 6-10(A) 0 - 5 /HPF [facility] Comment:Testing performed by : [address] [address] Mucous, ur Present(A) [facility] Comment:Testing performed by : [address] [address] Sperm, ur Present(A) [facility] Comment:Testing performed by : [address] [address] Culture Reflex Comment Reflex conditions for urine culture (WBC >10) not met. [facility] Comment:Testing performed by : [address] [address] Urine 12/20/2024 5:19 PM CDT 12/20/2024 5:25 PM CDT Renetta Echols MD LAB URINE ORDERABLES Fin al Result Performing Organization Address [facility] Co de Phone Number [facility] [address] [facility] [place] [address] * COVID-19 Coronavirus RNA Nasopharyngeal (12/20/2024 5:06 PM CDT) Pathologist [facility] COVID-19 RNA Negative Negative Comment:Testing performed by : [facility], [address] [place] [address], [place]., [address] Nasopharyngeal 12/20/2024 5: 06 PM CDT 12/20/2024 5:22 PM CDT Narrative [facility] - 12/20/2024 5:55 PM CDT Is the patient experiencing any symptoms consistent with COVID (eg. Fever, cough, shortness of breath)?->No What is the reason for testing?->Screening prior to Behavioral health admission Interpretive data Testing performed by [facility]. This test is performed using the [employer] Xpert Xpress CoV-2 plus assay. This is a real-time RT-PCR test intended for the qualitative detection of nucleic acid from the SARS-CoV-2. This assay has been cleared by the [place] Food and Drug administration. The performance characteristics have been verified by the [facility]. Results must be considered in the clinical context, and a negative result does not rule out infection. Interpretive data last revised 2024. Interpretive data Testing performed by [facility]. This test is performed using the [employer] Xpert Xpress CoV-2 plus assay. This is a real-time RT-PCR test intended for the qualitative detection of nucleic acid from the SARS-CoV-2. This assay has been cleared by the [place] Food and Drug administration. The performance characteristics have been verified by the [facility]. Results must be considered in the clinical context, and a negative result does not rule out infection. Interpretive data last revised 2024. us Renetta Echols MD LAB MICROBIOLOGY - GENER AL ORDERABLES Final Result [facility] [address] [facility] Department [place] [address] * eGFR (12/20/2024 5:06 PM CDT) Pathologist [facility] eGFR >90 >=60 mL/min/1. 73 m2 [...] was last reviewed 2021. Testing performed by: [address] [address] Blood 12/20/2024 5:06 PM CDT 12/20/2024 5:25 PM CDT us Renetta Echols MD LAB BLOOD ORDERABLES Fin al Result [facility] [address] [facility] Department [place] [address] * Differential, auto (12/20/2024 5:06 PM CDT) Neutrophil abs 3.48 1.50 - 6.50 K/cumm Comment:Testing performed by : [address] [address] Imm gran abs 0.02 0.00 - 0.10 K/cumm [facility] Comment:Testing performed by : [address] [address] Lymphocyte abs 1.90 0.80 - 3.30 K/cumm [facility] Comment:Testing performed by : [address] [address] Monocyte abs 0.60 0.20 - 0.80 K/cumm [facility] Comment:Testing performed by : [address] [address] Eosinophil abs 0.17 0.00 - 0.50 K/cumm [facility] Comment:Testing performed by : [address] [address] Basophil abs 0.03 0.00 - 0.10 K/cumm [facility] Comment:Testing performed by : [address] [address] Neutrophil pct 56.2 % [facility] Comment: Interpretive Data Percent cell count reference ranges are not reported, since discordance with absolute values may lead to misinterpretation of CBC data. Current Interpretive Data was last revised on 2017. Testing performed by: [address] [address] Imm gran pct 0.3 % [facility] Comment: Interpretive Data Percent cell count reference ranges are not reported, since discordance with absolute values may lead to misinterpretation of CBC data. Current Interpretive Data was last revised on 2017. Testing performed by: [address] [address] Lymphocyte pct 30.6 % [facility] Comment: Interpretive Data Percent cell count reference ranges are not reported, since discordance with absolute values may lead to misinterpretation of CBC data. Current Interpretive Data was last revised on 2017. Testing performed by: [address] [address] Monocyte pct 9.7 % [facility] Comment: Interpretive Data Percent cell count reference ranges are not reported, since discordance with absolute values may lead to misinterpretation of CBC data. Current Interpretive Data was last revised on 2017. Testing performed by: [address] [address] Eosinophil pct 2.7 % [facility] Comment: Interpretive Data Percent cell count reference ranges are not reported, since discordance with absolute values may lead to misinterpretation of CBC data. Current Interpretive Data was last revised on 2017. Testing performed by: [address] [address] Basophil pct 0.5 % [facility] Comment: Interpretive Data Percent cell count reference ranges are not reported, since discordance with absolute values may lead to misinterpretation of CBC data. Current Interpretive Data was last revised on 2017. Testing performed by: [address] [address] Blood 12/20/2024 5:06 PM CDT 12/20/2024 5:25 PM CDT Renetta Echols MD LAB BLOOD ORDERABLES Fin al Result Performing Organization Address [facility] de Phone Number [address] [place] [address] * Thyroid Function [place] (12/20/2024 5:06 PM CDT) Pathologist [facility] TSH 0.32 0.30 - 4.20 mcIUnit/mL Comment:Testing performed by : [address] [address] Blood 12/20/2024 5:06 PM CDT 12/20/2024 5:25 PM CDT Renetta Echols MD LAB BLOOD ORDERABLES Fin al Result Performing Organization Address [facility] de Phone Number [address] [address] * CBC with auto differential (12/20/2024 5:06 PM CDT) Pathologist [facility] WBC 6.20 3.80 - 9.90 K/cumm Comment:Testing performed by : [address] [address] Hgb 13.0 13.0 - 17.5 g/dL [facility] Comment:Testing performed by : [address] [address] Hct 39.6 38.9 - 50.3 % [facility] Comment:Testing performed by : [address] [address] Plt 245 150 - 400 K/cumm [facility] Comment:Testing performed by : [address] [address] MPV 9.7 9.1 - 12.3 fL [facility] Comment:Testing performed by : [address] [address] RBC 4.61 4.30 - 5.80 M/cumm [facility] Comment:Testing performed by : [address], [address] MCV 85.9 81.3 - 96.4 fL [facility] Comment:Testing performed by : [address] [address] MCH 28.2 27.1 - 33.3 pg [facility] Comment:Testing performed by : [address], [address] MCHC 32.8 32.3 - 35.7 g/dL [facility] Comment:Testing performed by : [address], [address] RDW CV 14.0 11.1 - 14.9 % [facility] Comment:Testing performed by : [address], [address] RDW SD 43.7 35.7 - 48.1 fL [facility] Comment:Testing performed by : [address], [address] NRBC abs 0.00 0.00 - 0.01 K/cumm [facility] Comment:Testing performed by : [address], [address] Blood Venous blood specimen / Unknown 12/20/2024 5:06 PM CDT 12/20/2024 5:25 PM CDT us Renetta Echols MD LAB BLOOD ORDERABLES Fin al Result [facility] [address] [facility] Department of Laboratories [place], [place] [id number] * Ethanol (12/20/2024 5:06 PM CDT) Ethanol <10 <=10 mg/dL Comment: Interpretive Data Legal limit of intoxication > or = 80 mg/dL Levels > or = 400 mg/dL are potentially TOXIC. Current interpretive data was last revised on 2018. Testing performed by: [address] [address] Blood 12/20/2024 5:06 PM CDT 12/20/2024 5:25 PM CDT Renetta Echols MD LAB BLOOD ORDERABLES Fin al Result Performing Organization Address [facility] de Phone Number [address]ON[address] [place] [address] * Acetaminophen level (12/20/2024 5:06 PM CDT) [...] after ingestion Consult toxicology or poison control ([phone]) for unknown ingestion time. Current interpretive data was last revised 2023. Testing performed by: [address] [address] Blood 12/20/2024 5:06 PM CDT 12/20/2024 5:25 PM CDT Renetta Echols MD LAB BLOOD ORDERABLES Fin al Result Performing Organization Address [facility] de Phone Number [address] [place] [address] * Salicylate level (12/20/2024 5:06 PM CDT) Salicylate <1.0 <=1.0 mg/dL Comment: Interpretive Data Toxic: 30 mg/dL or greater. Current interpretive data was last revised 2023. Testing performed by: [address] [address] Blood 12/20/2024 5:06 PM CDT 12/20/2024 5:25 PM CDT us Renetta Echols MD LAB BLOOD ORDERABLES Fin al Result [facility] [address] [facility] Department [place] [address] * Comprehensive metabolic panel (12/20/2024 5:06 PM CDT) Sodium 142 135 - 145 mmol/L Comment:Testing performed by : [address] [address] Potassium, pl 4.1 3.3 - 4.9 mmol/L [facility] Comment:Testing performed by : [address] [address] Chloride 106 97 - 110 mmol/L [facility] Comment:Testing performed by : [address] [address] CO2 24 22 - 32 mmol/L [facility] Comment:Testing performed by : [address] [address] Anion gap 12 2 - 15 mmol/L [facility] Comment:Testing performed by : [address] [address] BUN 9 6 - 25 mg/dL [facility] Comment:Testing performed by : [address] [address] Creatinine 1.10 0.80 - 1.30 mg/dL [facility] Comment:Testing performed by : [address] [address] Glucose 116 70 - 199 mg/dL [facility] [...] was last revised 2022. Testing performed by: [address] [address] Calcium 9.0 8.5 - 10.3 mg/dL [facility] Comment:Testing performed by : [address] [address] Bilirubin, total 0.2 0.1 - 1.2 mg/dL [facility] Comment:Testing performed by : [address] [address] Protein, pl 7.1 6.5 - 8.5 g/dL [facility] Comment:Testing performed by : [address] [address] Albumin 4.1 3.5 - 5.0 g/dL [facility] Comment:Testing performed by : [address] [address] Alk phos 64 40 - 130 Units/L [facility] Comment:Testing performed by : [address] [address] ALT 15 7 - 55 Units/L [facility] Comment:Testing performed by : [address] [address] AST 20 10 - 50 Units/L [facility] Comment:Testing performed by : [address] [address] Blood 12/20/2024 5:06 PM CDT 12/20/2024 5:25 PM CDT us Renetta Echols MD LAB BLOOD ORDERABLES Fin al Result [facility] [address] [facility] Department [place] [address] from Last 3 Months Insurance Advance Directives For more information, please contact: [phone] * Full Code (Latest Code Status on File) Date Activated Date Inactivated Comments 01/30/2025 5:28 AM 01/30/2025 6:09 PM * Full Code Date Activated Date Inactivated Comments 01/28/2025 2:24 AM 01/29/2025 3:59 PM * Full Code Date Activated Date Inactivated Comments 01/06/2025 2:47 PM 01/09/2025 7:55 PM * Full Code Date Activated Date Inactivated Comments 12/30/2024 1:31 AM 12/30/2024 8:15 PM * Full Code Date Activated Date Inactivated Comments 09/28/2024 2:38 PM 10/01/2024 4:02 PM Care Teams [employer] Relationship Specialty Start Date End Date No, Physician PCP - General 11/30/20
--- OUTSIDE RECORDS SUMMARY | 2025-02-09 21:44 | XMS_ITS | Encounter Summary ---
Author Organization [facility] Healthcare Address [address] [place] [address] Care Team Providers Care Chemical Engineering Teacher Name Role Phone No, Physician Primary Care Provider [phone] Reason for Visit * Reason Comments Hand Pain Encounter Details Date Type Department Care Team ([facility] st Contact Info) Description 02/08/2025 1:07 AM CDT - 02/08/2025 1:27 AM CDT Emergency [facility] Emergency Department [address] [place] [address] Fela Posadas MD [address] [facility] [address] [place] [address] Right hand pain (Primary Dx) Discharge Disposition: Discharge to home or self care Social History Tobacco Use Types Packs/Day Years Used Date Smoking Tobacco: Some Days Cigarettes Alcohol Use Standard Drinks/Week Comments Defer 0 (1 standard drink = 0.6 oz pur e alcohol) [facility] Utilities Answer Date Recorded In the past 12 months has e [employer] gas, oil, or water [employer] threatened to shut off services in your [...] often do you attend chur ch or christian services? Never 01/30/2025 Do you belong to any clubs o r organizations such as yarsani groups, unions, fraternal or athletic groups, or [...] staff should administer the PHQ-9) 2 09/07/2023 [facility] [place] of Occupat ional Health - Occupational Stress [...] place to sleep or slept in a custodial (including now)? Yes 10/02/2023 Housing Stability Vital Sign Answer Pavel e Recorded In the last 12 months, was t here a time when you were not able to pay the mortgage or rent on time? No 01/30/2025 In the past 12 months, how m any times have you moved where you were living? 1 01/30/2025 At any time in the past 12 m [facility], were you homeless or living in a custodial (including now)? 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 (5 years old or older) Answer Entry Date Author No 01/07/2025 10:40 AM CDT Seema Quintero LCSW documented in this encounter Discharge Instructions * Discharge Instructions* Fela Posadas MD - 02/08/2025 1:17 AM CDT You were seen tonight with right hand pain after punching a wall. Fortunately you do not have a broken bone in your hand. You were able to move your fingers. Keep your hand elevated to minimize swelling and pain. You may use the Mejia wrap for comfort If you have worsening pain, worsening swelling, have change in sensation in your fingers, or you feel that you are not able to move them normally, please follow up with the orthopedic surgeons withinthe next 1-2 weeks. * Attachments The following attachments cannot be sent through Care Everywhere. * MEJIA Wrap (Indonesian) documented in this encounter Medications at Time of Discharge acetaminophen (TYLENOL) 500 mg tablet Take 2 tablets (1,000 mg total) by mouth every 6 (six) hours as needed for pain 30 tablet 02/04/2025 colchicine (COLCRYS) 0.6 mg tabletIndication s:Pericarditis Take 1 tablet (0.6 mg total) by mouth 2 (two) times a day 60 tablet 2 01/09/2025 01/09/2026 famotidine (PEPCID) 20 mg tablet Take 1 tablet (20 mg total) by mouth 2 (two) times a day 30 tablet 02/06/2025 02/06/2026 ondansetron (ZOFRAN) 4 mg tablet Take 1 tablet (4 mg total) by mouth every 6 (six) hours as needed for nausea or vomiting 12 tablet 02/04/2025 predniSONE (DELTASONE) 10 mg tablet Take 4 tablets (40 mg) by mouth daily for 5 days, THEN 2 tablets (20 mg) daily for 5 days, THEN 1 tablet (10 mg) daily for 5 days, THEN 0.5 tablets (5 mg) daily for 5 days. 38 tablet 01/30/2025 02/19/2025 documented as of this encounter Discharge Disposition Disposition Code Departure Means Destination Comment s Discharge to home or self care documented in this encounter ED Notes * Fela Posadas MD - 02/08/2025 1:17 AM CDT HPI Chief Complaint Patient presents with Hand Pain HPI This is a 34-year-old male who presents after punching a wall with right hand pain. He was initially not able to move his fingers due to pain, noted swelling. Now is able to make a fist and extend. No other injuries. Patient denies any fevers, chills, headache, vision change, cough, shortness of breath, chest pain, nausea, vomiting, abdominal pain, focal neurologic weakness. Patient History: Past Medical History: Diagnosis Date Adjustment disorder Alcohol use Asthma Depression with suicidal ideation 12/06/2023 Marijuana use Pericarditis Tobacco use Review of Systems Review of Systems All other systems reviewed and are negative. Physical Exam ED Triage Vitals [02/07/25 2305] Temp Pulse Resp BP SpO2 36.6 ??C (97.9 ??F) 86 16 117/73 96 % Temp src Heart Rate Source Patient Position BP Location FiO2 (%) Oral -- -- -- -- Height Height Method Weight Weight Method 1.803 m (5' 11) Stated 81.6 kg (180 lb) Stated Physical Exam Vitals and nursing note reviewed. Constitutional: General: He is not in acute distress. Appearance: He is well-developed. HENT: Head: Normocephalic and atraumatic. Right Ear: Ear canal normal. Left Ear: Ear canal normal. Eyes: Conjunctiva/sclera: Conjunctivae normal. Cardiovascular: Rate and Rhythm: Normal rate and regular rhythm. Heart sounds: No murmur heard. Pulmonary: Effort: Pulmonary effort is normal. No respiratory distress. Breath sounds: Normal breath sounds. Abdominal: Palpations: Abdomen is soft. Tenderness: There is no abdominal tenderness. Musculoskeletal: General: No swelling. Cervical back: Neck supple. Comments: Right hand with contusion over the long finger MCP dorsum. Patient is hesitant to flex and extend although does have full strength throughout his hand on exam. No sensory deficit. Fingers are warm and perfused. Skin: General: Skin is warm and dry. Capillary Refill: Capillary refill takes less than 2 seconds. Neurological: Mental Status: He is alert. Psychiatric: Mood and Affect: Mood normal. MDM This is a 34-year-old male here with right hand pain after punching a wall. Differential diagnosis includes contusion, fracture, dislocation, less likely neurovascular or tendon injury. X-rays negative for fracture. Mejia wrap applied. Patient given Tylenol and ibuprofen. He is stable for discharge. Heart Score Medical Decision Making Amount and/or Complexity of Data Reviewed Radiology: ordered. Risk OTC drugs. Prescription drug management. Final diagnoses: Right hand pain Fela Posadas MD 02/08/25121 Fela Posadas MD 02/08/25124 * Carmel Milan, DORINDA - 02/07/2025 11:02 PM CDT Patient presents to ED for finger pain after punching a wall. Patient hit right hand, 3rd knuckle appears swollen, small abrasion noted to knuckle. Patient only endorsing pain on 3rd knuckle, does not radiate anywhere else on right hand. Limited ROM, endorsing some tingling sensation to 3rd digit. Patient endorsing SOB as well due to being out of inhaler. Patient speaking in full sentences, in NAD. Ambulatory, GCS 15. MHx asthma, pericarditis documented in this encounter Miscellaneous Notes * Plan of Care - Roberta Manuel LCSW - 02/08/2025 1:27 AM CDT CARRIE consulted regarding transportation assistance. CARRIE [facility] to confirm dischargeaddress ([address] , [place], [place]). Patient currently has active [place] Medicaid. CARRIE contacted [facility] [phone] and spoke with Cely. Patient provided the following phone number forupdates regarding Uber/Lyft: [phone] No further needs. Roberta Manuel LCSW Orange Picker 02/08/2025 documented in this encounter Plan of Treatment Not on file documented as of this encounter Procedures Procedure Name Priority Date/Time Associated Diagnosis Comments XR HAND RIGHT 3 OR MORE VIEWS ED 02/07/2025 11:45 PM CDT documented in this encounter Results * XR Hand Right 3 or [...] MD IMG XR PROCEDURES Fin al Result documented in this encounter Visit Diagnoses Diagnosis Right hand pain- Primary Pain in soft tissues of limb documented in this encounter Administered Medications Inactive Administered Medications - up to 3 most recent administrations Medication Order MAR Action Action Date Dose Rate Site acetaminophen (TYLENOL) tablet 1,000 mg 1,000 mg, oral, Every 6 hours PRN, 1st line for pain, Contact provider if contraindication to acetaminophen or if pain unrelieved after 2 doses., Starting on Wed02/07/25 at 2235, For 2 doses, Do not administer if patient has taken greater than 3g of acetaminophen in the past 24 hours. Do not administer if patient has history of liver disease., Indications: PainIndications:Pain ibuprofen (ADVIL,MOTRIN) tablet 800 mg 800 mg, oral, Once, On Dolly 02/08/25 at 0118, For 1 dose Given 02/08/2025 1:23 AM CDT 800 mg documented in this encounter Active and Recently Administered Medications Times are shown in CDT. Scheduled Medication Order 02/06/2025 02/07/2025 02/08/2025 ibuprofen (ADVIL,MOTRIN) tablet 800 mg (COMPLETED) 800 mg, oral, Once, On Dolly 02/08/25 at 0118, For 1 dose 0123 (Given - Provid er: Yoselin Belcher RN) PRN Medication Order 02/06/2025 02/07/2025 02/08/2025 acetaminophen (TYLENOL) tablet 1,000 mg 1,000 mg, oral, Every 6 hours PRN, 1st line for pain, Contact provider if contraindication to acetaminophen or if pain unrelieved after 2 doses., Starting on Wed02/07/25 at 2235, For 2 doses, Do not administer if patient has taken greater than 3g of acetaminophen in the past 24 hours. Do not administer if patient has history of liver disease., Indications: Pain documented in this encounter Orders Medications Ordered That Sukumar ht Not Have Been Administered Count Last Ordered Date First Ordered Date acetaminophen (TYLENOL) tablet 1,000 mg 1 0 02/07/2025 documented in this encounter Care Teams Chemical Engineering Teacher Relationship Specialty Start Date End Date No, Physician PCP - General 11/30/20 documented as of this encounter
--- OUTSIDE RECORDS SUMMARY | 2025-02-09 21:44 | XMS_ITS | Encounter Summary ---
Author Organization [facility] Address 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 AVG GLUCOSE, A1C 111 mg/dL 11/05/2024 9:48 AM CDT [facility] Blood 11/05/2024 6:48 AM CDT 11/05/2024 8:45 AM CDT Narrative [facility] - 11/05/2024 9:48 AM CDT HGB A1C INTERPRETATION NORMAL: <5.7% PRE-DIABETES: 5.7 - 6.4% DIABETES: 6.5% OR GREATER Ventura Brian MD CHEMISTRY ORDERABLES Final Res ult Performing Organization Address City/[facility]/ZIP Co de Phone Number [facility] [id number] [address] [place] [address] [phone] * GLUCOSE LEVEL (11/05/2024 6:48 AM CDT) GLUCOSE 91 70 - 115 mg/dL 11/05/2024 9:58 AM CDT [facility] Blood Collection / Unknown 11/05/2024 6:48 AM CDT 11/05/2024 8:45 AM CDT Ventura Brian MD CHEMISTRY ORDERABLES Final Res ult Performing Organization Address City/[facility]/ZIP Co de Phone Number [facility] [id number] [address] [place] [phone] * LIPID PANEL (11/05/2024 6:48 AM CDT) CHOLESTEROL 136 <200 mg/dL 11/05/2024 9:58 AM CDT [facility] TRIGLYCERIDE 69 <150 mg/dL 11/05/2024 9:58 AM CDT [facility] HDL 50 40 - 59 mg/dL 11/05/2024 9:58 AM CDT [facility] LDL CALCULATED 72 <100 mg/dL 11/05/2024 9:58 AM CDT [facility] NON-HDL CHOLESTEROL 86 <130 mg/dL 11/05/2024 9:58 AM CDT [facility] Blood Collection / Unknown 11/05/2024 6:48 AM CDT 11/05/2024 8:45 AM CDT Narrative [facility] - 11/05/2024 9:58 AM CDT TOTAL CHOLESTEROL [...] ORDERABLES Final Res ult [facility] [id number] [address] [place] [address] [phone] documented in this encounter Visit Diagnoses Not on filedocumented in this encounter
--- OUTSIDE RECORDS SUMMARY | 2025-02-09 21:45 | XMS_ITS | Clinical Summary ---
Author Organization [facility] Address [address] [place] [address] Care Team Providers Care County Judge Name Role Phone None, Physician Primary Care Provider Unavailabl e Source Comments [facility],non-owned Affiliates and Associated Physician Practices is amultiple site organization consisting of ambulatory clinics and hospital sitesin [place], [place], [place] and [place]. This disclosure is being madepursuant to the Care Everywhere program and may not contain all information available regarding this patient. Last updated 18.[facility] Allergies No known active allergies Medications * [...] (06/02/2022): Added automatically from request for surgery [id number] ST elevation myocardial infa rction (STEMI), unspecified [...] housing, medical care, and heating? 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 Gender Identity Not on file Sexual Orientation Not on file Last Filed Vital Signs Vital Sign Reading Time Taken Comments Blood Pressure 141/85 09/17/2024 4:00 AM MOHS SURGEON Pulse 87 09/17/2024 4:00 AM MOHS SURGEON Temperature 36.9 C (98.5 F) 09/17/2024 1:48 AM MOHS SURGEON Respiratory Rate 13 09/17/2024 4:02 AM MOHS SURGEON Oxygen Saturation 96% 09/17/2024 4:00 AM MOHS SURGEON Inhaled Oxygen Concentration - - Weight 72.6 kg (160 lb) 09/17/2024 1:45 AM MOHS SURGEON Height 180.3 cm (5' 11) 09/17/2024 1:45 AM MOHS SURGEON Body Mass Index 22.32 09/17/2024 1:45 AM MOHS SURGEON Plan of Treatment Health Maintenance Due Date Last Done Comments HEPATITIS B VACCINE (3 of 3 - 3-dose series) 11/16/2000 09/21/2000, 04/04/1996 DTAP/TDAP/TD VACCINES (5 - Tdap) 2002 04/04/1996, 08/20/1992, 06/20/1992, Additional history exists HIV SCREENING 2006 HEPATITIS C SCREENING 03/01/2009 COVID-19 VACCINE ( season) 2024 DEPRESSION SCREENING 08/02/2024 INFLUENZA VACCINE (#1) 2025 ZOSTER VACCINE (1 of 2) 2041 [...] 4:30 AM 06/03/2022 4:00 PM Care Teams County Judge Relationship Specialty Start Date End Date None, Physician PCP - General 09/17/24
--- OUTSIDE RECORDS SUMMARY | 2025-02-09 21:45 | XMS_ITS | Clinical Summary ---
Author Organization [facility] Address [address] [place] [address] Phone Care Team Providers Care Sintering Press Operator Name Role Phone Unavailable Primary Care Provider Unavailabl e Allergies No known active allergies Encounters Date Type Department Care Team Description 12/22/2024 Lab Requisition [facility] Laboratory Services [address] [place] [phone] Ventura Brian MD from Last 3 Months Social History Tobacco Use Types Packs/Day Years Used Date Smoking Tobacco: Never Assessed Sex and Gender Information Value Date Recorded Sex Assigned at Not on file Legal Sex Male 8:18 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 Gender Identity Not on file Sexual Orientation Not on file Last Filed Vital Signs Vital Sign Reading Time Taken Comments Blood Pressure 136/87 06/14/2021 8:27 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 Pulse - - Temperature 36.9 C (98.4 F) 06/14/2021 8:27 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 Respiratory Rate 18 06/14/2021 8:27 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 Oxygen Saturation 98% 06/14/2021 8:27 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 Inhaled Oxygen Concentration - - Weight 69.9 kg (154 lb) 06/14/2021 8:27 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 Height 15.2 cm (6) 06/14/2021 8:27 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 Body Mass Index 3007.61 06/14/2021 8:27 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 Plan of Treatment Health Maintenance Due Date Last Done Comments DTAP/TDAP/TD VACCINES (1 - Tdap) 2010 HEPATITIS B VACCINES (1 of 3 - 19+ 3-dose series) 2010 INFLUENZA VACCINE (#1) 2025 HPV VACCINES Aged Out No longer eligi ble based on patient's age to complete this topic Procedures Procedure Name Priority Date/Time Associated Diagnosis Comments HEMOGLOBIN A1C Routine 12/22/2024 5:35 AM CDT LIPID PANEL Routine 12/22/2024 5:35 AM CDT from Last 3 Months Results * HEMOGLOBIN A1C (12/22/2024 5:35 AM CDT) HEMOGLOBIN A1C 5.5 <=5.6 % 12/22/2024 7:21 AM CDT [facility] EST. AVG GLUCOSE, A1C 111 mg/dL 12/22/2024 7:21 AM CDT [facility] Blood Venipuncture / Unknown 12/22/2024 5:35 AM CDT 12/22/2024 6:18 AM CDT Narrative [facility] - 12/22/2024 7:21 AM CDT HGB A1C INTERPRETATION NORMAL: <5.7% PRE-DIABETES: 5.7 - 6.4% DIABETES: 6.5% OR GREATER us Ventura Brian MD CHEMISTRY ORDERABLES Final Res ult [facility] [id number] [address] [place] [address] * LIPID PANEL (12/22/2024 5:35 AM CDT) CHOLESTEROL 132 <200 mg/dL 12/22/2024 7:25 AM CDT [facility] TRIGLYCERIDE 83 <150 mg/dL 12/22/2024 7:25 AM CDT [facility] HDL 45 40 - 59 mg/dL 12/22/2024 7:25 AM CDT [facility] LDL CALCULATED 70 <100 mg/dL 12/22/2024 7:25 AM CDT [facility] NON-HDL CHOLESTEROL 87 <130 mg/dL 12/22/2024 7:25 AM CDT [facility] Blood Venipuncture / Unknown 12/22/2024 5:35 AM CDT 12/22/2024 6:18 AM CDT Narrative [facility] - 12/22/2024 7:25 AM [...] [facility] [id number] [address] [place] [phone] from Last 3 Months Insurance [facility] PL[facility] MEDICAID
--- OUTSIDE RECORDS SUMMARY | 2025-02-09 21:45 | XMS_ITS | Patient Health Record ---
Author Organization [facility] Address [address] [place] [address] Care Team Providers Care Air Hoist Operator Name Role Phone Rocío Castillo Primary Care Provider Nancy Garcia Unavailable [phone] Reason For Referral No Information Social History Sex Assigned At : Social History Observation Description Sex Assigned At Male Encounters Encounter Location Date Provider Diagnosis [address] [place] [address] 10/16/2024 Rocío Castillo [address] [place] [address] 01/29/2025 Arif Habib Plan Of Treatment No Information Insurance Providers Payer Name Payer Address Payer Phone Subscriber Number Group Number Insured Name Patient Relationship to Insured Coverage Start Date Coverage End Date [employer] [address] [phone] [id number] [employer] Self - patient is the insured 4
--- OUTSIDE RECORDS SUMMARY | 2025-02-09 21:45 | XMS_ITS | Referral Summary ---
Author Organization [facility] Address [address] [place] [address] Care Team Providers Care Education Program Manager Name Role Phone No, Physician Primary Care Provider [phone] Encounters Date Type Department Care Team Description 02/08/2025 1:07 AM CDT - 02/08/2025 1:27 AM CDT Emergency [facility] Emergency Department [address] [place] [phone] Fela Posadas MD Right hand pain (Primary Dx) Discharge Disposition: Discharge to home or self care 02/06/2025 2:43 AM CDT - 02/06/2025 5:28 AM CDT Emergency [facility] Emergency Department [address] [place] [address] Larissa Medellin MD Abdominal pain (Primary Dx) Discharge Disposition: Discharge to home or self care 02/04/2025 2:18 AM CDT - 02/04/2025 4:39 AM CDT Emergency [facility] Emergency Department [address] [place] [phone] Richi Aguilar MD Abdominal pain (Primary Dx) Discharge Disposition: Discharge to home or self care 02/02/2025 3:08 AM CDT - 02/02/2025 5:29 AM CDT Emergency [facility] Emergency Department [address] [place] [phone] Abdominal pain (Primary Dx) Discharge Disposition: Discharge to home or self care 01/30/2025 12:42 AM CDT - 01/30/2025 2:03 PM CDT Hospital Encounter [address] [address] Renetta Echols MD Ogbuagu, MD Elvira Gao Sohaib, MD Smith, Yordan Akbar MD Epigastric pain (Primary Dx); Microscopic hematuria Discharge Disposition: Discharge to home or self care 01/28/2025 12:13 AM CDT - 01/29/2025 11:52 AM CDT Hospital Encounter [address] [phone] Rupert Kaplan MD Zhao, Bella Moreno MD PhD Arsenio, Larry Angulo MD Recurrent idiopathic pericarditis (Primary Dx); Chest pain, unspecified type Discharge Disposition: Discharge to home or self care 01/18/2025 1:07 AM CDT - 01/18/2025 4:16 AM CDT Emergency [facility] Emergency Department [address] [place] [phone] Luana Beckett MD Abdominal pain (Primary Dx) Discharge Disposition: Discharge to home or self care 01/13/2025 10:24 AM CDT - 01/13/2025 2:45 PM CDT Emergency [address] [address] Chest pain, unspecified type (Primary Dx) Discharge Disposition: Discharge to home or self care 01/06/2025 2:01 PM CDT - 01/09/2025 3:55 PM CDT Hospital Encounter [facility] [address] [place] [phone] Filipe Claros MD L'Ecuyer, Suzanne, MD de Leon, Kelly Smith MD Unspecified depressive disorder [F32.A] (Primary Dx); Chronic pericarditis [I31.9]; Cannabis use disorder, moderate, dependence (HCC) [F12.20] Discharge Disposition: Discharge to home or self care 01/06/2025 12:57 PM CDT - 01/06/2025 11:59 PM CDT Hospital Encounter [facility] Emergency, Room R Discharge Disposition: Discharge to home or self care 01/06/2025 12:47 AM CDT - 01/06/2025 12:58 PM CDT Emergency [facility] Emergency Department [address] [place] [address] Jose Sullivan MD Zozula, Jaskaran Macdonald MD Suicidal ideation (Primary Dx) Discharge Disposition: Discharge to psych hospital or psych unit 01/04/2025 [facility] Post Discharge Follow up phone call [facility] Surgery Care [address] [place] [address] Anastasiia Montano 01/01/2025 10:08 PM CDT - 01/02/2025 2:26 AM CDT Emergency [facility] Emergency Department [address] [place] [phone] Irina Yeager MD Suicidal ideation (Primary Dx) Discharge Disposition: Discharge to home or self care 12/29/2024 10:58 PM CDT - 12/30/2024 4:10 PM CDT Hospital Encounter [facility] IMU [address] [place] [address] Jose Sullivan MD Fasick, Victoria Rose, DO Richards, John Albert Jr., MD Chest pain, unspecified type (Primary Dx); Other chest pain; Chronic pericarditis; Acute idiopathic pericarditis Discharge Disposition: Discharge to home or self care 12/20/2024 5:19 PM CDT - 12/21/2024 12:03 PM CDT Emergency [facility] Emergency Department [address] [place] [phone] Renetta Echols MD Suicidal ideation (Primary Dx) [...] ED read with diffuse ST elevation and SD depression. - has been taking colchicine but [...] ED read with diffuse ST elevation and SD depression. - has been taking colchicine but [...] remember the name. Recent discharge 01/06 from [facility] with no medications listed. Encouraged patient to [...] 09/30/2024 Assessment & Plan (09/30/2024 9:09 AM AT HOME INDEPENDENT CALL CENTER AGENT): Will try to obtain iron studies I asked SW to help w/ PCP followup Epigastric pain 09/30/2024 Assessment & Plan (09/30/2024 9:17 AM AT HOME INDEPENDENT CALL CENTER AGENT): When asked where his pericarditis pain is, he points to the epigastrium. When I saw him in 11/2023, I had requested an H pylori stool antigen, which we were not able to obtain. -Try again to obtain H pylori antigen (especially w/ history of anemia) Depression 09/29/2024 Assessment & Plan (09/29/2024 1:17 PM AT HOME INDEPENDENT CALL CENTER AGENT): As per psychiatry Will addon a TSH Pericarditis 09/29/2024 Assessment & Plan (09/30/2024 9:10 AM AT HOME INDEPENDENT CALL CENTER AGENT): Currently asymptomatic. Will obtain EKG. 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 Low threshold to restart. The chest pain (when present) he notes is epigastric so that may be a component of GERD Renal lesion 09/29/2024 Assessment & Plan (09/30/2024 9:09 AM AT HOME INDEPENDENT CALL CENTER AGENT): 11/02/23 CT: There are 3 low-attenuation lesions [...] follows w/ Dr Cat Choudhary (cardiology w/ [facility]), which he will follow up with Plan: [...] 11/16/2023 Assessment & Plan (09/30/2024 9:11 AM AT HOME INDEPENDENT CALL CENTER AGENT): B12 300, same as 11/2023. Will replete [...] 11/16/2023 Assessment & Plan (09/30/2024 9:11 AM AT HOME INDEPENDENT CALL CENTER AGENT): Late latent, appropriately treated. See my 11/15/24 note Assessment & Plan (11/16/2023 1:25 PM CDT): As per my colleague Dr Bynum (see 09/07/23 medicine c/s note): - Has history of Syphilis, treated in 2013 , -Treponema ab + and RPR 1:4 on 08/29/23 when tested at [facility] ED Contacted [facility] ( [place] ) for info To see if titers are coming down , left message with Nurse ( [phone]): Called back received, Patient diagnosed with late latent syphilis at [facility] in [place] on 10-11 : +RPR titer 1 :256, treponema -EIA positive Completed treatment with benzathine penicillin G x 3 doses given on November 21 2013, November 28 2013 and December 052013 So appropriately treated Lumbar strain, initial encounter 09/16/2023 Anemia 09/08/2023 Assessment & Plan (09/08/2023 8:05 PM AT HOME INDEPENDENT CALL CENTER AGENT): -possible hx of GI bleed in June, [...] disease) Assessment & Plan (09/08/2023 5:10 AM AT HOME INDEPENDENT CALL CENTER AGENT): -continue pepcid Adjustment disorders, with mixed anxiety and dep ressed mood 09/07/2023 Assessment & Plan (09/08/2023 4:53 AM AT HOME INDEPENDENT CALL CENTER AGENT): Per Psychiatry Cannabis use disorder, moderate, dependence 01/2024 Assessment & Plan (09/08/2023 4:53 AM AT HOME INDEPENDENT CALL CENTER AGENT): Per Psychiatry History of syphilis 09/07/2023 Assessment & Plan (09/08/2023 12:28 PM AT HOME INDEPENDENT CALL CENTER AGENT): - Has history of Syphilis, treated in 2013 , -Treponema ab + and RPR 1:4 on 08/29/23 when tested at [facility] ED Contacted [facility] ( [place] ) for info To see if titers are coming down , left message with Nurse ( [phone]): Called back received, Patient diagnosed with late latent syphilis at [facility] in [place] on 10-11 : +RPR titer 1 :256, treponema -EIA positive Completed treatment with benzathine penicillin G x 3 doses given on November 21 2013, November 28 2013 and December [id number] HIV 1/2 Abs +p24 Ag Non reactive [...] recs Assessment & Plan (07/27/2023 10:01 AM AT HOME INDEPENDENT CALL CENTER AGENT): Wes has been struggling for the last 4 years with unstable realtionships, unstable housing, difficulty finding and maintaining employment, and in and out of chcf/senior living/probation. He says that he is sad about [...] Med recs apprec; h/o pericarditis Swer to replaced by [facility] with follow-up and dispo Assessment & Plan (07/26/2023 9:44 AM AT HOME INDEPENDENT CALL CENTER AGENT): Wes has been struggling for the last 4 years with unstable realtionships, unstable housing, difficulty finding and maintaining employment, and in and out of chcf/senior living/probation. He says that he is sad about his grandmother passing, but is no longer suicidal because that's not what my granemmy would've wanted. He says that getting a [...] Med recs apprec; h/o pericarditis Swer to replaced by [facility] with follow-up and dispo Assessment & Plan (07/25/2023 12:24 PM AT HOME INDEPENDENT CALL CENTER AGENT): Wes has been struggling for the last 4 years with unstable realtionships, unstable housing, difficulty finding and maintaining employment, and in and out of chcf/senior living/probation. He says that he is sad about [...] Med recs apprec; h/o pericarditis Swer to replaced by [facility] with follow-up and dispo Assessment & Plan [...] was started on Abilify and Depakote in [place], and reports that his visual and auditory hallucinations have resolved. - Start Sertraline 50mg, consider titrating - Obtain further information about the hallucinations - Haldol 5 p.o. or Haldol 5/Ativan 2 IM PRN for agitation - Suicide/elopement/safety precautions - Therapeutic milieu - q15 min safety checks Asthma 05/22/2023 Assessment & Plan (09/29/2024 1:14 PM AT HOME INDEPENDENT CALL CENTER AGENT): Mild. Prn albuterol Assessment & Plan (09/08/2023 5:12 AM AT HOME INDEPENDENT CALL CENTER AGENT): - no PFTs available , currently not in exacerbation, - PRN albuteral Assessment & Plan (07/25/2023 10:37 AM AT HOME INDEPENDENT CALL CENTER AGENT): Intermittent. No symptoms. Uses albuterol prn at [...] (11/04/2024): Added automatically from request for surgery [id number] Resolved Problems Problem Noted Date Diagnosed Date Resolved Date history of Pericarditis 09/07/202310/31 Assessment & Plan (09/08/2023 8:04 PM AT HOME INDEPENDENT CALL CENTER AGENT): - patient has not been able to afford colchicine and reports benefit when getting doses in ED visits - continue colchicine 0.6 mg po BID and monitor for side effects, it should be held if nausea, vomiting, diarrhea -Hold NSAIDS as -he as not tolerated with significant Gi side effects -Patient was seen by Cardiology as outpatient on 09/02/2023 at [facility] ([facility]) [...] psychiatry Assessment & Plan (07/25/2023 10:36 AM AT HOME INDEPENDENT CALL CENTER AGENT): Pt w/ hx of depression and anxiety [...] drink = 0.6 oz pur e alcohol) [facility] Utilities Answer Date Recorded In the past 12 months has [employer], gas, oil, or water [employer] threatened to shut off services in your [...] week 01/30/2025 How often do you attend formerly [facility] or mormonism services? Never 01/30/2025 Do you belong to any clubs o r organizations such as cheondoism groups, unions, fraternal or athletic groups, or [...] staff should administer the PHQ-9) 2 09/07/2023 [facility] of Occupat ional Health - Occupational Stress [...] to sleep or slept in a senior living (including now)? Yes 10/02/2023 Housing Stability Vital Sign Answer Pavel e Recorded In the last 12 months, was t here a time when you were not able to pay the mortgage or rent on time? No 01/30/2025 In the past 12 months, how m any times have you moved where you were living? 1 01/30/2025 At any time in the past 12 m [facility], were you homeless or living in a senior living (including now)? No 01/30/2025 Personal Safety Answer [...] on file Legal Sex Male 5:49 PM AT HOME INDEPENDENT CALL CENTER AGENT Gender Identity Not on file Sexual Orientation [...] Mass Index 25.1 02/07/2025 11:05 PM CDT Functional Status * Are you deaf or do you have serious difficulty hearing? Answer Date of Assessment Author No 01/07/2025 10:40 AM CDT Seema Quintero LCSW * Are you blind or do you have serious difficulty seeing, even when wearing glasses? Answer Date of Assessment Author No 01/07/2025 10:40 AM CDT Seema Quintero, EMERGENCY PLANNING AND RESPONSE MANAGER * Do you have serious difficulty walking or climbing stairs? Answer Date of Assessment Author No 01/07/2025 10:40 AM CDT Seema Quintero, EMERGENCY PLANNING AND RESPONSE MANAGER * Do you have serious difficulty dressing or bathing? Answer Date of Assessment Author No 01/07/2025 10:40 AM CDT Seema Quintero, EMERGENCY PLANNING AND RESPONSE MANAGER * Because of a physical, mental, or emotional condition, do you have serious difficulty doing errandsalone such as visiting the doctor? Answer Date of Assessment Author No 01/07/2025 10:40 AM CDT Seema Quintero, NICHOLAS Mental Status * Because of a physical, [...] 8:59 AM CDT DIFFERENTIAL AUTO STAT 01/13/2025 8: 59 AM CDT TROPONIN T HIGH-SENSITIVITY SERIES (BASELINE, [...] by Farida Mahmood M.D. SN: Report ID: [id number] Reading Location: [id number] Procedure Note Farida Mahmood MD - 02/06/2025 [...] Farida Mahmood M.D. SN: SN Report ID: [id number] Reading Location: [place] [address] Larissa Medellin MD IMG CT PROCEDURES Final R esult * eGFR (02/06/2025 2:55 AM CDT) eGFR >90 >=60 mL/min/1. 73 [...] LAB BLOOD ORDERABLES Vickie arreola Result [facility]) 1 [facility] [place] [address] [phone] * Differential, auto (02/06/2025 2:55 AM CDT) Neutrophil abs 2.96 1.50 - 6.50 K/cumm Imm gran abs 0.03 0.00 - 0.10 K/cumm [facility] ([facility]) Lymphocyte abs 2.10 0.80 - 3.30 K/cumm [facility] ([facility]) Monocyte abs 0.76 0.20 - 0.80 K/cumm [facility] ([facility]) Eosinophil abs 0.12 0.00 - 0.50 K/cumm [facility] ([facility]) Basophil abs 0.02 0.00 - 0.10 K/cumm [facility] ([facility]) Neutrophil pct 49.4 % [facility] ([facility]) Comment: Interpretive Data Percent cell count reference ranges are not reported, since discordance with absolute values may lead to misinterpretation of CBC data. Current Interpretive Data was last revised on 2017. Imm gran pct 0.5 % [facility] ([facility]) Comment: Interpretive Data Percent cell count reference ranges are not reported, since discordance with absolute values may lead to misinterpretation of CBC data. Current Interpretive Data was last revised on 2017. Lymphocyte pct 35.1 % [facility] ([facility]) Comment: Interpretive Data Percent cell count reference ranges are not reported, since discordance with absolute values may lead to misinterpretation of CBC data. Current Interpretive Data was last revised on 2017. Monocyte pct 12.7 % [facility] ([facility]) Comment: Interpretive Data Percent cell count reference ranges are not reported, since discordance with absolute values may lead to misinterpretation of CBC data. Current Interpretive Data was last revised on 2017. Eosinophil pct 2.0 % [facility] ([facility]) Comment: Interpretive Data Percent cell count reference ranges are not reported, since discordance with absolute values may lead to misinterpretation of CBC data. Current Interpretive Data was last revised on 2017. Basophil pct 0.3 % [facility] ([facility]) Comment: Interpretive Data Percent cell count reference ranges are not reported, since discordance with absolute values may lead to misinterpretation of CBC data. Current Interpretive Data was last revised on 2017. Blood 02/06/2025 2:55 AM CDT 02/06/2025 3:00 AM CDT Larissa Medellin MD LAB BLOOD ORDERABLES Vickie l Result [facility] ([facility]) 1 [facility] [place] [employer] [place] [address] * (ABNORMAL) CBC with auto differential (02/06/2025 [...] Vickie l Result [facility] ([facility] 1 [facility] [place] [address] * Lipase (02/06/2025 2:55 AM CDT) Lipase 21 10 - 99 Units/L Blood 02/06/2025 2:55 AM CDT 02/06/2025 3:26 AM CDT Larissa Medellin MD LAB BLOOD ORDERABLES Vickie l Result [facility] ([facility]) 1 [facility] Department [place] [address] * Comprehensive metabolic panel (02/06/2025 2:55 AM [...] LAB BLOOD ORDERABLES Vickie arreola Result [facility] 1 [facility] Department [place] [address] * (ABNORMAL) Urinalysis reflex to microscopic and culture Urine (02/02/2025 4:11 AM CDT) Color, ur Yellow Yellow Clarity, ur Clear Clear [facility] Specific gravity, ur 1.032(H) 1.003 - 1.030 [facility] pH, urine 6.0 [facility] Comment: Interpretive Data U rine pH is affected by diet, medications, systemic acid-base disturbances, and renal tubular function. pH may affect urinary stone formation. For example, urine pH below 6.0 may help reduce the tendency for calcium phosphate stones and pH greater than 6.0 may reduce the tendency for uric acid stone formation. Source: [facility] Current Interpretive Data was last revised on 2017 Protein, ur ql Trace Negative [facility] Glucose, ur ql Negative Negative [facility] Ketones, ur Negative Negative [facility] Bilirubin, ur Negative Negative [facility] Blood, ur Trace(A) Negative [facility] Urobilinogen, ur <2.0 <2.0 mg/dL [facility] Nitrite, ur Negative Negative [facility] Leukocyte esterase, ur Negative Negative [facility] UA reflex comment Reflex to microscopic UA will be performed. [facility] Urine 02/02/2025 4:11 AM CDT 02/02/2025 4:18 AM CDT Payal [facility] LAB MICROBIOLOGY - GENER AL ORDERABLES Final Result Performing Organization Address [facility] Co de Phone Number [facility] Department [place] [address] * (ABNORMAL) Urinalysis, microscopic only (02/02/2025 4:11 AM CDT) WBC, ur 0-5 0 - 5 /HPF RBC, ur 3-5(A) 0 - 2 /HPF [facility] Mucous, ur Present(A) [facility] Hyaline casts, ur 1-5 0 - 10 /LPF [facility] Culture Reflex Comment Reflex conditions for urine culture (WBC >10) not met. [facility] Urine 02/02/2025 4:11 AM CDT 02/02/2025 4:18 AM CDT Payal [facility] LAB URINE ORDERABLES Fin al Result Performing Organization Address [facility] de Phone Number [facility] Department [place] [address] * eGFR (02/02/2025 3:50 AM CDT) eGFR [...] LAB BLOOD ORDERABLES Fin al Result [facility] Department [place] [address] * Differential, auto (02/02/2025 3:50 AM CDT) Neutrophil abs 2.81 1.50 - 6.50 K/cumm Imm gran abs 0.01 0.00 - 0.10 K/cumm [facility] Lymphocyte abs 2.08 0.80 - 3.30 K/cumm [facility] Monocyte abs 0.71 0.20 - 0.80 K/cumm [facility] Eosinophil abs 0.16 0.00 - 0.50 K/cumm [facility] Basophil abs 0.03 0.00 - 0.10 K/cumm [facility] Neutrophil pct 48.4 % [facility] Comment: Interpretive Data Percent cell count reference ranges are not reported, since discordance with absolute values may lead to misinterpretation of CBC data. Current Interpretive Data was last revised on 2017. Imm gran pct 0.2 % [facility] Comment: Interpretive Data Percent cell count reference ranges are not reported, since discordance with absolute values may lead to misinterpretation of CBC data. Current Interpretive Data was last revised on 2017. Lymphocyte pct 35.9 % [facility] Comment: Interpretive Data Percent cell count reference ranges are not reported, since discordance with absolute values may lead to misinterpretation of CBC data. Current Interpretive Data was last revised on 2017. Monocyte pct 12.2 % [facility] Comment: Interpretive Data Percent cell count reference ranges are not reported, since discordance with absolute values may lead to misinterpretation of CBC data. Current Interpretive Data was last revised on 2017. Eosinophil pct 2.8 % [facility] Comment: Interpretive Data Percent cell count reference ranges are not reported, since discordance with absolute values may lead to misinterpretation of CBC data. Current Interpretive Data was last revised on 2017. Basophil pct 0.5 % [facility] Comment: Interpretive Data Percent cell count reference ranges are not reported, since discordance with absolute values may lead to misinterpretation of CBC data. Current Interpretive Data was last revised on 2017. Blood 02/02/2025 3:50 AM CDT 02/02/2025 4:09 AM CDT Payal [facility] LAB BLOOD ORDERABLES Fin al Result Performing Organization Address City/[facility]/ZIP Co de Phone Number [facility] Department [place] [address] * CBC with auto differential (02/02/2025 3:50 AM CDT) WBC 5.80 3.80 - 9.90 K/cumm Hgb 13.2 13.0 - 17.5 g/dL [facility] Hct 40.4 38.9 - 50.3 % [facility] Plt 252 150 - 400 K/cumm [facility] MPV 9.9 9.1 - 12.3 fL [facility] RBC 4.70 4.30 - 5.80 M/cumm [facility] MCV 86.0 81.3 - 96.4 fL [facility] MCH 28.1 27.1 - 33.3 pg [facility] MCHC 32.7 32.3 - 35.7 g/dL [facility] RDW CV 13.7 11.1 - 14.9 % [facility] RDW SD 42.8 35.7 - 48.1 fL [facility] NRBC abs 0.00 0.00 - 0.01 K/cumm [facility] Blood 02/02/2025 3:50 AM CDT 02/02/2025 4:09 AM CDT Payal [facility] LAB BLOOD ORDERABLES Fin al Result [facility] Department [place] [address] * Lipase (02/02/2025 3:50 AM CDT) Pathologist [facility] Lipase 32 10 - 99 Units/L Blood 02/02/2025 3:50 AM CDT 02/02/2025 4:08 AM CDT Payal [facility] LAB BLOOD ORDERABLES Fin al Result [facility] Department [place] [address] * Comprehensive metabolic panel (02/02/2025 3:50 AM CDT) [facility] Sodium 140 135 - 145 mmol/L Potassium, pl 4.0 3.3 - 4.9 mmol/L [facility] Chloride 105 97 - 110 mmol/L [facility] CO2 26 22 - 32 mmol/L [facility] Anion gap 9 2 - 15 mmol/L [facility] BUN 14 6 - 25 mg/dL [facility] Creatinine 1.18 0.80 - 1.30 mg/dL [facility] Glucose 106 70 - 199 mg/dL [facility] Comment: Interpretive Data Fasting glucose >/= [...] Calcium 9.0 8.5 - 10.3 mg/dL [facility] Bilirubin, total <0.2 0.1 - 1.2 mg/dL [facility] Comment:Reviewed Protein, pl 7.2 6.5 - 8.5 g/dL [facility] Albumin 4.2 3.5 - 5.0 g/dL [facility] Alk phos 67 40 - 130 Units/L [facility] ALT 26 7 - 55 Units/L [facility] AST 22 10 - 50 Units/L [facility] Blood 02/02/2025 3:50 AM CDT 02/02/2025 4:08 AM CDT Payal [facility] LAB BLOOD ORDERABLES Fin al Result [facility] Department [place] [address] * eGFR (01/30/2025 6:43 AM CDT) eGFR [...] 6:43 AM CDT 01/30/2025 7:01 AM CDT us Bry Miranda MD LAB BLOOD ORDERABLES Final Result [facility] [address] [facility] Department [place] [address] * (ABNORMAL) Differential, auto (01/30/2025 6:43 AM CDT) Pathologist [facility] Neutrophil abs 5.11 1.50 - 6.50 K/cumm Imm gran abs 0.02 0.00 - 0.10 K/cumm [facility] Lymphocyte abs 1.85 0.80 - 3.30 K/cumm [facility] Monocyte abs 0.96(H) 0.20 - 0.80 K/cumm [facility] Eosinophil abs 0.04 0.00 - 0.50 K/cumm [facility] Basophil abs 0.01 0.00 - 0.10 K/cumm [facility] Neutrophil pct 63.9 % [facility] Comment: Interpretive Data [...] revised on 2017. Lymphocyte pct 23.2 % [facility] Comment: Interpretive Data Percent cell count reference ranges are not reported, since discordance with absolute values may lead to misinterpretation of CBC data. Current Interpretive Data was last revised on 2017. Monocyte pct 12.0 % [facility] Comment: Interpretive Data Percent cell count reference ranges are not reported, since discordance with absolute values may lead to misinterpretation of CBC data. Current Interpretive Data was last revised on 2017. Eosinophil pct 0.5 % [facility] Comment: Interpretive Data Percent cell count reference ranges are not reported, since discordance with absolute values may lead to misinterpretation of CBC data. Current Interpretive Data was last revised on 2017. Basophil pct 0.1 % [facility] Comment: Interpretive Data Percent cell count reference ranges are not reported, since discordance with absolute values may lead to misinterpretation of CBC data. Current Interpretive Data was last revised on 2017. Blood 01/30/2025 6:43 AM CDT 01/30/2025 7:01 AM CDT Bry Miranda MD LAB BLOOD ORDERABLES Final Result Performing Organization Address City/[facility] Co de Phone Number [facility]LLA [address] [employer] [place] [address] * (ABNORMAL) CBC with auto differential (01/30/2025 6:43 AM CDT) [facility] WBC 7.99 3.80 - 9.90 K/cumm Hgb 12.7(L) 13.0 - 17.5 g/dL [facility] Hct 38.7(L) 38.9 - 50.3 % [facility] Plt 211 150 - 400 K/cumm [facility] MPV 9.5 9.1 - 12.3 fL [facility] RBC 4.57 4.30 - 5.80 M/cumm [facility] MCV 84.7 81.3 - 96.4 fL [facility] MCH 27.8 27.1 - 33.3 pg [facility] MCHC 32.8 32.3 - 35.7 g/dL [facility] RDW CV 14.0 11.1 - 14.9 % [facility] RDW SD 42.9 35.7 - 48.1 fL [facility] NRBC abs 0.00 0.00 - 0.01 K/cumm [facility] Blood 01/30/2025 6:43 AM CDT 01/30/2025 7:01 AM CDT Bry Miranda MD LAB BLOOD ORDERABLES Final Result Performing Organization Address City/[facility] Co de Phone Number PR[facility]CILLA [address] [place] [address] * Comprehensive metabolic panel (01/30/2025 6:43 AM CDT) [facility] Sodium 140 135 - 145 mmol/L Potassium, pl 4.0 3.3 - 4.9 mmol/L [facility] Chloride 105 97 - 110 mmol/L [facility] CO2 23 22 - 32 mmol/L [facility] Anion gap 12 2 - 15 mmol/L [facility] BUN 13 6 - 25 mg/dL [facility] Creatinine 1.10 0.80 - 1.30 mg/dL [facility] Glucose 109 70 - 199 mg/dL [facility] [...] 2022. Calcium 9.4 8.5 - 10.3 mg/dL [facility] Bilirubin, total 0.5 0.1 - 1.2 mg/dL [facility] Protein, pl 7.0 6.5 - 8.5 g/dL [facility] Albumin 4.1 3.5 - 5.0 g/dL [facility] Alk phos 58 40 - 130 Units/L [facility] ALT 25 7 - 55 Units/L [facility] AST 21 10 - 50 Units/L [facility] Blood 01/30/2025 6:43 AM CDT 01/30/2025 7:01 AM CDT Bry Miranda MD LAB BLOOD ORDERABLES Final Result [facility] [address] [facility] Department [place] [address] * Troponin T high-sensitivity (01/30/2025 3:31 AM CDT) Trop T hs 10 <=22 ng/L Comment: Interpretive Data For further hscTnT resources including the diagnostic algorithm and an aid in interpretation, copy and paste this link: https://nrl.testcatalog.org/show/hsTrop Current Interpretive Data last revised 2020. Blood 01/30/2025 3:31 AM CDT 01/30/2025 3:35 AM CDT Renetta Echols MD LAB BLOOD ORDERABLES Fin al Result Performing Organization Address [facility] de Phone Number [facility]LLA [address] [employer] [place] [address] * eGFR (01/30/2025 3:31 AM CDT) eGFR [...] ORDERABLES Fin al Result Performing Organization Address [facility] de Phone Number [facility]LLA [address] [facility] [employer] [place] [address] * Renal function panel (01/30/2025 3:31 AM CDT) Pathologist [facility] Sodium 138 135 - 145 mmol/L Potassium, pl 3.8 3.3 - 4.9 mmol/L [facility] Comment:Hemolyzed; Potassium value may be falsely elevated by as much as 1.0 mmol/L. Suggest redraw and reanalysis. Chloride 103 97 - 110 mmol/L [facility] CO2 24 22 - 32 mmol/L [facility] Anion gap 11 2 - 15 mmol/L [facility] BUN 13 6 - 25 mg/dL [facility] Creatinine 1.00 0.80 - 1.30 mg/dL [facility] Glucose 111 70 - 199 mg/dL [facility] [...] 2022. Calcium 9.6 8.5 - 10.3 mg/dL [facility] Phosphorus, pl 3.8 2.3 - 4.5 mg/dL [facility] Albumin 4.7 3.5 - 5.0 g/dL [facility] Blood 01/30/2025 3:31 AM CDT 01/30/2025 3:35 AM CDT us Renetta Echols MD LAB BLOOD ORDERABLES Fin al Result [facility] [address] [facility] Department [place] [address] * ECG 12 lead (01/30/2025 2:25 AM CDT) Ventricular Rate EKG/Min 76 BPM [facility] Atrial Rate 76 BPM [facility] SD-Interval (MSEC) 174 ms [facility] QRS-Interval (MSEC) 114 ms [facility] QT-Interval (MSEC) 378 ms [facility] QTc 425 ms [facility] P Hobbs 29 degrees [facility] R Hobbs 74 degrees [facility] T Hobbs 21 degrees [facility] Diagnosis Normal sinus rhythm Possible Left atrial enlargement Left ventricular hypertrophy ST elevation, consider early repolarization, pericarditis, or injury Marked T wave abnormality consider anterolateral ischemia Confirmed by NICK ULRICH M.D. ([id number]) on 01/30/2025 4:32:43 PM [facility] 01/30/2025 2:25 AM CDT 01/30/2025 4:32 PM CDT Renetta Echols MD ECG ORDERABLES Final Re sult [facility] * eGFR (01/29/2025 10:36 PM CDT) eGFR >90 >=60 mL/min/1. 73 [...] LAB BLOOD ORDERABLES Fin al Result [facility] [address] [facility] Department [place] [address] * Differential, auto (01/29/2025 10:36 PM CDT) Neutrophil abs 5.66 1.50 - 6.50 K/cumm Imm gran abs 0.02 0.00 - 0.10 K/cumm [facility] Lymphocyte abs 0.97 0.80 - 3.30 K/cumm [facility] Monocyte abs 0.65 0.20 - 0.80 K/cumm [facility] Eosinophil abs 0.00 0.00 - 0.50 K/cumm [facility] Basophil abs 0.00 0.00 - 0.10 K/cumm [facility] Neutrophil pct 77.5 % [facility] Comment: Interpretive Data [...] revised on 2017. Lymphocyte pct 13.3 % [facility] Comment: Interpretive Data Percent cell count reference ranges are not reported, since discordance with absolute values may lead to misinterpretation of CBC data. Current Interpretive Data was last revised on 2017. Monocyte pct 8.9 % [facility] Comment: Interpretive Data Percent cell count reference ranges are not reported, since discordance with absolute values may lead to misinterpretation of CBC data. Current Interpretive Data was last revised on 2017. Eosinophil pct 0.0 % [facility] Comment: Interpretive Data Percent cell count reference ranges are not reported, since discordance with absolute values may lead to misinterpretation of CBC data. Current Interpretive Data was last revised on 2017. Basophil pct 0.0 % [facility] Comment: Interpretive Data Percent cell count reference ranges are not reported, since discordance with absolute values may lead to misinterpretation of CBC data. Current Interpretive Data was last revised on 2017. Blood 01/29/2025 10:3 6 PM CDT 01/29/2025 10:38 PM CDT us Renetta Echols MD LAB BLOOD ORDERABLES Fin al Result [facility] [address] [facility] Department [place] [address] * (ABNORMAL) Urinalysis reflex to microscopic and culture Urine (01/29/2025 10:36 PM CDT) Color, ur Yellow Yellow Clarity, ur Clear Clear [facility] Specific gravity, ur 1.025 1.003 - 1.030 [facility] pH, urine 5.5 [facility] Comment: Interpretive Data U rine pH is affected by diet, medications, systemic acid-base disturbances, and renal tubular function. pH may affect urinary stone formation. For example, urine pH below 6.0 may help reduce the tendency for calcium phosphate stones and pH greater than 6.0 may reduce the tendency for uric acid stone formation. Source: [facility] Current Interpretive Data was last revised on 2017 Protein, ur ql Negative Negative [facility] Glucose, ur ql [...] will be performed. [facility] Urine 01/29/2025 10:3 6 PM CDT 01/29/2025 10:38 PM CDT us Renetta Echols MD LAB MICROBIOLOGY - GENER AL ORDERABLES Final Result [place] [address] [facility] Department [place] [address] * CBC with auto differential (01/29/2025 10:36 PM CDT) Pathologist [facility] WBC 7.30 3.80 - 9.90 K/cumm Hgb 13.7 13.0 - 17.5 g/dL [facility] Hct 41.6 38.9 - 50.3 % [facility] Plt 257 150 - 400 K/cumm [facility] MPV 9.7 9.1 - 12.3 fL [facility] RBC 4.88 4.30 - 5.80 M/cumm [facility] MCV 85.2 81.3 - 96.4 fL [facility] MCH 28.1 27.1 - 33.3 pg [facility] MCHC 32.9 32.3 - 35.7 g/dL [facility] RDW CV 13.7 11.1 - 14.9 % [facility] RDW SD 42.6 35.7 - 48.1 fL [facility] NRBC abs 0.00 0.00 - 0.01 K/cumm [facility] Blood Venous blood specimen / Unknown 01/29/2025 10:36 PM CDT 01/29/2025 10:38 PM CDT Renetta Echols MD LAB BLOOD ORDERABLES Fin al Result Performing Organization Address [facility] de Phone Number [address] [employer] [place] [address] * (ABNORMAL) Urinalysis, microscopic only (01/29/2025 10:36 PM CDT) WBC, ur 0-5 0 - 5 /HPF RBC, ur 6-10(A) 0 - 2 /HPF [facility] Mucous, ur Present(A) [facility] Culture Reflex Comment Reflex conditions for urine culture (WBC >10) not met. [facility] Urine 01/29/2025 10:3 6 PM CDT 01/29/2025 10:38 PM CDT Renetta Echols MD LAB URINE ORDERABLES Fin al Result Performing Organization Address [facility] de Phone Number [address] [address] * Lipase (01/29/2025 10:36 PM CDT) Lipase 24 10 - 99 Units/L Blood Venous blood specimen / Unknown 01/29/2025 10:36 PM CDT 01/29/2025 10:38 PM CDT Renetta Echols MD LAB BLOOD ORDERABLES Fin al Result Performing Organization Address [facility] de Phone Number [facility] [address] [facility] Department [place] [address] * (ABNORMAL) Comprehensive metabolic panel (01/29/2025 10:36 PM CDT) Sodium 137 135 - 145 mmol/L Potassium, pl 4.3 3.3 - 4.9 mmol/L [facility] Chloride 104 97 - 110 mmol/L [facility] CO2 21(L) 22 - 32 mmol/L [facility] Anion gap 12 2 - 15 mmol/L [facility] BUN 13 6 - 25 mg/dL [facility] Creatinine 1.04 0.80 - 1.30 mg/dL [facility] Glucose 121 70 - 199 mg/dL [facility] [...] 10.3 mg/dL [facility] Bilirubin, total 0.4 0.1 - 1.2 mg/dL [facility] Protein, pl 7.9 6.5 - 8.5 g/dL [facility] Albumin 4.8 3.5 - 5.0 g/dL [facility] Alk phos 68 40 - 130 Units/L [facility] ALT 29 7 - 55 Units/L [facility] AST 25 10 - 50 Units/L [facility] Blood 01/29/2025 10:3 6 PM CDT 01/29/2025 10:38 PM CDT us Renetta Echols MD LAB BLOOD ORDERABLES Fin al Result [facility] [address] [facility] Department [place] [address] * TRANSTHORACIC ECHO (TTE) COMPLETE W DOPPLER/CF WO CONTRAST (01/29/2025 7:59 AM CDT) EF Mod BP 58 % CONS SCIMAGE Anatomical Region Laterality Modality Ultrasound 01/29/2025 7:04 AM CDT Narrative 01/29/2025 9:10 AM CDT [facility] [place] [address] Transthoracic Echocardiographic Report Patient Name: KIMBERLEY ESCOBAR L : 1990 (34y 10m) Gender: M Study Date: 01/29/2025 07:04:02 AM Ht(Inch): 71 Wt(Lb): 173.94 BSA: 1.99 Deburrer Machine: Manas Lopez RDCS Location: [id number] Order Provider: ARLETH JOHNSON Heart Rate: 51 [...] No change compared to prior study on: 05/15/21. ATTESTATION: I have personally reviewed and interpreted [...] Procedure Note Triston Mosher MD - 01/29/2025 [facility] [place] [address] Transthoracic Echocardiographic Report Patient Name: KIMBERLEY ESCOBAR L : 1990 (34y 10m) Gender: M Study Date: 01/29/2025 07:04:02 AM Ht(Inch): 71 Wt(Lb): 173.94 BSA: 1.99 Deburrer Machine: Manas Lopez RDCS Location: [id number] Order Provider: ARLETH DIXON Heart Rate: 51 [...] LA Length 4C 6.28 cm MV Decel [id number] msec [ 104.00 - 258.00 ] LA [...] Trop I hs delta 1 ng/L [facility] Trop I hs interp Insignificant [facility] Blood 01/28/2025 2:33 AM CDT 01/28/2025 3:48 AM CDT us Navarro Alston MD PhD LAB BLOOD ORDERABLES F inal Result [facility] Department [place] [address] * XR Chest PA Lateral 2 Views [...] 2hr, 4hr, 6hr) (01/28/2025 12:33 AM CDT) Trop I hs 23 <=35 ng/L Comment: Interpretive Data For further hscTnI resources including the diagnostic algorithm and an aid in interpretation, copy and paste this link: https://bjhlab.testcatalog.org/show/hsTrop-1 Current Interpretive Data last revised 2020. Blood 01/28/2025 12:3 3 AM CDT 01/28/2025 12:53 AM CDT us Navarro Alston MD PhD LAB BLOOD ORDERABLES F inal Result [facility] [place] [address] * eGFR (01/28/2025 12:33 AM CDT) Pathologist [facility] eGFR 87 >=60 mL/min/1. 73 m2 Comment: [...] 3 AM CDT 01/28/2025 12:53 AM CDT Dara Li MD LAB BLOOD ORDERABLES Vickie l Result Performing Organization Address [facility] Co de Phone Number [facility] [place] [address] * Differential, auto (01/28/2025 12:33 AM CDT) Pathologist [facility] Neutrophil abs 2.75 1.50 - 6.50 K/cumm Imm gran abs 0.01 0.00 - 0.10 K/cumm [facility] Lymphocyte abs 1.65 0.80 - 3.30 K/cumm [facility] Monocyte abs 0.58 0.20 - 0.80 K/cumm [facility] Eosinophil abs 0.27 0.00 - 0.50 K/cumm [facility] Basophil abs 0.01 0.00 - 0.10 K/cumm [facility] Neutrophil pct 52.2 % [facility] Comment: Interpretive Data Percent cell count reference ranges are not reported, since discordance with absolute values may lead to misinterpretation of CBC data. Current Interpretive Data was last revised on 2017. Imm gran pct 0.2 % [facility] Comment: Interpretive Data Percent cell count reference ranges are not reported, since discordance with absolute values may lead to misinterpretation of CBC data. Current Interpretive Data was last revised on 2017. Lymphocyte pct 31.3 % [facility] Comment: Interpretive Data Percent cell count reference ranges are not reported, since discordance with absolute values may lead to misinterpretation of CBC data. Current Interpretive Data was last revised on 2017. Monocyte pct 11.0 % [facility] Comment: Interpretive Data Percent cell count reference ranges are not reported, since discordance with absolute values may lead to misinterpretation of CBC data. Current Interpretive Data was last revised on 2017. Eosinophil pct 5.1 % [facility] Comment: Interpretive Data Percent cell count reference ranges are not reported, since discordance with absolute values may lead to misinterpretation of CBC data. Current Interpretive Data was last revised on 2017. Basophil pct 0.2 % [facility] Comment: Interpretive Data Percent cell count reference ranges are not reported, since discordance with absolute values may lead to misinterpretation of CBC data. Current Interpretive Data was last revised on 2017. Blood 01/28/2025 12:3 3 AM CDT 01/28/2025 12:53 AM CDT us Navarro Alston MD PhD LAB BLOOD ORDERABLES F inal Result [facility] S[facility]ER [facility] Department [place] [address] * (ABNORMAL) CBC with auto differential (01/28/2025 12:33 AM CDT) WBC 5.27 3.80 - 9.90 K/cumm Hgb 12.9(L) 13.0 - 17.5 g/dL [facility] Hct 39.0 38.9 - 50.3 % [facility] Plt 232 150 - 400 K/cumm [facility] MPV 9.8 9.1 - 12.3 fL [facility] RBC 4.56 4.30 - 5.80 M/cumm [facility] MCV 85.5 81.3 - 96.4 fL [facility] MCH 28.3 27.1 - 33.3 pg [facility] MCHC 33.1 32.3 - 35.7 g/dL [facility] RDW CV 14.5 11.1 - 14.9 % [facility] RDW SD 44.2 35.7 - 48.1 fL [facility] NRBC abs 0.00 0.00 - 0.01 K/cumm [facility] Blood 01/28/2025 12:3 3 AM CDT 01/28/2025 12:53 AM CDT Navarro Alston MD PhD LAB BLOOD ORDERABLES F inal Result Performing Organization Address City/[facility]/ZIP Co de Phone Number [facility] [place] [employer] [place] [address] * CRP (acute phase) (01/28/2025 12:33 AM CDT) Pathologist [facility] CRP <0.5 <=10.0 mg/L Blood 01/28/2025 12:3 3 AM CDT 01/28/2025 12:53 AM CDT Navarro Alston MD PhD LAB BLOOD ORDERABLES F inal Result Performing Organization Address City/[facility]/ZIP Co de Phone Number [facility] [place] [employer] [place] [address] * Comprehensive metabolic panel (01/28/2025 12:33 AM CDT) Sodium 142 135 - 145 mmol/L Potassium, pl 4.1 3.3 - 4.9 mmol/L [facility] Chloride 109 97 - 110 mmol/L [facility] CO2 24 22 - 32 mmol/L [facility] Anion gap 9 2 - 15 mmol/L [facility] BUN 10 6 - 25 mg/dL [facility] Creatinine 1.14 0.80 - 1.30 mg/dL [facility] Glucose 150 70 - 199 mg/dL [facility] Comment: Interpretive Data Fasting glucose >/= [...] Calcium 9.4 8.5 - 10.3 mg/dL [facility] Bilirubin, total 0.3 0.1 - 1.2 mg/dL [facility] Protein, pl 7.2 6.5 - 8.5 g/dL [facility] Albumin 4.0 3.5 - 5.0 g/dL [facility] Alk phos 65 40 - 130 Units/L [facility] ALT 45 7 - 55 Units/L [facility] AST 41 10 - 50 Units/L [facility] Blood 01/28/2025 12:3 3 AM CDT 01/28/2025 12:53 AM CDT us Rupert Kaplan MD LAB BLOOD ORDERABLES Final Result [facility] Department of Laboratories [place], [place] [id number] * (ABNORMAL) ECG 12-LEAD (01/28/2025 12:14 AM CDT) Narrative [facility] - 01/28/2025 12:14 AM CDT Rupert Kaplan MD 01/28/2025 12:15 AM ECG 12 lead Date/Time: 01/28/2025 12:14 AM Performed by: Rupert Kaplan MD Authorized by: Dara Li MD Interpretation: Interpretation: abnormal Comments: Sinus rhythm, heart rate 69. Borderline right axis. Normal intervals. Diffuse ST elevations with ST-depression in AVR. Mild diffuse SD depression. Compared with prior, 01/13/2025, relatively unchanged. Most likely pericarditis. us Rupert Kaplan MD ECG ORDERABLES Final Result [facility] * eGFR (01/18/2025 1:39 AM CDT) eGFR [...] BLOOD ORDERABLES Final Resul t [facility] ARREOLA ARCHER) [address] [facility] [place] [address] * Differential, auto (01/18/2025 1:39 AM CDT) [...] LAB BLOOD ORDERABLES Final Resul t [facility] [address] [facility] [place] [address] * CBC with auto differential (01/18/2025 1:39 [...] - 0.01 K/cumm [facility] ([facility]) Blood 01/18/2025 1:39 AM CDT 01/18/2025 1:43 AM CDT us Luana Beckett MD LAB BLOOD ORDERABLES Final Resul t [facility] ([facility]) [address] [facility] [place] [employer] [place] [address] * Basic metabolic panel (01/18/2025 1:39 AM CDT) Sodium 142 135 - 145 mmol/L Potassium, pl 3.7 3.3 - 4.9 mmol/L [facility] Chloride 106 97 - 110 mmol/L [facility] ([facility]) CO2 23 22 - 32 mmol/L [facility] ([facility]) Anion gap 13 2 - 15 mmol/L [facility] ([facility] BUN 14 6 - 25 mg/dL [facility] ([facility]) Creatinine 1.10 0.80 - 1.30 mg/dL [facility] ([facility]) Glucose 141 70 - 199 mg/dL [facility] ([facility] Comment: Interpretive Data Fasting glucose >/= 126 [...] 2022. Calcium 8.9 8.5 - 10.3 mg/dL [facility] ([facility] Blood 01/18/2025 1:39 AM CDT 01/18/2025 1:43 AM CDT us Luana Beckett MD LAB BLOOD ORDERABLES Final Resul t [facility] ([facility]) [address] [facility] Department of Laboratories [place], [place] [id number] * Troponin T high-sensitivity 2-hour (01/13/2025 10:45 AM CDT) Trop T hs <6 <=22 ng/L Comment: Interpretive Data For further hscTnT resources including the diagnostic algorithm and an aid in interpretation, copy and paste this link: https://nrl.testcatalog.org/show/hsTrop Current Interpretive Data last revised 2020. Trop T hs delta 0 ng/L [facility] Trop T hs interp Insignificant [facility] Blood 01/13/2025 10:4 5 AM CDT 01/13/2025 11:08 AM CDT Ray Murphy MD LAB BLOOD ORDERABLES Final Resul t Performing Organization Address [facility] Co de Phone Number [facility]LLA [address] [address] * Influenza A/B, RSV, and COVID-19 PCR Nasopharyngeal (01/13/2025 10:45 AM CDT) Pathologist [facility] COVID-19 RNA Negative Negative Influenza A RNA Negative Negative [facility] Influenza B RNA Negative Negative [facility] RSV RNA Negative Negative [facility] Comment: Interpretive data: Testing performed by [facility]. This test is performed using the [employer] Xpert Xpress CoV-2/Flu/RSV plus assay. This is a multiplex, real-time reverse transcriptase PCR assay intended for the qualitative detection of nucleic acid from SARS-CoV-2, influenza A, influenza B, and respiratory syncytial virus. This assay has been cleared by the [place] Food and Drug administration. The performance characteristics have been verified by the [facility]. Results must be considered in the clinical context, and a negative result does not rule out infection. Interpretive Data last revised 2023 Nasopharyngeal 01/13/2025 10 :45 AM CDT 01/13/2025 10:49 AM CDT Narrative [facility] - 01/13/2025 11:53 AM CDT Is the Patient experiencing symptoms consistent with COVID?->Unknown Ray Murphy MD LAB MICROBIOLOGY - GENERAL ORDER [place] Final Result Performing Organization Address [facility] Co de Phone Number [facility] [place] [address] * XR Chest 1 Vw Portable (if [...] 10:56 AM - Electronically signed by Todd SHAHID T: Report ID: [id number] Reading Location: [place] [address] Procedure Note Serjio Castro MD - 01/13/2025 [...] Todd Castro M.D. ZEHRA T: Report ID: [id number] Reading Location: [place] [address] us Ray Murphy MD IMG XR PROCEDURES Final Result * Erythrocyte sedimentation rate (01/13/2025 10:45 AM CDT) Pathologist [facility] Erythrocyte sedimentation rate 12 1 - 15 mm/hr Blood 01/13/2025 10:4 5 AM CDT 01/13/2025 11:08 AM CDT us Ray Murphy MD LAB BLOOD ORDERABLES Final Resul t Performing Organization Address [facility] Co de Phone Number [address] [address] * CRP (acute phase) (01/13/2025 10:45 AM CDT) Pathologist [facility] CRP 0.5 <=10.0 mg/L Blood 01/13/2025 10:4 5 AM CDT 01/13/2025 11:08 AM CDT us Ray Murphy MD LAB BLOOD ORDERABLES Final Resul t Performing Organization Address [facility] de Phone Number [address] [address] * ECG 12 lead (01/13/2025 9:08 AM CDT) [facility] Ventricular Rate EKG/Min 73 BPM [facility] Atrial Rate 73 BPM [facility] SD-Interval (MSEC) 162 ms [facility] QRS-Interval (MSEC) 104 ms [facility] QT-Interval (MSEC) 362 ms [facility] QTc 398 ms [facility] P Hobbs 55 degrees [facility] R Hobbs 87 degrees [facility] T Hobbs 68 degrees [facility] Diagnosis Normal sinus rhythm with sinus arrhythmia Voltage criteria for left ventricular hypertrophy likely pericarditis Confirmed by NICK ULRICH M.D. ([id number]) on 01/13/2025 2:20:07 PM [facility] 01/13/2025 9:08 AM CDT 01/13/2025 2:20 PM CDT us Ray Murphy MD ECG ORDERABLES Final Result Performing Organization Address [facility]/ZIP Co de Phone Number [facility] * Troponin T high-sensitivity series (baseline, 2hr, [...] LAB BLOOD ORDERABLES Final Resul t PRISCILLA [address] Department [place] [address] * eGFR (01/13/2025 8:59 AM CDT) eGFR >90 >=60 mL/min/1. 73 [...] MD LAB BLOOD ORDERABLES Final Resul t [facility] [address] [facility] Department [place] [address] * (ABNORMAL) Differential, auto (01/13/2025 8:59 AM CDT) Neutrophil abs 5.23 1.50 - 6.50 K/cumm Imm gran abs 0.02 0.00 - 0.10 K/cumm [facility] Lymphocyte abs 0.51(L) 0.80 - 3.30 K/cumm [facility] Monocyte abs 0.20 0.20 - 0.80 K/cumm [facility] Eosinophil abs 0.00 0.00 - 0.50 K/cumm [facility] Basophil abs 0.01 0.00 - 0.10 K/cumm [facility] Neutrophil pct 87.6 % [facility] Comment: Interpretive Data [...] revised on 2017. Lymphocyte pct 8.5 % [facility] Comment: Interpretive Data Percent cell count reference ranges are not reported, since discordance with absolute values may lead to misinterpretation of CBC data. Current Interpretive Data was last revised on 2017. Monocyte pct 3.4 % [facility] Comment: Interpretive Data Percent cell count reference ranges are not reported, since discordance with absolute values may lead to misinterpretation of CBC data. Current Interpretive Data was last revised on 2017. Eosinophil pct 0.0 % [facility] Comment: Interpretive Data Percent cell count reference ranges are not reported, since discordance with absolute values may lead to misinterpretation of CBC data. Current Interpretive Data was last revised on 2017. Basophil pct 0.2 % [facility] Comment: Interpretive Data Percent cell count reference ranges are not reported, since discordance with absolute values may lead to misinterpretation of CBC data. Current Interpretive Data was last revised on 2017. Blood 01/13/2025 8:59 AM CDT 01/13/2025 9:02 AM CDT Ray Murphy MD LAB BLOOD ORDERABLES Final Resul t Performing Organization Address [facility] de Phone Number [facility] [address] [employer] [place] [address] * (ABNORMAL) CBC with auto differential (01/13/2025 8:59 AM CDT) WBC 5.97 3.80 - 9.90 K/cumm Hgb 13.4 13.0 - 17.5 g/dL [facility] Hct 41.7 38.9 - 50.3 % [facility] Plt 255 150 - 400 K/cumm [facility] MPV 9.3 9.1 - 12.3 fL [facility] RBC 4.78 4.30 - 5.80 M/cumm [facility] MCV 87.2 81.3 - 96.4 fL [facility] MCH 28.0 27.1 - 33.3 pg [facility] MCHC 32.1(L) 32.3 - 35.7 g/dL [facility] RDW CV 14.0 11.1 - 14.9 % [facility] RDW SD 44.2 35.7 - 48.1 fL [facility] NRBC abs 0.00 0.00 - 0.01 K/cumm [facility] Blood Venous blood specimen / Unknown 01/13/2025 8:59 AM CDT 01/13/2025 9:02 AM CDT us Ray Murphy MD LAB BLOOD ORDERABLES Final Resul t Performing Organization Address [facility] Co de Phone Number [address] [employer] [place] [address] * (ABNORMAL) Comprehensive metabolic panel (01/13/2025 8:59 AM CDT) Sodium 138 135 - 145 mmol/L Potassium, pl 4.5 3.3 - 4.9 mmol/L [facility] Chloride 104 97 - 110 mmol/L [facility] CO2 21(L) 22 - 32 mmol/L [facility] Anion gap 13 2 - 15 mmol/L [facility] BUN 9 6 - 25 mg/dL [facility] Creatinine 0.98 0.80 - 1.30 mg/dL [facility] Glucose 126 70 - 199 mg/dL [facility] [...] 2022. Calcium 9.6 8.5 - 10.3 mg/dL [facility] Bilirubin, total 0.3 0.1 - 1.2 mg/dL [facility] Protein, pl 7.7 6.5 - 8.5 g/dL [facility] Albumin 4.5 3.5 - 5.0 g/dL [facility] Alk phos 64 40 - 130 Units/L [facility] ALT 63(H) 7 - 55 Units/L [facility] AST 42 10 - 50 Units/L [facility] Blood 01/13/2025 8:59 AM CDT 01/13/2025 9:02 AM CDT us Ray Murphy MD LAB BLOOD ORDERABLES Final Resul t [facility] [address] [facility] Department [place] [address] * (ABNORMAL) Urinalysis reflex to microscopic and culture Urine (01/06/2025 12:40 AM CDT) Color, ur Yellow Yellow Clarity, ur Clear Clear [facility] Specific gravity, ur 1.023 1.003 - 1.030 [facility] ([place]) pH, urine 5.5 [facility] ([place]) Comment: Interpretive Data U rine pH is affected by diet, medications, systemic acid-base disturbances, and renal tubular function. pH may affect urinary stone formation. For example, urine pH below 6.0 may help reduce the tendency for calcium phosphate stones and pH greater than 6.0 may reduce the tendency for uric acid stone formation. Source: [facility] Current Interpretive Data was last revised [...] DERABLES Final Result [facility] ([place]) [address] [facility] Department [place] [address] * (ABNORMAL) Drugs of Abuse Screen, Urine [...] AM CDT 01/06/2025 12:58 AM CDT Narrative [facility] ([place]) - 01/06/2025 1:24 AM CDT Drug of Abuse screening is performed by immunoassay for medical purposes only. This is not to be used for Pain Management purposes. us Jose Sullivan MD LAB URINE ORDERABLES Final Re sult [facility] ([place]) [address] [facility] Department of Laboratories [place], [place] [id number] * (ABNORMAL) Urinalysis, microscopic only (01/06/2025 12:40 AM CDT) WBC, ur 11-20(A) 0 - 5 /HPF RBC, ur 6-10(A) 0 - 2 /HPF [facility] ([place]) Epithelial cells, squamous, ur 1-5 0 - 5 /HPF [facility] ([place]) Mucous, ur Present(A) [facility] A ([place]) Hyaline casts, ur 1-5 0 - 10 /LPF [facility] ([place]) Culture Reflex Comment Reflex to urine culture will be performed. [facility] ([place]) Urine 01/06/2025 12:4 0 AM CDT 01/06/2025 12:58 AM CDT us Jose Sullivan MD LAB URINE ORDERABLES Final Re sult [facility] ([place]) [address] [facility] [place] [address] * Urine culture Urine (01/06/2025 12:40 AM CDT) Report Final Report: Less than 100,000 colonies/mL (clinically insignificant growth based on current clinical standards) Comment:Testing performed by : [facility], [address] [place] [address] Organism (CLINICALLY INSIGNIFICANT GROWTH [facility] ([place]) Urine 01/06/2025 12:4 0 AM CDT 01/06/2025 6:07 AM CDT Narrative [facility] ([place]) - 01/07/2025 12:32 PM CDT Urine culture reflexed based upon urinalysis results. Testing performed by [facility] Microbiology Laboratory ([phone]) us Jose Sullivan MD LAB MICROBIOLOGY - GENERAL OR DERABLES Final Result [facility] ([place]) [address] [facility] [employer] [place] [address] * COVID-19 Coronavirus RNA Nasopharyngeal (01/06/2025 12:32 AM CDT) COVID-19 RNA Negative Negative Nasopharyngeal 01/06/2025 12 :32 AM CDT 01/06/2025 12:47 AM CDT Narrative [facility] ([place]) - 01/06/2025 1:25 AM CDT Is the patient experiencing any symptoms consistent with COVID (eg. Fever, cough, shortness of breath)?->No What is the reason for testing?->Screening for semi-private room placement Interpretive data: Testing performed by [facility]. This test is performed using the [employer] Xpert Xpress CoV-2 plus assay. This is a real-time RT-PCR test intended for the qualitative detection of nucleic acid from the SARS-CoV-2. This assay has been cleared by the [place] Food and Drug administration. The performance characteristics have been verified by [facility]. Results must be considered in the clinical context, and a negative result does not rule out infection. Interpretive data last revised 2024. Interpretive data: Testing performed by [facility]. This test is performed using the [employer] Xpert Xpress CoV-2 plus assay. This is a real-time RT-PCR test intended for the qualitative detection of nucleic acid from the SARS-CoV-2. This assay has been cleared by the [place] Food and Drug administration. The performance characteristics have been verified by [facility]. Results must be considered in the clinical context, and a negative result does not rule out infection. Interpretive data last revised 2024. us Jose Sullivan MD LAB MICROBIOLOGY - GENERAL OR DERABLES Final Result [facility] ([place]) [address] [facility] Department [place] [address] * eGFR (01/06/2025 12:32 AM CDT) eGFR [...] MD LAB BLOOD ORDERABLES Final Re sult [facility] ([place]) [address] [facility] Department [place] [address] * Differential, auto (01/06/2025 12:32 AM CDT) [...] revised on 2017. Basophil pct 0.4 % [facility] ([place]) Comment: Interpretive Data Percent cell count reference ranges are not reported, since discordance with absolute values may lead to misinterpretation of CBC data. Current Interpretive Data was last revised on 2017. Blood 01/06/2025 12:3 2 AM CDT 01/06/2025 12:47 AM CDT us Jose Sullivan MD LAB BLOOD ORDERABLES Final Re sult Performing Organization Address City/[facility]/ZIP Co de Phone Number PRISCILLA [facility] ([place]) [address] [facility] [place] [employer] [place] [address] * Thyroid Function [place] (01/06/2025 12:32 AM CDT) TSH 1.00 0.30 - 4.20 mcIUnit/mL Blood 01/06/2025 12:3 2 AM CDT 01/06/2025 12:47 AM CDT Jose Sullivan MD LAB BLOOD ORDERABLES Final Re sult Performing Organization Address City/[facility]/ZIP Co de Phone Number PRISCILLA [facility] ([place]) 1 [facility] [employer] [place] [address] * CBC with auto differential (01/06/2025 12:32 AM CDT) WBC 7.86 3.80 - 9.90 K/cumm Hgb 13.4 13.0 - 17.5 g/dL [facility] Hct 41.2 38.9 - 50.3 % [facility] ([place]) Plt 259 150 - 400 K/cumm [facility] ([place]) MPV 10.2 9.1 - 12.3 fL [facility] ([place]) RBC 4.65 4.30 - 5.80 M/cumm [facility] ([place]) MCV 88.6 81.3 - 96.4 fL [facility] ([place]) MCH 28.8 27.1 - 33.3 pg [facility] ([place]) MCHC 32.5 32.3 - 35.7 g/dL [facility] RDW CV 13.5 11.1 - 14.9 % [facility] RDW SD 43.3 35.7 - 48.1 fL [facility] ([place]) NRBC abs 0.00 0.00 - 0.01 K/cumm [facility] ([place] Blood Venous blood specimen / Unknown 01/06/2025 12:32 AM CDT 01/06/2025 12:47 AM CDT us Jose Sullivan MD LAB BLOOD ORDERABLES Final Re sult Performing Organization Address City/[facility]/ZIP Co de Phone Number PRISCILLA Johnson[facility]) [address] [facility] [place] [place] [address] * Ethanol (01/06/2025 12:32 AM CDT) Ethanol <10 <=10 mg/dL Comment: Interpretive Data Legal limit of intoxication > or = 80 mg/dL Levels > or = 400 mg/dL are potentially TOXIC. Current interpretive data was last revised on 2018. Blood 01/06/2025 12:3 2 AM CDT 01/06/2025 12:47 AM CDT us Jose Sullivan MD LAB BLOOD ORDERABLES Final Re sult [facility] ([place]) [address] [facility] Department [place] [address] * (ABNORMAL) Comprehensive metabolic panel (01/06/2025 12:32 [...] BLOOD ORDERABLES Final Re sult [facility] ([place]) [address] [facility] [place] [address] * eGFR (01/01/2025 10:28 PM CDT) eGFR [...] LAB BLOOD ORDERABLES Final R esult [facility] [address] [facility] Department [place] [address] * (ABNORMAL) Differential, auto (01/01/2025 10:28 PM CDT) Neutrophil abs 4.69 1.50 - 6.50 K/cumm Imm gran abs 0.02 0.00 - 0.10 K/cumm [facility] Lymphocyte abs 1.78 0.80 - 3.30 K/cumm [facility] Monocyte abs 0.87(H) 0.20 - 0.80 K/cumm [facility] Eosinophil abs 0.17 0.00 - 0.50 K/cumm [facility] Basophil abs 0.03 0.00 - 0.10 K/cumm [facility] Neutrophil pct 62.1 % [facility] Comment: Interpretive Data Percent cell count reference ranges are not reported, since discordance with absolute values may lead to misinterpretation of CBC data. Current Interpretive Data was last revised on 2017. Imm gran pct 0.3 % [facility] Comment: Interpretive Data Percent cell count reference ranges are not reported, since discordance with absolute values may lead to misinterpretation of CBC data. Current Interpretive Data was last revised on 2017. Lymphocyte pct 23.5 % [facility] Comment: Interpretive Data Percent cell count reference ranges are not reported, since discordance with absolute values may lead to misinterpretation of CBC data. Current Interpretive Data was last revised on 2017. Monocyte pct 11.5 % [facility] Comment: Interpretive Data Percent cell count reference ranges are not reported, since discordance with absolute values may lead to misinterpretation of CBC data. Current Interpretive Data was last revised on 2017. Eosinophil pct 2.2 % [facility] Comment: Interpretive Data Percent cell count reference ranges are not reported, since discordance with absolute values may lead to misinterpretation of CBC data. Current Interpretive Data was last revised on 2017. Basophil pct 0.4 % [facility] Comment: Interpretive Data Percent cell count reference ranges are not reported, since discordance with absolute values may lead to misinterpretation of CBC data. Current Interpretive Data was last revised on 2017. Blood 01/01/2025 10:2 8 PM CDT 01/01/2025 10:35 PM CDT us Irina Yeager MD LAB BLOOD ORDERABLES Final R esult [facility] [address] [facility] Department [place] [address] * (ABNORMAL) Urinalysis reflex to microscopic (01/01/2025 10:28 PM CDT) Color, ur Yellow Yellow Clarity, ur Clear Clear [facility] Specific gravity, ur 1.027 1.003 - 1.030 [facility] pH, urine 6.0 [facility] Comment: Interpretive Data U rine pH is affected by diet, medications, systemic acid-base disturbances, and renal tubular function. pH may affect urinary stone formation. For example, urine pH below 6.0 may help reduce the tendency for calcium phosphate stones and pH greater than 6.0 may reduce the tendency for uric acid stone formation. Source: [facility] Current Interpretive Data was last revised on 2017 Protein, ur ql 1+(A) Negative [facility] Glucose, ur ql Negative Negative [facility] Ketones, ur Negative Negative [facility] Bilirubin, ur Negative Negative [facility] Blood, ur 2+(A) Negative [facility] Urobilinogen, ur <2.0 <2.0 mg/dL [facility] Nitrite, ur Negative Negative [facility] Leukocyte esterase, ur Negative Negative [facility] UA reflex comment Reflex to microscopic UA will be performed. [facility] Urine 01/01/2025 10:2 8 PM CDT 01/01/2025 10:33 PM CDT Irina Yeager MD LAB URINE ORDERABLES Final R esult [facility] [address] [facility] Department [place] [address] * CBC with auto differential (01/01/2025 10:28 PM CDT) WBC 7.56 3.80 - 9.90 K/cumm Hgb 14.8 13.0 - 17.5 g/dL [facility] Hct 45.4 38.9 - 50.3 % [facility] Plt 308 150 - 400 K/cumm [facility] MPV 10.1 9.1 - 12.3 fL [facility] RBC 5.26 4.30 - 5.80 M/cumm [facility] MCV 86.3 81.3 - 96.4 fL [facility] MCH 28.1 27.1 - 33.3 pg [facility] MCHC 32.6 32.3 - 35.7 g/dL [facility] RDW CV 13.4 11.1 - 14.9 % [facility] RDW SD 42.3 35.7 - 48.1 fL [facility] NRBC abs 0.00 0.00 - 0.01 K/cumm [facility] Blood Venous blood specimen / Unknown 01/01/2025 10:28 PM CDT 01/01/2025 10:35 PM CDT Irina Yeager MD LAB BLOOD ORDERABLES Final R esult [facility] Department [place] [address] * (ABNORMAL) Urinalysis, microscopic only (01/01/2025 10:28 PM CDT) WBC, ur 0-5 0 - 5 /HPF RBC, ur >50(A) 0 - 2 /HPF [facility] Mucous, ur Present(A) [facility] Urine 01/01/2025 10:2 8 PM CDT 01/01/2025 10:33 PM CDT Irina Yeager MD LAB URINE ORDERABLES Final R esult [facility] [place] [employer] [place] [address] * Lipase (01/01/2025 10:28 PM CDT) Lipase 26 10 - 99 Units/L Blood Venous blood specimen / Unknown 01/01/2025 10:28 PM CDT 01/01/2025 10:34 PM CDT Result [facility] Irina Yeager MD LAB BLOOD ORDERABLES Final R esult Performing Organization Address City/[facility] Co de Phone Number [facility] Department [place] [address] * (ABNORMAL) Creatine kinase (CK), total (01/01/2025 10:28 PM CDT) [facility] CK 632(H) 40 - 300 Units/L Blood 01/01/2025 10:2 8 PM CDT 01/01/2025 10:34 PM CDT Result [facility] Irina Yeager MD LAB BLOOD ORDERABLES Final R esult Performing Organization Address [facility] [place] [address] * Acetaminophen level (01/01/2025 10:28 PM CDT) [facility] Acetaminophen <5 <=5 mcg/mL Comment: Interpretive Data Significant hepatic injury may occur and treatment with n-acetyl cysteine is generally recommended if the acetaminophen level exceeds: 150 mcg/mL at 4 hours after ingestion 75 mcg/mL at 8 hours after ingestion 38 mcg/mL at 12 hours after ingestion 19 mcg/mL at 16 hours after ingestion Consult toxicology or poison control ([phone]) for unknown ingestion time. Current interpretive data was last revised 2023. Blood 01/01/2025 10:2 8 PM CDT 01/01/2025 10:34 PM CDT Maye Pradhan NP LAB BLOOD ORDERABLES Final Result Performing Organization Address [facility] Co de Phone Number [facility] [place] [address] * Salicylate level (01/01/2025 10:28 PM CDT) Pathologist [facility] Salicylate <9.0 <=9.0 mg/dL Comment: Interpretive Data Toxic: 30 mg/dL or greater. Current interpretive data was last revised 2023. Blood 01/01/2025 10:2 8 PM CDT 01/01/2025 10:34 PM CDT Maye Pradhan [employer] LAB BLOOD ORDERABLES Final Result Performing Organization Address [facility] de Phone Number [facility] Department [place] [address] * (ABNORMAL) Valproic acid level, total (01/01/2025 10:28 PM CDT) [facility] Valproic Acid <15.0(L) 50.0 - 100.0 [...] BLOOD ORDERABLES Final Result Performing Organization Address [facility] de Phone Number [facility] Department [place] [address] * Comprehensive metabolic panel (01/01/2025 10:28 PM CDT) [facility] Sodium 141 135 - 145 mmol/L Potassium, pl 4.0 3.3 - 4.9 mmol/L [facility] Comment:Hemolyzed; Potassium value may be falsely elevated by as much as 0.3-0.5 mmol/L. Suggest redraw and reanalysis. Chloride 105 97 - 110 mmol/L [facility] CO2 26 22 - 32 mmol/L [facility] Anion gap 10 2 - 15 mmol/L [facility] BUN 10 6 - 25 mg/dL [facility] Creatinine 1.24 0.80 - 1.30 mg/dL [facility] Glucose 123 70 - 199 mg/dL [facility] Comment: Interpretive Data Fasting glucose >/= [...] 2022. Calcium 9.8 8.5 - 10.3 mg/dL [facility] Bilirubin, total 0.2 0.1 - 1.2 mg/dL [facility] Protein, pl 8.1 6.5 - 8.5 g/dL [facility] Albumin 4.3 3.5 - 5.0 g/dL [facility] Alk phos 78 40 - 130 Units/L [facility] ALT 40 7 - 55 Units/L [facility] AST 47 10 - 50 Units/L [facility] Comment:Hemolyzed; result ma y be falsely elevated Blood 01/01/2025 10:2 8 PM CDT 01/01/2025 10:34 PM CDT Irina Yeager MD LAB BLOOD ORDERABLES Final R esult [facility] Department [place] [address] * ANUSHKA screen w/rflx FLIP+dsDNA (12/30/2024 11:56 [...] revised on 2020. Testing performed by: [facility], [address] [place]., [address] Blood 12/30/2024 11:5 6 AM CDT 12/30/2024 3:00 PM CDT us Navarro Zuleta Jr., MD LAB BLOOD ORDERABLE S Final Result Performing Organization Address [facility] Co de Phone Number [facility] [address] [place] [address] [employer] [place] [address] * HIV 1/2 Antibody plus p24 Antigen Blood (12/30/2024 11:56 AM CDT) HIV 1/2 ab + p24 ag Nonreactive Nonreactive Comment: Nonreactive for HIV-1 antigen and HIV-1/HIV-2 antibodies. No laboratory evidence of HIV infection. If acute HIV infection is suspected, consider testing for HIV-1 RNA. Testing performed by: [facility], [address] [place] [address], [id number] Blood 12/30/2024 11:5 6 AM CDT 12/30/2024 1:50 PM CDT us Navarro Zuleta Jr., MD LAB MICROBIOLOGY - GENERAL ORDERABLES Final Result Performing Organization Address City/[facility]/ZIP Co de Phone Number PRISCILLA [facility] (ARCHER) 1 [place] [address] * RPR Blood (12/30/2024 11:56 AM CDT) RPR Nonreactive Nonreactive Comment:Testing performed by : [address] [address] Blood 12/30/2024 11:5 6 AM CDT 12/30/2024 1:50 PM CDT us Navarro Zuleta Jr., MD LAB MICROBIOLOGY - GENERAL ORDERABLES Final Result Performing Organization Address City/[facility]/ZIP Co de Phone Number PRISCILLA ARREOLA (ARCHER) 1 [facility] [place] [employer] [place] [address] * Troponin T high-sensitivity 6-hour (12/30/2024 5:09 AM CDT) Trop T hs 20 <=22 ng/L Comment: Interpretive Data For further hscTnT resources including the diagnostic algorithm and an aid in interpretation, copy and paste this link: https://nrl.testcatalog.org/show/hsTrop Current Interpretive Data last revised 2020. Trop T hs delta -9 ng/L [facility]ERN ER [facility] (ARCHER) Trop T hs interp Equivocal CER NER [facility] (ARCHER) Blood 12/30/2024 5:09 AM CDT 12/30/2024 5:12 AM CDT us Larissa Medellin MD LAB BLOOD ORDERABLES Vickie l Result PRISCILLA ARREOLA (ARCHER) 1 [facility] [place] [address] * eGFR (12/30/2024 5:09 AM CDT) eGFR [...] of Race in Diagnosing Kidney Disease, JASN 2021). The CKD-EPI equation should not be used for patients with unstable renal function and has not been validated in children and those over 70. Current interpretive data was last reviewed 2021. Blood 12/30/2024 5:09 AM CDT 12/30/2024 5:12 AM CDT us Kelly Knight DO LAB BLOOD ORDERABLES Fin al Result [facility]A [facility] (ARCHER) 1 [facility] Department [place] [address] * (ABNORMAL) Differential, auto (12/30/2024 5:09 AM [...] 2017. Monocyte pct 14.1 % [facility]ERNER [facility] (HCAO) Comment: Interpretive Data Percent cell count reference [...] Fin al Result [facility]A [facility] (CHAO) 1 [facility] Department [place] [address] * (ABNORMAL) CBC with auto differential (12/30/2024 5:09 AM CDT) WBC 6.66 3.80 - 9.90 K/cumm Hgb 13.3 13.0 - 17.5 g/dL [facility]ER [facility] (CHOA) Hct 43.0 38.9 - 50.3 % CERNER [...] NRBC abs 0.00 0.00 - 0.01 K/cumm [facility] (ARCHER) Blood 12/30/2024 5:09 AM CDT 12/30/2024 5:12 AM CDT [facility] LAB BLOOD ORDERABLES Fin al Result Performing Organization Address [facility]/ZIP Co de Phone Number PRISCILLA [facility] (ARCHER) 1 [facility] [employer] [place] [address] * Phosphorus (12/30/2024 5:09 AM CDT) Phosphorus, pl 3.8 2.3 - 4.5 mg/dL Blood 12/30/2024 5:09 AM CDT 12/30/2024 5:12 AM CDT [facility] LAB BLOOD ORDERABLES Fin al Result Performing Organization Address [facility] de Phone Number [facility] (ARCHER) 1 [place] [address] * Magnesium (12/30/2024 5:09 AM CDT) Magnesium 1.8 1.4 - 2.5 mg/dL Blood 12/30/2024 5:09 AM CDT 12/30/2024 5:12 AM CDT [facility] LAB BLOOD ORDERABLES Fin al Result Performing Organization Address [facility] de Phone Number PIRSCILLA [facility] (ARCHER) 1 [facility] [employer] [place] [address] * Comprehensive metabolic panel (12/30/2024 5:09 AM CDT) Sodium 137 135 - 145 mmol/L Potassium, pl 4.8 3.3 - 4.9 mmol/L [facility] (ARCHER) Comment:Slightly Hemolyzed S pecimen. Results may be [...] 2022. Calcium 8.7 8.5 - 10.3 mg/dL [facility] ([facility] Bilirubin, total <0.2 0.1 - [...] DO LAB BLOOD ORDERABLES Fin al Result [facility] (CHAO) 1 [facility] Department [place] [address] * Erythrocyte sedimentation rate (12/30/2024 5:07 AM CDT) Erythrocyte sedimentation rate 11 1 - 15 mm/hr Blood 12/30/2024 5:07 AM CDT 12/30/2024 6:46 AM CDT us Navarro Zuleta Jr., MD LAB BLOOD ORDERABLE S Final Result PRISCILLA ARREOLA (ARCHER) 1 [facility] [place] [address] * CRP (acute phase) (12/30/2024 5:07 AM CDT) [facility] CRP <3.0 <=10.0 mg/L Blood 12/30/2024 5:07 AM CDT 12/30/2024 6:48 AM CDT Navarro Zuleta Jr., MD LAB BLOOD ORDERABLE S Final Result Performing Organization Address [facility] Co de Phone Number PRISCILLA ARREOLA (ARCHER) 1 [facility] [place] [employer] [place] [address] * (ABNORMAL) Troponin T high-sensitivity 2-hour (12/30/2024 12:43 AM CDT) [facility] Trop T hs 26(H) <=22 ng/L Comment: [...] BLOOD ORDERABLES Vickie l Result PRISCILLA ARREOLA (ARCHER) 1 [facility] [place] [address] * Lipase (12/30/2024 12:43 AM CDT) Lipase 25 10 - 99 Units/L Blood 12/30/2024 12:4 3 AM CDT 12/30/2024 1:46 AM CDT Kelly Knight DO LAB BLOOD ORDERABLES Fin al Result Performing Organization Address [facility] Co de Phone Number [facility] (ARCHER) 1 [place] [address] * ECG 12 lead (12/30/2024 12:32 AM CDT) 12/30/2024 12:3 2 AM CDT Narrative [facility] - 12/30/2024 7:25 AM CDT Vent Rate: 104 bpm RR Interval: 575 msec SD Interval: 159 msec QRS Duration: 109 msec QT Interval: 330 msec QTC Interval: 390 msec P-R-T Hobbs: 56 - 85 - -50 degrees IMPRESSION: SINUS TACHYCARDIA LEFT VENTRICULAR HYPERTROPHY AND ST-T CHANGE [VOLTAGE CRITERIA PLUS ST/T ABNORMALITY] ST ELEVATION, CONSIDER ANTERIOR INJURY [MARKED ST ELEVATION W/O NORMALLY INFLECTED T-WAVE IN V2-V5] ACUTE CO NO CHANGE FROM PREVIOUS TRACING NOTED Electronically Signed By: Skyler Waite MD Jose Sullivan MD ECG ORDERABLES Final Result Performing Organization Address [facility] Co de Phone Number [facility] [employer] * Urinalysis reflex to microscopic and culture Urine, bladder (12/30/2024 12:06 AM CDT) Color, ur Yellow Yellow Clarity, ur Clear Clear PRISCILLA Mix (ARCHER) Specific gravity, ur 1.020 1.003 - 1.030 PRISCILLA [facility] (CHAO) pH, urine 7.5 PRISCILLA [facility] (ARCHER) Comment: Interpretive Data U rine pH is affected by diet, medications, systemic acid-base disturbances, and renal tubular function. pH may affect urinary stone formation. For example, urine pH below 6.0 may help reduce the tendency for calcium phosphate stones and pH greater than 6.0 may reduce the tendency for uric acid stone formation. Source: [facility] Current Interpretive Data was last revised [...] MICROBIOLOGY - GENERAL OR DERABLES Final Result [facility] (CHAO) 1 [facility] Department [place] [address] * (ABNORMAL) Drugs of Abuse Screen, Urine [...] CDT 12/30/2024 12:11 AM CDT Narrative PRISCILLA [facility] (ARCHER) - 12/30/2024 12:55 AM CDT Drug of Abuse screening is performed by immunoassay for medical purposes only. This is not to be used for Pain Management purposes. us Jose Sullivan MD LAB URINE ORDERABLES Final Re sult PRISCILLA ARREOLA (ARCHER) 1 [facility] Department [place] [address] * ECG 12 lead (12/29/2024 11:58 PM CDT) 12/29/2024 11:5 8 PM CDT Narrative [facility] - 12/30/2024 7:27 AM CDT Vent Rate: 116 bpm RR Interval: 516 msec SD Interval: 163 msec QRS Duration: 106 msec QT Interval: 321 msec QTC Interval: 390 msec P-R-T Hobbs: 64 - 85 - -64 degrees IMPRESSION: SINUS TACHYCARDIA LEFT VENTRICULAR HYPERTROPHY AND ST-T CHANGE [VOLTAGE CRITERIA PLUS ST/T ABNORMALITY] ST ELEVATION, CONSIDER ANTERIOR INJURY [MARKED ST ELEVATION W/O NORMALLY INFLECTED T-WAVE IN V2-V5] ACUTE CO Compared to prior EKG, heart rate has increased Electronically Signed By: Skyler Waite MD us Jose Sullivan MD ECG ORDERABLES Final Result [facility] [employer] [facility] * CT Chest PE (CTA) W Contrast [...] 12/30/2024 12:22 AM - Electronically signed by Richisupa Farr M.D. KT: NANNETTE Report ID: [id number] Reading Location: [id number] Procedure Note Richi Farr MD - 12/30/2024 [...] Richi Farr M.D. KT: NANNETTE Report ID: [id number] Reading Location: [id number] us Jose Sullivan MD IMG CT PROCEDURES [...] Sam M.D. AR: JOHN PAUL Report ID: [id number] Reading Location: [id number] Procedure Note Jaskaran Sam MD - 12/29/2024 [...] Sam M.D. AR: JOHN PAUL Report ID: [id number] Reading Location: [id number] us Jose Sullivan MD IMG XR PROCEDURES [...] ORDERABLES Final Re sult Performing Organization Address City/[facility]/ZIP Co de Phone Number PRISCILLA ARREOLA ARCHER 1 [facility] Department of Laboratories [place], [place] [id number] * eGFR (12/29/2024 11:09 PM CDT) eGFR [...] BLOOD ORDERABLES Vickie l Result PRISCILLA ARREOLA (ARCHER) 1 [facility] Department [place] [address] * Differential, auto (12/29/2024 11:09 PM CDT) [...] Neutrophil pct 74.7 % [facility]ERNE R [facility] (ARCHER) Comment: Interpretive Data Percent cell count reference [...] BLOOD ORDERABLES Vickie l Result PRISCILLA ARREOLA (CHAO) 1 [facility] Department [place] [address] * (ABNORMAL) Thyroid Function [place] (12/29/2024 11:09 PM CDT) Pathologist [facility] TSH 0.17(L) 0.30 - 4.20 mcIUnit/mL Blood 12/29/2024 11:0 9 PM CDT 12/30/2024 9:14 AM CDT us Jose Sullivan MD LAB BLOOD ORDERABLES Edited R esult - Final PRISCILLA ARREOLA (CHAO) 1 [facility] [place] [employer] [place] [address] * CBC with auto differential (12/29/2024 11:09 PM CDT) Pathologist [facility] WBC 7.55 3.80 - 9.90 K/cumm Hgb [...] CV 13.3 11.1 - 14.9 % PRISCILLA ARREOLA (CHAO) RDW SD 42.5 35.7 - 48.1 fL PRISCILLA ARREOLA (CHAO) NRBC abs 0.00 0.00 - 0.01 K/cumm PRISCILLA ARREOLA (ARCHER) Blood 12/29/2024 11:0 9 PM CDT 12/29/2024 11:15 PM CDT Jose Sullivan MD LAB BLOOD ORDERABLES Final Re sult PRISCILLA ARREOLA (ARCHER) [address] [place] [address] [employer] [place] [address] * T3, free (12/29/2024 11:09 PM CDT) Free T3 3.9 2.0 - 4.4 pg/mL Comment:Testing performed by : [facility], [address] [place] [address]., [id number] Blood 12/29/2024 11:0 9 PM CDT 12/30/2024 9:14 AM CDT Narrative PRISCILLA ARREOLA (ARCHER) - 12/30/2024 9:57 AM CDT This test was reflexed from a T4 result. us Jose Sullivan MD LAB BLOOD ORDERABLES Final Re sult Performing Organization Address [facility]/ZIP Co de Phone Number PRISCILLA ARREOLA (ARCHER) [address] [place] [address] [employer] [place] [address] * T4, free (12/29/2024 11:09 PM CDT) Free T4 1.07 0.90 - 1.70 ng/dL Blood 12/29/2024 11:0 9 PM CDT 12/30/2024 9:14 AM CDT Narrative PRISCILLA ARREOLA (CHAO) - 12/30/2024 9:57 AM CDT This test was reflexed from a TSH result. us Jose Sullivan MD LAB BLOOD ORDERABLES Edited R esult - Final PRISCILLA ARREOLA (ARCHER) 1 [facility] [place] [address] * Magnesium (12/29/2024 11:09 PM CDT) Magnesium 1.6 1.4 - 2.5 mg/dL Blood 12/29/2024 11:0 9 PM CDT 12/29/2024 11:15 PM CDT us Jose Sullivan MD LAB BLOOD ORDERABLES Final Re sult Performing Organization Address City/[facility]/ZIP Co de Phone Number PRISCILLA ARREOLA (ARCHER) 1 [facility] [place] [address] * Comprehensive metabolic panel (12/29/2024 11:09 PM CDT) Sodium 137 135 - 145 mmol/L Potassium, pl 4.2 3.3 - 4.9 mmol/L [facility] (ARCHER) Chloride 99 97 - 110 mmol/L [facility] (CHAO) CO2 24 22 - 32 mmol/L [facility] (ARCHER) Anion gap 14 2 - 15 mmol/L [facility] (CHAO) BUN 8 6 - 25 mg/dL [facility] (ARCHER) Creatinine 1.04 0.80 - 1.30 mg/dL [facility] (CHAO) Glucose 126 70 - 199 mg/dL [facility] (ARCHER) Comment: Interpretive Data Fasting glucose >/= 126 [...] 2022. Calcium 9.3 8.5 - 10.3 mg/dL [facility] ([facility] Bilirubin, total 0.2 0.1 - [...] MD LAB BLOOD ORDERABLES Final Re sult [facility] ([facility]) 1 [facility] Department [place] [address] * (ABNORMAL) Urinalysis reflex to microscopic and culture Urine (12/20/2024 5:19 PM CDT) Color, ur Yellow Yellow Comment:Testing performed by : [address] [address] Clarity, ur Clear Clear [facility] Comment:Testing performed by : [address] [address] Specific gravity, ur 1.032(H) 1.003 - 1.030 [facility] Comment:Testing performed by : [address] [address] pH, urine 6.5 [facility] Comment: Interpretive Data U rine pH is affected by diet, medications, systemic acid-base disturbances, and renal tubular function. pH may affect urinary stone formation. For example, urine pH below 6.0 may help reduce the tendency for calcium phosphate stones and pH greater than 6.0 may reduce the tendency for uric acid stone formation. Source: [facility] [employer] Current Interpretive Data was last revised on 2017 Testing performed by: [address] [address] Protein, ur ql Trace(A) Negative PRISCILLA Comment:Testing performed by : [facility], [address] [place] [address], [place]., [address] Glucose, ur ql Negative Negative PRISCILLA Comment:Testing performed by : [facility], [address] [place] [address], [place]., [address] Ketones, ur Trace(A) Negative PRISCILLA Comment:Testing performed by : [address], [place]., [address] Bilirubin, ur Negative Negative PRISCILLA Comment:Testing performed by : [address], [place]., [address] Blood, ur 1+(A) Negative PRISCILLA Comment:Testing performed by : [address], [place]., [address] Urobilinogen, ur 2.0(A) <2.0 mg/dL PRISCILLA Comment:Testing performed by : [address], [place]., [address] Nitrite, ur Negative Negative PRISCILLA Comment:Testing performed by : [address], [place]., [address] Leukocyte esterase, ur Negative Negative PRISCILLA Comment:Testing performed by : [address], [place]., [address] UA reflex comment Reflex to microscopic UA will be performed. PRISCILLA Comment:Testing performed by : [address], [place]., [address] Urine 12/20/2024 5:19 PM CDT 12/20/2024 5:25 PM CDT us Renetta Echols MD LAB MICROBIOLOGY - GENER AL ORDERABLES Final Result [facility] Department [place] [address] * (ABNORMAL) Drugs of Abuse Screen, Urine without Confirmation (12/20/2024 5:19 PM CDT) Pathologist [facility] Amphetamine, ur Not Detected CutOff 500ng/mL Comment: Interpretive Data - Amphetamines: Samples containing greater than 500 ng/mL d-methamphetamine or other cross-reacting amphetamine compounds are reported as positive. Amphetamine immunoassays are subject to significant false positive rates due to cross-reactivity of non-amphetamine drugs. Confirmatory testing required for definitive results. Current Interpretive Data was last reviewed 2023. Testing performed by: [facility], [address] [place] [address]., [address] Barbiturates, ur Not Detected CutOff 200ng/mL CERNER Comment: Interpretive Data - Barbiturates: Samples containing greater than 200 ng/mL secobarbital or other cross-reacting barbiturate compounds are reported as positive. False positive and false negative results are possible. Confirmatory testing required for definitive results. Current Interpretive Data was last reviewed 2023. Testing performed by: [address] [address] Benzodiazepines, ur Not Detected CutOff 100ng/mL [facility] Comment: Interpretive Data - Benzodiazepines: Samples containing greater than 100 ng/mL nordiazepam or other cross-reacting compounds are reported as positive. False positive and false negative results are possible. Confirmatory testing required for definitive results. Current Interpretive Data was last reviewed 2023. Testing performed by: [address] [address] Cannabinoids, ur Screen Positive, presumptive (A) CutOff 50 ng/mL [facility] Comment: Interpretive Data - Cannabinoids: Samples containing greater than 50 ng/mL delta-9 THC -COOH or other cross- reacting compounds are reported as positive. False positive and false negative results are possible. Confirmatory testing required for definitive results. Current Interpretive Data was last reviewed 2023. Testing performed by: [address] [address] Cocaine, ur Not Detected CutOff 150ng/mL [facility] Comment: Interpretive Data - Cocaine: Samples containing greater than 150 ng/mL benzoylecgonine or other cross- reacting compounds are reported as positive. False positive and false negative results are possible. Confirmatory testing required for definitive results. Current Interpretive Data was last reviewed 2023. Testing performed by: [address] [address] Fentanyl, Ur Not Detected Cutoff 1 ng/mL [facility] Comment: Interpretive Data - Fentanyl: Samples containing greater than 1 ng/mL fentanyl or other cross-reacting fentanyl compounds are reported as positive. False positive and false negative results are possible. Confirmatory testing required for definitive results. Current Interpretive Data was last reviewed 2023. Testing performed by: [facility], [address] [place] [address]., [address] Methadone, ur Not Detected CutOff 300ng/mL PRISCILLA Comment: Interpretive Data - Methadone: Samples containing greater than 300 ng/mL d,l-methadone or other cross-reacting compounds are reported as positive. False positive and false negative results are possible. Confirmatory testing required for definitive results. Current Interpretive Data was last reviewed 2023. Testing performed by: [address] [address] Opiates, ur Not Detected CutOff 300ng/mL PRISCILLA Comment: Interpretive Data - Opiates: Samples containing greater than 300 ng/mL morphine or other cross-reacting compounds are reported as positive. False positive and false negative results are possible. Confirmatory testing required for definitive results. Current Interpretive Data was last reviewed 2023. Testing performed by: [address] [address] Oxycodone, ur Not Detected CutOff 100ng/mL PRISCILLA Comment: Interpretive Data - Oxycodone: Samples containing greater than 100 ng/mL oxycodone or other cross-reacting compounds are reported as positive. False positive and false negative results are possible. Confirmatory testing required for definitive results. Current Interpretive Data was last reviewed 2023. Testing performed by: [address] [address] Phencyclidine, ur Not Detected CutOff 25 ng/mL PRISCILLA Comment: Interpretive Data - Phencyclidine: Samples containing greater than 25 ng/mL phencyclidine or other cross-reacting compounds are reported as positive. False positive and false negative results are possible. Confirmatory testing required for definitive results. Current Interpretive Data was last reviewed 2023. Testing performed by: [address] [address] Urine Creatinine 390 mg/dL PRISCILLA Comment: Interpretive Data Urine Creatinine: < 10 mg/dL is extremely dilute = or > 10 but < 20 mg/dL is dilute = or > 20 mg/dL is normal Current Interpretive Data was last revised on 2017. Testing performed by: [address] [address] Urine 12/20/2024 5:19 PM CDT 12/20/2024 5:25 PM CDT Narrative PRISCILLA - 12/20/2024 5:57 PM CDT Drug of Abuse screening is performed by immunoassay for medical purposes only. This is not to be used for Pain Management purposes. us Renetta Echols MD LAB URINE ORDERABLES Fin al Result PRISCILLA [address] [facility] Department [place] [address] * (ABNORMAL) Urinalysis, microscopic only (12/20/2024 5:19 PM CDT) WBC, ur 0-5 0 - 5 /HPF Comment:Testing performed by : [address] [address] RBC, ur 11-20(A) 0 - 2 /HPF PRISCILLA Comment:Testing performed by : [address] [address] Epithelial cells, squamous, ur 6-10(A) 0 - 5 /HPF PRISCILLA Comment:Testing performed by : [address] [address] Mucous, ur Present(A) PRISCILLA Comment:Testing performed by : [address] [address] Sperm, ur Present(A) PRISCILLA Comment:Testing performed by : [address] [address] Culture Reflex Comment Reflex conditions for urine culture (WBC >10) not met. PRISCILLA Comment:Testing performed by : [address] [address] Urine 12/20/2024 5:19 PM CDT 12/20/2024 5:25 PM CDT Renetta Echols MD LAB URINE ORDERABLES Fin al Result Performing Organization Address City/[facility]/ZIP Co de Phone Number PRISCILLA MAURER [address] [facility] Department [place] [address] * COVID-19 Coronavirus RNA Nasopharyngeal (12/20/2024 5:06 PM CDT) COVID-19 RNA Negative Negative Comment:Testing performed by : [facility], [address] [place] [address]., [address] Nasopharyngeal 12/20/2024 5: 06 PM CDT 12/20/2024 5:22 PM CDT Narrative PRISCILLA - 12/20/2024 5:55 PM CDT Is the patient experiencing any symptoms consistent with COVID (eg. Fever, cough, shortness of breath)?->No What is the reason for testing?->Screening prior to Behavioral health admission Interpretive data Testing performed by [facility]. This test is performed using the [employer] Xpert Xpress CoV-2 plus assay. This is a real-time RT-PCR test intended for the qualitative detection of nucleic acid from the SARS-CoV-2. This assay has been cleared by the [place] Food and Drug administration. The performance characteristics have been verified by the [facility]. Results must be considered in the clinical context, and a negative result does not rule out infection. Interpretive data last revised 2024. Interpretive data Testing performed by [facility]. This test is performed using the [employer] Xpert Xpress CoV-2 plus assay. This is a real-time RT-PCR test intended for the qualitative detection of nucleic acid from the SARS-CoV-2. This assay has been cleared by the [place] Food and Drug administration. The performance characteristics have been verified by the [facility]. Results must be considered in the clinical context, and a negative result does not rule out infection. Interpretive data last revised 2024. Renetta Echols MD LAB MICROBIOLOGY - GENER AL ORDERABLES Final Result Performing Organization Address City/[facility] de Phone Number PRISCILLA [facility] [place] [address] * eGFR (12/20/2024 5:06 PM CDT) Pathologist [facility] eGFR >90 >=60 mL/min/1. 73 m2 Comment: [...] was last reviewed 2021. Testing performed by: [address] [address] Blood 12/20/2024 5:06 PM CDT 12/20/2024 5:25 PM CDT us Renetta Echols MD LAB BLOOD ORDERABLES Fin al Result Performing Organization Address [facility] [facility] Co de Phone Number [facility] [address] [facility] of [employer] [place] [address] * Differential, auto (12/20/2024 5:06 PM CDT) Pathologist [facility] Neutrophil abs 3.48 1.50 - 6.50 K/cumm Comment:Testing performed by : [address] [address] Imm gran abs 0.02 0.00 - 0.10 K/cumm PRISCILLA Comment:Testing performed by : [address] [place]., [address] Lymphocyte abs 1.90 0.80 - 3.30 K/cumm CERCRISTOBAL Comment:Testing performed by : [address] [address] Monocyte abs 0.60 0.20 - 0.80 K/cumm CERCRISTOBAL Comment:Testing performed by : [address], [place]., [address] Eosinophil abs 0.17 0.00 - 0.50 K/cumm [facility] Comment:Testing performed by : [address], [place]., [address] Basophil abs 0.03 0.00 - 0.10 K/cumm [facility] Comment:Testing performed by : [address] [address] Neutrophil pct 56.2 % [facility] Comment: Interpretive Data Percent cell count reference ranges are not reported, since discordance with absolute values may lead to misinterpretation of CBC data. Current Interpretive Data was last revised on 2017. Testing performed by: [address] [address] Imm gran pct 0.3 % [facility] Comment: Interpretive Data Percent cell count reference ranges are not reported, since discordance with absolute values may lead to misinterpretation of CBC data. Current Interpretive Data was last revised on 2017. Testing performed by: [address] [address] Lymphocyte pct 30.6 % [facility] Comment: Interpretive Data Percent cell count reference ranges are not reported, since discordance with absolute values may lead to misinterpretation of CBC data. Current Interpretive Data was last revised on 2017. Testing performed by: [address] [address] Monocyte pct 9.7 % CERNER Comment: Interpretive Data Percent cell count reference ranges are not reported, since discordance with absolute values may lead to misinterpretation of CBC data. Current Interpretive Data was last revised on 2017. Testing performed by: [address] [address] Eosinophil pct 2.7 % CERNER Comment: Interpretive Data Percent cell count reference ranges are not reported, since discordance with absolute values may lead to misinterpretation of CBC data. Current Interpretive Data was last revised on 2017. Testing performed by: [address] [address] Basophil pct 0.5 % PRISCILLA MAURER Comment: Interpretive Data Percent cell count reference ranges are not reported, since discordance with absolute values may lead to misinterpretation of CBC data. Current Interpretive Data was last revised on 2017. Testing performed by: [address] [address] Blood 12/20/2024 5:06 PM CDT 12/20/2024 5:25 PM CDT Renetta Echols MD LAB BLOOD ORDERABLES Fin al Result Performing Organization Address [facility] Co de Phone Number [place] [phone] [facility] [employer] [place] [address] * Thyroid Function [place] (12/20/2024 5:06 PM CDT) Pathologist [facility] TSH 0.32 0.30 - 4.20 mcIUnit/mL Comment:Testing performed by : [address] [address] Blood 12/20/2024 5:06 PM CDT 12/20/2024 5:25 PM CDT Renetta Echols MD LAB BLOOD ORDERABLES Fin al Result Performing Organization Address City/[facility]/ZIP Co de Phone Number [place] [phone] [place] [address] * CBC with auto differential (12/20/2024 5:06 PM CDT) Pathologist [facility] WBC 6.20 3.80 - 9.90 K/cumm Comment:Testing performed by : [address] [address] Hgb 13.0 13.0 - 17.5 g/dL PRISCILLA MAURER Comment:Testing performed by : [address], [address] Hct 39.6 38.9 - 50.3 % PRISCILLA Comment:Testing performed by : [address] [address] Plt 245 150 - 400 K/cumm PRISCILLA Comment:Testing performed by : [address], [address] MPV 9.7 9.1 - 12.3 fL PRISCILLA Comment:Testing performed by : [address], [address] RBC 4.61 4.30 - 5.80 M/cumm PRISCILLA Comment:Testing performed by : [address], [address] MCV 85.9 81.3 - 96.4 fL PRISCILLA Comment:Testing performed by : [address], [address] MCH 28.2 27.1 - 33.3 pg PRISCILLA Comment:Testing performed by : [address], [address] MCHC 32.8 32.3 - 35.7 g/dL PRISCILLA Comment:Testing performed by : [address], [address] RDW CV 14.0 11.1 - 14.9 % PRISCILLA Comment:Testing performed by : [address], [address] RDW SD 43.7 35.7 - 48.1 fL PRISCILLA Comment:Testing performed by : [address], [address] NRBC abs 0.00 0.00 - 0.01 K/cumm PRISCILLA Comment:Testing performed by : [address], [address] Blood Venous blood specimen / Unknown 12/20/2024 5:06 PM CDT 12/20/2024 5:25 PM CDT us Renetta Echols MD LAB BLOOD ORDERABLES Fin al Result Performing Organization Address [facility] Co de Phone Number PRISCILLA [address] [employer] [place] [address] * Ethanol (12/20/2024 5:06 PM CDT) Ethanol <10 <=10 mg/dL Comment: Interpretive Data Legal limit of intoxication > or = 80 mg/dL Levels > or = 400 mg/dL are potentially TOXIC. Current interpretive data was last revised on 2018. Testing performed by: [address] [address] Blood 12/20/2024 5:06 PM CDT 12/20/2024 5:25 PM CDT Renetta Echols MD LAB BLOOD ORDERABLES Fin al Result Performing Organization Address [facility] de Phone Number [address] [address] * Acetaminophen level (12/20/2024 5:06 PM CDT) [...] after ingestion Consult toxicology or poison control ([phone]) for unknown ingestion time. Current interpretive data was last revised 2023. Testing performed by: [address] [address] Blood 12/20/2024 5:06 PM CDT 12/20/2024 5:25 PM CDT Renetta Echols MD LAB BLOOD ORDERABLES Fin al Result Performing Organization Address [facility] Co de Phone Number [place] [phone] [facility] [employer] [place] [address] * Salicylate level (12/20/2024 5:06 PM CDT) Salicylate <1.0 <=1.0 mg/dL Comment: Interpretive Data Toxic: 30 mg/dL or greater. Current interpretive data was last revised 2023. Testing performed by: [address] [address] Blood 12/20/2024 5:06 PM CDT 12/20/2024 5:25 PM CDT us Renetta Echols MD LAB BLOOD ORDERABLES Fin al Result [facility] Department [place] [address] * Comprehensive metabolic panel (12/20/2024 5:06 PM CDT) Pathologist [facility] Sodium 142 135 - 145 mmol/L Comment:Testing performed by : [address] [address] Potassium, pl 4.1 3.3 - 4.9 mmol/L PRISCILLA Comment:Testing performed by : [address] [address] Chloride 106 97 - 110 mmol/L PRISCILLA Comment:Testing performed by : [address] [address] CO2 24 22 - 32 mmol/L PRISCILLA Comment:Testing performed by : [address] [address] Anion gap 12 2 - 15 mmol/L PRISCILLA Comment:Testing performed by : [address] [address] BUN 9 6 - 25 mg/dL PRISCILLA Comment:Testing performed by : [address] [address] Creatinine 1.10 0.80 - 1.30 mg/dL PRISCILLA Comment:Testing performed by : [address] [address] Glucose 116 70 - 199 mg/dL PRISCILLA [...] was last revised 2022. Testing performed by: [address] [address] Calcium 9.0 8.5 - 10.3 mg/dL PRISCILLA Comment:Testing performed by : [address] [address] Bilirubin, total 0.2 0.1 - 1.2 mg/dL PRISCILLA Comment:Testing performed by : [address] [address] Protein, pl 7.1 6.5 - 8.5 g/dL PRISCILLA Comment:Testing performed by : [address] [address] Albumin 4.1 3.5 - 5.0 g/dL PRISCILLA Comment:Testing performed by : [address] [address] Alk phos 64 40 - 130 Units/L PRISCILLA Comment:Testing performed by : [address] [address] ALT 15 7 - 55 Units/L PRISCILLA Comment:Testing performed by : [address] [address] AST 20 10 - 50 Units/L PRISCILLA Comment:Testing performed by : [address] [address] Blood 12/20/2024 5:06 PM CDT 12/20/2024 5:25 PM CDT us Renetta Echols MD LAB BLOOD ORDERABLES Fin al Result [facility] [address] [facility] Department [place] [address] from Last 3 Months Insurance Member Subscriber Plan / Payer (Ef fective 2023-Present) Name:Kimberley Escobar Jr. Relation to Subscriber:Self Name:Kimberley Escobar Jr. Payer ID:[id number] (NAIC) Group ID:Not on file Type:MEDICAID [id number] Address: [place] [id number] Advance Directives For more information, please contact: [phone] * Full Code (Latest Code Status on [...] 2:38 PM 10/01/2024 4:02 PM Care Teams Education Program Manager Relationship Specialty Start Date End Date No, Physician PCP - General 11/30/20
--- OUTSIDE RECORDS SUMMARY | 2025-02-09 21:45 | XMS_ITS ---
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 Name Role Phone Rocío Castillo Primary Care Provider REASON FOR VISIT psych eval, fu from [facility] Social History Sex Assigned At : Social History Observation Description Sex Assigned At Male Encounters Encounter Location Date Provider Diagnosis [address] [place] [address] 10/16/2024 Rocío Castillo Plan Of Treatment No Information Progress Notes * Flaco BESTDOB:[birth year] (34 yo M)Acc No.[id number]:10/16/2024 UNLOCKED PROGRESS NOTE Patient: Flaco LYNN Provider: Lluvia Castillo MSN, TAX PROFESSIONAL, SUPERVISOR PRODUCTION MANAGING-C :1990 A ge:34 Y S ex:Male Date:10/16/2024 Address:[address] [place] [address], [facility], [id number] Subjective: * Chief Complaints: * 1 . psych eval, fu from [facility]. * Medical History: Objective: * Vitals: Assessment: Plan: * Treatment: * * Electronic signature of Stacey Castillo , [id number] on 02/09/2025 at 02:02 AM CDT Sign off status: Pending * Provider: Lluvia Castillo MSN, TAX PROFESSIONAL, SUPERVISOR PRODUCTION MANAGING-C Date: 0 10/16/2024 Generated for Roseann hernandez/Marcos/eTransmitting on: 02/09/2025 02:02 AM IRWIN
--- OUTSIDE RECORDS SUMMARY | 2025-02-09 21:45 | XMS_ITS | Clinical Summary ---
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 6.7 g 025 Active colchicine 0.6 MG tablet Take 1 tablet (0.6 mg total) by mouth 2 (two) times daily. Active QUEtiapine (SEROQUEL) 100 MG tablet Take 1 tablet (100 mg total) by mouth nightly at bedtime. 025 Active albuterol sulfate HFA 108 (90 Base) MCG/ACT inhaler Inhale 2 puffs into the lungs every 6 (six) hours as needed for Wheezing. 8 g 025 Active ibuprofen (MOTRIN) 600 MG tablet Take 1 tablet (600 mg total) by mouth every 6 (six) hours as needed for Pain. 10 tablet 025 2024 Active ARIPiprazole (ABILIFY) 10 MG tablet Take 1 tablet (10 mg total) by mouth daily. 30 tablet 024 2024 Discontinued(E rror) lidocaine (LIDO SINTIA) 4 % patch Place 1 patch onto the skin daily. Remove & Discard patch within 12 hours or as directed 30 patch 024 2024 Discontinued(E rror) methocarbamol (ROBAXIN-750) 750 MG Tab Take 1 tablet (750 mg total) by mouth every 8 (eight) hours as needed. 30 tablet 024 2024 Discontinued(E rror) pantoprazole EC (PROTONIX) 40 MG tablet Take 1 tablet (40 mg total) by mouth daily. 30 tablet 2024 Discontinued(E rror) ondansetron (ZOFRAN-ODT) 4 MG disintegrating tablet Take 1 tablet (4 mg total) by mouth every 8 (eight) hours as needed for Nausea. 20 tablet 2024 Discontinued(E rror) magnesium-aluminu m-simethicone (MYLANTA MAXIMUM STRENGTH) 400-400-40 MG/5ML suspension Take 15 mLs by mouth every 6 (six) hours as needed for Indigestion (abdominal pain). 355 mL 2024 Discontinued(E rror) divalproex ER (DEPAKOTE) 500 MG 24 hr tablet Take 1 tablet (500 mg total) by mouth 2 (two) times a day. 2024 Discontinued(E rror) famotidine (PEPCID) 20 MG tablet Take 1 tablet (20 mg total) by mouth 2 (two) times daily. 2024 Discontinued(E rror) FLUoxetine (PROZAC) 20 MG capsule Take 1 capsule (20 mg total) by mouth daily. 2024 Discontinued(E rror) hydrOXYzine (ATARAX) 25 MG tablet Take 1 tablet (25 mg total) by mouth every 6 (six) hours as needed for Itching or Anxiety. 2024 Discontinued(E rror) ketorolac (TORADOL) 10 MG tablet Take 1 tablet (10 mg total) by mouth every 6 (six) hours as needed for Pain. 2024 Discontinued prazosin (MINIPRESS) 1 MG capsule Take 1 capsule (1 mg total) by mouth nightly at bedtime. 2024 Discontinued(E rror) predniSONE (DELTASONE) 20 MG tablet Take 2 tablets (40 mg total) by mouth daily. 025 2024 Discontinued(E rror) ibuprofen (MOTRIN) 600 MG tablet Take 1 tablet (600 mg total) by mouth every 6 (six) hours as needed for Pain. 30 tablet 025 2024 lidocaine (LIDODERM) 5 % Place 1 patch onto the skin daily for 5 days. Remove & Discard patch within 12 hours or as directed by 5 patch 025 2024 Active Problems Problem Noted Date Diagnosed Date Pericarditis (HHS/HCC) 06/16/2023 Acute blood loss anemia 06/16/2023 Hematemesis with nausea 06/16/2023 Encounters Date Type Department Care Team Description 02/01/2025 1:26 AM CDT - 02/01/2025 7:45 AM CDT Emergency [facility] [place] [address] Marleny Nathan MD Back Pain Discharge Disposition: Home or Self Care (Routine Discharge) 02/01/2025 Travel 01/23/2025 5:58 AM CDT - 01/23/2025 2:40 PM CDT Emergency [facility] [place] [address] Tara Curran MD Suicidal Ideation; Chest Pain Discharge Disposition: [facility] 01/23/2025 Travel 01/20/2025 1:32 AM CDT - 01/20/2025 2:12 AM CDT [facility] [place] [address] Breanne Hubbard PA Shortness Of Breath Discharge Disposition: Home or Self Care (Routine Discharge) 01/20/2025 Travel 01/14/2025 5:34 PM CDT - 01/14/2025 8:40 PM CDT [facility] [place] [address] Agustin Diaz MD Chest Pain Discharge Disposition: Home or Self Care (Routine Discharge) 01/14/2025 12:57 AM CDT - 01/14/2025 1:54 AM CDT [facility] [place] [address] Carmelo Mcnally MD Hand Injury Discharge Disposition: Home or Self Care (Routine Discharge) 01/14/2025 Travel 01/10/2025 12:24 AM CDT - 01/10/2025 3:52 AM CDT [facility] [place] [address] Cirilo Luke MD,PHD Diarrhea Discharge Disposition: Home or Self Care (Routine Discharge) 01/10/2025 Travel 01/04/2025 10:13 AM CDT - 01/04/2025 11:46 AM CDT [facility] [place] [address] Samuel Siddiqi, KARINA Breathing Problem Discharge Disposition: Home or Self Care (Routine Discharge) 01/04/2025 Travel 11/10/2024 12:49 AM CDT - 11/10/2024 1:39 AM CDT [facility] [place] [address] Samuel Siddiqi, LEAD BLENDER Hand Pain (Right hand) Discharge Disposition: Home or Self Care (Routine Discharge) 11/10/2024 Travel from Last 3 Months Social History Tobacco Use Types Packs/Day Years Used Date Smoking Tobacco: Former Cigarettes Cigars Smokeless Tobacco: Never Tobacco Cessation:Counseling Given: Not Answered Alcohol Use Standard Drinks/Week Comments Not Currently 0 (1 standard drink = 0.6 oz pur e alcohol) socially [facility] Utilities Answer Date Recorded In the past 12 months has [facility] [employer], gas, oil, or water [employer] threatened to shut off services in your [...] 06/17/2023 How often do you attend chur or mandaeism services? 1 to 4 times per year 06/17/2023 Do you belong to any clubs o r organizations such as holiness groups, unions, fraternal or athletic groups, or [...] Recorded Patient Health Questionnaire-2 Score 0 06/17/2023 [facility] [place] of Occupat ional Health - Occupational Stress [...] slept in a senior living (including now)? No 06/17/2023 Housing Stability Vital [...] Sex Assigned at Male 09/12/2024 10:51 PM [employer] Legal Sex Male 4:43 PM CDT Gender Identity Not on file Sexual Orientation Not on file Last Filed Vital Signs Vital Sign Reading Time Taken Comments Blood Pressure 128/73 02/01/2025 7:28 AM CDT Pulse 53 02/01/2025 7:28 AM CDT Temperature 36.3 C (97.4 F) 02/01/2025 1:16 AM CDT Respiratory Rate 14 02/01/2025 7:28 AM CDT Oxygen Saturation 98% 02/01/2025 7:28 AM CDT Inhaled Oxygen Concentration - - Weight 77.1 kg (170 lb) 02/01/2025 1:16 AM CDT Height 180.3 cm (5' 11) 02/01/2025 1:16 AM CDT Body Mass Index 23.71 02/01/2025 1:16 AM CDT Plan of Treatment Health Maintenance Due Date Last Done Comments Annual Physical 1994 Hepatitis B Vaccines (3 of 3 - 3-dose series) 11/16/2000 09/21/2000, 04/04/1996 DTaP, Tdap and Td Vaccines (5 - Tdap) 2002 04/04/1996, 08/20/1992, 06/20/1992, Additional history exists Hepatitis C 2009 COVID-19 Vaccine ( season) 2024 Pneumococcal Vaccine: Pediatrics (0 to 5 Years) and At-Risk Patients (6 to 49 Years) Completed 01/07/2025 HPV Vaccines Aged Out No [...] discharge from hospital Lifestyle No 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, HEDDLER Procedures Procedure Name Priority Date/Time Associated Diagnosis Comments XR LUMB SPINE 3V STAT 02/01/2025 2:27 AM CDT XR THOR SPINE 3V STAT 02/01/2025 2:27 AM CDT TROPONIN, QUANT STAT 01/23/2025 11:30 AM CDT XR CHEST PORTABLE STAT 01/23/2025 7:3 6 AM CDT DRUG SCREEN RAPID STAT 01/23/2025 6:3 8 AM CDT URINALYSIS, AUTO, COMPLETE STAT 01/23/2025 6:38 AM CDT TROPONIN, QUANT STAT 01/23/2025 6:30 AM CDT SALICYLATE STAT 01/23/2025 6:30 AM CDT THYROID STIM HORMONE TSH STAT 01/23/2025 6:30 AM CDT ACETAMINOPHEN STAT 01/23/2025 6:30 AM CDT ETHANOL STAT 01/23/2025 6:30 AM CDT COMPREHENSIVE METABOLIC PANEL STAT 01/23/2025 6:30 AM CDT CBC W/DIFF AUTOMATED STAT 01/23/2025 6:30 AM CDT RESPIRATORY PCR PANEL 2 STAT 01/23/2025 6:03 AM CDT ECG 12-LEAD Routine 01/23/2025 6:01 AM CDT XR CHEST PORTABLE STAT 01/20/2025 1:4 2 AM CDT TROPONIN, QUANT STAT 01/14/2025 7:25 PM CDT ECG 12-LEAD STAT 01/14/2025 7:21 PM CDT XR CHEST PORTABLE STAT 01/14/2025 6:0 8 PM CDT TROPONIN, QUANT STAT 01/14/2025 5:43 PM CDT COMPREHENSIVE METABOLIC PANEL STAT 01/14/2025 5:43 PM CDT CBC W/DIFF AUTOMATED STAT 01/14/2025 5:43 PM CDT ECG 12-LEAD STAT 01/14/2025 5:40 PM CDT XR HAND RT 3V STAT 01/14/2025 1:[address] ABD+PEL W CON STAT 01/10/2025 1:03 AM CDT MAGNESIUM Routine 01/10/2025 12:35 AM CDT COMPREHENSIVE METABOLIC PANEL STAT 01/10/2025 12:35 AM CDT CBC W/DIFF AUTOMATED STAT 01/10/2025 12:35 AM CDT XR HAND RT 3V STAT 11/10/2024 1:04 AM CDT from Last 3 Months Results * XR THOR SPINE 3V (02/01/2025 2:27 AM CDT) Anatomical Region Laterality Modality Spine Radiographic Macarena ging 02/01/2025 2:29 AM CDT Impressions 02/01/2025 2:32 AM CDT IMPRESSION: No definite acute fracture of the thoracic or lumbar spine. If symptoms persist, MRI thoracic and lumbar spine could be beneficial for further characterization. Referred By: Interpreted By: Jeremiah Sam MD, 02/01/2025 2:29 AM Narrative 02/01/2025 2:32 AM CDT [facility] [address] [place], [place] [address] EXAMINATION: XR LUMB SPINE 3V, XR THOR SPINE 3V, 02/01/2025 2:29 AM TECHNIQUE: AP, swimmer's and lateral radiographs of the thoracic spine. AP, lateral and L5-S1 radiographs of the lumbar spine. HISTORY: Back pain that started after lifting something at work COMPARISON: CT abdomen and pelvis 01/10/2025 FINDINGS: There are 12 rib-bearing thoracic-type vertebral bodies. The thoracic vertebral body heights are preserved. Thoracic vertebral bodies and facets are well aligned. There are 5 nonrib-bearing lumbar-type vertebral bodies. The lumbar vertebral bodies and facets are well aligned. The lumbar vertebral body heights are preserved. No definite acute fracture nor destructive process of the visualized osseous structures. Procedure Note Jeremiah Sam MD - 02/01/[address] [address] EXAMINATION: XR LUMB SPINE 3V, XR THOR SPINE 3V, 02/01/2025 2:29 AM TECHNIQUE: AP, swimmer's and lateral radiographs of the thoracic spine.AP, lateral and L5-S1 radiographs of the lumbar spine. HISTORY: Back pain that started after lifting something at work COMPARISON: CT abdomen and pelvis 01/10/2025 FINDINGS: There are 12 rib-bearing thoracic-type vertebral bodies. Thethoracic vertebral body heights are preserved. Thoracic vertebral bodiesand facets are well aligned. There are 5 nonrib-bearing lumbar-typevertebral bodies. The lumbar vertebral bodies and facets are wellaligned. The lumbar vertebral body heights are preserved. No definiteacute fracture nor destructive process of the visualized osseousstructures. IMPRESSION: No definite acute fracture of the thoracic or lumbar spine. If symptomspersist, MRI thoracic and lumbar spine could be beneficial for furthercharacterization. Referred By: Interpreted By: Jeremiah Sam MD, 02/01/2025 2:29 AM [facility] Final Result * XR LUMB SPINE 3V (02/01/2025 2:27 AM CDT) Anatomical Region Laterality Modality Spine Radiographic Macarena ging 02/01/2025 2:29 AM CDT Impressions 02/01/2025 2:32 AM CDT IMPRESSION: No definite acute fracture of the thoracic or lumbar spine. If symptoms persist, MRI thoracic and lumbar spine could be beneficial for further characterization. Referred By: Interpreted By: Jeremiah Sam MD, 02/01/2025 2:29 AM Narrative 02/01/2025 2:32 AM CDT [address] [address] EXAMINATION: XR LUMB SPINE 3V, XR THOR SPINE 3V, 02/01/2025 2:29 AM TECHNIQUE: AP, swimmer's and lateral radiographs of the thoracic spine. AP, lateral and L5-S1 radiographs of the lumbar spine. HISTORY: Back pain that started after lifting something at work COMPARISON: CT abdomen and pelvis 01/10/2025 FINDINGS: There are 12 rib-bearing thoracic-type vertebral bodies. The thoracic vertebral body heights are preserved. Thoracic vertebral bodies and facets are well aligned. There are 5 nonrib-bearing lumbar-type vertebral bodies. The lumbar vertebral bodies and facets are well aligned. The lumbar vertebral body heights are preserved. No definite acute fracture nor destructive process of the visualized osseous structures. Procedure Note Jeremiah Sam MD - 02/01/[address] [address] EXAMINATION: XR LUMB SPINE 3V, XR THOR SPINE 3V, 02/01/2025 2:29 AM TECHNIQUE: AP, swimmer's and lateral radiographs of the thoracic spine.AP, lateral and L5-S1 radiographs of the lumbar spine. HISTORY: Back pain that started after lifting something at work COMPARISON: CT abdomen and pelvis 01/10/2025 FINDINGS: There are 12 rib-bearing thoracic-type vertebral bodies. Thethoracic vertebral body heights are preserved. Thoracic vertebral bodiesand facets are well aligned. There are 5 nonrib-bearing lumbar-typevertebral bodies. The lumbar vertebral bodies and facets are wellaligned. The lumbar vertebral body heights are preserved. No definiteacute fracture nor destructive process of the visualized osseousstructures. IMPRESSION: No definite acute fracture of the thoracic or lumbar spine. If symptomspersist, MRI thoracic and lumbar spine could be beneficial for furthercharacterization. Referred By: Interpreted By: Jeremiah Sam MD, 02/01/2025 2:29 AM us [facility] Final Result * TROPONIN, QUANT (01/23/2025 11:30 AM CDT) Only the most recent of4 resultswithin the time period is included. TROPONIN I HIGH SENSITIVITY 42 <79 ng/L 01/23/2025 12:04 PM CDT [facility] Comment: HIGH DOSES OF BIOTIN, TROPONIN-SPECIFIC AUTOANTIBODIES, AND ANTIBODY THERAPY CONTAINING HAMA MAY INTERFERE WITH THIS TEST RESULT. CORRELATION TO CLINICAL HISTORY AND PRESENTATION RECOMMENDED. 01/23/2025 11:3 0 AM CDT Tara Curran MD LABORATORY Final Result [facility] [address] [place] [address], [place] [phone] * XR CHEST PORTABLE (01/23/2025 7:36 AM CDT) Only the most recent of3 resultswithin the time period is included. Anatomical Region Laterality Modality Chest Radiographic Macarena ging 01/23/2025 7:38 AM CDT Impressions 01/23/2025 7:39 AM CDT IMPRESSION: No acute findings Ordered By: TARA CURRAN Interpreted By: Jerrod Alejandre MD, 01/23/2025 7:38 AM Narrative 01/23/2025 7:39 AM CDT [facility] [address] [place], [place] [address] SINGLE VIEW OF THE CHEST Clinical history: Chest pain Comparison: January 20, 2025 A single view of the chest demonstrates the cardiac silhouette to be normal in size and appearance. The pulmonary vessels are normally distributed. The Lungs are clear. No consolidations or effusions are seen. Procedure Note Jerrod Alejandre MD - 01/23/2025 [facility] [address] [place], [place] [address] SINGLE VIEW OF THE CHEST Clinical history: Chest pain Comparison: January 20, 2025 A single view of the chest demonstrates the cardiac silhouette to benormal in size and appearance. The pulmonary vessels are normallydistributed. The Lungs are clear. No consolidations or effusions are seen. IMPRESSION: No acute findings Ordered By: TARA CURRAN Interpreted By: Jerrod Alejandre MD, 01/23/2025 7:38 AM Tara Curran MD GENERAL IMAGING Final Result * (ABNORMAL) DRUG SCREEN RAPID (01/23/2025 6:38 AM CDT) AMPHETAMINE (U) NEGATIVE NEGATIVE 7:11 AM CDT [facility] BARBITURATES SCREEN (U) NEGATIVE NEGATIVE 01/23/2025 7:11 AM CDT [facility] BENZODIAZEPINES SCREEN (U) NEGATIVE NEGATIVE 01/23/2025 7:11 AM CDT [facility] CANNABINOIDS SCREEN (U) POSITIVE(A) NEGATIVE 01/23/2025 7:11 AM CDT [facility] COCAINE METABOLITES (U) NEGATIVE NEGATIVE 01/23/2025 7:11 AM CDT [facility] METHADONE (U) NEGATIVE NEGATIVE 01/23/2025 7:11 AM CDT [facility] OPIATE SCREEN (U) NEGATIVE NEGATIVE 025 7:11 AM CDT [facility] PHENCYCLIDINE PCP (U) NEGATIVE NEGATIVE 01/23/2025 7:11 AM CDT [facility] Comment: NOTE: RESULTS OF THIS DRUG SCREEN SHOULD BE USED FOR MEDICAL PURPOSES ONLY AND NOT FOR LEGAL OR EMPLOYMENT PURPOSES. POSITIVE RESULTS ARE NOT CONFIRMED. MEDICATIONS CONTAINING EPHEDRINE MAY CAUSE FALSE POSITIVE AMPHETAMINE CALL [phone], LAB, TO REQUEST CONFIRMATION TESTING. IF CREATININE IS <40 mg/dL. RECOLLECTION IS SUGGESTED. AMPHETAMINE- 500 NG/ML BARBITURATE- 200 NG/ML BENZODIAZEPINES- 200 NG/ML THC- 50 NG/ML COCAINE- 150 NG/ML METHADONE- 300 NG/ML OPIATE- 300 MG/ML PCP- 25 NG/ML CREATININE (U) 381.0(H) 39 - 259 MG/DL 01/23/2025 7:11 AM CDT [facility] URINE SPECIMEN / Unknown 01/23/2025 6:38 AM CDT us Tara Curran MD URINE ORDERABLES Final Resul t [facility] [address] [place] [address], [place] [phone] * (ABNORMAL) URINALYSIS, AUTO, COMPLETE (01/23/2025 6:38 AM CDT) SPECIMEN TYPE URINE CLEAN CATCH 01/23/2025 6:37 AM CDT [facility] COLOR (U) YELLOW 01/23/2025 6:56 AM CDT [facility] TRANSPARENCY CLEAR 01/23/2025 6:56 AM CDT [facility] SPECIFIC GRAVITY (U) 1.023 1.001 - 1.030 01/23/2025 6:56 AM CDT [facility] U PH 6.0 5.0 - 9.0 01/23/2025 6:56 AM CDT [facility] LEUKOCYTES (U) NEGATIVE NEGATIVE 01/23/2025 6:56 AM CDT [facility] NITRITES NEGATIVE NEGATIVE 01/23/2025 6:56 AM CDT [facility] PROTEIN RANDOM (U) 10 <30 MG/DL 01/23/2025 6:56 AM CDT [facility] GLUCOSE (U) NORMAL NORMAL MG/DL 01/23/2025 6:56 AM CDT [facility] KETONES MG/DL (U) NEGATIVE NEGATIVE MG/DL 01/23/2025 6:56 AM CDT [facility] UROBILINOGEN 3.0(A) NORMAL MG/DL 01/23/2025 6:56 AM CDT [facility] BILIRUBIN (U) NEGATIVE NEGATIVE MG/DL 01/23/2025 6:56 AM CDT [facility] BLOOD (U) TRACE(A) NEGATIVE 01/23/2025 6:56 AM CDT [facility] MUCUS MANY /LPF 01/23/2025 6:56 AM CDT [facility] WBC/HPF 4 <6 /HPF 01/23/2025 6:56 AM CDT [facility] RBC/HPF 7(H) <6 /HPF 01/23/2025 6:56 AM CDT [facility] URINE SPECIMEN OBTAINED BY CLEAN CATCH PROCEDURE / Unknown 01/23/2025 6:38 AM CDT us Tara Curran MD URINE ORDERABLES Final Resul t [facility] [address] [place] [address], [place] [phone] * (ABNORMAL) COMPREHENSIVE METABOLIC PANEL (01/23/2025 6:30 AM CDT) Only the most recent of3 resultswithin the time period is included. Pathologist [facility] GLUCOSE 103(H) 70 - 99 MG/DL 01/23/2025 7:21 AM CDT [facility] BUN 8 7 - 18 MG/DL 01/23/2025 7:21 AM CDT [facility] CREATININE S/P/B 1.28 0.7 - 1.3 MG/DL 01/23/2025 7:21 AM CDT [facility] SODIUM S/P/B 140 136 - 145 MMOL/L 01/23/2025 7:21 AM CDT [facility] POTASSIUM S/P/B 3.8 3.5 - 5.1 MMOL/L 01/23/2025 7:21 AM T [facility] CHLORIDE S/P/B 106 97 - 115 MMOL/L 01/23/2025 7:21 AM T [facility] CO2 26.2 21 - 32 MMOL/L 01/23/2025 7:21 AM T [facility] CALCIUM S/P/B 9.6 8.5 - 10.1 MG/DL 01/23/2025 7:21 AM T [facility] BILIRUBIN TOTAL S/P/B 0.8 0.2 - 1.2 MG/DL 01/23/2025 7:21 AM T [facility] Comment: THIS ASSAY IS NOT RECOMMENDED FOR PATIENTS UNDERGOING TREATMENT WITH ELTROMBOPAG DUE TO THE POTENTIAL FOR FALSELY ELEVATED RESULTS. TOTAL PROTEIN S/P/B 7.8 6.4 - 8.2 G/DL 01/23/2025 7:21 AM CDT [facility] ALBUMIN S/P/B 3.9 3.4 - 5.0 G/DL 01/23/2025 7:21 AM T [facility] AST 23 15 - 37 U/L 01/23/2025 7:21 AM CDT [facility] ALT 50 16 - 60 U/L 01/23/2025 7:21 AM CDT [facility] ALKALINE PHOSPHATASE S/P/B 66 50 - 136 U/L 01/23/2025 7:21 AM CDT [facility] ANION GAP 7.8 2 - 10 MMOL/L 01/23/2025 7:21 AM CDT [facility] BUN CREATININE RATIO 6.2 6 - 26 01/23/2025 7:21 AM CDT [facility] A/G RATIO 1.0 1.0 - 2.0 RATIO 01/23/2025 7:21 AM CDT [facility] GFR ESTIMATE 76(L) >90 ML/MIN/1.7 3 M2 01/23/2025 7:21 AM CDT [facility] Comment: NOTE: eGFR is not calculated for patients <18 years of age or gender unknown. This is an estimated GFR calculation using the new CKD EPI creatinine equation without race and so does not require a correction factor for race. This estimated GFR should not be used for calculating drug doses. 01/23/2025 6:30 AM CDT us Tara Curran MD LABORATORY Final Result [facility] [address] [place] [address], [place] [phone] * CBC W/DIFF AUTOMATED (01/23/2025 6:30 AM CDT) Only the most recent of3 resultswithin the time period is included. WBC 5.45 4.5 - 11.0 x10'3/uL 01/23/2025 6:55 AM CDT [facility] RBC 4.99 4.70 - 6.10 x10'6/uL 01/23/2025 6:55 AM CDT [facility] HGB 14.4 14.0 - 18.0 G/DL 01/23/2025 6:55 AM CDT [facility] HCT 44.2 43.0 - 54.0 % 01/23/2025 6:55 AM CDT [facility] MCV 88.6 80.0 - 94.0 FL 01/23/2025 6:55 AM CDT [facility] MCH 28.9 27.0 - 31.0 PG 01/23/2025 6:55 AM CDT [facility] MCHC 32.6 32.0 - 36.0 G/DL 01/23/2025 6:55 AM CDT [facility] RDW 14.0 11.5 - 14.5 % 01/23/2025 6:55 AM CDT [facility] PLT 239 130 - 400 x10'3/uL 01/23/2025 6:55 AM CDT [facility] MPV 9.9 9.3 - 12.2 FL 01/23/2025 6:55 AM CDT [facility] DIFFERENTIAL TYPE AUTOMATED DIFFERENTIAL 01/23/2025 6:55 AM CDT [facility] NEUTROPHILS % 50.0 % 01/23/2025 6:55 AM CDT [facility] LYMPHOCYTES % 34.7 % 01/23/2025 6:55 AM CDT [facility] MONOCYTES % 12.1 % 01/23/2025 6:55 AM CDT [facility] EOSINOPHILS 2.6 % 01/23/2025 6:55 AM CDT [facility] BASOPHILS 0.4 % 01/23/2025 6:55 AM CDT [facility] IMMATURE GRANS % 0.2 % 01/24/20 6:55 AM CDT [facility] ABS. NEUTROPHILS 2.73 1.80 - 7.70 x10'3/uL 01/23/2025 6:55 AM CDT [facility] ABS. LYMPHOCYTES 1.89 1.00 - 4.80 x10'3/uL 01/23/2025 6:55 AM CDT [facility] ABS. MONOCYTES 0.66 0.30 - 0.82 x10'3/uL 01/23/2025 6:55 AM CDT [facility] ABS. EOSINOPHILS 0.14 0.04 - 0.54 x10'3/uL 01/23/2025 6:55 AM CDT [facility] ABS. BASOPHILS 0.02 0.01 - 0.08 x10'3/uL 01/23/2025 6:55 AM CDT [facility] ABS. IMMATURE GRANULOCYTES 0.01 0.00 - 0.49 x10'3/uL 01/23/2025 6:55 AM CDT [facility] 01/23/2025 6:30 AM CDT Tara Curran MD LABORATORY Final Result [facility] [address] [place] [id number], [place] [phone] * (ABNORMAL) THYROID STIM HORMONE, TSH (01/23/2025 6:30 AM CDT) TSH 0.332(L) 0.358 - 3.74 uIU/ML 01/23/2025 7:21 AM CDT [facility] Comment: HIGH DOSES OF BIOTIN MAY INTERFERE WITH THIS TEST RESULT. CORRELATION TO CLINICAL HISTORY AND PRESENTATION RECOMMENDED. 01/23/2025 6:30 AM CDT Tara Curran MD LABORATORY Final Result Performing Organization Address [facility] Co de Phone Number [facility] [address] [place] [address], * (ABNORMAL) SALICYLATE (01/23/2025 6:30 AM CDT) SALICYLATES <1.7(L) 2.8 - 20.0 MG/DL 01/23/2025 7:13 AM CDT [facility] Comment: THERAPEUTIC: 2.8-20.0 Toxic Level: >=30 01/23/2025 6:30 AM CDT Tara Curran MD LABORATORY Final Result Performing Organization Address [facility] Co de Phone Number [facility] [address] [place] [id number], * ETHANOL (01/23/2025 6:30 AM CDT) ALCOHOL S/P/B <0.003 <0.003 G/DL 01/23/2025 7:21 AM CDT [facility] 01/23/2025 6:30 AM CDT Tara Curran MD LABORATORY Final Result Performing Organization Address City/[facility] Co de Phone Number [facility] [address] [place] [address], * (ABNORMAL) ACETAMINOPHEN (01/23/2025 6:30 AM CDT) ACETAMINOPHEN S/P/B <2.0(L) 10.0 - 30.0 MCG/ML 01/23/2025 7:21 AM CDT [facility] Comment: THERAPEUTIC: 10-30 TOXIC: >200 01/23/2025 6:30 AM CDT Tara Curran MD LABORATORY Final Result [facility] [address] [place] [address], * RESPIRATORY PCR PANEL 2 (01/23/2025 6:03 AM CDT) Pathologist [facility] ADENOVIRUS PCR (RESP) NOT DETECTED NOT DETECTED 01/23/2025 7:47 AM CDT [facility] CORONAVIRUS 229E PCR (RESP) NOT DETECTED NOT DETECTED 01/23/2025 7:47 AM CDT [facility] CORONAVIRUS HKU1 PCR (RESP) NOT DETECTED NOT DETECTED 01/23/2025 7:47 AM CDT [facility] CORONAVIRUS NL63 PCR (RESP) NOT DETECTED NOT DETECTED 01/23/2025 7:47 AM CDT [facility] CORONAVIRUS OC43 PCR (RESP) NOT DETECTED NOT DETECTED 01/23/2025 7:47 AM CDT [facility] METAPNEUMOVIRUS PCR (RESP) NOT DETECTED NOT DETECTED 01/23/2025 7:47 AM CDT [facility] RHINOVIRUS/ENTEROV IRUS PCR (RESP) NOT DETECTED NOT DETECTED 01/23/2025 7:47 AM CDT [facility] INFLUENZA A PCR (RESP) NOT DETECTED NOT DETECTED 01/23/2025 7:47 AM CDT [facility] INFLUENZA B PCR (RESP) NOT DETECTED NOT DETECTED 01/23/2025 7:47 AM CDT [facility] PARAINFLUENZA 1 PCR (RESP) NOT DETECTED NOT DETECTED 01/23/2025 7:47 AM CDT [facility] PARAINFLUENZA 2 PCR (RESP) NOT DETECTED NOT DETECTED 01/23/2025 7:47 AM CDT [facility] PARAINFLUENZA 3 PCR (RESP) NOT DETECTED NOT DETECTED 01/23/2025 7:47 AM CDT [facility] PARAINFLUENZA 4 PCR (RESP) NOT DETECTED NOT DETECTED 01/23/2025 7:47 AM CDT [facility] RSV PCR (RESP) NOT DETECTED NOT DETECTED 01/23/2025 7:47 AM CDT [facility] B PARAPERTUSIS PCR (RESP) NOT DETECTED NOT DETECTED 01/23/2025 7:47 AM CDT [facility] BORDETELLA PERTUSSIS PCR (RESP) NOT DETECTED NOT DETECTED 01/23/2025 7:47 AM CDT [facility] CHLAMYDOPHILA PNEUMONIAE PCR (RESP) NOT DETECTED NOT DETECTED 01/23/2025 7:47 AM CDT [facility] MYCOPLASMA PNEUMONIAE PCR (RESP) NOT DETECTED NOT DETECTED 01/23/2025 7:47 AM CDT [facility] CORONAVIRUS SARS COV 2 PCR (RESP) NOT DETECTED NOT DETECTED 01/23/2025 7:47 AM CDT [facility] NASOPHARYNGEAL SWAB / Unknown 01/23/2025 6:03 AM CDT us Tara Curran MD MICROBIOLOGY - GENERAL ORDER DIEGO Final Result [facility] [address] [place] [address], [place] [phone] * ECG 12 lead (01/23/2025 6:01 AM CDT) Only the most recent of3 resultswithin the time period is included. 01/23/2025 6:01 AM CDT Narrative [facility] - 01/26/2025 12:[address] 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1990 Requested By: CIRILO LUKE Order Number: [id number] Reading MD: Melissa Asif Measurements Intervals [place] Rate: 59 P: 20 DC: 177 QRS: 75 QRSD: 103 T: 27 QT: 384 QTc: 383 Interpretive Statements SINUS BRADYCARDIA WITH SINUS ARRHYTHMIA POSSIBLE LEFT ATRIAL ENLARGEMENT [-0.1mV P-WAVE IN V1/V2] POSSIBLE LEFT VENTRICULAR HYPERTROPHY [VOLTAGE CRITERIA PLUS LAE OR QRS WIDENING] MARKED ST ELEVATION, CONSIDER ANTEROLATERAL INJURY [MARKED ST ELEVATION W/O NORMALLY INFLECTED T-WAVE IN V3-V6] Compared to ECG 01/14/2025 19:21:44 Sinus rhythm no longer present ST (T wave) deviation still present Myocardial infarct finding still present Procedure Note Melissa Asif MD - 01/26/2025 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1990 Requested By: CIRILO LUKE Order Number: [id number] Reading MD: Melissa Asif Measurements Intervals [place] Rate: 59 P: 20 DC: 177 QRS: 75 QRSD: 103 T: 27 QT: 384 QTc: 383 Interpretive Statements SINUS BRADYCARDIA WITH SINUS ARRHYTHMIA POSSIBLE LEFT ATRIAL ENLARGEMENT [-0.1mV P-WAVE IN V1/V2] POSSIBLE LEFT VENTRICULAR HYPERTROPHY [VOLTAGE CRITERIA PLUS LAE OR QRS WIDENING] MARKED ST ELEVATION, CONSIDER ANTEROLATERAL INJURY [MARKED ST ELEVATIONW/O NORMALLY INFLECTED T-WAVE IN V3-V6] Compared to ECG 01/14/2025 19:21:44 Sinus rhythm no longer present ST (T wave) deviation still present Myocardial infarct finding still present us Tara Curran MD ECG ORDERABLES Final Result [facility] * XR HAND RT 3V (01/14/2025 1:15 AM CDT) Only the most recent of2 resultswithin the time period is included. Anatomical Region Laterality Modality Hand Radiographic Macarena ging 01/14/2025 1:21 AM CDT Impressions 01/14/2025 1:24 AM CDT IMPRESSION: 1. No acute fracture or dislocation. 2. Mild soft tissue swelling over the dorsal aspect of approximately the right third metacarpal phalangeal joint. Referred By: Interpreted By: Lianne Lorenz MD, 01/14/2025 1:21 AM Narrative 01/14/2025 1:24 AM CDT [place] [address] EXAMINATION: Right Hand, 3 Views INDICATION: Punched a brick wall tonight, right hand pain and swelling. COMPARISON: Right hand x-rays 11/10/2024. FINDINGS: No acute fracture or dislocation. No radiopaque foreign body. Mild soft tissue swelling is seen over the dorsal as above approximately the right third metacarpophalangeal joint.. Procedure Note Lianne Lorenz MD - 01/14/2025 [place] [address] EXAMINATION: Right Hand, 3 Views INDICATION: Punched a brick wall tonight, right hand pain and swelling. COMPARISON: Right hand x-rays 11/10/2024. FINDINGS: No acute fracture or dislocation. No radiopaque foreign body.Mild soft tissue swelling is seen over the dorsal as above approximatelythe right third metacarpophalangeal joint.. IMPRESSION: 1. No acute fracture or dislocation. 2. Mild soft tissue swelling over the dorsal aspect of approximately theright third metacarpal phalangeal joint. Referred By: Interpreted By: Lianne Lorenz MD, 01/14/2025 1:21 AM Carmelo Mcnally MD GENERAL IMAGING Final Result * CT ABD+PEL W CON (01/10/2025 1:03 AM CDT) Anatomical Region Laterality Modality Abdomen Computed Tomogra phy 01/10/2025 2:20 AM CDT Impressions 01/10/2025 2:29 AM CDT IMPRESSION: 1. Mild nonspecific fluid distention of small bowel loops with concern for mild bowel wall thickening and hyperenhancement; please correlate for mild nonspecific enteritis. 2. Persistent indeterminate 1.6 cm hypodense lesion laterally in the mid right kidney, not significantly changed from 10/07/2024 but not clearly a simple cyst. Additional smaller cystic lesions in the right kidney. Recommend nonemergent renal ultrasound exam for further evaluation. 3. Gallbladder appears contracted, limiting evaluation. If there is clinical concern for acute cholecystitis, may consider right upper quadrant ultrasound after the patient has had nothing by mouth for at least 6 hours for further evaluation. Referred By: Interpreted By: Lianne Lorenz MD, 01/10/2025 2:20 AM Narrative 01/10/2025 2:29 AM CDT [address] [address] EXAMINATION: CT Abdomen and Pelvis with intravenous contrast, axial images with 2D coronal and sagittal reconstruction. 100 mL Isovue-370 was administered intravenously. This CT exam was performed using one or more of the following dose reduction techniques: automated exposure control, adjustment of the mA and/or kV according to patient size, the use of iterative reconstruction technique, use of ALARA (As Low As Reasonably Achievable) and/or use of Image Gently techniques. INDICATION: LLQ abdominal pain, exacerbated with bowel movement. COMPARISON: CT abdomen and pelvis with contrast 10/07/2024. FINDINGS: The included lower lungs are clear. No pleural or pericardial effusions. Heart size is normal. Liver, spleen, pancreas, bilateral adrenal glands are unremarkable. Gallbladder appears contracted, significantly limiting evaluation. No biliary dilatation. Persistent indeterminate 1.6 cm hypodense lesion laterally in the mid right kidney, not significantly changed from 10/07/2024 but not clearly a simple cyst. Additional smaller cystic lesions in the medial upper right kidney and lateral mid to lower right kidney. Left kidney is unremarkable. No obstructing calculi or hydronephrosis. Bladder is unremarkable. Prostate is within normal limits in size. Mild nonspecific fluid distention of small bowel loops with concern for mild bowel wall thickening and hyperenhancement; please correlate for mild nonspecific enteritis. The left colon is partially collapsed, limiting evaluation. Appendix is normal without appendicitis. No evidence of bowel obstruction. No ascites or adenopathy. Aorta is age-appropriate without aneurysm. No acute osseous abnormality. Procedure Note Lianne Lorenz MD - 01/10/[address] [address] EXAMINATION: CT Abdomen and Pelvis with intravenous contrast, axial imageswith 2D coronal and sagittal reconstruction. 100 mL Isovue-370 wasadministered [address] exam was performed using one or more of the following dosereduction techniques: automated exposure control, adjustment of the mAand/or kV according to patient size, the use of iterative reconstructiontechnique, use of ALARA (As Low As Reasonably Achievable) and/or use ofImage Gently techniques. INDICATION: LLQ abdominal pain, exacerbated with bowel movement. COMPARISON: CT abdomen and pelvis with contrast 10/07/2024. FINDINGS: The included lower lungs are clear. No pleural or pericardialeffusions. Heart size is normal. Liver, spleen, pancreas, bilateraladrenal glands are unremarkable. Gallbladder appears contracted,significantly limiting evaluation. No biliary dilatation. Persistentindeterminate 1.6 cm hypodense lesion laterally in the mid right kidney,not significantly changed from 10/07/2024 but not clearly a simple cyst.Additional smaller cystic lesions in the medial upper right kidney andlateral mid to lower right kidney. Left kidney is unremarkable. Noobstructing calculi or hydronephrosis. Bladder is unremarkable. Prostateis within normal limits in size. Mild nonspecific fluid distention of small bowel loops with concern formild bowel wall thickening and hyperenhancement; please correlate for mildnonspecific enteritis. The left colon is partially collapsed, limitingevaluation. Appendix is normal without appendicitis. No evidence ofbowel obstruction. No ascites or adenopathy. Aorta is age-appropriatewithout aneurysm. No acute osseous abnormality. IMPRESSION: 1. Mild nonspecific fluid distention of small bowel loops with concernfor mild bowel wall thickening and hyperenhancement; please correlate formild nonspecific enteritis. 2. Persistent indeterminate 1.6 cm hypodense lesion laterally in the midright kidney, not significantly changed from 10/07/2024 but not clearly asimple cyst. Additional smaller cystic lesions in the right kidney.Recommend nonemergent renal ultrasound exam for further evaluation. 3. Gallbladder appears contracted, limiting evaluation. If there isclinical concern for acute cholecystitis, may consider right upperquadrant ultrasound after the patient has had nothing by mouth for atleast 6 hours for further evaluation. 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
--- OUTSIDE RECORDS SUMMARY | 2025-02-09 21:45 | XMS_ITS | Encounter Summary ---
Author Organization [facility] Address [address] [place] [address] Care Team Providers Care Attendant Self Service Store Name Role Phone Unavailable Primary Care Provider Unavailabl e Encounter Details Date Type Department Care Team (Late st Contact Info) Description 12/22/2024 Lab Requisition [facility] Services [address] [phone] Vent[place] Brian MD [address] [place] [phone] Social History Tobacco Use Types Packs/Day Years Used Date Smoking Tobacco: Never Assessed Sex and Gender Information Value Date Recorded Sex Assigned at Not on file Legal Sex Male 8:18 AM PROGRAM ADVISOR Gender Identity Not on file Sexual Orientation [...] 5.5 <=5.6 % 12/22/2024 7:21 AM CDT [facility] [employer] [facility] EST. AVG GLUCOSE, A1C 111 mg/dL 12/22/2024 7:21 AM CDT [facility] [employer] [facility] Blood Venipuncture / Unknown 12/22/2024 5:35 AM CDT 12/22/2024 6:18 AM CDT [facility] - 12/22/2024 7:21 AM CDT HGB A1C INTERPRETATION NORMAL: <5.7% PRE-DIABETES: 5.7 - 6.4% DIABETES: 6.5% OR GREATER us Ventura Brian MD CHEMISTRY ORDERABLES Final Res ult [facility] [id number] [address] [place] [address] * LIPID PANEL (12/22/2024 5:35 AM CDT) [facility] CHOLESTEROL 132 <200 mg/dL 12/22/2024 7:25 AM CDT [facility] TRIGLYCERIDE 83 <150 mg/dL 12/22/2024 7:25 AM CDT [facility] HDL 45 40 - 59 mg/dL 12/22/2024 7:25 AM CDT [facility] LDL CALCULATED 70 <100 mg/dL 12/22/2024 7:25 AM CDT [facility] NON-HDL CHOLESTEROL 87 <130 mg/dL 12/22/2024 7:25 AM T [facility] Blood Venipuncture / Unknown 12/22/2024 5:35 AM CDT 12/22/2024 6:18 AM CDT [facility] - 12/22/2024 7:25 AM CDT [...] Brian MD CHEMISTRY ORDERABLES Final Res ult [facility] LABORATORY SERVICES - [facility] [id number] [address] [place] [address] documented in this encounter Visit Diagnoses Not on filedocumented in this encounter
--- OUTSIDE RECORDS SUMMARY | 2025-02-09 21:45 | XMS_ITS | Clinical Summary ---
Author Organization [facility] Address [address] [place] [address] Phone Care Team Providers Care Clothing Designer Name Role Phone Provider, None Primary Care [...] 01/05/2025 11:26 PM CDT Emergency [facility] Emergency [address] [place] [address] Shaka Salguero MD Chronic pericarditis, [...] Immunization ( - season) 2024 Influenza Immunization (#1) 2025 Respiratory Syncytial Virus (RSV) Immunization (Adult) [...] Kev Canela M.D. MJ: [email or web address] Report ID: [id number] Reading Location: [id number] Procedure Note Kev Canela MD - 01/05/2025 [...] Kev Canela M.D. MJ: [email or web address] Report ID: [id number] Reading Location: [place] [address] IMPRESSION: No acute cardiopulmonary abnormality. Shaka Salguero MD IMG DIAGNOSTIC ORDERABLES Final Result * TROPONIN I, HIGH SENSITIVITY (HSTRP) (01/05/2025 9:10 PM CDT) [facility] TROPONIN I, HIGH SENSITIVITY- MCRAE 11 <=35 ng/L 01/05/2025 9:50 PM CDT [facility] Comment: High-sensitivity troponin I results are reported in ng/L making the result appear to be 1,000 times higher than the contemporary troponin I value which is reported in ng/ml. Results from [facility]. Blood Venipuncture / Unknown 01/05/2025 9:10 PM CDT 01/05/2025 9:25 PM CDT Shaka Salguero MD CHEMISTRY ORDERABLES Final Result [facility] [address] [place] [address] * (ABNORMAL) CBC with Auto Differential (01/05/2025 9:10 PM CDT) [facility] WBC 8.19 4.00 - 12.00 10(3)/mcL 01/05/2025 9:28 PM CDT [facility] RBC 4.79 4.40 - 5.80 10(6)/mcL 01/05/2025 9:28 PM CDT [facility] HEMOGLOBIN (HGB) 13.7 13.0 - 16.5 g/dL 01/05/2025 9:28 PM CDT [facility] HEMATOCRIT (HCT) 42.4 38.0 - 50.0 % 01/05/2025 9:28 PM CDT [facility] MCV 88.5 82.0 - 96.0 fL 01/05/2025 9:28 PM CDT [facility] MCH 28.6 26.0 - 32.0 pg 01/05/2025 9:28 PM CDT [facility] MCHC 32.3 31.0 - 36.0 g/dL 01/05/2025 9:28 PM CDT [facility] PLATELET COUNT 259 140 - 440 10(3)/mcL 01/05/2025 9:28 PM CDT [facility] RDW 13.3 11.8 - 15.5 % 01/05/2025 9:28 PM CDT [facility] MPV 9.5 8.0 - 12.6 fL 01/05/2025 9:28 PM CDT [facility] NEUTROPHILS 53.1 40.0 - 68.0 % 01/05/2025 9:28 PM CDT [facility] LYMPHOCYTES 33.0 19.0 - 49.0 % 01/05/2025 9:28 PM CDT [facility] MONOCYTES 11.5 3.0 - 13.0 % 01/05/2025 9:28 PM CDT [facility] EOSINOPHILS 2.0 0.0 - 8.0 % 01/05/2025 9:28 PM CDT [facility] BASOPHILS 0.4 0.0 - 1.0 % 01/05/2025 9:28 PM CDT [facility] ABSOLUTE NEUTROPHILS 4.36 1.40 - 5.30 10(3)/mcL 01/05/2025 9:28 PM CDT [facility] ABSOLUTE LYMPHOCYTES 2.70 0.90 - 3.30 10(3)/mcL 01/05/2025 9:28 PM CDT [facility] ABSOLUTE MONOCYTES 0.94(H) 0.10 - 0.90 10(3)/[facility] 01/05/2025 9:28 PM CDT [facility] ABSOLUTE EOSINOPHIL 0.16 0.00 - 0.50 10(3)/mcL 01/05/2025 9:28 PM CDT [facility] ABSOLUTE BASOPHILS 0.03 0.00 - 0.10 10(3)/[facility] 01/05/2025 9:28 PM CDT [facility] NRBC PER 100 WBC 0 01/06/20 9:28 PM CDT [facility] Blood Venipuncture / Unknown 01/05/2025 9:10 PM CDT 01/05/2025 9:25 PM CDT us Shaka Salguero MD HEMATOLOGY ORDERABLES Vickie arreola Result [facility] [address] [place] [address] * (ABNORMAL) CMP (01/05/2025 9:10 PM CDT) SODIUM 140 136 - 145 mmol/L 01/05/2025 9:48 PM CDT [facility] POTASSIUM 4.0 3.5 - 5.1 mmol/L 01/05/2025 9:48 PM CDT [facility] CHLORIDE 107 98 - 107 mmol/L 01/05/2025 9:48 PM CDT [facility] CO2, VENOUS 24 22 - 30 mmol/L 01/05/2025 9:48 PM CDT [facility] ANION GAP 13.0 <18.0 mmol/L 01/05/2025 9:48 PM CDT [facility] GLUCOSE 95 70 - 99 mg/dL 01/05/2025 9:48 PM CDT [facility] BUN 12 9 - 21 [...] (AST) 35 <43 U/L 01/05/2025 9:[address] [facility] SGPT (ALT) 41 <56 U/L 01/05/2025 9:48 PM CDT [facility] ALKALINE PHOSPHATASE 62 40 - 150 U/L 01/05/2025 9:48 PM CDT [facility] GFR, ESTIMATED >60 >=60 01/05/2025 9:48 PM T [facility] Comment: Creatinine [...] NONAFRICAN >60 >=60 01/05/2025 9:48 PM CDT [facility] Blood Venipuncture / Unknown 01/05/2025 9:10 PM CDT 01/05/2025 9:25 PM CDT Shaka Salguero MD CHEMISTRY ORDERABLES Final Result Performing Organization Address City/[facility]/ZIP Co de Phone Number [facility] [address] [facility] [place] [address] * EKG 12 LEAD (01/05/2025 8:51 PM CDT) Ventricular Rate 73 BPM EXTERNAL EKG Atrial Rate 73 BPM EXTERNAL EKG P-R Interval 164 ms EXTERNAL EKG QRS Duration 110 ms EXTERNAL EKG Q-T Duration 356 ms EXTERNAL EKG QTC CALCULATION 392 ms EXTERNAL EKG P [place] 42 degrees EXTERNAL EKG R [place] 81 degrees EXTERNAL EKG T [place] 50 degrees EXTERNAL EKG 01/05/2025 8:51 PM CDT Impressions EXTERNAL EKG - 01/08/2025 9:18 AM CDT Normal sinus rhythm ST elevation, consider early repolarization, pericarditis, or injury Abnormal ECG When compared with ECG of 18-AUG-2023 23:06, No significant change was found ~ Confirmed by Jermaine Dimas ([id number]) on 01/08/2025 9:18:19 AM Narrative Procedure Note Jermaine Dimas MD - 01/08/2025 IMPRESSION: Normal sinus rhythm ST elevation, consider early repolarization, pericarditis, or injury Abnormal ECG When compared with ECG of 18-AUG-2023 23:06, No significant change was found ~ Confirmed by Jermaine Dimas ([id number]) on 01/08/2025 9:18:19 AM Shaka Salguero MD IMG ECG ORDERABLES Final R esult EXTERNAL EKG * EKG SCAN (01/05/2025 12:00 AM CDT) 01/05/2025 us Provider Scan IMG ECG ORDERABLES Final Result RESULTING AGENCY from Last 3 Months Insurance MEDICAID [employer] Care Teams Clothing Designer Relationship Specialty Start Date End Date Provider, None [place] PCP - General 08/19/23
[2025-02-09 21:46] VITALS: BP 134/75; PULSE 82; RESP 16; TEMP 37.1; O2SAT 98
[2025-02-09 22:08] LABS: Hematocrit 38.1 % (42.0-52.0); Hemoglobin 12.4 g/dL (14.0-18.0); Immature Granulocyte Percent A 0.6 % (0-0.5); Lymphocytes Absolute Auto 2.18 K/mm3 (0.9-3.2); Mean Corpuscular HGB Conc 32.5 g/dl (32-36); Mean Corpuscular Hemoglobin 28.6 pg (26-34); Mean Corpuscular Volume 87.8 fl (80-100); Nucleated Red Blood Cells Absolute Auto 0.000 K/mm3 (0.0-0.012); Nucleated Red Blood Cells Perc 0.0 % (0.0-0.2); Platelet Count Result 261 k/mm3 (150-375); Red Blood Count 4.34 M/mm3 (4.6-6.20); White Blood Count 6.6 K/mm3 (4.5-10.0)
[2025-02-09 22:18] LABS: INR 1.1; Prothrombin Time 13.8 Seconds (11.1-14.7)
[2025-02-09 22:19] LABS: Partial Thromboplastin Time 26.6 Seconds (22.3-36.8)
[2025-02-09 22:42] VITALS: PULSE 69
[2025-02-09 23:00] LABS: Alanine Aminotransferase 28 U/L (6-50); Albumin Level 3.4 g/dL (3.5-5.1); Alkaline Phosphatase 66 U/L (38-126); Anion Gap 5 mmol/L (4-12); Aspartate Amino Transferase 28 U/L (17-59); Bilirubin,Total 0.1 mg/dL (0.2-1.3); Blood Urea Nitrogen 9 mg/dL (9-20); Calcium 8.6 mg/dL (8.4-10.2); Carbon Dioxide 24 mmol/L (22-30); Chloride 109 mmol/L (98-107); Estimated CRCL calculation 91 ml/min; Estimated Glomerular Filt Rate > 60; Glucose 109 mg/dL (65-110); Lipase 94 U/L (23-300); Potassium 3.7 mmol/L (3.4-5.0); Sodium 138 mmol/L (137-145); Total Protein 5.8 g/dL (6.3-8.2); Troponin I < 0.012 ng/mL (0.000-0.034)
--- NOTE | 2025-02-09 23:09 | ED_ITS ---
HPI - Chest Pain General Chief Complaint: Chest Pain Stated Complaint: CHEST PAIN Time Seen by Provider: 02/09/25 23:05 History of Present Illness HPI narrative: Patient is a 34-year-old male who presents to emergency department complaining of chest pain. Patient does have a known history of pericarditis and has been seen our facility multiple times in the past for this pain admits that this feels very similar she has pericarditis. He takes colchicine for his pericarditis which he states does help his symptoms sometimes. Denies any recent illness, any fevers or chills, and denies any additional symptoms or concerns at this time. Related Data Home Medications ?Medication ?Instructions ?Recorded ?Confirmed ?Last Taken ?Type clonazepam 0.5 mg tablet 0.5 mg PO PRN PRN Anxiety 12/15/23 12/15/23 Unknown History cyanocobalamin (vitamin B-12) 10,000 mcg PO DAILY 12/15/23 12/15/23 Unknown History 1,000 mcg tablet doxycycline hyclate 100 mg capsule 100 mg PO DAILY 12/15/23 12/15/23 Unknown History ferrous sulfate 325 mg (65 mg 325 mg PO DAILY 12/15/23 12/15/23 Unknown History iron) tablet (FeroSul) Allergies Allergy/AdvReac Type Severity Reaction Status Date / Time No Known Allergies Allergy Verified 02/09/25 21:43 Review of Systems 2 Review of Systems: All systems are reviewed and are negative unless stated otherwise in the HPI. [facility] Past Medical History Medical History Depression Pericarditis Surgical History Surgical History No pertinent past surgical history Social History Social History Substance use type: does not use Exam 2 Narrative: General: Alert, awake, afebrile, in no acute distress. HEENT: PERRL, no rhinorrhea, no post nasal drip, oropharynx clear. Neck: Trachea midline, no JVD, no lymphadenopathy. Cardiovascular: Regular rate and rhythm, no murmurs, rubs or gallops, no peripheral edema. Respiratory: Clear to auscultation bilaterally, no tachypnea, no wheezing, no rhonchi, no rubs, no respiratory distress. Abdomen: Soft, nontender, nondistended, no rebound, no guarding, no peritoneal signs. Musculoskeletal: No joint swelling or deformity, normal muscle tone. Skin: No rashes or petechia, no signs of infection. Psychiatric: Alert and oriented, normal behavior and judgment for situation. Neurological: Alert and oriented to person, place, and time. Follows all commands. No focal deficits, speech is clear and fluent. Course Vital Signs Vital signs: Vital Signs Temperature 98.7 F 02/09/25 21:46 Pulse Rate 82 02/09/25 21:46 Respiratory Rate 16 02/09/25 21:46 Blood Pressure 134/75 02/09/25 21:46 Pulse Oximetry 98 02/09/25 21:46 Oxygen Delivery Room Air 02/09/25 21:46 Temperature 98.7 F 02/09/25 21:46 Pulse Rate 69 02/09/25 22:42 Respiratory Rate 16 02/09/25 21:46 Blood Pressure 134/75 02/09/25 21:46 Pulse Oximetry 98 02/09/25 21:46 Oxygen Delivery Room Air 02/09/25 21:46 MDM - Chest Pain MDM Narrative Medical decision making narrative: The patient was evaluated by myself in the emergency department. History is obtained from patient who is an independent historian and physical exam was performed. External medical records were reviewed at this time. IV was established and pertinent tests were ordered. Patient was administered 15 mg of IV Toradol for his chest/pericarditis pain EKG was obtained which revealed sinus rhythm rate of 82 beats per minute with diffuse ST elevation consistent with patient's history of pericarditis. EKG was independently interpreted by me and is currently pending official cardiology read. EKG was compared to previous EKGs last of which was in January 12, 2025 revealing similar findings. Laboratory results obtained revealing no acute process. Troponin negative. Imaging studies obtained included CXR which was independently interpreted by me revealing no acute cardiopulmonary process, which is pending final radiology interpretation. Differential diagnosis considerations include pericarditis, dehydration, electrolyte derangements, acute viral syndrome, infectious process such as pneumonia. Comorbidities impacting this visit include history of pericarditis. I have evaluated and discussed social determinants of health with the patient that could potentially impact subsequent diagnosis and treatment plans. On repeat assessment of the patient, reevaluation revealed that the patient is doing well and is in no acute distress. Patient symptoms have improved since he arrived to our emergency department. Repeat vital signs were all reviewed and noted to be stable. Differential diagnosis and treatment plan were discussed with the patient at bedside. Patient agrees with discussion and after shared medical decision making agrees with discharge. All questions were answered to the patient's satisfaction. Patient will follow up with his PCP in 3-5 days. Patient was provided with strict return precautions and instructed to return to the emergency department if any new or worsening symptoms develop. The patient was discharged in stable condition. Lab Data 02/09/25 21:58 02/09/25 21:58 Labs: Lab Results 02/09/25 Range/Units 21:58 WBC 6.6 (4.5-10.0) K/mm3 RBC 4.34 L (4.6-6.20) M/mm3 Hgb 12.4 L (14.0-18.0) g/dL Hct 38.1 L (42.0-52.0) % MCV 87.8 (80-100) fl MCH 28.6 (26-34) pg MCHC 32.5 (32-36) g/dl RDW 14.2 (11.5-14.5) % Plt Count 261 (150-375) k/mm3 MPV 9.4 (7.4-10.4) fl Immature Gran % (Auto) 0.6 H (0-0.5) % Neut % (Auto) 52.3 (45.5-73.1) % Lymph % (Auto) 33.3 (18.3-44.2) % Woods % (Auto) 12.1 H (2.6-8.5) % Eos % (Auto) 1.5 (0-4.4) % Baso % (Auto) 0.2 (0.2-1.2) % Lymph # (Auto) 2.18 (0.9-3.2) K/mm3 Woods # (Auto) 0.8 H (0.1-0.6) K/mm3 Eos # (Auto) 0.1 (0-0.3) K/mm3 Baso # (Auto) 0.0 (0.0-0.1) K/mm3 Abs Immat Gran (auto) 0.04 H (0.00-0.031) K/mm3 Absolute Neuts (auto) 3.4 (1.3-6.7) K/mm3 Absolute Nucleated RBC 0.000 (0.0-0.012) K/mm3 Nucleated RBC % 0.0 (0.0-0.2) % PT 13.8 (11.1-14.7) Seconds INR 1.1 APTT 26.6 (22.3-36.8) Seconds Sodium 138 (137-145) mmol/L Potassium 3.7 (3.4-5.0) mmol/L Chloride 109 H (98-107) mmol/L Carbon Dioxide 24 (22-30) mmol/L Anion Gap 5 (4-12) mmol/L BUN 9 (9-20) mg/dL Creatinine 1.09 (0.7-1.3) mg/dL Estim Creat Clear Calc 91 ml/min Estimated GFR > 60 (59 - ) Glucose 109 (65-110) mg/dL Calcium 8.6 (8.4-10.2) mg/dL Total Bilirubin 0.1 L (0.2-1.3) mg/dL AST 28 (17-59) U/L ALT 28 (6-50) U/L Alkaline Phosphatase 66 (38-126) U/L Troponin I < 0.012 (0.000-0.034) ng/mL Total Protein 5.8 L (6.3-8.2) g/dL Albumin 3.4 L (3.5-5.1) g/dL Lipase 94 (23-300) U/L Discharge Plan Discharge Clinical Impression: Chest pain, Pericarditis Patient Disposition: Home Condition: Improved Instructions: Antibiotic Form, Chest Pain (ED), Acute Pericarditis (ED) Additional Instructions: Please follow-up with the family doctor within next 3-5 days. Return to emergency department for any worsening symptoms develop. Patient Language: Nigerien Prescriptions: No Action doxycycline hyclate 100 mg capsule 100 mg PO DAILY clonazepam 0.5 mg tablet 0.5 mg PO PRN PRN (Reason: Anxiety) cyanocobalamin (vitamin B-12) 1,000 mcg tablet 10,000 mcg PO DAILY ferrous sulfate [FeroSul] 325 mg (65 mg iron) tablet 325 mg PO DAILY colchicine 0.6 mg capsule 0.6 mg PO DAILY Qty: 14 0RF acetaminophen [Tylenol Extra Strength] 500 mg tablet 1,000 mg PO Q6H PRN (Reason: pain) Qty: 50 0RF alum-mag hydroxide-simeth [Maalox Advanced] 200-200-20 mg/5 mL suspension 10 ml PO QID PRN (Reason: dyspepsia) Qty: 100 0RF Rx Instructions: administer between meals and at bedtime colchicine 0.6 mg capsule 0.6 mg PO BID Qty: 30 0RF prednisone 20 mg tablet 40 mg PO DAILY 5 Days Qty: 10 0RF ibuprofen 600 mg tablet 600 mg PO TID PRN (Reason: fever or pain) Qty: 30 0RF prednisone 20 mg tablet 40 mg PO DAILY 4 Days Qty: 8 0RF albuterol sulfate 90 mcg/actuation HFA aerosol inhaler 2 puff inhalation QID PRN (Reason: shortness of breath or wheezing) Qty: 8.5 0RF Follow-up/Referrals: PHYSICIAN,[employer] [Primary Care Provider] - Randal Abdalla MD [Physician] - 3 Days Time of Disposition: 23:14
--- OUTSIDE RECORDS SUMMARY | 2025-02-09 23:11 | XMS_ITS | Referral Summary ---
Author Organization [facility] Address [address] [place] [address] Care Team Providers Care German Tutor Name Role Phone No, Physician Primary Care Provider [phone] Encounters Date Type Department Care Team Description 02/08/2025 1:07 AM CDT - 02/08/2025 1:27 AM CDT Emergency [facility] Emergency Department [address] [place] [phone] Fela Posadas MD Right hand pain (Primary Dx) Discharge Disposition: Discharge to home or self care 02/06/2025 2:43 AM CDT - 02/06/2025 5:28 AM CDT Emergency [facility] Emergency Department [address] [place] [address] Larissa Medellin MD Abdominal pain (Primary Dx) Discharge Disposition: Discharge to home or self care 02/04/2025 2:18 AM CDT - 02/04/2025 4:39 AM CDT Emergency [facility] Emergency Department [address] [place] [phone] Richi Aguilar MD Abdominal pain (Primary Dx) Discharge Disposition: Discharge to home or self care 02/02/2025 3:08 AM CDT - 02/02/2025 5:29 AM CDT Emergency [facility] Emergency Department [address] [place] [phone] Abdominal pain (Primary Dx) Discharge Disposition: Discharge to home or self care 01/30/2025 12:42 AM CDT - 01/30/2025 2:03 PM CDT Hospital Encounter [address] [address] Renetta Echols MD Ogbuagu, MD Elvira Gao Sohaib, MD Smith, Yordan Akbar MD Epigastric pain (Primary Dx); Microscopic hematuria Discharge Disposition: Discharge to home or self care 01/28/2025 12:13 AM CDT - 01/29/2025 11:52 AM CDT Hospital Encounter [address] [phone] Rupert Kaplan MD Zhao, Bella Moreno MD PhD Arsenio, Larry Angulo MD Recurrent idiopathic pericarditis (Primary Dx); Chest pain, unspecified type Discharge Disposition: Discharge to home or self care 01/18/2025 1:07 AM CDT - 01/18/2025 4:16 AM CDT Emergency [facility] Emergency Department [address] [place] [phone] Luana Beckett MD Abdominal pain (Primary Dx) Discharge Disposition: Discharge to home or self care 01/13/2025 10:24 AM CDT - 01/13/2025 2:45 PM CDT Emergency [address] [address] Chest pain, unspecified type (Primary Dx) Discharge Disposition: Discharge to home or self care 01/06/2025 2:01 PM CDT - 01/09/2025 3:55 PM CDT Hospital Encounter [facility] [address] [place] [phone] Filipe Calros MD L'Ecuyer, Suzanne, MD de Leon, Kelly [...] CDT - 01/06/2025 12:58 PM CDT Emergency [facility] Emergency Department [address] [place] [address] Jose Sullivan MD Zozula, Jaskaran Macdonald MD Suicidal ideation (Primary Dx) Discharge Disposition: Discharge to psych hospital or psych unit 01/04/2025 [facility] Post Discharge Follow up phone call [facility] Surgery Care [address] [place] [address] Anastasiia Montano 01/01/2025 10:08 PM CDT - 01/02/2025 2:26 AM CDT Emergency [facility] Emergency Department 1 [place] [phone] Irina eYager MD Suicidal ideation (Primary Dx) Discharge Disposition: Discharge to home or self care 12/29/2024 10:58 PM CDT - 12/30/2024 4:10 PM CDT Hospital Encounter [facility] IMU [address] [place] [address] Jose Sullivan MD Fasick, Victoria Rose, DO Richards, John Albert Jr., MD Chest pain, unspecified type (Primary Dx); Other chest pain; Chronic pericarditis; Acute idiopathic pericarditis Discharge Disposition: Discharge to home or self care 12/20/2024 5:19 PM CDT - 12/21/2024 12:03 PM CDT Emergency [facility] Emergency Department [address] [place] [phone] Renetta Echols MD Suicidal ideation (Primary Dx) [...] ED read with diffuse ST elevation and MN depression. - has been taking colchicine but [...] ED read with diffuse ST elevation and MN depression. - has been taking colchicine but [...] remember the name. Recent discharge 01/06 from [facility] with no medications listed. Encouraged patient [...] 09/30/2024 Assessment & Plan (09/30/2024 9:09 AM AGRICULTURAL SERVICES DIRECTOR): Will try to obtain iron studies I asked SW to help w/ PCP followup Epigastric pain 09/30/2024 Assessment & Plan (09/30/2024 9:17 AM AGRICULTURAL SERVICES DIRECTOR): When asked where his pericarditis pain is, he points to the epigastrium. When I saw him in 11/2023, I had requested an H pylori stool antigen, which we were not able to obtain. -Try again to obtain H pylori antigen (especially w/ history of anemia) Depression 09/29/2024 Assessment & Plan (09/29/2024 1:17 PM AGRICULTURAL SERVICES DIRECTOR): As per psychiatry Will addon a TSH Pericarditis 09/29/2024 Assessment & Plan (09/30/2024 9:10 AM AGRICULTURAL SERVICES DIRECTOR): Currently asymptomatic. Will obtain EKG. Will restart colchicine if symptoms recurs EKG w/ diffuse ST elevation in II, III, aVF, and V1-6, with no MN depression This might also be early repolarization See my notes from 11/16/23 and 11/17/23 for my thought process then He has a umbrella cutter (Dr Rivera, in [place]) with whom he can follow up Routine general medical exam ination at a health care facility 09/29/2024 Assessment & Plan (09/29/2024 1:17 PM AGRICULTURAL SERVICES DIRECTOR): HIV, RPR negative Will recheck here Addon B12, TSH GERD (gastroesophageal reflux disease) Assessment & Plan (09/29/2024 1:18 PM AGRICULTURAL SERVICES DIRECTOR): Hold off PPI for now as he notes no symptoms of acid reflux. Low threshold to restart. The chest pain (when present) he notes is epigastric so that may be a component of GERD Renal lesion 09/29/2024 Assessment & Plan (09/30/2024 9:09 AM AGRICULTURAL SERVICES DIRECTOR): 11/02/23 CT: There are 3 low-attenuation lesions [...] 08/14/23, 11/02/23 w/ diffuse ST elevation, w/ MN depression) and a negative ischemic workup (including [...] follows w/ Dr Cat Choudhary (cardiology w/ [facility]), which he will follow up [...] 11/16/2023 Assessment & Plan (09/30/2024 9:11 AM AGRICULTURAL SERVICES DIRECTOR): B12 300, same as 11/2023. Will replete [...] 11/16/2023 Assessment & Plan (09/30/2024 9:11 AM AGRICULTURAL SERVICES DIRECTOR): Late latent, appropriately treated. See my 11/15/24 note Assessment & Plan (11/16/2023 1:25 PM CDT): As per my colleague Dr Bynum (see 09/07/23 medicine c/s note): - Has history of Syphilis, treated in 2013 , -Treponema ab + and RPR 1:4 on 08/29/23 when tested at [facility] ED Contacted [facility] Department ( [place] ) for info To see if titers are coming down , left message with Nurse ( [phone]): Called back received, Patient diagnosed with late latent syphilis at [facility] in [place] on 10-11 : +RPR titer 1 :256, treponema -EIA positive Completed treatment with benzathine penicillin G x 3 doses given on November 21 2013, November 28 2013 and December 052013 So appropriately treated Lumbar strain, initial encounter 09/16/2023 Anemia 09/08/2023 Assessment & Plan (09/08/2023 8:05 PM AGRICULTURAL SERVICES DIRECTOR): -possible hx of GI bleed in June, [...] disease) Assessment & Plan (09/08/2023 5:10 AM AGRICULTURAL SERVICES DIRECTOR): -continue pepcid Adjustment disorders, with mixed anxiety and dep ressed mood 09/07/2023 Assessment & Plan (09/08/2023 4:53 AM AGRICULTURAL SERVICES DIRECTOR): Per Psychiatry Cannabis use disorder, moderate, dependence 01/2024 Assessment & Plan (09/08/2023 4:53 AM AGRICULTURAL SERVICES DIRECTOR): Per Psychiatry History of syphilis 09/07/2023 Assessment & Plan (09/08/2023 12:28 PM AGRICULTURAL SERVICES DIRECTOR): - Has history of Syphilis, treated in 2013 , -Treponema ab + and RPR 1:4 on 08/29/23 when tested at [facility] ED Contacted [facility] ( [place] ) for info To see if titers are coming down , left message with Nurse ( [phone]): Called back received, Patient diagnosed with late latent syphilis at [facility] in [place] on 10-11 : +RPR titer 1 :256, [...] recs Assessment & Plan (07/27/2023 10:01 AM AGRICULTURAL SERVICES DIRECTOR): Wes has been struggling for the last 4 years with unstable realtionships, unstable housing, difficulty finding and maintaining employment, and in and out of prison/chcf/probation. He says that he is sad about [...] Med recs apprec; h/[facility]ard[facility]po Assessment & Plan (07/26/2023 9:44 AM AGRICULTURAL SERVICES DIRECTOR): Wes has been struggling for the last 4 years with unstable realtionships, unstable housing, difficulty finding and maintaining employment, and in and out of prison/chcf/probation. He says that he is sad about [...] Med recs apprec; h/o pericarditis [facility]po Assessment & Plan (07/25/2023 12:24 PM AGRICULTURAL SERVICES DIRECTOR): Wes has been struggling for the last 4 years with unstable realtionships, unstable housing, difficulty finding and maintaining employment, and in and out of prison/chcf/probation. He says that he is sad about [...] Med recs apprec; h/o pericarditis [facility] and [facility]po Assessment [...] was started on Abilify and Depakote in [place], and reports that his visual and auditory hallucinations have resolved. - Start Sertraline 50mg, consider titrating - Obtain further information about the hallucinations - Haldol 5 p.o. or Haldol 5/Ativan 2 IM PRN for agitation - Suicide/elopement/safety precautions - Therapeutic milieu - q15 min safety checks Asthma 05/22/2023 Assessment & Plan (09/29/2024 1:14 PM AGRICULTURAL SERVICES DIRECTOR): Mild. Prn albuterol Assessment & Plan (09/08/2023 5:12 AM AGRICULTURAL SERVICES DIRECTOR): - no PFTs available , currently not in exacerbation, - PRN albuteral Assessment & Plan (07/25/2023 10:37 AM AGRICULTURAL SERVICES DIRECTOR): Intermittent. No symptoms. Uses albuterol prn at [...] (11/04/2024): Added automatically from request for surgery [id number] Resolved Problems Problem Noted Date Diagnosed Date Resolved Date history of Pericarditis 09/07/202310/31 Assessment & Plan (09/08/2023 8:04 PM AGRICULTURAL SERVICES DIRECTOR): - patient has not been able to afford colchicine and reports benefit when getting doses in ED visits - continue colchicine 0.6 mg po BID and monitor for side effects, it should be held if nausea, vomiting, diarrhea -Hold NSAIDS as -he as not tolerated with significant Gi side effects -Patient was seen by Cardiology as outpatient on 09/02/2023 at [facility] ([facility]) and has [...] psychiatry Assessment & Plan (07/25/2023 10:36 AM AGRICULTURAL SERVICES DIRECTOR): Pt w/ hx of depression and anxiety [...] e alcohol) [facility] Utilities Answer Date Recorded In the past 12 months has R&V, gas, oil, or water [employer] threatened to shut off services in your [...] week 01/30/2025 How often do you attend [facility] or [facility] services? Never 01/30/2025 Do you belong to any clubs o r organizations such as zoroastrian groups, unions, fraternal or athletic groups, or [...] should administer the PHQ-9) 2 09/07/2023 [facility] of Occupat ional Health - Occupational Stress [...] any time in the past [address] [facility], were you homeless or living in a retirement (including now)? No 01/30/2025 Personal Safety Answer [...] on file Legal Sex Male 5:49 PM AGRICULTURAL SERVICES DIRECTOR Gender Identity Not on file Sexual Orientation [...] No 01/07/2025 10:40 AM CDT Seema Quintero, TERMINOLOGIST * Do you have serious difficulty walking or climbing stairs? Answer Date of Assessment Author No 01/07/2025 10:40 AM CDT Seema Quintero, TERMINOLOGIST * Do you have serious difficulty dressing or bathing? Answer Date of Assessment Author No 01/07/2025 10:40 AM CDT Seema Quintero, TERMINOLOGIST * Because of a physical, mental, or [...] by Farida Mahmood M.D. SN: Report ID: [id number] Reading Location: [id number] Procedure Note Farida Mahmood MD - 02/06/2025 [...] Farida Mahmood M.D. SN: SN Report ID: [id number] Reading Location: [place] [address] Larissa Medellin MD IMG CT PROCEDURES Final [...] BLOOD ORDERABLES Vickie arreola Result [facility] [place]) [address] [facility] [place] [address] [phone] * Differential, auto (02/06/2025 2:55 AM CDT) Neutrophil abs 2.96 1.50 - 6.50 K/cumm Imm gran abs 0.03 0.00 - 0.10 K/cumm [facility] ([place]) Lymphocyte abs 2.10 0.80 - 3.30 K/cumm [facility] ([place]) Monocyte abs 0.76 0.20 - 0.80 K/cumm [facility] ([place]) Eosinophil abs 0.12 0.00 - 0.50 K/cumm [facility] ([place]) Basophil abs 0.02 0.00 - 0.10 K/cumm [facility] ([place]) Neutrophil pct 49.4 % [facility] ([place]) Comment: Interpretive Data Percent cell count reference ranges are not reported, since discordance with absolute values may lead to misinterpretation of CBC data. Current Interpretive Data was last revised on 2017. Imm gran pct 0.5 % [facility] ([place]) Comment: Interpretive Data Percent cell count reference ranges are not reported, since discordance with absolute values may lead to misinterpretation of CBC data. Current Interpretive Data was last revised on 2017. Lymphocyte pct 35.1 % [facility] ([place] Comment: Interpretive Data Percent cell count reference ranges are not reported, since discordance with absolute values may lead to misinterpretation of CBC data. Current Interpretive Data was last revised on 2017. Monocyte pct 12.7 % [facility] ([place]) Comment: Interpretive Data Percent cell count reference ranges are not reported, since discordance with absolute values may lead to misinterpretation of CBC data. Current Interpretive Data was last revised on 2017. Eosinophil pct 2.0 % [facility] ([place] Comment: Interpretive Data Percent cell count reference ranges are not reported, since discordance with absolute values may lead to misinterpretation of CBC data. Current Interpretive Data was last revised on 2017. Basophil pct 0.3 % [facility] ([place] Comment: Interpretive Data Percent cell count reference ranges are not reported, since discordance with absolute values may lead to misinterpretation of CBC data. Current Interpretive Data was last revised on 2017. Blood 02/06/2025 2:55 AM CDT 02/06/2025 3:00 AM CDT Larissa Medellin MD LAB BLOOD ORDERABLES Vickie l Result [facility] ([place]) 1 [facility] [place] [address] * (ABNORMAL) CBC with auto differential (02/06/2025 [...] Vickie l Result [facility] 1 [facility] [place] [address] * Lipase (02/06/2025 2:55 AM CDT) Lipase 21 10 - 99 Units/L Blood 02/06/2025 2:55 AM CDT 02/06/2025 3:26 AM CDT Larissa Medellin MD LAB BLOOD ORDERABLES Vickie l Result [facility] ([place]) 1 [facility] Department [place] [address] * Comprehensive metabolic panel (02/06/2025 2:55 AM [...] Vickie arreola Result [facility] 1 [facility] Department [place] [address] * (ABNORMAL) Urinalysis reflex to microscopic and culture Urine (02/02/2025 4:11 AM CDT) Color, ur Yellow Yellow Clarity, ur Clear Clear [facility] Specific gravity, ur 1.032(H) 1.003 - 1.030 [facility] pH, urine 6.0 [facility] Comment: Interpretive Data U rine pH is affected by diet, medications, systemic acid-base disturbances, and renal tubular function. pH may affect urinary stone formation. For example, urine pH below 6.0 may help reduce the tendency for calcium phosphate stones and pH greater than 6.0 may reduce the tendency for uric acid stone formation. Source: [facility] Current Interpretive Data was last revised on 2017 Protein, ur ql Trace Negative [facility] Glucose, ur ql Negative Negative [facility] Ketones, ur Negative Negative [facility] Bilirubin, ur Negative Negative [facility] Blood, ur Trace(A) Negative [facility] Urobilinogen, ur <2.0 <2.0 mg/dL [facility] Nitrite, ur Negative Negative [facility] Leukocyte esterase, ur Negative Negative [facility] UA reflex comment Reflex to microscopic UA will be performed. [facility] Urine 02/02/2025 4:11 AM CDT 02/02/2025 4:18 AM CDT Payal [facility] LAB MICROBIOLOGY - GENER AL ORDERABLES Final Result Performing Organization Address [facility] Co de Phone Number [facility] Department [place] [address] * (ABNORMAL) Urinalysis, microscopic only (02/02/2025 4:11 AM CDT) WBC, ur 0-5 0 - 5 /HPF RBC, ur 3-5(A) 0 - 2 /HPF [facility] Mucous, ur Present(A) [facility] Hyaline casts, ur 1-5 0 - 10 /LPF [facility] Culture Reflex Comment Reflex conditions for urine culture (WBC >10) not met. [facility] Urine 02/02/2025 4:11 AM CDT 02/02/2025 4:18 AM CDT Payal [facility] LAB URINE ORDERABLES Fin al Result Performing Organization Address [facility] de Phone Number [facility] Department [place] [address] * eGFR (02/02/2025 3:50 AM CDT) eGFR [...] MTZ LAB BLOOD ORDERABLES Fin al Result [facility] [place] [address] * Differential, auto (02/02/2025 3:50 AM CDT) Neutrophil abs 2.81 1.50 - 6.50 K/cumm Imm gran abs 0.01 0.00 - 0.10 K/cumm [facility] Lymphocyte abs 2.08 0.80 - 3.30 K/cumm [facility] Monocyte abs 0.71 0.20 - 0.80 K/cumm [facility] Eosinophil abs 0.16 0.00 - 0.50 K/cumm [facility] Basophil abs 0.03 0.00 - 0.10 K/cumm [facility] Neutrophil pct 48.4 % [facility] Comment: Interpretive Data Percent cell count reference ranges are not reported, since discordance with absolute values may lead to misinterpretation of CBC data. Current Interpretive Data was last revised on 2017. Imm gran pct 0.2 % [facility] Comment: Interpretive Data Percent cell count reference ranges are not reported, since discordance with absolute values may lead to misinterpretation of CBC data. Current Interpretive Data was last revised on 2017. Lymphocyte pct 35.9 % [facility] Comment: Interpretive Data Percent cell count reference ranges are not reported, since discordance with absolute values may lead to misinterpretation of CBC data. Current Interpretive Data was last revised on 2017. Monocyte pct 12.2 % [facility] Comment: Interpretive Data Percent cell count reference ranges are not reported, since discordance with absolute values may lead to misinterpretation of CBC data. Current Interpretive Data was last revised on 2017. Eosinophil pct 2.8 % [facility] Comment: Interpretive Data Percent cell count reference ranges are not reported, since discordance with absolute values may lead to misinterpretation of CBC data. Current Interpretive Data was last revised on 2017. Basophil pct 0.5 % [facility] Comment: Interpretive Data Percent cell count reference ranges are not reported, since discordance with absolute values may lead to misinterpretation of CBC data. Current Interpretive Data was last revised on 2017. Blood 02/02/2025 3:50 AM CDT 02/02/2025 4:09 AM CDT Payal [facility] LAB BLOOD ORDERABLES Fin al Result Performing Organization Address City/[facility]/ZIP Co de Phone Number [facility] Department [place] [address] * CBC with auto differential (02/02/2025 3:50 AM CDT) WBC 5.80 3.80 - 9.90 K/cumm Hgb 13.2 13.0 - 17.5 g/dL [facility] Hct 40.4 38.9 - 50.3 % [facility] Plt 252 150 - 400 K/cumm [facility] MPV 9.9 9.1 - 12.3 fL [facility] RBC 4.70 4.30 - 5.80 M/cumm [facility] MCV 86.0 81.3 - 96.4 fL [facility] MCH 28.1 27.1 - 33.3 pg [facility] MCHC 32.7 32.3 - 35.7 g/dL [facility] RDW CV 13.7 11.1 - 14.9 % [facility] RDW SD 42.8 35.7 - 48.1 fL [facility] NRBC abs 0.00 0.00 - 0.01 K/cumm [facility] Blood 02/02/2025 3:50 AM CDT 02/02/2025 4:09 AM CDT Payal MT[facility] LAB BLOOD ORDERABLES Fin al Result [facility] Department [place] [address] * Lipase (02/02/2025 3:50 AM CDT) Pathologist [facility] Lipase 32 10 - 99 Units/L Blood 02/02/2025 3:50 AM CDT 02/02/2025 4:08 AM CDT Payal MTZ LAB BLOOD ORDERABLES Fin al Result [facility] Department [place] [address] * Comprehensive metabolic panel (02/02/2025 3:50 AM CDT) [facility] Sodium 140 135 - 145 mmol/L Potassium, pl 4.0 3.3 - 4.9 mmol/L [facility] Chloride 105 97 - 110 mmol/L [facility] CO2 26 22 - 32 mmol/L [facility] Anion gap 9 2 - 15 mmol/L [facility] BUN 14 6 - 25 mg/dL [facility] Creatinine 1.18 0.80 - 1.30 mg/dL [facility] Glucose 106 70 - 199 mg/dL [facility] Comment: Interpretive Data Fasting glucose >/= [...] 2022. Calcium 9.0 8.5 - 10.3 mg/dL [facility] Bilirubin, total <0.2 0.1 - 1.2 mg/dL [facility] Comment:Reviewed Protein, pl 7.2 6.5 - 8.5 g/dL [facility] Albumin 4.2 3.5 - 5.0 g/dL [facility] Alk phos 67 40 - 130 Units/L [facility] ALT 26 7 - 55 Units/L [facility] AST 22 10 - 50 Units/L [facility] Blood 02/02/2025 3:50 AM CDT 02/02/2025 4:08 AM CDT Payal [facility] LAB BLOOD ORDERABLES Fin al Result [facility] Department [place] [address] * eGFR (01/30/2025 6:43 AM CDT) eGFR [...] Miranda MD LAB BLOOD ORDERABLES Final Result [facility] [address] [facility] Department [place] [address] * (ABNORMAL) Differential, auto (01/30/2025 6:43 AM CDT) Pathologist [facility] Neutrophil abs 5.11 1.50 - 6.50 K/cumm Imm gran abs 0.02 0.00 - 0.10 K/cumm [facility] Lymphocyte abs 1.85 0.80 - 3.30 K/cumm [facility] Monocyte abs 0.96(H) 0.20 - 0.80 K/cumm [facility] Eosinophil abs 0.04 0.00 - 0.50 K/cumm [facility] Basophil abs 0.01 0.00 - 0.10 K/cumm [facility] Neutrophil pct 63.9 % [facility] Comment: Interpretive Data Percent cell count reference ranges are not reported, since discordance with absolute values may lead to misinterpretation of CBC data. Current Interpretive Data was last revised on 2017. Imm gran pct 0.3 % [facility] Comment: Interpretive Data Percent cell count reference ranges are not reported, since discordance with absolute values may lead to misinterpretation of CBC data. Current Interpretive Data was last revised on 2017. Lymphocyte pct 23.2 % [facility] Comment: Interpretive Data Percent cell count reference ranges are not reported, since discordance with absolute values may lead to misinterpretation of CBC data. Current Interpretive Data was last revised on 2017. Monocyte pct 12.0 % [facility] Comment: Interpretive Data Percent cell count reference ranges are not reported, since discordance with absolute values may lead to misinterpretation of CBC data. Current Interpretive Data was last revised on 2017. Eosinophil pct 0.5 % [facility] Comment: Interpretive Data Percent cell count reference ranges are not reported, since discordance with absolute values may lead to misinterpretation of CBC data. Current Interpretive Data was last revised on 2017. Basophil pct 0.1 % [facility] Comment: Interpretive Data Percent cell count reference ranges are not reported, since discordance with absolute values may lead to misinterpretation of CBC data. Current Interpretive Data was last revised on 2017. Blood 01/30/2025 6:43 AM CDT 01/30/2025 7:01 AM CDT Bry Miranda MD LAB BLOOD ORDERABLES Final Result Performing Organization Address City/[facility] Co de Phone Number PRISCILLA [address] [email or web address] [address] * (ABNORMAL) CBC with auto differential (01/30/2025 6:43 AM CDT) [facility] WBC 7.99 3.80 - 9.90 K/cumm Hgb 12.7(L) 13.0 - 17.5 g/dL [facility] Hct 38.7(L) 38.9 - 50.3 % [facility] Plt 211 150 - 400 K/cumm [facility] MPV 9.5 9.1 - 12.3 fL [facility] RBC 4.57 4.30 - 5.80 M/cumm [facility] MCV 84.7 81.3 - 96.4 fL [facility] MCH 27.8 27.1 - 33.3 pg [facility] MCHC 32.8 32.3 - 35.7 g/dL [facility] RDW CV 14.0 11.1 - 14.9 % [facility] RDW SD 42.9 35.7 - 48.1 fL [facility] NRBC abs 0.00 0.00 - 0.01 K/cumm [facility] Blood 01/30/2025 6:43 AM CDT 01/30/2025 7:01 AM CDT Bry Miranda MD LAB BLOOD ORDERABLES Final Result Performing Organization Address City/[facility] Co de Phone Number PRISCILLA [address] [place] [address] * Comprehensive metabolic panel (01/30/2025 6:43 AM CDT) [facility] Sodium 140 135 - 145 mmol/L Potassium, pl 4.0 3.3 - 4.9 mmol/L [facility] Chloride 105 97 - 110 mmol/L [facility] CO2 23 22 - 32 mmol/L [facility] Anion gap 12 2 - 15 mmol/L [facility] BUN 13 6 - 25 mg/dL [facility] Creatinine 1.10 0.80 - 1.30 mg/dL [facility] Glucose 109 70 - 199 mg/dL [facility] Comment: Interpretive Data Fasting glucose >/= 126 [...] 2022. Calcium 9.4 8.5 - 10.3 mg/dL [facility] Bilirubin, total 0.5 0.1 - 1.2 mg/dL [facility] Protein, pl 7.0 6.5 - 8.5 g/dL [facility] Albumin 4.1 3.5 - 5.0 g/dL [facility] Alk phos 58 40 - 130 Units/L [facility] ALT 25 7 - 55 Units/L [facility] AST 21 10 - 50 Units/L [facility] Blood 01/30/2025 6:43 AM CDT 01/30/2025 7:01 AM CDT Bry Miranda MD LAB BLOOD ORDERABLES Final Result [facility] [address] [facility] Department [place] [address] * Troponin T high-sensitivity (01/30/2025 [...] ORDERABLES Fin al Result Performing Organization Address [facility] de Phone Number PRISCILLA [address] [email or web address] [address] * eGFR (01/30/2025 3:31 AM CDT) eGFR [...] ORDERABLES Fin al Result Performing Organization Address [facility] de Phone Number PRISCILLA [address] [facility] [email or web address] [address] * Renal function panel (01/30/2025 3:31 AM CDT) Pathologist [facility] Sodium 138 135 - 145 mmol/L Potassium, pl 3.8 3.3 - 4.9 mmol/L [facility] Comment:Hemolyzed; Potassium value may be falsely elevated by as much as 1.0 mmol/L. Suggest redraw and reanalysis. Chloride 103 97 - 110 mmol/L [facility] CO2 24 22 - 32 mmol/L [facility] Anion gap 11 2 - 15 mmol/L [facility] BUN 13 6 - 25 mg/dL [facility] Creatinine 1.00 0.80 - 1.30 mg/dL [facility] Glucose 111 70 - 199 mg/dL [facility] Comment: Interpretive Data Fasting glucose >/= 126 [...] 2022. Calcium 9.6 8.5 - 10.3 mg/dL [facility] Phosphorus, pl 3.8 2.3 - 4.5 mg/dL [facility] Albumin 4.7 3.5 - 5.0 g/dL [facility] Blood 01/30/2025 3:31 AM CDT 01/30/2025 3:35 AM CDT us Renetta Echols MD LAB BLOOD ORDERABLES Fin al Result [facility] [address] [facility] Department [place] [address] * ECG 12 lead (01/30/2025 2:25 AM CDT) Ventricular Rate EKG/Min 76 BPM [facility] Atrial Rate 76 BPM [facility] MN-Interval (MSEC) 174 ms [facility] QRS-Interval (MSEC) 114 ms [facility] QT-Interval (MSEC) 378 ms [facility] QTc 425 ms [facility] P Keiser 29 degrees [facility] R Keiser 74 degrees [facility] T Keiser 21 degrees [facility] Diagnosis Normal sinus rhythm Possible Left atrial enlargement Left ventricular hypertrophy ST elevation, consider early repolarization, pericarditis, or injury Marked T wave abnormality consider anterolateral ischemia Confirmed by NICK ULRICH M.D. ([id number]) on 01/30/2025 4:32:43 PM [facility] 01/30/2025 2:25 AM CDT 01/30/2025 4:32 PM CDT Renetta Echols MD ECG ORDERABLES Final Re sult [facility] * eGFR (01/29/2025 10:36 PM CDT) eGFR [...] LAB BLOOD ORDERABLES Fin al Result PR[facility]CILLA [address] [facility] Department [place] [address] * Differential, auto (01/29/2025 10:36 PM CDT) Neutrophil abs 5.66 1.50 - 6.50 K/cumm Imm gran abs 0.02 0.00 - 0.10 K/cumm [facility] Lymphocyte abs 0.97 0.80 - 3.30 K/cumm [facility] Monocyte abs 0.65 0.20 - 0.80 K/cumm [facility] Eosinophil abs 0.00 0.00 - 0.50 K/cumm [facility] Basophil abs 0.00 0.00 - 0.10 K/cumm [facility] Neutrophil pct 77.5 % [facility] Comment: Interpretive Data Percent cell count reference ranges are not reported, since discordance with absolute values may lead to misinterpretation of CBC data. Current Interpretive Data was last revised on 2017. Imm gran pct 0.3 % [facility] Comment: Interpretive Data Percent cell count reference ranges are not reported, since discordance with absolute values may lead to misinterpretation of CBC data. Current Interpretive Data was last revised on 2017. Lymphocyte pct 13.3 % [facility] Comment: Interpretive Data Percent cell count reference ranges are not reported, since discordance with absolute values may lead to misinterpretation of CBC data. Current Interpretive Data was last revised on 2017. Monocyte pct 8.9 % [facility] Comment: Interpretive Data Percent cell count reference ranges are not reported, since discordance with absolute values may lead to misinterpretation of CBC data. Current Interpretive Data was last revised on 2017. Eosinophil pct 0.0 % [facility] Comment: Interpretive Data Percent cell count reference ranges are not reported, since discordance with absolute values may lead to misinterpretation of CBC data. Current Interpretive Data was last revised on 2017. Basophil pct 0.0 % [facility] Comment: Interpretive Data Percent cell count reference ranges are not reported, since discordance with absolute values may lead to misinterpretation of CBC data. Current Interpretive Data was last revised on 2017. Blood 01/29/2025 10:3 6 PM CDT 01/29/2025 10:38 PM CDT us Renetta Echols MD LAB BLOOD ORDERABLES Fin al Result PR[facility]CILLA [address] [facility] Department [place] [address] * (ABNORMAL) Urinalysis reflex to microscopic and culture Urine (01/29/2025 10:36 PM CDT) Color, ur Yellow Yellow Clarity, ur Clear Clear [facility] Specific gravity, ur 1.025 1.003 - 1.030 [facility] pH, urine 5.5 [facility] Comment: Interpretive Data U rine pH is affected by diet, medications, systemic acid-base disturbances, and renal tubular function. pH may affect urinary stone formation. For example, urine pH below 6.0 may help reduce the tendency for calcium phosphate stones and pH greater than 6.0 may reduce the tendency for uric acid stone formation. Source: [facility] Current Interpretive Data was last revised on 2017 Protein, ur ql Negative Negative [facility] Glucose, ur ql Negative Negative [facility] Ketones, ur Negative Negative [facility] Bilirubin, ur Negative Negative [facility] Blood, ur 2+(A) Negative [facility] Urobilinogen, ur <2.0 <2.0 mg/dL [facility] Nitrite, ur Negative Negative [facility] Leukocyte esterase, ur Negative Negative [facility] UA reflex comment Reflex to microscopic UA will be performed. [facility] Urine 01/29/2025 10:3 6 PM CDT 01/29/2025 10:38 PM CDT us Renetta Echols MD LAB MICROBIOLOGY - GENER AL ORDERABLES Final Result [place] [address] [facility] Department [place] [address] * CBC with auto differential (01/29/2025 10:36 PM CDT) Pathologist [facility] WBC 7.30 3.80 - 9.90 K/cumm Hgb 13.7 13.0 - 17.5 g/dL [facility] Hct 41.6 38.9 - 50.3 % [facility] Plt 257 150 - 400 K/cumm [facility] MPV 9.7 9.1 - 12.3 fL [facility] RBC 4.88 4.30 - 5.80 M/cumm [facility] MCV 85.2 81.3 - 96.4 fL [facility] MCH 28.1 27.1 - 33.3 pg [facility] MCHC 32.9 32.3 - 35.7 g/dL [facility] RDW CV 13.7 11.1 - 14.9 % [facility] RDW SD 42.6 35.7 - 48.1 fL [facility] NRBC abs 0.00 0.00 - 0.01 K/cumm [facility] Blood Venous blood specimen / Unknown 01/29/2025 10:36 PM CDT 01/29/2025 10:38 PM CDT Renetta Echols MD LAB BLOOD ORDERABLES Fin al Result Performing Organization Address [facility] de Phone Number [address] [email or web address] [address] * (ABNORMAL) Urinalysis, microscopic only (01/29/2025 10:36 PM CDT) WBC, ur 0-5 0 - 5 /HPF RBC, ur 6-10(A) 0 - 2 /HPF [facility] Mucous, ur Present(A) [facility] Culture Reflex Comment Reflex conditions for urine culture (WBC >10) not met. [facility] Urine 01/29/2025 10:3 6 PM CDT 01/29/2025 10:38 PM CDT Renetta Echols MD LAB URINE ORDERABLES Fin al Result Performing Organization Address [facility] de Phone Number [address] [address] * Lipase (01/29/2025 10:36 PM CDT) Lipase 24 10 - 99 Units/L Blood Venous blood specimen / Unknown 01/29/2025 10:36 PM CDT 01/29/2025 10:38 PM CDT Renetta Echols MD LAB BLOOD ORDERABLES Fin al Result Performing Organization Address [facility] de Phone Number PRISCILLA [address] [facility] Department [place] [address] * (ABNORMAL) Comprehensive metabolic panel (01/29/2025 10:36 PM CDT) Sodium 137 135 - 145 mmol/L Potassium, pl 4.3 3.3 - 4.9 mmol/L [facility] Chloride 104 97 - 110 mmol/L [facility] CO2 21(L) 22 - 32 mmol/L [facility] Anion gap 12 2 - 15 mmol/L [facility] BUN 13 6 - 25 mg/dL [facility] Creatinine 1.04 0.80 - 1.30 mg/dL [facility] Glucose 121 70 - 199 mg/dL [facility] Comment: Interpretive Data Fasting glucose >/= 126 [...] 2022. Calcium 9.8 8.5 - 10.3 mg/dL [facility] Bilirubin, total 0.4 0.1 - 1.2 mg/dL [facility] Protein, pl 7.9 6.5 - 8.5 g/dL [facility] Albumin 4.8 3.5 - 5.0 g/dL [facility] Alk phos 68 40 - 130 Units/L [facility] ALT 29 7 - 55 Units/L [facility] AST 25 10 - 50 Units/L [facility] Blood 01/29/2025 10:3 6 PM CDT 01/29/2025 10:38 PM CDT us Renetta Echols MD LAB BLOOD ORDERABLES Fin al Result [facility]LLA [address] [facility] Department [place] [address] * TRANSTHORACIC ECHO (TTE) COMPLETE W DOPPLER/CF WO CONTRAST (01/29/2025 7:59 AM CDT) EF Mod BP 58 % CONS SCIMAGE Anatomical Region Laterality Modality Ultrasound 01/29/2025 7:04 AM CDT Narrative 01/29/2025 9:10 AM CDT [facility] [place] [address] Transthoracic Echocardiographic Report Patient Name: KIMBERLEY ESCOBAR L : 1990 (34y 10m) Gender: M Study Date: 01/29/2025 07:04:02 AM Ht(Inch): 71 Wt(Lb): 173.94 BSA: 1.99 College Archivist: Manas Lopez RDCS Location: [id number] Order Provider: ARLETH JOHNSON Heart Rate: 51 [...] Procedure Note Triston Mosher MD - 01/29/2025 [facility] [place] [address] Transthoracic Echocardiographic Report Patient Name: KIMBERLEY ESCOBAR L : 1990 (34y 10m) Gender: M Study Date: 01/29/2025 07:04:02 AM Ht(Inch): 71 Wt(Lb): 173.94 BSA: 1.99 College Archivist: Manas Lopez RDCS Location: [id number] Order Provider: ARLETH DIXON Heart Rate: 51 [...] LA Length 4C 6.28 cm MV Decel Psoi803.95 msec [ 104.00 - 258.00 ] LA [...] Trop I hs delta 1 ng/L PR[facility] Trop I hs interp Insignificant [facility] Blood 01/28/2025 2:33 AM CDT 01/28/2025 3:48 AM CDT us Navarro Alston MD PhD LAB BLOOD ORDERABLES F inal Result [facility] [address] [facility] [place] [address] * XR Chest PA Lateral 2 Views [...] LAB BLOOD ORDERABLES F inal Result [facility] [place] [address] * eGFR (01/28/2025 12:33 AM CDT) Pathologist [facility] eGFR 87 >=60 mL/min/1. 73 m2 Comment: [...] ORDERABLES Vickie l Result Performing Organization Address [facility] Co de Phone Number [facility] [place] [address] * Differential, auto (01/28/2025 12:33 AM CDT) Pathologist [facility] Neutrophil abs 2.75 1.50 - 6.50 K/cumm Imm gran abs 0.01 0.00 - 0.10 K/cumm [facility] Lymphocyte abs 1.65 0.80 - 3.30 K/cumm [facility] Monocyte abs 0.58 0.20 - 0.80 K/cumm [facility] Eosinophil abs 0.27 0.00 - 0.50 K/cumm [facility] Basophil abs 0.01 0.00 - 0.10 K/cumm [facility] Neutrophil pct 52.2 % [facility] Comment: Interpretive Data Percent cell count reference ranges are not reported, since discordance with absolute values may lead to misinterpretation of CBC data. Current Interpretive Data was last revised on 2017. Imm gran pct 0.2 % PRISCILLA [facility] Comment: Interpretive Data Percent cell count reference ranges are not reported, since discordance with absolute values may lead to misinterpretation of CBC data. Current Interpretive Data was last revised on 2017. Lymphocyte pct 31.3 % [facility] Comment: Interpretive Data Percent cell count reference ranges are not reported, since discordance with absolute values may lead to misinterpretation of CBC data. Current Interpretive Data was last revised on 2017. Monocyte pct 11.0 % [facility] Comment: Interpretive Data Percent cell count reference ranges are not reported, since discordance with absolute values may lead to misinterpretation of CBC data. Current Interpretive Data was last revised on 2017. Eosinophil pct 5.1 % [facility] Comment: Interpretive Data Percent cell count reference ranges are not reported, since discordance with absolute values may lead to misinterpretation of CBC data. Current Interpretive Data was last revised on 2017. Basophil pct 0.2 % [facility] Comment: Interpretive Data Percent cell count reference ranges are not reported, since discordance with absolute values may lead to misinterpretation of CBC data. Current Interpretive Data was last revised on 2017. Blood 01/28/2025 12:3 3 AM CDT 01/28/2025 12:53 AM CDT us Navarro Alston MD PhD LAB BLOOD ORDERABLES F inal Result PR[facility]LLA SANDER [address] [facility] [place] [address] * (ABNORMAL) CBC with auto differential (01/28/2025 12:33 AM CDT) WBC 5.27 3.80 - 9.90 K/cumm Hgb 12.9(L) 13.0 - 17.5 g/dL [facility] Hct 39.0 38.9 - 50.3 % [facility] Plt 232 150 - 400 K/cumm [facility] MPV 9.8 9.1 - 12.3 fL [facility] RBC 4.56 4.30 - 5.80 M/cumm [facility] MCV 85.5 81.3 - 96.4 fL [facility] MCH 28.3 27.1 - 33.3 pg [facility] MCHC 33.1 32.3 - 35.7 g/dL [facility] RDW CV 14.5 11.1 - 14.9 % [facility] RDW SD 44.2 35.7 - 48.1 fL [facility] NRBC abs 0.00 0.00 - 0.01 K/cumm [facility] Blood 01/28/2025 12:3 3 AM CDT 01/28/2025 12:53 AM CDT Navarro Alston MD PhD LAB BLOOD ORDERABLES F inal Result Performing Organization Address City/[facility]/ZIP Co de Phone Number [facility] [email or web address] [address] * CRP (acute phase) (01/28/2025 12:33 AM CDT) Pathologist [facility] CRP <0.5 <=10.0 mg/L Blood 01/28/2025 12:3 3 AM CDT 01/28/2025 12:53 AM CDT Navarro Alston MD PhD LAB BLOOD ORDERABLES F inal Result Performing Organization Address City/[facility]/ZIP Co de Phone Number [facility] [email or web address] [address] * Comprehensive metabolic panel (01/28/2025 12:33 AM CDT) Sodium 142 135 - 145 mmol/L Potassium, pl 4.1 3.3 - 4.9 mmol/L [facility] Chloride 109 97 - 110 mmol/L [facility] CO2 24 22 - 32 mmol/L [facility] Anion gap 9 2 - 15 mmol/L [facility] BUN 10 6 - 25 mg/dL [facility] Creatinine 1.14 0.80 - 1.30 mg/dL [facility] Glucose 150 70 - 199 mg/dL [facility] Comment: Interpretive Data Fasting glucose >/= [...] 2022. Calcium 9.4 8.5 - 10.3 mg/dL [facility] Bilirubin, total 0.3 0.1 - 1.2 mg/dL [facility] Protein, pl 7.2 6.5 - 8.5 g/dL [facility] Albumin 4.0 3.5 - 5.0 g/dL [facility] Alk phos 65 40 - 130 Units/L [facility] ALT 45 7 - 55 Units/L [facility] AST 41 10 - 50 Units/L [facility] Blood 01/28/2025 12:3 3 AM CDT 01/28/2025 12:53 AM CDT us Rupert Kaplan MD LAB BLOOD ORDERABLES Final Result [facility] [address] [facility] Department of Laboratories [place], [place] [id number] * (ABNORMAL) ECG 12-LEAD (01/28/2025 12:14 AM CDT) Narrative [facility] - 01/28/2025 12:14 AM CDT Rupert Kaplan MD 01/28/2025 12:15 AM ECG 12 lead Date/Time: 01/28/2025 12:14 AM Performed by: Rupert Kaplan MD Authorized by: Dara Li MD Interpretation: Interpretation: abnormal Comments: Sinus rhythm, heart rate 69. Borderline right axis. Normal intervals. Diffuse ST elevations with ST-depression in AVR. Mild diffuse [place] depression. Compared with prior, 01/13/2025, relatively unchanged. Most likely pericarditis. us Rupert Kaplan MD ECG ORDERABLES Final Result [facility] * eGFR (01/18/2025 1:39 AM CDT) [...] BLOOD ORDERABLES Final Resul t PRISCILLA ARREOLA [place]) [address] [facility] Department [place] [address] * Differential, auto (01/18/2025 1:39 AM CDT) [...] Final Resul t [facility] ([facility]) [address] [facility] [place] [address] * CBC with auto differential (01/18/2025 1:39 [...] Final Resul t [facility]LLA [facility]OL[facility] ([place]) [address] [facility] [email or web address] [address] * Basic metabolic panel (01/18/2025 1:39 AM CDT) Sodium 142 135 - 145 mmol/L Potassium, pl 3.7 3.3 - 4.9 mmol/L [facility] ([place]) Chloride 106 97 - 110 mmol/L [facility] ([place]) CO2 23 22 - 32 mmol/L [facility] ([place]) Anion gap 13 2 - 15 mmol/L [facility] ([place]) BUN 14 6 - 25 mg/dL [facility] ([place]) Creatinine 1.10 0.80 - 1.30 mg/dL [facility] ([place]) Glucose 141 70 - 199 mg/dL [facility] ([place]) Comment: Interpretive Data Fasting glucose >/= 126 [...] 2022. Calcium 8.9 8.5 - 10.3 mg/dL [facility] ([place]) Blood 01/18/2025 1:39 AM CDT 01/18/2025 1:43 AM CDT us Luana Beckett MD LAB BLOOD ORDERABLES Final Resul t [facility] ([place]) [address] [facility] Department of Laboratories [place], [place] [id number] * Troponin T high-sensitivity 2-hour (01/13/2025 10:45 AM CDT) Trop T hs <6 <=22 ng/L Comment: Interpretive Data For further hscTnT resources including the diagnostic algorithm and an aid in interpretation, copy and paste this link: https://nrl.testcatalog.org/show/hsTrop Current Interpretive Data last revised 2020. Trop T hs delta 0 ng/L [facility] Trop T hs interp Insignificant [facility] Blood 01/13/2025 10:4 5 AM CDT 01/13/2025 11:08 AM CDT Ray Murphy MD LAB BLOOD ORDERABLES Final Resul t Performing Organization Address [facility] Co de Phone Number PRISCILLA [address] [address] * Influenza A/B, RSV, and COVID-19 PCR Nasopharyngeal (01/13/2025 10:45 AM CDT) Pathologist [facility] COVID-19 RNA Negative Negative Influenza A RNA Negative Negative [facility] Influenza B RNA Negative Negative [facility] RSV RNA Negative Negative [facility] Comment: Interpretive data: Testing performed by [facility]. This test is performed using the [employer] Xpert Xpress CoV-2/Flu/RSV plus assay. This is a multiplex, real-time reverse transcriptase PCR assay intended for the qualitative detection of nucleic acid from SARS-CoV-2, influenza A, influenza B, and respiratory syncytial virus. This assay has been cleared by the [place] Food and Drug administration. The performance characteristics have been verified by the [facility]. Results must be considered in the clinical context, and a negative result does not rule out infection. Interpretive Data last revised 2023 Nasopharyngeal 01/13/2025 10 :45 AM CDT 01/13/2025 10:49 AM CDT Narrative [facility] - 01/13/2025 11:53 AM CDT Is the Patient experiencing symptoms consistent with COVID?->Unknown Ray Murphy MD LAB MICROBIOLOGY - GENERAL ORDER DIEGO Final Result Performing Organization Address [facility] Co de Phone Number [facility] [place] [address] * XR Chest 1 Vw Portable (if [...] signed by Todd SHAHID T: Report ID: [id number] Reading Location: [place] [address] Procedure Note Serjio Castro MD - 01/13/2025 [...] Todd Castro M.D. ZEHRA T: Report ID: [id number] Reading Location: [place] [place] [address] us Ray Murphy MD IMG XR PROCEDURES Final Result * Erythrocyte sedimentation rate (01/13/2025 10:45 AM CDT) Pathologist [facility] Erythrocyte sedimentation rate 12 1 - 15 mm/hr Blood 01/13/2025 10:4 5 AM CDT 01/13/2025 11:08 AM CDT us Ray Murphy MD LAB BLOOD ORDERABLES Final Resul t Performing Organization Address [facility] Co de Phone Number [address] [address] * CRP (acute phase) (01/13/2025 10:45 AM CDT) Pathologist [facility] CRP 0.5 <=10.0 mg/L Blood 01/13/2025 10:4 5 AM CDT 01/13/2025 11:08 AM CDT us Ray Murphy MD LAB BLOOD ORDERABLES Final Resul t Performing Organization Address [facility] de Phone Number [address] [address] * ECG 12 lead (01/13/2025 9:08 AM CDT) [facility] Ventricular Rate EKG/Min 73 BPM [facility] Atrial Rate 73 BPM [facility] MN-Interval (MSEC) 162 ms [facility] QRS-Interval (MSEC) 104 ms [facility] QT-Interval (MSEC) 362 ms [facility] QTc 398 ms [facility] P Keiser 55 degrees [facility] R Keiser 87 degrees [facility] T Keiser 68 degrees [facility] Diagnosis Normal sinus rhythm with sinus arrhythmia Voltage criteria for left ventricular hypertrophy likely pericarditis Confirmed by NICK ULRICH M.D. ([id number]) on 01/13/2025 2:20:07 PM [facility] 01/13/2025 9:08 AM CDT 01/13/2025 2:20 PM CDT us Ray Murphy MD ECG ORDERABLES Final Result Performing Organization Address [facility]/ZIP Co de Phone Number [facility] * Troponin T high-sensitivity series (baseline, 2hr, [...] LAB BLOOD ORDERABLES Final Resul t [facility] [address] Department [place] [address] * eGFR (01/13/2025 8:59 AM CDT) eGFR [...] MD LAB BLOOD ORDERABLES Final Resul t [facility] [address] [facility] Department [place] [address] * (ABNORMAL) Differential, auto (01/13/2025 8:59 AM CDT) Neutrophil abs 5.23 1.50 - 6.50 K/cumm Imm gran abs 0.02 0.00 - 0.10 K/cumm [facility] Lymphocyte abs 0.51(L) 0.80 - 3.30 K/cumm [facility] Monocyte abs 0.20 0.20 - 0.80 K/cumm [facility] Eosinophil abs 0.00 0.00 - 0.50 K/cumm [facility] Basophil abs 0.01 0.00 - 0.10 K/cumm [facility] Neutrophil pct 87.6 % [facility] Comment: Interpretive Data Percent cell count reference ranges are not reported, since discordance with absolute values may lead to misinterpretation of CBC data. Current Interpretive Data was last revised on 2017. Imm gran pct 0.3 % [facility] Comment: Interpretive Data Percent cell count reference ranges are not reported, since discordance with absolute values may lead to misinterpretation of CBC data. Current Interpretive Data was last revised on 2017. Lymphocyte pct 8.5 % [facility] Comment: Interpretive Data Percent cell count reference ranges are not reported, since discordance with absolute values may lead to misinterpretation of CBC data. Current Interpretive Data was last revised on 2017. Monocyte pct 3.4 % [facility] Comment: Interpretive Data Percent cell count reference ranges are not reported, since discordance with absolute values may lead to misinterpretation of CBC data. Current Interpretive Data was last revised on 2017. Eosinophil pct 0.0 % [facility] Comment: Interpretive Data Percent cell count reference ranges are not reported, since discordance with absolute values may lead to misinterpretation of CBC data. Current Interpretive Data was last revised on 2017. Basophil pct 0.2 % [facility] Comment: Interpretive Data Percent cell count reference ranges are not reported, since discordance with absolute values may lead to misinterpretation of CBC data. Current Interpretive Data was last revised on 2017. Blood 01/13/2025 8:59 AM CDT 01/13/2025 9:02 AM CDT Ray Murphy MD LAB BLOOD ORDERABLES Final Resul t Performing Organization Address [facility] de Phone Number [facility] [address] [place] [address] * (ABNORMAL) CBC with auto differential (01/13/2025 8:59 AM CDT) WBC 5.97 3.80 - 9.90 K/cumm Hgb 13.4 13.0 - 17.5 g/dL [facility] Hct 41.7 38.9 - 50.3 % [facility] Plt 255 150 - 400 K/cumm [facility] MPV 9.3 9.1 - 12.3 fL [facility] RBC 4.78 4.30 - 5.80 M/cumm [facility] MCV 87.2 81.3 - 96.4 fL [facility] MCH 28.0 27.1 - 33.3 pg [facility] MCHC 32.1(L) 32.3 - 35.7 g/dL [facility] RDW CV 14.0 11.1 - 14.9 % [facility] RDW SD 44.2 35.7 - 48.1 fL [facility] NRBC abs 0.00 0.00 - 0.01 K/cumm [facility] Blood Venous blood specimen / Unknown 01/13/2025 8:59 AM CDT 01/13/2025 9:02 AM CDT us Ray Murphy MD LAB BLOOD ORDERABLES Final Resul t Performing Organization Address [facility] Co de Phone Number [address] [place] [address] * (ABNORMAL) Comprehensive metabolic panel (01/13/2025 8:59 AM CDT) Sodium 138 135 - 145 mmol/L Potassium, pl 4.5 3.3 - 4.9 mmol/L [facility] Chloride 104 97 - 110 mmol/L [facility] CO2 21(L) 22 - 32 mmol/L [facility] Anion gap 13 2 - 15 mmol/L [facility] BUN 9 6 - 25 mg/dL [facility] Creatinine 0.98 0.80 - 1.30 mg/dL [facility] Glucose 126 70 - 199 mg/dL [facility] Comment: Interpretive Data Fasting glucose >/= 126 [...] 2022. Calcium 9.6 8.5 - 10.3 mg/dL [facility] Bilirubin, total 0.3 0.1 - 1.2 mg/dL [facility] Protein, pl 7.7 6.5 - 8.5 g/dL [facility] Albumin 4.5 3.5 - 5.0 g/dL [facility] Alk phos 64 40 - 130 Units/L [facility] ALT 63(H) 7 - 55 Units/L [facility] AST 42 10 - 50 Units/L [facility] Blood 01/13/2025 8:59 AM CDT 01/13/2025 9:02 AM CDT us Ray Murphy MD LAB BLOOD ORDERABLES Final Resul t [facility] [address] [facility] Department [place] [address] * (ABNORMAL) Urinalysis reflex to microscopic and culture Urine (01/06/2025 12:40 AM CDT) Color, ur Yellow Yellow Clarity, ur Clear Clear [facility] Specific gravity, ur 1.023 1.003 - 1.030 [facility] ([place]) pH, urine 5.5 [...] uric acid stone formation. Source: [facility] Current Interpretive Data was last [...] DERABLES Final Result [facility] ([place]) [address] [facility] Department [place] [address] * (ABNORMAL) Drugs of Abuse Screen, Urine [...] 01/06/2025 12:58 AM CDT Narrative [facility] ([place]) - 01/06/2025 1:24 AM CDT Drug of Abuse screening is performed by immunoassay for medical purposes only. This is not to be used for Pain Management purposes. us Jose Sullivan MD LAB URINE ORDERABLES Final Re sult [facility] ([place]) [address] [facility] Department of Laboratories [place], [place] [id number] * (ABNORMAL) Urinalysis, microscopic only (01/06/2025 12:40 [...] LAB URINE ORDERABLES Final Re sult [facility] ([place]) [address] [facility] Department [place] [address] * Urine culture Urine (01/06/2025 12:40 AM CDT) Report Final Report: Less than 100,000 colonies/mL (clinically insignificant growth based on current clinical standards) Comment:Testing performed by : [facility], [address] [facility]., [address] Organism (CLINICALLY INSIGNIFICANT GROWTH [facility] ([place]) Urine 01/06/2025 12:4 0 AM CDT 01/06/2025 6:07 AM CDT Narrative [facility] ([place]) - 01/07/2025 12:32 PM CDT Urine culture reflexed based upon urinalysis results. Testing performed by [facility] Microbiology Laboratory ([phone]) us Jose Sullivan MD LAB MICROBIOLOGY - GENERAL OR DERABLES Final Result [facility] ([place]) [address] [facility] [employer] [place] [address] * COVID-19 Coronavirus RNA Nasopharyngeal (01/06/2025 12:32 AM CDT) COVID-19 RNA Negative Negative Nasopharyngeal 01/06/2025 12 :32 AM CDT 01/06/2025 12:47 AM CDT Narrative [facility] ([place]) - 01/06/2025 1:25 AM CDT Is the patient experiencing any symptoms consistent with COVID (eg. Fever, cough, shortness of breath)?->No What is the reason for testing?->Screening for semi-private room placement Interpretive data: Testing performed by [facility]. This test is performed using the [employer] Xpert Xpress CoV-2 plus assay. This is a real-time RT-PCR test intended for the qualitative detection of nucleic acid from the SARS-CoV-2. This assay has been cleared by the [place] Food and Drug administration. The performance characteristics have been verified by [facility]. Results must be considered in the clinical context, and a negative result does not rule out infection. Interpretive data last revised 2024. Interpretive data: Testing performed by [facility]. This test is performed using the [employer] Xpert Xpress CoV-2 plus assay. This is a real-time RT-PCR test intended for the qualitative detection of nucleic acid from the SARS-CoV-2. This assay has been cleared by the [place] Food and Drug administration. The performance characteristics have been verified by [facility]. Results must be considered in the clinical context, and a negative result does not rule out infection. Interpretive data last revised 2024. us Jose Sullivan MD LAB MICROBIOLOGY - GENERAL OR DERABLES Final Result [facility] ([place]) [address] [facility] Department [place] [address] * eGFR (01/06/2025 12:32 AM CDT) eGFR [...] BLOOD ORDERABLES Final Re sult [facility] ([place]) [address] [facility] Department [place] [address] * Differential, auto (01/06/2025 12:32 AM CDT) [...] ORDERABLES Final Re sult Performing Organization Address City/[facility]/ZIP Co de Phone Number [facility] ([place]) 1 [facility] [email or web address] [address] * Thyroid Function [place] (01/06/2025 12:32 AM CDT) TSH 1.00 0.30 - 4.20 mcIUnit/mL Blood 01/06/2025 12:3 2 AM CDT 01/06/2025 12:47 AM CDT Jose Sullivan MD LAB BLOOD ORDERABLES Final Re sult Performing Organization Address City/[facility]/ZIP Co de Phone Number [facility] ([place]) 1 [facility] [email or web address] [address] * CBC with auto differential (01/06/2025 12:32 AM CDT) WBC 7.86 3.80 - 9.90 K/cumm Hgb 13.4 13.0 - 17.5 g/dL [facility] Hct 41.2 38.9 - 50.3 % [facility] ([place]) Plt 259 150 - 400 K/cumm [facility] ([place]) MPV 10.2 9.1 - 12.3 fL [facility] ([place]) RBC 4.65 4.30 - 5.80 M/cumm [facility] ([place]) MCV 88.6 81.3 - 96.4 fL [facility] ([place]) MCH 28.8 27.1 - 33.3 pg [facility] ([place]) MCHC 32.5 32.3 - 35.7 g/dL [facility] ([place] RDW CV 13.5 11.1 - 14.9 % [facility] ([place] RDW SD 43.3 35.7 - 48.1 fL [facility] ([place]) NRBC abs 0.00 0.00 - 0.01 K/cumm [facility] ([place] Blood Venous blood specimen / Unknown 01/06/2025 12:32 AM CDT 01/06/2025 12:47 AM CDT us Jose Sullivan MD LAB BLOOD ORDERABLES Final Re sult Performing Organization Address City/[facility]/ZIP Co de Phone Number PR[facility]LLA JohnsonFR[place]NO) [address] [facility] [place] [address] * Ethanol (01/06/2025 12:32 AM CDT) Ethanol <10 <=10 mg/dL Comment: Interpretive Data Legal limit of intoxication > or = 80 mg/dL Levels > or = 400 mg/dL are potentially TOXIC. Current interpretive data was last revised on 2018. Blood 01/06/2025 12:3 2 AM CDT 01/06/2025 12:47 AM CDT us Jose Sullivan MD LAB BLOOD ORDERABLES Final Re sult [facility] ([place]) [address] [facility] Department [place] [address] * (ABNORMAL) Comprehensive metabolic panel (01/06/2025 12:32 [...] BLOOD ORDERABLES Final Re sult [facility] ([place]) [address] [facility] Department [place] [address] * eGFR (01/01/2025 10:28 PM CDT) eGFR [...] LAB BLOOD ORDERABLES Final R esult [facility] [address] [facility] [place] [address] * (ABNORMAL) Differential, auto (01/01/2025 10:28 PM CDT) Neutrophil abs 4.69 1.50 - 6.50 K/cumm Imm gran abs 0.02 0.00 - 0.10 K/cumm [facility] Lymphocyte abs 1.78 0.80 - 3.30 K/cumm [facility] Monocyte abs 0.87(H) 0.20 - 0.80 K/cumm [facility] Eosinophil abs 0.17 0.00 - 0.50 K/cumm [facility] Basophil abs 0.03 0.00 - 0.10 K/cumm [facility] Neutrophil pct 62.1 % [facility] Comment: Interpretive Data Percent cell count reference ranges are not reported, since discordance with absolute values may lead to misinterpretation of CBC data. Current Interpretive Data was last revised on 2017. Imm gran pct 0.3 % [facility] Comment: Interpretive Data Percent cell count reference ranges are not reported, since discordance with absolute values may lead to misinterpretation of CBC data. Current Interpretive Data was last revised on 2017. Lymphocyte pct 23.5 % [facility] Comment: Interpretive Data Percent cell count reference ranges are not reported, since discordance with absolute values may lead to misinterpretation of CBC data. Current Interpretive Data was last revised on 2017. Monocyte pct 11.5 % [facility] Comment: Interpretive Data Percent cell count reference ranges are not reported, since discordance with absolute values may lead to misinterpretation of CBC data. Current Interpretive Data was last revised on 2017. Eosinophil pct 2.2 % [facility] Comment: Interpretive Data Percent cell count reference ranges are not reported, since discordance with absolute values may lead to misinterpretation of CBC data. Current Interpretive Data was last revised on 2017. Basophil pct 0.4 % [facility] Comment: Interpretive Data Percent cell count reference ranges are not reported, since discordance with absolute values may lead to misinterpretation of CBC data. Current Interpretive Data was last revised on 2017. Blood 01/01/2025 10:2 8 PM CDT 01/01/2025 10:35 PM CDT us Irina Yeager MD LAB BLOOD ORDERABLES Final R esult [facility] [address] [facility] Department [place] [address] * (ABNORMAL) Urinalysis reflex to microscopic (01/01/2025 10:28 PM CDT) Color, ur Yellow Yellow Clarity, ur Clear Clear [facility] Specific gravity, ur 1.027 1.003 - 1.030 [facility] pH, urine 6.0 [facility] Comment: Interpretive Data U rine pH is affected by diet, medications, systemic acid-base disturbances, and renal tubular function. pH may affect urinary stone formation. For example, urine pH below 6.0 may help reduce the tendency for calcium phosphate stones and pH greater than 6.0 may reduce the tendency for uric acid stone formation. Source: [facility] Current Interpretive Data was last revised on 2017 Protein, ur ql 1+(A) Negative [facility] Glucose, ur ql Negative Negative [facility] Ketones, ur Negative Negative [facility] Bilirubin, ur Negative Negative [facility] Blood, ur 2+(A) Negative [facility] Urobilinogen, ur <2.0 <2.0 mg/dL [facility] Nitrite, ur Negative Negative [facility] Leukocyte esterase, ur Negative Negative [facility] UA reflex comment Reflex to microscopic UA will be performed. [facility] Urine 01/01/2025 10:2 8 PM CDT 01/01/2025 10:33 PM CDT Irina Yeager MD LAB URINE ORDERABLES Final R esult [facility] [address] [facility] Department [place] [address] * CBC with auto differential (01/01/2025 10:28 PM CDT) WBC 7.56 3.80 - 9.90 K/cumm Hgb 14.8 13.0 - 17.5 g/dL [facility] Hct 45.4 38.9 - 50.3 % [facility] Plt 308 150 - 400 K/cumm [facility] MPV 10.1 9.1 - 12.3 fL [facility] RBC 5.26 4.30 - 5.80 M/cumm [facility] MCV 86.3 81.3 - 96.4 fL [facility] MCH 28.1 27.1 - 33.3 pg [facility] MCHC 32.6 32.3 - 35.7 g/dL [facility] RDW CV 13.4 11.1 - 14.9 % [facility] RDW SD 42.3 35.7 - 48.1 fL [facility] NRBC abs 0.00 0.00 - 0.01 K/cumm [facility] Blood Venous blood specimen / Unknown 01/01/2025 10:28 PM CDT 01/01/2025 10:35 PM CDT Irian Yeager MD LAB BLOOD ORDERABLES Final R esult [facility] [place] [address] * (ABNORMAL) Urinalysis, microscopic only (01/01/2025 10:28 PM CDT) WBC, ur 0-5 0 - 5 /HPF RBC, ur >50(A) 0 - 2 /HPF [facility] Mucous, ur Present(A) [facility] Urine 01/01/2025 10:2 8 PM CDT 01/01/2025 10:33 PM CDT Irina Yeager MD LAB URINE ORDERABLES Final R esult [facility] [email or web address] [address] * Lipase (01/01/2025 10:28 PM CDT) Lipase 26 10 - 99 Units/L Blood Venous blood specimen / Unknown 01/01/2025 10:28 PM CDT 01/01/2025 10:34 PM CDT Result [facility] Irina Yeager MD LAB BLOOD ORDERABLES Final R esult Performing Organization Address City/[facility] Co de Phone Number [facility] Department [place] [address] * (ABNORMAL) Creatine kinase (CK), total (01/01/2025 10:28 PM CDT) [facility] CK 632(H) 40 - 300 Units/L Blood 01/01/2025 10:2 8 PM CDT 01/01/2025 10:34 PM CDT Result [facility] Irina Yeager MD LAB BLOOD ORDERABLES Final R esult Performing Organization Address [facility]/[place] [address] * Acetaminophen level (01/01/2025 10:28 PM CDT) [facility] Acetaminophen <5 <=5 mcg/mL Comment: Interpretive Data Significant hepatic injury may occur and treatment with n-acetyl cysteine is generally recommended if the acetaminophen level exceeds: 150 mcg/mL at 4 hours after ingestion 75 mcg/mL at 8 hours after ingestion 38 mcg/mL at 12 hours after ingestion 19 mcg/mL at 16 hours after ingestion Consult toxicology or poison control ([phone]) for unknown ingestion time. Current interpretive data was last revised 2023. Blood 01/01/2025 10:2 8 PM CDT 01/01/2025 10:34 PM CDT Maye Pradhan NP LAB BLOOD ORDERABLES Final Result Performing Organization Address [facility] Co de Phone Number [facility] [place] [address] * Salicylate level (01/01/2025 10:28 PM CDT) Pathologist [facility] Salicylate <9.0 <=9.0 mg/dL Comment: Interpretive Data Toxic: 30 mg/dL or greater. Current interpretive data was last revised 2023. Blood 01/01/2025 10:2 8 PM CDT 01/01/2025 10:34 PM CDT Maye Pradhan EVENT SPECIALIST PRODUCT DEMONSTRATOR LAB BLOOD ORDERABLES Final Result Performing Organization Address [facility]/[place] de Phone Number [facility] Department [place] [address] * (ABNORMAL) Valproic acid level, total (01/01/2025 10:28 PM CDT) [facility] Valproic Acid <15.0(L) 50.0 - 100.0 mcg/mL [...] BLOOD ORDERABLES Final Result Performing Organization Address [facility]/[place] de Phone Number [facility] Department [place] [address] * Comprehensive metabolic panel (01/01/2025 10:28 PM CDT) [facility] Sodium 141 135 - 145 mmol/L Potassium, pl 4.0 3.3 - 4.9 mmol/L [facility] Comment:Hemolyzed; Potassium value may be falsely elevated by as much as 0.3-0.5 mmol/L. Suggest redraw and reanalysis. Chloride 105 97 - 110 mmol/L [facility] CO2 26 22 - 32 mmol/L [facility] Anion gap 10 2 - 15 mmol/L [facility] BUN 10 6 - 25 mg/dL [facility] Creatinine 1.24 0.80 - 1.30 mg/dL [facility] Glucose 123 70 - 199 mg/dL [facility] Comment: Interpretive Data Fasting glucose >/= [...] Calcium 9.8 8.5 - 10.3 mg/dL [facility] Bilirubin, total 0.2 0.1 - 1.2 mg/dL [facility] Protein, pl 8.1 6.5 - 8.5 g/dL [facility] Albumin 4.3 3.5 - 5.0 g/dL [facility] Alk phos 78 40 - 130 Units/L [facility] ALT 40 7 - 55 Units/L [facility] AST 47 10 - 50 Units/L [facility] Comment:Hemolyzed; result ma y be falsely elevated Blood 01/01/2025 10:2 8 PM CDT 01/01/2025 10:34 PM CDT Irina Yeager MD LAB BLOOD ORDERABLES Final R esult [facility] Department [place] [address] * ANUSHKA screen w/rflx FLIP+dsDNA (12/30/2024 11:56 [...] revised on 2020. Testing performed by: [facility], [address] [place]., [address] Blood 12/30/2024 11:5 6 AM CDT 12/30/2024 3:00 PM CDT us Navarro Zuleta Jr., MD LAB BLOOD ORDERABLE S Final Result Performing Organization Address [facility] Co de Phone Number [facility] ([place]) [address] [place] [address] [email or web address] [address] * HIV 1/2 Antibody plus p24 Antigen Blood (12/30/2024 11:56 AM CDT) HIV 1/2 ab + p24 ag Nonreactive Nonreactive Comment: Nonreactive for HIV-1 antigen and HIV-1/HIV-2 antibodies. No laboratory evidence of HIV infection. If acute HIV infection is suspected, consider testing for HIV-1 RNA. Testing performed by: [facility], [address] [place] [address], [id number] Blood 12/30/2024 11:5 6 AM CDT 12/30/2024 1:50 PM CDT us Navarro Zuleta Jr., MD LAB MICROBIOLOGY - GENERAL ORDERABLES Final Result Performing Organization Address City/[facility]/ZIP Co de Phone Number [facility] ([place]) [address] [place] [address] * RPR Blood (12/30/2024 11:56 AM CDT) RPR Nonreactive Nonreactive Comment:Testing performed by : [address] [address] Blood 12/30/2024 11:5 6 AM CDT 12/30/2024 1:50 PM CDT us Navarro Zuleta Jr., MD LAB MICROBIOLOGY - GENERAL ORDERABLES Final Result Performing Organization Address City/[facility]/ZIP Co de Phone Number [facility] ([place]) 1 [facility] [email or web address] [address] * Troponin T high-sensitivity 6-hour (12/30/2024 5:09 AM CDT) Trop T hs 20 <=22 ng/L Comment: Interpretive Data For further hscTnT resources including the diagnostic algorithm and an aid in interpretation, copy and paste this link: https://nrl.testcatalog.org/show/hsTrop Current Interpretive Data last revised 2020. Trop T hs delta -9 ng/L [facility] ([place]) Trop T hs interp Equivocal [facility] ([place]) Blood 12/30/2024 5:09 AM CDT 12/30/2024 5:12 AM CDT us Larsisa Medellin MD LAB BLOOD ORDERABLES Vickie l Result PRISCILLA ARREOLA ([place]) 1 [facility] [place] [address] * eGFR (12/30/2024 5:09 AM CDT) eGFR [...] BLOOD ORDERABLES Fin al Result [facility] ([place]) 1 [facility] Department [place] [address] * (ABNORMAL) Differential, auto (12/30/2024 5:09 AM CDT) Neutrophil abs 3.85 1.50 - 6.50 K/cumm Imm gran abs 0.03 0.00 - 0.10 K/cumm [facility] ([place]) Lymphocyte abs 1.68 0.80 - 3.30 K/cumm [facility] ([place]) Monocyte abs 0.94(H) 0.20 - 0.80 K/cumm [facility] ([place]) Eosinophil abs 0.14 0.00 - 0.50 K/cumm [facility] ([place]) Basophil abs 0.02 0.00 - 0.10 K/cumm [...] Fin al Result PR[facility]A [facility] ([place]) 1 [facility] Department [place] [address] * (ABNORMAL) CBC with auto differential (12/30/2024 [...] NRBC abs 0.00 0.00 - 0.01 K/cumm [facility] ([place]) Blood 12/30/2024 5:09 AM CDT 12/30/2024 5:12 AM CDT [facility] LAB BLOOD ORDERABLES Fin al Result Performing Organization Address [facility]/ZIP Co de Phone Number PRISCILLA [facility] ([place]) 1 [facility] [email or web address] [address] * Phosphorus (12/30/2024 5:09 AM CDT) Phosphorus, pl 3.8 2.3 - 4.5 mg/dL Blood 12/30/2024 5:09 AM CDT 12/30/2024 5:12 AM CDT [facility] LAB BLOOD ORDERABLES Fin al Result Performing Organization Address [facility]/RUST de Phone Number [facility] ([place]) 1 [place] [address] * Magnesium (12/30/2024 5:09 AM CDT) Magnesium 1.8 1.4 - 2.5 mg/dL Blood 12/30/2024 5:09 AM CDT 12/30/2024 5:12 AM CDT [facility] LAB BLOOD ORDERABLES Fin al Result Performing Organization Address [facility]/RUST de Phone Number PRISCILLA [facility] ([place]) 1 [facility] [email or web address] [address] * Comprehensive metabolic panel (12/30/2024 5:09 AM CDT) Sodium 137 135 - 145 mmol/L Potassium, pl 4.8 3.3 - 4.9 mmol/L [facility] ([place]) Comment:Slightly Hemolyzed S pecimen. Results may be [...] 2022. Calcium 8.7 8.5 - 10.3 mg/dL [facility] ([place] Bilirubin, total <0.2 0.1 - [...] DO LAB BLOOD ORDERABLES Fin al Result [facility] ([place]) 1 [facility] Department [place] [address] * Erythrocyte sedimentation rate (12/30/2024 5:07 AM CDT) Erythrocyte sedimentation rate 11 1 - 15 mm/hr Blood 12/30/2024 5:07 AM CDT 12/30/2024 6:46 AM CDT us Navarro Zuleta Jr., MD LAB BLOOD ORDERABLE S Final Result PRISCILLA ARREOLA ([place]) 1 [facility] [email or web address] [address] * CRP (acute phase) (12/30/2024 5:07 AM CDT) [facility] CRP <3.0 <=10.0 mg/L Blood 12/30/2024 5:07 AM CDT 12/30/2024 6:48 AM CDT Navarro Zuleta Jr., MD LAB BLOOD ORDERABLE S Final Result Performing Organization Address [facility] Co de Phone Number PRISCILLA ARREOLA ([place]) 1 [facility] of [email or web address] [address] * (ABNORMAL) Troponin T high-sensitivity 2-hour (12/30/2024 12:43 AM CDT) [facility] Trop T hs 26(H) <=22 ng/L Comment: [...] BLOOD ORDERABLES Vickie l Result PRISCILLA ARREOLA ([place]) 1 [facility] [place] [address] * Lipase (12/30/2024 12:43 AM CDT) Lipase 25 10 - 99 Units/L Blood 12/30/2024 12:4 3 AM CDT 12/30/2024 1:46 AM CDT Kelly Knight DO LAB BLOOD ORDERABLES Fin al Result Performing Organization Address [facility] Co de Phone Number [facility] ([place]) 1 [place] [address] * ECG 12 lead (12/30/2024 12:32 AM CDT) 12/30/2024 12:3 2 AM CDT Narrative [facility] - 12/30/2024 7:25 AM CDT Vent Rate: 104 bpm RR Interval: 575 msec MN Interval: 159 msec QRS Duration: 109 msec QT Interval: 330 msec QTC Interval: 390 msec P-R-T Keiser: 56 - 85 - -50 degrees IMPRESSION: SINUS TACHYCARDIA LEFT VENTRICULAR HYPERTROPHY AND ST-T CHANGE [VOLTAGE CRITERIA PLUS ST/T ABNORMALITY] ST ELEVATION, CONSIDER ANTERIOR INJURY [MARKED ST ELEVATION W/O NORMALLY INFLECTED T-WAVE IN V2-V5] ACUTE MD NO CHANGE FROM PREVIOUS TRACING NOTED Electronically Signed By: Skyler Waite MD Jose Sullivan MD ECG ORDERABLES Final Result Performing Organization Address [facility] Co de Phone Number [facility] [employer] [facility] * Urinalysis reflex to microscopic and culture Urine, bladder (12/30/2024 12:06 AM CDT) Color, ur Yellow Yellow Clarity, ur Clear Clear [facility] Mix ([place]) Specific gravity, ur 1.020 1.003 - 1.030 [facility]A [facility] ([place]) pH, urine 7.5 [facility] ([place]) Comment: Interpretive Data U rine pH is affected by diet, medications, systemic acid-base disturbances, and renal tubular function. pH may affect urinary stone formation. For example, urine pH below 6.0 may help reduce the tendency for calcium phosphate stones and pH greater than 6.0 may reduce the tendency for uric acid stone formation. Source: [facility] Current Interpretive Data was last [...] MICROBIOLOGY - GENERAL OR DERABLES Final Result [facility] ([place]) 1 [facility] Department [place] [address] * (ABNORMAL) Drugs of Abuse Screen, Urine [...] CDT 12/30/2024 12:11 AM CDT Narrative PRISCILLA [facility] ([place]) - 12/30/2024 12:55 AM CDT Drug of Abuse screening is performed by immunoassay for medical purposes only. This is not to be used for Pain Management purposes. us Jose Sullivan MD LAB URINE ORDERABLES Final Re sult PRISCILLA ARREOLA ([place]) 1 [facility] Department [place] [address] * ECG 12 lead (12/29/2024 11:58 PM CDT) 12/29/2024 11:5 8 PM CDT Narrative [facility] - 12/30/2024 7:27 AM CDT Vent Rate: 116 bpm RR Interval: 516 msec MN Interval: 163 msec QRS Duration: 106 msec QT Interval: 321 msec QTC Interval: 390 msec P-R-T Keiser: 64 - 85 - -64 degrees IMPRESSION: SINUS TACHYCARDIA LEFT VENTRICULAR HYPERTROPHY AND ST-T CHANGE [VOLTAGE CRITERIA PLUS ST/T ABNORMALITY] ST ELEVATION, CONSIDER ANTERIOR INJURY [MARKED ST ELEVATION W/O NORMALLY INFLECTED T-WAVE IN V2-V5] ACUTE MD Compared to prior EKG, heart rate has increased Electronically Signed By: Skyler Waite MD us Jose Sullivan MD ECG ORDERABLES Final Result [place] [employer] [facility] * CT Chest PE (CTA) W [...] Richisupa Farr M.D. KT: NANNETTE Report ID: [id number] Reading Location: [id number] Procedure Note Richi Farr MD - 12/30/2024 [...] Richi Farr M.D. KT: NANNETTE Report ID: [id number] Reading Location: [id number] us Jose Sullivan MD IMG CT PROCEDURES [...] Sam M.D. AR: JOHN PAUL Report ID: [id number] Reading Location: [id number] Procedure Note Jaskaran Sam MD - 12/29/2024 [...] Sam M.D. AR: JOHN PAUL Report ID: [id number] Reading Location: [id number] us Jose Sullivan MD IMG XR PROCEDURES [...] ORDERABLES Final Re sult Performing Organization Address City/[facility]/ZIP Co de Phone Number PRISCILLA ARREOLA [place] 1 [facility] Department of Laboratories [place], [place] [id number] * eGFR (12/29/2024 11:09 PM CDT) eGFR [...] BLOOD ORDERABLES Vickie l Result PRISCILLA ARREOLA ([place]) 1 [facility] Department [place] [address] * Differential, auto (12/29/2024 11:09 PM CDT) [...] Neutrophil pct 74.7 % [facility] ([place]) Comment: Interpretive Data Percent cell count reference [...] Vickie l Result PRISCILLA ARREOLA ([place]) 1 [facility] Department [place] [address] * (ABNORMAL) Thyroid Function [place] (12/29/2024 11:09 PM CDT) Pathologist [facility] TSH 0.17(L) 0.30 - 4.20 mcIUnit/mL Blood 12/29/2024 11:0 9 PM CDT 12/30/2024 9:14 AM CDT us Jose Sullivan MD LAB BLOOD ORDERABLES Edited R esult - Final PRISCILLA ARREOLA ([place]) 1 [facility] [email or web address] [address] * CBC with auto differential (12/29/2024 11:09 PM CDT) Pathologist [facility] WBC 7.55 3.80 - 9.90 K/cumm Hgb [...] 0.00 0.00 - 0.01 K/cumm PRISCILLA ARREOLA ([place]) Blood 12/29/2024 11:0 9 PM CDT 12/29/2024 11:15 PM CDT Jose Sullivan MD LAB BLOOD ORDERABLES Final Re sult PRISCILLA ARREOLA ([place]) [address] [place] [address] [email or web address] [address] * T3, free (12/29/2024 11:09 PM CDT) Free T3 3.9 2.0 - 4.4 pg/mL Comment:Testing performed by : [facility], [address] [place] [address]., [id number] Blood 12/29/2024 11:0 9 PM CDT 12/30/2024 9:14 AM CDT Narrative PRISCILLA ARREOLA ([place]) - 12/30/2024 9:57 AM CDT This test was reflexed from a T4 result. us Jose Sullivan MD LAB BLOOD ORDERABLES Final Re sult Performing Organization Address [facility]/ZIP Co de Phone Number PRISCILLA ARREOLA ([place]) [address] [place] [address] [email or web address] [address] * T4, free (12/29/2024 11:09 PM CDT) Free T4 1.07 0.90 - 1.70 ng/dL Blood 12/29/2024 11:0 9 PM CDT 12/30/2024 9:14 AM CDT Narrative PRISCILLA ARREOLA ([place]) - 12/30/2024 9:57 AM CDT This test was reflexed from a TSH result. us Jose Sullivan MD LAB BLOOD ORDERABLES Edited R esult - Final PRISCILLA ARREOLA ([place]) 1 [facility] [place] [address] * Magnesium (12/29/2024 11:09 PM CDT) Magnesium 1.6 1.4 - 2.5 mg/dL Blood 12/29/2024 11:0 9 PM CDT 12/29/2024 11:15 PM CDT us Jose Sullivan MD LAB BLOOD ORDERABLES Final Re sult Performing Organization Address City/[facility]/ZIP Co de Phone Number PRISCILLA ARREOLA ([place]) 1 [facility] [place] [address] * Comprehensive metabolic panel (12/29/2024 11:09 PM CDT) Sodium 137 135 - 145 mmol/L Potassium, pl 4.2 3.3 - 4.9 mmol/L [facility] ([place]) Chloride 99 97 - 110 mmol/L [facility] ([place]) CO2 24 22 - 32 mmol/L [facility] ([place]) Anion gap 14 2 - 15 mmol/L [facility] ([place]) BUN 8 6 - 25 mg/dL [facility] ([place]) Creatinine 1.04 0.80 - 1.30 mg/dL [facility] ([place]) Glucose 126 70 - 199 mg/dL [facility] ([place]) Comment: Interpretive Data Fasting glucose >/= 126 [...] 2022. Calcium 9.3 8.5 - 10.3 mg/dL [facility] ([place]) Bilirubin, total 0.2 0.1 - [...] LAB BLOOD ORDERABLES Final Re sult [facility] ([place]) 1 [facility] Department [place] [address] * (ABNORMAL) Urinalysis reflex to microscopic and culture Urine (12/20/2024 5:19 PM CDT) Color, ur Yellow Yellow Comment:Testing performed by : [address] [address] Clarity, ur Clear Clear [facility] Comment:Testing performed by : [address] [address] Specific gravity, ur 1.032(H) 1.003 - 1.030 [facility] Comment:Testing performed by : [address] [address] pH, urine 6.5 [facility] Comment: Interpretive Data U rine pH is affected by diet, medications, systemic acid-base disturbances, and renal tubular function. pH may affect urinary stone formation. For example, urine pH below 6.0 may help reduce the tendency for calcium phosphate stones and pH greater than 6.0 may reduce the tendency for uric acid stone formation. Source: [facility] [email or web address] Current Interpretive Data was last revised on 2017 Testing performed by: [address] [address] Protein, ur ql Trace(A) Negative PRISCILLA Comment:Testing performed by : [facility], [address] [place] [address], [place]., [address] Glucose, ur ql Negative Negative PRISCILLA Comment:Testing performed by : [facility], [address] [place] [address], [place]., [address] Ketones, ur Trace(A) Negative PRISCILLA Comment:Testing performed by : [address], [place]., [address] Bilirubin, ur Negative Negative PRISCILLA Comment:Testing performed by : [address], [place]., [address] Blood, ur 1+(A) Negative PRISCILLA Comment:Testing performed by : [address], [place]., [address] Urobilinogen, ur 2.0(A) <2.0 mg/dL PRISCILLA Comment:Testing performed by : [address], [place]., [address] Nitrite, ur Negative Negative PRISCILLA Comment:Testing performed by : [address], [place]., [address] Leukocyte esterase, ur Negative Negative PRISCILLA Comment:Testing performed by : [address], [place]., [address] UA reflex comment Reflex to microscopic UA will be performed. PRISCILLA Comment:Testing performed by : [address], [place]., [address] Urine 12/20/2024 5:19 PM CDT 12/20/2024 5:25 PM CDT us Renetta Echols MD LAB MICROBIOLOGY - GENER AL ORDERABLES Final Result [facility] Department [place] [address] * (ABNORMAL) Drugs of Abuse Screen, Urine without Confirmation (12/20/2024 5:19 PM CDT) Pathologist [facility] Amphetamine, ur Not Detected CutOff 500ng/mL Comment: Interpretive Data - Amphetamines: Samples containing greater than 500 ng/mL d-methamphetamine or other cross-reacting amphetamine compounds are reported as positive. Amphetamine immunoassays are subject to significant false positive rates due to cross-reactivity of non-amphetamine drugs. Confirmatory testing required for definitive results. Current Interpretive Data was last reviewed 2023. Testing performed by: [facility], [address] [place] [address]., [address] Barbiturates, ur Not Detected CutOff 200ng/mL C[facility] Comment: Interpretive Data - Barbiturates: Samples containing greater than 200 ng/mL secobarbital or other cross-reacting barbiturate compounds are reported as positive. False positive and false negative results are possible. Confirmatory testing required for definitive results. Current Interpretive Data was last reviewed 2023. Testing performed by: [address] [address] Benzodiazepines, ur Not Detected CutOff 100ng/mL [facility] Comment: Interpretive Data - Benzodiazepines: Samples containing greater than 100 ng/mL nordiazepam or other cross-reacting compounds are reported as positive. False positive and false negative results are possible. Confirmatory testing required for definitive results. Current Interpretive Data was last reviewed 2023. Testing performed by: [address] [address] Cannabinoids, ur Screen Positive, presumptive (A) CutOff 50 ng/mL [facility] Comment: Interpretive Data - Cannabinoids: Samples containing greater than 50 ng/mL delta-9 THC -COOH or other cross- reacting compounds are reported as positive. False positive and false negative results are possible. Confirmatory testing required for definitive results. Current Interpretive Data was last reviewed 2023. Testing performed by: [address] [address] Cocaine, ur Not Detected CutOff 150ng/mL [facility] Comment: Interpretive Data - Cocaine: Samples containing greater than 150 ng/mL benzoylecgonine or other cross- reacting compounds are reported as positive. False positive and false negative results are possible. Confirmatory testing required for definitive results. Current Interpretive Data was last reviewed 2023. Testing performed by: [address] [address] Fentanyl, Ur Not Detected Cutoff 1 ng/mL [facility] Comment: Interpretive Data - Fentanyl: Samples containing greater than 1 ng/mL fentanyl or other cross-reacting fentanyl compounds are reported as positive. False positive and false negative results are possible. Confirmatory testing required for definitive results. Current Interpretive Data was last reviewed 2023. Testing performed by: [facility], [address] [place] [address]., [address] Methadone, ur Not Detected CutOff 300ng/mL PRISCILLA Comment: Interpretive Data - Methadone: Samples containing greater than 300 ng/mL d,l-methadone or other cross-reacting compounds are reported as positive. False positive and false negative results are possible. Confirmatory testing required for definitive results. Current Interpretive Data was last reviewed 2023. Testing performed by: [address] [address] Opiates, ur Not Detected CutOff 300ng/mL PRISCILLA Comment: Interpretive Data - Opiates: Samples containing greater than 300 ng/mL morphine or other cross-reacting compounds are reported as positive. False positive and false negative results are possible. Confirmatory testing required for definitive results. Current Interpretive Data was last reviewed 2023. Testing performed by: [address] [address] Oxycodone, ur Not Detected CutOff 100ng/mL PRISCILLA Comment: Interpretive Data - Oxycodone: Samples containing greater than 100 ng/mL oxycodone or other cross-reacting compounds are reported as positive. False positive and false negative results are possible. Confirmatory testing required for definitive results. Current Interpretive Data was last reviewed 2023. Testing performed by: [address] [address] Phencyclidine, ur Not Detected CutOff 25 ng/mL PRISCILLA Comment: Interpretive Data - Phencyclidine: Samples containing greater than 25 ng/mL phencyclidine or other cross-reacting compounds are reported as positive. False positive and false negative results are possible. Confirmatory testing required for definitive results. Current Interpretive Data was last reviewed 2023. Testing performed by: [address] [address] Urine Creatinine 390 mg/dL PRISCILLA Comment: Interpretive Data Urine Creatinine: < 10 mg/dL is extremely dilute = or > 10 but < 20 mg/dL is dilute = or > 20 mg/dL is normal Current Interpretive Data was last revised on 2017. Testing performed by: [address] [address] Urine 12/20/2024 5:19 PM CDT 12/20/2024 5:25 PM CDT Narrative PRISCILLA - 12/20/2024 5:57 PM CDT Drug of Abuse screening is performed by immunoassay for medical purposes only. This is not to be used for Pain Management purposes. us Renetta Echols MD LAB URINE ORDERABLES Fin al Result PRISCILLA [address] [facility] Department [place] [address] * (ABNORMAL) Urinalysis, microscopic only (12/20/2024 5:19 PM CDT) WBC, ur 0-5 0 - 5 /HPF Comment:Testing performed by : [address] [address] RBC, ur 11-20(A) 0 - 2 /HPF PRISCILLA Comment:Testing performed by : [address] [address] Epithelial cells, squamous, ur 6-10(A) 0 - 5 /HPF PRISCILLA Comment:Testing performed by : [address] [address] Mucous, ur Present(A) PRISCILLA Comment:Testing performed by : [address] [address] Sperm, ur Present(A) PRISCILLA Comment:Testing performed by : [address] [address] Culture Reflex Comment Reflex conditions for urine culture (WBC >10) not met. PRISCILLA Comment:Testing performed by : [address] [address] Urine 12/20/2024 5:19 PM CDT 12/20/2024 5:25 PM CDT Renetta Echols MD LAB URINE ORDERABLES Fin al Result Performing Organization Address City/[facility]/ZIP Co de Phone Number PRISCILLA MAURER [address] [facility] Department [place] [address] * COVID-19 Coronavirus RNA Nasopharyngeal (12/20/2024 5:06 PM CDT) COVID-19 RNA Negative Negative Comment:Testing performed by : [facility], [address] [place] [address]., [id number] Nasopharyngeal 12/20/2024 5: 06 PM CDT 12/20/2024 5:22 PM CDT Narrative PRISCILLA - 12/20/2024 5:55 PM CDT Is the patient experiencing any symptoms consistent with COVID (eg. Fever, cough, shortness of breath)?->No What is the reason for testing?->Screening prior to Behavioral health admission Interpretive data Testing performed by [facility]. This test is performed using the [employer] Xpert Xpress CoV-2 plus assay. This is a real-time RT-PCR test intended for the qualitative detection of nucleic acid from the SARS-CoV-2. This assay has been cleared by the [place] Food and Drug administration. The performance characteristics have been verified by the [facility]. Results must be considered in the clinical context, and a negative result does not rule out infection. Interpretive data last revised 2024. Interpretive data Testing performed by [facility]. This test is performed using the [employer] Xpert Xpress CoV-2 plus assay. This is a real-time RT-PCR test intended for the qualitative detection of nucleic acid from the SARS-CoV-2. This assay has been cleared by the [place] Food and Drug administration. The performance characteristics have been verified by the [facility]. Results must be considered in the clinical context, and a negative result does not rule out infection. Interpretive data last revised 2024. Renetta Echols MD LAB MICROBIOLOGY - GENER AL ORDERABLES Final Result Performing Organization Address City/[facility]/RUST de Phone Number PRISCILLA [facility] [place] [address] * eGFR (12/20/2024 5:06 PM CDT) Pathologist [...] was last reviewed 2021. Testing performed by: [address] [address] Blood 12/20/2024 5:06 PM CDT 12/20/2024 5:25 PM CDT us Renetta Echols MD LAB BLOOD ORDERABLES Fin al Result Performing Organization Address [facility] Co de Phone Number [facility] [address] [facility] [place] [address] * Differential, auto (12/20/2024 5:06 PM CDT) Pathologist [facility] Neutrophil abs 3.48 1.50 - 6.50 K/cumm Comment:Testing performed by : [address] [address] Imm gran abs 0.02 0.00 - 0.10 K/cumm PRISCILLA Comment:Testing performed by : [address] [place] [address] Lymphocyte abs 1.90 0.80 - 3.30 K/cumm [facility] Comment:Testing performed by : [address] [address] Monocyte abs 0.60 0.20 - 0.80 K/cumm [facility] Comment:Testing performed by : [address], [place]., [address] Eosinophil abs 0.17 0.00 - 0.50 K/cumm [facility] Comment:Testing performed by : [address], [place]., [address] Basophil abs 0.03 0.00 - 0.10 K/cumm [facility] Comment:Testing performed by : [address] [address] Neutrophil pct 56.2 % [facility] Comment: Interpretive Data Percent cell count reference ranges are not reported, since discordance with absolute values may lead to misinterpretation of CBC data. Current Interpretive Data was last revised on 2017. Testing performed by: [address] [address] Imm gran pct 0.3 % [facility] Comment: Interpretive Data Percent cell count reference ranges are not reported, since discordance with absolute values may lead to misinterpretation of CBC data. Current Interpretive Data was last revised on 2017. Testing performed by: [address] [address] Lymphocyte pct 30.6 % [facility] Comment: Interpretive Data Percent cell count reference ranges are not reported, since discordance with absolute values may lead to misinterpretation of CBC data. Current Interpretive Data was last revised on 2017. Testing performed by: [address] [address] Monocyte pct 9.7 % CERNER Comment: Interpretive Data Percent cell count reference ranges are not reported, since discordance with absolute values may lead to misinterpretation of CBC data. Current Interpretive Data was last revised on 2017. Testing performed by: [address] [address] Eosinophil pct 2.7 % CERNER Comment: Interpretive Data Percent cell count reference ranges are not reported, since discordance with absolute values may lead to misinterpretation of CBC data. Current Interpretive Data was last revised on 2017. Testing performed by: [address] [address] Basophil pct 0.5 % PRISCILLA MAURER Comment: Interpretive Data Percent cell count reference ranges are not reported, since discordance with absolute values may lead to misinterpretation of CBC data. Current Interpretive Data was last revised on 2017. Testing performed by: [address] [address] Blood 12/20/2024 5:06 PM CDT 12/20/2024 5:25 PM CDT Renetta Echols MD LAB BLOOD ORDERABLES Fin al Result Performing Organization Address [facility] Co de Phone Number [place] [id number] [facility] [email or web address] [address] * Thyroid Function [place] (12/20/2024 5:06 PM CDT) Pathologist [facility] TSH 0.32 0.30 - 4.20 mcIUnit/mL Comment:Testing performed by : [address] [address] Blood 12/20/2024 5:06 PM CDT 12/20/2024 5:25 PM CDT Renetta Echols MD LAB BLOOD ORDERABLES Fin al Result Performing Organization Address City/[facility]/ZIP Co de Phone Number [place] [id number] [place] [address] * CBC with auto differential (12/20/2024 5:06 PM CDT) Pathologist [facility] WBC 6.20 3.80 - 9.90 K/cumm Comment:Testing performed by : [address] [address] Hgb 13.0 13.0 - 17.5 g/dL PRISCILLA MAURER Comment:Testing performed by : [address], [address] Hct 39.6 38.9 - 50.3 % PRISCILLA Comment:Testing performed by : [address] [address] Plt 245 150 - 400 K/cumm PRISCILLA Comment:Testing performed by : [address], [address] MPV 9.7 9.1 - 12.3 fL PRISCILLA Comment:Testing performed by : [address], [address] RBC 4.61 4.30 - 5.80 M/cumm PRISCILLA Comment:Testing performed by : [address], [address] MCV 85.9 81.3 - 96.4 fL PRISCILLA Comment:Testing performed by : [address], [address] MCH 28.2 27.1 - 33.3 pg PRISCILLA Comment:Testing performed by : [address], [address] MCHC 32.8 32.3 - 35.7 g/dL PRISCILLA Comment:Testing performed by : [address], [address] RDW CV 14.0 11.1 - 14.9 % PRISCILLA Comment:Testing performed by : [address], [address] RDW SD 43.7 35.7 - 48.1 fL PRISCILLA Comment:Testing performed by : [address], [address] NRBC abs 0.00 0.00 - 0.01 K/cumm PRISCILLA Comment:Testing performed by : [address], [address] Blood Venous blood specimen / Unknown 12/20/2024 5:06 PM CDT 12/20/2024 5:25 PM CDT us Renetta Echols MD LAB BLOOD ORDERABLES Fin al Result Performing Organization Address [facility] Co de Phone Number PRISCILLA [address] [email or web address] [address] * Ethanol (12/20/2024 5:06 PM CDT) Ethanol <10 <=10 mg/dL Comment: Interpretive Data Legal limit of intoxication > or = 80 mg/dL Levels > or = 400 mg/dL are potentially TOXIC. Current interpretive data was last revised on 2018. Testing performed by: [address] [address] Blood 12/20/2024 5:06 PM CDT 12/20/2024 5:25 PM CDT Renetta Echols MD LAB BLOOD ORDERABLES Fin al Result Performing Organization Address [facility] de Phone Number [address] [address] * Acetaminophen level (12/20/2024 5:06 PM CDT) [...] after ingestion Consult toxicology or poison control ([phone]) for unknown ingestion time. Current interpretive data was last revised 2023. Testing performed by: [address] [address] Blood 12/20/2024 5:06 PM CDT 12/20/2024 5:25 PM CDT Renetta Echols MD LAB BLOOD ORDERABLES Fin al Result Performing Organization Address [facility] Co de Phone Number [place] [address] [facility] [email or web address] [address] * Salicylate level (12/20/2024 5:06 PM CDT) Salicylate <1.0 <=1.0 mg/dL Comment: Interpretive Data Toxic: 30 mg/dL or greater. Current interpretive data was last revised 2023. Testing performed by: [address] [address] Blood 12/20/2024 5:06 PM CDT 12/20/2024 5:25 PM CDT us Renetta Echols MD LAB BLOOD ORDERABLES Fin al Result [facility] Department [place] [address] * Comprehensive metabolic panel (12/20/2024 5:06 PM CDT) Pathologist [facility] Sodium 142 135 - 145 mmol/L Comment:Testing performed by : [address] [address] Potassium, pl 4.1 3.3 - 4.9 mmol/L PRISCILLA Comment:Testing performed by : [address] [address] Chloride 106 97 - 110 mmol/L PRISCILLA Comment:Testing performed by : [address] [address] CO2 24 22 - 32 mmol/L PRISCILLA Comment:Testing performed by : [address] [address] Anion gap 12 2 - 15 mmol/L PRISCILLA Comment:Testing performed by : [address] [address] BUN 9 6 - 25 mg/dL PRISCILLA Comment:Testing performed by : [address] [address] Creatinine 1.10 0.80 - 1.30 mg/dL PRISCILLA Comment:Testing performed by : [address] [address] Glucose 116 70 - 199 mg/dL PRISCILLA [...] was last revised 2022. Testing performed by: [address] [address] Calcium 9.0 8.5 - 10.3 mg/dL PRISCILLA Comment:Testing performed by : [address] [address] Bilirubin, total 0.2 0.1 - 1.2 mg/dL PRISCILLA Comment:Testing performed by : [address] [address] Protein, pl 7.1 6.5 - 8.5 g/dL PRISCILLA Comment:Testing performed by : [address] [address] Albumin 4.1 3.5 - 5.0 g/dL PRISCILLA Comment:Testing performed by : [address] [address] Alk phos 64 40 - 130 Units/L PRISCILLA Comment:Testing performed by : [address] [address] ALT 15 7 - 55 Units/L PRISCILLA Comment:Testing performed by : [address] [address] AST 20 10 - 50 Units/L PRISCILLA Comment:Testing performed by : [address] [address] Blood 12/20/2024 5:06 PM CDT 12/20/2024 5:25 PM CDT us Renetta Echols MD LAB BLOOD ORDERABLES Fin al Result CERNER [facility] [address] [facility] Department [place] [address] from Last 3 Months Insurance Member Subscriber Plan / Payer (Ef fective 2023-Present) Name:Kimberley Escobar Jr. Relation to Subscriber:Self Name:Kimberley Escobar Jr. Payer ID:[id number] (NAIC) Group ID:Not on file Type:MEDICAID [id number] Address: [place] [id number] Advance Directives For more information, please contact: [phone] * Full Code (Latest Code Status on [...] 2:38 PM 10/01/2024 4:02 PM Care Teams German Tutor Relationship Specialty Start Date End Date No, Physician PCP - General 11/30/20
--- OUTSIDE RECORDS SUMMARY | 2025-02-09 23:11 | XMS_ITS | Encounter Summary ---
Author Organization [facility] Healthcare Address [address] [place] [address] Care Team Providers Care Greenhouse Worker Name Role Phone No, Physician Primary Care Provider [phone] Reason for Visit * Reason Comments Hand Pain Encounter Details Date Type Department Care Team ([facility] st Contact Info) Description 02/08/2025 1:07 AM CDT - 02/08/2025 1:27 AM CDT Emergency [facility] Emergency Department [address] [place] [address] Fela Posadas MD [address] [facility] [address] [place] [address] Right hand pain (Primary Dx) Discharge Disposition: Discharge to home or self care Social History Tobacco Use Types Packs/Day Years Used Date Smoking Tobacco: Some Days Cigarettes Alcohol Use Standard Drinks/Week Comments Defer 0 (1 standard drink = 0.6 oz pur e alcohol) [facility] Utilities Answer Date Recorded In the past 12 months has e [employer] gas, oil, or water [employer] threatened to shut off services in your [...] often do you attend chur ch or alevism services? Never 01/30/2025 Do you belong to [...] staff should administer the PHQ-9) 2 09/07/2023 [facility] [place] [facility]at [facility] - Occupational Stress [...] place to sleep or slept in a jail (including now)? Yes 10/02/2023 Housing Stability Vital Sign Answer Pavel e Recorded In the last 12 months, was t here a time when you were not able to pay the mortgage or rent on time? No 01/30/2025 In the past 12 months, how m any times have you moved where you were living? 1 01/30/2025 At any time in the past 12 m [facility], were you homeless or living in a jail (including now)? 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 * MEJIA Wrap (Czech) documented in this encounter Medications at Time [...] transportation assistance. [facility] dischargeaddress ([address] , [place], [place]). Patient currently has active [place]. CARRIE contacted [facility] [phone] and spoke with Cely. Patient provided the following phone number forupdates regarding Uber/Lyft: [phone] No further needs. Roberta Manuel LCSW Hat Block Bench Hand 02/08/2025 documented in this encounter Plan of [...] 02/07/2025 documented in this encounter Care Teams Greenhouse Worker Relationship Specialty Start Date End Date No, Physician PCP - General 11/30/20 documented as of this encounter
--- OUTSIDE RECORDS SUMMARY | 2025-02-09 23:11 | XMS_ITS | Clinical Summary ---
Author Organization [facility] Address [address] [place] [address] Care Team Providers Care Dermatologist Name Role Phone No, Physician Primary Care Provider [phone] Allergies No known active allergies Medications colchicine [...] remember the name. Recent discharge 01/06 from [facility] with no medications listed. [...] 09/30/2024 Assessment & Plan (09/30/2024 9:09 AM REBEAMER): Will try to obtain iron studies I asked SW to help w/ PCP followup Epigastric pain 09/30/2024 Assessment & Plan (09/30/2024 9:17 AM REBEAMER): When asked where his pericarditis pain is, he points to the epigastrium. When I saw him in 11/2023, I had requested an H pylori stool antigen, which we were not able to obtain. -Try again to obtain H pylori antigen (especially w/ history of anemia) Depression 09/29/2024 Assessment & Plan (09/29/2024 1:17 PM REBEAMER): As per psychiatry Will addon a TSH Pericarditis 09/29/2024 Assessment & Plan (09/30/2024 9:10 AM REBEAMER): Currently asymptomatic. Will obtain EKG. Will restart colchicine if symptoms recurs EKG w/ diffuse ST elevation in II, III, aVF, and V1-6, with no [place] depression This might also be early repolarization See my notes from 11/16/23 and 11/17/23 for my thought process then He has a surgical services assistant (Dr Rivera, in [place]) with whom he can follow up Routine general medical exam ination at a health care facility 09/29/2024 Assessment & Plan (09/29/2024 1:17 PM REBEAMER): HIV, RPR negative Will recheck here Addon B12, TSH GERD (gastroesophageal reflux disease) Assessment & Plan (09/29/2024 1:18 PM REBEAMER): Hold off PPI for now as he notes no symptoms of acid reflux. Low threshold to restart. The chest pain (when present) he notes is epigastric so that may be a component of GERD Renal lesion 09/29/2024 Assessment & Plan (09/30/2024 9:09 AM REBEAMER): 11/02/23 CT: There are 3 low-attenuation lesions [...] 11/16/2023 Assessment & Plan (09/30/2024 9:11 AM REBEAMER): B12 300, same as 11/2023. Will replete [...] 11/16/2023 Assessment & Plan (09/30/2024 9:11 AM REBEAMER): Late latent, appropriately treated. See my 11/15/24 note Assessment & Plan (11/16/2023 1:25 PM CDT): As per my colleague Dr Bynum (see 09/07/23 medicine c/s note): - Has history of Syphilis, treated in 2013 , -Treponema ab + and RPR 1:4 on 08/29/23 when tested at [facility] ED Contacted [facility] ( [place] ) for info To see if titers are coming down , left message with Nurse ( [phone]): Called back received, Patient diagnosed with late latent syphilis at [facility] in [place] on 10-11 : +RPR titer 1 :256, treponema -EIA positive Completed treatment with benzathine penicillin G x 3 doses given on November 21 2013, November 28 2013 and December 052013 So appropriately treated Lumbar strain, initial encounter 09/16/2023 Anemia 09/08/2023 Assessment & Plan (09/08/2023 8:05 PM REBEAMER): -possible hx of GI bleed in June, [...] disease) Assessment & Plan (09/08/2023 5:10 AM REBEAMER): -continue pepcid Adjustment disorders, with mixed anxiety and dep ressed mood 09/07/2023 Assessment & Plan (09/08/2023 4:53 AM REBEAMER): Per Psychiatry Cannabis use disorder, moderate, dependence 01/2024 Assessment & Plan (09/08/2023 4:53 AM REBEAMER): Per Psychiatry History of syphilis 09/07/2023 Assessment & Plan (09/08/2023 12:28 PM REBEAMER): - Has history of Syphilis, treated in 2013 , -Treponema ab + and RPR 1:4 on 08/29/23 [facility] Contacted [facility] ( [place] ) for info To see if titers are coming down , left message with Nurse ( [phone]): Called back received, Patient diagnosed with late latent syphilis at [facility] in [place] on 10-11 : +RPR titer 1 :256, [...] recs Assessment & Plan (07/27/2023 10:01 AM REBEAMER): Wes has been struggling for the last 4 years with unstable realtionships, unstable housing, difficulty finding and maintaining employment, and in and out of care home/fdc/probation. He says that he is sad about [...] recs apprec; h/o pericarditis Swer to [facility] with follow-up and dispo Assessment & Plan (07/26/2023 9:44 AM REBEAMER): Wes has been struggling for the last 4 years with unstable realtionships, unstable housing, difficulty finding and maintaining employment, and in and out of care home/fdc/probation. He says that he is sad about [...] recs apprec; h/o pericarditis Swer to [facility] with follow-up and dispo Assessment & Plan (07/25/2023 12:24 PM REBEAMER): Wes has been struggling for the last 4 years with unstable realtionships, unstable housing, difficulty finding and maintaining employment, and in and out of care home/fdc/probation. He says that he is sad about [...] recs apprec; h/o pericarditis Swer to [facility] with follow-up and dispo Assessment [...] was started on Abilify and Depakote in [employer], and reports that his visual and auditory hallucinations have resolved. - Start Sertraline 50mg, consider titrating - Obtain further information about the hallucinations - Haldol 5 p.o. or Haldol 5/Ativan 2 IM PRN for agitation - Suicide/elopement/safety precautions - Therapeutic milieu - q15 min safety checks Asthma 05/22/2023 Assessment & Plan (09/29/2024 1:14 PM REBEAMER): Mild. Prn albuterol Assessment & Plan (09/08/2023 5:12 AM REBEAMER): - no PFTs available , currently not in exacerbation, - PRN albuteral Assessment & Plan (07/25/2023 10:37 AM REBEAMER): Intermittent. No symptoms. Uses albuterol prn at [...] (11/04/2024): Added automatically from request for surgery [id number] Resolved Problems Problem Noted Date Diagnosed Date Resolved Date history of Pericarditis 09/07/202310/31 Assessment & Plan (09/08/2023 8:04 PM REBEAMER): - patient has not been able to afford colchicine and reports benefit when getting doses in ED visits - continue colchicine 0.6 mg po BID and monitor for side effects, it should be held if nausea, vomiting, diarrhea -Hold NSAIDS as -he as not tolerated with significant Gi side effects -Patient was seen by Cardiology as outpatient on 09/02/2023 at [facility] ([facility]) and [...] psychiatry Assessment & Plan (07/25/2023 10:36 AM REBEAMER): Pt w/ hx of depression and anxiety presents w/ SI after grandmother passing. Didn't have intent or plan. Denies SI now -mgt per primary Encounters Date Type Department Care Team Description 02/08/2025 1:07 AM CDT - 02/08/2025 1:[address] [facility] Emergency Department [address] [place] [address] Fela Posadas MD Right hand pain (Primary Dx) Discharge Disposition: Discharge to home or self care 02/06/2025 2:43 AM CDT - 02/06/2025 5:28 AM CDT Emergency [facility] Emergency Department [address] [place] [address] Larissa Medellin MD Abdominal pain (Primary Dx) Discharge Disposition: Discharge to home or self care 02/04/2025 2:18 AM CDT - 02/04/2025 4:[address] [facility] Emergency Department [address] [place] [phone] Richi Aguilar MD Abdominal pain (Primary Dx) Discharge Disposition: Discharge to home or self care 02/02/2025 3:08 AM CDT - 02/02/2025 5:[address] [facility] Emergency Department [address] [place] [phone] Abdominal pain (Primary Dx) Discharge Disposition: Discharge to home or self care 01/30/2025 12:42 AM CDT - 01/30/2025 2:03 PM CDT Hospital Encounter [address] [address] Renetta Echols MD Ogbuagu, MD Elvira Gao Sohaib, MD Smith, Yordan Akbar MD Epigastric pain (Primary Dx); Microscopic hematuria Discharge Disposition: Discharge to home or self care 01/28/2025 12:13 AM CDT - 01/29/2025 11:52 AM CDT Hospital [address] [phone] Rupert Kaplan MD Zhao, Diana Yi, MD PhD Arsenio, Larry nAgulo MD Recurrent idiopathic pericarditis (Primary Dx); Chest pain, unspecified type Discharge Disposition: Discharge to home or self care 01/18/2025 1:07 AM CDT - 01/18/2025 4:16 AM CDT Emergency [facility] Emergency Department [address] [place] [phone] Luana Beckett MD Abdominal pain (Primary Dx) Discharge Disposition: Discharge to home or self care 01/13/2025 10:24 AM CDT - 01/13/2025 2:45 PM CDT Emergency [facility] [address] [place] [address] Chest pain, unspecified type (Primary Dx) Discharge Disposition: Discharge to home or self care 01/06/2025 2:01 PM CDT - 01/09/2025 3:55 PM CDT Hospital Encounter [facility] [address] [place] [phone] Filipe Claros MD L'Ecuyer, Suzanne, MD de Leon, Victoria Carmen, MD Unspecified depressive disorder [F32.A] (Primary Dx); Chronic pericarditis [I31.9]; Cannabis use disorder, moderate, dependence (HCC) [F12.20] Discharge Disposition: Discharge to home or self care 01/06/2025 12:57 PM CDT - 01/06/2025 11:59 PM CDT Hospital Encounter [facility] Emergency, Room R Discharge Disposition: Discharge to home or self care 01/06/2025 12:47 AM CDT - 01/06/2025 12:58 PM CDT Emergency [facility] Emergency Department [address] [place] [address] Jose Sullivan MD Zozula, Jaskaran Macdonald MD Suicidal ideation (Primary Dx) Discharge Disposition: Discharge to psych hospital or psych unit 01/04/2025 [facility] Post Discharge Follow up phone call [facility] [address] [place] [address] Anastasiia Montano 01/01/2025 10:08 PM CDT - 01/02/2025 2:[address] [facility] Emergency Department [address] [place] [address] Irina Yeager MD Suicidal ideation (Primary Dx) Discharge Disposition: Discharge to home or self care 12/29/2024 10:58 PM CDT - 12/30/2024 4:10 PM CDT Hospital Encounter [facility] IMU [address] [place] [address] Jose Sullivan MD Fasick, Victoria Rose, DO Richards, Navarro Handy Jr., MD Chest pain, unspecified type (Primary Dx); Other chest pain; Chronic pericarditis; Acute idiopathic pericarditis Discharge Disposition: Discharge to home or self care 12/20/2024 5:19 PM CDT - 12/21/2024 12:03 PM CDT [facility] Emergency Department [address] [place] [phone] Renetta Echols MD Suicidal ideation (Primary Dx) [...] drink = 0.6 oz pur e alcohol) [facility] Paxeraities Answer Date Recorded In the past 12 months has e 4meee, gas, oil, or water [employer] threatened to shut off services in your [...] often do you attend chur ch or congregational services? Never 01/30/2025 Do you belong to any clubs o r organizations such as adventism groups, unions, fraternal or athletic groups, or [...] staff should administer the PHQ-9) 2 09/07/2023 [facility]at [facility] - Occupational Stress Questionnaire Answer Date [...] place to sleep or slept in a penitentiary (including now)? Yes 10/02/2023 Housing Stability Vital Sign Answer Pavel e Recorded In the last 12 months, was t here a time when you were not able to pay the mortgage or rent on time? No 01/30/2025 In the past 12 months, how m any times have you moved where you were living? 1 01/30/2025 At any time in the past 12 m [facility], were you homeless or living in a penitentiary (including now)? No 01/30/2025 Personal Safety Answer [...] on file Legal Sex Male 5:49 PM REBEAMER Gender Identity Not on file Sexual Orientation [...] by Farida Mahmood M.D. SN: Report ID: [id number] Reading Location: [id number] Procedure Note Farida Mahmood MD - 02/06/2025 [...] Farida Mahmood M.D. SN: SN Report ID: [id number] Reading Location: [id number] Larissa Medellin MD IMG CT PROCEDURES Final R esult * eGFR (02/06/2025 2:55 AM CDT) Pathologist [facility] eGFR >90 >=60 mL/min/1. 73 m2 Comment: [...] BLOOD ORDERABLES Vickie l Result [facility]A [facility]RE[facility]A ([facility]LER) 1 [facility] Department [place] [address] * Differential, auto (02/06/2025 2:55 [...] Vickie l Result [facility] ([facility]) 1 [facility] [place] [address] * (ABNORMAL) CBC with auto differential (02/06/2025 [...] Vickie l Result [facility] ([facility]) 1 [facility] [place] [address] * Lipase (02/06/2025 2:55 AM CDT) Lipase 21 10 - 99 Units/L Blood 02/06/2025 2:55 AM CDT 02/06/2025 3:26 AM CDT us Larissa Medellin MD LAB BLOOD ORDERABLES Vickie arreola Result [facility] ([facility]) 1 [facility] Department [place] [address] * Comprehensive metabolic panel (02/06/2025 2:55 AM [...] BLOOD ORDERABLES Vickie l Result [facility]A [facility]OLA ([place]) 1 [facility] Department [place] [address] * (ABNORMAL) Urinalysis reflex to microscopic and culture Urine (02/02/2025 4:11 AM CDT) Color, ur Yellow Yellow Clarity, ur Clear Clear [facility] Specific gravity, ur 1.032(H) 1.003 - 1.030 [facility] pH, urine 6.0 [facility] Comment: Interpretive Data U rine pH is affected by diet, medications, systemic acid-base disturbances, and renal tubular function. pH may affect urinary stone formation. For example, urine pH below 6.0 may help reduce the tendency for calcium phosphate stones and pH greater than 6.0 may reduce the tendency for uric acid stone formation. Source: [facility] Current Interpretive Data was last revised on 2017 Protein, ur ql Trace Negative [facility] Glucose, ur ql Negative Negative [facility] Ketones, ur Negative Negative [facility] Bilirubin, ur Negative Negative [facility] Blood, ur Trace(A) Negative [facility] Urobilinogen, ur <2.0 <2.0 mg/dL [facility] Nitrite, ur Negative Negative [facility] Leukocyte esterase, ur Negative Negative [facility] UA reflex comment Reflex to microscopic UA will be performed. [facility] Urine 02/02/2025 4:11 AM CDT 02/02/2025 4:18 AM CDT Payal [facility] LAB MICROBIOLOGY - GENER AL ORDERABLES Final Result [facility] Department [place] [address] * (ABNORMAL) Urinalysis, microscopic only (02/02/2025 4:11 AM CDT) WBC, ur 0-5 0 - 5 /HPF RBC, ur 3-5(A) 0 - 2 /HPF [facility] Mucous, ur Present(A) [facility] Hyaline casts, ur 1-5 0 - 10 /LPF [facility] Culture Reflex Comment Reflex conditions for urine culture (WBC >10) not met. [facility] Urine 02/02/2025 4:11 AM CDT 02/02/2025 4:18 AM CDT Payal [facility] LAB URINE ORDERABLES Fin al Result Performing Organization Address City/[facility]/ZIP Co de Phone Number [facility] Department [place] [address] * eGFR (02/02/2025 3:50 AM CDT) eGFR [...] LAB BLOOD ORDERABLES Fin al Result [facility] [place] [address] * Differential, auto (02/02/2025 3:50 AM CDT) Neutrophil abs 2.81 1.50 - 6.50 K/cumm Imm gran abs 0.01 0.00 - 0.10 K/cumm [facility] Lymphocyte abs 2.08 0.80 - 3.30 K/cumm [facility] Monocyte abs 0.71 0.20 - 0.80 K/cumm [facility] Eosinophil abs 0.16 0.00 - 0.50 K/cumm [facility] Basophil abs 0.03 0.00 - 0.10 K/cumm [facility] Neutrophil pct 48.4 % [facility] Comment: Interpretive Data Percent cell count reference ranges are not reported, since discordance with absolute values may lead to misinterpretation of CBC data. Current Interpretive Data was last revised on 2017. Imm gran pct 0.2 % [facility] Comment: Interpretive Data Percent cell count reference ranges are not reported, since discordance with absolute values may lead to misinterpretation of CBC data. Current Interpretive Data was last revised on 2017. Lymphocyte pct 35.9 % [facility] Comment: Interpretive Data Percent cell count reference ranges are not reported, since discordance with absolute values may lead to misinterpretation of CBC data. Current Interpretive Data was last revised on 2017. Monocyte pct 12.2 % [facility] Comment: Interpretive Data Percent cell count reference ranges are not reported, since discordance with absolute values may lead to misinterpretation of CBC data. Current Interpretive Data was last revised on 2017. Eosinophil pct 2.8 % [facility] Comment: Interpretive Data Percent cell count reference ranges are not reported, since discordance with absolute values may lead to misinterpretation of CBC data. Current Interpretive Data was last revised on 2017. Basophil pct 0.5 % [facility] Comment: Interpretive Data Percent cell count reference ranges are not reported, since discordance with absolute values may lead to misinterpretation of CBC data. Current Interpretive Data was last revised on 2017. Blood 02/02/2025 3:50 AM CDT 02/02/2025 4:09 AM CDT Payal [facility] LAB BLOOD ORDERABLES Fin al Result Performing Organization Address City/[facility]/ZIP Co de Phone Number [facility] [place] [address] * CBC with auto differential (02/02/2025 3:50 AM CDT) WBC 5.80 3.80 - 9.90 K/cumm Hgb 13.2 13.0 - 17.5 g/dL [facility] Hct 40.4 38.9 - 50.3 % [facility] Plt 252 150 - 400 K/cumm [facility] MPV 9.9 9.1 - 12.3 fL [facility] RBC 4.70 4.30 - 5.80 M/cumm [facility] MCV 86.0 81.3 - 96.4 fL [facility] MCH 28.1 27.1 - 33.3 pg [facility] MCHC 32.7 32.3 - 35.7 g/dL [facility] RDW CV 13.7 11.1 - 14.9 % [facility] RDW SD 42.8 35.7 - 48.1 fL [facility] NRBC abs 0.00 0.00 - 0.01 K/cumm [facility] Blood 02/02/2025 3:50 AM CDT 02/02/2025 4:09 AM CDT Payal [facility] LAB BLOOD ORDERABLES Fin al Result Performing Organization Address City/[facility]/ZIP Co de Phone Number [facility] Department [place] [address] * Lipase (02/02/2025 3:50 AM CDT) Lipase 32 10 - 99 Units/L Blood 02/02/2025 3:50 AM CDT 02/02/2025 4:08 AM CDT Payal [facility] LAB BLOOD ORDERABLES Fin al Result [facility] Department [place] [address] * Comprehensive metabolic panel (02/02/2025 3:50 AM CDT) Sodium 140 135 - 145 mmol/L Potassium, pl 4.0 3.3 - 4.9 mmol/L [facility] Chloride 105 97 - 110 mmol/L [facility] CO2 26 22 - 32 mmol/L [facility] Anion gap 9 2 - 15 mmol/L [facility] BUN 14 6 - 25 mg/dL [facility] Creatinine 1.18 0.80 - 1.30 mg/dL [facility] Glucose 106 70 - 199 mg/dL [facility] Comment: Interpretive Data Fasting glucose [...] 2022. Calcium 9.0 8.5 - 10.3 mg/dL [facility] Bilirubin, total <0.2 0.1 - 1.2 mg/dL [facility] Comment:Reviewed Protein, pl 7.2 6.5 - 8.5 g/dL [facility] Albumin 4.2 3.5 - 5.0 g/dL [facility] Alk phos 67 40 - 130 Units/L [facility] ALT 26 7 - 55 Units/L [facility] AST 22 10 - 50 Units/L [facility] Blood 02/02/2025 3:50 AM CDT 02/02/2025 4:08 AM CDT Payal [facility] LAB BLOOD ORDERABLES Fin al Result [facility]LLA B[facility] Department [place] [address] * eGFR (01/30/2025 6:43 AM CDT) eGFR [...] MD LAB BLOOD ORDERABLES Final Result [facility] [address] [facility] Department [place] [address] * (ABNORMAL) Differential, auto (01/30/2025 6:43 AM CDT) Neutrophil abs 5.11 1.50 - 6.50 K/cumm Imm gran abs 0.02 0.00 - 0.10 K/cumm [facility] Lymphocyte abs 1.85 0.80 - 3.30 K/cumm [facility] Monocyte abs 0.96(H) 0.20 - 0.80 K/cumm [facility] Eosinophil abs 0.04 0.00 - 0.50 K/cumm [facility] Basophil abs 0.01 0.00 - 0.10 K/cumm [facility] Neutrophil pct 63.9 % [facility] Comment: Interpretive Data Percent cell count reference ranges are not reported, since discordance with absolute values may lead to misinterpretation of CBC data. Current Interpretive Data was last revised on 2017. Imm gran pct 0.3 % [facility] Comment: Interpretive Data Percent cell count reference ranges are not reported, since discordance with absolute values may lead to misinterpretation of CBC data. Current Interpretive Data was last revised on 2017. Lymphocyte pct 23.2 % [facility] Comment: Interpretive Data Percent cell count reference ranges are not reported, since discordance with absolute values may lead to misinterpretation of CBC data. Current Interpretive Data was last revised on 2017. Monocyte pct 12.0 % [facility] Comment: Interpretive Data Percent cell count reference ranges are not reported, since discordance with absolute values may lead to misinterpretation of CBC data. Current Interpretive Data was last revised on 2017. Eosinophil pct 0.5 % [facility] Comment: Interpretive Data Percent cell count reference ranges are not reported, since discordance with absolute values may lead to misinterpretation of CBC data. Current Interpretive Data was last revised on 2017. Basophil pct 0.1 % [facility] Comment: Interpretive Data Percent cell count reference ranges are not reported, since discordance with absolute values may lead to misinterpretation of CBC data. Current Interpretive Data was last revised on 2017. Blood 01/30/2025 6:43 AM CDT 01/30/2025 7:01 AM CDT Bry Miranda MD LAB BLOOD ORDERABLES Final Result [facility] [address] [facility] Department [place] [address] * (ABNORMAL) CBC with auto differential (01/30/2025 6:43 AM CDT) [facility] WBC 7.99 3.80 - 9.90 K/cumm Hgb 12.7(L) 13.0 - 17.5 g/dL [facility] Hct 38.7(L) 38.9 - 50.3 % [facility] Plt 211 150 - 400 K/cumm [facility] MPV 9.5 9.1 - 12.[address] [facility] RBC 4.57 4.30 - 5.80 M/cumm [facility] MCV 84.7 81.3 - 96.[address] [facility] MCH 27.8 27.1 - 33.[address] [facility] MCHC 32.8 32.3 - 35.7 g/dL [facility] RDW CV 14.0 11.1 - 14.9 % [facility] RDW SD 42.9 35.7 - 48.[address] [facility] NRBC abs 0.00 0.00 - 0.01 K/cumm [facility] Blood 01/30/2025 6:43 AM CDT 01/30/2025 7:01 AM CDT Bry Miranda MD LAB BLOOD ORDERABLES Final Result [facility] [address] [facility] [place] [address] * Comprehensive metabolic panel (01/30/2025 6:43 AM CDT) [facility] Sodium 140 135 - 145 mmol/L Potassium, pl 4.0 3.3 - 4.9 mmol/L [facility] Chloride 105 97 - 110 mmol/L [facility] CO2 23 22 - 32 mmol/L [facility] Anion gap 12 2 - 15 mmol/L [facility] BUN 13 6 - 25 mg/dL [facility] Creatinine 1.10 0.80 - 1.30 mg/dL [facility] Glucose 109 70 - 199 mg/dL [facility] Comment: Interpretive Data Fasting glucose >/= [...] 9.4 8.5 - 10.3 mg/dL [facility] Bilirubin, total 0.5 0.1 - 1.2 mg/dL [facility] Protein, pl 7.0 6.5 - 8.5 g/dL [facility] Albumin 4.1 3.5 - 5.0 g/dL [facility] Alk phos 58 40 - 130 Units/L [facility] ALT 25 7 - 55 Units/L [facility] [facility] AST 21 10 - 50 Units/L [facility] Blood 01/30/2025 6:43 AM CDT 01/30/2025 7:01 AM CDT Bry Miranda MD LAB BLOOD ORDERABLES Final Result Performing Organization Address [facility] Co de Phone Number [address] [place] [address] * Troponin T high-sensitivity (01/30/2025 3:31 AM CDT) Trop T hs 10 <=22 ng/L Comment: Interpretive Data For further hscTnT resources including the diagnostic algorithm and an aid in interpretation, copy and paste this link: https://nrl.testcatalog.org/show/hsTrop Current Interpretive Data last revised 2020. Blood 01/30/2025 3:31 AM CDT 01/30/2025 3:35 AM CDT Renetta Echols MD LAB BLOOD ORDERABLES Fin al Result Performing Organization Address [facility]/ZIP Co de Phone Number [address] [place] [address] * eGFR (01/30/2025 3:31 AM CDT) eGFR [...] BLOOD ORDERABLES Fin al Result [facility] [address] [facility] [place] [address] * Renal function panel (01/30/2025 3:31 AM CDT) Pathologist [facility] Sodium 138 135 - 145 mmol/L Potassium, pl 3.8 3.3 - 4.9 mmol/L [facility] Comment:Hemolyzed; Potassium value may be falsely elevated by as much as 1.0 mmol/L. Suggest redraw and reanalysis. Chloride 103 97 - 110 mmol/L [facility] CO2 24 22 - 32 mmol/L [facility] Anion gap 11 2 - 15 mmol/L [facility] BUN 13 6 - 25 mg/dL [facility] Creatinine 1.00 0.80 - 1.30 mg/dL [facility] Glucose 111 70 - 199 mg/dL [facility] Comment: Interpretive Data Fasting glucose >/= [...] 9.6 8.5 - 10.3 mg/dL [facility] Phosphorus, pl 3.8 2.3 - 4.5 mg/dL [facility] Albumin 4.7 3.5 - 5.0 g/dL [facility] Blood 01/30/2025 3:31 AM CDT 01/30/2025 3:35 AM CDT Renetta Echols MD LAB BLOOD ORDERABLES Fin al Result [facility] [address] [facility] [place] [address] * ECG 12 lead (01/30/2025 2:25 AM CDT) Pathologist [facility] Ventricular Rate EKG/Min [address] [facility] Atrial Rate 76 BPM [facility] KY-Interval (MSEC) 174 ms [facility] QRS-Interval (MSEC) 114 ms [facility] QT-Interval (MSEC) [address] [facility] QTc 425 ms [facility] P [place] 29 degrees [facility] R [place] 74 degrees [facility] T [place] 21 degrees [facility] Diagnosis Normal sinus rhythm Possible Left atrial enlargement Left ventricular hypertrophy ST elevation, consider early repolarization, pericarditis, or injury Marked T wave abnormality consider anterolateral ischemia Confirmed by NICK ULRICH M.D. ([id number]) on 01/30/2025 4:32:43 PM [facility] 01/30/2025 2:25 AM CDT 01/30/2025 4:32 PM CDT Renetta Echols MD ECG ORDERABLES Final Re sult [facility] * eGFR (01/29/2025 10:36 PM CDT) Pathologist [facility] eGFR >90 >=60 mL/min/1. 73 m2 Comment: [...] LAB BLOOD ORDERABLES Fin al Result [facility] [address] [facility] [place] [address] * Differential, auto (01/29/2025 10:36 PM CDT) Pathologist [facility] Neutrophil abs 5.66 1.50 - 6.50 K/cumm Imm gran abs 0.02 0.00 - 0.10 K/cumm [facility] Lymphocyte abs 0.97 0.80 - 3.30 K/cumm [facility] Monocyte abs 0.65 0.20 - 0.80 K/cumm [facility] Eosinophil abs 0.00 0.00 - 0.50 K/cumm [facility] Basophil abs 0.00 0.00 - 0.10 K/cumm [facility] Neutrophil pct 77.5 % [facility] Comment: Interpretive Data Percent cell count reference ranges are not reported, since discordance with absolute values may lead to misinterpretation of CBC data. Current Interpretive Data was last revised on 2017. Imm gran pct 0.3 % [facility] Comment: Interpretive Data Percent cell count reference ranges are not reported, since discordance with absolute values may lead to misinterpretation of CBC data. Current Interpretive Data was last revised on 2017. Lymphocyte pct 13.3 % [facility] Comment: Interpretive Data Percent cell count reference ranges are not reported, since discordance with absolute values may lead to misinterpretation of CBC data. Current Interpretive Data was last revised on 2017. Monocyte pct 8.9 % [facility] Comment: Interpretive Data Percent cell count reference ranges are not reported, since discordance with absolute values may lead to misinterpretation of CBC data. Current Interpretive Data was last revised on 2017. Eosinophil pct 0.0 % [facility] Comment: Interpretive Data Percent cell count reference ranges are not reported, since discordance with absolute values may lead to misinterpretation of CBC data. Current Interpretive Data was last revised on 2017. Basophil pct 0.0 % [facility] Comment: Interpretive Data Percent cell count reference ranges are not reported, since discordance with absolute values may lead to misinterpretation of CBC data. Current Interpretive Data was last revised on 2017. Blood 01/29/2025 10:3 6 PM CDT 01/29/2025 10:38 PM CDT us Renetta Echols MD LAB BLOOD ORDERABLES Fin al Result [facility] [address] [facility] [place] [address] * (ABNORMAL) Urinalysis reflex to microscopic and culture Urine (01/29/2025 10:36 PM CDT) Color, ur Yellow Yellow Clarity, ur Clear Clear [facility] Specific gravity, ur 1.025 1.003 - 1.[address] [facility] pH, urine 5.[address] [facility] Comment: Interpretive Data U rine pH is affected by diet, medications, systemic acid-base disturbances, and renal tubular function. pH may affect urinary stone formation. For example, urine pH below 6.0 may help reduce the tendency for calcium phosphate stones and pH greater than 6.0 may reduce the tendency for uric acid stone formation. Source: [facility] Current Interpretive Data was last revised on 2017 Protein, ur ql Negative Negative [facility] Glucose, ur ql Negative Negative [facility] Ketones, ur Negative Negative [facility] Bilirubin, ur Negative Negative [facility] Blood, ur 2+(A) Negative [facility] Urobilinogen, ur <2.0 <2.0 mg/dL [facility] Nitrite, ur Negative Negative [facility] Leukocyte esterase, ur Negative Negative [facility] UA reflex comment Reflex to microscopic UA will be performed. [facility] Urine 01/29/2025 10:3 6 PM CDT 01/29/2025 10:38 PM CDT Renetta Echols MD LAB MICROBIOLOGY - GENER AL ORDERABLES Final Result [facility] [address] [facility] [place] [address] * CBC with auto differential (01/29/2025 10:36 PM CDT) WBC 7.30 3.80 - 9.90 K/cumm Hgb 13.7 13.0 - 17.5 g/dL [facility] Hct 41.6 38.9 - 50.3 % [facility] Plt 257 150 - 400 K/cumm [facility] MPV 9.7 9.1 - 12.[address] [facility] RBC 4.88 4.30 - 5.80 M/cumm [facility] MCV 85.2 81.3 - 96.[address] [facility] MCH 28.1 27.1 - 33.[address] [facility] MCHC 32.9 32.3 - 35.7 g/dL [facility] RDW CV 13.7 11.1 - 14.9 % [facility] RDW SD 42.6 35.7 - 48.[address] [facility] NRBC abs 0.00 0.00 - 0.01 K/cumm [facility] Blood Venous blood specimen / Unknown 01/29/2025 10:36 PM CDT 01/29/2025 10:38 PM CDT Renetta Echols MD LAB BLOOD ORDERABLES Fin al Result Performing Organization Address [facility] Co de Phone Number [address] [address] * (ABNORMAL) Urinalysis, microscopic only (01/29/2025 10:36 PM CDT) WBC, ur 0-5 0 - 5 /HPF RBC, ur 6-10(A) 0 - 2 /HPF [facility] Mucous, ur Present(A) [facility] Culture Reflex Comment Reflex conditions for urine culture (WBC >10) not met. [facility] Urine 01/29/2025 10:3 6 PM CDT 01/29/2025 10:38 PM CDT Renetta Echols MD LAB URINE ORDERABLES Fin al Result Performing Organization Address [facility] de Phone Number [address] [address] * Lipase (01/29/2025 10:36 PM CDT) Lipase 24 10 - 99 Units/L Blood Venous blood specimen / Unknown 01/29/2025 10:36 PM CDT 01/29/2025 10:38 PM CDT Renetta Echols MD LAB BLOOD ORDERABLES Fin al Result Performing Organization Address [facility] Co de Phone Number [address] [address] * (ABNORMAL) Comprehensive metabolic panel (01/29/2025 10:36 PM CDT) Sodium 137 135 - 145 mmol/L Potassium, pl 4.3 3.3 - 4.9 mmol/L [facility] Chloride 104 97 - 110 mmol/L [facility] CO2 21(L) 22 - 32 mmol/L [facility] Anion gap 12 2 - 15 mmol/L [facility] BUN 13 6 - 25 mg/dL [facility] Creatinine 1.04 0.80 - 1.30 mg/dL [facility] Glucose 121 70 - 199 mg/dL [facility] Comment: Interpretive Data Fasting glucose >/= [...] 9.8 8.5 - 10.3 mg/dL [facility] Bilirubin, total 0.4 0.1 - 1.2 mg/dL [facility] Protein, pl 7.9 6.5 - 8.5 g/dL [facility] Albumin 4.8 3.5 - 5.0 g/dL [facility] Alk phos 68 40 - 130 Units/L [facility] ALT 29 7 - 55 Units/L [facility] AST 25 10 - 50 Units/L [facility] Blood 01/29/2025 10:3 6 PM CDT 01/29/2025 10:38 PM CDT us Renetta Echols MD LAB BLOOD ORDERABLES Fin al Result [facility] [address] [facility] [place] [address] * TRANSTHORACIC ECHO (TTE) COMPLETE W DOPPLER/CF WO CONTRAST (01/29/2025 7:59 AM CDT) EF Mod BP 58 % CONS SCIMAGE Anatomical Region Laterality Modality Ultrasound 01/29/2025 7:04 AM CDT Narrative 01/29/2025 9:10 AM CDT [facility] [place] [address] Transthoracic Echocardiographic Report Patient Name: KIMBERLEY ESCOBAR L : 1990 (34y 10m) Gender: M Study Date: 01/29/2025 07:04:02 AM Ht(Inch): 71 Wt(Lb): 173.94 BSA: 1.99 Medical Physics Professor: Manas Lopez RDCS Location: [id number] Order Provider: ARLETH JOHNSON Heart Rate: 51 [...] Procedure Note Triston Mosher MD - 01/29/2025 [facility] [place] [address] Transthoracic Echocardiographic Report Patient Name: KIMBERLEY ESCOBAR L : 1990 (34y 10m) Gender: M Study Date: 01/29/2025 07:04:02 AM Ht(Inch): 71 Wt(Lb): 173.94 BSA: 1.99 Medical Physics Professor: Manas Lopez RDCS Location: [id number] Order Provider: ARLETH DIXON Heart Rate: 51 [...] LA Length 4C 6.28 cm MV Decel [id number] msec [ 104.00 - 258.00 ] LA [...] 2020. Trop I hs delta 1 ng/L [facility] Trop I hs interp Insignificant [facility] Blood 01/28/2025 2:33 AM CDT 01/28/2025 3:48 AM CDT us Navarro Alston MD PhD LAB BLOOD ORDERABLES F inal Result [facility] [place] [address] * XR Chest PA Lateral 2 Views [...] 4hr, 6hr) (01/28/2025 12:33 AM CDT) Pathologist [facility] Trop I hs 23 <=35 ng/L Comment: Interpretive Data For further hscTnI resources including the diagnostic algorithm and an aid in interpretation, copy and paste this link: https://bjhlab.testcatalog.org/show/hsTrop-1 Current Interpretive Data last revised 2020. Blood 01/28/2025 12:3 3 AM CDT 01/28/2025 12:53 AM CDT us Navarro Alston MD PhD LAB BLOOD ORDERABLES F inal Result [facility] [address] [facility] Department [place] [address] * eGFR (01/28/2025 12:33 AM CDT) Pathologist [facility] eGFR 87 >=60 mL/min/1. 73 m2 Comment: [...] MD LAB BLOOD ORDERABLES Vickie l Result [facility] [address] [facility] [place] [address] * Differential, auto (01/28/2025 12:33 AM CDT) Neutrophil abs 2.75 1.50 - 6.50 K/cumm Imm gran abs 0.01 0.00 - 0.10 K/cumm [facility] Lymphocyte abs 1.65 0.80 - 3.30 K/cumm [facility] Monocyte abs 0.58 0.20 - 0.80 K/cumm [facility] Eosinophil abs 0.27 0.00 - 0.50 K/cumm [facility] Basophil abs 0.01 0.00 - 0.10 K/cumm [facility] Neutrophil pct 52.2 % [facility] Comment: Interpretive Data Percent cell count reference ranges are not reported, since discordance with absolute values may lead to misinterpretation of CBC data. Current Interpretive Data was last revised on 2017. Imm gran pct 0.2 % [facility] Comment: Interpretive Data Percent cell count reference ranges are not reported, since discordance with absolute values may lead to misinterpretation of CBC data. Current Interpretive Data was last revised on 2017. Lymphocyte pct 31.3 % [facility] Comment: Interpretive Data Percent cell count reference ranges are not reported, since discordance with absolute values may lead to misinterpretation of CBC data. Current Interpretive Data was last revised on 2017. Monocyte pct 11.0 % [facility] Comment: Interpretive Data Percent cell count reference ranges are not reported, since discordance with absolute values may lead to misinterpretation of CBC data. Current Interpretive Data was last revised on 2017. Eosinophil pct 5.1 % [facility] Comment: Interpretive Data Percent cell count reference ranges are not reported, since discordance with absolute values may lead to misinterpretation of CBC data. Current Interpretive Data was last revised on 2017. Basophil pct 0.2 % [facility] Comment: Interpretive Data Percent cell count reference ranges are not reported, since discordance with absolute values may lead to misinterpretation of CBC data. Current Interpretive Data was last revised on 2017. Blood 01/28/2025 12:3 3 AM CDT 01/28/2025 12:53 AM CDT us Navarro Alston MD PhD LAB BLOOD ORDERABLES F inal Result [facility] Department [place] [address] * (ABNORMAL) CBC with auto differential (01/28/2025 12:33 AM CDT) WBC 5.27 3.80 - 9.90 K/cumm Hgb 12.9(L) 13.0 - 17.5 g/dL [facility] Hct 39.0 38.9 - 50.3 % [facility] Plt 232 150 - 400 K/cumm [facility] MPV 9.8 9.1 - 12.3 fL [facility] RBC 4.56 4.30 - 5.80 M/cumm [facility] MCV 85.5 81.3 - 96.4 fL [facility] MCH 28.3 27.1 - 33.3 pg [facility] MCHC 33.1 32.3 - 35.7 g/dL [facility] RDW CV 14.5 11.1 - 14.9 % [facility] RDW SD 44.2 35.7 - 48.1 fL [facility] NRBC abs 0.00 0.00 - 0.01 K/cumm [facility] Blood 01/28/2025 12:3 3 AM CDT 01/28/2025 12:53 AM CDT Navarro Alston MD PhD LAB BLOOD ORDERABLES F inal Result Performing Organization Address City/[facility]/ZIP Co de Phone Number [facility] [place] [address] * CRP (acute phase) (01/28/2025 12:33 AM CDT) Pathologist [facility] CRP <0.5 <=10.0 mg/L Blood 01/28/2025 12:3 3 AM CDT 01/28/2025 12:53 AM CDT Navarro Alston MD PhD LAB BLOOD ORDERABLES F inal Result Performing Organization Address City/[facility]/ZIP Co de Phone Number [facility] Department [place] [address] * Comprehensive metabolic panel (01/28/2025 12:33 AM CDT) Pathologist [facility] Sodium 142 135 - 145 mmol/L Potassium, pl 4.1 3.3 - 4.9 mmol/L [facility] Chloride 109 97 - 110 mmol/L [facility] CO2 24 22 - 32 mmol/L [facility] Anion gap 9 2 - 15 mmol/L [facility] BUN 10 6 - 25 mg/dL [facility] Creatinine 1.14 0.80 - 1.30 mg/dL [facility] Glucose 150 70 - 199 mg/dL [facility] Comment: Interpretive Data Fasting glucose [...] 2022. Calcium 9.4 8.5 - 10.3 mg/dL [facility] Bilirubin, total 0.3 0.1 - 1.2 mg/dL [facility] Protein, pl 7.2 6.5 - 8.5 g/dL [facility] Albumin 4.0 3.5 - 5.0 g/dL [facility] Alk phos 65 40 - 130 Units/L [facility] ALT 45 7 - 55 Units/L [facility] AST 41 10 - 50 Units/L [facility] Blood 01/28/2025 12:3 3 AM CDT 01/28/2025 12:53 AM CDT Rupert Kaplan MD LAB BLOOD ORDERABLES Final Result [facility] [place] [address] * (ABNORMAL) ECG 12-LEAD (01/28/2025 12:14 AM CDT) Narrative [facility] - 01/28/2025 12:14 AM CDT [...] Rupert Kaplan MD ECG ORDERABLES Final Result [facility] * eGFR (01/18/2025 1:39 AM CDT) [...] BLOOD ORDERABLES Final Resul t [facility] ([place]) [address] [facility] [place] [address] * Differential, auto (01/18/2025 1:39 AM CDT) [...] BLOOD ORDERABLES Final Resul t [facility] ([place]) [address] [facility] [place] [address] * CBC with auto differential (01/18/2025 1:39 [...] NRBC abs 0.00 0.00 - 0.01 K/cumm [facility] Blood 01/18/2025 1:39 AM CDT 01/18/2025 1:43 AM CDT us Luana Beckett MD LAB BLOOD ORDERABLES Final Resul t [facility] ([place]) [address] [facility] Department [place] [address] * Basic metabolic panel (01/18/2025 1:39 AM CDT) Sodium 142 135 - 145 mmol/L Potassium, pl 3.7 3.3 - 4.9 mmol/L [facility] ([place]) Chloride 106 97 - 110 mmol/L [facility] ([place]) CO2 23 22 - 32 mmol/L [facility] ([place]) Anion gap 13 2 - 15 mmol/L [facility] ([place]) BUN 14 6 - 25 mg/dL [facility] ([place]) Creatinine 1.10 0.80 - 1.30 mg/dL [facility] ([place]) Glucose 141 70 - 199 mg/dL [facility] ([place]) Comment: Interpretive Data Fasting glucose >/= 126 [...] 2022. Calcium 8.9 8.5 - 10.3 mg/dL [facility] ([place] Blood 01/18/2025 1:39 AM CDT 01/18/2025 1:43 AM CDT us Luana Beckett MD LAB BLOOD ORDERABLES Final Resul t Performing Organization Address City/[facility] Co de Phone Number [facility] ([place] [address] [facility] [place] [address] * Troponin T high-sensitivity 2-hour (01/13/2025 10:45 AM CDT) Trop T hs <6 <=22 ng/L Comment: Interpretive Data For further hscTnT resources including the diagnostic algorithm and an aid in interpretation, copy and paste this link: https://nrl.testcatalog.org/show/hsTrop Current Interpretive Data last revised 2020. Trop T hs delta 0 ng/L [facility] Trop T hs interp Insignificant [facility] Blood 01/13/2025 10:4 5 AM CDT 01/13/2025 11:08 AM CDT us Ray Murphy MD LAB BLOOD ORDERABLES Final Resul t Performing Organization Address City/[facility]/ZIP Co de Phone Number [facility] [address] [facility] [place] [address] * Influenza A/B, RSV, and COVID-19 PCR Nasopharyngeal (01/13/2025 10:45 AM CDT) COVID-19 RNA Negative Negative Influenza A RNA Negative Negative [facility] Influenza B RNA Negative Negative [facility] RSV RNA Negative Negative [facility] Comment: Interpretive data: Testing performed by [facility]. This test is performed using the [employer] Xpert Xpress CoV-2/Flu/RSV plus assay. This is a multiplex, real-time reverse transcriptase PCR assay intended for the qualitative detection of nucleic acid from SARS-CoV-2, influenza A, influenza B, and respiratory syncytial virus. This assay has been cleared by the [place] Food and Drug administration. The performance characteristics have been verified by the [facility]. Results must be considered in the clinical context, and a negative result does not rule out infection. Interpretive Data last revised 2023 Nasopharyngeal 01/13/2025 10 :45 AM CDT 01/13/2025 10:49 AM CDT Narrative [facility] - 01/13/2025 11:53 AM CDT Is the Patient experiencing symptoms consistent with COVID?->Unknown us Ray Murphy MD LAB MICROBIOLOGY - GENERAL ORDER DIEGO Final Result [facility] [address] [facility] [place] [address] * XR Chest 1 Vw Portable (if [...] Todd Castro M.D. ZEHRA T: Report ID: [id number] Reading Location: [id number] Procedure Note Serjio Castro MD - 01/13/2025 [...] Todd Castro M.D. ZEHRA T: Report ID: [id number] Reading Location: [id number] us Ray Murphy MD IMG XR PROCEDURES Final Result * Erythrocyte sedimentation rate (01/13/2025 10:45 AM CDT) Erythrocyte sedimentation rate 12 1 - 15 mm/hr Blood 01/13/2025 10:4 5 AM CDT 01/13/2025 11:08 AM CDT us Ray Murphy MD LAB BLOOD ORDERABLES Final Resul t Performing Organization Address City/[facility] Co de Phone Number [facility] [place] [address] * CRP (acute phase) (01/13/2025 10:45 AM CDT) CRP 0.5 <=10.0 mg/L Blood 01/13/2025 10:4 5 AM CDT 01/13/2025 11:08 AM CDT us Ray Murphy MD LAB BLOOD ORDERABLES Final Resul t Performing Organization Address [facility] de Phone Number [facility] [address] [place] [address] * ECG 12 lead (01/13/2025 9:08 AM CDT) [facility] Ventricular Rate EKG/Min 73 BPM [facility] Atrial Rate [address] [facility] [place]-Interval (MSEC) [address] [facility] QRS-Interval (MSEC) [address] [facility] QT-Interval (MSEC) [address] [facility] QTc 398 ms [facility] P [place] [address] [facility] R [place] [address] [facility] T [place] 68 degrees [facility] Diagnosis Normal sinus rhythm with sinus arrhythmia Voltage criteria for left ventricular hypertrophy likely pericarditis Confirmed by NICK ULRICH M.D. ([id number]) on 01/13/2025 2:20:07 PM [facility] 01/13/2025 9:08 AM CDT 01/13/2025 2:20 PM CDT us Ray Murphy MD ECG ORDERABLES Final Result Performing Organization Address [facility] Co de Phone Number [facility] * Troponin T high-sensitivity series (baseline, [...] ORDERABLES Final Resul t Performing Organization Address City/[facility] Co de Phone Number [facility] [address] [place] [place] [address] * eGFR (01/13/2025 8:59 AM CDT) [facility] eGFR >90 >=60 mL/min/1. 73 m2 [...] ORDERABLES Final Resul t Performing Organization Address City/[facility] Co de Phone Number [address] [place] [address] * (ABNORMAL) Differential, auto (01/13/2025 8:59 AM CDT) Neutrophil abs 5.23 1.50 - 6.50 K/cumm Imm gran abs 0.02 0.00 - 0.10 K/cumm [facility] Lymphocyte abs 0.51(L) 0.80 - 3.30 K/cumm [facility] Monocyte abs 0.20 0.20 - 0.80 K/cumm [facility] Eosinophil abs 0.00 0.00 - 0.50 K/cumm [facility] Basophil abs 0.01 0.00 - 0.10 K/cumm [facility] Neutrophil pct 87.6 % [facility] Comment: Interpretive Data Percent cell count reference ranges are not reported, since discordance with absolute values may lead to misinterpretation of CBC data. Current Interpretive Data was last revised on 2017. Imm gran pct 0.3 % [facility] Comment: Interpretive Data Percent cell count reference ranges are not reported, since discordance with absolute values may lead to misinterpretation of CBC data. Current Interpretive Data was last revised on 2017. Lymphocyte pct 8.5 % [facility] Comment: Interpretive Data Percent cell count reference ranges are not reported, since discordance with absolute values may lead to misinterpretation of CBC data. Current Interpretive Data was last revised on 2017. Monocyte pct 3.4 % [facility] Comment: Interpretive Data Percent cell count reference ranges are not reported, since discordance with absolute values may lead to misinterpretation of CBC data. Current Interpretive Data was last revised on 2017. Eosinophil pct 0.0 % [facility] Comment: Interpretive Data Percent cell count reference ranges are not reported, since discordance with absolute values may lead to misinterpretation of CBC data. Current Interpretive Data was last revised on 2017. Basophil pct 0.2 % [facility] Comment: Interpretive Data Percent cell count reference ranges are not reported, since discordance with absolute values may lead to misinterpretation of CBC data. Current Interpretive Data was last revised on 2017. Blood 01/13/2025 8:59 AM CDT 01/13/2025 9:02 AM CDT us Ray Murphy MD LAB BLOOD ORDERABLES Final Resul t [address] [address] * (ABNORMAL) CBC with auto differential (01/13/2025 8:59 AM CDT) [facility] WBC 5.97 3.80 - 9.90 K/cumm Hgb 13.4 13.0 - 17.5 g/dL [facility] Hct 41.7 38.9 - 50.3 % [facility] Plt 255 150 - 400 K/cumm [facility] MPV 9.3 9.1 - 12.[address] [facility] RBC 4.78 4.30 - 5.80 M/cumm [facility] MCV 87.2 81.3 - 96.[address] [facility] MCH 28.0 27.1 - 33.[address] [facility] MCHC 32.1(L) 32.3 - 35.7 g/dL [facility] RDW CV 14.0 11.1 - 14.9 % [facility] RDW SD 44.2 35.7 - 48.[address] [facility] NRBC abs 0.00 0.00 - 0.01 K/cumm [facility] Blood Venous blood specimen / Unknown 01/13/2025 8:59 AM CDT 01/13/2025 9:02 AM CDT us Ray Murphy MD LAB BLOOD ORDERABLES Final Resul t Performing Organization Address [facility] Co de Phone Number [address] [place] [address] * (ABNORMAL) Comprehensive metabolic panel (01/13/2025 8:59 AM CDT) [facility] Sodium 138 135 - 145 mmol/L Potassium, pl 4.5 3.3 - 4.9 mmol/L [facility] Chloride 104 97 - 110 mmol/L [facility] CO2 21(L) 22 - 32 mmol/L [facility] Anion gap 13 2 - 15 mmol/L [facility] BUN 9 6 - 25 mg/dL [facility] Creatinine 0.98 0.80 - 1.30 mg/dL [facility] Glucose 126 70 - 199 mg/dL [facility] Comment: Interpretive Data Fasting glucose >/= [...] 9.6 8.5 - 10.3 mg/dL [facility] Bilirubin, total 0.3 0.1 - 1.2 mg/dL [facility] Protein, pl 7.7 6.5 - 8.5 g/dL [facility] Albumin 4.5 3.5 - 5.0 g/dL [facility] Alk phos 64 40 - 130 Units/L [facility] ALT 63(H) 7 - 55 Units/L [facility] AST 42 10 - 50 Units/L [facility] Blood 01/13/2025 8:59 AM CDT 01/13/2025 9:02 AM CDT us Ray Murphy MD LAB BLOOD ORDERABLES Final Resul t [facility] [address] [facility] [place] [address] * (ABNORMAL) Urinalysis reflex to microscopic and culture Urine (01/06/2025 12:40 AM CDT) Color, ur Yellow Yellow Clarity, ur Clear Clear [facility] A ([place]) Specific gravity, ur 1.023 1.003 - 1.030 [facility] ([place]) pH, urine 5.5 [facility] ([place]) Comment: Interpretive Data U rine pH is affected by diet, medications, systemic acid-base disturbances, and renal tubular function. pH may affect urinary stone formation. For example, urine pH below 6.0 may help reduce the tendency for calcium phosphate stones and pH greater than 6.0 may reduce the tendency for uric acid stone formation. Source: [facility] Current Interpretive Data was last revised [...] DERABLES Final Result [facility] ([place]) [address] [facility] Department [place] [address] * (ABNORMAL) Drugs of Abuse Screen, Urine [...] Not Detected CutOff 25 ng/mL [facility] ([place]) Comment: Interpretive Data - Phencyclidine: Samples containing [...] 01/06/2025 12:58 AM CDT Narrative [facility] ([place]) - 01/06/2025 1:24 AM CDT Drug of Abuse screening is performed by immunoassay for medical purposes only. This is not to be used for Pain Management purposes. us oJse Sullivan MD LAB URINE ORDERABLES Final Re sult [facility] ([place]) [address] [facility] Department [place] [address] * (ABNORMAL) Urinalysis, microscopic only (01/06/2025 12:40 AM CDT) WBC, ur 11-20(A) 0 - 5 /HPF RBC, ur 6-10(A) 0 - 2 /HPF [facility] ([place]) Epithelial cells, squamous, ur 1-5 0 - 5 /HPF [facility] ([place]) Mucous, ur Present(A) [facility] ([place]) Hyaline casts, ur 1-5 0 - 10 /LPF [facility] ([place]) Culture Reflex Comment Reflex to urine culture will be performed. [facility] ([place]) Urine 01/06/2025 12:4 0 AM CDT 01/06/2025 12:58 AM CDT us Jose Sullivan MD LAB URINE ORDERABLES Final Re sult Performing Organization Address [facility]/ZIP Co de Phone Number [facility] ([place]) [address] [place] [address] [place] [address] * Urine culture Urine (01/06/2025 12:40 AM CDT) Report Final Report: Less than 100,000 colonies/mL (clinically insignificant growth based on current clinical standards) Comment:Testing performed by : [facility], [address] [facility] [place] [address] Organism (CLINICALLY INSIGNIFICANT GROWTH [facility] ([place]) Urine 01/06/2025 12:4 0 AM CDT 01/06/2025 6:07 AM CDT Narrative [facility] ([place]) - 01/07/2025 12:32 PM CDT Urine culture reflexed based upon urinalysis results. Testing performed by [facility] Microbiology Laboratory ([phone]) us Jose Sullivan MD LAB MICROBIOLOGY - GENERAL OR DERABLES Final Result Performing Organization Address [facility] Co de Phone Number [facility] [address] [place] [address] Department [place] [address] * COVID-19 Coronavirus RNA Nasopharyngeal (01/06/2025 12:32 AM CDT) COVID-19 RNA Negative Negative Nasopharyngeal 01/06/2025 12 :32 AM CDT 01/06/2025 12:47 AM CDT Narrative [facility] ([place]) - 01/06/2025 1:25 AM CDT Is the patient experiencing any symptoms consistent with COVID (eg. Fever, cough, shortness of breath)?->No What is the reason for testing?->Screening for semi-private room placement Interpretive data: Testing performed by [facility]. This test is performed using the Cepheid Xpert Xpress CoV-2 plus assay. This is a real-time RT-PCR test intended for the qualitative detection of nucleic acid from the SARS-CoV-2. This assay has been cleared by the [place] Food and Drug administration. The performance characteristics have been verified by [facility]. Results must be considered in the clinical context, and a negative result does not rule out infection. Interpretive data last revised 2024. Interpretive data: Testing performed by [facility]. This test is performed using the [employer] Xpert Xpress CoV-2 plus assay. This is a real-time RT-PCR test intended for the qualitative detection of nucleic acid from the SARS-CoV-2. This assay has been cleared by the [facility] Food and Drug administration. The performance characteristics have been verified by [facility]. Results must be considered in the clinical context, and a negative result does not rule out infection. Interpretive data last revised 2024. Jose Sullivan MD LAB MICROBIOLOGY - GENERAL OR DERABLES Final Result [facility] [place] [address] [facility] Department [place] [address] * eGFR (01/06/2025 12:32 AM CDT) eGFR [...] MD LAB BLOOD ORDERABLES Final Re sult [facility] ([place]) [address] [facility] Department [place] [address] * Differential, auto (01/06/2025 12:32 AM CDT) Neutrophil abs 5.57 1.50 - 6.50 K/cumm Imm gran abs 0.04 0.00 - 0.10 K/cumm [facility] ([place]) Lymphocyte abs 1.68 0.80 - 3.30 K/cumm [facility] ([place]) Monocyte abs 0.41 0.20 - 0.80 K/cumm [facility] ([place]) Eosinophil abs 0.13 0.00 - 0.50 K/cumm [facility] ([place]) Basophil abs 0.03 0.00 - 0.10 K/cumm [facility] ([place]) Neutrophil pct 70.8 % [facility] ([place]) Comment: Interpretive Data Percent cell count reference ranges are not reported, since discordance with absolute values may lead to misinterpretation of CBC data. Current Interpretive Data was last revised on 2017. Imm gran pct 0.5 % [facility] ([place]) Comment: Interpretive Data Percent cell count reference [...] ORDERABLES Final Re sult Performing Organization Address City/[facility]/ZIP Co de Phone Number [facility] ([place]) [address] [facility] [place] [address] * Thyroid Function [facility] (01/06/2025 12:32 AM CDT) TSH 1.00 0.30 - 4.20 mcIUnit/mL Blood 01/06/2025 12:3 2 AM CDT 01/06/2025 12:47 AM CDT us Jose Sullivan MD LAB BLOOD ORDERABLES Final Re sult Performing Organization Address City/[facility]/ZIP Co de Phone Number [facility] ([place]) [address] [facility] [place] [address] * CBC with auto differential (01/06/2025 12:32 AM CDT) WBC 7.86 3.80 - 9.90 K/cumm Hgb 13.4 13.0 - 17.5 g/dL [facility] ([place]) Hct 41.2 38.9 - 50.3 % [facility] ([place]) Plt 259 150 - 400 K/cumm [facility] ([place]) MPV 10.2 9.1 - 12.3 fL [facility] ([place]) RBC 4.65 4.30 - 5.80 M/cumm [facility] ([place]) MCV 88.6 81.3 - 96.4 fL [facility] ([place]) MCH 28.8 27.1 - 33.3 pg [facility] ([place]) MCHC 32.5 32.3 - 35.7 g/dL [facility] ([place]) RDW CV 13.5 11.1 - 14.9 % [facility] ([place]) RDW SD 43.3 35.7 - 48.1 fL [facility] ([place]) NRBC abs 0.00 0.00 - 0.01 K/cumm [facility] ([place]) Blood Venous blood specimen / Unknown 01/06/2025 12:32 AM CDT 01/06/2025 12:47 AM CDT us Jose Sullivan MD LAB BLOOD ORDERABLES Final Re sult Performing Organization Address City/[facility]/ZIP Co de Phone Number [facility] ([place]) [address] [facility] [place] [address] * Ethanol (01/06/2025 12:32 AM CDT) Ethanol <10 <=10 mg/dL Comment: Interpretive Data Legal limit of intoxication > or = 80 mg/dL Levels > or = 400 mg/dL are potentially TOXIC. Current interpretive data was last revised on 2018. Blood 01/06/2025 12:3 2 AM CDT 01/06/2025 12:47 AM CDT us Jose Sullivan MD LAB BLOOD ORDERABLES Final Re sult [facility] ([place]) [address] [facility] [place] [address] * (ABNORMAL) Comprehensive metabolic panel (01/06/2025 12:32 AM CDT) Sodium 135 135 - 145 mmol/L Potassium, pl 4.7 3.3 - 4.9 mmol/L [facility] ([place] Comment:Moderately Hemolyzed Specimen. Results [...] Bilirubin, total 0.2 0.1 - 1.2 mg/dL [facility] ([place]) Protein, pl 7.4 6.5 [...] MD LAB BLOOD ORDERABLES Final Re sult [facility] ([place] [address] [facility] Department [place] [address] * eGFR (01/01/2025 10:28 PM CDT) eGFR [...] MD LAB BLOOD ORDERABLES Final R esult [facility] [place] [address] * (ABNORMAL) Differential, auto (01/01/2025 10:28 PM CDT) Pathologist [facility] Neutrophil abs 4.69 1.50 - 6.50 K/cumm Imm gran abs 0.02 0.00 - 0.10 K/cumm [facility] Lymphocyte abs 1.78 0.80 - 3.30 K/cumm [facility] Monocyte abs 0.87(H) 0.20 - 0.80 K/cumm [facility] Eosinophil abs 0.17 0.00 - 0.50 K/cumm [facility] Basophil abs 0.03 0.00 - 0.10 K/cumm [facility] Neutrophil pct 62.1 % [facility] Comment: Interpretive Data Percent cell count reference ranges are not reported, since discordance with absolute values may lead to misinterpretation of CBC data. Current Interpretive Data was last revised on 2017. Imm gran pct 0.3 % [facility] Comment: Interpretive Data Percent cell count reference ranges are not reported, since discordance with absolute values may lead to misinterpretation of CBC data. Current Interpretive Data was last revised on 2017. Lymphocyte pct 23.5 % [facility] Comment: Interpretive Data Percent cell count reference ranges are not reported, since discordance with absolute values may lead to misinterpretation of CBC data. Current Interpretive Data was last revised on 2017. Monocyte pct 11.5 % [facility] Comment: Interpretive Data Percent cell count reference ranges are not reported, since discordance with absolute values may lead to misinterpretation of CBC data. Current Interpretive Data was last revised on 2017. Eosinophil pct 2.2 % [facility] Comment: Interpretive Data Percent cell count reference ranges are not reported, since discordance with absolute values may lead to misinterpretation of CBC data. Current Interpretive Data was last revised on 2017. Basophil pct 0.4 % [facility] Comment: Interpretive Data Percent cell count reference ranges are not reported, since discordance with absolute values may lead to misinterpretation of CBC data. Current Interpretive Data was last revised on 2017. Blood 01/01/2025 10:2 8 PM CDT 01/01/2025 10:35 PM CDT us Irina Yeager MD LAB BLOOD ORDERABLES Final R esult [facility] Department [place] [address] * (ABNORMAL) Urinalysis reflex to microscopic (01/01/2025 10:28 PM CDT) Color, ur Yellow Yellow Clarity, ur Clear Clear [facility] Specific gravity, ur 1.027 1.003 - 1.030 [facility] pH, urine 6.0 [facility] Comment: Interpretive Data U rine pH is affected by diet, medications, systemic acid-base disturbances, and renal tubular function. pH may affect urinary stone formation. For example, urine pH below 6.0 may help reduce the tendency for calcium phosphate stones and pH greater than 6.0 may reduce the tendency for uric acid stone formation. Source: [facility] Current Interpretive Data was last revised on 2017 Protein, ur ql 1+(A) Negative [facility] Glucose, ur ql Negative Negative [facility] Ketones, ur Negative Negative [facility] Bilirubin, ur Negative Negative [facility] Blood, ur 2+(A) Negative [facility] Urobilinogen, ur <2.0 <2.0 mg/dL [facility] Nitrite, ur Negative Negative [facility] Leukocyte esterase, ur Negative Negative [facility] UA reflex comment Reflex to microscopic UA will be performed. [facility] Urine 01/01/2025 10:2 8 PM CDT 01/01/2025 10:33 PM CDT us Irina Yeager MD LAB URINE ORDERABLES Final R esult [facility] Department [place] [address] * CBC with auto differential (01/01/2025 10:28 PM CDT) WBC 7.56 3.80 - 9.90 K/cumm Hgb 14.8 13.0 - 17.5 g/dL [facility] Hct 45.4 38.9 - 50.3 % [facility] Plt 308 150 - 400 K/cumm [facility] MPV 10.1 9.1 - 12.3 fL [facility] RBC 5.26 4.30 - 5.80 M/cumm [facility] MCV 86.3 81.3 - 96.4 fL [facility] MCH 28.1 27.1 - 33.3 pg [facility] MCHC 32.6 32.3 - 35.7 g/dL [facility] RDW CV 13.4 11.1 - 14.9 % [facility] RDW SD 42.3 35.7 - 48.1 fL [facility] NRBC abs 0.00 0.00 - 0.01 K/cumm [facility] Blood Venous blood specimen / Unknown 01/01/2025 10:28 PM CDT 01/01/2025 10:35 PM CDT Irina Yeager MD LAB BLOOD ORDERABLES Final R esult Performing Organization Address City/[facility]/ZIP Co de Phone Number [facility] [place] [address] * (ABNORMAL) Urinalysis, microscopic only (01/01/2025 10:28 PM CDT) WBC, ur 0-5 0 - 5 /HPF RBC, ur >50(A) 0 - 2 /HPF [facility] Mucous, ur Present(A) [facility] Urine 01/01/2025 10:2 8 PM CDT 01/01/2025 10:33 PM CDT Irina Yeager MD LAB URINE ORDERABLES Final R esult Performing Organization Address City/[facility]/ZIP Co de Phone Number [facility] [place] [address] * Lipase (01/01/2025 10:28 PM CDT) Lipase 26 10 - 99 Units/L Blood Venous blood specimen / Unknown 01/01/2025 10:28 PM CDT 01/01/2025 10:34 PM CDT Irina Yeager MD LAB BLOOD ORDERABLES Final R esult [facility] [place] [address] * (ABNORMAL) Creatine kinase (CK), total (01/01/2025 10:28 PM CDT) CK 632(H) 40 - 300 Units/L Blood 01/01/2025 10:2 8 PM CDT 01/01/2025 10:34 PM CDT Irina Yeager MD LAB BLOOD ORDERABLES Final R esult Performing Organization Address [facility] de Phone Number [facility] [place] [address] * Acetaminophen level (01/01/2025 10:28 PM CDT) [...] after ingestion Consult toxicology or poison control ([phone]) for unknown ingestion time. Current interpretive data was last revised 2023. Blood 01/01/2025 10:2 8 PM CDT 01/01/2025 10:34 PM CDT Maye Pradhan NP LAB BLOOD ORDERABLES Final Result Performing Organization Address [facility] de Phone Number [facility] Department [place] [address] * Salicylate level (01/01/2025 10:28 PM CDT) Salicylate <9.0 <=9.0 mg/dL Comment: Interpretive Data Toxic: 30 mg/dL or greater. Current interpretive data was last revised 2023. Blood 01/01/2025 10:2 8 PM CDT 01/01/2025 10:34 PM CDT Maye Pradhan [employer] LAB BLOOD ORDERABLES Final Result Performing Organization Address [facility] Co de Phone Number [facility] Department [place] [address] * (ABNORMAL) Valproic acid level, total (01/01/2025 [...] CDT 01/01/2025 10:34 PM CDT Maye Pradhan [employer] LAB BLOOD ORDERABLES Final Result Performing Organization Address [facility] de Phone Number [facility] Department [place] [address] * Comprehensive metabolic panel (01/01/2025 10:28 PM CDT) Pathologist [facility] Sodium 141 135 - 145 mmol/L Potassium, pl 4.0 3.3 - 4.9 mmol/L [facility] Comment:Hemolyzed; Potassium value may be falsely elevated by as much as 0.3-0.5 mmol/L. Suggest redraw and reanalysis. Chloride 105 97 - 110 mmol/L [facility] CO2 26 22 - 32 mmol/L [facility] Anion gap 10 2 - 15 mmol/L [facility] BUN 10 6 - 25 mg/dL [facility] Creatinine 1.24 0.80 - 1.30 mg/dL [facility] Glucose 123 70 - 199 mg/dL [facility] Comment: Interpretive Data Fasting glucose [...] Calcium 9.8 8.5 - 10.3 mg/dL [facility] Bilirubin, total 0.2 0.1 - 1.2 mg/dL [facility] Protein, pl 8.1 6.5 - 8.5 g/dL [facility] Albumin 4.3 3.5 - 5.0 g/dL [facility] Alk phos 78 40 - 130 Units/L [facility] ALT 40 7 - 55 Units/L [facility] AST 47 10 - 50 Units/L [facility] Comment:Hemolyzed; result ma y be falsely elevated Blood 01/01/2025 10:2 8 PM CDT 01/01/2025 10:34 PM CDT us Irnia Yeager MD LAB BLOOD ORDERABLES Final R esult [facility] [place] [address] * ANUSHKA screen w/rflx FLIP+dsDNA (12/30/2024 11:56 [...] last revised on 2020. Testing performed by: [facility], [address] [facility], [place]., [address] Blood 12/30/2024 11:5 6 AM CDT 12/30/2024 3:00 PM CDT Navarro Zuleta Jr., MD LAB BLOOD ORDERABLE S Final Result Performing Organization Address [facility] Co de Phone Number [facility] ([place]) [address] [facility] [place] [address] * HIV 1/2 Antibody plus p24 Antigen Blood (12/30/2024 11:56 AM CDT) HIV 1/2 ab + p24 ag Nonreactive Nonreactive Comment: Nonreactive for HIV-1 antigen and HIV-1/HIV-2 antibodies. No laboratory evidence of HIV infection. If acute HIV infection is suspected, consider testing for HIV-1 RNA. Testing performed by: [address], [address] Blood 12/30/2024 11:5 6 AM CDT 12/30/2024 1:50 PM CDT us Navarro Zuleta Jr., MD LAB MICROBIOLOGY - GENERAL ORDERABLES Final Result Performing Organization Address [facility] de Phone Number [facility] ([place]) [address] [facility] [place] [address] * RPR Blood (12/30/2024 11:56 AM CDT) RPR Nonreactive Nonreactive Comment:Testing performed by : [facility], [address] [place] [address]., [address] Blood 12/30/2024 11:5 6 AM CDT 12/30/2024 1:50 PM CDT Navarro Zuleta Jr., MD LAB MICROBIOLOGY - GENERAL ORDERABLES Final Result Performing Organization Address [facility]/ZIP Co de Phone Number [facility] ([place]) [address] [facility] [place] [address] * Troponin T high-sensitivity 6-hour (12/30/2024 5:09 [...] Vickie l Result [facility] ([place]) [address] [facility] Department [place] [address] * eGFR (12/30/2024 5:09 AM CDT) eGFR [...] BLOOD ORDERABLES Fin al Result [facility] ([place]) [address] [facility] Department of Laboratories [place], [place] [id number] * (ABNORMAL) Differential, auto (12/30/2024 5:09 AM CDT) Neutrophil abs 3.85 1.50 - 6.50 K/cumm Imm gran abs 0.03 0.00 - 0.10 K/cumm [facility] ([place]) Lymphocyte abs 1.68 0.80 - 3.30 K/cumm [facility] ([place]) Monocyte abs 0.94(H) 0.20 - 0.80 K/cumm [facility] ([place]) Eosinophil abs 0.14 0.00 - 0.50 K/cumm [facility] ([place]) Basophil abs 0.02 0.00 - 0.10 K/cumm [facility] ([place]) Neutrophil pct 57.8 % [facility] ([place]) Comment: Interpretive Data Percent cell count reference ranges are not reported, since discordance with absolute values may lead to misinterpretation of CBC data. Current Interpretive Data was last revised on 2017. Imm gran pct 0.5 % [facility] ([place]) Comment: Interpretive Data Percent cell count reference [...] 2017. Monocyte pct 14.1 % [facility] ([place]) Comment: Interpretive Data Percent cell count reference ranges are not reported, since discordance with absolute values may lead to misinterpretation of CBC data. Current Interpretive Data was last revised on 2017. Eosinophil pct 2.1 % [facility] ([place]) Comment: Interpretive Data Percent cell count reference [...] AM CDT 12/30/2024 5:12 AM CDT Kelly CamarenaFightMe LAB BLOOD ORDERABLES Fin al Result [facility] ([place]) 1 [facility] [place] [address] * (ABNORMAL) CBC with auto differential (12/30/2024 [...] Fin al Result [facility] ([place]) 1 [facility] [place] [address] * Phosphorus (12/30/2024 5:09 AM CDT) Pathologist [facility] Phosphorus, pl 3.8 2.3 - 4.5 mg/dL Blood 12/30/2024 5:09 AM CDT 12/30/2024 5:12 AM CDT Kelly Camarenaseedtag DO LAB BLOOD ORDERABLES Fin al Result Performing Organization Address City/[facility] Co de Phone Number [facility] ([place]) 1 [facility] [place] [address] * Magnesium (12/30/2024 5:09 AM CDT) Pathologist [facility] Magnesium 1.8 1.4 - 2.5 mg/dL Blood 12/30/2024 5:09 AM CDT 12/30/2024 5:12 AM CDT Kelly CamarenaFightMe LAB BLOOD ORDERABLES Fin al Result Performing Organization Address City/[facility] Co de Phone Number [facility] ([place]) 1 [facility] [place] [address] * Comprehensive metabolic panel (12/30/2024 5:09 AM CDT) Pathologist [facility] Sodium 137 135 - 145 mmol/L Potassium, pl 4.8 3.3 - 4.9 mmol/L [facility] ([place]) Comment:Slightly Hemolyzed S pecimen. Results may be affected. Chloride 105 97 - 110 mmol/L [facility] ([place]) CO2 22 22 - 32 mmol/L [facility] ([place]) Anion gap 10 2 - 15 mmol/L [facility] ([place]) BUN 7 6 - 25 mg/dL [facility] ([place]) Creatinine 1.00 0.80 [...] Fin al Result [facility] ([place]) 1 [facility] Department [place] [address] * Erythrocyte sedimentation rate (12/30/2024 5:07 AM CDT) Erythrocyte sedimentation rate 11 1 - 15 mm/hr Blood 12/30/2024 5:07 AM CDT 12/30/2024 6:46 AM CDT us Navarro Zuleta Jr., MD LAB BLOOD ORDERABLE S Final Result [facility] ([place]) 1 [place] [address] * CRP (acute phase) (12/30/2024 5:07 AM CDT) CRP <3.0 <=10.0 mg/L Blood 12/30/2024 5:07 AM CDT 12/30/2024 6:48 AM CDT us Navarro Zuleta Jr., MD LAB BLOOD ORDERABLE S Final Result Performing Organization Address [facility] Co de Phone Number [facility] ([place]) 1 [place] [address] * (ABNORMAL) Troponin T high-sensitivity 2-hour (12/30/2024 12:43 AM CDT) Pathologist [facility] Trop T hs 26(H) <=22 ng/L Comment: Interpretive Data For further hscTnT resources including the diagnostic algorithm and an aid in interpretation, copy and paste this link: https://nrl.testcatalog.org/show/hsTrop Current Interpretive Data last revised 2020. Trop T hs delta -3 ng/L [facility] ([place]) Trop T hs interp Insignificant [facility] ([place]) Blood 12/30/2024 12:4 3 AM CDT 12/30/2024 12:45 AM CDT us Larissa Medellin MD LAB BLOOD ORDERABLES Vickie l Result [facility] ([place]) 1 [facility] [place] [address] * Lipase (12/30/2024 12:43 AM CDT) Pathologist [facility] Lipase 25 10 - 99 Units/L Blood 12/30/2024 12:4 3 AM CDT 12/30/2024 1:46 AM CDT Kelly Knight DO LAB BLOOD ORDERABLES Fin al Result [facility] ([place]) 1 [facility] Department [place] [address] * ECG 12 lead (12/30/2024 12:32 AM CDT) 12/30/2024 12:3 2 AM CDT Narrative [facility] - 12/30/2024 7:25 AM CDT Vent Rate: 104 bpm RR Interval: 575 msec [place] Interval: 159 msec QRS Duration: 109 msec QT Interval: 330 msec QTC Interval: 390 msec P-R-T [place]: 56 - 85 - -50 degrees IMPRESSION: SINUS TACHYCARDIA LEFT VENTRICULAR HYPERTROPHY AND ST-T CHANGE [VOLTAGE CRITERIA PLUS ST/T ABNORMALITY] ST ELEVATION, CONSIDER ANTERIOR INJURY [MARKED ST ELEVATION W/O NORMALLY INFLECTED T-WAVE IN V2-V5] ACUTE ND NO CHANGE FROM PREVIOUS TRACING NOTED Electronically Signed By: Skyler Waite MD Jose Sullivan MD ECG ORDERABLES Final Result Performing Organization Address City/[facility]/ZIP Co de Phone Number [facility] * Urinalysis reflex to microscopic and culture Urine, bladder (12/30/2024 12:06 AM CDT) Color, ur Yellow Yellow Clarity, ur Clear Clear [facility] A ([place]) Specific gravity, ur 1.020 1.003 - 1.030 [facility] ([place]) pH, urine 7.5 [facility] ([place]) Comment: Interpretive Data U rine pH is affected by diet, medications, systemic acid-base disturbances, and renal tubular function. pH may affect urinary stone formation. For example, urine pH below 6.0 may help reduce the tendency for calcium phosphate stones and pH greater than 6.0 may reduce the tendency for uric acid stone formation. Source: [facility] [place] Current Interpretive Data was last revised on 2017 Protein, ur ql Negative Negative [facility] ([place]) Glucose, ur ql Negative Negative [facility] R [...] DERABLES Final Result [facility] ([place]) 1 [facility] Department [place] [address] * (ABNORMAL) Drugs of Abuse Screen, Urine [...] Not Detected CutOff 25 ng/mL [facility] ([place]) Comment: Interpretive Data - Phencyclidine: Samples containing greater than 25 ng/mL phencyclidine or other cross-reacting compounds are reported as positive. False positive and false negative results are possible. Confirmatory testing required for definitive results. Current Interpretive Data was last reviewed 2023. Urine Creatinine 155 mg/dL [facility]ON [facility] ([place]) Comment: Interpretive Data Urine Creatinine: < 10 mg/dL is extremely dilute = or > 10 but < 20 mg/dL is dilute = or > 20 mg/dL is normal Current Interpretive Data was last revised on 2017. Urine 12/30/2024 12:0 6 AM CDT 12/30/2024 12:11 AM CDT Narrative [facility] ([place]) - 12/30/2024 12:55 AM CDT Drug of Abuse screening is performed by immunoassay for medical purposes only. This is not to be used for Pain Management purposes. Jose Sullivan MD LAB URINE ORDERABLES Final Re sult Performing Organization Address City/State/[facility] Co de Phone Number [facility] ([place]) 1 [facility] Department of Laboratories [place] [id number] * ECG 12 lead (12/29/2024 11:58 PM CDT) 12/29/2024 11:5 8 PM CDT Narrative [facility] - 12/30/2024 7:27 AM CDT Vent Rate: 116 bpm RR Interval: 516 msec [place] Interval: 163 msec QRS Duration: 106 msec QT Interval: 321 msec QTC Interval: 390 msec P-R-T [place]: 64 - 85 - -64 degrees IMPRESSION: SINUS TACHYCARDIA LEFT VENTRICULAR HYPERTROPHY AND ST-T CHANGE [VOLTAGE CRITERIA PLUS ST/T ABNORMALITY] ST ELEVATION, CONSIDER ANTERIOR INJURY [MARKED ST ELEVATION W/O NORMALLY INFLECTED T-WAVE IN V2-V5] ACUTE ND Compared to prior EKG, heart rate has increased Electronically Signed By: Skyler Waite MD Jose Sullivan MD ECG ORDERABLES Final Result [facility] * CT Chest PE (CTA) W Contrast [...] Richi Farr M.D. KT: NANNETTE Report ID: [id number] Reading Location: [id number] Procedure Note Richi Farr MD - 12/30/2024 [...] Richi Farr M.D. KT: KT Report ID: [id number] Reading Location: [id number] us Jose Sullivan MD IMG CT PROCEDURES [...] Sam M.D. AR: JOHN PAUL Report ID: [id number] Reading Location: [id number] Procedure Note Jaskaran Sam MD - 12/29/2024 [...] Sam M.D. AR: JOHN PAUL Report ID: [id number] Reading Location: [place] [address] us Jose Sullivan MD IMG XR PROCEDURES [...] ORDERABLES Final Re sult Performing Organization Address City/[facility]/ZIP Co de Phone Number [facility] ([place]) [address] [place] [address] [place] [address] * eGFR (12/29/2024 11:09 PM CDT) eGFR [...] BLOOD ORDERABLES Vickie l Result [facility] ([place]) 1 [facility] [place] [address] * Differential, auto (12/29/2024 11:09 PM CDT) [...] BLOOD ORDERABLES Vickie l Result [facility] ([place]) 1 [facility] [place] [id number] * (ABNORMAL) Thyroid Function [place] (12/29/2024 11:09 PM CDT) TSH 0.17(L) 0.30 - 4.20 mcIUnit/mL Blood 12/29/2024 11:0 9 PM CDT 12/30/2024 9:14 AM CDT us Jose Sullivan MD LAB BLOOD ORDERABLES Edited R esult - Final [facility] ([place]) 1 [facility] [place] [address] * CBC with auto differential (12/29/2024 11:09 PM CDT) Pathologist [facility] WBC 7.55 3.80 - 9.90 K/cumm Hgb [...] ORDERABLES Final Re sult Performing Organization Address [facility]/State/ZIP Co de Phone Number [facility] ([place]) 1 [facility] [place] [address] * T3, free (12/29/2024 11:09 PM CDT) Free T3 3.9 2.0 - 4.4 pg/mL Comment:Testing performed by : [facility], [address] [place] [address], [place]., [address] Blood 12/29/2024 11:0 9 PM CDT 12/30/2024 9:14 AM CDT Narrative [facility] ([place]) - 12/30/2024 9:57 AM CDT This test was reflexed from a T4 result. us Jose Sullivan MD LAB BLOOD ORDERABLES Final Re sult Performing Organization Address [facility] Co de Phone Number [facility] ([place]) [address] [place] [address] [place] [address] * T4, free (12/29/2024 11:09 PM CDT) Free T4 1.07 0.90 - 1.70 ng/dL Blood 12/29/2024 11:0 9 PM CDT 12/30/2024 9:14 AM CDT Narrative [facility] ([place]) - 12/30/2024 9:57 AM CDT This test was reflexed from a TSH result. Jose Sullivan MD LAB BLOOD ORDERABLES Edited R esult - Final Performing Organization Address [facility]/ZIP Co de Phone Number [facility] ([place]) 1 [facility] [place] [address] * Magnesium (12/29/2024 11:09 PM CDT) Magnesium 1.6 1.4 - 2.5 mg/dL Blood 12/29/2024 11:0 9 PM CDT 12/29/2024 11:15 PM CDT us Jose Sullivan MD LAB BLOOD ORDERABLES Final Re sult [facility] ([place]) 1 [facility] Department [place] [address] * Comprehensive metabolic panel (12/29/2024 11:09 PM CDT) Sodium 137 135 - 145 mmol/L Potassium, pl 4.2 3.3 - 4.9 mmol/L [facility] Chloride 99 97 - 110 mmol/L [facility] ([place]) CO2 24 22 - 32 mmol/L [facility] ([place]) Anion gap 14 2 - 15 mmol/L [facility] ([place]) BUN 8 6 - 25 mg/dL [facility] Creatinine 1.04 0.80 - 1.30 mg/dL [facility] ([place]) Glucose 126 70 - 199 mg/dL [facility] Comment: Interpretive Data Fasting [...] PM CDT 12/29/2024 11:15 PM CDT Jose Sullivna MD LAB BLOOD ORDERABLES Final Re sult [facility] ([place]) 1 [facility] Department [place] [address] * (ABNORMAL) Urinalysis reflex to microscopic and culture Urine (12/20/2024 5:19 PM CDT) Color, ur Yellow Yellow Comment:Testing performed by : [address] [address] Clarity, ur Clear Clear [facility] Comment:Testing performed by : [address] [address] Specific gravity, ur 1.032(H) 1.003 - 1.030 [facility] Comment:Testing performed by : [address] [address] pH, urine 6.5 [facility] Comment: Interpretive Data U rine pH is affected by diet, medications, systemic acid-base disturbances, and renal tubular function. pH may affect urinary stone formation. For example, urine pH below 6.0 may help reduce the tendency for calcium phosphate stones and pH greater than 6.0 may reduce the tendency for uric acid stone formation. Source: [facility] [place] Current Interpretive Data was last revised on 2017 Testing performed by: [address] [address] Protein, ur ql Trace(A) Negative [facility] Comment:Testing performed by : [address] [address] Glucose, ur ql Negative Negative [facility] Comment:Testing performed by : [address] [address] Ketones, ur Trace(A) Negative [facility] Comment:Testing performed by : [facility], [address] [place] [address], [place]., [address] Bilirubin, ur Negative Negative [facility] Comment:Testing performed by : [address], [place]., [address] Blood, ur 1+(A) Negative [facility] Comment:Testing performed by : [address], [place]., [address] Urobilinogen, ur 2.0(A) <2.0 mg/dL [facility] Comment:Testing performed by : [address], [place]., [address] Nitrite, ur Negative Negative [facility] Comment:Testing performed by : [address], [place]., [address] Leukocyte esterase, ur Negative Negative [facility] Comment:Testing performed by : [address], [place]., [address] UA reflex comment Reflex to microscopic UA will be performed. [facility] Comment:Testing performed by : [address], [place]., [address] Urine 12/20/2024 5:19 PM CDT 12/20/2024 5:25 PM CDT us Renetta Echols MD LAB MICROBIOLOGY - GENER AL ORDERABLES Final Result [facility] [address] [facility] Department of Laboratories [place], [place] [id number] * (ABNORMAL) Drugs of Abuse Screen, Urine [...] was last reviewed 2023. Testing performed by: [address], [place]., [address] Barbiturates, ur Not Detected CutOff 200ng/mL [facility] Comment: Interpretive Data - Barbiturates: Samples containing greater than 200 ng/mL secobarbital or other cross-reacting barbiturate compounds are reported as positive. False positive and false negative results are possible. Confirmatory testing required for definitive results. Current Interpretive Data was last reviewed 2023. Testing performed by: [address] [address] Benzodiazepines, ur Not Detected CutOff 100ng/mL [facility] Comment: Interpretive Data - Benzodiazepines: Samples containing greater than 100 ng/mL nordiazepam or other cross-reacting compounds are reported as positive. False positive and false negative results are possible. Confirmatory testing required for definitive results. Current Interpretive Data was last reviewed 2023. Testing performed by: [address] [address] Cannabinoids, ur Screen Positive, presumptive (A) CutOff 50 ng/mL [facility] Comment: Interpretive Data - Cannabinoids: Samples containing greater than 50 ng/mL delta-9 THC -COOH or other cross- reacting compounds are reported as positive. False positive and false negative results are possible. Confirmatory testing required for definitive results. Current Interpretive Data was last reviewed 2023. Testing performed by: [address] [address] Cocaine, ur Not Detected CutOff 150ng/mL [facility] Comment: Interpretive Data - Cocaine: Samples containing greater than 150 ng/mL benzoylecgonine or other cross- reacting compounds are reported as positive. False positive and false negative results are possible. Confirmatory testing required for definitive results. Current Interpretive Data was last reviewed 2023. Testing performed by: [address] [address] Fentanyl, Ur Not Detected Cutoff 1 ng/mL [facility] Comment: Interpretive Data - Fentanyl: Samples containing greater than 1 ng/mL fentanyl or other cross-reacting fentanyl compounds are reported as positive. False positive and false negative results are possible. Confirmatory testing required for definitive results. Current Interpretive Data was last reviewed 2023. Testing performed by: [address] [address] Methadone, ur Not Detected CutOff 300ng/mL [facility] Comment: Interpretive Data - Methadone: Samples containing greater than 300 ng/mL d,l-methadone or other cross-reacting compounds are reported as positive. False positive and false negative results are possible. Confirmatory testing required for definitive results. Current Interpretive Data was last reviewed 2023. Testing performed by: [address] [address] Opiates, ur Not Detected CutOff 300ng/mL [facility] Comment: Interpretive Data - Opiates: Samples containing greater than 300 ng/mL morphine or other cross-reacting compounds are reported as positive. False positive and false negative results are possible. Confirmatory testing required for definitive results. Current Interpretive Data was last reviewed 2023. Testing performed by: [address] [address] Oxycodone, ur Not Detected CutOff 100ng/mL [facility] Comment: Interpretive Data - Oxycodone: Samples containing greater than 100 ng/mL oxycodone or other cross-reacting compounds are reported as positive. False positive and false negative results are possible. Confirmatory testing required for definitive results. Current Interpretive Data was last reviewed 2023. Testing performed by: [address] [address] Phencyclidine, ur Not Detected CutOff 25 ng/mL [facility] Comment: Interpretive Data - Phencyclidine: Samples containing greater than 25 ng/mL phencyclidine or other cross-reacting compounds are reported as positive. False positive and false negative results are possible. Confirmatory testing required for definitive results. Current Interpretive Data was last reviewed 2023. Testing performed by: [address] [address] Urine Creatinine 390 mg/dL [facility] Comment: Interpretive Data Urine Creatinine: < 10 mg/dL is extremely dilute = or > 10 but < 20 mg/dL is dilute = or > 20 mg/dL is normal Current Interpretive Data was last revised on 2017. Testing performed by: [address] [address] Urine 12/20/2024 5:19 PM CDT 12/20/2024 5:25 PM CDT Narrative [facility] - 12/20/2024 5:57 PM CDT Drug of Abuse screening is performed by immunoassay for medical purposes only. This is not to be used for Pain Management purposes. Renetta Echols MD LAB URINE ORDERABLES Fin al Result Performing Organization Address [facility] de Phone Number [place] [phone] [facility] [place] [place] [address] * (ABNORMAL) Urinalysis, microscopic only (12/20/2024 5:19 PM CDT) WBC, ur 0-5 0 - 5 /HPF Comment:Testing performed by : [address] [address] RBC, ur 11-20(A) 0 - 2 /HPF [facility] Comment:Testing performed by : [address] [address] Epithelial cells, squamous, ur 6-10(A) 0 - 5 /HPF [facility] Comment:Testing performed by : [address] [address] Mucous, ur Present(A) [facility] Comment:Testing performed by : [address] [address] Sperm, ur Present(A) [facility] Comment:Testing performed by : [address] [address] Culture Reflex Comment Reflex conditions for urine culture (WBC >10) not met. [facility] Comment:Testing performed by : [address] [address] Urine 12/20/2024 5:19 PM CDT 12/20/2024 5:25 PM CDT Renetta Echols MD LAB URINE ORDERABLES Fin al Result Performing Organization Address [facility] Co de Phone Number [facility] [address] [facility] [place] [place] [address] * COVID-19 Coronavirus RNA Nasopharyngeal (12/20/2024 5:06 PM CDT) Pathologist [facility] COVID-19 RNA Negative Negative Comment:Testing performed by : [facility], [address] [place] [address], [place]., [address] Nasopharyngeal 12/20/2024 5: 06 PM CDT 12/20/2024 5:22 PM CDT Narrative [facility] - 12/20/2024 5:55 PM CDT Is the patient experiencing any symptoms consistent with COVID (eg. Fever, cough, shortness of breath)?->No What is the reason for testing?->Screening prior to Behavioral health admission Interpretive data Testing performed by [facility]. This test is performed using the [employer] Xpert Xpress CoV-2 plus assay. This is a real-time RT-PCR test intended for the qualitative detection of nucleic acid from the SARS-CoV-2. This assay has been cleared by the [place] Food and Drug administration. The performance characteristics have been verified by the [facility]. Results must be considered in the clinical context, and a negative result does not rule out infection. Interpretive data last revised 2024. Interpretive data Testing performed by [facility]. This test is performed using the [employer] Xpert Xpress CoV-2 plus assay. This is a real-time RT-PCR test intended for the qualitative detection of nucleic acid from the SARS-CoV-2. This assay has been cleared by the [place] Food and Drug administration. The performance characteristics have been verified by the [facility]. Results must be considered in the clinical context, and a negative result does not rule out infection. Interpretive data last revised 2024. us Renetta Echols MD LAB MICROBIOLOGY - GENER AL ORDERABLES Final Result [facility] [address] [facility] [place] [address] * eGFR (12/20/2024 5:06 PM CDT) Pathologist [facility] eGFR >90 >=60 mL/min/1. 73 m2 Comment: [...] was last reviewed 2021. Testing performed by: [address] [address] Blood 12/20/2024 5:06 PM CDT 12/20/2024 5:25 PM CDT us Renetta Echols MD LAB BLOOD ORDERABLES Fin al Result [facility] [address] [facility] [place] [address] * Differential, auto (12/20/2024 5:06 PM CDT) Neutrophil abs 3.48 1.50 - 6.50 K/cumm Comment:Testing performed by : [address] [address] Imm gran abs 0.02 0.00 - 0.10 K/cumm [facility] Comment:Testing performed by : [address] [address] Lymphocyte abs 1.90 0.80 - 3.30 K/cumm [facility] Comment:Testing performed by : [address] [address] Monocyte abs 0.60 0.20 - 0.80 K/cumm [facility] Comment:Testing performed by : [address] [address] Eosinophil abs 0.17 0.00 - 0.50 K/cumm [facility] Comment:Testing performed by : [address] [address] Basophil abs 0.03 0.00 - 0.10 K/cumm [facility] Comment:Testing performed by : [address] [address] Neutrophil pct 56.2 % [facility] Comment: Interpretive Data Percent cell count reference ranges are not reported, since discordance with absolute values may lead to misinterpretation of CBC data. Current Interpretive Data was last revised on 2017. Testing performed by: [address] [address] Imm gran pct 0.3 % [facility] Comment: Interpretive Data Percent cell count reference ranges are not reported, since discordance with absolute values may lead to misinterpretation of CBC data. Current Interpretive Data was last revised on 2017. Testing performed by: [address] [address] Lymphocyte pct 30.6 % [facility] Comment: Interpretive Data Percent cell count reference ranges are not reported, since discordance with absolute values may lead to misinterpretation of CBC data. Current Interpretive Data was last revised on 2017. Testing performed by: [address] [address] Monocyte pct 9.7 % [facility] Comment: Interpretive Data Percent cell count reference ranges are not reported, since discordance with absolute values may lead to misinterpretation of CBC data. Current Interpretive Data was last revised on 2017. Testing performed by: [address] [address] Eosinophil pct 2.7 % [facility] Comment: Interpretive Data Percent cell count reference ranges are not reported, since discordance with absolute values may lead to misinterpretation of CBC data. Current Interpretive Data was last revised on 2017. Testing performed by: [address] [address] Basophil pct 0.5 % [facility] Comment: Interpretive Data Percent cell count reference ranges are not reported, since discordance with absolute values may lead to misinterpretation of CBC data. Current Interpretive Data was last revised on 2017. Testing performed by: [address] [address] Blood 12/20/2024 5:06 PM CDT 12/20/2024 5:25 PM CDT Renetta Echols MD LAB BLOOD ORDERABLES Fin al Result Performing Organization Address [facility] de Phone Number [address] [address] * Thyroid Function [place] (12/20/2024 5:06 PM CDT) Pathologist [facility] TSH 0.32 0.30 - 4.20 mcIUnit/mL Comment:Testing performed by : [address] [address] Blood 12/20/2024 5:06 PM CDT 12/20/2024 5:25 PM CDT Renetta Echols MD LAB BLOOD ORDERABLES Fin al Result Performing Organization Address [facility] de Phone Number [address] [address] * CBC with auto differential (12/20/2024 5:06 PM CDT) Pathologist [facility] WBC 6.20 3.80 - 9.90 K/cumm Comment:Testing performed by : [address] [address] Hgb 13.0 13.0 - 17.5 g/dL [facility] MAURER Comment:Testing performed by : [address] [address] Hct 39.6 38.9 - 50.3 % [facility] MAURER Comment:Testing performed by : [address] [address] Plt 245 150 - 400 K/cumm PRISCILLA MAURER Comment:Testing performed by : [address] [address] MPV 9.7 9.1 - 12.3 fL [facility] Comment:Testing performed by : [address] [address] RBC 4.61 4.30 - 5.80 M/cumm [facility] Comment:Testing performed by : [address], [address] MCV 85.9 81.3 - 96.4 fL [facility] Comment:Testing performed by : [address] [address] MCH 28.2 27.1 - 33.3 pg [facility] Comment:Testing performed by : [address], [address] MCHC 32.8 32.3 - 35.7 g/dL [facility] Comment:Testing performed by : [address], [address] RDW CV 14.0 11.1 - 14.9 % [facility] Comment:Testing performed by : [address], [address] RDW SD 43.7 35.7 - 48.1 fL [facility] Comment:Testing performed by : [address], [address] NRBC abs 0.00 0.00 - 0.01 K/cumm [facility] Comment:Testing performed by : [address], [address] Blood Venous blood specimen / Unknown 12/20/2024 5:06 PM CDT 12/20/2024 5:25 PM CDT us Renetta Echols MD LAB BLOOD ORDERABLES Fin al Result [facility] [address] [facility] Department of Laboratories [place], [place] [id number] * Ethanol (12/20/2024 5:06 PM CDT) Ethanol <10 <=10 mg/dL Comment: Interpretive Data Legal limit of intoxication > or = 80 mg/dL Levels > or = 400 mg/dL are potentially TOXIC. Current interpretive data was last revised on 2018. Testing performed by: [address] [address] Blood 12/20/2024 5:06 PM CDT 12/20/2024 5:25 PM CDT Renetta Echols MD LAB BLOOD ORDERABLES Fin al Result Performing Organization Address [facility] de Phone Number [address] [place] [address] * Acetaminophen level (12/20/2024 5:06 PM CDT) [...] after ingestion Consult toxicology or poison control ([phone]) for unknown ingestion time. Current interpretive data was last revised 2023. Testing performed by: [address] [address] Blood 12/20/2024 5:06 PM CDT 12/20/2024 5:25 PM CDT Renetta Echols MD LAB BLOOD ORDERABLES Fin al Result Performing Organization Address [facility] de Phone Number [address] [place] [address] * Salicylate level (12/20/2024 5:06 PM CDT) Salicylate <1.0 <=1.0 mg/dL Comment: Interpretive Data Toxic: 30 mg/dL or greater. Current interpretive data was last revised 2023. Testing performed by: [address] [address] Blood 12/20/2024 5:06 PM CDT 12/20/2024 5:25 PM CDT us Renetta Echols MD LAB BLOOD ORDERABLES Fin al Result [facility] [address] [facility] Department [place] [address] * Comprehensive metabolic panel (12/20/2024 5:06 PM CDT) Sodium 142 135 - 145 mmol/L Comment:Testing performed by : [address] [address] Potassium, pl 4.1 3.3 - 4.9 mmol/L [facility] Comment:Testing performed by : [address] [address] Chloride 106 97 - 110 mmol/L [facility] Comment:Testing performed by : [address] [address] CO2 24 22 - 32 mmol/L [facility] Comment:Testing performed by : [address] [address] Anion gap 12 2 - 15 mmol/L [facility] Comment:Testing performed by : [address] [address] BUN 9 6 - 25 mg/dL [facility] Comment:Testing performed by : [address] [address] Creatinine 1.10 0.80 - 1.30 mg/dL [facility] Comment:Testing performed by : [address] [address] Glucose 116 70 - 199 mg/dL PRISCILLA [...] was last revised 2022. Testing performed by: [address] [address] Calcium 9.0 8.5 - 10.3 mg/dL [facility] Comment:Testing performed by : [address] [address] Bilirubin, total 0.2 0.1 - 1.2 mg/dL [facility] Comment:Testing performed by : [address] [address] Protein, pl 7.1 6.5 - 8.5 g/dL [facility] Comment:Testing performed by : [address] [address] Albumin 4.1 3.5 - 5.0 g/dL [facility] Comment:Testing performed by : [address] [address] Alk phos 64 40 - 130 Units/L [facility] Comment:Testing performed by : [address] [address] ALT 15 7 - 55 Units/L [facility] Comment:Testing performed by : [address] [address] AST 20 10 - 50 Units/L [facility] Comment:Testing performed by : [address] [address] Blood 12/20/2024 5:06 PM CDT 12/20/2024 5:25 PM CDT us Renetta Echols MD LAB BLOOD ORDERABLES Fin al Result [facility] [address] [facility] [place] [address] from Last 3 Months Insurance Advance Directives For more information, please contact: [phone] * Full Code (Latest Code Status on [...] 2:38 PM 10/01/2024 4:02 PM Care Teams Dermatologist Relationship Specialty Start Date End Date No, Physician PCP - General 11/30/20
--- OUTSIDE RECORDS SUMMARY | 2025-02-09 23:11 | XMS_ITS | Encounter Summary ---
Author Organization [facility] Address 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 AVG GLUCOSE, A1C 111 mg/dL 11/05/2024 9:48 AM CDT [facility] Blood 11/05/2024 6:48 AM CDT 11/05/2024 8:45 AM CDT Narrative [facility] - [facility] - 11/05/2024 9:48 AM CDT HGB A1C INTERPRETATION NORMAL: <5.7% PRE-DIABETES: 5.7 - 6.4% DIABETES: 6.5% OR GREATER Ventura Brian MD CHEMISTRY ORDERABLES Final Res ult Performing Organization Address City/[facility]/ZIP Co de Phone Number [facility] [id number] [address] [place] [address] [phone] * GLUCOSE LEVEL (11/05/2024 6:48 AM CDT) GLUCOSE 91 70 - 115 mg/dL 11/05/2024 9:58 AM CDT [facility] Blood Collection / Unknown 11/05/2024 6:48 AM CDT 11/05/2024 8:45 AM CDT Ventura Brian MD CHEMISTRY ORDERABLES Final Res ult Performing Organization Address City/[facility]/ZIP Co de Phone Number [facility] [id number] [address] [place] [phone] * LIPID PANEL (11/05/2024 6:48 AM CDT) CHOLESTEROL 136 <200 mg/dL 11/05/2024 9:58 AM CDT [facility] TRIGLYCERIDE 69 <150 mg/dL 11/05/2024 9:58 AM CDT [facility] HDL 50 40 - 59 mg/dL 11/05/2024 9:58 AM CDT [facility] LDL CALCULATED 72 <100 mg/dL 11/05/2024 9:58 AM CDT [facility] NON-HDL CHOLESTEROL 86 <130 mg/dL 11/05/2024 9:58 AM CDT [facility] Blood Collection / Unknown 11/05/2024 6:48 AM CDT 11/05/2024 8:45 AM CDT Narrative [facility] - 11/05/2024 9:58 AM CDT TOTAL [...] ORDERABLES Final Res ult [facility] [id number] [address] [place] [address] [phone] documented in this encounter Visit Diagnoses Not on filedocumented in this encounter
--- OUTSIDE RECORDS SUMMARY | 2025-02-09 23:12 | XMS_ITS | Clinical Summary ---
Author Organization [facility] Address [address] [place] [address] Care Team Providers Care Addictions Counselor Assistant Name Role Phone None, Physician Primary Care Provider Unavailabl e Source Comments [facility],non-owned Affiliates and Associated Physician Practices is amultiple site organization consisting of ambulatory clinics and hospital sitesin [place], [place], [place] and [place]. This disclosure is being madepursuant to the Care Everywhere program and may not contain all information available regarding this patient. Last updated 18.[facility] Allergies No known active allergies Medications * [...] (06/02/2022): Added automatically from request for surgery [id number] ST elevation myocardial infa rction (STEMI), unspecified [...] housing, medical care, and heating? Hard 08/07/2023 [facility] [place] [facility] - Occupational [...] or slept in a jail (including now)? 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
--- OUTSIDE RECORDS SUMMARY | 2025-02-09 23:12 | XMS_ITS | Clinical Summary ---
Author Organization [facility] Address [address] [place] [address] Care Team Providers Care Video Manager Name Role Phone None, Provider MD Primary [...] CDT - 02/01/2025 7:[address] [facility] Emergency [place] [address] Marleny Nathan MD Back Pain Discharge Disposition: Home or Self Care (Routine Discharge) 02/01/2025 Travel 01/23/2025 5:58 AM CDT - 01/23/2025 2:[address] [facility] Emergency [place] [address] Tara Curran MD Suicidal Ideation; Chest Pain Discharge Disposition: [facility] 01/23/2025 Travel 01/20/2025 1:32 AM CDT - 01/20/2025 2:[address] [facility] Emergency [place] [address] Breanne Hubbard PA Shortness Of Breath Discharge Disposition: Home or Self Care (Routine Discharge) 01/20/2025 Travel 01/14/2025 5:34 PM CDT - 01/14/2025 8:[address] [facility] Emergency [place] [address] Agustin Diaz MD Chest Pain Discharge Disposition: Home or Self Care (Routine Discharge) 01/14/2025 12:57 AM CDT - 01/14/2025 1:[address] [facility] [place] [address] Carmelo Mcnally MD Hand Injury Discharge Disposition: Home or Self Care (Routine Discharge) 01/14/2025 Travel 01/10/2025 12:24 AM CDT - 01/10/2025 3:[address] [facility] Emergency [place] [address] Cirilo Luke MD,PHD Diarrhea Discharge Disposition: Home or Self Care (Routine Discharge) 01/10/2025 Travel 01/04/2025 10:13 AM CDT - 01/04/2025 11:[address] [facility] Emergency [place] [address] Samuel Siddiqi, KARINA Breathing Problem Discharge Disposition: Home or Self Care (Routine Discharge) 01/04/2025 Travel 11/10/2024 12:49 AM CDT - 11/10/2024 1:[address] 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 Hand Pain (Right hand) Discharge Disposition: Home or Self Care (Routine Discharge) 11/10/2024 Travel from Last 3 Months Social History Tobacco Use Types Packs/Day Years Used Date Smoking Tobacco: Former Cigarettes Cigars Smokeless Tobacco: Never Tobacco Cessation:Counseling Given: Not Answered Alcohol Use Standard Drinks/Week Comments Not Currently 0 (1 standard drink = 0.6 oz pur e alcohol) socially [facility] Utilities Answer Date Recorded In the past 12 months has [facility] [employer], gas, oil, or water [employer] threatened to shut off services in your [...] How often do you attend chur or taoist services? 1 to 4 times per year 06/17/2023 Do you belong to any clubs o r organizations such as worship groups, unions, fraternal or athletic groups, or [...] Recorded Patient Health Questionnaire-2 Score 0 06/17/2023 [facility] of Occupat ional Health - Occupational Stress [...] in a group home (including now)? No 06/17/2023 Housing Stability [...] Sex Assigned at Male 09/12/2024 10:51 PM YARDER Legal Sex Male 4:43 PM CDT Gender [...] discharge from hospital Lifestyle No 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, DEPUTY DIRECTOR OF FINANCE Procedures Procedure Name Priority Date/Time Associated Diagnosis [...] 2:29 AM Narrative 02/01/2025 2:[address] [facility] [address] [place], [place] [address] EXAMINATION: XR LUMB SPINE 3V, XR THOR [...] Procedure Note Jeremiah Sam MD - 02/01/[address] [address] EXAMINATION: XR LUMB SPINE 3V, XR THOR [...] 2:29 AM Narrative 02/01/2025 2:32 AM CDT [address] [address] EXAMINATION: XR LUMB SPINE 3V, XR THOR [...] Procedure Note Jeremiah Sam MD - 02/01/[address] [address] EXAMINATION: XR LUMB SPINE 3V, XR THOR [...] 42 <79 ng/L 01/23/2025 12:04 PM CDT [facility] Comment: HIGH DOSES OF BIOTIN, TROPONIN-SPECIFIC AUTOANTIBODIES, AND ANTIBODY THERAPY CONTAINING HAMA MAY INTERFERE WITH THIS TEST RESULT. CORRELATION TO CLINICAL HISTORY AND PRESENTATION RECOMMENDED. 01/23/2025 11:3 0 AM CDT Tara Curran MD LABORATORY Final Result [facility] [address] [place] [address], [place] [phone] * XR CHEST PORTABLE (01/23/2025 7:36 AM CDT) Only the most recent of3 resultswithin the time period is included. Anatomical Region Laterality Modality Chest Radiographic Macarena ging 01/23/2025 7:38 AM CDT Impressions 01/23/2025 7:39 AM CDT IMPRESSION: No acute findings Ordered By: TARA CURRAN Interpreted By: Jerrod Alejandre MD, 01/23/2025 7:38 AM Narrative 01/23/2025 7:[address] [facility] [address] [place], [place] [address] SINGLE VIEW OF THE CHEST Clinical history: Chest pain Comparison: January 20, 2025 A single view of the chest demonstrates the cardiac silhouette to be normal in size and appearance. The pulmonary vessels are normally distributed. The Lungs are clear. No consolidations or effusions are seen. Procedure Note Jerrod Alejandre MD - 01/23/2025 [facility] [address] [place], [place] [address] SINGLE VIEW OF THE CHEST Clinical history: [...] AMPHETAMINE (U) NEGATIVE NEGATIVE 7:11 AM CDT [facility] BARBITURATES SCREEN (U) NEGATIVE NEGATIVE 01/23/2025 7:11 AM CDT [facility] BENZODIAZEPINES SCREEN (U) NEGATIVE NEGATIVE 01/23/2025 7:11 AM CDT [facility] CANNABINOIDS SCREEN (U) POSITIVE(A) NEGATIVE 01/23/2025 7:11 AM CDT [facility] COCAINE METABOLITES (U) NEGATIVE NEGATIVE 01/23/2025 7:11 AM CDT [facility] METHADONE (U) NEGATIVE NEGATIVE 01/23/2025 7:11 AM CDT [facility] OPIATE SCREEN (U) NEGATIVE NEGATIVE 025 7:11 AM CDT [facility] PHENCYCLIDINE PCP (U) NEGATIVE NEGATIVE 01/23/2025 7:11 AM CDT [facility] Comment: NOTE: RESULTS OF THIS DRUG SCREEN SHOULD BE USED FOR MEDICAL PURPOSES ONLY AND NOT FOR LEGAL OR EMPLOYMENT PURPOSES. POSITIVE RESULTS ARE NOT CONFIRMED. MEDICATIONS CONTAINING EPHEDRINE MAY CAUSE FALSE POSITIVE AMPHETAMINE CALL [phone], LAB, TO REQUEST CONFIRMATION TESTING. IF CREATININE IS <40 mg/dL. RECOLLECTION IS SUGGESTED. AMPHETAMINE- 500 NG/ML BARBITURATE- 200 NG/ML BENZODIAZEPINES- 200 NG/ML THC- 50 NG/ML COCAINE- 150 NG/ML METHADONE- 300 NG/ML OPIATE- 300 MG/ML PCP- 25 NG/ML CREATININE (U) 381.0(H) 39 - 259 MG/DL 01/23/2025 7:11 AM CDT [facility] URINE SPECIMEN / Unknown 01/23/2025 6:38 AM CDT us Tara Curran MD URINE ORDERABLES Final Resul t [facility] [address] [place] [address], [place] [phone] * (ABNORMAL) URINALYSIS, AUTO, COMPLETE (01/23/2025 6:38 AM CDT) SPECIMEN TYPE URINE CLEAN CATCH 01/23/2025 6:37 AM CDT [facility] COLOR (U) YELLOW 01/23/2025 6:56 AM CDT [facility] TRANSPARENCY CLEAR 01/23/2025 6:56 AM CDT [facility] SPECIFIC GRAVITY (U) 1.023 1.001 - 1.030 01/23/2025 6:56 AM CDT [facility] U PH 6.0 5.0 - 9.0 01/23/2025 6:56 AM CDT [facility] LEUKOCYTES (U) NEGATIVE NEGATIVE 01/23/2025 6:56 AM CDT [facility] NITRITES NEGATIVE NEGATIVE 01/23/2025 6:56 AM CDT [facility] PROTEIN RANDOM (U) 10 <30 MG/DL 01/23/2025 6:56 AM CDT [facility] GLUCOSE (U) NORMAL NORMAL MG/DL 01/23/2025 6:56 AM CDT [facility] KETONES MG/DL (U) NEGATIVE NEGATIVE MG/DL 01/23/2025 6:56 AM CDT [facility] UROBILINOGEN 3.0(A) NORMAL MG/DL 01/23/2025 6:56 AM CDT [facility] BILIRUBIN (U) NEGATIVE NEGATIVE MG/DL 01/23/2025 6:56 AM CDT [facility] BLOOD (U) TRACE(A) NEGATIVE 01/23/2025 6:56 AM CDT [facility] MUCUS MANY /LPF 01/23/2025 6:56 AM CDT [facility] WBC/HPF 4 <6 /HPF 01/23/2025 6:56 AM CDT [facility] RBC/HPF 7(H) <6 /HPF 01/23/2025 6:56 AM CDT [facility] URINE SPECIMEN OBTAINED BY CLEAN CATCH PROCEDURE / Unknown 01/23/2025 6:38 AM CDT us Tara Curran MD URINE ORDERABLES Final Resul t [facility] [address] [place] [address], [place] [phone] * (ABNORMAL) COMPREHENSIVE METABOLIC PANEL (01/23/2025 6:30 AM CDT) Only the most recent of3 resultswithin the time period is included. Pathologist [facility] GLUCOSE 103(H) 70 - 99 MG/DL 01/23/2025 7:21 AM CDT [facility] BUN 8 7 - 18 MG/DL 01/23/2025 7:21 AM CDT [facility] CREATININE S/P/B 1.28 0.7 - 1.3 MG/DL 01/23/2025 7:21 AM CDT [facility] SODIUM S/P/B 140 136 - 145 MMOL/L 01/23/2025 7:21 AM CDT [facility] POTASSIUM S/P/B 3.8 3.5 - 5.1 MMOL/L 01/23/2025 7:21 AM T [facility] CHLORIDE S/P/B 106 97 - 115 MMOL/L 01/23/2025 7:21 AM T [facility] CO2 26.2 21 - 32 MMOL/L 01/23/2025 7:21 AM T [facility] CALCIUM S/P/B 9.6 8.5 - 10.1 MG/DL 01/23/2025 7:21 AM T [facility] BILIRUBIN TOTAL S/P/B 0.8 0.2 - 1.2 MG/DL 01/23/2025 7:21 AM T [facility] Comment: THIS ASSAY IS NOT RECOMMENDED FOR PATIENTS UNDERGOING TREATMENT WITH ELTROMBOPAG DUE TO THE POTENTIAL FOR FALSELY ELEVATED RESULTS. TOTAL PROTEIN S/P/B 7.8 6.4 - 8.2 G/DL 01/23/2025 7:21 AM CDT [facility] ALBUMIN S/P/B 3.9 3.4 - 5.0 G/DL 01/23/2025 7:21 AM T [facility] AST 23 15 - 37 U/L 01/23/2025 7:21 AM CDT [facility] ALT 50 16 - 60 U/L 01/23/2025 7:21 AM CDT [facility] ALKALINE PHOSPHATASE S/P/B 66 50 - 136 U/L 01/23/2025 7:21 AM CDT [facility] ANION GAP 7.8 2 - 10 MMOL/L 01/23/2025 7:21 AM CDT [facility] BUN CREATININE RATIO 6.2 6 - 26 01/23/2025 7:21 AM CDT [facility] A/G RATIO 1.0 1.0 - 2.0 RATIO 01/23/2025 7:21 AM CDT [facility] GFR ESTIMATE 76(L) >90 ML/MIN/1.7 3 M2 01/23/2025 7:21 AM CDT [facility] Comment: NOTE: eGFR is not [...] us Tara Curran MD LABORATORY Final Result [facility] [address] [place] [address], [place] [phone] * CBC W/DIFF AUTOMATED (01/23/2025 6:30 AM CDT) Only the most recent of3 resultswithin the time period is included. WBC 5.45 4.5 - 11.0 x10'3/uL 01/23/2025 6:55 AM CDT [facility] RBC 4.99 4.70 - 6.10 x10'6/uL 01/23/2025 6:55 AM CDT [facility] HGB 14.4 14.0 - 18.0 G/DL 01/23/2025 6:55 AM CDT [facility] HCT 44.2 43.0 - 54.0 % 01/23/2025 6:55 AM CDT [facility] MCV 88.6 80.0 - 94.0 FL 01/23/2025 6:55 AM CDT [facility] MCH 28.9 27.0 - 31.0 PG 01/23/2025 6:55 AM CDT [facility] MCHC 32.6 32.0 - 36.0 G/DL 01/23/2025 6:55 AM CDT [facility] RDW 14.0 11.5 - 14.5 % 01/23/2025 6:55 AM CDT [facility] PLT 239 130 - 400 x10'3/uL 01/23/2025 6:55 AM CDT [facility] MPV 9.9 9.3 - 12.2 FL 01/23/2025 6:55 AM CDT [facility] DIFFERENTIAL TYPE AUTOMATED DIFFERENTIAL 01/23/2025 6:55 AM CDT [facility] NEUTROPHILS % 50.0 % 01/23/2025 6:55 AM CDT [facility] LYMPHOCYTES % 34.7 % 01/23/2025 6:55 AM CDT [facility] MONOCYTES % 12.1 % 01/23/2025 6:55 AM CDT [facility] EOSINOPHILS 2.6 % 01/23/2025 6:55 AM CDT [facility] BASOPHILS 0.4 % 01/23/2025 6:55 AM CDT [facility] IMMATURE GRANS % 0.2 % 01/24/20 6:55 AM CDT [facility] ABS. NEUTROPHILS 2.73 1.80 - 7.70 x10'3/uL 01/23/2025 6:55 AM CDT [facility] ABS. LYMPHOCYTES 1.89 1.00 - 4.80 x10'3/uL 01/23/2025 6:55 AM CDT [facility] ABS. MONOCYTES 0.66 0.30 - 0.82 x10'3/uL 01/23/2025 6:55 AM CDT [facility] ABS. EOSINOPHILS 0.14 0.04 - 0.54 x10'3/uL 01/23/2025 6:55 AM CDT [facility] ABS. BASOPHILS 0.02 0.01 - 0.08 x10'3/uL 01/23/2025 6:55 AM CDT [facility] ABS. IMMATURE GRANULOCYTES 0.01 0.00 - 0.49 x10'3/uL 01/23/2025 6:55 AM CDT [facility] 01/23/2025 6:30 AM CDT Tara Curran MD LABORATORY Final Result [facility] [address] [place] [id number], [place] [phone] * (ABNORMAL) THYROID STIM HORMONE, TSH (01/23/2025 6:30 AM CDT) TSH 0.332(L) 0.358 - 3.74 uIU/ML 01/23/2025 7:21 AM CDT [facility] Comment: HIGH DOSES OF BIOTIN MAY INTERFERE WITH THIS TEST RESULT. CORRELATION TO CLINICAL HISTORY AND PRESENTATION RECOMMENDED. 01/23/2025 6:30 AM CDT Tara Curran MD LABORATORY Final Result Performing Organization Address [facility] Co de Phone Number [facility] [address] [place] [address], * (ABNORMAL) SALICYLATE (01/23/2025 6:30 AM CDT) SALICYLATES <1.7(L) 2.8 - 20.0 MG/DL 01/23/2025 7:13 AM CDT [facility] Comment: THERAPEUTIC: 2.8-20.0 Toxic Level: >=30 01/23/2025 6:30 AM CDT Tara Curran MD LABORATORY Final Result Performing Organization Address [facility] Co de Phone Number [facility] [address] [place] [address], * ETHANOL (01/23/2025 6:30 AM CDT) ALCOHOL S/P/B <0.003 <0.003 G/DL 01/23/2025 7:21 AM CDT [facility] 01/23/2025 6:30 AM CDT Tara Curran MD LABORATORY Final Result Performing Organization Address [facility] Co de Phone Number [facility] [address] [place] [address], * (ABNORMAL) ACETAMINOPHEN (01/23/2025 6:30 AM CDT) ACETAMINOPHEN S/P/B <2.0(L) 10.0 - 30.0 MCG/ML 01/23/2025 7:21 AM CDT [facility] Comment: THERAPEUTIC: 10-30 TOXIC: >200 01/23/2025 6:30 AM CDT Tara Curran MD LABORATORY Final Result [facility] [address] [place] [address], * RESPIRATORY PCR PANEL 2 (01/23/2025 6:03 AM CDT) Pathologist [facility] ADENOVIRUS PCR (RESP) NOT DETECTED NOT DETECTED 01/23/2025 7:47 AM CDT [facility] CORONAVIRUS 229E PCR (RESP) NOT DETECTED NOT DETECTED 01/23/2025 7:47 AM CDT [facility] CORONAVIRUS HKU1 PCR (RESP) NOT DETECTED NOT DETECTED 01/23/2025 7:47 AM CDT [facility] CORONAVIRUS NL63 PCR (RESP) NOT DETECTED NOT DETECTED 01/23/2025 7:47 AM CDT [facility] CORONAVIRUS OC43 PCR (RESP) NOT DETECTED NOT DETECTED 01/23/2025 7:47 AM CDT [facility] METAPNEUMOVIRUS PCR (RESP) NOT DETECTED NOT DETECTED 01/23/2025 7:47 AM CDT [facility] RHINOVIRUS/ENTEROV IRUS PCR (RESP) NOT DETECTED NOT DETECTED 01/23/2025 7:47 AM CDT [facility] INFLUENZA A PCR (RESP) NOT DETECTED NOT DETECTED 01/23/2025 7:47 AM CDT [facility] INFLUENZA B PCR (RESP) NOT DETECTED NOT DETECTED 01/23/2025 7:47 AM CDT [facility] PARAINFLUENZA 1 PCR (RESP) NOT DETECTED NOT DETECTED 01/23/2025 7:47 AM CDT [facility] PARAINFLUENZA 2 PCR (RESP) NOT DETECTED NOT DETECTED 01/23/2025 7:47 AM CDT [facility] PARAINFLUENZA 3 PCR (RESP) NOT DETECTED NOT DETECTED 01/23/2025 7:47 AM CDT [facility] PARAINFLUENZA 4 PCR (RESP) NOT DETECTED NOT DETECTED 01/23/2025 7:47 AM CDT [facility] RSV PCR (RESP) NOT DETECTED NOT DETECTED 01/23/2025 7:47 AM CDT [facility] B PARAPERTUSIS PCR (RESP) NOT DETECTED NOT DETECTED 01/23/2025 7:47 AM CDT [facility] BORDETELLA PERTUSSIS PCR (RESP) NOT DETECTED NOT DETECTED 01/23/2025 7:47 AM CDT [facility] CHLAMYDOPHILA PNEUMONIAE PCR (RESP) NOT DETECTED NOT DETECTED 01/23/2025 7:47 AM CDT [facility] MYCOPLASMA PNEUMONIAE PCR (RESP) NOT DETECTED NOT DETECTED 01/23/2025 7:47 AM CDT [facility] CORONAVIRUS SARS COV 2 PCR (RESP) NOT DETECTED NOT DETECTED 01/23/2025 7:47 AM CDT [facility] NASOPHARYNGEAL SWAB / Unknown 01/23/2025 6:03 AM CDT us Tara Curran MD MICROBIOLOGY - GENERAL ORDER DIEGO Final Result [facility] [address] [place] [address], [place] [phone] * ECG 12 lead (01/23/2025 6:01 AM CDT) Only the most recent of3 resultswithin the time period is included. 01/23/2025 6:01 AM CDT Narrative [facility] ([facility] - 01/26/2025 12:[address] 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 COMPARISON: Right hand x-rays 11/10/2024. FINDINGS: No acute fracture or dislocation. No radiopaque foreign body. Mild soft tissue swelling is seen over the dorsal as above approximately the right third metacarpophalangeal joint.. Procedure Note Lianne Lorenz MD - 01/14/2025 [place] [address] EXAMINATION: Right Hand, 3 Views INDICATION: Punched [...] 2:20 AM Narrative 01/10/2025 2:[address] [address] EXAMINATION: CT Abdomen and Pelvis with intravenous [...] Procedure Note Lianne Lorenz MD - 01/10/[address] [address] EXAMINATION: CT Abdomen and Pelvis with intravenous [...] further evaluation. Referred By: Interpreted By: Lianne oLrenz MD, 01/10/2025 2:20 AM Cirilo Luke MD,PHD CT Final Resu lt * MAGNESIUM (01/10/2025 12:35 AM CDT) MAGNESIUM 1.8 1.8 - 2.4 MG/DL 01/10/2025 1:34 AM CDT [facility] 01/10/2025 12:3 5 AM CDT Cirilo Luke MD,PHD LABORATORY Final Resu lt [facility] [address] [place] [address], [place] [phone] from Last 3 Months Insurance [employer] Advance Directives * Full Code (Latest Code Status on File) Date Activated Date Inactivated Comments 06/16/2023 10:32 PM 06/18/2023 1:59 PM Care Teams Video Manager Relationship Specialty Start Date End Date None, Provider, MD PCP - General UNKNOWN PHYSICIAN SPECIALTY 06/16/23
--- OUTSIDE RECORDS SUMMARY | 2025-02-09 23:12 | XMS_ITS | Clinical Summary ---
Author Organization [facility] Address [address] [place] [address] Phone Care Team Providers Care Marketing And Communications Officer Name Role Phone Provider, None Primary Care [...] 01/05/2025 11:26 PM CDT Emergency [facility] [address] [place] [address] Shaka Salguero MD Chronic pericarditis, [...] Kev Canela M.D. MJ: [email or web address] Report ID: [id number] Reading Location: [id number] Procedure Note Kev Canela MD - 01/05/2025 [...] Kev Canela M.D. MJ: [id number] Report ID: [id number] Reading Location: [place] [address] IMPRESSION: No acute cardiopulmonary abnormality. Sahka Salguero MD IMG DIAGNOSTIC ORDERABLES Final Result * TROPONIN I, HIGH SENSITIVITY (HSTRP) (01/05/2025 9:10 PM CDT) [facility] TROPONIN I, HIGH SENSITIVITY- MCRAE 11 <=35 ng/L 01/05/2025 9:50 PM CDT [facility] Comment: High-sensitivity troponin I results are reported in ng/L making the result appear to be 1,000 times higher than the contemporary troponin I value which is reported in ng/ml. Results from [facility]. Blood Venipuncture / Unknown 01/05/2025 9:10 PM CDT 01/05/2025 9:25 PM CDT Shaka Salguero MD CHEMISTRY ORDERABLES Final Result [facility] [address] [place] [address] * (ABNORMAL) CBC with Auto Differential (01/05/2025 9:10 PM CDT) [facility] WBC 8.19 4.00 - 12.00 10(3)/mcL 01/05/2025 9:28 PM CDT [facility] RBC 4.79 4.40 - 5.80 10(6)/mcL 01/05/2025 9:28 PM CDT [facility] HEMOGLOBIN (HGB) 13.7 13.0 - 16.5 g/dL 01/05/2025 9:28 PM CDT [facility] HEMATOCRIT (HCT) 42.4 38.0 - 50.0 % 01/05/2025 9:28 PM CDT [facility] MCV 88.5 82.0 - 96.0 fL 01/05/2025 9:28 PM CDT [facility] MCH 28.6 26.0 - 32.0 pg 01/05/2025 9:28 PM CDT [facility] MCHC 32.3 31.0 - 36.0 g/dL 01/05/2025 9:28 PM CDT [facility] PLATELET COUNT 259 140 - 440 10(3)/mcL 01/05/2025 9:28 PM CDT [facility] RDW 13.3 11.8 - 15.5 % 01/05/2025 9:28 PM CDT [facility] MPV 9.5 8.0 - 12.6 fL 01/05/2025 9:28 PM CDT [facility] NEUTROPHILS 53.1 40.0 - 68.0 % 01/05/2025 9:28 PM CDT [facility] LYMPHOCYTES 33.0 19.0 - 49.0 % 01/05/2025 9:28 PM CDT [facility] MONOCYTES 11.5 3.0 - 13.0 % 01/05/2025 9:28 PM CDT [facility] EOSINOPHILS 2.0 0.0 - 8.0 % 01/05/2025 9:28 PM CDT [facility] BASOPHILS 0.4 0.0 - 1.0 % 01/05/2025 9:28 PM CDT [facility] ABSOLUTE NEUTROPHILS 4.36 1.40 - 5.30 10(3)/mcL 01/05/2025 9:28 PM CDT [facility] ABSOLUTE LYMPHOCYTES 2.70 0.90 - 3.30 10(3)/mcL 01/05/2025 9:28 PM CDT [facility] ABSOLUTE MONOCYTES 0.94(H) 0.10 - 0.90 10(3)/[facility] 01/05/2025 9:28 PM CDT [facility] ABSOLUTE EOSINOPHIL 0.16 0.00 - 0.50 10(3)/mcL 01/05/2025 9:28 PM CDT [facility] ABSOLUTE BASOPHILS 0.03 0.00 - 0.10 10(3)/[facility] 01/05/2025 9:28 PM CDT [facility] NRBC PER 100 WBC 0 01/06/20 9:28 PM CDT [facility] Blood Venipuncture / Unknown 01/05/2025 9:10 PM CDT 01/05/2025 9:25 PM CDT us Shaka Salguero MD HEMATOLOGY ORDERABLES Vickie arreola Result [facility] [address] [place] [address] * (ABNORMAL) CMP (01/05/2025 9:10 PM CDT) SODIUM 140 136 - 145 mmol/L 01/05/2025 9:48 PM CDT [facility] POTASSIUM 4.0 3.5 - 5.1 mmol/L 01/05/2025 9:48 PM CDT [facility] CHLORIDE 107 98 - 107 mmol/L 01/05/2025 9:48 PM CDT [facility] CO2, VENOUS 24 22 - 30 mmol/L 01/05/2025 9:48 PM CDT [facility] ANION GAP 13.0 <18.0 mmol/L 01/05/2025 9:48 PM CDT [facility] GLUCOSE 95 70 - 99 mg/dL 01/05/2025 9:48 PM CDT [facility] BUN 12 9 - 21 mg/dL 01/05/2025 9:48 PM CDT [facility] CREATININE, BLOOD 1.33(H) 0.70 - 1.30 mg/dL 01/05/2025 9:48 PM CDT [facility] BUN/CREATININE RATIO 9(L) 12 - 20 ratio 01/05/2025 9:48 PM CDT [facility] TOTAL PROTEIN 7.9 6.0 - 8.0 g/dL 01/05/2025 9:48 PM CDT [facility] ALBUMIN 4.5 3.5 - 5.0 g/dL 01/05/2025 9:48 PM CDT [facility] A/G RATIO 1.3 1.0 - 2.2 01/05/2025 9:48 PM CDT [facility] CALCIUM 9.1 8.7 - 10.5 mg/dL 01/05/2025 9:48 PM CDT [facility] T BILI 0.2 0.2 - 1.2 mg/dL 01/05/2025 9:48 PM CDT [facility] SGOT (AST) 35 <43 U/L 01/05/2025 9:48 PM [facility] SGPT (ALT) 41 <56 U/L 01/05/2025 9:48 PM CDT [facility] ALKALINE PHOSPHATASE 62 40 - 150 U/L 01/05/2025 9:48 PM CDT [facility] GFR, ESTIMATED >60 >=60 01/05/2025 9:48 PM T [facility] Comment: Creatinine Clearance is the preferred criteria for selecting drug dose adjustments in renally impaired patients. The GFR is provided as additional pertinent clinical information. GFR is reported in mL/min/1.73 sq m. Calculation based on the Chronic Kidney Disease Epidemiology Collaboration (CKD- EPI) equation refit without adjustment for race. GFR, EST. >60 >=60 025 9:48 PM CDT [facility] GFR, EST. NONAFRICAN >60 >=60 01/05/2025 9:48 PM CDT [facility] Blood Venipuncture / Unknown 01/05/2025 9:10 PM CDT 01/05/2025 9:25 PM CDT Shaka Salgureo MD CHEMISTRY ORDERABLES Final Result Performing Organization Address City/[facility]/ZIP Co de Phone Number [facility] [address] [facility] [place] [address] * EKG 12 LEAD (01/05/2025 8:51 PM CDT) Ventricular Rate 73 BPM EXTERNAL EKG Atrial Rate 73 BPM EXTERNAL EKG P-R Interval 164 ms EXTERNAL EKG QRS Duration 110 ms EXTERNAL EKG Q-T Duration 356 ms EXTERNAL EKG QTC CALCULATION 392 ms EXTERNAL EKG P Daisy 42 degrees EXTERNAL EKG R Daisy 81 degrees EXTERNAL EKG T Daisy 50 degrees EXTERNAL EKG 01/05/2025 8:51 PM CDT Impressions EXTERNAL EKG - 01/08/2025 9:18 AM CDT Normal sinus rhythm ST elevation, consider early repolarization, pericarditis, or injury Abnormal ECG When compared with ECG of 18-AUG-2023 23:06, No significant change was found ~ Confirmed by Jermaine Dimas ([id number]) on 01/08/2025 9:18:19 AM Narrative Procedure Note Jermaine Dimas MD - 01/08/2025 IMPRESSION: Normal sinus rhythm ST elevation, consider early repolarization, pericarditis, or injury Abnormal ECG When compared with ECG of 18-AUG-2023 23:06, No significant change was found ~ Confirmed by Jermaine Dimas ([id number]) on 01/08/2025 9:18:19 AM Shaka Salguero MD IMG ECG ORDERABLES Final R esult EXTERNAL EKG * EKG SCAN (01/05/2025 12:00 AM CDT) 01/05/2025 us Provider Scan IMG ECG ORDERABLES Final Result RESULTING AGENCY from Last 3 Months Insurance MEDICAID [place] Care Teams Marketing And Communications Officer Relationship Specialty Start Date End Date Provider, None [place] PCP - General 08/19/23
--- OUTSIDE RECORDS SUMMARY | 2025-02-09 23:12 | XMS_ITS | Encounter Summary ---
Author Organization [facility] Address 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 AVG GLUCOSE, A1C 111 mg/dL 12/22/2024 7:21 AM CDT [facility] [employer] [facility] Blood Venipuncture / Unknown 12/22/2024 5:35 AM CDT 12/22/2024 6:18 AM CDT [facility] - 12/22/2024 7:21 AM CDT HGB A1C INTERPRETATION NORMAL: <5.7% PRE-DIABETES: 5.7 - 6.4% DIABETES: 6.5% OR GREATER us Ventura Brian MD CHEMISTRY ORDERABLES Final Res ult [facility] [id number] [address] [place] [address] * LIPID PANEL (12/22/2024 5:35 AM CDT) [facility] CHOLESTEROL 132 <200 mg/dL 12/22/2024 7:25 AM CDT [facility] TRIGLYCERIDE 83 <150 mg/dL 12/22/2024 7:25 AM CDT [facility] HDL 45 40 - 59 mg/dL 12/22/2024 7:25 AM CDT [facility] LDL CALCULATED 70 <100 mg/dL 12/22/2024 7:25 AM CDT [facility] NON-HDL CHOLESTEROL 87 <130 mg/dL 12/22/2024 7:25 AM T [facility] Blood Venipuncture / Unknown 12/22/2024 5:35 AM CDT 12/22/2024 6:18 AM CDT [facility] - 12/22/2024 7:25 AM CDT TOTAL [...] Brian MD CHEMISTRY ORDERABLES Final Res ult [facility] - [facility] [id number] [address] [place] [address] documented in this encounter Visit Diagnoses Not on filedocumented in this encounter
--- OUTSIDE RECORDS SUMMARY | 2025-02-09 23:12 | XMS_ITS | Clinical Summary ---
Author Organization [facility] Address [address] [place] [address] Phone Care Team Providers Care Journalism Instructor Name Role Phone Unavailable Primary Care Provider Unavailabl e Allergies No known active allergies Encounters Date Type Department Care Team Description 12/22/2024 Lab Requisition [facility] [address] [place] [address] [place] [phone] Ventura Brian MD from Last 3 Months Social History Tobacco Use Types Packs/Day Years Used Date Smoking Tobacco: Never Assessed Sex and Gender Information Value Date Recorded Sex Assigned at Not on file Legal Sex Male 8:18 AM PATENT PARALEGAL Gender Identity Not on file Sexual Orientation Not on file Last Filed Vital Signs Vital Sign Reading Time Taken Comments Blood Pressure 136/87 06/14/2021 8:27 AM PATENT PARALEGAL Pulse - - Temperature 36.9 C (98.4 F) 06/14/2021 8:27 AM PATENT PARALEGAL Respiratory Rate 18 06/14/2021 8:27 AM PATENT PARALEGAL Oxygen Saturation 98% 06/14/2021 8:27 AM PATENT PARALEGAL Inhaled Oxygen Concentration - - Weight 69.9 kg (154 lb) 06/14/2021 8:27 AM PATENT PARALEGAL Height 15.2 cm (6) 06/14/2021 8:27 AM PATENT PARALEGAL Body Mass Index 3007.61 06/14/2021 8:27 AM PATENT PARALEGAL Plan of Treatment Health Maintenance Due Date [...] 5.5 <=5.6 % 12/22/2024 7:21 AM CDT [facility] EST. AVG GLUCOSE, A1C 111 mg/dL 12/22/2024 7:21 AM CDT [facility] Blood Venipuncture / Unknown 12/22/2024 5:35 AM CDT 12/22/2024 6:18 AM CDT Narrative [facility] - 12/22/2024 7:21 AM CDT HGB A1C INTERPRETATION NORMAL: <5.7% PRE-DIABETES: 5.7 - 6.4% DIABETES: 6.5% OR GREATER us Ventura Brian MD CHEMISTRY ORDERABLES Final Res ult [facility] [id number] [address] [place] [address] * LIPID PANEL (12/22/2024 5:35 AM CDT) [...] 87 <130 mg/dL 12/22/2024 7:25 AM CDT [facility] Blood Venipuncture / Unknown 12/22/2024 5:35 AM CDT 12/22/2024 6:18 AM CDT Narrative [facility] - 12/22/2024 7:25 AM CDT TOTAL [...] ult [facility] [id number] [address] [place] [phone] from Last 3 Months Insurance [facility] MEDICAID
--- OUTSIDE RECORDS SUMMARY | 2025-02-09 23:12 | XMS_ITS | Patient Health Record ---
Author Organization [facility] Address [address] [place] [address] Care Team Providers Care Client Solutions Director Name Role Phone Rocío Castillo Primary Care Provider Nancy Garcia Unavailable [phone] Reason For Referral No Information Social History Sex Assigned At : Social History Observation Description Sex Assigned At Male Encounters Encounter Location Date Provider Diagnosis [address] [place] [address] 10/16/2024 Rocío Castillo [address] [place] [address] 01/29/2025 Arif Habib Plan Of Treatment No Information Insurance Providers Payer Name Payer Address Payer Phone Subscriber Number Group Number Insured Name Patient Relationship to Insured Coverage Start Date Coverage End Date [employer] [address] [phone] [id number] [employer] Best Self - patient is the insured 4
--- OUTSIDE RECORDS SUMMARY | 2025-02-09 23:12 | XMS_ITS ---
Author Organization [facility] Address [address] [place] [address] Care Team Providers Care Plant Utilities Engineer Name Role Phone Rocío Castillo Primary Care Provider [phone] REASON FOR VISIT psych eval, fu from [facility] Social History Sex Assigned At : Social History Observation Description Sex Assigned At Male Encounters Encounter Location Date Provider Diagnosis [address] [place] [address] 10/16/2024 Rocío Castillo Plan Of Treatment No Information Progress Notes * Flaco BESTDOB:[birth year] (34 yo M)Acc No.[id number]:10/16/2024 UNLOCKED PROGRESS NOTE Patient: Flaco LYNN Provider: Lluvia Castillo MSN, UG DESIGNER, YACHT BUILDER-C :1990 A ge:34 Y S ex:Male Date:10/16/2024 Address:[address] [place] [address], [facility], [phone] Subjective: * Chief Complaints: * 1 . psych eval, fu from [facility]. * Medical History: Objective: * Vitals: Assessment: Plan: * Treatment: * * Electronic signature of Stacey Castillo , [id number] on 02/09/2025 at 11:11 PM CDT Sign off status: Pending * Provider: Lluvia Castillo MSN, UG DESIGNER, YACHT BUILDER-C Date: 0 10/16/2024 Generated for Roseann hernandez/Marcos/eTransmitting on: 02/09/2025 11:11 PM RAFIT
[2025-02-09] MEDS: KETOROLAC 15 MG/ML VIAL (*BKC) IV PUSH (23:21)
[2025-02-09 23:28] VITALS: BP 130/79; PULSE 76; RESP 14; O2SAT 98
[2025-02-09 23:29] VITALS: BP 130/79; PULSE 76; RESP 14; O2SAT 98
== END 2025-02-09 23:32 | disposition home or self-care (01) ==
PROVIDERS: Emergency Provider Emergency Medicine
DX: I31.9 Disease of pericardium, unspecified (principal); F32.A Depression, unspecified; R94.31 Abnormal electrocardiogram [ECG] [EKG]
CPT/HCPCS: 36415; 71046; 80053; 83690; 84484; 85025; 85610; 85730; 93005; 96374; 99284; J1885